=== PATIENT | male | born 1935 | race Caucasian/White ===

== ENCOUNTER 2018-04-04 12:33 | Emergency (ER) | payer OTHER ==
[~2018-04-04] VITALS: Ht 198.1 cm; Wt 116.7 kg
[~2018-04-04 12:33] MED LIST: ASPI81TA28 PO; ATOR-22 PO; DOCU-94 PO; DXY100 PO; FRS/40 PO; METO50TA16 PO; NTRGSL/4 UT; POTA20TA13 PO; PREN1CAP7 PO; SENN-48 PO
[2018-04-04 12:43] VITALS: Ht 198.1 cm; Wt 116.7 kg
--- NOTE | 2018-04-04 12:51 | EMERGENCY ROOM VISIT NOTE ---
History Report prepared by Emyibpa: Prasanna Mckeon Under the Supervision of: Dr. Tio Collins M.D. First contact with patient: 12:43 Chief Complaint: NOSE BLEED (MINOR) Stated Complaint: NOSE BLEED History of Present Illness The patient is a 82 year old male who presents to the Emergency Room with complaints of persistent epistaxis that began an hour ago. The patient states he did have an episode of epistaxis last night, but states that the episode had resolved. The patient states that he was washing his face this morning when he noticed his the right side of his nose began to bleed. He reports that when he was washing his face, he did not hit his nose. The patient states he was not able to get the bleeding to stop for an hour. He reports that he currently takes Aspirin and has not had any blood thinners within the last year. The patient denies chest pain, shortness of breath, a headache, and any other pain. No recent trauma. He denies a history of nasal surgeries. The patient reports a history of Parkinson's disease. 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 A total of ten systems were reviewed and were otherwise negative. Past Medical & Surgical Medical Problems: (1) Elevated troponin (2) Hypoxemia Surgical Problems: (1) Aortocoronary bypass status Family History Patient reports no known family medical history. Social History Smoking Status: Never Smoker Housing Status: lives alone Current/Historical Medications Scheduled Aspirin (Aspirin Ec), 162 MG PO HOLD Atorvastatin (Lipitor), 20 MG PO QPM Carbidopa/Levodopa (Sinemet 10MG/100MG), 1 TAB PO TID Donepezil Hydrochloride (Donepezil Hcl), 5 MG PO BID Furosemide (Lasix), 20 MG PO DAILY Metoprolol Tartrate (Lopressor) (Lopressor), 25 MG PO BID Nitroglycerin (Nitrostat), 0.4 MG UT PRN Potassium Chloride Microencaps (Potassium Chloride Er), 1 TAB PO DAILY Allergies Coded Allergies: No Known Allergies (Unverified , 04/04/18) Physical Exam Vital Signs Date Time Temp Pulse Resp B/P (MAP) Pulse Ox O2 Delivery O2 Flow Rate FiO2 04/04/18 13:52 60 20 117/74 95 04/04/18 12:43 36.9 61 20 142/91 95 Room Air Physical Exam Physical Exam GENERAL: He is oriented to person, place, and time. He appears well-developed and well-nourished. He does not appear distressed. ____ HENT: Exam performed. Head: Normocephalic and atraumatic. Right Ear: External ear normal. No mastoid tenderness. Left Ear: External ear normal. No mastoid tenderness. . Nose: No active bleeding from either nare when examined with nasal speculum and head lamp. Mouth/Throat: The oropharynx is clear and moist. No trismus in the jaw. No dental abscesses or uvula swelling. No oropharyngeal exudate or tonsillar abscesses. No blood in posterior pharynx. ____ EYES: Conjunctivae and EOM are normal. Pupils are equal, round, and reactive to light. Right eye exhibits no discharge. Left eye exhibits no discharge. No scleral icterus. ____ NECK: Normal range of motion. Neck supple. No JVD present. No spinous process tenderness present. No carotid bruit present. No rigidity. No tracheal deviation and normal range of motion present. No Brudzinski's sign and no Kernig 's sign noted. ____ CV: Normal rate, regular rhythm, normal heart sounds and intact distal pulses. There is no peripheral edema. Palpable radial pulses bue. ____ PULM/CHEST: Effort normal and breath sounds normal. No respiratory distress. No stridor. He has no wheezes. He has no rales. Chest Wall: He exhibits no tenderness. ____ ABD: The abdomen is soft. Bowel sounds are normal. He has no distension. No mass is present. There is no tenderness. There is no rebound, no guarding, no Ac's sign and no tenderness at McBurney's point. Rovsig negative MUSC/SKEL: Normal range of motion. There is no peripheral edema, tenderness or deformity. LYMPH: No cervical adenopathy. ____ NEURO: He is alert and oriented to person, place, and time. He has normal strength. No cranial nerve deficit or sensory deficit. Coordination and gait normal. GCS eye subscore is 4. GCS verbal subscore is 5. GCS motor subscore is 6. Cerebellar tests wnl. ____ SKIN: Skin is warm and dry. He is not diaphoretic. ____ PSYCH: He has a normal mood and affect. His behavior is normal. Judgment and thought content normal. ____ Medical Decision & Procedures ED Course 1244: The patient was evaluated in room A02. A complete history and physical exam was performed. No active bleeding at this point, we will continue to monitor the patient. 1327: I reevaluated the patient and he is resting comfortably. He is not having a nose bleed. He states he feels fine. I discussed the treatment plan, which he agrees to. The patient will be discharged with a follow up appointment. DISCHARGE - Plan of care discussed with patient and questions answered. The patient was given both verbal and printed discharge instructions. The patient verbalized understanding and ability to comply. The patient is to seek outpatient follow up as noted in the discharge instructions. The patient verbalized understanding and ability to comply. The patient is discharged in stable condition. The patient was instructed to return for worsening symptoms. Medical Decision I reevaluated the patient and he is resting comfortably. He is not having a nose bleed. He states he feels fine. I discussed the treatment plan, which he agrees to. The patient will be discharged with a follow up appointment. DISCHARGE - Plan of care discussed with patient and questions answered. The patient was given both verbal and printed discharge instructions. The patient verbalized understanding and ability to comply. The patient is to seek outpatient follow up as noted in the discharge instructions. The patient verbalized understanding and ability to comply. The patient is discharged in stable condition. The patient was instructed to return for worsening symptoms. Medication Reconcilliation Current Medication List: was personally reviewed by me Blood Pressure Screening Patient's blood pressure: Elevated blood pressure Blood pressure disposition: Referred to PCP Impression Primary Impression: Epistaxis Scribe Attestation The scribe's documentation has been prepared under my direction and personally reviewed by me in its entirety. I confirm that the note above accurately reflects all work, treatment, procedures, and medical decision making performed by me. The chart was completed utilizing [employer] voice recognition software. Grammatical errors, random word insertions, pronoun errors, and incomplete sentences are an occasional consequence of this system due to software limitations, ambient noise, and hardware issues. Any formal questions or concerns about the content, text, or information contained within the body of this dictation should be directly addressed to the physician for clarification. Departure Information Dispostion Home / Self-Care Referrals No Doctor, Assigned (PCP) Forms HOME CARE DOCUMENTATION FORM, IMPORTANT VISIT INFORMATION, WORK / SCHOOL INSTRUCTIONS Patient Instructions ED Nosebleed, [facility] Additional Instructions Return to the emergency department if you know starts bleeding again and does not resolve after applying 30 minutes of direct pressure.
[2018-04-04] MEDS ORDERED: METO25TA56 PO (13:42)
[2018-04-04] MEDS ORDERED: FURO-85 PO (13:42)
[2018-04-04] MEDS ORDERED: DONE1TAB25 PO (13:45)
[2018-04-04] MEDS ORDERED: CARB10TA5 PO (13:45)
[2018-04-04 13:52] VITALS: BP 117/74; PULSE 60; O2SAT 95
== END 2018-04-04 13:52 | disposition home or self-care (01) ==
LOC: EDBD 12:33 → C.EDA 12:34
DX: R04.0 Epistaxis (principal); G20 Parkinson's disease; Z79.82 Long term (current) use of aspirin; Z79.899 Other long term (current) drug therapy; Z95.1 Presence of aortocoronary bypass graft

== ENCOUNTER 2021-05-26 21:41 | Inpatient (IN) ==
[2021-05-26] MEDS ORDERED: ONDANSETRON INJ 2 MG/ML 2 ML VIAL ONE (21:48)
[2021-05-26] MEDS ORDERED: OPTIRAY 320 125ml IV ONE (22:00)
[2021-05-26] MEDS ORDERED: ACETAMINOPHEN 650 MG SUPP PR STA (22:04)
[2021-05-26] MEDS ORDERED: SODIUM CHLORIDE 0.9% 1000ML 500 ML IV ONE (22:04)
--- NOTE | 2021-05-26 22:11 | CT Scan Report ---
CT head/brain wo con CLINICAL HISTORY: 85 years-old Male with Stroke Like Symptoms. Acute strokelike symptoms TECHNIQUE: Multiple axial CT images of the head were obtained without contrast. A dose lowering tech nique was utilized adhering to the principles of ALARA. COMPARISON: CTA head neck of same day, head CT 08/29/2018 FINDINGS: No acute intracranial hemorrhage, midline shift, intracranial mass, hydrocephalus, territorial ischem ia or abnormal extra-axial collection. Age-related involutional changes. White matter hypodensities s uggestive of chronic microvascular ischemic disease. 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 The calvarium is intact. Chronic nasal bone fractures. Unremarkable soft tissues. The paranasal sinus es, mastoid air cells, and middle ear cavities are clear. IMPRESSION: No acute intracranial abnormality. ACT 112: Negative or not required by law. The above report was generated using voice recognition software. It may contain grammatical, syntax o r spelling errors. Electronically signed by: Mariano Wilcox M.D. 05/26/2021 10:09 PM
--- NOTE | 2021-05-26 22:21 | CT Scan Report ---
CT angio neck with con, CT angio head w con CLINICAL HISTORY: 85 years-old Male with Stroke Like Symptoms. Acute strokelike symptoms COMPARISON STUDY: Head CT of same day TECHNIQUE: Following the IV administration of 120 mL of Optiray, CT angiogram of the head and neck wa s performed from the aortic arch to the skull apex. Images are reviewed in the axial, sagittal, and c oronal planes. 3-D MIPS images are created and assessed. IV contrast was administered without complic ation. All measurements were calculated based on NASCET criteria. A dose lowering technique was util ized adhering to the principles of ALARA. 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 The imaged opacified pulmonary arterial tree is unremarka ble. Left subclavian pacer. Atherosclerosis of the thoracic aortic arch. Patency of the innominate an d imaged subclavian arteries. The common carotid arteries are widely patent. Atherosclerotic plaque o f the left greater than right carotid bulbs and proximal cervical segments of the internal carotid ar teries results in less than 50% stenosis bilaterally. Calcified plaque of the cavernous and supraclin oid segments. The middle and anterior cerebral arteries are patent. Hypoplastic right A1 segment. Cod ominant vertebral arteries. 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 The verte bral, basilar and posterior cerebral arteries are patent. origin of the right posterior cerebra l artery. The cerebral venous sinuses are patent. No pneumothorax. The lung apices are clear. Unremarkable soft tissues of the neck. Degenerative lemus es of the spine. Dental caries are noted within the left first mandibular molar. IMPRESSION: 1. 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 2. Atherosclerosis of the carotid bulbs results in less than 50% stenosis bilaterally. 3. Otherwise unremarkable CTA of the head and neck. ACT 112: Negative or not required by law. The above report was generated using voice recognition software. It may contain grammatical, syntax o r spelling errors. Electronically signed by: Mariano Wilcox M.D. 05/26/2021 10:20 PM
[2021-05-26 22:28] LABS: Basophils # (auto) 0.01 K/uL (0-0.2); Basophils % (auto) 0.1 %; Eosinophils # (auto) 0.03 K/uL (0-0.5); Eosinophils % (auto) 0.3 %; Hematocrit (blood only) 38.9 % (42-52); Hemoglobin 13.2 g/dL (14.0-18.0); Immature Granulocytes # (auto) 0.02 K/uL (0.00-0.02); Immature Granulocytes % (auto) 0.2 %; Lymphocytes # (auto) 0.63 K/uL (1.2-3.4); Lymphocytes % (auto) 6.1 %; Mean Corpuscular Hemoglobin 31.7 pg (25-34); Mean Corpuscular Hgb Conc 33.9 g/dL (32-36); Mean Corpuscular Volume 93.5 fL (80-100); Mean Platelet Volume 10.4 fL (7.4-10.4); Monocytes # (auto) 0.57 K/uL (0.11-0.59); Monocytes % (auto) 5.5 %; Neutrophils # (auto) 9.03 K/uL (1.4-6.5); Neutrophils % (auto) 87.8 %; Platelet Count 179 K/uL (130-400); RDW Coefficient of Variation 13.7 % (11.5-14.5); RDW Standard Deviation 46.9 fL (36.4-46.3); Red Blood Count 4.16 M/uL (4.7-6.1); White Blood Count 10.29 K/uL (4.8-10.8)
[2021-05-26 22:30] LABS: Base Excess VBG 0.5 mEq/L; pH VBG 7.42 (7.36-7.41)
--- NOTE | 2021-05-26 22:36 | Emergency Department Note ---
Impression & Plan AMS (altered mental status), Fever, Hypoxia, Acute UTI (urinary tract infection) ED Provider Note NAME: SHARON FRAGOSO AGE: 85 SEX: M : 1935 ARRIVES VIA: Ambulance INFORMANT: Patient, the patient's significant other, EMS personnel ED PROVIDER(S): Theron Calvin DO CHIEF COMPLAINT: Altered mental status HPI: The patient is an 85-year-old male who presented to the emergency department for an evaluation of altered mental status. The patient was made a stroke alert prior to arrival. Reportedly the patient had nausea vomiting and was falling to the left. The patient's significant other does give most of the history. Apparently the patient was in his normal state of health. He went to lay down at approximately 7 PM. He was then found between 8:20 PM and 8:30 PM by his significant other and was noted to be confused from his baseline. He has had multiple episodes of emesis. He was made a stroke alert prior to arrival and taken directly to CT. The patient himself offers no complaints. He is denying having any chest pain. He denies having any headaches. He denies having any abdominal pain. He said no recent urinary tract symptoms. He was helping his significant other to work earlier in the day and appeared to be at his baseline. The patient's symptoms are moderate to severe. ROS: See above HPI for pertinent positives & negatives. A total of 10 systems reviewed and were otherwise negative. PAST MEDICAL HISTORY: See Below PAST SURGICAL HISTORY: See Below FAMILY HISTORY: See Below SOCIAL HISTORY: See Below HOME MEDICATIONS: See Below ALLERGIES: See Below VITALS: See Below PHYSICAL EXAMINATION: GENERAL: The patient is awake and looking around the room but he seems somewhat listless. He answers questions slowly. EYES: The conjunctivae are clear. The pupils are round and reactive. EARS, NOSE, MOUTH AND THROAT: The nose is without any evidence of any deformity. NECK: The neck is nontender and supple. RESPIRATORY: Diminished breath sounds are noted throughout. There were rales at the right base. CARDIOVASCULAR: Regular rate and rhythm was noted to auscultation. There was a rub noted to auscultation. GASTROINTESTINAL: The abdomen is soft. Abdomen is nontender. MUSCULOSKELETAL/EXTREMITIES: There is no evidence of gross deformity full range of motion is noted in the hips and shoulders. SKIN: Skin was cool and dry. There is pedal edema bilaterally. NEUROLOGIC: Patient is answering questions. He appears to be oriented to person and place. The patient recognizes his and calls her by name. MEDICAL DECISION MAKING: The patient is an 85-year-old male who presented to the emergency department for an evaluation of altered mental status and possible strokelike symptoms. The patient was made a stroke alert prior to arrival. The patient was noted to have a fever. I discussed the patient's laboratory and radiographic studies with him as well as his significant other. The patient was hypoxic and had abnormal lung sounds. Chest x-ray did not show anything that looked consistent with a definite pneumonia. He also appeared to have cloudy urine and hematuria. It is possible this represents urinary tract infection. He was treated with IV fluids as well as IV antibiotics. The IV antibiotic choice was one that would cover both pulmonary as well as urinary source. I discussed the patient's condition with the on-call [facility]. They have agreed to evaluate the patient in the emergency department for further management and disposition. At this time the patient would not be a candidate for TPA once we realized his last known well time was 7 PM. He also does not appear to have a definite large vessel occlusion. Triage Nursing notes reviewed. Prior medical records reviewed Vital Signs: reviewed and remarkable for hypoxia. Differential diagnosis: Infection, hypoglycemia, electrolyte abnormalities, overdose, toxicologic, cardiac sources, intracerebral event, neurologic, trauma, as well as other pathologies. ER treatment provided: See below Diagnostics interpreted by me: ECG: EKG was obtained in the emergency department. My interpretation is sinus rhythm at 79 bpm. There is a first-degree AV block noted. Right bundle branch block pattern was noted. This was compared to a tracing from August 29, 2018. Paced atrial rhythm was noted on the previous tracing otherwise no significant changes are noted. Cardiac Monitoring: An order was placed for continuous cardiac monitoring. The monitor shows a rate of 65 bpm with sinus rhythm. Laboratory studies: As stated above and show below. Imaging studies: See below Consultation(s): I discussed this case with Dr. Alexander who is on-call for the [facility] neurology group. At this time the patient appears to have more of a septic picture. I discussed this case with Dr. Valenzuela who is on-call for the [facility] group. They will evaluate the patient in the emergency department for further management and disposition. Past Med/Surg History Medical History Elevated troponin Hypoxemia Pacemaker Pneumonia Surgical History Aortocoronary bypass status Hx of heart bypass surgery Social History Smoking Status: Never smoker Preferred Language: Pashto Communication Ability: Effective Visual Impairment: No Limitations Hearing Ability: Normal Feels Safe at Home: Yes Allergies Allergies Allergy/AdvReac Type Severity Reaction Status Date / Time No Known Allergies Allergy Unverified 05/26/21 22:15 Home Meds Home Medications Medication Instructions Recorded Confirmed aspirin [Aspir-Low] 81 mg PO DAILY 05/26/21 05/26/21 atorvastatin [Lipitor] 20 mg PO DAILY 05/26/21 05/26/21 carbidopa-levodopa 1 tab PO BID 05/26/21 05/26/21 donepezil 5 mg PO DAILY 05/26/21 05/26/21 furosemide 20 mg PO DAILY 05/26/21 05/26/21 guar gum [Benefiber (guar gum)] 1 tbsp PO DAILY 05/26/21 05/26/21 metoprolol tartrate 25 mg PO DAILY 05/26/21 05/26/21 Results & Data (ED) Vital Signs Vital Signs - 24 hr 05/26/21 22:02 05/26/21 22:17 05/26/21 22:22 Temperature 38.8 C H Temperature Source Temporal Artery Scan Pulse Rate 91 H 81 76 Pulse Rate [Right Finger] Pulse Rate from SpO2 Sensor 76 Respiratory Rate 16 Respiratory Depth Blood Pressure 136/78 138/79 Blood Pressure [Right Arm] Blood Pressure Mean 97 98 Blood Pressure Mean [Right Arm] Blood Pressure Position Lying Blood Pressure Position [Right Arm] Pulse Oximetry 88 L 90 Oxygen Delivery Method Nasal Cannula Oxygen Flow Rate 3 Sepsis Recent Fever Within 48 Hours Yes Sepsis New/Unexplained Change in Mental Status Yes Sepsis Action Taken by Nursing Physician Notified Oxygen Flow Rate - Titration 4 Pulse Oximetry Post Tiitration 90 05/26/21 22:30 05/26/21 22:37 05/26/21 22:45 Temperature Temperature Source Pulse Rate 72 63 Pulse Rate [Right Finger] 71 Pulse Rate from SpO2 Sensor 63 57 L Respiratory Rate 18 Respiratory Depth Normal Blood Pressure 154/82 H 120/68 Blood Pressure [Right Arm] 154/82 H Blood Pressure Mean 106 85 Blood Pressure Mean [Right Arm] 106 Blood Pressure Position Blood Pressure Position [Right Arm] Lying Pulse Oximetry 91 93 92 Oxygen Delivery Method Nasal Cannula Oxygen Flow Rate 3 4 3 Sepsis Recent Fever Within 48 Hours Sepsis New/Unexplained Change in Mental Status Sepsis Action Taken by Nursing Oxygen Flow Rate - Titration Pulse Oximetry Post Tiitration 05/27/21 00:10 Temperature 37.1 C Temperature Source Oral Pulse Rate Pulse Rate [Right Finger] Pulse Rate from SpO2 Sensor Respiratory Rate Respiratory Depth Blood Pressure Blood Pressure [Right Arm] Blood Pressure Mean Blood Pressure Mean [Right Arm] Blood Pressure Position Blood Pressure Position [Right Arm] Pulse Oximetry Oxygen Delivery Method Oxygen Flow Rate Sepsis Recent Fever Within 48 Hours Sepsis New/Unexplained Change in Mental Status Sepsis Action Taken by Nursing Oxygen Flow Rate - Titration Pulse Oximetry Post Tiitration Home Medications Current Medication List: was personally reviewed by me Laboratory Data Attestation: I reviewed the patient's lab results. Result diagrams: 05/26/21 22:05 05/26/21 22:05 Lab Results 05/26/21 05/26/21 05/26/21 Range/Units 22:05 22:05 22:05 WBC 10.29 (4.8-10.8) K/uL RBC 4.16 L (4.7-6.1) M/uL Hgb 13.2 L (14.0-18.0) g/dL Hct 38.9 L (42-52) % MCV 93.5 (80-100) fL MCH 31.7 (25-34) pg MCHC 33.9 (32-36) g/dL RDW Std Deviation 46.9 H (36.4-46.3) fL RDW Coeff of Lacey 13.7 (11.5-14.5) % Plt Count 179 (130-400) K/uL MPV 10.4 (7.4-10.4) fL Immature Gran % (Auto) 0.2 % Neut % (Auto) 87.8 % Lymph % (Auto) 6.1 % [place] % (Auto) 5.5 % Eos % (Auto) 0.3 % Baso % (Auto) 0.1 % Neut # (Auto) 9.03 H (1.4-6.5) K/uL Lymph # (Auto) 0.63 L (1.2-3.4) K/uL [place] # (Auto) 0.57 (0.11-0.59) K/uL Eos # (Auto) 0.03 (0-0.5) K/uL Baso # (Auto) 0.01 (0-0.2) K/uL Immature Gran # (Auto) 0.02 (0.00-0.02) K/uL PT 11.1 (9.0-12.0) Seconds INR 1.1 (0.9-1.1) APTT 24.8 (21.0-31.0) Seconds PTT Ratio 0.9 VBG pH (7.36-7.41) VBG pCO2 (38-50) mmHg VBG pO2 mmHg VBG HCO3 mmol/L VBG O2 Saturation % VBG Base Excess mEq/L Barometric Pressure mm/Hg Sodium 138 (136-145) mmol/L Potassium 3.4 L (3.5-5.1) mmol/L Chloride 105 (98-107) mmol/L Carbon Dioxide 27 (21-32) mmol/L Anion Gap 6.0 (3-11) BUN 18 (7-18) mg/dl Creatinine 0.93 (0.6-1.4) mg/dl Est Cr Clr Drug Dosing 75.1 ml/min Est GFR ( Amer) 86.5 ml/min Est GFR (Non-Af Amer) 74.6 ml/min BUN/Creatinine Ratio 18.7 (10-20) Glucose 126 H (70-99) mg/dl POC Glucose (70-99) mg/dl Lactate (0.4-2.0) mmol/L Calcium 8.5 (8.5-10.1) mg/dl Magnesium 1.6 L (1.8-2.4) mg/dl Total Bilirubin 0.6 (0.2-1) mg/dl AST 16 (15-37) U/L ALT 16 (12-78) U/L Alkaline Phosphatase 76 (45-117) U/L Troponin I 0.016 (0-0.045) ng/ml Total Protein 6.9 (6.4-8.2) gm/dl Albumin 3.2 L (3.4-5.0) gm/dl Globulin 3.6 (2.5-4.0) gm/dl Albumin/Globulin Ratio 0.9 (0.9-2) Urine Color Urine Appearance (Clear) Urine pH (4.5-7.5) Ur Specific [place] (1.000-1.030) Urine Protein (Negative) Urine Glucose (UA) (Negative) Urine Ketones (Negative) Urine Blood (Negative) Urine Nitrite (Negative) Urine Bilirubin (Negative) Urine Urobilinogen (Negative) Ur Leukocyte Esterase (Negative) Urine WBC (Auto) (0-5) /hpf Urine RBC (Auto) (0-4) /hpf U Hyaline Cast (Auto) (0-5) /lpf U Epithel Cells (Auto) (0-5) /lpf Urine Bacteria (Auto) (Negative) Ur Renal Epithelial Cell COVID-19 Eval Order SARS-CoV-2 (PCR) (Negative) 05/26/21 05/26/21 05/26/21 Range/Units 22:18 22:18 22:19 WBC (4.8-10.8) K/uL RBC (4.7-6.1) M/uL Hgb (14.0-18.0) g/dL Hct (42-52) % MCV (80-100) fL MCH (25-34) pg MCHC (32-36) g/dL RDW Std Deviation (36.4-46.3) fL RDW Coeff of Lacey (11.5-14.5) % Plt Count (130-400) K/uL MPV (7.4-10.4) fL Immature Gran % (Auto) % Neut % (Auto) % Lymph % (Auto) % [place] % (Auto) % Eos % (Auto) % Baso % (Auto) % Neut # (Auto) (1.4-6.5) K/uL Lymph # (Auto) (1.2-3.4) K/uL [place] # (Auto) (0.11-0.59) K/uL Eos # (Auto) (0-0.5) K/uL Baso # (Auto) (0-0.2) K/uL Immature Gran # (Auto) (0.00-0.02) K/uL PT (9.0-12.0) Seconds INR (0.9-1.1) APTT (21.0-31.0) Seconds PTT Ratio VBG pH 7.42 H (7.36-7.41) VBG pCO2 39 (38-50) mmHg VBG pO2 45 mmHg VBG HCO3 25 mmol/L VBG O2 Saturation 84.0 % VBG Base Excess 0.5 mEq/L Barometric Pressure 732.7 mm/Hg Sodium (136-145) mmol/L Potassium (3.5-5.1) mmol/L Chloride (98-107) mmol/L Carbon Dioxide (21-32) mmol/L Anion Gap (3-11) BUN (7-18) mg/dl Creatinine (0.6-1.4) mg/dl Est Cr Clr Drug Dosing ml/min Est GFR ( Amer) ml/min Est GFR (Non-Af Amer) ml/min BUN/Creatinine Ratio (10-20) Glucose (70-99) mg/dl POC Glucose 157 H (70-99) mg/dl Lactate 2.1 H* (0.4-2.0) mmol/L Calcium (8.5-10.1) mg/dl Magnesium (1.8-2.4) mg/dl Total Bilirubin (0.2-1) mg/dl AST (15-37) U/L ALT (12-78) U/L Alkaline Phosphatase (45-117) U/L Troponin I (0-0.045) ng/ml Total Protein (6.4-8.2) gm/dl Albumin (3.4-5.0) gm/dl Globulin (2.5-4.0) gm/dl Albumin/Globulin Ratio (0.9-2) Urine Color Urine Appearance (Clear) Urine pH (4.5-7.5) Ur Specific [place] (1.000-1.030) Urine Protein (Negative) Urine Glucose (UA) (Negative) Urine Ketones (Negative) Urine Blood (Negative) Urine Nitrite (Negative) Urine Bilirubin (Negative) Urine Urobilinogen (Negative) Ur Leukocyte Esterase (Negative) Urine WBC (Auto) (0-5) /hpf Urine RBC (Auto) (0-4) /hpf U Hyaline Cast (Auto) (0-5) /lpf U Epithel Cells (Auto) (0-5) /lpf Urine Bacteria (Auto) (Negative) Ur Renal Epithelial Cell COVID-19 Eval Order SARS-CoV-2 (PCR) (Negative) 05/26/21 05/26/21 05/26/21 Range/Units 22:43 Unknown Unknown WBC (4.8-10.8) K/uL RBC (4.7-6.1) M/uL Hgb (14.0-18.0) g/dL Hct (42-52) % MCV (80-100) fL MCH (25-34) pg MCHC (32-36) g/dL RDW Std Deviation (36.4-46.3) fL RDW Coeff of Lacey (11.5-14.5) % Plt Count (130-400) K/uL MPV (7.4-10.4) fL Immature Gran % (Auto) % Neut % (Auto) % Lymph % (Auto) % [place] % (Auto) % Eos % (Auto) % Baso % (Auto) % Neut # (Auto) (1.4-6.5) K/uL Lymph # (Auto) (1.2-3.4) K/uL [place] # (Auto) (0.11-0.59) K/uL Eos # (Auto) (0-0.5) K/uL Baso # (Auto) (0-0.2) K/uL Immature Gran # (Auto) (0.00-0.02) K/uL PT (9.0-12.0) Seconds INR (0.9-1.1) APTT (21.0-31.0) Seconds PTT Ratio VBG pH (7.36-7.41) VBG pCO2 (38-50) mmHg VBG pO2 mmHg VBG HCO3 mmol/L VBG O2 Saturation % VBG Base Excess mEq/L Barometric Pressure mm/Hg Sodium (136-145) mmol/L Potassium (3.5-5.1) mmol/L Chloride (98-107) mmol/L Carbon Dioxide (21-32) mmol/L Anion Gap (3-11) BUN (7-18) mg/dl Creatinine (0.6-1.4) mg/dl Est Cr Clr Drug Dosing ml/min Est GFR ( Amer) ml/min Est GFR (Non-Af Amer) ml/min BUN/Creatinine Ratio (10-20) Glucose (70-99) mg/dl POC Glucose (70-99) mg/dl Lactate (0.4-2.0) mmol/L Calcium (8.5-10.1) mg/dl Magnesium (1.8-2.4) mg/dl Total Bilirubin (0.2-1) mg/dl AST (15-37) U/L ALT (12-78) U/L Alkaline Phosphatase (45-117) U/L Troponin I (0-0.045) ng/ml Total Protein (6.4-8.2) gm/dl Albumin (3.4-5.0) gm/dl Globulin (2.5-4.0) gm/dl Albumin/Globulin Ratio (0.9-2) Urine Color Yellow Urine Appearance Clear (Clear) Urine pH 5.0 (4.5-7.5) Ur Specific [place] 1.045 H (1.000-1.030) Urine Protein Negative (Negative) Urine Glucose (UA) Negative (Negative) Urine Ketones Negative (Negative) Urine Blood 3+ H (Negative) Urine Nitrite Negative (Negative) Urine Bilirubin Negative (Negative) Urine Urobilinogen Negative (Negative) Ur Leukocyte Esterase 1+ H (Negative) Urine WBC (Auto) 5-10 H (0-5) /hpf Urine RBC (Auto) >30 H (0-4) /hpf U Hyaline Cast (Auto) 1-5 (0-5) /lpf U Epithel Cells (Auto) >30 H (0-5) /lpf Urine Bacteria (Auto) Negative (Negative) Ur Renal Epithelial Cell Not Reportable COVID-19 Eval Order Covid19 at [facility] SARS-CoV-2 (PCR) NEGATIVE (Negative) Administered Medications Discontinued Medications Acetaminophen (Acetaminophen 650 Mg Supp) 650 mg LA NOW STA Stop: 05/26/21 22:05 Last Admin: 05/26/21 22:30 Dose: 650 mg Documented by: [id number] Sodium Chloride (Nss 1000ml) 500 mls @ 999 mls/hr IV .Q31M ONE Stop: 05/26/21 22:34 Last Infusion: 05/26/21 23:00 Dose: 0 mls/hr Documented by: [id number] Admin: 05/26/21 22:23 Dose: 999 mls/hr Documented by: [id number] Sodium Chloride (Nss) 500 mls @ 999 mls/hr IV .Q31M ONE Stop: 05/26/21 23:27 Last Infusion: 05/27/21 00:02 Dose: 0 mls/hr Documented by: [id number] Admin: 05/26/21 23:07 Dose: 999 mls/hr Documented by: [id number] Piperacillin Sod/Tazobactam Sod (Zosyn) 4.5 gm in 120 mls @ 240 mls/hr IV NOW ONE Stop: 05/26/21 23:26 Last Infusion: 05/27/21 00:00 Dose: 0 mls/hr Documented by: [id number] Admin: 05/26/21 23:07 Dose: 240 mls/hr Documented by: [id number] Promethazine HCl (Phenergan) 6.25 mg in 50.25 mls @ 201 mls/hr IV NOW STA Stop: 05/26/21 23:16 Last Infusion: 05/27/21 00:01 Dose: 0 mls/hr Documented by: [id number] Admin: 05/26/21 23:30 Dose: 201 mls/hr Documented by: [id number] Ioversol (Optiray 320 125ml) 120 ml IV ONCE ONE Stop: 05/26/21 22:01 Last Admin: 05/26/21 22:01 Dose: 120 ml Documented by: [id number] Ondansetron HCl (Ondansetron Inj 2 Mg/Ml 2 Ml Vial) Confirm Administered Dose 4 mg .ROUTE .STK-MED ONE Stop: 05/26/21 21:49 Last Admin: 05/26/21 22:23 Dose: 4 mg Documented by: [id number] Imaging Data Radiologist's Impression: Chest X-Ray 05/26/21 21:39 XR chest 1V portable HISTORY: 85 years-old Male Stroke Like Symptoms acute strokelike symptoms COMPARISON: Chest radiograph 11/03/2015 TECHNIQUE: Portable AP view of the chest FINDINGS: Cardiac silhouette is enlarged. Prior median sternotomy with CABG. Left subclavian pacer. Chronic interstitial coarsening. No pneumothorax, large pleural effusion or overt pulmonary edema. Lateral left lung base opacity suggests atelectasis/scarring. Surgical clips project over the abdominal left upper quadrant. Degenerative changes of the shoulders and spine. IMPRESSION: Cardiomegaly without acute process. ACT 112: Negative or not required by law. The above report was generated using voice recognition software. It may contain grammatical, syntax or spelling errors. Electronically signed by: Mariano Wilcox M.D. 05/26/2021 10:[address] 05/26/21 21:39 CT head/brain wo con CLINICAL HISTORY: 85 years-old Male with Stroke Like Symptoms. Acute strokelike symptoms TECHNIQUE: Multiple axial CT images of the head were obtained without contrast. A dose lowering technique was utilized adhering to the principles of ALARA. COMPARISON: CTA head neck of same day, head CT 08/29/2018 FINDINGS: No acute intracranial hemorrhage, midline shift, intracranial mass, hydrocephalus, territorial ischemia or abnormal extra-axial collection. Age- related involutional changes. White matter hypodensities suggestive of chronic microvascular ischemic disease. 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 The calvarium is intact. Chronic nasal bone fractures. Unremarkable soft tissues. The paranasal sinuses, mastoid air cells, and middle ear cavities are clear. IMPRESSION: No acute intracranial abnormality. ACT 112: Negative or not required by law. The above report was generated using voice recognition software. It may contain grammatical, syntax or spelling errors. Electronically signed by: Mariano Wilcox M.D. 05/26/2021 10:09 PM Head CTA 05/26/21 21:39 CT angio neck with con, CT angio head w con CLINICAL HISTORY: 85 years-old Male with Stroke Like Symptoms. Acute strokelike symptoms COMPARISON STUDY: Head CT of same day TECHNIQUE: Following the IV administration of 120 mL of Optiray, CT angiogram of the head and neck was performed from the aortic arch to the skull apex. Images are reviewed in the axial, sagittal, and coronal planes. 3-D MIPS images are created and assessed. IV contrast was administered without complication. All measurements were calculated based on NASCET criteria. A dose lowering technique was utilized adhering to the principles of ALARA. 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 The imaged opacified pulmonary arterial tree is unremarkable. Left subclavian pacer. Atherosclerosis of the thoracic aortic arch. Patency of the innominate and imaged subclavian arteries. The common carotid arteries are widely patent. Atherosclerotic plaque of the left greater than right carotid bulbs and proximal cervical segments of the internal carotid arteries results in less than 50% stenosis bilaterally. Calcified plaque of the cavernous and supraclinoid segments. The middle and anterior cerebral arteries are patent. Hypoplastic right A1 segment. Codominant vertebral arteries. 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 The vertebral, basilar and posterior cerebral arteries are patent. origin of the right posterior cerebral artery. The cerebral venous sinuses are patent. No pneumothorax. The lung apices are clear. Unremarkable soft tissues of the neck. Degenerative changes of the spine. Dental caries are noted within the left first mandibular molar. IMPRESSION: 1. 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 2. Atherosclerosis of the carotid bulbs results in less than 50% stenosis bilaterally. 3. Otherwise unremarkable CTA of the head and neck. ACT 112: Negative or not required by law. The above report was generated using voice recognition software. It may contain grammatical, syntax or spelling errors. Electronically signed by: Mariano Wilcox M.D. 05/26/2021 10:20 PM Neck CTA 05/26/21 21:39 CT angio neck with con, CT angio head w con CLINICAL HISTORY: 85 years-old Male with Stroke Like Symptoms. Acute strokelike symptoms COMPARISON STUDY: Head CT of same day TECHNIQUE: Following the IV administration of 120 mL of Optiray, CT angiogram of the head and neck was performed from the aortic arch to the skull apex. Images are reviewed in the axial, sagittal, and coronal planes. 3-D MIPS images are created and assessed. IV contrast was administered without complication. All measurements were calculated based on NASCET criteria. A dose lowering technique was utilized adhering to the principles of ALARA. 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 The imaged opacified pulmonary arterial tree is unremarkable. Left subclavian pacer. Atherosclerosis of the thoracic aortic arch. Patency of the innominate and imaged subclavian arteries. The common carotid arteries are widely patent. Atherosclerotic plaque of the left greater than right carotid bulbs and proximal cervical segments of the internal carotid arteries results in less than 50% stenosis bilaterally. Calcified plaque of the cavernous and supraclinoid segments. The middle and anterior cerebral arteries are patent. Hypoplastic right A1 segment. Codominant vertebral arteries. 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 The vertebral, basilar and posterior cerebral arteries are patent. origin of the right posterior cerebral artery. The cerebral venous sinuses are patent. No pneumothorax. The lung apices are clear. Unremarkable soft tissues of the neck. Degenerative changes of the spine. Dental caries are noted within the left first mandibular molar. IMPRESSION: 1. 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 2. Atherosclerosis of the carotid bulbs results in less than 50% stenosis bilaterally. 3. Otherwise unremarkable CTA of the head and neck. ACT 112: Negative or not required by law. The above report was generated using voice recognition software. It may contain grammatical, syntax or spelling errors. Electronically signed by: Mariano Wilcox M.D. 05/26/2021 10:20 PM Discharge Plan Visit Data Chief Complaint: Stroke/CVA Symptoms Stated Complaint: Stroke Alert ED Provider: Theron Calvin Discharge Problem: AMS (altered mental status), Fever, Hypoxia, Acute UTI (urinary tract infection) Patient Disposition: Admitted As Inpatient Condition: Good Forms Stand Alone Forms: My [facility] Prescriptions Prescriptions: No Action atorvastatin [Lipitor] 20 mg tablet 20 mg PO DAILY RF: 0 donepezil 5 mg tablet 5 mg PO DAILY RF: 0 aspirin [Aspir-Low] 81 mg Tablet,Delayed Release (Dr/Ec) 81 mg PO DAILY RF: 0 Benefiber (guar gum) Packet 1 tbsp PO DAILY RF: 0 furosemide 20 mg tablet 20 mg PO DAILY RF: 0 carbidopa-levodopa 25-100 mg tablet 1 tab PO BID RF: 0 metoprolol tartrate 25 mg tablet 25 mg PO DAILY RF: 0 Referrals Referrals: Claribel Gaines MD [Primary Care Provider] - Discharge Problem: AMS (altered mental status) Qualifiers: Altered mental status type: unspecified Qualified Code(s): R41.82 - Altered mental status, unspecified Fever Qualifiers: Fever type: unspecified Qualified Code(s): R50.9 - Fever, unspecified
[2021-05-26 22:38] LABS: INR 1.1 (0.9-1.1); Partial Thromboplastin Ratio 0.9; Partial Thromboplastin Time 24.8 Seconds (21.0-31.0); Prothrombin Time 11.1 Seconds (9.0-12.0)
[2021-05-26 22:45] LABS: Albumin Level 3.2 gm/dl (3.4-5.0); BUN Creatinine Ratio 18.7 (10-20); Calcium 8.5 mg/dl (8.5-10.1); Creatinine Clr Calc Pharmacy 75.1 ml/min; Est GFR (African American) 86.5 ml/min; Est GFR (Non-African American) 74.6 ml/min; Magnesium 1.6 mg/dl (1.8-2.4); Potassium 3.4 mmol/L (3.5-5.1)
--- NOTE | 2021-05-26 22:46 | XRay Report ---
XR chest 1V portable HISTORY: 85 years-old Male Stroke Like Symptoms acute strokelike symptoms COMPARISON: Chest radiograph 11/03/2015 TECHNIQUE: Portable AP view of the chest FINDINGS: Cardiac silhouette is enlarged. Prior median sternotomy with CABG. Left subclavian pacer. Chronic int erstitial coarsening. No pneumothorax, large pleural effusion or overt pulmonary edema. Lateral left lung base opacity suggests atelectasis/scarring. Surgical clips project over the abdominal left upper quadrant. Degenerative changes of the shoulders and spine. IMPRESSION: Cardiomegaly without acute process. ACT 112: Negative or not required by law. The above report was generated using voice recognition software. It may contain grammatical, syntax o r spelling errors. Electronically signed by: Mariano Wilcox M.D. 05/26/2021 10:45 PM
[2021-05-26 22:49] LABS: Albumin Globulin Ratio 0.9 (0.9-2); Bilirubin,Total 0.6 mg/dl (0.2-1); Globulin 3.6 gm/dl (2.5-4.0); Total Protein 6.9 gm/dl (6.4-8.2); Troponin I 0.016 ng/ml (0-0.045)
[2021-05-26] MEDS ORDERED: SODIUM CHLORIDE 0.9% 500 ML IV ONE (22:57)
[2021-05-26] MEDS ORDERED: PIPERACILL/TAZOBAC CONSULT ACTIVE PRN (22:57)
[2021-05-26] MEDS ORDERED: PIPERACILLIN/TAZOBACTAM 4.5 GM/120 ML BAG IV ONE (22:57)
[2021-05-26] MEDS ORDERED: PROMETHAZINE 6.25 MG/50.25 ML BAG IV STA (23:02)
[2021-05-26 23:11] LABS: Appearance Urine Clear (Clear); Bacteria Urine Automated Negative (Negative); Bilirubin Urine Negative (Negative); Blood Urine 3+ (Negative); Color Urine Yellow; Epithelial Cell Urine Auto >30 /lpf (0-5); Glucose Urine UA Negative (Negative); Ketones Urine Negative (Negative); Leukocyte Esterase Urine 1+ (Negative); Nitrite Urine Negative (Negative); Protein Urine Negative (Negative); RBC Urine Automated >30 /hpf (0-4); Specific Gravity Urine 1.045 (1.000-1.030); Urobilinogen Urine Negative (Negative)
[2021-05-27] MEDS ORDERED: ONDANSETRON INJ 2 MG/ML 2 ML VIAL IV PRN (03:34)
[2021-05-27] MEDS ORDERED: VANCOMYCIN HCL 1,000 MG in SODIUM CHLORIDE 0.9% 250 ML IV SCH (03:34)
[2021-05-27] MEDS ORDERED: VANCOMYCIN CONSULT ACTIVE PRN (03:34)
[2021-05-27] MEDS ORDERED: PHARMACIST DISCHARGE MED REC CONSULT PRN (03:34)
[2021-05-27] MEDS ORDERED: POLYETHYLENE (MIRALAX) 17 GM PACK PO PRN (03:34)
[2021-05-27] MEDS ORDERED: ACETAMINOPHEN 325 MG TAB PO PRN (03:34)
[2021-05-27] MEDS ORDERED: NITROGLYCERIN SL 0.4 MG/TAB TAB SL PRN (03:34)
[2021-05-27] MEDS ORDERED: SODIUM CHLORIDE 0.9% 1000ML 1,000 ML IV SCH (03:34)
--- NOTE | 2021-05-27 03:48 | History and Physical Report ---
DATE OF ADMISSION: 05/27/2021. CHIEF COMPLAINT: Confusion. HISTORY OF PRESENT ILLNESS: This is an 85-year-old male with past medical history significant for hyperlipidemia, dyspnea on exertion, history of pleural effusion, history of VT, history of atrial fibrillation, aortic aneurysm, hypertension, syncope, sinus bradycardia, severe aortic stenosis s/p bioprosthetic valve , aortic replacement for aortic aneurysm ,status post pacemaker/ICD, Lewy body dementia, history of retinal hemorrhage, macular degeneration, acute hemolytic anemia. Lives at home with his . Ambulatory status is not that great as per the . Today he went to see his neurologist for his Lewy body dementia and he also complains of hallucinations at the nighttime, and in the morning. He was advised to take Seroquel, but he declined, and advised to increase his dose of Aricept and also Sinemet, but he seems to have declined, and there is a plan to see neuropsychologist also. After coming home, as per the he was fine. The last she talked to him at 7:00 p.m. After that, the next time she saw him was around 8:20 p.m. and he was very shaky, unsteady, and she could not understand what he was talking and he was brought to the hospital. 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 Currently, the patient is drowsy, not able to get any history from the patient. He can move his extremities to stimuli. says otherwise he did not complain of any headache or neck pain or any chest pain. He has a lot of vomiting during this episode, but no blood in the vomitus. She thinks she saw some hematuria early in the morning when he wiped. No complaints of any pain. Generally, his appetite is okay. He eats regular food. Currently, hemodynamics are stable. ALLERGIES: No known drug allergies. PAST MEDICAL HISTORY: As mentioned above. PAST SURGICAL HISTORY: Balloon angioplasty, CABG, coronary angiography, pacemaker, repair of detached retina. MEDICATIONS: The patient is on aspirin 81 mg p.o. daily, Lipitor 20 mg p.o. daily, carbidopa/levodopa 1 tablet p.o. b.i.d., donepezil 5 mg p.o. daily, Lasix 20 mg p.o. daily, Benefiber 1 tablespoon p.o. daily, metoprolol tartrate 25 mg p.o. daily. FAMILY HISTORY: Significant for sister has stomach cancer; mother has lupus. SOCIAL HISTORY: , no smoking. Alcohol occasionally. No drug use. REVIEW OF SYSTEMS: As per HPI. Review of systems is unobtainable at this time as the patient is drowsy and confused. PHYSICAL EXAMINATION: VITAL SIGNS: Temperature max 38.8, pulse of 63, respiratory rate 18, blood pressure 120/68, oxygen 92% on nasal cannula. HEENT: Head atraumatic. Could not examine the pupils as the patient has difficulty opening the eyes. No obvious facial droop seen. NECK: No JVD. No neck masses seen. CARDIOVASCULAR: S1 and S2 heard. Regular rate and rhythm. No murmur, no gallop. RESPIRATORY SYSTEM: Normal AP diameter. No accessory muscle use. No wheezing, no crackles. ABDOMEN: Soft. Bowel sounds present. No distention. CENTRAL NERVOUS SYSTEM: Very drowsy. Moves extremities on touch stimuli. EXTREMITIES: No edema, no erythema. LABORATORY DATA: WBC 10.2, hemoglobin 13.2, hematocrit 38.9, platelets 179. PT 11.1, INR 1.1, APTT 24.8. Venous blood gas, pH of 7.42, pCO2 of 39, pO2 of 45, oxygen 84%. Sodium 138, potassium 3.4, chloride 105, bicarbonate 27, BUN 18, creatinine 0.9, serum glucose 126. Lactate 1.6, magnesium 1.6, total bilirubin 0.6, AST 16, ALT 16, alkaline phosphatase 76, troponin I of 0.016. Urinalysis, +3 blood, +1 leukocyte esterase. SARS-CoV-2 PCR negative. 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 CT scan of the head without contrast shows no acute intracranial abnormality. Chest x-ray, cardiomegaly without acute process. EKG: Sinus rhythm with first-degree AV block with right bundle-branch block, T- wave inversion seen in inferior leads and anterior leads. ASSESSMENT AND PLAN: This is an 85-year-old male who has Lewy body dementia, history of coronary artery disease, hyperlipidemia, Parkinson's, who was brought in because of altered mental status. 1. Altered mental status: The patient was shaking at home and confused. 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 He was empirically treated with Zosyn. We will also add vancomycin and follow the cultures. Gentle fluids. Monitor in the tele floor. We will also do a full stroke workup with echo. Speech evaluation, PT/OT Evaluation. The patient has pacemaker. We will order MRI scan if pacemaker is mri compatible.. The patient is already on aspirin and statin at home. We will also get a neurology consult in the a.m. for further recommendations. Closely monitor in the tele floor. 2. Hypokalemia and hypomagnesemia: Will replace. 3. History of coronary artery disease: Status post coronary artery bypass graft and on statin, aspirin, and beta ban. Will follow the echocardiogram. 4. History of atrial fibrillation: On metoprolol, not on any anticoagulation. 5. History of Lewy body dementia: On Aricept. Will monitor for any delirium, . 6. Parkinson's: On Sinemet. 7. Hypertension: On metoprolol. Will monitor the blood pressure. 8. Deep venous thrombosis prophylaxis: Sequential compression devices for now. DISPOSITION: Closely monitor in tele floor. Code status DNR/DNI as per the discussion with the . PT/OT prior to discharge. Social service to help with discharge planning, may need help at home. Addendum: Morning labs shows wbc 18, procalcitonin 18. will follow cultures.Ck 1200. Increased fluids to iv ns@125ml/hr.Hold lasix. Follow repeat CK. Job ID: [id number] [facility]
[2021-05-27] MEDS: POTASSIUM CHLORIDE / WTR 10 MEQ/100 ML PLCT IV SCH ×2 (03:53→04:58)
[2021-05-27] MEDS: MAGNESIUM SULFATE / D5W 1 GM/100 ML BAG IV SCH ×2 (03:54→06:05)
[2021-05-27] MEDS ORDERED: VANCOMYCIN HCL 2,250 MG in SODIUM CHLORIDE 0.9% 500 ML IV ONE (04:30)
[2021-05-27 04:49] LABS: Basophils # (auto) 0.01 K/uL (0-0.2); Basophils % (auto) 0.1 %; Hematocrit (blood only) 36.8 % (42-52); Hemoglobin 12.1 g/dL (14.0-18.0); Immature Granulocytes # (auto) 0.04 K/uL (0.00-0.02); Immature Granulocytes % (auto) 0.2 %; Lymphocytes # (auto) 1.32 K/uL (1.2-3.4); Lymphocytes % (auto) 7.5 %; Mean Corpuscular Hemoglobin 31.2 pg (25-34); Mean Corpuscular Hgb Conc 32.9 g/dL (32-36); Mean Corpuscular Volume 94.8 fL (80-100); Mean Platelet Volume 10.3 fL (7.4-10.4); Monocytes # (auto) 1.23 K/uL (0.11-0.59); Neutrophils # (auto) 15.03 K/uL (1.4-6.5); Neutrophils % (auto) 85.2 %; Platelet Count 172 K/uL (130-400); RDW Coefficient of Variation 13.9 % (11.5-14.5); RDW Standard Deviation 47.8 fL (36.4-46.3); Red Blood Count 3.88 M/uL (4.7-6.1); White Blood Count 17.63 K/uL (4.8-10.8)
[2021-05-27 05:28] LABS: BUN Creatinine Ratio 17.5 (10-20); Calcium 7.6 mg/dl (8.5-10.1); Creatinine Clr Calc Pharmacy 65.1 ml/min; Est GFR (African American) 73.8 ml/min; Est GFR (Non-African American) 63.7 ml/min; Magnesium 1.7 mg/dl (1.8-2.4); Potassium 7.7 mmol/L (3.5-5.1)
[2021-05-27] MEDS ORDERED: CALCIUM GLUCONATE 10% 2,000 MG in SODIUM CHLORIDE 0.9% 50 ML IV ONE (05:45)
[2021-05-27] MEDS ORDERED: DEXTROSE 50% 50 ML SYRINGE IV ONE (05:55)
[2021-05-27] MEDS ORDERED: INSULIN HUMAN REGULAR PER UNIT 10 UNITS in SYRINGE 0 ML IV ONE (05:56)
[2021-05-27 06:04] LABS: Estimated Average Glucose 128 mg/dl; Hemoglobin A1C 6.1 % (4.5-5.6)
[2021-05-27] MEDS: PIPERACILLIN/TAZOBACTAM 3.375 GM in DEXTROSE 5% 100 ML IV SCH ×3 (06:06→21:52)
[2021-05-27 06:28] LABS: Potassium 3.6 mmol/L (3.5-5.1)
[2021-05-27 06:39] LABS: Hematocrit (blood only) 37.1 % (42-52); Hemoglobin 12.2 g/dL (14.0-18.0); Immature Granulocytes # (auto) 0.04 K/uL (0.00-0.02); Immature Granulocytes % (auto) 0.2 %; Lymphocytes # (auto) 1.27 K/uL (1.2-3.4); Mean Corpuscular Hemoglobin 31.1 pg (25-34); Mean Corpuscular Volume 94.6 fL (80-100); Mean Platelet Volume 10.6 fL (7.4-10.4); Monocytes # (auto) 1.23 K/uL (0.11-0.59); Monocytes % (auto) 6.8 %; Neutrophils # (auto) 15.55 K/uL (1.4-6.5); Platelet Count 178 K/uL (130-400); RDW Standard Deviation 48.4 fL (36.4-46.3); Red Blood Count 3.92 M/uL (4.7-6.1); White Blood Count 18.09 K/uL (4.8-10.8)
[2021-05-27 06:44] LABS: Mean Corpuscular Hgb Conc 32.9 g/dL (32-36)
[2021-05-27 06:49] LABS: BUN Creatinine Ratio 16.8 (10-20); Calcium 7.8 mg/dl (8.5-10.1); Creatinine Clr Calc Pharmacy 59.5 ml/min; Est GFR (African American) 66.2 ml/min; Est GFR (Non-African American) 57.1 ml/min; Magnesium 2.3 mg/dl (1.8-2.4)
--- NOTE | 2021-05-27 10:22 | Electrocardiogram Report ---
Test Reason : Blood Pressure : / mmHG Vent. Rate : 079 BPM Atrial Rate : 079 BPM P-R Int : 344 ms QRS Dur : 160 ms QT Int : 398 ms P-R-T Axes : 000 102 026 degrees QTc Int : 456 ms Sinus rhythm with 1st degree A-V block Right bundle branch block Abnormal ECG When compared with ECG of 29-AUG-2018 18:13, Sinus rhythm has replaced Electronic atrial pacemaker T wave inversion now evident in Inferior leads T wave inversion more evident in Anterior leads Confirmed by Joon Garcia ([id number]) on 05/27/2021 10:22:42 AM Referred By: REFERRED SELF Confirmed By:Randy Garcia
[2021-05-27] MEDS: ASPIRIN 81 MG ECTAB PO SCH (10:26)
--- NOTE | 2021-05-27 10:26 | Electrocardiogram Report ---
Test Reason : Blood Pressure : / mmHG Vent. Rate : 060 BPM Atrial Rate : 060 BPM P-R Int : 334 ms QRS Dur : 160 ms QT Int : 512 ms P-R-T Axes : -72 003 -23 degrees QTc Int : 512 ms Atrial-paced rhythm with prolonged AV conduction with occasional ventricular-paced complexes Right bundle branch block Possible Inferior infarct , age undetermined Abnormal ECG When compared with ECG of 26-MAY-2021 22:07, (unconfirmed) Electronic ventricular pacemaker has replaced Sinus rhythm Confirmed by Joon Garcia ([id number]) on 05/27/2021 10:26:00 AM Referred By: REFERRED SELF Confirmed By:Randy Garcia
[2021-05-27] MEDS: METOPROLOL TARTRATE 25 MG TAB PO SCH (10:27)
[2021-05-27] MEDS: CARBIDOPA/LEVODOPA 25/100MG TAB PO SCH ×2 (10:27→19:49)
[2021-05-27] MEDS: ATORVASTATIN 20 MG TAB PO SCH (10:27)
[2021-05-27] MEDS: FUROSEMIDE 20 MG TAB PO SCH (10:27)
--- NOTE | 2021-05-27 11:45 | Consultation Report ---
REASON FOR CONSULTATION: Possible stroke. HISTORY OF PRESENT ILLNESS: The patient is an 85-year-old right-handed male who is well known to me. He has Lewy body dementia with parkinsonism. In fact, I saw him in the office yesterday. He is no ncompliant with medications and visits. He is taken care of by his who is finding it increasing ly difficult to care for him. On this background, by report, the patient's last spoke to him at 7:00 p.m. The next time she saw him was at 8:20 and he was very shaky, unsteady and she could not u nderstand what he was saying. The patient indicates that he generally felt unwell and cold. He also acknowledges some dysuria. On the patient's admission, a stroke alert was called initially, but the ER physician canceled it because the patient had a temperature spike and a likely urinary tract infe ction. CT of the head showed bilateral chronic vascular changes. CTA of head and neck showed high-g rade stenosis at the origin of left vert, atherosclerosis of the carotid bulbs resulting in less than 50% stenosis bilaterally, and an otherwise unremarkable CTA of the head and neck. His white count o n admission was 10, H and H 13.2 and 38.9, and platelet count 179. His white count today is 18. PT, PTT of 11.1/24.8. Electrolytes were notable for sodium of 3.4, glucose of 126, lactate of 2.1, magn esium of 1.6. Albumin is 3.2. Procalcitonin is elevated. Urinalysis, 3+ blood, 1+ leukocyte estera se, 5-10 white cells, greater than 30 epithelial cells. COVID negative. Electrocardiogram, sinus rh ythm, first degree AV block, right bundle-branch block, T-wave inversion in inferior and anterior rachele ds. PAST MEDICAL HISTORY: Notable for hyperlipidemia, dyspnea on exertion, pleural effusion, [place], atrial fibrillation, aortic aneurysm, hypertension, syncope, sinus bradycardia, severe aortic stenosis, stat us post bioprosthetic aortic valve replacement for aortic aneurysm, pacemaker, Lewy body dementia, re tinal hemorrhage, macular degeneration, hemolytic anemia. PAST SURGICAL HISTORY: Balloon angioplasty, bypass angiography, valve replacement, pacemaker, repair of detached retina. HOME MEDICATIONS: Aspirin, Lipitor, levodopa/carbidopa, which he takes twice a day instead of 3 time s a day as prescribed, donepezil 5 mg, Lasix, Benefiber, metoprolol. FAMILY HISTORY: Sister has stomach cancer. Mother had lupus. SOCIAL HISTORY: The patient is . Drinks alcohol occasionally. 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 REVIEW OF SYSTEMS: Unobtainable as the patient's mentation is quite slow, but additionally, the rizwana ent has multiple falls. Hallucinations primarily nocturnal. The patient has some delusional thinkin g, believing that his is lying to him. PHYSICAL EXAMINATION: VITAL SIGNS: Blood pressure 117/68, pulse 60, respirations 16, O2 sat 96%. GENERAL: The patient is awake. He is extremely bradyphrenic, hypophonic. He is oriented to [facility], unable to state the month and the year, follows some simple commands without right/left confusion, unable to name the right thumb. NECK: There are no carotid bruits. His neck is supple. HEART: There is a systolic murmur heard throughout the precordium. HEENT: His head is normocephalic, atraumatic. NEUROLOGIC: Pupils are post-surgical. I could not reliably visualize the optic nerves. [place] were full. Motility normal. No facial asymmetry is noted. The tongue is midline without evidence of la ceration. There is some resting tremor with some cogwheel rigidity. Strength while mildly diffusely reduced is symmetric without drift. Slowed, but equal rapid alternating movements. Lower extremity strength is without any asymmetry and legs are antigravity. Sensation is intact to light touch. Re flexes are symmetric. Toes are downgoing. Zkurpn-gr-[id number] is mildly tremulous. Fznq-od-eygc is norm al. Gait was not tested. IMPRESSION AND PLAN: Most likely sepsis rather than a transient ischemic attack. If pacer is MRI co mpatible, would recommend an MRI. Otherwise, I would complete a vascular workup and modify vascular risks. Goal LDL 70 or less. Continue the patient's Aricept provided weight is stable and levodopa/carbidopa b.i.d. It is not zeny ar that the patient has ever had a particularly vigorous response to levodopa/carbidopa, although it would be my preference for him to at least take it twice a day. That having been said, he has resist ed doing so in the past. His dementia and cognition are worsening. Currently, he appears marginally delirious. We have spoken about increasing the dose of Aricept, but he declines. We also discussed using some low-dose Seroquel due to hallucinations and he also refused to do so. The patient's care in general, I think, is more than his can provide at home. I think the patient needs a 24-hour a day care either in home or in a facility. It is not clear to this examiner that the patient has b een competent to make that decision and I lean in the direction that he is not in part because he has exhibited some poor judgment, no longer does his own bill paying, has what I believe to be delusiona l suspicions and hallucinates. We will follow with you. Job ID: [id number]
--- NOTE | 2021-05-27 13:01 | Hospitalist Progress Note ---
Date of Service May 27, 2021 Assessment & Plan (1) AMS (altered mental status): Admitted with unsteadiness, shaky and increasing confusion since the evening prior admission He was evaluated by the neurologist on the same day and was advised medication which the patient was not willing to take He was noted to have high fever of more than 38 C in the emergency room and was started with intravenous Zosyn and vancomycin Chest x-ray did not show any pneumonia and initial UA was fairly unremarkable Blood cultures have been sent He remains pleasantly confused and otherwise hemodynamically stable Possible TIA Besides mild confusion he does not have any other significant symptoms of stroke and/or TIA Appreciate neurology input and recommendation Initial investigation including CT of the head and CTAs are unremarkable He has been waiting for possible MRI to be done to rule out any stroke His symptoms seem to be more in favor of infection rather than stroke (2) Fever: As above (3) Hx of heart bypass surgery: Has significant cardiac disease including history of VT, history of A. fib, aortic aneurysm, severe aortic stenosis status post bioprosthetic valve And had is status post pacemaker/ICD Sees Dr. Nails for cardiac condition We will continue current cardiac medications including statin, aspirin and beta- ban Denies any cardiac symptoms (4) Pacemaker: (5) Lewy body dementia: Has Lewy body dementia and has been under care of neurologist at [facility] Increasing dose of Aricept was advised by the neurologist but the patient refused to take it Small dose of Seroquel is ordered as well (6) Parkinson's disease: Has significant Parkinson's disease Has been getting Sinemet and will continue twice daily as recommended DVT prophylaxis SCDs for now CODE STATUS-DNR/DNI Discussed with the in detail Admission and Anticipated Discharge Date Admission Date: May 27, 2021 Subjective 05/27/2021 The patient was seen and examined in telemetry unit He complains to have generalized weakness and has some difficulty in speaking Remains pleasantly confused without any significant distress Denies any headache, blurred vision, difficulty in swallowing, numbness and or t ingling in the extremities or any weakness involving any side of the body Review of Systems Review of Systems: All systems reviewed and are unremarkable except as noted below Neurologic: + generalized weakness and + confusion (Pleasantly confused); no tingling, no numbness, no paresthesia and no headache(s) Physical Exam Physical Exam: Lying in bed without any acute distress Constitutional: well developed, well nourished, + ill appearing and + obese Eyes: PERRL, conjunctivae normal, anicteric sclerae ENMT: external ear and nose normal, oropharynx normal Neck: trachea midline, no thyromegaly Respiratory: no respiratory distress Auscultation: lungs clear to auscultation bilaterally and + diminished lung sounds; no crackles Cardiovascular: Rate/Rhythm: regular rate and regular rhythm Heart Sounds: + murmur (2/6 ESM over precordium) Extremities: no edema Gastrointestinal (Abdomen): Inspection/Auscultation: normal bowel sounds; abdomen not distended Percussion/Palpation: abdomen soft; abdomen nontender Musculoskeletal: No acute arthritis in any joint Neurologic: Alert and awake. Pleasantly confused. Extremely weak and lethargic. Grossly no focal neurological deficit Psychiatric: Affect: + flat affect Lymphatic: no cervical or axillary lymphadenopathy Results & Data Results & Data ([facility]) Vital Signs (Past 12 Hours) Vital Signs Temp Pulse Pulse Resp BP BP Pulse Ox 05/27/21 12:26 37.0 C 58 L 16 99/61 L 95 05/27/21 08:42 36.8 C 60 16 117/68 05/27/21 07:28 60 05/27/21 03:34 37.2 C 60 16 115/66 96 05/27/21 03:20 72 05/27/21 02:48 62 14 100/56 L 95 05/27/21 01:40 70 12 109/61 93 Laboratory Results Short CBC 05/26/21 05/27/21 05/27/21 Range/Units 22:05 04:36 05:44 WBC 10.29 17.63 H 18.09 H (4.8-10.8) K/uL Hgb 13.2 L 12.1 L 12.2 L (14.0-18.0) g/dL Hct 38.9 L 36.8 L 37.1 L (42-52) % Plt Count 179 172 178 (130-400) K/uL [facility] 05/26/21 05/27/21 05/27/21 22:05 04:36 05:54 Sodium 138 135 L 139 Potassium 3.4 L 7.7 H* D 3.6 D Chloride 105 108 H 108 H Carbon Dioxide 27 30 29 BUN 18 19 H 20 H Creatinine 0.93 1.06 1.16 Glucose 126 H 130 H 150 H Calcium 8.5 7.6 L 7.8 L Cardiac Enzymes 05/26/21 05/27/21 Range/Units 22:05 05:54 Total Creatine Kinase 1209 H (39-308) U/L Troponin I 0.016 (0-0.045) ng/ml Liver Function 05/26/21 Range/Units 22:05 Total Bilirubin 0.6 (0.2-1) mg/dl AST 16 (15-37) U/L ALT 16 (12-78) U/L Alkaline Phosphatase 76 (45-117) U/L Albumin 3.2 L (3.4-5.0) gm/dl Urine 05/26/21 Range/Units 22:43 Urine Color Yellow Urine Appearance Clear (Clear) Urine pH 5.0 (4.5-7.5) Ur Specific [place] 1.045 H (1.000-1.030) Urine Protein Negative (Negative) Urine Glucose (UA) Negative (Negative) Medications Administered Current Inpatient Medications Acetaminophen (Acetaminophen 325 Mg Tab) 650 mg PO Q4H PRN PRN Reason: Pain or Fever Stop: 06/26/21 03:33 Aspirin (Aspirin 81 Mg Ectab) 81 mg PO DAILY FERNIE Stop: 06/26/21 08:59 Last Admin: 05/27/21 10:26 Dose: 81 mg Documented by: Atorvastatin Calcium (Atorvastatin 20 Mg Tab) 20 mg PO DAILY FERNIE Stop: 06/26/21 08:59 Last Admin: 05/27/21 10:27 Dose: 20 mg Documented by: Carbidopa/Levodopa (Carbidopa/Levodopa 25/100mg Tab) 1 tab PO BID FERNIE Stop: 06/26/21 08:59 Last Admin: 05/27/21 10:27 Dose: 1 tab Documented by: Donepezil HCl (Donepezil Hcl 5 Mg Tab) 5 mg PO HS FERNIE Stop: 06/26/21 20:59 Furosemide (Furosemide 20 Mg Tab) 20 mg PO DAILY FERNIE Stop: 06/26/21 08:59 Last Admin: 05/27/21 10:27 Dose: 20 mg Documented by: Sodium Chloride (Nss 1000ml) 1,000 mls @ 125 mls/hr IV .Q8H FERNIE Stop: 05/27/21 13:23 Last Infusion: 05/27/21 09:04 Dose: 125 mls/hr Documented by: Piperacillin Sod/Tazobactam (Sod 3.375 gm/ Dextrose) 115 mls @ 28.75 mls/hr IV Q8H [facility]; Protocol Stop: 05/29/21 05:59 Last Infusion: 05/27/21 10:16 Dose: Infused Documented by: Vancomycin HCl 1,500 mg/ (Sodium Chloride) 530 mls @ 200 mls/hr IV Q24H [facility] Stop: 05/29/21 21:59 Metoprolol Tartrate (Metoprolol Tartrate 25 Mg Tab) 25 mg PO DAILY FERNIE Stop: 06/26/21 08:59 Last Admin: 05/27/21 10:27 Dose: 25 mg Documented by: Miscellaneous Information (Piperacill/Tazobac Consult Active) 1 ea N/A UD PRN PRN Reason: Consult Stop: 06/25/21 22:56 Miscellaneous Information (Pharmacist Discharge Med Rec Consult) 1 ea N/A UD PRN PRN Reason: Consult Stop: 06/26/21 03:33 Miscellaneous Information (Vancomycin Consult Active) 1 ea N/A UD PRN PRN Reason: Consult Stop: 06/26/21 03:33 Nitroglycerin (Nitroglycerin Sl 0.4 Mg/Tab Tab) 0.4 mg SL Q5M PRN PRN Reason: Chest Pain Stop: 06/26/21 03:33 Ondansetron HCl (Ondansetron Inj 2 Mg/Ml 2 Ml Vial) 4 mg IV Q6H PRN PRN Reason: Nausea Stop: 06/26/21 03:33 Polyethylene Glycol (Polyethylene (Miralax) 17 Gm Pack) 17 gm PO DAILY PRN PRN Reason: Constipation Stop: 06/26/21 03:33 (1) Fever Fever type: unspecified Qualified Code(s): R50.9 - Fever, unspecified (2) AMS (altered mental status) Altered mental status type: unspecified Qualified Code(s): R41.82 - Altered mental status, unspecified
--- NOTE | 2021-05-27 15:07 | Pharmacy Report ---
Pharmacy Abx Dose Short Note - Date of Service May 27, 2021 - Assessment & Plan Assessment 85 year old M started on empiric Vancomycin for treatment of Sepsis d/t possible UTI. Day #1 of antimicrobial therapy. Patient is also on Zosyn empirically. Blood and Urine cultures pending. Plan Vancomycin * Vancomycin 2250 mg (22 mg/kg) loading dose given at 0519 today. * Vanco 1500 mg (15 mg/kg) IV q24h ordered to start at 2200 tonight. * Estimated pk parameters: Ke = 0.0385/hr, t1/2 = 18 hrs * Goal trough level for bacteremia: 15 to 20 mcg/mL * Plan to order a trough Vanco level before dose on 05/29 if therapy continues. Pharmacy will continue to follow and will adjust dose/frequency as necessary. Thank you.
[2021-05-27] MEDS: DONEPEZIL HCL 5 MG TAB PO SCH (19:49)
[2021-05-27] MEDS ORDERED: VANCOMYCIN HCL 1,500 MG in SODIUM CHLORIDE 0.9% 500 ML IV SCH (22:00)
[2021-05-28] MEDS: PIPERACILLIN/TAZOBACTAM 3.375 GM in DEXTROSE 5% 100 ML IV SCH ×3 (05:27→21:23)
[2021-05-28 07:29] LABS: Basophils # (auto) 0.02 K/uL (0-0.2); Basophils % (auto) 0.2 %; Eosinophils # (auto) 0.09 K/uL (0-0.5); Eosinophils % (auto) 0.7 %; Hematocrit (blood only) 35.8 % (42-52); Hemoglobin 11.7 g/dL (14.0-18.0); Immature Granulocytes # (auto) 0.03 K/uL (0.00-0.02); Immature Granulocytes % (auto) 0.2 %; Lymphocytes # (auto) 1.18 K/uL (1.2-3.4); Lymphocytes % (auto) 9.8 %; Mean Corpuscular Hemoglobin 31.3 pg (25-34); Mean Corpuscular Hgb Conc 32.7 g/dL (32-36); Mean Corpuscular Volume 95.7 fL (80-100); Mean Platelet Volume 10.5 fL (7.4-10.4); Monocytes # (auto) 1.16 K/uL (0.11-0.59); Monocytes % (auto) 9.6 %; Neutrophils # (auto) 9.57 K/uL (1.4-6.5); Neutrophils % (auto) 79.5 %; Platelet Count 160 K/uL (130-400); RDW Coefficient of Variation 14.1 % (11.5-14.5); RDW Standard Deviation 49.5 fL (36.4-46.3); Red Blood Count 3.74 M/uL (4.7-6.1); White Blood Count 12.05 K/uL (4.8-10.8)
[2021-05-28 07:47] LABS: BUN Creatinine Ratio 22.2 (10-20); Calcium 8.2 mg/dl (8.5-10.1); Creatinine Clr Calc Pharmacy 61.8 ml/min; Est GFR (African American) 67.6 ml/min; Est GFR (Non-African American) 58.3 ml/min; Potassium 3.4 mmol/L (3.5-5.1)
[2021-05-28] MEDS: ASPIRIN 81 MG ECTAB PO SCH (08:14)
[2021-05-28] MEDS: CARBIDOPA/LEVODOPA 25/100MG TAB PO SCH ×2 (08:14→20:31)
[2021-05-28] MEDS: ATORVASTATIN 20 MG TAB PO SCH (08:14)
[2021-05-28] MEDS: FUROSEMIDE 20 MG TAB PO SCH (08:15)
[2021-05-28] MEDS: METOPROLOL TARTRATE 25 MG TAB PO SCH (08:15)
--- NOTE | 2021-05-28 13:22 | Hospitalist Progress Note ---
Date of Service May 28, 2021 Assessment & Plan (1) AMS (altered mental status): Admitted with unsteadiness, shaky and increasing confusion since the evening prior admission He was evaluated by the neurologist on the same day and was advised medication which the patient was not willing to take He was noted to have high fever of more than 38 C in the emergency room and was started with intravenous Zosyn and vancomycin Chest x-ray did not show any pneumonia and initial UA was fairly unremarkable Urine culture is growing less than 1000 colonies per mL and final report is awaiting 1 out of 2 blood culture grew coagulase-negative staph not lugdunensis- vancomycin discontinued We will continue intravenous Zosyn for now White count has improved to 12.05 He remains pleasantly confused and otherwise hemodynamically stable Possible TIA Besides mild confusion he does not have any other significant symptoms of stroke and/or TIA Appreciate neurology input and recommendation Initial investigation including CT of the head and CTAs are unremarkable He has been waiting for possible MRI to be done to rule out any stroke His symptoms seem to be more in favor of infection rather than stroke Will have MRI scan of the head tomorrow PT and OT evaluation (2) Fever: As above (3) Hx of heart bypass surgery: Has significant cardiac disease including history of [place], history of A. fib, aortic aneurysm, severe aortic stenosis status post bioprosthetic valve And had is status post pacemaker/ICD Sees Dr. Nails for cardiac condition We will continue current cardiac medications including statin, aspirin and beta- ban Denies any cardiac symptoms Echo of the heart showed: Injection of contrast documented and interatrial shunt with patent forearm and overall, left and right atria are mildly dilated, mild concentric left ventricular hypertrophy with EF of 55 to 60%, RV systolic function is normal, there is a bioprosthetic aortic valve and the gradient is normal. (4) Pacemaker: (5) Lewy body dementia: Has Lewy body dementia and has been under care of neurologist at [facility] Increasing dose of Aricept was advised by the neurologist but the patient refu sed to take it Small dose of Seroquel is ordered as well Remains pleasantly confused and does not want to go to rehab/personal-long-term/skilled care jail (6) Parkinson's disease: Has significant Parkinson's disease Has been getting Sinemet and will continue twice daily as recommended DVT prophylaxis SCDs for now CODE STATUS-DNR/DNI Discussed with the in detail Admission and Anticipated Discharge Date Admission Date: May 27, 2021 Subjective 05/27/2021 The patient was seen and examined in telemetry unit He complains to have generalized weakness and has some difficulty in speaking Remains pleasantly confused without any significant distress Denies any headache, blurred vision, difficulty in swallowing, numbness and or tingling in the extremities or any weakness involving any side of the body 05/28/2021 The patient was seen and examined in telemetry unit He is back to his baseline and remains slow to speak, generally weak He wants to go home sooner than later He denies any other significant symptoms except weakness Review of Systems Review of Systems: Unobtainable due to cognitive status (But denies any significant symptoms) Physical Exam Physical Exam: Lying in bed without any acute distress Constitutional: well developed, well nourished, + ill appearing and + obese Eyes: PERRL, conjunctivae normal, anicteric sclerae ENMT: external ear and nose normal, oropharynx normal Neck: trachea midline, no thyromegaly Respiratory: no respiratory distress Auscultation: lungs clear to auscultation bilaterally and + diminished lung sounds; no crackles Cardiovascular: Rate/Rhythm: regular rate and regular rhythm Heart Sounds: + murmur (2/6 ESM over precordium) Extremities: no edema Gastrointestinal (Abdomen): Inspection/Auscultation: normal bowel sounds; abdomen not distended Percussion/Palpation: abdomen soft; abdomen nontender Neurologic: Alert and awake. Pleasantly confused. Slow in speech and slow in movements. Moving all the limbs without any facial asymmetry Psychiatric: Affect: + flat affect Lymphatic: no cervical or axillary lymphadenopathy Results & Data Results & Data ([facility]) Vital Signs (Past 12 Hours) Vital Signs Temp Pulse Pulse Resp BP BP Pulse Ox 05/28/21 12:11 36.7 C 59 L 16 159/78 H 94 05/28/21 08:13 36.9 C 59 L 16 160/80 H 99 05/28/21 07:10 60 05/28/21 03:37 146/83 H 05/28/21 03:25 36.5 C 60 16 172/91 H 166/85 H 97 Laboratory Results Short CBC 05/28/21 Range/Units 06:59 WBC 12.05 H (4.8-10.8) K/uL Hgb 11.7 L (14.0-18.0) g/dL Hct 35.8 L (42-52) % Plt Count 160 (130-400) K/uL BMP 05/28/21 06:59 Sodium 140 Potassium 3.4 L Chloride 108 H Carbon Dioxide 30 BUN 25 H Creatinine 1.14 Glucose 92 Calcium 8.2 L Cardiac Enzymes 05/28/21 Range/Units 06:59 Total Creatine Kinase 1669 H (39-308) U/L Medications Administered Current Inpatient Medications Acetaminophen (Acetaminophen 325 Mg Tab) 650 mg PO Q4H PRN PRN Reason: Pain or Fever Stop: 06/26/21 03:33 Last Admin: 05/27/21 19:39 Dose: 650 mg Documented by: Aspirin (Aspirin 81 Mg Ectab) 81 mg PO DAILY FERNIE Stop: 06/26/21 08:59 Last Admin: 05/28/21 08:14 Dose: 81 mg Documented by: Atorvastatin Calcium (Atorvastatin 20 Mg Tab) 20 mg PO DAILY FERNIE Stop: 06/26/21 08:59 Last Admin: 05/28/21 08:14 Dose: 20 mg Documented by: Carbidopa/Levodopa (Carbidopa/Levodopa 25/100mg Tab) 1 tab PO BID FERNIE Stop: 06/26/21 08:59 Last Admin: 05/28/21 08:14 Dose: 1 tab Documented by: Donepezil HCl (Donepezil Hcl 5 Mg Tab) 5 mg PO HS FERNIE Stop: 06/26/21 20:59 Last Admin: 05/27/21 19:49 Dose: 5 mg Documented by: Furosemide (Furosemide 20 Mg Tab) 20 mg PO DAILY FERNIE Stop: 06/26/21 08:59 Last Admin: 05/28/21 08:15 Dose: 20 mg Documented by: Heparin Sodium (Porcine) (Heparin Sod 5,000 Unit/0.5 Ml Vial) 5,000 units SQ Q8 [facility] Stop: 06/27/21 13:59 Piperacillin Sod/Tazobactam (Sod 3.375 gm/ Dextrose) 115 mls @ 28.75 mls/hr IV Q8H [facility]; Protocol Stop: 05/31/21 05:59 Last Infusion: 05/28/21 09:48 Dose: Infused Documented by: Metoprolol Tartrate (Metoprolol Tartrate 25 Mg Tab) 25 mg PO DAILY FERNIE Stop: 06/26/21 08:59 Last Admin: 05/28/21 08:15 Dose: 25 mg Documented by: Miscellaneous Information (Piperacill/Tazobac Consult Active) 1 ea N/A UD PRN PRN Reason: Consult Stop: 06/25/21 22:56 Miscellaneous Information (Pharmacist Discharge Med Rec Consult) 1 ea N/A UD PRN PRN Reason: Consult Stop: 06/26/21 03:33 Nitroglycerin (Nitroglycerin Sl 0.4 Mg/Tab Tab) 0.4 mg SL Q5M PRN PRN Reason: Chest Pain Stop: 06/26/21 03:33 Ondansetron HCl (Ondansetron Inj 2 Mg/Ml 2 Ml Vial) 4 mg IV Q6H PRN PRN Reason: Nausea Stop: 06/26/21 03:33 Polyethylene Glycol (Polyethylene (Miralax) 17 Gm Pack) 17 gm PO DAILY PRN PRN Reason: Constipation Stop: 06/26/21 03:33 (1) AMS (altered mental status) Altered mental status type: unspecified Qualified Code(s): R41.82 - Altered mental status, unspecified (2) Fever Fever type: unspecified Qualified Code(s): R50.9 - Fever, unspecified
[2021-05-28] MEDS: HEPARIN SOD 5,000 UNIT/0.5 ML VIAL SQ SCH ×2 (14:17→21:23)
--- NOTE | 2021-05-28 16:09 | Progress Notes ---
SUBJECTIVE: I am seeing the patient in followup of a fall. The patient was found to have a urinary tract infection. There was a question as to whether or not he was dysarthric. CT of the brain did n ot show an acute infarction. MRI is scheduled to be performed tomorrow. On exam, the patient is katia ke and alert, less bradyphrenic than he was yesterday. He tells me that he does not recall that I sa w him yesterday, but he is otherwise feeling well without any headache or new weakness or numbness. OBJECTIVE: VITAL SIGNS: BP 159/78, pulse is 59, temperature 36.7. NEUROLOGIC: There is facial masking, decreased blink frequency, bradyphrenia, hypophonia and modest generalized bradykinesia with some resting tremor. Strength is antigravity in all 4 extremities. ASSESSMENT: Lewy body dementia with parkinsonism. PLAN: Continue Sinemet. The patient has rejected higher doses of Sinemet. He has rejected Seroquel for bothersome hallucinations. This patient needs 24-hour a day care. I would appreciate the assistance of social work to advise th e patient and his the options. Episode of dysarthria, suspect this was in the setting of sepsis and fever. I still think it is reas onable to do an MRI of the brain. We will follow with you. Job ID: [id number]
[2021-05-28] MEDS: DONEPEZIL HCL 5 MG TAB PO SCH (20:31)
[2021-05-29] MEDS ORDERED: POTASSIUM CHLORIDE 20 MEQ/15 ML UDC PO STA (02:21)
[2021-05-29] MEDS: HEPARIN SOD 5,000 UNIT/0.5 ML VIAL SQ SCH ×3 (05:41→20:39)
[2021-05-29] MEDS: PIPERACILLIN/TAZOBACTAM 3.375 GM in DEXTROSE 5% 100 ML IV SCH ×2 (06:30→14:53)
[2021-05-29 07:29] LABS: Eosinophils # (auto) 0.12 K/uL (0-0.5); Eosinophils % (auto) 1.8 %; Hematocrit (blood only) 35.2 % (42-52); Hemoglobin 11.8 g/dL (14.0-18.0); Immature Granulocytes # (auto) 0.01 K/uL (0.00-0.02); Immature Granulocytes % (auto) 0.1 %; Lymphocytes # (auto) 1.07 K/uL (1.2-3.4); Lymphocytes % (auto) 15.9 %; Mean Corpuscular Hemoglobin 31.1 pg (25-34); Mean Corpuscular Hgb Conc 33.5 g/dL (32-36); Mean Corpuscular Volume 92.6 fL (80-100); Mean Platelet Volume 10.5 fL (7.4-10.4); Monocytes # (auto) 0.89 K/uL (0.11-0.59); Monocytes % (auto) 13.3 %; Neutrophils # (auto) 4.62 K/uL (1.4-6.5); Neutrophils % (auto) 68.9 %; Platelet Count 156 K/uL (130-400); RDW Coefficient of Variation 13.9 % (11.5-14.5); RDW Standard Deviation 46.9 fL (36.4-46.3); White Blood Count 6.71 K/uL (4.8-10.8)
[2021-05-29 07:57] LABS: BUN Creatinine Ratio 23.7 (10-20); Calcium 8.2 mg/dl (8.5-10.1); Creatinine Clr Calc Pharmacy 75.4 ml/min; Est GFR (African American) 84.3 ml/min; Est GFR (Non-African American) 72.7 ml/min; Potassium 3.6 mmol/L (3.5-5.1)
[2021-05-29] MEDS: METOPROLOL TARTRATE 25 MG TAB PO SCH (08:39)
[2021-05-29] MEDS: ASPIRIN 81 MG ECTAB PO SCH (08:39)
[2021-05-29] MEDS: FUROSEMIDE 20 MG TAB PO SCH (08:39)
[2021-05-29] MEDS: ATORVASTATIN 20 MG TAB PO SCH (08:39)
[2021-05-29] MEDS: CARBIDOPA/LEVODOPA 25/100MG TAB PO SCH ×2 (08:39→20:39)
[2021-05-29] MEDS ORDERED: POTASSIUM CHLORIDE 10 MEQ TABCR PO STA (09:11)
--- NOTE | 2021-05-29 15:49 | Hospitalist Progress Note ---
Date of Service May 29, 2021 Assessment & Plan (1) AMS (altered mental status): Admitted with unsteadiness, shaky and increasing confusion since the evening prior admission He was evaluated by the neurologist on the same day and was advised medication which the patient was not willing to take He was noted to have high fever of more than 38 C in the emergency room and was started with intravenous Zosyn and vancomycin Chest x-ray did not show any pneumonia and initial UA was fairly unremarkable Urine culture is growing less than 1000 colonies per mL and final report is awaiting 1 out of 2 blood culture grew coagulase-negative staph not lugdunensis- vancomycin discontinued We will continue intravenous Zosyn for now White count has improved to 12.05 He remains pleasantly confused and otherwise hemodynamically stable PT OT recommended rehab placement Possible TIA Besides mild confusion he does not have any other significant symptoms of stroke and/or TIA Appreciate neurology input and recommendation Initial investigation including CT of the head and CTAs are unremarkable He has been waiting for possible MRI to be done to rule out any stroke His symptoms seem to be more in favor of infection rather than stroke Will have MRI scan of the head tomorrow PT and OT evaluation-recommended rehab placement Awaiting MRI to be done (2) Fever: As above No more fever and no chills Will finish the antibiotic course in 5 days in total (3) Hx of heart bypass surgery: Has significant cardiac disease including history of [place], history of A. fib, aortic aneurysm, severe aortic stenosis status post bioprosthetic valve And had is status post pacemaker/ICD Sees Dr. Naisl for cardiac condition We will continue current cardiac medications including statin, aspirin and beta- ban Denies any cardiac symptoms Echo of the heart showed: Injection of contrast documented and interatrial shunt with patent forearm and overall, left and right atria are mildly dilated, mild concentric left ventricular hypertrophy with EF of 55 to 60%, RV systolic function is normal, there is a bioprosthetic aortic valve and the gradient is normal. (4) Pacemaker: (5) Lewy body dementia: Has Lewy body dementia and has been under care of neurologist at [facility] Increasing dose of Aricept was advised by the neurologist but the patient refused to take it Small dose of Seroquel is ordered as well Remains pleasantly confused and does not want to go to rehab/personal-senior care/skilled care penitentiary (6) Parkinson's disease: Has significant Parkinson's disease Has been getting Sinemet and will continue twice daily as recommended Appreciate neurology evaluation and recommendation DVT prophylaxis Heparin subcu has been started CODE STATUS-DNR/DNI Discussed with the in detail Admission and Anticipated Discharge Date Admission Date: May 27, 2021 Subjective 05/27/2021 The patient was seen and examined in telemetry unit He complains to have generalized weakness and has some difficulty in speaking Remains pleasantly confused without any significant distress Denies any headache, blurred vision, difficulty in swallowing, numbness and or tingling in the extremities or any weakness involving any side of the body 05/28/2021 The patient was seen and examined in telemetry unit He is back to his baseline and remains slow to speak, generally weak He wants to go home sooner than later He denies any other significant symptoms except weakness 05/29/2021 The patient was seen and examined in telemetry unit He remained stable and is back to his baseline Remains pleasantly confused but does not have any acute delirium No fever and no chills He does not want to go to rehab and/or personal care facility Review of Systems Review of Systems: All systems reviewed and are unremarkable except as noted below Neurologic: + generalized weakness and + confusion (Pleasantly confused); no tingling, no numbness, no paresthesia and no headache(s) Physical Exam Physical Exam: Lying in bed without any acute distress Constitutional: well developed, well nourished, + ill appearing and + obese Eyes: PERRL, conjunctivae normal, anicteric sclerae ENMT: external ear and nose normal, oropharynx normal Neck: trachea midline, no thyromegaly Respiratory: no respiratory distress Auscultation: lungs clear to auscultation bilaterally and + diminished lung sounds; no crackles Cardiovascular: Rate/Rhythm: regular rate and regular rhythm Heart Sounds: + murmur (2/6 ESM over precordium) Extremities: no edema Gastrointestinal (Abdomen): Inspection/Auscultation: normal bowel sounds; abdomen not distended Percussion/Palpation: abdomen soft; abdomen nontender Musculoskeletal: No acute arthritis in any joint Neurologic: Alert and awake. Pleasantly confused. Generally weak and lethargic. Slow in speech Psychiatric: Affect: + flat affect Lymphatic: no cervical or axillary lymphadenopathy Results & Data Results & Data ([facility]) Vital Signs (Past 12 Hours) Vital Signs Temp Pulse Pulse Resp BP BP Pulse Ox 05/29/21 15:15 37.0 C 60 17 150/79 H 95 05/29/21 11:40 37.1 C 59 L 20 161/86 H 95 05/29/21 11:12 61 05/29/21 07:39 37.0 C 52 L 18 163/85 H 95 05/29/21 04:00 36.8 C 60 16 159/85 H 93 Laboratory Results Short CBC 05/29/21 Range/Units 07:12 WBC 6.71 (4.8-10.8) K/uL Hgb 11.8 L (14.0-18.0) g/dL Hct 35.2 L (42-52) % Plt Count 156 (130-400) K/uL BMP 05/29/21 07:12 Sodium 139 Potassium 3.6 Chloride 107 Carbon Dioxide 29 BUN 23 H Creatinine 0.95 Glucose 98 Calcium 8.2 L Medications Administered Current Inpatient Medications Acetaminophen (Acetaminophen 325 Mg Tab) 650 mg PO Q4H PRN PRN Reason: Pain or Fever Stop: 06/26/21 03:33 Last Admin: 05/27/21 19:39 Dose: 650 mg Documented by: Aspirin (Aspirin 81 Mg Ectab) 81 mg PO DAILY FERNIE Stop: 06/26/21 08:59 Last Admin: 05/29/21 08:39 Dose: 81 mg Documented by: Atorvastatin Calcium (Atorvastatin 20 Mg Tab) 20 mg PO DAILY FERNIE Stop: 06/26/21 08:59 Last Admin: 05/29/21 08:39 Dose: 20 mg Documented by: Carbidopa/Levodopa (Carbidopa/Levodopa 25/100mg Tab) 1 tab PO BID FERNIE Stop: 06/26/21 08:59 Last Admin: 05/29/21 08:39 Dose: 1 tab Documented by: Donepezil HCl (Donepezil Hcl 5 Mg Tab) 5 mg PO HS FERNIE Stop: 06/26/21 20:59 Last Admin: 05/28/21 20:31 Dose: 5 mg Documented by: Furosemide (Furosemide 20 Mg Tab) 20 mg PO DAILY FERNIE Stop: 06/26/21 08:59 Last Admin: 05/29/21 08:39 Dose: 20 mg Documented by: Heparin Sodium (Porcine) (Heparin Sod 5,000 Unit/0.5 Ml Vial) 5,000 units SQ Q8 FERNIE Stop: 06/27/21 13:59 Last Admin: 05/29/21 14:53 Dose: 5,000 units Documented by: Piperacillin Sod/Tazobactam (Sod 3.375 gm/ Dextrose) 115 mls @ 28.75 mls/hr IV Q8H FERNIE; Protocol Stop: 05/31/21 05:59 Last Admin: 05/29/21 14:53 Dose: 28.8 mls/hr Documented by: Metoprolol Tartrate (Metoprolol Tartrate 25 Mg Tab) 25 mg PO DAILY FERNIE Stop: 06/26/21 08:59 Last Admin: 05/29/21 08:39 Dose: 25 mg Documented by: Miscellaneous Information (Piperacill/Tazobac Consult Active) 1 ea N/A UD PRN PRN Reason: Consult Stop: 06/25/21 22:56 Miscellaneous Information (Pharmacist Discharge Med Rec Consult) 1 ea N/A UD PRN PRN Reason: Consult Stop: 06/26/21 03:33 Nitroglycerin (Nitroglycerin Sl 0.4 Mg/Tab Tab) 0.4 mg SL Q5M PRN PRN Reason: Chest Pain Stop: 06/26/21 03:33 Ondansetron HCl (Ondansetron Inj 2 Mg/Ml 2 Ml Vial) 4 mg IV Q6H PRN PRN Reason: Nausea Stop: 06/26/21 03:33 Polyethylene Glycol (Polyethylene (Miralax) 17 Gm Pack) 17 gm PO DAILY PRN PRN Reason: Constipation Stop: 06/26/21 03:33 (1) AMS (altered mental status) Altered mental status type: unspecified Qualified Code(s): R41.82 - Altered mental status, unspecified (2) Fever Fever type: unspecified Qualified Code(s): R50.9 - Fever, unspecified
[2021-05-29] MEDS ORDERED: GADOBUTROL 65ML VIAL IV ONE (17:42)
--- NOTE | 2021-05-29 18:14 | Progress Notes ---
DATE OF SERVICE: 05/29/2021 This is a communication note. I see that Mr. Ozuna has not yet had his MRI of the brain. I will check back in once that has been p erformed. Job ID: [id number]
--- NOTE | 2021-05-29 18:36 | Magnetic Resonance Report ---
MRI OF THE BRAIN WITHOUT AND WITH IV CONTRAST CLINICAL HISTORY: cva? COMPARISON STUDY: Head CT and CTA of the head May 26, 2021. TECHNIQUE: Utilizing a 1.5 Danielle magnet and dedicated coil, multiplanar, multiecho imaging of the br ain was performed pre and postcontrast administration. IV administration of Gadavist contrast was un eventful. FINDINGS: This exam is mildly compromised by motion artifact. There are no foci of restricted diffusi on to suggest acute infarct. No acute intracranial hemorrhage, midline shift or mass effect is presen t. There is moderate atrophy. Ventricular system is unremarkable. Basal cisterns are patent. There ar e no extra axial collections. White matter T2 hyperintense foci suggest extensive small vessel diseas e. There are no old lacunar infarct within the right internal capsule. Calvarial signal is normal. Or bits are unremarkable. No intracranial mass or pathologic enhancement is present. IMPRESSION: 1. No acute intracranial findings. 2. No intracranial mass or pathologic enhancement. 3. Exam mildly compromised by motion artifact. 4. Moderate atrophy. Extensive small vessel disease. ACT 112: Negative or not required by law. Electronically signed by: Nolberto Alexandre M.D. 05/29/2021 6:34 PM
[2021-05-29] MEDS: DONEPEZIL HCL 5 MG TAB PO SCH (20:39)
[2021-05-30] MEDS: PIPERACILLIN/TAZOBACTAM 3.375 GM in DEXTROSE 5% 100 ML IV SCH ×3 (01:56→19:22)
[2021-05-30] MEDS: HEPARIN SOD 5,000 UNIT/0.5 ML VIAL SQ SCH ×3 (05:47→22:27)
[2021-05-30] MEDS ORDERED: Nursing to Pharmacy Communication SCH (06:45)
[2021-05-30] MEDS: FUROSEMIDE 20 MG TAB PO SCH (08:39)
[2021-05-30] MEDS: ASPIRIN 81 MG ECTAB PO SCH (08:39)
[2021-05-30] MEDS: ATORVASTATIN 20 MG TAB PO SCH (08:39)
[2021-05-30] MEDS: METOPROLOL TARTRATE 25 MG TAB PO SCH (08:40)
[2021-05-30] MEDS: CARBIDOPA/LEVODOPA 25/100MG TAB PO SCH ×2 (08:40→19:58)
--- NOTE | 2021-05-30 15:29 | Hospitalist Progress Note ---
Date of Service May 30, 2021 Assessment & Plan (1) AMS (altered mental status): Admitted with unsteadiness, shaky and increasing confusion since the evening prior admission He was evaluated by the neurologist on the same day and was advised medication which the patient was not willing to take He was noted to have high fever of more than 38 C in the emergency room and was started with intravenous Zosyn and vancomycin Chest x-ray did not show any pneumonia and initial UA was fairly unremarkable Urine culture is growing less than 1000 colonies per mL and final report is awaiting 1 out of 2 blood culture grew coagulase-negative staph not lugdunensis- vancomycin discontinued We will continue intravenous Zosyn for now White count has improved to 12.05 He remains pleasantly confused and otherwise hemodynamically stable PT OT recommended rehab placement Awaiting to go to [facility] and may take a day or 2 before his accepted Maintenance stable medically Possible TIA Besides mild confusion he does not have any other significant symptoms of stroke and/or TIA Appreciate neurology input and recommendation Initial investigation including CT of the head and CTAs are unremarkable He has been waiting for possible MRI to be done to rule out any stroke His symptoms seem to be more in favor of infection rather than stroke Will have MRI scan of the head tomorrow PT and OT evaluation-recommended rehab placement MRI did not show any stroke but did show small vessel disease No more symptoms of TIA Will be transferred to medical telemetry unit before being discharged (2) Fever: As above No more fever and no chills Will finish the antibiotic course in 5 days in total (3) Hx of heart bypass surgery: Has significant cardiac disease including history of AL, history of A. fib, aortic aneurysm, severe aortic stenosis status post bioprosthetic valve And had is status post pacemaker/ICD Sees Dr. Nails for cardiac condition We will continue current cardiac medications including statin, aspirin and beta-ban Denies any cardiac symptoms Echo of the heart showed: Injection of contrast documented and interatrial shunt with patent forearm and overall, left and right atria are mildly dilated, mild concentric left ventricular hypertrophy with EF of 55 to 60%, RV systolic function is normal, there is a bioprosthetic aortic valve and the gradient is normal. (4) Pacemaker: (5) Lewy body dementia: Has Lewy body dementia and has been under care of neurologist at [facility] Increasing dose of Aricept was advised by the neurologist but the patient refuse d to take it Small dose of Seroquel is ordered as well Remains pleasantly confused and does not want to go to rehab/personal-prison/skilled care [facility] (6) Parkinson's disease: Has significant Parkinson's disease Has been getting Sinemet and will continue twice daily as recommended Appreciate neurology evaluation and recommendation DVT prophylaxis Heparin subcu has been started CODE STATUS-DNR/DNI Discussed with the in detail Admission and Anticipated Discharge Date Admission Date: May 27, 2021 Subjective 05/27/2021 The patient was seen and examined in telemetry unit He complains to have generalized weakness and has some difficulty in speaking Remains pleasantly confused without any significant distress Denies any headache, blurred vision, difficulty in swallowing, numbness and or tingling in the extremities or any weakness involving any side of the body 05/28/2021 The patient was seen and examined in telemetry unit He is back to his baseline and remains slow to speak, generally weak He wants to go home sooner than later He denies any other significant symptoms except weakness 05/29/2021 The patient was seen and examined in telemetry unit He remained stable and is back to his baseline Remains pleasantly confused but does not have any acute delirium No fever and no chills He does not want to go to rehab and/or personal care facility 05/30/2021 The patient was seen and examined in telemetry unit He has been stable and does not have any new symptoms Remains pleasantly confused without any acute distress His MRI has been negative for any stroke Review of Systems Review of Systems: All systems reviewed and are unremarkable except as noted below Neurologic: + generalized weakness and + confusion (Pleasantly confused); no tingling, no numbness, no paresthesia and no headache(s) Physical Exam Physical Exam: Lying in bed without any acute distress Constitutional: well developed, well nourished, + ill appearing and + obese Eyes: PERRL, conjunctivae normal, anicteric sclerae ENMT: external ear and nose normal, oropharynx normal Neck: trachea midline, no thyromegaly Respiratory: no respiratory distress Auscultation: lungs clear to auscultation bilaterally and + diminished lung sounds; no crackles Cardiovascular: Rate/Rhythm: regular rate and regular rhythm Heart Sounds: + murmur (2/6 ESM over precordium) Extremities: no edema Gastrointestinal (Abdomen): Inspection/Auscultation: normal bowel sounds; abdomen not distended Percussion/Palpation: abdomen soft; abdomen nontender Neurologic: Alert, awake. Pleasantly confused. Generalized weakness with slowness in activity and speech Psychiatric: Affect: + flat affect Lymphatic: no cervical or axillary lymphadenopathy Results & Data Results & Data ([facility]) Vital Signs (Past 12 Hours) Vital Signs Temp Pulse Pulse Resp BP BP Pulse Ox 05/30/21 12:09 36.7 C 60 18 159/86 H 96 05/30/21 08:17 36.8 C 60 18 177/84 H 177/91 H 94 05/30/21 08:00 60 05/30/21 04:41 36.8 C 59 L 16 161/77 H 93 Medications Administered Current Inpatient Medications Acetaminophen (Acetaminophen 325 Mg Tab) 650 mg PO Q4H PRN PRN Reason: Pain or Fever Stop: 06/26/21 03:33 Last Admin: 05/27/21 19:39 Dose: 650 mg Documented by: Aspirin (Aspirin 81 Mg Ectab) 81 mg PO DAILY FERNIE Stop: 06/26/21 08:59 Last Admin: 05/30/21 08:39 Dose: 81 mg Documented by: Atorvastatin Calcium (Atorvastatin 20 Mg Tab) 20 mg PO DAILY FERNIE Stop: 06/26/21 08:59 Last Admin: 05/30/21 08:39 Dose: 20 mg Documented by: Carbidopa/Levodopa (Carbidopa/Levodopa 25/100mg Tab) 1 tab PO BID FERNIE Stop: 06/26/21 08:59 Last Admin: 05/30/21 08:40 Dose: 1 tab Documented by: Donepezil HCl (Donepezil Hcl 5 Mg Tab) 5 mg PO HS FERNIE Stop: 06/26/21 20:59 Last Admin: 05/29/21 20:39 Dose: 5 mg Documented by: Furosemide (Furosemide 20 Mg Tab) 20 mg PO DAILY FERNIE Stop: 06/26/21 08:59 Last Admin: 05/30/21 08:39 Dose: 20 mg Documented by: Heparin Sodium (Porcine) (Heparin Sod 5,000 Unit/0.5 Ml Vial) 5,000 units SQ Q8 FERNIE Stop: 06/27/21 13:59 Last Admin: 05/30/21 13:50 Dose: 5,000 units Documented by: Piperacillin Sod/Tazobactam (Sod 3.375 gm/ Dextrose) 115 mls @ 28.75 mls/hr IV Q8H FERNIE; Protocol Stop: 05/31/21 05:59 Last Infusion: 05/30/21 13:39 Dose: Infused Documented by: Metoprolol Tartrate (Metoprolol Tartrate 25 Mg Tab) 25 mg PO DAILY FERNIE Stop: 06/26/21 08:59 Last Admin: 05/30/21 08:40 Dose: 25 mg Documented by: Miscellaneous Information (Piperacill/Tazobac Consult Active) 1 ea N/A UD PRN PRN Reason: Consult Stop: 06/25/21 22:56 Miscellaneous Information (Pharmacist Discharge Med Rec Consult) 1 ea N/A UD PRN PRN Reason: Consult Stop: 06/26/21 03:33 Nitroglycerin (Nitroglycerin Sl 0.4 Mg/Tab Tab) 0.4 mg SL Q5M PRN PRN Reason: Chest Pain Stop: 06/26/21 03:33 Ondansetron HCl (Ondansetron Inj 2 Mg/Ml 2 Ml Vial) 4 mg IV Q6H PRN PRN Reason: Nausea Stop: 06/26/21 03:33 Polyethylene Glycol (Polyethylene (Miralax) 17 Gm Pack) 17 gm PO DAILY PRN PRN Reason: Constipation Stop: 06/26/21 03:33 Last Admin: 05/30/21 11:49 Dose: 17 gm Documented by: (1) AMS (altered mental status) Altered mental status type: unspecified Qualified Code(s): R41.82 - Altered mental status, unspecified (2) Fever Fever type: unspecified Qualified Code(s): R50.9 - Fever, unspecified
--- NOTE | 2021-05-30 17:40 | Progress Notes ---
DATE OF SERVICE: 05/30/2021 SUBJECTIVE: I am seeing Mr. Ozuna in followup of Lewy body dementia with parkinsonism. The patient had an MRI of the brain which I have reviewed, and it did not show an acute infarction. It showed mo derate atrophy, extensive small vessel disease. His CTA of the head and neck done on admission showe d high-grade stenosis of the origin of the left vertebral artery, atherosclerosis of the carotid bulb s resulting in less than 50% stenosis, otherwise unremarkable CTA of the head and neck. The patient indicates last night that he felt the hospital was in financial trouble and he needed to get out of b ed and address that. He tells me that he was told that that was a delusion, but it felt very real to him. OBJECTIVE: The patient is awake and alert. Speech is hypophonic. He is bradyphrenic. There is dec reased blink frequency. IMPRESSION AND PLAN: 1. Lewy body dementia with parkinsonism. The patient has delusional thinking and hallucinations, bu t has refused to take Seroquel 12.5 mg when I suggested it to him. This still may be an option. 2. There is no evidence that this patient had a recent stroke. 3. Left vertebral artery stenosis, asymptomatic. Continue risk factor modification and antiplatelet therapy. 4. Dementia. The patient has delusional thoughts, hallucinations and poor judgment. He requires 24 -hour a day care. His indicates to me that he is going to rehabilitation. If the patient were to go home, he would need 24-hour a day in home care. We will sign off at this point. The patient chuyita curtis see me in followup postdischarge. Job ID: [id number]
[2021-05-30] MEDS: DONEPEZIL HCL 5 MG TAB PO SCH (19:57)
[2021-05-31] MEDS: PIPERACILLIN/TAZOBACTAM 3.375 GM in DEXTROSE 5% 100 ML IV SCH (01:27)
[2021-05-31] MEDS: HEPARIN SOD 5,000 UNIT/0.5 ML VIAL SQ SCH ×3 (05:58→21:48)
[2021-05-31 07:37] LABS: Basophils # (auto) 0.01 K/uL (0-0.2); Basophils % (auto) 0.2 %; Eosinophils # (auto) 0.17 K/uL (0-0.5); Eosinophils % (auto) 3.4 %; Hematocrit (blood only) 39.3 % (42-52); Hemoglobin 13.5 g/dL (14.0-18.0); Immature Granulocytes # (auto) 0.01 K/uL (0.00-0.02); Immature Granulocytes % (auto) 0.2 %; Lymphocytes # (auto) 1.17 K/uL (1.2-3.4); Lymphocytes % (auto) 23.3 %; Mean Corpuscular Hemoglobin 31.8 pg (25-34); Mean Corpuscular Hgb Conc 34.4 g/dL (32-36); Mean Corpuscular Volume 92.7 fL (80-100); Monocytes # (auto) 0.67 K/uL (0.11-0.59); Monocytes % (auto) 13.3 %; Neutrophils # (auto) 2.99 K/uL (1.4-6.5); Neutrophils % (auto) 59.6 %; Platelet Count 210 K/uL (130-400); RDW Coefficient of Variation 13.2 % (11.5-14.5); RDW Standard Deviation 44.5 fL (36.4-46.3); Red Blood Count 4.24 M/uL (4.7-6.1); White Blood Count 5.02 K/uL (4.8-10.8)
[2021-05-31 08:12] LABS: BUN Creatinine Ratio 16.6 (10-20); Calcium 8.6 mg/dl (8.5-10.1); Creatinine Clr Calc Pharmacy 80.1 ml/min; Est GFR (African American) 90.4 ml/min; Magnesium 2.2 mg/dl (1.8-2.4); Phosphorus 2.8 mg/dl (2.5-4.9); Potassium 3.6 mmol/L (3.5-5.1)
[2021-05-31] MEDS: ASPIRIN 81 MG ECTAB PO SCH (09:30)
[2021-05-31] MEDS: CARBIDOPA/LEVODOPA 25/100MG TAB PO SCH ×2 (09:31→20:13)
[2021-05-31] MEDS: METOPROLOL TARTRATE 25 MG TAB PO SCH (09:31)
[2021-05-31] MEDS: FUROSEMIDE 20 MG TAB PO SCH (09:32)
[2021-05-31] MEDS: ATORVASTATIN 20 MG TAB PO SCH (09:34)
--- NOTE | 2021-05-31 13:55 | Discharge Summary ---
Date of Service May 31, 2021 Admission HPI Per Admitting Provider 85-year-old male with past medical history significant for hyperlipidemia, dyspnea on exertion, history of pleural effusion, history of PR, history of atrial fibrillation, aortic aneurysm, hypertension, syncope, sinus bradycardia, severe aortic stenosis s/p bioprosthetic valve , aortic replacement for aortic aneurysm ,status post pacemaker/ICD, Lewy body dementia, history of retinal hemorrhage, macular degeneration, acute hemolytic anemia. Lives at home with his . Ambulatory status is not that great as per the . Today he went to see his neurologist for his Lewy body dementia and he also complains of h allucinations at the nighttime, and in the morning. He was advised to take Seroquel, but he declined, and advised to increase his dose of Aricept and also Sinemet, but he seems to have declined, and there is a plan to see neuropsychologist also. After coming home, as per the he was fine. The last she talked to him at 7:00 p.m. After that, the next time she saw him was around 8:20 p.m. and he was very shaky, unsteady, and she could not understand what he was talking and he was brought to the hospital. 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 Currently, the patient is drowsy, not able to get any history from the patient. He can move his extremities to stimuli. says otherwise he did not complain of any headache or neck pain or any chest pain. He has a lot of vomiting during this episode, but no blood in the vomitus. She thinks she saw some hematuria early in the morning when he wiped. No complaints of any pain. Generally, his appetite is okay. He eats regular food. Cu rrently, hemodynamics are stable. Admission Exam Per Admitting Provider PHYSICAL EXAMINATION: VITAL SIGNS: Temperature max 38.8, pulse of 63, respiratory rate 18, blood pressure 120/68, oxygen 92% on nasal cannula. HEENT: Head atraumatic. Could not examine the pupils as the patient has difficulty opening the eyes. No obvious facial droop seen. NECK: No JVD. No neck masses seen. CARDIOVASCULAR: S1 and S2 heard. Regular rate and rhythm. No murmur, no gallop. RESPIRATORY SYSTEM: Normal AP diameter. No accessory muscle use. No wheezing, no crackles. ABDOMEN: Soft. Bowel sounds present. No distention. CENTRAL NERVOUS SYSTEM: Very drowsy. Moves extremities on touch stimuli. EXTREMITIES: No edema, no erythema. Principal Diagnosis (1) AMS (altered mental status): (2) Fever: (3) Hx of heart bypass surgery: (4) Pacemaker: (5) Lewy body dementia: (6) Parkinson's disease: Discharge Exam ROS-No Headache, No Visual Changes, No Nausea, No Vomiting, No Fever, No Chills, No Neck Pain or Stiffness, No Chest Pain, No Palpitations, No SOB, No LUIS, No Cough, No Sputum, No Wheezing, No Abdominal Pain, No Diarrhea, No Hematemesis, No Hemoptysis, No Unexpected Weight Loss, No Flank pain, No Melena, No Hematochezia, No Frequency, No Urgency, No Burning, No Hematuria, No Rashes, No Diaphoresis. Appetite is Normal Physical Exam Gen-AAO x 1, NAD, Afebrile, parkinsonian Head-NCAT, EOMI, PERRLA, Anicteric Sclera, No Posterior Pharyngeal Erythema Neck-Supple, No JVD, No Thyromegaly, No Masses, No LAD, No Bruits Lungs-Clear to Auscultation Bilaterally, No Rales, No Rhonchi, No Wheezing, No Crepitus Chest-No S4, +S1, +S2, No S3, No Murmurs, No Rubs, No Gallops, No Ectopy Abdomen-Soft, Bowel Sounds Present, Non Tender, Non Distended, No Hepatomegaly, No Splenomegaly, No Palpable Masses, No Rebound, No Rigidity, No Guarding Musculoskeletal-Full Range of Motion Bilaterally, No CVAT Extremities-No Cyanosis, No Clubbing, No Edema Nuero-Cranial Nerves II-XII grossly intact, Motor WNL, DTRs WNL, Strength WNL, Non Focal Psych-Demented Discharge Data Allergies Allergy/AdvReac Type Severity Reaction Status Date / Time No Known Allergies Allergy Unverified 05/26/21 22:15 Consultations 05/26/21 23:22 ED Decision to Admit Stat 05/27/21 08:00 Consult Neurology Routine Ordered Studies 05/26/21 21:39 CT angio head w con Stat CT angio neck with con Stat CT head/brain wo con Stat 05/29/21 09:31 MR brain wo/w con Routine Current Diagnoses Dementia in other diseases classified elsewhere without behavioral disturbance (05/27/21) Parkinson's disease (05/27/21) Dementia with Lewy bodies (05/27/21) Altered mental status, unspecified (05/27/21) Fever, unspecified (05/27/21) Presence of cardiac pacemaker (05/27/21) Presence of aortocoronary bypass graft (05/27/21) Allergies No Known Allergies Allergy (Unverified 05/26/21 22:15) Height/Weight/Isolation Height 6 ft 2 in Weight 110.1 kg Chemistry 05/31/21 07:18 Sodium 140 Potassium 3.6 Chloride 106 Carbon Dioxide 28 Anion Gap 5.0 BUN 15 Creatinine 0.89 Glucose 94 Hospital Course (1) AMS (altered mental status): Admitted with unsteadiness, shaky and increasing confusion since the evening prior admission He was evaluated by the neurologist on the same day and was advised medication which the patient was not willing to take He was noted to have high fever of more than 38 C in the emergency room and was started with intravenous Zosyn and vancomycin Chest x-ray did not show any pneumonia and initial UA was fairly unremarkable Urine culture is growing less than 1000 colonies per mL and final report is awaiting 1 out of 2 blood culture grew coagulase-negative staph not lugdunensis- vancomycin discontinued We will continue intravenous Zosyn for now White count is normal He remains pleasantly confused and otherwise hemodynamically stable PT OT recommended rehab placement Awaiting to go to [facility] stable medically No CVA per neurology Besides mild confusion he does not have any other significant symptoms of stroke and/or TIA Appreciate neurology input and recommendation Initial investigation including CT of the head and CTAs are unremarkable He has been waiting for possible MRI to be done to rule out any stroke His symptoms seem to be more in favor of infection rather than stroke MRI negative for cva PT and OT evaluation-recommended rehab placement MRI did not show any stroke but did show small vessel disease (2) Fever: As above No more fever and no chills Will finish the antibiotic course in 5 days in total (3) Hx of heart bypass surgery: Has significant cardiac disease including history of PR, history of A. fib, aortic aneurysm, severe aortic stenosis status post bioprosthetic valve And had is status post pacemaker/ICD Sees Dr. Nails for cardiac condition We will continue current cardiac medications including statin, aspirin and beta- ban Denies any cardiac symptoms Echo of the heart showed: Injection of contrast documented and interatrial shunt with patent forearm and overall, left and right atria are mildly dilated, mild concentric left ventricular hypertrophy with EF of 55 to 60%, RV systolic function is normal, there is a bioprosthetic aortic valve and the gradient is normal. (4) Pacemaker: (5) Lewy body dementia: Has Lewy body dementia and has been under care of neurologist at [facility] Increasing dose of Aricept was advised by the neurologist but the patient refused to take it Small dose of Seroquel is ordered as well Remains pleasantly confused and does not want to go to rehab/personal-custodial/skilled care skilled nursing (6) Parkinson's disease: Has significant Parkinson's disease Has been getting Sinemet and will continue twice daily as recommended Appreciate neurology evaluation and recommendation DVT prophylaxis Heparin subcu has been started labs checked CODE STATUS-DNR/DNI Total Time Total Time Spent Total Time Spent (In Minutes): 45 mins Total Time Includes: Examination of the Patient, Discharge Planning, Medication Reconciliation, Communication With Other Providers and Other Discharge Plan Discharge Items Patient Disposition: Transfer Nursing Home Fac Reason For Visit: CONFUSION, SHAKING Discharge Diagnosis: (1) AMS (altered mental status): (2) Fever: (3) Hx of heart bypass surgery: (4) Pacemaker: (5) Lewy body dementia: (6) Parkinson's disease: Condition on Discharge: Good Health Concerns: progressive dementia Activity: Resume your previous activity Lifting: Gradually increase as tolerated Bathing: No limitations Exercise/Sports: None Weightbearing: Full weightbearing Non-emergency contact: Primary Care Provider Call non-emergency contact if: you have any medication questions Follow-up/Referrals: Claribel Gaines MD [Primary Care Provider] - Stand-Alone Forms: My [facility] [employer] Medications and DC Order Prescriptions: No Action atorvastatin [Lipitor] 20 mg tablet 20 mg PO DAILY RF: 0 donepezil 5 mg tablet 5 mg PO DAILY RF: 0 aspirin [Aspir-Low] 81 mg Tablet,Delayed Release (Dr/Ec) 81 mg PO DAILY RF: 0 Benefiber (guar gum) Packet 1 tbsp PO DAILY RF: 0 furosemide 20 mg tablet 20 mg PO DAILY RF: 0 carbidopa-levodopa 25-100 mg tablet 1 tab PO BID RF: 0 metoprolol tartrate 25 mg tablet 25 mg PO DAILY RF: 0 Admission Data Admit Date/Time: 05/27/21 01:51 Attending Provider: Jamie oJe Admit Provider: Meir Valenzuela Primary Care Provider: Claribel Gaines Other Providers: Maria Isabel Olvera at [place] ; Meir Valenzuela ; Candi Pham ; Farncisco Mcdonald ; Candi Prado ; Jeff Castillo
--- NOTE | 2021-05-31 14:11 | Hospitalist Progress Note ---
Date of Service May 31, 2021 Assessment & Plan (1) AMS (altered mental status): (2) Fever: (3) Hx of heart bypass surgery: (4) Pacemaker: (5) Lewy body dementia: (6) Parkinson's disease: Plan: (1) AMS (altered mental status): Admitted with unsteadiness, shaky and increasing confusion since the evening prior admission He was evaluated by the neurologist on the same day and was advised medication which the patient was not willing to take He was noted to have high fever of more than 38 C in the emergency room and was started with intravenous Zosyn and vancomycin Chest x-ray did not show any pneumonia and initial UA was fairly unremarkable Urine culture is growing less than 1000 colonies per mL and final report is awaiting 1 out of 2 blood culture grew coagulase-negative staph not lugdunensis- vancomycin discontinued We will continue intravenous Zosyn for now White count is normal He remains pleasantly confused and otherwise hemodynamically stable PT OT recommended rehab placement Awaiting to go to [facility] stable medically No CVA per neurology Besides mild confusion he does not have any other significant symptoms of stroke and/or TIA Appreciate neurology input and recommendation Initial investigation including CT of the head and CTAs are unremarkable He has been waiting for possible MRI to be done to rule out any stroke His symptoms seem to be more in favor of infection rather than stroke MRI negative for cva PT and OT evaluation-recommended rehab placement MRI did not show any stroke but did show small vessel disease (2) Fever: As above No more fever and no chills Will finish the antibiotic course in 5 days in total (3) Hx of heart bypass surgery: Has significant cardiac disease including history of [place], history of A. fib, aortic aneurysm, severe aortic stenosis status post bioprosthetic valve And had is status post pacemaker/ICD Sees Dr. Nails for cardiac condition We will continue current cardiac medications including statin, aspirin and beta- ban Denies any cardiac symptoms Echo of the heart showed: Injection of contrast documented and interatrial shunt with patent forearm and overall, left and right atria are mildly dilated, mild concentric left ventricular hypertrophy with EF of 55 to 60%, RV systolic function is normal, there is a bioprosthetic aortic valve and the gradient is normal. (4) Pacemaker: (5) Lewy body dementia: Has Lewy body dementia and has been under care of neurologist at [facility] Increasing dose of Aricept was advised by the neurologist but the patient refused to take it Small dose of Seroquel is ordered as well Remains pleasantly confused and does not want to go to rehab/personal-residential/skilled care retirement (6) Parkinson's disease: Has significant Parkinson's disease Has been getting Sinemet and will continue twice daily as recommended Appreciate neurology evaluation and recommendation DVT prophylaxis Heparin subcu has been started labs checked CODE STATUS-DNR/DNI ROS-No Headache, No Visual Changes, No Nausea, No Vomiting, No Fever, No Chills, No Neck Pain or Stiffness, No Chest Pain, No Palpitations, No SOB, No LUIS, No Cough, No Sputum, No Wheezing, No Abdominal Pain, No Diarrhea, No Hematemesis, No Hemoptysis, No Unexpected Weight Loss, No Flank pain, No Melena, No Hematochezia, No Frequency, No Urgency, No Burning, No Hematuria, No Rashes, No Diaphoresis. Appetite is Normal Physical Exam Gen-AAO x 1, NAD, Afebrile, parkinsonian Head-NCAT, EOMI, PERRLA, Anicteric Sclera, No Posterior Pharyngeal Erythema Neck-Supple, No JVD, No Thyromegaly, No Masses, No LAD, No Bruits Lungs-Clear to Auscultation Bilaterally, No Rales, No Rhonchi, No Wheezing, No Crepitus Chest-No S4, +S1, +S2, No S3, No Murmurs, No Rubs, No Gallops, No Ectopy Abdomen-Soft, Bowel Sounds Present, Non Tender, Non Distended, No Hepatomegaly, No Splenomegaly, No Palpable Masses, No Rebound, No Rigidity, No Guarding Musculoskeletal-Full Range of Motion Bilaterally, No CVAT Extremities-No Cyanosis, No Clubbing, No Edema Nuero-Cranial Nerves II-XII grossly intact, Motor WNL, DTRs WNL, Strength WNL, Non Focal Psych-Demented Admission and Anticipated Discharge Date Admission Date: May 27, 2021 Subjective 05/27/2021 The patient was seen and examined in telemetry unit He complains to have generalized weakness and has some difficulty in speaking Remains pleasantly confused without any significant distress Denies any headache, blurred vision, difficulty in swallowing, numbness and or tingling in the extremities or any weakness involving any side of the body 05/28/2021 The patient was seen and examined in telemetry unit He is back to his baseline and remains slow to speak, generally weak He wants to go home sooner than later He denies any other significant symptoms except weakness 05/29/2021 The patient was seen and examined in telemetry unit He remained stable and is back to his baseline Remains pleasantly confused but does not have any acute delirium No fever and no chills He does not want to go to rehab and/or personal care facility 05/30/2021 The patient was seen and examined in telemetry unit He has been stable and does not have any new symptoms Remains pleasantly confused without any acute distress His MRI has been negative for any stroke 05/31/2021 awaiting placement Results & Data Results & Data ([facility]) Vital Signs (Past 12 Hours) Vital Signs Temp Pulse Resp BP Pulse Ox 05/31/21 10:00 36.6 C 59 L 20 135/86 94 05/31/21 07:00 36.6 C 60 20 180/90 H 91 05/31/21 04:00 36.7 C 59 L 20 170/87 H 93 (1) AMS (altered mental status) Altered mental status type: unspecified Qualified Code(s): R41.82 - Altered mental status, unspecified (2) Fever Fever type: unspecified Qualified Code(s): R50.9 - Fever, unspecified
[2021-05-31] MEDS: DONEPEZIL HCL 5 MG TAB PO SCH (20:13)
[2021-06-01] MEDS: HEPARIN SOD 5,000 UNIT/0.5 ML VIAL SQ SCH (05:33)
--- NOTE | 2021-06-01 07:54 | Hospitalist Progress Note ---
Date of Service June 01, 2021 Assessment & Plan (1) AMS (altered mental status): (2) Fever: (3) Hx of heart bypass surgery: (4) Pacemaker: (5) Lewy body dementia: (6) Parkinson's disease: Plan: (1) AMS (altered mental status): Admitted with unsteadiness, shaky and increasing confusion since the evening prior admission He was evaluated by the neurologist on the same day and was advised medication which the patient was not willing to take He was noted to have high fever of more than 38 C in the emergency room and was started with intravenous Zosyn and vancomycin Chest x-ray did not show any pneumonia and initial UA was fairly unremarkable Urine culture is growing less than 1000 colonies per mL and final report is awaiting 1 out of 2 blood culture grew coagulase-negative staph not lugdunensis- vancomycin discontinued We will continue intravenous Zosyn for now White count is normal He remains pleasantly confused and otherwise hemodynamically stable PT OT recommended rehab placement Awaiting to go to [facility] stable medically No CVA per neurology Besides mild confusion he does not have any other significant symptoms of stroke and/or TIA Appreciate neurology input and recommendation Initial investigation including CT of the head and CTAs are unremarkable He has been waiting for possible MRI to be done to rule out any stroke His symptoms seem to be more in favor of infection rather than stroke MRI negative for cva PT and OT evaluation-recommended rehab placement MRI did not show any stroke but did show small vessel disease (2) Fever: As above No more fever and no chills Will finish the antibiotic course in 5 days in total (3) Hx of heart bypass surgery: Has significant cardiac disease including history of [place], history of A. fib, aortic aneurysm, severe aortic stenosis status post bioprosthetic valve And had is status post pacemaker/ICD Sees Dr. Nails for cardiac condition We will continue current cardiac medications including statin, aspirin and beta- ban Denies any cardiac symptoms Echo of the heart showed: Injection of contrast documented and interatrial shunt with patent forearm and overall, left and right atria are mildly dilated, mild concentric left ventricular hypertrophy with EF of 55 to 60%, RV systolic function is normal, there is a bioprosthetic aortic valve and the gradient is normal. (4) Pacemaker: (5) Lewy body dementia: Has Lewy body dementia and has been under care of neurologist at [facility] Increasing dose of Aricept was advised by the neurologist but the patient refused to take it Small dose of Seroquel is ordered as well Remains pleasantly confused and does not want to go to rehab/personal-skilled nursing/skilled care longterm (6) Parkinson's disease: Has significant Parkinson's disease Has been getting Sinemet and will continue twice daily as recommended Appreciate neurology evaluation and recommendation DVT prophylaxis Heparin subcu has been started labs checked, Await Placement CODE STATUS-DNR/DNI ROS-No Headache, No Visual Changes, No Nausea, No Vomiting, No Fever, No Chills, No Neck Pain or Stiffness, No Chest Pain, No Palpitations, No SOB, No LUIS, No Cough, No Sputum, No Wheezing, No Abdominal Pain, No Diarrhea, No Hematemesis, No Hemoptysis, No Unexpected Weight Loss, No Flank pain, No Melena, No Hematochezia, No Frequency, No Urgency, No Burning, No Hematuria, No Rashes, No Diaphoresis. Appetite is Normal Physical Exam Gen-AAO x 1, NAD, Afebrile, parkinsonian Head-NCAT, EOMI, PERRLA, Anicteric Sclera, No Posterior Pharyngeal Erythema Neck-Supple, No JVD, No Thyromegaly, No Masses, No LAD, No Bruits Lungs-Clear to Auscultation Bilaterally, No Rales, No Rhonchi, No Wheezing, No Crepitus Chest-No S4, +S1, +S2, No S3, No Murmurs, No Rubs, No Gallops, No Ectopy Abdomen-Soft, Bowel Sounds Present, Non Tender, Non Distended, No Hepatomegaly, No Splenomegaly, No Palpable Masses, No Rebound, No Rigidity, No Guarding Musculoskeletal-Full Range of Motion Bilaterally, No CVAT Extremities-No Cyanosis, No Clubbing, No Edema Nuero-Cranial Nerves II-XII grossly intact, Motor WNL, DTRs WNL, Strength WNL, Non Focal Psych-Demented Admission and Anticipated Discharge Date Admission Date: May 27, 2021 Subjective 05/27/2021 The patient was seen and examined in telemetry unit He complains to have generalized weakness and has some difficulty in speaking Remains pleasantly confused without any significant distress Denies any headache, blurred vision, difficulty in swallowing, numbness and or tingling in the extremities or any weakness involving any side of the body 05/28/2021 The patient was seen and examined in telemetry unit He is back to his baseline and remains slow to speak, generally weak He wants to go home sooner than later He denies any other significant symptoms except weakness 05/29/2021 The patient was seen and examined in telemetry unit He remained stable and is back to his baseline Remains pleasantly confused but does not have any acute delirium No fever and no chills He does not want to go to rehab and/or personal care facility 05/30/2021 The patient was seen and examined in telemetry unit He has been stable and does not have any new symptoms Remains pleasantly confused without any acute distress His MRI has been negative for any stroke 05/31& awaiting placement Results & Data Results & Data ([facility]) Vital Signs (Past 12 Hours) Vital Signs Temp Pulse Resp BP BP Pulse Ox 06/01/21 07:00 36.3 C L 61 20 175/96 H 94 06/01/21 03:46 36.7 C 61 18 165/99 H 94 05/31/21 23:36 36.6 C 61 20 187/80 H 95 (1) AMS (altered mental status) Altered mental status type: unspecified Qualified Code(s): R41.82 - Altered mental status, unspecified (2) Fever Fever type: unspecified Qualified Code(s): R50.9 - Fever, unspecified
[2021-06-01] MEDS: ASPIRIN 81 MG ECTAB PO SCH ×2 (07:57→08:58)
[2021-06-01] MEDS: CARBIDOPA/LEVODOPA 25/100MG TAB PO SCH ×2 (07:57→08:58)
[2021-06-01] MEDS: FUROSEMIDE 20 MG TAB PO SCH ×2 (07:58→08:58)
[2021-06-01] MEDS: METOPROLOL TARTRATE 25 MG TAB PO SCH ×2 (07:58→08:58)
[2021-06-01] MEDS ORDERED: lisinopril 20 MG TAB PO SCH (09:00)
--- NOTE | 2021-06-12 17:54 | Coding Query ---
CODING QUERY To promote full compliance with coding requirements relating to patient care, provider participation is requested in all cases of certified medical records coder uncertainty. Please assist us with the question(s) below: Coding Question(s): Pt admitted with altered mental status , fever and positive blood culture, 1-2 cultures positive for staph. Please document, if known or suspected the etiology of the altered mental status, fever, and positive blood culture. Thanks for your help! Jules Harrison [facility] Physician's Response(s): Unable to determine, Likely progressive dementia was the cause of the AMS. 1/2 bottles was likely a contaminant Principal Diagnosis: "that condition established after study, to be chiefly responsible for occasioning the admission of the patient to the hospital for care." Co-Existing Principal Diagnosis: "when two or more diagnoses equally meet the criteria for principal diagnosis as determined by the circumstances of admission, diagnostic work up, and/or therapy provided, and the Alphabetic Index, Tabular List, or another coding guideline does not provide sequencing direction, any one of the diagnoses may be sequenced first." "When the physician has documented what appears to be a current diagnosis in the body of the record, but has not included the diagnosis in the final diagnostic statement, the physician should be asked whether the diagnosis should be added." ([facility] 2 QTR90. p3-4) [facility]
== END 2021-06-01 10:29 | DRG 57 ==
LOC: ED 21:41 → SUATTDRO 05-27 01:51 → 2S 05-27 01:51 → 2N 05-30 11:22

== ENCOUNTER 2021-08-27 15:03 | Inpatient (IN) ==
--- NOTE | 2021-08-27 15:55 | Emergency Department Note ---
Impression & Plan Fall, Weakness, Rhabdomyolysis, Left rib fracture, T12 compression fracture ED Provider Note Provider: Avni Candelario MD DATE OF SERVICE: 08/27/2021 CHIEF COMPLAINT: Weakness, fall HISTORY OF PRESENT ILLNESS: Patient is a 85-year-old gentleman history of Lewy body dementia/parkinsonism's, CAD status post bypass on baby aspirin presenting with today with report that patient suffered a fall down approximately 9 steps on morning. Went to the [facility] for scheduled exam on afternoon and was seen by family medicine. Recommended that he come here for further evaluation but due to the length of wait here patient went home with his . Over the last day or so is been complaining of some mild pain initially across his lower chest and then in his left shoulder. This is moderate some but now he is having diffuse weakness this morning and slid out of bed to the ground again this morning. states that he is weak and not himself. Patient's been drinking but not eating much now. Patient per her report seems to have more of a blank stare. REVIEW OF SYSTEMS: Limited secondary to his mental status/dementia PAST MEDICAL HISTORY: As noted above MEDICATIONS: Reviewed home medication list includes aspirin SOCIAL HISTORY: Lives at home with PHYSICAL EXAM: GENERAL: alert in no acute distress on the stretcher staring ahead with mask in place, fatigued appearing but pleasant Head: normocephalic and atraumatic EYES: No injection, discharge or icterus. PERRL NECK: Trachea midline. Supple without significant posterior midline tenderness ENT: Mucous membranes pink and moist. Pharynx without erythema or exudate. LUNGS: Airway patent. No retractions. Breath sounds clear with good air entry bilaterally. HEART: Regular rate and rhythm. Some mild lower chest wall tenderness towards the left chest, left upper chest wall pacemaker/AICD in place ABDOMEN: Soft and non-tender, without guarding or rebound. No masses SKIN: Acyanotic, warm, dry EXTREMITIES: Without swelling, tenderness or deformity including no pain with ROM of the lower extremities NEUROLOGICAL: No focal deficits and withdraws to pain in all 4 extremities. No facial droop or slurred speech. EK bpm ventricular paced rhythm without PVC. Intraventricular conduction delay consistent with pacing is noted. No acute ST segment elevation is noted of ischemic significance. QTc 536. In comparison to previous from Cher 10 of this year now in a predominantly ventricular paced rhythm as opposed atrially paced CONTINUOUS CARDIAC MONITORING: was ordered and showed a heart rate of 60s bpm in ventricular paced rhythm GCS 14 with some confusion Patient's laboratory studies and imaging reviewed. Differential includes Fracture, dislocation, contusion, intra-abdominal, pneumothorax, intrathoracic, intracranial, neurologic, compartment syndrome, rhabdomyolysis, as well as other pathologies. IMPRESSION/MEDICAL DECISION MAKING: Patient with underlying dementia and parkinsonism suffered a fall now 3 days ago of significance on aspirin. Now not quite acting himself with a blank stare at times according to the . No seizure-like activity reported. Patient suffered another small fall to the floor again this morning from the bed. He is weak and unable to transfer. Patient unable to ride significant history. Some mild lower chest wall tenderness may be some left shoulder tenderness questionably reported. X-rays per radiology without evidence of acute fracture of the left shoulder or the chest. Blood work without significant anemia or leukocytosis. Renal function appears stable. Detectable and abnormal troponin is noted. TSH within normal limits. CPK is elevated at 1147 and question some mild rhabdomyolysis from his fall. Procalcitonin is undetectably low and I have low suspicion for bacterial infection. Covid test negative. Given small amount of IV fluids as well as a small amount of IV Tylenol. CT scans per radiology without evidence of acute intracranial or cervical injury. CT of the chest, abdomen and pelvis per radiology with evidence of a left posterior rib fracture and trace hemothorax with a T12 endplate compression fracture. Again grossly neurologically intact and I do not believe there is any acute intervention beyond pain control for these injuries. Discussed with the patient and at bedside findings and recommended observation overnight given his weakness and falls as well as the evidence of rhabdomyolysis. She was very much in agreement and states he is not being around well enough at home to currently be taking care of. The hospitalist was contacted. DIAGNOSIS: Weakness, fall, rhabdomyolysis, left fourth rib fracture, T12 compression fracture DISPOSITION: Hospitalist will evaluate Past Med/Surg History Medical History Aortic aneurysm Aortic stenosis Atrial fibrillation CAD (coronary artery disease) Dementia Hemolytic anemia HLD (hyperlipidemia) HTN (hypertension) senior care resident Pacemaker Parkinsons disease Surgical History H/O prosthetic heart valve History of cataract surgery right Hx of heart bypass surgery Social History Smoking Status: Never smoker Hx Alcohol Use: No Hx Substance Use: No Preferred Language: Serbian Communication Ability: Impaired Visual Impairment: No Limitations Hearing Ability: Normal Miter Sawyer Required: No Beliefs That Will Affect Care: None marital status: Current Living Situation Comment: resident at [facility] Feels Safe at Home: Yes Allergies Allergies Allergy/AdvReac Type Severity Reaction Status Date / Time No Known Allergies Allergy Verified 08/27/21 19:28 Home Meds Home Medications Medication Instructions Recorded Confirmed aspirin 81 mg tablet,delayed 81 mg PO DAILY 05/26/21 08/27/21 release atorvastatin 20 mg tablet (Lipitor) 20 mg PO QPM 05/26/21 08/27/21 carbidopa 25 mg-levodopa 100 mg 1 tab PO BID 05/26/21 08/27/21 tablet donepezil 5 mg tablet 5 mg PO DAILY 05/26/21 08/27/21 furosemide 20 mg tablet 20 mg PO QAM 05/26/21 08/27/21 metoprolol tartrate 25 mg tablet 25 mg PO DAILY 08/27/21 08/27/21 Results & Data (ED) Vital Signs Vital Signs - 24 hr 08/27/21 15:03 08/27/21 15:36 08/27/21 16:30 Temperature 37.1 C Temperature Source Oral Pulse Rate 66 66 Pulse Rate from SpO2 Sensor Pulse Rhythm Regular Respiratory Rate 18 18 24 Respiratory Effort / Characteristics Non-Labored Respiratory Depth Normal Respiratory Pattern Regular Blood Pressure 165/101 H 151/90 H Blood Pressure Mean 122 110 Pulse Oximetry 95 95 92 Oxygen Delivery Method Room Air Room Air Room Air Sepsis Recent Fever Within 48 Hours No Sepsis New/Unexplained Change in Mental Status No Sepsis Action Taken by Nursing No Action Required 08/27/21 17:00 08/27/21 17:30 08/27/21 18:30 Temperature Temperature Source Pulse Rate 65 65 65 Pulse Rate from SpO2 Sensor 64 65 65 Pulse Rhythm Respiratory Rate 25 H 22 25 H Respiratory Effort / Characteristics Respiratory Depth Respiratory Pattern Blood Pressure 144/101 H 141/89 H 143/95 H Blood Pressure Mean 115 106 111 Pulse Oximetry 92 93 91 Oxygen Delivery Method Sepsis Recent Fever Within 48 Hours Sepsis New/Unexplained Change in Mental Status Sepsis Action Taken by Nursing Laboratory Data Result diagrams: 08/27/21 16:05 08/27/21 16:05 Lab Results 08/27/21 08/27/21 08/27/21 Range/Units 16:05 16:05 16:05 WBC 9.78 (4.8-10.8) K/uL RBC 4.50 L (4.7-6.1) M/uL Hgb 14.1 (14.0-18.0) g/dL Hct 42.1 (42-52) % MCV 93.6 (80-100) fL MCH 31.3 (25-34) pg MCHC 33.5 (32-36) g/dL RDW Std Deviation 48.0 H (36.4-46.3) fL RDW Coeff of Lacey 14.0 (11.5-14.5) % Plt Count 163 (130-400) K/uL MPV 11.7 H (7.4-10.4) fL Immature Gran % (Auto) 0.2 % Neut % (Auto) 74.8 % Lymph % (Auto) 10.1 % Cedar % (Auto) 13.6 % Eos % (Auto) 1.1 % Baso % (Auto) 0.2 % Neut # (Auto) 7.31 H (1.4-6.5) K/uL Lymph # (Auto) 0.99 L (1.2-3.4) K/uL Cedar # (Auto) 1.33 H (0.11-0.59) K/uL Eos # (Auto) 0.11 (0-0.5) K/uL Baso # (Auto) 0.02 (0-0.2) K/uL Immature Gran # (Auto) 0.02 (0.00-0.02) K/uL PT 11.0 (9.0-12.0) Seconds INR 1.1 (0.9-1.1) Sodium 139 (136-145) mmol/L Potassium 3.9 (3.5-5.1) mmol/L Chloride 106 (98-107) mmol/L Carbon Dioxide 27 (21-32) mmol/L Anion Gap 7.0 (3-11) BUN 24 H (7-18) mg/dl Creatinine 1.00 (0.6-1.4) mg/dl Est Cr Clr Drug Dosing 69.8 ml/min Est GFR ( Amer) 79.2 ml/min Est GFR (Non-Af Amer) 68.3 ml/min BUN/Creatinine Ratio 24.2 H (10-20) Glucose 122 H (70-99) mg/dl Calcium 8.6 (8.5-10.1) mg/dl Total Bilirubin 1.3 H (0.2-1) mg/dl AST 61 H (15-37) U/L ALT 20 (12-78) U/L Alkaline Phosphatase 86 (45-117) U/L Total Creatine Kinase 1147 H (39-308) U/L Troponin I 0.031 (0-0.045) ng/ml Total Protein 7.4 (6.4-8.2) gm/dl Albumin 3.0 L (3.4-5.0) gm/dl Globulin 4.4 H (2.5-4.0) gm/dl Albumin/Globulin Ratio 0.7 L (0.9-2) Procalcitonin (0-0.5) ng/ml TSH 2.340 (0.300-4.500) uIu/ml COVID-19 Eval Order SARS-CoV-2 (PCR) (Negative) 08/27/21 08/27/21 08/27/21 Range/Units 16:05 16:15 16:15 WBC (4.8-10.8) K/uL RBC (4.7-6.1) M/uL Hgb (14.0-18.0) g/dL Hct (42-52) % MCV (80-100) fL MCH (25-34) pg MCHC (32-36) g/dL RDW Std Deviation (36.4-46.3) fL RDW Coeff of Lacey (11.5-14.5) % Plt Count (130-400) K/uL MPV (7.4-10.4) fL Immature Gran % (Auto) % Neut % (Auto) % Lymph % (Auto) % Cedar % (Auto) % Eos % (Auto) % Baso % (Auto) % Neut # (Auto) (1.4-6.5) K/uL Lymph # (Auto) (1.2-3.4) K/uL Cedar # (Auto) (0.11-0.59) K/uL Eos # (Auto) (0-0.5) K/uL Baso # (Auto) (0-0.2) K/uL Immature Gran # (Auto) (0.00-0.02) K/uL PT (9.0-12.0) Seconds INR (0.9-1.1) Sodium (136-145) mmol/L Potassium (3.5-5.1) mmol/L Chloride (98-107) mmol/L Carbon Dioxide (21-32) mmol/L Anion Gap (3-11) BUN (7-18) mg/dl Creatinine (0.6-1.4) mg/dl Est Cr Clr Drug Dosing ml/min Est GFR ( Amer) ml/min Est GFR (Non-Af Amer) ml/min BUN/Creatinine Ratio (10-20) Glucose (70-99) mg/dl Calcium (8.5-10.1) mg/dl Total Bilirubin (0.2-1) mg/dl AST (15-37) U/L ALT (12-78) U/L Alkaline Phosphatase (45-117) U/L Total Creatine Kinase (39-308) U/L Troponin I (0-0.045) ng/ml Total Protein (6.4-8.2) gm/dl Albumin (3.4-5.0) gm/dl Globulin (2.5-4.0) gm/dl Albumin/Globulin Ratio (0.9-2) Procalcitonin < 0.05 (0-0.5) ng/ml TSH (0.300-4.500) uIu/ml COVID-19 Eval Order Covid19 at [facility] SARS-CoV-2 (PCR) NEGATIVE (Negative) Administered Medications Discontinued Medications Sodium Chloride (Nss) 500 mls @ 999 mls/hr IV .Q31M ONE Stop: 08/27/21 17:44 Last Infusion: 08/27/21 18:51 Dose: 0 mls/hr Documented by: [id number] Admin: 08/27/21 18:13 Dose: 999 mls/hr Documented by: [id number] Acetaminophen (Ofirmev) 1,000 mg in 100 mls @ 400 mls/hr IV NOW STA Stop: 08/27/21 17:28 Last Infusion: 08/27/21 18:51 Dose: 0 mls/hr Documented by: [id number] Admin: 08/27/21 18:14 Dose: 400 mls/hr Documented by: [id number] Ioversol (Optiray 320 100ml) 90 ml IV ONCE ONE Stop: 08/27/21 18:06 Last Admin: 08/27/21 18:05 Dose: 90 ml Documented by: [id number] Imaging Data Radiologist's Impression: Abdomen/Pelvis CT 08/27/21 15:36 CT SCAN OF THE CHEST, ABDOMEN, AND PELVIS WITH IV CONTRAST CLINICAL HISTORY: Trauma. Fall down stairs. COMPARISON STUDY: Chest CT dated 11/02/2015. TECHNIQUE: Following the IV administration of 90 of Optiray 320, CT scan of the chest, abdomen, and pelvis was performed from the thoracic inlet to the proximal femora. Images are reviewed in the axial, sagittal, and coronal planes. IV contrast was administered without complication. A dose lowering technique was utilized adhering to the principles of ALARA. There is motion artifact, as well as streak artifact from the arms which could not be elevated above the chest or abdomen. CT DOSE: 2740.59 mGy.cm FINDINGS: CHEST: Thyroid: Imaged portions of the thyroid gland are normal in size and attenuation. Thoracic aorta: Postoperative change is noted involving the ascending thoracic aorta. There is atherosclerotic calcification of the thoracic aorta, which is normal in caliber and demonstrates standard 3-vessel arch anatomy. No dissection is seen. Pulmonary vasculature: The pulmonary trunk is normal in caliber. There are no filling defects identified in the central pulmonary vessels to indicate pulmonary embolus. Note that this examination was not protocoled for evaluation of the pulmonary arteries. Heart: A 2-lead cardiac pacemaker is present in the left chest wall. The patient is status post midline sternotomy. The heart is enlarged and without pericardial effusion. Coronary arteries are densely calcified. Lungs and pleural spaces: Trace hemothorax is seen at the left lung base. No pneumothorax is identified. The trachea and central airways are clear. Scarring/atelectasis is noted at both lung bases. There are scattered calcified granulomas. Mediastinum: There is no hematoma. Scattered subcentimeter mediastinal lymph nodes are not pathologically enlarged by size criteria. Vesta: Clear. Axillae: There is no axillary lymphadenopathy. Bony thorax: The skeletal structures are osteopenic. There is an acute left posterior 4th rib fracture. There is a minimal acute superior endplate compression fracture of T12. The remainder of the bony thorax appears intact. Degenerative change and mild hyperkyphosis are noted in the thoracic spine. Arthritic changes seen in the shoulders. No lytic or blastic lesions are identified. ABDOMEN AND PELVIS: Liver: The contrast-enhanced liver is normal in size, contour, and attenuation. There is no intra- or extrahepatic biliary ductal dilatation. The hepatic veins and portal veins are patent. Gallbladder: Unremarkable. Spleen: Normal in size and attenuation. Pancreas: Moderately atrophic and grossly unremarkable. Adrenal glands: Unremarkable. Kidneys: The contrast enhanced kidneys are atrophic and without hydronephrosis. The kidneys enhance symmetrically. There are least 2 right renal cysts which measure up to 2.6 cm. Abdominal vasculature: There is advanced atherosclerotic calcification and mild ectasia of the abdominal aorta. Bowel: Moderate fecal retention is seen throughout the colon. There is no bowel obstruction. The appendix is not visualized. Peritoneum: There is no intraperitoneal free air or abdominal ascites. Lymphadenopathy: None. Pelvic viscera: The prostate gland is markedly enlarged and heterogeneous noting median lobe hypertrophy. The bladder is decompressed. The bladder wall appears thickened and trabeculated indicating chronic outlet obstruction. Skeletal structures: The skeletal structures are osteopenic. The lumbosacral spine, bony pelvis, and proximal femora appear intact. There is [id number] lumbosacral spondylosis. No lytic or blastic lesions are seen. IMPRESSION: 1. Significantly streak and motion compromised examination. 2. There is a mild acute superior endplate compression fracture of T12. 3. There is an acute left posterior 4th rib fracture. 4. Trace hemothorax is seen at the left lung base. 5. No pneumothorax. 6. Cardiomegaly. 7. There is no evidence of solid organ injury in the abdomen or pelvis. 8. Additional findings as above. ACT 112: Negative or not required by law. Electronically signed by: Rancho Roberts M.D. 08/27/2021 6:[address] 08/27/21 15:36 CT SCAN OF THE CERVICAL SPINE CLINICAL HISTORY: Trauma. Fall down stairs. COMPARISON STUDY: CT of the cervical spine dated 08/29/2018. TECHNIQUE: CT scan of the cervical spine is performed from the skull base to the upper thoracic spine. Images are reviewed in the axial, sagittal, and coronal planes. IV contrast was not administered for this examination. A dose lowering technique was utilized adhering to the principles of ALARA. FINDINGS: Skeletal structures: The skeletal structures are osteopenic. There is no evidence of fracture or subluxation involving the cervical spine. Vertebral body height and alignment are maintained. There is straightening of the cervical lordosis. Anterior osteophytes are seen throughout. The odontoid process and lateral masses are intact. The atlantoaxial articulation is preserved noting advanced productive degenerative change. The spinous processes appear intact. There is moderate multilevel cervical spondylosis. Uncovertebral and facet ar thropathy contribute to neural foraminal narrowing at several levels. Intervertebral discs: There is advanced disc space narrowing at C6-C7. Mild to moderate disc space narrowing is noted at the remaining cervical levels. Central canal: Posterior disc osteophyte complexes at C5-C6 and C6-C7 likely contribute to acquired compromise of the central canal. Soft tissues: The prevertebral and paraspinous soft tissues are within normal limits. There is atherosclerotic calcification of the carotid bulbs. Pacemaker leads are noted at the left thoracic inlet. A calcified sialolith is noted in the left parotid gland. Calvarium: The visualized calvarium at the skull base appears intact. Brain parenchyma: Partially visualized brain parenchyma at the skull base is within normal limits. Sinuses and mastoids: The visualized paranasal sinuses are clear. The mastoid air cells are well pneumatized. Lung apices: Clear as visualized. IMPRESSION: 1. There is no evidence of fracture or subluxation involving the cervical spine. 2. Osteopenia and spondylotic change as above. ACT 112: Negative or not required by law. Electronically signed by: Rancho Roberts M.D. 08/27/2021 6:[address] 08/27/21 15:36 CT SCAN OF THE CHEST, ABDOMEN, AND PELVIS WITH IV CONTRAST CLINICAL HISTORY: Trauma. Fall down stairs. COMPARISON STUDY: Chest CT dated 11/02/2015. TECHNIQUE: Following the IV administration of 90 of Optiray 320, CT scan of the chest, abdomen, and pelvis was performed from the thoracic inlet to the proximal femora. Images are reviewed in the axial, sagittal, and coronal planes. IV contrast was administered without complication. A dose lowering technique was utilized adhering to the principles of ALARA. There is motion artifact, as well as streak artifact from the arms which could not be elevated above the chest or abdomen. CT DOSE: 2740.59 mGy.cm FINDINGS: CHEST: Thyroid: Imaged portions of the thyroid gland are normal in size and attenuation. Thoracic aorta: Postoperative change is noted involving the ascending thoracic aorta. There is atherosclerotic calcification of the thoracic aorta, which is normal in caliber and demonstrates standard 3-vessel arch anatomy. No dissection is seen. Pulmonary vasculature: The pulmonary trunk is normal in caliber. There are no filling defects identified in the central pulmonary vessels to indicate pulmonary embolus. Note that this examination was not protocoled for evaluation of the pulmonary arteries. Heart: A 2-lead cardiac pacemaker is present in the left chest wall. The patient is status post midline sternotomy. The heart is enlarged and without pericardial effusion. Coronary arteries are densely calcified. Lungs and pleural spaces: Trace hemothorax is seen at the left lung base. No pneumothorax is identified. The trachea and central airways are clear. Scarring/atelectasis is noted at both lung bases. There are scattered calcified granulomas. Mediastinum: There is no hematoma. Scattered subcentimeter mediastinal lymph nodes are not pathologically enlarged by size criteria. Vesta: Clear. Axillae: There is no axillary lymphadenopathy. Bony thorax: The skeletal structures are osteopenic. There is an acute left posterior 4th rib fracture. There is a minimal acute superior endplate compression fracture of T12. The remainder of the bony thorax appears intact. Degenerative change and mild hyperkyphosis are noted in the thoracic spine. Arthritic changes seen in the shoulders. No lytic or blastic lesions are identified. ABDOMEN AND PELVIS: Liver: The contrast-enhanced liver is normal in size, contour, and attenuation. There is no intra- or extrahepatic biliary ductal dilatation. The hepatic veins and portal veins are patent. Gallbladder: Unremarkable. Spleen: Normal in size and attenuation. Pancreas: Moderately atrophic and grossly unremarkable. Adrenal glands: Unremarkable. Kidneys: The contrast enhanced kidneys are atrophic and without hydronephrosis. The kidneys enhance symmetrically. There are least 2 right renal cysts which measure up to 2.6 cm. Abdominal vasculature: There is advanced atherosclerotic calcification and mild ectasia of the abdominal aorta. Bowel: Moderate fecal retention is seen throughout the colon. There is no bowel obstruction. The appendix is not visualized. Peritoneum: There is no intraperitoneal free air or abdominal ascites. Lymphadenopathy: None. Pelvic viscera: The prostate gland is markedly enlarged and heterogeneous noting median lobe hypertrophy. The bladder is decompressed. The bladder wall appears thickened and trabeculated indicating chronic outlet obstruction. Skeletal structures: The skeletal structures are osteopenic. The lumbosacral spine, bony pelvis, and proximal femora appear intact. There is [id number] lumbosacral spondylosis. No lytic or blastic lesions are seen. IMPRESSION: 1. Significantly streak and motion compromised examination. 2. There is a mild acute superior endplate compression fracture of T12. 3. There is an acute left posterior 4th rib fracture. 4. Trace hemothorax is seen at the left lung base. 5. No pneumothorax. 6. Cardiomegaly. 7. There is no evidence of solid organ injury in the abdomen or pelvis. 8. Additional findings as above. ACT 112: Negative or not required by law. Electronically signed by: Rancho Roberts M.D. 08/27/2021 6:43 PM Chest X-Ray 08/27/21 15:36 SINGLE VIEW CHEST CLINICAL HISTORY: Fall. FINDINGS: An AP, portable, upright chest radiograph is compared to study dated 05/26/2021. A 2-lead cardiac pacemaker is unchanged in position. The patient is st atus post midline sternotomy. The heart is enlarged noting atherosclerotic calcification of the thoracic aorta. The pulmonary vasculature is noncongested. Chronic interstitial thickening is similar to previous. Scarring/atelectasis is noted at the lung bases. No airspace consolidation or large pleural effusion is identified. No pneumothorax is seen. The skeletal structures are osteopenic. The bony thorax is grossly intact. IMPRESSION: 1. Cardiomegaly and cardiac pacemaker. There is no radiographic evidence of congestive failure. 2. No airspace consolidation or large pleural effusion is identified. ACT 112: Negative or not required by law. Electronically signed by: Rancho Roberts M.D. 08/27/2021 4:[address] 08/27/21 15:36 CT SCAN OF THE BRAIN WITHOUT IV CONTRAST CLINICAL HISTORY: Trauma. Fall down stairs. COMPARISON STUDY: CT of the brain dated 05/26/2021. TECHNIQUE: Unenhanced axial CT scan of the brain is performed from the vertex to the skull base. A dose lowering technique was utilized adhering to the principles of ALARA. FINDINGS: Brain parenchyma: There are age-related involutional changes noting moderate to advanced confluent subcortical and periventricular microangiopathic change. There is no hemorrhage, mass effect, or evidence of acute territorial ischemia by CT criteria. 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 Smith-white matter differentiation is preserved. No extra-axial fluid collection is seen. Ventricles, sulci, cisterns: Prominent secondary to involutional change. Intracranial vasculature: There is atherosclerotic calcification of the cavernous carotid and vertebral arteries. Calvarium: The skeletal structures are osteopenic. There is no depressed calvarial fracture. Sinuses and mastoids: The visualized paranasal sinuses are clear. The mastoid air cells are well pneumatized. Orbits: The bony orbits are grossly intact. There are bilateral ocular lens implants. IMPRESSION: There is no hemorrhage, mass effect, or evidence of acute territorial ischemia by CT criteria. ACT 112: Negative or not required by law. Electronically signed by: Rancho Roberts M.D. 08/27/2021 6:17 PM Shoulder X-Ray 08/27/21 15:53 LEFT SHOULDER 3 VIEWS CLINICAL HISTORY: Fall. Left shoulder pain. FINDINGS: 3 views of the left shoulder are obtained. No prior studies are av ailable for comparison at the time of dictation. The skeletal structures are osteopenic. There is no radiographic evidence of left shoulder fracture or dislocation. Productive degenerative change is noted at the acromioclavicular joint. Mild arthritic change is also seen at the glenohumeral articulation. The overlying soft tissues are within normal limits. A cardiac pacemaker is in place. The patient is status post midline sternotomy and the heart is enlarged. Left lung parenchyma is clear as visualized. IMPRESSION: No acute bony abnormality is identified. Electronically signed by: Rancho Roberts M.D. 08/27/2021 4:38 PM Discharge Plan Visit Data Chief Complaint: Fall Stated Complaint: FALL ED Provider: Avni Candelario Discharge Problem: Fall, Weakness, Rhabdomyolysis, Left rib fracture, T12 compression fracture Patient Disposition: Being Evaluated by Hospitalist Forms Stand Alone Forms: [facility] Prescriptions Prescriptions: No Action atorvastatin [Lipitor] 20 mg tablet 20 mg PO QPM RF: 0 donepezil 5 mg tablet 5 mg PO DAILY RF: 0 aspirin 81 mg Tablet,Delayed Release (Dr/Ec) 81 mg PO DAILY RF: 0 furosemide 20 mg tablet 20 mg PO QAM RF: 0 carbidopa-levodopa 25-100 mg tablet 1 tab PO BID RF: 0 metoprolol tartrate 25 mg tablet 25 mg PO DAILY RF: 0 Referrals Referrals: Claribel Gaines MD [Primary Care Provider] - Discharge Problem: Fall Qualifiers: Encounter type: initial encounter Qualified Code(s): W19.XXXA - Unspecified fall, initial encounter Rhabdomyolysis Qualifiers: Rhabdomyolysis type: traumatic Encounter type: initial encounter Qualified Code(s): T79.6XXA - Traumatic ischemia of muscle, initial encounter Left rib fracture Qualifiers: Encounter type: initial encounter Rib fracture type: single rib Fracture type: closed Qualified Code(s): S22.32XA - Fracture of one rib, left side, initial encounter for closed fracture T12 compression fracture Qualifiers: Encounter type: initial encounter Qualified Code(s): S22.080A - Wedge compression fracture of T11-T12 vertebra, initial encounter for closed fracture
--- NOTE | 2021-08-27 16:19 | XRay Report ---
SINGLE VIEW CHEST CLINICAL HISTORY: Fall. FINDINGS: An AP, portable, upright chest radiograph is compared to study dated 05/26/2021. A 2-lead car diac pacemaker is unchanged in position. The patient is status post midline sternotomy. The heart is enlarged noting atherosclerotic calcification of the thoracic aorta. The pulmonary vasculature is non congested. Chronic interstitial thickening is similar to previous. Scarring/atelectasis is noted at t he lung bases. No airspace consolidation or large pleural effusion is identified. No pneumothorax is seen. The skeletal structures are osteopenic. The bony thorax is grossly intact. IMPRESSION: 1. Cardiomegaly and cardiac pacemaker. There is no radiographic evidence of congestive failure. 2. No airspace consolidation or large pleural effusion is identified. ACT 112: Negative or not required by law. Electronically signed by: Rancho Roberts M.D. 08/27/2021 4:18 PM
[2021-08-27 16:31] LABS: Basophils # (auto) 0.02 K/uL (0-0.2); Basophils % (auto) 0.2 %; Eosinophils # (auto) 0.11 K/uL (0-0.5); Eosinophils % (auto) 1.1 %; Hematocrit (blood only) 42.1 % (42-52); Hemoglobin 14.1 g/dL (14.0-18.0); Immature Granulocytes # (auto) 0.02 K/uL (0.00-0.02); Immature Granulocytes % (auto) 0.2 %; Lymphocytes # (auto) 0.99 K/uL (1.2-3.4); Lymphocytes % (auto) 10.1 %; Mean Corpuscular Hemoglobin 31.3 pg (25-34); Mean Corpuscular Hgb Conc 33.5 g/dL (32-36); Mean Corpuscular Volume 93.6 fL (80-100); Mean Platelet Volume 11.7 fL (7.4-10.4); Monocytes # (auto) 1.33 K/uL (0.11-0.59); Monocytes % (auto) 13.6 %; Neutrophils # (auto) 7.31 K/uL (1.4-6.5); Neutrophils % (auto) 74.8 %; Platelet Count 163 K/uL (130-400); White Blood Count 9.78 K/uL (4.8-10.8)
[2021-08-27 16:38] LABS: INR 1.1 (0.9-1.1)
--- NOTE | 2021-08-27 16:39 | XRay Report ---
LEFT SHOULDER 3 VIEWS CLINICAL HISTORY: Fall. Left shoulder pain. FINDINGS: 3 views of the left shoulder are obtained. No prior studies are available for comparison at the time of dictation. The skeletal structures are osteopenic. There is no radiographic evidence of left shoulder fracture or dislocation. Productive degenerative change is noted at the acromioclavicul ar joint. Mild arthritic change is also seen at the glenohumeral articulation. The overlying soft tis sues are within normal limits. A cardiac pacemaker is in place. The patient is status post midline st ernotomy and the heart is enlarged. Left lung parenchyma is clear as visualized. IMPRESSION: No acute bony abnormality is identified. Electronically signed by: Rancho Roberts M.D. 08/27/2021 4:38 PM
[2021-08-27 16:49] LABS: BUN Creatinine Ratio 24.2 (10-20); Calcium 8.6 mg/dl (8.5-10.1); Creatinine Clr Calc Pharmacy 69.8 ml/min; Est GFR (African American) 79.2 ml/min; Est GFR (Non-African American) 68.3 ml/min; Potassium 3.9 mmol/L (3.5-5.1)
[2021-08-27 17:04] LABS: Albumin Globulin Ratio 0.7 (0.9-2); Bilirubin,Total 1.3 mg/dl (0.2-1); Globulin 4.4 gm/dl (2.5-4.0); Thyroid Stimulating Hormone 2.34 uIu/ml (0.300-4.500); Total Protein 7.4 gm/dl (6.4-8.2); Troponin I 0.031 ng/ml (0-0.045)
[2021-08-27] MEDS ORDERED: SODIUM CHLORIDE 0.9% 500 ML IV ONE (17:14)
[2021-08-27] MEDS ORDERED: ACETAMINOPHEN 1,000 MG/100 ML VIAL IV STA (17:14)
[2021-08-27] MEDS ORDERED: OPTIRAY 320 100ml IV ONE (18:05)
--- NOTE | 2021-08-27 18:18 | CT Scan Report ---
CT SCAN OF THE BRAIN WITHOUT IV CONTRAST CLINICAL HISTORY: Trauma. Fall down stairs. COMPARISON STUDY: CT of the brain dated 05/26/2021. TECHNIQUE: Unenhanced axial CT scan of the brain is performed from the vertex to the skull base. A do se lowering technique was utilized adhering to the principles of ALARA. FINDINGS: Brain parenchyma: There are age-related involutional changes noting moderate to advanced confluent s ubcortical and periventricular microangiopathic change. There is no hemorrhage, mass effect, or evide nce of acute territorial ischemia by CT criteria. 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 Smith-white matter differentiation is preserved. No extra-axial fluid collection is see n. Ventricles, sulci, cisterns: Prominent secondary to involutional change. Intracranial vasculature: There is atherosclerotic calcification of the cavernous carotid and vertebr al arteries. Calvarium: The skeletal structures are osteopenic. There is no depressed calvarial fracture. Sinuses and mastoids: The visualized paranasal sinuses are clear. The mastoid air cells are well pneu matized. Orbits: The bony orbits are grossly intact. There are bilateral ocular lens implants. IMPRESSION: There is no hemorrhage, mass effect, or evidence of acute territorial ischemia by CT faustino fenton. ACT 112: Negative or not required by law. Electronically signed by: Rancho Roberts M.D. 08/27/2021 6:17 PM
--- NOTE | 2021-08-27 18:26 | CT Scan Report ---
CT SCAN OF THE CERVICAL SPINE CLINICAL HISTORY: Trauma. Fall down stairs. COMPARISON STUDY: CT of the cervical spine dated 08/29/2018. TECHNIQUE: CT scan of the cervical spine is performed from the skull base to the upper thoracic spine . Images are reviewed in the axial, sagittal, and coronal planes. IV contrast was not administered fo r this examination. A dose lowering technique was utilized adhering to the principles of ALARA. FINDINGS: Skeletal structures: The skeletal structures are osteopenic. There is no evidence of fracture or subl uxation involving the cervical spine. Vertebral body height and alignment are maintained. There is st raightening of the cervical lordosis. Anterior osteophytes are seen throughout. The odontoid process and lateral masses are intact. The atlantoaxial articulation is preserved noting advanced productive degenerative change. The spinous processes appear intact. There is moderate multilevel cervical spond ylosis. Uncovertebral and facet arthropathy contribute to neural foraminal narrowing at several level s. Intervertebral discs: There is advanced disc space narrowing at C6-C7. Mild to moderate disc space na rrowing is noted at the remaining cervical levels. Central canal: Posterior disc osteophyte complexes at C5-C6 and C6-C7 likely contribute to acquired c ompromise of the central canal. Soft tissues: The prevertebral and paraspinous soft tissues are within normal limits. There is athero sclerotic calcification of the carotid bulbs. Pacemaker leads are noted at the left thoracic inlet. A calcified sialolith is noted in the left parotid gland. Calvarium: The visualized calvarium at the skull base appears intact. Brain parenchyma: Partially visualized brain parenchyma at the skull base is within normal limits. Sinuses and mastoids: The visualized paranasal sinuses are clear. The mastoid air cells are well pneu matized. Lung apices: Clear as visualized. IMPRESSION: 1. There is no evidence of fracture or subluxation involving the cervical spine. 2. Osteopenia and spondylotic change as above. ACT 112: Negative or not required by law. Electronically signed by: Rancho Roberts M.D. 08/27/2021 6:25 PM
--- NOTE | 2021-08-27 18:45 | CT Scan Report ---
CT SCAN OF THE CHEST, ABDOMEN, AND PELVIS WITH IV CONTRAST CLINICAL HISTORY: Trauma. Fall down stairs. COMPARISON STUDY: Chest CT dated 11/02/2015. TECHNIQUE: Following the IV administration of 90 of Optiray 320, CT scan of the chest, abdomen, and p jl was performed from the thoracic inlet to the proximal femora. Images are reviewed in the axial, sagittal, and coronal planes. IV contrast was administered without complication. A dose lowering te chnique was utilized adhering to the principles of ALARA. There is motion artifact, as well as streak artifact from the arms which could not be elevated above the chest or abdomen. CT DOSE: 2740.59 mGy.cm FINDINGS: CHEST: Thyroid: Imaged portions of the thyroid gland are normal in size and attenuation. Thoracic aorta: Postoperative change is noted involving the ascending thoracic aorta. There is athero sclerotic calcification of the thoracic aorta, which is normal in caliber and demonstrates standard 3 -vessel arch anatomy. No dissection is seen. Pulmonary vasculature: The pulmonary trunk is normal in caliber. There are no filling defects identif ied in the central pulmonary vessels to indicate pulmonary embolus. Note that this examination was no t protocoled for evaluation of the pulmonary arteries. Heart: A 2-lead cardiac pacemaker is present in the left chest wall. The patient is status post midli ne sternotomy. The heart is enlarged and without pericardial effusion. Coronary arteries are densely calcified. Lungs and pleural spaces: Trace hemothorax is seen at the left lung base. No pneumothorax is identifi ed. The trachea and central airways are clear. Scarring/atelectasis is noted at both lung bases. Ther e are scattered calcified granulomas. Mediastinum: There is no hematoma. Scattered subcentimeter mediastinal lymph nodes are not pathologic ally enlarged by size criteria. Vesta: Clear. Axillae: There is no axillary lymphadenopathy. Bony thorax: The skeletal structures are osteopenic. There is an acute left posterior 4th rib fractur e. There is a minimal acute superior endplate compression fracture of T12. The remainder of the bony thorax appears intact. Degenerative change and mild hyperkyphosis are noted in the thoracic spine. Ar thritic changes seen in the shoulders. No lytic or blastic lesions are identified. ABDOMEN AND PELVIS: Liver: The contrast-enhanced liver is normal in size, contour, and attenuation. There is no intra- or extrahepatic biliary ductal dilatation. The hepatic veins and portal veins are patent. Gallbladder: Unremarkable. Spleen: Normal in size and attenuation. Pancreas: Moderately atrophic and grossly unremarkable. Adrenal glands: Unremarkable. Kidneys: The contrast enhanced kidneys are atrophic and without hydronephrosis. The kidneys enhance s ymmetrically. There are least 2 right renal cysts which measure up to 2.6 cm. Abdominal vasculature: There is advanced atherosclerotic calcification and mild ectasia of the abdomi nal aorta. Bowel: Moderate fecal retention is seen throughout the colon. There is no bowel obstruction. The appe ndix is not visualized. Peritoneum: There is no intraperitoneal free air or abdominal ascites. Lymphadenopathy: None. Pelvic viscera: The prostate gland is markedly enlarged and heterogeneous noting median lobe hypertro phy. The bladder is decompressed. The bladder wall appears thickened and trabeculated indicating sorting and folding supervisor destin outlet obstruction. Skeletal structures: The skeletal structures are osteopenic. The lumbosacral spine, bony pelvis, and proximal femora appear intact. There is [id number] lumbosacral spondylosis. No lytic or blastic lesions are seen. IMPRESSION: 1. Significantly streak and motion compromised examination. 2. There is a mild acute superior endplate compression fracture of T12. 3. There is an acute left posterior 4th rib fracture. 4. Trace hemothorax is seen at the left lung base. 5. No pneumothorax. 6. Cardiomegaly. 7. There is no evidence of solid organ injury in the abdomen or pelvis. 8. Additional findings as above. ACT 112: Negative or not required by law. Electronically signed by: Rancho Roberts M.D. 08/27/2021 6:43 PM
[2021-08-27] MEDS ORDERED: KETOROLAC TROMETHAMINE 15 MG/ML VIAL IV PRN (19:49)
[2021-08-27] MEDS ORDERED: ACETAMINOPHEN 325 MG TAB PO PRN (19:49)
[2021-08-27] MEDS ORDERED: LIDOCAINE 5% 1 PATCH TD STA (21:08)
[2021-08-27 22:03] LABS: Appearance Urine Clear (Clear); Bacteria Urine Automated Negative (Negative); Bilirubin Urine Negative (Negative); Blood Urine 2+ (Negative); Color Urine Dark Yellow; Epithelial Cell Urine Auto >30 /lpf (0-5); Glucose Urine UA Negative (Negative); Ketones Urine Negative (Negative); Leukocyte Esterase Urine Negative (Negative); Nitrite Urine Negative (Negative); Protein Urine Trace (Negative); Specific Gravity Urine 1.033 (1.000-1.030); Urobilinogen Urine Positive (Negative); pH Urine 6.5 (4.5-7.5)
[2021-08-27] MEDS ORDERED: LORazepam 0.25 MG/0.5 ML VIAL IV PRN (22:12)
--- NOTE | 2021-08-27 22:29 | History & Physical Report ---
Date of Service August 27, 2021 Assessment & Plan (1) Rhabdomyolysis: Plan: Traumatic rhabdomyolysis secondary to mechanical fall hx worsening ambulatory/cognitive dysfunction from Parkinson's disease/Lewy body dementia Traumatic hemothorax/rib fractures/thoracic compression fracture secondary to fall Patient currently hemodynamically stable. hx CAD sp CABG/stenting/aortic stenosis sp bioprosthetic AVR/TAA status post surgery SSS sp PPM not on anticoagulation secondary to bleeding, paced rhythm HTN, slightly elevated secondary discomfort Medical telemetry given BP elevation Analgesia, facilitate home BP meds Monitor CPK response to IVF Hold statin for now until CPK within normal limits Follow H&H given hemothorax, transfuse PRBC if hemoglobin less than 8 and or for symptomatic anemia Hold home aspirin until hemoglobin stable Delirium precautions PT OT eval Social service RE discharge planning/placement (Patient unable to care for patient at home.) DVT prophylaxis. SCDs RE hemothorax DNR as per patient's prior wishes. Patient's requesting updates from providers. Ms. Audelia Hdz, contact numbers [phone]. History of Present Illness Chief Complaint: Left-sided chest pain, fall history as per records Primary Care Provider: Claribel Gaines MD History obtained from patient, family, and records. Limited history from patient secondary to dementia. Medical history significant for CAD sp CABG/stenting, aortic stenosis sp bioprosthetic AVR, TAA status post surgery, PFO as per records, SSS sp PPM not on anticoagulation secondary to bleeding, HTN, Parkinson's disease/Lewy body dementia, hemolytic anemia as per records, history of dysphagia, esophageal dysmotility as per records. Last confinement May 2021 for altered mental status. Patient discharged to [facility] rehab facility. Subsequently discharged home after a month of stay. Patient declining at home the last few months as per . Cognitive function and balance worsening. Worsening visual hallucinations. Outpatient providers and some friends have discussed finding a special home for patient. 3 days ago, patient fell down a flight of steps at the basement of his home. Patient complained of achy left-sided chest pain. No LOC as per . Patient was seen at PCPs office. Directed to the ER but patient did not comply. Patient consulted ER today because of worsening pleuritic left-sided chest pain. MEDICAL HISTORY: As above. SURGICAL HISTORY: Laser surgery of the eye, pacemaker placement, CABG, aortic aneurysm repair, aortic valve surgery. FAMILY HISTORY: Heart disease, SLE PERSONAL AND SOCIAL HISTORY: Nonsmoker, no chronic ETOH intake. 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 Lives with Allergies Allergy/AdvReac Type Severity Reaction Status Date / Time No Known Allergies Allergy Verified 08/27/21 19:28 Home Medications Medication Instructions Recorded Confirmed Type aspirin 81 mg tablet,delayed 81 mg PO DAILY 05/26/21 08/27/21 History release atorvastatin 20 mg tablet (Lipitor) 20 mg PO QPM 05/26/21 08/27/21 History carbidopa 25 mg-levodopa 100 mg 1 tab PO BID 05/26/21 08/27/21 History tablet donepezil 5 mg tablet 5 mg PO DAILY 05/26/21 08/27/21 History furosemide 20 mg tablet 20 mg PO QAM 05/26/21 08/27/21 History metoprolol tartrate 25 mg tablet 25 mg PO DAILY 08/27/21 08/27/21 History Past Med/Surg History Medical History (Updated 08/28/21 @ 10:48 by Italia Hewitt PA-C) Aortic aneurysm Aortic stenosis Atrial fibrillation CAD (coronary artery disease) Dementia Hemolytic anemia HLD (hyperlipidemia) HTN (hypertension) [facility] Pacemaker Parkinsons disease Surgical History H/O prosthetic heart valve History of cataract surgery right Hx of heart bypass surgery Social History Smoking Status: Unknown if ever smoked Preferred Language: Lithuanian Communication Ability: Unable Visual Impairment: No Limitations Hearing Ability: Normal Envelope Fold Operator Required: No Beliefs That Will Affect Care: None marital status: Current Living Situation: Spouse Current Living Situation Comment: resident at [facility] Feels Safe at Home: Yes Assistive Devices: Walker Review of Systems Review of Systems: Could not be reliably obtained Physical Exam Physical Exam: GENERAL: Oriented to year, restless, hypophonic, no respiratory distress SKIN: Normal color, warm HEENT: [place] palpebral conjunctivae, no ptosis, dry buccal mucosa NECK : Supple, no tenderness CHEST : Decreased breath sounds, minimal left chest wall tenderness HEART : RRR, no obvious murmurs ABDOMEN: Some distention, nontender EXTREMITIES : No LE swelling/tenderness, no other conspicuous deformities noted NEUROLOGIC : Incoherent, slightly hard of hearing, no facial asymmetry, restless, gait and stance not assessed Results & Data Results & Data ([facility]) Vital Signs (Past 12 Hours) Vital Signs Temp Pulse Resp BP Pulse Ox 08/27/21 20:30 77 27 H 145/74 H 98 08/27/21 20:00 65 21 178/101 H 08/27/21 19:30 15 93 08/27/21 19:00 18 92 08/27/21 18:30 65 25 H 143/95 H 91 08/27/21 17:30 65 22 141/89 H 93 08/27/21 17:00 65 25 H 144/101 H 92 08/27/21 16:30 24 151/90 H 92 08/27/21 15:36 66 18 95 08/27/21 15:03 37.1 C 66 18 165/101 H 95 Laboratory Results Laboratory Results WBC 9.78 K/uL (4.8-10.8) 08/27/21 16:05 RBC 4.50 M/uL (4.7-6.1) L 08/27/21 16:05 Hgb 14.1 g/dL (14.0-18.0) 08/27/21 16:05 Hct 42.1 % (42-52) 08/27/21 16:05 MCV 93.6 fL (80-100) 08/27/21 16:05 MCH 31.3 pg (25-34) 08/27/21 16:05 MCHC 33.5 g/dL (32-36) 08/27/21 16:05 RDW Std Deviation 48.0 fL (36.4-46.3) H 08/27/21 16:05 RDW Coeff of Lacey 14.0 % (11.5-14.5) 08/27/21 16:05 Plt Count 163 K/uL (130-400) 08/27/21 16:05 MPV 11.7 fL (7.4-10.4) H 08/27/21 16:05 Immature Gran % (Auto) 0.2 % 08/27/21 16:05 Neut % (Auto) 74.8 % 08/27/21 16:05 Lymph % (Auto) 10.1 % 08/27/21 16:05 [place] % (Auto) 13.6 % 08/27/21 16:05 Eos % (Auto) 1.1 % 08/27/21 16:05 Baso % (Auto) 0.2 % 08/27/21 16:05 Neut # (Auto) 7.31 K/uL (1.4-6.5) H 08/27/21 16:05 Lymph # (Auto) 0.99 K/uL (1.2-3.4) L 08/27/21 16:05 [place] # (Auto) 1.33 K/uL (0.11-0.59) H 08/27/21 16:05 Eos # (Auto) 0.11 K/uL (0-0.5) 08/27/21 16:05 Baso # (Auto) 0.02 K/uL (0-0.2) 08/27/21 16:05 Immature Gran # (Auto) 0.02 K/uL (0.00-0.02) 08/27/21 16:05 PT 11.0 Seconds (9.0-12.0) 08/27/21 16:05 INR 1.1 (0.9-1.1) 08/27/21 16:05 Sodium 139 mmol/L (136-145) 08/27/21 16:05 Potassium 3.9 mmol/L (3.5-5.1) 08/27/21 16:05 Chloride 106 mmol/L (98-107) 08/27/21 16:05 Carbon Dioxide 27 mmol/L (21-32) 08/27/21 16:05 Anion Gap 7.0 (3-11) 08/27/21 16:05 BUN 24 mg/dl (7-18) H 08/27/21 16:05 Creatinine 1.00 mg/dl (0.6-1.4) 08/27/21 16:05 Est Cr Clr Drug Dosing 69.8 ml/min 08/27/21 16:05 Est GFR ( Amer) 79.2 ml/min 08/27/21 16:05 Est GFR (Non-Af Amer) 68.3 ml/min 08/27/21 16:05 BUN/Creatinine Ratio 24.2 (10-20) H 08/27/21 16:05 Glucose 122 mg/dl (70-99) H 08/27/21 16:05 Calcium 8.6 mg/dl (8.5-10.1) 08/27/21 16:05 Total Bilirubin 1.3 mg/dl (0.2-1) H 08/27/21 16:05 AST 61 U/L (15-37) H 08/27/21 16:05 ALT 20 U/L (12-78) 08/27/21 16:05 Alkaline Phosphatase 86 U/L (45-117) 08/27/21 16:05 Total Creatine Kinase 1147 U/L (39-308) H 08/27/21 16:05 Troponin I 0.031 ng/ml (0-0.045) 08/27/21 16:05 Total Protein 7.4 gm/dl (6.4-8.2) 08/27/21 16:05 Albumin 3.0 gm/dl (3.4-5.0) L 08/27/21 16:05 Globulin 4.4 gm/dl (2.5-4.0) H 08/27/21 16:05 Albumin/Globulin Ratio 0.7 (0.9-2) L 08/27/21 16:05 Procalcitonin < 0.05 ng/ml (0-0.5) 08/27/21 16:05 TSH 2.340 uIu/ml (0.300-4.500) 08/27/21 16:05 Urine Color Dark Yellow 08/27/21 21:48 Urine Appearance Clear (Clear) 08/27/21 21:48 Urine pH 6.5 (4.5-7.5) 08/27/21 21:48 Ur Specific Iva 1.033 (1.000-1.030) H 08/27/21 21:48 Urine Protein Trace (Negative) H 08/27/21 21:48 Urine Glucose (UA) Negative (Negative) 08/27/21 21:48 Urine Ketones Negative (Negative) 08/27/21 21:48 Urine Blood 2+ (Negative) H 08/27/21 21:48 Urine Nitrite Negative (Negative) 08/27/21 21:48 Urine Bilirubin Negative (Negative) 08/27/21 21:48 Urine Urobilinogen Positive (Negative) H 08/27/21 21:48 Ur Leukocyte Esterase Negative (Negative) 08/27/21 21:48 Urine WBC (Auto) 5-10 /hpf (0-5) H 08/27/21 21:48 Urine RBC (Auto) 10-30 /hpf (0-4) H 08/27/21 21:48 U Hyaline Cast (Auto) 1-5 /lpf (0-5) 08/27/21 21:48 U Epithel Cells (Auto) >30 /lpf (0-5) H 08/27/21 21:48 Urine Bacteria (Auto) Negative (Negative) 08/27/21 21:48 COVID-19 Eval Order Covid19 at [facility] 08/27/21 16:15 SARS-CoV-2 (PCR) NEGATIVE (Negative) 08/27/21 16:15 Impressions Abdomen/Pelvis CT 08/27/21 15:36 CT SCAN OF THE CHEST, ABDOMEN, AND PELVIS WITH IV CONTRAST CLINICAL HISTORY: Trauma. Fall down stairs. COMPARISON STUDY: Chest CT dated 11/02/2015. TECHNIQUE: Following the IV administration of 90 of Optiray 320, CT scan of the chest, abdomen, and pelvis was performed from the thoracic inlet to the proximal femora. Images are reviewed in the axial, sagittal, and coronal planes. IV contrast was administered without complication. A dose lowering technique was utilized adhering to the principles of ALARA. There is motion artifact, as well as streak artifact from the arms which could not be elevated above the chest or abdomen. CT DOSE: 2740.59 mGy.cm FINDINGS: CHEST: Thyroid: Imaged portions of the thyroid gland are normal in size and attenuation. Thoracic aorta: Postoperative change is noted involving the ascending thoracic aorta. There is atherosclerotic calcification of the thoracic aorta, which is normal in caliber and demonstrates standard 3-vessel arch anatomy. No dissection is seen. Pulmonary vasculature: The pulmonary trunk is normal in caliber. There are no filling defects identified in the central pulmonary vessels to indicate pulmonary embolus. Note that this examination was not protocoled for evaluation of the pulmonary arteries. Heart: A 2-lead cardiac pacemaker is present in the left chest wall. The patient is status post midline sternotomy. The heart is enlarged and without pericardial effusion. Coronary arteries are densely calcified. Lungs and pleural spaces: Trace hemothorax is seen at the left lung base. No pneumothorax is identified. The trachea and central airways are clear. Scarring/atelectasis is noted at both lung bases. There are scattered calcified granulomas. Mediastinum: There is no hematoma. Scattered subcentimeter mediastinal lymph nodes are not pathologically enlarged by size criteria. Vesta: Clear. Axillae: There is no axillary lymphadenopathy. Bony thorax: The skeletal structures are osteopenic. There is an acute left posterior 4th rib fracture. There is a minimal acute superior endplate compression fracture of T12. The remainder of the bony thorax appears intact. Degenerative change and mild hyperkyphosis are noted in the thoracic spine. Arthritic changes seen in the shoulders. No lytic or blastic lesions are identified. ABDOMEN AND PELVIS: Liver: The contrast-enhanced liver is normal in size, contour, and attenuation. There is no intra- or extrahepatic biliary ductal dilatation. The hepatic veins and portal veins are patent. Gallbladder: Unremarkable. Spleen: Normal in size and attenuation. Pancreas: Moderately atrophic and grossly unremarkable. Adrenal glands: Unremarkable. Kidneys: The contrast enhanced kidneys are atrophic and without hydronephrosis. The kidneys enhance symmetrically. There are least 2 right renal cysts which measure up to 2.6 cm. Abdominal vasculature: There is advanced atherosclerotic calcification and mild ectasia of the abdominal aorta. Bowel: Moderate fecal retention is seen throughout the colon. There is no bowel obstruction. The appendix is not visualized. Peritoneum: There is no intraperitoneal free air or abdominal ascites. Lymphadenopathy: None. Pelvic viscera: The prostate gland is markedly enlarged and heterogeneous noting median lobe hypertrophy. The bladder is decompressed. The bladder wall appears thickened and trabeculated indicating chronic outlet obstruction. Skeletal structures: The skeletal structures are osteopenic. The lumbosacral spine, bony pelvis, and proximal femora appear intact. There is [id number] lumbosacral spondylosis. No lytic or blastic lesions are seen. IMPRESSION: 1. Significantly streak and motion compromised examination. 2. There is a mild acute superior endplate compression fracture of T12. 3. There is an acute left posterior 4th rib fracture. 4. Trace hemothorax is seen at the left lung base. 5. No pneumothorax. 6. Cardiomegaly. 7. There is no evidence of solid organ injury in the abdomen or pelvis. 8. Additional findings as above. ACT 112: Negative or not required by law. Electronically signed by: Rancho Roberts M.D. 08/27/2021 6:[address] 08/27/21 15:36 CT SCAN OF THE CERVICAL SPINE CLINICAL HISTORY: Trauma. Fall down stairs. COMPARISON STUDY: CT of the cervical spine dated 08/29/2018. TECHNIQUE: CT scan of the cervical spine is performed from the skull base to the upper thoracic spine. Images are reviewed in the axial, sagittal, and coronal planes. IV contrast was not administered for this examination. A dose lowering technique was utilized adhering to the principles of ALARA. FINDINGS: Skeletal structures: The skeletal structures are osteopenic. There is no evidence of fracture or subluxation involving the cervical spine. Vertebral body height and alignment are maintained. There is straightening of the cervical lordosis. Anterior osteophytes are seen throughout. The odontoid process and lateral masses are intact. The atlantoaxial articulation is preserved noting advanced productive degenerative change. The spinous processes appear intact. There is moderate multilevel cervical spondylosis. Uncovertebral and facet arthropathy contribute to neural foraminal narrowing at several levels. Intervertebral discs: There is advanced disc space narrowing at C6-C7. Mild to moderate disc space narrowing is noted at the remaining cervical levels. Central canal: Posterior disc osteophyte complexes at C5-C6 and C6-C7 likely contribute to acquired compromise of the central canal. Soft tissues: The prevertebral and paraspinous soft tissues are within normal limits. There is atherosclerotic calcification of the carotid bulbs. Pacemaker leads are noted at the left thoracic inlet. A calcified sialolith is noted in the left parotid gland. Calvarium: The visualized calvarium at the skull base appears intact. Brain parenchyma: Partially visualized brain parenchyma at the skull base is within normal limits. Sinuses and mastoids: The visualized paranasal sinuses are clear. The mastoid air cells are well pneumatized. Lung apices: Clear as visualized. IMPRESSION: 1. There is no evidence of fracture or subluxation involving the cervical spine. 2. Osteopenia and spondylotic change as above. ACT 112: Negative or not required by law. Electronically signed by: Rancho Roberts M.D. 08/27/2021 6:[address] 08/27/21 15:36 CT SCAN OF THE CHEST, ABDOMEN, AND PELVIS WITH IV CONTRAST CLINICAL HISTORY: Trauma. Fall down stairs. COMPARISON STUDY: Chest CT dated 11/02/2015. TECHNIQUE: Following the IV administration of 90 of Optiray 320, CT scan of the chest, abdomen, and pelvis was performed from the thoracic inlet to the proximal femora. Images are reviewed in the axial, sagittal, and coronal planes. IV contrast was administered without complication. A dose lowering technique was utilized adhering to the principles of ALARA. There is motion artifact, as well as streak artifact from the arms which could not be elevated above the chest or abdomen. CT DOSE: 2740.59 mGy.cm FINDINGS: CHEST: Thyroid: Imaged portions of the thyroid gland are normal in size and attenuation. Thoracic aorta: Postoperative change is noted involving the ascending thoracic aorta. There is atherosclerotic calcification of the thoracic aorta, which is normal in caliber and demonstrates standard 3-vessel arch anatomy. No dissection is seen. Pulmonary vasculature: The pulmonary trunk is normal in caliber. There are no filling defects identified in the central pulmonary vessels to indicate pulmonary embolus. Note that this examination was not protocoled for evaluation of the pulmonary arteries. Heart: A 2-lead cardiac pacemaker is present in the left chest wall. The patient is status post midline sternotomy. The heart is enlarged and without pericardial effusion. Coronary arteries are densely calcified. Lungs and pleural spaces: Trace hemothorax is seen at the left lung base. No pneumothorax is identified. The trachea and central airways are clear. Scarring/atelectasis is noted at both lung bases. There are scattered calcified granulomas. Mediastinum: There is no hematoma. Scattered subcentimeter mediastinal lymph nodes are not pathologically enlarged by size criteria. [place]: Clear. Axillae: There is no axillary lymphadenopathy. Bony thorax: The skeletal structures are osteopenic. There is an acute left posterior 4th rib fracture. There is a minimal acute superior endplate compression fracture of T12. The remainder of the bony thorax appears intact. Degenerative change and mild hyperkyphosis are noted in the thoracic spine. Arthritic changes seen in the shoulders. No lytic or blastic lesions are identified. ABDOMEN AND PELVIS: Liver: The contrast-enhanced liver is normal in size, contour, and attenuation. There is no intra- or extrahepatic biliary ductal dilatation. The hepatic veins and portal veins are patent. Gallbladder: Unremarkable. Spleen: Normal in size and attenuation. Pancreas: Moderately atrophic and grossly unremarkable. Adrenal glands: Unremarkable. Kidneys: The contrast enhanced kidneys are atrophic and without hydronephrosis. The kidneys enhance symmetrically. There are least 2 right renal cysts which measure up to 2.6 cm. Abdominal vasculature: There is advanced atherosclerotic calcification and mild ectasia of the abdominal aorta. Bowel: Moderate fecal retention is seen throughout the colon. There is no bowel obstruction. The appendix is not visualized. Peritoneum: There is no intraperitoneal free air or abdominal ascites. Lymphadenopathy: None. Pelvic viscera: The prostate gland is markedly enlarged and heterogeneous noting median lobe hypertrophy. The bladder is decompressed. The bladder wall appears thickened and trabeculated indicating chronic outlet obstruction. Skeletal structures: The skeletal structures are osteopenic. The lumbosacral spine, bony pelvis, and proximal femora appear intact. There is [id number] lumbosacral spondylosis. No lytic or blastic lesions are seen. IMPRESSION: 1. Significantly streak and motion compromised examination. 2. There is a mild acute superior endplate compression fracture of T12. 3. There is an acute left posterior 4th rib fracture. 4. Trace hemothorax is seen at the left lung base. 5. No pneumothorax. 6. Cardiomegaly. 7. There is no evidence of solid organ injury in the abdomen or pelvis. 8. Additional findings as above. ACT 112: Negative or not required by law. Electronically signed by: Rancho Roberts M.D. 08/27/2021 6:43 PM Chest X-Ray 08/27/21 15:36 SINGLE VIEW CHEST CLINICAL HISTORY: Fall. FINDINGS: An AP, portable, upright chest radiograph is compared to study dated 05/26/2021. A 2-lead cardiac pacemaker is unchanged in position. The patient is status post midline sternotomy. The heart is enlarged noting atherosclerotic calcification of the thoracic aorta. The pulmonary vasculature is noncongested. Chronic interstitial thickening is similar to previous. Scarring/atelectasis is noted at the lung bases. No airspace consolidation or large pleural effusion is identified. No pneumothorax is seen. The skeletal structures are osteopenic. The bony thorax is grossly intact. IMPRESSION: 1. Cardiomegaly and cardiac pacemaker. There is no radiographic evidence of congestive failure. 2. No airspace consolidation or large pleural effusion is identified. ACT 112: Negative or not required by law. Electronically signed by: Rancho Roberts M.D. 08/27/2021 4:[address] 08/27/21 15:36 CT SCAN OF THE BRAIN WITHOUT IV CONTRAST CLINICAL HISTORY: Trauma. Fall down stairs. COMPARISON STUDY: CT of the brain dated 05/26/2021. TECHNIQUE: Unenhanced axial CT scan of the brain is performed from the vertex to the skull base. A dose lowering technique was utilized adhering to the principles of ALARA. FINDINGS: Brain parenchyma: There are age-related involutional changes noting moderate to advanced confluent subcortical and periventricular microangiopathic change. There is no hemorrhage, mass effect, or evidence of acute territorial ischemia by CT criteria. 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 Smith-white matter differentiation is preserved. No extra-axial fluid collection is seen. Ventricles, sulci, cisterns: Prominent secondary to involutional change. Intracranial vasculature: There is atherosclerotic calcification of the cavernous carotid and vertebral arteries. Calvarium: The skeletal structures are osteopenic. There is no depressed calvarial fracture. Sinuses and mastoids: The visualized paranasal sinuses are clear. The mastoid air cells are well pneumatized. Orbits: The bony orbits are grossly intact. There are bilateral ocular lens implants. IMPRESSION: There is no hemorrhage, mass effect, or evidence of acute territorial ischemia by CT criteria. ACT 112: Negative or not required by law. Electronically signed by: Rancho Roberts M.D. 08/27/2021 6:17 PM Shoulder X-Ray 08/27/21 15:53 LEFT SHOULDER 3 VIEWS CLINICAL HISTORY: Fall. Left shoulder pain. FINDINGS: 3 views of the left shoulder are obtained. No prior studies are available for comparison at the time of dictation. The skeletal structures are osteopenic. There is no radiographic evidence of left shoulder fracture or dislocation. Productive degenerative change is noted at the acromioclavicular joint. Mild arthritic change is also seen at the glenohumeral articulation. The overlying soft tissues are within normal limits. A cardiac pacemaker is in place. The patient is status post midline sternotomy and the heart is enlarged. Left lung parenchyma is clear as visualized. IMPRESSION: No acute bony abnormality is identified. Electronically signed by: Rancho Roberts M.D. 08/27/2021 4:38 PM Diagnostic Findings EKG as per my interpretation rate 65, paced rhythm (1) Rhabdomyolysis Encounter type: initial encounter Rhabdomyolysis type: traumatic Qualified Code(s): T79.6XXA - Traumatic ischemia of muscle, initial encounter
[2021-08-28] MEDS ORDERED: LIDOCAINE 5% 1 PATCH TD ONE (00:40)
[2021-08-28] MEDS: LACTATED RINGER'S 1,000 ML IV SCH ×2 (00:48→13:18)
[2021-08-28] MEDS: CARBIDOPA/LEVODOPA 25/100MG TAB PO SCH ×3 (00:48→20:18)
[2021-08-28] MEDS ORDERED: MoRPHine SULFATE 2 MG/ML CARP IV PRN (01:14)
[2021-08-28] MEDS ORDERED: PROMETHAZINE HCL 12.5 MG in SODIUM CHLORIDE 0.9% 50 ML IV PRN (01:14)
[2021-08-28] MEDS ORDERED: traMADol HCL 50 MG TABLET PO PRN (01:14)
[2021-08-28 06:08] LABS: Basophils # (auto) 0.02 K/uL (0-0.2); Basophils % (auto) 0.2 %; Eosinophils # (auto) 0.15 K/uL (0-0.5); Eosinophils % (auto) 1.6 %; Hematocrit (blood only) 40.8 % (42-52); Hemoglobin 13.7 g/dL (14.0-18.0); Immature Granulocytes # (auto) 0.02 K/uL (0.00-0.02); Immature Granulocytes % (auto) 0.2 %; Lymphocytes # (auto) 1.33 K/uL (1.2-3.4); Lymphocytes % (auto) 14.5 %; Mean Corpuscular Hemoglobin 31.4 pg (25-34); Mean Corpuscular Hgb Conc 33.6 g/dL (32-36); Mean Corpuscular Volume 93.4 fL (80-100); Mean Platelet Volume 11.4 fL (7.4-10.4); Monocytes # (auto) 1.31 K/uL (0.11-0.59); Monocytes % (auto) 14.3 %; Neutrophils # (auto) 6.36 K/uL (1.4-6.5); Neutrophils % (auto) 69.2 %; Platelet Count 173 K/uL (130-400); RDW Standard Deviation 47.9 fL (36.4-46.3); Red Blood Count 4.37 M/uL (4.7-6.1); White Blood Count 9.19 K/uL (4.8-10.8)
[2021-08-28 06:27] LABS: Calcium 8.5 mg/dl (8.5-10.1); Creatinine Clr Calc Pharmacy 82.1 ml/min; Est GFR (African American) 92.1 ml/min; Est GFR (Non-African American) 79.5 ml/min; Potassium 3.6 mmol/L (3.5-5.1)
[2021-08-28] MEDS ORDERED: PNEUMOCOCCAL POLYSACCHARIDES 25 MCG/0.5 ML VIAL/SYR IM ONE (08:00)
[2021-08-28] MEDS ORDERED: INFLUENZA VACCINE HIGH DOSE PF 65+ 0.7 ML SYR IM ONE (08:00)
[2021-08-28] MEDS: METOPROLOL TARTRATE 25 MG TAB PO SCH (09:52)
[2021-08-28] MEDS: DONEPEZIL HCL 5 MG TAB PO SCH (09:52)
--- NOTE | 2021-08-28 10:56 | Hospitalist Progress Note ---
Date of Service August 28, 2021 Assessment & Plan (1) Fall: (2) Weakness: (3) Rhabdomyolysis: (4) Left rib fracture: (5) T12 compression fracture: (6) Parkinson's disease: (7) Lewy body dementia: (8) CAD (coronary artery disease): (9) Pacemaker: (10) DVT prophylaxis: Plan: This is a 85-year-old male who has significant past medical history of Parkinson's disease, Lewy body dementia, CAD with history of CABG, pacemaker placement, severe aortic stenosis status post AVR, history of aortic aneurysm status post repair, PAF, hypertension, acquired hemolytic anemia who presents to ED after sustaining a fall 3 days prior to arrival as well as a fall on day of admission. He further had increased weakness and inability to care for self and therefore was brought in for evaluation. Patient was found to have rhabdomyolysis, left fourth rib fracture, small pneumothorax and minimal acute superior endplate compression deformity at T12.In ED he received IV fluid and IV Tylenol. Fall Weakness Rhabdomyolysis admit to PCU continue gentle IVF CK trending down 1147 --> 700, mild elevation in AST and t bili PT/OT case management Left Posterior 4th rib fracture Trace hemothorax conservative tx, lidocaine patch ordered schedule APAP tramadol prn encourage incentive spirometry, saturating well on room air Mild acute superior endplate compression fracture of T 12 conservative tx, pain control PT/OT consulted Parkinson disease Lewey body dementia continue sinemet, aricept mood stable, no agitation CAD Hx of CABG PAF - [id number] 3 - not anticoagulated 2/2 to age, falls Severe s/p AVR Pacemaker continue asa, statin, metoprolol follows Dr. Mejia, pt is due for upcoming device gen change DVT ppx: SCD/TEDS for now in setting of trace hemothorax, fall risk and age Dispo: Admit to PCU, likely discharge to rehab or SNF when medically stable PCP: Dr. Claribel Gaines DNR/DNI Pt was seen and examined in collaboration with Dr. Fontanez, please see addendum Admission and Anticipated Discharge Date Admission Date: August 27, 2021 Supervising Physician Co-Signing Physician Notes Patient is a 85-year-old male with history of Parkinson disease, Lewy body dementia, coronary artery disease and other medical problems was seen and examined at bedside. Patient is a very poor historian secondary to dementia. Unable to obtain any history. Blood pressure elevated while in ED. No distress during my encounter. On exam patient is elderly, drowsy, follows simple commands, normocephalic atraumatic, lungs are clear to auscultation, normal breath sounds, S1-S2,+ murmur, abdomen soft, nontender, normal bowel sounds, grossly moves all extremities. Patient is admitted for management of rhabdomyol ysis, left posterior fourth rib fracture, trace hemothorax and generalized weakness. Received gentle IV fluids. Will add hydralazine as needed for blood pressure control. Pain seems to be controlled. Agree with incentive spirometry. Also noted T12 compression fracture. Monitor CBC. Consider repeat imaging if needed if hemoglobin drops. Fall precautions. Reorient frequently given dementia. I personally reviewed the record. Patient is interviewed and examined at bedside. Patient's care is coordinated with Italia Hewitt PA-C. Please refer to the documentation above for details of patient's presentation and for discussion of other issues. Subjective This is a 85-year-old male who has significant past medical history of Parkinson's disease, Lewy body dementia, CAD with history of CABG, pacemaker placement, severe aortic stenosis status post AVR, history of aortic aneurysm status post repair, PAF, hypertension, acquired hemolytic anemia who presents to ED after sustaining a fall 3 days prior to arrival as well as a fall on day of admission. He further had increased weakness and inability to care for self and therefore was brought in for evaluation. Patient was found to have rhabdomyolysis, left fourth rib fracture, small pneumothorax and minimal acute superior endplate compression deformity at T12.In ED he received IV fluid and IV Tylenol. ROS unobtainable given patient's mental status. Review of Systems Review of Systems: Unobtainable due to cognitive status Physical Exam Physical Exam: Gen: WD/WN, elderly, male, demented, drowsy but arouses to tactile stimuli, NAD, A&O x3 HEENT: Normocephalic, atraumatic, conjunctivae moist, sclerae anicteric, mucous membranes dry. Lung: Clear to Auscultation bilaterally, no wheezes/rales/rhonchi Heart: Regular rate, regular rhythm, 2/6 REYNA noted RUSB, rubs, or gallops Abdomen: Soft, NT, ND +BS x 4 Extremities: No edema Skin: Warm, no rash, negative turgor. Results & Data Results & Data ([facility]) Vital Signs (Past 12 Hours) Vital Signs Temp Pulse Pulse Resp BP BP Pulse Ox 08/28/21 01:14 36.6 C 60 16 154/96 H 93 08/28/21 00:49 69 20 154/96 H 95 08/27/21 23:45 36.8 C 70 16 164/70 H 98 Pulse Ox 08/28/21 01:14 93 08/28/21 00:49 08/27/21 23:45 Laboratory Results Short CBC 08/28/21 Range/Units 05:52 WBC 9.19 (4.8-10.8) K/uL Hgb 13.7 L (14.0-18.0) g/dL Hct 40.8 L (42-52) % Plt Count 173 (130-400) K/uL BMP 08/28/21 05:52 Sodium 140 Potassium 3.6 Chloride 106 Carbon Dioxide 27 BUN 19 H Creatinine 0.85 Glucose 112 H Calcium 8.5 Cardiac Enzymes 08/28/21 Range/Units 05:52 Total Creatine Kinase 700 H (39-308) U/L Urine 08/27/21 Range/Units 21:48 Urine Color Dark Yellow Urine Appearance Clear (Clear) Urine pH 6.5 (4.5-7.5) Ur Specific Carson 1.033 H (1.000-1.030) Urine Protein Trace H (Negative) Urine Glucose (UA) Negative (Negative) Diagnostic Findings Abdomen/Pelvis CT 08/27/21 15:36 CT SCAN OF THE CHEST, ABDOMEN, AND PELVIS WITH IV CONTRAST CLINICAL HISTORY: Trauma. Fall down stairs. COMPARISON STUDY: Chest CT dated 11/02/2015. TECHNIQUE: Following the IV administration of 90 of Optiray 320, CT scan of the chest, abdomen, and pelvis was performed from the thoracic inlet to the proximal femora. Images are reviewed in the axial, sagittal, and coronal planes. IV contrast was administered without complication. A dose lowering technique was utilized adhering to the principles of ALARA. There is motion artifact, as well as streak artifact from the arms which could not be elevated above the chest or abdomen. CT DOSE: 2740.59 mGy.cm FINDINGS: CHEST: Thyroid: Imaged portions of the thyroid gland are normal in size and attenuation. Thoracic aorta: Postoperative change is noted involving the ascending thoracic aorta. There is atherosclerotic calcification of the thoracic aorta, which is normal in caliber and demonstrates standard 3-vessel arch anatomy. No dissection is seen. Pulmonary vasculature: The pulmonary trunk is normal in caliber. There are no filling defects identified in the central pulmonary vessels to indicate pulmo nary embolus. Note that this examination was not protocoled for evaluation of the pulmonary arteries. Heart: A 2-lead cardiac pacemaker is present in the left chest wall. The patient is status post midline sternotomy. The heart is enlarged and without pericardial effusion. Coronary arteries are densely calcified. Lungs and pleural spaces: Trace hemothorax is seen at the left lung base. No pneumothorax is identified. The trachea and central airways are clear. Scarring/atelectasis is noted at both lung bases. There are scattered calcified granulomas. Mediastinum: There is no hematoma. Scattered subcentimeter mediastinal lymph nodes are not pathologically enlarged by size criteria. Vesta: Clear. Axillae: There is no axillary lymphadenopathy. Bony thorax: The skeletal structures are osteopenic. There is an acute left posterior 4th rib fracture. There is a minimal acute superior endplate compression fracture of T12. The remainder of the bony thorax appears intact. Degenerative change and mild hyperkyphosis are noted in the thoracic spine. Arthritic changes seen in the shoulders. No lytic or blastic lesions are identified. ABDOMEN AND PELVIS: Liver: The contrast-enhanced liver is normal in size, contour, and attenuation. There is no intra- or extrahepatic biliary ductal dilatation. The hepatic veins and portal veins are patent. Gallbladder: Unremarkable. Spleen: Normal in size and attenuation. Pancreas: Moderately atrophic and grossly unremarkable. Adrenal glands: Unremarkable. Kidneys: The contrast enhanced kidneys are atrophic and without hydronephrosis. The kidneys enhance symmetrically. There are least 2 right renal cysts which measure up to 2.6 cm. Abdominal vasculature: There is advanced atherosclerotic calcification and mild ectasia of the abdominal aorta. Bowel: Moderate fecal retention is seen throughout the colon. There is no bowel obstruction. The appendix is not visualized. Peritoneum: There is no intraperitoneal free air or abdominal ascites. Lymphadenopathy: None. Pelvic viscera: The prostate gland is markedly enlarged and heterogeneous noting median lobe hypertrophy. The bladder is decompressed. The bladder wall appears thickened and trabeculated indicating chronic outlet obstruction. Skeletal structures: The skeletal structures are osteopenic. The lumbosacral spine, bony pelvis, and proximal femora appear intact. There is [id number] lumbosacral spondylosis. No lytic or blastic lesions are seen. IMPRESSION: 1. Significantly streak and motion compromised examination. 2. There is a mild acute superior endplate compression fracture of T12. 3. There is an acute left posterior 4th rib fracture. 4. Trace hemothorax is seen at the left lung base. 5. No pneumothorax. 6. Cardiomegaly. 7. There is no evidence of solid organ injury in the abdomen or pelvis. 8. Additional findings as above. ACT 112: Negative or not required by law. Electronically signed by: Rancho Roberts M.D. 08/27/2021 6:[address] 08/27/21 15:36 CT SCAN OF THE CERVICAL SPINE CLINICAL HISTORY: Trauma. Fall down stairs. COMPARISON STUDY: CT of the cervical spine dated 08/29/2018. TECHNIQUE: CT scan of the cervical spine is performed from the skull base to the upper thoracic spine. Images are reviewed in the axial, sagittal, and coronal planes. IV contrast was not administered for this examination. A dose lowering technique was utilized adhering to the principles of ALARA. FINDINGS: Skeletal structures: The skeletal structures are osteopenic. There is no evidence of fracture or subluxation involving the cervical spine. Vertebral body height and alignment are maintained. There is straightening of the cervical lordosis. Anterior osteophytes are seen throughout. The odontoid process and lateral masses are intact. The atlantoaxial articulation is preserved noting advanced productive degenerative change. The spinous processes appear intact. There is moderate multilevel cervical spondylosis. Uncovertebral and facet arthropathy contribute to neural foraminal narrowing at several levels. Intervertebral discs: There is advanced disc space narrowing at C6-C7. Mild to moderate disc space narrowing is noted at the remaining cervical levels. Central canal: Posterior disc osteophyte complexes at C5-C6 and C6-C7 likely contribute to acquired compromise of the central canal. Soft tissues: The prevertebral and paraspinous soft tissues are within normal limits. There is atherosclerotic calcification of the carotid bulbs. Pacemaker leads are noted at the left thoracic inlet. A calcified sialolith is noted in the left parotid gland. Calvarium: The visualized calvarium at the skull base appears intact. Brain parenchyma: Partially visualized brain parenchyma at the skull base is within normal limits. Sinuses and mastoids: The visualized paranasal sinuses are clear. The mastoid air cells are well pneumatized. Lung apices: Clear as visualized. IMPRESSION: 1. There is no evidence of fracture or subluxation involving the cervical spine. 2. Osteopenia and spondylotic change as above. ACT 112: Negative or not required by law. Electronically signed by: Rancho Roberts M.D. 08/27/2021 6:[address] 08/27/21 15:36 CT SCAN OF THE CHEST, ABDOMEN, AND PELVIS WITH IV CONTRAST CLINICAL HISTORY: Trauma. Fall down stairs. COMPARISON STUDY: Chest CT dated 11/02/2015. TECHNIQUE: Following the IV administration of 90 of Optiray 320, CT scan of the chest, abdomen, and pelvis was performed from the thoracic inlet to the proximal femora. Images are reviewed in the axial, sagittal, and coronal planes. IV contrast was administered without complication. A dose lowering technique was utilized adhering to the principles of ALARA. There is motion artifact, as well as streak artifact from the arms which could not be elevated above the chest or abdomen. CT DOSE: 2740.59 mGy.cm FINDINGS: CHEST: Thyroid: Imaged portions of the thyroid gland are normal in size and attenuation. Thoracic aorta: Postoperative change is noted involving the ascending thoracic aorta. There is atherosclerotic calcification of the thoracic aorta, which is normal in caliber and demonstrates standard 3-vessel arch anatomy. No dissection is seen. Pulmonary vasculature: The pulmonary trunk is normal in caliber. There are no filling defects identified in the central pulmonary vessels to indicate pulmonary embolus. Note that this examination was not protocoled for evaluation of the pulmonary arteries. Heart: A 2-lead cardiac pacemaker is present in the left chest wall. The patient is status post midline sternotomy. The heart is enlarged and without pericardial effusion. Coronary arteries are densely calcified. Lungs and pleural spaces: Trace hemothorax is seen at the left lung base. No pneumothorax is identified. The trachea and central airways are clear. Scarring/atelectasis is noted at both lung bases. There are scattered calcified granulomas. Mediastinum: There is no hematoma. Scattered subcentimeter mediastinal lymph nodes are not pathologically enlarged by size criteria. Vesta: Clear. Axillae: There is no axillary lymphadenopathy. Bony thorax: The skeletal structures are osteopenic. There is an acute left posterior 4th rib fracture. There is a minimal acute superior endplate compression fracture of T12. The remainder of the bony thorax appears intact. Degenerative change and mild hyperkyphosis are noted in the thoracic spine. Arthritic changes seen in the shoulders. No lytic or blastic lesions are identified. ABDOMEN AND PELVIS: Liver: The contrast-enhanced liver is normal in size, contour, and attenuation. There is no intra- or extrahepatic biliary ductal dilatation. The hepatic veins and portal veins are patent. Gallbladder: Unremarkable. Spleen: Normal in size and attenuation. Pancreas: Moderately atrophic and grossly unremarkable. Adrenal glands: Unremarkable. Kidneys: The contrast enhanced kidneys are atrophic and without hydronephrosis. The kidneys enhance symmetrically. There are least 2 right renal cysts which measure up to 2.6 cm. Abdominal vasculature: There is advanced atherosclerotic calcification and mild ectasia of the abdominal aorta. Bowel: Moderate fecal retention is seen throughout the colon. There is no bowel obstruction. The appendix is not visualized. Peritoneum: There is no intraperitoneal free air or abdominal ascites. Lymphadenopathy: None. Pelvic viscera: The prostate gland is markedly enlarged and heterogeneous noting median lobe hypertrophy. The bladder is decompressed. The bladder wall appears thickened and trabeculated indicating chronic outlet obstruction. Skeletal structures: The skeletal structures are osteopenic. The lumbosacral spine, bony pelvis, and proximal femora appear intact. There is [id number] lumbosacral spondylosis. No lytic or blastic lesions are seen. IMPRESSION: 1. Significantly streak and motion compromised examination. 2. There is a mild acute superior endplate compression fracture of T12. 3. There is an acute left posterior 4th rib fracture. 4. Trace hemothorax is seen at the left lung base. 5. No pneumothorax. 6. Cardiomegaly. 7. There is no evidence of solid organ injury in the abdomen or pelvis. 8. Additional findings as above. ACT 112: Negative or not required by law. Electronically signed by: Rancho Roberts M.D. 08/27/2021 6:43 PM Chest X-Ray 08/27/21 15:36 SINGLE VIEW CHEST CLINICAL HISTORY: Fall. FINDINGS: An AP, portable, upright chest radiograph is compared to study dated 05/26/2021. A 2-lead cardiac pacemaker is unchanged in position. The patient is status post midline sternotomy. The heart is enlarged noting atherosclerotic calcification of the thoracic aorta. The pulmonary vasculature is noncongested. Chronic interstitial thickening is similar to previous. Scarring/atelectasis is noted at the lung bases. No airspace consolidation or large pleural effusion is identified. No pneumothorax is seen. The skeletal structures are osteopenic. The bony thorax is grossly intact. IMPRESSION: 1. Cardiomegaly and cardiac pacemaker. There is no radiographic evidence of congestive failure. 2. No airspace consolidation or large pleural effusion is identified. ACT 112: Negative or not required by law. Electronically signed by: Rancho Roberts M.D. 08/27/2021 4:[address] 08/27/21 15:36 CT SCAN OF THE BRAIN WITHOUT IV CONTRAST CLINICAL HISTORY: Trauma. Fall down stairs. COMPARISON STUDY: CT of the brain dated 05/26/2021. TECHNIQUE: Unenhanced axial CT scan of the brain is performed from the vertex to the skull base. A dose lowering technique was utilized adhering to the principles of ALARA. FINDINGS: Brain parenchyma: There are age-related involutional changes noting moderate to advanced confluent subcortical and periventricular microangiopathic change. There is no hemorrhage, mass effect, or evidence of acute territorial ischemia by CT criteria. 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 Smith-white matter differentiation is preserved. No extra-axial fluid collection is seen. Ventricles, sulci, cisterns: Prominent secondary to involutional change. Intracranial vasculature: There is atherosclerotic calcification of the cavernous carotid and vertebral arteries. Calvarium: The skeletal structures are osteopenic. There is no depressed calvar ial fracture. Sinuses and mastoids: The visualized paranasal sinuses are clear. The mastoid air cells are well pneumatized. Orbits: The bony orbits are grossly intact. There are bilateral ocular lens implants. IMPRESSION: There is no hemorrhage, mass effect, or evidence of acute territorial ischemia by CT criteria. ACT 112: Negative or not required by law. Electronically signed by: Rancho Roberts M.D. 08/27/2021 6:17 PM Shoulder X-Ray 08/27/21 15:53 LEFT SHOULDER 3 VIEWS CLINICAL HISTORY: Fall. Left shoulder pain. FINDINGS: 3 views of the left shoulder are obtained. No prior studies are available for comparison at the time of dictation. The skeletal structures are osteopenic. There is no radiographic evidence of left shoulder fracture or dislocation. Productive degenerative change is noted at the acromioclavicular joint. Mild arthritic change is also seen at the glenohumeral articulation. The overlying soft tissues are within normal limits. A cardiac pacemaker is in place. The patient is status post midline sternotomy and the heart is enlarged. Left lung parenchyma is clear as visualized. IMPRESSION: No acute bony abnormality is identified. Electronically signed by: Rancho Roberts M.D. 08/27/2021 4:38 PM Medications Administered Current Inpatient Medications Acetaminophen (Acetaminophen 325 Mg Tab) 650 mg PO Q6H PRN PRN Reason: Fever/pain Stop: 09/26/21 19:48 Carbidopa/Levodopa (Carbidopa/Levodopa 25/100mg Tab) 1 tab PO BID FERNIE Stop: 09/26/21 22:59 Last Admin: 08/28/21 09:51 Dose: 1 tab Documented by: Donepezil HCl (Donepezil Hcl 5 Mg Tab) 5 mg PO DAILY FERNIE Stop: 09/27/21 08:59 Last Admin: 08/28/21 09:52 Dose: 5 mg Documented by: Lorazepam (Ativan) 0.25 mg in 0.5 mls @ 0.5 mls/min IV Q4H PRN PRN Reason: Anxiety/Agitation Stop: 09/26/21 22:11 Lactated Ringer's (Lr) 1,000 mls @ 75 mls/hr IV .[id number] FERNIE Stop: 08/28/21 23:14 Last Admin: 08/28/21 00:48 Dose: 75 mls/hr Documented by: Promethazine HCl 12.5 mg/ (Sodium Chloride) 50.5 mls @ 202 mls/hr IV Q6H PRN PRN Reason: Nausea And Vomiting Stop: 09/27/21 01:13 Lidocaine (Lidocaine 5% 1 Patch) 1 patch TD HS FERNIE Stop: 09/27/21 20:59 Metoprolol Tartrate (Metoprolol Tartrate 25 Mg Tab) 25 mg PO DAILY FERNIE Stop: 09/27/21 08:59 Last Admin: 08/28/21 09:52 Dose: 25 mg Documented by: Miscellaneous (Remove Lidoderm Patch) 1 ea N/A QAM FERNIE Stop: 09/27/21 08:59 Last Admin: 08/28/21 09:52 Dose: 1 ea Documented by: Morphine Sulfate (Morphine Sulfate 2 Mg/Ml Carp) 2 mg IV Q4H PRN PRN Reason: Pain Stop: 09/11/21 01:13 Tramadol HCl (Tramadol Hcl 50 Mg Tablet) 25 mg PO Q4H PRN PRN Reason: Pain Stop: 09/27/21 01:13 COVID-19 Results Results COVID-19 Adm Lab Results: RBC 4.37 M/uL (4.7-6.1) L 08/28/21 WBC 9.19 K/uL (4.8-10.8) 08/28/21 Hgb 13.7 g/dL (14.0-18.0) L 08/28/21 Hct 40.8 % (42-52) L 08/28/21 Plt Count 173 K/uL (130-400) 08/28/21 Neutrophils (%) (Auto) 69.2 % 08/28/21 Lymphocytes (%) (Auto) 14.5 % 08/28/21 Monocytes # (Auto) 1.31 K/uL (0.11-0.59) H 08/28/21 Eosinophils # (Auto) 0.15 K/uL (0-0.5) 08/28/21 Immature Granulocyte % (Auto) 0.2 % 08/28/21 Neutrophils # (Auto) 6.36 K/uL (1.4-6.5) 08/28/21 Lymphocytes # (Auto) 1.33 K/uL (1.2-3.4) 08/28/21 Monocytes # (Auto) 1.31 K/uL (0.11-0.59) H 08/28/21 Eosinophils # (Auto) 0.15 K/uL (0-0.5) 08/28/21 Basophils # (Auto) 0.02 K/uL (0-0.2) 08/28/21 Immature Granulocyte # (Auto) 0.02 K/uL (0.00-0.02) 08/28/21 Na 140 mmol/L (136-145) 08/28/21 K 3.6 mmol/L (3.5-5.1) 08/28/21 Cl 106 mmol/L (98-107) 08/28/21 CO2 27 mmol/L (21-32) 08/28/21 Anion Gap 7.0 (3-11) 08/28/21 BUN 19 mg/dl (7-18) H 08/28/21 Creatinine 0.85 mg/dl (0.6-1.4) 08/28/21 BUN/Creatinine Ratio 22.0 (10-20) H 08/28/21 Glucose Level 112 mg/dl (70-99) H 08/28/21 Ca 8.5 mg/dl (8.5-10.1) 08/28/21 Total Bilirubin 1.3 mg/dl (0.2-1) H 08/27/21 AST/SGOT 61 U/L (15-37) H 08/27/21 ALT/SGPT 20 U/L (12-78) 08/27/21 Alkaline Phosphatase 86 U/L (45-117) 08/27/21 Total Protein 7.4 gm/dl (6.4-8.2) 08/27/21 Albumin 3.0 gm/dl (3.4-5.0) L 08/27/21 Globulin 4.4 gm/dl (2.5-4.0) H 08/27/21 Albumin/Globulin Ratio 0.7 (0.9-2) L 08/27/21 Total CK 700 U/L (39-308) H 08/28/21 Troponin I 0.031 ng/ml (0-0.045) 08/27/21 Procalcitonin < 0.05 ng/ml (0-0.5) 08/27/21 INR 1.1 (0.9-1.1) 08/27/21 COVID-19 PCR NEGATIVE (Negative) 08/27/[address] 08/27/21 Chest X-Ray 08/27/21 (1) Left rib fracture Encounter type: initial encounter Fracture type: closed Rib fracture type: single rib Qualified Code(s): S22.32XA - Fracture of one rib, left side, initial encounter for closed fracture (2) T12 compression fracture Encounter type: initial encounter Qualified Code(s): S22.080A - Wedge compression fracture of T11-T12 vertebra, initial encounter for closed fracture (3) Rhabdomyolysis Encounter type: initial encounter Rhabdomyolysis type: traumatic Qualified Code(s): T79.6XXA - Traumatic ischemia of muscle, initial encounter (4) Fall Encounter type: initial encounter Qualified Code(s): W19.XXXA - Unspecified fall, initial encounter
[2021-08-28] MEDS: ACETAMINOPHEN 500 MG TAB PO SCH ×3 (13:18→20:17)
--- NOTE | 2021-08-28 14:09 | Electrocardiogram Report ---
Test Reason : Blood Pressure : / mmHG Vent. Rate : 065 BPM Atrial Rate : 057 BPM P-R Int : 000 ms QRS Dur : 198 ms QT Int : 516 ms P-R-T Axes : 045 -56 109 degrees QTc Int : 536 ms Ventricular-paced rhythm Abnormal ECG When compared with ECG of 27-MAY-2021 06:39, Vent. rate has increased BY 5 BPM Confirmed by Theron Barron ([id number]) on 08/28/2021 2:09:16 PM Referred By: REFERRED SELF Confirmed By:Theron Barron
[2021-08-28] MEDS: hydrALAZINE 10 MG TAB PO PRN (18:09)
[2021-08-28] MEDS: LIDOCAINE 5% 1 PATCH TD SCH (21:32)
[2021-08-29] MEDS: hydrALAZINE 10 MG TAB PO PRN (05:58)
[2021-08-29 07:07] LABS: Hematocrit (blood only) 40.6 % (42-52); Hemoglobin 13.9 g/dL (14.0-18.0); Mean Corpuscular Hemoglobin 31.4 pg (25-34); Mean Corpuscular Hgb Conc 34.2 g/dL (32-36); Mean Corpuscular Volume 91.6 fL (80-100); Mean Platelet Volume 12.1 fL (7.4-10.4); Platelet Count 196 K/uL (130-400); RDW Standard Deviation 47.2 fL (36.4-46.3); Red Blood Count 4.43 M/uL (4.7-6.1); White Blood Count 8.16 K/uL (4.8-10.8)
[2021-08-29 07:23] LABS: BUN Creatinine Ratio 25.8 (10-20); Calcium 8.7 mg/dl (8.5-10.1); Creatinine Clr Calc Pharmacy 85.1 ml/min; Est GFR (African American) 93.5 ml/min; Est GFR (Non-African American) 80.6 ml/min; Potassium 3.7 mmol/L (3.5-5.1)
[2021-08-29] MEDS: ACETAMINOPHEN 500 MG TAB PO SCH ×4 (08:58→20:39)
[2021-08-29] MEDS: METOPROLOL TARTRATE 25 MG TAB PO SCH (08:58)
[2021-08-29] MEDS: CARBIDOPA/LEVODOPA 25/100MG TAB PO SCH ×2 (08:59→20:39)
[2021-08-29] MEDS: DONEPEZIL HCL 5 MG TAB PO SCH (08:59)
[2021-08-29] MEDS: LOSARTAN POTASSIUM 50 MG TAB PO SCH (10:55)
--- NOTE | 2021-08-29 14:32 | Hospitalist Progress Note ---
Date of Service August 29, 2021 Assessment & Plan (1) Fall: (2) Weakness: (3) Rhabdomyolysis: (4) Left rib fracture: (5) T12 compression fracture: (6) Parkinson's disease: (7) Lewy body dementia: (8) CAD (coronary artery disease): (9) Pacemaker: (10) DVT prophylaxis: Plan: This is a 85-year-old male who has significant past medical history of Parkinson's disease, Lewy body dementia, CAD with history of CABG, pacemaker placement, severe aortic stenosis status post AVR, history of aortic aneurysm status post repair, PAF, hypertension, acquired hemolytic anemia who presents to ED after sustaining a fall 3 days prior to arrival as well as a fall on day of admission. He further had increased weakness and inability to care for self and therefore was brought in for evaluation. Patient was found to have rhabdomyolysis, left fourth rib fracture, small hemothorax and minimal acute superior endplate compression deformity at T12. In ED he received IV fluid and IV Tylenol. Fall Weakness Rhabdomyolysis admit to PCU continue gentle IVF CK trending down 1147 --> 700 --> 302, mild elevation in AST and t bili PT/OT case management Left Posterior 4th rib fracture Trace hemothorax conservative tx, lidocaine patch ordered schedule APAP tramadol prn encourage incentive spirometry, saturating well on room air Mild acute superior endplate compression fracture of T 12 conservative tx, pain control PT/OT consulted Parkinson disease Lewey body dementia continue sinemet, aricept mood stable, no agitation CAD Hx of CABG PAF - [id number] 3 - not anticoagulated 2/2 to age, falls Severe s/p AVR Pacemaker continue asa, statin, metoprolol follows Dr. Mejia, pt is due for upcoming device gen change Hematuria noted in villasenor bag, per nursing staff pt tugging at cath which resulted in blood in urine continue to monitor DVT ppx: SCD/TEDS for now in setting of trace hemothorax, fall risk and age Dispo: Admit to med tele, continue PT/OT, discharge to rehab or SNF when medically stable PCP: Dr. Claribel Gaines DNR/DNI Pt was seen and examined in collaboration with Dr. Fontanez, please see addendum Admission and Anticipated Discharge Date Admission Date: August 27, 2021 Supervising Physician Co-Signing Physician Notes Patient is seen and examined at bedside. Story unreliable secondary to d maria guadalupeentia. Oriented to person only. More alert, awake, able to converse better today. States having left leg pain and back pain. On exam patient is elderly, drowsy, follows simple commands, normocephalic atraumatic, lungs are clear to auscultation, normal breath sounds, S1-S2,+ murmur, abdomen soft, nontender, normal bowel sounds, grossly moves all extremities. Rhabdomyolysis resolved. Will discontinue IV fluids. CK levels normalized. Continue incentive spirometry for left fourth rib fracture. Patient is due for pacemaker generator change. Appreciate cardiology help. Plan for procedure tomorrow. BP elevated. Started on Losartan. I personally reviewed the record. Patient is interviewed and examined at bedside. Patient's care is coordinated with Italia Brown. Please refer to the documentation above for details of patient's presentation and for discussion of other issues. Subjective This is a 85-year-old male who has significant past medical history of Parkinson's disease, Lewy body dementia, CAD with history of CABG, pacemaker placement, severe aortic stenosis status post AVR, history of aortic aneurysm status post repair, PAF, hypertension, acquired hemolytic anemia who presents to ED after sustaining a fall 3 days prior to arrival as well as a fall on day of admission. He further had increased weakness and inability to care for self and therefore was brought in for evaluation. Patient was found to have rhabdomyolysis, left fourth rib fracture, small hemothorax and minimal acute superior endplate compression deformity at T12. ROS unreliable given cognitive status. Review of Systems Review of Systems: Unobtainable due to cognitive status Physical Exam Physical Exam: Gen: WD/WN, elderly, male, demented, lying in bed, answers questions but not appropriate, NAD, A&O x1 HEENT: Normocephalic, atraumatic, conjunctivae moist, sclerae anicteric, mucous membranes dry. Lung: Clear to Auscultation bilaterally, no wheezes/rales/rhonchi Heart: Regular rate, regular rhythm, 2/6 REYNA noted RUSB, rubs, or gallops Abdomen: Soft, NT, ND +BS x 4 Extremities: No edema Skin: Warm, no rash, negative turgor. Results & Data Results & Data ([facility]) Vital Signs (Past 12 Hours) Vital Signs Temp Pulse Pulse Pulse Resp BP BP 08/29/21 12:00 37.2 C 65 18 121/79 08/29/21 08:06 37.4 C 65 62 19 189/69 H 08/29/21 05:40 175/102 H 08/29/21 02:52 36.9 C 65 17 184/70 H Pulse Ox 08/29/21 12:00 91 08/29/21 08:06 91 08/29/21 05:40 08/29/21 02:52 92 Laboratory Results Short CBC 08/29/21 Range/Units 06:13 WBC 8.16 (4.8-10.8) K/uL Hgb 13.9 L (14.0-18.0) g/dL Hct 40.6 L (42-52) % Plt Count 196 (130-400) K/uL BMP 08/29/21 06:13 Sodium 141 Potassium 3.7 Chloride 107 Carbon Dioxide 26 BUN 21 H Creatinine 0.82 Glucose 102 H Calcium 8.7 Cardiac Enzymes 08/29/21 Range/Units 06:13 Total Creatine Kinase 302 (39-308) U/L Medications Administered Current Inpatient Medications Acetaminophen (Acetaminophen 325 Mg Tab) 650 mg PO Q6H PRN PRN Reason: Fever/pain Stop: 09/26/21 19:48 Acetaminophen (Acetaminophen 500 Mg Tab) 500 mg PO QID [facility] Stop: 09/27/21 12:59 Last Admin: 08/29/21 13:29 Dose: 500 mg Documented by: Carbidopa/Levodopa (Carbidopa/Levodopa 25/100mg Tab) 1 tab PO BID [facility] Stop: 09/26/21 22:59 Last Admin: 08/29/21 08:59 Dose: 1 tab Documented by: Donepezil HCl (Donepezil Hcl 5 Mg Tab) 5 mg PO DAILY [facility] Stop: 09/27/21 08:59 Last Admin: 08/29/21 08:59 Dose: 5 mg Documented by: Hydralazine HCl (Hydralazine 10 Mg Tab) 10 mg PO Q6H PRN PRN Reason: Hypertension Stop: 09/27/21 17:29 Last Admin: 08/29/21 05:58 Dose: 10 mg Documented by: Lorazepam (Ativan) 0.25 mg in 0.5 mls @ 0.5 mls/min IV Q4H PRN PRN Reason: Anxiety/Agitation Stop: 09/26/21 22:11 Promethazine HCl 12.5 mg/ (Sodium Chloride) 50.5 mls @ 202 mls/hr IV Q6H PRN PRN Reason: Nausea And Vomiting Stop: 09/27/21 01:13 Lidocaine (Lidocaine 5% 1 Patch) 1 patch TD HS [facility] Stop: 09/27/21 20:59 Last Admin: 08/28/21 21:32 Dose: 1 patch Documented by: Losartan Potassium (Losartan Potassium 50 Mg Tab) 50 mg PO QAM [facility] Stop: 09/28/21 09:14 Last Admin: 08/29/21 10:55 Dose: 50 mg Documented by: Metoprolol Tartrate (Metoprolol Tartrate 25 Mg Tab) 25 mg PO DAILY [facility] Stop: 09/27/21 08:59 Last Admin: 08/29/21 08:58 Dose: 25 mg Documented by: Miscellaneous (Remove Lidoderm Patch) 1 ea N/A QAM [facility] Stop: 09/27/21 08:59 Last Admin: 08/29/21 08:59 Dose: 1 ea Documented by: Morphine Sulfate (Morphine Sulfate 2 Mg/Ml Carp) 2 mg IV Q4H PRN PRN Reason: Pain Stop: 09/11/21 01:13 Tramadol HCl (Tramadol Hcl 50 Mg Tablet) 25 mg PO Q4H PRN PRN Reason: Pain Stop: 09/27/21 01:13 (1) Left rib fracture Encounter type: initial encounter Fracture type: closed Rib fracture type: single rib Qualified Code(s): S22.32XA - Fracture of one rib, left side, initial encounter for closed fracture (2) T12 compression fracture Encounter type: initial encounter Qualified Code(s): S22.080A - Wedge compression fracture of T11-T12 vertebra, initial encounter for closed fracture (3) Rhabdomyolysis Encounter type: initial encounter Rhabdomyolysis type: traumatic Qualified Code(s): T79.6XXA - Traumatic ischemia of muscle, initial encounter (4) Fall Encounter type: initial encounter Qualified Code(s): W19.XXXA - Unspecified fall, initial encounter
[2021-08-29] MEDS: LIDOCAINE 5% 1 PATCH TD SCH (20:42)
[2021-08-30 07:02] LABS: Hematocrit (blood only) 40.1 % (42-52); Hemoglobin 13.3 g/dL (14.0-18.0); Mean Corpuscular Hemoglobin 30.9 pg (25-34); Mean Corpuscular Hgb Conc 33.2 g/dL (32-36); Mean Platelet Volume 11.5 fL (7.4-10.4); Platelet Count 192 K/uL (130-400); RDW Coefficient of Variation 13.8 % (11.5-14.5); RDW Standard Deviation 47.2 fL (36.4-46.3); Red Blood Count 4.31 M/uL (4.7-6.1); White Blood Count 10.09 K/uL (4.8-10.8)
[2021-08-30 07:36] LABS: BUN Creatinine Ratio 25.3 (10-20); Calcium 8.2 mg/dl (8.5-10.1); Creatinine Clr Calc Pharmacy 77.6 ml/min; Est GFR (African American) 89.9 ml/min; Est GFR (Non-African American) 77.6 ml/min; Potassium 3.3 mmol/L (3.5-5.1)
[2021-08-30] MEDS: CARBIDOPA/LEVODOPA 25/100MG TAB PO SCH ×2 (07:49→21:40)
[2021-08-30] MEDS: METOPROLOL TARTRATE 25 MG TAB PO SCH (07:49)
[2021-08-30] MEDS: LOSARTAN POTASSIUM 50 MG TAB PO SCH ×3 (07:50→21:40)
[2021-08-30] MEDS: DONEPEZIL HCL 5 MG TAB PO SCH (07:50)
[2021-08-30] MEDS: ACETAMINOPHEN 500 MG TAB PO SCH ×3 (07:52→17:39)
[2021-08-30] MEDS ORDERED: POTASSIUM CHLORIDE CRTAB 20 MEQ TABCR PO STA (10:32)
--- NOTE | 2021-08-30 10:51 | Hospitalist Progress Note ---
Date of Service August 30, 2021 Assessment & Plan (1) Fall: (2) Weakness: (3) Rhabdomyolysis: (4) Left rib fracture: (5) T12 compression fracture: (6) Parkinson's disease: (7) Lewy body dementia: (8) CAD (coronary artery disease): (9) Pacemaker: (10) DVT prophylaxis: Plan: This is a 85-year-old male who has significant past medical history of Parkinson's disease, Lewy body dementia, CAD with history of CABG, pacemaker placement, severe aortic stenosis status post AVR, history of aortic aneurysm status post repair, PAF, hypertension, acquired hemolytic anemia who presents to ED after sustaining a fall 3 days prior to arrival as well as a fall on day of admission. He further had increased weakness and inability to care for self and therefore was brought in for evaluation. Patient was found to have rhabdomyolysis, left fourth rib fracture, small hemothorax and minimal acute superior endplate compression deformity at T12. In ED he received IV fluid and IV Tylenol. Fall Weakness Rhabdomyolysis admit to PCU CK trending down 1147 --> 700 --> 302, now 112 today, mild elevation in AST and t bili PT/OT case management Elevated temperature T max 37.9, elevated temp x 2 on schedule tylenol CXR: trace pleural effusions, dependent airspace opacity on R likely atelectasis, UA and blood cultures ordered Left Posterior 4th rib fracture Trace hemothorax conservative tx, lidocaine patch ordered schedule APAP tramadol prn encourage incentive spirometry, saturating well on room air Mild acute superior endplate compression fracture of T 12 conservative tx, pain control PT/OT consulted Parkinson disease Lewey body dementia continue sinemet, aricept mood stable, no agitation CAD Hx of CABG PAF - [id number] 3 - not anticoagulated 2/2 to age, falls Severe s/p AVR Pacemaker continue asa, statin, metoprolol follows Dr. Mejia - plan is for generator change today while inpatient, consult placed Pt is NPO HTN pt started on losartan 50mg daily on 08/29, monitor - consider increasing to BID if remains elevated, currently 129/69 labile continue metoprolol follow renal fxn Hematuria noted in villasenor bag, per nursing staff pt tugging at cath which resulted in blood in urine continue to monitor, urine clear today DVT ppx: SCD/TEDS for now in setting of trace hemothorax, fall risk and age Dispo: Pt to transfer to PCU after pacemaker generator change, not medically stable for d/c, d/c to SNF when stable PCP: Dr. Claribel Gaines DNR/DNI Pt was seen and examined in collaboration with Dr. Junior, please see addendum Admission and Anticipated Discharge Date Admission Date: August 27, 2021 Supervising Physician Co-Signing Physician Notes I have seen and examined the patient and have discussed the case with the provider above. I agree with the assessment and plan as stated. Nontraumatic rhabdo? after prolonged period of immobility after a fall. Despite multiple fractures, pain doesn't seem to be uncontrolled. BP is labile, agree with additional losartan in the evening for now. Fever today despite scheduled Tylenol. Concern for ROBERT after villasenor placement, will recheck urine from villasenor catheter. No other clear cause for fever. Will stop scheduled Tylenol so as not to mask a trend. Doing well after PM generator change this afternoon. Denies pain, oriented to self. Thinks it is " two thousand and something." Answering questions appropriately. PM site covered with dry dressing. Lungs CTA bilaterally. Cardiac exam reveals S1/2 without m/g/r. Abdomen soft, NTND. No peripheral edema. Extremities are warm and well perfused. Agree with plan as above. H/O dementia, physican deconditioning and limited mobility 2/2 recent injuries after fall. Awaiting placement in SNF. [place], Subjective This is a 85-year-old male who has significant past medical history of Parkinson's disease, Lewy body dementia, CAD with history of CABG, pacemaker placement, severe aortic stenosis status post AVR, history of aortic aneurysm status post repair, PAF, hypertension, acquired hemolytic anemia who presents to ED after sustaining a fall 3 days prior to arrival as well as a fall on day of admission. He further had increased weakness and inability to care for self and therefore was brought in for evaluation. Patient was found to have rhabdomyolysis, left fourth rib fracture, small hemothorax and minimal acute superior endplate compression deformity at T12. ROS unreliable given cognitive status. Discussed with nursing staff. He did have elevated temperature this morning at 37.9. He received Tylenol and temperature returned to 36.8. He is to undergo generator change by Dr. Mejia today. Review of Systems Review of Systems: Unobtainable due to cognitive status Physical Exam Physical Exam: Gen: WD/WN, elderly, male, demented, lying in bed, sleeping but arouses to verbal stimuli,NAD, A&O to self only HEENT: Normocephalic, atraumatic, conjunctivae moist, sclerae anicteric, mucous membranes dry. Lung: Clear to Auscultation bilaterally, no wheezes/rales/rhonchi Heart: Regular rate, regular rhythm, 2/6 REYNA noted RUSB, rubs, or gallops, pacer site on LACW Abdomen: Soft, NT, ND +BS x 4 Extremities: No edema Skin: Warm, no rash, negative turgor. Per tele Paced 60s over night and this a.m. SR 1degree AVblock in 60s Results & Data Results & Data ([facility]) Vital Signs (Past 12 Hours) Vital Signs Temp Pulse Pulse Resp BP BP Pulse Ox 08/30/21 09:00 36.8 C 68 16 129/68 08/30/21 08:00 60 08/30/21 07:34 37.9 C H 65 16 188/98 H 91 08/30/21 04:11 175/84 H 08/30/21 03:00 37.1 C 53 L 20 190/84 H 92 08/29/21 23:00 36.8 C 60 19 170/80 H 91 Laboratory Results Short CBC 08/27/21 08/28/21 08/29/21 Range/Units 16:05 05:52 06:13 WBC (4.8-10.8) K/uL Hgb (14.0-18.0) g/dL Hct (42-52) % Plt Count (130-400) K/uL Potassium 3.9 3.6 3.7 (3.5-5.1) mmol/L BUN 24 H 19 H 21 H (7-18) mg/dl Creatinine 1.00 0.85 0.82 (0.6-1.4) mg/dl 08/30/21 08/30/21 Range/Units 06:13 06:13 WBC 10.09 (4.8-10.8) K/uL Hgb 13.3 L (14.0-18.0) g/dL Hct 40.1 L (42-52) % Plt Count 192 (130-400) K/uL Potassium 3.3 L (3.5-5.1) mmol/L BUN 23 H (7-18) mg/dl Creatinine 0.90 (0.6-1.4) mg/dl BMP 08/30/21 06:13 Sodium 141 Potassium 3.3 L Chloride 107 Carbon Dioxide 26 BUN 23 H Creatinine 0.90 Glucose 105 H Calcium 8.2 L Cardiac Enzymes 08/30/21 Range/Units 06:13 Total Creatine Kinase 112 (39-308) U/L Medications Administered Current Inpatient Medications Acetaminophen (Acetaminophen 325 Mg Tab) 650 mg PO Q6H PRN PRN Reason: Fever/pain Stop: 09/26/21 19:48 Acetaminophen (Acetaminophen 500 Mg Tab) 500 mg PO QID [facility] Stop: 09/27/21 12:59 Last Admin: 08/30/21 07:52 Dose: 500 mg Documented by: Carbidopa/Levodopa (Carbidopa/Levodopa 25/100mg Tab) 1 tab PO BID [facility] Stop: 09/26/21 22:59 Last Admin: 08/30/21 07:49 Dose: 1 tab Documented by: Donepezil HCl (Donepezil Hcl 5 Mg Tab) 5 mg PO DAILY [facility] Stop: 09/27/21 08:59 Last Admin: 08/30/21 07:50 Dose: 5 mg Documented by: Hydralazine HCl (Hydralazine 10 Mg Tab) 10 mg PO Q6H PRN PRN Reason: Hypertension Stop: 09/27/21 17:29 Last Admin: 08/29/21 05:58 Dose: 10 mg Documented by: Lorazepam (Ativan) 0.25 mg in 0.5 mls @ 0.5 mls/min IV Q4H PRN PRN Reason: Anxiety/Agitation Stop: 09/26/21 22:11 Promethazine HCl 12.5 mg/ (Sodium Chloride) 50.5 mls @ 202 mls/hr IV Q6H PRN PRN Reason: Nausea And Vomiting Stop: 09/27/21 01:13 Lactated Ringer's (Lr) 1,000 mls @ 60 mls/hr IV .[id number] [facility] Stop: 08/30/21 19:19 Lidocaine (Lidocaine 5% 1 Patch) 1 patch TD HS [facility] Stop: 09/27/21 20:59 Last Admin: 08/29/21 20:42 Dose: 1 patch Documented by: Losartan Potassium (Losartan Potassium 50 Mg Tab) 50 mg PO QAM [facility] Stop: 09/28/21 09:14 Last Admin: 08/30/21 07:50 Dose: 50 mg Documented by: Metoprolol Tartrate (Metoprolol Tartrate 25 Mg Tab) 25 mg PO DAILY [facility] Stop: 09/27/21 08:59 Last Admin: 08/30/21 07:49 Dose: 25 mg Documented by: Miscellaneous (Remove Lidoderm Patch) 1 ea N/A QAM [facility] Stop: 09/27/21 08:59 Last Admin: 08/30/21 07:50 Dose: 1 ea Documented by: Morphine Sulfate (Morphine Sulfate 2 Mg/Ml Carp) 2 mg IV Q4H PRN PRN Reason: Pain Stop: 09/11/21 01:13 Tramadol HCl (Tramadol Hcl 50 Mg Tablet) 25 mg PO Q4H PRN PRN Reason: Pain Stop: 09/27/21 01:13 (1) Left rib fracture Encounter type: initial encounter Fracture type: closed Rib fracture type: single rib Qualified Code(s): S22.32XA - Fracture of one rib, left side, initial encounter for closed fracture (2) T12 compression fracture Encounter type: initial encounter Qualified Code(s): S22.080A - Wedge compression fracture of T11-T12 vertebra, initial encounter for closed fracture (3) Rhabdomyolysis Encounter type: initial encounter Rhabdomyolysis type: traumatic Qualified Code(s): T79.6XXA - Traumatic ischemia of muscle, initial encounter (4) Fall Encounter type: initial encounter Qualified Code(s): W19.XXXA - Unspecified fall, initial encounter
[2021-08-30] MEDS ORDERED: LACTATED RINGER'S 1,000 ML IV SCH (11:00)
--- NOTE | 2021-08-30 13:42 | XRay Report ---
SINGLE VIEW CHEST CLINICAL HISTORY: Fever. FINDINGS: An AP, portable, upright chest radiograph is compared to chest x-ray and chest CT dated 08/2021. The patient is status post midline sternotomy. A 2-lead cardiac pacemaker is unchanged in po sition. The heart is enlarged noting atherosclerotic calcification of the thoracic aorta. The pulmona ry vasculature is noncongested. Airspace opacities at the right lung base likely represent atelectasi s. Trace pleural effusions are suspected. No pneumothorax is seen. The skeletal structures are osteop enic. Left fourth rib fracture is again noted. IMPRESSION: 1. Cardiomegaly and cardiac pacemaker with no radiographic evidence of congestive failure. 2. Airspace opacities at the right lung base likely represent atelectasis. Clinical correlation will be required. 3. Suspect trace pleural effusions. ACT 112: Negative or not required by law. Electronically signed by: Rancho Roberts M.D. 08/30/2021 1:40 PM
--- NOTE | 2021-08-30 14:08 | Pre Anesthesia Assessment ---
Date of Service August 30, 2021 Pre Sedation Assessment Vital Signs Temp Pulse Pulse Resp BP BP Pulse Ox 08/30/21 12:00 08/30/21 09:00 36.8 C 68 16 129/68 08/30/21 08:00 60 08/30/21 07:34 37.9 C H 65 16 188/98 H 91 08/30/21 04:11 175/84 H 08/30/21 03:00 37.1 C 53 L 20 190/84 H 92 08/29/21 23:00 36.8 C 60 19 170/80 H 91 08/29/21 22:18 60 08/29/21 21:51 37.4 C 08/29/21 20:38 166/80 H 08/29/21 19:51 37.7 C H 60 20 184/91 H 91 08/29/21 15:20 37.0 C 74 20 143/76 H 96 08/29/21 15:05 60 Pulse Ox 08/30/21 12:00 95 08/30/21 09:00 08/30/21 08:00 08/30/21 07:34 08/30/21 04:11 08/30/21 03:00 08/29/21 23:00 08/29/21 22:18 08/29/21 21:51 08/29/21 20:38 08/29/21 19:51 08/29/21 15:20 08/29/21 15:05 Cardiovascular RRR, no murmur, no edema Respiratory normal respiratory effort, lungs clear to auscultation Pre-Sedation Airway Assessment Smoking Status: Unknown if ever smoked Hx Sleep Apnea: No Hx Difficult Intubation: No Short, Thick Neck: No Thyromental Distance: < 3.5 Finger Breadths ASA: ASA3 NPO Status Date of Last Intake of Fluids: 08/29/21 Date of Last Intake of Solid Food: 08/29/21 Procedure Planning Contraindications for Sedation: none Current Medications Reviewed: Yes Notes The planned sedation has been discussed with the patient. Informed Consent was obtained. I have identified the patient, determined the appropriateness of sedation and have assessed the patient immediately prior to the procedure. All medicine(s) and interventions are by my order.
--- NOTE | 2021-08-30 14:10 | History & Physical Bridge Note ---
Date of Service August 30, 2021 History & Physical Bridge Note I have examined the patient, reviewed the History & Physical and in the interval since the performance of the History & Physical I have noted the following changes of clinical significance: Pt in the hospital awaiting placement and his device has been known to be at [facility] so he was recommended a generator change prior to the discharge. I discussed the procedure and potential risks with the pt's over the phone. consents signed.
[2021-08-30] MEDS ORDERED: MIDAZOLAM HCL 1 MG/ML 2ML VIAL ONE (14:14)
[2021-08-30] MEDS ORDERED: fentaNYL citrate 100 MCG/2 ML VIAL ONE (14:14)
[2021-08-30] MEDS ORDERED: BUPIVACAINE 0.25% 30 ML VIAL ONE (14:23)
[2021-08-30] MEDS ORDERED: WATER, STERILE FOR INJ 10 ML VIAL ONE (14:23)
[2021-08-30] MEDS ORDERED: VANCOMYCIN HCL 1000MG/20ML VIAL ONE (14:23)
[2021-08-30] MEDS ORDERED: LIDOCAINE 1% LOCAL 20 ML VIAL ONE (14:23)
--- NOTE | 2021-08-30 15:34 | Post Anesthesia Assessment ---
Date of Service August 30, 2021 Post Sedation Assessment Vital Signs Temp Pulse Pulse Resp BP BP Pulse Ox 08/30/21 12:00 08/30/21 11:18 37.2 C 60 16 135/75 91 08/30/21 09:00 36.8 C 68 16 129/68 08/30/21 08:00 60 08/30/21 07:34 37.9 C H 65 16 188/98 H 91 08/30/21 04:11 175/84 H 08/30/21 03:00 37.1 C 53 L 20 190/84 H 92 08/29/21 23:00 36.8 C 60 19 170/80 H 91 08/29/21 22:18 60 08/29/21 21:51 37.4 C 08/29/21 20:38 166/80 H 08/29/21 19:51 37.7 C H 60 20 184/91 H 91 Pulse Ox 08/30/21 12:00 95 08/30/21 11:18 08/30/21 09:00 08/30/21 08:00 08/30/21 07:34 08/30/21 04:11 08/30/21 03:00 08/29/21 23:00 08/29/21 22:18 08/29/21 21:51 08/29/21 20:38 08/29/21 19:51 Recovery Score Activity: Moves 4 extremities Respiration: Deep Breath/Cough Circulation: +/-20% PreAnes Value Consciousness: Fully Awake Oxygen Saturation: > 92% On Room Air Discharge Sedation Level of Care: Fast Track Phase II Post Sedation Plan On clinical assessment, the patient appears to have tolerated the sedation without complications. Patient is recovering as anticipated. Patient will continue to be monitored by nursing and may be discharged when sedation discharge criteria are met per below protocol. Upon Completions of procedure up to 15 minutes continue every 5 minute vital signs and the P.A.R. score; then discharge to a Phase I or Fast Track to Phase II per the following guidelines: * Discharge Patient to appropriate Phase II area if PAR is 8 or greater or return to pre- procedure baseline. The post - procedure orders will be as directed. * If PAR score is less than 8 or not return to pre-procedure baseline then patient will follow Phase I monitoring till PAR is reached for Phase II. The Phase I may be done in procedure room or may call to secure a Phase I area. * If naloxone or flumazenil are used for reversal, hold in Phase I for continued monitoring from when last reversal dose was given for a minimum of 60 minutes or longer pending the nurse and/or physician discretion of patient condition before discharge to Phase II. Please call the Sedation Physician to re-evaluate and complete post-note for discharge to Phase II area. Do NOT discharge from procedure sedation or Phase 1 until post- sedation evaluation note is complete by procedure /sedation MD Sedation Discharge Instructions to be given to the patient at discharge to home.
--- NOTE | 2021-08-30 15:35 | Operative Report ---
Post Operative Report Pre & Post Diagnosis SSS, ppm at [facility] Operation Date: 08/30/21 15:00 <No data on this case meets the specified criteria> I identified the patient and participated in the time-out.: Yes Procedure Operation Date: 08/30/21 15:00 Actual Procedures p Pacemaker/ICD Battery Change - Candi Mejia DO Surgeon Candi Mejia, Automation Machine Builder none Estimated Blood Loss 10 Findings Consistent with Post-Op Diagnosis Specimens none Description of Procedure see official report I attest to the content of the Intraoperative Record and any orders documented therein. Any exceptions are noted below.
[2021-08-30] MEDS ORDERED: ceFAZolin 1000MG 1,000 MG/7.5 ML SYR IV ONE (16:00)
[2021-08-30] MEDS: ATORVASTATIN 20 MG TAB PO SCH (21:39)
[2021-08-30] MEDS: LIDOCAINE 5% 1 PATCH TD SCH (21:41)
[2021-08-31 00:32] LABS: Appearance Urine Clear (Clear); Bacteria Urine Automated Negative (Negative); Bilirubin Urine Negative (Negative); Blood Urine 2+ (Negative); Color Urine Dark Yellow; Glucose Urine UA Negative (Negative); Ketones Urine 1+ (Negative); Leukocyte Esterase Urine 1+ (Negative); Nitrite Urine Negative (Negative); Protein Urine Trace (Negative); Specific Gravity Urine 1.023 (1.000-1.030); Urobilinogen Urine Negative (Negative); pH Urine 5.5 (4.5-7.5)
[2021-08-31 05:35] LABS: Basophils # (auto) 0.02 K/uL (0-0.2); Basophils % (auto) 0.2 %; Eosinophils # (auto) 0.07 K/uL (0-0.5); Eosinophils % (auto) 0.7 %; Hematocrit (blood only) 36.5 % (42-52); Hemoglobin 12.5 g/dL (14.0-18.0); Immature Granulocytes # (auto) 0.02 K/uL (0.00-0.02); Immature Granulocytes % (auto) 0.2 %; Lymphocytes # (auto) 0.98 K/uL (1.2-3.4); Mean Corpuscular Hemoglobin 31.4 pg (25-34); Mean Corpuscular Hgb Conc 34.2 g/dL (32-36); Mean Corpuscular Volume 91.7 fL (80-100); Mean Platelet Volume 11.2 fL (7.4-10.4); Monocytes # (auto) 0.95 K/uL (0.11-0.59); Monocytes % (auto) 9.7 %; Neutrophils # (auto) 7.74 K/uL (1.4-6.5); Neutrophils % (auto) 79.2 %; Platelet Count 198 K/uL (130-400); RDW Coefficient of Variation 13.6 % (11.5-14.5); RDW Standard Deviation 45.9 fL (36.4-46.3); Red Blood Count 3.98 M/uL (4.7-6.1); White Blood Count 9.78 K/uL (4.8-10.8)
[2021-08-31 06:07] LABS: Albumin Level 2.5 gm/dl (3.4-5.0); BUN Creatinine Ratio 28.6 (10-20); Bilirubin Direct 0.3 mg/dl (0-0.2); Bilirubin,Total 0.9 mg/dl (0.2-1); Calcium 8.4 mg/dl (8.5-10.1); Creatinine Clr Calc Pharmacy 89.5 ml/min; Est GFR (African American) 95.4 ml/min; Est GFR (Non-African American) 82.3 ml/min; Potassium 3.5 mmol/L (3.5-5.1); Total Protein 6.5 gm/dl (6.4-8.2)
[2021-08-31] MEDS: ASPIRIN 81 MG ECTAB PO SCH (08:49)
[2021-08-31] MEDS: LOSARTAN POTASSIUM 50 MG TAB PO SCH ×2 (08:50→19:58)
[2021-08-31] MEDS: METOPROLOL TARTRATE 25 MG TAB PO SCH (09:27)
[2021-08-31] MEDS: CARBIDOPA/LEVODOPA 25/100MG TAB PO SCH ×2 (09:28→19:58)
[2021-08-31] MEDS: DONEPEZIL HCL 5 MG TAB PO SCH (09:28)
--- NOTE | 2021-08-31 09:49 | Hospitalist Progress Note ---
Date of Service August 31, 2021 Assessment & Plan (1) Fall: (2) Weakness: (3) Rhabdomyolysis: (4) Left rib fracture: (5) T12 compression fracture: (6) Parkinson's disease: (7) Lewy body dementia: (8) CAD (coronary artery disease): (9) Pacemaker: (10) DVT prophylaxis: Plan: This is a 85-year-old male who has significant past medical history of Parkinson's disease, Lewy body dementia, CAD with history of CABG, pacemaker placement, severe aortic stenosis status post AVR, history of aortic aneurysm status post repair, PAF, hypertension, acquired hemolytic anemia who presents to ED after sustaining a fall 3 days prior to arrival as well as a fall on day of admission. He further had increased weakness and inability to care for self and therefore was brought in for evaluation. Patient was found to have rhabdomyolysis, left fourth rib fracture, small hemothorax and minimal acute superior endplate compression deformity at T12. In ED he received IV fluid and IV Tylenol. Fall Weakness Rhabdomyolysis admit to PCU CK trending down 1147 --> 700 --> 302, now 112 today AST and t bili normalized as well PT/OT Case management Elevated temperature T max 37.9, elevated temp x 2 on schedule Tylenol CXR: trace pleural effusions, dependent airspace opacity on R likely atelectasis, UA and blood cultures ordered UA without gross abnormality Urine and blood cultures pending Left Posterior 4th rib fracture Trace hemothorax conservative tx, lidocaine patch ordered schedule APAP tramadol prn encourage incentive spirometry, saturating well on room air Mild acute superior endplate compression fracture of T 12 conservative tx, pain control PT/OT consulted Parkinson disease Lewey body dementia continue sinemet, aricept mood stable, no agitation CAD Hx of CABG PAF - [id number] 3 - not anticoagulated 2/2 to age, falls Severe s/p AVR Pacemaker continue asa, statin, metoprolol follows Dr. Mejia, s/p PM generator replacement HTN pt started on losartan 50mg daily on 08/29, increased to BID labile continue metoprolol follow renal fxn Hematuria noted in villasenor bag, per nursing staff pt tugging at cath which resulted in blood in urine continue to monitor, urine clear today DVT ppx: SCD/TEDS for now in setting of trace hemothorax, fall risk and age Dispo: Patient to transfer to PCU after pacemaker generator change, not medically stable for d/c, d/c to SNF when stable PCP: Dr. Claribel Gaines DNR/DNI Pt was seen and examined in collaboration with Dr. Junior, please see addendum Admission and Anticipated Discharge Date Admission Date: August 27, 2021 Supervising Physician Co-Signing Physician Notes I have seen and examined the patient and have discussed the case with the provider above. I agree with the assessment and plan as stated. Mr. Ozuna appears slightly more interactive today and still at his mental baseline of oriented to self. He denies any pain clearly. He denies SOB, pacer or L shoulder pain. Reports not eating much but I couldn't understand his reasoning. Day nurse had gone home at this time. Still hypertensive-uncertain if there is a white coat hypertension effect going on? or some other secondary cause. We have already started losartan 50mg BID since admission. Will consider villasenor removal to help with possible discomfort. Also consider cardiology consultation for thoughts and help [facility]. Afebrile, and awaiting a bed at [facility]. No bed available per case management until Saturday. My physical exam reflects that above. Pacer site has dressing in place that is c/d/i. Vernon, DO Subjective This is a 85-year-old male who has significant past medical history of Parkinson 's disease, Lewy body dementia, CAD with history of CABG, pacemaker placement, severe aortic stenosis status post AVR, history of aortic aneurysm status post repair, PAF, hypertension, acquired hemolytic anemia who presents to ED after sustaining a fall 3 days prior to arrival as well as a fall on day of admission. He further had increased weakness and inability to care for self and therefore was brought in for evaluation. Patient was found to have rhabdomyolysis, left fourth rib fracture, small hemothorax and minimal acute superior endplate compression deformity at T12. ROS unreliable given cognitive status. Discussed with nursing staff. He did have elevated temperature the evening of 08/29 and morning of 08/30 at 37.9 C. He received Tylenol and temperature returned to 36.8. No fever in over 24 hours. Urine and blood cultures pending. Underwent generator change by Dr. Mejia yesterday 08/30/21. Patient appears comfortable. No acute changes overnight. Unreliable ROS 2/2 cognitive state. Review of Systems Review of Systems: Unobtainable due to cognitive status Physical Exam Physical Exam: Gen: WD/WN, elderly, male, demented, lying in bed, sleeping but arouses to verbal stimuli, NAD, A&O to self only HEENT: Normocephalic, atraumatic, conjunctivae moist, sclerae anicteric, mucous membranes dry. Lung: Clear to Auscultation bilaterally, no wheezes/rales/rhonchi Heart: Regular rate, regular rhythm, +systolic murmur, no rubs or gallops, pacer site on L anterior chest wall c/d/i Abdomen: Soft, NT, ND +BS x 4 Extremities: No edema Skin: Warm, no rash, negative turgor. Results & Data Results & Data ([facility]) Vital Signs (Past 12 Hours) Vital Signs Temp Pulse Pulse Resp BP BP Pulse Ox 08/31/21 08:47 37 C 61 20 180/83 H 92 08/31/21 06:12 153/91 H 08/31/21 03:24 36.9 C 60 18 186/92 H 95 08/30/21 23:07 37.3 C 61 22 172/89 H 96 Laboratory Results Short CBC 08/31/21 Range/Units 05:01 WBC 9.78 (4.8-10.8) K/uL Hgb 12.5 L (14.0-18.0) g/dL Hct 36.5 L (42-52) % Plt Count 198 (130-400) K/uL BMP 08/31/21 05:01 Sodium 143 Potassium 3.5 Chloride 111 H Carbon Dioxide 26 BUN 22 H Creatinine 0.78 Glucose 105 H Calcium 8.4 L Liver Function 08/31/21 Range/Units 05:01 Total Bilirubin 0.9 (0.2-1) mg/dl Direct Bilirubin 0.3 H (0-0.2) mg/dl AST 16 (15-37) U/L ALT 11 L (12-78) U/L Alkaline Phosphatase 77 (45-117) U/L Albumin 2.5 L (3.4-5.0) gm/dl Urine 08/31/21 Range/Units 00:05 Urine Color Dark Yellow Urine Appearance Clear (Clear) Urine pH 5.5 (4.5-7.5) Ur Specific [place] 1.023 (1.000-1.030) Urine Protein Trace H (Negative) Urine Glucose (UA) Negative (Negative) Diagnostic Findings Abdomen/Pelvis CT 08/27/21 15:36 CT SCAN OF THE CHEST, ABDOMEN, AND PELVIS WITH IV CONTRAST CLINICAL HISTORY: Trauma. Fall down stairs. COMPARISON STUDY: Chest CT dated 11/02/2015. TECHNIQUE: Following the IV administration of 90 of Optiray 320, CT scan of the chest, abdomen, and pelvis was performed from the thoracic inlet to the proximal femora. Images are reviewed in the axial, sagittal, and coronal planes. IV contrast was administered without complication. A dose lowering technique was utilized adhering to the principles of ALARA. There is motion artifact, as well as streak artifact from the arms which could not be elevated above the chest or abdomen. CT DOSE: 2740.59 mGy.cm FINDINGS: CHEST: Thyroid: Imaged portions of the thyroid gland are normal in size and attenuation. Thoracic aorta: Postoperative change is noted involving the ascending thoracic aorta. There is atherosclerotic calcification of the thoracic aorta, which is normal in caliber and demonstrates standard 3-vessel arch anatomy. No dissection is seen. Pulmonary vasculature: The pulmonary trunk is normal in caliber. There are no filling defects identified in the central pulmonary vessels to indicate pulmonary embolus. Note that this examination was not protocoled for evaluation of the pulmonary arteries. Heart: A 2-lead cardiac pacemaker is present in the left chest wall. The patient is status post midline sternotomy. The heart is enlarged and without pericardial effusion. Coronary arteries are densely calcified. Lungs and pleural spaces: Trace hemothorax is seen at the left lung base. No pneumothorax is identified. The trachea and central airways are clear. Scarrin g/atelectasis is noted at both lung bases. There are scattered calcified granulomas. Mediastinum: There is no hematoma. Scattered subcentimeter mediastinal lymph nodes are not pathologically enlarged by size criteria. Vesta: Clear. Axillae: There is no axillary lymphadenopathy. Bony thorax: The skeletal structures are osteopenic. There is an acute left posterior 4th rib fracture. There is a minimal acute superior endplate compression fracture of T12. The remainder of the bony thorax appears intact. Degenerative change and mild hyperkyphosis are noted in the thoracic spine. Arthritic changes seen in the shoulders. No lytic or blastic lesions are identified. ABDOMEN AND PELVIS: Liver: The contrast-enhanced liver is normal in size, contour, and attenuation. There is no intra- or extrahepatic biliary ductal dilatation. The hepatic veins and portal veins are patent. Gallbladder: Unremarkable. Spleen: Normal in size and attenuation. Pancreas: Moderately atrophic and grossly unremarkable. Adrenal glands: Unremarkable. Kidneys: The contrast enhanced kidneys are atrophic and without hydronephrosis. The kidneys enhance symmetrically. There are least 2 right renal cysts which measure up to 2.6 cm. Abdominal vasculature: There is advanced atherosclerotic calcification and mild ectasia of the abdominal aorta. Bowel: Moderate fecal retention is seen throughout the colon. There is no bowel obstruction. The appendix is not visualized. Peritoneum: There is no intraperitoneal free air or abdominal ascites. Lymphadenopathy: None. Pelvic viscera: The prostate gland is markedly enlarged and heterogeneous noting median lobe hypertrophy. The bladder is decompressed. The bladder wall appears thickened and trabeculated indicating chronic outlet obstruction. Skeletal structures: The skeletal structures are osteopenic. The lumbosacral spine, bony pelvis, and proximal femora appear intact. There is [id number] lumbosacral spondylosis. No lytic or blastic lesions are seen. IMPRESSION: 1. Significantly streak and motion compromised examination. 2. There is a mild acute superior endplate compression fracture of T12. 3. There is an acute left posterior 4th rib fracture. 4. Trace hemothorax is seen at the left lung base. 5. No pneumothorax. 6. Cardiomegaly. 7. There is no evidence of solid organ injury in the abdomen or pelvis. 8. Additional findings as above. ACT 112: Negative or not required by law. Electronically signed by: Rancho Roberts M.D. 08/27/2021 6:[address] 08/27/21 15:36 CT SCAN OF THE CERVICAL SPINE CLINICAL HISTORY: Trauma. Fall down stairs. COMPARISON STUDY: CT of the cervical spine dated 08/29/2018. TECHNIQUE: CT scan of the cervical spine is performed from the skull base to the upper thoracic spine. Images are reviewed in the axial, sagittal, and coronal planes. IV contrast was not administered for this examination. A dose lowering technique was utilized adhering to the principles of ALARA. FINDINGS: Skeletal structures: The skeletal structures are osteopenic. There is no evidence of fracture or subluxation involving the cervical spine. Vertebral body height and alignment are maintained. There is straightening of the cervical lordosis. Anterior osteophytes are seen throughout. The odontoid process and lateral masses are intact. The atlantoaxial articulation is preserved noting advanced productive degenerative change. The spinous processes appear intact. There is moderate multilevel cervical spondylosis. Uncovertebral and facet arthropathy contribute to neural foraminal narrowing at several levels. Intervertebral discs: There is advanced disc space narrowing at C6-C7. Mild to moderate disc space narrowing is noted at the remaining cervical levels. Central canal: Posterior disc osteophyte complexes at C5-C6 and C6-C7 likely contribute to acquired compromise of the central canal. Soft tissues: The prevertebral and paraspinous soft tissues are within normal limits. There is atherosclerotic calcification of the carotid bulbs. Pacemaker leads are noted at the left thoracic inlet. A calcified sialolith is noted in the left parotid gland. Calvarium: The visualized calvarium at the skull base appears intact. Brain parenchyma: Partially visualized brain parenchyma at the skull base is within normal limits. Sinuses and mastoids: The visualized paranasal sinuses are clear. The mastoid air cells are well pneumatized. Lung apices: Clear as visualized. IMPRESSION: 1. There is no evidence of fracture or subluxation involving the cervical spine. 2. Osteopenia and spondylotic change as above. ACT 112: Negative or not required by law. Electronically signed by: Rancho Roberts M.D. 08/27/2021 6:[address] 08/27/21 15:36 CT SCAN OF THE CHEST, ABDOMEN, AND PELVIS WITH IV CONTRAST CLINICAL HISTORY: Trauma. Fall down stairs. COMPARISON STUDY: Chest CT dated 11/02/2015. TECHNIQUE: Following the IV administration of 90 of Optiray 320, CT scan of the chest, abdomen, and pelvis was performed from the thoracic inlet to the proximal femora. Images are reviewed in the axial, sagittal, and coronal planes. IV contrast was administered without complication. A dose lowering technique was utilized adhering to the principles of ALARA. There is motion artifact, as well as streak artifact from the arms which could not be elevated above the chest or abdomen. CT DOSE: 2740.59 mGy.cm FINDINGS: CHEST: Thyroid: Imaged portions of the thyroid gland are normal in size and attenuation. Thoracic aorta: Postoperative change is noted involving the ascending thoracic aorta. There is atherosclerotic calcification of the thoracic aorta, which is n ormal in caliber and demonstrates standard 3-vessel arch anatomy. No dissection is seen. Pulmonary vasculature: The pulmonary trunk is normal in caliber. There are no filling defects identified in the central pulmonary vessels to indicate pulmonary embolus. Note that this examination was not protocoled for evaluation of the pulmonary arteries. Heart: A 2-lead cardiac pacemaker is present in the left chest wall. The patient is status post midline sternotomy. The heart is enlarged and without pericardial effusion. Coronary arteries are densely calcified. Lungs and pleural spaces: Trace hemothorax is seen at the left lung base. No pneumothorax is identified. The trachea and central airways are clear. Scarring/atelectasis is noted at both lung bases. There are scattered calcified granulomas. Mediastinum: There is no hematoma. Scattered subcentimeter mediastinal lymph nodes are not pathologically enlarged by size criteria. [place]: Clear. Axillae: There is no axillary lymphadenopathy. Bony thorax: The skeletal structures are osteopenic. There is an acute left posterior 4th rib fracture. There is a minimal acute superior endplate compression fracture of T12. The remainder of the bony thorax appears intact. Degenerative change and mild hyperkyphosis are noted in the thoracic spine. Arthritic changes seen in the shoulders. No lytic or blastic lesions are identified. ABDOMEN AND PELVIS: Liver: The contrast-enhanced liver is normal in size, contour, and attenuation. There is no intra- or extrahepatic biliary ductal dilatation. The hepatic veins and portal veins are patent. Gallbladder: Unremarkable. Spleen: Normal in size and attenuation. Pancreas: Moderately atrophic and grossly unremarkable. Adrenal glands: Unremarkable. Kidneys: The contrast enhanced kidneys are atrophic and without hydronephrosis. The kidneys enhance symmetrically. There are least 2 right renal cysts which measure up to 2.6 cm. Abdominal vasculature: There is advanced atherosclerotic calcification and mild ectasia of the abdominal aorta. Bowel: Moderate fecal retention is seen throughout the colon. There is no bowel obstruction. The appendix is not visualized. Peritoneum: There is no intraperitoneal free air or abdominal ascites. Lymphadenopathy: None. Pelvic viscera: The prostate gland is markedly enlarged and heterogeneous noting median lobe hypertrophy. The bladder is decompressed. The bladder wall appears thickened and trabeculated indicating chronic outlet obstruction. Skeletal structures: The skeletal structures are osteopenic. The lumbosacral spine, bony pelvis, and proximal femora appear intact. There is [id number] lumbosacral spondylosis. No lytic or blastic lesions are seen. IMPRESSION: 1. Significantly streak and motion compromised examination. 2. There is a mild acute superior endplate compression fracture of T12. 3. There is an acute left posterior 4th rib fracture. 4. Trace hemothorax is seen at the left lung base. 5. No pneumothorax. 6. Cardiomegaly. 7. There is no evidence of solid organ injury in the abdomen or pelvis. 8. Additional findings as above. ACT 112: Negative or not required by law. Electronically signed by: Rancho Roberts M.D. 08/27/2021 6:43 PM Chest X-Ray 08/27/21 15:36 SINGLE VIEW CHEST CLINICAL HISTORY: Fall. FINDINGS: An AP, portable, upright chest radiograph is compared to study dated 05/26/2021. A 2-lead cardiac pacemaker is unchanged in position. The patient is status post midline sternotomy. The heart is enlarged noting atherosclerotic calcification of the thoracic aorta. The pulmonary vasculature is noncongested. Chronic interstitial thickening is similar to previous. Scarring/atelectasis is noted at the lung bases. No airspace consolidation or large pleural effusion is identified. No pneumothorax is seen. The skeletal structures are osteopenic. The bony thorax is grossly intact. IMPRESSION: 1. Cardiomegaly and cardiac pacemaker. There is no radiographic evidence of congestive failure. 2. No airspace consolidation or large pleural effusion is identified. ACT 112: Negative or not required by law. Electronically signed by: Rancho Roberts M.D. 08/27/2021 4:[address] 08/27/21 15:36 CT SCAN OF THE BRAIN WITHOUT IV CONTRAST CLINICAL HISTORY: Trauma. Fall down stairs. COMPARISON STUDY: CT of the brain dated 05/26/2021. TECHNIQUE: Unenhanced axial CT scan of the brain is performed from the vertex to the skull base. A dose lowering technique was utilized adhering to the principles of ALARA. FINDINGS: Brain parenchyma: There are age-related involutional changes noting moderate to advanced confluent subcortical and periventricular microangiopathic change. There is no hemorrhage, mass effect, or evidence of acute territorial ischemia by CT criteria. 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 Smith-white matter differentiation is preserved. No extra-axial fluid collection is seen. Ventricles, sulci, cisterns: Prominent secondary to involutional change. Intracranial vasculature: There is atherosclerotic calcification of the cavernous carotid and vertebral arteries. Calvarium: The skeletal structures are osteopenic. There is no depressed calvarial fracture. Sinuses and mastoids: The visualized paranasal sinuses are clear. The mastoid air cells are well pneumatized. Orbits: The bony orbits are grossly intact. There are bilateral ocular lens implants. IMPRESSION: There is no hemorrhage, mass effect, or evidence of acute territorial ischemia by CT criteria. ACT 112: Negative or not required by law. Electronically signed by: Rancho Roberts M.D. 08/27/2021 6:17 PM Shoulder X-Ray 08/27/21 15:53 LEFT SHOULDER 3 VIEWS CLINICAL HISTORY: Fall. Left shoulder pain. FINDINGS: 3 views of the left shoulder are obtained. No prior studies are available for comparison at the time of dictation. The skeletal structures are osteopenic. There is no radiographic evidence of left shoulder fracture or dislocation. Productive degenerative change is noted at the acromioclavicular joint. Mild arthritic change is also seen at the glenohumeral articulation. The overlying soft tissues are within normal limits. A cardiac pacemaker is in place. The patient is status post midline sternotomy and the heart is enlarged. Left lung parenchyma is clear as visualized. IMPRESSION: No acute bony abnormality is identified. Electronically signed by: Rancho Roberts M.D. 08/27/2021 4:38 PM Chest X-Ray 08/30/21 12:53 SINGLE VIEW CHEST CLINICAL HISTORY: Fever. FINDINGS: An AP, portable, upright chest radiograph is compared to chest x-ray and chest CT dated 08/27/2021. The patient is status post midline sternotomy. A 2-lead cardiac pacemaker is unchanged in position. The heart is enlarged noting atherosclerotic calcification of the thoracic aorta. The pulmonary vasculature is noncongested. Airspace opacities at the right lung base likely represent atelectasis. Trace pleural effusions are suspected. No pneumothorax is seen. The skeletal structures are osteopenic. Left fourth rib fracture is again noted. IMPRESSION: 1. Cardiomegaly and cardiac pacemaker with no radiographic evidence of congestive failure. 2. Airspace opacities at the right lung base likely represent atelectasis. Clinical correlation will be required. 3. Suspect trace pleural effusions. ACT 112: Negative or not required by law. Electronically signed by: Rancho Roberts M.D. 08/30/2021 1:40 PM (1) Left rib fracture Encounter type: initial encounter Fracture type: closed Rib fracture type: single rib Qualified Code(s): S22.32XA - Fracture of one rib, left side, initial encounter for closed fracture (2) T12 compression fracture Encounter type: initial encounter Qualified Code(s): S22.080A - Wedge compression fracture of T11-T12 vertebra, initial encounter for closed fracture (3) Rhabdomyolysis Encounter type: initial encounter Rhabdomyolysis type: traumatic Qualified Code(s): T79.6XXA - Traumatic ischemia of muscle, initial encounter (4) Fall Encounter type: initial encounter Qualified Code(s): W19.XXXA - Unspecified fall, initial encounter
[2021-08-31] MEDS ORDERED: hydrALAZINE HCL 20 MG/ML VIAL ONE (19:50)
[2021-08-31] MEDS: LIDOCAINE 5% 1 PATCH TD SCH (19:58)
[2021-08-31] MEDS: ATORVASTATIN 20 MG TAB PO SCH (19:58)
[2021-08-31] MEDS ORDERED: hydrALAZINE HCL 20 MG/ML VIAL IV STA (21:31)
[2021-09-01 05:29] LABS: Hematocrit (blood only) 39.4 % (42-52); Hemoglobin 13.2 g/dL (14.0-18.0); Mean Corpuscular Hemoglobin 31.2 pg (25-34); Mean Corpuscular Hgb Conc 33.5 g/dL (32-36); Mean Corpuscular Volume 93.1 fL (80-100); Mean Platelet Volume 11.1 fL (7.4-10.4); Platelet Count 226 K/uL (130-400); RDW Coefficient of Variation 13.6 % (11.5-14.5); RDW Standard Deviation 46.5 fL (36.4-46.3); Red Blood Count 4.23 M/uL (4.7-6.1); White Blood Count 8.72 K/uL (4.8-10.8)
[2021-09-01 05:55] LABS: BUN Creatinine Ratio 27.8 (10-20); Calcium 8.5 mg/dl (8.5-10.1); Creatinine Clr Calc Pharmacy 87.3 ml/min; Est GFR (African American) 94.4 ml/min; Est GFR (Non-African American) 81.5 ml/min; Potassium 3.4 mmol/L (3.5-5.1)
[2021-09-01] MEDS: ASPIRIN 81 MG ECTAB PO SCH (08:30)
[2021-09-01] MEDS: CARBIDOPA/LEVODOPA 25/100MG TAB PO SCH ×2 (08:30→20:33)
[2021-09-01] MEDS: DONEPEZIL HCL 5 MG TAB PO SCH (08:30)
[2021-09-01] MEDS: METOPROLOL TARTRATE 25 MG TAB PO SCH (08:30)
[2021-09-01] MEDS: LOSARTAN POTASSIUM 50 MG TAB PO SCH ×2 (08:30→20:33)
[2021-09-01] MEDS ORDERED: POTASSIUM CHLORIDE CRTAB 20 MEQ TABCR PO STA (09:00)
[2021-09-01] MEDS ORDERED: POTASSIUM CHLORIDE 20 MEQ/15 ML UDC PO STA (11:37)
--- NOTE | 2021-09-01 11:45 | Hospitalist Progress Note ---
Date of Service September 01, 2021 Assessment & Plan (1) Fall: (2) Weakness: (3) Rhabdomyolysis: (4) Left rib fracture: (5) T12 compression fracture: (6) Parkinson's disease: (7) Lewy body dementia: (8) CAD (coronary artery disease): (9) Pacemaker: (10) DVT prophylaxis: Plan: This is a 85-year-old male who has significant past medical history of Parkinson's disease, Lewy body dementia, CAD with history of CABG, pacemaker placement, severe aortic stenosis status post AVR, history of aortic aneurysm status post repair, PAF, hypertension, acquired hemolytic anemia who presents to ED after sustaining a fall 3 days prior to arrival as well as a fall on day of admission. He further had increased weakness and inability to care for self and therefore was brought in for evaluation. Patient was found to have rhabdomyolysis, left fourth rib fracture, small hemothorax and minimal acute superior endplate compression deformity at T12. In ED he received IV fluid and IV Tylenol. Fall Weakness Rhabdomyolysis admit to PCU CK trending down 1147 --> 700 --> 302, now 112 today AST and t bili normalized as well PT/OT Case management Elevated temperature T max 37.9, elevated temp x 2 on schedule Tylenol CXR: trace pleural effusions, dependent airspace opacity on R likely atelectasis, UA and blood cultures ordered UA without gross abnormality Preliminary urine and blood cultures without growth Left Posterior 4th rib fracture Trace hemothorax conservative tx, lidocaine patch ordered schedule APAP tramadol prn encourage incentive spirometry, saturating well on room air Mild acute superior endplate compression fracture of T 12 conservative tx, pain control PT/OT consulted Parkinson disease Lewey body dementia continue sinemet, aricept mood stable, no agitation CAD Hx of CABG PAF - [id number] 3 - not anticoagulated 2/2 to age, falls Severe s/p AVR Pacemaker continue asa, statin, metoprolol follows Dr. Mejia, s/p PM generator replacement HTN Continue metoprolol tartrate 25mg daily Started on losartan 50mg daily on 08/29, increased to BID Discussed persistently elevated BP with production control technologist filling station attendant today. Suggested addition of amlodipine 5mg HS Hydralazine PRN Hematuria Noted in villasenor bag, per nursing staff pt tugging at cath which resulted in blood in urine Continue to monitor, urine clear today Villasenor catheter removed DVT ppx: SCD/TEDS for now in setting of trace hemothorax, fall risk and age Dispo: Patient to transfer to PCU after pacemaker generator change, plan for dc to [facility] on Saturday. Plan discussed with CM, (JEAN PAULA) and patient PCP: Dr. Claribel Gaines DNR/DNI Pt was seen and examined in collaboration with Dr. Junior, please see addendum Admission and Anticipated Discharge Date Admission Date: August 27, 2021 Supervising Physician Co-Signing Physician Notes I have seen and examined the patient and have discussed the case with the provider above. I agree with the assessment and plan as stated. Mr. Ozuna is the most alert and responsive I have seen him this admission. He is very weak and cannot move around in bed by himself. He is hypophonic, but clearly expresses that he is ready to go home. He denies any pain and feels well. We discussed the idea of rehab which he will discuss further with his . Denies chest pain, left shoulder pain, abdominal pain, no SOB, afebrile. reported wound on scrotum which he think is gone. No wound was seen. Urinary catheter removed. Physical reflects a very weak elderly man in NAD. Heart exam reveals S1/2 heard without mgr. Pacer is covered with dressing that is cdi. Lungs are clear to auscultation. Cont efforts at therapy as tolerated and position him for rehab transfer after the weekend. Will add norvasc for persistently elevated blood pressure. Vernon, DO Subjective This is a 85-year-old male who has significant past medical history of Parkinson's disease, Lewy body dementia, CAD with history of CABG, pacemaker placement, severe aortic stenosis status post AVR, history of aortic aneurysm status post repair, PAF, hypertension, acquired hemolytic anemia who presents to ED after sustaining a fall 3 days prior to arrival as well as a fall on day of admission. He further had increased weakness and inability to care for self and therefore was brought in for evaluation. Patient was found to have rhabdomyolysis, left fourth rib fracture, small hemothorax and minimal acute superior endplate compression deformity at T12. ROS unreliable given cognitive status. Discussed with nursing staff. He did have elevated temperature the evening of 08/29 and morning of 08/30 at 37.9 C. He received Tylenol and temperature returned to 36.8. No fever in over 24 hours. Urine and blood cultures pending. Underwent generator change by Dr. Mejia 08/30/21. Patient appears comfortable. No acute changes overnight. Unreliable ROS 2/2 cognitive state. Review of Systems Review of Systems: Unobtainable due to cognitive status Physical Exam Physical Exam: Gen: WD/WN, elderly, male, demented, lying in bed, sleeping but arouses to verbal stimuli, NAD, A&O to self only HEENT: Normocephalic, atraumatic, conjunctivae moist, sclerae anicteric Lung: Clear to Auscultation bilaterally, no wheezes/rales/rhonchi Heart: Regular rate, regular rhythm, +systolic murmur, no rubs or gallops, pacer site on L anterior chest wall c/d/i Abdomen: Soft, NT, ND +BS x 4 Extremities: No edema Skin: Warm, no rash Results & Data Results & Data ([facility]) Vital Signs (Past 12 Hours) Vital Signs Temp Pulse Pulse Pulse Resp BP Pulse Ox 09/01/21 10:33 60 09/01/21 07:41 36.8 C 60 22 202/93 H 96 09/01/21 04:11 36.8 C 61 16 175/90 H 96 08/31/21 23:52 36.6 C 60 18 163/90 H 96 Laboratory Results Short CBC 09/01/21 Range/Units 05:18 WBC 8.72 (4.8-10.8) K/uL Hgb 13.2 L (14.0-18.0) g/dL Hct 39.4 L (42-52) % Plt Count 226 (130-400) K/uL BMP 09/01/21 05:18 Sodium 142 Potassium 3.4 L Chloride 112 H Carbon Dioxide 27 BUN 22 H Creatinine 0.80 Glucose 102 H Calcium 8.5 Diagnostic Findings Abdomen/Pelvis CT 08/27/21 15:36 CT SCAN OF THE CHEST, ABDOMEN, AND PELVIS WITH IV CONTRAST CLINICAL HISTORY: Trauma. Fall down stairs. COMPARISON STUDY: Chest CT dated 11/02/2015. TECHNIQUE: Following the IV administration of 90 of Optiray 320, CT scan of the chest, abdomen, and pelvis was performed from the thoracic inlet to the proximal femora. Images are reviewed in the axial, sagittal, and coronal planes. IV contrast was administered without complication. A dose lowering technique was utilized adhering to the principles of ALARA. There is motion artifact, as well as streak artifact from the arms which could not be elevated above the chest or abdomen. CT DOSE: 2740.59 mGy.cm FINDINGS: CHEST: Thyroid: Imaged portions of the thyroid gland are normal in size and attenuation. Thoracic aorta: Postoperative change is noted involving the ascending thoracic aorta. There is atherosclerotic calcification of the thoracic aorta, which is normal in caliber and demonstrates standard 3-vessel arch anatomy. No dissection is seen. Pulmonary vasculature: The pulmonary trunk is normal in caliber. There are no filling defects identified in the central pulmonary vessels to indicate pulmonary embolus. Note that this examination was not protocoled for evaluation of the pulmonary arteries. Heart: A 2-lead cardiac pacemaker is present in the left chest wall. The patient is status post midline sternotomy. The heart is enlarged and without pericardial effusion. Coronary arteries are densely calcified. Lungs and pleural spaces: Trace hemothorax is seen at the left lung base. No pneumothorax is identified. The trachea and central airways are clear. Scarring/atelectasis is noted at both lung bases. There are scattered calcified granulomas. Mediastinum: There is no hematoma. Scattered subcentimeter mediastinal lymph nodes are not pathologically enlarged by size criteria. Vesta: Clear. Axillae: There is no axillary lymphadenopathy. Bony thorax: The skeletal structures are osteopenic. There is an acute left posterior 4th rib fracture. There is a minimal acute superior endplate compression fracture of T12. The remainder of the bony thorax appears intact. Degenerative change and mild hyperkyphosis are noted in the thoracic spine. Arthritic changes seen in the shoulders. No lytic or blastic lesions are identified. ABDOMEN AND PELVIS: Liver: The contrast-enhanced liver is normal in size, contour, and attenuation. There is no intra- or extrahepatic biliary ductal dilatation. The hepatic veins and portal veins are patent. Gallbladder: Unremarkable. Spleen: Normal in size and attenuation. Pancreas: Moderately atrophic and grossly unremarkable. Adrenal glands: Unremarkable. Kidneys: The contrast enhanced kidneys are atrophic and without hydronephrosis. The kidneys enhance symmetrically. There are least 2 right renal cysts which measure up to 2.6 cm. Abdominal vasculature: There is advanced atherosclerotic calcification and mild ectasia of the abdominal aorta. Bowel: Moderate fecal retention is seen throughout the colon. There is no bowel obstruction. The appendix is not visualized. Peritoneum: There is no intraperitoneal free air or abdominal ascites. Lymphadenopathy: None. Pelvic viscera: The prostate gland is markedly enlarged and heterogeneous noting median lobe hypertrophy. The bladder is decompressed. The bladder wall appears thickened and trabeculated indicating chronic outlet obstruction. Skeletal structures: The skeletal structures are osteopenic. The lumbosacral spine, bony pelvis, and proximal femora appear intact. There is [id number] lumbosacral spondylosis. No lytic or blastic lesions are seen. IMPRESSION: 1. Significantly streak and motion compromised examination. 2. There is a mild acute superior endplate compression fracture of T12. 3. There is an acute left posterior 4th rib fracture. 4. Trace hemothorax is seen at the left lung base. 5. No pneumothorax. 6. Cardiomegaly. 7. There is no evidence of solid organ injury in the abdomen or pelvis. 8. Additional findings as above. ACT 112: Negative or not required by law. Electronically signed by: Rancho Roberts M.D. 08/27/2021 6:[address] 08/27/21 15:36 CT SCAN OF THE CERVICAL SPINE CLINICAL HISTORY: Trauma. Fall down stairs. COMPARISON STUDY: CT of the cervical spine dated 08/29/2018. TECHNIQUE: CT scan of the cervical spine is performed from the skull base to the upper thoracic spine. Images are reviewed in the axial, sagittal, and coronal planes. IV contrast was not administered for this examination. A dose lowering technique was utilized adhering to the principles of ALARA. FINDINGS: Skeletal structures: The skeletal structures are osteopenic. There is no evidence of fracture or subluxation involving the cervical spine. Vertebral body height and alignment are maintained. There is straightening of the cervical lordosis. Anterior osteophytes are seen throughout. The odontoid process and lateral masses are intact. The atlantoaxial articulation is preserved noting advanced productive degenerative change. The spinous processes appear intact. There is moderate multilevel cervical spondylosis. Uncovertebral and facet arthropathy contribute to neural foraminal narrowing at several levels. Intervertebral discs: There is advanced disc space narrowing at C6-C7. Mild to moderate disc space narrowing is noted at the remaining cervical levels. Central canal: Posterior disc osteophyte complexes at C5-C6 and C6-C7 likely contribute to acquired compromise of the central canal. Soft tissues: The prevertebral and paraspinous soft tissues are within normal limits. There is atherosclerotic calcification of the carotid bulbs. Pacemaker leads are noted at the left thoracic inlet. A calcified sialolith is noted in the left parotid gland. Calvarium: The visualized calvarium at the skull base appears intact. Brain parenchyma: Partially visualized brain parenchyma at the skull base is within normal limits. Sinuses and mastoids: The visualized paranasal sinuses are clear. The mastoid air cells are well pneumatized. Lung apices: Clear as visualized. IMPRESSION: 1. There is no evidence of fracture or subluxation involving the cervical spine. 2. Osteopenia and spondylotic change as above. ACT 112: Negative or not required by law. Electronically signed by: Rancho Roberts M.D. 08/27/2021 6:[address] 08/27/21 15:36 CT SCAN OF THE CHEST, ABDOMEN, AND PELVIS WITH IV CONTRAST CLINICAL HISTORY: Trauma. Fall down stairs. COMPARISON STUDY: Chest CT dated 11/02/2015. TECHNIQUE: Following the IV administration of 90 of Optiray 320, CT scan of the chest, abdomen, and pelvis was performed from the thoracic inlet to the proximal femora. Images are reviewed in the axial, sagittal, and coronal planes. IV contrast was administered without complication. A dose lowering technique was utilized adhering to the principles of ALARA. There is motion artifact, as well as streak artifact from the arms which could not be elevated above the chest or abdomen. CT DOSE: 2740.59 mGy.cm FINDINGS: CHEST: Thyroid: Imaged portions of the thyroid gland are normal in size and attenuation. Thoracic aorta: Postoperative change is noted involving the ascending thoracic aorta. There is atherosclerotic calcification of the thoracic aorta, which is normal in caliber and demonstrates standard 3-vessel arch anatomy. No dissection is seen. Pulmonary vasculature: The pulmonary trunk is normal in caliber. There are no filling defects identified in the central pulmonary vessels to indicate pulmonary embolus. Note that this examination was not protocoled for evaluation of the pulmonary arteries. Heart: A 2-lead cardiac pacemaker is present in the left chest wall. The patient is status post midline sternotomy. The heart is enlarged and without pericardial effusion. Coronary arteries are densely calcified. Lungs and pleural spaces: Trace hemothorax is seen at the left lung base. No pneumothorax is identified. The trachea and central airways are clear. Scarring/atelectasis is noted at both lung bases. There are scattered calcified granulomas. Mediastinum: There is no hematoma. Scattered subcentimeter mediastinal lymph nodes are not pathologically enlarged by size criteria. Vesta: Clear. Axillae: There is no axillary lymphadenopathy. Bony thorax: The skeletal structures are osteopenic. There is an acute left posterior 4th rib fracture. There is a minimal acute superior endplate compression fracture of T12. The remainder of the bony thorax appears intact. Degenerative change and mild hyperkyphosis are noted in the thoracic spine. Arthritic changes seen in the shoulders. No lytic or blastic lesions are identified. ABDOMEN AND PELVIS: Liver: The contrast-enhanced liver is normal in size, contour, and attenuation. There is no intra- or extrahepatic biliary ductal dilatation. The hepatic veins and portal veins are patent. Gallbladder: Unremarkable. Spleen: Normal in size and attenuation. Pancreas: Moderately atrophic and grossly unremarkable. Adrenal glands: Unremarkable. Kidneys: The contrast enhanced kidneys are atrophic and without hydronephrosis. The kidneys enhance symmetrically. There are least 2 right renal cysts which measure up to 2.6 cm. Abdominal vasculature: There is advanced atherosclerotic calcification and mild ectasia of the abdominal aorta. Bowel: Moderate fecal retention is seen throughout the colon. There is no bowel obstruction. The appendix is not visualized. Peritoneum: There is no intraperitoneal free air or abdominal ascites. Lymphadenopathy: None. Pelvic viscera: The prostate gland is markedly enlarged and heterogeneous noting median lobe hypertrophy. The bladder is decompressed. The bladder wall appears thickened and trabeculated indicating chronic outlet obstruction. Skeletal structures: The skeletal structures are osteopenic. The lumbosacral spine, bony pelvis, and proximal femora appear intact. There is qwih-[id number] lumbosacral spondylosis. No lytic or blastic lesions are seen. IMPRESSION: 1. Significantly streak and motion compromised examination. 2. There is a mild acute superior endplate compression fracture of T12. 3. There is an acute left posterior 4th rib fracture. 4. Trace hemothorax is seen at the left lung base. 5. No pneumothorax. 6. Cardiomegaly. 7. There is no evidence of solid organ injury in the abdomen or pelvis. 8. Additional findings as above. ACT 112: Negative or not required by law. Electronically signed by: Rancho Roberts M.D. 08/27/2021 6:43 PM Chest X-Ray 08/27/21 15:36 SINGLE VIEW CHEST CLINICAL HISTORY: Fall. FINDINGS: An AP, portable, upright chest radiograph is compared to study dated 05/26/2021. A 2-lead cardiac pacemaker is unchanged in position. The patient is status post midline sternotomy. The heart is enlarged noting atherosclerotic calcification of the thoracic aorta. The pulmonary vasculature is noncongested. Chronic interstitial thickening is similar to previous. Scarring/atelectasis is noted at the lung bases. No airspace consolidation or large pleural effusion is identified. No pneumothorax is seen. The skeletal structures are osteopenic. The bony thorax is grossly intact. IMPRESSION: 1. Cardiomegaly and cardiac pacemaker. There is no radiographic evidence of congestive failure. 2. No airspace consolidation or large pleural effusion is identified. ACT 112: Negative or not required by law. Electronically signed by: Rancho Roberts M.D. 08/27/2021 4:[address] 08/27/21 15:36 CT SCAN OF THE BRAIN WITHOUT IV CONTRAST CLINICAL HISTORY: Trauma. Fall down stairs. COMPARISON STUDY: CT of the brain dated 05/26/2021. TECHNIQUE: Unenhanced axial CT scan of the brain is performed from the vertex to the skull base. A dose lowering technique was utilized adhering to the pr inciples of CHERYL. FINDINGS: Brain parenchyma: There are age-related involutional changes noting moderate to advanced confluent subcortical and periventricular microangiopathic change. There is no hemorrhage, mass effect, or evidence of acute territorial ischemia by CT criteria. 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 Smith-white matter differentiation is preserved. No extra-axial fluid collection is seen. Ventricles, sulci, cisterns: Prominent secondary to involutional change. Intracranial vasculature: There is atherosclerotic calcification of the cavernous carotid and vertebral arteries. Calvarium: The skeletal structures are osteopenic. There is no depressed calvarial fracture. Sinuses and mastoids: The visualized paranasal sinuses are clear. The mastoid air cells are well pneumatized. Orbits: The bony orbits are grossly intact. There are bilateral ocular lens implants. IMPRESSION: There is no hemorrhage, mass effect, or evidence of acute territorial ischemia by CT criteria. ACT 112: Negative or not required by law. Electronically signed by: Rancho Roberts M.D. 08/27/2021 6:17 PM Shoulder X-Ray 08/27/21 15:53 LEFT SHOULDER 3 VIEWS CLINICAL HISTORY: Fall. Left shoulder pain. FINDINGS: 3 views of the left shoulder are obtained. No prior studies are available for comparison at the time of dictation. The skeletal structures are osteopenic. There is no radiographic evidence of left shoulder fracture or dislocation. Productive degenerative change is noted at the acromioclavicular joint. Mild arthritic change is also seen at the glenohumeral articulation. The overlying soft tissues are within normal limits. A cardiac pacemaker is in place. The patient is status post midline sternotomy and the heart is enlarged. Left lung parenchyma is clear as visualized. IMPRESSION: No acute bony abnormality is identified. Electronically signed by: Rancho Roberts M.D. 08/27/2021 4:38 PM Chest X-Ray 08/30/21 12:53 SINGLE VIEW CHEST CLINICAL HISTORY: Fever. FINDINGS: An AP, portable, upright chest radiograph is compared to chest x-ray and chest CT dated 08/27/2021. The patient is status post midline sternotomy. A 2-lead cardiac pacemaker is unchanged in position. The heart is enlarged noting atherosclerotic calcification of the thoracic aorta. The pulmonary vasculature is noncongested. Airspace opacities at the right lung base likely represent atelectasis. Trace pleural effusions are suspected. No pneumothorax is seen. The skeletal structures are osteopenic. Left fourth rib fracture is again noted. IMPRESSION: 1. Cardiomegaly and cardiac pacemaker with no radiographic evidence of congestive failure. 2. Airspace opacities at the right lung base likely represent atelectasis. Clinical correlation will be required. 3. Suspect trace pleural effusions. ACT 112: Negative or not required by law. Electronically signed by: Rancho Roberts M.D. 08/30/2021 1:40 PM (1) Left rib fracture Encounter type: initial encounter Fracture type: closed Rib fracture type: single rib Qualified Code(s): S22.32XA - Fracture of one rib, left side, initial encounter for closed fracture (2) T12 compression fracture Encounter type: initial encounter Qualified Code(s): S22.080A - Wedge compression fracture of T11-T12 vertebra, initial encounter for closed fracture (3) Rhabdomyolysis Encounter type: initial encounter Rhabdomyolysis type: traumatic Qualified Code(s): T79.6XXA - Traumatic ischemia of muscle, initial encounter (4) Fall Encounter type: initial encounter Qualified Code(s): W19.XXXA - Unspecified fall, initial encounter
[2021-09-01] MEDS: hydrALAZINE HCL 20 MG/ML VIAL IV PRN (12:07)
[2021-09-01] MEDS: amLODIPine BESYLATE 5 MG TAB PO SCH (20:33)
[2021-09-01] MEDS: ATORVASTATIN 20 MG TAB PO SCH (20:33)
[2021-09-01] MEDS: LIDOCAINE 5% 1 PATCH TD SCH (20:34)
[2021-09-02] MEDS: hydrALAZINE HCL 20 MG/ML VIAL IV PRN (05:49)
[2021-09-02] MEDS: LOSARTAN POTASSIUM 50 MG TAB PO SCH ×2 (08:35→21:46)
[2021-09-02] MEDS: CARBIDOPA/LEVODOPA 25/100MG TAB PO SCH ×2 (08:37→21:45)
[2021-09-02] MEDS: METOPROLOL TARTRATE 25 MG TAB PO SCH (08:38)
[2021-09-02] MEDS: ASPIRIN 81 MG ECTAB PO SCH (08:38)
[2021-09-02] MEDS: DONEPEZIL HCL 5 MG TAB PO SCH (08:38)
--- NOTE | 2021-09-02 09:20 | Hospitalist Progress Note ---
Date of Service September 02, 2021 Assessment & Plan (1) Fall: (2) Weakness: (3) Pacemaker: (4) Rhabdomyolysis: (5) Left rib fracture: (6) T12 compression fracture: (7) Parkinson's disease: (8) Lewy body dementia: (9) CAD (coronary artery disease): (10) DVT prophylaxis: Plan: This is a 85-year-old male who has significant past medical history of Parkinson's disease, Lewy body dementia, CAD with history of CABG, pacemaker placement, severe aortic stenosis status post AVR, history of aortic aneurysm status post repair, PAF, hypertension, acquired hemolytic anemia who presents to ED after sustaining a fall 3 days prior to arrival as well as a fall on day of admission. He further had increased weakness and inability to care for self and therefore was brought in for evaluation. Patient was found to have rhabdomyolysis, left fourth rib fracture, small hemothorax and minimal acute superior endplate compression deformity at T12. In ED he received IV fluid and IV Tylenol. Fall Weakness Rhabdomyolysis admit to PCU CK resolved to normal, awaiting SNF placement. Elevated temperature T max 37.9, elevated temp x 2 on schedule Tylenol last week. No superimposed bacterial infection. Off abx. Left Posterior 4th rib fracture Trace hemothorax conservative tx,encoaurge IS, pain control methods as needed-currently lidocaine patch and PRN tylenol Mild acute superior endplate compression fracture of T 12 conservative tx, pain control as above. Parkinson disease Lewey body dementia continue sinemet, aricept mood stable, no agitation CAD Hx of CABG PAF - [id number] 3 - not anticoagulated 2/2 to age, falls Severe s/p AVR Pacemaker generator replacement this admission, local wound care. continue asa, statin, metoprolol HTN urgency Continue metoprolol tartrate 25mg daily Started on losartan 50mg daily on 08/29, increased to BID Discussed persistently elevated BP with kitchen supervisor certified lactation counselor today. Suggested addition of amlodipine 5mg HS Hydralazine PRN BP slightly more controlled-concerned to make too many changes too quickly as there may be a component of white coar HTN Hematuria Noted in villasenor bag, per nursing staff pt tugging at cath which resulted in blood in urine this has resolved and urinary catheter has been removed. DVT ppx: SCD/TEDS for now in setting of trace hemothorax, fall risk and age Dispo: Patient to transfer to PCU after pacemaker generator change, plan for dc to [facility] on Saturday. Plan discussed with CM, (POA) and patient PCP: Dr. Claribel Gaines DNR/DNI [facility] Hospital[facility] Admission and Anticipated Discharge Date Admission Date: August 27, 2021 Subjective This is a 85-year-old male who has significant past medical history of Parkinson's disease, Lewy body dementia, CAD with history of CABG, pacemaker placement, severe aortic stenosis status post AVR, history of aortic aneurysm status post repair, PAF, hypertension, acquired hemolytic anemia who presents to ED after sustaining a fall 3 days prior to arrival as well as a fall on day of admission. He further had increased weakness and inability to care for self and therefore was brought in for evaluation. Patient was found to have rhabdomyolysis, left fourth rib fracture, small hemothorax and minimal acute superior endplate compression deformity at T12. ROS unreliable given cognitive status. Discussed with nursing staff. He did have elevated temperature the evening of 08/29 and morning of 08/30 at 37.9 C. He received Tylenol and temperature returned to 36.8. No fever in over 24 hours. Urine and blood cultures negative. Underwent generator change by Dr. Mejia 08/30/21. Patient appears comfortable. No acute changes overnight. Denies any pain and asks if and when he is supposed to transfer to rehab. Review of Systems Review of Systems: At least ten systems were reviewed and negative except as indicated in HPI above. Physical Exam Physical Exam: CONSTITUTIONAL: WNWD, vitals as above, generally well- appearing, elderly, hypophonic EYES: normal conjunctivae, no scleral icterus ENT: external ear and nose normal, MMM, poor dentition NECK: trachea midline RESPIRATORY: clear to auscultation bilaterally, no crackles, rales or wheezes, normal respiratory effort CARDIOVASCULAR: regular rate and rhythm, S1 and 2 heard without murmurs, gallops or rubs, no JVD, no peripheral edema CHEST: inspection of chest revealed pacer pocket which is covered, incision not visualized. Slight swelling to the area. GASTROINTESTINAL: soft, nontender, ND, no guarding MUSCULOSKELETAL: generalized weakness, head is normocephalic and atraumatic SKIN: warm and dry NEUROLOGIC: CN 2-12 grossly intact,hypophonic, normal cognition, no tremor PSYCHIATRIC: alert cooperative and answering questions appropriately. Results & Data Results & Data ([facility] [place]) Vital Signs (Past 12 Hours) Vital Signs Temp Pulse Resp BP BP Pulse Ox 09/02/21 08:59 36.8 C 60 22 143/71 H 96 09/02/21 06:21 163/74 H 09/02/21 04:50 36.3 C L 62 18 172/80 H 96 09/02/21 00:03 36.9 C 61 20 140/93 92 Medications Administered Current Inpatient Medications Acetaminophen (Acetaminophen 325 Mg Tab) 650 mg PO Q6H PRN PRN Reason: Fever/pain Stop: 09/26/21 19:48 Amlodipine Besylate (Amlodipine Besylate 5 Mg Tab) 5 mg PO HS FERNIE Stop: 10/01/21 20:59 Last Admin: 09/01/21 20:33 Dose: 5 mg Documented by: Aspirin (Aspirin 81 Mg Ectab) 81 mg PO DAILY FERNIE Stop: 09/30/21 08:59 Last Admin: 09/02/21 08:38 Dose: 81 mg Documented by: Atorvastatin Calcium (Atorvastatin 20 Mg Tab) 20 mg PO QPM FERNIE Stop: 09/29/21 20:59 Last Admin: 09/01/21 20:33 Dose: 20 mg Documented by: Carbidopa/Levodopa (Carbidopa/Levodopa 25/100mg Tab) 1 tab PO BID FERNIE Stop: 09/26/21 22:59 Last Admin: 09/02/21 08:37 Dose: 1 tab Documented by: Donepezil HCl (Donepezil Hcl 5 Mg Tab) 5 mg PO DAILY FERNIE Stop: 09/27/21 08:59 Last Admin: 09/02/21 08:38 Dose: 5 mg Documented by: Hydralazine HCl (Hydralazine 10 Mg Tab) 10 mg PO Q6H PRN PRN Reason: Hypertension Stop: 09/27/21 17:29 Last Admin: 08/29/21 05:58 Dose: 10 mg Documented by: Hydralazine HCl (Hydralazine Hcl 20 Mg/Ml Vial) 7.5 mg IV Q6H PRN PRN Reason: Hypertension Stop: 09/30/21 21:24 Last Admin: 09/02/21 05:49 Dose: 7.5 mg Documented by: Lorazepam (Ativan) 0.25 mg in 0.5 mls @ 0.5 mls/min IV Q4H PRN PRN Reason: Anxiety/Agitation Stop: 09/26/21 22:11 Lidocaine (Lidocaine 5% 1 Patch) 1 patch TD HS FERNIE Stop: 09/27/21 20:59 Last Admin: 09/01/21 20:34 Dose: 1 patch Documented by: Losartan Potassium (Losartan Potassium 50 Mg Tab) 50 mg PO BID FERNIE Stop: 09/29/21 16:29 Last Admin: 09/02/21 08:35 Dose: 50 mg Documented by: Metoprolol Tartrate (Metoprolol Tartrate 25 Mg Tab) 25 mg PO DAILY FERNIE Stop: 09/27/21 08:59 Last Admin: 09/02/21 08:38 Dose: 25 mg Documented by: Miscellaneous (Remove Lidoderm Patch) 1 ea N/A QAM [facility] Stop: 09/27/21 08:59 Last Admin: 09/01/21 08:30 Dose: 1 ea Documented by: Morphine Sulfate (Morphine Sulfate 2 Mg/Ml Carp) 2 mg IV Q4H PRN PRN Reason: Pain Stop: 09/11/21 01:13 Tramadol HCl (Tramadol Hcl 50 Mg Tablet) 25 mg PO Q4H PRN PRN Reason: Pain Stop: 09/27/21 01:13 (1) Left rib fracture Encounter type: initial encounter Fracture type: closed Rib fracture type: single rib Qualified Code(s): S22.32XA - Fracture of one rib, left side, initial encounter for closed fracture (2) T12 compression fracture Encounter type: initial encounter Qualified Code(s): S22.080A - Wedge compression fracture of T11-T12 vertebra, initial encounter for closed fracture (3) Rhabdomyolysis Encounter type: initial encounter Rhabdomyolysis type: traumatic Qualified Code(s): T79.6XXA - Traumatic ischemia of muscle, initial encounter (4) Fall Encounter type: initial encounter Qualified Code(s): W19.XXXA - Unspecified fall, initial encounter
[2021-09-02] MEDS: LIDOCAINE 5% 1 PATCH TD SCH (21:45)
[2021-09-02] MEDS: amLODIPine BESYLATE 5 MG TAB PO SCH (21:46)
[2021-09-02] MEDS: ATORVASTATIN 20 MG TAB PO SCH (21:46)
[2021-09-03] MEDS: hydrALAZINE 10 MG TAB PO PRN (02:09)
[2021-09-03] MEDS: DONEPEZIL HCL 5 MG TAB PO SCH (09:17)
[2021-09-03] MEDS: LOSARTAN POTASSIUM 50 MG TAB PO SCH ×2 (09:17→20:05)
[2021-09-03] MEDS: CARBIDOPA/LEVODOPA 25/100MG TAB PO SCH ×2 (09:17→20:05)
[2021-09-03] MEDS: ASPIRIN 81 MG ECTAB PO SCH (09:17)
[2021-09-03] MEDS: METOPROLOL TARTRATE 25 MG TAB PO SCH (09:17)
--- NOTE | 2021-09-03 14:46 | Hospitalist Progress Note ---
Date of Service September 03, 2021 Assessment & Plan (1) Fall: (2) Weakness: (3) Pacemaker: (4) Rhabdomyolysis: (5) Left rib fracture: (6) T12 compression fracture: (7) Parkinson's disease: (8) Lewy body dementia: (9) CAD (coronary artery disease): (10) DVT prophylaxis: Plan: This is a 85-year-old male who has significant past medical history of Parkinson's disease, Lewy body dementia, CAD with history of CABG, pacemaker placement, severe aortic stenosis status post AVR, history of aortic aneurysm status post repair, PAF, hypertension, acquired hemolytic anemia who presents to ED after sustaining a fall 3 days prior to arrival as well as a fall on day of admission. He further had increased weakness and inability to care for self and therefore was brought in for evaluation. Patient was found to have rhabdomyolysis, left fourth rib fracture, small hemothorax and minimal acute superior endplate compression deformity at T12. In ED he received IV fluid and IV Tylenol. Fall Weakness Rhabdomyolysis admit to PCU CK resolved to normal, awaiting SNF placement. Elevated temperature T max 37.9, elevated temp x 2 on schedule Tylenol last week. No superimposed bacterial infection. Off abx. Left Posterior 4th rib fracture Trace hemothorax conservative tx,encoaurge IS, pain control methods as needed-currently lidocaine patch and PRN tylenol Mild acute superior endplate compression fracture of T 12 conservative tx, pain control as above. Parkinson disease Lewey body dementia continue sinemet, aricept mood stable, no agitation CAD Hx of CABG PAF - [id number] 3 - not anticoagulated 2/2 to age, falls Severe s/p AVR Pacemaker generator replacement this admission, local wound care. continue asa, statin, metoprolol HTN urgency Continue metoprolol tartrate 25mg daily Started on losartan 50mg daily on 08/29, increased to BID Discussed persistently elevated BP with glove operator instrumentation fitter today. Suggested addition of amlodipine 5mg HS Hydralazine PRN BP slightly more controlled-concerned to make too many changes too quickly as there may be a component of white coar HTN Hematuria Noted in villasenor bag, per nursing staff pt tugging at cath which resulted in blood in urine this has resolved and urinary catheter has been removed. DVT ppx: SCD/TEDS for now in setting of trace hemothorax, fall risk and age Dispo: Patient to transfer to PCU after pacemaker generator change, plan for dc to [facility] on Saturday. Plan discussed with CM, (POA) and patient PCP: Dr. Claribel Gaines DNR/DNI DO [facility] Hospitalist Admission and Anticipated Discharge Date Admission Date: August 27, 2021 Subjective This is a 85-year-old male who has significant past medical history of Parkinson's disease, Lewy body dementia, CAD with history of CABG, pacemaker placement, severe aortic stenosis status post AVR, history of aortic aneurysm status post repair, PAF, hypertension, acquired hemolytic anemia who presents to ED after sustaining a fall 3 days prior to arrival as well as a fall on day of admission. He further had increased weakness and inability to care for self and therefore was brought in for evaluation. Patient was found to have rhabdomyolysis, left fourth rib fracture, small hemothorax and minimal acute superior endplate compression deformity at T12. ROS unreliable given cognitive status. Discussed with nursing staff. He did have elevated temperature the evening of 08/29 and morning of 08/30 at 37.9 C. He received Tylenol and temperature returned to 36.8. No fever in over 24 hours. Urine and blood cultures negative. Underwent generator change by Dr. Mejia 08/30/21. Patient appears comfortable. No acute changes overnight. Denies any pain and asks if and when he is supposed to transfer to rehab. Review of Systems Review of Systems: At least ten systems were reviewed and negative except as indicated in HPI above. Physical Exam Physical Exam: CONSTITUTIONAL: WNWD, vitals as above, generally well- appearing, elderly, hypophonic, no changes. EYES: normal conjunctivae, no scleral icterus ENT: external ear and nose normal, MMM, poor dentition NECK: trachea midline RESPIRATORY: clear to auscultation bilaterally, no crackles, rales or wheezes, normal respiratory effort CARDIOVASCULAR: regular rate and rhythm, S1 and 2 heard without murmurs, gallops or rubs, no JVD, no peripheral edema CHEST: inspection of chest revealed pacer pocket which is covered, incision not visualized. swelling from yesterday apepars to have resolved. GASTROINTESTINAL: soft, nontender, ND, no guarding MUSCULOSKELETAL: generalized weakness, head is normocephalic and atraumatic SKIN: warm and dry NEUROLOGIC: CN 2-12 grossly intact,hypophonic, normal cognition, no tremor PSYCHIATRIC: alert cooperative and answering questions appropriately. Results & Data Results & Data ([facility]) Vital Signs (Past 12 Hours) Vital Signs Temp Pulse Resp BP Pulse Ox 09/03/21 08:02 36.4 C L 88 16 175/77 H 94 09/03/21 05:00 60 16 156/85 H 96 Medications Administered Current Inpatient Medications Acetaminophen (Acetaminophen 325 Mg Tab) 650 mg PO Q6H PRN PRN Reason: Fever/pain Stop: 09/26/21 19:48 Amlodipine Besylate (Amlodipine Besylate 5 Mg Tab) 5 mg PO HS FERNIE Stop: 10/01/21 20:59 Last Admin: 09/02/21 21:46 Dose: 5 mg Documented by: Aspirin (Aspirin 81 Mg Ectab) 81 mg PO DAILY FERNIE Stop: 09/30/21 08:59 Last Admin: 09/03/21 09:17 Dose: 81 mg Documented by: Atorvastatin Calcium (Atorvastatin 20 Mg Tab) 20 mg PO QPM FERNIE Stop: 09/29/21 20:59 Last Admin: 09/02/21 21:46 Dose: 20 mg Documented by: Carbidopa/Levodopa (Carbidopa/Levodopa 25/100mg Tab) 1 tab PO BID FERNIE Stop: 09/26/21 22:59 Last Admin: 09/03/21 09:17 Dose: 1 tab Documented by: Donepezil HCl (Donepezil Hcl 5 Mg Tab) 5 mg PO DAILY FERNIE Stop: 09/27/21 08:59 Last Admin: 09/03/21 09:17 Dose: 5 mg Documented by: Hydralazine HCl (Hydralazine 10 Mg Tab) 10 mg PO Q6H PRN PRN Reason: Hypertension Stop: 09/27/21 17:29 Last Admin: 09/03/21 02:09 Dose: 10 mg Documented by: Hydralazine HCl (Hydralazine Hcl 20 Mg/Ml Vial) 7.5 mg IV Q6H PRN PRN Reason: Hypertension Stop: 09/30/21 21:24 Last Admin: 09/02/21 05:49 Dose: 7.5 mg Documented by: Lorazepam (Ativan) 0.25 mg in 0.5 mls @ 0.5 mls/min IV Q4H PRN PRN Reason: Anxiety/Agitation Stop: 09/26/21 22:11 Lidocaine (Lidocaine 5% 1 Patch) 1 patch TD HS FERNIE Stop: 09/27/21 20:59 Last Admin: 09/02/21 21:45 Dose: 1 patch Documented by: Losartan Potassium (Losartan Potassium 50 Mg Tab) 50 mg PO BID FERNIE Stop: 09/29/21 16:29 Last Admin: 09/03/21 09:17 Dose: 50 mg Documented by: Metoprolol Tartrate (Metoprolol Tartrate 25 Mg Tab) 25 mg PO DAILY FERNIE Stop: 09/27/21 08:59 Last Admin: 09/03/21 09:17 Dose: 25 mg Documented by: Miscellaneous (Remove Lidoderm Patch) 1 ea N/A QAM FERNIE Stop: 09/27/21 08:59 Last Admin: 09/03/21 09:17 Dose: 1 ea Documented by: Morphine Sulfate (Morphine Sulfate 2 Mg/Ml Carp) 2 mg IV Q4H PRN PRN Reason: Pain Stop: 09/11/21 01:13 Tramadol HCl (Tramadol Hcl 50 Mg Tablet) 25 mg PO Q4H PRN PRN Reason: Pain Stop: 09/27/21 01:13 (1) Fall Encounter type: initial encounter Qualified Code(s): W19.XXXA - Unspecified fall, initial encounter (2) Rhabdomyolysis Encounter type: initial encounter Rhabdomyolysis type: traumatic Qualified Code(s): T79.6XXA - Traumatic ischemia of muscle, initial encounter (3) Left rib fracture Encounter type: initial encounter Fracture type: closed Rib fracture type: single rib Qualified Code(s): S22.32XA - Fracture of one rib, left side, initial encounter for closed fracture (4) T12 compression fracture Encounter type: initial encounter Qualified Code(s): S22.080A - Wedge compression fracture of T11-T12 vertebra, initial encounter for closed fracture
[2021-09-03] MEDS: amLODIPine BESYLATE 5 MG TAB PO SCH (20:05)
[2021-09-03] MEDS: ATORVASTATIN 20 MG TAB PO SCH (20:05)
[2021-09-03] MEDS: LIDOCAINE 5% 1 PATCH TD SCH (20:06)
[2021-09-04 06:38] LABS: Hematocrit (blood only) 38.4 % (42-52); Hemoglobin 12.7 g/dL (14.0-18.0); Mean Corpuscular Hgb Conc 33.1 g/dL (32-36); Mean Corpuscular Volume 93.7 fL (80-100); Mean Platelet Volume 10.7 fL (7.4-10.4); Platelet Count 252 K/uL (130-400); RDW Coefficient of Variation 13.6 % (11.5-14.5); White Blood Count 7.96 K/uL (4.8-10.8)
[2021-09-04 07:09] LABS: BUN Creatinine Ratio 24.7 (10-20); Calcium 8.3 mg/dl (8.5-10.1); Creatinine Clr Calc Pharmacy 71.2 ml/min; Est GFR (African American) 81.2 ml/min; Potassium 3.4 mmol/L (3.5-5.1)
[2021-09-04 07:10] LABS: Magnesium 2.2 mg/dl (1.8-2.4)
[2021-09-04] MEDS ORDERED: POTASSIUM CHLORIDE CRTAB 20 MEQ TABCR PO ONE (07:48)
[2021-09-04] MEDS: DONEPEZIL HCL 5 MG TAB PO SCH (09:23)
[2021-09-04] MEDS: CARBIDOPA/LEVODOPA 25/100MG TAB PO SCH ×2 (09:23→20:52)
[2021-09-04] MEDS: LOSARTAN POTASSIUM 50 MG TAB PO SCH ×2 (09:23→20:52)
[2021-09-04] MEDS: METOPROLOL TARTRATE 25 MG TAB PO SCH (09:23)
[2021-09-04] MEDS: ASPIRIN 81 MG ECTAB PO SCH (09:23)
--- NOTE | 2021-09-04 15:03 | Hospitalist Progress Note ---
Date of Service September 04, 2021 Assessment & Plan (1) Fall: (2) Weakness: (3) Pacemaker: (4) Rhabdomyolysis: (5) Left rib fracture: (6) T12 compression fracture: (7) Parkinson's disease: (8) Lewy body dementia: (9) CAD (coronary artery disease): (10) DVT prophylaxis: Plan: This is a 85-year-old male who has significant past medical history of Parkinson's disease, Lewy body dementia, CAD with history of CABG, pacemaker placement, severe aortic stenosis status post AVR, history of aortic aneurysm status post repair, PAF, hypertension, acquired hemolytic anemia who presents to ED after sustaining a fall 3 days prior to arrival as well as a fall on day of admission. He further had increased weakness and inability to care for self and therefore was brought in for evaluation. Patient was found to have rhabdomyolysis, left fourth rib fracture, small hemothorax and minimal acute superior endplate compression deformity at T12. In ED he received IV fluid and IV Tylenol. Fall Weakness Rhabdomyolysis -CK resolved to normal, awaiting SNF placement. Elevated temperature -T max 37.9, elevated temp x 2 on schedule Tylenol last week. -No superimposed bacterial infection. Off abx. Left Posterior 4th rib fracture Trace hemothorax -conservative tx,encoaurge IS, pain control methods as needed-currently lidocaine patch and PRN tylenol Mild acute superior endplate compression fracture of T 12 -conservative tx, pain control as above. Parkinson disease Lewey body dementia -continue sinemet, aricept -mood stable, no agitation CAD Hx of CABG PAF Severe s/p AVR -[id number] 3 - not anticoagulated 2/2 to age, falls -Planned Pacemaker generator replacement 08/30, local wound care. Will reach out to cardiology for wound care instructions and schedule for next pacer check. -continue asa, statin, metoprolol HTN urgency -Continue metoprolol tartrate 25mg daily -Started on losartan 50mg daily on 08/29, increased to BID. BPs remain elevated and amlodipine 5 mg at bedtime was started 09/01 -Hydralazine PRN -BP 135/71 today Hematuria -Noted in villasenor bag, per nursing staff pt tugging at cath which resulted in blood in urine -this has resolved and urinary catheter has been removed. DVT ppx: SCD/TEDS for now in setting of trace hemothorax, fall risk and age Dispo: MedSurg. Planning for [facility], awaiting bed. Noted that patient's travel to [place] today. PCP: Dr. Claribel Gaines DNR/DNI Admission and Anticipated Discharge Date Admission Date: August 27, 2021 Supervising Physician Co-Signing Physician Notes I have seen and examined the patient and have discussed the case with the provider above. I agree with the assessment and plan as stated. My physical exam reflects that above. Cont plan as above. Awaiting placement in SNF. DO [place] Subjective This is a 85-year-old male who has significant past medical history of Parkinson's disease, Lewy body dementia, CAD with history of CABG, pacemaker placement, severe aortic stenosis status post AVR, history of aortic aneurysm status post repair, PAF, hypertension, acquired hemolytic anemia who presents to ED after sustaining a fall 3 days prior to arrival as well as a fall on day of admission. He further had increased weakness and inability to care for self and therefore was brought in for evaluation. Patient was found to have rhabdomyolysis, left fourth rib fracture, small hemothorax and minimal acute superior endplate compression deformity at T12. Underwent planned generator change by Dr. Mejia 08/30/21. Patient seen and examined. Sitting in bed, having breakfast. Offers no complaints. Asked when he is being transferred to rehab. Physical Exam Constitutional: WD/WN, vitals as above no acute distress Respiratory: normal respiratory effort, lungs clear to auscultation Cardiovascular: Rate/Rhythm: regular rate and regular rhythm Vessels: normal peripheral pulses Extremities: no edema Chest (Breasts): Chest: + pacemaker (left chest, dressing and steri strips CDI) Gastrointestinal (Abdomen): Percussion/Palpation: abdomen soft; abdomen nontender Skin: no rashes, warm and dry Neurologic: no focal motor deficits Speech / Cognition: + abnormal speech (hypophonic) Psychiatric: Orientation: alert, oriented to person and oriented to place; + not oriented to time Affect: + flat affect Insight: + limited insight Results & Data Results & Data ([place]) Vital Signs (Past 12 Hours) Vital Signs Temp Pulse Resp BP 09/04/21 07:11 36.4 C L 60 16 135/71 Laboratory Results Short CBC 09/04/21 Range/Units 06:21 WBC 7.96 (4.8-10.8) K/uL Hgb 12.7 L (14.0-18.0) g/dL Hct 38.4 L (42-52) % Plt Count 252 (130-400) K/uL [facility] 09/04/21 06:21 Sodium 142 Potassium 3.4 L Chloride 110 H Carbon Dioxide 26 BUN 24 H Creatinine 0.98 Glucose 110 H Calcium 8.3 L (1) Left rib fracture Encounter type: initial encounter Fracture type: closed Rib fracture type: single rib Qualified Code(s): S22.32XA - Fracture of one rib, left side, initial encounter for closed fracture (2) T12 compression fracture Encounter type: initial encounter Qualified Code(s): S22.080A - Wedge compression fracture of T11-T12 vertebra, initial encounter for closed fracture (3) Rhabdomyolysis Encounter type: initial encounter Rhabdomyolysis type: traumatic Qualified Code(s): T79.6XXA - Traumatic ischemia of muscle, initial encounter (4) Fall Encounter type: initial encounter Qualified Code(s): W19.XXXA - Unspecified fall, initial encounter
[2021-09-04] MEDS: amLODIPine BESYLATE 5 MG TAB PO SCH (20:52)
[2021-09-04] MEDS: LIDOCAINE 5% 1 PATCH TD SCH (20:52)
[2021-09-04] MEDS: ATORVASTATIN 20 MG TAB PO SCH (20:52)
[2021-09-05 07:18] LABS: BUN Creatinine Ratio 24.3 (10-20); Calcium 8.7 mg/dl (8.5-10.1); Creatinine Clr Calc Pharmacy 70.5 ml/min; Est GFR (African American) 80.2 ml/min; Est GFR (Non-African American) 69.2 ml/min; Potassium 3.9 mmol/L (3.5-5.1)
[2021-09-05] MEDS: METOPROLOL TARTRATE 25 MG TAB PO SCH (09:12)
[2021-09-05] MEDS: DONEPEZIL HCL 5 MG TAB PO SCH (09:12)
[2021-09-05] MEDS: CARBIDOPA/LEVODOPA 25/100MG TAB PO SCH ×2 (09:12→21:12)
[2021-09-05] MEDS: LOSARTAN POTASSIUM 50 MG TAB PO SCH ×2 (09:12→21:12)
[2021-09-05] MEDS: ASPIRIN 81 MG ECTAB PO SCH (09:13)
--- NOTE | 2021-09-05 11:45 | Hospitalist Progress Note ---
Date of Service September 05, 2021 Assessment & Plan (1) Fall: (2) Weakness: (3) Pacemaker: (4) Rhabdomyolysis: (5) Left rib fracture: (6) T12 compression fracture: (7) Parkinson's disease: (8) Lewy body dementia: (9) CAD (coronary artery disease): (10) DVT prophylaxis: Plan: This is a 85-year-old male who has significant past medical history of Parkinson's disease, Lewy body dementia, CAD with history of CABG, pacemaker placement, severe aortic stenosis status post AVR, history of aortic aneurysm status post repair, PAF, hypertension, acquired hemolytic anemia who presents to ED after sustaining a fall 3 days prior to arrival as well as a fall on day of admission. He further had increased weakness and inability to care for self and therefore was brought in for evaluation. Patient was found to have rhabdomyolysis, left fourth rib fracture, small hemothorax and minimal acute superior endplate compression deformity at T12. In ED he received IV fluid and IV Tylenol. Fall Weakness Rhabdomyolysis -CK resolved to normal, awaiting SNF placement. Elevated temperature -T max 37.9, elevated temp x 2 on schedule Tylenol last week. -No superimposed bacterial infection. Off abx. Left Posterior 4th rib fracture Trace hemothorax -conservative tx,encoaurge IS, pain control methods as needed-currently lidocaine patch and PRN tylenol Mild acute superior endplate compression fracture of T 12 -conservative tx, pain control as above. Parkinson disease Lewey body dementia -continue sinemet, aricept -mood stable, no agitation CAD Hx of CABG PAF Severe s/p AVR -[id number] 3 - not anticoagulated 2/2 to age, falls -Planned Pacemaker generator replacement 08/30, local wound care. Dr. Mejia requesting picture of pacer wound to be sent via [employer]. She will arrange for rep to do pacer check while still in the hospital. Routine cardiology follow up in 3 months with device check at that time. -continue asa, statin, metoprolol HTN urgency -Continue metoprolol tartrate 25mg daily -Started on losartan 50mg daily on 08/29, increased to BID. BPs remained elevated and amlodipine 5 mg at bedtime was started 09/01 -Hydralazine PRN -BP 177/87 this AM. Would not aggressively treat as there may be some component of white coat HTN. Hematuria -Noted in villasenor bag, per nursing staff pt tugging at cath which resulted in blood in urine -this has resolved and urinary catheter has been removed. DVT ppx: SCD/TEDS for now in setting of trace hemothorax, fall risk and age Dispo: MedSurg. Stable for discharge to rehab. Planning for [facility], awaiting bed. Admission and Anticipated Discharge Date Admission Date: August 27, 2021 Supervising Physician Co-Signing Physician Notes I have seen and examined the patient and have discussed the case with the provider above. I agree with the assessment and plan as stated. My physical exam reflects that above. Cont plan as above. Awaiting placement in SNF. [place], DO Subjective This is a 85-year-old male who has significant past medical history of Parkinson's disease, Lewy body dementia, CAD with history of CABG, pacemaker placement, severe aortic stenosis status post AVR, history of aortic aneurysm status post repair, PAF, hypertension, acquired hemolytic anemia who presents to ED after sustaining a fall 3 days prior to arrival as well as a fall on day of admission. He further had increased weakness and inability to care for self and therefore was brought in for evaluation. Patient was found to have rhabdomyolysis, left fourth rib fracture, small hemothorax and minimal acute superior endplate compression deformity at T12. Underwent planned generator change by Dr. Mejia 08/30/21. Patient seen and examined. Sitting in bed, having breakfast. Offers no complaints. Physical Exam Constitutional: WD/WN, vitals as above Respiratory: normal respiratory effort, lungs clear to auscultation Cardiovascular: Rate/Rhythm: regular rate and regular rhythm Vessels: normal peripheral pulses Extremities: no edema Chest (Breasts): Chest: + pacemaker (left chest, steri strips CDI) Gastrointestinal (Abdomen): Percussion/Palpation: abdomen soft; abdomen nontender Skin: no rashes, warm and dry Neurologic: no focal motor deficits Speech / Cognition: + abnormal speech (hypophonic) Psychiatric: Orientation: alert and oriented to person; + not oriented to place and + not oriented to time Affect: + flat affect Results & Data Results & Data ([facility]) Vital Signs (Past 12 Hours) Vital Signs Temp Pulse Resp BP Pulse Ox 09/05/21 07:30 36.9 C 64 18 177/87 H 95 Laboratory Results BMP 09/05/21 06:40 Sodium 141 Potassium 3.9 Chloride 110 H Carbon Dioxide 25 BUN 24 H Creatinine 0.99 Glucose 109 H Calcium 8.7 (1) Left rib fracture Encounter type: initial encounter Fracture type: closed Rib fracture type: single rib Qualified Code(s): S22.32XA - Fracture of one rib, left side, initial encounter for closed fracture (2) T12 compression fracture Encounter type: initial encounter Qualified Code(s): S22.080A - Wedge compression fracture of T11-T12 vertebra, initial encounter for closed fracture (3) Rhabdomyolysis Encounter type: initial encounter Rhabdomyolysis type: traumatic Qualified Code(s): T79.6XXA - Traumatic ischemia of muscle, initial encounter (4) Fall Encounter type: initial encounter Qualified Code(s): W19.XXXA - Unspecified fall, initial encounter
[2021-09-05] MEDS: amLODIPine BESYLATE 5 MG TAB PO SCH (21:11)
[2021-09-05] MEDS: ATORVASTATIN 20 MG TAB PO SCH (21:11)
[2021-09-05] MEDS: LIDOCAINE 5% 1 PATCH TD SCH (21:12)
[2021-09-06] MEDS: CARBIDOPA/LEVODOPA 25/100MG TAB PO SCH ×2 (09:14→20:21)
[2021-09-06] MEDS: ASPIRIN 81 MG ECTAB PO SCH (09:14)
[2021-09-06] MEDS: LOSARTAN POTASSIUM 50 MG TAB PO SCH ×2 (09:15→20:21)
[2021-09-06] MEDS: METOPROLOL TARTRATE 25 MG TAB PO SCH (09:15)
[2021-09-06] MEDS: DONEPEZIL HCL 5 MG TAB PO SCH (09:15)
--- NOTE | 2021-09-06 13:22 | Hospitalist Progress Note ---
Date of Service September 06, 2021 Assessment & Plan (1) Fall: (2) Weakness: (3) Pacemaker: (4) Rhabdomyolysis: (5) Left rib fracture: (6) T12 compression fracture: (7) Parkinson's disease: (8) Lewy body dementia: (9) CAD (coronary artery disease): (10) DVT prophylaxis: Plan: This is a 85-year-old male who has significant past medical history of Parkinson's disease, Lewy body dementia, CAD with history of CABG, pacemaker placement, severe aortic stenosis status post AVR, history of aortic aneurysm status post repair, PAF, hypertension, acquired hemolytic anemia who presents to ED after sustaining a fall 3 days prior to arrival as well as a fall on day of admission. He further had increased weakness and inability to care for self and therefore was brought in for evaluation. Patient was found to have rhabdomyolysis, left fourth rib fracture, small hemothorax and minimal acute superior endplate compression deformity at T12. In ED he received IV fluid and IV Tylenol. Fall Weakness Rhabdomyolysis -CK resolved to normal, awaiting SNF placement. Elevated temperature -T max 37.9, elevated temp x 2 on schedule Tylenol last week. -No superimposed bacterial infection. Off abx. Left Posterior 4th rib fracture Trace hemothorax -conservative tx,encoaurge IS, pain control methods as needed-currently lidocaine patch and PRN tylenol Mild acute superior endplate compression fracture of T 12 -conservative tx, pain control as above. Parkinson disease Lewey body dementia -continue sinemet, aricept -mood stable, no agitation CAD Hx of CABG PAF Severe s/p AVR -[id number] 3 - not anticoagulated 2/2 to age, falls -Planned Pacemaker generator replacement 08/30, local wound care. Dr. Mejia requesting picture of pacer wound to be sent via [employer] (done 09/05). She will arrange for rep to do pacer check while still in the hospital. Routine c ardiology follow up in 3 months with device check at that time. -Wound care instructions - keep dry until 09/12, may then shower and allow steri strips to gently come off -continue asa, statin, metoprolol HTN urgency -Continue metoprolol tartrate 25mg daily -Started on losartan 50mg daily on 08/29, increased to BID. BPs remained elevated and amlodipine 5 mg at bedtime was started 09/01 -Hydralazine PRN -AM BPs tend to be elevated. Would not aggressively treat as there may be some component of white coat HTN. Hematuria -Noted in villasenor bag, per nursing staff pt tugging at cath which resulted in blood in urine -this has resolved and urinary catheter has been removed. DVT ppx: SCD/TEDS for now in setting of trace hemothorax, fall risk and age Dispo: MedSurg. Stable for discharge to rehab. Planning for [facility], awaiting bed. Admission and Anticipated Discharge Date Admission Date: August 27, 2021 Supervising Physician Co-Signing Physician Notes I have seen and examined the patient and have discussed the case with the provider above. I agree with the assessment and plan as stated. My physical exam reflects that above. Cont plan as above. Awaiting placement in SNF. Subjective This is a 85-year-old male who has significant past medical history of Parkinson's disease, Lewy body dementia, CAD with history of CABG, pacemaker placement, severe aortic stenosis status post AVR, history of aortic aneurysm status post repair, PAF, hypertension, acquired hemolytic anemia who presents to ED after sustaining a fall 3 days prior to arrival as well as a fall on day of admission. He further had increased weakness and inability to care for self and therefore was brought in for evaluation. Patient was found to have rhabdomyolysis, left fourth rib fracture, small hemothorax and minimal acute superior endplate compression deformity at T12. Underwent planned generator change by Dr. Mejia 08/30/21. Patient seen and examined. Resting in bed, offers no complaints. Physical Exam Constitutional: WD/WN, vitals as above Respiratory: normal respiratory effort, lungs clear to auscultation Cardiovascular: Rate/Rhythm: regular rate and regular rhythm Heart Sounds: + murmur (Systolic, grade 2/6) Vessels: normal peripheral pulses Extremities: no edema Chest (Breasts): Chest: + pacemaker (Left chest, Steri-Strips intact, no surrounding erythema or drainage noted) Gastrointestinal (Abdomen): Percussion/Palpation: abdomen soft; abdomen nontender Skin: no rashes, warm and dry Neurologic: no focal motor deficits Speech / Cognition: + abnormal speech (Hypophonic) Psychiatric: Orientation: alert and oriented to person; + not oriented to place and + not oriented to time Results & Data Results & Data ([facility]) Vital Signs (Past 12 Hours) Vital Signs Temp Pulse Resp BP Pulse Ox 09/06/21 08:03 36.6 C 72 18 170/90 H 95 (1) Left rib fracture Encounter type: initial encounter Fracture type: closed Rib fracture type: single rib Qualified Code(s): S22.32XA - Fracture of one rib, left side, initial encounter for closed fracture (2) T12 compression fracture Encounter type: initial encounter Qualified Code(s): S22.080A - Wedge compression fracture of T11-T12 vertebra, initial encounter for closed fracture (3) Rhabdomyolysis Encounter type: initial encounter Rhabdomyolysis type: traumatic Qualified Code(s): T79.6XXA - Traumatic ischemia of muscle, initial encounter (4) Fall Encounter type: initial encounter Qualified Code(s): W19.XXXA - Unspecified fall, initial encounter
[2021-09-06] MEDS: amLODIPine BESYLATE 5 MG TAB PO SCH (20:20)
[2021-09-06] MEDS: ATORVASTATIN 20 MG TAB PO SCH (20:20)
[2021-09-06] MEDS: LIDOCAINE 5% 1 PATCH TD SCH (20:21)
[2021-09-07] MEDS: CARBIDOPA/LEVODOPA 25/100MG TAB PO SCH ×2 (08:59→22:05)
[2021-09-07] MEDS: DONEPEZIL HCL 5 MG TAB PO SCH (08:59)
[2021-09-07] MEDS: ASPIRIN 81 MG ECTAB PO SCH (08:59)
[2021-09-07] MEDS: LOSARTAN POTASSIUM 50 MG TAB PO SCH ×2 (08:59→22:05)
[2021-09-07] MEDS: METOPROLOL TARTRATE 25 MG TAB PO SCH (09:00)
--- NOTE | 2021-09-07 10:49 | Hospitalist Progress Note ---
Date of Service September 07, 2021 Assessment & Plan (1) Fall: (2) Weakness: (3) Pacemaker: (4) Rhabdomyolysis: (5) Left rib fracture: (6) T12 compression fracture: (7) Parkinson's disease: (8) Lewy body dementia: (9) CAD (coronary artery disease): (10) DVT prophylaxis: Plan: This is a 85-year-old male who has significant past medical history of Parkinson's disease, Lewy body dementia, CAD with history of CABG, pacemaker placement, severe aortic stenosis status post AVR, history of aortic aneurysm status post repair, PAF, hypertension, acquired hemolytic anemia who presents to ED after sustaining a fall 3 days prior to arrival as well as a fall on day of admission. He further had increased weakness and inability to care for self and therefore was brought in for evaluation. Patient was found to have rhabdomyolysis, left fourth rib fracture, small hemothorax and minimal acute superior endplate compression deformity at T12. In ED he received IV fluid and IV Tylenol. Fall Weakness Rhabdomyolysis -CK resolved to normal, awaiting SNF placement Elevated temperature -T max 37.9, elevated temp x 2 on schedule Tylenol last week -No superimposed bacterial infection. Off abx Left Posterior 4th rib fracture Trace hemothorax -conservative tx, encourage IS, pain control methods as needed-currently lidocaine patch and PRN tylenol Mild acute superior endplate compression fracture of T 12 -conservative tx, pain control as above. Parkinson disease Lewy body dementia -continue sinemet, aricept -mood stable, no agitation CAD Hx of CABG PAF Severe s/p AVR -[id number] 3 - not anticoagulated 2/2 to age, falls -Planned Pacemaker generator replacement 08/30, local wound care. Dr. Mejia requesting picture of pacer wound to be sent via [employer] (done 09/05). She will arrange for rep to do pacer check while still in the hospital. Routine card iology follow up in 3 months with device check at that time. -Wound care instructions - keep dry until 09/12, may then shower and allow steri strips to gently come off -continue asa, statin, metoprolol Hypertension -Continue metoprolol tartrate 25mg daily -Started on losartan 50mg daily on 08/29, increased to BID. BPs remained elevated and amlodipine 5 mg at bedtime was started 09/01 -Hydralazine PRN -AM BPs tend to be elevated. Would not aggressively treat as there may be some component of white coat HTN. Hematuria -Noted in villasenor bag, per nursing staff pt tugging at cath which resulted in blood in urine -this has resolved and urinary catheter has been removed. DVT ppx: SCD/TEDS for now in setting of trace hemothorax, fall risk and age Dispo: MedSurg. Stable for discharge to rehab. Planning for [facility], awaiting bed. Admission and Anticipated Discharge Date Admission Date: August 27, 2021 Supervising Physician Co-Signing Physician Notes I have seen and examined the patient and have discussed the case with the provider above. I agree with the assessment and plan as stated. My physical exam reflects that above. Cont plan as above. Awaiting placement in SNF. Subjective This is a 85-year-old male who has significant past medical history of Parkinson's disease, Lewy body dementia, CAD with history of CABG, pacemaker placement, severe aortic stenosis status post AVR, history of aortic aneurysm status post repair, PAF, hypertension, acquired hemolytic anemia who presents to ED after sustaining a fall 3 days prior to arrival as well as a fall on day of admission. He further had increased weakness and inability to care for self and therefore was brought in for evaluation. Patient was found to have rhabdomyolysis, left fourth rib fracture, small hemothorax and minimal acute superior endplate compression deformity at T12. Underwent planned generator change by Dr. Mejia 08/30/21. Patient seen and examined in 319-1. Sitting up in bedside chair eating breakfast. Offers no complaints. Review of Systems Review of Systems: Unobtainable due to cognitive status Physical Exam Physical Exam: Gen: WD/WN, elderly, male, demented, sitting in bedside chair, NAD, A&O to self only HEENT: Normocephalic, atraumatic, conjunctivae moist, sclerae anicteric Lung: Clear to Auscultation bilaterally, no wheezes/rales/rhonchi Heart: Regular rate, regular rhythm, +systolic murmur, no rubs or gallops, pacer site on L anterior chest wall c/d/i Abdomen: Soft, NT, ND +BS x 4 Extremities: No edema Skin: Warm, no rash Results & Data Results & Data ([facility]) Vital Signs (Past 12 Hours) Vital Signs Temp Pulse Resp BP BP Pulse Ox 09/07/21 08:57 66 124/73 09/07/21 07:33 36.3 C L 62 17 156/84 H 94 (1) Left rib fracture Encounter type: initial encounter Fracture type: closed Rib fracture type: single rib Qualified Code(s): S22.32XA - Fracture of one rib, left side, initial encounter for closed fracture (2) T12 compression fracture Encounter type: initial encounter Qualified Code(s): S22.080A - Wedge compression fracture of T11-T12 vertebra, initial encounter for closed fracture (3) Rhabdomyolysis Encounter type: initial encounter Rhabdomyolysis type: traumatic Qualified Code(s): T79.6XXA - Traumatic ischemia of muscle, initial encounter (4) Fall Encounter type: initial encounter Qualified Code(s): W19.XXXA - Unspecified fall, initial encounter
[2021-09-07] MEDS: ATORVASTATIN 20 MG TAB PO SCH (22:05)
[2021-09-07] MEDS: LIDOCAINE 5% 1 PATCH TD SCH (22:05)
[2021-09-07] MEDS: amLODIPine BESYLATE 5 MG TAB PO SCH (22:05)
[2021-09-08] MEDS: CARBIDOPA/LEVODOPA 25/100MG TAB PO SCH ×2 (08:09→20:53)
[2021-09-08] MEDS: DONEPEZIL HCL 5 MG TAB PO SCH (08:09)
[2021-09-08] MEDS: ASPIRIN 81 MG ECTAB PO SCH (08:09)
[2021-09-08] MEDS: METOPROLOL TARTRATE 25 MG TAB PO SCH (08:10)
[2021-09-08] MEDS: LOSARTAN POTASSIUM 50 MG TAB PO SCH ×2 (08:10→20:54)
--- NOTE | 2021-09-08 09:26 | Hospitalist Progress Note ---
Date of Service September 08, 2021 Assessment & Plan (1) Fall: (2) Weakness: (3) Pacemaker: (4) Rhabdomyolysis: (5) Left rib fracture: (6) T12 compression fracture: (7) Parkinson's disease: (8) Lewy body dementia: (9) CAD (coronary artery disease): (10) DVT prophylaxis: Plan: This is a 85-year-old male who has significant past medical history of Parkinson's disease, Lewy body dementia, CAD with history of CABG, pacemaker placement, severe aortic stenosis status post AVR, history of aortic aneurysm status post repair, PAF, hypertension, acquired hemolytic anemia who presents to ED after sustaining a fall 3 days prior to arrival as well as a fall on day of admission. He further had increased weakness and inability to care for self and therefore was brought in for evaluation. Patient was found to have rhabdomyolysis, left fourth rib fracture, small hemothorax and minimal acute superior endplate compression deformity at T12. In ED he received IV fluid and IV Tylenol. Fall Weakness Rhabdomyolysis -CK resolved to normal, awaiting SNF placement Elevated temperature -T max 37.9, elevated temp x 2 on schedule Tylenol last week -No superimposed bacterial infection. Off abx Left Posterior 4th rib fracture Trace hemothorax -conservative tx, encourage IS, pain control methods as needed-currently lidocaine patch and PRN tylenol Mild acute superior endplate compression fracture of T 12 -conservative tx, pain control as above Parkinson disease Lewy body dementia -continue sinemet, aricept -mood stable, no agitation CAD Hx of CABG PAF Severe s/p AVR -[id number] 3 - not anticoagulated 2/2 to age, falls -Planned Pacemaker generator replacement 08/30, local wound care. Dr. Mejia requesting picture of pacer wound to be sent via [employer] (done 09/05). She will arrange for rep to do pacer check while still in the hospital. Routine card iology follow up in 3 months with device check at that time. -Wound care instructions - keep dry until 09/12, may then shower and allow steri strips to gently come off -continue asa, statin, metoprolol Hypertension -Continue metoprolol tartrate 25mg daily -Started on losartan 50mg daily on 08/29, increased to BID. BPs remained elevated and amlodipine 5 mg at bedtime was started 09/01 -Hydralazine PRN -AM BPs tend to be elevated. Would not aggressively treat as there may be some component of white coat HTN. Hematuria -Noted in villasenor bag, per nursing staff pt tugging at cath which resulted in blood in urine -this has resolved and urinary catheter has been removed. DVT ppx: SCD/TEDS for now in setting of trace hemothorax, fall risk and age Dispo: MedSurg. Stable for discharge to rehab. Planning for [facility], awaiting bed. Admission and Anticipated Discharge Date Admission Date: August 27, 2021 Supervising Physician Co-Signing Physician Notes I have seen and examined the patient and have discussed the case with the provider above. I agree with the assessment and plan as stated. My physical exam reflects that above. Cont plan as above. Awaiting placement in SNF. Subjective This is a 85-year-old male who has significant past medical history of Parkinson's disease, Lewy body dementia, CAD with history of CABG, pacemaker placement, severe aortic stenosis status post AVR, history of aortic aneurysm status post repair, PAF, hypertension, acquired hemolytic anemia who presents to ED after sustaining a fall 3 days prior to arrival as well as a fall on day of admission. He further had increased weakness and inability to care for self and therefore was brought in for evaluation. Patient was found to have rhabdomyolysis, left fourth rib fracture, small hemothorax and minimal acute superior endplate compression deformity at T12. Underwent planned generator change by Dr. Mejia 08/30/21. Patient seen and examined in 319-1. Sitting up in bedside chair eating breakfast. Offers no complaints. Review of Systems Review of Systems: Unobtainable due to cognitive status Physical Exam Physical Exam: Gen: WD/WN, elderly, male, demented, sitting up eating breakfast, NAD, A&O to self only HEENT: Normocephalic, atraumatic, conjunctivae moist, sclerae anicteric Lung: Clear to Auscultation bilaterally, no wheezes/rales/rhonchi Heart: Regular rate, regular rhythm, +systolic murmur, no rubs or gallops, pacer site on L anterior chest wall c/d/i Abdomen: Soft, NT, ND +BS x 4 Extremities: No edema Skin: Warm, no rash Results & Data Results & Data ([facility]) Vital Signs (Past 12 Hours) Vital Signs Temp Pulse Pulse Resp BP Pulse Ox 09/08/21 07:41 36.8 C 60 20 145/57 H 96 09/07/21 22:13 36.6 C 67 18 150/80 H 98 (1) Left rib fracture Encounter type: initial encounter Fracture type: closed Rib fracture type: single rib Qualified Code(s): S22.32XA - Fracture of one rib, left side, initial encounter for closed fracture (2) T12 compression fracture Encounter type: initial encounter Qualified Code(s): S22.080A - Wedge compression fracture of T11-T12 vertebra, initial encounter for closed fracture (3) Rhabdomyolysis Encounter type: initial encounter Rhabdomyolysis type: traumatic Qualified Code(s): T79.6XXA - Traumatic ischemia of muscle, initial encounter (4) Fall Encounter type: initial encounter Qualified Code(s): W19.XXXA - Unspecified fall, initial encounter
[2021-09-08] MEDS: amLODIPine BESYLATE 5 MG TAB PO SCH (20:53)
[2021-09-08] MEDS: ATORVASTATIN 20 MG TAB PO SCH (20:54)
[2021-09-08] MEDS: LIDOCAINE 5% 1 PATCH TD SCH (20:55)
[2021-09-09] MEDS: ASPIRIN 81 MG ECTAB PO SCH (10:12)
[2021-09-09] MEDS: CARBIDOPA/LEVODOPA 25/100MG TAB PO SCH ×2 (10:12→20:00)
[2021-09-09] MEDS: LOSARTAN POTASSIUM 50 MG TAB PO SCH ×2 (10:12→19:58)
[2021-09-09] MEDS: DONEPEZIL HCL 5 MG TAB PO SCH (10:12)
[2021-09-09] MEDS: METOPROLOL TARTRATE 25 MG TAB PO SCH (10:15)
[2021-09-09] MEDS: HEPARIN SOD 5,000 UNIT/0.5 ML VIAL SQ SCH ×2 (11:14→20:00)
--- NOTE | 2021-09-09 17:50 | Hospitalist Progress Note ---
Date of Service September 09, 2021 Assessment & Plan (1) Fall: (2) Weakness: (3) Pacemaker: (4) Rhabdomyolysis: (5) Left rib fracture: (6) T12 compression fracture: (7) Parkinson's disease: (8) Lewy body dementia: (9) CAD (coronary artery disease): (10) DVT prophylaxis: Plan: This is a 85-year-old male who has significant past medical history of Parkinson's disease, Lewy body dementia, CAD with history of CABG, pacemaker placement, severe aortic stenosis status post AVR, history of aortic aneurysm status post repair, PAF, hypertension, acquired hemolytic anemia who presents to ED after sustaining a fall 3 days prior to arrival as well as a fall on day of admission. He further had increased weakness and inability to care for self and therefore was brought in for evaluation. Patient was found to have rhabdomyolysis, left fourth rib fracture, small hemothorax and minimal acute superior endplate compression deformity at T12. In ED he received IV fluid and IV Tylenol. Fall Weakness Rhabdomyolysis -CK resolved to normal, awaiting SNF placement -OOB every 3-4 hours. Elevated temperature -T max 37.9, elevated temp x 2 on schedule Tylenol last week -No superimposed bacterial infection. Off abx Left Posterior 4th rib fracture Trace hemothorax -conservative tx, encourage IS, pain control methods as needed-currently lidocaine patch and PRN tylenol Mild acute superior endplate compression fracture of T 12 -conservative tx, pain control as above Parkinson disease Lewy body dementia -continue sinemet, aricept -mood stable, no agitation CAD Hx of CABG PAF Severe s/p AVR -[id number] 3 - not anticoagulated 2/2 to age, falls -Planned Pacemaker generator replacement 08/30, local wound care. Dr. Mejia requesting picture of pacer wound to be sent via [employer] (done 09/05). She will arrange for rep to do pacer check while still in the hospital. Routine cardiology follow up in 3 months with device check at that time. -Wound care instructions - keep dry until 09/12, may then shower and allow steri strips to gently come off -continue asa, statin, metoprolol Hypertension -Continue metoprolol tartrate 25mg daily -Started on losartan 50mg daily on 08/29, increased to BID. BPs remained elevated and amlodipine 5 mg at bedtime was started 09/01 -Hydralazine PRN -AM BPs tend to be elevated. Would not aggressively treat as there may be some component of white coat HTN. Hematuria -Noted in villasenor bag, per nursing staff pt tugging at cath which resulted in blood in urine -this has resolved and urinary catheter has been removed. DVT ppx: SCD/TEDS for now in setting of trace hemothorax, fall risk and age Dispo: MedSurg. Stable for discharge to rehab. Planning for [facility], awaiting bed. Admission and Anticipated Discharge Date Admission Date: August 27, 2021 Subjective Patient is lying in bed, on room air, NAD, no acute events overnight. Patient alert to self. Patient denies any discomfort or pain. Other ROS were limited due to patient's hard of hearing and mental condition. Physical Exam Physical Exam: GENERAL: Alert to self. NAD, on RA. Demented elderly male. HEENT: No pallor, no icterus. Pupils equal, round and reactive to light. Oral mucosa moist. NECK: No JVD, no neck masses. HEART: S1 and S2 heard. Regular rate and rhythm. No murmur, no gallop. RESPIRATORY SYSTEM: Normal AP diameter. No accessory muscle use. No wheezing, no crackles. ABDOMEN: Soft, bowel sounds present, nontender, no distention. CENTRAL NERVOUS SYSTEM: No facial droop. Speech is clear. Obeys simple commands. Moves extremities. EXTREMITIES: No edema, no erythema seen. Results & Data Results & Data ([facility]) Vital Signs (Past 12 Hours) Vital Signs Temp Pulse Resp BP Pulse Ox 09/09/21 15:52 36.6 C 60 20 122/68 94 09/09/21 10:14 59 L 109/68 09/09/21 06:30 36.6 C 61 16 123/72 95 (1) Fall Encounter type: initial encounter Qualified Code(s): W19.XXXA - Unspecified fall, initial encounter (2) Rhabdomyolysis Encounter type: initial encounter Rhabdomyolysis type: traumatic Qualified Code(s): T79.6XXA - Traumatic ischemia of muscle, initial encounter (3) Left rib fracture Encounter type: initial encounter Fracture type: closed Rib fracture type: single rib Qualified Code(s): S22.32XA - Fracture of one rib, left side, initial encounter for closed fracture (4) T12 compression fracture Encounter type: initial encounter Qualified Code(s): S22.080A - Wedge compre ssion fracture of T11-T12 vertebra, initial encounter for closed fracture
[2021-09-09] MEDS: ATORVASTATIN 20 MG TAB PO SCH (20:00)
[2021-09-09] MEDS: LIDOCAINE 5% 1 PATCH TD SCH (20:01)
[2021-09-09] MEDS: amLODIPine BESYLATE 5 MG TAB PO SCH (20:01)
[2021-09-10 07:12] LABS: Hematocrit (blood only) 37.8 % (42-52); Hemoglobin 12.5 g/dL (14.0-18.0); Mean Corpuscular Hemoglobin 30.9 pg (25-34); Mean Corpuscular Hgb Conc 33.1 g/dL (32-36); Mean Corpuscular Volume 93.6 fL (80-100); Mean Platelet Volume 10.9 fL (7.4-10.4); Platelet Count 326 K/uL (130-400); RDW Coefficient of Variation 13.4 % (11.5-14.5); RDW Standard Deviation 46.1 fL (36.4-46.3); Red Blood Count 4.04 M/uL (4.7-6.1); White Blood Count 15.91 K/uL (4.8-10.8)
[2021-09-10] MEDS: HEPARIN SOD 5,000 UNIT/0.5 ML VIAL SQ SCH ×2 (09:38→20:40)
[2021-09-10] MEDS: LOSARTAN POTASSIUM 50 MG TAB PO SCH ×2 (09:41→20:40)
[2021-09-10] MEDS: CARBIDOPA/LEVODOPA 25/100MG TAB PO SCH ×2 (09:41→20:40)
[2021-09-10] MEDS: ASPIRIN 81 MG ECTAB PO SCH (09:41)
[2021-09-10] MEDS: DONEPEZIL HCL 5 MG TAB PO SCH (09:41)
[2021-09-10] MEDS: METOPROLOL TARTRATE 25 MG TAB PO SCH (09:44)
--- NOTE | 2021-09-10 12:07 | XRay Report ---
XR chest 1V portable CLINICAL HISTORY: f/u cxr, r/o infection TECHNIQUE: Single frontal radiograph of the chest was obtained. Comparison: Comparison is made to chest one view 08/30/2021 FINDINGS: Redemonstration of median sternotomy wires, cardiac pacemaker, and surgical clips. Cardiomegaly is no heidy. In comparison to prior exam, right lung base airspace opacities no longer seen. No evidence of p leural effusion or pneumothorax. Degenerative changes of the right shoulder. IMPRESSION: No acute chest disease. In particular, previously noted right lung base airspace opacities are longer seen. ACT 112: Negative or not required by law. Electronically signed by: Faisal Moraes M.D. 09/10/2021 12:06 PM
[2021-09-10 13:12] LABS: Appearance Urine Turbid (Clear); Bilirubin Urine Negative (Negative); Blood Urine Negative (Negative); Color Urine Yellow; Glucose Urine UA Negative (Negative); Ketones Urine Negative (Negative); Leukocyte Esterase Urine 3+ (Negative); Nitrite Urine Negative (Negative); Protein Urine 3+ (Negative); Urobilinogen Urine Negative (Negative); pH Urine >= 9.0 (4.5-7.5)
[2021-09-10 13:37] LABS: Triple Phosphate Crystal Urine Present (None Prsent)
[2021-09-10 13:38] LABS: Epithelial Cell Urine 0-5 /lpf (0-5); RBC Urine 0-4 /hpf (0-4)
[2021-09-10 13:39] LABS: Bacteria Urine 4+ (Negative)
--- NOTE | 2021-09-10 18:54 | Hospitalist Progress Note ---
Date of Service September 10, 2021 Assessment & Plan (1) Fall: (2) Weakness: (3) Pacemaker: (4) Rhabdomyolysis: (5) Left rib fracture: (6) T12 compression fracture: (7) Parkinson's disease: (8) Lewy body dementia: (9) CAD (coronary artery disease): (10) DVT prophylaxis: Plan: This is a 85-year-old male who has significant past medical history of Parkinson's disease, Lewy body dementia, CAD with history of CABG, pacemaker placement, severe aortic stenosis status post AVR, history of aortic aneurysm status post repair, PAF, hypertension, acquired hemolytic anemia who presents to ED after sustaining a fall 3 days prior to arrival as well as a fall on day of admission. He further had increased weakness and inability to care for self and therefore was brought in for evaluation. Patient was found to have rhabdomyolysis, left fourth rib fracture, small hemothorax and minimal acute superior endplate compression deformity at T12. In ED he received IV fluid and IV Tylenol. Fall Weakness Rhabdomyolysis -CK resolved to normal, awaiting SNF placement -OOB every 3-4 hours. Elevated temperature Leucocytosis -T max 37.9, elevated temp x 2 on schedule Tylenol last week -No superimposed bacterial infection. Off abx -09/10 Patient's WBC was elevated, patient denies any discomfort, chest x-ray normal, procalcitonin negative, suspect any infectious process, will continue to monitor CBC. Left Posterior 4th rib fracture Trace hemothorax -conservative tx, encourage IS, pain control methods as needed-currently lidocaine patch and PRN tylenol Mild acute superior endplate compression fracture of T 12 -conservative tx, pain control as above Parkinson disease Lewy body dementia -continue sinemet, aricept -mood stable, no agitation CAD Hx of CABG PAF Severe s/p AVR -[id number] 3 - not anticoagulated 2/2 to age, falls -Planned Pacemaker generator replacement 08/30, local wound care. Dr. Mejia requesting picture of pacer wound to be sent via [employer] (done 09/05). She will arrange for rep to do pacer check while still in the hospital. Routine cardiology follow up in 3 months with device check at that time. -Wound care instructions - keep dry until 09/12, may then shower and allow steri strips to gently come off -continue asa, statin, metoprolol Hypertension -Continue metoprolol tartrate 25mg daily -Started on losartan 50mg daily on 08/29, increased to BID. BPs remained elevated and amlodipine 5 mg at bedtime was started 09/01 -Hydralazine PRN -AM BPs tend to be elevated. Would not aggressively treat as there may be some component of white coat HTN. Hematuria -Noted in villasenor bag, per nursing staff pt tugging at cath which resulted in blood in urine -this has resolved and urinary catheter has been removed. DVT ppx: SCD/TEDS for now in setting of trace hemothorax, fall risk and age Dispo: MedSurg. Stable for discharge to rehab. [facility], [facility]. Admission and Anticipated Discharge Date Admission Date: August 27, 2021 Subjective Patient is lying in bed, on room air, NAD, no acute events overnight. Patient alert to self. Patient denies any discomfort or pain. Other ROS were limited due to patient's hard of hearing and mental condition. Patient's WBC was elevated, patient denies any discomfort, chest x-ray normal, procalcitonin neg ative, suspect any infectious process, will continue to monitor CBC. Physical Exam Physical Exam: GENERAL: Alert to self. NAD, on RA. Demented elderly male. HEENT: No pallor, no icterus. Pupils equal, round and reactive to light. Oral mucosa moist. NECK: No JVD, no neck masses. HEART: S1 and S2 heard. Regular rate and rhythm. No murmur, no gallop. RESPIRATORY SYSTEM: Normal AP diameter. No accessory muscle use. No wheezing, no crackles. ABDOMEN: Soft, bowel sounds present, nontender, no distention. CENTRAL NERVOUS SYSTEM: No facial droop. Speech is clear. Obeys simple commands. Moves extremities. EXTREMITIES: No edema, no erythema seen. Results & Data Results & Data ([facility]) Vital Signs (Past 12 Hours) Vital Signs Temp Pulse Pulse Resp BP Pulse Ox 09/10/21 16:15 36.6 C 60 20 114/71 97 09/10/21 09:42 59 L 100/54 L 09/10/21 07:17 36.7 C 60 18 101/50 L 92 (1) Fall Encounter type: initial encounter Qualified Code(s): W19.XXXA - Unspecified fall, initial encounter (2) Rhabdomyolysis Encounter type: initial encounter Rhabdomyolysis type: traumatic Qualified Code(s): T79.6XXA - Traumatic ischemia of muscle, initial encounter (3) Left rib fracture Encounter type: initial encounter Fracture type: closed Rib fracture type: single rib Qualified Code(s): S22.32XA - Fracture of one rib, left side, initial encounter for closed fracture (4) T12 compression fracture Encounter type: initial encounter Qualified Code(s): S22.080A - Wedge compression fracture of T11-T12 vertebra, initial encounter for closed fracture
[2021-09-10] MEDS: LIDOCAINE 5% 1 PATCH TD SCH (20:34)
[2021-09-10] MEDS: amLODIPine BESYLATE 5 MG TAB PO SCH (20:39)
[2021-09-10] MEDS: ATORVASTATIN 20 MG TAB PO SCH (20:39)
[2021-09-11 05:57] LABS: Hemoglobin 11.6 g/dL (14.0-18.0); Mean Corpuscular Hemoglobin 30.6 pg (25-34); Mean Corpuscular Hgb Conc 33.1 g/dL (32-36); Mean Corpuscular Volume 92.3 fL (80-100); Mean Platelet Volume 10.5 fL (7.4-10.4); Platelet Count 310 K/uL (130-400); RDW Coefficient of Variation 13.5 % (11.5-14.5); RDW Standard Deviation 45.4 fL (36.4-46.3); Red Blood Count 3.79 M/uL (4.7-6.1); White Blood Count 7.95 K/uL (4.8-10.8)
[2021-09-11] MEDS ORDERED: cefTRIAXone SODIUM 2,000 MG in DEXTROSE 5% 50 ML IV ONE (08:00)
[2021-09-11] MEDS: DONEPEZIL HCL 5 MG TAB PO SCH (09:29)
[2021-09-11] MEDS: HEPARIN SOD 5,000 UNIT/0.5 ML VIAL SQ SCH (09:29)
[2021-09-11] MEDS: METOPROLOL TARTRATE 25 MG TAB PO SCH (09:29)
[2021-09-11] MEDS: ASPIRIN 81 MG ECTAB PO SCH (09:29)
[2021-09-11] MEDS: CARBIDOPA/LEVODOPA 25/100MG TAB PO SCH (09:29)
[2021-09-11] MEDS: LOSARTAN POTASSIUM 50 MG TAB PO SCH (09:29)
[2021-09-11] MEDS ORDERED: POLYETHYLENE (MIRALAX) 17 GM PACK PO SCH (09:45)
[2021-09-11] MEDS ORDERED: DOCUSATE SODIUM/SENNA 50/8.6MG TAB PO SCH (09:45)
--- NOTE | 2021-09-11 11:19 | Hospitalist Progress Note ---
Date of Service September 11, 2021 Assessment & Plan (1) Fall: (2) Weakness: (3) Pacemaker: (4) Rhabdomyolysis: (5) Left rib fracture: (6) T12 compression fracture: (7) Parkinson's disease: (8) Lewy body dementia: (9) CAD (coronary artery disease): (10) DVT prophylaxis: Plan: This is a 85-year-old male who has significant past medical history of Parkinson's disease, Lewy body dementia, CAD with history of CABG, pacemaker placement, severe aortic stenosis status post AVR, history of aortic aneurysm status post repair, PAF, hypertension, acquired hemolytic anemia who presents to ED after sustaining a fall 3 days prior to arrival as well as a fall on day of admission. He further had increased weakness and inability to care for self and therefore was brought in for evaluation. Patient was found to have rhabdomyolysis, left fourth rib fracture, small hemothorax and minimal acute superior endplate compression deformity at T12. In ED he received IV fluid and IV Tylenol. Fall Weakness Rhabdomyolysis CK resolved to normal, awaiting SNF placement OOB every 3-4 hours. continue PT/OT Elevated temperature Leucocytosis early in admission T max 37.9, elevated temp x 2 on schedule Tylenol last week No superimposed bacterial infection. Off abx, resolved 09/10 Patient's WBC was elevated, patient denies any discomfort, chest x-ray normal, procalcitonin negative UA concerning for infection, culture > 100k gram negative bacilli IV Rocephin 2g started daily, await culture and can transition to oral antibiotics no s/sx of SIRS/Sepsis Left Posterior 4th rib fracture Trace hemothorax conservative tx, encourage IS, pain control methods as needed-currently lidocaine patch and PRN tylenol Mild acute superior endplate compression fracture of T 12 conservative tx, pain control as above Parkinson disease Lewy body dementia continue sinemet, aricept mood stable, no agitation CAD Hx of CABG PAF Severe s/p AVR -[id number] 3 - not anticoagulated 2/2 to age, falls -Planned Pacemaker generator replacement 08/30, local wound care. Dr. Mejia requesting picture of pacer wound to be sent via [employer] (done 09/05). She will arrange for rep to do pacer check while still in the hospital. Routine cardiology follow up in 3 months with device check at that time. Wound care instructions - keep dry until 09/12, may then shower and allow steri strips to gently come off continue asa, statin, metoprolol Hypertension Continue metoprolol tartrate 25mg daily Started on losartan 50mg daily on 08/29, increased to BID. BPs remained elevated and amlodipine 5 mg at bedtime was started 09/01 Hydralazine PRN - which has not been used in several days Bp improving, 115/69 this a.m. caution on aggressive treatment in setting of Parkinson, elderly and concern for orthostasis Hematuria Noted in villasenor bag, per nursing staff pt tugging at cath which resulted in blood in urine this has resolved and urinary catheter has been removed. Bowel prophylaxis miralax and docusate added, hold for loose stool DVT ppx: SCD/TEDS for now in setting of trace hemothorax, fall risk and age Dispo: MedSurg. Stable for discharge to rehab. Planning for [facility], awaiting bed, urine culture pending but can send on oral antibiotics Admission and Anticipated Discharge Date Admission Date: August 27, 2021 Supervising Physician Co-Signing Physician Notes I have seen and examined the patient and have discussed the case with the prov ider above. I agree with the assessment and plan as stated. My physical exam reflects that above. Cont plan as above. Awaiting placement in SNF. Subjective Patient was seen and examined in room 319. Around house, left rib fracture, T12 compression fracture, pacemaker generator change. He is overall doing months. He offers no acute concerns. ROS limited due to underlying mental status. Chills, sweats, chest pain, shortness breath, nausea, vomiting, abdominal pain. Per nursing at bedside patient does have strong smelling urine. He also has not had a bowel movement documented in several days although last report was 2 days ago. Review of Systems Review of Systems: All systems reviewed & are unremarkable except as noted in HPI & below Physical Exam Physical Exam: Gen: WD/WN, elderly, male, demented, lying in bed, alert, answerers questions appropriately NAD, A&O to self only HEENT: Normocephalic, atraumatic, conjunctivae moist, sclerae anicteric, mucous membranes dry. Lung: Clear to Auscultation bilaterally, no wheezes/rales/rhonchi Heart: Regular rate, regular rhythm, 2/6 REYNA noted RUSB, rubs, or gallops, pacer site on LACW Abdomen: Soft, NT, ND +BS x 4 Extremities: No edema Skin: Warm, no rash, negative turgor. Results & Data Results & Data ([facility]) Vital Signs (Past 12 Hours) Vital Signs Temp Pulse Resp BP BP Pulse Ox 09/11/21 09:40 115/69 09/11/21 07:26 36.7 C 60 20 151/81 H 94 Laboratory Results Short CBC 09/11/21 Range/Units 05:34 WBC 7.95 (4.8-10.8) K/uL Hgb 11.6 L (14.0-18.0) g/dL Hct 35.0 L (42-52) % Plt Count 310 (130-400) K/uL Urine 09/10/21 Range/Units 12:30 Urine Color Yellow Urine Appearance Turbid A (Clear) Urine pH >= 9.0 H (4.5-7.5) Ur Specific [place] 1.010 (1.000-1.030) Urine Protein 3+ H (Negative) Urine Glucose (UA) Negative (Negative) Diagnostic Findings UA: > 100k gram negative bacilli Medications Administered Current Inpatient Medications Acetaminophen (Acetaminophen 325 Mg Tab) 650 mg PO Q6H PRN PRN Reason: Fever/pain Stop: 09/26/21 19:48 Amlodipine Besylate (Amlodipine Besylate 5 Mg Tab) 5 mg PO HS FERNIE Stop: 10/01/21 20:59 Last Admin: 09/10/21 20:39 Dose: 5 mg Documented by: Aspirin (Aspirin 81 Mg Ectab) 81 mg PO DAILY FERNIE Stop: 09/30/21 08:59 Last Admin: 09/11/21 09:29 Dose: 81 mg Documented by: Atorvastatin Calcium (Atorvastatin 20 Mg Tab) 20 mg PO QPM FERNIE Stop: 09/29/21 20:59 Last Admin: 09/10/21 20:39 Dose: 20 mg Documented by: Carbidopa/Levodopa (Carbidopa/Levodopa 25/100mg Tab) 1 tab PO BID FERNIE Stop: 09/26/21 22:59 Last Admin: 09/11/21 09:29 Dose: 1 tab Documented by: Donepezil HCl (Donepezil Hcl 5 Mg Tab) 5 mg PO DAILY FERNIE Stop: 09/27/21 08:59 Last Admin: 10/25/21 09:29 Dose: 5 mg Documented by: Heparin Sodium (Porcine) (Heparin Sod 5,000 Unit/0.5 Ml Vial) 5,000 units SQ Q12 FERNIE Stop: 10/09/21 09:34 Last Admin: 09/11/21 09:29 Dose: 5,000 units Documented by: Hydralazine HCl (Hydralazine 10 Mg Tab) 10 mg PO Q6H PRN PRN Reason: Hypertension Stop: 09/27/21 17:29 Last Admin: 09/03/21 02:09 Dose: 10 mg Documented by: Hydralazine HCl (Hydralazine Hcl 20 Mg/Ml Vial) 7.5 mg IV Q6H PRN PRN Reason: Hypertension Stop: 09/30/21 21:24 Last Admin: 09/02/21 05:49 Dose: 7.5 mg Documented by: Lorazepam (Ativan) 0.25 mg in 0.5 mls @ 0.5 mls/min IV Q4H PRN PRN Reason: Anxiety/Agitation Stop: 09/26/21 22:11 Last Admin: 09/03/21 22:36 Dose: 0.5 mls/min Documented by: Lidocaine (Lidocaine 5% 1 Patch) 1 patch TD HS FERNIE Stop: 09/27/21 20:59 Last Admin: 09/10/21 20:34 Dose: 1 patch Documented by: Losartan Potassium (Losartan Potassium 50 Mg Tab) 50 mg PO BID FERNIE Stop: 09/29/21 16:29 Last Admin: 09/11/21 09:29 Dose: 50 mg Documented by: Metoprolol Tartrate (Metoprolol Tartrate 25 Mg Tab) 25 mg PO DAILY FERNIE Stop: 09/27/21 08:59 Last Admin: 09/11/21 09:29 Dose: 25 mg Documented by: Miscellaneous (Remove Lidoderm Patch) 1 ea N/A QAM FERNIE Stop: 09/27/21 08:59 Last Admin: 09/11/21 09:30 Dose: 1 ea Documented by: Polyethylene Glycol (Polyethylene (Miralax) 17 Gm Pack) 17 gm PO DAILY FERNIE Stop: 10/11/21 09:44 Last Admin: 09/11/21 11:18 Dose: 17 gm Documented by: Senna/Docusate Sodium (Docusate Sodium/Senna 50/8.6mg Tab) 1 tab PO QAM FERNIE Stop: 10/11/21 09:44 Last Admin: 09/11/21 11:18 Dose: 1 tab Documented by: Tramadol HCl (Tramadol Hcl 50 Mg Tablet) 25 mg PO Q4H PRN PRN Reason: Pain Stop: 09/27/21 01:13 (1) Left rib fracture Encounter type: initial encounter Fracture type: closed Rib fracture type: single rib Qualified Code(s): S22.32XA - Fracture of one rib, left side, initial encounter for closed fracture (2) T12 compression fracture Encounter type: initial encounter Qualified Code(s): S22.080A - Wedge compression fracture of T11-T12 vertebra, initial encounter for closed fracture (3) Rhabdomyolysis Encounter type: initial encounter Rhabdomyolysis type: traumatic Qualified Code(s): T79.6XXA - Traumatic ischemia of muscle, initial encounter (4) Fall Encounter type: initial encounter Qualified Code(s): W19.XXXA - Unspecified fall, initial encounter
[2021-09-11] MEDS ORDERED: ADVANCED PROBIOTIC 1250 MG CAPSULE PO SCH (12:30)
--- NOTE | 2021-09-11 13:07 | Discharge Summary ---
Date of Service September 11, 2021 Admission HPI Per Admitting Provider History obtained from patient, family, and records. Limited history from patient secondary to dementia. Medical history significant for CAD sp CABG/stenting, aortic stenosis sp bioprosthetic AVR, TAA status post surgery, PFO as per records, SSS sp PPM not on anticoagulation secondary to bleeding, HTN, Parkinson's disease/Lewy body dementia, hemolytic anemia as per records, history of dysphagia, esophageal dysmotility as per records. Last confinement May 2021 for altered mental status. Patient discharged to [facility] rehab facility. Subsequently discharged home after a month of stay. Patient declining at home the last few months as per . Cognitive function and balance worsening. Worsening visual hallucinations. Outpatient providers and some friends have discussed finding a special home for patient. 3 days ago, patient fell down a flight of steps at the basement of his home. Patient complained of achy left-sided chest pain. No LOC as per . Patient was seen at PCPs office. Directed to the ER but patient did not comply. Patient consulted ER today because of worsening pleuritic left-sided chest pain. MEDICAL HISTORY: As above. SURGICAL HISTORY: Laser surgery of the eye, pacemaker placement, CABG, aortic aneurysm repair, aortic valve surgery. FAMILY HISTORY: Heart disease, SLE PERSONAL AND SOCIAL HISTORY: Nonsmoker, no chronic ETOH intake. 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 Lives with Admission Exam Per Admitting Provider GENERAL: Oriented to year, restless, hypophonic, no respiratory distress SKIN: Normal color, warm HEENT: [place] palpebral conjunctivae, no ptosis, dry buccal mucosa NECK : Supple, no tenderness CHEST : Decreased breath sounds, minimal left chest wall tenderness HEART : RRR, no obvious murmurs ABDOMEN: Some distention, nontender EXTREMITIES : No LE swelling/tenderness, no other conspicuous deformities noted NEUROLOGIC : Incoherent, slightly hard of hearing, no facial asymmetry, restless, gait and stance not assessed Principal Diagnosis Fall Weakness Rhabdomyolysis Left posterior fourth rib fracture Trace hemothorax Mild acute superior endplate compression deformity at T12 UTI Discharge Exam Gen: WD/WN, elderly, male, demented, lying in bed, alert, answerers questions appropriately NAD, A&O to self only HEENT: Normocephalic, atraumatic, conjunctivae moist, sclerae anicteric, mucous membranes dry. Lung: Clear to Auscultation bilaterally, no wheezes/rales/rhonchi Heart: Regular rate, regular rhythm, 2/6 REYNA noted RUSB, rubs, or gallops, pacer site on LACW Abdomen: Soft, NT, ND +BS x 4 Extremities: No edema Skin: Warm, no rash, negative turgor. Discharge Data Allergies Allergy/AdvReac Type Severity Reaction Status Date / Time No Known Allergies Allergy Verified 08/27/21 19:28 Vaccinations Consultations 08/27/21 19:04 ED Decision to Admit Stat 08/30/21 10:54 Consult Cardiology Routine Procedures Performed Operation Date: 08/30/21 15:00 Actual Procedures p Pacer Gen Change Dual - Candi Mejia DO Ordered Studies Abdomen/Pelvis CT 08/27/21 15:36 CT SCAN OF THE CHEST, ABDOMEN, AND PELVIS WITH IV CONTRAST CLINICAL HISTORY: Trauma. Fall down stairs. COMPARISON STUDY: Chest CT dated 11/02/2015. TECHNIQUE: Following the IV administration of 90 of Optiray 320, CT scan of the chest, abdomen, and pelvis was performed from the thoracic inlet to the proximal femora. Images are reviewed in the axial, sagittal, and coronal planes. IV contrast was administered without complication. A dose lowering technique was utilized adhering to the principles of ALARA. There is motion artifact, as well as streak artifact from the arms which could not be elevated above the chest or abdomen. CT DOSE: 2740.59 mGy.cm FINDINGS: CHEST: Thyroid: Imaged portions of the thyroid gland are normal in size and attenuation. Thoracic aorta: Postoperative change is noted involving the ascending thoracic aorta. There is atherosclerotic calcification of the thoracic aorta, which is normal in caliber and demonstrates standard 3-vessel arch anatomy. No dissection is seen. Pulmonary vasculature: The pulmonary trunk is normal in caliber. There are no filling defects identified in the central pulmonary vessels to indicate pulmonary embolus. Note that this examination was not protocoled for evaluation of the pulmonary arteries. Heart: A 2-lead cardiac pacemaker is present in the left chest wall. The patient is status post midline sternotomy. The heart is enlarged and without pericardial effusion. Coronary arteries are densely calcified. Lungs and pleural spaces: Trace hemothorax is seen at the left lung base. No pneumothorax is identified. The trachea and central airways are clear. Scarring/atelectasis is noted at both lung bases. There are scattered calcified granulomas. Mediastinum: There is no hematoma. Scattered subcentimeter mediastinal lymph nodes are not pathologically enlarged by size criteria. Vesta: Clear. Axillae: There is no axillary lymphadenopathy. Bony thorax: The skeletal structures are osteopenic. There is an acute left posterior 4th rib fracture. There is a minimal acute superior endplate compression fracture of T12. The remainder of the bony thorax appears intact. Degenerative change and mild hyperkyphosis are noted in the thoracic spine. Arthritic changes seen in the shoulders. No lytic or blastic lesions are identified. ABDOMEN AND PELVIS: Liver: The contrast-enhanced liver is normal in size, contour, and attenuation. There is no intra- or extrahepatic biliary ductal dilatation. The hepatic veins and portal veins are patent. Gallbladder: Unremarkable. Spleen: Normal in size and attenuation. Pancreas: Moderately atrophic and grossly unremarkable. Adrenal glands: Unremarkable. Kidneys: The contrast enhanced kidneys are atrophic and without hydronephrosis. The kidneys enhance symmetrically. There are least 2 right renal cysts which measure up to 2.6 cm. Abdominal vasculature: There is advanced atherosclerotic calcification and mild ectasia of the abdominal aorta. Bowel: Moderate fecal retention is seen throughout the colon. There is no bowel obstruction. The appendix is not visualized. Peritoneum: There is no intraperitoneal free air or abdominal ascites. Lymphadenopathy: None. Pelvic viscera: The prostate gland is markedly enlarged and heterogeneous noting median lobe hypertrophy. The bladder is decompressed. The bladder wall appears thickened and trabeculated indicating chronic outlet obstruction. Skeletal structures: The skeletal structures are osteopenic. The lumbosacral spine, bony pelvis, and proximal femora appear intact. There is [id number] lumbosacral spondylosis. No lytic or blastic lesions are seen. IMPRESSION: 1. Significantly streak and motion compromised examination. 2. There is a mild acute superior endplate compression fracture of T12. 3. There is an acute left posterior 4th rib fracture. 4. Trace hemothorax is seen at the left lung base. 5. No pneumothorax. 6. Cardiomegaly. 7. There is no evidence of solid organ injury in the abdomen or pelvis. 8. Additional findings as above. ACT 112: Negative or not required by law. Electronically signed by: Rancho Roberts M.D. 08/27/2021 6:[address] 08/27/21 15:36 CT SCAN OF THE CERVICAL SPINE CLINICAL HISTORY: Trauma. Fall down stairs. COMPARISON STUDY: CT of the cervical spine dated 08/29/2018. TECHNIQUE: CT scan of the cervical spine is performed from the skull base to the upper thoracic spine. Images are reviewed in the axial, sagittal, and coronal planes. IV contrast was not administered for this examination. A dose lowering technique was utilized adhering to the principles of ALARA. FINDINGS: Skeletal structures: The skeletal structures are osteopenic. There is no evidence of fracture or subluxation involving the cervical spine. Vertebral body height and alignment are maintained. There is straightening of the cervical lordosis. Anterior osteophytes are seen throughout. The odontoid process and lateral masses are intact. The atlantoaxial articulation is preserved noting advanced productive degenerative change. The spinous processes appear intact. There is moderate multilevel cervical spondylosis. Uncovertebral and facet arthropathy contribute to neural foraminal narrowing at several levels. Intervertebral discs: There is advanced disc space narrowing at C6-C7. Mild to moderate disc space narrowing is noted at the remaining cervical levels. Central canal: Posterior disc osteophyte complexes at C5-C6 and C6-C7 likely contribute to acquired compromise of the central canal. Soft tissues: The prevertebral and paraspinous soft tissues are within normal limits. There is atherosclerotic calcification of the carotid bulbs. Pacemaker leads are noted at the left thoracic inlet. A calcified sialolith is noted in the left parotid gland. Calvarium: The visualized calvarium at the skull base appears intact. Brain parenchyma: Partially visualized brain parenchyma at the skull base is within normal limits. Sinuses and mastoids: The visualized paranasal sinuses are clear. The mastoid air cells are well pneumatized. Lung apices: Clear as visualized. IMPRESSION: 1. There is no evidence of fracture or subluxation involving the cervical spine. 2. Osteopenia and spondylotic change as above. ACT 112: Negative or not required by law. Electronically signed by: Rancho Roberts M.D. 08/27/2021 6:[address] 08/27/21 15:36 CT SCAN OF THE CHEST, ABDOMEN, AND PELVIS WITH IV CONTRAST CLINICAL HISTORY: Trauma. Fall down stairs. COMPARISON STUDY: Chest CT dated 11/02/2015. TECHNIQUE: Following the IV administration of 90 of Optiray 320, CT scan of the chest, abdomen, and pelvis was performed from the thoracic inlet to the proximal femora. Images are reviewed in the axial, sagittal, and coronal planes. IV contrast was administered without complication. A dose lowering technique was utilized adhering to the principles of ALARA. There is motion artifact, as well as streak artifact from the arms which could not be elevated above the chest or abdomen. CT DOSE: 2740.59 mGy.cm FINDINGS: CHEST: Thyroid: Imaged portions of the thyroid gland are normal in size and attenuation. Thoracic aorta: Postoperative change is noted involving the ascending thoracic aorta. There is atherosclerotic calcification of the thoracic aorta, which is normal in caliber and demonstrates standard 3-vessel arch anatomy. No dissection is seen. Pulmonary vasculature: The pulmonary trunk is normal in caliber. There are no filling defects identified in the central pulmonary vessels to indicate pulmonary embolus. Note that this examination was not protocoled for evaluation of the pulmonary arteries. Heart: A 2-lead cardiac pacemaker is present in the left chest wall. The patient is status post midline sternotomy. The heart is enlarged and without pericardial effusion. Coronary arteries are densely calcified. Lungs and pleural spaces: Trace hemothorax is seen at the left lung base. No pneumothorax is identified. The trachea and central airways are clear. Scarring/atelectasis is noted at both lung bases. There are scattered calcified granulomas. Mediastinum: There is no hematoma. Scattered subcentimeter mediastinal lymph nodes are not pathologically enlarged by size criteria. Vesta: Clear. Axillae: There is no axillary lymphadenopathy. Bony thorax: The skeletal structures are osteopenic. There is an acute left posterior 4th rib fracture. There is a minimal acute superior endplate compression fracture of T12. The remainder of the bony thorax appears intact. Degenerative change and mild hyperkyphosis are noted in the thoracic spine. Arthritic changes seen in the shoulders. No lytic or blastic lesions are identified. ABDOMEN AND PELVIS: Liver: The contrast-enhanced liver is normal in size, contour, and attenuation. There is no intra- or extrahepatic biliary ductal dilatation. The hepatic veins and portal veins are patent. Gallbladder: Unremarkable. Spleen: Normal in size and attenuation. Pancreas: Moderately atrophic and grossly unremarkable. Adrenal glands: Unremarkable. Kidneys: The contrast enhanced kidneys are atrophic and without hydronephrosis. The kidneys enhance symmetrically. There are least 2 right renal cysts which measure up to 2.6 cm. Abdominal vasculature: There is advanced atherosclerotic calcification and mild ectasia of the abdominal aorta. Bowel: Moderate fecal retention is seen throughout the colon. There is no bowel obstruction. The appendix is not visualized. Peritoneum: There is no intraperitoneal free air or abdominal ascites. Lymphadenopathy: None. Pelvic viscera: The prostate gland is markedly enlarged and heterogeneous noting median lobe hypertrophy. The bladder is decompressed. The bladder wall appears thickened and trabeculated indicating chronic outlet obstruction. Skeletal structures: The skeletal structures are osteopenic. The lumbosacral spine, bony pelvis, and proximal femora appear intact. There is [id number] lumbosacral spondylosis. No lytic or blastic lesions are seen. IMPRESSION: 1. Significantly streak and motion compromised examination. 2. There is a mild acute superior endplate compression fracture of T12. 3. There is an acute left posterior 4th rib fracture. 4. Trace hemothorax is seen at the left lung base. 5. No pneumothorax. 6. Cardiomegaly. 7. There is no evidence of solid organ injury in the abdomen or pelvis. 8. Additional findings as above. ACT 112: Negative or not required by law. Electronically signed by: Rancho Roberts M.D. 08/27/2021 6:43 PM Chest X-Ray 08/27/21 15:36 SINGLE VIEW CHEST CLINICAL HISTORY: Fall. FINDINGS: An AP, portable, upright chest radiograph is compared to study dated 05/26/2021. A 2-lead cardiac pacemaker is unchanged in position. The patient is status post midline sternotomy. The heart is enlarged noting atherosclerotic calcification of the thoracic aorta. The pulmonary vasculature is noncongested. Chronic interstitial thickening is similar to previous. Scarring/atelectasis is noted at the lung bases. No airspace consolidation or large pleural effusion is identified. No pneumothorax is seen. The skeletal structures are osteopenic. The bony thorax is grossly intact. IMPRESSION: 1. Cardiomegaly and cardiac pacemaker. There is no radiographic evidence of congestive failure. 2. No airspace consolidation or large pleural effusion is identified. ACT 112: Negative or not required by law. Electronically signed by: Rancho Roberts M.D. 08/27/2021 4:[address] 08/27/21 15:36 CT SCAN OF THE BRAIN WITHOUT IV CONTRAST CLINICAL HISTORY: Trauma. Fall down stairs. COMPARISON STUDY: CT of the brain dated 05/26/2021. TECHNIQUE: Unenhanced axial CT scan of the brain is performed from the vertex to the skull base. A dose lowering technique was utilized adhering to the principles of ALARA. FINDINGS: Brain parenchyma: There are age-related involutional changes noting moderate to advanced confluent subcortical and periventricular microangiopathic change. There is no hemorrhage, mass effect, or evidence of acute territorial ischemia by CT criteria. 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 Smith-white matter differentiation is preserved. No extra-axial fluid collection is seen. Ventricles, sulci, cisterns: Prominent secondary to involutional change. Intracranial vasculature: There is atherosclerotic calcification of the cavernous carotid and vertebral arteries. Calvarium: The skeletal structures are osteopenic. There is no depressed calvarial fracture. Sinuses and mastoids: The visualized paranasal sinuses are clear. The mastoid air cells are well pneumatized. Orbits: The bony orbits are grossly intact. There are bilateral ocular lens implants. IMPRESSION: There is no hemorrhage, mass effect, or evidence of acute territorial ischemia by CT criteria. ACT 112: Negative or not required by law. Electronically signed by: Rancho Roberts M.D. 08/27/2021 6:17 PM Shoulder X-Ray 08/27/21 15:53 LEFT SHOULDER 3 VIEWS CLINICAL HISTORY: Fall. Left shoulder pain. FINDINGS: 3 views of the left shoulder are obtained. No prior studies are available for comparison at the time of dictation. The skeletal structures are osteopenic. There is no radiographic evidence of left shoulder fracture or dislocation. Productive degenerative change is noted at the acromioclavicular joint. Mild arthritic change is also seen at the glenohumeral articulation. The overlying soft tissues are within normal limits. A cardiac pacemaker is in place. The patient is status post midline sternotomy and the heart is enlarged. Left lung parenchyma is clear as visualized. IMPRESSION: No acute bony abnormality is identified. Electronically signed by: Rancho Roberts M.D. 08/27/2021 4:38 PM Chest X-Ray 08/30/21 12:53 SINGLE VIEW CHEST CLINICAL HISTORY: Fever. FINDINGS: An AP, portable, upright chest radiograph is compared to chest x-ray and chest CT dated 08/27/2021. The patient is status post midline sternotomy. A 2-lead cardiac pacemaker is unchanged in position. The heart is enlarged noting atherosclerotic calcification of the thoracic aorta. The pulmonary vasculature is noncongested. Airspace opacities at the right lung base likely represent atelectasis. Trace pleural effusions are suspected. No pneumothorax is seen. The skeletal structures are osteopenic. Left fourth rib fracture is again noted. IMPRESSION: 1. Cardiomegaly and cardiac pacemaker with no radiographic evidence of congestive failure. 2. Airspace opacities at the right lung base likely represent atelectasis. Clinical correlation will be required. 3. Suspect trace pleural effusions. ACT 112: Negative or not required by law. Electronically signed by: Rancho Roberts M.D. 08/30/2021 1:40 PM Chest X-Ray 09/10/21 09:50 XR chest 1V portable CLINICAL HISTORY: f/u cxr, r/o infection TECHNIQUE: Single frontal radiograph of the chest was obtained. Comparison: Comparison is made to chest one view 08/30/2021 FINDINGS: Redemonstration of median sternotomy wires, cardiac pacemaker, and surgical clips. Cardiomegaly is noted. In comparison to prior exam, right lung base airspace opacities no longer seen. No evidence of pleural effusion or pneumothorax. Degenerative changes of the right shoulder. IMPRESSION: No acute chest disease. In particular, previously noted right lung base airspace opacities are longer seen. ACT 112: Negative or not required by law. Electronically signed by: Faisal Moraes M.D. 09/10/2021 12:06 PM Hospital Course (1) Fall: (2) Weakness: (3) Pacemaker: (4) Rhabdomyolysis: (5) Left rib fracture: (6) T12 compression fracture: (7) Parkinson's disease: (8) Lewy body dementia: (9) CAD (coronary artery disease): (10) DVT prophylaxis: This is a 85-year-old male who has significant past medical history of Parkinson's disease, Lewy body dementia, CAD with history of CABG, pacemaker placement, severe aortic stenosis status post AVR, history of aortic aneurysm status post repair, PAF, hypertension, acquired hemolytic anemia who presents to ED after sustaining a fall 3 days prior to arrival as well as a fall on day of admission. He further had increased weakness and inability to care for self and therefore was brought in for evaluation. Patient was found to have rhabdomyolysis, left fourth rib fracture, small hemothorax and minimal acute superior endplate compression deformity at T12. He received gentle IV fluid and conservative management regarding left fourth rib fracture and T12 compression fracture with scheduled Tylenol and lidocaine patch. Scheduled Tylenol was discontinued secondary to breakthrough fever. He underwent chest x-ray and urine at that time which was negative for infection. Initially during hospitalization due to weakness and increased confusion he required Ferris catheter. This was subsequently removed. He was seen and evaluated by physical occupational therapy. While hospitalized he was due for a pacemaker generator change; therefore Dr. Mejia performed a generator change on 08/30/2021. She performed a wound check remotely. He was recommended to keep Steri-Strips in place and avoid bathing until 09/12. He remained stable throughout hospitalization. He did have hypertension in which losartan 50 mg twice daily and amlodipine 5 mg daily was added to his regimen. His blood pressure was controlled at discharge. On 09/10 he developed transient leukocytosis with WBC 15k. A chest x-ray and procalcitonin were within normal limits. A urinalysis was performed which at the time of discharge was growing greater than 100,000 gram-negative bacilli. He received 1 dose of 2 g IV Rocephin and is being discharged on oral Augmentin with probiotic. On day of discharge he was awake and alert and in good spirits. His vitals were otherwise stable. On day of discharge his WBC was 7.95, H&H 11.6 and 35.0, BP 115/68 and he was afebrile. Total Time Total Time Spent Total Time Spent (In Minutes): 60 min Discharge Plan Discharge Items Patient Disposition: Transfer [facility] Reason For Visit: FALL Discharge Diagnosis: Fall Weakness Rhabdomyoloysis Left Rib Fracture T12 compression fracture UTI Activity: Resume your previous activity Bathing Comment: May bathe starting 09/12 Non-emergency contact: Primary Care Provider and [employer] Call non-emergency contact if: you have any medication questions, your symptoms worsen, your pain is not controlled, your pain is worsening, your pain is concerning for you and you have a fever Follow-up/Referrals: Claribel Gaines MD [Primary Care Provider] - Diet: Heart Healthy Diet Texture: Easy to Chew Diet Comment: Aspiration precautions Addtl Attending Provider Instructions: MEDICATION CHANGES: *You were started on losartan 50 mg twice daily for high blood pressure. *You were started on amlodipine 5 mg daily for high blood pressure. *At time of discharge you are being treated for urinary tract infection and prescribed Augmentin 875 mg twice daily for additional 4 days, to complete on 09/15/2021. *You are discharged on probiotics, 2 capsules daily to be completed at the end of antibiotic course. SUMMARY OF TEST RESULTS/Hospitalization: You were admitted to hospital secondary to fall, weakness, L posterior 4th rib fracture, Mild compression fracture of T12. You were treated conservatively with pain control, mostly tylenol and lidoderm patch. You did not require narcotics. You had evaluations with physical and occupational therapy. During hospitalization you underwent a generator change of your pacemaker by Dr. Mejia. Your blood pressure was elevated during stay and requiring initation of losartan and amlodipine. At time of discharge your urine was positive for infection and you were started on antibotics. PENDING TEST RESULTS: None RECOMMENDATIONS FOR FOLLOW-UP: Arrange follow-up with cardiology Dr. Mejia pacemaker evaluation. Steri-Strips are to remain intact until 09/12 and then allowed to gently come off. You were able to shower starting 09/12. Complete Augmentin 875 mg twice daily x4 days for UTI. Probiotics, 2 tablets daily while on antibiotics. [facility]-up with [facility] provider [facility]. OTHER INSTRUCTIONS: Seek medical attention if you have: * temperature above 101 * chest pain or trouble breathing * abdominal pain, nausea, vomiting * diarrhea, dark stools or bloody stools * any unanswered questions or concerns Call 911 if symptoms are severe. Please take good care of yourself. It has been a pleasure taking care of you. Please take care of yourself. If you have any questions regarding your recent hospitalization please contact [facility] and [facility] Jeniffer[facility] @ [phone]. Italia Hewitt PA-C Pending Studies at Discharge: Yes Studies:: Urine culture Initial culture growing greater than 100,000 gram-negative bacilli 09/10/21 Stand-Alone Forms: [facility] Skilled Items Patient informed of condition?: Yes DNR: Yes Discharge Level of Care: Skilled Communicable Disease: No Discharge Prognosis: Stable Lines: None Urinary Catheter: No Medications and DC Order Prescriptions: New amlodipine [Norvasc] 5 mg Tablet 5 mg PO HS Qty: 30 RF: 0 losartan 50 mg Tablet 50 mg PO BID Qty: 60 RF: 0 polyethylene glycol 3350 [Miralax] 17 gram Powder In Packet 17 g PO DAILY Qty: 30 RF: 0 sennosides-docusate sodium [Senokot-S] 8.6-50 mg Tablet 1 tab PO QAM Qty: 30 RF: 0 Advanced Probiotic 625 mg (10 billion cell) Capsule 2 cap PO DAILY 4 Days Qty: 8 RF: 0 amoxicillin-pot clavulanate [Augmentin] 875-125 mg tablet 1 tab PO BID 4 Days Qty: 8 RF: 0 Continued atorvastatin [Lipitor] 20 mg tablet 20 mg PO QPM Qty: 30 RF: 0 donepezil 5 mg tablet 5 mg PO DAILY Qty: 30 RF: 0 aspirin 81 mg Tablet,Delayed Release (Dr/Ec) 81 mg PO DAILY Qty: 30 RF: 0 carbidopa-levodopa 25-100 mg tablet 1 tab PO BID Qty: 60 RF: 0 metoprolol tartrate 25 mg tablet 25 mg PO DAILY Qty: 30 RF: 0 furosemide 20 mg tablet 20 mg PO QAM Qty: 30 RF: 0 Discontinued furosemide 20 mg tablet 20 mg PO QAM RF: 0 Discharge Orders: Discharge Order (Routine); Ordered 09/11/21 Ordered By: Italia Hewitt Admission Data Admit Date/Time: 08/27/21 22:57 Attending Provider: Marvel Manzanares Admit Provider: Cj Hogan Primary Care Provider: Claribel Gaines Other Providers: Italia Hewitt ; [place] ; [facility] ; Kenna Grey ; Cj Hogan ; Candi Mejia
--- NOTE | 2021-09-13 12:07 | Operative Report (OR) ---
DATE OF PROCEDURE: 08/30/2021. PREOPERATIVE DIAGNOSES: Pacemaker at RAMONITA and sick sinus syndrome. POSTOPERATIVE DIAGNOSES: Pacemaker at RAMONITA and sick sinus syndrome. PROCEDURE: Dual-chamber rate responsive permanent pacemaker generator change. SURGEON: Candi Mejia DO SENIOR BUDGET ANALYST: None. ANESTHESIA: Monitored conscious sedation administered under my supervision by Rosa Sifuentes. Star t time 2:45, end time 3:30. Total of 50 mcg of fentanyl. INTRAVENOUS FLUIDS: 50 mL. ANTIBIOTICS: 2 grams of Ancef. COMPLICATIONS: None. CONDITION: Stable. URINE OUTPUT: Not applicable. SPECIMENS: None. FINDINGS: See below. DRAINS: None. BLOOD LOSS: 5 mL. INDICATIONS: This is an 85-year-old gentleman who has a past medical history for sick sinus syndrome where he underwent a permanent pacemaker back in 2011, hypertension, Parkinson's dementia, hyperlipi demia, history of an AVR, aortic aneurysm repair, history of a CABG. He was found at his most recent pacemaker check to have his device hit RAMONITA. He then was found to be hospitalized after a mechanical fall and was suffering from rhabdomyolysis. During his hospitalization, I opted to do a pacemaker g enerator change prior to him being discharged to the snf. CONSENT: Consent was obtained through just a phone conversation, in talking with his since the patient has Parkinson's dementia. The patient's was informed of the risks, benefits, and altern atives to the procedure. Risks include, but not limited to, sudden cardiac , cardiac arrhythmia s, cerebrovascular accident, myocardial infarction, bleeding, and infection. She understood these ri sks and agreed to go ahead with the procedure as planned. Informed consent was obtained. DESCRIPTION OF PROCEDURE: The patient was brought into electrophysiology lab in a fasting state. He was connected to continuous cardiac monitoring. A timeout was performed to ensure the patient ident ity and procedure correctly. He was prepped and draped over the left infraclavicular space in normal surgical standard fashion. Monitored conscious sedation was given throughout the procedure for the patient's comfort. [place] precautions were maintained throughout the procedure. A 10 mL of 1% lidocaine-bupivacaine mixture was given over the prior surgical incision. An incision was made over the prior surgical incision. Blunt dissection was performed down to the pulse generato r. The pulse generator was removed from the capsule. Leads were tested intraoperatively, see below for results. The capsule was disrupted inferiorly and caudally to allow for new blood flow. The poc ket was then flushed with copious amounts of vancomycin and saline wash and inspected for hemostasis. The new pulse generator was attached to the leads making sure the pins were in appropriate position , passed set screws, and set screws were all tightened. Pulse generator was then placed in the antib iotic pouch followed then by being placed in the pocket, making sure the leads were lying flat beneat h the device. The incision was closed in a 3-layer fashion using a 2-0 Vicryl interrupted suture, fo llowed by 3-0 Vicryl interrupted suture, followed by 4-0 Monocryl running stitch and Dermabond was ap plied followed by Telfa and Tegaderm dressing. EQUIPMENT: 1. Explanted generator is a Rolan GRACE DR [id number], serial number [id number], implanted 10/07/2012, PROJECT MANAGEMENT DIRECTOR on 07/18/2021. 2. The new pulse generator is [employer] Sharita XT DR LESLY Man [id number], serial number [id number]. 3. TYRX pouch, reference [id number], lot number [id number]. 4. Right atrial lead, 5086-52 cm, serial number [id number], implanted 10/07/2012. 5. Right ventricular lead 5086 MRI - 58 cm, [id number], implanted 10/07/2012. INTRAOPERATIVE TESTIN. Right atrial lead, P-waves 2.1 millivolts, impedance 361 ohms, threshold 2 volts at 1 millisecond . 2. Right ventricular lead, R waves 7.1 millivolts, impedance 437 ohms, threshold 2.75 volts at 0.4 m illiseconds. FINAL MEASUREMENTS THROUGH THE DEVICE. 1. Right atrial lead, P-waves 2 millivolts, impedance 361 ohms, threshold 2 volts at 1 millisecond. 2. Right ventricular lead, R waves 9 millivolts, impedance 437 ohms, threshold 1.75 volts at 1 paul second. FINAL PARAMETERS: MVP-R 60/130, right atrial amplitude 4 volts, pulse width is 1.0 milliseconds. Ri ght atrial sensitivity is 0.3 millivolts. Right ventricular amplitude 3.25 volts, pulse width 1 mill isecond, sensitivity 0.9 millivolts. IMPRESSION: Successful dual chamber rate responsive permanent pacemaker generator change secondary t o sick sinus syndrome, pacemaker at elective replacement indicator. PLAN: Transfer the patient back to the inpatient room. He is to keep the dressing on and dry for 1 week. No sponge bath, do not get it wet, and wound check and device check in 1 week's time. Job ID: [id number]
--- NOTE | 2021-09-26 14:36 | Cardiology Consultation ---
Date of Consultation Aug 30, 2021 Assessment & Plan (1) Pacemaker battery depletion: Pacemaker at RAMONITA: recommend pacemaker generator change I had discussed the procedure on the phone with the patient's given the patient's underlying dementia; explained the potential risks which include but not limited to arrhythmia, stroke, heart attack, , bleeding and infection. She expressed an understanding and consent obtained via phone call with a nurse as a witness. Will proceed with pacemaker generator change History of Present Illness Reason for Consultation: pacemaker at [facility]ONITA Requesting Physician: hospitalist Attending Physician: Marvel Manzanares MD History of Present Illness Pt was admitted to [facility] due to mechanical falls and is currently waiting on placement. At his most recent out pt device check for his pacemaker his device was found to hit RAMONITA Since he is stable and in the hospital with transportation and placement issues I thought it was best for his pacemaker to be changed out prior to discharge so EP was consulted. Of note due to pt's underlying dementia he is not the best historian Allergies Allergy/AdvReac Type Severity Reaction Status Date / Time No Known Allergies Allergy Verified 08/27/21 19:28 Home Medications Medication Instructions Recorded Confirmed Type amlodipine 5 mg tablet (Norvasc) 5 mg PO HS #30 tab 09/11/21 Rx aspirin 81 mg tablet,delayed 81 mg PO DAILY #30 tab 09/11/21 Rx release atorvastatin 20 mg tablet (Lipitor) 20 mg PO QPM #30 tab 09/11/21 Rx carbidopa 25 mg-levodopa 100 mg 1 tab PO BID #60 tab 09/11/21 Rx tablet donepezil 5 mg tablet 5 mg PO DAILY #30 tab 09/11/21 Rx furosemide 20 mg tablet 20 mg PO QAM #30 tab 09/11/21 Rx losartan 50 mg tablet 50 mg PO BID #60 tab 09/11/21 Rx metoprolol tartrate 25 mg tablet 25 mg PO DAILY #30 tab 09/11/21 Rx polyethylene glycol 3350 17 gram 17 g PO DAILY #30 ea 09/11/21 Rx oral powder packet (Miralax) sennosides 8.6 mg-docusate sodium 1 tab PO QAM #30 tab 09/11/21 Rx 50 mg tablet (Senokot-S) Patient History Medical History (Updated 09/26/21 @ 14:37 by Candi Mejia DO) Aortic aneurysm Aortic stenosis Atrial fibrillation CAD (coronary artery disease) Dementia Hemolytic anemia HLD (hyperlipidemia) HTN (hypertension) Left rib fracture longterm resident Pacemaker Pacemaker battery depletion Parkinsons disease Rhabdomyolysis T12 compression fracture Surgical History H/O prosthetic heart valve History of cataract surgery right Hx of heart bypass surgery Social History Smoking Status: Unknown if ever smoked Hx Substance Use: No Preferred Language: Turkish Communication Ability: Unable Visual Impairment: No Limitations Hearing Ability: Normal Invoice 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 Required: No Beliefs That Will Affect Care: None marital status: Current Living Situation: Spouse Current Living Situation Comment: resident at [facility] Feels Safe at Home: Yes Assistive Devices: Walker Review of Systems Review of Systems: +weakness, activity change, fatigue, falls No SOB, CP, N/V, Fevers All other ROS unremarkable Physical Exam Physical Exam: awake and alert, NAD NC/AT, EOMI Supple No JVD Nrl S1/S2, No murmur CTA b/l no w/r/r soft nt/nd no LE edema b/l skin intact no focal deficits left pectoral pacemaker site no signs of threatened erosion Results & Data ([facility]) Vital Signs (Past 12 Hours) Reviewed Laboratory Results Lab work reviewed Medications Administered reviewed
== END 2021-09-11 15:07 | DRG 988 ==
LOC: ED 15:03 → SUATTDRO 22:57 → EDINP 22:57 → 2N 08-28 16:44 → 1E 08-30 13:19 → 2S 08-30 13:20 → 3E 09-02 15:19
DX: Z45.010 Encounter for checking and testing of cardiac pacemaker pulse generator [battery]; R31.0 Gross hematuria; W10.9XXA Fall (on) (from) unspecified stairs and steps, initial encounter; I25.10 Atherosclerotic heart disease of native coronary artery without angina pectoris; D58.9 Hereditary hemolytic anemia, unspecified; Y92.018 Other place in single-family (private) house as the place of occurrence of the external cause; J94.2 Hemothorax; S22.32XA Fracture of one rib, left side, initial encounter for closed fracture; Z79.82 Long term (current) use of aspirin; I16.0 Hypertensive urgency; Z95.5 Presence of coronary angioplasty implant and graft; T79.6XXA Traumatic ischemia of muscle, initial encounter; S22.080A Wedge compression fracture of T11-T12 vertebra, initial encounter for closed fracture; I49.5 Sick sinus syndrome; Z95.2 Presence of prosthetic heart valve; N39.0 Urinary tract infection, site not specified; I48.91 Unspecified atrial fibrillation; G20 Parkinson's disease; R29.6 Repeated falls; D59.9 Acquired hemolytic anemia, unspecified; F02.80 Dementia in other diseases classified elsewhere, unspecified severity, without behavioral disturbance, psychotic disturbance, mood disturbance, and anxiety

== ENCOUNTER 2022-06-20 09:36 | Inpatient (IN) ==
[2022-06-20] MEDS ORDERED: SODIUM CHLORIDE 0.9% 500 ML IV ONE (09:40)
[2022-06-20 10:09] LABS: Basophils # (auto) 0.02 K/uL (0-0.2); Basophils % (auto) 0.2 %; Eosinophils # (auto) 0.01 K/uL (0-0.50); Eosinophils % (auto) 0.1 %; Hemoglobin 13.2 g/dl (14.0-18.0); Immature Granulocytes # (auto) 0.05 K/uL (0.00-0.02); Immature Granulocytes % (auto) 0.4 %; Lymphocytes # (auto) 0.56 K/uL (1.2-3.4); Lymphocytes % (auto) 4.4 %; Mean Corpuscular Hemoglobin 30.7 pg (25.0-34.0); Mean Platelet Volume 10.3 fL (9.4-12.4); Monocytes # (auto) 1.05 K/uL (0.24-0.82); Monocytes % (auto) 8.3 %; Neutrophils # (auto) 11.03 K/uL (1.4-6.5); Neutrophils % (auto) 86.6 %; Platelet Count 213 K/uL (130-400); RDW Coefficient of Variation 13.4 % (11.5-14.5); RDW Standard Deviation 45.4 fL (36.4-46.3); White Blood Count 12.72 K/ul (4.8-10.8)
--- NOTE | 2022-06-20 10:12 | XRay Report ---
XR chest 1V portable HISTORY: 86 years-old Male Chest Pain . Acute atypical chest pain COMPARISON: Chest radiograph 09/10/2021, chest CT 08/27/2021 TECHNIQUE: Portable AP view of the chest FINDINGS: The cardiac silhouette is enlarged. Prior median sternotomy with CABG. Left subclavian pacer. Surgica l clips project over the upper abdomen. There is no pneumothorax. Pulmonary vascular congestion with mild interstitial coarsening. Trace pleural effusions with mild bibasilar atelectasis. Chronic left-s ided rib fractures. Degenerative changes of the shoulders and spine. IMPRESSION: 1. Cardiomegaly with pulmonary vascular congestion. 2. Probable trace pleural effusions. ACT 112: Negative or not required by law. The above report was generated using voice recognition software. It may contain grammatical, syntax o r spelling errors. Electronically signed by: Mariano Wilcox M.D. 06/20/2022 10:11 AM
--- NOTE | 2022-06-20 10:30 | Emergency Department Note ---
Impression & Plan Stroke-like symptom, Lewy body dementia, Facial droop ED Provider Note NAME: SHARON FRAGOSO AGE: 86 SEX: M ARRIVES VIA: Ambulance INFORMANT: Patient ED PROVIDER(S): Brannon Reyes MD CHIEF COMPLAINT: Stroke like symptoms PLAN: Disposition: Admit MEDICAL DECISION MAKING: The patient is a pleasant 86-year-old gentleman with a past medical history of Lewy body dementia/parkinsonism, CAD, history of CABG, status post PPM who presents to the emergency department from [facility] for evaluation of concern for strokelike symptoms where they noted right facial droop and felt he was leaning to the right this morning with last known well last night prior to going to sleep. The patient's mentation appears to be at his baseline where he is minimally verbal but will answer questions with simple replies. On arrival the patient is in no acute distress, afebrile stable vital signs. He has masked facies. However there does appear to be subtle right lower facial droop. He will not smile on command but will purse his lips to puff out his cheeks when asked and shows subtle weakness of the right lower face. His eyebrows raise symmetrically. He has no focal extremity weakness and exhibits generalized weakness of bilateral upper and lower extremities. EKG is paced without overt acute ischemia. Chest x-ray with vascular congestion and nonspecific interstitial thickening. WBC 12.7K, nonspecific. H/H similar to prior. Platelets within normal limits. Chemistry without metabolic acidosis. Electrolytes and LFTs without significant abnormality. High-sensitivity troponin 11, within normal limits. Lipase not elevated. TSH within normal limits. COVID-19 RNA, TJ test was negative. CT of the head and CTA of the head and neck were performed and were negative for ICH or severe narrowing or occlusion of large vessels. 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 I did review the patient's presentation with his over the phone and she reports she does not feel that the patient ever had a right lower facial droop in the past. She reports she last saw him last week without a mask. She does agree with plan for admission for further management given change from his sherri lofton. Case was discussed with Dr. Mcginnis, [facility] [address] hospitalist, who will evaluate the patient for admission. Triage Nursing notes reviewed and agree them. Prior medical records reviewed Vital Signs: reviewed and remarkable for no significant abnormalities Differential diagnosis: Infection, dehydration, metabolic abnormality, hypo/hyperglycemia, electrolyte disturbance, anemia, hypoxia, cardiac sources, intracerebral event, toxicologic, neurologic, as well as other pathologies. ER treatment provided: See below. Diagnostics interpreted by me: ECG: Atrial paced rhythm, frequent PVCs, 71 bpm, right bundle branch block, no overt acute ischemia. Cardiac Monitoring: An order for continuous cardiac monitoring was placed and demonstrated Atrial paced rhythm, frequent PVCs, 71 bpm. Laboratory studies: See below Imaging studies: See below Consultation(s): Case was discussed with Dr. Mcginnis, [place] [facility] Hospitalist, who will evaluate the patient for admission. HPI: The patient is a pleasant 86-year-old gentleman with a past medical history of Lewy body dementia/parkinsonism, CAD, history of CABG, status post PPM who presents to the emergency department from [facility] for evaluation of concern for strokelike symptoms where they noted right facial droop and felt he was leaning to the right this morning with last known well last night prior to going to sleep. The patient's mentation appears to be at his baseline where he is minimally verbal but will answer questions with simple replies. ROS: See above HPI for pertinent positives & negatives. A total of 10 systems reviewed and were otherwise negative. VITALS:See Below PHYSICAL EXAMINATION: GENERAL: Awake, alert, chronically-appearing, in no distress HENT: Normocephalic, atraumatic. Oropharynx with dry mucous membranes and otherwise unremarkable. EYES: Normal conjunctiva. Sclera non-icteric. NECK: Supple. No nuchal rigidity. FROM. No JVD. RESPIRATORY: Clear to auscultation. CARDIAC: Regular rate, normal rhythm. Extremities warm and well perfused. Pulses equal. ABDOMEN: Soft, non-distended. No tenderness to palpation. No rebound or guarding. No masses. RECTAL: Deferred. MUSCULOSKELETAL: Chest examination reveals no tenderness. The back is symmetrical on inspection without obvious abnormality. There is no CVA tenderness to palpation. No joint edema. LOWER EXTREMITIES: Calves are equal size bilaterally and non-tender. No edema. No discoloration. NEURO: Masked facies. Subtle resting right lower facial droop. He will not smile on command but will purse his lips to puff out his cheeks when asked with asymmetric weakness of the right lower face. Eyebrows raise symmetrically. No focal extremity weakness and exhibits generalized weakness of bilateral upper and lower extremities. SKIN: No rash or jaundice noted. Brannon Reyes MD Past Med/Surg History Medical History (Updated 06/20/22 @ 22:23 by Brannon Reyes MD) Aortic aneurysm Aortic stenosis Atrial fibrillation CAD (coronary artery disease) Dementia Hemolytic anemia HLD (hyperlipidemia) HTN (hypertension) Left rib fracture group home resident Pacemaker Pacemaker battery depletion Parkinsons disease Rhabdomyolysis T12 compression fracture Surgical History H/O prosthetic heart valve History of cataract surgery right Hx of heart bypass surgery Social History Smoking Status: Never smoker Hx Substance Use: No Preferred Language: Fijian Communication Ability: Unable Visual Impairment: No Limitations Hearing Ability: Normal [employer] 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 Beliefs That Will Affect Care: None marital status: Current Living Situation: Spouse Current Living Situation Comment: resident at [facility] Feels Safe at Home: Yes Assistive Devices: Walker Allergies Allergies Allergy/AdvReac Type Severity Reaction Status Date / Time No Known Allergies Allergy Verified 08/27/21 19:28 Home Meds Previous Rx's Medication Instructions Recorded amlodipine 5 mg tablet (Norvasc) 5 mg PO HS #30 tabs 09/11/21 aspirin 81 mg tablet,delayed 81 mg PO DAILY #30 tabs 09/11/21 release atorvastatin 20 mg tablet (Lipitor) 20 mg PO QPM #30 tabs 09/11/21 carbidopa 25 mg-levodopa 100 mg 1 tab PO BID #60 tabs 09/11/21 tablet donepezil 5 mg tablet 5 mg PO DAILY #30 tabs 09/11/21 furosemide 20 mg tablet 20 mg PO QAM #30 tabs 09/11/21 losartan 50 mg tablet 50 mg PO BID #60 tabs 09/11/21 metoprolol tartrate 25 mg tablet 25 mg PO DAILY #30 tabs 09/11/21 polyethylene glycol 3350 17 gram 17 g PO DAILY #30 ea 09/11/21 oral powder packet (Miralax) sennosides 8.6 mg-docusate sodium 1 tab PO QAM #30 tabs 09/11/21 50 mg tablet (Senokot-S) Results & Data (ED) Vital Signs Vital Signs - 24 hr 06/20/22 09:40 06/20/22 10:02 06/20/22 11:10 Temperature 37.3 C Temperature Source Oral Pulse Rate 106 H 77 Pulse Rate [Apical] Pulse Rhythm Regular Pulse Strength Normal Respiratory Rate 24 20 Respiratory Effort / Characteristics Non-Labored Respiratory Depth Normal Respiratory Pattern Regular Blood Pressure 136/61 122/55 L Blood Pressure [Left Arm] Blood Pressure Mean 86 77 Blood Pressure Mean [Left Arm] Pulse Oximetry 97 95 94 Oxygen Delivery Method Room Air Room Air Room Air Sepsis Recent Fever Within 48 Hours No Sepsis New/Unexplained Change in Mental Status No Sepsis Action Taken by Nursing Physician Notified 06/20/22 11:11 06/20/22 13:10 06/20/22 15:00 Temperature Temperature Source Pulse Rate Pulse Rate [Apical] 71 69 76 Pulse Rhythm Pulse Strength Respiratory Rate 19 20 18 Respiratory Effort / Characteristics Respiratory Depth Respiratory Pattern Blood Pressure Blood Pressure [Left Arm] 122/55 L 133/57 L 125/58 L Blood Pressure Mean Blood Pressure Mean [Left Arm] 77 82 80 Pulse Oximetry 94 95 94 Oxygen Delivery Method Room Air Room Air Room Air Sepsis Recent Fever Within 48 Hours Sepsis New/Unexplained Change in Mental Status Sepsis Action Taken by Nursing Laboratory Data Result diagrams: 06/20/22 09:44 06/20/22 09:44 Lab Results 06/20/22 06/20/22 06/20/22 Range/Units 09:44 09:44 09:44 WBC 12.72 H (4.8-10.8) K/ul RBC 4.30 L (4.63-6.08) M/uL Hgb 13.2 L (14.0-18.0) g/dl Hct 40.0 L (40.1-51.0) % MCV 93.0 (80.0-100.0) fL MCH 30.7 (25.0-34.0) pg MCHC 33.0 (32.0-36.0) g/dL RDW Std Deviation 45.4 (36.4-46.3) fL RDW Coeff of Lacey 13.4 (11.5-14.5) % Plt Count 213 (130-400) K/uL MPV 10.3 (9.4-12.4) fL Immature Gran % (Auto) 0.4 % Neut % (Auto) 86.6 % Lymph % (Auto) 4.4 % Karnes % (Auto) 8.3 % Eos % (Auto) 0.1 % Baso % (Auto) 0.2 % Neut # (Auto) 11.03 H (1.4-6.5) K/uL Lymph # (Auto) 0.56 L (1.2-3.4) K/uL Karnes # (Auto) 1.05 H (0.24-0.82) K/uL Eos # (Auto) 0.01 (0-0.50) K/uL Baso # (Auto) 0.02 (0-0.2) K/uL Immature Gran # (Auto) 0.05 H (0.00-0.02) K/uL Sodium 139 (136-145) mmol/L Potassium 4.0 (3.5-5.1) mmol/L Chloride 103 (98-107) mmol/L Carbon Dioxide 31 (21-32) mmol/L Anion Gap 5 (3-11) BUN 19 (6-23) mg/dl Creatinine 0.96 (0.6-1.4) mg/dl Est Cr Clr Drug Dosing 73.7 ml/min Est GFR ( Amer) 82.6 ml/min Est GFR (Non-Af Amer) 71.3 ml/min BUN/Creatinine Ratio 19.8 (10-20) Glucose 118 H (70-99(Fasting)) mg/dl Calcium 9.0 (8.5-10.1) mg/dl Phosphorus 2.8 (2.5-4.9) mg/dl Magnesium 1.8 (1.7-2.4) mg/dl Total Bilirubin 0.9 (0.2-1.0) mg/dl AST 13 (13-39) U/L ALT < 3 L (7-52) U/L Alkaline Phosphatase 66 (34-104) U/L Troponin I High Sens 11.0 (0-20) pg/ml Total Protein 7.4 (6.0-8.3) gm/dl Albumin 4.0 (3.4-5.0) gm/dl Globulin 3.4 (2.5-4.0) gm/dl Albumin/Globulin Ratio 1.2 (0.9-2) Lipase 36 (11-82) U/L TSH 0.952 (0.300-4.500) uIu/ml SARS-CoV-2, RNA, NAAT (NEGATIVE) 06/20/22 Range/Units 11:09 WBC (4.8-10.8) K/ul RBC (4.63-6.08) M/uL Hgb (14.0-18.0) g/dl Hct (40.1-51.0) % MCV (80.0-100.0) fL MCH (25.0-34.0) pg MCHC (32.0-36.0) g/dL RDW Std Deviation (36.4-46.3) fL RDW Coeff of Lacey (11.5-14.5) % Plt Count (130-400) K/uL MPV (9.4-12.4) fL Immature Gran % (Auto) % Neut % (Auto) % Lymph % (Auto) % Karnes % (Auto) % Eos % (Auto) % Baso % (Auto) % Neut # (Auto) (1.4-6.5) K/uL Lymph # (Auto) (1.2-3.4) K/uL Karnes # (Auto) (0.24-0.82) K/uL Eos # (Auto) (0-0.50) K/uL Baso # (Auto) (0-0.2) K/uL Immature Gran # (Auto) (0.00-0.02) K/uL Sodium (136-145) mmol/L Potassium (3.5-5.1) mmol/L Chloride (98-107) mmol/L Carbon Dioxide (21-32) mmol/L Anion Gap (3-11) BUN (6-23) mg/dl Creatinine (0.6-1.4) mg/dl Est Cr Clr Drug Dosing ml/min Est GFR ( Amer) ml/min Est GFR (Non-Af Amer) ml/min BUN/Creatinine Ratio (10-20) Glucose (70-99(Fasting)) mg/dl Calcium (8.5-10.1) mg/dl Phosphorus (2.5-4.9) mg/dl Magnesium (1.7-2.4) mg/dl Total Bilirubin (0.2-1.0) mg/dl AST (13-39) U/L ALT (7-52) U/L Alkaline Phosphatase (34-104) U/L Troponin I High Sens (0-20) pg/ml Total Protein (6.0-8.3) gm/dl Albumin (3.4-5.0) gm/dl Globulin (2.5-4.0) gm/dl Albumin/Globulin Ratio (0.9-2) Lipase (11-82) U/L TSH (0.300-4.500) uIu/ml SARS-CoV-2, RNA, NAAT NEGATIVE (NEGATIVE) Administered Medications Clopidogrel Bisulfate (Clopidogrel Bisulfate 75 Mg Tab) 75 mg PO QAM FERNIE Stop: 07/20/22 16:44 Last Admin: 06/20/22 17:45 Dose: 75 mg Documented By: JE Discontinued Medications Aspirin (Aspirin 81 Mg Chew) 324 mg PO NOW STA Stop: 06/20/22 15:43 Last Admin: 06/20/22 17:45 Dose: Not Given Documented By: JE Aspirin (Aspirin Chew 324 Mg) Confirm Administered Dose 324 mg .ROUTE .STK-MED ONE Stop: 06/20/22 17:42 Last Admin: 06/20/22 17:45 Dose: 324 mg Documented By: JE Atorvastatin Calcium (Atorvastatin 20 Mg Tab) 20 mg PO NOW STA Stop: 06/20/22 15:43 Last Admin: 06/20/22 17:45 Dose: 20 mg Documented By: JE Sodium Chloride (Nss) 500 mls @ 999 mls/hr IV .Q31M ONE Stop: 06/20/22 10:10 Last Infusion: 06/20/22 12:31 Dose: 0 mls/hr Documented By: Admin: 06/20/22 11:16 Dose: 999 mls/hr Documented By: ML Ioversol (Optiray 320 125ml) 120 ml IV ONCE ONE Stop: 06/20/22 11:52 Last Admin: 06/20/22 11:52 Dose: 120 ml Documented By: ZENAIDA Imaging Data Radiologist's Impression: Head CT 06/20/22 10:[address] OF THE BRAIN; CT ANGIOGRAM OF THE BRAIN; CT ANGIOGRAM OF THE NECK CLINICAL HISTORY: Right-sided facial droop. Dementia. COMPARISON STUDY: CT of the brain dated 08/27/2021. CT angiogram of the head and neck dated 05/26/2021. TECHNIQUE: Unenhanced axial CT scan of the brain is performed. Subsequently, fol lowing the IV administration of 120 of Optiray 320, CT angiogram of the head and neck was performed from the aortic arch to the vertex. Images are reviewed in the axial, sagittal, and coronal planes. 3-D MIPS images are created and assessed. IV contrast was administered without complication. All measurements were calculated based on NASCET criteria. A dose lowering technique was utilized adhering to the principles of ALARA. CT DOSE: 1269.47 mGy.cm FINDINGS: Brain parenchyma: There is age-related involutional change noting moderate to advanced subcortical and periventricular microangiopathic disease. There is no hemorrhage, mass effect, or evidence of acute territorial ischemia by CT criteria. There is no evidence of enhancing mass lesion on the angiogram phase images. The ventricles, sulci, and cisterns are prominent secondary to involutional change. Smith-white matter differentiation is preserved. A chronic lacunar infarct is noted in the right basal ganglia. No extra-axial fluid collection is seen. Thoracic aorta: Postoperative change is suggested involving the ascending thorac ic aorta. There is aneurysmal dilatation of the ascending thoracic aorta which measures up to 4.6 cm in diameter. The aortic arch demonstrates standard 3- vessel anatomy. Right carotid arterial system: The right common carotid artery is widely patent, as are the right internal and external carotid arteries. Calcified plaque is noted in the carotid bulb. Left carotid arterial system: The left common carotid artery is widely patent, as are the left internal and external carotid arteries. Atherosclerotic calcification is noted in the carotid bulb. Vertebral arteries: There is high-grade stenosis the origin of the left vertebral artery, best seen on axial image #139. The vertebral arteries are otherwise widely patent bilaterally and codominant. Subclavian arteries: Widely patent bilaterally. Intracranial vasculature: There is atherosclerotic calcification of the cavernous carotid and vertebral arteries The internal carotid arteries are patent at the skull base, as are the anterior and middle cerebral arteries bilaterally. The vertebrobasilar system and posterior cerebral arteries are widely patent. The vertebral arteries are codominant. There is a large right posterior communicating artery. The right P1 segment is diminutive. There is no aneurysm, high-grade stenosis, or focal vessel cut off seen throughout the intracranial circulation. Jugular veins: Patent bilaterally. Dural sinuses: Patent. Lung apices: Partially visualized upper lobe lung parenchyma appears clear. Soft tissues: The visualized pharyngeal soft tissues are normal in appearance noting angiographic phase technique. The oropharyngeal airway appears widely patent. Calcified sialoliths are noted in the parotid glands. The salivary and thyroid glands are otherwise normal in appearance. No cervical lymphadenopathy is seen. Pacemaker leads are noted at the left thoracic inlet. Skeletal structures: The skeletal structures are osteopenic. The calvarium a ppears intact. The cervical spine is maintained noting multilevel spondylosis. No lytic or blastic lesion is seen. Midline sternotomy wires are noted. Orbits: The bony orbits are intact. Orbital contents are normal as visualized noting bilateral ocular lens implants. Sinuses and mastoids: There is mild mucosal thickening in the sphenoid sinuses. The remaining paranasal sinuses are clear. The mastoid air cells are well pneumatized. IMPRESSION: 1. There is no hemorrhage, mass effect, or evidence of acute territorial ischemia by CT criteria. 2. Unremarkable CT angiogram of the brain. 3. 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 4. Otherwise unremarkable CT angiogram of the neck. ACT 112: Negative or not required by law. Electronically signed by: Rancho Roberts M.D. 06/20/2022 12:13 PM Head CTA 06/20/22 10:[address] OF THE BRAIN; CT ANGIOGRAM OF THE BRAIN; CT ANGIOGRAM OF THE NECK CLINICAL HISTORY: Right-sided facial droop. Dementia. COMPARISON STUDY: CT of the brain dated 08/27/2021. CT angiogram of the head and neck dated 05/26/2021. TECHNIQUE: Unenhanced axial CT scan of the brain is performed. Subsequently, following the IV administration of 120 of Optiray 320, CT angiogram of the head and neck was performed from the aortic arch to the vertex. Images are reviewed in the axial, sagittal, and coronal planes. 3-D MIPS images are created and assessed. IV contrast was administered without complication. All measurements were calculated based on NASCET criteria. A dose lowering technique was utilized adhering to the principles of ALARA. CT DOSE: 1269.47 mGy.cm FINDINGS: Brain parenchyma: There is age-related involutional change noting moderate to advanced subcortical and periventricular microangiopathic disease. There is no hemorrhage, mass effect, or evidence of acute territorial ischemia by CT c riteria. There is no evidence of enhancing mass lesion on the angiogram phase images. The ventricles, sulci, and cisterns are prominent secondary to involutional change. Smith-white matter differentiation is preserved. A chronic lacunar infarct is noted in the right basal ganglia. No extra-axial fluid collection is seen. Thoracic aorta: Postoperative change is suggested involving the ascending thoracic aorta. There is aneurysmal dilatation of the ascending thoracic aorta which measures up to 4.6 cm in diameter. The aortic arch demonstrates standard 3-vessel anatomy. Right carotid arterial system: The right common carotid artery is widely patent, as are the right internal and external carotid arteries. Calcified plaque is noted in the carotid bulb. Left carotid arterial system: The left common carotid artery is widely patent, as are the left internal and external carotid arteries. Atherosclerotic calcification is noted in the carotid bulb. Vertebral arteries: There is high-grade stenosis the origin of the left vertebral artery, best seen on axial image #139. The vertebral arteries are otherwise widely patent bilaterally and codominant. Subclavian arteries: Widely patent bilaterally. Intracranial vasculature: There is atherosclerotic calcification of the cavernous carotid and vertebral arteries The internal carotid arteries are patent at the skull base, as are the anterior and middle cerebral arteries bilaterally. The vertebrobasilar system and posterior cerebral arteries are widely patent. The vertebral arteries are codominant. There is a large right posterior communicating artery. The right P1 segment is diminutive. There is no aneurysm, high-grade stenosis, or focal vessel cut off seen throughout the intracranial circulation. Jugular veins: Patent bilaterally. Dural sinuses: Patent. Lung apices: Partially visualized upper lobe lung parenchyma appears clear. Soft tissues: The visualized pharyngeal soft tissues are normal in appearance noting angiographic phase technique. The oropharyngeal airway appears widely patent. Calcified sialoliths are noted in the parotid glands. The salivary and thyroid glands are otherwise normal in appearance. No cervical lymphadenopathy is seen. Pacemaker leads are noted at the left thoracic inlet. Skeletal structures: The skeletal structures are osteopenic. The calvarium appears intact. The cervical spine is maintained noting multilevel spondylosis. No lytic or blastic lesion is seen. Midline sternotomy wires are noted. Orbits: The bony orbits are intact. Orbital contents are normal as visualized noting bilateral ocular lens implants. Sinuses and mastoids: There is mild mucosal thickening in the sphenoid sinuses. The remaining paranasal sinuses are clear. The mastoid air cells are well pneumatized. IMPRESSION: 1. There is no hemorrhage, mass effect, or evidence of acute territorial ischemia by CT criteria. 2. Unremarkable CT angiogram of the brain. 3. 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 4. Otherwise unremarkable CT angiogram of the neck. ACT 112: Negative or not required by law. Electronically signed by: Rancho Roberts M.D. 06/20/2022 12:13 PM Neck CTA 06/20/22 10:[address] OF THE BRAIN; CT ANGIOGRAM OF THE BRAIN; CT ANGIOGRAM OF THE NECK CLINICAL HISTORY: Right-sided facial droop. Dementia. COMPARISON STUDY: CT of the brain dated 08/27/2021. CT angiogram of the head and neck dated 05/26/2021. TECHNIQUE: Unenhanced axial CT scan of the brain is performed. Subsequently, following the IV administration of 120 of Optiray 320, CT angiogram of the head and neck was performed from the aortic arch to the vertex. Images are reviewed in the axial, sagittal, and coronal planes. 3-D MIPS images are created and assessed. IV contrast was administered without complication. All measurements were calculated based on NASCET criteria. A dose lowering technique was utilized adhering to the principles of ALARA. CT DOSE: 1269.47 mGy.cm FINDINGS: Brain parenchyma: There is age-related involutional change noting moderate to advanced subcortical and periventricular microangiopathic disease. There is no hemorrhage, mass effect, or evidence of acute territorial ischemia by CT criteria. There is no evidence of enhancing mass lesion on the angiogram phase images. The ventricles, sulci, and cisterns are prominent secondary to involutional change. Smith-white matter differentiation is preserved. A chronic lacunar infarct is noted in the right basal ganglia. No extra-axial fluid collection is seen. Thoracic aorta: Postoperative change is suggested involving the ascending thoracic aorta. There is aneurysmal dilatation of the ascending thoracic aorta which measures up to 4.6 cm in diameter. The aortic arch demonstrates standard 3-vessel anatomy. Right carotid arterial system: The right common carotid artery is widely patent, as are the right internal and external carotid arteries. Calcified plaque is noted in the carotid bulb. Left carotid arterial system: The left common carotid artery is widely patent, as are the left internal and external carotid arteries. Atherosclerotic calcification is noted in the carotid bulb. Vertebral arteries: There is high-grade stenosis the origin of the left vertebral artery, best seen on axial image #139. The vertebral arteries are otherwise widely patent bilaterally and codominant. Subclavian arteries: Widely patent bilaterally. Intracranial vasculature: There is atherosclerotic calcification of the cavernous carotid and vertebral arteries The internal carotid arteries are patent at the skull base, as are the anterior and middle cerebral arteries bilaterally. The vertebrobasilar system and posterior cerebral arteries are widely patent. The vertebral arteries are codominant. There is a large right posterior communicating artery. The right P1 segment is diminutive. There is no aneurysm, high-grade stenosis, or focal vessel cut off seen throughout the intracranial circulation. Jugular veins: Patent bilaterally. Dural sinuses: Patent. Lung apices: Partially visualized upper lobe lung parenchyma appears clear. Soft tissues: The visualized pharyngeal soft tissues are normal in appearance noting angiographic phase technique. The oropharyngeal airway appears widely patent. Calcified sialoliths are noted in the parotid glands. The salivary and thyroid glands are otherwise normal in appearance. No cervical lymphadenopathy is seen. Pacemaker leads are noted at the left thoracic inlet. Skeletal structures: The skeletal structures are osteopenic. The calvarium appears intact. The cervical spine is maintained noting multilevel spondylosis. No lytic or blastic lesion is seen. Midline sternotomy wires are noted. Orbits: The bony orbits are intact. Orbital contents are normal as visualized noting bilateral ocular lens implants. Sinuses and mastoids: There is mild mucosal thickening in the sphenoid sinuses. The remaining paranasal sinuses are clear. The mastoid air cells are well pneumatized. IMPRESSION: 1. There is no hemorrhage, mass effect, or evidence of acute territorial ischem ia by CT criteria. 2. Unremarkable CT angiogram of the brain. 3. 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 4. Otherwise unremarkable CT angiogram of the neck. ACT 112: Negative or not required by law. Electronically signed by: Rancho Roberts M.D. 06/20/2022 12:13 PM Discharge Plan Visit Data Chief Complaint: Stroke/CVA Symptoms Stated Complaint: WEAKNESS, STROKE SX ED Provider: Brannon Reyes Discharge Problem: Stroke-like symptom, Lewy body dementia, Facial droop
[2022-06-20 10:35] LABS: Anion Gap 5 (3-11); BUN Creatinine Ratio 19.8 (10-20); Blood Urea Nitrogen 19 mg/dl (6-23); Carbon Dioxide 31 mmol/L (21-32); Chloride 103 mmol/L (98-107); Creatinine Clr Calc Pharmacy 73.7 ml/min; Est GFR (African American) 82.6 ml/min; Est GFR (Non-African American) 71.3 ml/min; Glucose 118 mg/dl (70-99(Fasting)); Sodium 139 mmol/L (136-145)
[2022-06-20 10:38] LABS: Alanine Aminotransferase < 3 U/L (7-52); Albumin Globulin Ratio 1.2 (0.9-2); Alkaline Phosphatase 66 U/L (34-104); Aspartate Aminotransferase 13 U/L (13-39); Bilirubin,Total 0.9 mg/dl (0.2-1.0); Globulin 3.4 gm/dl (2.5-4.0); Lipase 36 U/L (11-82); Magnesium 1.8 mg/dl (1.7-2.4); Phosphorus 2.8 mg/dl (2.5-4.9); Total Protein 7.4 gm/dl (6.0-8.3)
[2022-06-20] MEDS ORDERED: OPTIRAY 320 125ml IV ONE (11:51)
--- NOTE | 2022-06-20 12:15 | CT Scan Report ---
UNENHANCED CT OF THE BRAIN; CT ANGIOGRAM OF THE BRAIN; CT ANGIOGRAM OF THE NECK CLINICAL HISTORY: Right-sided facial droop. Dementia. COMPARISON STUDY: CT of the brain dated 08/27/2021. CT angiogram of the head and neck dated 05/26/2021 . TECHNIQUE: Unenhanced axial CT scan of the brain is performed. Subsequently, following the IV adminis tration of 120 of Optiray 320, CT angiogram of the head and neck was performed from the aortic arch t o the vertex. Images are reviewed in the axial, sagittal, and coronal planes. 3-D MIPS images are cre ated and assessed. IV contrast was administered without complication. All measurements were calculate d based on NASCET criteria. A dose lowering technique was utilized adhering to the principles of ALA RA. 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 There is no hemorrhage, mass effect, or evidence of acute territorial ischemia by CT criteria. There is no evidence of enhancing mass lesion on the angiogram phase images. The ventricles, sulci, and cisterns are prominent secondary to involutional change. Gra y-white matter differentiation is preserved. A chronic lacunar infarct is noted in the right basal ga nglia. No extra-axial fluid collection is seen. Thoracic aorta: Postoperative change is suggested involving the ascending thoracic aorta. 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 The aort ic arch demonstrates standard 3-vessel anatomy. Right carotid arterial system: The right common carotid artery is widely patent, as are the right int ernal and external carotid arteries. Calcified plaque is noted in the carotid bulb. Left carotid arterial system: The left common carotid artery is widely patent, as are the left director internal control al and external carotid arteries. Atherosclerotic calcification is noted in the carotid bulb. Vertebral arteries: There is high-grade stenosis the origin of the left vertebral artery, best seen o n axial image #139. The vertebral arteries are otherwise widely patent bilaterally and codominant. Subclavian arteries: Widely patent bilaterally. Intracranial vasculature: There is atherosclerotic calcification of the cavernous carotid and vertebr al arteries The internal carotid arteries are patent at the skull base, as are the anterior and middl e cerebral arteries bilaterally. The vertebrobasilar system and posterior cerebral arteries are widel y patent. The vertebral arteries are codominant. There is a large right posterior communicating arter y. The right P1 segment is diminutive. There is no aneurysm, high-grade stenosis, or focal vessel cut off seen throughout the intracranial circulation. Jugular veins: Patent bilaterally. Dural sinuses: Patent. Lung apices: Partially visualized upper lobe lung parenchyma appears clear. Soft tissues: The visualized pharyngeal soft tissues are normal in appearance noting angiographic pha se technique. The oropharyngeal airway appears widely patent. Calcified sialoliths are noted in the p arotid glands. The salivary and thyroid glands are otherwise normal in appearance. No cervical lympha denopathy is seen. Pacemaker leads are noted at the left thoracic inlet. Skeletal structures: The skeletal structures are osteopenic. The calvarium appears intact. The cervic al spine is maintained noting multilevel spondylosis. No lytic or blastic lesion is seen. Midline dorian rnotomy wires are noted. Orbits: The bony orbits are intact. Orbital contents are normal as visualized noting bilateral ocular lens implants. Sinuses and mastoids: There is mild mucosal thickening in the sphenoid sinuses. The remaining paranas al sinuses are clear. The mastoid air cells are well pneumatized. IMPRESSION: 1. There is no hemorrhage, mass effect, or evidence of acute territorial ischemia by CT criteria. 2. Unremarkable CT angiogram of the brain. 3. 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 4. Otherwise unremarkable CT angiogram of the neck. ACT 112: Negative or not required by law. Electronically signed by: Rancho Roberts M.D. 06/20/2022 12:13 PM
--- NOTE | 2022-06-20 15:32 | History & Physical Report ---
Date of Service June 20, 2022 Assessment & Plan (1) Stroke or transient ischemic attack (TIA) diagnosed during current adm ission: (2) Lewy body dementia: (3) Parkinson's disease: (4) CAD (coronary artery disease): (5) Pacemaker: Plan Patient is a 86-year-old male with past medical history of Lewy body dementia, sick sinus syndrome with dual-chamber pacemaker, CAD status post CABG, aortic stenosis status post bioprosthetic valve, TAA s/p surgery, hypertension, hyperlipidemia was brought from [facility] with concern of right facial droop. 1) Right sided Facial droop Reported by nursing staff. Examination limited due to mentation Risk factors include hyperlipidemia, hypertension, CAD CT head, CTA head and neck unremarkable EKGatrial paced rhythm Plan; Allow for progressive hypertension for next 24 to 48 hours. Obtain MRI brain without contrast. Patient has a pacemaker placed in 2011; was able to undergo MRI brain in 2020. Obtain echo with bubble study. Continue telemetry monitoring Obtain A1c, lipid panel. Continue aspirin and statin. Diet ordered after patient passed dysphagia screen. Diet as per past admissions [employer] eval. Chronic conditions; Lewy body dementia/Parkinson'scontinue on carbidopa/levodopa and donepezil CAD status post CABGcontinue on aspirin, Lipitor, beta-ban Hypertensionhold losartan and amlodipine. Continue metoprolol. Code status- DNR/DNI Diet- easy to chew DVT prophylaxis- lovenox History of Present Illness Chief Complaint: Right facial droop for 1 day Primary Care Provider: [facility] Patient is a 86-year-old male with past medical history of Lewy body dementia, sick sinus syndrome with dual-chamber pacemaker, CAD status post CABG, aortic stenosis status post bioprosthetic valve, TAA s/p surgery, hypertension, hyperlipidemia was brought from [facility] with concern of right facial droop. As per the staff in the facility, patient was noted to have right facial droop and was leaning to the right side which prompted them to call EMS. His last well- known was last night. Patient was examined and assessed at bedside, he was lying on the bed comfortably. He was not oriented to time, place and person. He was able to tell his name and his date of . He intermittently follows some simple commands including moving his arms and legs. He denies any discomfort at the moment. He was not able to provide any further information. Further information was taken from his ( Ms. Hdz) over the phone. He was last seen by her and her friend 3 to 4 days back. He was at his baseline at that time. Patient requires assistance for most of his ADLs. patient was last admitted in August 2021 for traumatic rhabdomyolysis and left rib fracture.Patient has multiple comorbidities including sick sinus syndrome for which he underwent pacemaker placement in 2011 with degenerative changes in 08/2021, aortic aneurysm repair, CAD status post CABG. Allergies Allergy/AdvReac Type Severity Reaction Status Date / Time No Known Allergies Allergy Verified 08/27/21 19:28 Home Medications Medication Instructions Recorded Confirmed Type amlodipine 5 mg tablet (Norvasc) 5 mg PO HS #30 tabs 09/11/21 06/20/22 Rx aspirin 81 mg tablet,delayed 81 mg PO DAILY #30 tabs 09/11/21 06/20/22 Rx release atorvastatin 20 mg tablet (Lipitor) 20 mg PO QPM #30 tabs 09/11/21 06/20/22 Rx carbidopa 25 mg-levodopa 100 mg 1 tab PO BID #60 tabs 09/11/21 06/20/22 Rx tablet donepezil 5 mg tablet 5 mg PO DAILY #30 tabs 09/11/21 06/20/22 Rx furosemide 20 mg tablet 20 mg PO QAM #30 tabs 09/11/21 06/20/22 Rx losartan 50 mg tablet 50 mg PO BID #60 tabs 09/11/21 06/20/22 Rx metoprolol tartrate 25 mg tablet 25 mg PO DAILY #30 tabs 09/11/21 06/20/22 Rx polyethylene glycol 3350 17 gram 17 g PO DAILY #30 ea 09/11/21 06/20/22 Rx oral powder packet (Miralax) sennosides 8.6 mg-docusate sodium 1 tab PO QAM #30 tabs 09/11/21 06/20/22 Rx 50 mg tablet (Senokot-S) Past Med/Surg History Medical History (Updated 06/20/22 @ 15:36 by Pavel Mcginnis MD) Aortic aneurysm Aortic stenosis Atrial fibrillation CAD (coronary artery disease) Dementia Hemolytic anemia HLD (hyperlipidemia) HTN (hypertension) Left rib fracture care home resident Pacemaker Pacemaker battery depletion Parkinsons disease Rhabdomyolysis T12 compression fracture Surgical History H/O prosthetic heart valve History of cataract surgery right Hx of heart bypass surgery Social History Smoking Status: Never smoker Hx Substance Use: No Preferred Language: [place] Communication Ability: Unable Visual Impairment: No Limitations Hearing Ability: Normal [employer] Required: No Beliefs That Will Affect Care: None marital status: Current Living Situation: Spouse Current Living Situation Comment: resident at [facility] Feels Safe at Home: Yes Assistive Devices: Walker Review of Systems Review of Systems: Unobtainable due to cognitive status Physical Exam Physical Exam: Constitutional: Awake, oriented to self, not oriented to time and place. Head: Normocephalic, Atraumatic Eyes: PERRL, conjunctivae normal, anicteric sclerae ENMT: external ear and nose normal, oropharynx normal Neck: trachea midline, no thyromegaly normal visual inspection Respiratory: normal respiratory effort, lungs clear to auscultation, no wheeze, rales, rhonchi. Normal insp/exp effort, no accessory muscle use Cardiovascular: RRR, no murmur, no edema Vessels: no JVD or carotid bruit Chest: Scar love present from previous surgery. Pacemaker present on left upper chest. Abdomen: normal bowel sounds, soft, nontender, no hepatosplenomegaly Musculoskeletal: no cyanosis or clubbing, Skin: no rashes, warm and dry normal turgor Neurologic: Awake, oriented to self. Not oriented to time place and person Questionable facial droop on right side. Doesn't follow command when asked to smile or puff his cheekcs PERRLA. Able to lift his right and left arm up on command. Unable to follow most of the commands. Psychiatric: A+Ox3, euthymic affect Lymphatic: no cervical or axillary lymphadenopathy : deferred Results & Data Results & Data ([facility]) Vital Signs (Past 12 Hours) Vital Signs Temp Pulse Pulse Resp BP BP Pulse Ox 06/20/22 15:00 76 18 125/58 L 94 06/20/22 13:10 69 20 133/57 L 95 06/20/22 11:11 71 19 122/55 L 94 06/20/22 11:10 94 06/20/22 10:02 77 20 122/55 L 95 06/20/22 09:40 37.3 C 106 H 24 136/61 97 O2 Del Method 06/20/22 15:00 Room Air 06/20/22 13:10 Room Air 06/20/22 11:11 Room Air 06/20/22 11:10 Room Air 06/20/22 10:02 Room Air 06/20/22 09:40 Room Air Diagnostic Findings Chest X-Ray 06/20/22 09:39 XR chest 1V portable HISTORY: 86 years-old Male Chest Pain . Acute atypical chest pain COMPARISON: Chest radiograph 09/10/2021, chest CT 08/27/2021 TECHNIQUE: Portable AP view of the chest FINDINGS: The cardiac silhouette is enlarged. Prior median sternotomy with CABG. Left subclavian pacer. Surgical clips project over the upper abdomen. There is no pneumothorax. Pulmonary vascular congestion with mild interstitial coarsening. Trace pleural effusions with mild bibasilar atelectasis. Chronic left-sided rib fractures. Degenerative changes of the shoulders and spine. IMPRESSION: 1. Cardiomegaly with pulmonary vascular congestion. 2. Probable trace pleural effusions. ACT 112: Negative or not required by law. The above report was generated using voice recognition software. It may contain grammatical, syntax or spelling errors. Electronically signed by: Mariano Wilcox M.D. 06/20/2022 10:[address] 06/20/22 10:[address] OF THE BRAIN; CT ANGIOGRAM OF THE BRAIN; CT ANGIOGRAM OF THE NECK CLINICAL HISTORY: Right-sided facial droop. Dementia. COMPARISON STUDY: CT of the brain dated 08/27/2021. CT angiogram of the head and neck dated 05/26/2021. TECHNIQUE: Unenhanced axial CT scan of the brain is performed. Subsequently, following the IV administration of 120 of Optiray 320, CT angiogram of the head and neck was performed from the aortic arch to the vertex. Images are reviewed in the axial, sagittal, and coronal planes. 3-D MIPS images are created and ass essed. IV contrast was administered without complication. All measurements were calculated based on NASCET criteria. A dose lowering technique was utilized adhering to the principles of ALARA. CT DOSE: 1269.47 mGy.cm FINDINGS: Brain parenchyma: There is age-related involutional change noting moderate to advanced subcortical and periventricular microangiopathic disease. There is no hemorrhage, mass effect, or evidence of acute territorial ischemia by CT criteria. There is no evidence of enhancing mass lesion on the angiogram phase images. The ventricles, sulci, and cisterns are prominent secondary to involutional change. Smith-white matter differentiation is preserved. A chronic lacunar infarct is noted in the right basal ganglia. No extra-axial fluid collection is seen. Thoracic aorta: Postoperative change is suggested involving the ascending thoracic aorta. There is aneurysmal dilatation of the ascending thoracic aorta which measures up to 4.6 cm in diameter. The aortic arch demonstrates standard 3-vessel anatomy. Right carotid arterial system: The right common carotid artery is widely patent, as are the right internal and external carotid arteries. Calcified plaque is n oted in the carotid bulb. Left carotid arterial system: The left common carotid artery is widely patent, as are the left internal and external carotid arteries. Atherosclerotic calcification is noted in the carotid bulb. Vertebral arteries: There is high-grade stenosis the origin of the left vertebral artery, best seen on axial image #139. The vertebral arteries are otherwise widely patent bilaterally and codominant. Subclavian arteries: Widely patent bilaterally. Intracranial vasculature: There is atherosclerotic calcification of the cavernous carotid and vertebral arteries The internal carotid arteries are patent at the skull base, as are the anterior and middle cerebral arteries bilaterally. The vertebrobasilar system and posterior cerebral arteries are widely patent. The vertebral arteries are codominant. There is a large right posterior communicating artery. The right P1 segment is diminutive. There is no aneurysm, high-grade stenosis, or focal vessel cut off seen throughout the intracranial circulation. Jugular veins: Patent bilaterally. Dural sinuses: Patent. Lung apices: Partially visualized upper lobe lung parenchyma appears clear. Soft tissues: The visualized pharyngeal soft tissues are normal in appearance noting angiographic phase technique. The oropharyngeal airway appears widely patent. Calcified sialoliths are noted in the parotid glands. The salivary and thyroid glands are otherwise normal in appearance. No cervical lymphadenopathy is seen. Pacemaker leads are noted at the left thoracic inlet. Skeletal structures: The skeletal structures are osteopenic. The calvarium appears intact. The cervical spine is maintained noting multilevel spondylosis. No lytic or blastic lesion is seen. Midline sternotomy wires are noted. Orbits: The bony orbits are intact. Orbital contents are normal as visualized noting bilateral ocular lens implants. Sinuses and mastoids: There is mild mucosal thickening in the sphenoid sinuses. The remaining paranasal sinuses are clear. The mastoid air cells are well pneumatized. IMPRESSION: 1. There is no hemorrhage, mass effect, or evidence of acute territorial ischemia by CT criteria. 2. Unremarkable CT angiogram of the brain. 3. 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 4. Otherwise unremarkable CT angiogram of the neck. ACT 112: Negative or not required by law. Electronically signed by: Rancho Roberts M.D. 06/20/2022 12:13 PM Head CTA 06/20/22 10:[address] OF THE BRAIN; CT ANGIOGRAM OF THE BRAIN; CT ANGIOGRAM OF THE NECK CLINICAL HISTORY: Right-sided facial droop. Dementia. COMPARISON STUDY: CT of the brain dated 08/27/2021. CT angiogram of the head and neck dated 05/26/2021. TECHNIQUE: Unenhanced axial CT scan of the brain is performed. Subsequently, following the IV administration of 120 of Optiray 320, CT angiogram of the head and neck was performed from the aortic arch to the vertex. Images are reviewed in the axial, sagittal, and coronal planes. 3-D MIPS images are created and assessed. IV contrast was administered without complication. All measurements were calculated based on NASCET criteria. A dose lowering technique was utilized adhering to the principles of ALARA. CT DOSE: 1269.47 mGy.cm FINDINGS: Brain parenchyma: There is age-related involutional change noting moderate to advanced subcortical and periventricular microangiopathic disease. There is no hemorrhage, mass effect, or evidence of acute territorial ischemia by CT criteria. There is no evidence of enhancing mass lesion on the angiogram phase images. The ventricles, sulci, and cisterns are prominent secondary to involutional change. Smith-white matter differentiation is preserved. A chronic lacunar infarct is noted in the right basal ganglia. No extra-axial fluid collection is seen. Thoracic aorta: Postoperative change is suggested involving the ascending thoracic aorta. There is aneurysmal dilatation of the ascending thoracic aorta which measures up to 4.6 cm in diameter. The aortic arch demonstrates standard 3-vessel anatomy. Right carotid arterial system: The right common carotid artery is widely patent, as are the right internal and external carotid arteries. Calcified plaque is noted in the carotid bulb. Left carotid arterial system: The left common carotid artery is widely patent, as are the left internal and external carotid arteries. Atherosclerotic calcification is noted in the carotid bulb. Vertebral arteries: There is high-grade stenosis the origin of the left verteb ral artery, best seen on axial image #139. The vertebral arteries are otherwise widely patent bilaterally and codominant. Subclavian arteries: Widely patent bilaterally. Intracranial vasculature: There is atherosclerotic calcification of the cavernous carotid and vertebral arteries The internal carotid arteries are patent at the skull base, as are the anterior and middle cerebral arteries bila terally. The vertebrobasilar system and posterior cerebral arteries are widely patent. The vertebral arteries are codominant. There is a large right posterior communicating artery. The right P1 segment is diminutive. There is no aneurysm, high-grade stenosis, or focal vessel cut off seen throughout the intracranial circulation. Jugular veins: Patent bilaterally. Dural sinuses: Patent. Lung apices: Partially visualized upper lobe lung parenchyma appears clear. Soft tissues: The visualized pharyngeal soft tissues are normal in appearance noting angiographic phase technique. The oropharyngeal airway appears widely patent. Calcified sialoliths are noted in the parotid glands. The salivary and thyroid glands are otherwise normal in appearance. No cervical lymphadenopathy is seen. Pacemaker leads are noted at the left thoracic inlet. Skeletal structures: The skeletal structures are osteopenic. The calvarium appears intact. The cervical spine is maintained noting multilevel spondylosis. No lytic or blastic lesion is seen. Midline sternotomy wires are noted. Orbits: The bony orbits are intact. Orbital contents are normal as visualized noting bilateral ocular lens implants. Sinuses and mastoids: There is mild mucosal thickening in the sphenoid sinuses. The remaining paranasal sinuses are clear. The mastoid air cells are well pneumatized. IMPRESSION: 1. There is no hemorrhage, mass effect, or evidence of acute territorial ischemia by CT criteria. 2. Unremarkable CT angiogram of the brain. 3. 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 4. Otherwise unremarkable CT angiogram of the neck. ACT 112: Negative or not required by law. Electronically signed by: Rancho Roberts M.D. 06/20/2022 12:13 PM Neck CTA 06/20/22 10:[address] OF THE BRAIN; CT ANGIOGRAM OF THE BRAIN; CT ANGIOGRAM OF THE NECK CLINICAL HISTORY: Right-sided facial droop. Dementia. COMPARISON STUDY: CT of the brain dated 08/27/2021. CT angiogram of the head and neck dated 05/26/2021. TECHNIQUE: Unenhanced axial CT scan of the brain is performed. Subsequently, following the IV administration of 120 of Optiray 320, CT angiogram of the head and neck was performed from the aortic arch to the vertex. Images are reviewed in the axial, sagittal, and coronal planes. 3-D MIPS images are created and assessed. IV contrast was administered without complication. All measurements were calculated based on NASCET criteria. A dose lowering technique was utilized adhering to the principles of ALARA. CT DOSE: 1269.47 mGy.cm FINDINGS: Brain parenchyma: There is age-related involutional change noting moderate to advanced subcortical and periventricular microangiopathic disease. There is no hemorrhage, mass effect, or evidence of acute territorial ischemia by CT criteria. There is no evidence of enhancing mass lesion on the angiogram phase images. The ventricles, sulci, and cisterns are prominent secondary to involutional change. Smith-white matter differentiation is preserved. A chronic lacunar infarct is noted in the right basal ganglia. No extra-axial fluid collection is seen. Thoracic aorta: Postoperative change is suggested involving the ascending thoracic aorta. There is aneurysmal dilatation of the ascending thoracic aorta which measures up to 4.6 cm in diameter. The aortic arch demonstrates standard 3-vessel anatomy. Right carotid arterial system: The right common carotid artery is widely patent, as are the right internal and external carotid arteries. Calcified plaque is noted in the carotid bulb. Left carotid arterial system: The left common carotid artery is widely patent, as are the left internal and external carotid arteries. Atherosclerotic calcification is noted in the carotid bulb. Vertebral arteries: There is high-grade stenosis the origin of the left vertebral artery, best seen on axial image #139. The vertebral arteries are otherwise widely patent bilaterally and codominant. Subclavian arteries: Widely patent bilaterally. Intracranial vasculature: There is atherosclerotic calcification of the cavernous carotid and vertebral arteries The internal carotid arteries are patent at the skull base, as are the anterior and middle cerebral arteries bilaterally. The vertebrobasilar system and posterior cerebral arteries are widely patent. The vertebral arteries are codominant. There is a large right posterior communicating artery. The right P1 segment is diminutive. There is no aneurysm, high-grade stenosis, or focal vessel cut off seen throughout the intracranial circulation. Jugular veins: Patent bilaterally. Dural sinuses: Patent. Lung apices: Partially visualized upper lobe lung parenchyma appears clear. Soft tissues: The visualized pharyngeal soft tissues are normal in appearance noting angiographic phase technique. The oropharyngeal airway appears widely patent. Calcified sialoliths are noted in the parotid glands. The salivary and thyroid glands are otherwise normal in appearance. No cervical lymphadenopathy is seen. Pacemaker leads are noted at the left thoracic inlet. Skeletal structures: The skeletal structures are osteopenic. The calvarium appears intact. The cervical spine is maintained noting multilevel spondylosis. No lytic or blastic lesion is seen. Midline sternotomy wires are noted. Orbits: The bony orbits are intact. Orbital contents are normal as visualized noting bilateral ocular lens implants. Sinuses and mastoids: There is mild mucosal thickening in the sphenoid sinuses. The remaining paranasal sinuses are clear. The mastoid air cells are well pneumatized. IMPRESSION: 1. There is no hemorrhage, mass effect, or evidence of acute territorial ischemia by CT criteria. 2. Unremarkable CT angiogram of the brain. 3. 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 4. Otherwise unremarkable CT angiogram of the neck. ACT 112: Negative or not required by law. Electronically signed by: Rancho Roberts M.D. 06/20/2022 12:13 PM COVID-19 Results Results COVID-19 Adm Lab Results: RBC 4.30 M/uL (4.63-6.08) L 06/20/22 WBC 12.72 K/ul (4.8-10.8) H 06/20/22 Hgb 13.2 g/dl (14.0-18.0) L 06/20/22 Hct 40.0 % (40.1-51.0) L 06/20/22 Plt Count 213 K/uL (130-400) 06/20/22 Neutrophils (%) (Auto) 86.6 % 06/20/22 Lymphocytes (%) (Auto) 4.4 % 06/20/22 Monocytes # (Auto) 1.05 K/uL (0.24-0.82) H 06/20/22 Eosinophils # (Auto) 0.01 K/uL (0-0.50) 06/20/22 Immature Granulocyte % (Auto) 0.4 % 06/20/22 Neutrophils # (Auto) 11.03 K/uL (1.4-6.5) H 06/20/22 Lymphocytes # (Auto) 0.56 K/uL (1.2-3.4) L 06/20/22 Monocytes # (Auto) 1.05 K/uL (0.24-0.82) H 06/20/22 Eosinophils # (Auto) 0.01 K/uL (0-0.50) 06/20/22 Basophils # (Auto) 0.02 K/uL (0-0.2) 06/20/22 Immature Granulocyte # (Auto) 0.05 K/uL (0.00-0.02) H 06/20 Na 139 mmol/L (136-145) 06/20/22 K 4.0 mmol/L (3.5-5.1) 06/20/22 Cl 103 mmol/L (98-107) 06/20/22 CO2 31 mmol/L (21-32) 06/20/22 Anion Gap 5 (3-11) 06/20/22 BUN 19 mg/dl (6-23) 06/20/22 Creatinine 0.96 mg/dl (0.6-1.4) 06/20/22 BUN/Creatinine Ratio 19.8 (10-20) 06/20/22 Glucose Level 118 mg/dl (70-99(Fasting)) H 06/20/22 Ca 9.0 mg/dl (8.5-10.1) 06/20/22 Phosphorus Level 2.8 mg/dl (2.5-4.9) 06/20/22 Total Bilirubin 0.9 mg/dl (0.2-1.0) 06/20/22 AST/SGOT 13 U/L (13-39) 06/20/22 ALT/SGPT < 3 U/L (7-52) L 06/20/22 Alkaline Phosphatase 66 U/L (34-104) 06/20/22 Total Protein 7.4 gm/dl (6.0-8.3) 06/20/22 Albumin 4.0 gm/dl (3.4-5.0) 06/20/22 Globulin 3.4 gm/dl (2.5-4.0) 06/20/22 Albumin/Globulin Ratio 1.2 (0.9-2) 06/20/22 SARS-CoV-2, RNA, NAAT NEGATIVE (NEGATIVE) 06/20/22 Chest X-Ray 06/20/22
[2022-06-20] MEDS ORDERED: ASPIRIN 81 MG CHEW PO STA (15:42)
[2022-06-20] MEDS ORDERED: ATORVASTATIN 20 MG TAB PO STA (15:42)
[2022-06-20] MEDS ORDERED: PHARMACIST DISCHARGE MED REC CONSULT PRN (16:01)
[2022-06-20] MEDS ORDERED: POLYETHYLENE (MIRALAX) 17 GM PACK PO PRN (16:01)
--- NOTE | 2022-06-20 17:39 | Electrocardiogram Report ---
Test Reason : Blood Pressure : / mmHG Vent. Rate : 071 BPM Atrial Rate : 061 BPM P-R Int : 362 ms QRS Dur : 148 ms QT Int : 452 ms P-R-T Axes : 000 019 -24 degrees QTc Int : 491 ms Atrial-paced rhythm with prolonged AV conduction with frequent Premature ventricular complexes Right bundle branch block T wave abnormality, consider inferolateral ischemia Abnormal ECG When compared with ECG of 27-AUG-2021 16:49, Electronic atrial pacemaker has replaced Electronic ventricular pacemaker Confirmed by Joon Garcia ([id number]) on 06/20/2022 5:38:52 PM Referred By: [facility] Confirmed By:Randy Garcia
[2022-06-20] MEDS ORDERED: ASPIRIN CHEW 324 MG ONE (17:41)
[2022-06-20] MEDS: CLOPIDOGREL BISULFATE 75 MG TAB PO SCH (17:45)
[2022-06-20] MEDS: CARBIDOPA/LEVODOPA 25/100MG TAB PO SCH (23:57)
[2022-06-21 05:07] LABS: Basophils # (auto) 0.02 K/uL (0-0.2); Basophils % (auto) 0.1 %; Hematocrit (blood only) 35.5 % (40.1-51.0); Hemoglobin 11.6 g/dl (14.0-18.0); Immature Granulocytes # (auto) 0.22 K/uL (0.00-0.02); Immature Granulocytes % (auto) 1.2 %; Lymphocytes # (auto) 1.08 K/uL (1.2-3.4); Mean Corpuscular Hemoglobin 30.8 pg (25.0-34.0); Mean Corpuscular Hgb Conc 32.7 g/dL (32.0-36.0); Mean Corpuscular Volume 94.2 fL (80.0-100.0); Mean Platelet Volume 10.5 fL (9.4-12.4); Monocytes # (auto) 2.05 K/uL (0.24-0.82); Monocytes % (auto) 11.3 %; Neutrophils # (auto) 14.75 K/uL (1.4-6.5); Neutrophils % (auto) 81.4 %; Platelet Count 173 K/uL (130-400); RDW Coefficient of Variation 13.7 % (11.5-14.5); RDW Standard Deviation 47.1 fL (36.4-46.3); Red Blood Count 3.77 M/uL (4.63-6.08); White Blood Count 18.12 K/ul (4.8-10.8)
[2022-06-21 05:32] LABS: BUN Creatinine Ratio 24.5 (10-20); Calcium 8.3 mg/dl (8.5-10.1); Chol HDL Ratio 3.5 (0-5); Creatinine Clr Calc Pharmacy 69.4 ml/min; Est GFR (African American) 76.8 ml/min; Est GFR (Non-African American) 66.2 ml/min; Potassium 3.5 mmol/L (3.5-5.1)
[2022-06-21 06:40] LABS: Estimated Average Glucose 114 mg/dl; Hemoglobin A1C 5.6 % (4.5-5.6)
[2022-06-21] MEDS: ASPIRIN 81 MG ECTAB PO SCH (08:35)
[2022-06-21] MEDS: CARBIDOPA/LEVODOPA 25/100MG TAB PO SCH ×2 (08:35→19:58)
[2022-06-21] MEDS: ATORVASTATIN 20 MG TAB PO SCH (08:35)
[2022-06-21] MEDS: ENOXAPARIN INJ 40 MG/0.4 ML SYR SQ SCH (08:36)
[2022-06-21] MEDS: DOCUSATE SODIUM/SENNA 50/8.6MG TAB PO SCH (08:36)
[2022-06-21] MEDS: DONEPEZIL HCL 5 MG TAB PO SCH (08:36)
[2022-06-21] MEDS: CLOPIDOGREL BISULFATE 75 MG TAB PO SCH (08:36)
[2022-06-21] MEDS: POLYETHYLENE (MIRALAX) 17 GM PACK PO SCH (08:37)
[2022-06-21] MEDS: METOPROLOL TARTRATE 25 MG TAB PO SCH (08:40)
--- NOTE | 2022-06-21 10:38 | Magnetic Resonance Report ---
MRI OF THE BRAIN WITHOUT CONTRAST CLINICAL HISTORY: Altered mental status. Falls. Evaluate for stroke. COMPARISON STUDY: MRI of the brain May 29, 2021. Head CT and CTA of the head June 20, 2022. TECHNIQUE: Utilizing a 1.5 Danielle magnet and dedicated coil, multiplanar, multiecho imaging of the bra in was performed without IV contrast. FINDINGS: There are no foci of restricted diffusion to suggest acute infarct. No acute intracranial h emorrhage, midline shift or mass effect is present. Moderate atrophy is again noted. Extensive white matter T2 hyperintense foci are similar to MRI of May 29, 2021. This represents small vessel disease . A 1.2 cm old infarct within the right internal capsule is unchanged. No intracranial masses are [place] ntified on this unenhanced exam. A few old lacunar infarcts within the bilateral cerebellar hemispher es are noted. Scattered punctate hypointense foci on the gradient echo sequence are noted. This findi ng is chronic. Calvarial signal is normal. No evidence for sinusitis. IMPRESSION: 1. No acute intracranial findings. 2. Extensive small vessel disease and moderate atrophy. 3. Several old small infarcts, unchanged since MRI of May 29, 2021. 4. Punctate hypointense foci on gradient echo sequence suggestive of trace old blood products or sequ kee of amyloid. ACT 112: Negative or not required by law. Electronically signed by: Nolberto Alexandre M.D. 06/21/2022 10:36 AM
--- NOTE | 2022-06-21 11:41 | Hospitalist Progress Note ---
Date of Service June 21, 2022 Assessment & Plan (1) Stroke-like symptom: (2) Lewy body dementia: (3) Parkinson's disease: (4) CAD (coronary artery disease): (5) Pacemaker: Plan 86-year-old male with past medical history of Lewy body dementia, sick sinus syndrome with dual-chamber pacemaker, CAD status post CABG, aortic stenosis status post bioprosthetic valve, TAA s/p surgery, hypertension, hyperlipidemia was brought from [place] with concern of right facial droop. Stroke like symptoms Reported by nursing staff. CT head did not show any acute abnormality CTA only noted high grade stenosis at left vertebral art origin which is unchanged MRI brain did not show any acute findings but noted several old small infarct unchanged from May 2021 EKGatrial paced rhythm Awaiting Neuro evaluation Continue aspirin and statin. Patient has worsening leukocytosis. UA showed trace leuk est, 10-30WBC Give empirical Abx for now while awaiting urine culture Blood cultures Hypertension BP is normal Continue to hold losartan and amlodipine. Continue metoprolol. Chronic conditions; Lewy body dementia/Parkinson'scontinue on carbidopa/levodopa and donepezil CAD status post CABGcontinue on aspirin, Lipitor, beta-ban Code status- DNR/DNI Diet- easy to chew DVT prophylaxis- lovenox Admission and Anticipated Discharge Date Admission Date: June 20, 2022 Subjective Patient seen and examined Patient was awake, alert, oriented to person only Patient is a very poor historian likely due to his dementia Denied any complaints Review of Systems Review of Systems: Unobtainable due to cognitive status Physical Exam Constitutional: + well hydrated; no acute distress Eyes: PERRL, conjunctivae normal, anicteric sclerae ENMT: external ear and nose normal, oropharynx normal Respiratory: normal respiratory effort, lungs clear to auscultation Cardiovascular: Rate/Rhythm: regular rate and regular rhythm S1 S2 Gastrointestinal (Abdomen): normal bowel sounds, soft, nontender, no hepatosplenomegaly Musculoskeletal: No pedal edema Neurologic: PERRL, EOMI. Slow movements but power is equal in extremities on both side Follows simple commands. Results & Data Results & Data ([facility]) Vital Signs (Past 12 Hours) Vital Signs Temp Pulse Resp BP Pulse Ox O2 Del Method 06/21/22 10:43 37.1 C 60 18 127/69 95 Room Air 06/21/22 08:41 56 L 16 109/53 L 97 Room Air 06/21/22 00:00 60 18 129/69 96 Room Air Laboratory Results Abnormal lab results 06/21/22 06/21/22 06/21/22 Range/Units 04:47 04:47 11:29 WBC 18.12 H (4.8-10.8) K/ul RBC 3.77 L (4.63-6.08) M/uL Hgb 11.6 L (14.0-18.0) g/dl Hct 35.5 L (40.1-51.0) % RDW Std Deviation 47.1 H (36.4-46.3) fL Neut # (Auto) 14.75 H (1.4-6.5) K/uL Lymph # (Auto) 1.08 L (1.2-3.4) K/uL [place] # (Auto) 2.05 H (0.24-0.82) K/uL Immature Gran # (Auto) 0.22 H (0.00-0.02) K/uL BUN 25 H (6-23) mg/dl BUN/Creatinine Ratio 24.5 H (10-20) Glucose 123 H (70-99(Fasting)) mg/dl Calcium 8.3 L (8.5-10.1) mg/dl Ur Specific [place] 1.041 H (1.000-1.030) Urine Protein 1+ H (Negative) Urine Ketones Trace H (Negative) Urine Blood Trace H (Negative) Ur Leukocyte Esterase Trace H (Negative) Urine WBC (Auto) 10-30 H (0-5) /hpf Urine RBC (Auto) 5-10 H (0-4) /hpf U Epithel Cells (Auto) 10-20 H (0-5) /lpf
[2022-06-21 11:44] LABS: Appearance Urine Clear (Clear); Bacteria Urine Automated Negative (Negative); Bilirubin Urine Negative (Negative); Blood Urine Trace (Negative); Color Urine Dark Yellow; Glucose Urine UA Negative (Negative); Ketones Urine Trace (Negative); Leukocyte Esterase Urine Trace (Negative); Nitrite Urine Negative (Negative); Protein Urine 1+ (Negative); Specific Gravity Urine 1.041 (1.000-1.030); Urobilinogen Urine Negative (Negative)
[2022-06-21] MEDS: cefTRIAXone SODIUM 2,000 MG in DEXTROSE 5% 50 ML IV SCH (15:26)
--- NOTE | 2022-06-21 18:10 | Consultation Report ---
DATE OF SERVICE: 06/21/2022 REASON FOR CONSULTATION: Possible transient ischemic attack. HISTORY OF PRESENT ILLNESS: This patient is an 86-year-old male with Lewy body dementia and parkinsonism, sick sinus syndrome, coronary artery disease, status post CABG, aortic stenosis, status post bioprosthetic valve, TAA, status post surgery, hypertension, hyperlipidemia, brought in from [facility] with a concern of right facial droop. the pt is known to me. The right facial droop was reported by nursing staff and it is reported that his last well known day was the night before. Nursing also felt he was also leaning to the right. ,On examination in the Emergency Room, no focal deficit was found. The patient had an MRI of the brain, which I have reviewed, which shows no acute intracranial findings, extensive small vessel disease and moderate atrophy. Several old infarcts, unchanged since 05/2021 including small 1.2 cm infarct in the right internal capsule and bilateral cerebellar hemisphere infarcts with scattered punctate hypointense foci on gradient echo noted, which is chronic and consistent with old blood products or sequelae of amyloid. CTA of the head and neck shows no acute infarction or hemorrhage, unremarkable CTA of the brain and high-grade stenosis of the left vertebral artery, which is unchanged. There are postop changes involving the thoracic aorta without aneurysmal dilatation of the ascending thoracic aorta measuring up to 4.6 cm. The patient's labs on admission, white count was 12.7 and is now 18, H and H 13/40, normal platelet count. There is a left shift. Electrolytes notable for glucose of 118. Normal transaminases. LDL 92. Urinalysis notable for trace ketones, blood, leukocyte esterase, 10-30 white cells, 10-20 epithelial cells. COVID testing is negative. Chest x-ray showed cardiomegaly with pulmonary vascular congestion and probable trace pleural effusions. PAST MEDICAL HISTORY: As above including hypertension, hyperlipidemia, left rib fracture, parkinsonism, rhabdo, T12 compression fracture. PAST SURGICAL HISTORY: Prosthetic heart valve, bypass surgery, cataract surgery. SOCIAL HISTORY: Nonsmoker, nondrinker. As far as I recall, the patient has no biologic children. He had lived with his [facility] HOME MEDICATIONS: Amlodipine, aspirin, atorvastatin, levodopa/carbidopa twice a day (I had attempted to increase the dose of levodopa, but the patient does not comply), Aricept 5 mg, furosemide, losartan, metoprolol, MiraLax, and Senokot. ALLERGIES: No allergies are noted. CURRENT MEDICATIONS: Include ceftriaxone, Plavix in addition to his home medications. PHYSICAL EXAMINATION: GENERAL: He is awake and alert and feeding himself. He refuses to comply with giving history or having a neurologic exam and will not explain why. VITAL SIGNS: His blood pressure is 133/67, pulse is 60, respirations 19, temperature 37.7 Celsius, O2 sat 95% on room air. NEUROLOGIC: Awake and alert. There is no facial asymmetry while he eats speech is very hypophonic. He is using his right hand to feed himself. No abnormal movement is noted.No resting or task-related tremor is noted. IMPRESSION AND PLAN: 1. This patient has Lewy body dementia and parkinsonism. While living at home, he was a very high fall risk and fell many times.. He was impulsive was very resistant to medication changes. On that background, he may have had a transient ischemic attack, although he has significant small vessel vascular disease and a toxic metabolic or infectious etiology, may have unmasked signs of small vessel vascular disease. Reassuringly, the MRI of the brain does not show any new infarction. I would resume aspirin monotherapy and dc Plavix (previously recommended by myself on admission) for stroke prophylaxis. Rec good control of vascular risk factors.. He does have a history of atrial fibrillation, but he is a very poor candidate for anticoagulants. At least while living home, he was impulsive and would get up on his own and fall frequently. I have recommended against the addition of Plavix given no new stroke and the presence of chronic microhemorrhages which could suggest underlying cerebral amyloidis. 2. Lewy body dementia with parkinsonism. He in general has not had hallucinations and does not require any atypical phenothiazines. I do not know that he would get any further benefit from higher dose of levodopa and he is unlikely to take a higher dose as an outpt., Continue Aricept provided no progressive wt loss or diarrhea. L vert stenosis, asymptomatic, risk factor modification The patient can see me post-discharge in the office if he elects to do so. We will sign off. Job ID: [id number] [facility]
[2022-06-21] MEDS ORDERED: ONDANSETRON INJ 2 MG/ML 2 ML VIAL IV PRN (21:51)
[2022-06-22 06:29] LABS: Basophils # (auto) 0.02 K/uL (0-0.2); Basophils % (auto) 0.1 %; Hematocrit (blood only) 34.5 % (40.1-51.0); Hemoglobin 11.6 g/dl (14.0-18.0); Lymphocytes # (auto) 0.96 K/uL (1.2-3.4); Lymphocytes % (auto) 4.9 %; Mean Corpuscular Hemoglobin 30.9 pg (25.0-34.0); Mean Corpuscular Hgb Conc 33.6 g/dL (32.0-36.0); Mean Corpuscular Volume 91.8 fL (80.0-100.0); Mean Platelet Volume 10.9 fL (9.4-12.4); Monocytes # (auto) 1.89 K/uL (0.24-0.82); Monocytes % (auto) 9.7 %; Neutrophils # (auto) 16.45 K/uL (1.4-6.5); Neutrophils % (auto) 84.3 %; Platelet Count 178 K/uL (130-400); RDW Coefficient of Variation 13.7 % (11.5-14.5); RDW Standard Deviation 46.4 fL (36.4-46.3); Red Blood Count 3.76 M/uL (4.63-6.08); White Blood Count 19.52 K/ul (4.8-10.8)
[2022-06-22 06:52] LABS: BUN Creatinine Ratio 31.8 (10-20); Calcium 8.1 mg/dl (8.5-10.1); Creatinine Clr Calc Pharmacy 57.6 ml/min; Est GFR (African American) 70.1 ml/min; Est GFR (Non-African American) 60.5 ml/min; Potassium 3.6 mmol/L (3.5-5.1)
[2022-06-22] MEDS: ENOXAPARIN INJ 40 MG/0.4 ML SYR SQ SCH (10:10)
[2022-06-22] MEDS: CARBIDOPA/LEVODOPA 25/100MG TAB PO SCH ×2 (10:11→20:11)
[2022-06-22] MEDS: DONEPEZIL HCL 5 MG TAB PO SCH ×2 (10:11→11:28)
[2022-06-22] MEDS: METOPROLOL TARTRATE 25 MG TAB PO SCH ×2 (10:11→11:28)
[2022-06-22] MEDS: ATORVASTATIN 20 MG TAB PO SCH ×2 (10:11→11:28)
[2022-06-22] MEDS: ASPIRIN 81 MG ECTAB PO SCH ×2 (10:11→11:28)
[2022-06-22] MEDS: POLYETHYLENE (MIRALAX) 17 GM PACK PO SCH ×2 (10:15→11:28)
[2022-06-22] MEDS: DOCUSATE SODIUM/SENNA 50/8.6MG TAB PO SCH ×2 (10:15→11:28)
[2022-06-22] MEDS: CLOPIDOGREL BISULFATE 75 MG TAB PO SCH (10:16)
[2022-06-22] MEDS ORDERED: ACETAMINOPHEN 1,000 MG/100 ML VIAL IV STA (11:31)
--- NOTE | 2022-06-22 11:32 | Hospitalist Progress Note ---
Date of Service June 22, 2022 Assessment & Plan (1) Stroke-like symptom: (2) Lewy body dementia: (3) Parkinson's disease: (4) CAD (coronary artery disease): (5) Pacemaker: Plan 86-year-old male with past medical history of Lewy body dementia, sick sinus syndrome with dual-chamber pacemaker, CAD status post CABG, aortic stenosis status post bioprosthetic valve, TAA s/p surgery, hypertension, hyperlipidemia was brought from [place] with concern of right facial droop. Stroke like symptoms Reported by nursing staff. 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 Has a previous study with positive microcav study consistent with a PFO Neurologist recommendations noted TIA is possible Continue aspirin. Discontinue plavix per neuro Continue atorvastatin. Not a candidate for anticoagulation Patient has worsening leukocytosis. UA showed trace leuk est, 10-30WBC Continue ceftriaxone Had fever this AM but declined po tylenol. IV tylenol given Follow up urine and blood cultures in lab Hypertension BP is normal Continue to hold losartan and amlodipine. Chronic conditions; Lewy body dementia/Parkinson'scontinue on carbidopa/levodopa and donepezil CAD status post CABGcontinue on aspirin, Lipitor, beta-ban Code status- DNR/DNI Diet- easy to chew DVT prophylaxis- lovenox Admission and Anticipated Discharge Date Admission Date: June 21, 2022 Subjective Patient seen and examined Patient was awake, alert, oriented to person only Patient is a very poor historian likely due to his dementia Limited ROS Patient declined his AM meds Review of Systems Review of Systems: Unobtainable due to cognitive status Physical Exam Constitutional: + well hydrated; no acute distress Eyes: PERRL, conjunctivae normal, anicteric sclerae ENMT: external ear and nose normal, oropharynx normal Respiratory: normal respiratory effort, lungs clear to auscultation Cardiovascular: Rate/Rhythm: regular rate and regular rhythm S1 S2 Gastrointestinal (Abdomen): normal bowel sounds, soft, nontender, no hepatosplenomegaly Musculoskeletal: No pedal edema Neurologic: Limited exam today as he refused to cooperate Results & Data Results & Data ([facility]) Vital Signs (Past 12 Hours) Vital Signs Temp Pulse Pulse Resp BP Pulse Ox O2 Del Method 06/22/22 07:08 86 06/22/22 07:06 36.7 C 79 18 123/58 L 93 Room Air 06/22/22 03:16 36.5 C 82 18 122/63 94 Room Air Laboratory Results Abnormal lab results 06/22/22 06/22/22 Range/Units 05:47 05:47 WBC 19.52 H (4.8-10.8) K/ul RBC 3.76 L (4.63-6.08) M/uL Hgb 11.6 L (14.0-18.0) g/dl Hct 34.5 L (40.1-51.0) % RDW Std Deviation 46.4 H (36.4-46.3) fL Neut # (Auto) 16.45 H (1.4-6.5) K/uL Lymph # (Auto) 0.96 L (1.2-3.4) K/uL [place] # (Auto) 1.89 H (0.24-0.82) K/uL Immature Gran # (Auto) 0.20 H (0.00-0.02) K/uL BUN 35 H (6-23) mg/dl BUN/Creatinine Ratio 31.8 H (10-20) Glucose 127 H (70-99(Fasting)) mg/dl Calcium 8.1 L (8.5-10.1) mg/dl
[2022-06-22] MEDS ORDERED: ACETAMINOPHEN 1000 MG/100 ML IV IV ONE (11:35)
[2022-06-22] MEDS: cefTRIAXone SODIUM 2,000 MG in DEXTROSE 5% 50 ML IV SCH (15:48)
[2022-06-23 05:54] LABS: Basophils # (auto) 0.04 K/uL (0-0.2); Basophils % (auto) 0.3 %; Hematocrit (blood only) 34.7 % (40.1-51.0); Hemoglobin 11.7 g/dl (14.0-18.0); Immature Granulocytes # (auto) 0.09 K/uL (0.00-0.02); Immature Granulocytes % (auto) 0.7 %; Lymphocytes # (auto) 1.23 K/uL (1.2-3.4); Lymphocytes % (auto) 9.4 %; Mean Corpuscular Hemoglobin 31.1 pg (25.0-34.0); Mean Corpuscular Hgb Conc 33.7 g/dL (32.0-36.0); Mean Corpuscular Volume 92.3 fL (80.0-100.0); Mean Platelet Volume 10.9 fL (9.4-12.4); Monocytes # (auto) 1.61 K/uL (0.24-0.82); Monocytes % (auto) 12.3 %; Neutrophils # (auto) 10.17 K/uL (1.4-6.5); Neutrophils % (auto) 77.3 %; Platelet Count 184 K/uL (130-400); RDW Coefficient of Variation 13.6 % (11.5-14.5); RDW Standard Deviation 46.4 fL (36.4-46.3); Red Blood Count 3.76 M/uL (4.63-6.08); White Blood Count 13.14 K/ul (4.8-10.8)
[2022-06-23 06:25] LABS: BUN Creatinine Ratio 36.4 (10-20); Creatinine Clr Calc Pharmacy 59.2 ml/min; Est GFR (African American) 72.5 ml/min; Est GFR (Non-African American) 62.5 ml/min; Potassium 3.5 mmol/L (3.5-5.1)
[2022-06-23] MEDS: CARBIDOPA/LEVODOPA 25/100MG TAB PO SCH ×2 (08:52→21:17)
[2022-06-23] MEDS: DONEPEZIL HCL 5 MG TAB PO SCH (08:52)
[2022-06-23] MEDS: METOPROLOL TARTRATE 25 MG TAB PO SCH (08:52)
[2022-06-23] MEDS: ATORVASTATIN 20 MG TAB PO SCH (08:53)
[2022-06-23] MEDS: ASPIRIN 81 MG ECTAB PO SCH (08:53)
[2022-06-23] MEDS: DOCUSATE SODIUM/SENNA 50/8.6MG TAB PO SCH (08:53)
[2022-06-23] MEDS: ENOXAPARIN INJ 40 MG/0.4 ML SYR SQ SCH (08:53)
[2022-06-23] MEDS: POLYETHYLENE (MIRALAX) 17 GM PACK PO SCH (08:53)
[2022-06-23] MEDS: ACETAMINOPHEN 325 MG TAB PO PRN ×2 (11:15→23:50)
--- NOTE | 2022-06-23 12:03 | Hospitalist Progress Note ---
Date of Service June 23, 2022 Assessment & Plan (1) Stroke-like symptom: (2) Lewy body dementia: (3) Parkinson's disease: (4) CAD (coronary artery disease): (5) Pacemaker: Plan 86-year-old male with past medical history of Lewy body dementia, sick sinus syndrome with dual-chamber pacemaker, CAD status post CABG, aortic stenosis status post bioprosthetic valve, TAA s/p surgery, hypertension, hyperlipidemia was brought from [place] with concern of right facial droop. Stroke like symptoms Reported by nursing staff. 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 Has a previous study with positive microcav study consistent with a PFO Neurologist recommendations noted TIA is possible Continue aspirin. Discontinue plavix per neuro Continue atorvastatin. Not a candidate for anticoagulation Leukocytosis improving. UA showed trace leuk est, 10-30WBC Continue ceftriaxone Continues to have fever Follow up urine and blood cultures in lab Get tick borne labs Hypertension BP remains normal Continue to hold losartan and amlodipine. Chronic conditions; Lewy body dementia/Parkinson'scontinue on carbidopa/levodopa and donepezil CAD status post CABGcontinue on aspirin, Lipitor, beta-ban Code status- DNR/DNI Diet- easy to chew DVT prophylaxis- lovenox Admission and Anticipated Discharge Date Admission Date: June 21, 2022 Subjective Patient seen and examined Patient was awake, alert, oriented to person only Patient is a very poor historian likely due to his dementia Limited ROS Review of Systems Review of Systems: Unobtainable due to cognitive status Physical Exam Constitutional: + well hydrated; no acute distress Eyes: PERRL, conjunctivae normal, anicteric sclerae ENMT: external ear and nose normal, oropharynx normal Respiratory: normal respiratory effort, lungs clear to auscultation Cardiovascular: Rate/Rhythm: regular rate and regular rhythm S1 S2 Gastrointestinal (Abdomen): normal bowel sounds, soft, nontender, no hepatosplenomegaly Musculoskeletal: No pedal edema Neurologic: PERRL, EOMI Obeyed simple commands. No focal weakness in extremities Psychiatric: Orientation: alert and oriented to person; + not oriented to place and + not oriented to time Results & Data Results & Data ([facility]) Vital Signs (Past 12 Hours) Vital Signs Temp Pulse Pulse Resp BP Pulse Ox O2 Del Method 06/23/22 08:00 38.1 C H 51 L 24 122/59 L 92 Room Air 06/23/22 07:23 81 06/23/22 07:23 Room Air 06/23/22 03:45 38.1 C H 77 22 110/49 L 92 Room Air 06/23/22 00:11 76 Laboratory Results Abnormal lab results 06/23/22 06/23/22 Range/Units 05:34 05:34 WBC 13.14 H (4.8-10.8) K/ul RBC 3.76 L (4.63-6.08) M/uL Hgb 11.7 L (14.0-18.0) g/dl Hct 34.7 L (40.1-51.0) % RDW Std Deviation 46.4 H (36.4-46.3) fL Neut # (Auto) 10.17 H (1.4-6.5) K/uL [place] # (Auto) 1.61 H (0.24-0.82) K/uL Immature Gran # (Auto) 0.09 H (0.00-0.02) K/uL BUN 39 H (6-23) mg/dl BUN/Creatinine Ratio 36.4 H (10-20) Glucose 124 H (70-99(Fasting)) mg/dl Calcium 8.0 L (8.5-10.1) mg/dl
[2022-06-23 14:39] LABS: Lyme Ab IgG w/WB Rflx Negative (Negative); Lyme Ab IgM w/WB Rflx Negative (Negative)
[2022-06-24] MEDS: DONEPEZIL HCL 5 MG TAB PO SCH (08:05)
[2022-06-24] MEDS: METOPROLOL TARTRATE 25 MG TAB PO SCH (08:05)
[2022-06-24] MEDS: ENOXAPARIN INJ 40 MG/0.4 ML SYR SQ SCH (08:05)
[2022-06-24] MEDS: CARBIDOPA/LEVODOPA 25/100MG TAB PO SCH ×2 (08:05→20:17)
[2022-06-24] MEDS: ATORVASTATIN 20 MG TAB PO SCH (08:06)
[2022-06-24] MEDS: ASPIRIN 81 MG ECTAB PO SCH (08:06)
[2022-06-24] MEDS: ACETAMINOPHEN 325 MG TAB PO PRN (08:12)
[2022-06-24] MEDS: DOCUSATE SODIUM/SENNA 50/8.6MG TAB PO SCH (08:12)
[2022-06-24] MEDS: POLYETHYLENE (MIRALAX) 17 GM PACK PO SCH (08:12)
[2022-06-24 08:58] LABS: Hematocrit (blood only) 37.7 % (40.1-51.0); Hemoglobin 12.1 g/dl (14.0-18.0); Mean Corpuscular Hemoglobin 30.6 pg (25.0-34.0); Mean Corpuscular Hgb Conc 32.1 g/dL (32.0-36.0); Mean Corpuscular Volume 95.4 fL (80.0-100.0); Mean Platelet Volume 11.3 fL (9.4-12.4); Platelet Count 206 K/uL (130-400); RDW Coefficient of Variation 13.6 % (11.5-14.5); RDW Standard Deviation 48.4 fL (36.4-46.3); Red Blood Count 3.95 M/uL (4.63-6.08); White Blood Count 14.06 K/ul (4.8-10.8)
[2022-06-24 09:32] LABS: BUN Creatinine Ratio 44.3 (10-20); Calcium 8.7 mg/dl (8.5-10.1); Creatinine Clr Calc Pharmacy 65.3 ml/min; Est GFR (African American) 81.6 ml/min; Est GFR (Non-African American) 70.4 ml/min; Potassium 3.6 mmol/L (3.5-5.1)
--- NOTE | 2022-06-24 10:22 | Hospitalist Progress Note ---
Date of Service June 24, 2022 Assessment & Plan (1) Stroke-like symptom: (2) Lewy body dementia: (3) Parkinson's disease: (4) CAD (coronary artery disease): (5) Pacemaker: Plan 86-year-old male with past medical history of Lewy body dementia, sick sinus syndrome with dual-chamber pacemaker, CAD status post CABG, aortic stenosis status post bioprosthetic valve, TAA s/p surgery, hypertension, hyperlipidemia was brought from [place] with concern of right facial droop. Stroke like symptoms Reported by nursing staff. 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 Has a previous study with positive microcav study consistent with a PFO Neurologist recommendations noted TIA is possible Continue aspirin. Discontinue plavix per neuro Continue atorvastatin. Not a candidate for anticoagulation Leukocytosis. UA showed trace leuk est, 10-30WBC Continue ceftriaxone Continues to have occasional fever. Last was yesterday night Infectious workup negative so far Unclear etiology of fever If recurs, reculture Hypertension BP remains normal Continue to hold losartan and amlodipine. Chronic conditions; Lewy body dementia/Parkinson'scontinue on carbidopa/levodopa and donepezil CAD status post CABGcontinue on aspirin, Lipitor, beta-ban Code status- DNR/DNI Diet- easy to chew DVT prophylaxis- lovenox Admission and Anticipated Discharge Date Admission Date: June 21, 2022 Subjective Patient seen and examined Patient was awake, alert, oriented to person, knows he is in a hospital but does not know name, not oriented to time Patient is a very poor historian likely due to his dementia Limited ROS due to dementia. Denied any complaints Physical Exam Constitutional: + well hydrated; no acute distress Eyes: PERRL, conjunctivae normal, anicteric sclerae ENMT: external ear and nose normal, oropharynx normal Respiratory: normal respiratory effort, lungs clear to auscultation Cardiovascular: Rate/Rhythm: regular rate and regular rhythm S1 S2 Gastrointestinal (Abdomen): normal bowel sounds, soft, nontender, no hepatosplenomegaly Musculoskeletal: No pedal edema Neurologic: PERRL, EOMI, accommodation nl, no face palsy, no dysarthria Psychiatric: Orientation: alert and oriented to person; + not oriented to time Results & Data Results & Data ([facility]) Vital Signs (Past 12 Hours) Vital Signs Temp Pulse Pulse Resp BP BP Pulse Ox 06/24/22 07:42 36.4 C L 58 L 20 148/81 H 99 06/24/22 07:30 64 06/24/22 03:13 36.7 C 60 20 114/74 94 06/24/22 00:31 65 06/23/22 23:40 38.5 C H 90 20 138/82 94 O2 Del Method 06/24/22 07:42 Room Air 06/24/22 07:30 06/24/22 03:13 Room Air 06/24/22 00:31 06/23/22 23:40 Room Air Laboratory Results Abnormal lab results 06/24/22 06/24/22 Range/Units 08:33 08:33 WBC 14.06 H (4.8-10.8) K/ul RBC 3.95 L (4.63-6.08) M/uL Hgb 12.1 L (14.0-18.0) g/dl Hct 37.7 L (40.1-51.0) % RDW Std Deviation 48.4 H (36.4-46.3) fL BUN 43 H (6-23) mg/dl BUN/Creatinine Ratio 44.3 H (10-20) Glucose 121 H (70-99(Fasting)) mg/dl
[2022-06-25 06:11] LABS: Hematocrit (blood only) 40.4 % (40.1-51.0); Hemoglobin 13.2 g/dl (14.0-18.0); Mean Corpuscular Hemoglobin 30.8 pg (25.0-34.0); Mean Corpuscular Hgb Conc 32.7 g/dL (32.0-36.0); Mean Corpuscular Volume 94.2 fL (80.0-100.0); Mean Platelet Volume 11.6 fL (9.4-12.4); Platelet Count 225 K/uL (130-400); RDW Coefficient of Variation 13.3 % (11.5-14.5); RDW Standard Deviation 46.3 fL (36.4-46.3); Red Blood Count 4.29 M/uL (4.63-6.08)
[2022-06-25 06:31] LABS: Calcium 8.6 mg/dl (8.5-10.1); Creatinine Clr Calc Pharmacy 73.7 ml/min; Est GFR (Non-African American) 78.5 ml/min; Potassium 3.5 mmol/L (3.5-5.1)
[2022-06-25] MEDS: ASPIRIN 81 MG ECTAB PO SCH (08:07)
[2022-06-25] MEDS: METOPROLOL TARTRATE 25 MG TAB PO SCH (08:07)
[2022-06-25] MEDS: ATORVASTATIN 20 MG TAB PO SCH (08:07)
[2022-06-25] MEDS: CARBIDOPA/LEVODOPA 25/100MG TAB PO SCH ×2 (08:07→20:27)
[2022-06-25] MEDS: DONEPEZIL HCL 5 MG TAB PO SCH (08:07)
[2022-06-25] MEDS: ENOXAPARIN INJ 40 MG/0.4 ML SYR SQ SCH (08:08)
[2022-06-25] MEDS: POLYETHYLENE (MIRALAX) 17 GM PACK PO SCH (08:11)
[2022-06-25] MEDS: DOCUSATE SODIUM/SENNA 50/8.6MG TAB PO SCH (08:11)
--- NOTE | 2022-06-25 14:37 | Hospitalist Progress Note ---
Date of Service June 25, 2022 Assessment & Plan (1) Stroke-like symptom: (2) Lewy body dementia: (3) Parkinson's disease: (4) CAD (coronary artery disease): (5) Pacemaker: Plan 86-year-old male with past medical history of Lewy body dementia, sick sinus syndrome with dual-chamber pacemaker, CAD status post CABG, aortic stenosis status post bioprosthetic valve, TAA s/p surgery, hypertension, hyperlipidemia was brought from [place] with concern of right facial droop. Stroke like symptoms Reported by nursing staff. 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 Has a previous study with positive microcav study consistent with a PFO Neurologist recommendations noted TIA is possible Continue aspirin. Discontinue plavix per neuro Continue atorvastatin. Not a candidate for anticoagulation Leukocytosis. UA showed trace leuk est, 10-30WBC Infectious workup negative so far Got empirical antibiotic for UTI Fever resolved Hypertension BP remains normal Continue to hold losartan and amlodipine. If BP remains stable, may dc on discharge Chronic conditions; Lewy body dementia/Parkinson'scontinue on carbidopa/levodopa and donepezil CAD status post CABGcontinue on aspirin, Lipitor, beta-bna Code status- DNR/DNI Diet- easy to chew DVT prophylaxis- lovenox Patient is stable for discharge. Awaiting facility to take back patient Admission and Anticipated Discharge Date Admission Date: June 21, 2022 Subjective Patient seen and examined Patient was awake, alert, oriented to person only Patient is a very poor historian likely due to his dementia Limited ROS due to dementia. Denied any complaints Physical Exam Constitutional: + well hydrated; no acute distress Eyes: PERRL, conjunctivae normal, anicteric sclerae ENMT: external ear and nose normal, oropharynx normal Respiratory: normal respiratory effort, lungs clear to auscultation Cardiovascular: Rate/Rhythm: regular rate and regular rhythm S1 S2 Gastrointestinal (Abdomen): normal bowel sounds, soft, nontender, no hepatosplenomegaly Musculoskeletal: No pedal edema Neurologic: PERRL, EOMI, accommodation nl, no face palsy, no dysarthria Psychiatric: Orientation: alert and oriented to person; + not oriented to place and + not oriented to time Results & Data Results & Data ([facility]) Vital Signs (Past 12 Hours) Vital Signs Temp Pulse Pulse Resp BP BP Pulse Ox 06/25/22 11:40 36.7 C 60 18 103/61 93 06/25/22 09:58 69 06/25/22 07:42 36.5 C 67 18 117/68 95 06/25/22 04:30 68 06/25/22 03:04 36.7 C 69 16 150/83 H 96 O2 Del Method 06/25/22 11:40 Room Air 06/25/22 09:58 06/25/22 07:42 Room Air 06/25/22 04:30 06/25/22 03:04 Room Air Laboratory Results Abnormal lab results 06/25/22 06/25/22 Range/Units 05:21 05:21 RBC 4.29 L (4.63-6.08) M/uL Hgb 13.2 L (14.0-18.0) g/dl BUN 37 H (6-23) mg/dl BUN/Creatinine Ratio 43.0 H (10-20) Glucose 108 H (70-99(Fasting)) mg/dl
[2022-06-26] MEDS: DONEPEZIL HCL 5 MG TAB PO SCH (08:13)
[2022-06-26] MEDS: METOPROLOL TARTRATE 25 MG TAB PO SCH (08:13)
[2022-06-26] MEDS: ASPIRIN 81 MG ECTAB PO SCH (08:13)
[2022-06-26] MEDS: CARBIDOPA/LEVODOPA 25/100MG TAB PO SCH ×2 (08:13→21:55)
[2022-06-26] MEDS: ATORVASTATIN 20 MG TAB PO SCH (08:14)
[2022-06-26] MEDS: ENOXAPARIN INJ 40 MG/0.4 ML SYR SQ SCH (09:00)
--- NOTE | 2022-06-26 09:50 | Hospitalist Progress Note ---
Date of Service June 26, 2022 Assessment & Plan (1) Stroke-like symptom: (2) Lewy body dementia: (3) Parkinson's disease: (4) CAD (coronary artery disease): (5) Pacemaker: Plan 86-year-old male with past medical history of Lewy body dementia, sick sinus syndrome with dual-chamber pacemaker, CAD status post CABG, aortic stenosis status post bioprosthetic valve, TAA s/p surgery, hypertension, hyperlipidemia was brought from [place] with concern of right facial droop. Stroke like symptoms Reported by nursing staff. 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 Has a previous study with positive microcav study consistent with a PFO Neurologist recommendations noted TIA is possible Continue aspirin. Continue atorvastatin. Not a candidate for anticoagulation Leukocytosis. UA showed trace leuk est, 10-30WBC Infectious workup negative so far Got empirical antibiotic for UTI Fever resolved Hypertension BP remains normal Continue to hold losartan and amlodipine. If BP remains stable, may dc on d ischarge Chronic conditions; Lewy body dementia/Parkinson'scontinue on carbidopa/levodopa and donepezil CAD status post CABGcontinue on aspirin, Lipitor, beta-ban Code status- DNR/DNI Diet- easy to chew DVT prophylaxis- lovenox Patient is stable for discharge. Awaiting facility to take back patient Admission and Anticipated Discharge Date Admission Date: June 21, 2022 Subjective Patient seen and examined Alert and oriented to person only Denied any complaints Review of Systems Review of Systems: Unobtainable due to cognitive status Physical Exam Constitutional: + well hydrated; no acute distress Eyes: PERRL, conjunctivae normal, anicteric sclerae ENMT: external ear and nose normal, oropharynx normal Respiratory: normal respiratory effort, lungs clear to auscultation Cardiovascular: Rate/Rhythm: regular rate and regular rhythm S1 S2 Gastrointestinal (Abdomen): normal bowel sounds, soft, nontender, no hepatosplenomegaly Musculoskeletal: No pedal edema Neurologic: PERRL, EOMI, accommodation nl, no face palsy, no dysarthria Psychiatric: Orientation: alert and oriented to person; + not oriented to place and + not oriented to time Results & Data Results & Data ([facility]) Vital Signs (Past 12 Hours) Vital Signs Temp Pulse Pulse Resp BP BP Pulse Ox 06/26/22 06:36 37.0 C 67 16 137/76 92 06/26/22 02:27 36.9 C 62 18 100/65 93 06/25/22 23:33 71 06/25/22 23:01 36.8 C 72 16 123/73 94 O2 Del Method 06/26/22 06:36 Room Air 06/26/22 02:27 Room Air 06/25/22 23:33 06/25/22 23:01 Room Air
[2022-06-26] MEDS: POLYETHYLENE (MIRALAX) 17 GM PACK PO SCH (14:31)
[2022-06-26] MEDS: DOCUSATE SODIUM/SENNA 50/8.6MG TAB PO SCH (14:31)
[2022-06-27] MEDS: DOCUSATE SODIUM/SENNA 50/8.6MG TAB PO SCH (08:57)
[2022-06-27] MEDS: DONEPEZIL HCL 5 MG TAB PO SCH (08:57)
[2022-06-27] MEDS: METOPROLOL TARTRATE 25 MG TAB PO SCH (08:57)
[2022-06-27] MEDS: ATORVASTATIN 20 MG TAB PO SCH (08:57)
[2022-06-27] MEDS: CARBIDOPA/LEVODOPA 25/100MG TAB PO SCH ×2 (08:58→20:11)
[2022-06-27] MEDS: POLYETHYLENE (MIRALAX) 17 GM PACK PO SCH (08:58)
[2022-06-27] MEDS: ASPIRIN 81 MG ECTAB PO SCH (08:58)
[2022-06-27] MEDS: ENOXAPARIN INJ 40 MG/0.4 ML SYR SQ SCH (08:58)
--- NOTE | 2022-06-27 13:35 | Hospitalist Progress Note ---
Date of Service June 27, 2022 Assessment & Plan (1) Stroke-like symptom: (2) Lewy body dementia: (3) Parkinson's disease: (4) CAD (coronary artery disease): (5) Pacemaker: Plan 86-year-old male with past medical history of Lewy body dementia, sick sinus syndrome with dual-chamber pacemaker, CAD status post CABG, aortic stenosis status post bioprosthetic valve, TAA s/p surgery, hypertension, hyperlipidemia was brought from [place] 06/20 with concern of right facial droop. He is being managed for the following: Stroke like symptoms Reported by nursing staff. 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 Had a previous study with positive microcavitation study consistent with a PFO Neurologist recommendations noted, TIA is possible, c/w aspirin only Continue atorvastatin. Not a candidate for anticoagulation due to frequent falls. Leukocytosis UA showed trace leuk est, 10-30WBC Infectious workup negative Got empirical antibiotic for UTI Fever resolved Hypertension BP remains normal Continue to hold losartan and amlodipine. If BP remains stable, may dc on discharge Chronic conditions; Lewy body dementia/Parkinson'scontinue on carbidopa/levodopa and donepezil CAD status post CABGcontinue on aspirin, Lipitor, beta-ban Code status- DNR/DNI Diet- easy to chew DVT prophylaxis- lovenox Patient is stable for discharge. Awaiting facility to take back patient or SNF placement. Admission and Anticipated Discharge Date Admission Date: June 21, 2022 Subjective Patient seen and examined at bedside as a follow-up of strokelike symptoms, leukocytosis and history of Lewy body dementia. Patient was lying upright in bed, alert, oriented x person only, reports not eating his breakfast but outpatient chart reports good percentage of breakfast intake, patient denies any complaints of discomfort or pain. Per RN, pt eating OK. Physical Exam Physical Exam: GENERAL: Awake and alert. NAD, on RA. Slow reaction time. HEENT: No pallor, no icterus. Pupils equal, round and reactive to light. Oral mucosa moist. NECK: No JVD, no neck masses. HEART: S1 and S2 heard. Regular rate and rhythm. No murmur, no gallop. RESPIRATORY SYSTEM: Normal AP diameter. No accessory muscle use. No wheezing, no crackles. ABDOMEN: Soft, bowel sounds present, nontender, no distention. CENTRAL NERVOUS SYSTEM: No facial droop. Speech is clear. Obeys simple commands. Moves extremities. EXTREMITIES: No edema, no erythema seen. Results & Data Results & Data ([facility]) Vital Signs (Past 12 Hours) Vital Signs Temp Pulse Resp BP BP Pulse Ox O2 Del Method 06/27/22 11:21 36.7 C 64 14 132/71 95 Room Air 06/27/22 07:47 36.5 C 60 18 129/72 93 Room Air 06/27/22 04:14 36.3 C L 79 18 144/86 H 96 Room Air
[2022-06-27 15:07] LABS: Babesia microti DNA Not Detected (Not Detected)
[2022-06-28 07:12] LABS: Hematocrit (blood only) 33.6 % (40.1-51.0); Hemoglobin 10.9 g/dl (14.0-18.0); Mean Corpuscular Hemoglobin 30.7 pg (25.0-34.0); Mean Corpuscular Hgb Conc 32.4 g/dL (32.0-36.0); Mean Corpuscular Volume 94.6 fL (80.0-100.0); Platelet Count 266 K/uL (130-400); RDW Coefficient of Variation 13.3 % (11.5-14.5); RDW Standard Deviation 45.9 fL (36.4-46.3); Red Blood Count 3.55 M/uL (4.63-6.08); White Blood Count 9.04 K/ul (4.8-10.8)
[2022-06-28 07:33] LABS: BUN Creatinine Ratio 35.8 (10-20); Calcium 8.1 mg/dl (8.5-10.1); Creatinine Clr Calc Pharmacy 78.2 ml/min; Est GFR (African American) 93.3 ml/min; Est GFR (Non-African American) 80.5 ml/min; Magnesium 1.9 mg/dl (1.7-2.4); Phosphorus 2.8 mg/dl (2.5-4.9); Potassium 3.6 mmol/L (3.5-5.1)
[2022-06-28] MEDS: LOSARTAN POTASSIUM 50 MG TAB PO SCH ×2 (08:37→20:08)
[2022-06-28] MEDS: METOPROLOL TARTRATE 25 MG TAB PO SCH (08:38)
[2022-06-28] MEDS: ASPIRIN 81 MG ECTAB PO SCH (08:38)
[2022-06-28] MEDS: CARBIDOPA/LEVODOPA 25/100MG TAB PO SCH ×2 (08:38→20:08)
[2022-06-28] MEDS: DOCUSATE SODIUM/SENNA 50/8.6MG TAB PO SCH (08:38)
[2022-06-28] MEDS: DONEPEZIL HCL 5 MG TAB PO SCH (08:38)
[2022-06-28] MEDS: ATORVASTATIN 20 MG TAB PO SCH (08:38)
[2022-06-28] MEDS: ENOXAPARIN INJ 40 MG/0.4 ML SYR SQ SCH (08:38)
[2022-06-28] MEDS: POLYETHYLENE (MIRALAX) 17 GM PACK PO SCH (08:39)
--- NOTE | 2022-06-28 17:34 | Hospitalist Progress Note ---
Date of Service June 28, 2022 Assessment & Plan (1) Stroke-like symptom: (2) Lewy body dementia: (3) Parkinson's disease: (4) CAD (coronary artery disease): (5) Pacemaker: Plan 86-year-old male with past medical history of Lewy body dementia, sick sinus syndrome with dual-chamber pacemaker, CAD status post CABG, aortic stenosis status post bioprosthetic valve, TAA s/p surgery, hypertension, hyperlipidemia was brought from [place] 06/20 with concern of right facial droop. He is being managed for the following: Stroke like symptoms Reported by nursing staff. 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 Had a previous study with positive microcavitation study consistent with a PFO Neurologist recommendations noted, TIA is possible, c/w aspirin only Continue atorvastatin. Not a candidate for anticoagulation due to frequent falls. Leukocytosis UA showed trace leuk est, 10-30WBC Infectious workup negative Got empirical antibiotic for UTI Fever resolved Hypertension BP remains normal Continue to hold amlodipine. BP on higher side, resuming losartan today. Chronic conditions; Lewy body dementia/Parkinson'scontinue on carbidopa/levodopa and donepezil CAD status post CABGcontinue on aspirin, Lipitor, beta-ban Code status- DNR/DNI Diet- easy to chew DVT prophylaxis- lovenox Patient is stable for discharge. Awaiting facility to take back patient or SNF placement. Admission and Anticipated Discharge Date Admission Date: June 21, 2022 Subjective Patient seen and examined at bedside as a follow-up of strokelike symptoms, leukocytosis and history of Lewy body dementia. Patient was lying semi-upright in bed, alert, oriented x self, did not eati his breakfast, patient denies any complaints of discomfort or pain. ROS n/a d/t cognition status. Physical Exam Physical Exam: GENERAL: Awake and alert. NAD, on RA. Slow reaction time. HEENT: No pallor, no icterus. Pupils equal, round and reactive to light. Oral mucosa moist. NECK: No JVD, no neck masses. HEART: S1 and S2 heard. Regular rate and rhythm. No murmur, no gallop. RESPIRATORY SYSTEM: Normal AP diameter. No accessory muscle use. No wheezing, no crackles. ABDOMEN: Soft, bowel sounds present, nontender, no distention. CENTRAL NERVOUS SYSTEM: No facial droop. Speech is clear. Obeys simple commands. Moves extremities. EXTREMITIES: No edema, no erythema seen. Results & Data Results & Data ([facility]) Vital Signs (Past 12 Hours) Vital Signs Temp Pulse Pulse Resp BP Pulse Ox O2 Del Method 06/28/22 15:30 36.8 C 67 18 167/84 H 95 Room Air 06/28/22 14:09 60 06/28/22 06:09 61 06/28/22 11:05 36.8 C 61 17 133/72 95 Room Air 06/28/22 08:15 37.1 C 65 18 165/76 H 93 Room Air
[2022-06-29] MEDS ORDERED: ONDANSETRON 4 MG OD TAB PO PRN (00:49)
[2022-06-29] MEDS: DONEPEZIL HCL 5 MG TAB PO SCH (08:09)
[2022-06-29] MEDS: ASPIRIN 81 MG ECTAB PO SCH (08:09)
[2022-06-29] MEDS: METOPROLOL TARTRATE 25 MG TAB PO SCH (08:09)
[2022-06-29] MEDS: ATORVASTATIN 20 MG TAB PO SCH (08:09)
[2022-06-29] MEDS: LOSARTAN POTASSIUM 50 MG TAB PO SCH ×2 (08:09→21:26)
[2022-06-29] MEDS: ENOXAPARIN INJ 40 MG/0.4 ML SYR SQ SCH (08:10)
[2022-06-29] MEDS: CARBIDOPA/LEVODOPA 25/100MG TAB PO SCH ×2 (08:10→21:26)
[2022-06-29] MEDS: POLYETHYLENE (MIRALAX) 17 GM PACK PO SCH (08:15)
[2022-06-29] MEDS: DOCUSATE SODIUM/SENNA 50/8.6MG TAB PO SCH (08:16)
[2022-06-29] MEDS: FUROSEMIDE 20 MG TAB PO SCH (08:58)
--- NOTE | 2022-06-29 17:03 | Hospitalist Progress Note ---
Date of Service June 29, 2022 Assessment & Plan (1) Stroke-like symptom: (2) Lewy body dementia: (3) Parkinson's disease: (4) CAD (coronary artery disease): (5) Pacemaker: Plan 86-year-old male with past medical history of Lewy body dementia, sick sinus syndrome with dual-chamber pacemaker, CAD status post CABG, aortic stenosis status post bioprosthetic valve, TAA s/p surgery, hypertension, hyperlipidemia was brought from [place] 06/20 with concern of right facial droop. He is being managed for the following: Stroke like symptoms Reported by nursing staff. 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 Had a previous study with positive microcavitation study consistent with a PFO Neurologist recommendations noted, TIA is possible, c/w aspirin only Continue atorvastatin. Not a candidate for anticoagulation due to frequent falls. Leukocytosis UA showed trace leuk est, 10-30WBC Infectious workup negative Got empirical antibiotic for UTI Fever resolved Hypertension BP remains normal , home meds all resumed as BP were on higher side. Chronic conditions; Lewy body dementia/Parkinson'scontinue on carbidopa/levodopa and donepezil CAD status post CABGcontinue on aspirin, Lipitor, beta-ban Code status- DNR/DNI Diet- easy to chew DVT prophylaxis- lovenox Patient is stable for discharge. Awaiting facility to take back patient or SNF placement. Admission and Anticipated Discharge Date Admission Date: June 21, 2022 Subjective Patient seen and examined at bedside as a follow-up of strokelike symptoms, leukocytosis and history of Lewy body dementia. Patient was lying semi-upright in bed, alert, oriented x self, ate 100% of his breakfast, patient denies any complaints of discomfort or pain. ROS n/a d/t cognition status. Physical Exam 2 Physical Exam: GENERAL: Awake and alert. NAD, on RA. Slow reaction time. HEENT: No pallor, no icterus. Pupils equal, round and reactive to light. Oral mucosa moist. NECK: No JVD, no neck masses. HEART: S1 and S2 heard. Regular rate and rhythm. No murmur, no gallop. RESPIRATORY SYSTEM: Normal AP diameter. No accessory muscle use. No wheezing, no crackles. ABDOMEN: Soft, bowel sounds present, nontender, no distention. CENTRAL NERVOUS SYSTEM: No facial droop. Speech is clear. Obeys simple commands. Moves extremities. EXTREMITIES: No edema, no erythema seen. Results & Data Results & Data ([facility]) Vital Signs (Past 12 Hours) Vital Signs Temp Pulse Pulse Resp BP BP Pulse Ox 06/29/22 16:11 36.9 C 60 16 150/79 H 97 06/29/22 12:23 36.8 C 60 17 149/76 H 97 06/29/22 10:00 06/29/22 09:49 36.5 C 61 18 141/72 H 94 06/29/22 07:40 36.9 C 64 18 158/95 H 97 06/29/22 07:16 60 O2 Del Method 06/29/22 16:11 Room Air 06/29/22 12:23 Room Air 06/29/22 10:00 Room Air 06/29/22 09:49 Room Air 06/29/22 07:40 Room Air 06/29/22 07:16
[2022-06-29] MEDS ORDERED: amLODIPine BESYLATE 5 MG TAB PO SCH (21:00)
[2022-06-30] MEDS: METOPROLOL TARTRATE 25 MG TAB PO SCH (07:46)
[2022-06-30] MEDS: LOSARTAN POTASSIUM 50 MG TAB PO SCH (07:46)
[2022-06-30] MEDS: CARBIDOPA/LEVODOPA 25/100MG TAB PO SCH (07:47)
[2022-06-30] MEDS: FUROSEMIDE 20 MG TAB PO SCH (07:47)
[2022-06-30] MEDS: ASPIRIN 81 MG ECTAB PO SCH (07:47)
[2022-06-30] MEDS: DOCUSATE SODIUM/SENNA 50/8.6MG TAB PO SCH (07:47)
[2022-06-30] MEDS: DONEPEZIL HCL 5 MG TAB PO SCH (07:47)
[2022-06-30] MEDS: ATORVASTATIN 20 MG TAB PO SCH (07:47)
[2022-06-30] MEDS: ENOXAPARIN INJ 40 MG/0.4 ML SYR SQ SCH (07:48)
[2022-06-30] MEDS: POLYETHYLENE (MIRALAX) 17 GM PACK PO SCH (07:49)
[2022-06-30] MEDS ORDERED: STROKE PATIENT DISCHARGE STA (16:43)
--- NOTE | 2022-06-30 16:45 | Discharge Summary ---
Date of Service June 30, 2022 Admission HPI Per Admitting Provider Patient is a 86-year-old male with past medical history of Lewy body dementia, sick sinus syndrome with dual-chamber pacemaker, CAD status post CABG, aortic stenosis status post bioprosthetic valve, TAA s/p surgery, hypertension, hyperlipidemia was brought from [place] with concern of right facial droop. As per the staff in the facility, patient was noted to have right facial droop and was leaning to the right side which prompted them to call EMS. His last well- known was last night. Patient was examined and assessed at bedside, he was lying on the bed comfortably. He was not oriented to time, place and person. He was able to tell his name and his date of . He intermittently follows some simple commands including moving his arms and legs. He denies any discomfort at the moment. He was not able to provide any further information. Further information was taken from his ( Ms. Hdz) over the phone. He was last seen by her and her friend 3 to 4 days back. He was at his baseline at that time. Patient requires assistance for most of his ADLs. patient was last admitted in August 2021 for traumatic rhabdomyolysis and left rib fracture.Patient has multiple comorbidities including sick sinus syndrome for which he underwent pacemaker placement in 2011 with degenerative changes in 08/2021, aortic aneurysm repair, CAD status post CABG. Admission Exam Per Admitting Provider Constitutional: Awake, oriented to self, not oriented to time and place. Head: Normocephalic, Atraumatic Eyes: PERRL, conjunctivae normal, anicteric sclerae ENMT: external ear and nose normal, oropharynx normal Neck: trachea midline, no thyromegaly normal visual inspection Respiratory: normal respiratory effort, lungs clear to auscultation, no wheeze, rales, rhonchi. Normal insp/exp effort, no accessory muscle use Cardiovascular: RRR, no murmur, no edema Vessels: no JVD or carotid bruit Chest: Scar love present from previous surgery. Pacemaker present on left upper chest. Abdomen: normal bowel sounds, soft, nontender, no hepatosplenomegaly Musculoskeletal: no cyanosis or clubbing, Skin: no rashes, warm and dry normal turgor Neurologic:Awake, oriented to self. Not oriented to time place and person Questionable facial droop on right side. Doesn't follow command when asked to smile or puff his cheekcs PERRLA. Able to lift his right and left arm up on command. Unable to follow most of the commands. Psychiatric: A+Ox3, euthymic affect Lymphatic: no cervical or axillary lymphadenopathy : deferred Principal Diagnosis Strokelike symptoms Leukocytosis Discharge Exam GENERAL: Awake and alert. NAD, on RA. Slow reaction time. Weak voice HEENT: No pallor, no icterus. Pupils equal, round and reactive to light. Oral mucosa moist. NECK: No JVD, no neck masses. HEART: S1 and S2 heard. Regular rate and rhythm. No murmur, no gallop. RESPIRATORY SYSTEM: Normal AP diameter. No accessory muscle use. No wheezing, no crackles. ABDOMEN: Soft, bowel sounds present, nontender, no distention. CENTRAL NERVOUS SYSTEM: No facial droop. Speech is clear. Obeys simple commands. Moves extremities. EXTREMITIES: No edema, no erythema seen. Discharge Data Allergies Allergy/AdvReac Type Severity Reaction Status Date / Time No Known Allergies Allergy Verified 08/27/21 19:28 Consultations 06/20/22 14:19 ED Decision to Admit Stat 06/20/22 16:01 Consult Neurology Routine Ordered Studies 06/20/22 10:14 CT angio head w con Stat CT angio neck with con Stat CT head/brain wo con Stat 06/21/22 00:00 MR brain wo con Routine Hospital Course (1) Stroke-like symptom: (2) Lewy body dementia: (3) Parkinson's disease: (4) CAD (coronary artery disease): (5) Pacemaker: Plan 86-year-old male with past medical history of Lewy body dementia, sick sinus syndrome with dual-chamber pacemaker, CAD status post CABG, aortic stenosis status post bioprosthetic valve, TAA s/p surgery, hypertension, hyperlipidemia was brought from [place] 06/20 with concern of right facial droop. He was managed for the following: Stroke like symptoms Reported by nursing staff. 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 Had a previous study with positive microcavitation study consistent with a PFO Neurologist recommendations noted, TIA is possible, c/w aspirin only Continue atorvastatin. Not a candidate for anticoagulation due to frequent falls. Patient hemodynamically stable on the day of discharge. Leukocytosis UA showed trace leuk est, 10-30WBC Infectious workup negative Got empirical antibiotic for UTI Fever resolved Hypertension BP remains normal , home meds all resumed as BP were on higher side. Chronic conditions; Lewy body dementia/Parkinson'scontinue on carbidopa/levodopa and donepezil CAD status post CABGcontinue on aspirin, Lipitor, beta-ban Code status- DNR/DNI Diet- easy to chew Patient being discharged to alf with following instructions at the point of discharge: Follow-up with your primary care physician within a week time. Continue with physical therapy at SNF. Take your medications as prescribed. Total Time Total Time Spent Total Time Spent (In Minutes): 35 Discharge Plan Discharge Items Patient Disposition: Transfer Group Home Fac Reason For Visit: STROKE RULE OUT Discharge Diagnosis: Strokelike symptoms Leukocytosis Activity: Resume your previous activity Non-emergency contact: Primary Care Provider Call non-emergency contact if: you have any medication questions, your symptoms worsen and your temperature is above 101 Follow-up/Referrals: Candi Prado MD [Physician] - (Date & Time 07/06/2022 1:00 PM Provider Candi Prado MD Department Neurology [facility] ) Gely [place] [Primary Care Provider] - Diet: Regular Diet Texture: Easy to Chew Addtl Attending Provider Instructions: Follow-up with your primary care physician within a week time. Continue with physical therapy at SNF. Take your medications as prescribed. Pending Studies at Discharge: No Stand-Alone Forms: Medications to Prevent Stroke, My [facility] Skilled Items Patient informed of condition?: Yes DNR: Yes Discharge Level of Care: Skilled Communicable Disease: No Discharge Prognosis: Stable Lines: None Urinary Catheter: No Medications and DC Order Prescriptions: Continued amlodipine [Norvasc] 5 mg Tablet 5 mg PO HS Qty: 30 0RF Rx Instructions: HOLD FOR SBP < 110 losartan 50 mg Tablet 50 mg PO BID Qty: 60 0RF Rx Instructions: hold for sbp < 110 polyethylene glycol 3350 [Miralax] 17 gram Powder In Packet 17 g PO DAILY Qty: 30 0RF Rx Instructions: hold for loose stool sennosides-docusate sodium [Senokot-S] 8.6-50 mg Tablet 1 tab PO QAM Qty: 30 0RF Rx Instructions: hold for loose stool atorvastatin [Lipitor] 20 mg tablet 20 mg PO QPM Qty: 30 0RF donepezil 5 mg tablet 5 mg PO DAILY Qty: 30 0RF aspirin 81 mg Tablet,Delayed Release (Dr/Ec) 81 mg PO DAILY Qty: 30 0RF carbidopa-levodopa 25-100 mg tablet 1 tab PO BID Qty: 60 0RF Rx Instructions: PER metoprolol tartrate 25 mg tablet 25 mg PO DAILY Qty: 30 0RF furosemide 20 mg tablet 20 mg PO QAM Qty: 30 0RF Discharge Orders: Discharge Order (Routine); Ordered 06/30/22 Ordered By: Marvel Manzanares Admission Data Admit Date/Time: 06/21/22 15:42 Attending Provider: Marvel Manzanares Admit Provider: Pavel Mcginnis Primary Care Provider: [place] Other Providers: [employer] ; [facility] [place] ; [facility] ; [facility] ; Pavel Mcginnis ; Candi Prado
--- NOTE | 2022-07-09 07:17 | Coding Query ---
CODING QUERY To promote full compliance with coding requirements relating to patient care, provider participation is requested in all cases of cpc coder uncertainty. Please assist us with the question(s) below: Coding Question(s): Pt admitted with facial droop. Neuro Consult 06/21 documented possible TIA. Please document, if known or suspected, the etiology of the facial droop. Thanks for your help! Jules Harrison [facility] Physician's Response(s): Principal Diagnosis: "that condition established after study, to be chiefly responsible for occasioning the admission of the patient to the hospital for care." Co-Existing Principal Diagnosis: "when two or more diagnoses equally meet the criteria for principal diagnosis as determined by the circumstances of admission, diagnostic work up, and/or therapy provided, and the Alphabetic Index, Tabular List, or another coding guideline does not provide sequencing direction, any one of the diagnoses may be sequenced first." "When the physician has documented what appears to be a current diagnosis in the body of the record, but has not included the diagnosis in the final diagnostic statement, the physician should be asked whether the diagnosis should be added." (Source [facility]oding [facility] 2 QTR90. p3-4) TREVOR
== END 2022-06-30 20:23 | DRG 69 ==
LOC: ED 09:36 → EDINP 09:36 → SUATTDRO 15:13 → EDINP 06-21 08:08 → 2E 06-21 10:24 → SUATTDRO 06-21 15:42 → 2N 06-23 11:33
DX: N39.0 Urinary tract infection, site not specified; Z66 Do not resuscitate; R29.810 Facial weakness; Z95.2 Presence of prosthetic heart valve; I10 Essential (primary) hypertension; G45.9 Transient cerebral ischemic attack, unspecified; Z95.1 Presence of aortocoronary bypass graft; Z95.0 Presence of cardiac pacemaker; I49.5 Sick sinus syndrome; Q21.1 Atrial septal defect; F02.80 Dementia in other diseases classified elsewhere, unspecified severity, without behavioral disturbance, psychotic disturbance, mood disturbance, and anxiety; Z79.82 Long term (current) use of aspirin; I25.10 Atherosclerotic heart disease of native coronary artery without angina pectoris; G31.83 Neurocognitive disorder with Lewy bodies

== ENCOUNTER 2022-12-19 04:10 | Inpatient (IN) ==
--- NOTE | 2022-12-19 04:18 | Emergency Department Note ---
History of Present Illness General Chief complaint: Illness Stated complaint: AMS Time Seen by Provider: 12/19/22 04:15 History of Present Illness 87-year-old male presents emergency department from a dementia unit reportedly at 230 this evening he needed to get up to go to the bathroom and required 3 of the staff members to help him and he was extremely weak. They reportedly took his blood pressure was 180/150 EMS got a blood pressure of 138/74. Patient is unable to give any history he is in the dementia unit with Lewy body dementia. There is been no reported trauma no reported fall this evening EMS states that they were able to have 2 people assist him to the stretcher. Home Medications Medication Instructions Recorded Confirmed Type atorvastatin 20 mg tablet (Lipitor) 20 mg PO QPM #30 tabs 09/11/21 09/12/22 Rx carbidopa 25 mg-levodopa 100 mg 1 tab PO BID #60 tabs 09/11/21 09/12/22 Rx tablet furosemide 20 mg tablet 20 mg PO QAM #30 tabs 09/11/21 09/12/22 Rx losartan 50 mg tablet 50 mg PO BID #60 tabs 09/11/21 09/12/22 Rx sennosides 8.6 mg-docusate sodium 1 tab PO QAM #30 tabs 09/11/21 09/12/22 Rx 50 mg tablet (Senokot-S) acetaminophen 325 mg tablet 650 mg PO Q4H PRN PAIN/FEVER 09/12/22 09/12/22 History (Tylenol) amlodipine 5 mg tablet (Norvasc) 5 mg PO QPM 09/12/22 09/12/22 History aspirin 81 mg tablet,delayed 81 mg PO QAM 09/12/22 09/12/22 History release donepezil 5 mg tablet 5 mg PO QAM 09/12/22 09/12/22 History metoprolol tartrate 25 mg tablet 25 mg PO QAM 09/12/22 09/12/22 History nirmatrelvir 300 mg (150 mg See Rx Instructions PO .COMPLEX 09/12/22 Rx x2)-ritonavir 100 mg tablet,dose #30 ea pack(EUA) (Paxlovid) polyethylene glycol 3350 17 gram 17 g PO QAM 09/12/22 09/12/22 History oral powder packet (Miralax) Allergies Allergy/AdvReac Type Severity Reaction Status Date / Time No Known Allergies Allergy Verified 09/12/22 19:38 Past Med/Surg History Medical History Aortic aneurysm Aortic stenosis Atrial fibrillation CAD (coronary artery disease) Dementia Hemolytic anemia HLD (hyperlipidemia) HTN (hypertension) Left rib fracture [facility] resident Pacemaker Pacemaker battery depletion Parkinsons disease Rhabdomyolysis T12 compression fracture Surgical History H/O prosthetic heart valve History of cataract surgery right Hx of heart bypass surgery Social History Smoking Status: Never smoker Hx Substance Use: No Preferred Language: Polish Communication Ability: Impaired Visual Impairment: No Limitations Hearing Ability: Normal 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 Beliefs That Will Affect Care: None marital status: Current Living Situation: Spouse Current Living Situation Comment: resident at [facility] Feels Safe at Home: Yes Assistive Devices: Walker and Wheelchair Review of Systems Unobtainable due to cognitive status Physical Exam Vital Signs Vital Signs - 24 hr 12/19/22 04:13 12/19/22 04:23 12/19/22 05:03 Temperature 38.2 C H Temperature Source Oral Pulse Rate 63 70 Respiratory Rate 20 16 Blood Pressure 135/74 108/64 Blood Pressure Mean 94 78 Pulse Oximetry 97 97 94 Oxygen Delivery Method Room Air Room Air Sepsis Recent Fever Within 48 Hours Yes Sepsis New/Unexplained Change in Mental Status N/A Sepsis Action Taken by Nursing No Action Required GENERAL: Patient is awake alert in no acute distress EYES: The conjunctivae are clear. The pupils are round and reactive. EARS, NOSE, MOUTH AND THROAT: The nose is without any evidence of any deformity. Mucous membranes are moist. Tongue is midline. NECK: The neck is nontender and supple. RESPIRATORY: Normal respiratory effort is noted there is no evidence of wheezing rhonchi or rales CARDIOVASCULAR: Regular rate and rhythm noted there no murmurs rubs or gallops normal S1 normal S2. GASTROINTESTINAL: The abdomen is soft. Abdomen is nontender. PELVIS: The Pelvis is stable. No tenderness to palpation is noted. BACK: No midline tenderness or or step-off noted range of motion in flexion extension as well as rotation no signs of muscle spasm noted MUSCULOSKELETAL/EXTREMITIES: There is no evidence of gross deformity full range of motion is noted in the hips and shoulders. SKIN: There is no obvious evidence of any rash. There are no petechiae, pallor o r cyanosis noted. NEUROLOGIC: Patient is awake alert oriented x1 Course Reevaluation(s) Reevaluation #1: Patient is resting in no distress he is a poor historian he does not answer questions as to any of his presentation. Patient has an elevated white blood cell count and questionable right lower lobe infiltrate he was started on IV Rocephin. Patient has an elevated troponin but a nonischemic EKG Time: 05:29 Consultations Consultation #1: [facility] accepts the patient for admission Time: 05:29 Administered Medications Ceftriaxone Sodium (Rocephin) 2,000 mg in 70 mls @ 140 mls/hr IV NOW STA Stop: 12/19/22 05:32 Last Admin: 12/19/22 05:13 Dose: 140 mls/hr Documented By: ASTER Sodium Chloride (Nss 1000ml) 1,000 mls @ 999 mls/hr IV .Q1H1M ONE Stop: 12/19/22 06:13 Last Admin: 12/19/22 05:15 Dose: 999 mls/hr Documented By: ASTER Discontinued Medications Acetaminophen (Ofirmev) 1,000 mg in 100 mls @ 400 mls/hr IV NOW STA Stop: 12/19/22 04:37 Last Infusion: 12/19/22 05:01 Dose: 0 mls/hr Documented By: Admin: 12/19/22 04:31 Dose: 400 mls/hr Documented By: ASTER Medical Decision Making Medical Records Attestation: I reviewed the patient's medical records. Home Medications Current Medication List: was personally reviewed by me Laboratory Data Attestation: I reviewed the patient's lab results. Patient has leukocytosis 12/19/22 04:30 12/19/22 04:30 Lab Results 12/19/22 12/19/22 12/19/22 Range/Units 04:30 04:30 04:30 WBC 13.53 H (4.8-10.8) K/ul RBC 4.28 L (4.70-6.10) M/uL Hgb 13.2 L (14.0-18.0) g/dl Hct 39.2 L (42.0-52.0) % MCV 91.6 (80.0-100.0) fL MCH 30.8 (25.0-34.0) pg MCHC 33.7 (32.0-36.0) g/dL RDW Std Deviation 48.3 H (36.4-46.3) fL RDW Coeff of Lacey 14.4 (11.5-14.5) % Plt Count 233 (130-400) K/uL MPV 10.5 (9.4-12.4) fL Immature Gran % (Auto) 2.3 % Neut % (Auto) 80.4 % Lymph % (Auto) 7.8 % [place] % (Auto) 9.2 % Eos % (Auto) 0.1 % Baso % (Auto) 0.2 % Neut # (Auto) 10.88 H (1.40-6.50) K/uL Lymph # (Auto) 1.05 L (1.2-3.4) K/uL [place] # (Auto) 1.24 H (0.11-0.59) K/uL Eos # (Auto) 0.02 (0-0.50) K/uL Baso # (Auto) 0.03 (0-0.2) K/uL Immature Gran # (Auto) 0.31 H (0.01-0.20) K/uL Sodium 141 (136-145) mmol/L Potassium 4.1 (3.5-5.1) mmol/L Chloride 106 (98-107) mmol/L Carbon Dioxide 30 (21-32) mmol/L Anion Gap 5 (3-11) BUN 32 H (6-23) mg/dl Creatinine 1.23 (0.6-1.4) mg/dl Est Cr Clr Drug Dosing 54.7 ml/min Est GFR ( Amer) 60.8 ml/min Est GFR (Non-Af Amer) 52.5 ml/min BUN/Creatinine Ratio 26.0 H (10-20) Glucose 121 H (70-99(Fasting)) mg/dl Lactate 1.3 (0.4-2.0) mmol/L Calcium 9.5 (8.5-10.1) mg/dl Magnesium 1.7 (1.7-2.4) mg/dl Total Bilirubin 1.0 (0.2-1.0) mg/dl Direct Bilirubin 0.0 (0-0.2) mg/dl AST 15 (13-39) U/L ALT 6 L (7-52) U/L Alkaline Phosphatase 72 (34-104) U/L Total Protein 7.4 (6.0-8.3) gm/dl Albumin 3.9 (3.4-5.0) gm/dl Procalcitonin (0-0.5) ng/ml SARS-CoV-2, RNA, NAAT (NEGATIVE) 12/19/22 12/19/22 Range/Units 04:30 04:30 WBC (4.8-10.8) K/ul RBC (4.70-6.10) M/uL Hgb (14.0-18.0) g/dl Hct (42.0-52.0) % MCV (80.0-100.0) fL MCH (25.0-34.0) pg MCHC (32.0-36.0) g/dL RDW Std Deviation (36.4-46.3) fL RDW Coeff of Lacey (11.5-14.5) % Plt Count (130-400) K/uL MPV (9.4-12.4) fL Immature Gran % (Auto) % Neut % (Auto) % Lymph % (Auto) % [place] % (Auto) % Eos % (Auto) % Baso % (Auto) % Neut # (Auto) (1.40-6.50) K/uL Lymph # (Auto) (1.2-3.4) K/uL [place] # (Auto) (0.11-0.59) K/uL Eos # (Auto) (0-0.50) K/uL Baso # (Auto) (0-0.2) K/uL Immature Gran # (Auto) (0.01-0.20) K/uL Sodium (136-145) mmol/L Potassium (3.5-5.1) mmol/L Chloride (98-107) mmol/L Carbon Dioxide (21-32) mmol/L Anion Gap (3-11) BUN (6-23) mg/dl Creatinine (0.6-1.4) mg/dl Est Cr Clr Drug Dosing ml/min Est GFR ( Amer) ml/min Est GFR (Non-Af Amer) ml/min BUN/Creatinine Ratio (10-20) Glucose (70-99(Fasting)) mg/dl Lactate (0.4-2.0) mmol/L Calcium (8.5-10.1) mg/dl Magnesium (1.7-2.4) mg/dl Total Bilirubin (0.2-1.0) mg/dl Direct Bilirubin (0-0.2) mg/dl AST (13-39) U/L ALT (7-52) U/L Alkaline Phosphatase (34-104) U/L Total Protein (6.0-8.3) gm/dl Albumin (3.4-5.0) gm/dl Procalcitonin 0.09 (0-0.5) ng/ml SARS-CoV-2, RNA, NAAT NEGATIVE (NEGATIVE) Imaging Data Attestation: I personally reviewed and interpreted this imaging study as follows: My Impression: Chest x-ray interpreted by me cardiomegaly right lower lobe infiltrate pacemaker ECG Data Attestation: I personally reviewed and interpreted this ECG as follows: Additional Comments: EKG interpreted by me atrial flutter rate of 63 versus paced rhythm left bundle branch block age-indeterminate inferior wall FL poor R wave progression the precordium no obvious ST segment elevation or depression MDM Narrative Medical decision making differential diagnosis includes urinary tract infection, pneumonia, sepsis, deconditioning, dementia Plan is to check labs, sepsis protocol EMS records and bedside report were given to me and reviewed Nursing notes were reviewed by me 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 mcc notes were also reviewed by me Patient has weakness a fever he was given IV Tylenol and was given IV fluids he was started empirically on Rocephin, he has an elevated troponin however no current chest pain he that is a paced rhythm with no obvious ischemia Patient is at risk for sepsis and a cardiac event Case was discussed with Dr[facility] Cast[facility] from [facility] except the patient for admission as an inpatient for weakness elevated troponin and suspected early sepsis Impression & Plan Weakness, Acute UTI (urinary tract infection), Dementia, Elevated troponin, Acute dehydration Discharge Plan Visit Data Chief Complaint: Illness Stated Complaint: AMS ED Provider: Aryan Najera Discharge Problem: Weakness, Acute UTI (urinary tract infection), Dementia, Elevated troponin, Acute dehydration Patient Disposition: Admitted As Inpatient Forms Stand Alone Forms: My [facility] Prescriptions Prescriptions: No Action losartan 50 mg Tablet 50 mg PO BID Qty: 60 0RF Rx Instructions: hold for sbp < 110 sennosides-docusate sodium [Senokot-S] 8.6-50 mg Tablet 1 tab PO QAM Qty: 30 0RF Rx Instructions: hold for loose stool atorvastatin [Lipitor] 20 mg tablet 20 mg PO QPM Qty: 30 0RF carbidopa-levodopa 25-100 mg tablet 1 tab PO BID Qty: 60 0RF furosemide 20 mg tablet 20 mg PO QAM Qty: 30 0RF acetaminophen [Tylenol] 325 mg Tablet 650 mg PO Q4H PRN (Reason: PAIN/FEVER) donepezil 5 mg tablet 5 mg PO QAM polyethylene glycol 3350 [Miralax] 17 gram powder in packet 17 g PO QAM Rx Instructions: hold for loose stool amlodipine [Norvasc] 5 mg tablet 5 mg PO QPM Rx Instructions: HOLD FOR SBP < 110 aspirin 81 mg tablet,delayed release (DR/EC) 81 mg PO QAM metoprolol tartrate 25 mg tablet 25 mg PO QAM Paxlovid (EUA) 300 mg (150 mg x 2)-100 mg tablets,dose pack See Rx Instructions .ROUTE .COMPLEX Qty: 30 0RF Rx Instructions: take TWO 150 mg tablets of nirmatrelvir with ONE 100 mg tablet of ritonavir twice daily for 5 days Referrals Referrals: Gely cowanThompson [Primary Care Provider] -
[2022-12-19] MEDS ORDERED: ACETAMINOPHEN 1,000 MG/100 ML VIAL IV STA (04:23)
[2022-12-19 05:02] LABS: Basophils # (auto) 0.03 K/uL (0-0.2); Basophils % (auto) 0.2 %; Eosinophils # (auto) 0.02 K/uL (0-0.50); Eosinophils % (auto) 0.1 %; Hematocrit (blood only) 39.2 % (42.0-52.0); Hemoglobin 13.2 g/dl (14.0-18.0); Immature Granulocytes # (auto) 0.31 K/uL (0.01-0.20); Immature Granulocytes % (auto) 2.3 %; Lymphocytes # (auto) 1.05 K/uL (1.2-3.4); Lymphocytes % (auto) 7.8 %; Mean Corpuscular Hemoglobin 30.8 pg (25.0-34.0); Mean Corpuscular Hgb Conc 33.7 g/dL (32.0-36.0); Mean Corpuscular Volume 91.6 fL (80.0-100.0); Mean Platelet Volume 10.5 fL (9.4-12.4); Monocytes # (auto) 1.24 K/uL (0.11-0.59); Monocytes % (auto) 9.2 %; Neutrophils # (auto) 10.88 K/uL (1.40-6.50); Neutrophils % (auto) 80.4 %; Platelet Count 233 K/uL (130-400); RDW Coefficient of Variation 14.4 % (11.5-14.5); RDW Standard Deviation 48.3 fL (36.4-46.3); Red Blood Count 4.28 M/uL (4.70-6.10); White Blood Count 13.53 K/ul (4.8-10.8)
[2022-12-19] MEDS ORDERED: cefTRIAXone SODIUM 2,000 MG/70 ML BAG IV STA (05:03)
[2022-12-19 05:10] LABS: Albumin Level 3.9 gm/dl (3.4-5.0); Calcium 9.5 mg/dl (8.5-10.1); Creatinine Clr Calc Pharmacy 54.7 ml/min; Est GFR (African American) 60.8 ml/min; Est GFR (Non-African American) 52.5 ml/min; Magnesium 1.7 mg/dl (1.7-2.4); Potassium 4.1 mmol/L (3.5-5.1); Total Protein 7.4 gm/dl (6.0-8.3)
[2022-12-19] MEDS ORDERED: SODIUM CHLORIDE 0.9% 1000ML 1,000 ML IV ONE ×2 (05:13→06:10)
[2022-12-19 05:29] LABS: Troponin I High Sensitivity 188.9 pg/ml (0-20)
[2022-12-19 05:32] LABS: Appearance Urine Slightly Cloudy (Clear); Bilirubin Urine Negative (Negative); Blood Urine 1+ (Negative); Glucose Urine UA Negative (Negative); Ketones Urine Negative (Negative); Leukocyte Esterase Urine 3+ (Negative); Nitrite Urine Positive (Negative); Protein Urine 2+ (Negative); Specific Gravity Urine 1.015 (1.000-1.030); Urobilinogen Urine Negative (Negative); pH Urine >= 9.0 (4.5-7.5)
[2022-12-19 05:36] LABS: Color Urine Yellow
--- NOTE | 2022-12-19 06:01 | History & Physical Report ---
Date of Service December 19, 2022 Assessment & Plan (1) Sepsis: Plan: Secondary to complicated UTI Troponin elevation secondary to above hx CAD sp CABG/stenting aortic stenosis sp bioprosthetic AVR TAA status post surgery PFO as per records SSS sp PPM not on anticoagulation secondary to bleeding/fall risk hx TIA HTN, BP on the lower side, patient on multiple BP medications hx Parkinson's disease/Lewy body dementia chronic anemia, hemoglobin at baseline hemolytic anemia as per records Medical telemetry given troponin elevation and borderline BP CS, Cefepime Hold other BP medications for now except for low-dose metoprolol Follow troponin, TTE for progression PT OT eval DVT prophylaxis. Lovenox subcu DNR as per patient's prior wishes. Patient's requesting updates from providers. Ms. Audelia Hdz, contact number [phone]. Text document was generated using readfy voice recognition software. It may contain grammatical or spelling errors. Kindly contact undersigned for clarification of any documentation item in question. History of Present Illness Chief Complaint: Weakness as per report Primary Care Provider: [facility] History obtained from patient, family, and records. Limited history from patient secondary to dementia. Medical history significant for CAD sp CABG/stenting, aortic stenosis sp bioprosthetic AVR, TAA status post surgery, PFO as per records, SSS sp PPM not on anticoagulation secondary to bleeding, HTN, TIA, Parkinson's disease/Lewy body dementia, chronic anemia (baseline hemoglobin 11-12 ), hemolytic anemia as per records, history of dysphagia, esophageal dysmotility as per records. Last confinement June 2022 for TIA. Patient noted to be increasingly weak today. Blood pressure noted to be 180s at the dementia unit. Patient brought to the ER for evaluation. IV ceftriaxone administered at the ER. Patient unable to answer questions regarding chest pain, shortness of breath, headache, abdominal pain. MEDICAL HISTORY: As above. SURGICAL HISTORY: Laser surgery of the eye, pacemaker placement, CABG, aortic aneurysm repair, aortic valve surgery. FAMILY HISTORY: Heart disease, SLE PERSONAL AND SOCIAL HISTORY: Nonsmoker, no chronic ETOH intake. 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 resident Allergies Allergy/AdvReac Type Severity Reaction Status Date / Time No Known Allergies Allergy Verified 12/19/22 11:15 Home Medications Medication Instructions Recorded Confirmed Type atorvastatin 20 mg tablet (Lipitor) 20 mg PO QPM #30 tabs 09/11/21 12/19/22 Rx carbidopa 25 mg-levodopa 100 mg 1 tab PO BID #60 tabs 09/11/21 12/19/22 Rx tablet furosemide 20 mg tablet 20 mg PO QAM #30 tabs 09/11/21 12/19/22 Rx losartan 50 mg tablet 50 mg PO BID #60 tabs 09/11/21 12/19/22 Rx sennosides 8.6 mg-docusate sodium 1 tab PO QAM #30 tabs 09/11/21 12/19/22 Rx 50 mg tablet (Senokot-S) acetaminophen 325 mg tablet 650 mg PO Q4H PRN PAIN/FEVER 09/12/22 12/19/22 History (Tylenol) amlodipine 5 mg tablet (Norvasc) 5 mg PO DAILY 09/12/22 12/19/22 History aspirin 81 mg tablet,delayed 81 mg PO QAM 09/12/22 12/19/22 History release donepezil 5 mg tablet 5 mg PO QAM 09/12/22 12/19/22 History metoprolol tartrate 25 mg tablet 25 mg PO QAM 09/12/22 12/19/22 History polyethylene glycol 3350 17 gram 17 g PO QAM 09/12/22 12/19/22 History oral powder packet (Miralax) potassium chloride 20 mEq 20 meq PO DAILY 12/19/22 12/19/22 History tablet,extended release(part/cryst) Past Med/Surg History Medical History Aortic aneurysm Aortic stenosis Atrial fibrillation CAD (coronary artery disease) Dementia Hemolytic anemia HLD (hyperlipidemia) HTN (hypertension) Left rib fracture residential resident Pacemaker Pacemaker battery depletion Parkinsons disease Rhabdomyolysis T12 compression fracture Surgical History H/O prosthetic heart valve History of cataract surgery right Hx of heart bypass surgery Social History Smoking Status: Unknown if ever smoked Hx Substance Use: No Preferred Language: Amharic Communication Ability: Impaired Visual Impairment: No Limitations Hearing Ability: Normal Pearl Cutter Required: No Beliefs That Will Affect Care: None marital status: Current Living Situation: Penitentiary Current Living Situation Comment: resident at [facility] Other Information That Helps Us Care for You: No Feels Safe at Home: Declines to Answer Assistive Devices: Walker and Wheelchair Review of Systems Review of Systems: Could not be reliably obtained secondary to dementia Physical Exam Physical Exam: GENERAL: Demented, no respiratory distress SKIN: Pallor , warm HEENT: Pale palpebral conjunctivae, no ptosis, dry buccal mucosa NECK : Supple, no tenderness CHEST : Decreased breath sounds, no chest wall tenderness HEART : RRR, no obvious murmurs ABDOMEN: Some distention, nontender EXTREMITIES : No LE swelling/tenderness, no other conspicuous deformities noted NEUROLOGIC : Demented, hard of hearing, no facial asymmetry, gait and stance not assessed Results & Data Results & Data ([facility]) Vital Signs (Past 12 Hours) Vital Signs Temp Pulse Resp BP Pulse Ox O2 Del Method 12/19/22 05:15 65 16 105/65 93 12/19/22 05:04 66 14 106/61 94 12/19/22 05:03 70 16 108/64 94 12/19/22 04:23 97 Room Air 12/19/22 04:13 38.2 C H 63 20 135/74 97 Room Air Laboratory Results Laboratory Results WBC 13.53 K/ul (4.8-10.8) H 12/19/22 04:30 RBC 4.28 M/uL (4.70-6.10) L 12/19/22 04:30 Hgb 13.2 g/dl (14.0-18.0) L 12/19/22 04:30 Hct 39.2 % (42.0-52.0) L 12/19/22 04:30 MCV 91.6 fL (80.0-100.0) 12/19/22 04:30 MCH 30.8 pg (25.0-34.0) 12/19/22 04:30 MCHC 33.7 g/dL (32.0-36.0) 12/19/22 04:30 RDW Std Deviation 48.3 fL (36.4-46.3) H 12/19/22 04:30 RDW Coeff of Lacey 14.4 % (11.5-14.5) 12/19/22 04:30 Plt Count 233 K/uL (130-400) 12/19/22 04:30 MPV 10.5 fL (9.4-12.4) 12/19/22 04:30 Immature Gran % (Auto) 2.3 % 12/19/22 04:30 Neut % (Auto) 80.4 % 12/19/22 04:30 Lymph % (Auto) 7.8 % 12/19/22 04:30 [place] % (Auto) 9.2 % 12/19/22 04:30 Eos % (Auto) 0.1 % 12/19/22 04:30 Baso % (Auto) 0.2 % 12/19/22 04:30 Neut # (Auto) 10.88 K/uL (1.40-6.50) H 12/19/22 04:30 Lymph # (Auto) 1.05 K/uL (1.2-3.4) L 12/19/22 04:30 [place] # (Auto) 1.24 K/uL (0.11-0.59) H 12/19/22 04:30 Eos # (Auto) 0.02 K/uL (0-0.50) 12/19/22 04:30 Baso # (Auto) 0.03 K/uL (0-0.2) 12/19/22 04:30 Immature Gran # (Auto) 0.31 K/uL (0.01-0.20) H 12/19/22 04:30 Sodium 141 mmol/L (136-145) 12/19/22 04:30 Potassium 4.1 mmol/L (3.5-5.1) 12/19/22 04:30 Chloride 106 mmol/L (98-107) 12/19/22 04:30 Carbon Dioxide 30 mmol/L (21-32) 12/19/22 04:30 Anion Gap 5 (3-11) 12/19/22 04:30 BUN 32 mg/dl (6-23) H 12/19/22 04:30 Creatinine 1.23 mg/dl (0.6-1.4) 12/19/22 04:30 Est Cr Clr Drug Dosing 54.7 ml/min 12/19/22 04:30 Est GFR ( Amer) 60.8 ml/min 12/19/22 04:30 Est GFR (Non-Af Amer) 52.5 ml/min 12/19/22 04:30 BUN/Creatinine Ratio 26.0 (10-20) H 12/19/22 04:30 Glucose 121 mg/dl (70-99(Fasting)) H 12/19/22 04:30 Lactate 1.3 mmol/L (0.4-2.0) 12/19/22 04:30 Calcium 9.5 mg/dl (8.5-10.1) 12/19/22 04:30 Magnesium 1.7 mg/dl (1.7-2.4) 12/19/22 04:30 Total Bilirubin 1.0 mg/dl (0.2-1.0) 12/19/22 04:30 Direct Bilirubin 0.0 mg/dl (0-0.2) 12/19/22 04:30 AST 15 U/L (13-39) 12/19/22 04:30 ALT 6 U/L (7-52) L 12/19/22 04:30 Alkaline Phosphatase 72 U/L (34-104) 12/19/22 04:30 Troponin I High Sens 188.9 pg/ml (0-20) H* 12/19/22 04:30 Total Protein 7.4 gm/dl (6.0-8.3) 12/19/22 04:30 Albumin 3.9 gm/dl (3.4-5.0) 12/19/22 04:30 Procalcitonin 0.09 ng/ml (0-0.5) 12/19/22 04:30 Urine Color Yellow 12/19/22 04:50 Urine Appearance Slightly Cloudy (Clear) 12/19/22 04:50 Urine pH >= 9.0 (4.5-7.5) H 12/19/22 04:50 Ur Specific [place] 1.015 (1.000-1.030) 12/19/22 04:50 Urine Protein 2+ (Negative) H 12/19/22 04:50 Urine Glucose (UA) Negative (Negative) 12/19/22 04:50 Urine Ketones Negative (Negative) 12/19/22 04:50 Urine Blood 1+ (Negative) H 12/19/22 04:50 Urine Nitrite Positive (Negative) A 12/19/22 04:50 Urine Bilirubin Negative (Negative) 12/19/22 04:50 Urine Urobilinogen Negative (Negative) 12/19/22 04:50 Ur Leukocyte Esterase 3+ (Negative) H 12/19/22 04:50 SARS-CoV-2, RNA, NAAT NEGATIVE (NEGATIVE) 12/19/22 04:30 Diagnostic Findings Chest x-ray as per my interpretation cardiomegaly, minimal congestion EKG as per my interpretation : Rate 65, atrial flutter with paced complexes
[2022-12-19] MEDS ORDERED: PROMETHAZINE HCL 6.25 MG in SODIUM CHLORIDE 0.9% 50 ML IV PRN (06:07)
[2022-12-19] MEDS ORDERED: CEFEPIME 2,000 MG/20 ML VIAL IV STA (06:07)
[2022-12-19] MEDS ORDERED: CEFEPIME 2,000 MG in SYRINGE 0 ML IV ONE (06:15)
--- NOTE | 2022-12-19 06:43 | XRay Report ---
XR chest 1V portable HISTORY: 87 years-old Male Sepsis acute sepsis COMPARISON: Chest radiograph 09/12/2022 TECHNIQUE: AP view of the chest FINDINGS: Cardiac silhouette is enlarged. Prior median sternotomy and CABG. Left subclavian pacer. No pneumotho rax, large pleural effusion or lobar airspace consolidation. Pulmonary vascular congestion with chron ic interstitial coarsening. Degenerative changes of the shoulders and spine. IMPRESSION: 1. Cardiomegaly with pulmonary vascular congestion. 2. No airspace consolidation typical for pneumonia. ACT 112: Negative or not required by law. The above report was generated using voice recognition software. It may contain grammatical, syntax o r spelling errors. Electronically signed by: Mariano Wilcox M.D. 12/19/2022 6:42 AM
[2022-12-19] MEDS: ENOXAPARIN INJ 40 MG/0.4 ML SYR SQ SCH (08:59)
[2022-12-19] MEDS: METOPROLOL TARTRATE 25 MG TAB PO SCH ×2 (09:22→22:41)
[2022-12-19] MEDS: POLYETHYLENE (MIRALAX) 17 GM PACK PO SCH (09:22)
[2022-12-19] MEDS: CARBIDOPA/LEVODOPA 25/100MG TAB PO SCH ×2 (09:22→22:40)
[2022-12-19] MEDS: DONEPEZIL HCL 5 MG TAB PO SCH (09:22)
[2022-12-19] MEDS: DOCUSATE SODIUM/SENNA 50/8.6MG TAB PO SCH (09:22)
[2022-12-19] MEDS: ASPIRIN 81 MG ECTAB PO SCH (09:22)
--- NOTE | 2022-12-19 15:32 | Electrocardiogram Report ---
Test Reason : Blood Pressure : / mmHG Vent. Rate : 063 BPM Atrial Rate : 254 BPM P-R Int : 000 ms QRS Dur : 164 ms QT Int : 500 ms P-R-T Axes : 246 -07 014 degrees QTc Int : 511 ms Poor data quality, interpretation may be adversely affected Probable Atrial fibrillation with frequent ventricular-paced complexes Indeterminate axis Right bundle branch block Cannot rule out Inferior infarct , age undetermined Abnormal ECG When compared with ECG of 12-SEP-2022 18:11, Vent. rate has decreased BY 9 BPM Confirmed by Theron Barron ([id number]) on 12/19/2022 3:32:21 PM Referred By: [facility] Confirmed By:Theron Barron
[2022-12-19] MEDS: CEFEPIME 2,000 MG in SYRINGE 0 ML IV SCH (16:18)
--- NOTE | 2022-12-19 18:15 | Communication Note ---
Date of Service: December 19, 2022 87-year old male with significant past medical history of CAD status post CABG/stent placement, aortic stenosis status post bioprosthetic AVR, TAA s/p rodriguez rgery sick sinus syndrome status post pacemaker placement and not on anticoagulation and other medical condition as mentioned in H&P was sent in from dementia unit with increasing weakness and high blood pressure. Noted to have possible UTI on UA examination with mildly elevated white count. Has been started on intravenous ceftriaxone and the patient has been doing reasonably better and remained stable. His troponin was noted to be minimally elevated and will get third set of troponin this evening. Will have full progress note tomorrow. Discussed with the . Dr Edgar Daley
[2022-12-20] MEDS: ATORVASTATIN 20 MG TAB PO SCH ×2 (00:19→20:16)
[2022-12-20] MEDS: CEFEPIME 2,000 MG in SYRINGE 0 ML IV SCH ×3 (01:41→20:16)
[2022-12-20 06:29] LABS: Calcium 8.4 mg/dl (8.5-10.1); Potassium 4.2 mmol/L (3.5-5.1)
[2022-12-20 06:34] LABS: BUN Creatinine Ratio 28.3 (10-20); Creatinine Clr Calc Pharmacy 73.1 ml/min; Est GFR (African American) 86.4 ml/min; Est GFR (Non-African American) 74.5 ml/min
[2022-12-20 06:55] LABS: Basophils # (auto) 0.03 K/uL (0-0.2); Basophils % (auto) 0.3 %; Eosinophils # (auto) 0.13 K/uL (0-0.50); Eosinophils % (auto) 1.5 %; Hematocrit (blood only) 36.3 % (42.0-52.0); Hemoglobin 11.9 g/dl (14.0-18.0); Immature Granulocytes # (auto) 0.04 K/uL (0.01-0.20); Immature Granulocytes % (auto) 0.4 %; Lymphocytes # (auto) 1.46 K/uL (1.2-3.4); Lymphocytes % (auto) 16.3 %; Mean Corpuscular Hemoglobin 31.2 pg (25.0-34.0); Mean Corpuscular Hgb Conc 32.8 g/dL (32.0-36.0); Mean Corpuscular Volume 95.3 fL (80.0-100.0); Monocytes # (auto) 1.02 K/uL (0.11-0.59); Monocytes % (auto) 11.4 %; Neutrophils # (auto) 6.25 K/uL (1.40-6.50); Neutrophils % (auto) 70.1 %; Platelet Count 171 K/uL (130-400); RDW Coefficient of Variation 14.2 % (11.5-14.5); RDW Standard Deviation 50.4 fL (36.4-46.3); Red Blood Count 3.81 M/uL (4.70-6.10); White Blood Count 8.93 K/ul (4.8-10.8)
[2022-12-20] MEDS: DONEPEZIL HCL 5 MG TAB PO SCH (09:18)
[2022-12-20] MEDS: CARBIDOPA/LEVODOPA 25/100MG TAB PO SCH ×2 (09:18→20:16)
[2022-12-20] MEDS: METOPROLOL TARTRATE 25 MG TAB PO SCH ×2 (09:18→20:16)
[2022-12-20] MEDS: ENOXAPARIN INJ 40 MG/0.4 ML SYR SQ SCH (09:19)
[2022-12-20] MEDS: ASPIRIN 81 MG ECTAB PO SCH (10:05)
[2022-12-20] MEDS: POLYETHYLENE (MIRALAX) 17 GM PACK PO SCH (10:06)
[2022-12-20] MEDS: DOCUSATE SODIUM/SENNA 50/8.6MG TAB PO SCH (10:06)
[2022-12-20] MEDS ORDERED: HALOPERIDOL LACTATE 5 MG/ML 1 ML VIAL IM STA (14:24)
[2022-12-20] MEDS ORDERED: HALOPERIDOL DECANOATE INJ 50 MG/ML VIAL IM ONE (14:42)
[2022-12-20] MEDS ORDERED: HALOPERIDOL LACTATE 5 MG/ML 1 ML VIAL IM ONE (15:00)
--- NOTE | 2022-12-20 15:14 | Urology Consultation ---
Date of Consultation December 20, 2022 Assessment & Plan (1) Paraphimosis: (2) Acute UTI (urinary tract infection): Plan 87 yo M with lewy body dementia admitted due to UTI who also had paraphimosis. -Due to inability to exam patient as he was aggressive and trying to strike myself as well as the staff, he was placed in four point restraints and given 5mg of IM haldol. -I was able to squeeze some edema out of the glans manually and then retract his foreskin into the appropriate position once he was medicated and restrained. -Continue antibiotics and follow up culture. Would not recommend catheter as long as patient continues to improve as he will likely try to remove catheter and cause undue trauma. -Urology to sign off. No urologic follow up needed. History of Present Illness Reason for Consultation: Penile swelling Attending Physician: Ab Daley MD History of Present Illness 87 yo M with lewy body dementia who was admitted last night due to reported weakness and concern for UTI. Urology consulted for penile swelling, which apparently patient presented to hospital with. Unable to get further history due to dementia and no family at bedside. UA was positive and prelim urine culture growing GNR. Allergies Allergy/AdvReac Type Severity Reaction Status Date / Time No Known Allergies Allergy Verified 12/19/22 11:15 Home Medications Medication Instructions Recorded Confirmed Type atorvastatin 20 mg tablet (Lipitor) 20 mg PO QPM #30 tabs 09/11/21 12/19/22 Rx carbidopa 25 mg-levodopa 100 mg 1 tab PO BID #60 tabs 09/11/21 12/19/22 Rx tablet furosemide 20 mg tablet 20 mg PO QAM #30 tabs 09/11/21 12/19/22 Rx losartan 50 mg tablet 50 mg PO BID #60 tabs 09/11/21 12/19/22 Rx sennosides 8.6 mg-docusate sodium 1 tab PO QAM #30 tabs 09/11/21 12/19/22 Rx 50 mg tablet (Senokot-S) acetaminophen 325 mg tablet 650 mg PO Q4H PRN PAIN/FEVER 09/12/22 12/19/22 History (Tylenol) amlodipine 5 mg tablet (Norvasc) 5 mg PO DAILY 09/12/22 12/19/22 History aspirin 81 mg tablet,delayed 81 mg PO QAM 09/12/22 12/19/22 History release donepezil 5 mg tablet 5 mg PO QAM 09/12/22 12/19/22 History metoprolol tartrate 25 mg tablet 25 mg PO QAM 09/12/22 12/19/22 History polyethylene glycol 3350 17 gram 17 g PO QAM 09/12/22 12/19/22 History oral powder packet (Miralax) potassium chloride 20 mEq 20 meq PO DAILY 12/19/22 12/19/22 History tablet,extended release(part/cryst) Patient History Medical History Aortic aneurysm Aortic stenosis Atrial fibrillation CAD (coronary artery disease) Dementia Hemolytic anemia HLD (hyperlipidemia) HTN (hypertension) Left rib fracture [facility] Pacemaker Pacemaker battery depletion Parkinsons disease Rhabdomyolysis T12 compression fracture Surgical History H/O prosthetic heart valve History of cataract surgery right Hx of heart bypass surgery Social History Smoking Status: Unknown if ever smoked Hx Substance Use: No Preferred Language: [place] Communication Ability: Impaired Visual Impairment: No Limitations Hearing Ability: Normal Portfolio Assistant Required: No Beliefs That Will Affect Care: None marital status: Current Living Situation: Skilled Nursing Current Living Situation Comment: resident at [facility] Other Information That Helps Us Care for You: No Feels Safe at Home: Declines to Answer Assistive Devices: Walker and Wheelchair Review of Systems Review of Systems: Unobtainable due to cognitive status Physical Exam Physical Exam: General: Combative, confused HEENT: Normocephalic, mucous membranes moist Pulmonary: Nonlabored respirations Abdomen: Nondistended : Uncircumcised phallus with orthotopic meatus. Distal penile swelling consistent with paraphimosis. Unable to get quality scrotal exam due to patient not cooperative, however grossly normal. Extremities: Moves all 4 spontaneously Results & Data ([place]) Vital Signs (Past 12 Hours) Vital Signs Temp Pulse Pulse Pulse Resp BP BP 12/20/22 10:15 12/20/22 10:19 36.6 C 60 18 132/75 12/20/22 10:17 73 12/20/22 08:20 77 20 119/68 12/20/22 06:13 84 16 96/77 L Pulse Ox O2 Del Method 12/20/22 10:15 Room Air 12/20/22 10:19 96 Room Air 12/20/22 10:17 12/20/22 08:20 95 Room Air 12/20/22 06:13 95 Room Air PG Care Time/CCT Total # of Minutes Spent Total Time Spent with Patient: Total time spent is greater than 50% in coordination of care (as documented) at patient's floor/unit and/or counseling patient: Coding Level of Care Code 89270 INT INP/OBS CARE MIN Diagnoses Paraphimosis N47.2 Acute UTI (urinary tract infection) N39.0
--- NOTE | 2022-12-20 16:09 | Hospitalist Progress Note ---
Date of Service December 20, 2022 Assessment & Plan (1) Sepsis: Plan: Secondary to complicated UTI Started on intravenous cefepime And has been growing gram-negative bacilli further identification and sensitivities are pending Patient seems to be clinically better HTN, BP on the lower side, patient on multiple BP medications Chronic anemia, hemoglobin at baseline hemolytic anemia as per records (2) Acute UTI (urinary tract infection): Plan: As above Laceration of the scrotum Urology consult Appreciate input and recommendation (3) CAD (coronary artery disease): Plan: hx CAD sp CABG/stenting Aortic stenosis sp bioprosthetic AVR TAA status post surgery PFO as per records SSS sp PPM not on anticoagulation secondary to bleeding/fall risk hx TIA (4) Aortocoronary bypass status: (5) Elevated troponin: Plan: Has had chest pain Troponin was mildly elevated and serial troponin while equivocal but elevated Will get echo to evaluate LV function (6) Dementia: Plan: hx Parkinson's disease/Lewy body dementia Continue current medications for dementia and Parkinson disease Has had agitation this afternoon and required IM Haldol (7) Pacemaker: (8) Weakness: Plan: We will get PT and OT evaluation (9) HTN (hypertension): Plan: Blood pressure is controlled and will continue current medication Plan DVT prophylaxis Subcu Lovenox CODE STATUS DNR/DNI Patient's requesting updates from providers. Ms. Audelia Hdz, contact number [phone]. Admission and Anticipated Discharge Date Admission Date: December 19, 2022 Subjective 12/20/2022 The patient was seen and examined in medical telemetry unit He has been out of bed on a chair Denies any significant symptoms during my examination He was noted to be very agitated and combative later on and that required IM Haldol Review of Systems Review of Systems: All systems reviewed and are unremarkable except as noted below Physical Exam Physical Exam: Sitting on a chair without any acute distress Constitutional: well developed, well nourished, + ill appearing and + obese Eyes: PERRL, conjunctivae normal, anicteric sclerae ENMT: external ear and nose normal, oropharynx normal Neck: trachea midline, no thyromegaly Respiratory: no respiratory distress Auscultation: + diminished lung sounds and + crackles (Minimal crackles at the bases) Cardiovascular: Rate/Rhythm: regular rate and regular rhythm; not tachycardic Heart Sounds: normal S1, normal S2 and + murmur (2/6 ESM over precordium) Extremities: no edema Gastrointestinal (Abdomen): Inspection/Auscultation: normal bowel sounds; abdomen not distended Percussion/Palpation: abdomen soft; abdomen nontender Musculoskeletal: No acute arthritis involving any joint Neurologic: Alert, awake . Has been communicating well today. generally weak, Lymphatic: no cervical or axillary lymphadenopathy Results & Data Results & Data ([facility]) Vital Signs (Past 12 Hours) Vital Signs Temp Pulse Pulse Pulse Resp BP BP 12/20/22 15:48 66 12/20/22 10:15 12/20/22 10:19 36.6 C 60 18 132/75 12/20/22 10:17 73 12/20/22 08:20 77 20 119/68 12/20/22 06:13 84 16 96/77 L Pulse Ox O2 Del Method 12/20/22 15:48 12/20/22 10:15 Room Air 12/20/22 10:19 96 Room Air 12/20/22 10:17 12/20/22 08:20 95 Room Air 12/20/22 06:13 95 Room Air Laboratory Results Short CBC 12/20/22 Range/Units 05:52 WBC 8.93 (4.8-10.8) K/ul Hgb 11.9 L (14.0-18.0) g/dl Hct 36.3 L (42.0-52.0) % Plt Count 171 (130-400) K/uL BMP 12/20/22 05:52 Sodium 140 Potassium 4.2 Chloride 109 H Carbon Dioxide 25 BUN 26 H Creatinine 0.92 D Glucose 85 Calcium 8.4 L Medications Administered Current Inpatient Medications Aspirin (Aspirin 81 Mg Ectab) 81 mg PO QAM [facility] Stop: 01/18/23 08:59 Last Admin: 12/20/22 10:05 Dose: Not Given Atorvastatin Calcium (Atorvastatin 20 Mg Tab) 20 mg PO QPM [facility] Stop: 01/18/23 20:59 Last Admin: 12/20/22 00:19 Dose: 20 mg Carbidopa/Levodopa (Carbidopa/Levodopa 25/100mg Tab) 1 tab PO BID [facility] Stop: 01/18/23 08:59 Last Admin: 12/20/22 09:18 Dose: 1 tab Donepezil HCl (Donepezil Hcl 5 Mg Tab) [facility] [place]: 01/18/23 08:59 Last Admin: 12/20/22 09:18 Dose: 5 mg Enoxaparin Sodium (Enoxaparin Inj 40 Mg/0.4 Ml Syr) 40 [facility] [place] 01/18/23 08:59 Last Admin: 12/20/22 09:19 Dose: 40 mg Promethazine HCl 6.25 mg/ (Sodium Chloride) 50.25 mls @ 201 mls/hr IV Q6H PRN PRN Reason: Nausea And Vomiting Stop: 01/18/23 06:06 Cefepime HCl 2,000 mg/ Syringe 20 mls @ 5 mls/min IV Q12H [facility]; Protocol Stop: 12/30/22 15:59 Metoprolol Tartrate (Metoprolol Tartrate 25 Mg Tab) 12.5 mg PO BID [facility] Stop: 01/18/23 08:59 Last Admin: 12/20/22 09:18 Dose: 12.5 mg Polyethylene Glycol (Polyethylene (Miralax) 17 Gm Pack) 17 [facility] [place]: 01/18/23 08:59 Last Admin: 12/20/22 10:06 Dose: Not Given Senna/Docusate Sodium (Docusate Sodium/Senna 50/8.6mg Tab) 1 [facility] [place]: 01/18/23 08:59 Last Admin: 12/20/22 10:06 Dose: Not Given
[2022-12-20 23:00] LABS: A calco-baum cmplx NotReported Not Detected (NotDetected); Bact fragilis Not Reported Not Detected (NotDetected); C auris Not Reported Not Detected (NotDetected); Calbicans Not Reported Not Detected (NotDetected); Candida glabrata Not Reported Not Detected (NotDetected); Candida krusei Not Reported Not Detected (NotDetected); Cneoformans/gatti Not Reported Not Detected (NotDetected); Cparapsilosis Not Reported Not Detected (NotDetected); Ctropicalis Not Reported Not Detected (NotDetected); E cloacae compx Not Reported Not Detected (NotDetected); Efaecalis Not Reported Not Detected (NotDetected); Efaecium Not Reported Not Detected (NotDetected); Enterobacterales Not Reported Not Detected (NotDetected); Escherichia coli Not Reported Not Detected (NotDetected); H influenzae Not Reported Not Detected (NotDetected); K aerogenes Not Reported Not Detected (NotDetected); Koxytoca Not Reported Not Detected (NotDetected); Kpneumoniae grp Not Reported Not Detected (NotDetected); Lmonocyt Not Reported Not Detected (NotDetected); N meningitidis Not Reported Not Detected (NotDetected); P aeruginosa Not Reported Not Detected (NotDetected); Proteus spp Not Reported Not Detected (NotDetected); Salmonella spp Not Reported Not Detected (NotDetected); Smarcescens Not Reported Not Detected (NotDetected); Staph lugdunensis Not Reported Not Detected (NotDetected); Staph spp. Not Reported Not Detected (NotDetected); Staphaureus Not Reported Not Detected (NotDetected); Staphepi Not Reported Not Detected (NotDetected); Stenmaltophilia Not Reported Not Detected (NotDetected); Strep agal(GrpB) Not Reported Not Detected (NotDetected); Strep pneum Not Reported Not Detected (NotDetected); Strep pyog (GrpA) Not Reported Not Detected (NotDetected); Strep spp Not Reported Not Detected (NotDetected)
[2022-12-21] MEDS: CARBIDOPA/LEVODOPA 25/100MG TAB PO SCH ×2 (08:01→20:17)
[2022-12-21] MEDS: METOPROLOL TARTRATE 25 MG TAB PO SCH ×2 (08:01→20:17)
[2022-12-21] MEDS: ENOXAPARIN INJ 40 MG/0.4 ML SYR SQ SCH (08:02)
[2022-12-21] MEDS: DONEPEZIL HCL 5 MG TAB PO SCH (08:02)
[2022-12-21] MEDS: ASPIRIN 81 MG ECTAB PO SCH (08:03)
[2022-12-21] MEDS: DOCUSATE SODIUM/SENNA 50/8.6MG TAB PO SCH (08:04)
[2022-12-21] MEDS: POLYETHYLENE (MIRALAX) 17 GM PACK PO SCH (08:04)
[2022-12-21] MEDS: CEFEPIME 2,000 MG in SYRINGE 0 ML IV SCH ×2 (08:09→20:17)
[2022-12-21 08:33] LABS: Basophils # (auto) 0.02 K/uL (0-0.2); Basophils % (auto) 0.3 %; Eosinophils # (auto) 0.09 K/uL (0-0.50); Eosinophils % (auto) 1.5 %; Hematocrit (blood only) 32.2 % (42.0-52.0); Hemoglobin 10.8 g/dl (14.0-18.0); Immature Granulocytes # (auto) 0.01 K/uL (0.01-0.20); Immature Granulocytes % (auto) 0.2 %; Lymphocytes # (auto) 1.19 K/uL (1.2-3.4); Lymphocytes % (auto) 20.1 %; Mean Corpuscular Hemoglobin 31.1 pg (25.0-34.0); Mean Corpuscular Hgb Conc 33.5 g/dL (32.0-36.0); Mean Corpuscular Volume 92.8 fL (80.0-100.0); Mean Platelet Volume 10.3 fL (9.4-12.4); Monocytes # (auto) 0.76 K/uL (0.11-0.59); Monocytes % (auto) 12.8 %; Neutrophils # (auto) 3.85 K/uL (1.40-6.50); Neutrophils % (auto) 65.1 %; Platelet Count 180 K/uL (130-400); RDW Standard Deviation 48.1 fL (36.4-46.3); Red Blood Count 3.47 M/uL (4.70-6.10); White Blood Count 5.92 K/ul (4.8-10.8)
[2022-12-21 09:25] LABS: BUN Creatinine Ratio 22.3 (10-20); Creatinine Clr Calc Pharmacy 71.6 ml/min; Est GFR (African American) 84.2 ml/min; Est GFR (Non-African American) 72.6 ml/min; Magnesium 1.8 mg/dl (1.7-2.4); Potassium 3.4 mmol/L (3.5-5.1)
[2022-12-21] MEDS ORDERED: POTASSIUM CHLORIDE CRTAB 20 MEQ TABCR PO STA (09:32)
[2022-12-21 12:18] LABS: Calcium 8.5 mg/dl (8.5-10.1)
--- NOTE | 2022-12-21 16:00 | Hospitalist Progress Note ---
Date of Service December 21, 2022 Assessment & Plan (1) Sepsis: Plan: Secondary to complicated UTI Started on intravenous cefepime And has been growing gram-negative bacilli further identification and sensitivities are pending Patient seems to be clinically better Clinically much better Has been growing Proteus sensitive to current antibiotic HTN, BP on the lower side, patient on multiple BP medications Chronic anemia, hemoglobin at baseline hemolytic anemia as per records Hemoglobin remained stable (2) Acute UTI (urinary tract infection): Plan: As above Laceration of the scrotum Urology consult Appreciate input and recommendation (3) CAD (coronary artery disease): Plan: hx CAD sp CABG/stenting Aortic stenosis sp bioprosthetic AVR TAA status post surgery PFO as per records SSS sp PPM not on anticoagulation secondary to bleeding/fall risk hx TIA (4) Aortocoronary bypass status: (5) Elevated troponin: Plan: Has had chest pain Troponin was mildly elevated and serial troponin while equivocal but elevated Will get echo to evaluate LV function Echo -there is mild concentric LVH, septal motion is abnormal consistent with right ventricular pacemaker activation, LV systolic function is low normal at 50 to 55%, there is bioprosthetic aortic valve without suggestive of prosthetic valve stenosis or regurgitation, mild MR Grade 2 diastolic dysfunction there is mild TR No ACS (6) Dementia: Plan: hx Parkinson's disease/Lewy body dementia Continue current medications for dementia and Parkinson disease Has had agitation this afternoon and required IM Haldol We will continue PT and OT (7) Pacemaker: (8) Weakness: Plan: We will get PT and OT evaluation (9) HTN (hypertension): Plan: Blood pressure is controlled and will continue current medication Plan DVT prophylaxis Subcu Lovenox CODE STATUS DNR/DNI Patient's requesting updates from providers. Ms. Audelia Hdz, contact number [phone]. Admission and Anticipated Discharge Date Admission Date: December 19, 2022 Subjective 12/20/2022 The patient was seen and examined in medical telemetry unit He has been out of bed on a chair Denies any significant symptoms during my examination He was noted to be very agitated and combative later on and that required IM Haldol 12/21/2022 The patient was seen and examined in medical telemetry unit Has been feeling much better but he still cannot feed himself No more agitation Ferris has been out No fever and no chills Review of Systems Review of Systems: All systems reviewed and are unremarkable except as noted below Physical Exam Physical Exam: Sitting on a chair without any acute distress Constitutional: well developed, well nourished, + ill appearing and + obese Eyes: PERRL, conjunctivae normal, anicteric sclerae ENMT: external ear and nose normal, oropharynx normal Neck: trachea midline, no thyromegaly Respiratory: no respiratory distress Auscultation: + diminished lung sounds and + crackles (Minimal crackles at the bases) Cardiovascular: Rate/Rhythm: regular rate and regular rhythm; not tachycardic Heart Sounds: normal S1, normal S2 and + murmur (2/6 ESM over precordium) Extremities: no edema Gastrointestinal (Abdomen): Inspection/Auscultation: normal bowel sounds; abdomen not distended Percussion/Palpation: abdomen soft; abdomen nontender Musculoskeletal: No acute arthritis in any of the joint Neurologic: Alert and awake. Pleasantly confused. Generally weak Lymphatic: no cervical or axillary lymphadenopathy Results & Data Results & Data ([facility]) Vital Signs (Past 12 Hours) Vital Signs Temp Pulse Pulse Resp BP Pulse Ox O2 Del Method 12/21/22 15:30 56 L 12/21/22 15:28 36.6 C 60 20 161/93 H 94 Room Air 12/21/22 15:07 36.7 C 62 18 154/71 H 95 Room Air 12/21/22 14:36 36.8 C 60 18 167/83 H 96 Room Air 12/21/22 11:13 Room Air 12/21/22 09:36 36.8 C 71 18 152/78 H 95 Room Air 12/21/22 08:00 36.6 C 68 18 136/79 96 Room Air 12/21/22 07:24 61 Laboratory Results Short CBC 12/21/22 Range/Units 07:58 WBC 5.92 (4.8-10.8) K/ul Hgb 10.8 L (14.0-18.0) g/dl Hct 32.2 L (42.0-52.0) % Plt Count 180 (130-400) K/uL BMP 12/21/22 07:58 Sodium 140 Potassium 3.4 L Chloride 107 Carbon Dioxide 29 BUN 21 Creatinine 0.94 Glucose 92 Calcium 8.5 Medications Administered Current Inpatient Medications Aspirin (Aspirin 81 Mg Ectab) [facility] [place]: 01/18/23 08:59 Last Admin: 12/21/22 08:03 Dose: 81 mg Atorvastatin Calcium (Atorvastatin 20 Mg Tab) 20 mg PO QPM [facility] Stop: 01/18/23 20:59 Last Admin: 12/20/22 20:16 Dose: 20 mg Carbidopa/Levodopa (Carbidopa/Levodopa 25/100mg Tab) 1 tab PO BID [facility] Stop: 01/18/23 08:59 Last Admin: 12/21/22 08:01 Dose: 1 tab Donepezil HCl (Donepezil Hcl 5 Mg Tab) 5 mg PO QAM [facility] Stop: 01/18/23 08:59 Last Admin: 12/21/22 08:02 Dose: 5 mg Enoxaparin Sodium (Enoxaparin Inj 40 Mg/0.4 Ml Syr) 40 mg SQ QAM [facility] Stop: 01/18/23 08:59 Last Admin: 12/21/22 08:02 Dose: 40 mg Promethazine HCl 6.25 mg/ (Sodium Chloride) 50.25 mls @ 201 mls/hr IV Q6H PRN PRN Reason: Nausea And Vomiting Stop: 01/18/23 06:06 Cefepime HCl 2,000 mg/ Syringe 20 mls @ 5 mls/min IV Q12H [facility]; Protocol Stop: 12/30/22 15:59 Last Admin: 12/21/22 08:09 Dose: 5 mls/min Metoprolol Tartrate (Metoprolol Tartrate 25 Mg Tab) 12.5 mg PO BID [facility] Stop: 01/18/23 08:59 Last Admin: 12/21/22 08:01 Dose: 12.5 mg Polyethylene Glycol (Polyethylene (Miralax) 17 Gm Pack) 17 gm PO QAM [facility] Stop: 01/18/23 08:59 Last Admin: 12/21/22 08:04 Dose: 17 gm Senna/Docusate Sodium (Docusate Sodium/Senna 50/8.6mg Tab) 1 tab PO QAM [facility] Stop: 01/18/23 08:59 Last Admin: 12/21/22 08:04 Dose: 1 tab
[2022-12-21] MEDS: ATORVASTATIN 20 MG TAB PO SCH (20:17)
[2022-12-22 06:58] LABS: Basophils # (auto) 0.03 K/uL (0-0.2); Basophils % (auto) 0.5 %; Eosinophils # (auto) 0.12 K/uL (0-0.50); Eosinophils % (auto) 1.9 %; Hemoglobin 11.3 g/dl (14.0-18.0); Immature Granulocytes # (auto) 0.02 K/uL (0.01-0.20); Immature Granulocytes % (auto) 0.3 %; Lymphocytes # (auto) 1.07 K/uL (1.2-3.4); Lymphocytes % (auto) 17.4 %; Mean Corpuscular Hgb Conc 33.2 g/dL (32.0-36.0); Mean Corpuscular Volume 93.2 fL (80.0-100.0); Mean Platelet Volume 10.4 fL (9.4-12.4); Neutrophils # (auto) 4.12 K/uL (1.40-6.50); Neutrophils % (auto) 66.9 %; Platelet Count 185 K/uL (130-400); RDW Coefficient of Variation 13.8 % (11.5-14.5); RDW Standard Deviation 47.5 fL (36.4-46.3); Red Blood Count 3.65 M/uL (4.70-6.10); White Blood Count 6.16 K/ul (4.8-10.8)
[2022-12-22 07:21] LABS: BUN Creatinine Ratio 22.4 (10-20); Creatinine Clr Calc Pharmacy 79.2 ml/min; Est GFR (African American) 90.8 ml/min; Est GFR (Non-African American) 78.3 ml/min; Potassium 3.8 mmol/L (3.5-5.1)
[2022-12-22] MEDS: ASPIRIN 81 MG ECTAB PO SCH (08:02)
[2022-12-22] MEDS: CARBIDOPA/LEVODOPA 25/100MG TAB PO SCH ×2 (08:02→20:00)
[2022-12-22] MEDS: METOPROLOL TARTRATE 25 MG TAB PO SCH ×2 (08:02→20:01)
[2022-12-22] MEDS: DONEPEZIL HCL 5 MG TAB PO SCH (08:03)
[2022-12-22] MEDS: ENOXAPARIN INJ 40 MG/0.4 ML SYR SQ SCH (08:03)
[2022-12-22] MEDS: POLYETHYLENE (MIRALAX) 17 GM PACK PO SCH (08:04)
[2022-12-22] MEDS: DOCUSATE SODIUM/SENNA 50/8.6MG TAB PO SCH (08:06)
[2022-12-22] MEDS: CEFEPIME 2,000 MG in SYRINGE 0 ML IV SCH ×2 (08:06→20:00)
--- NOTE | 2022-12-22 14:24 | Hospitalist Progress Note ---
Date of Service December 22, 2022 Assessment & Plan (1) Sepsis: Plan: Secondary to complicated UTI Started on intravenous cefepime And has been growing gram-negative bacilli further identification and sensitivities are pending Patient seems to be clinically better Clinically much better Has been growing Proteus sensitive to current antibiotic Clinically much better without any evidence of fever and or chills and infection Will change to oral meds on discharge Most likely Pressure ulcers of left gluteal fold/ischium and L scrotum, unstageable, POA Noted to have a small ulcer on the left gluteal area Scrotal edema with chronic skin changes and small ulcers noted as well Wound care consulted Will require cleaning and dressing and was advised to keep it dry HTN, BP on the lower side, patient on multiple BP medications Chronic anemia, hemoglobin at baseline hemolytic anemia as per records Hemoglobin remained stable (2) Acute UTI (urinary tract infection): Plan: As above Laceration of the scrotum Urology consult Appreciate input and recommendation Does not require any follow-up as per the urologist (3) CAD (coronary artery disease): Plan: hx CAD sp CABG/stenting Aortic stenosis sp bioprosthetic AVR TAA status post surgery PFO as per records SSS sp PPM not on anticoagulation secondary to bleeding/fall risk hx TIA (4) Aortocoronary bypass status: (5) Elevated troponin: Plan: Elevated troponin secondary to demand ischemia Presented with chest pain-difficult to pinpoint secondary to mild dementia Troponin was mildly elevated and serial troponin while equivocal but elevated Will get echo to evaluate LV function Echo -there is mild concentric LVH, septal motion is abnormal consistent with right ventricular pacemaker activation, LV systolic function is low normal at 50 to 55%, there is bioprosthetic aortic valve without suggestive of prosthetic valve stenosis or regurgitation, mild MR Grade 2 diastolic dysfunction there is mild TR No ACS (6) Dementia: Plan: hx Parkinson's disease/Lewy body dementia Continue current medications for dementia and Parkinson disease Has had agitation this afternoon and required IM Haldol We will continue PT and OT (7) Pacemaker: (8) Weakness: Plan: We will get PT and OT evaluation (9) HTN (hypertension): Plan: Blood pressure is controlled and will continue current medication Plan DVT prophylaxis Subcu Lovenox CODE STATUS DNR/DNI Patient's requesting updates from providers. Audelia Hdz, contact number [phone]. Admission and Anticipated Discharge Date Admission Date: December 19, 2022 Subjective 12/20/2022 The patient was seen and examined in medical telemetry unit He has been out of bed on a chair Denies any significant symptoms during my examination He was noted to be very agitated and combative later on and that required IM Haldol 12/21/2022 The patient was seen and examined in medical telemetry unit Has been feeling much better but he still cannot feed himself No more agitation Ferris has been out No fever and no chills 12/22/2022 The patient was seen and examined in medical telemetry unit He has had episodes of agitation last evening again but not this morning Has been answering slowly all of my questions Denies any significant symptoms Trying to eat by himself Review of Systems Review of Systems: All systems reviewed and are unremarkable except as noted below Physical Exam Physical Exam: Sitting on a chair without any acute distress Constitutional: well developed, well nourished, + ill appearing and + obese Eyes: PERRL, conjunctivae normal, anicteric sclerae ENMT: external ear and nose normal, oropharynx normal Neck: trachea midline, no thyromegaly Respiratory: no respiratory distress Auscultation: + diminished lung sounds and + crackles (Minimal crackles at the bases) Cardiovascular: Rate/Rhythm: regular rate and regular rhythm; not tachycardic Heart Sounds: normal S1, normal S2 and + murmur (2/6 ESM over precordium) Extremities: no edema Gastrointestinal (Abdomen): Inspection/Auscultation: normal bowel sounds; abdomen not distended Percussion/Palpation: abdomen soft; abdomen nontender Musculoskeletal: No acute arthritis involving any joint Skin: This small sacral decubiti at the left side and scrotal wound and urine the pictures Lymphatic: no cervical or axillary lymphadenopathy Results & Data Results & Data ([facility]) Vital Signs (Past 12 Hours) Vital Signs Temp Pulse Pulse Resp BP BP BP 12/22/22 11:33 36.7 C 60 18 151/85 H 12/22/22 11:08 12/22/22 07:29 36.7 C 60 18 162/94 H 12/22/22 04:15 36.3 C L 52 L 16 148/81 H 12/22/22 03:04 36.3 C L 52 L 18 148/81 H Pulse Ox O2 Del Method 12/22/22 11:33 96 Room Air 12/22/22 11:08 Room Air 12/22/22 07:29 96 Room Air 12/22/22 04:15 94 Room Air 12/22/22 03:04 94 Room Air Laboratory Results Short CBC 12/22/22 Range/Units 06:38 WBC 6.16 (4.8-10.8) K/ul Hgb 11.3 L (14.0-18.0) g/dl Hct 34.0 L (42.0-52.0) % Plt Count 185 (130-400) K/uL BMP 12/22/22 06:38 Sodium 139 Potassium 3.8 Chloride 107 Carbon Dioxide 29 BUN 19 Creatinine 0.85 Glucose 92 Calcium 9.0 Medications Administered Current Inpatient Medications Aspirin (Aspirin 81 Mg Ectab) [facility] [place] [facility]: 01/18/23 08:59 Last Admin: 12/22/22 08:02 Dose: 81 mg Atorvastatin Calcium (Atorvastatin 20 Mg Tab) 20 mg PO QPM [facility] Stop: 01/18/23 20:59 Last Admin: 12/21/22 20:17 Dose: 20 mg Carbidopa/Levodopa (Carbidopa/Levodopa 25/100mg Tab) 1 tab PO BID [facility] Stop: 01/18/23 08:59 Last Admin: 12/22/22 08:02 Dose: 1 tab Donepezil HCl (Donepezil Hcl 5 Mg Tab) [facility] [place] Stop: 01/18/23 08:59 Last Admin: 12/22/22 08:03 Dose: 5 mg Enoxaparin Sodium (Enoxaparin Inj 40 Mg/0.4 Ml Syr) 40 [facility] [place] Stop: 01/18/23 08:59 Last Admin: 12/22/22 08:03 Dose: 40 mg Promethazine HCl 6.25 mg/ (Sodium Chloride) 50.25 mls @ 201 mls/hr IV Q6H PRN PRN Reason: Nausea And Vomiting Stop: 01/18/23 06:06 Cefepime HCl 2,000 mg/ Syringe 20 mls @ 5 mls/min IV Q12H [facility]; Protocol Stop: 12/30/22 15:59 Last Admin: 12/22/22 08:06 Dose: 5 mls/min Metoprolol Tartrate (Metoprolol Tartrate 25 Mg Tab) 12.5 mg PO BID [facility] Stop: 01/18/23 08:59 Last Admin: 12/22/22 08:02 Dose: 12.5 mg Polyethylene Glycol (Polyethylene (Miralax) 17 Gm Pack) 17 gm PO QAM [facility] Stop: 01/18/23 08:59 Last Admin: 12/22/22 08:04 Dose: 17 gm Senna/Docusate Sodium (Docusate Sodium/Senna 50/8.6mg Tab) 1 tab PO QAM [facility] Stop: 01/18/23 08:59 Last Admin: 12/22/22 08:06 Dose: 1 tab
[2022-12-22] MEDS: ATORVASTATIN 20 MG TAB PO SCH (20:01)
[2022-12-23] MEDS: POLYETHYLENE (MIRALAX) 17 GM PACK PO SCH (07:20)
[2022-12-23] MEDS: ENOXAPARIN INJ 40 MG/0.4 ML SYR SQ SCH (07:20)
[2022-12-23] MEDS: DOCUSATE SODIUM/SENNA 50/8.6MG TAB PO SCH (07:21)
[2022-12-23] MEDS: ASPIRIN 81 MG ECTAB PO SCH (07:21)
[2022-12-23] MEDS: CARBIDOPA/LEVODOPA 25/100MG TAB PO SCH ×2 (07:21→20:12)
[2022-12-23] MEDS: METOPROLOL TARTRATE 25 MG TAB PO SCH ×2 (07:21→20:11)
[2022-12-23] MEDS: DONEPEZIL HCL 5 MG TAB PO SCH (07:21)
[2022-12-23] MEDS: CEFEPIME 2,000 MG in SYRINGE 0 ML IV SCH ×2 (07:22→20:14)
--- NOTE | 2022-12-23 13:55 | Hospitalist Progress Note ---
Date of Service December 23, 2022 Assessment & Plan (1) Sepsis: Plan: Secondary to complicated UTI Started on intravenous cefepime And has been growing gram-negative bacilli further identification and sensitivities are pending Patient seems to be clinically better Clinically much better Has been growing Proteus sensitive to current antibiotic Clinically much better without any evidence of fever and or chills and infection Will change to oral meds on discharge Denies any urinary symptoms and no fever and no chills Most likely Pressure ulcers of left gluteal fold/ischium and L scrotum, unstageable, POA Noted to have a small ulcer on the left gluteal area Scrotal edema with chronic skin changes and small ulcers noted as well Wound care consulted Will require cleaning and dressing and was advised to keep it dry HTN, BP on the lower side, patient on multiple BP medications Chronic anemia, hemoglobin at baseline hemolytic anemia as per records Hemoglobin remained stable (2) Acute UTI (urinary tract infection): Plan: As above Laceration of the scrotum Urology consult Appreciate input and recommendation Does not require any follow-up as per the urologist Discussed with the urologist (3) CAD (coronary artery disease): Plan: hx CAD sp CABG/stenting Aortic stenosis sp bioprosthetic AVR TAA status post surgery PFO as per records SSS sp PPM not on anticoagulation secondary to bleeding/fall risk hx TIA No acute cardiac symptoms (4) Aortocoronary bypass status: (5) Elevated troponin: Plan: Elevated troponin secondary to demand ischemia Presented with chest pain-difficult to pinpoint secondary to mild dementia Troponin was mildly elevated and serial troponin while equivocal but elevated Will get echo to evaluate LV function Echo -there is mild concentric LVH, septal motion is abnormal consistent with right ventricular pacemaker activation, LV systolic function is low normal at 50 to 55%, there is bioprosthetic aortic valve without suggestive of prosthetic valve stenosis or regurgitation, mild MR Grade 2 diastolic dysfunction there is mild TR No ACS (6) Dementia: Plan: hx Parkinson's disease/Lewy body dementia Continue current medications for dementia and Parkinson disease Has had agitation this afternoon and required IM Haldol We will continue PT and OT (7) Pacemaker: (8) Weakness: Plan: We will get PT and OT evaluation (9) HTN (hypertension): Plan: Blood pressure is controlled and will continue current medication Plan DVT prophylaxis Subcu Lovenox CODE STATUS DNR/DNI Patient's requesting updates from providers. Ms. Audelia Hdz, contact number [phone]. Admission and Anticipated Discharge Date Admission Date: December 19, 2022 Subjective 12/20/2022 The patient was seen and examined in medical telemetry unit He has been out of bed on a chair Denies any significant symptoms during my examination He was noted to be very agitated and combative later on and that required IM Haldol 12/21/2022 The patient was seen and examined in medical telemetry unit Has been feeling much better but he still cannot feed himself No more agitation Ferris has been out No fever and no chills 12/22/2022 The patient was seen and examined in medical telemetry unit He has had episodes of agitation last evening again but not this morning Has been answering slowly all of my questions Denies any significant symptoms Trying to eat by himself 12/23/2022 The patient was seen and examined in medical telemetry unit He has been stable but has not been eating and drinking enough Denies any symptoms and there is no fever and or chills Likely to go back [facility] tomorrow Review of Systems Review of Systems: All systems reviewed and are unremarkable except as noted below Physical Exam Physical Exam: Sitting on a chair without any acute distress Constitutional: well developed, well nourished, + ill appearing and + obese Eyes: PERRL, conjunctivae normal, anicteric sclerae ENMT: external ear and nose normal, oropharynx normal Neck: trachea midline, no thyromegaly Respiratory: no respiratory distress Auscultation: + diminished lung sounds and + crackles (Minimal crackles at the bases) Cardiovascular: Rate/Rhythm: regular rate and regular rhythm; not tachycardic Heart Sounds: normal S1, normal S2 and + murmur (2/6 ESM over precordium) Extremities: no edema Gastrointestinal (Abdomen): Inspection/Auscultation: normal bowel sounds; abdomen not distended Percussion/Palpation: abdomen soft; abdomen nontender Musculoskeletal: No acute arthritis in any joint Neurologic: Alert and awake. Very slow to answer questions. Generally weak and lethargic Lymphatic: no cervical or axillary lymphadenopathy Results & Data Results & Data ([facility]) Vital Signs (Past 12 Hours) Vital Signs Temp Pulse Resp BP Pulse Ox O2 Del Method 12/23/22 12:00 36.5 C 60 18 153/80 H 96 Room Air 12/23/22 08:00 Room Air 12/23/22 07:11 36.6 C 61 18 155/75 H 94 Room Air 12/23/22 03:00 36.7 C 58 L 18 165/83 H 96 Room Air Medications Administered Current Inpatient Medications Aspirin (Aspirin 81 Mg Ectab) [facility] [place] Stop: 01/18/23 08:59 Last Admin: 12/23/22 07:21 Dose: 81 mg Atorvastatin Calcium (Atorvastatin 20 Mg Tab) 20 mg PO QPM [facility] Stop: 01/18/23 20:59 Last Admin: 12/22/22 20:01 Dose: 20 mg Carbidopa/Levodopa (Carbidopa/Levodopa 25/100mg Tab) 1 tab PO BID [facility] Stop: 01/18/23 08:59 Last Admin: 12/23/22 07:21 Dose: 1 tab Donepezil HCl (Donepezil Hcl 5 Mg Tab) [facility] [place] Stop: 01/18/23 08:59 Last Admin: 12/23/22 07:21 Dose: 5 mg Enoxaparin Sodium (Enoxaparin Inj 40 Mg/0.4 Ml Syr) 40 [facility] [place] Stop: 01/18/23 08:59 Last Admin: 12/23/22 07:20 Dose: 40 mg Promethazine HCl 6.25 mg/ (Sodium Chloride) 50.25 mls @ 201 mls/hr IV Q6H PRN PRN Reason: Nausea And Vomiting Stop: 01/18/23 06:06 Cefepime HCl 2,000 mg/ Syringe 20 mls @ 5 mls/min IV Q12H [facility]; Protocol Stop: 12/30/22 15:59 Last Admin: 12/23/22 07:22 Dose: 5 mls/min Metoprolol Tartrate (Metoprolol Tartrate 25 Mg Tab) 12.5 mg PO BID [facility] Stop: 01/18/23 08:59 Last Admin: 12/23/22 07:21 Dose: 12.5 mg Polyethylene Glycol (Polyethylene (Miralax) 17 Gm Pack) 17 gm PO QAM [facility] Stop: 01/18/23 08:59 Last Admin: 12/23/22 07:20 Dose: 17 gm Senna/Docusate Sodium (Docusate Sodium/Senna 50/8.6mg Tab) 1 tab PO QAM [facility] Stop: 01/18/23 08:59 Last Admin: 12/23/22 07:21 Dose: 1 tab
[2022-12-23] MEDS: ATORVASTATIN 20 MG TAB PO SCH (20:12)
[2022-12-24] MEDS: DONEPEZIL HCL 5 MG TAB PO SCH (08:35)
[2022-12-24] MEDS: METOPROLOL TARTRATE 25 MG TAB PO SCH ×2 (08:35→20:15)
[2022-12-24] MEDS: ASPIRIN 81 MG ECTAB PO SCH (08:35)
[2022-12-24] MEDS: DOCUSATE SODIUM/SENNA 50/8.6MG TAB PO SCH (08:38)
[2022-12-24] MEDS: CARBIDOPA/LEVODOPA 25/100MG TAB PO SCH ×2 (08:38→20:15)
[2022-12-24] MEDS: POLYETHYLENE (MIRALAX) 17 GM PACK PO SCH (08:39)
[2022-12-24] MEDS: ENOXAPARIN INJ 40 MG/0.4 ML SYR SQ SCH (08:40)
[2022-12-24] MEDS: cephALEXin 500 MG CAP PO SCH ×4 (09:13→20:15)
--- NOTE | 2022-12-24 15:51 | Hospitalist Progress Note ---
Date of Service December 24, 2022 Assessment & Plan (1) Sepsis: Plan: Secondary to complicated UTI Started on intravenous cefepime And has been growing gram-negative bacilli further identification and sensitivities are pending Patient seems to be clinically better Clinically much better Has been growing Proteus sensitive to current antibiotic Clinically much better without any evidence of fever and or chills and infection Will change to oral meds on discharge Denies any urinary symptoms and no fever and no chills Will finish the course of antibiotic Most likely Pressure ulcers of left gluteal fold/ischium and L scrotum, unstageable, POA Noted to have a small ulcer on the left gluteal area Scrotal edema with chronic skin changes and small ulcers noted as well Wound care consulted Will require cleaning and dressing and was advised to keep it dry HTN, BP on the lower side, patient on multiple BP medications Chronic anemia, hemoglobin at baseline hemolytic anemia as per records Hemoglobin remained stable (2) Acute UTI (urinary tract infection): Plan: As above Laceration of the scrotum Urology consult Appreciate input and recommendation Does not require any follow-up as per the urologist Discussed with the urologist (3) CAD (coronary artery disease): Plan: hx CAD sp CABG/stenting Aortic stenosis sp bioprosthetic AVR TAA status post surgery PFO as per records SSS sp PPM not on anticoagulation secondary to bleeding/fall risk hx TIA No acute cardiac symptoms (4) Aortocoronary bypass status: (5) Elevated troponin: Plan: Elevated troponin secondary to demand ischemia Presented with chest pain-difficult to pinpoint secondary to mild dementia Troponin was mildly elevated and serial troponin while equivocal but elevated Will get echo to evaluate LV function Echo -there is mild concentric LVH, septal motion is abnormal consistent with right ventricular pacemaker activation, LV systolic function is low normal at 50 to 55%, there is bioprosthetic aortic valve without suggestive of prosthetic valve stenosis or regurgitation, mild MR Grade 2 diastolic dysfunction there is mild TR No ACS (6) Dementia: Plan: hx Parkinson's disease/Lewy body dementia Continue current medications for dementia and Parkinson disease Has had agitation this afternoon and required IM Haldol We will continue PT and OT-could not be done due to agitation-will be tried again Has been combative at times and required one-to-one sitter (7) Pacemaker: (8) Weakness: Plan: We will get PT and OT evaluation (9) HTN (hypertension): Plan: Blood pressure is controlled and will continue current medication Plan DVT prophylaxis Subcu Lovenox CODE STATUS DNR/DNI Patient's requesting updates from providers. Ms. Audelia Hdz, contact number [phone]. Admission and Anticipated Discharge Date Admission Date: December 19, 2022 Subjective 12/20/2022 The patient was seen and examined in medical telemetry unit He has been out of bed on a chair Denies any significant symptoms during my examination He was noted to be very agitated and combative later on and that required IM Haldol 12/21/2022 The patient was seen and examined in medical telemetry unit Has been feeling much better but he still cannot feed himself No more agitation Ferris has been out No fever and no chills 12/22/2022 The patient was seen and examined in medical telemetry unit He has had episodes of agitation last evening again but not this morning Has been answering slowly all of my questions Denies any significant symptoms Trying to eat by himself 12/23/2022 The patient was seen and examined in medical telemetry unit He has been stable but has not been eating and drinking enough Denies any symptoms and there is no fever and or chills Likely to go back to [facility] tomorrow 12/24/2022 The patient was seen and examined in medical telemetry unit He has been stable but he still requiring to be fed Generally weak and lethargic No other acute distress Review of Systems Review of Systems: All systems reviewed and are unremarkable except as noted below Physical Exam Physical Exam: Lying in bed without any acute distress Constitutional: well developed, well nourished, + ill appearing and + obese Eyes: PERRL, conjunctivae normal, anicteric sclerae ENMT: external ear and nose normal, oropharynx normal Neck: trachea midline, no thyromegaly Respiratory: no respiratory distress Auscultation: + diminished lung sounds and + crackles (Minimal crackles at the bases) Cardiovascular: Rate/Rhythm: regular rate and regular rhythm; not tachycardic Heart Sounds: normal S1, normal S2 and + murmur (2/6 ESM over precordium) Extremities: no edema Gastrointestinal (Abdomen): Inspection/Auscultation: normal bowel sounds; abdomen not distended Percussion/Palpation: abdomen soft; abdomen nontender Musculoskeletal: No acute arthritis involving any of the joint Neurologic: Has been communicating very softly and slowly. Pleasantly confused. No parkinsonian tremor Lymphatic: no cervical or axillary lymphadenopathy Results & Data Results & Data ([facility]) Vital Signs (Past 12 Hours) Vital Signs Temp Pulse Pulse Resp BP Pulse Ox O2 Del Method 12/24/22 15:37 66 12/24/22 11:16 37.5 C 54 L 14 133/79 96 Room Air 12/24/22 10:13 Room Air 12/24/22 08:00 60 18 161/93 H 96 Room Air 12/24/22 07:19 66 Medications Administered Current Inpatient Medications Aspirin (A[facility]in 81 Mg Ectab) [facility] [place]: 01/18/23 08:59 Last Admin: 12/24/22 08:35 Dose: 81 mg Atorvastatin Calcium (Atorvastatin 20 Mg Tab) 20 mg PO QPM [facility] Stop: 01/18/23 20:59 Last Admin: 12/23/22 20:12 Dose: 20 mg Carbidopa/Levodopa (Carbidopa/Levodopa 25/100mg Tab) 1 tab PO BID [facility] Stop: 01/18/23 08:59 Last Admin: 12/24/22 08:38 Dose: 1 tab Cephalexin HCl (Cephalexin 500 Mg Cap) 500 mg PO QID [facility] Stop: 12/28/22 23:59 Last Admin: 12/24/22 12:27 Dose: 500 mg Donepezil HCl (Donepezil Hcl 5 Mg Tab) [facility] [place]: 01/18/23 08:59 Last Admin: 12/24/22 08:35 Dose: 5 mg Enoxaparin Sodium (Enoxaparin Inj 40 Mg/0.4 Ml Syr) [facility]: 01/18/23 08:59 Last Admin: 12/24/22 08:40 Dose: 40 mg Promethazine HCl 6.25 mg/ (Sodium Chloride) 50.25 mls @ 201 mls/hr IV Q6H PRN PRN Reason: Nausea And Vomiting Stop: 01/18/23 06:06 Last Infusion: 12/23/22 17:47 Dose: Infused Metoprolol Tartrate (Metoprolol Tartrate 25 Mg Tab) 12.5 mg PO BID [facility] Stop: 01/18/23 08:59 Last Admin: 12/24/22 08:35 Dose: 12.5 mg Polyethylene Glycol (Polyethylene (Miralax) 17 Gm Pack) 17 gm PO QAM [facility] Stop: 01/18/23 08:59 Last Admin: 12/24/22 08:39 Dose: 17 gm Senna/Docusate Sodium (Docusate Sodium/Senna 50/8.6mg Tab) 1 tab PO QAM [facility] Stop: 01/18/23 08:59 Last Admin: 12/24/22 08:38 Dose: 1 tab
[2022-12-24] MEDS: ATORVASTATIN 20 MG TAB PO SCH (20:15)
[2022-12-25 08:23] LABS: Basophils # (auto) 0.02 K/uL (0-0.2); Basophils % (auto) 0.3 %; Eosinophils # (auto) 0.14 K/uL (0-0.50); Eosinophils % (auto) 2.3 %; Hematocrit (blood only) 38.5 % (42.0-52.0); Hemoglobin 12.7 g/dl (14.0-18.0); Immature Granulocytes # (auto) 0.02 K/uL (0.01-0.20); Immature Granulocytes % (auto) 0.3 %; Lymphocytes # (auto) 1.37 K/uL (1.2-3.4); Lymphocytes % (auto) 22.8 %; Mean Corpuscular Hemoglobin 30.7 pg (25.0-34.0); Mean Platelet Volume 10.4 fL (9.4-12.4); Monocytes # (auto) 0.81 K/uL (0.11-0.59); Monocytes % (auto) 13.5 %; Neutrophils # (auto) 3.65 K/uL (1.40-6.50); Neutrophils % (auto) 60.8 %; Platelet Count 245 K/uL (130-400); RDW Coefficient of Variation 13.6 % (11.5-14.5); RDW Standard Deviation 46.7 fL (36.4-46.3); Red Blood Count 4.14 M/uL (4.70-6.10); White Blood Count 6.01 K/ul (4.8-10.8)
[2022-12-25 08:31] LABS: Calcium 9.7 mg/dl (8.5-10.1); Creatinine Clr Calc Pharmacy 65.6 ml/min; Est GFR (African American) 78.1 ml/min; Est GFR (Non-African American) 67.4 ml/min; Potassium 4.1 mmol/L (3.5-5.1)
[2022-12-25] MEDS: CARBIDOPA/LEVODOPA 25/100MG TAB PO SCH ×2 (08:48→20:17)
[2022-12-25] MEDS: ASPIRIN 81 MG ECTAB PO SCH (08:49)
[2022-12-25] MEDS: cephALEXin 500 MG CAP PO SCH ×4 (08:49→20:17)
[2022-12-25] MEDS: DONEPEZIL HCL 5 MG TAB PO SCH (08:49)
[2022-12-25] MEDS: METOPROLOL TARTRATE 25 MG TAB PO SCH ×2 (08:50→20:17)
[2022-12-25] MEDS: ENOXAPARIN INJ 40 MG/0.4 ML SYR SQ SCH (08:50)
[2022-12-25] MEDS: DOCUSATE SODIUM/SENNA 50/8.6MG TAB PO SCH (11:22)
[2022-12-25] MEDS: POLYETHYLENE (MIRALAX) 17 GM PACK PO SCH (11:23)
--- NOTE | 2022-12-25 14:23 | Hospitalist Progress Note ---
Date of Service December 25, 2022 Assessment & Plan (1) Sepsis: Plan: Secondary to complicated UTI Started on intravenous cefepime And has been growing gram-negative bacilli further identification and sensitivities are pending Patient seems to be clinically better Clinically much better Has been growing Proteus sensitive to current antibiotic Clinically much better without any evidence of fever and or chills and infection Will change to oral meds on discharge Denies any urinary symptoms and no fever and no chills Will finish the course of antibiotic Still requiring assistance with feeding which he was doing by himself in the facility Will need PT and OT evaluation prior to discharge Most likely Pressure ulcers of left gluteal fold/ischium and L scrotum, unstageable, POA Noted to have a small ulcer on the left gluteal area Scrotal edema with chronic skin changes and small ulcers noted as well Wound care consulted Will require cleaning and dressing and was advised to keep it dry HTN, BP on the lower side, patient on multiple BP medications Chronic anemia, hemoglobin at baseline hemolytic anemia as per records Hemoglobin remained stable (2) Acute UTI (urinary tract infection): Plan: As above Laceration of the scrotum Urology consult Appreciate input and recommendation Does not require any follow-up as per the urologist Discussed with the urologist (3) CAD (coronary artery disease): Plan: hx CAD sp CABG/stenting Aortic stenosis sp bioprosthetic AVR TAA status post surgery PFO as per records SSS sp PPM not on anticoagulation secondary to bleeding/fall risk hx TIA No acute cardiac symptoms (4) Aortocoronary bypass status: (5) Elevated troponin: Plan: Elevated troponin secondary to demand ischemia Presented with chest pain-difficult to pinpoint secondary to mild dementia Troponin was mildly elevated and serial troponin while equivocal but elevated Will get echo to evaluate LV function Echo -there is mild concentric LVH, septal motion is abnormal consistent with right ventricular pacemaker activation, LV systolic function is low normal at 50 to 55%, there is bioprosthetic aortic valve without suggestive of prosthetic valve stenosis or regurgitation, mild MR Grade 2 diastolic dysfunction there is mild TR No ACS (6) Dementia: Plan: hx Parkinson's disease/Lewy body dementia Continue current medications for dementia and Parkinson disease Has had agitation this afternoon and required IM Haldol We will continue PT and OT-could not be done due to agitation-will be tried again Has been combative at times and required one-to-one sitter Has not been requiring any one-to-one sitter for the last 48 hours or more Does not have any acute behavioral problems (7) Pacemaker: (8) Weakness: Plan: We will get PT and OT evaluation (9) HTN (hypertension): Plan: Blood pressure is controlled and will continue current medication Plan DVT prophylaxis Subcu Lovenox CODE STATUS DNR/DNI Patient's requesting updates from providers. Ms. Audelia Hdz, contact number [phone]. Admission and Anticipated Discharge Date Admission Date: December 19, 2022 Subjective 12/20/2022 The patient was seen and examined in medical telemetry unit He has been out of bed on a chair Denies any significant symptoms during my examination He was noted to be very agitated and combative later on and that required IM Haldol 12/21/2022 The patient was seen and examined in medical telemetry unit Has been feeling much better but he still cannot feed himself No more agitation Ferris has been out No fever and no chills 12/22/2022 The patient was seen and examined in medical telemetry unit He has had episodes of agitation last evening again but not this morning Has been answering slowly all of my questions Denies any significant symptoms Trying to eat by himself 12/23/2022 The patient was seen and examined in medical telemetry unit He has been stable but has not been eating and drinking enough Denies any symptoms and there is no fever and or chills Likely to go back to personal-long-term tomorrow 12/24/2022 The patient was seen and examined in medical telemetry unit He has been stable but he still requiring to be fed Generally weak and lethargic No other acute distress 12/25/2022 Patient was seen and examined in medical telemetry unit He has been stable Very slow to respond but communicating Has not been eating or drinking by himself Advised to do that and he will Continue PT and OT Review of Systems Review of Systems: Unobtainable due to cognitive status Physical Exam Physical Exam: Lying in bed without any acute distress Constitutional: well developed, well nourished, + ill appearing and + obese Eyes: PERRL, conjunctivae normal, anicteric sclerae ENMT: external ear and nose normal, oropharynx normal Neck: trachea midline, no thyromegaly Respiratory: no respiratory distress Auscultation: + diminished lung sounds and + crackles (Minimal crackles at the bases) Cardiovascular: Rate/Rhythm: regular rate and regular rhythm; not tachycardic Heart Sounds: normal S1, normal S2 and + murmur (2/6 ESM over precordium) Extremities: no edema Gastrointestinal (Abdomen): Inspection/Auscultation: normal bowel sounds; abdomen not distended Percussion/Palpation: abdomen soft; abdomen nontender Musculoskeletal: No acute arthritis involving any joint Neurologic: .Alert and awake. Pleasantly confused. Generally very weak and lethargic Lymphatic: no cervical or axillary lymphadenopathy Results & Data Results & Data ([facility]) Vital Signs (Past 12 Hours) Vital Signs Temp Pulse Pulse Resp BP Pulse Ox O2 Del Method 12/25/22 08:00 63 12/25/22 08:00 Room Air 12/25/22 11:25 35 C L 54 L 14 131/83 97 Room Air 12/25/22 07:55 59 L 14 153/84 H 95 Room Air 12/25/22 06:00 36.5 C 60 151/81 H 95 Room Air 12/25/22 04:00 36.7 C 59 L 17 149/76 H 100 Room Air Laboratory Results Short CBC 12/25/22 Range/Units 07:57 WBC 6.01 (4.8-10.8) K/ul Hgb 12.7 L (14.0-18.0) g/dl Hct 38.5 L (42.0-52.0) % Plt Count 245 (130-400) K/uL BMP 12/25/22 07:57 Sodium 141 Potassium 4.1 Chloride 103 Carbon Dioxide 35 H BUN 23 Creatinine 1.00 Glucose 96 Calcium 9.7 Medications Administered Current Inpatient Medications Aspirin (Aspirin 81 Mg Ectab) 81 mg PO QAM [facility] Stop: 01/18/23 08:59 Last Admin: 12/25/22 08:49 Dose: 81 mg Atorvastatin Calcium (Atorvastatin 20 Mg Tab) 20 mg PO QPM [facility] Stop: 01/18/23 20:59 Last Admin: 12/24/22 20:15 Dose: 20 mg Carbidopa/Levodopa (Carbidopa/Levodopa 25/100mg Tab) 1 tab PO BID [facility] Stop: 01/18/23 08:59 Last Admin: 12/25/22 08:48 Dose: 1 tab Cephalexin HCl (Cephalexin 500 Mg Cap) 500 mg PO QID [facility] Stop: 12/28/22 23:59 Last Admin: 12/25/22 12:30 Dose: 500 mg Donepezil HCl (Donepezil Hcl 5 Mg Tab) 5 mg PO QAM [facility] Stop: 01/18/23 08:59 Last Admin: 12/25/22 08:49 Dose: 5 mg Enoxaparin Sodium (Enoxaparin Inj 40 Mg/0.4 Ml Syr) 40 mg SQ QAM [facility] Stop: 01/18/23 08:59 Last Admin: 12/25/22 08:50 Dose: 40 mg Promethazine HCl 6.25 mg/ (Sodium Chloride) 50.25 mls @ 201 mls/hr IV Q6H PRN PRN Reason: Nausea And Vomiting Stop: 01/18/23 06:06 Last Infusion: 12/23/22 17:47 Dose: Infused Metoprolol Tartrate (Metoprolol Tartrate 25 Mg Tab) 12.5 mg PO BID [facility] Stop: 01/18/23 08:59 Last Admin: 12/25/22 08:50 Dose: Not Given Polyethylene Glycol (Polyethylene (Miralax) 17 Gm Pack) 17 gm PO QAM [facility] Stop: 01/18/23 08:59 Last Admin: 12/25/22 11:23 Dose: 17 gm Senna/Docusate Sodium (Docusate Sodium/Senna 50/8.6mg Tab) 1 tab PO QAM [facility] Stop: 01/18/23 08:59 Last Admin: 12/25/22 11:22 Dose: 1 tab
[2022-12-25] MEDS: ATORVASTATIN 20 MG TAB PO SCH (20:17)
[2022-12-26] MEDS: METOPROLOL TARTRATE 25 MG TAB PO SCH ×2 (09:03→20:35)
[2022-12-26] MEDS: cephALEXin 500 MG CAP PO SCH ×4 (09:04→20:35)
[2022-12-26] MEDS: DONEPEZIL HCL 5 MG TAB PO SCH (09:04)
[2022-12-26] MEDS: ASPIRIN 81 MG ECTAB PO SCH (09:04)
[2022-12-26] MEDS: CARBIDOPA/LEVODOPA 25/100MG TAB PO SCH ×2 (09:04→20:35)
[2022-12-26] MEDS: DOCUSATE SODIUM/SENNA 50/8.6MG TAB PO SCH (09:06)
[2022-12-26] MEDS: POLYETHYLENE (MIRALAX) 17 GM PACK PO SCH (09:10)
[2022-12-26] MEDS: ENOXAPARIN INJ 40 MG/0.4 ML SYR SQ SCH (09:11)
--- NOTE | 2022-12-26 16:45 | Hospitalist Progress Note ---
Date of Service December 26, 2022 Assessment & Plan (1) Sepsis: Plan: Secondary to complicated UTI Blood cultures negative to date Urine culture grew Proteus mirabilis Received IV cefepime transition to Keflex Generalized weakness Deconditioning due to comorbidities Refuses PT OT Needs assistance with feeding Most likely Pressure ulcers of left gluteal fold/ischium and L scrotum, unstageable, POA Scrotal edema with chronic skin changes and small ulcers noted as well Continue Wound care Hypertension Continue metoprolol Resume amlodipine, losartan as able Other chronic conditions Chronic anemia, hemoglobin at baseline hemolytic anemia as per records Hemoglobin stable (2) Acute UTI (urinary tract infection): Plan: As above Laceration of the scrotum Urology consulted:Appreciate input and recommendation Does not require any follow-up as per the urologist (3) CAD (coronary artery disease): Plan: H/O CAD sp CABG/stenting Aortic stenosis S/P Bioprosthetic AVR TAA S/P surgery PFO as per records SSS sp PPM not on anticoagulation secondary to bleeding/fall risk H/O TIA No acute cardiac symptoms Continue aspirin, statin, metoprolol (4) Aortocoronary bypass status: (5) Elevated troponin: Plan: Elevated troponin secondary to demand ischemia --Troponin was mildly elevated and serial troponin while equivocal but elevated --Echo -there is mild concentric LVH, septal motion is abnormal consistent with right ventricular pacemaker activation, LV systolic function is low normal at 50 to 55%, there is bioprosthetic aortic valve without suggestive of prosthetic valve stenosis or regurgitation, mild MR. Grade 2 diastolic dysfunction there is mild TR --ACS Less likely (6) Dementia: Plan: H/O Parkinson's disease/Lewy body dementia Continue home meds Reorient frequently to minimize delirium (7) Pacemaker: (8) Weakness: Plan: As above (9) HTN (hypertension): Plan: As above Plan DVT Px: Lovenox SQ CODE STATUS DNR/DNI Admission and Anticipated Discharge Date Admission Date: December 19, 2022 Subjective Patient is seen and examined at bedside Having lunch with help of staff during my encounter Oriented to person only Poor historian Refused PT evaluation earlier today Offers no other complaints Review of Systems Review of Systems: Unobtainable due to cognitive status Physical Exam Physical Exam: Physical Exam: Vitals signs as noted above General Appearance: Chronic ill-appearing, thin, elderly, no apparent distress Head: normocephalic, Atraumatic Eyes: normal inspection, EOMI Neck: supple, Trachea midline Respiratory/Chest: Normal breath sounds, CTA, No accessory muscle use Cardiovascular: S1, S2, + murmur Abdomen/GI:Soft, Non tender, Bowel sounds present Extremities/Musculoskeletal:normal inspection, no edema Neurologic/Psych:AAOX1, grossly no focal neurological deficits Skin: normal color, warm Results & Data Results & Data ([facility]) Vital Signs (Past 12 Hours) Vital Signs Temp Pulse Pulse Resp BP Pulse Ox O2 Del Method 12/26/22 15:22 36.4 C L 60 16 130/76 96 Room Air 12/26/22 15:00 60 12/26/22 11:22 36.5 C 59 L 18 131/79 97 Room Air 12/26/22 09:30 Room Air 12/26/22 07:45 36.0 C L 60 18 157/96 H 99 Room Air 12/26/22 07:00 60
[2022-12-26] MEDS: ATORVASTATIN 20 MG TAB PO SCH (20:35)
[2022-12-27] MEDS: DONEPEZIL HCL 5 MG TAB PO SCH (09:22)
[2022-12-27] MEDS: ENOXAPARIN INJ 40 MG/0.4 ML SYR SQ SCH (09:22)
[2022-12-27] MEDS: ASPIRIN 81 MG ECTAB PO SCH (09:22)
[2022-12-27] MEDS: POLYETHYLENE (MIRALAX) 17 GM PACK PO SCH (09:22)
[2022-12-27] MEDS: cephALEXin 500 MG CAP PO SCH ×4 (09:22→19:44)
[2022-12-27] MEDS: METOPROLOL TARTRATE 25 MG TAB PO SCH ×2 (09:22→19:45)
[2022-12-27] MEDS: CARBIDOPA/LEVODOPA 25/100MG TAB PO SCH ×2 (09:22→19:45)
[2022-12-27] MEDS: DOCUSATE SODIUM/SENNA 50/8.6MG TAB PO SCH (09:24)
[2022-12-27 09:28] LABS: Hematocrit (blood only) 37.5 % (42.0-52.0); Hemoglobin 12.7 g/dl (14.0-18.0); Mean Corpuscular Hemoglobin 31.3 pg (25.0-34.0); Mean Corpuscular Hgb Conc 33.9 g/dL (32.0-36.0); Mean Corpuscular Volume 92.4 fL (80.0-100.0); Mean Platelet Volume 10.3 fL (9.4-12.4); Platelet Count 249 K/uL (130-400); RDW Coefficient of Variation 13.3 % (11.5-14.5); RDW Standard Deviation 45.7 fL (36.4-46.3); Red Blood Count 4.06 M/uL (4.70-6.10); White Blood Count 5.61 K/ul (4.8-10.8)
[2022-12-27 09:37] LABS: BUN Creatinine Ratio 27.5 (10-20); Calcium 8.8 mg/dl (8.5-10.1); Creatinine Clr Calc Pharmacy 84.1 ml/min; Est GFR (African American) 93.1 ml/min; Est GFR (Non-African American) 80.3 ml/min; Potassium 3.9 mmol/L (3.5-5.1)
--- NOTE | 2022-12-27 18:13 | Hospitalist Progress Note ---
Date of Service December 27, 2022 Assessment & Plan (1) Sepsis: Plan: Secondary to complicated UTI Blood cultures negative to date Urine culture grew Proteus mirabilis Received IV cefepime transition to Keflex We will complete antibiotic course tomorrow Delirium In setting of dementia Reorient frequently Generalized weakness Deconditioning due to comorbidities Refuses PT OT Needs assistance with feeding Most likely Pressure ulcers of left gluteal fold/ischium and L scrotum, unstageable, POA Scrotal edema with chronic skin changes and small ulcers noted as well Continue Wound care Hypertension Continue metoprolol Resume amlodipine, losartan as able Other chronic conditions Chronic anemia, hemoglobin at baseline hemolytic anemia as per records Hemoglobin stable (2) Acute UTI (urinary tract infection): Plan: As above Laceration of the scrotum Urology consulted:Appreciate input and recommendation Does not require any follow-up as per the urologist (3) CAD (coronary artery disease): Plan: H/O CAD sp CABG/stenting Aortic stenosis S/P Bioprosthetic AVR TAA S/P surgery PFO as per records SSS sp PPM not on anticoagulation secondary to bleeding/fall risk H/O TIA No acute cardiac symptoms Continue aspirin, statin, metoprolol (4) Aortocoronary bypass status: (5) Elevated troponin: Plan: Elevated troponin secondary to demand ischemia --Troponin was mildly elevated and serial troponin while equivocal but elevated --Echo -there is mild concentric LVH, septal motion is abnormal consistent with right ventricular pacemaker activation, LV systolic function is low normal at 50 to 55%, there is bioprosthetic aortic valve without suggestive of prosthetic valve stenosis or regurgitation, mild MR. Grade 2 diastolic dysfunction there is mild TR --ACS Less likely (6) Dementia: Plan: H/O Parkinson's disease/Lewy body dementia Continue home meds Reorient frequently to minimize delirium (7) Pacemaker: (8) Weakness: Plan: As above (9) HTN (hypertension): Plan: As above Plan DVT Px: Lovenox SQ CODE STATUS DNR/DNI Admission and Anticipated Discharge Date Admission Date: December 19, 2022 Subjective Patient is seen and examined at bedside No complaints during my encounter Discussed with patient's friend at bedside Was delirious towards the evening today Poor historian Denies chest pain, dyspnea, dizziness, nausea Review of Systems Review of Systems: Unobtainable due to cognitive status Physical Exam Physical Exam: Physical Exam: Vitals signs as noted above General Appearance: Chronic ill-appearing, thin, elderly, no apparent distress Head: normocephalic, Atraumatic Eyes: normal inspection, EOMI Neck: supple, Trachea midline Respiratory/Chest: Normal breath sounds, CTA, No accessory muscle use Cardiovascular: S1, S2, + murmur Abdomen/GI:Soft, Non tender, Bowel sounds present Extremities/Musculoskeletal:normal inspection, no edema Neurologic/Psych:AAOX1, grossly no focal neurological deficits Skin: normal color, warm Results & Data Results & Data ([facility]) Vital Signs (Past 12 Hours) Vital Signs Temp Pulse Pulse Resp BP BP Pulse Ox 12/27/22 14:17 60 12/27/22 14:35 36.3 C L 60 20 110/71 97 12/27/22 11:09 36.4 C L 59 L 20 127/67 94 12/27/22 07:40 36.4 C L 60 18 166/84 H 98 O2 Del Method 12/27/22 14:17 12/27/22 14:35 Room Air 12/27/22 11:09 Room Air 12/27/22 07:40 Room Air Laboratory Results Short CBC 12/27/22 Range/Units 08:57 WBC 5.61 (4.8-10.8) K/ul Hgb 12.7 L (14.0-18.0) g/dl Hct 37.5 L (42.0-52.0) % Plt Count 249 (130-400) K/uL BMP 12/27/22 08:57 Sodium 139 Potassium 3.9 Chloride 104 Carbon Dioxide 33 H BUN 22 Creatinine 0.80 Glucose 94 Calcium 8.8
[2022-12-27] MEDS: ATORVASTATIN 20 MG TAB PO SCH (19:43)
[2022-12-28] MEDS: METOPROLOL TARTRATE 25 MG TAB PO SCH ×2 (08:23→21:46)
[2022-12-28] MEDS: DONEPEZIL HCL 5 MG TAB PO SCH (08:24)
[2022-12-28] MEDS: cephALEXin 500 MG CAP PO SCH ×4 (08:24→21:44)
[2022-12-28] MEDS: POLYETHYLENE (MIRALAX) 17 GM PACK PO SCH (08:25)
[2022-12-28] MEDS: CARBIDOPA/LEVODOPA 25/100MG TAB PO SCH ×2 (08:25→21:45)
[2022-12-28] MEDS: ASPIRIN 81 MG ECTAB PO SCH (08:25)
[2022-12-28] MEDS: ENOXAPARIN INJ 40 MG/0.4 ML SYR SQ SCH (08:26)
[2022-12-28] MEDS: DOCUSATE SODIUM/SENNA 50/8.6MG TAB PO SCH (08:33)
--- NOTE | 2022-12-28 18:03 | Hospitalist Progress Note ---
Date of Service December 28, 2022 Assessment & Plan (1) Sepsis: Plan: Secondary to complicated UTI Blood cultures negative to date Urine culture grew Proteus mirabilis Received IV cefepime transition to Keflex Will complete antibiotic course today Needs placement Delirium In setting of dementia Reorient frequently Generalized weakness Deconditioning due to comorbidities Refuses PT OT Needs assistance with feeding Most likely Pressure ulcers of left gluteal fold/ischium and L scrotum, unstageable, POA Scrotal edema with chronic skin changes and small ulcers noted as well Continue Wound care Hypertension Continue metoprolol Resume amlodipine, losartan as able Other chronic conditions Chronic anemia, hemoglobin at baseline hemolytic anemia as per records Hemoglobin stable (2) Acute UTI (urinary tract infection): Plan: As above Laceration of the scrotum Urology consulted:Appreciate input and recommendation Does not require any follow-up as per the urologist (3) CAD (coronary artery disease): Plan: H/O CAD sp CABG/stenting Aortic stenosis S/P Bioprosthetic AVR TAA S/P surgery PFO as per records SSS sp PPM not on anticoagulation secondary to bleeding/fall risk H/O TIA No acute cardiac symptoms Continue aspirin, statin, metoprolol (4) Aortocoronary bypass status: (5) Elevated troponin: Plan: Elevated troponin secondary to demand ischemia --Troponin was mildly elevated and serial troponin while equivocal but elevated --Echo -there is mild concentric LVH, septal motion is abnormal consistent with right ventricular pacemaker activation, LV systolic function is low normal at 50 to 55%, there is bioprosthetic aortic valve without suggestive of prosthetic valve stenosis or regurgitation, mild MR. Grade 2 diastolic dysfunction there is mild TR --ACS Less likely (6) Dementia: Plan: H/O Parkinson's disease/Lewy body dementia Continue home meds Reorient frequently to minimize delirium (7) Pacemaker: (8) Weakness: Plan: As above (9) HTN (hypertension): Plan: As above Plan DVT Px: Lovenox SQ CODE STATUS DNR/DNI Admission and Anticipated Discharge Date Admission Date: December 19, 2022 Subjective Patient is seen and examined at bedside Having OT during my encounter No new complaints Poor historian due to dementia Denies chest pain, dyspnea, dizziness, nausea Review of Systems Review of Systems: All systems reviewed & are unremarkable except as noted in Subjective Physical Exam Physical Exam: Physical Exam: Vitals signs as noted above General Appearance: Chronic ill-appearing, thin, elderly, no apparent distress Head: normocephalic, Atraumatic Eyes: normal inspection, EOMI Neck: supple, Trachea midline Respiratory/Chest: Normal breath sounds, CTA, No accessory muscle use Cardiovascular: S1, S2, + murmur Abdomen/GI:Soft, Non tender, Bowel sounds present Extremities/Musculoskeletal:normal inspection, no edema Neurologic/Psych:AAOX1, grossly no focal neurological deficits Skin: normal color, warm Results & Data Results & Data ([facility]) Vital Signs (Past 12 Hours) Vital Signs Temp Pulse Pulse Resp BP BP Pulse Ox 12/28/22 14:30 61 12/28/22 07:15 65 12/28/22 15:18 36.9 C 57 L 18 137/78 97 12/28/22 12:07 12/28/22 11:25 36.8 C 60 19 117/71 98 12/28/22 08:04 37.1 C 60 19 141/75 H 96 O2 Del Method 12/28/22 14:30 12/28/22 07:15 12/28/22 15:18 Room Air 12/28/22 12:07 Room Air 12/28/22 11:25 Room Air 12/28/22 08:04 Room Air
[2022-12-28] MEDS: ATORVASTATIN 20 MG TAB PO SCH (21:46)
[2022-12-29] MEDS: METOPROLOL TARTRATE 25 MG TAB PO SCH ×2 (09:56→20:35)
[2022-12-29] MEDS: DONEPEZIL HCL 5 MG TAB PO SCH (09:56)
[2022-12-29] MEDS: ASPIRIN 81 MG ECTAB PO SCH (09:57)
[2022-12-29] MEDS: ENOXAPARIN INJ 40 MG/0.4 ML SYR SQ SCH (09:57)
[2022-12-29] MEDS: DOCUSATE SODIUM/SENNA 50/8.6MG TAB PO SCH (09:58)
[2022-12-29] MEDS: POLYETHYLENE (MIRALAX) 17 GM PACK PO SCH (09:58)
[2022-12-29] MEDS: CARBIDOPA/LEVODOPA 25/100MG TAB PO SCH ×2 (09:58→20:35)
--- NOTE | 2022-12-29 17:22 | Hospitalist Progress Note ---
Date of Service December 29, 2022 Assessment & Plan (1) Sepsis: Plan: Secondary to complicated UTI Blood cultures negative to date Urine culture grew Proteus mirabilis Received IV cefepime transition to Keflex Completed antibiotic course Waiting for placement Delirium In setting of dementia Reorient frequently Generalized weakness Deconditioning due to comorbidities Refuses PT OT Needs assistance with feeding Most likely Pressure ulcers of left gluteal fold/ischium and L scrotum, unstageable, POA Scrotal edema with chronic skin changes and small ulcers noted as well Continue Wound care Hypertension Continue metoprolol Resume amlodipine, losartan as able Other chronic conditions Chronic anemia, hemoglobin at baseline hemolytic anemia as per records Hemoglobin stable (2) Acute UTI (urinary tract infection): Plan: As above Laceration of the scrotum Urology consulted:Appreciate input and recommendation Does not require any follow-up as per the urologist (3) CAD (coronary artery disease): Plan: H/O CAD sp CABG/stenting Aortic stenosis S/P Bioprosthetic AVR TAA S/P surgery PFO as per records SSS sp PPM not on anticoagulation secondary to bleeding/fall risk H/O TIA No acute cardiac symptoms Continue aspirin, statin, metoprolol (4) Aortocoronary bypass status: (5) Elevated troponin: Plan: Elevated troponin secondary to demand ischemia --Troponin was mildly elevated and serial troponin while equivocal but elevated --Echo -there is mild concentric LVH, septal motion is abnormal consistent with right ventricular pacemaker activation, LV systolic function is low normal at 50 to 55%, there is bioprosthetic aortic valve without suggestive of prosthetic valve stenosis or regurgitation, mild MR. Grade 2 diastolic dysfunction there is mild TR --ACS Less likely (6) Dementia: Plan: H/O Parkinson's disease/Lewy body dementia Continue home meds Reorient frequently to minimize delirium (7) Pacemaker: (8) Weakness: Plan: As above (9) HTN (hypertension): Plan: As above Plan DVT Px: Lovenox SQ CODE STATUS DNR/DNI Admission and Anticipated Discharge Date Admission Date: December 19, 2022 Subjective Patient is seen and examined at bedside Oriented to person only History limited secondary to dementia Pleasant during my encounter No events overnight Denies chest pain, dyspnea, dizziness, nausea Review of Systems Review of Systems: Unobtainable due to cognitive status Physical Exam Physical Exam: Physical Exam: Vitals signs as noted above General Appearance: Chronic ill-appearing, thin, elderly, no apparent distress Head: normocephalic, Atraumatic Eyes: normal inspection, EOMI Neck: supple, Trachea midline Respiratory/Chest: Normal breath sounds, CTA, No accessory muscle use Cardiovascular: S1, S2, + murmur Abdomen/GI:Soft, Non tender, Bowel sounds present Extremities/Musculoskeletal:normal inspection, no edema Neurologic/Psych:AAOX1, grossly no focal neurological deficits Skin: normal color, warm Results & Data Results & Data ([facility]) Vital Signs (Past 12 Hours) Vital Signs Temp Pulse Pulse Resp BP Pulse Ox O2 Del Method 12/29/22 16:04 36.9 C 64 18 147/57 H 93 Room Air 12/29/22 07:15 60 12/29/22 11:26 36.8 C 60 16 116/65 94 Room Air 12/29/22 09:36 60 12/29/22 09:36 Room Air 12/29/22 07:37 36.7 C 60 18 151/77 H 94 Room Air
[2022-12-29] MEDS: ATORVASTATIN 20 MG TAB PO SCH (20:36)
[2022-12-30] MEDS: ASPIRIN 81 MG ECTAB PO SCH (09:59)
[2022-12-30] MEDS: DONEPEZIL HCL 5 MG TAB PO SCH (09:59)
[2022-12-30] MEDS: METOPROLOL TARTRATE 25 MG TAB PO SCH ×2 (09:59→21:50)
[2022-12-30] MEDS: CARBIDOPA/LEVODOPA 25/100MG TAB PO SCH ×2 (09:59→21:50)
[2022-12-30] MEDS: ENOXAPARIN INJ 40 MG/0.4 ML SYR SQ SCH (10:10)
[2022-12-30] MEDS: DOCUSATE SODIUM/SENNA 50/8.6MG TAB PO SCH (10:14)
[2022-12-30] MEDS: POLYETHYLENE (MIRALAX) 17 GM PACK PO SCH (10:14)
--- NOTE | 2022-12-30 16:57 | Hospitalist Progress Note ---
Date of Service December 30, 2022 Assessment & Plan (1) Sepsis: Plan: Secondary to complicated UTI Blood cultures negative to date Urine culture grew Proteus mirabilis Received IV cefepime transition to Keflex Completed antibiotic course Waiting for placement No change in management Delirium In setting of dementia Reorient frequently Generalized weakness Deconditioning due to comorbidities Refuses PT OT Needs assistance with feeding Most likely Pressure ulcers of left gluteal fold/ischium and L scrotum, unstageable, POA Scrotal edema with chronic skin changes and small ulcers noted as well Continue Wound care Hypertension Continue metoprolol Resume amlodipine, losartan as able BP currently stable Other chronic conditions Chronic anemia, hemoglobin at baseline hemolytic anemia as per records Hemoglobin stable (2) Acute UTI (urinary tract infection): Plan: As above Laceration of the scrotum Urology consulted:Appreciate input and recommendation Does not require any follow-up as per the urologist (3) CAD (coronary artery disease): Plan: H/O CAD sp CABG/stenting Aortic stenosis S/P Bioprosthetic AVR TAA S/P surgery PFO as per records SSS sp PPM not on anticoagulation secondary to bleeding/fall risk H/O TIA No acute cardiac symptoms Continue aspirin, statin, metoprolol (4) Aortocoronary bypass status: (5) Elevated troponin: Plan: Elevated troponin secondary to demand ischemia --Troponin was mildly elevated and serial troponin while equivocal but elevated --Echo -there is mild concentric LVH, septal motion is abnormal consistent with right ventricular pacemaker activation, LV systolic function is low normal at 50 to 55%, there is bioprosthetic aortic valve without suggestive of prosthetic valve stenosis or regurgitation, mild MR. Grade 2 diastolic dysfunction there is mild TR --ACS Less likely (6) Dementia: Plan: H/O Parkinson's disease/Lewy body dementia Continue home meds Reorient frequently to minimize delirium (7) Pacemaker: (8) Weakness: Plan: As above (9) HTN (hypertension): Plan: As above Plan DVT Px: Lovenox SQ CODE STATUS DNR/DNI Admission and Anticipated Discharge Date Admission Date: December 19, 2022 Subjective Patient is seen and examined at bedside Lying comfortably during my encounter History limited secondary to dementia Denies chest pain, dyspnea, dizziness, nausea Waiting for Placement Review of Systems Review of Systems: All systems reviewed & are unremarkable except as noted in Subjective Physical Exam Physical Exam: Physical Exam: Vitals signs as noted above General Appearance: Chronic ill-appearing, thin, elderly, no apparent distress Head: normocephalic, Atraumatic Eyes: normal inspection, EOMI Neck: supple, Trachea midline Respiratory/Chest: Normal breath sounds, CTA, No accessory muscle use Cardiovascular: S1, S2, + murmur Abdomen/GI:Soft, Non tender, Bowel sounds present Extremities/Musculoskeletal:normal inspection, no edema Neurologic/Psych:AAOX1, grossly no focal neurological deficits Skin: normal color, warm Results & Data Results & Data ([facility]) Vital Signs (Past 12 Hours) Vital Signs Temp Pulse Resp BP Pulse Ox O2 Del Method 12/30/22 11:54 36.7 C 60 18 116/61 95 Room Air 12/30/22 11:52 Room Air 12/30/22 07:57 36.4 C L 61 16 131/71 93 Room Air
[2022-12-30] MEDS: ATORVASTATIN 20 MG TAB PO SCH (21:50)
[2022-12-31] MEDS: ASPIRIN 81 MG ECTAB PO SCH (09:28)
[2022-12-31] MEDS: CARBIDOPA/LEVODOPA 25/100MG TAB PO SCH ×2 (09:29→19:51)
[2022-12-31] MEDS: DOCUSATE SODIUM/SENNA 50/8.6MG TAB PO SCH (09:30)
[2022-12-31] MEDS: DONEPEZIL HCL 5 MG TAB PO SCH (09:30)
[2022-12-31] MEDS: METOPROLOL TARTRATE 25 MG TAB PO SCH ×2 (09:30→19:51)
[2022-12-31] MEDS: ENOXAPARIN INJ 40 MG/0.4 ML SYR SQ SCH (09:30)
[2022-12-31] MEDS: POLYETHYLENE (MIRALAX) 17 GM PACK PO SCH (09:31)
--- NOTE | 2022-12-31 14:41 | Hospitalist Progress Note ---
Date of Service December 31, 2022 Assessment & Plan (1) Sepsis: Plan: Secondary to complicated UTI Blood cultures negative to date Urine culture grew Proteus mirabilis Received IV cefepime transition to Keflex Completed antibiotic course Waiting for placement BP low today, monitor Delirium In setting of dementia Reorient frequently Generalized weakness Deconditioning due to comorbidities Refuses PT OT Needs assistance with feeding Most likely Pressure ulcers of left gluteal fold/ischium and L scrotum, unstageable, POA Scrotal edema with chronic skin changes and small ulcers noted as well Continue Wound care Hypertension Continue metoprolol Resume amlodipine, losartan as able BP currently stable Other chronic conditions Chronic anemia, hemoglobin at baseline hemolytic anemia as per records Hemoglobin stable (2) Acute UTI (urinary tract infection): Plan: As above Laceration of the scrotum Urology consulted:Appreciate input and recommendation Does not require any follow-up as per the urologist (3) CAD (coronary artery disease): Plan: H/O CAD sp CABG/stenting Aortic stenosis S/P Bioprosthetic AVR TAA S/P surgery PFO as per records SSS sp PPM not on anticoagulation secondary to bleeding/fall risk H/O TIA No acute cardiac symptoms Continue aspirin, statin, metoprolol (4) Aortocoronary bypass status: (5) Elevated troponin: Plan: Elevated troponin secondary to demand ischemia --Troponin was mildly elevated and serial troponin while equivocal but elevated --Echo -there is mild concentric LVH, septal motion is abnormal consistent with right ventricular pacemaker activation, LV systolic function is low normal at 50 to 55%, there is bioprosthetic aortic valve without suggestive of prosthetic valve stenosis or regurgitation, mild MR. Grade 2 diastolic dysfunction there is mild TR --ACS Less likely (6) Dementia: Plan: H/O Parkinson's disease/Lewy body dementia Continue home meds Reorient frequently to minimize delirium (7) Pacemaker: (8) Weakness: Plan: As above (9) HTN (hypertension): Plan: As above Plan DVT Px: Lovenox SQ CODE STATUS DNR/DNI Admission and Anticipated Discharge Date Admission Date: December 19, 2022 Subjective Patient is seen and examined at bedside No new complaints No distress on exam History limited secondary to dementia Denies chest pain, dyspnea, dizziness, nausea Waiting for Placement Review of Systems Review of Systems: All systems reviewed & are unremarkable except as noted in Subjective Physical Exam Physical Exam: Physical Exam: Vitals signs as noted above General Appearance: Chronic ill-appearing, thin, elderly, no apparent distress Head: normocephalic, Atraumatic Eyes: normal inspection, EOMI Neck: supple, Trachea midline Respiratory/Chest: Normal breath sounds, CTA, No accessory muscle use Cardiovascular: S1, S2, + murmur Abdomen/GI:Soft, Non tender, Bowel sounds present Extremities/Musculoskeletal:normal inspection, no edema Neurologic/Psych:AAOX1, grossly no focal neurological deficits Skin: normal color, warm Results & Data Results & Data ([facility]) Vital Signs (Past 12 Hours) Vital Signs Temp Pulse Pulse Resp BP Pulse Ox O2 Del Method 12/31/22 11:00 36.5 C 60 18 95/59 L 96 Room Air 12/31/22 08:12 60 12/31/22 07:32 37.2 C 60 18 111/61 93 Room Air 12/31/22 03:13 36.8 C 64 18 160/72 H 95 Room Air
[2022-12-31] MEDS: ATORVASTATIN 20 MG TAB PO SCH (19:51)
[2022-12-31] MEDS ORDERED: METOPROLOL TARTRATE 25 MG TAB PO STA (23:42)
[2022-12-31] MEDS ORDERED: POTASSIUM CHLORIDE PWD 20 MEQ PACK PO STA (23:43)
[2023-01-01 00:30] LABS: Calcium 8.5 mg/dl (8.5-10.1); Creatinine Clr Calc Pharmacy 65.8 ml/min; Est GFR (African American) 78.1 ml/min; Est GFR (Non-African American) 67.4 ml/min; Magnesium 1.8 mg/dl (1.7-2.4); Potassium 4.1 mmol/L (3.5-5.1)
[2023-01-01] MEDS: METOPROLOL TARTRATE 25 MG TAB PO SCH ×2 (09:43→19:44)
[2023-01-01] MEDS: CARBIDOPA/LEVODOPA 25/100MG TAB PO SCH ×2 (09:43→19:43)
[2023-01-01] MEDS: DONEPEZIL HCL 5 MG TAB PO SCH (09:44)
[2023-01-01] MEDS: ASPIRIN 81 MG ECTAB PO SCH (09:44)
[2023-01-01] MEDS: ENOXAPARIN INJ 40 MG/0.4 ML SYR SQ SCH (09:45)
[2023-01-01] MEDS: DOCUSATE SODIUM/SENNA 50/8.6MG TAB PO SCH (09:48)
[2023-01-01] MEDS: POLYETHYLENE (MIRALAX) 17 GM PACK PO SCH (09:49)
--- NOTE | 2023-01-01 14:54 | Hospitalist Progress Note ---
Date of Service January 01, 2023 Assessment & Plan (1) Sepsis: Plan: Secondary to complicated UTI Blood cultures negative to date Urine culture grew Proteus mirabilis Received IV cefepime transition to Keflex Completed antibiotic course Waiting for placement Delirium In setting of dementia Reorient frequently Generalized weakness Deconditioning due to comorbidities Refuses PT OT Needs assistance with feeding Most likely Pressure ulcers of left gluteal fold/ischium and L scrotum, unstageable, POA Scrotal edema with chronic skin changes and small ulcers noted as well Continue Wound care Hypertension Continue metoprolol Resume amlodipine, losartan as able if BP rises BP currently stable off Amlodipine, losartan Other chronic conditions Chronic anemia, hemoglobin at baseline hemolytic anemia as per records Hemoglobin stable (2) Acute UTI (urinary tract infection): Plan: As above Laceration of the scrotum Urology consulted:Appreciate input and recommendation Does not require any follow-up as per the urologist (3) CAD (coronary artery disease): Plan: H/O CAD sp CABG/stenting Aortic stenosis S/P Bioprosthetic AVR TAA S/P surgery PFO as per records SSS sp PPM not on anticoagulation secondary to bleeding/fall risk H/O TIA No acute cardiac symptoms Continue aspirin, statin, metoprolol (4) Aortocoronary bypass status: (5) Elevated troponin: Plan: Elevated troponin secondary to demand ischemia --Troponin was mildly elevated and serial troponin while equivocal but elevated --Echo -there is mild concentric LVH, septal motion is abnormal consistent with right ventricular pacemaker activation, LV systolic function is low normal at 50 to 55%, there is bioprosthetic aortic valve without suggestive of prosthetic valve stenosis or regurgitation, mild MR. Grade 2 diastolic dysfunction there is mild TR --ACS Less likely (6) Dementia: Plan: H/O Parkinson's disease/Lewy body dementia Continue home meds Reorient frequently to minimize delirium (7) Pacemaker: (8) Weakness: Plan: As above (9) HTN (hypertension): Plan: As above Plan DVT Px: Lovenox SQ CODE STATUS DNR/DNI Admission and Anticipated Discharge Date Admission Date: December 19, 2022 Subjective Patient is seen and examined at bedside History limited secondary to dementia No distress on exam Denies chest pain, dyspnea, dizziness, nausea Waiting for Placement Review of Systems Review of Systems: All systems reviewed & are unremarkable except as noted in Subjective Physical Exam Physical Exam: Physical Exam: Vitals signs as noted above General Appearance: Chronic ill-appearing, thin, elderly, no apparent distress Head: normocephalic, Atraumatic Eyes: normal inspection, EOMI Neck: supple, Trachea midline Respiratory/Chest: Normal breath sounds, CTA, No accessory muscle use Cardiovascular: S1, S2, + murmur Abdomen/GI:Soft, Non tender, Bowel sounds present Extremities/Musculoskeletal:normal inspection, no edema Neurologic/Psych:AAOX1, grossly no focal neurological deficits Skin: normal color, warm Results & Data Results & Data ([facility]) Vital Signs (Past 12 Hours) Vital Signs Temp Pulse Pulse Resp BP Pulse Ox O2 Del Method 01/01/23 10:40 36.4 C L 60 14 135/73 95 Room Air 01/01/23 09:42 62 146/82 H 95 Room Air 01/01/23 07:29 60 01/01/23 07:25 36.6 C 60 16 124/72 93 Room Air Laboratory Results [facility] 12/31/22 23:58 Sodium 137 Potassium 4.1 Chloride 101 Carbon Dioxide 32 BUN 25 H Creatinine 1.00 Glucose 93 Calcium 8.5
[2023-01-01] MEDS: ATORVASTATIN 20 MG TAB PO SCH (19:44)
[2023-01-02] MEDS: METOPROLOL TARTRATE 25 MG TAB PO SCH ×2 (07:46→20:42)
[2023-01-02] MEDS: ASPIRIN 81 MG ECTAB PO SCH (07:47)
[2023-01-02] MEDS: CARBIDOPA/LEVODOPA 25/100MG TAB PO SCH ×2 (07:47→20:42)
[2023-01-02] MEDS: DONEPEZIL HCL 5 MG TAB PO SCH (07:47)
[2023-01-02] MEDS: ENOXAPARIN INJ 40 MG/0.4 ML SYR SQ SCH (07:47)
[2023-01-02] MEDS: DOCUSATE SODIUM/SENNA 50/8.6MG TAB PO SCH (07:47)
[2023-01-02] MEDS: POLYETHYLENE (MIRALAX) 17 GM PACK PO SCH (07:49)
[2023-01-02] MEDS ORDERED: LOSARTAN POTASSIUM 25 MG TAB PO SCH (09:30)
--- NOTE | 2023-01-02 17:01 | Hospitalist Progress Note ---
Date of Service January 02, 2023 Assessment & Plan (1) Sepsis: Plan: Secondary to complicated UTI Blood cultures negative to date Urine culture grew Proteus mirabilis Received IV cefepime transition to Keflex Completed antibiotic course Waiting for placement Stable for discharge Delirium In setting of dementia Reorient frequently Generalized weakness Deconditioning due to comorbidities Refuses PT OT Needs assistance with feeding Most likely Pressure ulcers of left gluteal fold/ischium and L scrotum, unstageable, POA Scrotal edema with chronic skin changes and small ulcers noted as well Continue Wound care Hypertension Continue metoprolol Resume amlodipine, losartan as able if BP rises Held Amlodipine, losartan BP Variable Other chronic conditions Chronic anemia, hemoglobin at baseline hemolytic anemia as per records Hemoglobin stable (2) Acute UTI (urinary tract infection): Plan: As above Laceration of the scrotum Urology consulted:Appreciate input and recommendation Does not require any follow-up as per the urologist (3) CAD (coronary artery disease): Plan: H/O CAD sp CABG/stenting Aortic stenosis S/P Bioprosthetic AVR TAA S/P surgery PFO as per records SSS sp PPM not on anticoagulation secondary to bleeding/fall risk H/O TIA No acute cardiac symptoms Continue aspirin, statin, metoprolol (4) Aortocoronary bypass status: (5) Elevated troponin: Plan: Elevated troponin secondary to demand ischemia --Troponin was mildly elevated and serial troponin while equivocal but elevated --Echo -there is mild concentric LVH, septal motion is abnormal consistent with right ventricular pacemaker activation, LV systolic function is low normal at 50 to 55%, there is bioprosthetic aortic valve without suggestive of prosthetic valve stenosis or regurgitation, mild MR. Grade 2 diastolic dysfunction there is mild TR --ACS Less likely (6) Dementia: Plan: H/O Parkinson's disease/Lewy body dementia Continue home meds Reorient frequently to minimize delirium (7) Pacemaker: (8) Weakness: Plan: As above (9) HTN (hypertension): Plan: As above Plan DVT Px: Lovenox SQ CODE STATUS DNR/DNI Admission and Anticipated Discharge Date Admission Date: December 19, 2022 Subjective Patient is seen and examined at bedside History limited secondary to dementia Having PT OT evaluation during my encounter Blood pressure variable Offers no complaints Denies chest pain, dyspnea, dizziness, nausea Waiting for Placement Review of Systems Review of Systems: All systems reviewed & are unremarkable except as noted in Subjective Physical Exam Physical Exam: Physical Exam: Vitals signs as noted above General Appearance: Chronic ill-appearing, thin, elderly, no apparent distress Head: normocephalic, Atraumatic Eyes: normal inspection, EOMI Neck: supple, Trachea midline Respiratory/Chest: Normal breath sounds, CTA, No accessory muscle use Cardiovascular: S1, S2, + murmur Abdomen/GI:Soft, Non tender, Bowel sounds present Extremities/Musculoskeletal:normal inspection, no edema Neurologic/Psych:AAOX1, grossly no focal neurological deficits Skin: normal color, warm Results & Data Results & Data ([facility]) Vital Signs (Past 12 Hours) Vital Signs Temp Pulse Pulse Resp BP Pulse Ox O2 Del Method 01/02/23 15:44 62 01/02/23 14:28 36.3 C L 69 18 144/84 H 97 Room Air 01/02/23 10:58 36.6 C 84 18 101/64 97 Room Air 01/02/23 07:21 36.3 C L 65 18 149/80 H 95 Room Air 01/02/23 07:13 62
[2023-01-02] MEDS: ATORVASTATIN 20 MG TAB PO SCH (20:42)
[2023-01-03] MEDS: ASPIRIN 81 MG ECTAB PO SCH (08:29)
[2023-01-03] MEDS: ENOXAPARIN INJ 40 MG/0.4 ML SYR SQ SCH (08:29)
[2023-01-03] MEDS: CARBIDOPA/LEVODOPA 25/100MG TAB PO SCH ×2 (08:29→20:08)
[2023-01-03] MEDS: METOPROLOL TARTRATE 25 MG TAB PO SCH ×2 (08:29→20:08)
[2023-01-03] MEDS: DONEPEZIL HCL 5 MG TAB PO SCH (08:30)
[2023-01-03] MEDS: POLYETHYLENE (MIRALAX) 17 GM PACK PO SCH (08:31)
[2023-01-03] MEDS: DOCUSATE SODIUM/SENNA 50/8.6MG TAB PO SCH (08:32)
--- NOTE | 2023-01-03 16:43 | Hospitalist Progress Note ---
Date of Service January 03, 2023 Assessment & Plan (1) Sepsis: Plan: Secondary to complicated UTI Blood cultures negative to date Urine culture grew Proteus mirabilis Received IV cefepime transition to Keflex Completed antibiotic course Continue current management Waiting for placement Delirium In setting of dementia Reorient frequently Generalized weakness Deconditioning due to comorbidities Refuses PT OT Needs assistance with feeding Most likely Pressure ulcers of left gluteal fold/ischium and L scrotum, unstageable, POA Scrotal edema with chronic skin changes and small ulcers noted as well Continue Wound care Hypertension Continue metoprolol Resume amlodipine, losartan as able if BP rises Held Amlodipine, losartan BP Variable Other chronic conditions Chronic anemia, hemoglobin at baseline hemolytic anemia as per records Hemoglobin stable (2) Acute UTI (urinary tract infection): Plan: As above Laceration of the scrotum Urology consulted:Appreciate input and recommendation Does not require any follow-up as per the urologist (3) CAD (coronary artery disease): Plan: H/O CAD sp CABG/stenting Aortic stenosis S/P Bioprosthetic AVR TAA S/P surgery PFO as per records SSS sp PPM not on anticoagulation secondary to bleeding/fall risk H/O TIA No acute cardiac symptoms Continue aspirin, statin, metoprolol (4) Aortocoronary bypass status: (5) Elevated troponin: Plan: Elevated troponin secondary to demand ischemia --Troponin was mildly elevated and serial troponin while equivocal but elevated --Echo -there is mild concentric LVH, septal motion is abnormal consistent with right ventricular pacemaker activation, LV systolic function is low normal at 50 to 55%, there is bioprosthetic aortic valve without suggestive of prosthetic valve stenosis or regurgitation, mild MR. Grade 2 diastolic dysfunction there is mild TR --ACS Less likely (6) Dementia: Plan: H/O Parkinson's disease/Lewy body dementia Continue home meds Reorient frequently to minimize delirium (7) Pacemaker: (8) Weakness: Plan: As above (9) HTN (hypertension): Plan: As above Plan DVT Px: Lovenox SQ CODE STATUS DNR/DNI Admission and Anticipated Discharge Date Admission Date: December 19, 2022 Subjective Patient is seen and examined at bedside History limited secondary to dementia Offers no complaints Denies chest pain, dyspnea, dizziness, nausea Waiting for Placement Review of Systems Review of Systems: All systems reviewed & are unremarkable except as noted in Subjective Physical Exam Physical Exam: Physical Exam: Vitals signs as noted above General Appearance: Chronic ill-appearing, thin, elderly, no apparent distress Head: normocephalic, Atraumatic Eyes: normal inspection, EOMI Neck: supple, Trachea midline Respiratory/Chest: Normal breath sounds, CTA, No accessory muscle use Cardiovascular: S1, S2, + murmur Abdomen/GI:Soft, Non tender, Bowel sounds present Extremities/Musculoskeletal:normal inspection, no edema Neurologic/Psych:AAOX1, grossly no focal neurological deficits Skin: normal color, warm Results & Data Results & Data ([facility]) Vital Signs (Past 12 Hours) Vital Signs Temp Pulse Pulse Resp BP Pulse Ox O2 Del Method 01/03/23 11:30 36.4 C L 60 20 149/84 H 97 Room Air 01/03/23 10:14 59 L 01/03/23 07:59 36.2 C L 63 16 144/75 H 97 Room Air
[2023-01-03] MEDS: ATORVASTATIN 20 MG TAB PO SCH (20:08)
[2023-01-04] MEDS: METOPROLOL TARTRATE 25 MG TAB PO SCH ×2 (09:18→22:05)
[2023-01-04] MEDS: CARBIDOPA/LEVODOPA 25/100MG TAB PO SCH ×2 (09:18→22:05)
[2023-01-04] MEDS: ENOXAPARIN INJ 40 MG/0.4 ML SYR SQ SCH (09:18)
[2023-01-04] MEDS: DONEPEZIL HCL 5 MG TAB PO SCH (09:18)
[2023-01-04] MEDS: ASPIRIN 81 MG ECTAB PO SCH (09:18)
[2023-01-04] MEDS: DOCUSATE SODIUM/SENNA 50/8.6MG TAB PO SCH (09:24)
[2023-01-04] MEDS: POLYETHYLENE (MIRALAX) 17 GM PACK PO SCH (09:24)
--- NOTE | 2023-01-04 17:49 | Hospitalist Progress Note ---
Date of Service January 04, 2023 Assessment & Plan (1) Sepsis: Plan: Secondary to complicated UTI Blood cultures negative to date Urine culture grew Proteus mirabilis Received IV cefepime transition to Keflex Completed antibiotic course Continue current management Waiting for placement Delirium In setting of dementia Reorient frequently Generalized weakness Deconditioning due to comorbidities Refuses PT OT Needs assistance with feeding Most likely Pressure ulcers of left gluteal fold/ischium and L scrotum, unstageable, POA Scrotal edema with chronic skin changes and small ulcers noted as well Continue Wound care Hypertension Continue metoprolol Resume amlodipine, losartan as able if BP rises Held Amlodipine, losartan BP Variable Other chronic conditions Chronic anemia, hemoglobin at baseline hemolytic anemia as per records Hemoglobin stable (2) Acute UTI (urinary tract infection): Plan: As above Laceration of the scrotum Urology consulted:Appreciate input and recommendation Does not require any follow-up as per the urologist (3) CAD (coronary artery disease): Plan: H/O CAD sp CABG/stenting Aortic stenosis S/P Bioprosthetic AVR TAA S/P surgery PFO as per records SSS sp PPM not on anticoagulation secondary to bleeding/fall risk H/O TIA No acute cardiac symptoms Continue aspirin, statin, metoprolol (4) Aortocoronary bypass status: (5) Elevated troponin: Plan: Elevated troponin secondary to demand ischemia --Troponin was mildly elevated and serial troponin while equivocal but elevated --Echo -there is mild concentric LVH, septal motion is abnormal consistent with right ventricular pacemaker activation, LV systolic function is low normal at 50 to 55%, there is bioprosthetic aortic valve without suggestive of prosthetic valve stenosis or regurgitation, mild MR. Grade 2 diastolic dysfunction there is mild TR --ACS Less likely (6) Dementia: Plan: H/O Parkinson's disease/Lewy body dementia Continue home meds Reorient frequently to minimize delirium (7) Pacemaker: (8) Weakness: Plan: As above (9) HTN (hypertension): Plan: As above Plan DVT Px: Lovenox SQ CODE STATUS DNR/DNI Disposition Waiting for placement Admission and Anticipated Discharge Date Admission Date: December 19, 2022 Subjective Patient was seen and evaluated for follow-up Sitting in chair with no acute distress eating his lunch He is waiting for placement for rehab Denies any chest pain, palpitation, dizziness, shortness of breath Review of Systems Review of Systems: All systems reviewed & are unremarkable except as noted in Subjective Physical Exam Physical Exam: General- No acute distress Head- atraumatic Eyes- PERRL, EOMI, ENT- oropharynx clear Neck- supple, no JVD Lungs- clear to auscultation Heart- regular rhythm; +murmur Abdomen- normal bowel sounds, soft, nontender Extremities- no calf tenderness Neuro- alert, awake, PERRL, EOMI; no facial palsy; no dysarthria Skin- warm & dry Results & Data Results & Data ([facility]) Vital Signs (Past 12 Hours) Vital Signs Temp Pulse Pulse Resp BP Pulse Ox O2 Del Method 01/04/23 15:02 36.6 C 60 18 123/78 98 Room Air 01/04/23 11:22 36.5 C 60 20 104/62 96 Room Air 01/04/23 08:07 60 01/04/23 07:29 36.3 C L 60 20 155/83 H 98 Room Air
[2023-01-04] MEDS: ATORVASTATIN 20 MG TAB PO SCH (22:05)
[2023-01-05] MEDS: CARBIDOPA/LEVODOPA 25/100MG TAB PO SCH ×2 (09:16→21:04)
[2023-01-05] MEDS: METOPROLOL TARTRATE 25 MG TAB PO SCH ×2 (09:17→21:03)
[2023-01-05] MEDS: DONEPEZIL HCL 5 MG TAB PO SCH (09:17)
[2023-01-05] MEDS: ASPIRIN 81 MG ECTAB PO SCH (09:17)
[2023-01-05] MEDS: ENOXAPARIN INJ 40 MG/0.4 ML SYR SQ SCH (09:21)
[2023-01-05] MEDS: POLYETHYLENE (MIRALAX) 17 GM PACK PO SCH (10:29)
[2023-01-05] MEDS: DOCUSATE SODIUM/SENNA 50/8.6MG TAB PO SCH (10:30)
--- NOTE | 2023-01-05 15:39 | Hospitalist Progress Note ---
Date of Service January 05, 2023 Assessment & Plan (1) Sepsis: Plan: Secondary to complicated UTI Blood cultures negative to date Urine culture grew Proteus mirabilis Received IV cefepime transition to Keflex Completed antibiotic course Continue current management Waiting for placement Delirium In setting of dementia Reorient frequently Generalized weakness Deconditioning due to comorbidities Refuses PT OT Needs assistance with feeding Most likely Pressure ulcers of left gluteal fold/ischium and L scrotum, unstageable, POA Scrotal edema with chronic skin changes and small ulcers noted as well Continue Wound care Hypertension Continue metoprolol Resume amlodipine, losartan as able if BP rises Held Amlodipine, losartan BP Variable Other chronic conditions Chronic anemia, hemoglobin at baseline hemolytic anemia as per records Hemoglobin stable (2) Acute UTI (urinary tract infection): Plan: As above Laceration of the scrotum Urology consulted:Appreciate input and recommendation Does not require any follow-up as per the urologist (3) CAD (coronary artery disease): Plan: H/O CAD sp CABG/stenting Aortic stenosis S/P Bioprosthetic AVR TAA S/P surgery PFO as per records SSS sp PPM not on anticoagulation secondary to bleeding/fall risk H/O TIA No acute cardiac symptoms Continue aspirin, statin, metoprolol (4) Aortocoronary bypass status: (5) Elevated troponin: Plan: Elevated troponin secondary to demand ischemia --Troponin was mildly elevated and serial troponin while equivocal but elevated --Echo -there is mild concentric LVH, septal motion is abnormal consistent with right ventricular pacemaker activation, LV systolic function is low normal at 50 to 55%, there is bioprosthetic aortic valve without suggestive of prosthetic valve stenosis or regurgitation, mild MR. Grade 2 diastolic dysfunction there is mild TR --ACS Less likely (6) Dementia: Plan: H/O Parkinson's disease/Lewy body dementia Continue home meds Reorient frequently to minimize delirium (7) Pacemaker: (8) Weakness: Plan: As above (9) HTN (hypertension): Plan: As above Plan DVT Px: Lovenox SQ CODE STATUS DNR/DNI Disposition Waiting for placement Admission and Anticipated Discharge Date Admission Date: December 19, 2022 Subjective Patient was seen and evaluated for follow-up Sitting in bed with no acute distress eating his lunch with assistance by the [employer] He denies any new complaint He is waiting for placement for rehab Denies any chest pain, palpitation, dizziness, shortness of breath Review of Systems Review of Systems: All systems reviewed & are unremarkable except as noted in Subjective Physical Exam Physical Exam: General- No acute distress Head- atraumatic Eyes- PERRL, EOMI, ENT- oropharynx clear Neck- supple, no JVD Lungs- clear to auscultation Heart- regular rhythm; +murmur Abdomen- normal bowel sounds, soft, nontender Extremities- no calf tenderness Neuro- alert, awake, PERRL, EOMI; no facial palsy; no dysarthria Skin- warm & dry Results & Data Results & Data ([facility]) Vital Signs (Past 12 Hours) Vital Signs Temp Pulse Resp BP Pulse Ox O2 Del Method 01/05/23 15:00 36.3 C L 101 H 18 108/66 92 Room Air 01/05/23 07:47 36.0 C L 62 18 163/96 H 98 Room Air
[2023-01-05] MEDS: ATORVASTATIN 20 MG TAB PO SCH (21:04)
[2023-01-06] MEDS: DONEPEZIL HCL 5 MG TAB PO SCH (10:00)
[2023-01-06] MEDS: ASPIRIN 81 MG ECTAB PO SCH (10:00)
[2023-01-06] MEDS: CARBIDOPA/LEVODOPA 25/100MG TAB PO SCH ×2 (10:00→22:29)
[2023-01-06] MEDS: ENOXAPARIN INJ 40 MG/0.4 ML SYR SQ SCH (10:01)
[2023-01-06] MEDS: DOCUSATE SODIUM/SENNA 50/8.6MG TAB PO SCH (10:03)
[2023-01-06] MEDS: METOPROLOL TARTRATE 25 MG TAB PO SCH ×2 (10:03→22:29)
[2023-01-06] MEDS: POLYETHYLENE (MIRALAX) 17 GM PACK PO SCH (10:03)
--- NOTE | 2023-01-06 12:11 | Hospitalist Progress Note ---
Date of Service January 06, 2023 Assessment & Plan (1) Sepsis: Plan: Secondary to complicated UTI Blood cultures negative to date Urine culture grew Proteus mirabilis Received IV cefepime transition to Keflex Completed antibiotic course Continue current management Waiting for placement Pt has Ferris catheter placed - asked RN to clarify when Ferris was placed (as per urology note soon after admission there was no Ferris and urology was consulted for penile edema) Delirium In setting of dementia Reorient frequently Generalized weakness Deconditioning due to comorbidities Refuses PT OT Needs assistance with feeding / however today eating by himself on my eval Most likely Pressure ulcers of left gluteal fold/ischium and L scrotum, unstageable, POA Scrotal edema with chronic skin changes and small ulcers noted as well Continue Wound care Hypertension Continue metoprolol Resume amlodipine, losartan as able if BP rises Held Amlodipine, losartan BP Variable Other chronic conditions Chronic anemia, hemoglobin at baseline hemolytic anemia as per records Hemoglobin stable (2) Acute UTI (urinary tract infection): Plan: As above Laceration of the scrotum Urology consulted:Appreciate input and recommendation Does not require any follow-up as per the urologist (3) CAD (coronary artery disease): Plan: H/O CAD sp CABG/stenting Aortic stenosis S/P Bioprosthetic AVR TAA S/P surgery PFO as per records SSS sp PPM not on anticoagulation secondary to bleeding/fall risk H/O TIA No acute cardiac symptoms Continue aspirin, statin, metoprolol (4) Aortocoronary bypass status: (5) Elevated troponin: Plan: Elevated troponin secondary to demand ischemia --Troponin was mildly elevated and serial troponin while equivocal but elevated --Echo -there is mild concentric LVH, septal motion is abnormal consistent with right ventricular pacemaker activation, LV systolic function is low normal at 50 to 55%, there is bioprosthetic aortic valve without suggestive of prosthetic valve stenosis or regurgitation, mild MR. Grade 2 diastolic dysfunction there is mild TR --ACS Less likely (6) Dementia: Plan: H/O Parkinson's disease/Lewy body dementia Continue home meds Reorient frequently to minimize delirium (7) Pacemaker: (8) Weakness: Plan: As above (9) HTN (hypertension): Plan: As above Plan DVT Px: Lovenox SQ CODE STATUS DNR/DNI Disposition Waiting for placement Admission and Anticipated Discharge Date Admission Date: December 19, 2022 Subjective Patient seen in follow up of UTI, dementia, need for placement pt is sitting in bed in no acute distress eating his lunch He denies any new complaint Does not speak much, denies any pain Denies any chest pain, palpitation, dizziness, shortness of breath Pt has Ferris catheter placed - asked RN to clarify when Ferris was placed (as per urology note soon after admission there was no Ferris and urology was consulted for penile edema) Per RN pt has not had BM in few days and giving stool softeners at this time Review of Systems Review of Systems: All systems reviewed & are unremarkable except as noted in Subjective Physical Exam Physical Exam: General- elderly M chronically ill appearing in No ac lisa distress Head- atraumatic Eyes- PERRL, EOMI, Neck - supple, no JVD L ungs- clear to aus cultation Heart- r egular rhythm; +mu rmur Abdomen- norm al bowel sounds, s oft, nontender Ext remities- no calf tenderness : Fo poornima placed with cl ear yellow urine i n bag Neuro- alert , awake, PERRL, EO CO; no facial asym metry; does not sp eak much to me, mo ves extremities Sk in- warm & dry Results & Data Results & Data ([facility]) Vital Signs (Past 12 Hours) Vital Signs Temp Pulse Resp BP Pulse Ox O2 Del Method 01/06/23 10:02 36.0 C L 60 18 131/80 95 Room Air 01/06/23 10:12 Room Air Medications Administered Current Inpatient Medications Aspirin (Aspirin 81 Mg Ectab) 81 mg PO QAM [facility] Stop: 01/18/23 08:59 Last Admin: 01/06/23 10:00 Dose: 81 mg Atorvastatin Calcium (Atorvastatin 20 Mg Tab) 20 mg PO QPM [facility] Stop: 01/18/23 20:59 Last Admin: 01/05/23 21:04 Dose: 20 mg Carbidopa/Levodopa (Carbidopa/Levodopa 25/100mg Tab) 1 tab PO BID [facility] Stop: 01/18/23 08:59 Last Admin: 01/06/23 10:00 Dose: 1 tab Donepezil HCl (Donepezil Hcl 5 Mg Tab) 5 mg PO QAM [facility] Stop: 01/18/23 08:59 Last Admin: 01/06/23 10:00 Dose: 5 mg Enoxaparin Sodium (Enoxaparin Inj 40 Mg/0.4 Ml Syr) [facility] [place] Stop: 01/18/23 08:59 Last Admin: 01/06/23 10:01 Dose: 40 mg Promethazine HCl 6.25 mg/ (Sodium Chloride) 50.25 mls @ 201 mls/hr IV Q6H PRN PRN Reason: Nausea And Vomiting Stop: 01/18/23 06:06 Last Infusion: 12/23/22 17:47 Dose: Infused Losartan Potassium (Losartan Potassium 25 Mg Tab) [facility] [place] Stop: 02/01/23 09:29 Last Admin: 01/02/23 10:53 Dose: Not Given Metoprolol Tartrate (Metoprolol Tartrate 25 Mg Tab) 12.5 mg PO BID [facility] Stop: 01/18/23 08:59 Last Admin: 01/06/23 10:03 Dose: 12.5 mg Polyethylene Glycol (Polyethylene (Miralax) 17 Gm Pack) 17 gm PO [facility] Stop: 01/18/23 08:59 Last Admin: 01/06/23 10:03 Dose: 17 gm Senna/Docusate Sodium (Docusate Sodium/Senna 50/8.6mg Tab) 1 [facility] [place] Stop: 01/18/23 08:59 Last Admin: 01/06/23 10:03 Dose: 1 tab
[2023-01-06] MEDS: ATORVASTATIN 20 MG TAB PO SCH (22:28)
[2023-01-07] MEDS: DONEPEZIL HCL 5 MG TAB PO SCH (08:44)
[2023-01-07] MEDS: CARBIDOPA/LEVODOPA 25/100MG TAB PO SCH ×2 (08:45→20:07)
[2023-01-07] MEDS: METOPROLOL TARTRATE 25 MG TAB PO SCH ×2 (08:45→20:07)
[2023-01-07] MEDS: ASPIRIN 81 MG ECTAB PO SCH (08:45)
[2023-01-07] MEDS: ENOXAPARIN INJ 40 MG/0.4 ML SYR SQ SCH (08:48)
[2023-01-07] MEDS: DOCUSATE SODIUM/SENNA 50/8.6MG TAB PO SCH (14:40)
[2023-01-07] MEDS: POLYETHYLENE (MIRALAX) 17 GM PACK PO SCH (14:40)
--- NOTE | 2023-01-07 16:54 | Hospitalist Progress Note ---
Date of Service January 07, 2023 Assessment & Plan (1) Sepsis: Plan: Secondary to complicated UTI Blood cultures negative to date Urine culture grew Proteus mirabilis Received IV cefepime transition to Keflex Completed antibiotic course Continue current management Waiting for placement Pt has Ferris catheter placed - was placed on 12/23 (as per urology note soon after admission there was no Ferris and urology was consulted for penile edema) Delirium In setting of dementia Reorient frequently Generalized weakness Deconditioning due to comorbidities Refuses PT OT Needs assistance with feeding / however today eating by himself on my eval Most likely Pressure ulcers of left gluteal fold/ischium and L scrotum, unstageable, POA Scrotal edema with chronic skin changes and small ulcers noted as well Continue Wound care Hypertension Continue metoprolol Resume amlodipine, losartan as able if BP rises Held Amlodipine, losartan BP Variable Other chronic conditions Chronic anemia, hemoglobin at baseline hemolytic anemia as per records Hemoglobin stable (2) Acute UTI (urinary tract infection): Plan: As above Laceration of the scrotum Urology consulted:Appreciate input and recommendation Does not require any follow-up as per the urologist (3) CAD (coronary artery disease): Plan: H/O CAD sp CABG/stenting Aortic stenosis S/P Bioprosthetic AVR TAA S/P surgery PFO as per records SSS sp PPM not on anticoagulation secondary to bleeding/fall risk H/O TIA No acute cardiac symptoms Continue aspirin, statin, metoprolol (4) Aortocoronary bypass status: (5) Elevated troponin: Plan: Elevated troponin secondary to demand ischemia --Troponin was mildly elevated and serial troponin while equivocal but elevated --Echo -there is mild concentric LVH, septal motion is abnormal consistent with right ventricular pacemaker activation, LV systolic function is low normal at 50 to 55%, there is bioprosthetic aortic valve without suggestive of prosthetic valve stenosis or regurgitation, mild MR. Grade 2 diastolic dysfunction there is mild TR --ACS Less likely (6) Dementia: Plan: H/O Parkinson's disease/Lewy body dementia Continue home meds Reorient frequently to minimize delirium (7) Pacemaker: (8) Weakness: Plan: As above (9) HTN (hypertension): Plan: As above Plan DVT Px: Lovenox SQ CODE STATUS DNR/DNI Disposition Waiting for placement Admission and Anticipated Discharge Date Admission Date: December 19, 2022 Subjective Patient seen in follow up of UTI, dementia, need for placement pt is sitting in bed in no acute distress He denies any new complaint Does not speak much, denies any pain Says catheter bothers him Denies any chest pain, palpitation, dizziness, shortness of breath Pt has Ferris catheter placed - was placed on 12/23 Review of Systems Review of Systems: All systems reviewed & are unremarkable except as noted in Subjective Physical Exam Physical Exam: General- elderly M chronically ill appearing in No ac [place] distress Head- atraumatic Eyes- PERRL, EOMI, Neck - supple, no JVD L ungs- clear to aus cultation Heart- r egular rhythm; +mu rmur Abdomen- norm al bowel sounds, s oft, nontender Ext remities- no calf tenderness : Fo poornima placed with cl ear yellow urine i n bag Neuro- alert , awake, PERRL, EO VT; no facial asym metry; does not sp eak much to me, mo ves extremities Sk in- warm & dry Results & Data Results & Data ([facility]) Vital Signs (Past 12 Hours) Vital Signs Temp Pulse Resp BP BP Pulse Ox O2 Del Method 01/07/23 14:58 36.8 C 60 18 113/69 96 Room Air 01/07/23 11:27 36.9 C 61 20 93/57 L 96 Room Air 01/07/23 07:30 36.6 C 60 20 115/68 94 Room Air Medications Administered Current Inpatient Medications Aspirin (Aspirin 81 Mg Ectab) 81 mg PO QAM [facility] Stop: 01/18/23 08:59 Last Admin: 01/07/23 08:45 Dose: 81 mg Atorvastatin Calcium (Atorvastatin 20 Mg Tab) 20 mg PO QPM [facility] Stop: 01/18/23 20:59 Last Admin: 01/06/23 22:28 Dose: Not Given Carbidopa/Levodopa (Carbidopa/Levodopa 25/100mg Tab) 1 tab PO BID [facility] Stop: 01/18/23 08:59 Last Admin: 01/07/23 08:45 Dose: 1 tab Donepezil HCl (Donepezil Hcl 5 Mg Tab) 5 mg PO QAM [facility] Stop: 01/18/23 08:59 Last Admin: 01/07/23 08:44 Dose: 5 mg Enoxaparin Sodium (Enoxaparin Inj 40 Mg/0.4 Ml Syr) [facility] [place] Stop: 01/18/23 08:59 Last Admin: 01/07/23 08:48 Dose: 40 mg Promethazine HCl 6.25 mg/ (Sodium Chloride) 50.25 mls @ 201 mls/hr IV Q6H PRN PRN Reason: Nausea And Vomiting Stop: 01/18/23 06:06 Last Infusion: 12/23/22 17:47 Dose: Infused Losartan Potassium (Losartan Potassium 25 Mg Tab) [facility] [place] Stop: 02/01/23 09:29 Last Admin: 01/02/23 10:53 Dose: Not Given Metoprolol Tartrate (Metoprolol Tartrate 25 Mg Tab) 12.5 mg PO BID [facility] Stop: 01/18/23 08:59 Last Admin: 01/07/23 08:45 Dose: 12.5 mg Polyethylene Glycol (Polyethylene (Miralax) 17 Gm Pack) 17 gm PO [facility] Stop: 01/18/23 08:59 Last Admin: 01/07/23 14:40 Dose: Not Given Senna/Docusate Sodium (Docusate Sodium/Senna 50/8.6mg Tab) 1 tab PO [facility] Stop: 01/18/23 08:59 Last Admin: 01/07/23 14:40 Dose: Not Given
[2023-01-07] MEDS: ATORVASTATIN 20 MG TAB PO SCH (20:07)
[2023-01-08] MEDS: ENOXAPARIN INJ 40 MG/0.4 ML SYR SQ SCH (08:26)
[2023-01-08] MEDS: DONEPEZIL HCL 5 MG TAB PO SCH (08:26)
[2023-01-08] MEDS: CARBIDOPA/LEVODOPA 25/100MG TAB PO SCH ×2 (08:26→20:27)
[2023-01-08] MEDS: METOPROLOL TARTRATE 25 MG TAB PO SCH ×2 (08:27→20:26)
[2023-01-08] MEDS: ASPIRIN 81 MG ECTAB PO SCH (08:27)
[2023-01-08] MEDS: DOCUSATE SODIUM/SENNA 50/8.6MG TAB PO SCH (08:31)
[2023-01-08] MEDS: POLYETHYLENE (MIRALAX) 17 GM PACK PO SCH (08:31)
--- NOTE | 2023-01-08 15:29 | Hospitalist Progress Note ---
Date of Service January 08, 2023 Assessment & Plan (1) Sepsis: Plan: Secondary to complicated UTI Blood cultures negative to date Urine culture grew Proteus mirabilis Received IV cefepime transition to Keflex Completed antibiotic course Continue current management Waiting for placement Pt has Ferris catheter placed - was placed on 12/23 (as per urology note soon after admission there was no Ferris and urology was consulted for penile edema) Delirium In setting of dementia Reorient frequently Generalized weakness Deconditioning due to comorbidities Refuses PT OT Needs assistance with feeding / however sometimes seen to be eating by himself Most likely Pressure ulcers of left gluteal fold/ischium and L scrotum, unstageable, POA Scrotal edema with chronic skin changes and small ulcers noted as well Continue Wound care Hypertension Continue metoprolol Resume amlodipine, losartan as able if BP rises Held Amlodipine, losartan BP Variable Other chronic conditions Chronic anemia, hemoglobin at baseline hemolytic anemia as per records Hemoglobin stable (2) Acute UTI (urinary tract infection): Plan: As above Laceration of the scrotum Urology consulted:Appreciate input and recommendation Does not require any follow-up as per the urologist (3) CAD (coronary artery disease): Plan: H/O CAD sp CABG/stenting Aortic stenosis S/P Bioprosthetic AVR TAA S/P surgery PFO as per records SSS sp PPM not on anticoagulation secondary to bleeding/fall risk H/O TIA No acute cardiac symptoms Continue aspirin, statin, metoprolol (4) Aortocoronary bypass status: (5) Elevated troponin: Plan: Elevated troponin secondary to demand ischemia --Troponin was mildly elevated and serial troponin while equivocal but elevated --Echo -there is mild concentric LVH, septal motion is abnormal consistent with right ventricular pacemaker activation, LV systolic function is low normal at 50 to 55%, there is bioprosthetic aortic valve without suggestive of prosthetic valve stenosis or regurgitation, mild MR. Grade 2 diastolic dysfunction there is mild TR --ACS Less likely (6) Dementia: Plan: H/O Parkinson's disease/Lewy body dementia Continue home meds Reorient frequently to minimize delirium (7) Pacemaker: (8) Weakness: Plan: As above (9) HTN (hypertension): Plan: As above Plan DVT Px: Lovenox SQ CODE STATUS DNR/DNI Disposition Waiting for placement Admission and Anticipated Discharge Date Admission Date: December 19, 2022 Subjective Patient seen in follow up of UTI, dementia, need for placement pt is sitting in bed and being fed by healthcare administrative assistant, cooperative and in no distress He denies any new complaint Does not speak much, denies any pain Denies any chest pain, palpitation, dizziness, shortness of breath Evaluated by Gely earlier today Review of Systems Review of Systems: All systems reviewed & are unremarkable except as noted in Subjective Physical Exam Physical Exam: General- elderly M chronically ill appearing in No ac lisa distress Head- atraumatic Eyes- PERRL, EOMI, Neck - supple, no JVD L ungs- clear to aus cultation Heart- r egular rhythm; +mu rmur Abdomen- norm al bowel sounds, s oft, nontender Ext remities- no calf tenderness : Fo poornima placed with cl ear yellow urine i n bag Neuro- alert , awake, PERRL, EO [place]; no facial asym metry; does not sp eak much to me, mo ves extremities Sk in- warm & dry Results & Data Results & Data ([facility]) Vital Signs (Past 12 Hours) Vital Signs Temp Pulse Resp BP BP Pulse Ox O2 Del Method 01/08/23 14:45 36.5 C 57 L 20 110/64 97 Room Air 01/08/23 07:13 36.5 C 60 20 122/67 96 Room Air Medications Administered Current Inpatient Medications Aspirin (Aspirin 81 Mg Ectab) 81 mg PO QAM [facility] Stop: 01/18/23 08:59 Last Admin: 01/08/23 08:27 Dose: 81 mg Atorvastatin Calcium (Atorvastatin 20 Mg Tab) 20 mg PO QPM [facility] Stop: 01/18/23 20:59 Last Admin: 01/07/23 20:07 Dose: 20 mg Carbidopa/Levodopa (Carbidopa/Levodopa 25/100mg Tab) 1 tab PO BID [facility] Stop: 01/18/23 08:59 Last Admin: 01/08/23 08:26 Dose: 1 tab Donepezil HCl (Donepezil Hcl 5 Mg Tab) 5 mg PO QAM [facility] Stop: 01/18/23 08:59 Last Admin: 01/08/23 08:26 Dose: 5 mg Enoxaparin Sodium (Enoxaparin Inj 40 Mg/0.4 Ml Syr) 40 mg SQ QAM [facility] Stop: 01/18/23 08:59 Last Admin: 01/08/23 08:26 Dose: 40 mg Promethazine HCl 6.25 mg/ (Sodium Chloride) 50.25 mls @ 201 mls/hr IV Q6H PRN PRN Reason: Nausea And Vomiting Stop: 01/18/23 06:06 Last Infusion: 12/23/22 17:47 Dose: Infused Losartan Potassium (Losartan Potassium 25 Mg Tab) [facility]: 02/01/23 09:29 Last Admin: 01/02/23 10:53 Dose: Not Given Metoprolol Tartrate (Metoprolol Tartrate 25 Mg Tab) 12.5 mg PO BID [facility] Stop: 01/18/23 08:59 Last Admin: 01/08/23 08:27 Dose: 12.5 mg Polyethylene Glycol (Polyethylene (Miralax) 17 Gm Pack) 17 [facility]m [facility] [place] Stop: 01/18/23 08:59 Last Admin: 01/08/23 08:31 Dose: 17 gm Senna/Docusate Sodium (Docusate Sodium/Senna 50/8.6mg Tab) 1 [facility] [place] Stop: 01/18/23 08:59 Last Admin: 01/08/23 08:31 Dose: 1 tab
[2023-01-08] MEDS: ATORVASTATIN 20 MG TAB PO SCH (20:25)
[2023-01-08] MEDS ORDERED: MICONAZOLE NITRATE POWDER 43 GM EXT PRN (22:58)
[2023-01-09] MEDS: ENOXAPARIN INJ 40 MG/0.4 ML SYR SQ SCH (07:26)
[2023-01-09] MEDS: DONEPEZIL HCL 5 MG TAB PO SCH (07:26)
[2023-01-09] MEDS: CARBIDOPA/LEVODOPA 25/100MG TAB PO SCH ×2 (07:26→20:31)
[2023-01-09] MEDS: METOPROLOL TARTRATE 25 MG TAB PO SCH ×2 (07:26→20:31)
[2023-01-09] MEDS: ASPIRIN 81 MG ECTAB PO SCH (07:27)
[2023-01-09] MEDS: DOCUSATE SODIUM/SENNA 50/8.6MG TAB PO SCH (07:27)
[2023-01-09] MEDS: POLYETHYLENE (MIRALAX) 17 GM PACK PO SCH (07:27)
--- NOTE | 2023-01-09 08:46 | Hospitalist Progress Note ---
Date of Service January 09, 2023 Assessment & Plan (1) Sepsis: Plan: Secondary to complicated UTI Blood cultures negative to date Urine culture grew Proteus mirabilis Received IV cefepime transition to Keflex Completed antibiotic course Continue current management Waiting for placement Pt has Ferris catheter placed - was placed on 12/23 (as per urology note soon after admission there was no Ferris and urology was consulted for penile edema) Delirium In setting of dementia Reorient frequently Generalized weakness Deconditioning due to comorbidities Refuses PT OT Needs assistance with feeding / however sometimes seen to be eating by himself Most likely Pressure ulcers of left gluteal fold/ischium and L scrotum, unstageable, POA Scrotal edema with chronic skin changes and small ulcers noted as well Continue Wound care Hypertension Continue metoprolol Resume amlodipine, losartan as able if BP rises Held Amlodipine, losartan BP Variable Other chronic conditions Chronic anemia, hemoglobin at baseline hemolytic anemia as per records Hemoglobin stable (2) Acute UTI (urinary tract infection): Plan: As above Laceration of the scrotum Urology consulted:Appreciate input and recommendation Does not require any follow-up as per the urologist (3) CAD (coronary artery disease): Plan: H/O CAD sp CABG/stenting Aortic stenosis S/P Bioprosthetic AVR TAA S/P surgery PFO as per records SSS sp PPM not on anticoagulation secondary to bleeding/fall risk H/O TIA No acute cardiac symptoms Continue aspirin, statin, metoprolol (4) Aortocoronary bypass status: (5) Elevated troponin: Plan: Elevated troponin secondary to demand ischemia --Troponin was mildly elevated and serial troponin while equivocal but elevated --Echo -there is mild concentric LVH, septal motion is abnormal consistent with right ventricular pacemaker activation, LV systolic function is low normal at 50 to 55%, there is bioprosthetic aortic valve without suggestive of prosthetic valve stenosis or regurgitation, mild MR. Grade 2 diastolic dysfunction there is mild TR --ACS Less likely (6) Dementia: Plan: H/O Parkinson's disease/Lewy body dementia Continue home meds Reorient frequently to minimize delirium (7) Pacemaker: (8) Weakness: Plan: As above (9) HTN (hypertension): Plan: As above Plan DVT Px: Lovenox SQ CODE STATUS DNR/DNI Disposition Waiting for placement Admission and Anticipated Discharge Date Admission Date: December 19, 2022 Subjective Patient seen in follow up of UTI, dementia, need for placement pt is sitting up in bed , resting in NAD, calm. Yesterday seen being fed by assistant to the dean, was cooperative and in no distress Pt denies any new complaint Does not speak much, but denies any pain Denies any chest pain, palpitation, dizziness, shortness of breath Evaluated by Gely yesterday Review of Systems Review of Systems: All systems reviewed & are unremarkable except as noted in Subjective Physical Exam Physical Exam: General- elderly M chronically ill appearing in No ac pilot station distress Head- atraumatic Eyes- PERRL, EOMI, Neck - supple, no JVD L ungs- clear to aus cultation Heart- r egular rhythm; +mu rmur Abdomen- norm al bowel sounds, s oft, nontender Ext remities- no calf tenderness : Fo poornima placed with cl ear yellow urine i n bag Neuro- alert , awake, PERRL, EO [place]; no facial asym metry; does not sp eak much to me, mo ves extremities Sk in- warm & dry Results & Data Results & Data ([facility]) Vital Signs (Past 12 Hours) Vital Signs Temp Pulse Resp BP Pulse Ox O2 Del Method 01/09/23 08:06 36.1 C L 63 16 144/80 H 95 Room Air 01/08/23 23:09 36.5 C 61 20 132/78 97 Room Air Medications Administered Current Inpatient Medications Aspirin (Aspirin 81 Mg Ectab) 81 mg PO QAM [facility] Stop: 01/18/23 08:59 Last Admin: 01/09/23 07:27 Dose: 81 mg Atorvastatin Calcium (Atorvastatin 20 Mg Tab) 20 mg PO QPM [facility] Stop: 01/18/23 20:59 Last Admin: 01/08/23 20:25 Dose: 20 mg Carbidopa/Levodopa (Carbidopa/Levodopa 25/100mg Tab) 1 tab PO BID [facility] Stop: 01/18/23 08:59 Last Admin: 01/09/23 07:26 Dose: 1 tab Donepezil HCl (Donepezil Hcl 5 Mg Tab) 5 mg PO QAM [facility] Stop: 01/18/23 08:59 Last Admin: 01/09/23 07:26 Dose: 5 mg Enoxaparin Sodium (Enoxaparin Inj 40 Mg/0.4 Ml Syr) 40 mg SQ QAM [facility] Stop: 01/18/23 08:59 Last Admin: 01/09/23 07:26 Dose: 40 mg Promethazine HCl 6.25 mg/ (Sodium Chloride) 50.25 mls @ 201 mls/hr IV Q6H PRN PRN Reason: Nausea And Vomiting Stop: 01/18/23 06:06 Last Infusion: 12/23/22 17:47 Dose: Infused Losartan Potassium (Losartan Potassium 25 Mg Tab) [facility]: 02/01/23 09:29 Last Admin: 01/02/23 10:53 Dose: Not Given Metoprolol Tartrate (Metoprolol Tartrate 25 Mg Tab) 12.5 mg PO BID [facility] Stop: 01/18/23 08:59 Last Admin: 01/09/23 07:26 Dose: 12.5 mg Miconazole Nitrate (Miconazole Nitrate Powder 43 Gm) 1 appln EXT PRN PRN PRN Reason: Rash Stop: 02/07/23 22:57 Polyethylene Glycol (Polyethylene (Miralax) 17 Gm Pack) 17 gm PO QAM [facility] Stop: 01/18/23 08:59 Last Admin: 01/09/23 07:27 Dose: Not Given Senna/Docusate Sodium (Docusate Sodium/Senna 50/8.6mg Tab) [facility] Stop: 01/18/23 08:59 Last Admin: 01/09/23 07:27 Dose: 1 tab
[2023-01-09] MEDS: ATORVASTATIN 20 MG TAB PO SCH (20:30)
[2023-01-10] MEDS: METOPROLOL TARTRATE 25 MG TAB PO SCH ×2 (09:26→20:19)
[2023-01-10] MEDS: DONEPEZIL HCL 5 MG TAB PO SCH (09:26)
[2023-01-10] MEDS: ASPIRIN 81 MG ECTAB PO SCH (09:27)
[2023-01-10] MEDS: CARBIDOPA/LEVODOPA 25/100MG TAB PO SCH ×2 (09:27→20:19)
[2023-01-10] MEDS: ENOXAPARIN INJ 40 MG/0.4 ML SYR SQ SCH (09:27)
[2023-01-10] MEDS: DOCUSATE SODIUM/SENNA 50/8.6MG TAB PO SCH (09:32)
[2023-01-10] MEDS: POLYETHYLENE (MIRALAX) 17 GM PACK PO SCH (09:32)
--- NOTE | 2023-01-10 10:31 | Hospitalist Progress Note ---
Date of Service January 10, 2023 Assessment & Plan (1) Sepsis: Plan: Secondary to complicated UTI Blood cultures negative to date Urine culture grew Proteus mirabilis Received IV cefepime transition to Keflex Completed antibiotic course Continue current management Waiting for placement Pt has Ferris catheter placed - was placed on 12/23 (as per urology note soon after admission there was no Ferris and urology was consulted for penile edema) Delirium In setting of dementia Reorient frequently Generalized weakness Deconditioning due to comorbidities Refuses PT OT Needs assistance with feeding / however sometimes seen to be eating by himself Most likely Pressure ulcers of left gluteal fold/ischium and L scrotum, unstageable, POA Scrotal edema with chronic skin changes and small ulcers noted as well Continue Wound care Hypertension Continue metoprolol Resume amlodipine, losartan as able if BP rises Held Amlodipine, losartan BP Variable Other chronic conditions Chronic anemia, hemoglobin at baseline hemolytic anemia as per records Hemoglobin stable (2) Acute UTI (urinary tract infection): Plan: As above Laceration of the scrotum Urology consulted:Appreciate input and recommendation Does not require any follow-up as per the urologist (3) CAD (coronary artery disease): Plan: H/O CAD sp CABG/stenting Aortic stenosis S/P Bioprosthetic AVR TAA S/P surgery PFO as per records SSS sp PPM not on anticoagulation secondary to bleeding/fall risk H/O TIA No acute cardiac symptoms Continue aspirin, statin, metoprolol (4) Aortocoronary bypass status: (5) Elevated troponin: Plan: Elevated troponin secondary to demand ischemia --Troponin was mildly elevated and serial troponin while equivocal but elevated --Echo -there is mild concentric LVH, septal motion is abnormal consistent with right ventricular pacemaker activation, LV systolic function is low normal at 50 to 55%, there is bioprosthetic aortic valve without suggestive of prosthetic valve stenosis or regurgitation, mild MR. Grade 2 diastolic dysfunction there is mild TR --ACS Less likely (6) Dementia: Plan: H/O Parkinson's disease/Lewy body dementia Continue home meds Reorient frequently to minimize delirium (7) Pacemaker: (8) Weakness: Plan: As above (9) HTN (hypertension): Plan: As above Plan DVT Px: Lovenox SQ CODE STATUS DNR/DNI Disposition Waiting for placement Admission and Anticipated Discharge Date Admission Date: December 19, 2022 Subjective Patient seen in follow up of UTI, dementia, need for placement pt is sitting up in bed , resting in NAD, calm Pt denies any new complaint Does not speak much, but denies any pain Denies any chest pain, palpitation, dizziness, shortness of breath Evaluated by Gely - plan to DC to Gely w/ hospice possibly tomorrow Review of Systems Review of Systems: All systems reviewed & are unremarkable except as noted in Subjective Physical Exam Physical Exam: General- elderly M chronically ill appearing in No ac lisa distress Head- atraumatic Eyes- PERRL, EOMI, Neck - supple, no JVD L ungs- clear to aus cultation Heart- r egular rhythm; +mu rmur Abdomen- norm al bowel sounds, s oft, nontender Ext remities- no calf tenderness : Fo poornima placed with cl ear yellow urine i n bag Neuro- alert , awake, PERRL, EO [place]; no facial asym metry; does not sp eak much to me, mo ves extremities Sk in- warm & dry Results & Data Results & Data ([facility]) Vital Signs (Past 12 Hours) Vital Signs Temp Pulse Resp BP Pulse Ox O2 Del Method 01/10/23 10:01 Room Air 01/10/23 07:58 36.1 C L 62 16 128/81 97 Room Air 01/09/23 23:18 36.3 C L 60 18 130/79 96 Room Air Medications Administered Current Inpatient Medications Aspirin (Aspirin 81 Mg Ectab) 81 mg PO QAM [facility] Stop: 01/18/23 08:59 Last Admin: 01/10/23 09:27 Dose: 81 mg Atorvastatin Calcium (Atorvastatin 20 Mg Tab) 20 mg PO QPM [facility] Stop: 01/18/23 20:59 Last Admin: 01/09/23 20:30 Dose: 20 mg Carbidopa/Levodopa (Carbidopa/Levodopa 25/100mg Tab) 1 tab PO BID [facility] Stop: 01/18/23 08:59 Last Admin: 01/10/23 09:27 Dose: 1 tab Donepezil HCl (Donepezil Hcl 5 Mg Tab) 5 mg PO QAM [facility] Stop: 01/18/23 08:59 Last Admin: 01/10/23 09:26 Dose: 5 mg Enoxaparin Sodium (Enoxaparin Inj 40 Mg/0.4 Ml Syr) 40 mg SQ QAM [facility] Stop: 01/18/23 08:59 Last Admin: 01/10/23 09:27 Dose: 40 mg Promethazine HCl 6.25 mg/ (Sodium Chloride) 50.25 mls @ 201 mls/hr IV Q6H PRN PRN Reason: Nausea And Vomiting Stop: 01/18/23 06:06 Last Infusion: 12/23/22 17:47 Dose: Infused Losartan Potassium (Losartan Potassium 25 Mg Tab) [facility] Stop: 02/01/23 09:29 Last Admin: 01/02/23 10:53 Dose: Not Given Metoprolol Tartrate (Metoprolol Tartrate 25 Mg Tab) 12.5 mg PO BID [facility] Stop: 01/18/23 08:59 Last Admin: 01/10/23 09:26 Dose: 12.5 mg Miconazole Nitrate (Miconazole Nitrate Powder 43 Gm) 1 appln EXT PRN PRN PRN Reason: Rash Stop: 02/07/23 22:57 Polyethylene Glycol (Polyethylene (Miralax) 17 Gm Pack) 17 gm PO QAM [facility] Stop: 01/18/23 08:59 Last Admin: 01/10/23 09:32 Dose: 17 gm Senna/Docusate Sodium (Docusate Sodium/Senna 50/8.6mg Tab) 1 tab PO QAM [facility] Stop: 01/18/23 08:59 Last Admin: 01/10/23 09:32 Dose: 1 tab
[2023-01-10] MEDS: ATORVASTATIN 20 MG TAB PO SCH (20:20)
[2023-01-11] MEDS: METOPROLOL TARTRATE 25 MG TAB PO SCH (07:10)
[2023-01-11] MEDS: ASPIRIN 81 MG ECTAB PO SCH (07:10)
[2023-01-11] MEDS: CARBIDOPA/LEVODOPA 25/100MG TAB PO SCH (07:10)
[2023-01-11] MEDS: DOCUSATE SODIUM/SENNA 50/8.6MG TAB PO SCH (07:11)
[2023-01-11] MEDS: DONEPEZIL HCL 5 MG TAB PO SCH (07:11)
[2023-01-11] MEDS: ENOXAPARIN INJ 40 MG/0.4 ML SYR SQ SCH (07:11)
[2023-01-11] MEDS: POLYETHYLENE (MIRALAX) 17 GM PACK PO SCH (07:11)
--- NOTE | 2023-01-11 08:35 | Discharge Summary ---
Date of Service January 11, 2023 Admission HPI Per Admitting Provider History obtained from patient, family, and records. Limited history from patient secondary to dementia. Medical history significant for CAD sp CABG/stenting, aortic stenosis sp bioprosthetic AVR, TAA status post surgery, PFO as per records, SSS sp PPM not on anticoagulation secondary to bleeding, HTN, TIA, Parkinson's disease/Lewy body dementia, chronic anemia (baseline hemoglobin 11-12 ), hemolytic anemia as per records, history of dysphagia, esophageal dysmotility as per records. Last confinement June 2022 for TIA. Patient noted to be increasingly weak today. Blood pressure noted to be 180s at the dementia unit. Patient brought to the ER for evaluation. IV ceftriaxone administered at the ER. Patient unable to answer questions regarding chest pain, shortness of breath, headache, abdominal pain. MEDICAL HISTORY: As above. SURGICAL HISTORY: Laser surgery of the eye, pacemaker placement, CABG, aortic aneurysm repair, aortic valve surgery. FAMILY HISTORY: Heart disease, SLE PERSONAL AND SOCIAL HISTORY: Nonsmoker, no chronic ETOH intake. 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 Admission Exam Per Admitting Provider GENERAL: Demented, no respiratory distress SKIN: Pallor , warm HEENT: Pale palpebral conjunctivae, no ptosis, dry buccal mucosa NECK : Supple, no tenderness CHEST : Decreased breath sounds, no chest wall tenderness HEART : RRR, no obvious murmurs ABDOMEN: Some distention, nontender EXTREMITIES : No LE swelling/tenderness, no other conspicuous deformities noted NEUROLOGIC : Demented, hard of hearing, no facial asymmetry, gait and stance not assessed Principal Diagnosis Sepsis secondary to UTI Parkinson's disease/ Lewy's body dementia Discharge Exam General- elderly M chronically ill appearing in No acute distress Head- atraumatic Eyes- PERRL, EOMI, Neck- supple, no JVD Lungs- clear to auscultation Heart- regular rhythm; +murmur Abdomen- normal bowel sounds, soft, nontender Extremities- no calf tenderness : Ferris placed with clear yellow urine in bag Neuro- alert, awake, PERRL, EOMI; no facial asymmetry; does not speak much to me, moves extremities Skin- warm & dry Discharge Data Allergies Allergy/AdvReac Type Severity Reaction Status Date / Time No Known Allergies Allergy Verified 12/19/22 11:15 Consultations 12/19/22 05:22 ED Decision to Admit Stat 12/20/22 08:00 Consult Urology Routine Hospital Course (1) Sepsis: Secondary to complicated UTI Blood cultures negative to date Urine culture grew Proteus mirabilis Received IV cefepime transition to Keflex Completed antibiotic course Continue current management Waiting for placement Pt has Ferris catheter placed - was placed on 12/23 (urology was consulted for penile edema, now resolved) Seems that catheter was placed d/t significant skin changes/ scrotal laceration, as below Delirium In setting of dementia Reorient frequently Generalized weakness Deconditioning due to comorbidities Refuses PT OT Needs assistance with feeding / however sometimes seen to be eating by himself Most likely Pressure ulcers of left gluteal fold/ischium and L scrotum, unstageable, POA Scrotal edema with chronic skin changes and small ulcers noted as well Continue Wound care Hypertension Continue metoprolol Resume amlodipine, losartan as able if BP rises Held Amlodipine, losartan BP Variable Other chronic conditions Chronic anemia, hemoglobin at baseline hemolytic anemia as per records Hemoglobin stable (2) Acute UTI (urinary tract infection): As above Laceration of the scrotum Urology consulted:Appreciate input and recommendation Does not require any follow-up as per the urologist (3) CAD (coronary artery disease): H/O CAD sp CABG/stenting Aortic stenosis S/P Bioprosthetic AVR TAA S/P surgery PFO as per records SSS sp PPM not on anticoagulation secondary to bleeding/fall risk H/O TIA No acute cardiac symptoms Continue aspirin, statin, metoprolol (4) Aortocoronary bypass status: (5) Elevated troponin: Elevated troponin secondary to demand ischemia --Troponin was mildly elevated and serial troponin while equivocal but elevated --Echo -there is mild concentric LVH, septal motion is abnormal consistent with right ventricular pacemaker activation, LV systolic function is low normal at 50 to 55%, there is bioprosthetic aortic valve without suggestive of prosthetic valve stenosis or regurgitation, mild MR. Grade 2 diastolic dysfunction there is mild TR --ACS Less likely (6) Dementia: H/O Parkinson's disease/Lewy body dementia Continue home meds Reorient frequently to minimize delirium (7) Pacemaker: (8) Weakness: As above (9) HTN (hypertension): As above Total Time Total Time Spent Total Time Spent (In Minutes): 40 Discharge Plan Discharge Items Patient Disposition: Hospice - Medical Facility Reason For Visit: SEPSIS Discharge Diagnosis: Sepsis secondary to UTI Parkinson's disease/ Lewy's body dementia Activity: Per Instructions section Non-emergency contact: Primary Care Provider Call non-emergency contact if: you have any medication questions and your symptoms worsen Follow-up/Referrals: Gely cowanWright [Primary Care Provider] - Diet: Regular Diet Texture: Mechanical soft (ground) Addtl Attending Provider Instructions: Patient initially admitted with sepsis secondary to UTI. Patient was treated with antibiotics in the hospital. His blood pressure medications were held, except for metoprolol. Plan to discharge patient back to [place], with hospice services. Pending Studies at Discharge: No Stand-Alone Forms: My [facility] [employer] Skilled Items Patient informed of condition?: Yes DNR: Yes Discharge Level of Care: Other Communicable Disease: No Discharge Prognosis: Other Lines: None Urinary Catheter: Yes Medications and DC Order Prescriptions: Continued sennosides-docusate sodium [Senokot-S] 8.6-50 mg Tablet 1 tab PO QAM Qty: 30 0RF Rx Instructions: hold for loose stool atorvastatin [Lipitor] 20 mg tablet 20 mg PO QPM Qty: 30 0RF carbidopa-levodopa 25-100 mg tablet 1 tab PO BID Qty: 60 0RF acetaminophen [Tylenol] 325 mg Tablet 650 mg PO Q4H PRN (Reason: PAIN/FEVER) donepezil 5 mg tablet 5 mg PO QAM polyethylene glycol 3350 [Miralax] 17 gram powder in packet 17 g PO QAM Rx Instructions: hold for loose stool aspirin 81 mg tablet,delayed release (DR/EC) 81 mg PO QAM metoprolol tartrate 25 mg tablet 25 mg PO QAM Discontinued losartan 50 mg Tablet 50 mg PO BID Qty: 60 0RF Rx Instructions: hold for sbp < 110 furosemide 20 mg tablet 20 mg PO QAM Qty: 30 0RF potassium chloride 20 mEq tablet,ER particles/crystals 20 meq PO DAILY amlodipine [Norvasc] 5 mg tablet 5 mg PO DAILY Rx Instructions: HOLD FOR SBP < 110 Discharge Orders: Discharge Order (Routine); Ordered 01/11/23 Ordered By: Jermaine Benítez Admission Data Admit Date/Time: 12/19/22 06:02 Attending Provider: Jermaine Benítez Admit Provider: Cj Hogan Primary Care Provider: Gely cowanWright Other Providers: [place] ; May,[facility] ; Dada Fontanez ; Sal Figueroa ; Cj Hogan.
== END 2023-01-11 11:24 | disposition hospice, inpatient (51) | DRG 872 ==
LOC: ED 04:10 → EDINP 06:02 → SUATTDRO 06:02 → 2W 12-20 06:48

== ENCOUNTER 2023-02-03 14:10 | Inpatient (IN) ==
[~2023-02-03 14:10] MED LIST changes: -ASPI81TA28 PO; -ATOR-22 PO; -DOCU-94 PO; -DXY100 PO; -FRS/40 PO; +KETAMINE HCL INJ 50 MG/ML 10 ML VIAL IV ONE; -METO50TA16 PO; -NTRGSL/4 UT; -POTA20TA13 PO; -PREN1CAP7 PO; +ROCURONIUM BROMIDE 10 MG/ML 5 ML VIAL IV ONE; -SENN-48 PO
[2023-02-03] MEDS ORDERED: SODIUM CHLORIDE 0.9% 1000ML 1,000 ML IV ONE (14:21)
[2023-02-03] MEDS ORDERED: LACTATED RINGER'S 1,000 ML IV ONE ×2 (14:21→15:14)
[2023-02-03] MEDS ORDERED: PIPERACILLIN/TAZOBACTAM 4.5 GM/120 ML BAG IV ONE (14:21)
[2023-02-03] MEDS: Standard Conc 16mcg/mL; 4mg in 250mL IV SCH ×3 (14:34→22:46)
[2023-02-03] MEDS: NOREPINEPHRINE/D5W 4 MG/250 ML IV ONE ×2 (14:34→14:41)
[2023-02-03] MEDS ORDERED: RAPID SEQUENCE INDUCTION BAG ONE (14:45)
[2023-02-03 14:48] LABS: Hemoglobin 16.5 g/dl (14.0-18.0); Mean Corpuscular Hemoglobin 30.8 pg (25.0-34.0); Mean Corpuscular Hgb Conc 31.7 g/dL (32.0-36.0); Mean Platelet Volume 12.3 fL (9.4-12.4); Platelet Count 237 K/uL (130-400); RDW Coefficient of Variation 14.5 % (11.5-14.5); RDW Standard Deviation 51.4 fL (36.4-46.3); Red Blood Count 5.36 M/uL (4.70-6.10); White Blood Count 26.51 K/ul (4.8-10.8)
--- NOTE | 2023-02-03 15:11 | Emergency Department Note ---
Impression & Plan Acute dehydration, Elevated troponin, Hypoxemia, Acute UTI (urinary tract infection), Sepsis, AMS (altered mental status), Acute hypernatremia, Acute renal failure (ARF) ED Provider Note Provider: Avni Candelario MD DATE OF SERVICE: 02/03/2023 CHIEF COMPLAINT: Hypoxia, unresponsive HISTORY OF PRESENT ILLNESS: Patient is a 87-year-old gentleman history of CAD, Parkinson disease, Lewy body dementia, hypertension, and recent admission for urosepsis presenting here from [facility] where he resides. Patient evidently is been under hospice status but was revoked shortly before arrival by his . Evidently the is out of the country and wishes for everything to be done at this time. Patient is unresponsive upon arrival. Occasionally opens his eyes. Not answering questions or following commands. Hypoxic on room air into the 80s and hypotensive with blood pressure into the 80s. EMS reports the patient has not had anything to eat or drink in several days. PAST MEDICAL HISTORY: As noted above MEDICATIONS: Reviewed available records from the facility SOCIAL HISTORY: resides at [facility] PHYSICAL EXAM: GENERAL: Eyes open staring into space not responding to internal stimuli. Head: normocephalic and atraumatic EYES: No injection, discharge or icterus. NECK: Trachea midline. Supple. ENT: Mucous membranes pink but dry and cracked in nature. LUNGS: Airway patent. No retractions. Breath sounds faint and diminished HEART: Regular rate and rhythm. No chest wall tenderness ABDOMEN: Soft and non-tender, without guarding or rebound. Ferris catheter in place and soiled/defecated depends. Erythema to the glans of the penis is noted with some edema. Some excoriation of the inguinal region with healing sacral decubitus ulceration. SKIN: Patient with decreased capillary perfusion. DuoDERM over a left hip ulcer approximately 3 cm in size. There is a small approximately 2 cm size stage II decubitus ulcer on the left shoulder. EXTREMITIES: Some decreased capillary refill. No large wounds to the extremities noted. No significant edema with some skin tenting noted. NEUROLOGICAL: Withdraws to pain. Not following commands. Not making eye contac t. EK bpm atrially paced rhythm with PACs. No acute ST segment elevation with anterior T wave inversions noted. Right bundle branch block noted. CONTINUOUS CARDIAC MONITORING: was ordered and showed a heart rate of 70s-100s bpm in Atrially paced rhythm with PACs Patient's laboratory studies and imaging reviewed. Differential includes Infection, dehydration, metabolic abnormality, hypo/hyp erglycemia, electrolyte disturbance, anemia, hypoxia, cardiac sources, neurologic, as well as other pathologies. ED Intubation performed by myself Indication altered mental status, airway protection, hypoxic respiratory failure The patient was on 96+% oxygen via NRB prior to the procedure. Suction, airway equipment, RSI drugs, respiratory equipment, and appropriate personnel were prepared prior to the initiation of the procedure. A time out was taken. Induction was performed with 100 mg of ketamine and 50 mg of rocuronium. After observing the clinical benefit of the medications, the airway was easily visualized utilizing a glide scope 3. A 7.0 size ETT tube was placed atraumatically to 25 cm using standard technique. The cuff inflated without signs of malfunction. There were bilateral breath sounds, positive colormetric change, no gastric sounds, a good capnography waveform, and post procedure pulse oximetry was 89%. Post intubation sedation and paralysis was administered using fentanyl. Significant weight and dry oropharyngeal and pharyngeal secretions were noted. Required increased PEEP and O2 for saturations. ET tube back to 24 cm based on chest x-ray IMPRESSION/MEDICAL DECISION MAKING: Patient responsive with decreased intake for several days. Recent mission for urosepsis. Hypotensive and hypoxic here. Placed on nonrebreather. 2 large- bore IVs placed and IV fluid bolus was ordered. Started on Levophed given his low blood pressure. Minimal gag and not responding to commands. Oral mucosa very dry. Lactate minimally elevated 2.8 but significantly was a dose of 26. Extensive discussion shortly after arrival with the patient's via phone who is out of the country in [facility]. Discussed with her the seriousness of his illness. Discussed he is in her wishes regarding his care. Discussed limiting care to possibly fluids antibiotics and medications versus full resuscitation which includes intubation/mechanical ventilation as well as CPR. Patient's states she would feel better if she was there. Discussed with her we need to have a decision on record. He is very ill. She states she is on her way back but may not be here for a day or 2. Extensive discussion on the phone she wished for everything to be done at this time. Patient not protecting his airway. Hypoxic. Hypotensive. Discussed with her we proceed with intubation. Moved to room B1. Intubated uneventfully. Given his altered mental status and his full CODE STATUS we will complete a head CT but likely metabolic and related to sepsis with a poorly appearing Ferris upon arrival. Recent urosepsis. Empiric antibiotics ordered. Blood cultures sent. Vancomycin ordered given his critical sepsis and illness. Ferris changed. Attempted OG placement but unsuccessful, attempts terminated. Labs consistent with dehydration with hypernatremia and acute kidney injury. Troponin elevation 478 but seems to be near his chronic baseline in the 400s based on December labs here. Chest x-ray questions pneumonia. Limited urine output. Negative respiratory viral panel. Discussed with the hospitalist team. They had further discussion with and confirmed no CPR status. Still on a good amount of Levophed but blood pressure somewhat labral. Again utilizing Versed and fentanyl as needed's for comfort/sedation. DIAGNOSIS: Hypoxic respiratory failure, sepsis, altered mental status, dehydration, acute kidney injury/dehydration/acute renal failure, hypernatremia DISPOSITION: Hospitalist will evaluate and continue further discussions with /family. Critical Care I have personally spent 85 minutes of critical care time in the direct manag ement of this patient. This includes bedside care, interpretation of diagnostic studies, and testing, discussion with consultants, patient, and family members, and other required patient management activities. These 85 minutes is in excess of all separately billable procedures. Past Med/Surg History Medical History (Updated 02/03/23 @ 17:06 by Avni Candelario M.D.) Aortic aneurysm Aortic stenosis Atrial fibrillation CAD (coronary artery disease) Dementia Hemolytic anemia HLD (hyperlipidemia) HTN (hypertension) Left rib fracture correction resident Pacemaker Pacemaker battery depletion Parkinsons disease Rhabdomyolysis T12 compression fracture Surgical History H/O prosthetic heart valve History of cataract surgery right Hx of heart bypass surgery Social History Smoking Status: Unknown if ever smoked Hx Substance Use: No Preferred Language: Congolese Communication Ability: Impaired Visual Impairment: No Limitations Hearing Ability: Normal 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 General Required: No Beliefs That Will Affect Care: None marital status: Current Living Situation: Assisted Current Living Situation Comment: resident at [facility] Feels Safe at Home: Yes Assistive Devices: Walker and Wheelchair Allergies Allergies Allergy/AdvReac Type Severity Reaction Status Date / Time No Known Allergies Allergy Verified 12/19/22 11:15 Home Meds Home Medications Medication Instructions Recorded Confirmed acetaminophen 325 mg tablet 650 mg PO Q4H PRN PAIN/FEVER 09/12/22 02/03/23 (Tylenol) aspirin 81 mg tablet,delayed 81 mg PO QAM 09/12/22 02/03/23 release donepezil 5 mg tablet 5 mg PO QAM 09/12/22 02/03/23 metoprolol tartrate 25 mg tablet 25 mg PO QAM 09/12/22 02/03/23 polyethylene glycol 3350 17 gram 17 g PO QAM 09/12/22 02/03/23 oral powder packet (Miralax) Previous Rx's Medication Instructions Recorded atorvastatin 20 mg tablet (Lipitor) 20 mg PO QPM #30 tabs 09/11/21 carbidopa 25 mg-levodopa 100 mg 1 tab PO BID #60 tabs 09/11/21 tablet sennosides 8.6 mg-docusate sodium 1 tab PO QAM #30 tabs 09/11/21 50 mg tablet (Senokot-S) Results & Data (ED) Vital Signs Vital Signs - 24 hr 02/03/23 14:32 02/03/23 14:43 02/03/23 14:02 Pulse Rate 73 74 Pulse Rate [Apical] 76 Pulse Rate from SpO2 Sensor Respiratory Rate 17 18 Respiratory Effort / Characteristics Retracting Accessory Muscle Use Respiratory Depth Retractive Respiratory Pattern Regular Blood Pressure 84/66 L Blood Pressure [Right Arm] 75/62 L Blood Pressure Mean 72 Blood Pressure Mean [Right Arm] 66 Pulse Oximetry 90 87 L Oxygen Delivery Method Non-rebreather Room Air Oxygen Flow Rate 15 Fraction of Inspired Oxygen Sepsis New/Unexplained Change in Mental Status N/A Sepsis Action Taken by Nursing No Action Required End-Tidal CO2 02/03/23 15:22 02/03/23 15:10 02/03/23 15:25 Pulse Rate 84 Pulse Rate [Apical] 102 H Pulse Rate from SpO2 Sensor Respiratory Rate 20 21 Respiratory Effort / Characteristics Mechanically Ventilated Respiratory Depth Respiratory Pattern Blood Pressure Blood Pressure [Right Arm] Blood Pressure Mean Blood Pressure Mean [Right Arm] Pulse Oximetry 96 94 Oxygen Delivery Method Mechanical Vent Oxygen Flow Rate Fraction of Inspired Oxygen 50 80 80 Sepsis New/Unexplained Change in Mental Status Sepsis Action Taken by Nursing End-Tidal CO2 33 02/03/23 14:20 02/03/23 14:30 02/03/23 14:40 Pulse Rate 68 80 80 Pulse Rate [Apical] Pulse Rate from SpO2 Sensor 66 81 81 Respiratory Rate 27 H 23 30 H Respiratory Effort / Characteristics Respiratory Depth Respiratory Pattern Blood Pressure Blood Pressure [Right Arm] Blood Pressure Mean Blood Pressure Mean [Right Arm] Pulse Oximetry 87 L 93 93 Oxygen Delivery Method Oxygen Flow Rate Fraction of Inspired Oxygen Sepsis New/Unexplained Change in Mental Status Sepsis Action Taken by Nursing End-Tidal CO2 02/03/23 14:50 02/03/23 14:52 02/03/23 14:52 Pulse Rate 74 86 Pulse Rate [Apical] Pulse Rate from SpO2 Sensor Respiratory Rate 0 L 0 L Respiratory Effort / Characteristics Respiratory Depth Respiratory Pattern Blood Pressure 95/82 L Blood Pressure [Right Arm] Blood Pressure Mean 86 Blood Pressure Mean [Right Arm] Pulse Oximetry Oxygen Delivery Method Oxygen Flow Rate Fraction of Inspired Oxygen Sepsis New/Unexplained Change in Mental Status Sepsis Action Taken by Nursing End-Tidal CO2 02/03/23 14:56 02/03/23 14:56 02/03/23 15:00 Pulse Rate 95 H Pulse Rate [Apical] Pulse Rate from SpO2 Sensor 75 Respiratory Rate 0 L Respiratory Effort / Characteristics Respiratory Depth Respiratory Pattern Blood Pressure 92/64 L 104/69 Blood Pressure [Right Arm] Blood Pressure Mean 73 80 Blood Pressure Mean [Right Arm] Pulse Oximetry 97 Oxygen Delivery Method Oxygen Flow Rate Fraction of Inspired Oxygen Sepsis New/Unexplained Change in Mental Status Sepsis Action Taken by Nursing End-Tidal CO2 02/03/23 15:00 02/03/23 15:04 02/03/23 15:04 Pulse Rate 89 94 H Pulse Rate [Apical] Pulse Rate from SpO2 Sensor 70 78 Respiratory Rate 0 L 0 L Respiratory Effort / Characteristics Respiratory Depth Respiratory Pattern Blood Pressure 138/116 H Blood Pressure [Right Arm] Blood Pressure Mean 123 Blood Pressure Mean [Right Arm] Pulse Oximetry 94 98 Oxygen Delivery Method Oxygen Flow Rate Fraction of Inspired Oxygen Sepsis New/Unexplained Change in Mental Status Sepsis Action Taken by Nursing End-Tidal CO2 02/03/23 15:05 02/03/23 15:05 02/03/23 15:08 Pulse Rate 86 Pulse Rate [Apical] Pulse Rate from SpO2 Sensor 80 Respiratory Rate 0 L Respiratory Effort / Characteristics Respiratory Depth Respiratory Pattern Blood Pressure 121/88 146/79 H Blood Pressure [Right Arm] Blood Pressure Mean 99 101 Blood Pressure Mean [Right Arm] Pulse Oximetry 99 Oxygen Delivery Method Oxygen Flow Rate Fraction of Inspired Oxygen Sepsis New/Unexplained Change in Mental Status Sepsis Action Taken by Nursing End-Tidal CO2 02/03/23 15:08 02/03/23 15:08 02/03/23 15:10 Pulse Rate 102 H 82 Pulse Rate [Apical] Pulse Rate from SpO2 Sensor 95 H 82 Respiratory Rate 0 L 0 L Respiratory Effort / Characteristics Respiratory Depth Respiratory Pattern Blood Pressure 149/93 H Blood Pressure [Right Arm] Blood Pressure Mean 111 Blood Pressure Mean [Right Arm] Pulse Oximetry 98 95 Oxygen Delivery Method Oxygen Flow Rate Fraction of Inspired Oxygen Sepsis New/Unexplained Change in Mental Status Sepsis Action Taken by Nursing End-Tidal CO2 02/03/23 15:11 02/03/23 15:11 02/03/23 15:15 Pulse Rate 84 87 Pulse Rate [Apical] Pulse Rate from SpO2 Sensor 85 84 Respiratory Rate 26 H 29 H Respiratory Effort / Characteristics Respiratory Depth Respiratory Pattern Blood Pressure 165/97 H Blood Pressure [Right Arm] Blood Pressure Mean 119 Blood Pressure Mean [Right Arm] Pulse Oximetry 97 94 Oxygen Delivery Method Oxygen Flow Rate Fraction of Inspired Oxygen Sepsis New/Unexplained Change in Mental Status Sepsis Action Taken by Nursing End-Tidal CO2 02/03/23 15:15 02/03/23 15:20 02/03/23 15:20 Pulse Rate 87 Pulse Rate [Apical] Pulse Rate from SpO2 Sensor 87 Respiratory Rate 25 H Respiratory Effort / Characteristics Respiratory Depth Respiratory Pattern Blood Pressure 104/60 85/57 L Blood Pressure [Right Arm] Blood Pressure Mean 74 66 Blood Pressure Mean [Right Arm] Pulse Oximetry 88 L Oxygen Delivery Method Oxygen Flow Rate Fraction of Inspired Oxygen Sepsis New/Unexplained Change in Mental Status Sepsis Action Taken by Nursing End-Tidal CO2 02/03/23 15:23 02/03/23 15:23 02/03/23 15:30 Pulse Rate 100 H Pulse Rate [Apical] Pulse Rate from SpO2 Sensor 84 Respiratory Rate 26 H Respiratory Effort / Characteristics Respiratory Depth Respiratory Pattern Blood Pressure 81/62 L 116/69 Blood Pressure [Right Arm] Blood Pressure Mean 68 84 Blood Pressure Mean [Right Arm] Pulse Oximetry 88 L Oxygen Delivery Method Oxygen Flow Rate Fraction of Inspired Oxygen Sepsis New/Unexplained Change in Mental Status Sepsis Action Taken by Nursing End-Tidal CO2 30 02/03/23 15:30 02/03/23 15:35 02/03/23 15:35 Pulse Rate 97 H 97 H Pulse Rate [Apical] Pulse Rate from SpO2 Sensor 71 66 Respiratory Rate 41 H 37 H Respiratory Effort / Characteristics Respiratory Depth Respiratory Pattern Blood Pressure 89/66 L Blood Pressure [Right Arm] Blood Pressure Mean 73 Blood Pressure Mean [Right Arm] Pulse Oximetry 93 92 Oxygen Delivery Method Oxygen Flow Rate Fraction of Inspired Oxygen Sepsis New/Unexplained Change in Mental Status Sepsis Action Taken by Nursing End-Tidal CO2 29 23 02/03/23 15:40 02/03/23 15:40 02/03/23 15:45 Pulse Rate 94 H 90 Pulse Rate [Apical] Pulse Rate from SpO2 Sensor 84 89 Respiratory Rate 42 H 34 H Respiratory Effort / Characteristics Respiratory Depth Respiratory Pattern Blood Pressure 120/68 Blood Pressure [Right Arm] Blood Pressure Mean 85 Blood Pressure Mean [Right Arm] Pulse Oximetry 94 95 Oxygen Delivery Method Oxygen Flow Rate Fraction of Inspired Oxygen Sepsis New/Unexplained Change in Mental Status Sepsis Action Taken by Nursing End-Tidal CO2 25 29 02/03/23 15:45 02/03/23 15:50 02/03/23 15:50 Pulse Rate 84 Pulse Rate [Apical] Pulse Rate from SpO2 Sensor 83 Respiratory Rate 39 H Respiratory Effort / Characteristics Respiratory Depth Respiratory Pattern Blood Pressure 144/86 H 144/89 H Blood Pressure [Right Arm] Blood Pressure Mean 105 107 Blood Pressure Mean [Right Arm] Pulse Oximetry 95 Oxygen Delivery Method Oxygen Flow Rate Fraction of Inspired Oxygen Sepsis New/Unexplained Change in Mental Status Sepsis Action Taken by Nursing End-Tidal CO2 30 02/03/23 15:55 02/03/23 15:55 02/03/23 16:00 Pulse Rate 95 H Pulse Rate [Apical] Pulse Rate from SpO2 Sensor 85 Respiratory Rate 27 H Respiratory Effort / Characteristics Respiratory Depth Respiratory Pattern Blood Pressure 127/93 121/64 Blood Pressure [Right Arm] Blood Pressure Mean 104 83 Blood Pressure Mean [Right Arm] Pulse Oximetry 94 Oxygen Delivery Method Oxygen Flow Rate Fraction of Inspired Oxygen Sepsis New/Unexplained Change in Mental Status Sepsis Action Taken by Nursing End-Tidal CO2 30 02/03/23 16:00 02/03/23 16:05 02/03/23 16:10 Pulse Rate 87 90 Pulse Rate [Apical] Pulse Rate from SpO2 Sensor 85 82 Respiratory Rate 34 H 39 H Respiratory Effort / Characteristics Respiratory Depth Respiratory Pattern Blood Pressure 112/62 Blood Pressure [Right Arm] Blood Pressure Mean 78 Blood Pressure Mean [Right Arm] Pulse Oximetry 94 93 Oxygen Delivery Method Oxygen Flow Rate Fraction of Inspired Oxygen Sepsis New/Unexplained Change in Mental Status Sepsis Action Taken by Nursing End-Tidal CO2 29 28 02/03/23 16:10 02/03/23 16:15 02/03/23 16:15 Pulse Rate 81 81 Pulse Rate [Apical] Pulse Rate from SpO2 Sensor 80 80 Respiratory Rate 39 H 27 H Respiratory Effort / Characteristics Respiratory Depth Respiratory Pattern Blood Pressure 119/65 Blood Pressure [Right Arm] Blood Pressure Mean 83 Blood Pressure Mean [Right Arm] Pulse Oximetry 94 94 Oxygen Delivery Method Oxygen Flow Rate Fraction of Inspired Oxygen Sepsis New/Unexplained Change in Mental Status Sepsis Action Taken by Nursing End-Tidal CO2 29 32 02/03/23 16:20 02/03/23 16:20 02/03/23 16:26 Pulse Rate 86 Pulse Rate [Apical] Pulse Rate from SpO2 Sensor 83 Respiratory Rate 18 Respiratory Effort / Characteristics Respiratory Depth Respiratory Pattern Blood Pressure 147/75 H 148/85 H Blood Pressure [Right Arm] Blood Pressure Mean 99 106 Blood Pressure Mean [Right Arm] Pulse Oximetry 94 Oxygen Delivery Method Oxygen Flow Rate Fraction of Inspired Oxygen Sepsis New/Unexplained Change in Mental Status Sepsis Action Taken by Nursing End-Tidal CO2 33 02/03/23 16:26 02/03/23 16:30 02/03/23 16:30 Pulse Rate 78 91 H Pulse Rate [Apical] Pulse Rate from SpO2 Sensor 77 77 Respiratory Rate 27 H 21 Respiratory Effort / Characteristics Respiratory Depth Respiratory Pattern Blood Pressure 100/69 Blood Pressure [Right Arm] Blood Pressure Mean 79 Blood Pressure Mean [Right Arm] Pulse Oximetry 94 95 Oxygen Delivery Method Oxygen Flow Rate Fraction of Inspired Oxygen Sepsis New/Unexplained Change in Mental Status Sepsis Action Taken by Nursing End-Tidal CO2 32 32 02/03/23 16:35 02/03/23 16:35 02/03/23 16:40 Pulse Rate 77 Pulse Rate [Apical] Pulse Rate from SpO2 Sensor 82 Respiratory Rate 27 H Respiratory Effort / Characteristics Respiratory Depth Respiratory Pattern Blood Pressure 114/63 77/56 L Blood Pressure [Right Arm] Blood Pressure Mean 80 63 Blood Pressure Mean [Right Arm] Pulse Oximetry 95 Oxygen Delivery Method Oxygen Flow Rate Fraction of Inspired Oxygen Sepsis New/Unexplained Change in Mental Status Sepsis Action Taken by Nursing End-Tidal CO2 23 02/03/23 16:40 02/03/23 16:45 02/03/23 16:45 Pulse Rate 81 77 Pulse Rate [Apical] Pulse Rate from SpO2 Sensor 81 75 Respiratory Rate 24 20 Respiratory Effort / Characteristics Respiratory Depth Respiratory Pattern Blood Pressure 100/64 Blood Pressure [Right Arm] Blood Pressure Mean 76 Blood Pressure Mean [Right Arm] Pulse Oximetry 92 92 Oxygen Delivery Method Oxygen Flow Rate Fraction of Inspired Oxygen Sepsis New/Unexplained Change in Mental Status Sepsis Action Taken by Nursing End-Tidal CO2 32 31 Laboratory Data 02/03/23 14:28 02/03/23 14:28 Lab Results 02/03/23 02/03/23 02/03/23 Range/Units 14:28 14:28 14:28 WBC 26.51 H (4.8-10.8) K/ul RBC 5.36 (4.70-6.10) M/uL Hgb 16.5 (14.0-18.0) g/dl Hct 52.0 (42.0-52.0) % MCV 97.0 (80.0-100.0) fL MCH 30.8 (25.0-34.0) pg MCHC 31.7 L (32.0-36.0) g/dL RDW Std Deviation 51.4 H (36.4-46.3) fL RDW Coeff of Lacey 14.5 (11.5-14.5) % Plt Count 237 (130-400) K/uL MPV 12.3 (9.4-12.4) fL Immature Gran % (Auto) 1.1 % Neut % (Auto) 90.8 % Lymph % (Auto) 4.3 % [place] % (Auto) 3.5 % Eos % (Auto) 0.0 % Baso % (Auto) 0.3 % Neut # (Auto) 24.04 H (1.40-6.50) K/uL Lymph # (Auto) 1.15 L (1.2-3.4) K/uL [place] # (Auto) 0.93 H (0.11-0.59) K/uL Eos # (Auto) 0.00 (0-0.50) K/uL Baso # (Auto) 0.09 (0-0.2) K/uL Immature Gran # (Auto) 0.30 H (0.01-0.20) K/uL PT 14.0 H (9.0-12.0) Seconds INR 1.3 H (0.9-1.1) Sodium 164 H* (136-145) mmol/L Potassium 4.6 (3.5-5.1) mmol/L Chloride 121 H (98-107) mmol/L Carbon Dioxide 27 (21-32) mmol/L Anion Gap 16 H (3-11) BUN 119 H (6-23) mg/dl Creatinine 5.93 H* (0.6-1.4) mg/dl Est Cr Clr Drug Dosing Not Reportable Est GFR ( Amer) 9.1 ml/min Est GFR (Non-Af Amer) 7.8 ml/min BUN/Creatinine Ratio 20.1 H (10-20) Glucose 157 H (70-99(Fasting)) mg/dl Lactate (0.4-2.0) mmol/L Calcium 9.0 (8.5-10.1) mg/dl Total Bilirubin 0.6 (0.2-1.0) mg/dl AST 135 H (13-39) U/L ALT 57 H (7-52) U/L Alkaline Phosphatase 80 (34-104) U/L Troponin I High Sens 478.2 H* (0-20) pg/ml Total Protein 8.6 H (6.0-8.3) gm/dl Albumin 3.6 (3.4-5.0) gm/dl Globulin 5.0 H (2.5-4.0) gm/dl Albumin/Globulin Ratio 0.7 L (0.9-2) Lipase 21 (11-82) U/L Procalcitonin (0-0.5) ng/ml Urine Color Urine Appearance (Clear) Urine pH (4.5-7.5) Ur Specific [place] (1.000-1.030) Urine Protein (Negative) Urine Glucose (UA) (Negative) Urine Ketones (Negative) Urine Blood (Negative) Urine Nitrite (Negative) Urine Bilirubin (Negative) Urine Urobilinogen (Negative) Ur Leukocyte Esterase (Negative) Urine WBC (Auto) (0-5) /hpf Urine RBC (Auto) (0-4) /hpf U Hyaline Cast (Auto) (0-5) /lpf U Epithel Cells (Auto) (0-5) /lpf Urine Bacteria (Auto) (Negative) Urine Crystals Urine Yeast Adenovirus (PCR) (NotDetected) B. pertussis DNA (PCR) (NotDetected) B.parapertussis DNA PCR (NotDetected) C. pneumoniae DNA (PCR) (NotDetected) Coronavirus OC43 (PCR) (NotDetected) Coronavirus HKU1 (PCR) (NotDetected) Coronavirus 229E (PCR) (NotDetected) SARS-CoV-2 (PCR) (NotDetected) Coronavirus NL63 (PCR) (NotDetected) Human Metapneumovir PCR (NotDetected) Influenza Type A (PCR) (NotDetected) Influenza Type B (PCR) (NotDetected) M. pneumoniae (PCR) (NotDetected) Parainfluenza 1 (PCR) (NotDetected) Parainfluenza 2 (PCR) (NotDetected) Parainfluenza 3 (PCR) (NotDetected) Parainfluenza 4 (PCR) (NotDetected) RSV (PCR) (NotDetected) Entero/Rhino (PCR) (NotDetected) 02/03/23 02/03/23 02/03/23 Range/Units 14:28 14:28 14:30 WBC (4.8-10.8) K/ul RBC (4.70-6.10) M/uL Hgb (14.0-18.0) g/dl Hct (42.0-52.0) % MCV (80.0-100.0) fL MCH (25.0-34.0) pg MCHC (32.0-36.0) g/dL RDW Std Deviation (36.4-46.3) fL RDW Coeff of Lacey (11.5-14.5) % Plt Count (130-400) K/uL MPV (9.4-12.4) fL Immature Gran % (Auto) % Neut % (Auto) % Lymph % (Auto) % [place] % (Auto) % Eos % (Auto) % Baso % (Auto) % Neut # (Auto) (1.40-6.50) K/uL Lymph # (Auto) (1.2-3.4) K/uL [place] # (Auto) (0.11-0.59) K/uL Eos # (Auto) (0-0.50) K/uL Baso # (Auto) (0-0.2) K/uL Immature Gran # (Auto) (0.01-0.20) K/uL PT (9.0-12.0) Seconds INR (0.9-1.1) Sodium (136-145) mmol/L Potassium (3.5-5.1) mmol/L Chloride (98-107) mmol/L Carbon Dioxide (21-32) mmol/L Anion Gap (3-11) BUN (6-23) mg/dl Creatinine (0.6-1.4) mg/dl Est Cr Clr Drug Dosing Est GFR ( Amer) ml/min Est GFR (Non-Af Amer) ml/min BUN/Creatinine Ratio (10-20) Glucose (70-99(Fasting)) mg/dl Lactate 2.8 H* (0.4-2.0) mmol/L Calcium (8.5-10.1) mg/dl Total Bilirubin (0.2-1.0) mg/dl AST (13-39) U/L ALT (7-52) U/L Alkaline Phosphatase (34-104) U/L Troponin I High Sens (0-20) pg/ml Total Protein (6.0-8.3) gm/dl Albumin (3.4-5.0) gm/dl Globulin (2.5-4.0) gm/dl Albumin/Globulin Ratio (0.9-2) Lipase (11-82) U/L Procalcitonin 9.05 H (0-0.5) ng/ml Urine Color Urine Appearance (Clear) Urine pH (4.5-7.5) Ur Specific [place] (1.000-1.030) Urine Protein (Negative) Urine Glucose (UA) (Negative) Urine Ketones (Negative) Urine Blood (Negative) Urine Nitrite (Negative) Urine Bilirubin (Negative) Urine Urobilinogen (Negative) Ur Leukocyte Esterase (Negative) Urine WBC (Auto) (0-5) /hpf Urine RBC (Auto) (0-4) /hpf U Hyaline Cast (Auto) (0-5) /lpf U Epithel Cells (Auto) (0-5) /lpf Urine Bacteria (Auto) (Negative) Urine Crystals Urine Yeast Adenovirus (PCR) Not Detected (NotDetected) B. pertussis DNA (PCR) Not Detected (NotDetected) B.parapertussis DNA PCR Not Detected (NotDetected) C. pneumoniae DNA (PCR) Not Detected (NotDetected) Coronavirus OC43 (PCR) Not Detected (NotDetected) Coronavirus HKU1 (PCR) Not Detected (NotDetected) Coronavirus 229E (PCR) Not Detected (NotDetected) SARS-CoV-2 (PCR) Not Detected (NotDetected) Coronavirus NL63 (PCR) Not Detected (NotDetected) Human Metapneumovir PCR Not Detected (NotDetected) Influenza Type A (PCR) Not Detected (NotDetected) Influenza Type B (PCR) Not Detected (NotDetected) M. pneumoniae (PCR) Not Detected (NotDetected) Parainfluenza 1 (PCR) Not Detected (NotDetected) Parainfluenza 2 (PCR) Not Detected (NotDetected) Parainfluenza 3 (PCR) Not Detected (NotDetected) Parainfluenza 4 (PCR) Not Detected (NotDetected) RSV (PCR) Not Detected (NotDetected) Entero/Rhino (PCR) Not Detected (NotDetected) 02/03/23 Range/Units 16:12 WBC (4.8-10.8) K/ul RBC (4.70-6.10) M/uL Hgb (14.0-18.0) g/dl Hct (42.0-52.0) % MCV (80.0-100.0) fL MCH (25.0-34.0) pg MCHC (32.0-36.0) g/dL RDW Std Deviation (36.4-46.3) fL RDW Coeff of Lacey (11.5-14.5) % Plt Count (130-400) K/uL MPV (9.4-12.4) fL Immature Gran % (Auto) % Neut % (Auto) % Lymph % (Auto) % [place] % (Auto) % Eos % (Auto) % Baso % (Auto) % Neut # (Auto) (1.40-6.50) K/uL Lymph # (Auto) (1.2-3.4) K/uL [place] # (Auto) (0.11-0.59) K/uL Eos # (Auto) (0-0.50) K/uL Baso # (Auto) (0-0.2) K/uL Immature Gran # (Auto) (0.01-0.20) K/uL PT (9.0-12.0) Seconds INR (0.9-1.1) Sodium (136-145) mmol/L Potassium (3.5-5.1) mmol/L Chloride (98-107) mmol/L Carbon Dioxide (21-32) mmol/L Anion Gap (3-11) BUN (6-23) mg/dl Creatinine (0.6-1.4) mg/dl Est Cr Clr Drug Dosing Est GFR ( Amer) ml/min Est GFR (Non-Af Amer) ml/min BUN/Creatinine Ratio (10-20) Glucose (70-99(Fasting)) mg/dl Lactate (0.4-2.0) mmol/L Calcium (8.5-10.1) mg/dl Total Bilirubin (0.2-1.0) mg/dl AST (13-39) U/L ALT (7-52) U/L Alkaline Phosphatase (34-104) U/L Troponin I High Sens (0-20) pg/ml Total Protein (6.0-8.3) gm/dl Albumin (3.4-5.0) gm/dl Globulin (2.5-4.0) gm/dl Albumin/Globulin Ratio (0.9-2) Lipase (11-82) U/L Procalcitonin (0-0.5) ng/ml Urine Color Dark Yellow Urine Appearance Turbid A (Clear) Urine pH 7.0 (4.5-7.5) Ur Specific [place] 1.022 (1.000-1.030) Urine Protein 3+ H (Negative) Urine Glucose (UA) Negative (Negative) Urine Ketones Trace H (Negative) Urine Blood 3+ H (Negative) Urine Nitrite Positive A (Negative) Urine Bilirubin 1+ H (Negative) Urine Urobilinogen Negative (Negative) Ur Leukocyte Esterase 3+ H (Negative) Urine WBC (Auto) >30 H (0-5) /hpf Urine RBC (Auto) 10-30 H (0-4) /hpf U Hyaline Cast (Auto) 0 (0-5) /lpf U Epithel Cells (Auto) >30 H (0-5) /lpf Urine Bacteria (Auto) 4+ H (Negative) Urine Crystals Not Reportable Urine Yeast Not Reportable Adenovirus (PCR) (NotDetected) B. pertussis DNA (PCR) (NotDetected) B.parapertussis DNA PCR (NotDetected) C. pneumoniae DNA (PCR) (NotDetected) Coronavirus OC43 (PCR) (NotDetected) Coronavirus HKU1 (PCR) (NotDetected) Coronavirus 229E (PCR) (NotDetected) SARS-CoV-2 (PCR) (NotDetected) Coronavirus NL63 (PCR) (NotDetected) Human Metapneumovir PCR (NotDetected) Influenza Type A (PCR) (NotDetected) Influenza Type B (PCR) (NotDetected) M. pneumoniae (PCR) (NotDetected) Parainfluenza 1 (PCR) (NotDetected) Parainfluenza 2 (PCR) (NotDetected) Parainfluenza 3 (PCR) (NotDetected) Parainfluenza 4 (PCR) (NotDetected) RSV (PCR) (NotDetected) Entero/Rhino (PCR) (NotDetected) Administered Medications Norepinephrine Bitartrate (Levophed/D5w) 4 mg in 250 mls @ 13.313 mls/hr IV .[id number] [facility]; Protocol Stop: 03/05/23 14:44 Last Titration: 02/03/23 15:21 Dose: 0.22 mcg/kg/min, 58.6 mls/hr Documented By: Titration: 02/03/23 14:56 Dose: 0.2 mcg/kg/min, 53.3 mls/hr Documented By: Titration: 02/03/23 14:45 Dose: 0.1 mcg/kg/min, 26.6 mls/hr Documented By: Titration: 02/03/23 14:42 Dose: 0.07 mcg/kg/min, 18.6 mls/hr Documented By: Admin: 02/03/23 14:34 Dose: 0.05 mcg/kg/min, 13.3 mls/hr Documented By: BELEN Co-signed By: IHSAN Vancomycin HCl 1,250 mg/ (Sodium Chloride) 525 mls @ 200 mls/hr IV NOW ONE Stop: 02/03/23 17:51 Last Admin: 02/03/23 16:27 Dose: 200 mls/hr Documented By: AM Discontinued Medications Epinephrine HCl (Epinephrine 1.5" Ndl 0.1 Mg/Ml Syr) Confirm Administered Dose 1 mg IV .STK-MED ONE Stop: 02/03/23 14:58 Last Admin: 02/03/23 16:08 Dose: Not Given Documented By: AM Fentanyl Citrate (Fentanyl Citrate 100 Mcg/2 Ml Vial) 100 mcg IV NOW STA Stop: 02/03/23 15:19 Last Admin: 02/03/23 15:53 Dose: 100 mcg Documented By: AM Fentanyl Citrate (Fentanyl Citrate 100 Mcg/2 Ml Vial) 100 mcg IV NOW STA Stop: 02/03/23 16:16 Last Admin: 02/03/23 16:38 Dose: 100 mcg Documented By: AM Sodium Chloride (Nss 1000ml) 1,000 mls @ 999 mls/hr IV .Q1H1M ONE Stop: 02/03/23 15:21 Last Infusion: 02/03/23 15:50 Dose: 0 mls/hr Documented By: Admin: 02/03/23 14:45 Dose: 999 mls/hr Documented By: BELEN Lactated Ringer's (Lr) 1,000 mls @ 999 mls/hr IV .Q1H1M ONE Stop: 02/03/23 15:21 Last Infusion: 02/03/23 16:00 Dose: 0 mls/hr Documented By: Admin: 02/03/23 14:50 Dose: 999 mls/hr Documented By: IHSAN Piperacillin Sod/Tazobactam Sod (Zosyn) 4.5 gm in 120 mls @ 240 mls/hr IV NOW ONE Stop: 02/03/23 14:50 Last Infusion: 02/03/23 16:28 Dose: 0 mls/hr Documented By: Admin: 02/03/23 15:43 Dose: 240 mls/hr Documented By: MARGO Lactated Ringer's (Lr) 1,000 mls @ 999 mls/hr IV .Q1H1M ONE Stop: 02/03/23 16:14 Last Admin: 02/03/23 16:09 Dose: 999 mls/hr Documented By: AM Midazolam HCl (Midazolam Hcl 1 Mg/Ml 2ml Vial) 1 mg IV NOW STA Stop: 02/03/23 16:16 Last Admin: 02/03/23 16:22 Dose: 1 mg Documented By: AM Midazolam HCl (Midazolam Hcl 1 Mg/Ml 2ml Vial) 1 mg IV NOW STA Stop: 02/03/23 16:30 Last Admin: 02/03/23 16:36 Dose: 1 mg Documented By: AM Miscellaneous (Rapid Sequence Induction Bag) Confirm Administered Dose 1 each N/A .STK-MED ONE Stop: 02/03/23 14:46 Last Admin: 02/03/23 16:08 Dose: Not Given Documented By: AM Norepinephrine Bitartrate (Norepinephrine/D5w 4 Mg/250 Ml) Confirm Administered Dose 4 mg IV .STK-MED ONE Stop: 02/03/23 14:31 Last Admin: 02/03/23 14:41 Dose: Not Given Documented By: ROBERTOS Imaging Data Radiologist's Impression: Chest X-Ray 02/03/23 15:13 XR chest 1V not portable HISTORY: Respiratory illness, no prior imaging COMPARISON: Chest 12/19/2022. FINDINGS: Endotracheal tube terminates approximately 1.7 cm from the víctor. Left dual-chamber pacemaker is noted. There are poststernotomy changes. No pneumothorax. No pleural effusions. The cardiac silhouette is mildly enlarged. This remains unchanged. The right lung is clear. There is a new patchy left base airspace opacity. No evidence for pulmonary edema. Slightly rotated study. IMPRESSION: 1. Endotracheal tube terminates 1.7 cm and the víctor. 2. There is new left basilar density which may represent a developing pneumonia. ACT 112: Negative or not required by law. Electronically signed by: Wellington Garcia M.D. 02/03/2023 3:39 PM Discharge Plan Visit Data Chief Complaint: Illness Stated Complaint: ILLNESS ED Provider: Avni Candelario Discharge Problem: Acute dehydration, Elevated troponin, Hypoxemia, Acute UTI (urinary tract infection), Sepsis, AMS (altered mental status), Acute hypernatremia, Acute renal failure (ARF) Patient Disposition: Being Evaluated by Hospitalist Forms Stand Alone Forms: [facility] [employer] Prescriptions Prescriptions: No Action sennosides-docusate sodium [Senokot-S] 8.6-50 mg Tablet 1 tab PO QAM Qty: 30 0RF Rx Instructions: hold for loose stool atorvastatin [Lipitor] 20 mg tablet 20 mg PO QPM Qty: 30 0RF carbidopa-levodopa 25-100 mg tablet 1 tab PO BID Qty: 60 0RF acetaminophen [Tylenol] 325 mg Tablet 650 mg PO Q4H PRN (Reason: PAIN/FEVER) donepezil 5 mg tablet 5 mg PO QAM polyethylene glycol 3350 [Miralax] 17 gram powder in packet 17 g PO QAM Rx Instructions: hold for loose stool aspirin 81 mg tablet,delayed release (DR/EC) 81 mg PO QAM metoprolol tartrate 25 mg tablet 25 mg PO QAM Referrals Referrals: [facility] [Primary Care Provider] -
[2023-02-03 15:13] LABS: Basophils # (auto) 0.09 K/uL (0-0.2); Basophils % (auto) 0.3 %; INR 1.3 (0.9-1.1); Immature Granulocytes % (auto) 1.1 %; Lymphocytes # (auto) 1.15 K/uL (1.2-3.4); Lymphocytes % (auto) 4.3 %; Monocytes # (auto) 0.93 K/uL (0.11-0.59); Monocytes % (auto) 3.5 %; Neutrophils # (auto) 24.04 K/uL (1.40-6.50); Neutrophils % (auto) 90.8 %
[2023-02-03] MEDS ORDERED: VANCOMYCIN HCL 1,250 MG in SODIUM CHLORIDE 0.9% 500 ML IV ONE (15:14)
[2023-02-03] MEDS ORDERED: VANCOMYCIN CONSULT ACTIVE PRN (15:14)
[2023-02-03] MEDS ORDERED: fentaNYL citrate PF 100 MCG/2 ML VIAL IV STA ×2 (15:18→16:15)
[2023-02-03 15:29] LABS: Alanine Aminotransferase 57 U/L (7-52); Albumin Globulin Ratio 0.7 (0.9-2); Albumin Level 3.6 gm/dl (3.4-5.0); Alkaline Phosphatase 80 U/L (34-104); Anion Gap 16 (3-11); Aspartate Aminotransferase 135 U/L (13-39); BUN Creatinine Ratio 20.1 (10-20); Bilirubin,Total 0.6 mg/dl (0.2-1.0); Blood Urea Nitrogen 119 mg/dl (6-23); Carbon Dioxide 27 mmol/L (21-32); Chloride 121 mmol/L (98-107); Est GFR (African American) 9.1 ml/min; Est GFR (Non-African American) 7.8 ml/min; Glucose 157 mg/dl (70-99(Fasting)); Lipase 21 U/L (11-82); Potassium 4.6 mmol/L (3.5-5.1); Sodium 164 mmol/L (136-145); Total Protein 8.6 gm/dl (6.0-8.3); Troponin I High Sensitivity 478.2 pg/ml (0-20)
--- NOTE | 2023-02-03 15:40 | XRay Report ---
XR chest 1V not portable HISTORY: Respiratory illness, no prior imaging COMPARISON: Chest 12/19/2022. FINDINGS: Endotracheal tube terminates approximately 1.7 cm from the víctor. Left dual-chamber pacema ker is noted. There are poststernotomy changes. No pneumothorax. No pleural effusions. The cardiac si lhouette is mildly enlarged. This remains unchanged. The right lung is clear. There is a new patchy l eft base airspace opacity. No evidence for pulmonary edema. Slightly rotated study. IMPRESSION: 1. Endotracheal tube terminates 1.7 cm and the víctor. 2. There is new left basilar density which may represent a developing pneumonia. ACT 112: Negative or not required by law. Electronically signed by: Wellington Garcia M.D. 02/03/2023 3:39 PM
[2023-02-03] MEDS ORDERED: ONDANSETRON INJ 2 MG/ML 2 ML VIAL IV PRN (15:44)
[2023-02-03] MEDS ORDERED: MAGNESIUM HYDROXIDE SUSP 30 ML UDC PO PRN (15:44)
[2023-02-03] MEDS ORDERED: ALUMINUM/MAGNESIUM SUSP 30 ML UDC PO PRN (15:44)
[2023-02-03] MEDS ORDERED: POLYETHYLENE (MIRALAX) 17 GM PACK PO PRN (15:44)
[2023-02-03] MEDS ORDERED: ACETAMINOPHEN 325 MG TAB PO PRN (15:44)
[2023-02-03 16:13] LABS: Adenovirus PCR Not Detected (NotDetected); Bordetella parapertussis PCR Not Detected (NotDetected); Bordetella pertussis PCR Not Detected (NotDetected); Chlamydia pneumoniae PCR Not Detected (NotDetected); Coronavirus 229E PCR Not Detected (NotDetected); Coronavirus CoV-2 (COVID19)PCR Not Detected (NotDetected); Coronavirus HKU1 PCR Not Detected (NotDetected); Coronavirus NL63 PCR Not Detected (NotDetected); Coronavirus OC43PCR Not Detected (NotDetected); Human Metapneumovirus PCR Not Detected (NotDetected); Influenza A PCR Not Detected (NotDetected); Influenza B PCR Not Detected (NotDetected); Mycoplasma pneumoniae PCR Not Detected (NotDetected); Parainfluenza Virus 1 PCR Not Detected (NotDetected); Parainfluenza Virus 2 PCR Not Detected (NotDetected); Parainfluenza Virus 3 PCR Not Detected (NotDetected); Parainfluenza Virus 4 PCR Not Detected (NotDetected); Respiratory Syncytial VirusPCR Not Detected (NotDetected); Rhinovirus/Enterovirus PCR Not Detected (NotDetected)
[2023-02-03] MEDS ORDERED: MIDAZOLAM HCL 1 MG/ML 2ML VIAL IV STA ×2 (16:15→16:29)
[2023-02-03 16:30] LABS: Appearance Urine Turbid (Clear); Bacteria Urine Automated 4+ (Negative); Blood Urine 3+ (Negative); Color Urine Dark Yellow; Epithelial Cell Urine Auto >30 /lpf (0-5); Glucose Urine UA Negative (Negative); Ketones Urine Trace (Negative); Leukocyte Esterase Urine 3+ (Negative); Nitrite Urine Positive (Negative); Protein Urine 3+ (Negative); Specific Gravity Urine 1.022 (1.000-1.030); Urobilinogen Urine Negative (Negative); WBC Urine Automated >30 /hpf (0-5)
[2023-02-03] MEDS ORDERED: PLASMA-LYTE A 1,000 ML IV SCH (16:45)
--- NOTE | 2023-02-03 16:48 | History & Physical Report ---
Date of Service February 03, 2023 Assessment & Plan (1) Septic shock: (2) Acute hypernatremia: (3) Acute renal failure (ARF): (4) Goals of care, counseling/discussion: Plan 87 y/o male from [facility] with septic shock and actively dying. Revoked hospice for ED admission per request who is traveling in [facility]. Pt intubated. confirmed NO CPR, defibrillation, cardioversion in the event of cardia arrest. Continue pressors with hope of arriving from [place] on Saturday at 4PM. Grave prognosis. Septic Shock: Recent month long admission with urosepsis; was recently on Hospice until today. WBC 26.51; started on Zosyn and Vancomycin Lactate: 2.8; will trend Intubated in ED for airway protection; FiO2 75%, PEEP 7. Troponin level 400's; appears to be his baseline; no overt intervention would be beneficial Blood cultures pending I set clear expectations to that he is dying and that CPR or overt aggressive measures would not save him. Now conditional code in case of decline. Ok for continuation of vent and pressors for now. Acute Hypernatremia: Na+ 164; ICU will manage as transferred. Acute Renal Failure: Creatinine 5.93; confirmed with patient , no dialysis Goals of care: Lengthy conversation held with the patients Audelia on the phone while she is in [facility]. Significant time spent discussing goals of care and how she must feel not being at his side knowing that he is actively dying. I did express that while we can continue to perform active treatment measures in the event of further decline or his heart stopping or going into a life-threatening rhythm, CPR, cardioversion or defibrillation would not lead to any meaningful recovery. Discussed that in the event his heart would stop we would transition our focus to a more comfort approach allowing him to with dignity and comfort. She was amenable to a transition to conditional code with continuation of mechanical ventilation and inotropic vasoactive medications. Patient agreeable that she would not want him to pursue hemodialysis. Expressed that he is actively dying, for which she understands. Martin ROSARIO ordered Palliative Medicine to assist with continuation of goals as necessary. Disposition: PCP: Gely Melissa Code Status: Conditional Code VTE prophylaxis: TEDs and SCDs for now I spent a total of 88 minutes coordinating, documenting, and providing care for this patient excluding time spent in the performance of separately billed services. All of the aforementioned completed while collaborating with the assigned attending physician for a full treatment plan. Please see their addendum for further details. History of Present Illness Chief Complaint: unresponsiveness Primary Care Provider: [facility] Mr. Saez is an 87-year-old male that presents to the ED today after being found unresponsive and hypoxic without any PO intake over numerous days and presenting with severe septic shock presenation. Patient is reportedly a hospice patient and resides at [facility]. Patient underwent a recent admission from December 19 through January 11 overtly for treatment for urosepsis. Patient's is reportedly in [place] for the past 3 to 4 weeks and revoked hospice services for him to come to the ED for aggressive treatment until she arrived back in the [place]. Upon arrival to the , he was unresponsive, hypotensive with BPs low 70s and hypoxic with SPO2 in the 70s. He was intubated in the emergency room for airway protection and placed on Levophed for inotropic support. WBC 26.51, Na+ 164, Creatinine 5.93, Lactate 2.8 Vent FiO2 75% PEEP 7. I set clear expectations to that he is dying and that CPR or overt aggressive measures would not save him. Now conditional code in case of decline. Ok for continuation of vent and pressors for now. Troponin in the 400s which appears to be his baseline. PMH of CAD s/p CABG/stenting, TIA, aortic stenosis s/p bioprosthetic AVR, TAA status post surgery, PFO, SSS sp PPM not on anticoagulation secondary to bleeding, HTN, TIA, Parkinson's disease/Lewy body dementia, chronic anemia (baseline hemoglobin 11-12 ), hemolytic anemia, dysphagia, esophageal dysmotility. Lengthy conversation held with the patients , Audelia. Significant time spent discussing goals of care and how she must feel not being at his side knowing that he is actively dying. I did express that while we can continue to perform active treatment measures in the event of further decline or his heart stopping or going into a life-threatening rhythm, CPR, cardioversion or defibrillation would not prolong his life or lead to meaningful recovery. Discussed that in the event his heart would stop we would transition our focus to a more comfort approach allowing him to with dignity and comfort. She was amenable to a transition to conditional code with continuation of mechanical ventilation and inotropic vasoactive medications. Patient agreeable that she would not want him to pursue hemodialysis. Expressed that he is actively dying, for which she understands. Patient planning to be in [place] around 4:30 PM tomorrow, Sunday 02/04. Patient will be admitted for further evaluation and management. Please see A/P for further details. Allergies Allergy/AdvReac Type Severity Reaction Status Date / Time No Known Allergies Allergy Verified 12/19/22 11:15 Home Medications Medication Instructions Recorded Confirmed Type atorvastatin 20 mg tablet (Lipitor) 20 mg PO QPM #30 tabs 09/11/21 02/03/23 Rx carbidopa 25 mg-levodopa 100 mg 1 tab PO BID #60 tabs 09/11/21 02/03/23 Rx tablet sennosides 8.6 mg-docusate sodium 1 tab PO QAM #30 tabs 09/11/21 02/03/23 Rx 50 mg tablet (Senokot-S) acetaminophen 325 mg tablet 650 mg PO Q4H PRN PAIN/FEVER 09/12/22 02/03/23 History (Tylenol) aspirin 81 mg tablet,delayed 81 mg PO QAM 09/12/22 02/03/23 History release donepezil 5 mg tablet 5 mg PO QAM 09/12/22 02/03/23 History metoprolol tartrate 25 mg tablet 25 mg PO QAM 09/12/22 02/03/23 History polyethylene glycol 3350 17 gram 17 g PO QAM 09/12/22 02/03/23 History oral powder packet (Miralax) Past Med/Surg History Medical History (Updated 02/03/23 @ 18:40 by LORENA Isaac) Aortic aneurysm Aortic stenosis Atrial fibrillation CAD (coronary artery disease) Dementia Goals of care, counseling/discussion Hemolytic anemia HLD (hyperlipidemia) HTN (hypertension) Left rib fracture [facility] Pacemaker Pacemaker battery depletion Parkinsons disease Rhabdomyolysis Septic shock T12 compression fracture Surgical History H/O prosthetic heart valve History of cataract surgery right Hx of heart bypass surgery Social History Smoking Status: Unknown if ever smoked Hx Substance Use: No Preferred Language: Urdu Communication Ability: Effective Visual Impairment: No Limitations Hearing Ability: Normal Ampoule Sealer Required: No Beliefs That Will Affect Care: None marital status: Current Living Situation: Jail Current Living Situation Comment: resident at [facility] Feels Safe at Home: Declines to Answer Assistive Devices: Wheelchair Review of Systems Review of Systems: Unobtainable due to endotracheal tube Physical Exam Physical Exam: Neuro: intubated, PERRLA. HEENT: head normocephalic, moist mucus membranes CV: S1/S2, (-) M/G/R, (-) edema, Decreased capillary refill Resp: Lungs CTA in all saldana. Intubated #7.0m 26 cm @ lip. FiO2 75%, PEEP 7. GI: Abdomen S/NT/ND, Ax4 bowel sounds, (-) CVA tenderness Musculoskeletal: 5/5 B/L UE strength, 5/5 B/L LE strength. No gait disturbance Skin: L hip ulcer 3 cm, L shoulder stage II pressure ulcer Psych: euthymic mood Results & Data Results & Data Vital Signs (Past 12 Hours) Vital Signs Pulse Pulse Resp BP BP Pulse Ox O2 Del Method 02/03/23 16:40 81 24 92 02/03/23 16:40 77/56 L 02/03/23 16:35 77 27 H 95 02/03/23 16:35 114/63 02/03/23 16:30 91 H 21 95 02/03/23 16:30 100/69 02/03/23 16:26 78 27 H 94 02/03/23 16:26 148/85 H 02/03/23 16:20 86 18 94 02/03/23 16:20 147/75 H 02/03/23 16:15 81 27 H 94 02/03/23 16:15 119/65 02/03/23 16:10 81 39 H 94 02/03/23 16:10 112/62 02/03/23 16:05 90 39 H 93 02/03/23 16:00 87 34 H 94 02/03/23 16:00 121/64 02/03/23 15:55 127/93 02/03/23 15:55 95 H 27 H 94 02/03/23 15:50 84 39 H 95 02/03/23 15:50 144/89 H 02/03/23 15:45 144/86 H 02/03/23 15:45 90 34 H 95 02/03/23 15:40 94 H 42 H 94 02/03/23 15:40 120/68 02/03/23 15:35 89/66 L 02/03/23 15:35 97 H 37 H 92 02/03/23 15:30 97 H 41 H 93 02/03/23 15:30 116/69 02/03/23 15:23 100 H 26 H 88 L 02/03/23 15:23 81/62 L 02/03/23 15:20 87 25 H 88 L 02/03/23 15:20 85/57 L 02/03/23 15:15 104/60 02/03/23 15:15 87 29 H 94 02/03/23 15:11 84 26 H 97 02/03/23 15:11 165/97 H 02/03/23 15:10 82 0 L 95 02/03/23 15:08 149/93 H 02/03/23 15:08 102 H 0 L 98 02/03/23 15:08 146/79 H 02/03/23 15:05 86 0 L 99 02/03/23 15:05 121/88 02/03/23 15:04 94 H 0 L 98 02/03/23 15:04 138/116 H 02/03/23 15:00 89 0 L 94 02/03/23 15:00 104/69 02/03/23 14:56 95 H 0 L 97 02/03/23 14:56 92/64 L 02/03/23 14:52 86 0 L 02/03/23 14:52 95/82 L 02/03/23 14:50 74 0 L 02/03/23 14:40 80 30 H 93 02/03/23 14:30 80 23 93 02/03/23 14:20 68 27 H 87 L 02/03/23 15:25 02/03/23 15:10 102 H 21 94 Mechanical Vent 02/03/23 15:22 84 20 96 02/03/23 14:02 74 18 84/66 L 87 L Room Air 02/03/23 14:43 76 17 75/62 L 90 Non-rebreather 02/03/23 14:32 73 O2 Flow Rate FiO2 02/03/23 16:40 02/03/23 16:40 03/19/23 16:35 02/03/23 16:35 02/03/23 16:30 02/03/23 16:30 02/03/23 16:26 02/03/23 16:26 02/03/23 16:20 02/03/23 16:20 02/03/23 16:15 02/03/23 16:15 02/03/23 16:10 02/03/23 16:10 02/03/23 16:05 02/03/23 16:00 02/03/23 16:00 02/03/23 15:55 02/03/23 15:55 02/03/23 15:50 02/03/23 15:50 02/03/23 15:45 02/03/23 15:45 02/03/23 15:40 02/03/23 15:40 02/03/23 15:35 02/03/23 15:35 02/03/23 15:30 02/03/23 15:30 02/03/23 15:23 02/03/23 15:23 02/03/23 15:20 02/03/23 15:20 02/03/23 15:15 02/03/23 15:15 02/03/23 15:11 02/03/23 15:11 02/03/23 15:10 02/03/23 15:08 02/03/23 15:08 02/03/23 15:08 02/03/23 15:05 02/03/23 15:05 02/03/23 15:04 02/03/23 15:04 02/03/23 15:00 02/03/23 15:00 02/03/23 14:56 02/03/23 14:56 02/03/23 14:52 02/03/23 14:52 02/03/23 14:50 02/03/23 14:40 02/03/23 14:30 02/03/23 14:20 02/03/23 15:25 80 02/03/23 15:10 80 02/03/23 15:22 50 02/03/23 14:02 02/03/23 14:43 15 02/03/23 14:32 Laboratory Results Short CBC 02/03/23 Range/Units 14:28 WBC 26.51 H (4.8-10.8) K/ul Hgb 16.5 (14.0-18.0) g/dl Hct 52.0 (42.0-52.0) % Plt Count 237 (130-400) K/uL BMP 02/03/23 14:28 Sodium 164 H* Potassium 4.6 Chloride 121 H Carbon Dioxide 27 BUN 119 H Creatinine 5.93 H* Glucose 157 H Calcium 9.0 Liver Function 02/03/23 Range/Units 14:28 Total Bilirubin 0.6 (0.2-1.0) mg/dl AST 135 H (13-39) U/L ALT 57 H (7-52) U/L Alkaline Phosphatase 80 (34-104) U/L Albumin 3.6 (3.4-5.0) gm/dl Urine 02/03/23 Range/Units 16:12 Urine Color Dark Yellow Urine Appearance Turbid A (Clear) Urine pH 7.0 (4.5-7.5) Ur Specific [place] 1.022 (1.000-1.030) Urine Protein 3+ H (Negative) Urine Glucose (UA) Negative (Negative) Diagnostic Findings Head CT 02/03/23 14:[address] DOSE: 884.08 mGy.cm HISTORY: Altered mental status. TECHNIQUE: Multiaxial CT images of the head were performed without the use of intravenous contrast. Automated exposure control was utilized for this study. A dose lowering technique was utilized adhering to the principles of ALARA. Comparison: None. Findings: The paranasal sinuses and mastoid air cells are clear. The calvarium and skull base are intact. There is no mass, hematoma, midline shift, acute infarct. White matter hypodensity is nonspecific but suggestive of microvascular ischemic change. The ventricles and sulci demonstrate mild age-related involutional changes. 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 Impression: No significant change compared to the prior study. No acute intracranial abnormality. ACT 112: Negative or not required by law. Electronically signed by: Wellington Garcia M.D. 02/03/2023 5:18 PM Chest X-Ray 02/03/23 15:13 XR chest 1V not portable HISTORY: Respiratory illness, no prior imaging COMPARISON: Chest 12/19/2022. FINDINGS: Endotracheal tube terminates approximately 1.7 cm from the víctor. Left dual-chamber pacemaker is noted. There are poststernotomy changes. No pneumothorax. No pleural effusions. The cardiac silhouette is mildly enlarged. This remains unchanged. The right lung is clear. There is a new patchy left base airspace opacity. No evidence for pulmonary edema. Slightly rotated study. IMPRESSION: 1. Endotracheal tube terminates 1.7 cm and the víctor. 2. There is new left basilar density which may represent a developing pneumonia. ACT 112: Negative or not required by law. Electronically signed by: Wellington Garcia M.D. 02/03/2023 3:39 PM Code Status & VTE Plan Code Status Conditional code with no CPR, defibrillation, or cardioversion VTE Prophylaxis Plan VTE Prophylaxis will be ordered: Yes Supervising Physician Co-Signing Physician Notes 87 yo M w/ PMH of CAD s/p CABG/stenting, TIA, aortic stenosis s/p bioprosthetic AVR, TAA status post surgery, PFO, SSS sp PPM not on anticoagulation secondary to bleeding, HTN, TIA, Parkinson's disease/Lewy body dementia, chronic anemia (baseline hemoglobin 11-12 ), hemolytic anemia, dysphagia, esophageal dysmotility presented to the ED 02/03 was presented from Hospice status from [facility] as hospice was revoked by his who is [place] and wishes everything to be done at this time. Pt was found unresponsive on arrival w/ occasional eye opening and hypoxic on RA in 80s and hypotensive. Per EMS, pt hadn't eaten or drank anything in last several days. He was intubated in the ED and pressors started, he was receiving boluses of the fentanyl and versed for sedation. ROS not able due to patients' status. Odalis communicated to pt's who stated conditional code for now - no cpr but ok w/ intubation and pressors. Labs all over the place with elevated WBC, lactate, Creatinine, procal, Na, trops (appears chronically elevated). CXR w/ L base pna. Severe sepsis at presentation with shock. Pneumonia. Balanitis. Stage I pressure point ulcer of sacrum and left hip. Hypernatremia likely 2/2 severe dehydration due to decreased po intake. c/w cristi arias. Pt intubated and on pressors. Will be managed per ICU team. Looking at his status where he has not taken food for several days and his multiple organ dysfunction/cachectic appearance, the patient has very poor prognosis. Same has been communicated to his . on Exam: Patient is intubated, sedated, dry oral mucosa, pupils constricted, poor oral hygiene Urinary catheter with scant light yellow urine collection noted Cachectic appearance with scaphoid belly, soft abdomen, decreased bowel sounds. Stage I pressure ulcers at sacrum and left hip Clear to auscultation on lung exam, heart rates regular rate and rhythm/no murmur appreciated. No BLE edema appreciated. I have seen and examined the patient and have discussed the case with the provider above. I agree with the assessment and plan as stated.
[2023-02-03 16:50] LABS: Bilirubin Urine 1+ (Negative)
[2023-02-03 17:03] LABS: Cast Urine Automated 0 /lpf (0-5)
--- NOTE | 2023-02-03 17:20 | CT Scan Report ---
HEAD CT NONCONTRAST CT DOSE: 884.08 mGy.cm HISTORY: Altered mental status. TECHNIQUE: Multiaxial CT images of the head were performed without the use of intravenous contrast. A utomated exposure control was utilized for this study. A dose lowering technique was utilized adheri ng to the principles of ALARA. Comparison: None. Findings: The paranasal sinuses and mastoid air cells are clear. The calvarium and skull base are int act. There is no mass, hematoma, midline shift, acute infarct. White matter hypodensity is nonspecifi c but suggestive of microvascular ischemic change. The ventricles and sulci demonstrate mild age-rela heidy involutional changes. 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 Impression: No significant change compared to the prior study. No acute intracranial abnormality. ACT 112: Negative or not required by law. Electronically signed by: Wellington Garcia M.D. 02/03/2023 5:18 PM
[2023-02-03] MEDS ORDERED: THIAMINE HCL 500 MG in SODIUM CHLORIDE 0.9% 50 ML IV ONE (18:28)
--- NOTE | 2023-02-03 18:32 | Procedure Note ---
Procedure Note Date of Service February 03, 2023 Note INTERNAL JUGULAR CENTRAL LINE PROCEDURE NOTE: Procedure: Internal Jugular Central Line Placement Proceduralist: Brown Shepard Attending: Dr. DA SILVA Indication: Central Drug Administration, Poor Venous Access, Multiple Lab Draws Necessary, etc. Anesthesia: [x]Lidocaine 1% Consent was not obtained as patient requiring increasing dose of vasopressors and no family immediately available. As this procedure deemed urgent for contin ued support of hemodynamics per family wishes Patients LT Neck was cleansed and draped in the typical sterile fashion using Chloraprep, patient was then covered with maximum sterile barrier sheet. The Internal Jugular Vein and Carotid Artery were scouted and identified using ultrasound. The superficial tissue was anesthetized using [5] mL of 1% lidocaine without epinephrine under direct visualization with the ultrasound. After adequate anesthetization was achieved, the Internal Jugular vein was cannulated under direct ultrasound guidance using an introducer needle on a syringe x 1 attempt. Good venous blood return was maintained prior to removal of syringe from introducer needle. Using Seldinger Technique, a guide wire was advanced through the introducer needle without resistance. The introducer needle was removed and ultrasound images were obtained of the guide wire within the Internal Jugular Vein. A small incision was made in penetrating fashion at the guide wire insertion site utilizing an 11 blade scalpel. The dilator was advanced to the vessel without resistance. The dilator was exchanged for the triple lumen catheter which was advanced into the vessel, resistance was met at the 16cm annamarie. The guide wire was removed intact from the catheter without issue. Claves were placed on each catheter tip with confirmation of good blood flow from each lumen. Each port was easily flushed with sterile saline. CXR confirms that line is in central vein however it is higher than optimal position in distal end of the brachiocephalic. The catheter was placed at 16 cm and sut[address] in place. BioPatch was applied to the catheter and a sterile Tegaderm dressing was applied over the catheter with careful attention to sterility. Patient tolerated procedure well. No immediate complications were met. Due to his contracted position and limited other options for access to allow higher dose vasoactive medications. Discussed with my staff attending and will use line. Post procedure x-ray was completed, placement was appropriate and no pneumothorax was noted. Images obtained Procedural Ultrasound Guidance: Procedure Date: 03Feb2023 Indication: Direct Ultrasound Visualization Proceduralist: Brown Shepard Attending: Dr. DA SILVA Artery AND Vein visualized: YES Compressible Vein: YES Guidewire or Short Catheter seen in vein prior to dilation: YES Line confirmed in Vein with ultrasound: YES Images obtained but not saved to record secondary to technical difficulty getting images over. Coding CPT Codes Tubes, Drains, and Vasc Access - Tubes, Drains, and Vasc Access: [id number] Insertion Of Non-tunneled Catheter Age 5 Yrs> ([id number]) Tubes, Drains, and Vasc Access - Tubes, Drains, and Vasc Access: [id number] Ultrasound Guidance For Vascular ([id number]) [facility] [place] Procedure Codes (Charges) Tubes, Drains, and Vasc Access Procedure 1: Tubes, Drains, and Vasc Access: [id number] Insertion Of Non-tunneled Catheter Age 5 Yrs> Procedure 2: Tubes, Drains, and Vasc Access: [id number] Ultrasound Guidance For Vascular
--- NOTE | 2023-02-03 18:32 | Critical Care Consultation ---
Date of Consultation February 03, 2023 Assessment & Plan (1) Septic shock: (2) Acute hypernatremia: (3) Acute renal failure (ARF): (4) CAD (coronary artery disease): (5) Pacemaker battery depletion: (6) Stroke or transient ischemic attack (TIA) diagnosed during current admission: (7) Lewy body dementia: (8) Parkinson's disease: Plan Reason Critically Ill: 87 YOM recently on hospice until to day for end stage parkinson/lewy body dementia with complications of chronic UTI/sepsis. Patient arrive encephalopathic, hypoxic and was subsequently intubated following reported residence of hospice care by spouse. Spouse [place] out of the [place]. Patient requiring increasing needs of vasopressors in the setting of sepsis and hypovolemia hypernatremia. Neuro - Severe end stage Dementia, contractures CAM ICU: MERA secondary to underlying disease - Supported with mechanical ventilation- not fighting ventilator- sedation and pain medication PRN dosing with Fentanyl Cardiac - Shock, CAD with CABG hx, Hypovolemia - Shock multifactorial at this time but predominantly hypovolemic and septic shock - Continue with vasopressor support to maintain MAPS >65mm/hg - Follow volume status- improving - PPM- AAIR with mode switch to DDDR - low rate 60, upper rate 130 Respiratory - Hypoxic respiratory failure in the setting of severe dementia and failure to thrive - Hypoxic respiratory failure in setting of failure to thrive as well as possible LLL Pneumonia - continue ARDSnet ventilatory strategy - ABX as below GI - Transaminitis with increased INR - likely secondary to hypotension as well as some aspect of deficiency from poor PO intake - follow in AM currently 1.3 RENAL/LYTES - ARF, hypovolemic hypernatremia. AGAP Acidosis - Supportive care with crystalloid to euvolemia then transition to D5W - Goal of sodium correction no more than 12mmol in 24 hour- D5W at 110-120 ml/hour - Free water deficit of 6.5 liter for NA goal 140 - AGAP likely secondary to elevated BUN and Lactate - Chronic Villasenor, chronic UTI - Villasenor replaced ENDO - no acute needs - follow BG with hypoglycemic and hyperglycemic protocol HEME - No acute needs ID - Septic shock - Covered sources at this time to include pulmonary (HCAP), and UTI with chronic indwelling Villasenor - respiratory biofire negative - Received dose of Vancomycin and Zosyn- MRSA swab pending - Will add on Doxycycline and renally dose Zosyn- consider atypical coverage pending clinical course LINES/IV ACCESS - - piv X2, central access obtained, villasenor Continue use of these lines Central line terminating at distal left brachiocephalic- resistance met while threading- secured at 16 cm DVT PROPHYLAXIS -SCDS DISPO - ICU level care while intubated and on vasopressors. I have personally spent 45 minutes of critical care time in the direct management of this patient. This is a life/limb threatening event. This includes time spent evaluating patient, direct bedside care, chart review, placing orders, interpretation of diagnostic studies, discussion with consultants, patient, and family members, as well as other required patient management activities. This time is exclusive of all separately billable procedures, and teaching time and separate from and in addition to any other critical care service time. Thank you for allowing us to participate in the care of this patient. Please refer to my attending physician's documentation for any further recommendations. History of Present Illness Reason for Consultation: Intubation, mechanical ventilation, vasopressor support in likely septic patient at end of life Requesting Physician: Griselda Camarillo Attending Physician: Marvel Manzanares MD History of Present Illness 87 YOM previously at [facility] on Hospice care for Parkinson/Lewy body dementia and chronic UTI. Patient arrived to [facility] today per reports of decreased PO intake and failure to thrive over the past few days. He arrived lethargic and was intubated in the EMD secondary to reported residence of hospice by . Discussion was had by admitting team with . She is also reportedly out of the country with return date possibly 02/04/23. Her requests are to keep patient alive until she can be at the bedside with him if possible. He is a limited code at this time - which is essentially do not perform CPR, Defibrillation. He remains intubated with increase vasopressor use. Which is multifactorial at thie time to include septic shock from Urinary and possible Pulmonary source, oscar is severely dehydrated by his labs with notable hypernatremia of 164 and non-oliguric ARF. Medical Problem list with extensive cardiac history to include: CBAG, Bioprosthetic AVR, Thoracic ascending aneurysm, PFO, Sick Sinus Syndrome with PPM, HFpEF, HTN, TIA, Parkinson/Lewy body dementia, and anemia, he also suffers from contractures of upper and lower extremities and multiple decub ulcers. COVID: NEGATIVE CODE Status: Conditional Consults: None Allergies Allergy/AdvReac Type Severity Reaction Status Date / Time No Known Allergies Allergy Verified 12/19/22 11:15 Home Medications Medication Instructions Recorded Confirmed Type atorvastatin 20 mg tablet (Lipitor) 20 mg PO QPM #30 tabs 09/11/21 02/03/23 Rx carbidopa 25 mg-levodopa 100 mg 1 tab PO BID #60 tabs 09/11/21 02/03/23 Rx tablet sennosides 8.6 mg-docusate sodium 1 tab PO QAM #30 tabs 09/11/21 02/03/23 Rx 50 mg tablet (Senokot-S) acetaminophen 325 mg tablet 650 mg PO Q4H PRN PAIN/FEVER 09/12/22 02/03/23 History (Tylenol) aspirin 81 mg tablet,delayed 81 mg PO QAM 09/12/22 02/03/23 History release donepezil 5 mg tablet 5 mg PO QAM 09/12/22 02/03/23 History metoprolol tartrate 25 mg tablet 25 mg PO QAM 09/12/22 02/03/23 History polyethylene glycol 3350 17 gram 17 g PO QAM 09/12/22 02/03/23 History oral powder packet (Miralax) Patient History Medical History Aortic aneurysm Aortic stenosis Atrial fibrillation CAD (coronary artery disease) Dementia Goals of care, counseling/discussion Hemolytic anemia HLD (hyperlipidemia) HTN (hypertension) Left rib fracture prison resident Pacemaker Pacemaker battery depletion Parkinsons disease Rhabdomyolysis Septic shock T12 compression fracture Surgical History H/O prosthetic heart valve History of cataract surgery right Hx of heart bypass surgery Social History Smoking Status: Unknown if ever smoked Hx Substance Use: No Preferred Language: Egyptian Communication Ability: Unable Visual Impairment: No Limitations Hearing Ability: Normal [employer] Manager Required: No Beliefs That Will Affect Care: None marital status: Current Living Situation: Longterm Current Living Situation Comment: resident at [facility] Feels Safe at Home: Declines to Answer Assistive Devices: Wheelchair Review of Systems Review of Systems: Unable to obtain Physical Exam Physical Exam: PHYSICAL EXAM: General: lying in bed intubated, does not follow commands, contracted ENT: PERRLA, mucous membranes dry Neuro: AAO x 0, intubated, strength intact bilaterally 5/5, groans to painful stimuli, upper and lower extremities contracted Chest: equal rise and fall of the chest, decreased breath sounds with scattered rhonchi Cardiac: Regular rate and rhythm, telemetry reviewed- sinus with PAC, skin warm dry, cap refill prolonged seconds, peripheral pulses +2 no JVD, no murmur, no edema GI: NABS x 4 quadrants, soft, : chronic Villasenor with erythema to testicles, and head of penis and groin folds Skin: fungal like excoriation to groins with creams, excoriation with blisters and redness to head of penis, ulcerations to left shoulder, left hip with brusing, pressure injury to buttocks and blistering to testicles. Multiple other bruises and scratches noted on lower extremities. Results & Data Results & Data Vital Signs (Past 12 Hours) Vital Signs Temp Pulse Pulse Resp BP BP Pulse Ox 02/03/23 17:48 90 25 H 94 02/03/23 17:20 96 H 20 94 02/03/23 17:30 36.4 C L 91 H 20 89/59 L 93 02/03/23 17:00 93 H 23 90 02/03/23 17:00 77/48 L 02/03/23 17:00 77/48 L 02/03/23 16:55 92/59 L 02/03/23 16:55 80 22 91 02/03/23 16:50 79 24 89 L 02/03/23 16:50 86/52 L 02/03/23 17:09 87 17 99/75 L 02/03/23 16:45 77 20 92 02/03/23 16:45 100/64 02/03/23 16:40 81 24 92 02/03/23 16:40 77/56 L 02/03/23 16:35 77 27 H 95 02/03/23 16:35 114/63 02/03/23 16:30 91 H 21 95 02/03/23 16:30 100/69 02/03/23 16:26 78 27 H 94 02/03/23 16:26 148/85 H 02/03/23 16:20 86 18 94 02/03/23 16:20 147/75 H 02/03/23 16:15 81 27 H 94 02/03/23 16:15 119/65 02/03/23 16:10 81 39 H 94 02/03/23 16:10 112/62 02/03/23 16:05 90 39 H 93 02/03/23 16:00 87 34 H 94 02/03/23 16:00 121/64 02/03/23 15:55 127/93 02/03/23 15:55 95 H 27 H 94 02/03/23 15:50 84 39 H 95 02/03/23 15:50 144/89 H 02/03/23 15:45 144/86 H 02/03/23 15:45 90 34 H 95 02/03/23 15:40 94 H 42 H 94 02/03/23 15:40 120/68 02/03/23 15:35 89/66 L 02/03/23 15:35 97 H 37 H 92 02/03/23 15:30 97 H 41 H 93 02/03/23 15:30 116/69 02/03/23 15:23 100 H 26 H 88 L 02/03/23 15:23 81/62 L 02/03/23 15:20 87 25 H 88 L 02/03/23 15:20 85/57 L 02/03/23 15:15 104/60 02/03/23 15:15 87 29 H 94 02/03/23 15:11 84 26 H 97 02/03/23 15:11 165/97 H 02/03/23 15:10 82 0 L 95 02/03/23 15:08 149/93 H 02/03/23 15:08 102 H 0 L 98 02/03/23 15:08 146/79 H 02/03/23 15:05 86 0 L 99 02/03/23 15:05 121/88 02/03/23 15:04 94 H 0 L 98 02/03/23 15:04 138/116 H 02/03/23 15:00 89 0 L 94 02/03/23 15:00 104/69 02/03/23 14:56 95 H 0 L 97 02/03/23 14:56 92/64 L 02/03/23 14:52 86 0 L 02/03/23 14:52 95/82 L 02/03/23 14:50 74 0 L 02/03/23 14:40 80 30 H 93 02/03/23 14:30 80 23 93 02/03/23 14:20 68 27 H 87 L 02/03/23 15:25 02/03/23 15:10 102 H 21 94 02/03/23 15:22 84 20 96 02/03/23 14:02 74 18 84/66 L 87 L 02/03/23 14:43 76 17 75/62 L 90 02/03/23 14:32 73 O2 Del Method O2 Flow Rate FiO2 02/03/23 17:48 75 02/03/23 17:20 Mechanical Vent 75 02/03/23 17:30 Mechanical Vent 75 02/03/23 17:00 02/03/23 17:00 02/03/23 17:00 02/03/23 16:55 02/03/23 16:55 02/03/23 16:50 02/03/23 16:50 02/03/23 17:09 Mechanical Vent 02/03/23 16:45 02/03/23 16:45 02/03/23 16:40 02/03/23 16:40 02/03/23 16:35 02/03/23 16:35 02/03/23 16:30 02/03/23 16:30 02/03/23 16:26 02/03/23 16:26 02/03/23 16:20 02/03/23 16:20 02/03/23 16:15 02/03/23 16:15 02/03/23 16:10 02/03/23 16:10 02/03/23 16:05 02/03/23 16:00 02/03/23 16:00 02/03/23 15:55 02/03/23 15:55 02/03/23 15:50 02/03/23 15:50 02/03/23 15:45 02/03/23 15:45 02/03/23 15:40 02/03/23 15:40 02/03/23 15:35 02/03/23 15:35 02/03/23 15:30 02/03/23 15:30 02/03/23 15:23 02/03/23 15:23 02/03/23 15:20 02/03/23 15:20 02/03/23 15:15 02/03/23 15:15 02/03/23 15:11 02/03/23 15:11 02/03/23 15:10 02/03/23 15:08 02/03/23 15:08 02/03/23 15:08 02/03/23 15:05 02/03/23 15:05 02/03/23 15:04 02/03/23 15:04 02/03/23 15:00 02/03/23 15:00 02/03/23 14:56 02/03/23 14:56 02/03/23 14:52 02/03/23 14:52 02/03/23 14:50 02/03/23 14:40 02/03/23 14:30 02/03/23 14:20 02/03/23 15:25 80 02/03/23 15:10 Mechanical Vent 80 02/03/23 15:22 50 02/03/23 14:02 Room Air 02/03/23 14:43 Non-rebreather 15 02/03/23 14:32 Laboratory Results Abnormal lab results 02/03/23 02/03/23 02/03/23 Range/Units 14:28 14:28 14:28 WBC 26.51 H (4.8-10.8) K/ul MCHC 31.7 L (32.0-36.0) g/dL RDW Std Deviation 51.4 H (36.4-46.3) fL Neut # (Auto) 24.04 H (1.40-6.50) K/uL Lymph # (Auto) 1.15 L (1.2-3.4) K/uL [place] # (Auto) 0.93 H (0.11-0.59) K/uL Immature Gran # (Auto) 0.30 H (0.01-0.20) K/uL PT 14.0 H (9.0-12.0) Seconds INR 1.3 H (0.9-1.1) Sodium 164 H* (136-145) mmol/L Chloride 121 H (98-107) mmol/L Anion Gap 16 H (3-11) BUN 119 H (6-23) mg/dl Creatinine 5.93 H* (0.6-1.4) mg/dl BUN/Creatinine Ratio 20.1 H (10-20) Glucose 157 H (70-99(Fasting)) mg/dl Lactate (0.4-2.0) mmol/L AST 135 H (13-39) U/L ALT 57 H (7-52) U/L Troponin I High Sens 478.2 H* (0-20) pg/ml Total Protein 8.6 H (6.0-8.3) gm/dl Globulin 5.0 H (2.5-4.0) gm/dl Albumin/Globulin Ratio 0.7 L (0.9-2) Procalcitonin (0-0.5) ng/ml Urine Appearance (Clear) Urine Protein (Negative) Urine Ketones (Negative) Urine Blood (Negative) Urine Nitrite (Negative) Urine Bilirubin (Negative) Ur Leukocyte Esterase (Negative) Urine WBC (Auto) (0-5) /hpf Urine RBC (Auto) (0-4) /hpf U Epithel Cells (Auto) (0-5) /lpf Urine Bacteria (Auto) (Negative) 02/03/23 02/03/23 02/03/23 Range/Units 14:28 14:28 16:12 WBC (4.8-10.8) K/ul MCHC (32.0-36.0) g/dL RDW Std Deviation (36.4-46.3) fL Neut # (Auto) (1.40-6.50) K/uL Lymph # (Auto) (1.2-3.4) K/uL [place] # (Auto) (0.11-0.59) K/uL Immature Gran # (Auto) (0.01-0.20) K/uL PT (9.0-12.0) Seconds INR (0.9-1.1) Sodium (136-145) mmol/L Chloride (98-107) mmol/L Anion Gap (3-11) BUN (6-23) mg/dl Creatinine (0.6-1.4) mg/dl BUN/Creatinine Ratio (10-20) Glucose (70-99(Fasting)) mg/dl Lactate 2.8 H* (0.4-2.0) mmol/L AST (13-39) U/L ALT (7-52) U/L Troponin I High Sens (0-20) pg/ml Total Protein (6.0-8.3) gm/dl Globulin (2.5-4.0) gm/dl Albumin/Globulin Ratio (0.9-2) Procalcitonin 9.05 H (0-0.5) ng/ml Urine Appearance Turbid A (Clear) Urine Protein 3+ H (Negative) Urine Ketones Trace H (Negative) Urine Blood 3+ H (Negative) Urine Nitrite Positive A (Negative) Urine Bilirubin 1+ H (Negative) Ur Leukocyte Esterase 3+ H (Negative) Urine WBC (Auto) >30 H (0-5) /hpf Urine RBC (Auto) 10-30 H (0-4) /hpf U Epithel Cells (Auto) >30 H (0-5) /lpf Urine Bacteria (Auto) 4+ H (Negative) 02/03/23 Range/Units 16:50 WBC (4.8-10.8) K/ul MCHC (32.0-36.0) g/dL RDW Std Deviation (36.4-46.3) fL Neut # (Auto) (1.40-6.50) K/uL Lymph # (Auto) (1.2-3.4) K/uL [place] # (Auto) (0.11-0.59) K/uL Immature Gran # (Auto) (0.01-0.20) K/uL PT (9.0-12.0) Seconds INR (0.9-1.1) Sodium (136-145) mmol/L Chloride (98-107) mmol/L Anion Gap (3-11) BUN (6-23) mg/dl Creatinine (0.6-1.4) mg/dl BUN/Creatinine Ratio (10-20) Glucose (70-99(Fasting)) mg/dl Lactate 3.9 H* (0.4-2.0) mmol/L AST (13-39) U/L ALT (7-52) U/L Troponin I High Sens (0-20) pg/ml Total Protein (6.0-8.3) gm/dl Globulin (2.5-4.0) gm/dl Albumin/Globulin Ratio (0.9-2) Procalcitonin (0-0.5) ng/ml Urine Appearance (Clear) Urine Protein (Negative) Urine Ketones (Negative) Urine Blood (Negative) Urine Nitrite (Negative) Urine Bilirubin (Negative) Ur Leukocyte Esterase (Negative) Urine WBC (Auto) (0-5) /hpf Urine RBC (Auto) (0-4) /hpf U Epithel Cells (Auto) (0-5) /lpf Urine Bacteria (Auto) (Negative) Diagnostic Findings Head CT 02/03/23 14:[address] DOSE: 884.08 mGy.cm HISTORY: Altered mental status. TECHNIQUE: Multiaxial CT images of the head were performed without the use of intravenous contrast. Automated exposure control was utilized for this study. A dose lowering technique was utilized adhering to the principles of ALARA. Comparison: None. Findings: The paranasal sinuses and mastoid air cells are clear. The calvarium and skull base are intact. There is no mass, hematoma, midline shift, acute infarct. White matter hypodensity is nonspecific but suggestive of microvascular ischemic change. The ventricles and sulci demonstrate mild age-related involutional changes. 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 Impression: No significant change compared to the prior study. No acute intracranial abnormality. ACT 112: Negative or not required by law. Electronically signed by: Wellington Garcia M.D. 02/03/2023 5:18 PM Chest X-Ray 02/03/23 15:13 XR chest 1V not portable HISTORY: Respiratory illness, no prior imaging COMPARISON: Chest 12/19/2022. FINDINGS: Endotracheal tube terminates approximately 1.7 cm from the víctor. Left dual-chamber pacemaker is noted. There are poststernotomy changes. No pneumothorax. No pleural effusions. The cardiac silhouette is mildly enlarged. This remains unchanged. The right lung is clear. There is a new patchy left base airspace opacity. No evidence for pulmonary edema. Slightly rotated study. IMPRESSION: 1. Endotracheal tube terminates 1.7 cm and the víctor. 2. There is new left basilar density which may represent a developing pneumonia. ACT 112: Negative or not required by law. Electronically signed by: Wellington Garcia M.D. 02/03/2023 3:39 PM Medications Administered Fentanyl Citrate (Fentanyl Citrate 100 Mcg/2 Ml Vial) 100 mcg IV Q15M PRN PRN Reason: Pain Stop: 02/17/23 16:42 Last Admin: 02/03/23 19:32 Dose: 100 mcg Documented By: [id number] Norepinephrine Bitartrate (Levophed/D5w) 4 mg in 250 mls @ 13.313 mls/hr IV .[id number] FERNIE; Protocol Stop: 03/05/23 14:44 Last Titration: 02/03/23 19:20 Dose: 0.2 mcg/kg/min, 53.3 mls/hr Documented By: [id number] Admin: 02/03/23 18:55 Dose: 0.26 mcg/kg/min, 69.2 mls/hr Documented By: CB Co-signed By: TP Titration: 02/03/23 18:55 Dose: 0.26 mcg/kg/min, 69.2 mls/hr Documented By: CB Co-signed By: TP Titration: 02/03/23 18:05 Dose: 0.26 mcg/kg/min, 69.2 mls/hr Documented By: [id number] Titration: 02/03/23 18:00 Dose: 0.24 mcg/kg/min, 63.9 mls/hr Documented By: [id number] Titration: 02/03/23 15:21 Dose: 0.22 mcg/kg/min, 58.6 mls/hr Documented By: Titration: 02/03/23 14:56 Dose: 0.2 mcg/kg/min, 53.3 mls/hr Documented By: Titration: 02/03/23 14:45 Dose: 0.1 mcg/kg/min, 26.6 mls/hr Documented By: Titration: 02/03/23 14:42 Dose: 0.07 mcg/kg/min, 18.6 mls/hr Documented By: Admin: 02/03/23 14:34 Dose: 0.05 mcg/kg/min, 13.3 mls/hr Documented By: BELEN Co-signed By: IHSAN Parenteral Electrolytes (Normosol-R) 1,000 mls @ 125 mls/hr IV .Q8H FERNIE Stop: 03/05/23 16:44 Last Admin: 02/03/23 18:11 Dose: 125 mls/hr Documented By: MONTEZ Discontinued Medications Epinephrine HCl (Epinephrine 1.5" Ndl 0.1 Mg/Ml Syr) Confirm Administered Dose 1 mg IV .STK-MED ONE Stop: 02/03/23 14:58 Last Admin: 02/03/23 16:08 Dose: Not Given Documented By: AM Fentanyl Citrate (Fentanyl Citrate 100 Mcg/2 Ml Vial) 100 mcg IV NOW STA Stop: 02/03/23 15:19 Last Admin: 02/03/23 15:53 Dose: 100 mcg Documented By: AM Fentanyl Citrate (Fentanyl Citrate 100 Mcg/2 Ml Vial) 100 mcg IV NOW STA Stop: 02/03/23 16:16 Last Admin: 02/03/23 16:38 Dose: 100 mcg Documented By: AM Sodium Chloride (Nss 1000ml) 1,000 mls @ 999 mls/hr IV .Q1H1M ONE Stop: 02/03/23 15:21 Last Infusion: 02/03/23 15:50 Dose: 0 mls/hr Documented By: Admin: 02/03/23 14:45 Dose: 999 mls/hr Documented By: BELEN Lactated Ringer's (Lr) 1,000 mls @ 999 mls/hr IV .Q1H1M ONE Stop: 02/03/23 15:21 Last Infusion: 02/03/23 16:00 Dose: 0 mls/hr Documented By: Admin: 02/03/23 14:50 Dose: 999 mls/hr Documented By: IHSAN Piperacillin Sod/Tazobactam Sod (Zosyn) 4.5 gm in 120 mls @ 240 mls/hr IV NOW ONE Stop: 02/03/23 14:50 Last Infusion: 02/03/23 16:28 Dose: 0 mls/hr Documented By: Admin: 02/03/23 15:43 Dose: 240 mls/hr Documented By: AM Lactated Ringer's (Lr) 1,000 mls @ 999 mls/hr IV .Q1H1M ONE Stop: 02/03/23 16:14 Last Infusion: 02/03/23 17:43 Dose: 0 mls/hr Documented By: [id number] Admin: 02/03/23 16:09 Dose: 999 mls/hr Documented By: AM Vancomycin HCl 1,250 mg/ (Sodium Chloride) 525 mls @ 200 mls/hr IV NOW ONE Stop: 02/03/23 17:51 Last Admin: 02/03/23 16:27 Dose: 200 mls/hr Documented By: AM Midazolam HCl (Midazolam Hcl 1 Mg/Ml 2ml Vial) 1 mg IV NOW STA Stop: 02/03/23 16:16 Last Admin: 02/03/23 16:22 Dose: 1 mg Documented By: AM Midazolam HCl (Midazolam Hcl 1 Mg/Ml 2ml Vial) 1 mg IV NOW STA Stop: 02/03/23 16:30 Last Admin: 02/03/23 16:36 Dose: 1 mg Documented By: AM Miscellaneous (Rapid Sequence Induction Bag) Confirm Administered Dose 1 each N/A .STK-MED ONE Stop: 02/03/23 14:46 Last Admin: 02/03/23 16:08 Dose: Not Given Documented By: AM Norepinephrine Bitartrate (Norepinephrine/D5w 4 Mg/250 Ml) Confirm Administered Dose 4 mg IV .STK-MED ONE Stop: 02/03/23 14:31 Last Admin: 02/03/23 14:41 Dose: Not Given Documented By: S Coding Level of Care Code 60553 CRITICAL CARE 1ST 30-74M Diagnoses Septic shock A41.9; R65.21 Acute hypernatremia E87.0 Acute renal failure (ARF) N17.9 CAD (coronary artery disease) I25.10 Pacemaker battery depletion Z45.010 Stroke or transient ischemic attack (TIA) diagnosed during current admission Lewy body dementia G31.83; F02.80 Parkinson's disease G20
[2023-02-03] MEDS: fentaNYL citrate PF 100 MCG/2 ML VIAL IV PRN ×5 (19:32→22:42)
--- NOTE | 2023-02-03 20:06 | XRay Report ---
XR chest 1V portable HISTORY: Central line placement COMPARISON: Chest 02/03/2023. FINDINGS: Endotracheal tube terminates approximately 5 cm from the víctor. Nasogastric tube terminate s at the distal esophagus. This should be advanced by approximately 10 cm. A left jugular central anika ous catheter terminates at the distal left brachiocephalic vein. There is a left-sided dual-chamber p acemaker again noted. There are old, healed left-sided rib fractures. Left basilar airspace opacities persist. IMPRESSION: 1. Nasogastric tube terminates at the distal esophagus. This should be advanced by approximately 10 c m. 2. A left jugular central venous catheter terminus at the distal left brachiocephalic vein. 3. No pneumothorax. 4. Left base airspace opacities persist. 5. Endotracheal tube terminates approximately 5 cm from the víctor. ACT 112: Negative or not required by law. Electronically signed by: Wellington Garcia M.D. 02/03/2023 8:04 PM
--- NOTE | 2023-02-03 20:31 | Pharmacy Report ---
Pharmacy PK ABX Note - Date of Service February 03, 2023 - Assessment and Plan Assessment 87 year old M receiving IV Vancomycin, Zosyn, and Doxycycline for treatment of severe sepsis secondary to pneumonia. Day # 1 of antimicrobial therapy. Plan Vancomycin * Loading dose: 1250 mg (~16mg/kg) IV x 1 was given in ED * Given HERSON, will dose Vancomycin prn based on random drug levels * Random level ordered for: 02/04/23 with AM labs Pharmacy will continue to follow and will adjust dose/frequency as necessary. Thank you. Zosyn * Loading dose of 4.5g was given in ED * Given CrCl <20, will give 4.5g IV q12 (extended infusion over 4 hours); higher dose due to critical illness
[2023-02-03 20:37] LABS: BUN Creatinine Ratio 19.7 (10-20); Creatinine Clr Calc Pharmacy 10.2 ml/min; Est GFR (African American) 9.6 ml/min; Est GFR (Non-African American) 8.3 ml/min; Potassium 4.3 mmol/L (3.5-5.1)
[2023-02-03] MEDS: DOXYCYCLINE HYCLATE 100 MG in DEXTROSE 5% 100 ML IV SCH (20:56)
[2023-02-03] MEDS ORDERED: CARBOHYDRATES FOR HYPOGLYCEMIA PO PRN (21:02)
[2023-02-03] MEDS ORDERED: DEXTROSE 50% 50 ML SYRINGE IV PRN (21:02)
[2023-02-03] MEDS ORDERED: GLUCOSE 10 TAB/TUBE PO PRN (21:02)
[2023-02-03] MEDS ORDERED: GLUCOSE 40% GEL 15 GM TUBE PO PRN (21:02)
[2023-02-03] MEDS ORDERED: ICU ELECTROLYTE REPLACEMENT PROTOCOL PRN (21:02)
[2023-02-03] MEDS ORDERED: DEXTROSE 5% 1,000 ML IV SCH (21:15)
[2023-02-03 23:23] LABS: BUN Creatinine Ratio 20.6 (10-20); Calcium 7.6 mg/dl (8.5-10.1); Creatinine Clr Calc Pharmacy 10.6 ml/min; Est GFR (African American) 10.2 ml/min; Est GFR (Non-African American) 8.8 ml/min; Potassium 4.3 mmol/L (3.5-5.1)
[2023-02-04] MEDS ORDERED: PIPERACILLIN/TAZOBACTAM 2.25 GM in DEXTROSE 5% 100 ML IV SCH
[2023-02-04] MEDS: PIPERACILLIN/TAZOBACTAM 4.5 GM CI (over 4 hours) IV SCH ×2 (00:04→12:43)
[2023-02-04] MEDS: fentaNYL citrate PF 100 MCG/2 ML VIAL IV PRN ×7 (00:09→07:37)
[2023-02-04] MEDS ORDERED: STAT IV Infusion **Titration per Protocol STA ×2 (01:07→09:37)
[2023-02-04] MEDS: VASOPRESSIN 20 UNITS in 0.9 % SODIUM CHLORIDE 100 ML IV SCH ×3 (01:28→16:42)
[2023-02-04 02:31] LABS: BUN Creatinine Ratio 20.7 (10-20); Calcium 7.7 mg/dl (8.5-10.1); Creatinine Clr Calc Pharmacy 10.6 ml/min; Est GFR (African American) 10.1 ml/min; Est GFR (Non-African American) 8.8 ml/min; Potassium 4.4 mmol/L (3.5-5.1)
[2023-02-04] MEDS ORDERED: GLUCAGON FOR INJ 1 MG VIAL SQ PRN (02:58)
[2023-02-04] MEDS ORDERED: DEXTROSE 50% 50 ML SYRINGE IV PRN (02:58)
[2023-02-04] MEDS: Standard Conc 16mcg/mL; 4mg in 250mL IV SCH ×4 (03:08→18:42)
[2023-02-04 05:42] LABS: INR 1.4 (0.9-1.1); Prothrombin Time 14.6 Seconds (9.0-12.0)
[2023-02-04 06:08] LABS: Albumin Globulin Ratio 0.7 (0.9-2); Albumin Level 2.6 gm/dl (3.4-5.0); BUN Creatinine Ratio 21.6 (10-20); Bilirubin,Total 0.6 mg/dl (0.2-1.0); Calcium 7.6 mg/dl (8.5-10.1); Est GFR (African American) 10.6 ml/min; Est GFR (Non-African American) 9.1 ml/min; Globulin 3.7 gm/dl (2.5-4.0); Magnesium 2.3 mg/dl (1.7-2.4); Phosphorus 6.4 mg/dl (2.5-4.9); Potassium 4.3 mmol/L (3.5-5.1); Total Protein 6.3 gm/dl (6.0-8.3); Troponin I High Sensitivity 308.5 pg/ml (0-20)
[2023-02-04] MEDS: LACTATED RINGER'S 1,000 ML IV SCH ×2 (06:21→15:22)
[2023-02-04] MEDS: INSULIN ASPART PER UNIT CHARGE SC SCH ×3 (06:24→17:40)
[2023-02-04] MEDS: DOXYCYCLINE HYCLATE 100 MG in DEXTROSE 5% 100 ML IV SCH (06:36)
[2023-02-04 06:38] LABS: Hematocrit (blood only) 39.3 % (42.0-52.0); Hemoglobin 12.3 g/dl (14.0-18.0); Mean Corpuscular Hemoglobin 30.5 pg (25.0-34.0); Mean Corpuscular Hgb Conc 31.3 g/dL (32.0-36.0); Mean Corpuscular Volume 97.5 fL (80.0-100.0); Platelet Count 187 K/uL (130-400); RDW Coefficient of Variation 14.3 % (11.5-14.5); RDW Standard Deviation 51.2 fL (36.4-46.3); Red Blood Count 4.03 M/uL (4.70-6.10); White Blood Count 25.25 K/ul (4.8-10.8)
--- NOTE | 2023-02-04 07:36 | Critical Care Progress Note ---
Date of Service February 04, 2023 Assessment & Plan (1) Septic shock: (2) AMS (altered mental status): (3) Acute hypernatremia: (4) Acute renal failure (ARF): (5) Sepsis: (6) Acute UTI (urinary tract infection): (7) Dementia: (8) Parkinson's disease: (9) Lewy body dementia: Plan Reason Critically Ill: 87 YOM recently on hospice until to day for end stage parkinson/lewy body dementia with complications of chronic UTI/sepsis. Patient arrive encephalopathic, hypoxic and was subsequently intubated following reported residence of hospice care by spouse. [place]. Patient requiring increasing needs of vasopressors in the setting of sepsis and hypovolemia hypernatremia. 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, contractures [facility] ICU: Unable to assess secondary to underlying disease - Supported with mechanical ventilation Sedation-Fentanyl drip Cardiac -Shock, CAD with CABG hx, Hypovolemia - Shock multifactorial at this time but predominantly hypovolemic and septic shock - Continue with vasopressor support to maintain MAPS >65mm/hg - Follow volume status- improving - PPM- AAIR with mode switch to DDDR - low rate 60, upper rate 130 -- Elevated troponins Likely secondary to type II MS Continue to trend Respiratory -Hypoxic respiratory failure in the setting of severe dementia and failure to thrive -- VDRF Likely secondary to left lower lobe pneumonia from aspiration Continue with ventilatory support Keep RASS -1 Daily sedation holidays and SBT's GI -Transaminitis with increased INR - likely secondary to hypotension as well as some aspect of deficiency from poor PO intake - follow in AM currently 1.3 RENAL/LYTES -ARF, hypovolemic hypernatremia. AGAP Acidosis - Supportive care with crystalloid to euvolemia then transition to D5W - Goal of sodium correction no more than 8 meq -- HERSON Likely from dehydration, patient likely in ATN Monitor BUN/creatinine Avoid nephrotoxic medications Strict ins and outs -Chronic Ferris, chronic UTI - Ferris replaced ENDO - no acute needs - follow BG with hypoglycemic and hyperglycemic protocol HEME -No acute needs ID -Septic shock with bacteremia, MRSA - Covered sources at this time to include pulmonary (HCAP), and UTI with chronic indwelling Ferris - respiratory biofire negative -Continue with antibiotic -- DNR --Prophylaxis VTE: Heparin GI: Pantoprazole Lines: Left IJ, right radial Diet: Tube feeds Plan: In/out: +6.2 L, urine output 240 mL Decrease respiratory to 16, decrease FiO2 to 40%. Continue with LR. Goal sodium for today's 152-153. DC D5 water. DC doxycycline. Continue with vancomycin and Zosyn for MRSA positive pneumonia Palliative care did speak with patient's as well as son, there will be no escalation of care. Goal is to see if we are able to continue with current care till is able to come see the patient. Overall prognosis is guarded I have personally spent 45 minutes of critical care time in the direct management of this patient. This is a life/limb threatening event. This includes time spent evaluating patient, direct bedside care, chart review, placing orders, interpretation of diagnostic studies, discussion with consultants, patient, and family members, as well as other required patient management activities. This time is exclusive of all separately billable procedures, and teaching time and separate from and in addition to any other critical care service time. Please note the above document was generated using voice recognition software. It may contain grammatical, syntax or spelling errors. Admission and Anticipated Discharge Date Admission Date: February 03, 2023 Subjective Patient seen and examined at bedside. No acute distress Patient was on vent support. Breathing over the vent He was on Levophed 0.2, vasopressin 0.04. MAP in the high 60s to low 70s Saturating 98% on 50% FiO2 went down to 40%, decreased respiratory rate to 16. Having low-grade temperature. Review of Systems Review of Systems: Unobtainable due to cognitive status and Unobtainable due t o reduced consciousness Physical Exam Physical Exam: Constitutional: No acute distress HEENT: PERRLA, arcus senilis bilaterally Respiratory system: Decreased air entry bilaterally, no wheeze, no rhonchi, positive crackles bilateral lower lobes, more on the left side CVS: S1-S2 positive, 2 out of 6 systolic murmur appreciated best at aorta Abdomen: Soft, nontender, nondistended, positive bowel sounds x4 Extremities: +2 pulses bilaterally radialis/ dorsalis pedis, no cyanosis, +1 pitting edema bilateral lower extremity Neuro: Intubated, sedated Psych: Unable to assess G/U: Positive Ferris Skin: no rashes, warm and dry Lymphatic: no cervical or axillary lymphadenopathy Results & Data Results & Data Vital Signs (Past 12 Hours) Vital Signs Temp Pulse Pulse Resp BP BP BP 02/04/23 06:00 78 25 H 111/76 02/04/23 07:21 70 22 02/04/23 05:40 79 25 H 02/04/23 05:30 79 19 02/04/23 05:30 95/66 L 02/04/23 05:20 82 19 02/04/23 05:15 105/68 02/04/23 05:15 81 19 02/04/23 05:10 72 23 02/04/23 05:00 76 17 02/04/23 05:00 124/69 02/04/23 04:50 81 21 02/04/23 04:45 110/70 02/04/23 04:45 83 21 02/04/23 04:40 80 20 02/04/23 04:30 84 18 02/04/23 04:30 138/97 02/04/23 04:28 80 20 02/04/23 04:28 128/78 02/04/23 04:20 94 H 19 02/04/23 04:15 131/101 H 02/04/23 04:15 70 19 02/04/23 04:10 83 18 02/04/23 04:00 84 17 02/04/23 04:00 118/81 02/04/23 03:50 80 18 02/04/23 03:40 79 18 02/04/23 03:30 78 19 02/04/23 03:30 108/78 02/04/23 03:20 80 16 02/04/23 03:16 107/83 02/04/23 03:16 63 18 02/04/23 03:10 81 21 02/04/23 03:00 83 22 02/04/23 03:00 124/81 02/04/23 02:52 82 16 02/04/23 02:52 106/76 02/04/23 02:50 82 18 02/04/23 02:45 130/102 H 02/04/23 02:45 84 17 02/04/23 02:40 82 19 02/04/23 02:30 85 18 02/04/23 02:30 113/77 02/04/23 02:20 83 22 02/04/23 02:15 80 19 02/04/23 02:15 124/81 02/04/23 02:10 85 22 02/04/23 02:00 75 16 02/04/23 02:00 105/88 02/04/23 01:50 89 17 02/04/23 01:40 88 18 02/04/23 01:30 96 H 15 02/03/23 20:00 02/03/23 20:00 02/04/23 05:00 36.6 C 76 22 105/68 02/04/23 04:00 36.8 C 78 23 138/97 02/04/23 04:00 02/04/23 03:00 108/78 02/04/23 02:35 82 25 H 02/04/23 00:00 02/03/23 20:00 02/03/23 20:00 37 C 02/03/23 23:00 36.5 C 102 H 23 92/63 L 02/03/23 22:50 104 H 22 02/03/23 19:47 94 H 22 Pulse Ox O2 Del Method O2 Del Method FiO2 02/04/23 06:00 98 Mechanical Vent 02/04/23 07:21 96 50 02/04/23 05:40 94 02/04/23 05:30 94 02/04/23 05:30 02/04/23 05:20 96 02/04/23 05:15 02/04/23 05:15 94 02/04/23 05:10 95 02/04/23 05:00 94 02/04/23 05:00 02/04/23 04:50 94 02/04/23 04:45 02/04/23 04:45 95 02/04/23 04:40 96 02/04/23 04:30 96 02/04/23 04:30 02/04/23 04:28 96 02/04/23 04:28 02/04/23 04:20 72 L 02/04/23 04:15 02/04/23 04:15 92 02/04/23 04:10 94 02/04/23 04:00 98 02/04/23 04:00 02/04/23 03:50 98 02/04/23 03:40 94 02/04/23 03:30 97 02/04/23 03:30 02/04/23 03:20 98 02/04/23 03:16 02/04/23 03:16 96 02/04/23 03:10 97 02/04/23 03:00 95 02/04/23 03:00 02/04/23 02:52 96 02/04/23 02:52 02/04/23 02:50 96 02/04/23 02:45 02/04/23 02:45 95 02/04/23 02:40 97 02/04/23 02:30 97 02/04/23 02:30 02/04/23 02:20 94 02/04/23 02:15 95 02/04/23 02:15 02/04/23 02:10 96 02/04/23 02:00 93 02/04/23 02:00 02/04/23 01:50 95 02/04/23 01:40 93 02/04/23 01:30 92 02/03/23 20:00 Mechanical Vent 75 02/03/23 20:00 Mechanical Vent 02/04/23 05:00 93 Mechanical Vent 50 02/04/23 04:00 96 Mechanical Vent 50 02/04/23 04:00 50 02/04/23 03:00 50 02/04/23 02:35 96 60 02/04/23 00:00 60 02/03/23 20:00 75 02/03/23 20:00 02/03/23 23:00 93 Mechanical Vent 60 02/03/23 22:50 96 75 02/03/23 19:47 95 75 Laboratory Results 02/04/23 04:42 Coding Level of Care Code 18774 CRITICAL CARE 1ST 30-74M Diagnoses Septic shock A41.9; R65.21 AMS (altered mental status) R41.82 Acute hypernatremia E87.0 Acute renal failure (ARF) N17.9 Sepsis A41.9 Acute UTI (urinary tract infection) N39.0 Dementia F03.90 Parkinson's disease G20 Lewy body dementia G31.83; F02.80 Time Spent (min) 45
[2023-02-04 07:57] LABS: A calco-baum cmplx NotReported Not Detected (NotDetected); Bact fragilis Not Reported Not Detected (NotDetected); C auris Not Reported Not Detected (NotDetected); Calbicans Not Reported Not Detected (NotDetected); Candida glabrata Not Reported Not Detected (NotDetected); Candida krusei Not Reported Not Detected (NotDetected); Cneoformans/gatti Not Reported Not Detected (NotDetected); Cparapsilosis Not Reported Not Detected (NotDetected); Ctropicalis Not Reported Not Detected (NotDetected); E cloacae compx Not Reported Not Detected (NotDetected); Efaecalis Not Reported Not Detected (NotDetected); Efaecium Not Reported Not Detected (NotDetected); Enterobacterales Not Reported Not Detected (NotDetected); Escherichia coli Not Reported Not Detected (NotDetected); H influenzae Not Reported Not Detected (NotDetected); K aerogenes Not Reported Not Detected (NotDetected); Koxytoca Not Reported Not Detected (NotDetected); Kpneumoniae grp Not Reported Not Detected (NotDetected); Lmonocyt Not Reported Not Detected (NotDetected); N meningitidis Not Reported Not Detected (NotDetected); P aeruginosa Not Reported Not Detected (NotDetected); Proteus spp Not Reported Not Detected (NotDetected); Salmonella spp Not Reported Not Detected (NotDetected); Smarcescens Not Reported Not Detected (NotDetected); Staph lugdunensis Not Reported Not Detected (NotDetected); Staphaureus Not Reported Not Detected (NotDetected); Staphepi Not Reported DETECTED (NotDetected); Stenmaltophilia Not Reported Not Detected (NotDetected); Strep agal(GrpB) Not Reported Not Detected (NotDetected); Strep pneum Not Reported Not Detected (NotDetected); Strep pyog (GrpA) Not Reported Not Detected (NotDetected); Strep spp Not Reported Not Detected (NotDetected)
--- NOTE | 2023-02-04 08:03 | XRay Report ---
XR chest 1V portable HISTORY: 87 years-old Male while intubated- eval tubes/lines/lungs acute respiratory failure COMPARISON: 02/03/2023 TECHNIQUE: AP view of the chest FINDINGS: Cardiac silhouette is mildly enlarged. Prior median sternotomy with suggested CABG. Endotracheal tube overlies the midline, 4.7 cm superior to the víctor. Enteric tube distal tip projects over the proxi mal stomach. Left IJ central venous catheter is noted with distal tip in the expected location of the brachiocephalic SVC confluence. No pneumothorax. Unchanged blunting of the costophrenic angles. Persistent left midlung/left basilar consolidative opacities. Bones appear grossly intact. IMPRESSION: 1. Lines and tubes as above. 2. No pneumothorax. 2. Persistent left midlung/left basilar consolidation. ACT 112: Negative or not required by law. The above report was generated using voice recognition software. It may contain grammatical, syntax o r spelling errors. Electronically signed by: Mariano Wilcox M.D. 02/04/2023 8:01 AM
[2023-02-04 08:04] LABS: BUN Creatinine Ratio 20.7 (10-20); Calcium 7.6 mg/dl (8.5-10.1); Creatinine Clr Calc Pharmacy 10.3 ml/min; Est GFR (African American) 9.8 ml/min; Est GFR (Non-African American) 8.5 ml/min; Potassium 4.4 mmol/L (3.5-5.1)
[2023-02-04 08:05] LABS: Staph spp. Not Reported DETECTED (NotDetected); Staphylococcus epidermidis DETECTED (NotDetected); Staphylococcus spp. DETECTED (NotDetected); mecAC Resistant Gene DETECTED (NotDetected)
[2023-02-04] MEDS ORDERED: VANCOMYCIN HCL 750 MG in SODIUM CHLORIDE 0.9% 250 ML IV STA (08:59)
[2023-02-04] MEDS: THIAMINE HCL 100 MG in SYRINGE 9 ML IV SCH (09:14)
[2023-02-04] MEDS: PANTOprazole 40 MG in SYRINGE 0 ML IV SCH (09:15)
[2023-02-04] MEDS ORDERED: fentaNYL BOLUS from BAG IV PRN (09:37)
[2023-02-04] MEDS ORDERED: fentaNYL citrate 2,500 MCG/250 ML BAG IV SCH (09:45)
--- NOTE | 2023-02-04 10:52 | Electrocardiogram Report ---
Test Reason : Blood Pressure : / mmHG Vent. Rate : 074 BPM Atrial Rate : 074 BPM P-R Int : 182 ms QRS Dur : 140 ms QT Int : 464 ms P-R-T Axes : 000 078 028 degrees QTc Int : 515 ms Atrial-paced rhythm with Premature atrial complexes Right bundle branch block Abnormal ECG When compared with ECG of 19-DEC-2022 04:35, Electronic atrial pacemaker has replaced Electronic ventricular pacemaker Confirmed by Joon Garcia ([id number] on 02/04/2023 10:51:56 AM Referred By: [facility] Confirmed By:Randy Garcia
[2023-02-04] MEDS: ICU Protocol for HYPERglycemia SCH ×4 (11:11→21:08)
[2023-02-04] MEDS: HEPARIN SOD 5,000 UNIT/0.5 ML VIAL SQ SCH ×2 (11:11→20:54)
--- NOTE | 2023-02-04 11:28 | Hospitalist Progress Note ---
Date of Service February 04, 2023 Assessment & Plan (1) Septic shock: (2) Acute hypernatremia: (3) Acute renal failure (ARF): (4) Goals of care, counseling/discussion: Plan 87 y/o male from [facility] with septic shock, renal failure. Revoked hospice for ED admission per request who is traveling from [facility]. Pt intubated. Admitting team confirmed NO CPR, defibrillation, cardioversion in the event of cardiac arrest. Continue pressors with hope of arriving from [place]. Grave prognosis. Septic Shock: Bacteremia - gram positive cocci in clusters Recent month long admission with urosepsis; was recently on Hospice until now. WBC 26.51; started on Zosyn and Vancomycin Lactate: 2.8 on admission Blood cultures - positive for gram positive cocci in cluster Continue w/ vasopressor support, per ICU Hypoxic resp. failure Intubated in ED for airway protection vent. care per ICU team Elev. troponin Troponin level 400's on admission - likely type II IA, secondary to above Acute Hypernatremia: Na+ 164 Current Na down to 152 - care per ICU Acute Renal Failure: Creatinine 5.93; confirmed with patient , no dialysis -likely from dehydration, likely ATN Chronic Ferris - Ferris was replaced - abx to cover poss UTI, as above Goals of care: Admitting team had a lengthy conversation with the patient's , Audelia on the phone while she is in [facility]. Significant time spent discussing goals of care. Discussed that in the event his heart would stop we would transition our focus to a more comfort approach allowing him to with dignity and comfort. She was amenable to a transition to conditional code with continuation of mechanical ventilation and inotropic vasoactive medications. Patient's agreeable that she would not want him to pursue hemodialysis. Palliative Medicine also consulted. Disposition: PCP: [facility] Code Status: Conditional Code. Admitting team discussed goals of care. Now conditional code in case of decline. Ok for continuation of vent and pressors for now. Palliative medicine also consulted. VTE prophylaxis: heparin subq Admission and Anticipated Discharge Date Admission Date: February 03, 2023 Subjective Pt seen in follow up of septic/hypovolemic shock, renal failure, vent. support in ICU ROS not obtainable Friend at the bedside Pt seen by palliative medicine - pt's family was contacted - they will be travelling to [place] to be able to see him Review of Systems Review of Systems: Unobtainable due to cognitive status and Unobtainable due to endotracheal tube Physical Exam Physical Exam: General: elderly frail M intubated, sedated HEENT: head normocephalic, moist mucus membranes CV: S1/S2, (-) M/G/R, (-) edema, Decreased capillary refill Resp: Lungs CTA, intubated on vent support GI: Abdomen S/NT/ND, Ax4 bowel sounds Musculoskeletal: + contractions Skin: L hip w/pressure injury, L shoulder w/pressure injury Neuro: intubated Results & Data Results & Data Vital Signs (Past 12 Hours) Vital Signs Temp Pulse Pulse Resp BP BP BP 02/04/23 11:22 77/57 L 02/04/23 11:22 88/52 L 02/04/23 11:02 81 118/60 02/04/23 10:40 102/61 02/04/23 10:55 79 20 02/04/23 09:25 37.1 C 02/04/23 09:00 91/75 L 02/04/23 08:15 80/52 L 02/04/23 08:00 66 02/04/23 08:00 02/04/23 08:00 02/04/23 08:00 02/04/23 08:00 82 24 89/58 L 02/04/23 06:00 78 25 H 111/76 02/04/23 07:21 70 22 02/04/23 05:40 79 25 H 02/04/23 05:30 79 19 02/04/23 05:30 95/66 L 02/04/23 05:20 82 19 02/04/23 05:15 105/68 02/04/23 05:15 81 19 02/04/23 05:10 72 23 02/04/23 05:00 76 17 02/04/23 05:00 124/69 02/04/23 04:50 81 21 02/04/23 04:45 110/70 02/04/23 04:45 83 21 02/04/23 04:40 80 20 02/04/23 04:30 84 18 02/04/23 04:30 138/97 02/04/23 04:28 80 20 02/04/23 04:28 128/78 02/04/23 04:20 94 H 19 02/04/23 04:15 131/101 H 02/04/23 04:15 70 19 02/04/23 04:10 83 18 02/04/23 04:00 84 17 02/04/23 04:00 118/81 02/04/23 03:50 80 18 02/04/23 03:40 79 18 02/04/23 03:30 78 19 02/04/23 03:30 108/78 02/04/23 03:20 80 16 02/04/23 03:16 107/83 02/04/23 03:16 63 18 02/04/23 03:10 81 21 02/04/23 03:00 83 22 02/04/23 03:00 124/81 02/04/23 02:52 82 16 02/04/23 02:52 106/76 02/04/23 02:50 82 18 02/04/23 02:45 130/102 H 02/04/23 02:45 84 17 02/04/23 02:40 82 19 02/04/23 02:30 85 18 02/04/23 02:30 113/77 02/04/23 02:20 83 22 02/04/23 02:15 80 19 02/04/23 02:15 124/81 02/04/23 02:10 85 22 02/04/23 02:00 75 16 02/04/23 02:00 105/88 02/04/23 01:50 89 17 02/04/23 01:40 88 18 02/04/23 01:30 96 H 15 02/04/23 05:00 36.6 C 76 22 105/68 02/04/23 04:00 36.8 C 78 23 138/97 02/04/23 04:00 02/04/23 03:00 108/78 02/04/23 02:35 82 25 H 02/04/23 00:00 Pulse Ox O2 Del Method FiO2 02/04/23 11:22 02/04/23 11:22 02/04/23 11:02 02/04/23 10:40 97 Mechanical Vent 02/04/23 10:55 97 40 02/04/23 09:25 02/04/23 09:00 81 L Mechanical Vent 02/04/23 08:15 02/04/23 08:00 02/04/23 08:00 Mechanical Vent 02/04/23 08:00 40 02/04/23 08:00 Mechanical Vent 40 02/04/23 08:00 97 Mechanical Vent 50 02/04/23 06:00 98 Mechanical Vent 02/04/23 07:21 96 50 02/04/23 05:40 94 02/04/23 05:30 94 02/04/23 05:30 02/04/23 05:20 96 02/04/23 05:15 02/04/23 05:15 94 02/04/23 05:10 95 02/04/23 05:00 94 02/04/23 05:00 02/04/23 04:50 94 02/04/23 04:45 02/04/23 04:45 95 02/04/23 04:40 96 02/04/23 04:30 96 02/04/23 04:30 02/04/23 04:28 96 02/04/23 04:28 02/04/23 04:20 72 L 02/04/23 04:15 02/04/23 04:15 92 02/04/23 04:10 94 02/04/23 04:00 98 02/04/23 04:00 02/04/23 03:50 98 02/04/23 03:40 94 02/04/23 03:30 97 02/04/23 03:30 02/04/23 03:20 98 02/04/23 03:16 02/04/23 03:16 96 02/04/23 03:10 97 02/04/23 03:00 95 02/04/23 03:00 02/04/23 02:52 96 02/04/23 02:52 02/04/23 02:50 96 02/04/23 02:45 02/04/23 02:45 95 02/04/23 02:40 97 02/04/23 02:30 97 02/04/23 02:30 02/04/23 02:20 94 02/04/23 02:15 95 02/04/23 02:15 02/04/23 02:10 96 02/04/23 02:00 93 02/04/23 02:00 02/04/23 01:50 95 02/04/23 01:40 93 02/04/23 01:30 92 02/04/23 05:00 93 Mechanical Vent 50 02/04/23 04:00 96 Mechanical Vent 50 02/04/23 04:00 50 02/04/23 03:00 50 02/04/23 02:35 96 60 02/04/23 00:00 60 Laboratory Results 02/04/23 02/04/23 02/04/23 Range/Units 14:28 07:13 04:42 WBC (4.8-10.8) K/ul RBC (4.70-6.10) M/uL Hgb (14.0-18.0) g/dl Hct (42.0-52.0) % MCV (80.0-100.0) fL MCH (25.0-34.0) pg MCHC (32.0-36.0) g/dL RDW Std Deviation (36.4-46.3) fL RDW Coeff of Lacey (11.5-14.5) % Plt Count (130-400) K/uL MPV (9.4-12.4) fL Immature Gran % (Auto) % Neut % (Auto) % Lymph % (Auto) % [place] % (Auto) % Eos % (Auto) % Baso % (Auto) % Neut # (Auto) (1.40-6.50) K/uL Lymph # (Auto) (1.2-3.4) K/uL [place] # (Auto) (0.11-0.59) K/uL Eos # (Auto) (0-0.50) K/uL Baso # (Auto) (0-0.2) K/uL Immature Gran # (Auto) (0.01-0.20) K/uL PT 14.6 H (9.0-12.0) Seconds INR 1.4 H (0.9-1.1) Sodium 153 H (136-145) mmol/L Potassium 4.4 (3.5-5.1) mmol/L Chloride 116 H (98-107) mmol/L Carbon Dioxide 24 (21-32) mmol/L Anion Gap 13 H (3-11) BUN 115 H (6-23) mg/dl Creatinine 5.55 H* D (0.6-1.4) mg/dl Est Cr Clr Drug Dosing 10.3 Est GFR ( Amer) 9.8 ml/min Est GFR (Non-Af Amer) 8.5 ml/min BUN/Creatinine Ratio 20.7 H (10-20) Glucose 311 H* (70-99(Fasting)) mg/dl POC Glucose (70-99) mg/dl Lactate (0.4-2.0) mmol/L Calcium 7.6 L (8.5-10.1) mg/dl Phosphorus (2.5-4.9) mg/dl Magnesium (1.7-2.4) mg/dl Total Bilirubin (0.2-1.0) mg/dl AST (13-39) U/L ALT (7-52) U/L Alkaline Phosphatase (34-104) U/L Troponin I High Sens (0-20) pg/ml Total Protein (6.0-8.3) gm/dl Albumin (3.4-5.0) gm/dl Globulin (2.5-4.0) gm/dl Albumin/Globulin Ratio (0.9-2) Lipase (11-82) U/L Procalcitonin (0-0.5) ng/ml Random Cortisol mcg/dl Urine Color Urine Appearance (Clear) Urine pH (4.5-7.5) Ur Specific [place] (1.000-1.030) Urine Protein (Negative) Urine Glucose (UA) (Negative) Urine Ketones (Negative) Urine Blood (Negative) Urine Nitrite (Negative) Urine Bilirubin (Negative) Urine Urobilinogen (Negative) Ur Leukocyte Esterase (Negative) Urine WBC (Auto) (0-5) /hpf Urine RBC (Auto) (0-4) /hpf U Hyaline Cast (Auto) (0-5) /lpf U Epithel Cells (Auto) (0-5) /lpf Urine Bacteria (Auto) (Negative) Urine Crystals Urine Yeast Nasal Screen MRSA (PCR) (Negative) Random Vancomycin (10-20) mcg/ml Adenovirus (PCR) (NotDetected) B. pertussis DNA (PCR) (NotDetected) B.parapertussis DNA PCR (NotDetected) C. pneumoniae DNA (PCR) (NotDetected) Coronavirus OC43 (PCR) (NotDetected) Coronavirus HKU1 (PCR) (NotDetected) Coronavirus 229E (PCR) (NotDetected) SARS-CoV-2 (PCR) (NotDetected) Coronavirus NL63 (PCR) (NotDetected) Human Metapneumovir PCR (NotDetected) Influenza Type A (PCR) (NotDetected) Influenza Type B (PCR) (NotDetected) M. pneumoniae (PCR) (NotDetected) Parainfluenza 1 (PCR) (NotDetected) Parainfluenza 2 (PCR) (NotDetected) Parainfluenza 3 (PCR) (NotDetected) Parainfluenza 4 (PCR) (NotDetected) RSV (PCR) (NotDetected) Entero/Rhino (PCR) (NotDetected) Staphylococcus sp PCR DETECTED A (NotDetected) mecA/C-Methicil Resis Gene DETECTED A (NotDetected) Staph epidermidis (PCR) DETECTED A (NotDetected) Bld Cult ID Panel PCR See PCR Comment (NotDetected) 02/04/23 02/04/23 02/04/23 Range/Units 04:42 04:42 04:42 WBC 25.25 H (4.8-10.8) K/ul RBC 4.03 L (4.70-6.10) M/uL Hgb 12.3 L D (14.0-18.0) g/dl Hct 39.3 L (42.0-52.0) % MCV 97.5 (80.0-100.0) fL MCH 30.5 (25.0-34.0) pg MCHC 31.3 L (32.0-36.0) g/dL RDW Std Deviation 51.2 H (36.4-46.3) fL RDW Coeff of Lacey 14.3 (11.5-14.5) % Plt Count 187 (130-400) K/uL MPV 13.0 H (9.4-12.4) fL Immature Gran % (Auto) % Neut % (Auto) % Lymph % (Auto) % [place] % (Auto) % Eos % (Auto) % Baso % (Auto) % Neut # (Auto) (1.40-6.50) K/uL Lymph # (Auto) (1.2-3.4) K/uL [place] # (Auto) (0.11-0.59) K/uL Eos # (Auto) (0-0.50) K/uL Baso # (Auto) (0-0.2) K/uL Immature Gran # (Auto) (0.01-0.20) K/uL PT (9.0-12.0) Seconds INR (0.9-1.1) Sodium 152 H (136-145) mmol/L Potassium 4.3 (3.5-5.1) mmol/L Chloride 115 H (98-107) mmol/L Carbon Dioxide 23 (21-32) mmol/L Anion Gap 14 H (3-11) BUN 113 H (6-23) mg/dl Creatinine 5.23 H* (0.6-1.4) mg/dl Est Cr Clr Drug Dosing 11.0 Est GFR ( Amer) 10.6 ml/min Est GFR (Non-Af Amer) 9.1 ml/min BUN/Creatinine Ratio 21.6 H (10-20) Glucose 358 H* (70-99(Fasting)) mg/dl POC Glucose (70-99) mg/dl Lactate (0.4-2.0) mmol/L Calcium 7.6 L (8.5-10.1) mg/dl Phosphorus 6.4 H (2.5-4.9) mg/dl Magnesium 2.3 (1.7-2.4) mg/dl Total Bilirubin 0.6 (0.2-1.0) mg/dl AST 92 H (13-39) U/L ALT 49 (7-52) U/L Alkaline Phosphatase 71 (34-104) U/L Troponin I High Sens 308.5 H* D (0-20) pg/ml Total Protein 6.3 D (6.0-8.3) gm/dl Albumin 2.6 L (3.4-5.0) gm/dl Globulin 3.7 (2.5-4.0) gm/dl Albumin/Globulin Ratio 0.7 L (0.9-2) Lipase (11-82) U/L Procalcitonin (0-0.5) ng/ml Random Cortisol mcg/dl Urine Color Urine Appearance (Clear) Urine pH (4.5-7.5) Ur Specific [place] (1.000-1.030) Urine Protein (Negative) Urine Glucose (UA) (Negative) Urine Ketones (Negative) Urine Blood (Negative) Urine Nitrite (Negative) Urine Bilirubin (Negative) Urine Urobilinogen (Negative) Ur Leukocyte Esterase (Negative) Urine WBC (Auto) (0-5) /hpf Urine RBC (Auto) (0-4) /hpf U Hyaline Cast (Auto) (0-5) /lpf U Epithel Cells (Auto) (0-5) /lpf Urine Bacteria (Auto) (Negative) Urine Crystals Urine Yeast Nasal Screen MRSA (PCR) (Negative) Random Vancomycin 9.1 L (10-20) mcg/ml Adenovirus (PCR) (NotDetected) B. pertussis DNA (PCR) (NotDetected) B.parapertussis DNA PCR (NotDetected) C. pneumoniae DNA (PCR) (NotDetected) Coronavirus OC43 (PCR) (NotDetected) Coronavirus HKU1 (PCR) (NotDetected) Coronavirus 229E (PCR) (NotDetected) SARS-CoV-2 (PCR) (NotDetected) Coronavirus NL63 (PCR) (NotDetected) Human Metapneumovir PCR (NotDetected) Influenza Type A (PCR) (NotDetected) Influenza Type B (PCR) (NotDetected) M. pneumoniae (PCR) (NotDetected) Parainfluenza 1 (PCR) (NotDetected) Parainfluenza 2 (PCR) (NotDetected) Parainfluenza 3 (PCR) (NotDetected) Parainfluenza 4 (PCR) (NotDetected) RSV (PCR) (NotDetected) Entero/Rhino (PCR) (NotDetected) Staphylococcus sp PCR (NotDetected) mecA/C-Methicil Resis Gene (NotDetected) Staph epidermidis (PCR) (NotDetected) Bld Cult ID Panel PCR (NotDetected) 02/04/23 02/04/23 02/03/23 Range/Units 01:50 01:50 22:35 WBC (4.8-10.8) K/ul RBC (4.70-6.10) M/uL Hgb (14.0-18.0) g/dl Hct (42.0-52.0) % MCV (80.0-100.0) fL MCH (25.0-34.0) pg MCHC (32.0-36.0) g/dL RDW Std Deviation (36.4-46.3) fL RDW Coeff of Lacey (11.5-14.5) % Plt Count (130-400) K/uL MPV (9.4-12.4) fL Immature Gran % (Auto) % Neut % (Auto) % Lymph % (Auto) % [place] % (Auto) % Eos % (Auto) % Baso % (Auto) % Neut # (Auto) (1.40-6.50) K/uL Lymph # (Auto) (1.2-3.4) K/uL [place] # (Auto) (0.11-0.59) K/uL Eos # (Auto) (0-0.50) K/uL Baso # (Auto) (0-0.2) K/uL Immature Gran # (Auto) (0.01-0.20) K/uL PT (9.0-12.0) Seconds INR (0.9-1.1) Sodium 155 H 156 H* (136-145) mmol/L Potassium 4.4 4.3 (3.5-5.1) mmol/L Chloride 117 H 119 H (98-107) mmol/L Carbon Dioxide 24 24 (21-32) mmol/L Anion Gap 14 H 13 H (3-11) BUN 112 H 111 H (6-23) mg/dl Creatinine 5.41 H* 5.39 H* (0.6-1.4) mg/dl Est Cr Clr Drug Dosing 10.6 10.6 Est GFR ( Amer) 10.1 10.2 ml/min Est GFR (Non-Af Amer) 8.8 8.8 ml/min BUN/Creatinine Ratio 20.7 H 20.6 H (10-20) Glucose 301 H* 274 H (70-99(Fasting)) mg/dl POC Glucose (70-99) mg/dl Lactate (0.4-2.0) mmol/L Calcium 7.7 L 7.6 L (8.5-10.1) mg/dl Phosphorus (2.5-4.9) mg/dl Magnesium (1.7-2.4) mg/dl Total Bilirubin (0.2-1.0) mg/dl AST (13-39) U/L ALT (7-52) U/L Alkaline Phosphatase (34-104) U/L Troponin I High Sens (0-20) pg/ml Total Protein (6.0-8.3) gm/dl Albumin (3.4-5.0) gm/dl Globulin (2.5-4.0) gm/dl Albumin/Globulin Ratio (0.9-2) Lipase (11-82) U/L Procalcitonin (0-0.5) ng/ml Random Cortisol 31.28 mcg/dl Urine Color Urine Appearance (Clear) Urine pH (4.5-7.5) Ur Specific [place] (1.000-1.030) Urine Protein (Negative) Urine Glucose (UA) (Negative) Urine Ketones (Negative) Urine Blood (Negative) Urine Nitrite (Negative) Urine Bilirubin (Negative) Urine Urobilinogen (Negative) Ur Leukocyte Esterase (Negative) Urine WBC (Auto) (0-5) /hpf Urine RBC (Auto) (0-4) /hpf U Hyaline Cast (Auto) (0-5) /lpf U Epithel Cells (Auto) (0-5) /lpf Urine Bacteria (Auto) (Negative) Urine Crystals Urine Yeast Nasal Screen MRSA (PCR) (Negative) Random Vancomycin (10-20) mcg/ml Adenovirus (PCR) (NotDetected) B. pertussis DNA (PCR) (NotDetected) B.parapertussis DNA PCR (NotDetected) C. pneumoniae DNA (PCR) (NotDetected) Coronavirus OC43 (PCR) (NotDetected) Coronavirus HKU1 (PCR) (NotDetected) Coronavirus 229E (PCR) (NotDetected) SARS-CoV-2 (PCR) (NotDetected) Coronavirus NL63 (PCR) (NotDetected) Human Metapneumovir PCR (NotDetected) Influenza Type A (PCR) (NotDetected) Influenza Type B (PCR) (NotDetected) M. pneumoniae (PCR) (NotDetected) Parainfluenza 1 (PCR) (NotDetected) Parainfluenza 2 (PCR) (NotDetected) Parainfluenza 3 (PCR) (NotDetected) Parainfluenza 4 (PCR) (NotDetected) RSV (PCR) (NotDetected) Entero/Rhino (PCR) (NotDetected) Staphylococcus sp PCR (NotDetected) mecA/C-Methicil Resis Gene (NotDetected) Staph epidermidis (PCR) (NotDetected) Bld Cult ID Panel PCR (NotDetected) 02/03/23 02/03/23 02/03/23 Range/Units 21:26 19:37 19:34 WBC (4.8-10.8) K/ul RBC (4.70-6.10) M/uL Hgb (14.0-18.0) g/dl Hct (42.0-52.0) % MCV (80.0-100.0) fL MCH (25.0-34.0) pg MCHC (32.0-36.0) g/dL RDW Std Deviation (36.4-46.3) fL RDW Coeff of Lacey (11.5-14.5) % Plt Count (130-400) K/uL MPV (9.4-12.4) fL Immature Gran % (Auto) % Neut % (Auto) % Lymph % (Auto) % [place] % (Auto) % Eos % (Auto) % Baso % (Auto) % Neut # (Auto) (1.40-6.50) K/uL Lymph # (Auto) (1.2-3.4) K/uL [place] # (Auto) (0.11-0.59) K/uL Eos # (Auto) (0-0.50) K/uL Baso # (Auto) (0-0.2) K/uL Immature Gran # (Auto) (0.01-0.20) K/uL PT (9.0-12.0) Seconds INR (0.9-1.1) Sodium 160 H* (136-145) mmol/L Potassium 4.3 (3.5-5.1) mmol/L Chloride 121 H (98-107) mmol/L Carbon Dioxide 25 (21-32) mmol/L Anion Gap 14 H (3-11) BUN 111 H (6-23) mg/dl Creatinine 5.64 H* (0.6-1.4) mg/dl Est Cr Clr Drug Dosing 10.2 Est GFR ( Amer) 9.6 ml/min Est GFR (Non-Af Amer) 8.3 ml/min BUN/Creatinine Ratio 19.7 (10-20) Glucose 203 H (70-99(Fasting)) mg/dl POC Glucose (70-99) mg/dl Lactate 2.6 H* 2.8 H* (0.4-2.0) mmol/L Calcium 8.0 L (8.5-10.1) mg/dl Phosphorus (2.5-4.9) mg/dl Magnesium (1.7-2.4) mg/dl Total Bilirubin (0.2-1.0) mg/dl AST (13-39) U/L ALT (7-52) U/L Alkaline Phosphatase (34-104) U/L Troponin I High Sens (0-20) pg/ml Total Protein (6.0-8.3) gm/dl Albumin (3.4-5.0) gm/dl Globulin (2.5-4.0) gm/dl Albumin/Globulin Ratio (0.9-2) Lipase (11-82) U/L Procalcitonin (0-0.5) ng/ml Random Cortisol mcg/dl Urine Color Urine Appearance (Clear) Urine pH (4.5-7.5) Ur Specific [place] (1.000-1.030) Urine Protein (Negative) Urine Glucose (UA) (Negative) Urine Ketones (Negative) Urine Blood (Negative) Urine Nitrite (Negative) Urine Bilirubin (Negative) Urine Urobilinogen (Negative) Ur Leukocyte Esterase (Negative) Urine WBC (Auto) (0-5) /hpf Urine RBC (Auto) (0-4) /hpf U Hyaline Cast (Auto) (0-5) /lpf U Epithel Cells (Auto) (0-5) /lpf Urine Bacteria (Auto) (Negative) Urine Crystals Urine Yeast Nasal Screen MRSA (PCR) (Negative) Random Vancomycin (10-20) mcg/ml Adenovirus (PCR) (NotDetected) B. pertussis DNA (PCR) (NotDetected) B.parapertussis DNA PCR (NotDetected) C. pneumoniae DNA (PCR) (NotDetected) Coronavirus OC43 (PCR) (NotDetected) Coronavirus HKU1 (PCR) (NotDetected) Coronavirus 229E (PCR) (NotDetected) SARS-CoV-2 (PCR) (NotDetected) Coronavirus NL63 (PCR) (NotDetected) Human Metapneumovir PCR (NotDetected) Influenza Type A (PCR) (NotDetected) Influenza Type B (PCR) (NotDetected) M. pneumoniae (PCR) (NotDetected) Parainfluenza 1 (PCR) (NotDetected) Parainfluenza 2 (PCR) (NotDetected) Parainfluenza 3 (PCR) (NotDetected) Parainfluenza 4 (PCR) (NotDetected) RSV (PCR) (NotDetected) Entero/Rhino (PCR) (NotDetected) Staphylococcus sp PCR (NotDetected) mecA/C-Methicil Resis Gene (NotDetected) Staph epidermidis (PCR) (NotDetected) Bld Cult ID Panel PCR (NotDetected) 02/03/23 02/03/23 02/03/23 Range/Units 19:33 17:31 16:50 WBC (4.8-10.8) K/ul RBC (4.70-6.10) M/uL Hgb (14.0-18.0) g/dl Hct (42.0-52.0) % MCV (80.0-100.0) fL MCH (25.0-34.0) pg MCHC (32.0-36.0) g/dL RDW Std Deviation (36.4-46.3) fL RDW Coeff of Lacey (11.5-14.5) % Plt Count (130-400) K/uL MPV (9.4-12.4) fL Immature Gran % (Auto) % Neut % (Auto) % Lymph % (Auto) % [place] % (Auto) % Eos % (Auto) % Baso % (Auto) % Neut # (Auto) (1.40-6.50) K/uL Lymph # (Auto) (1.2-3.4) K/uL [place] # (Auto) (0.11-0.59) K/uL Eos # (Auto) (0-0.50) K/uL Baso # (Auto) (0-0.2) K/uL Immature Gran # (Auto) (0.01-0.20) K/uL PT (9.0-12.0) Seconds INR (0.9-1.1) Sodium (136-145) mmol/L Potassium (3.5-5.1) mmol/L Chloride (98-107) mmol/L Carbon Dioxide (21-32) mmol/L Anion Gap (3-11) BUN (6-23) mg/dl Creatinine (0.6-1.4) mg/dl Est Cr Clr Drug Dosing Est GFR ( Amer) ml/min Est GFR (Non-Af Amer) ml/min BUN/Creatinine Ratio (10-20) Glucose (70-99(Fasting)) mg/dl POC Glucose 162 H (70-99) mg/dl Lactate 3.9 H* (0.4-2.0) mmol/L Calcium (8.5-10.1) mg/dl Phosphorus (2.5-4.9) mg/dl Magnesium (1.7-2.4) mg/dl Total Bilirubin (0.2-1.0) mg/dl AST (13-39) U/L ALT (7-52) U/L Alkaline Phosphatase (34-104) U/L Troponin I High Sens (0-20) pg/ml Total Protein (6.0-8.3) gm/dl Albumin (3.4-5.0) gm/dl Globulin (2.5-4.0) gm/dl Albumin/Globulin Ratio (0.9-2) Lipase (11-82) U/L Procalcitonin (0-0.5) ng/ml Random Cortisol mcg/dl Urine Color Urine Appearance (Clear) Urine pH (4.5-7.5) Ur Specific [place] (1.000-1.030) Urine Protein (Negative) Urine Glucose (UA) (Negative) Urine Ketones (Negative) Urine Blood (Negative) Urine Nitrite (Negative) Urine Bilirubin (Negative) Urine Urobilinogen (Negative) Ur Leukocyte Esterase (Negative) Urine WBC (Auto) (0-5) /hpf Urine RBC (Auto) (0-4) /hpf U Hyaline Cast (Auto) (0-5) /lpf U Epithel Cells (Auto) (0-5) /lpf Urine Bacteria (Auto) (Negative) Urine Crystals Urine Yeast Nasal Screen MRSA (PCR) Negative (Negative) Random Vancomycin (10-20) mcg/ml Adenovirus (PCR) (NotDetected) B. pertussis DNA (PCR) (NotDetected) B.parapertussis DNA PCR (NotDetected) C. pneumoniae DNA (PCR) (NotDetected) Coronavirus OC43 (PCR) (NotDetected) Coronavirus HKU1 (PCR) (NotDetected) Coronavirus 229E (PCR) (NotDetected) SARS-CoV-2 (PCR) (NotDetected) Coronavirus NL63 (PCR) (NotDetected) Human Metapneumovir PCR (NotDetected) Influenza Type A (PCR) (NotDetected) Influenza Type B (PCR) (NotDetected) M. pneumoniae (PCR) (NotDetected) Parainfluenza 1 (PCR) (NotDetected) Parainfluenza 2 (PCR) (NotDetected) Parainfluenza 3 (PCR) (NotDetected) Parainfluenza 4 (PCR) (NotDetected) RSV (PCR) (NotDetected) Entero/Rhino (PCR) (NotDetected) Staphylococcus sp PCR (NotDetected) mecA/C-Methicil Resis Gene (NotDetected) Staph epidermidis (PCR) (NotDetected) Bld Cult ID Panel PCR (NotDetected) 02/03/23 02/03/23 02/03/23 Range/Units 16:12 14:30 14:28 WBC (4.8-10.8) K/ul RBC (4.70-6.10) M/uL Hgb (14.0-18.0) g/dl Hct (42.0-52.0) % MCV (80.0-100.0) fL MCH (25.0-34.0) pg MCHC (32.0-36.0) g/dL RDW Std Deviation (36.4-46.3) fL RDW Coeff of Lacey (11.5-14.5) % Plt Count (130-400) K/uL MPV (9.4-12.4) fL Immature Gran % (Auto) % Neut % (Auto) % Lymph % (Auto) % [place] % (Auto) % Eos % (Auto) % Baso % (Auto) % Neut # (Auto) (1.40-6.50) K/uL Lymph # (Auto) (1.2-3.4) K/uL [place] # (Auto) (0.11-0.59) K/uL Eos # (Auto) (0-0.50) K/uL Baso # (Auto) (0-0.2) K/uL Immature Gran # (Auto) (0.01-0.20) K/uL PT (9.0-12.0) Seconds INR (0.9-1.1) Sodium (136-145) mmol/L Potassium (3.5-5.1) mmol/L Chloride (98-107) mmol/L Carbon Dioxide (21-32) mmol/L Anion Gap (3-11) BUN (6-23) mg/dl Creatinine (0.6-1.4) mg/dl Est Cr Clr Drug Dosing Est GFR ( Amer) ml/min Est GFR (Non-Af Amer) ml/min BUN/Creatinine Ratio (10-20) Glucose (70-99(Fasting)) mg/dl POC Glucose (70-99) mg/dl Lactate (0.4-2.0) mmol/L Calcium (8.5-10.1) mg/dl Phosphorus (2.5-4.9) mg/dl Magnesium (1.7-2.4) mg/dl Total Bilirubin (0.2-1.0) mg/dl AST (13-39) U/L ALT (7-52) U/L Alkaline Phosphatase (34-104) U/L Troponin I High Sens (0-20) pg/ml Total Protein (6.0-8.3) gm/dl Albumin (3.4-5.0) gm/dl Globulin (2.5-4.0) gm/dl Albumin/Globulin Ratio (0.9-2) Lipase (11-82) U/L Procalcitonin 9.05 H (0-0.5) ng/ml Random Cortisol mcg/dl Urine Color Dark Yellow Urine Appearance Turbid A (Clear) Urine pH 7.0 (4.5-7.5) Ur Specific [place] 1.022 (1.000-1.030) Urine Protein 3+ H (Negative) Urine Glucose (UA) Negative (Negative) Urine Ketones Trace H (Negative) Urine Blood 3+ H (Negative) Urine Nitrite Positive A (Negative) Urine Bilirubin 1+ H (Negative) Urine Urobilinogen Negative (Negative) Ur Leukocyte Esterase 3+ H (Negative) Urine WBC (Auto) >30 H (0-5) /hpf Urine RBC (Auto) 10-30 H (0-4) /hpf U Hyaline Cast (Auto) 0 (0-5) /lpf U Epithel Cells (Auto) >30 H (0-5) /lpf Urine Bacteria (Auto) 4+ H (Negative) Urine Crystals Not Reportable Urine Yeast Not Reportable Nasal Screen MRSA (PCR) (Negative) Random Vancomycin (10-20) mcg/ml Adenovirus (PCR) Not Detected (NotDetected) B. pertussis DNA (PCR) Not Detected (NotDetected) B.parapertussis DNA PCR Not Detected (NotDetected) C. pneumoniae DNA (PCR) Not Detected (NotDetected) Coronavirus OC43 (PCR) Not Detected (NotDetected) Coronavirus HKU1 (PCR) Not Detected (NotDetected) Coronavirus 229E (PCR) Not Detected (NotDetected) SARS-CoV-2 (PCR) Not Detected (NotDetected) Coronavirus NL63 (PCR) Not Detected (NotDetected) Human Metapneumovir PCR Not Detected (NotDetected) Influenza Type A (PCR) Not Detected (NotDetected) Influenza Type B (PCR) Not Detected (NotDetected) M. pneumoniae (PCR) Not Detected (NotDetected) Parainfluenza 1 (PCR) Not Detected (NotDetected) Parainfluenza 2 (PCR) Not Detected (NotDetected) Parainfluenza 3 (PCR) Not Detected (NotDetected) Parainfluenza 4 (PCR) Not Detected (NotDetected) RSV (PCR) Not Detected (NotDetected) Entero/Rhino (PCR) Not Detected (NotDetected) Staphylococcus sp PCR (NotDetected) mecA/C-Methicil Resis Gene (NotDetected) Staph epidermidis (PCR) (NotDetected) Bld Cult ID Panel PCR (NotDetected) 02/03/23 02/03/23 02/03/23 Range/Units 14:28 14:28 14:28 WBC (4.8-10.8) K/ul RBC (4.70-6.10) M/uL Hgb (14.0-18.0) g/dl Hct (42.0-52.0) % MCV (80.0-100.0) fL MCH (25.0-34.0) pg MCHC (32.0-36.0) g/dL RDW Std Deviation (36.4-46.3) fL RDW Coeff of Lacey (11.5-14.5) % Plt Count (130-400) K/uL MPV (9.4-12.4) fL Immature Gran % (Auto) % Neut % (Auto) % Lymph % (Auto) % [place] % (Auto) % Eos % (Auto) % Baso % (Auto) % Neut # (Auto) (1.40-6.50) K/uL Lymph # (Auto) (1.2-3.4) K/uL Dubois # (Auto) (0.11-0.59) K/uL Eos # (Auto) (0-0.50) K/uL Baso # (Auto) (0-0.2) K/uL Immature Gran # (Auto) (0.01-0.20) K/uL PT 14.0 H (9.0-12.0) Seconds INR 1.3 H (0.9-1.1) Sodium 164 H* (136-145) mmol/L Potassium 4.6 (3.5-5.1) mmol/L Chloride 121 H (98-107) mmol/L Carbon Dioxide 27 (21-32) mmol/L Anion Gap 16 H (3-11) BUN 119 H (6-23) mg/dl Creatinine 5.93 H* (0.6-1.4) mg/dl Est Cr Clr Drug Dosing Not Reportable Est GFR ( Amer) 9.1 ml/min Est GFR (Non-Af Amer) 7.8 ml/min BUN/Creatinine Ratio 20.1 H (10-20) Glucose 157 H (70-99(Fasting)) mg/dl POC Glucose (70-99) mg/dl Lactate 2.8 H* (0.4-2.0) mmol/L Calcium 9.0 (8.5-10.1) mg/dl Phosphorus (2.5-4.9) mg/dl Magnesium (1.7-2.4) mg/dl Total Bilirubin 0.6 (0.2-1.0) mg/dl AST 135 H (13-39) U/L ALT 57 H (7-52) U/L Alkaline Phosphatase 80 (34-104) U/L Troponin I High Sens 478.2 H* (0-20) pg/ml Total Protein 8.6 H (6.0-8.3) gm/dl Albumin 3.6 (3.4-5.0) gm/dl Globulin 5.0 H (2.5-4.0) gm/dl Albumin/Globulin Ratio 0.7 L (0.9-2) Lipase 21 (11-82) U/L Procalcitonin (0-0.5) ng/ml Random Cortisol mcg/dl Urine Color Urine Appearance (Clear) Urine pH (4.5-7.5) Ur Specific [place] (1.000-1.030) Urine Protein (Negative) Urine Glucose (UA) (Negative) Urine Ketones (Negative) Urine Blood (Negative) Urine Nitrite (Negative) Urine Bilirubin (Negative) Urine Urobilinogen (Negative) Ur Leukocyte Esterase (Negative) Urine WBC (Auto) (0-5) /hpf Urine RBC (Auto) (0-4) /hpf U Hyaline Cast (Auto) (0-5) /lpf U Epithel Cells (Auto) (0-5) /lpf Urine Bacteria (Auto) (Negative) Urine Crystals Urine Yeast Nasal Screen MRSA (PCR) (Negative) Random Vancomycin (10-20) mcg/ml Adenovirus (PCR) (NotDetected) B. pertussis DNA (PCR) (NotDetected) B.parapertussis DNA PCR (NotDetected) C. pneumoniae DNA (PCR) (NotDetected) Coronavirus OC43 (PCR) (NotDetected) Coronavirus HKU1 (PCR) (NotDetected) Coronavirus 229E (PCR) (NotDetected) SARS-CoV-2 (PCR) (NotDetected) Coronavirus NL63 (PCR) (NotDetected) Human Metapneumovir PCR (NotDetected) Influenza Type A (PCR) (NotDetected) Influenza Type B (PCR) (NotDetected) M. pneumoniae (PCR) (NotDetected) Parainfluenza 1 (PCR) (NotDetected) Parainfluenza 2 (PCR) (NotDetected) Parainfluenza 3 (PCR) (NotDetected) Parainfluenza 4 (PCR) (NotDetected) RSV (PCR) (NotDetected) Entero/Rhino (PCR) (NotDetected) Staphylococcus sp PCR (NotDetected) mecA/C-Methicil Resis Gene (NotDetected) Staph epidermidis (PCR) (NotDetected) Bld Cult ID Panel PCR (NotDetected) 02/03/23 Range/Units 14:28 WBC 26.51 H (4.8-10.8) K/ul RBC 5.36 (4.70-6.10) M/uL Hgb 16.5 (14.0-18.0) g/dl Hct 52.0 (42.0-52.0) % MCV 97.0 (80.0-100.0) fL MCH 30.8 (25.0-34.0) pg MCHC 31.7 L (32.0-36.0) g/dL RDW Std Deviation 51.4 H (36.4-46.3) fL RDW Coeff of Lacey 14.5 (11.5-14.5) % Plt Count 237 (130-400) K/uL MPV 12.3 (9.4-12.4) fL Immature Gran % (Auto) 1.1 % Neut % (Auto) 90.8 % Lymph % (Auto) 4.3 % Dubois % (Auto) 3.5 % Eos % (Auto) 0.0 % Baso % (Auto) 0.3 % Neut # (Auto) 24.04 H (1.40-6.50) K/uL Lymph # (Auto) 1.15 L (1.2-3.4) K/uL Dubois # (Auto) 0.93 H (0.11-0.59) K/uL Eos # (Auto) 0.00 (0-0.50) K/uL Baso # (Auto) 0.09 (0-0.2) K/uL Immature Gran # (Auto) 0.30 H (0.01-0.20) K/uL PT (9.0-12.0) Seconds INR (0.9-1.1) Sodium (136-145) mmol/L Potassium (3.5-5.1) mmol/L Chloride (98-107) mmol/L Carbon Dioxide (21-32) mmol/L Anion Gap (3-11) BUN (6-23) mg/dl Creatinine (0.6-1.4) mg/dl Est Cr Clr Drug Dosing Est GFR ( Amer) ml/min Est GFR (Non-Af Amer) ml/min BUN/Creatinine Ratio (10-20) Glucose (70-99(Fasting)) mg/dl POC Glucose (70-99) mg/dl Lactate (0.4-2.0) mmol/L Calcium (8.5-10.1) mg/dl Phosphorus (2.5-4.9) mg/dl Magnesium (1.7-2.4) mg/dl Total Bilirubin (0.2-1.0) mg/dl AST (13-39) U/L ALT (7-52) U/L Alkaline Phosphatase (34-104) U/L Troponin I High Sens (0-20) pg/ml Total Protein (6.0-8.3) gm/dl Albumin (3.4-5.0) gm/dl Globulin (2.5-4.0) gm/dl Albumin/Globulin Ratio (0.9-2) Lipase (11-82) U/L Procalcitonin (0-0.5) ng/ml Random Cortisol mcg/dl Urine Color Urine Appearance (Clear) Urine pH (4.5-7.5) Ur Specific [place] (1.000-1.030) Urine Protein (Negative) Urine Glucose (UA) (Negative) Urine Ketones (Negative) Urine Blood (Negative) Urine Nitrite (Negative) Urine Bilirubin (Negative) Urine Urobilinogen (Negative) Ur Leukocyte Esterase (Negative) Urine WBC (Auto) (0-5) /hpf Urine RBC (Auto) (0-4) /hpf U Hyaline Cast (Auto) (0-5) /lpf U Epithel Cells (Auto) (0-5) /lpf Urine Bacteria (Auto) (Negative) Urine Crystals Urine Yeast Nasal Screen MRSA (PCR) (Negative) Random Vancomycin (10-20) mcg/ml Adenovirus (PCR) (NotDetected) B. pertussis DNA (PCR) (NotDetected) B.parapertussis DNA PCR (NotDetected) C. pneumoniae DNA (PCR) (NotDetected) Coronavirus OC43 (PCR) (NotDetected) Coronavirus HKU1 (PCR) (NotDetected) Coronavirus 229E (PCR) (NotDetected) SARS-CoV-2 (PCR) (NotDetected) Coronavirus NL63 (PCR) (NotDetected) Human Metapneumovir PCR (NotDetected) Influenza Type A (PCR) (NotDetected) Influenza Type B (PCR) (NotDetected) M. pneumoniae (PCR) (NotDetected) Parainfluenza 1 (PCR) (NotDetected) Parainfluenza 2 (PCR) (NotDetected) Parainfluenza 3 (PCR) (NotDetected) Parainfluenza 4 (PCR) (NotDetected) RSV (PCR) (NotDetected) Entero/Rhino (PCR) (NotDetected) Staphylococcus sp PCR (NotDetected) mecA/C-Methicil Resis Gene (NotDetected) Staph epidermidis (PCR) (NotDetected) Bld Cult ID Panel PCR (NotDetected) Medications Administered Current Inpatient Medications Acetaminophen (Acetaminophen 325 Mg Tab) 650 mg PO Q4H PRN PRN Reason: Pain or Fever Stop: 03/05/23 15:43 Al Hydrox/Mg Hydrox/Simethicone (Aluminum/Magnesium Susp 30 Ml Udc) 15 ml PO Q4H PRN PRN Reason: Dyspepsia Stop: 03/05/23 15:43 Dextrose (Dextrose 50% 50 Ml Syringe) 25 - 50 ml IV UD PRN; Protocol PRN Reason: Hypoglycemia Protocol Stop: 03/05/23 21:01 Enteral Nutritional Formula (Novasource Renal 2.0 Jeremy 1000ml Bag) 1,000 ml OG UD FERNIE; Protocol Stop: 03/06/23 11:59 Fentanyl Citrate (Fentanyl Bolus From Bag) 50 mcg IV Q60M PRN PRN Reason: Pain or Agitation Stop: 02/18/23 09:36 Glucagon (Glucagon For Inj 1 Mg Vial) 1 mg SQ UD PRN; Protocol PRN Reason: Hypoglycemia Protocol Stop: 03/06/23 02:57 Glucose (Glucose 10 Tab/Tube) 4 - 8 tab PO UD PRN; Protocol PRN Reason: Hypoglycemia Treatment Stop: 03/05/23 21:01 Glucose (Glucose 40% Gel 15 Gm Tube) 15 - 30 gm PO UD PRN; Protocol PRN Reason: Hypoglycemia Protocol Stop: 03/05/23 21:01 Glycopyrrolate (Glycopyrrolate 0.2 Mg/Ml Vial) 0.2 mg IV Q3H PRN PRN Reason: secretions Stop: 03/05/23 16:47 Heparin Sodium (Porcine) (Heparin Sod 5,000 Unit/0.5 Ml Vial) 5,000 units SQ Q12 [facility] Stop: 03/06/23 10:29 Last Admin: 02/04/23 11:11 Dose: 5,000 units Norepinephrine Bitartrate (Levophed/D5w) 4 mg in 250 mls @ 13.313 mls/hr IV .[id number] [facility]; Protocol Stop: 03/05/23 14:44 Last Titration: 02/04/23 07:45 Dose: 0.2 mcg/kg/min, 53.3 mls/hr Thiamine HCl 100 mg/ Syringe 10 mls @ 2 mls/min IV QAM [facility] Stop: 03/06/23 08:59 Last Admin: 02/04/23 09:14 Dose: 2 mls/min Piperacillin Sod/Tazobactam (Sod 4.5 gm/ Dextrose) 120 mls @ 30 mls/hr IV Q12H [facility]; Protocol Stop: 02/10/23 00:00 Last Infusion: 02/04/23 04:14 Dose: Infused Vasopressin 20 units/ Sodium (Chloride) 101 mls @ 12.12 mls/hr IV .Q8H20M FERNIE Stop: 03/06/23 01:14 Last Infusion: 02/04/23 11:23 Dose: 0.04 unit/min, 12.1 mls/hr Lactated Ringer's (Lr) 1,000 mls @ 110 mls/hr IV .Q9H6M [facility] Stop: 03/06/23 06:14 Last Admin: 02/04/23 06:21 Dose: 110 mls/hr Pantoprazole Sodium 40 mg/ (Syringe) 10 mls @ 5 mls/min IV DAILY@1100 [facility] Stop: 03/06/23 10:59 Last Admin: 02/04/23 09:15 Dose: 5 mls/min Fentanyl Citrate (Fentanyl Citrate) 2,500 mcg in 250 mls @ 5 mls/hr IV .Q50H [facility]; Protocol Stop: 02/18/23 09:44 Last Titration: 02/04/23 10:34 Dose: 50 mcg/hr, 5 mls/hr Insulin Aspart (Insulin Aspart Per Unit) 0 units SC Q6 [facility] Stop: 03/06/23 05:59 Last Admin: 02/04/23 06:24 Dose: 8 units Magnesium Hydroxide (Magnesium Hydroxide Susp 30 Ml Udc) 30 ml PO Q12H PRN PRN Reason: Constipation Stop: 03/05/23 15:43 Miscellaneous (Carbohydrates For Hypoglycemia ) 15 - 30 gm PO UD PRN PRN Reason: Hypoglycemia Protocol Stop: 03/05/23 21:01 Miscellaneous (Icu Electrolyte Replacement Protocol) 1 each N/A UD PRN; Protocol PRN Reason: Hypoglycemia Protocol Stop: 03/05/23 21:01 Miscellaneous (Icu Protocol For Hyperglycemia) 1 each N/A ACHS [facility] Stop: 02/06/23 07:29 Last Admin: 02/04/23 11:11 Dose: 1 each Miscellaneous Information (Vancomycin Consult Active) 1 each N/A UD PRN PRN Reason: Consult Stop: 03/05/23 15:13 Ondansetron HCl (Ondansetron Inj 2 Mg/Ml 2 Ml Vial) 4 mg IV Q6H PRN PRN Reason: Nausea Stop: 03/05/23 15:43 Polyethylene Glycol (Polyethylene (Miralax) 17 Gm Pack) 17 gm PO DAILY PRN PRN Reason: Constipation Stop: 03/05/23 15:43 Sterile Water (Tube Feeding Water Flush) 30 ml OG Q4H [facility] Stop: 03/06/23 11:59
--- NOTE | 2023-02-04 11:59 | Palliative Care Consultation ---
Date of Consultation February 04, 2023 Assessment & Plan (1) Palliative care encounter: Septic shock with renal failure on vent support I spoke with his , Audelia, in [facility]. She is leaving shortly to travel to [place], [place] and then [place] but will not arrive until late tomorrow. She understands that her is critically ill and approaching his dying time. She is very hopeful that she will be able to see him before he dies. I explained that if he survives until her arrival, he would be sedated and unable to communicate with her. She is grateful for the care that he is receiving and understands that he is dying. She has requested that any change in status be communicated to her friend, Earl Leary, whose number is on the chart. He will attempt to contact her in transit. With her permission, I spoke to Mr. Ozuna's son, Chase Ozuna, in [place]. I updated him on his father's current status and plan to continue supportive care until Audelia arrives. Per discussion with Audelia, he would not have chest compressions or defibrillation and she has declined dialysis. I also spoke with Clare, at [facility] to determine whether he had an advance directive on file. She tells me that he did not have a living will. He had been DNR, on hospice care, prior to admission. Palliative care will follow. Discussed with RN. History of Present Illness Reason for Consultation: goals of care Requesting Physician: LORENA Elizalde Attending Physician: Jermaine Benítez MD History of Present Illness 87 yo gentleman with Lewy body dementia and Parkinson's disease who resides at [facility]. He also has CAD , SSS with pacemaker and chronic anemia. He was admitted in December with complicated UTI and had been discharged back to [facility] with hospice care. Yesterday he was transferred to ER from [facility] with septic shock and acute renal failure. His is currently in [facility] and had requested revocation of hospice with treatment. He is currently intubated with ventilatory support, as well as pressor support. Per RN, he had been restless earlier but currently appears comfortable on fentanyl infusion. Allergies Allergy/AdvReac Type Severity Reaction Status Date / Time No Known Allergies Allergy Verified 12/19/22 11:15 Home Medications Medication Instructions Recorded Confirmed Type atorvastatin 20 mg tablet (Lipitor) 20 mg PO QPM #30 tabs 09/11/21 02/03/23 Rx carbidopa 25 mg-levodopa 100 mg 1 tab PO BID #60 tabs 09/11/21 02/03/23 Rx tablet sennosides 8.6 mg-docusate sodium 1 tab PO QAM #30 tabs 09/11/21 02/03/23 Rx 50 mg tablet (Senokot-S) acetaminophen 325 mg tablet 650 mg PO Q4H PRN PAIN/FEVER 09/12/22 02/03/23 History (Tylenol) aspirin 81 mg tablet,delayed 81 mg PO QAM 09/12/22 02/03/23 History release donepezil 5 mg tablet 5 mg PO QAM 09/12/22 02/03/23 History metoprolol tartrate 25 mg tablet 25 mg PO QAM 09/12/22 02/03/23 History polyethylene glycol 3350 17 gram 17 g PO QAM 09/12/22 02/03/23 History oral powder packet (Miralax) Patient History Medical History Aortic aneurysm Aortic stenosis Atrial fibrillation CAD (coronary artery disease) Dementia Goals of care, counseling/discussion Hemolytic anemia HLD (hyperlipidemia) HTN (hypertension) Left rib fracture [facility] resident Pacemaker Pacemaker battery depletion Parkinsons disease Rhabdomyolysis Septic shock T12 compression fracture Surgical History H/O prosthetic heart valve History of cataract surgery right Hx of heart bypass surgery Social History Smoking Status: Unknown if ever smoked Hx Substance Use: No Preferred Language: Indian Communication Ability: Effective Visual Impairment: No Limitations Hearing Ability: Normal Underground Conduit Installer Required: No Beliefs That Will Affect Care: None marital status: Current Living Situation: Halfway Current Living Situation Comment: resident at [facility] Feels Safe at Home: Declines to Answer Assistive Devices: Wheelchair Review of Systems Review of Systems: Unobtainable due to cognitive status and Unobtainable due to endotracheal tube Physical Exam Constitutional: + ill appearing and + mechanically ventilated Cardiovascular: Rate/Rhythm: regular rate and regular rhythm hypotension Musculoskeletal: Extremities: + muscle atrophy Neurologic: + obtunded Results & Data Vital Signs (Past 12 Hours) Vital Signs Temp Pulse Pulse Resp BP BP BP 02/04/23 11:29 93/56 L 02/04/23 11:22 77/57 L 02/04/23 11:22 88/52 L 02/04/23 11:02 81 118/60 02/04/23 10:40 102/61 02/04/23 10:55 79 20 02/04/23 09:25 98.8 F 02/04/23 09:00 91/75 L 02/04/23 08:15 80/52 L 02/04/23 08:00 66 02/04/23 08:00 02/04/23 08:00 02/04/23 08:00 02/04/23 08:00 82 24 89/58 L 02/04/23 06:00 78 25 H 111/76 02/04/23 07:21 70 22 02/04/23 05:40 79 25 H 02/04/23 05:30 79 19 02/04/23 05:30 95/66 L 02/04/23 05:20 82 19 02/04/23 05:15 105/68 02/04/23 05:15 81 19 02/04/23 05:10 72 23 02/04/23 05:00 76 17 02/04/23 05:00 124/69 02/04/23 04:50 81 21 02/04/23 04:45 110/70 02/04/23 04:45 83 21 02/04/23 04:40 80 20 02/04/23 04:30 84 18 02/04/23 04:30 138/97 02/04/23 04:28 80 20 02/04/23 04:28 128/78 02/04/23 04:20 94 H 19 02/04/23 04:15 131/101 H 02/04/23 04:15 70 19 02/04/23 04:10 83 18 02/04/23 04:00 84 17 02/04/23 04:00 118/81 02/04/23 03:50 80 18 02/04/23 03:40 79 18 02/04/23 03:30 78 19 02/04/23 03:30 108/78 02/04/23 03:20 80 16 02/04/23 03:16 107/83 02/04/23 03:16 63 18 02/04/23 03:10 81 21 02/04/23 03:00 83 22 02/04/23 03:00 124/81 02/04/23 02:52 82 16 02/04/23 02:52 106/76 02/04/23 02:50 82 18 02/04/23 02:45 130/102 H 02/04/23 02:45 84 17 02/04/23 02:40 82 19 02/04/23 02:30 85 18 02/04/23 02:30 113/77 02/04/23 02:20 83 22 02/04/23 02:15 80 19 02/04/23 02:15 124/81 02/04/23 02:10 85 22 02/04/23 02:00 75 16 02/04/23 02:00 105/88 02/04/23 01:50 89 17 02/04/23 01:40 88 18 02/04/23 01:30 96 H 15 02/04/23 05:00 97.9 F 76 22 105/68 02/04/23 04:00 98.2 F 78 23 138/97 02/04/23 04:00 02/04/23 03:00 108/78 02/04/23 02:35 82 25 H 02/04/23 00:00 Pulse Ox O2 Del Method FiO2 02/04/23 11:29 02/04/23 11:22 02/04/23 11:22 02/04/23 11:02 02/04/23 10:40 97 Mechanical Vent 02/04/23 10:55 97 40 02/04/23 09:25 02/04/23 09:00 81 L Mechanical Vent 02/04/23 08:15 02/04/23 08:00 02/04/23 08:00 Mechanical Vent 02/04/23 08:00 40 02/04/23 08:00 Mechanical Vent 40 02/04/23 08:00 97 Mechanical Vent 50 02/04/23 06:00 98 Mechanical Vent 02/04/23 07:21 96 50 02/04/23 05:40 94 02/04/23 05:30 94 02/04/23 05:30 02/04/23 05:20 96 02/04/23 05:15 02/04/23 05:15 94 02/04/23 05:10 95 02/04/23 05:00 94 02/04/23 05:00 02/04/23 04:50 94 02/04/23 04:45 02/04/23 04:45 95 02/04/23 04:40 96 02/04/23 04:30 96 02/04/23 04:30 02/04/23 04:28 96 02/04/23 04:28 02/04/23 04:20 72 L 02/04/23 04:15 02/04/23 04:15 92 02/04/23 04:10 94 02/04/23 04:00 98 02/04/23 04:00 02/04/23 03:50 98 02/04/23 03:40 94 02/04/23 03:30 97 02/04/23 03:30 02/04/23 03:20 98 02/04/23 03:16 02/04/23 03:16 96 02/04/23 03:10 97 02/04/23 03:00 95 02/04/23 03:00 02/04/23 02:52 96 02/04/23 02:52 02/04/23 02:50 96 02/04/23 02:45 02/04/23 02:45 95 02/04/23 02:40 97 02/04/23 02:30 97 02/04/23 02:30 02/04/23 02:20 94 02/04/23 02:15 95 02/04/23 02:15 02/04/23 02:10 96 02/04/23 02:00 93 02/04/23 02:00 02/04/23 01:50 95 02/04/23 01:40 93 02/04/23 01:30 92 02/04/23 05:00 93 Mechanical Vent 50 02/04/23 04:00 96 Mechanical Vent 50 02/04/23 04:00 50 02/04/23 03:00 50 02/04/23 02:35 96 60 02/04/23 00:00 60 PG Care Time/CCT Total # of Minutes Spent Total Time Spent: 51 Total Time Spent with Patient: Total time spent is greater than 50% in coordination of care (as documented) at patient's floor/unit and/or counseling patient: [id number] goals of care, family education and support, coordination of care Coding Level of Care Code 84881 INT INP/OBS CARE MIN Diagnoses Palliative care encounter Z51.5
[2023-02-04] MEDS: TUBE FEEDING WATER FLUSH OG SCH ×3 (12:45→20:54)
[2023-02-04] MEDS: NOVASOURCE RENAL 2.0 CAL 1000ML BAG OG SCH (13:07)
--- NOTE | 2023-02-04 13:56 | Procedure Note ---
Procedure Note Date of Service February 04, 2023 Note Procedure: Arterial Line Placement Attending: Dr. Gutierrez APC: Cody Loaiza PA-C Indication: Hemodynamic monitoring Anesthesia: Lidocaine 1% Emergent Consent implied in the setting of clinical deterioration and need for close hemodynamic monitoring, ABG monitoring, frequent lab draws, etc. A time-out was completed verifying correct patient, procedure, site, positioning, and implant(s) or special equipment if applicable. Allens test was performed to ensure adequate perfusion. Patients RIGHT wrist was prepped and draped in the usual sterile fashion. Ultrasound guidance was used to aid needle placement. A 20g Arrow arterial line was introduced into the RIGHT Radial artery. Catheter was threaded, and the needle was removed with appropriate blood return. Good waveform was observed. The patient tolerated the procedure well. Confirmation of placement with ultrasound. Blood Loss: Minimal Complications: None Procedural Ultrasound Guidance: Procedure Date: 02/04/2023 Indication: Hemodynamic Monitoring, Frequent ABGs/Lab draws. Attending: Dr. Gutierrez APC: Cody Loaiza PA-C Artery Identified: YES Line confirmed in Artery with ultrasound: YES Complications: NONE Patient tolerated procedure: WELL Coding CPT Codes Tubes, Drains, and Vasc Access - Tubes, Drains, and Vasc Access: [id number] Arterial Cath/Cannulation Sampling/Monitoring/Transfusion ([id number]) [facility] [place] Procedure Codes (Charges) Tubes, Drains, and Vasc Access Procedure 1: Tubes, Drains, and Vasc Access: [id number] Arterial Cath/Cannulation Sampling/Monitoring/Transfusion
--- NOTE | 2023-02-04 14:43 | Pharmacy Report ---
Pharmacy PK ABX Note - Date of Service February 04, 2023 - Assessment and Plan Assessment 87 year old M receiving IV Vancomycin, Zosyn, and Doxycycline for treatment of severe sepsis secondary to pneumonia. Day # 1 of antimicrobial therapy. 02/04: Level this morning was 9.1 ~ 12 hours after loading dose. Patient appears to be clearing more than expected. Another one time dose was administered this morning. Will obtain another random this evening to help guide dosing given renal function. 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 Plan Vancomycin * Random Level this morning was 9.1 mcg/ml. * Redosed with 750mg X 1 this morning. * Repeat random level ordered for: 02/04/23 ~1929 Pharmacy will continue to follow and will adjust dose/frequency as necessary. Thank you. Zosyn * Loading dose of 4.5g was given in ED * Given CrCl <20, will give 4.5g IV q12 (extended infusion over 4 hours); higher dose due to critical illness
[2023-02-04 15:08] LABS: BUN Creatinine Ratio 20.6 (10-20); Creatinine Clr Calc Pharmacy 10.6 ml/min; Est GFR (African American) 10.2 ml/min; Est GFR (Non-African American) 8.8 ml/min; Potassium 4.3 mmol/L (3.5-5.1)
[2023-02-04] MEDS: ACETAMINOPHEN 1,000 MG/100 ML VIAL IV PRN (17:59)
[2023-02-04 19:27] LABS: BUN Creatinine Ratio 22.4 (10-20); Calcium 7.6 mg/dl (8.5-10.1); Creatinine Clr Calc Pharmacy 11.3 ml/min; Est GFR (African American) 10.9 ml/min; Est GFR (Non-African American) 9.4 ml/min
[2023-02-04] MEDS ORDERED: VANCOMYCIN HCL 750 MG in SODIUM CHLORIDE 0.9% 250 ML IV ONE (20:45)
[2023-02-05] MEDS: VASOPRESSIN 20 UNITS in 0.9 % SODIUM CHLORIDE 100 ML IV SCH ×3 (02:23→20:11)
[2023-02-05] MEDS: Standard Conc 16mcg/mL; 4mg in 250mL IV SCH ×2 (02:34→15:52)
[2023-02-05] MEDS: PIPERACILLIN/TAZOBACTAM 4.5 GM CI (over 4 hours) IV SCH ×3 (02:44→23:56)
[2023-02-05] MEDS: INSULIN ASPART PER UNIT CHARGE SC SCH ×5 (02:57→21:06)
[2023-02-05] MEDS: TUBE FEEDING WATER FLUSH OG SCH ×7 (02:59→21:10)
[2023-02-05] MEDS: LACTATED RINGER'S 1,000 ML IV SCH (03:11)
[2023-02-05 05:23] LABS: Hematocrit (blood only) 33.4 % (42.0-52.0); Hemoglobin 10.7 g/dl (14.0-18.0); Mean Corpuscular Hemoglobin 30.7 pg (25.0-34.0); Mean Platelet Volume 13.2 fL (9.4-12.4); Platelet Count 140 K/uL (130-400); Red Blood Count 3.48 M/uL (4.70-6.10); White Blood Count 19.75 K/ul (4.8-10.8)
[2023-02-05 05:38] LABS: Magnesium 2.1 mg/dl (1.7-2.4); Phosphorus 4.8 mg/dl (2.5-4.9)
[2023-02-05 06:16] LABS: Partial Thromboplastin Ratio 1.5
--- NOTE | 2023-02-05 06:55 | XRay Report ---
XR chest 1V portable HISTORY: 87 years-old Male while intubated- eval tubes/lines/lungs acute respiratory failure COMPARISON: Chest radiograph 02/04/2023 TECHNIQUE: AP view of the chest FINDINGS: Endotracheal tube overlies the midline, 4.2 cm superior to the víctor. Left IJ central venous cathete r distal tip is noted within the expected location of the brachiocephalic SVC confluence. Left subcla vian pacer. An enteric tube is noted with distal tip not well visualized. This is likely within the d istal esophagus or stomach. Cardiomegaly with prior median sternotomy and CABG. The lung apices are partially obscured secondary to positioning. No pneumothorax. Small pleural effusions. Pulmonary vascular congestion with intersti tial coarsening. Mild asymmetric left greater than right bibasilar airspace opacities. Bones appear g rossly intact. Chronic appearing fracture of the posterior left fourth rib. IMPRESSION: 1. Lines and tubes as above. 2. Cardiomegaly with pulmonary vascular congestion. 3. Left greater then right bibasilar opacities are again noted suggestive of atelectasis versus pneum onitis. ACT 112: Negative or not required by law. The above report was generated using voice recognition software. It may contain grammatical, syntax o r spelling errors. Electronically signed by: Mariano Wilcox M.D. 02/05/2023 6:53 AM
[2023-02-05 07:09] LABS: Calcium 7.7 mg/dl (8.5-10.1); Potassium 4.1 mmol/L (3.5-5.1)
[2023-02-05] MEDS: ICU Protocol for HYPERglycemia SCH ×4 (07:27→21:10)
[2023-02-05 07:29] LABS: BUN Creatinine Ratio 23.1 (10-20); Creatinine Clr Calc Pharmacy 12.3 ml/min; Est GFR (African American) 12.2 ml/min; Est GFR (Non-African American) 10.5 ml/min
[2023-02-05] MEDS: THIAMINE HCL 100 MG in SYRINGE 9 ML IV SCH (08:16)
[2023-02-05] MEDS: HEPARIN SOD 5,000 UNIT/0.5 ML VIAL SQ SCH ×2 (08:17→21:07)
--- NOTE | 2023-02-05 09:04 | Critical Care Progress Note ---
Date of Service February 05, 2023 Assessment & Plan (1) Septic shock: (2) AMS (altered mental status): (3) Acute hypernatremia: (4) Acute renal failure (ARF): (5) Sepsis: (6) Acute UTI (urinary tract infection): (7) Dementia: (8) Parkinson's disease: (9) Lewy body dementia: Plan Reason Critically Ill: 87 YOM recently on hospice until to day for end stage parkinson/lewy body dementia with complications of chronic UTI/sepsis. Patient arrive encephalopathic, hypoxic and was subsequently intubated following reported residence of hospice care by spouse. Spouse [place] out of the country. Patient requiring increasing needs of vasopressors in the setting of sepsis and hypovolemia hypernatremia. 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, contractures CAM ICU: Unable to assess secondary to underlying disease - Supported with mechanical ventilation Sedation-Fentanyl drip Cardiac -Shock, CAD with CABG hx, Hypovolemia - Shock multifactorial at this time but predominantly hypovolemic and septic shock - Continue with vasopressor support to maintain MAPS >65 - PPM- AAIR with mode switch to DDDR - low rate 60, upper rate 130 -- Elevated troponins Likely secondary to type II IN Continue to trend Respiratory -Hypoxic respiratory failure in the setting of severe dementia and failure to thrive -- VDRF Likely secondary to left lower lobe pneumonia from aspiration Continue with ventilatory support Keep RASS -1 Daily sedation holidays and SBT's GI -Transaminitis with increased INR - likely secondary to hypotension as well as some aspect of deficiency from poor PO intake RENAL/LYTES -ARF, hypovolemic hypernatremia. AGAP Acidosis - Supportive care with crystalloid to euvolemia then transition to D5W - Goal of sodium correction no more than 8 meq -- HERSON --> Improving Likely from dehydration, patient likely in ATN Monitor BUN/creatinine Avoid nephrotoxic medications Strict ins and outs -Chronic Ferris, chronic UTI - Ferris replaced ENDO - no acute needs - follow BG with hypoglycemic and hyperglycemic protocol HEME -No acute needs ID -Septic shock with bacteremia, MRSA - Covered sources at this time to include pulmonary (HCAP), and UTI with chronic indwelling Ferris - respiratory biofire negative -Continue with antibiotic -- DNR --Prophylaxis VTE: Heparin GI: Pantoprazole Lines: Left IJ, right radial Diet: Tube feeds Plan: In/out: +3.4 L, urine output 1925 FiO2 was decreased to 30%. Can take vasopressin off if the need for Levophed is less than 0.1 mcg/kg/min Patient has started to make good amount of urine. Is not on any IV maintenance fluid. Is getting tube feeds, continue with same. In the next 24 hours goal sodium 142. Give free water 150 mL every 4 hours to the OGT Seen with antibiotic. We will repeat blood culture today Overall prognosis is guarded I have personally spent 40 minutes of critical care time in the direct management of this patient. This is a life/limb threatening event. This includes time spent evaluating patient, direct bedside care, chart review, placing orders, interpretation of diagnostic studies, discussion with consultants, patient, and family members, as well as other required patient management activities. This time is exclusive of all separately billable procedures, and teaching time and separate from and in addition to any other critical care service time. Please note the above document was generated using voice recognition software. It may contain grammatical, syntax or spelling errors. Admission and Anticipated Discharge Date Admission Date: February 03, 2023 Subjective Patient seen and examined at bedside. No acute distress, no adverse events overnight Was on Levophed 0.06 at the time of examination and vasopressin 0.04. MAP was 68-70. He was opening his eyes and breathing over the vent. Not following any commands. Tmax 38.4 Review of Systems Review of Systems: All systems reviewed & are unremarkable except as noted in Subjective Physical Exam Physical Exam: Constitutional: No acute distress HEENT: PERRLA, arcus senilis bilaterally Respiratory system: Decreased air entry bilaterally, no wheeze, no rhonchi, positive crackles bilateral lower lobes, more on the left side CVS: S1-S2 positive, 2 out of 6 systolic murmur appreciated best at aorta, bioprosthetic heart sounds, accentuated P2 Abdomen: Soft, nontender, nondistended, positive bowel sounds x4 Extremities: +2 pulses bilaterally radialis/ dorsalis pedis, no cyanosis, +1 pitting edema bilateral lower extremity Neuro: Intubated, sedated Psych: Unable to assess G/U: Positive Ferris Skin: no rashes, warm and dry Lymphatic: no cervical or axillary lymphadenopathy Results & Data Results & Data Vital Signs (Past 12 Hours) Vital Signs Temp Pulse Resp BP Pulse Ox FiO2 02/05/23 07:24 60 26 H 94 40 02/05/23 05:15 37.0 C 61 18 95 02/05/23 05:00 37.0 C 64 18 94 02/05/23 05:00 105/57 L 02/05/23 04:45 36.9 C 63 16 94 02/05/23 04:30 36.9 C 62 17 96 02/05/23 04:15 36.9 C 60 16 96 02/05/23 04:00 36.9 C 65 20 96 02/05/23 04:00 95/56 L 02/05/23 03:45 36.9 C 63 20 98 02/05/23 03:36 36.8 C 66 1 L 100 02/05/23 03:36 120/64 02/05/23 03:30 36.8 C 60 0 L 97 02/05/23 03:15 36.9 C 60 0 L 96 02/05/23 03:00 36.9 C 60 3 L 97 02/05/23 03:00 106/60 02/05/23 02:45 37.0 C 60 0 L 97 02/05/23 02:30 37.1 C 62 1 L 02/05/23 02:15 37.2 C 89 14 98 02/05/23 02:00 37.1 C 14 100 02/05/23 01:45 37.0 C 60 18 95 02/05/23 01:30 37.0 C 60 14 96 02/05/23 01:15 37.0 C 60 13 95 02/05/23 01:00 36.9 C 60 20 96 02/05/23 01:00 128/63 02/05/23 00:45 36.9 C 60 15 96 02/05/23 00:30 36.9 C 60 19 95 02/05/23 00:15 36.9 C 60 16 96 02/05/23 00:00 36.9 C 66 17 96 02/05/23 00:00 149/70 H 02/04/23 23:45 36.8 C 60 18 95 02/04/23 23:30 36.8 C 60 19 95 02/04/23 23:15 36.9 C 60 19 94 02/04/23 23:01 36.8 C 60 13 95 02/04/23 23:01 147/66 H 02/04/23 23:00 36.8 C 60 13 95 02/04/23 22:45 36.9 C 60 14 94 02/04/23 22:30 36.9 C 60 12 94 02/04/23 22:15 36.9 C 60 13 92 02/04/23 22:01 37.0 C 71 16 93 02/04/23 22:01 107/62 02/04/23 22:00 37.0 C 62 16 97 02/04/23 21:45 37.1 C 60 14 93 02/04/23 21:30 37.1 C 60 23 93 02/04/23 21:15 37.1 C 69 21 95 02/04/23 21:00 37.1 C 60 17 96 02/04/23 21:00 152/76 H 02/05/23 04:00 63 105/57 L 02/05/23 04:00 40 02/05/23 00:00 40 02/05/23 03:25 60 18 96 40 02/05/23 00:00 62 02/05/23 00:00 60 149/60 H 02/04/23 23:15 16 40 Laboratory Results 02/05/23 04:49 02/05/23 05:15 Coding Level of Care Code 88994 CRITICAL CARE 1ST 30-74M Diagnoses Septic shock A41.9; R65.21 AMS (altered mental status) R41.82 Acute hypernatremia E87.0 Acute renal failure (ARF) N17.9 Sepsis A41.9 Acute UTI (urinary tract infection) N39.0 Dementia F03.90 Parkinson's disease G20 Lewy body dementia G31.83; F02.80 Time Spent (min) 40
[2023-02-05] MEDS ORDERED: VANCOMYCIN HCL 750 MG in SODIUM CHLORIDE 0.9% 250 ML IV ONE ×2 (10:00→22:00)
[2023-02-05] MEDS: PANTOprazole 40 MG in SYRINGE 0 ML IV SCH (11:14)
[2023-02-05] MEDS ORDERED: INSULIN ASPART PER UNIT CHARGE SC SCH (12:00)
--- NOTE | 2023-02-05 14:34 | Pharmacy Report ---
Pharmacy PK ABX Note - Date of Service February 05, 2023 - Assessment and Plan Assessment 87 year old M receiving IV Vancomyci and Zosyn for treatment of severe sepsis secondary to pneumonia. Day # 1 of antimicrobial therapy. 02/04: Level this morning was 9.1 ~ 12 hours after loading dose. Patient appears to be clearing more than expected. Another one time dose was administered this morning. Will obtain another random this evening to help guide dosing given renal function. 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 02/05: Bcx updates to staph species growing in 3/4 bottles. Biofire indicates MRSE. Gram negative bacilli resulted sputum cx. Scr improved again today and Patient with 2 L urine output yesterday. Given scr, but evident clearance, it continues to be difficult to determine a consistent dosing regimen for vanc omycin. Will continue to dose conservatively, but with frequent levels to ensure maintaining therapeutic levels. Plan Vancomycin * Random Level this morning was 15.7 mcg/ml. * Redosed with 750mg X 1 this morning. * Repeat random level ordered for: 02/04/23 ~2029 Pharmacy will continue to follow and will adjust dose/frequency as necessary. Thank you. Zosyn * Loading dose of 4.5g was given in ED * Given CrCl <20, will give 4.5g IV q12 (extended infusion over 4 hours); higher dose due to critical illness
--- NOTE | 2023-02-05 15:23 | Hospitalist Progress Note ---
Date of Service February 05, 2023 Assessment & Plan (1) Septic shock: (2) Acute hypernatremia: (3) Acute renal failure (ARF): (4) Goals of care, counseling/discussion: Plan 87 y/o male from [facility] with septic shock, renal failure. Revoked hospice for ED admission per request who is traveling from [facility]. Pt intubated. Admitting team confirmed NO CPR, defibrillation, cardioversion in the event of cardiac arrest. Continue pressors with hope of arriving from [place]. Grave prognosis. Septic Shock: Bacteremia - gram positive cocci in clusters/Staph Recent month long admission with urosepsis; was recently on Hospice until now. WBC 26.51; started on Zosyn and Vancomycin Lactate: 2.8 on admission Blood cultures - positive for gram positive cocci in cluster/staph Sputum cultx - pending Ucultx - mixed braulio, hx of chronic Ferris, recent hx of UTI Continue w/ broad spectrum Abx, and vasopressor support, per ICU Hypoxic resp. failure Intubated in ED for airway protection likely secondary to pneumonia, poss. aspiration, and sepsis sputum cultx pending vent. care per ICU team Elev. troponin Troponin level 400's on admission - likely type II AR, secondary to above Acute Hypernatremia: Na+ 164 Current Na down to 152 - care per ICU Acute Renal Failure: Creatinine 5.93; confirmed with patient's , no dialysis -likely from dehydration, likely ATN -Cr now improved, pt is making urine Chronic Ferris - Ferris was replaced - abx to cover poss UTI, as above Goals of care: Admitting team had a lengthy conversation with the patient's , Audelia on the phone while she is in [facility]. Significant time spent discussing goals of care. Discussed that in the event his heart would stop we would transition our focus to a more comfort approach allowing him to with dignity and comfort. She was amenable to a transition to conditional code with continuation of mechanical ventilation and inotropic vasoactive medications. Patient's agreeable that she would not want him to pursue hemodialysis. Palliative Medicine also consulted. 02/05 - met pt's sons (from previous marriage) and his ex- Renae at the bedside (they just arrived to [facility] ([facility] Pt's current not present yet. Disposition: PCP: [facility] Code Status: Conditional Code. Admitting team discussed goals of care. Now conditional code in case of decline. Ok for continuation of vent and pressors for now. Palliative medicine also consulted. VTE prophylaxis: heparin subq Admission and Anticipated Discharge Date Admission Date: February 03, 2023 Subjective Pt seen in follow up of septic/hypovolemic shock, renal failure, vent. support in ICU ROS not obtainable Pt opens eyes but not following commands Pt's 2 sons, and ex- Renae present at the bedside (they just arrived to [facility] ([facility]Pt's current not present yet. Review of Systems Review of Systems: Unobtainable due to cognitive status and Unobtainable due to endotracheal tube Physical Exam Physical Exam: General: elderly frail M intubated, sedated HEENT: head normocephalic, moist mucus membranes CV: S1/S2, (-) M/G/R, (-) edema, Decreased capillary refill Resp: +crackles, intubated on vent support GI: Abdomen S/NT/ND, Ax4 bowel sounds Musculoskeletal: + contractures Skin: L hip w/pressure injury, L shoulder w/pressure injury Neuro: intubated, opens eyes, not following commands Results & Data Results & Data Vital Signs (Past 12 Hours) Vital Signs Temp Pulse Resp BP Pulse Ox O2 Del Method FiO2 02/05/23 10:55 60 21 95 30 02/05/23 09:00 37.2 C 60 17 95 02/05/23 09:00 108/59 L 02/05/23 08:00 37.2 C 60 17 96 02/05/23 08:00 105/60 02/05/23 07:00 37.1 C 60 15 94 02/05/23 07:00 104/60 02/05/23 08:00 Mechanical Vent 30 02/05/23 08:00 30 02/05/23 07:24 60 26 H 94 40 02/05/23 05:15 37.0 C 61 18 95 02/05/23 05:00 37.0 C 64 18 94 02/05/23 05:00 105/57 L 02/05/23 04:45 36.9 C 63 16 94 02/05/23 04:30 36.9 C 62 17 96 02/05/23 04:15 36.9 C 60 16 96 02/05/23 04:00 36.9 C 65 20 96 02/05/23 04:00 95/56 L 02/05/23 03:45 36.9 C 63 20 98 02/05/23 03:36 36.8 C 66 1 L 100 02/05/23 03:36 120/64 02/05/23 03:30 36.8 C 60 0 L 97 02/05/23 04:00 63 105/57 L 02/05/23 04:00 40 02/05/23 03:25 60 18 96 40 Laboratory Results 02/05/23 02/05/23 02/05/23 Range/Units 11:13 06:45 05:15 WBC (4.8-10.8) K/ul RBC (4.70-6.10) M/uL Hgb (14.0-18.0) g/dl Hct (42.0-52.0) % MCV (80.0-100.0) fL MCH (25.0-34.0) pg MCHC (32.0-36.0) g/dL RDW Std Deviation (36.4-46.3) fL RDW Coeff of Lacey (11.5-14.5) % Plt Count (130-400) K/uL MPV (9.4-12.4) fL APTT (21.0-31.0) Seconds PTT Ratio Sodium 152 H (136-145) mmol/L Potassium 4.1 (3.5-5.1) mmol/L Chloride 117 H (98-107) mmol/L Carbon Dioxide 25 (21-32) mmol/L Anion Gap 10 (3-11) BUN 107 H (6-23) mg/dl Creatinine 4.64 H* D (0.6-1.4) mg/dl Est Cr Clr Drug Dosing 12.3 ml/min Est GFR ( Amer) 12.2 ml/min Est GFR (Non-Af Amer) 10.5 ml/min BUN/Creatinine Ratio 23.1 H (10-20) Glucose 196 H (70-99(Fasting)) mg/dl POC Glucose 180 H (70-99) mg/dl POC Glucose (other) 207 H (70-99) mg/dl Calcium 7.7 L (8.5-10.1) mg/dl Phosphorus (2.5-4.9) mg/dl Magnesium (1.7-2.4) mg/dl Random Vancomycin (10-20) mcg/ml 02/05/23 02/05/23 02/05/23 Range/Units 04:49 04:49 04:49 WBC (4.8-10.8) K/ul RBC (4.70-6.10) M/uL Hgb (14.0-18.0) g/dl Hct (42.0-52.0) % MCV (80.0-100.0) fL MCH (25.0-34.0) pg MCHC (32.0-36.0) g/dL RDW Std Deviation (36.4-46.3) fL RDW Coeff of Lacey (11.5-14.5) % Plt Count (130-400) K/uL MPV (9.4-12.4) fL APTT 41.0 H (21.0-31.0) Seconds PTT Ratio 1.5 Sodium (136-145) mmol/L Potassium (3.5-5.1) mmol/L Chloride (98-107) mmol/L Carbon Dioxide (21-32) mmol/L Anion Gap (3-11) BUN (6-23) mg/dl Creatinine (0.6-1.4) mg/dl Est Cr Clr Drug Dosing ml/min Est GFR ( Amer) ml/min Est GFR (Non-Af Amer) ml/min BUN/Creatinine Ratio (10-20) Glucose (70-99(Fasting)) mg/dl POC Glucose (70-99) mg/dl POC Glucose (other) (70-99) mg/dl Calcium (8.5-10.1) mg/dl Phosphorus 4.8 D (2.5-4.9) mg/dl Magnesium 2.1 (1.7-2.4) mg/dl Random Vancomycin 15.7 (10-20) mcg/ml 02/05/23 02/05/23 02/04/23 Range/Units 04:49 02:54 21:05 WBC 19.75 H (4.8-10.8) K/ul RBC 3.48 L (4.70-6.10) M/uL Hgb 10.7 L (14.0-18.0) g/dl Hct 33.4 L (42.0-52.0) % MCV 96.0 (80.0-100.0) fL MCH 30.7 (25.0-34.0) pg MCHC 32.0 (32.0-36.0) g/dL RDW Std Deviation 49.0 H (36.4-46.3) fL RDW Coeff of Lacey 14.0 (11.5-14.5) % Plt Count 140 (130-400) K/uL MPV 13.2 H (9.4-12.4) fL APTT (21.0-31.0) Seconds PTT Ratio Sodium (136-145) mmol/L Potassium (3.5-5.1) mmol/L Chloride (98-107) mmol/L Carbon Dioxide (21-32) mmol/L Anion Gap (3-11) BUN (6-23) mg/dl Creatinine (0.6-1.4) mg/dl Est Cr Clr Drug Dosing ml/min Est GFR ( Amer) ml/min Est GFR (Non-Af Amer) ml/min BUN/Creatinine Ratio (10-20) Glucose (70-99(Fasting)) mg/dl POC Glucose (70-99) mg/dl POC Glucose (other) 196 H 164 H (70-99) mg/dl Calcium (8.5-10.1) mg/dl Phosphorus (2.5-4.9) mg/dl Magnesium (1.7-2.4) mg/dl Random Vancomycin (10-20) mcg/ml 02/04/23 02/04/23 02/04/23 Range/Units 18:50 18:50 17:41 WBC (4.8-10.8) K/ul RBC (4.70-6.10) M/uL Hgb (14.0-18.0) g/dl Hct (42.0-52.0) % MCV (80.0-100.0) fL MCH (25.0-34.0) pg MCHC (32.0-36.0) g/dL RDW Std Deviation (36.4-46.3) fL RDW Coeff of Lacey (11.5-14.5) % Plt Count (130-400) K/uL MPV (9.4-12.4) fL APTT (21.0-31.0) Seconds PTT Ratio Sodium 152 H (136-145) mmol/L Potassium 4.0 (3.5-5.1) mmol/L Chloride 118 H (98-107) mmol/L Carbon Dioxide 23 (21-32) mmol/L Anion Gap 11 (3-11) BUN 114 H (6-23) mg/dl Creatinine 5.09 H* D (0.6-1.4) mg/dl Est Cr Clr Drug Dosing 11.3 ml/min Est GFR ( Amer) 10.9 ml/min Est GFR (Non-Af Amer) 9.4 ml/min BUN/Creatinine Ratio 22.4 H (10-20) Glucose 175 H (70-99(Fasting)) mg/dl POC Glucose (70-99) mg/dl POC Glucose (other) 174 H (70-99) mg/dl Calcium 7.6 L (8.5-10.1) mg/dl Phosphorus (2.5-4.9) mg/dl Magnesium (1.7-2.4) mg/dl Random Vancomycin 13.5 (10-20) mcg/ml Medications Administered Current Inpatient Medications Al Hydrox/Mg Hydrox/Simethicone (Aluminum/Magnesium Susp 30 Ml Udc) 15 ml PO Q4H PRN PRN Reason: Dyspepsia Stop: 03/05/23 15:43 Dextrose (Dextrose 50% 50 Ml Syringe) 25 - 50 ml IV UD PRN; Protocol PRN Reason: Hypoglycemia Protocol Stop: 03/05/23 21:01 Enteral Nutritional Formula (Novasource Renal 2.0 Jeremy 1000ml Bag) 1,000 ml OG UD FERNIE; Protocol Stop: 03/06/23 11:59 Last Admin: 02/04/23 13:07 Dose: 1,000 ml Fentanyl Citrate (Fentanyl Bolus From Bag) 50 mcg IV Q60M PRN PRN Reason: Pain or Agitation Stop: 02/18/23 09:36 Glucagon (Glucagon For Inj 1 Mg Vial) 1 mg SQ UD PRN; Protocol PRN Reason: Hypoglycemia Protocol Stop: 03/06/23 02:57 Glucose (Glucose 10 Tab/Tube) 4 - 8 tab PO UD PRN; Protocol PRN Reason: Hypoglycemia Treatment Stop: 03/05/23 21:01 Glucose (Glucose 40% Gel 15 Gm Tube) 15 - 30 gm PO UD PRN; Protocol PRN Reason: Hypoglycemia Protocol Stop: 03/05/23 21:01 Glycopyrrolate (Glycopyrrolate 0.2 Mg/Ml Vial) 0.2 mg IV Q3H PRN PRN Reason: secretions Stop: 03/05/23 16:47 Heparin Sodium (Porcine) (Heparin Sod 5,000 Unit/0.5 Ml Vial) 5,000 units SQ Q12 [facility] Stop: 03/06/23 10:29 Last Admin: 02/05/23 08:17 Dose: 5,000 units Norepinephrine Bitartrate (Levophed/D5w) 4 mg in 250 mls @ 13.313 mls/hr IV .[id number] [facility]; Protocol Stop: 03/05/23 14:44 Last Titration: 02/05/23 10:50 Dose: 0.06 mcg/kg/min, 16 mls/hr Thiamine HCl 100 mg/ Syringe 10 mls @ 2 mls/min IV QAM [facility] Stop: 03/06/23 08:59 Last Admin: 02/05/23 08:16 Dose: 2 mls/min Piperacillin Sod/Tazobactam (Sod 4.5 gm/ Dextrose) 120 mls @ 30 mls/hr IV Q12H [facility]; Protocol Stop: 02/10/23 00:00 Last Admin: 02/05/23 12:12 Dose: 30 mls/hr Vasopressin 20 units/ Sodium (Chloride) 101 mls @ 12.12 mls/hr IV .Q8H20M [facility] Stop: 03/06/23 01:14 Last Admin: 02/05/23 11:14 Dose: 0.04 unit/min, 12.1 mls/hr Pantoprazole Sodium 40 mg/ (Syringe) 10 mls @ 5 mls/min IV DAILY@1100 [facility] Stop: 03/06/23 10:59 Last Admin: 02/05/23 11:14 Dose: 5 mls/min Fentanyl Citrate (Fentanyl Citrate) 2,500 mcg in 250 mls @ 2.5 mls/hr IV .Q96H [facility]; Protocol Stop: 02/18/23 09:44 Last Titration: 02/05/23 08:37 Dose: 25 mcg/hr, 2.5 mls/hr Acetaminophen (Ofirmev) 1,000 mg in 100 mls @ 400 mls/hr IV Q8H PRN PRN Reason: Fever Stop: 02/07/23 17:46 Last Infusion: 02/04/23 18:18 Dose: Infused Insulin Aspart (Insulin Aspart Per Unit) 0 units SC Q4 [facility] Stop: 03/07/23 15:59 Magnesium Hydroxide (Magnesium Hydroxide Susp 30 Ml Udc) 30 ml PO Q12H PRN PRN Reason: Constipation Stop: 03/05/23 15:43 Miscellaneous (Carbohydrates For Hypoglycemia ) 15 - 30 gm PO UD PRN PRN Reason: Hypoglycemia Protocol Stop: 03/05/23 21:01 Miscellaneous (Icu Electrolyte Replacement Protocol) 1 each N/A UD PRN; Protocol PRN Reason: Hypoglycemia Protocol Stop: 03/05/23 21:01 Miscellaneous (Icu Protocol For Hyperglycemia) 1 each N/A ACHS FERNIE Stop: 02/06/23 07:29 Last Admin: 02/05/23 11:14 Dose: 1 each Miscellaneous Information (Vancomycin Consult Active) 1 each N/A UD PRN PRN Reason: Consult Stop: 03/05/23 15:13 Ondansetron HCl (Ondansetron Inj 2 Mg/Ml 2 Ml Vial) 4 mg IV Q6H PRN PRN Reason: Nausea Stop: 03/05/23 15:43 Polyethylene Glycol (Polyethylene (Miralax) 17 Gm Pack) 17 gm PO DAILY PRN PRN Reason: Constipation Stop: 03/05/23 15:43 Sterile Water (Tube Feeding Water Flush) 150 ml OG Q4H [facility]IE Stop: 03/07/23 13:59
[2023-02-05] MEDS: ACETAMINOPHEN 1,000 MG/100 ML VIAL IV PRN (15:52)
[2023-02-05] MEDS: NOVASOURCE RENAL 2.0 CAL 1000ML BAG OG SCH (16:43)
[2023-02-06] MEDS: INSULIN ASPART PER UNIT CHARGE SC SCH ×6 (00:02→20:02)
[2023-02-06] MEDS: ACETAMINOPHEN 1,000 MG/100 ML VIAL IV PRN ×2 (00:02→19:42)
[2023-02-06] MEDS: TUBE FEEDING WATER FLUSH OG SCH ×4 (02:30→12:13)
[2023-02-06 05:41] LABS: iSTAT Arterial Blood Gas HCO3 26 meg/L (19-24); iSTAT Arterial Blood Gas pCO2 40 mmHg (35-46); iSTAT Arterial Blood Gas pH 7.42 (7.35-7.45); iSTAT Arterial Blood Gas pO2 71 mmHg (80-95); iSTAT Carbon Dioxide 27 mmol/L (24-31); iSTAT FiO2 30 %; iSTAT Site Art Line
[2023-02-06 05:48] LABS: Basophils # (auto) 0.03 K/uL (0-0.2); Basophils % (auto) 0.2 %; Eosinophils # (auto) 0.17 K/uL (0-0.50); Hematocrit (blood only) 32.6 % (42.0-52.0); Hemoglobin 10.5 g/dl (14.0-18.0); Immature Granulocytes # (auto) 0.08 K/uL (0.01-0.20); Immature Granulocytes % (auto) 0.5 %; Lymphocytes # (auto) 0.77 K/uL (1.2-3.4); Lymphocytes % (auto) 4.7 %; Mean Corpuscular Hemoglobin 30.3 pg (25.0-34.0); Mean Corpuscular Hgb Conc 32.2 g/dL (32.0-36.0); Mean Corpuscular Volume 93.9 fL (80.0-100.0); Monocytes # (auto) 0.81 K/uL (0.11-0.59); Neutrophils # (auto) 14.49 K/uL (1.40-6.50); Neutrophils % (auto) 88.6 %; Platelet Count 132 K/uL (130-400); RDW Coefficient of Variation 14.1 % (11.5-14.5); Red Blood Count 3.47 M/uL (4.70-6.10); White Blood Count 16.35 K/ul (4.8-10.8)
[2023-02-06 05:59] LABS: BUN Creatinine Ratio 26.7 (10-20); Calcium 7.6 mg/dl (8.5-10.1); Creatinine Clr Calc Pharmacy 15.4 ml/min; Est GFR (Non-African American) 13.8 ml/min; Magnesium 2.1 mg/dl (1.7-2.4); Phosphorus 3.9 mg/dl (2.5-4.9); Potassium 3.6 mmol/L (3.5-5.1)
[2023-02-06] MEDS: VASOPRESSIN 20 UNITS in 0.9 % SODIUM CHLORIDE 100 ML IV SCH ×2 (06:27→16:06)
[2023-02-06] MEDS: DEXTROSE 5% 1,000 ML IV SCH ×2 (08:20→16:02)
[2023-02-06] MEDS: POTASSIUM CHLORIDE / WTR 20 MEQ/100 ML PLCT IV SCH ×2 (08:20→10:51)
[2023-02-06] MEDS: THIAMINE HCL 100 MG in SYRINGE 9 ML IV SCH (08:20)
[2023-02-06] MEDS: HEPARIN SOD 5,000 UNIT/0.5 ML VIAL SQ SCH ×2 (08:21→21:19)
--- NOTE | 2023-02-06 08:55 | XRay Report ---
XR chest 1V portable CLINICAL HISTORY: while intubated- eval tubes/lines/lungs TECHNIQUE: Single frontal radiograph of the chest was obtained. Comparison: None available at the time of this dictation. FINDINGS: Median sternotomy wires are unchanged. Dual lead pacemaker is seen. Endotracheal tube is unchanged. E nteric tube appears to terminate below the diaphragm. Left IJ venous catheter is unchanged in positio tanya. Cardiomegaly is noted. The aortic arch is calcified. Bilateral lower lung predominant airspace opacities are seen. No evidence of pleural effusion or pneumothorax. IMPRESSION: 1. Satisfactory appearance of lines and tubes were visualized. 2. Bilateral lower lung airspace opacities likely represent atelectasis. Stable cardiomegaly. ACT 112: Negative or not required by law. Electronically signed by: Faisal Moraes M.D. 02/06/2023 8:53 AM
--- NOTE | 2023-02-06 09:11 | Critical Care Progress Note ---
Date of Service February 06, 2023 Assessment & Plan (1) Septic shock: (2) AMS (altered mental status): (3) Acute hypernatremia: (4) Acute renal failure (ARF): (5) Sepsis: (6) Acute UTI (urinary tract infection): (7) Dementia: (8) Parkinson's disease: (9) Lewy body dementia: Plan Reason Critically Ill: 87 YOM recently on hospice until to day for end stage parkinson/lewy body dementia with complications of chronic UTI/sepsis. Patient arrive encephalopathic, hypoxic and was subsequently intubated following reported residence of hospice care by spouse. [place]. Patient requiring increasing needs of vasopressors in the setting of sepsis and hypovolemia hypernatremia. 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, contractures [facility] ICU: Unable to assess secondary to underlying disease - Supported with mechanical ventilation Sedation-Fentanyl drip Cardiac -Shock, CAD with CABG hx, Hypovolemia - Shock multifactorial at this time but predominantly hypovolemic and septic shock - Continue with vasopressor support to maintain MAPS >65 - PPM- AAIR with mode switch to DDDR - low rate 60, upper rate 130 -- Elevated troponins Likely secondary to type II NE Continue to trend Respiratory -Hypoxic respiratory failure in the setting of severe dementia and failure to thrive -- VDRF Likely secondary to left lower lobe pneumonia from aspiration Continue with ventilatory support Keep RASS -1 Daily sedation holidays and SBT's GI -Transaminitis with increased INR - likely secondary to hypotension as well as some aspect of deficiency from poor PO intake RENAL/LYTES -ARF, hypovolemic hypernatremia. AGAP Acidosis - Supportive care with crystalloid to euvolemia then transition to D5W - Goal of sodium correction no more than 8 meq -- HERSON --> Improving Likely from dehydration, patient likely in ATN Monitor BUN/creatinine Avoid nephrotoxic medications Strict ins and outs -Chronic Ferris, chronic UTI - Ferris replaced ENDO - no acute needs - follow BG with hypoglycemic and hyperglycemic protocol HEME -No acute needs ID -Septic shock with bacteremia, MRSE - Covered sources at this time to include pulmonary (HCAP), and UTI with chronic indwelling Ferris - respiratory biofire negative -Continue with antibiotic --Repeat blood cultures 02/05/2023 again positive for gram-positive cocci -- DNR --Prophylaxis VTE: Heparin GI: Pantoprazole Lines: Left IJ, right radial Diet: Tube feeds Plan: In/out: -16 mL, urine output 2640 Patient's vasopressor support has been decreasing. We will try to titrate them off. Trial of extubation today. Tube feeds are on hold. I will give the patient D5 water 125 mill an hour for 1500 mL for the sodium of 151. Potassium being replaced Patient's family and did come by yesterday. Plan for extubation today with no reintubation. Overall prognosis is guarded I discussed the case with patient's and answered all her questions. I spent 38 minutes with [id number] answering all her questions. I did explain to her that the prognosis is poor and if the patient's condition were to decline we would not reintubate the patient. I will try to get the patient off of vasopressors and once the patient is off vasopressors would not restart vasopressor support. She understands and is agreeable to that Her main question was regarding nutrition of the patient and aspiration. I did explain to her that given the severe dementia from Parkinson's as well as Lewy body it is highly unlikely the patient will be able to swallow on his own. Even if he gets a PEG tube, he will still be at risk for aspiration I have personally spent 78 minutes of critical care time in the direct management of this patient. This is a life/limb threatening event. This includes time spent evaluating patient, direct bedside care, chart review, placing orders, interpretation of d iagnostic studies, discussion with consultants, patient, and family members, as well as other required patient management activities. This time is exclusive of all separately billable procedures, and teaching time and separate from and in addition to any other critical care service time. Please note the above document was generated using voice recognition software. It may contain grammatical, syntax or spelling errors. Admission and Anticipated Discharge Date Admission Date: February 03, 2023 Subjective Patient seen and examined at bedside. No acute distress, no adverse events overnight Patient's map was in the 70s while on vasopressin 0.04 and fentanyl 50 He was breathing over the vent. He was alert but not answering any questions I put the patient on pressure support and he was getting good tidal volumes Spiking low-grade fever. Review of Systems Review of Systems: Unobtainable due to cognitive status and Unobtainable due to endotracheal tube Physical Exam Physical Exam: Constitutional: No acute distress HEENT: PERRLA, arcus senilis bilaterally Respiratory system: Decreased air entry bilaterally, no wheeze, no rhonchi, positive crackles bilateral lower lobes, more on the left side CVS: S1-S2 positive, 2 out of 6 systolic murmur appreciated best at aorta, bioprosthetic heart sounds, accentuated P2 Abdomen: Soft, nontender, nondistended, positive bowel sounds x4 Extremities: +2 pulses bilaterally radialis/ dorsalis pedis, no cyanosis, +1 pitting edema bilateral lower extremity Neuro: Intubated, sedated Psych: Unable to assess G/U: Positive Ferris Skin: no rashes, warm and dry Lymphatic: no cervical or axillary lymphadenopathy Results & Data Results & Data Vital Signs (Past 12 Hours) Vital Signs Temp Pulse Resp BP Pulse Ox O2 Del Method FiO2 02/06/23 07:56 60 15 96 35 02/06/23 07:45 60 17 95 35 02/06/23 05:00 37.1 C 60 15 122/73 95 Mechanical Vent 30 02/06/23 04:00 37.1 C 61 17 122/70 93 Mechanical Vent 30 02/06/23 03:00 37.2 C 62 16 121/61 93 Mechanical Vent 30 02/06/23 02:37 37.2 C 62 15 91/57 L 94 02/06/23 04:00 30 02/06/23 04:00 129/55 L 02/06/23 04:21 62 16 98 30 02/06/23 02:00 37.4 C 60 14 102/42 L 93 Mechanical Vent 30 02/06/23 01:00 37.7 C H 60 14 122/64 93 Mechanical Vent 30 02/06/23 00:00 37.8 C H 60 17 109/58 L 91 Mechanical Vent 30 02/05/23 23:00 37.6 C H 60 13 134/71 93 30 02/05/23 22:00 37.6 C H 60 18 121/65 93 30 02/06/23 00:00 60 02/06/23 00:00 30 02/06/23 00:00 102/45 L 02/05/23 23:56 60 18 93 30 Laboratory Results 02/06/23 05:20 02/06/23 05:20 Coding Level of Care Code 89242 CRITICAL CARE 1ST 30-74M Diagnoses Septic shock A41.9; R65.21 AMS (altered mental status) R41.82 Acute hypernatremia E87.0 Acute renal failure (ARF) N17.9 Sepsis A41.9 Acute UTI (urinary tract infection) N39.0 Dementia F03.90 Parkinson's disease G20 Lewy body dementia G31.83; F02.80 Time Spent (min) 78 Comment [id number] plus [id number]
[2023-02-06] MEDS ORDERED: CALCIUM GLUCONATE 10% 1,000 MG in DEXTROSE 5% 50 ML IV ONE (10:00)
--- NOTE | 2023-02-06 10:20 | Pharmacy Report ---
Pharmacy PK ABX Note - Date of Service February 06, 2023 - Assessment and Plan Assessment 87 year old M receiving IV Vancomycin and ceftriaxone for treatment of severe sepsis secondary to pneumonia/bacteremia. Day # 4 of antimicrobial therapy. 02/04: Level this morning was 9.1 ~ 12 hours after loading dose. Patient appears to be clearing more than expected. Another one time dose was administered this morning. Will obtain another random this evening to help guide dosing given re nal function. 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 02/05: Bcx updates to staph species growing in 3/4 bottles. Biofire indicates MRSE. Gram negative bacilli resulted sputum cx. Scr improved again today and Patient with 2 L urine output yesterday. Given scr, but evident clearance, it continues to be difficult to determine a consistent dosing regimen for vancomycin. Will continue to dose conservatively, but with frequent levels to ensure maintaining therapeutic levels. 02/06: BCx from 02/03 (+) Staph spp in /4. Biofire (+) MRSE. Sensitivities are still pending. Sputum cx (+) Klebsiella pneumoniae, riggs-sensitive. Zosyn de- escalated to ceftriaxone. SCr continues to down trend with good UOP. Patient has been receiving vanc 750mg ~ q12h and demonstrating some accumulation. Still unable to determine a consistent dosing strategy given rapidly changing renal function. Will continue to dose by levels. Plan Vancomycin * Random Level this morning was 20.2 mcg/ml. * Redosed with 750mg X 1 ~11 today * Repeat random level ordered for: 02/06/23 ~2199 Pharmacy will continue to follow and will adjust dose/frequency as necessary. Thank you.
[2023-02-06] MEDS ORDERED: VANCOMYCIN HCL 750 MG in SODIUM CHLORIDE 0.9% 250 ML IV ONE (11:00)
[2023-02-06] MEDS: cefTRIAXone SODIUM 2,000 MG in DEXTROSE 5% 50 ML IV SCH (11:05)
[2023-02-06] MEDS: PANTOprazole 40 MG in SYRINGE 0 ML IV SCH (11:05)
[2023-02-06] MEDS ORDERED: Nursing to Pharmacy Communication SCH (14:15)
--- NOTE | 2023-02-06 14:26 | Palliative Care Progress Note ---
Date of Service February 06, 2023 Assessment & Plan (1) Palliative care by specialist: Plan: Met with pt/family. Provided overview of Palliative Medicine, a subspecialty that provides specialized medical care for people living with a serious illness by offering a focus on quality of life. Palliative Medicine is often conflated with hospice: I advised patient/family that Palliative and hospice can be partners but we are not the same. It is important to understand the difference so that we may be informed, and not afraid. Palliative Medicine works to improve QOL through reduction of symptom burden/more control over their illness, for both the patient and family. Palliative medicine clinicians are board certified, specially-trained and another member of the patient's medical care team. We often provide an extra layer of support because our care is based on the needs of the patient, not the prognosis; as such, it's appropriate at any age/advancing stage of a serious illness and can be provided along with curative treatment. Palliative Medicine clinicians are also trained in advanced communication methodologies, to facilitate complex discussions about advanced illness planning, which are needed to help assure that the treatment choices match the patient's goals, aka delivering Goal Concordant care. Finally, we discussed that hospice is a visiting nurse service that focuses on care delivered at the very end of life for patients with terminal illness, with life expectancy less than 6 month. (2) Discussion about advance care planning held with family member: Plan: A very lengthy, detailed and complex face to face ACP meeting was held for 60 min with pt , his sons x2 and his ex /mother of sons. His sons and ex are from [facility]. We reviewed that all chronic/progressive disease has a declining trajectory over time where facets of patient self-identity and independence are lost. Every acute event leads to a further decline, resulting- many times, in a new b aseline. Advised that the greatest priority is to determine what matters most to pt, then family and to develop a plan of care that is aligned with those priorities. Next we spoke about how Lewy Body Dementia (LBD) is a progressive, neurodegenerative disease with unique features and cognitive, motor, sleep, and behavioral symptoms. These symptoms are similar to those of Alzheimers and Parkinsons disease, which may delay diagnosis. It is an incurable, neurodegenerative disease. LBD progression may be slow or rapid, and cognitive and behavioral symptoms worsen temporarily, because of pain, infection or other medical problem, which improves when the problem is resolved. The average duration of LBD (from the time of diagnosis to ) is 5-7 years. He was diagnosed approx 5 years ago. Initial symptoms may include visual hallucinations, acting out dreams or other sleep disturbances, cognitive impairment, or parkinsonian (tremor, rigidity, problems with balance and movement). Anticholinergic or antipsychotic properties should be used cautiously, if at all, and may cause sudden and sometimes severe deterioration. There are seven stages of LBD: 1. No Cognitive Decline 2. Very Mild Cognitive Decline 3. Mild Cognitive Decline 4. Moderate Cognitive Decline 5. Moderately Severe Cognitive Decline 6. Severe Cognitive Decline 7. Very Severe Cognitive Decline In the later stages of the disease, people with LBD are not able to do the basic self-care activities such as bathing, dressing, or toileting and often have increasing difficulties with movement that can affect walking, talking, and swallowing. These more severe problems also make it more difficult for the person with LBD to communicate or participate in activities and may cause weight loss, aspiration pneumonia, or falls that result in broken hips or wrists. Behavior cannot be easily redirected for LBD patients aziza when they become agitated/exhibit aggression, compounded by the fact that their trigger points are a moving target. In the later stages, extreme muscle rigidity and sensitivity to touch develop along with visual hallucinations, poor regulation of body functions (autonomic nervous system), cognitive problems, sleep difficulties, fluctuating attention, depression, apathy. When the LBD patient needs constant/dependent care and QOL is greatly reduced, it is appropriate to offer hospice. Patient's shares that he has been steadily declining for over a year. He cannot performs his ADLs but can sometimes use a spoon or hold onto half a sandwich. He is wheelchair or bed bound. He is contracted. He has worsening trouble swallowing. He has increased secretions. He is known to have impaired swallow. 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 states she believes pt "was really suffering at [facility] with hospice, they were not doing anything for him, just letting him suffer and not helping him." She states he has chronic urinary infections and this time the infection made him septic and in her opinion, "they were trying to kill him", she states she is not happy with [facility] and does not want him going back. She wants [facility]. I advised her this would be information I would pass along to CM. We had a very lengthy conversation about terminal dementia care, about how Dementia meds dont help:based on 45 trials (n=22,431) and three observational studies (n=190,076) that evaluated acetylcholinesterase inhibitors (AChEIs) (i.e., donepezil, galantamine, rivastigmine) and memantine, these medications may improve measures of global cognitive function in the short term, but the magnitude of change is small. (Nani CD, Mandeep LA, Breezy RC, et al. Screening for Cognitive Impairment in Older Adults: An Evidence Update for the U.S. Preventive Services Task Force. [place] (): Agency for Healthcare Research and Quality (); December 2019.) We also reviewed the following Dementia facts Aggressive medical treatment for residents with advanced dementia is often inappropriate for medical reasons, has a low rate of success, and can have negative outcomes that hasten functional decline and . ([place] [employer] Ethics Committee and Clinical Practice and Models of Care Committee. J Am Geriatr Soc. 2014 Jun;62(8):1590-3 and Jaime SL, Edwardo JM, Sorto SC, Mor V. A national study of the location of for older persons with dementia. J Am Geriatr Soc 2005; 53(2):299-305.) Tube feeding in residents with advanced dementia does not increase survival. It does not prevent aspiration pneumonia, malnutrition or pressure ulcers. It does not reduce the risk of infections or improve functional status or comfort of the patient. (from: Osorio ROSALES, Abby T Percutaneous endoscopic gastrostomy does not prolong survival in patients with dementia. Arch Clip On Sunglasses Assembler Med 2003; 163(11):2877-2064 AND Torsten DE, Selvin ABIODUN, Collin J, Tanisha-Roxi S, Manny RS. High short-term mortality in hospitalized patients with advanced dementia - Lack of benefit of tube feeding. Arch Clip [employer] Sunglasses Assembler Med 2001; 161(4):594- 599.) Simple strategies involving hands-on care by well-trained staff such as massage, oral hygiene, changes in diet, and hand-feeding -- can prevent infection and manage feeding problems without resort to tube-feeding. Tube feeding does not prevent aspiration pneumonia and might actually increase its incidence, and does not prevent the consequences of malnutrition Hand feeding can be provided until the beginning of the dying process when all physiological processes shut down, note that cognitively intact cancer patients indicate that dying residents do not feel hunger and thirst. Voluntary refusal of food and liquids is often initiated by hospice patients and does not result in discomfort I recommended home with hospice or hospice at SNF: Hospice is a valuable service for persons with advanced dementia, particularly in management of pain, continuous involvement of the primary physician, and avoidance of hospitalization. Social support provided to caregivers is also important given their high levels of depressive symptoms and anxiety. The goal of care for residents with advanced dementia is primarily maintenance of function and patient should not be transferred to an acute care setting because hospitalization results in decline of functional abilities that do not recover after discharge back into group home had many concerns about hydration and nutrition, stating she wanted "the tube in his nose for nutrition." I advised her of the following: artificial nutrition and hydration (DANNIELLE) were originally developed to provide short-term support for patients who were acutely ill. For patients nearing/transitioning to EOL, DANNIELLE is unlikely to prolong life in addition to which researchers have found that DANNIELLE often leads to complications in patients nearing the end of life. Pat ients with advanced, life-limiting illness often lose the ability to eat and drink and/or interest in food and fluids. Like other medical interventions, it should be evaluated by weighing its benefits and burdens in light of the patient's clinical circumstances and goals of care. DANNIELLE may offer benefits when administered in the setting of acute, reversible illness, or as a component of chronic disease management, when the patient can appreciate the benefits of the treatment and significant burdens are not disproportionate. Near the end of life, some widely assumed benefits of DANNIELLE, such as alleviation of thirst, may be achieved by less invasive measures including good mouth care or providing ice chips. (Kym ROSS, Mamadou ALDANAK, Keny M. after PEG: Results of the National Confidential Enquiry into Patient Outcome and . Gastrointest Endosc. 2008;68:223-227andKate E, Shruthi D, Araseli S, et al. Parenteral hydration in patients with advanced cancer: A multicenter, double-blind, placebo-controlled randomized trial. J Clin Oncol. 2013;31:111-118.) I asked family if pt had ever expressed his wishes. His ex stated "We were for 30 years. We discussed this and he was also very clear that when it was his time to go, he wanted to peacefully and without any machines, tubes or wires. He didn't want to suffer and he didn't want anything to be drawn out." His sons indicated being aware their father would not want to be on prolonged life support but that he had never written anything down or completed a formal AD. Patient's states "I know he doesn't want to suffer, I don't want to see him suffer. I want to see he is comfortable but I want his infection better, his nutrition better." I asked what would better mean to her for this patient and she was unable to give a clear reply other than to tell me she wants his urinary infection resolved and get him to rehab. We spoke about rehab at a group home and she told me she felt he needed more, like [facility]. I advised her pt is not a candidate for the high intensity rehab [facility]. Patient is a PS 4 and unable to follow commands. He cannot participate in 3-4 hr/day of rehab and he cannot follow directions. is not agreeable to comfort care today and advised me to ask her tomorrow, she initially agreed to meet at 10am then later asked me to meet with her at 3pm. We also specifically discussed CPR and how that would not be advisable in context of patient's current illness, PS and frailty. Both she and family (sons x2 + their mom/patient's ex-) were all in agreement for NO CPR and code status was changed to reflect this, he is now DNR/DNI. Patient's demonstrated a clear difficulty reconciling his terminal dementia and the symptoms that present with that terminal stage of illness as well as the changes that occur when someone we love is transitioning from a process of living to a process of dying. She was alternately telling me she wants him to be kept comfortable and then outlining to me the various interventions she feels he needs such as IV fluids, tube feedings, [facility], etc. I gently but consistently advised her that pt is in a terminal/end stage of his progressive and incurable dementia along with all the expected changes we see with this terminal stage of illness. I provided her guidance from the lewy body society as well as routine dementia information for families on alz.org and we discussed the goals of hospice as a patient service and the goals of care; we discussed EOL trajectories and transitions aziza the emotional impact of realizing mortality as a concrete reality from prior abstract considerations. Pt was reassured that no matter where they are along this trajectory, they are not alone - their medical team will remain by their side through their journey. Discussed the pros/cons of accepting help when especially weakened and distressed by pain-whic h would also help provide relief/decrease caregiver burden/strain. Patient's has a formal medicolegal and financial POA. She states patient was given option to add a living will when they completed their estate planning but he refused. She states she POA documents were completed when his dementia worsened. I asked her to bring a copy tomorrow for scanning into the EMR. After the meeting, patient's sons and ex- asked what rights they may have, sons asking "don't we have any say in what happens to our dad?" I advised I could not provide guidance on this matter and perhaps consulting an associate attorney would better provide clarity on [facility] law for these issues, especially in light of POA. I also recommended they ask [employer], a public service of the U.S. Administration on Aging which helps with connecting you to services for older adults and their families. You can reach them at or https://eldercare.[facility].gov/Public/Index.aspx Patient's is high information seeking but does not have a strong clinical base of knowledge. It was also clear that she was not able to comprehend a lot of the discussion without repeated explanation, perhaps due to language barrier. I have offered a vocational rehabilitation teacher for future meetings and encourage all providers to do the same. (3) Lewy body dementia: (4) Parkinson's disease: (5) Septic shock: (6) Weakness: (7) CAD (coronary artery disease): Plan Very lengthy, very detailed family meeting as outlined above. Complex family dynamics and desire from hi adult children to be more engaged in medical surrogate decision making in absence of an advance directive HOWEVER patient's current is medical POA and I am unsure if this would supersede [place] Act 169 Act 169 gives guidance for the Health Care Counter Intelligence Agent in the absence of a proxy or guardian, any member of the following, in descending order of priority, who is reasonably available, may make health care decisions on behalf of the patient: 1. Spouse (unless divorce is pending) 2. An adult child 3. A parent 4. An adult brother or sister 5. An adult grandchild 6. An adult who has knowledge of the patients preferences and values and is able to assess how the patient would make health care decisions. Individuals who are not competent when a medical decision needs to be made, the decision maker should be chosen in the following order: 1. A Health Care Agent 2. A Guardian of the individuals person 3. A Health Care Counter Intelligence Agent 4. The Facility Director: The MH/MR Act of 1965 has been interpreted to allow the patients associated residential services provider to make medical decisions when the patient is not competent and does not have involved family members. Thank you for allowing us to participate in the ongoing care of this patient. Please don't hesitate to call or page with any additional concerns. Dr. Mica Salazar DNP Director, Palliative Care Admission and Anticipated Discharge Date Admission Date: February 03, 2023 Subjective palliative med follow up extubated today at bedside: returned from [facility] overnight Also present: 2 of patient's 3 sons and his ex - of 30 years/mother of the 3 sons - all here from [place] patient remains confused. unable to follow commands. non verbal; no focus and no tracking when entering room or trying to engage brief summary: this 87yo male was reportedly on hospice at [facility] until he presented for evaluation of UTI/sepsis. 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 He came to ED encephalopathic, hypoxic and was subsequently intubated at request of spouse because [place] the time of his admission; when contacted, she wanted him intubated/full code status until she returned. In ICU he showed escalating vasopressor requirement for ongoing mgt of his sepsis with hypovolemia & hypernatremia. Review of Systems Review of Systems: Unobtainable due to cognitive status Physical Exam Physical Exam: Frail, cachectic elderly male bitemp wasting perrla, sluggish, does not track pharynx pink, dentition poor, +drooling secretions neck supple, no stridor lungs with bilat rhonchi, few crackles, no wheeze/limited anterior exam s1s2, +murmur abd scaphoid, BS+ +villasenor contractures BUE/BLE trace edema BLE patient unable to follow commands, non verbal skin pale, cool, scatt ecchymoses Results & Data Vital Signs (Past 12 Hours) Vital Signs Temp Pulse Pulse Resp BP Pulse Ox O2 Del Method 02/06/23 12:00 36.8 C 68 14 95 02/06/23 12:00 99/51 L 02/06/23 11:00 36.8 C 60 19 93 02/06/23 11:00 88/50 L 02/06/23 10:00 37.1 C 67 22 92 02/06/23 10:00 88/48 L 02/06/23 09:00 37.2 C 67 21 94 02/06/23 09:00 124/63 02/06/23 08:00 37.2 C 60 15 95 02/06/23 07:00 37.2 C 60 16 94 02/06/23 07:00 96/56 L 02/06/23 08:00 Mechanical Vent 02/06/23 08:00 02/06/23 09:00 63 95 02/06/23 09:00 61 18 95 Nasal Cannula 02/06/23 07:56 60 15 96 02/06/23 07:45 60 17 95 02/06/23 05:00 37.1 C 60 15 122/73 95 Mechanical Vent 02/06/23 04:00 37.1 C 61 17 122/70 93 Mechanical Vent 02/06/23 03:00 37.2 C 62 16 121/61 93 Mechanical Vent 02/06/23 02:37 37.2 C 62 15 91/57 L 94 02/06/23 04:00 02/06/23 04:00 129/55 L 02/06/23 04:21 62 16 98 02/06/23 02:00 37.4 C 60 14 102/42 L 93 Mechanical Vent O2 Flow Rate FiO2 02/06/23 12:00 02/06/23 12:00 02/06/23 11:00 02/06/23 11:00 02/06/23 10:00 02/06/23 10:00 02/06/23 09:00 02/06/23 09:00 02/06/23 08:00 02/06/23 07:00 02/06/23 07:00 02/06/23 08:00 30 02/06/23 08:00 35 02/06/23 09:00 02/06/23 09:00 2 02/06/23 07:56 35 02/06/23 07:45 35 02/06/23 05:00 30 02/06/23 04:00 30 02/06/23 03:00 30 02/06/23 02:37 02/06/23 04:00 30 02/06/23 04:00 02/06/23 04:21 30 02/06/23 02:00 30 Laboratory Results data reviewed Diagnostic Findings data reviewed PG Care Time/CCT Total # of Minutes Spent Total Time Spent: 120 Total Time Spent with Patient: Total time spent is greater than 50% in coordination of care (as documented) at patient's floor/unit and/or counseling patient: Prolonged Care Time Prolonged Care Time: Yes [place] [address] SUB INP/OBS CARE 3/50MIN Patient Type Established History Comprehensive Exam Comprehensive Medical Decision Making High Complexity Diagnoses Palliative care by specialist Z51.5 Discussion about advance care planning held with family member Z71.0 Lewy body dementia G31.83; F02.80 Parkinson's disease G20 Septic shock A41.9; R65.21 Weakness R53.1 CAD (coronary artery disease) I25.10 Additional Codes Prolonged Care Time - Prolonged Care Time: Yes ([id number])
--- NOTE | 2023-02-06 15:18 | Hospitalist Progress Note ---
Date of Service February 06, 2023 Assessment & Plan (1) Septic shock: (2) Acute hypernatremia: (3) Acute renal failure (ARF): (4) Goals of care, counseling/discussion: Plan Patient is an 87 yr male presents from [facility] with septic shock, renal failure. Revoked hospice for ED admission per request who is traveling from [facility]. Pt intubated. Admitting team confirmed NO CPR, defibrillation, cardioversion in the event of cardiac arrest. Continue pressors with hope of w marcos arriving from [facility]. Grave prognosis. Septic Shock: Staph Bacteremia Left lower lobe pneumonia secondary to aspiration Recent month long admission with urosepsis; was recently on Hospice --Blood Cultures: Staph species -- Sputum culture: Klebsiella pneumoniae, Liliana albicans --ECHO: Mild concentric LVH. Septal motion is abnormal, consistent with right ventricular pacemaker activation, left ventricle systolic function is low normal, EF 50 to 55%, bioprosthetic aortic valve, mild mitral regurgitation, grade 2 diastolic dysfunction, mild tricuspid regurgitation --Urine Culture: Noncontributory (H/O chronic Ferris, recent h/o of UTI) -- Weaned off of pressors IV fluids as per intensive care We will repeat blood cultures tomorrow Continue vancomycin, Rocephin Appreciate intensive care input Poor prognosis Palliative care following Ventilator dependent hypoxic respiratory failure Secondary to left lower lobe pneumonia due to aspiration --CXR:Endotracheal tube terminates 1.7 cm and the víctor. There is new left basilar density which may represent a developing pneumonia. Extubated on 02/06/2023 Currently saturating well on 2 L supplemental oxygen Appreciate intensive care input Acute metabolic encephalopathy Secondary to above, in setting of dementia and Hypernatremia CT head:No significant change compared to the prior study. No acute intracranial abnormality. Reorient frequently Monitor sodium levels IV fluids as per ICU team Elev. 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 Chronic anemia, hemolytic anemia as per records Aortic stenosis S/P Bioprosthetic AVR TAA S/P surgery PFO as per records SSS sp PPM not on anticoagulation secondary to bleeding/fall risk H/O TIA Resume home medications as able DVT Px: Heparin SQ Code Status DNI/DNR Poor prognosis Admission and Anticipated Discharge Date Admission Date: February 03, 2023 Subjective Patient is seen and examined at bedside Extubated this morning Currently off pressors Alert, awake but does not respond to questions Critical care and palliative care following Saturating well on 2 L supplemental oxygen Pressors weaned off Review of Systems Review of Systems: Unobtainable due to cognitive status Physical Exam Physical Exam: Physical Exam: Vitals signs as noted above General Appearance:Elderly, Ill appearing, no apparent distress Head: normocephalic, Atraumatic Eyes: normal inspection, EOMI Neck: supple, Trachea midline Respiratory/Chest: Decreased breath sounds, CTA, No accessory muscle use Cardiovascular: S1, S2, + murmur Abdomen/GI:Soft, Non tender, Bowel sounds present Extremities/Musculoskeletal:normal inspection, 1+ pedal edema Neurologic/Psych:Alert, awake, non responsive, doesn't follow commands Skin: normal color, warm Results & Data Results & Data Vital Signs (Past 12 Hours) Vital Signs Temp Pulse Pulse Resp BP Pulse Ox O2 Del Method 02/06/23 12:00 36.8 C 68 14 95 02/06/23 12:00 99/51 L 02/06/23 11:00 36.8 C 60 19 93 02/06/23 11:00 88/50 L 02/06/23 10:00 37.1 C 67 22 92 02/06/23 10:00 88/48 L 02/06/23 09:00 37.2 C 67 21 94 02/06/23 09:00 124/63 02/06/23 08:00 37.2 C 60 15 95 02/06/23 07:00 37.2 C 60 16 94 02/06/23 07:00 96/56 L 02/06/23 08:00 Mechanical Vent 02/06/23 08:00 02/06/23 09:00 63 95 02/06/23 09:00 61 18 95 Nasal Cannula 02/06/23 07:56 60 15 96 02/06/23 07:45 60 17 95 02/06/23 05:00 37.1 C 60 15 122/73 95 Mechanical Vent 02/06/23 04:00 37.1 C 61 17 122/70 93 Mechanical Vent 02/06/23 04:00 02/06/23 04:00 129/55 L 02/06/23 04:21 62 16 98 O2 Flow Rate FiO2 02/06/23 12:00 02/06/23 12:00 02/06/23 11:00 02/06/23 11:00 02/06/23 10:00 02/06/23 10:00 02/06/23 09:00 02/06/23 09:00 02/06/23 08:00 02/06/23 07:00 02/06/23 07:00 02/06/23 08:00 30 02/06/23 08:00 35 02/06/23 09:00 02/06/23 09:00 2 02/06/23 07:56 35 02/06/23 07:45 35 02/06/23 05:00 30 02/06/23 04:00 30 02/06/23 04:00 30 02/06/23 04:00 02/06/23 04:21 30 Laboratory Results Short CBC 02/06/23 Range/Units 05:20 WBC 16.35 H (4.8-10.8) K/ul Hgb 10.5 L (14.0-18.0) g/dl Hct 32.6 L (42.0-52.0) % Plt Count 132 (130-400) K/uL BMP 02/06/23 05:20 Sodium 151 H Potassium 3.6 Chloride 117 H Carbon Dioxide 25 BUN 99 H Creatinine 3.71 H D Glucose 162 H Calcium 7.6 L
[2023-02-07] MEDS: INSULIN ASPART PER UNIT CHARGE SC SCH ×7 (00:49→23:59)
[2023-02-07 05:27] LABS: Basophils # (auto) 0.02 K/uL (0-0.2); Basophils % (auto) 0.2 %; Eosinophils # (auto) 0.11 K/uL (0-0.50); Eosinophils % (auto) 0.8 %; Hematocrit (blood only) 33.5 % (42.0-52.0); Hemoglobin 10.9 g/dl (14.0-18.0); Immature Granulocytes # (auto) 0.09 K/uL (0.01-0.20); Immature Granulocytes % (auto) 0.7 %; Lymphocytes # (auto) 0.61 K/uL (1.2-3.4); Lymphocytes % (auto) 4.6 %; Mean Corpuscular Hemoglobin 30.7 pg (25.0-34.0); Mean Corpuscular Hgb Conc 32.5 g/dL (32.0-36.0); Mean Corpuscular Volume 94.4 fL (80.0-100.0); Mean Platelet Volume 12.8 fL (9.4-12.4); Monocytes # (auto) 0.75 K/uL (0.11-0.59); Monocytes % (auto) 5.7 %; Neutrophils # (auto) 11.64 K/uL (1.40-6.50); Platelet Count 140 K/uL (130-400); RDW Coefficient of Variation 13.8 % (11.5-14.5); RDW Standard Deviation 47.9 fL (36.4-46.3); Red Blood Count 3.55 M/uL (4.70-6.10); White Blood Count 13.22 K/ul (4.8-10.8)
[2023-02-07 05:28] LABS: BUN Creatinine Ratio 31.2 (10-20); Calcium 7.9 mg/dl (8.6-10.3); Est GFR (African American) 24.6 ml/min; Est GFR (Non-African American) 21.2 ml/min; Magnesium 1.9 mg/dl (1.7-2.4); Phosphorus 3.1 mg/dl (2.5-4.9); Potassium 3.6 mmol/L (3.5-5.1)
[2023-02-07] MEDS: MAGNESIUM SULFATE / D5W 1 GM/100 ML BAG IV SCH ×2 (08:41→10:39)
[2023-02-07] MEDS: POTASSIUM CHLORIDE / WTR 20 MEQ/100 ML PLCT IV SCH ×3 (08:41→13:04)
[2023-02-07] MEDS: DEXTROSE 5% 1,000 ML IV SCH ×2 (08:42→15:30)
[2023-02-07] MEDS: HEPARIN SOD 5,000 UNIT/0.5 ML VIAL SQ SCH ×2 (08:42→20:13)
--- NOTE | 2023-02-07 08:42 | Critical Care Progress Note ---
Date of Service February 07, 2023 Assessment & Plan (1) Septic shock: (2) AMS (altered mental status): (3) Acute hypernatremia: (4) Acute renal failure (ARF): (5) Sepsis: (6) Acute UTI (urinary tract infection): (7) Dementia: (8) Parkinson's disease: (9) Lewy body dementia: Plan Reason Critically Ill: 87 YOM recently on hospice until to day for end stage parkinson/lewy body dementia with complications of chronic UTI/sepsis. Patient arrive encephalopathic, hypoxic and was subsequently intubated following reported residence of hospice care by spouse. [place]. Patient requiring increasing needs of vasopressors in the setting of sepsis and hypovolemia hypernatremia. 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, contractures CAM ICU: Unable to assess secondary to underlying disease Cardiac -Shock, CAD with CABG hx, Hypovolemia - Shock multifactorial at this time but predominantly hypovolemic and septic shock --> off vasopressor support since 02/06/2023 - PPM- AAIR with mode switch to DDDR - low rate 60, upper rate 130 -- Elevated troponins Likely secondary to type II ME Continue to trend Respiratory -Hypoxic respiratory failure in the setting of severe dementia and failure to thrive -- S/p VDRF --> extubated 02/06/2023 Likely secondary to left lower lobe pneumonia from aspiration GI -Transaminitis with increased INR --> trending down - likely secondary to hypotension as well as some aspect of deficiency from poor PO intake RENAL/LYTES - --Hypernatremia Continue with D5 water IV -- HERSON --> Improving Likely from dehydration, patient likely in ATN Monitor BUN/creatinine Avoid nephrotoxic medications Strict ins and outs -Chronic Ferris, chronic UTI - Ferris replaced ENDO - -Continue with ICU hyperglycemic protocol HEME -No acute needs ID -Septic shock with bacteremia, MRSE - Covered sources at this time to include pulmonary (HCAP), and UTI with chronic indwelling Ferris - respiratory biofire negative -Continue with antibiotic --Repeat blood cultures 02/05/2023 a re actually negative, lab corrected their mistake and called on 02/07/2023 to make us aware --Pansensitive Klebsiella in the sputum Continue with antibiotic Liliana in the sputum is likely contaminant -- DNR/DNI --Prophylaxis VTE: Heparin GI: Pantoprazole Lines: Left IJ, right radial Diet: N.p.o. Plan: In/out: -337, urine output 2680 Magnesium and potassium being replaced Give D5 water at 150 mL an hour for total of 2 L, repeat BMP later today Patient stable to be downgraded to medical floor Overall prognosis is guarded DC TLC prior to downgrade. Patient hemodynamically stable to be downgraded out of the ICU. Case was discussed with Dr. Fontanez Please note the above document was generated using voice recognition software. It may contain grammatical, syntax or spelling errors.Any formal questions or concerns about the content, text or information contained within the body of t his dictation should be directly addressed to the provider for clarification. Admission and Anticipated Discharge Date Admission Date: February 03, 2023 Subjective Patient seen and examined at bedside. No acute distress, no adverse events overnight Patient was extubated 02/06/2023. He is on nasal cannula saturating well MAP is in the low 70s. Has been afebrile. Review of Systems Review of Systems: All systems reviewed & are unremarkable except as noted in Subjective Physical Exam Physical Exam: Constitutional: No acute distress HEENT: PERRLA, arcus senilis bilaterally Respiratory system: Decreased air entry bilaterally, no wheeze, no rhonchi, positive crackles bilateral lower lobes, more on the left side CVS: S1-S2 positive, 2 out of 6 systolic murmur appreciated best at aorta, bioprosthetic heart sounds, accentuated P2 Abdomen: Soft, nontender, nondistended, positive bowel sounds x4 Extremities: +2 pulses bilaterally radialis/ dorsalis pedis, no cyanosis, +1 pitting edema bilateral lower extremity Neuro: Awake, alert, not answering any questions Psych: Flat mood and affect G/U: Positive Ferris Skin: no rashes, warm and dry Lymphatic: no cervical or axillary lymphadenopathy Results & Data Results & Data Vital Signs (Past 12 Hours) Vital Signs Temp Pulse Resp BP Pulse Ox O2 Del Method O2 Flow Rate 02/07/23 06:01 37.1 C 61 17 116/67 95 2 02/07/23 06:00 37.1 C 60 17 95 2 02/07/23 05:01 37.0 C 70 18 124/74 94 2 02/07/23 04:01 37.0 C 60 18 109/61 94 Nasal Cannula 2 02/07/23 03:00 60 20 122/74 94 2 02/07/23 02:00 60 18 115/61 94 2 02/07/23 01:01 60 21 130/60 94 2 02/07/23 00:00 37.0 C 62 17 111/57 L 94 2 02/06/23 23:00 37.0 C 62 16 110/59 L 94 2 02/06/23 22:00 37.2 C 64 18 103/60 93 2 02/06/23 21:00 37.5 C 67 27 H 94/54 L 92 2 02/07/23 04:00 129/52 L 02/07/23 00:00 62 02/07/23 00:00 63 131/52 L Laboratory Results 02/07/23 04:47 02/07/23 04:47 Coding Level of Care Code 20756 SUB INP/OBS CARE 3/50MIN Diagnoses Septic shock A41.9; R65.21 AMS (altered mental status) R41.82 Acute hypernatremia E87.0 Acute renal failure (ARF) N17.9 Sepsis A41.9 Acute UTI (urinary tract infection) N39.0 Dementia F03.90 Parkinson's disease G20 Lewy body dementia G31.83; F02.80
[2023-02-07] MEDS: THIAMINE HCL 100 MG in SYRINGE 9 ML IV SCH (08:43)
[2023-02-07] MEDS ORDERED: CALCIUM GLUCONATE 10% 1,000 MG in DEXTROSE 5% 50 ML IV ONE (10:00)
--- NOTE | 2023-02-07 10:22 | Pharmacy Report ---
Pharmacy PK ABX Note - Date of Service February 07, 2023 - Assessment and Plan Assessment 87 year old M receiving IV Vancomycin and ceftriaxone for treatment of severe sepsis secondary to pneumonia/bacteremia. Day # 4 of antimicrobial therapy. 02/04: Level this morning was 9.1 ~ 12 hours after loading dose. Patient appears to be clearing more than expected. Another one time dose was administered this morning. Will obtain another random this evening to help guide dosing given re nal function. 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 02/05: Bcx updates to staph species growing in 3/4 bottles. Biofire indicates MRSE. Gram negative bacilli resulted sputum cx. Scr improved again today and Patient with 2 L urine output yesterday. Given scr, but evident clearance, it continues to be difficult to determine a consistent dosing regimen for vancomycin. Will continue to dose conservatively, but with frequent levels to ensure maintaining therapeutic levels. 02/06: BCx from 02/03 (+) Staph spp in /. Biofire (+) MRSE. Sensitivities are still pending. Sputum cx (+) Klebsiella pneumoniae, riggs-sensitive. Zosyn de- escalated to ceftriaxone. SCr continues to down trend with good UOP. Patient has been receiving vanc 750mg ~ q12h and demonstrating some accumulation. Still unable to determine a consistent dosing strategy given rapidly changing renal function. Will continue to dose by levels. 02/07: Blood culture from 02/03 now finalized as 2 separate Coag Negative Staph not lugdunensis, one MRSE and other is pansensitive (likely Staph epi as well). 02/05 blood cultures were updated this morning to no longer be growing anything. Discussed on rounds and provider would like 10-14 days from first set of negative blood cultures for vancomycin (last dose 02/17/23) and 10 days for ceftriaxone (last dose 02/15/23). SCr improved today which was expected secondary to good UOP yesterday. Random level this AM was 16.2 mcg/mL, which is therapeutic. Will continue to dose per levels for now given changing renal function. Plan Vancomycin * Random Level this morning was 16.2 mcg/ml. * Redosed with 750mg X 1 @ ~11 today * Repeat random level ordered for: 02/08/23 w/ AM labs Pharmacy will continue to follow and will adjust dose/frequency as necessary. Thank you.
[2023-02-07] MEDS ORDERED: VANCOMYCIN HCL 750 MG in SODIUM CHLORIDE 0.9% 250 ML IV ONE (10:30)
[2023-02-07] MEDS: PANTOprazole 40 MG in SYRINGE 0 ML IV SCH (10:40)
[2023-02-07] MEDS: cefTRIAXone SODIUM 2,000 MG in DEXTROSE 5% 50 ML IV SCH (11:06)
[2023-02-07] MEDS ORDERED: fentaNYL citrate PF 100 MCG/2 ML VIAL IV PRN (13:42)
[2023-02-07 16:01] LABS: BUN Creatinine Ratio 31.1 (10-20); Calcium 8.2 mg/dl (8.6-10.3); Creatinine Clr Calc Pharmacy 25.5 ml/min; Est GFR (African American) 27.8 ml/min; Magnesium 2.4 mg/dl (1.7-2.4)
--- NOTE | 2023-02-07 17:00 | Hospitalist Progress Note ---
Date of Service February 07, 2023 Assessment & Plan (1) Septic shock: (2) Acute hypernatremia: (3) Acute renal failure (ARF): (4) Goals of care, counseling/discussion: Plan Patient is an 87 yr male presents from [facility] with septic shock, renal failure. Revoked hospice for ED admission per request who is traveling from [facility]. Pt intubated. Admitting team confirmed NO CPR, defibrillation, cardioversion in the event of cardiac arrest. Continue pressors with hope of w marcos arriving from [facility]. Grave prognosis. Septic Shock: Staph Bacteremia Left lower lobe pneumonia secondary to aspiration Recent month long admission with urosepsis; was recently on Hospice --Blood Cultures: Coagulase-negative staph -- Sputum culture: Klebsiella pneumoniae, Liliana albicans --Repeat blood cultures negative to date --ECHO: Mild concentric LVH. Septal motion is abnormal, consistent with right ventricular pacemaker activation, left ventricle systolic function is low normal, EF 50 to 55%, bioprosthetic aortic valve, mild mitral regurgitation, grade 2 diastolic dysfunction, mild tricuspid regurgitation --Urine Culture: Noncontributory (H/O chronic Ferris, recent h/o of UTI) -- Weaned off of pressors Continue IV fluids Continue vancomycin (For 2 weeks), Rocephin (For 7 days) Appreciate intensive care input Poor prognosis Palliative care following Likely poor candidate for PEG tube placement given history of esophageal dysmotility Ventilator dependent hypoxic respiratory failure Secondary to left lower lobe pneumonia due to aspiration --CXR:Endotracheal tube terminates 1.7 cm and the víctor. There is new left basilar density which may represent a developing pneumonia. Extubated on 02/06/2023 Currently saturating well on 2 L supplemental oxygen Appreciate intensive care input Acute metabolic encephalopathy Secondary to above, in setting of dementia and Hypernatremia CT head:No significant change compared to the prior study. No acute intracranial abnormality. Reorient frequently Monitor sodium levels IV fluids as per ICU team No improvement in mental status We will consider nephrology tomorrow if hypernatremia persists Elev. 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 Chronic anemia, hemolytic anemia as per records Aortic stenosis S/P Bioprosthetic AVR TAA S/P surgery PFO as per records SSS sp PPM not on anticoagulation secondary to bleeding/fall risk H/O TIA Resume home medications as able DVT Px: Heparin SQ Code Status DNI/DNR Poor prognosis Admission and Anticipated Discharge Date Admission Date: February 03, 2023 Subjective Patient is seen and examined at bedside Unable to obtain any history No distress on exam Discussed with [facility] team and patient's at bedside Electrolytes replaced renal function improving Review of Systems Review of Systems: All systems reviewed & are unremarkable except as noted in Subjective Physical Exam Physical Exam: Physical Exam: Vitals signs as noted above General Appearance:Elderly, Ill appearing, no apparent distress Head: normocephalic, Atraumatic Eyes: normal inspection, EOMI Neck: supple, Trachea midline Respiratory/Chest: Decreased breath sounds, CTA, No accessory muscle use Cardiovascular: S1, S2, + murmur Abdomen/GI:Soft, Non tender, Bowel sounds present Extremities/Musculoskeletal:normal inspection, 1+ pedal edema Neurologic/Psych:Alert, awake, non responsive, doesn't follow commands Skin: normal color, warm Results & Data Results & Data Vital Signs (Past 12 Hours) Vital Signs Temp Pulse Resp BP Pulse Ox O2 Del Method O2 Flow Rate 02/07/23 08:00 Nasal Cannula 2 02/07/23 13:01 143/72 H 02/07/23 13:01 60 21 90 02/07/23 13:00 64 19 91 02/07/23 12:00 62 20 93 02/07/23 12:00 126/66 02/07/23 11:00 73 20 95 02/07/23 11:00 130/71 02/07/23 10:02 72 21 92 02/07/23 10:02 121/68 02/07/23 10:00 66 24 93 02/07/23 09:02 106/71 02/07/23 09:02 36.9 C 72 23 94 02/07/23 09:00 36.9 C 60 23 94 02/07/23 08:01 36.9 C 60 20 95 02/07/23 08:01 122/59 L 02/07/23 08:00 36.9 C 65 19 95 02/07/23 07:01 117/63 02/07/23 07:01 37.0 C 65 18 95 02/07/23 07:00 37.0 C 60 26 H 95 02/07/23 08:00 61 116/67 02/07/23 06:01 37.1 C 61 17 116/67 95 2 02/07/23 06:00 37.1 C 60 17 95 2 02/07/23 05:01 37.0 C 70 18 124/74 94 2 Laboratory Results Short CBC 02/07/23 Range/Units 04:47 WBC 13.22 H (4.8-10.8) K/ul Hgb 10.9 L (14.0-18.0) g/dl Hct 33.5 L (42.0-52.0) % Plt Count 140 (130-400) K/uL BMP 02/07/23 02/07/23 02/07/23 04:47 15:09 15:09 Sodium 152 H 153 H Cancelled Potassium 3.6 4.0 Cancelled Chloride 119 H 118 H Cancelled Carbon Dioxide 24 26 Cancelled BUN 81 H 73 H Cancelled Creatinine 2.60 H D 2.35 H Cancelled Glucose 131 H 164 H Cancelled Calcium 7.9 L 8.2 L Cancelled
[2023-02-08] MEDS: INSULIN ASPART PER UNIT CHARGE SC SCH ×5 (04:52→21:19)
[2023-02-08] MEDS ORDERED: D5W AND 1/2NSS 1,000 ML IV ONE (05:13)
[2023-02-08 06:10] LABS: Basophils # (auto) 0.01 K/uL (0-0.2); Basophils % (auto) 0.1 %; Eosinophils % (auto) 1.2 %; Immature Granulocytes # (auto) 0.05 K/uL (0.01-0.20); Immature Granulocytes % (auto) 0.6 %; Lymphocytes % (auto) 9.3 %; Mean Corpuscular Hemoglobin 29.9 pg (25.0-34.0); Mean Corpuscular Hgb Conc 32.3 g/dL (32.0-36.0); Mean Corpuscular Volume 92.8 fL (80.0-100.0); Mean Platelet Volume 12.9 fL (9.4-12.4); Monocytes # (auto) 0.73 K/uL (0.11-0.59); Monocytes % (auto) 8.4 %; Neutrophils # (auto) 6.95 K/uL (1.40-6.50); Neutrophils % (auto) 80.4 %; Platelet Count 152 K/uL (130-400); RDW Coefficient of Variation 13.8 % (11.5-14.5); RDW Standard Deviation 46.5 fL (36.4-46.3); Red Blood Count 3.34 M/uL (4.70-6.10); White Blood Count 8.64 K/ul (4.8-10.8)
[2023-02-08 06:28] LABS: BUN Creatinine Ratio 31.4 (10-20); Calcium 7.8 mg/dl (8.6-10.3); Creatinine Clr Calc Pharmacy 31.3 ml/min; Est GFR (African American) 35.7 ml/min; Est GFR (Non-African American) 30.8 ml/min; Magnesium 2.2 mg/dl (1.7-2.4); Phosphorus 2.6 mg/dl (2.5-4.9); Potassium 3.6 mmol/L (3.5-5.1)
[2023-02-08] MEDS ORDERED: CALCIUM GLUCONATE 10% 1,000 MG in DEXTROSE 5% 50 ML IV ONE (08:09)
[2023-02-08] MEDS ORDERED: STAT IV STA (08:09)
--- NOTE | 2023-02-08 08:16 | Nephrology Consultation ---
Date of Consultation February 08, 2023 Assessment & Plan (1) Hypernatremia: agree with current D5W and 1/2 NS w/ 20 mEq / L K at 150 ml/hr >looks as though in the course of the day tube feeds were started along with free water flushes > advance free water flushes as tolerated -daily bmp (2) Acute renal failure (ARF): prerenal and improving daily; baseline creatinine 0.9. -cont IV fluids -avoid nephrotoxins -daily bmp History of Present Illness Reason for Consultation: hypernatremia Requesting Physician: Dr Fontanez Attending Physician: Dada Fontanez MD History of Present Illness 87 y/o M whom I'm asked to see for hypernatremia was admitted here 02/03 w/ multifactorial septic shock attributed to healthcare acquired/aspiration pneumonia and urinary tract infection in setting of chronic villasenor. His sodium on presentation was 164, down to 153 today. This facility resident has advanced Parkinson's disease and Lewy body dementia with failure to thrive. Other PMH includes CAD s/p CABG/stenting, TIA, aortic stenosis s/p bioprosthetic AVR, thoracic aortic aneurysm status post repair, PFO, sick sinus syndrome s/p pacer not on AC, HTN, TIA, chronic anemia (baseline hemoglobin 11-12 ), esophageal dysmotility/dysphagia. He had been on hospice but spouse revoked this so he could come to ER. Prior to presentation in ER he'd had very little po intake for several days. He was intubated in ER for airway protection and started on pressors for hypotension. His baseline creatinine is 0.9-1.0; it was 5.9 on presentation w/ steady improvement to 1.9 today. He is slated to start D5 1/2 NS w/ 20 mEq/L potassium chloride at 150 ml/hr today, in part b/c her blood pressure has been rather soft overnight through this am. Prior to this for the past 36-48 hrs had been receiving D5W. Allergies Allergy/AdvReac Type Severity Reaction Status Date / Time No Known Allergies Allergy Verified 12/19/22 11:15 Home Medications Medication Instructions Recorded Confirmed Type atorvastatin 20 mg tablet (Lipitor) 20 mg PO QPM #30 tabs 09/11/21 02/03/23 Rx carbidopa 25 mg-levodopa 100 mg 1 tab PO BID #60 tabs 09/11/21 02/03/23 Rx tablet sennosides 8.6 mg-docusate sodium 1 tab PO QAM #30 tabs 09/11/21 02/03/23 Rx 50 mg tablet (Senokot-S) acetaminophen 325 mg tablet 650 mg PO Q4H PRN PAIN/FEVER 09/12/22 02/03/23 History (Tylenol) aspirin 81 mg tablet,delayed 81 mg PO QAM 09/12/22 02/03/23 History release donepezil 5 mg tablet 5 mg PO QAM 09/12/22 02/03/23 History metoprolol tartrate 25 mg tablet 25 mg PO QAM 09/12/22 02/03/23 History polyethylene glycol 3350 17 gram 17 g PO QAM 09/12/22 02/03/23 History oral powder packet (Miralax) Patient History Medical History Aortic aneurysm Aortic stenosis Atrial fibrillation CAD (coronary artery disease) Dementia Discussion about advance care planning held with family member Goals of care, counseling/discussion Hemolytic anemia HLD (hyperlipidemia) HTN (hypertension) Left rib fracture [facility] resident Pacemaker Pacemaker battery depletion Palliative care by specialist Parkinsons disease Rhabdomyolysis Septic shock T12 compression fracture Surgical History H/O prosthetic heart valve History of cataract surgery right Hx of heart bypass surgery Social History Smoking Status: Unknown if ever smoked Hx Substance Use: No Preferred Language: Tajik Communication Ability: Unable Visual Impairment: No Limitations Hearing Ability: Normal Mirror Framer Required: No Beliefs That Will Affect Care: None marital status: Current Living Situation: [facility] Current Living Situation Comment: resident at [facility] Feels Safe at Home: Declines to Answer Assistive Devices: Wheelchair Review of Systems Review of Systems: Unobtainable due to cognitive status Physical Exam Constitutional: well developed, + thin, + frail appearing and + lethargic; no acute distress lying on his R side in position ENMT: Ears: no external ear abnormality Nose: no external nose abnormality Mouth: + dry oral mucous membranes Neck: no nuchal rigidity Respiratory: normal respiratory effort Auscultation: + diminished lung sounds Cardiovascular: RRR, no murmur, no edema Gastrointestinal (Abdomen): Inspection/Auscultation: normal bowel sounds Percussion/Palpation: abdomen soft; abdomen nontender Musculoskeletal: Extremities: strength 5/5 throughout Skin: no rashes, warm and dry pressure points w/ sores (hips) Neurologic: no tremor, opens eyes briefly after extended interaction, does not track/move/follow cds Genitourinary: villasenor w/ light yellow urine Results & Data Vital Signs (Past 12 Hours) Vital Signs Temp Pulse Resp BP Pulse Ox O2 Del Method O2 Flow Rate 02/08/23 06:00 37.2 C 66 20 94 02/08/23 06:00 94/56 L 02/08/23 05:58 37.2 C 65 21 95 02/08/23 05:58 94/43 L 02/08/23 05:28 37.3 C 71 24 94 02/08/23 05:28 79/59 L 02/08/23 05:06 83/48 L 02/08/23 05:06 37.3 C 69 23 94 02/08/23 05:02 37.3 C 63 24 94 02/08/23 05:02 81/44 L 02/08/23 05:00 37.3 C 68 22 94 02/08/23 05:00 77/53 L 02/08/23 04:00 37.4 C 69 21 95 02/08/23 04:00 100/54 L 02/08/23 00:00 60 02/08/23 03:47 18 02/08/23 03:00 37.4 C 72 21 95 02/08/23 03:00 121/66 02/08/23 02:00 37.4 C 67 21 95 02/08/23 02:00 113/66 02/08/23 01:01 37.6 C H 70 22 94 02/08/23 01:01 121/81 02/08/23 01:00 37.6 C H 74 20 91 02/08/23 00:45 37.7 C H 76 24 02/08/23 00:45 123/75 02/08/23 00:00 37.8 C H 60 20 91 02/08/23 00:00 106/55 L 02/07/23 23:00 109/57 L 02/07/23 20:15 Nasal Cannula 2 02/07/23 23:00 37.8 C H 60 20 92 02/07/23 22:00 37.7 C H 61 22 93 02/07/23 22:00 121/61 02/07/23 21:00 37.7 C H 62 23 92 Laboratory Results 02/08/23 05:43 02/08/23 05:43
[2023-02-08] MEDS: D5W AND 1/2NSS + 20MEQ KCL 20 MEQ/1,000 ML BAG IV SCH ×2 (09:04→16:46)
[2023-02-08] MEDS: POTASSIUM CHLORIDE / WTR 10 MEQ/100 ML PLCT IV SCH ×3 (09:06→11:04)
[2023-02-08] MEDS: VANCOMYCIN HCL 750 MG in DEXTROSE 5% 250 ML IV SCH (09:12)
--- NOTE | 2023-02-08 09:25 | Palliative Care Progress Note ---
Date of Service February 07, 2023 This is a late entry note for visit completed 02/07/2023 Assessment & Plan (1) Palliative care by specialist: (2) Discussion about advance care planning held with family member: Plan: I had a 45min follow-up, detailed, goals of care discussion with patient's at the bedside today. She continues to perseverate on "he needs nutrition, the IV for hydrating, and the infection must be managed." She appears unable to fully comprehend what it means to have a terminal or end-stage Lewy body dementia. Because of her struggles understanding the progressive changes of end-stage Lewy body dementia, I brought for her today patient and family resources for education about the progression of Lewy body dementia printed out from the Lewy body dementia Society's website. I also provided her from the same website a Lewy body symptom checklist so that she may use this on her own to assess his stage of Lewy body dementia. Finally I provided her with an article about end-of-life care and decisions for Lewy body dementia. Unfortunately, patient's continues to perseverate on wanting him to have treatment for his infection, nutrition and hydration. She says that if he cannot eat, then he needs to be evaluated for his swallow and he should have swallow therapy. 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 I advised her that it is unlikely he would be able to participate in a swallow exam much less swallow therapy. I asked her with sincerity to please read the educational materials and I provided so that she may begin to develop a better understanding of Lewy body dementia and the changes that patient is experiencing which from a medical perspective is normal for the process of a late stage or terminal end- stage Lewy body dementia. I advised her that it is my medical opinion patient is in an end-of-life process and that the most compassionate plan of action would be to pursue a comfort focused plan of care. She then reiterated all of her many complaints about the care he was receiving at [facility] along with her complaints about the hospice agency. I advised her that she can speak with care management with regards to seeking placement at another nursing facility and perhaps they have a contract with a different hospice. I also provided her with in-depth and detailed education about bringing him home with hospice at which point she could choose the agency she wants to use but she advised me that she does not want to bring him home with hospice and does not want to provide his care around the clock. Patient's shared a relatively recent traumatic loss of approximately a year ago: Her mother became sick and so she traveled to [facility] to help care for her. This was during COVID. Unfortunately her mother's illness progressed and ultimately required hospitalization and during the course of the hospitalization, no visitation was allowed due to COVID restrictions. Her mother subsequently during that admission, from respiratory related complications, but her happened overnight and while she was sleeping. She feels that this was an acceptable because "my mother had treatment for her infection and then in her sleep." She continues to struggle however with the fact that she was not there when her mother and that she could not be with her through her dying process. She tells me that this is in part why she insisted everything be done when patient became ill because she was away in [facility] and knew she would need time to come home and she did not want him to without her being here. She tells me alternately that she wants him to be comfortable and she understands this is end-stage but that also she wants things treated. I do not feel she has a good understanding of the complexity or the terminal nature of his illness. I hope that she will read the educational materials that I have provided for her. Additionally it may be helpful to have a future meeting with the use of a translating service to help assure that everything we are saying is very clearly being communicated. Although she tells me she understands what we are discussing, she will perseverate on certain issues and often repeat things back to me before then asking a question about a previously discussed topic which to me demonstrates that she did not grasp the material we discussed. Patient's struggles with letting him go with what she feels may be treatable problems. She is unable to define what "getting better" actually looks like to her and her expectations for him to dramatically improve with speech therapy or artificial nutrition and hydration are not aligned with the reality of his medical condition. She also notes that there are significant family dynamics and that she does not have a very close or personal relationship with his adult children. She shares with me that she is known patient for over 20 years. They were in the last 6 years. During that time she states that his children had no contact with him for nearly a decade. 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 He emigrated from the [place] and was at various institutions through the [place]. In his 600+ publications including textbooks and other writings, Dr. Ozuna introduced a new concept of immunology, Immunogenetics, was the first to include in an immunology textbook sections emphasizing the importance of the so-called non-adaptive immune system (NAIS; he preferred to call it non-anticipatory) and gave immunology a logical internal structure. He organized it as a science operating with specialized organs, cells, genes, molecules, mechanisms, phenotypes, and functions. His work redefined immunogenetics: he spent 25 years as director of the Immunogenetics Division of the [facility] [employer] in [place] as well as leading book editor of the journal Immunogenetics. Due to his efforts, he was awarded the [employer] Add[employer]ar Medal in 2002. 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 His , Natty who has published with him as well, shares that he was a very analytical and philosophical person, who provided himself on his intelligence and he very much enjoyed his career in the field of genetics. She tells me that it is very hard to see him in this condition knowing that others may not be is aware of his intelligence in his current state. I concluded the meeting by asking her to please read the education materials that I provided for her today. I advised her again that he is in an end-stage of a disease that is not fixable or improvable. I also advised her that the symptoms we are seeing him suffer from such as chronic aspiration, weakness and lack of eating and drinking are all consistent with an end-stage or terminal illness. This can be seen across the board and all medical illnesses as they reach their terminal stages however it becomes more profound and more dramatic and dementia. I have asked her to consider what he would want in this situation knowing that he is at an end-stage of an illness that is not curable or reversible. She tells me that she will do her best to try and review the materials and think about everything we have discussed. (3) Lewy body dementia: Plan: Patient has reached stage VII, or end-stage Lewy body dementia. At this stage patient's demonstrate the following: Severe cognitive decline, urine and bowel incontinence, loss ability to communicate, increased frailty, trouble taking p .o., chronically aspirating, sleep more, unable to walk and full care for all ADLs, personal hygiene, toileting etc. additionally, patients at this stage have in general a profound weakening of their immune system which predisposes them to a higher risk of infections and will often be the most common cause of for patients with dementia. Symptoms of the dying process for patients with dementia include a rapid deterioration, loss of consciousness, loss of the ability to swallow, restlessness or agitation, changes in breathing pattern, respiratory secretions/rattling breath sounds, and coolness or coldness of the lower extremities. (4) Parkinson's disease: (5) Septic shock: (6) Weakness: (7) CAD (coronary artery disease): Plan Lewy body dementia is the second most common neurodegenerative dementia in the [place] despite which little remains known of its end-of-life experiences for individuals and their families. Ongoing counseling, support, symptom management for patients and their families with Lewy body dementia comprise essential end-of-life care. I have had extensive discussions with pt as well as his sons and ex , documented previously. The sons and ex report prior wishes expressed by patient for no aggressive or heroic end-of-life care. More specifically, his ex-, to whom he was for almost 30 years, he expressed a clear desire for compassionate and comfort focused end-of-life care. Patient's current states that they had no such discussions about his desires or preferences for end-of-life care. In fact when they were having some estate planning completed, he refused to address advance care planning at that time. In the interim, his dementia rapidly progressed and he is no longer decisional. She then had to pursue legal power of senior attorney status for his medical, legal and financial decision making. She remains his medical healthcare surrogate per his medical POA documentation. She provided a copy of this for us today which I have handed over to nursing for inclusion in the EMR. Patient's struggles with letting him go with what she feels may be treat able problems. She is unable to define what "getting better" actually looks like to her and her expectations for him to dramatically improve with speech therapy or artificial nutrition and hydration are not aligned with the reality of his medical condition. She also notes that there are significant family dynamics and that she does not have a very close or personal relationship with his adult children. She shares with me that she is known patient for over 20 years. They were in the last 6 years. During that time she states that his children had no contact with him for nearly a decade. 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 He emigrated from the [place] and was at various institutions through the . In his 600+ publications including textbooks and other writings, Dr. Ozuna introduced a new concept of immunology, Immunogenetics, was the first to include in an immunology textbook sections emphasizing the importance of the so-called non-adaptive immune system (NAIS; he preferred to call it non-anticipatory) and gave immunology a logical internal structure. He organized it as a science operating with specialized organs, cells, genes, molecules, mechanisms, phenotypes, and functions. His work redefined immunogenetics: he spent 25 years as director of the Immunogenetics Division of the [employer] [employer] of [employer] in [place] as well as leading book editor of the journal Immunogenetics. Due to his efforts, he was awarded the V[employer] Mason Medal in 2002. 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 His , Natty who has published with him as well, shares that he was a very analytical and philosophic al person, who provided himself on his intelligence and he very much enjoyed his career in the field of genetics. She tells me that it is very hard to see him in this condition knowing that others may not be is aware of his intelligence in his current state. Ongoing dialogue and education with patient's is necessary to assist with her comprehension of where patient is at with an end-stage terminal dementia. It may be worthwhile to consider a multidisciplinary family meeting with her, her supports and perhaps patient's sons as well along with them medical teams caring for him via entertainment centre manager support to assure that all of the medical communication is expressed to her in a clear and concise manner and that her comprehension can be better assured without the complexity of a language barrier. Thank you for allowing us to participate in the ongoing care of this patient. Please don't hesitate to call or page with any additional concerns. Dr. Mica Salazar DNP Director, Palliative Care Admission and Anticipated Discharge Date Admission Date: February 03, 2023 Subjective Mr. Ozuna is an 87-year-old gentleman who presented from [facility] with septic shock and renal failure. At the time of his admission, [facility] was [facility] by his when notified of his illness by the [facility] because she was in [place] and wanted time [place] the [place] and to be with him in case anything happened. As result he was admitted to the hospital, intubated, required pressor support in the ICU. He is now extubated and continues to recover from his staph bacteremia. He has a left lower lobe pneumonia noted secondary to aspiration which is chronic and longstanding. He has end-stage Lewy body dementia which has been steadily worsening over the last 5 years. He [facility] because his needs cannot be managed at home by his . I have had family meetings previous to today and it is noted that patient has complex family dynamics, please see our previous note for additional details. At this time he has been downgraded from ICU status and has been approved for transfer to a [facility] floor. Overall his prognosis is extremely poor given his terminal stage of Lewy body dementia, his poor performance status of 4+, his overall progressing weakness, multiple wounds, contractures, chronic aspiration, chronic respiratory failure, chronic UTI. Review of Systems Review of Systems: Unobtainable due to cognitive status Physical Exam Physical Exam: Chronically ill-appearing elderly male, lying in bed, nonverbal. Eyes occasionally open but not purposeful and do not track. Patient with significant upper and lower body contractures. Multiple wounds, skin abrasions, skin breakdown noted. Respiratory effort mildly increased, remains on nasal oxygen. Skin is pale and cool to touch. Results & Data Vital Signs (Past 12 Hours) Vital Signs Temp Pulse Resp BP Pulse Ox 02/08/23 06:00 37.2 C 66 20 94 02/08/23 06:00 94/56 L 02/08/23 05:58 37.2 C 65 21 95 02/08/23 05:58 94/43 L 02/08/23 05:28 37.3 C 71 24 94 02/08/23 05:28 79/59 L 02/08/23 05:06 83/48 L 02/08/23 05:06 37.3 C 69 23 94 02/08/23 05:02 37.3 C 63 24 94 02/08/23 05:02 81/44 L 02/08/23 05:00 37.3 C 68 22 94 02/08/23 05:00 77/53 L 02/08/23 04:00 37.4 C 69 21 95 02/08/23 04:00 100/54 L 02/08/23 00:00 60 02/08/23 03:47 18 02/08/23 03:00 37.4 C 72 21 95 02/08/23 03:00 121/66 02/08/23 02:00 37.4 C 67 21 95 02/08/23 02:00 113/66 02/08/23 01:01 37.6 C H 70 22 94 02/08/23 01:01 121/81 02/08/23 01:00 37.6 C H 74 20 91 02/08/23 00:45 37.7 C H 76 24 02/08/23 00:45 123/75 02/08/23 00:00 37.8 C H 60 20 91 02/08/23 00:00 106/55 L 02/07/23 23:00 109/57 L 02/07/23 23:00 37.8 C H 60 20 92 02/07/23 22:00 37.7 C H 61 22 93 02/07/23 22:00 121/61 Laboratory Results Data reviewed Diagnostic Findings data reviewed PG Care Time/CCT Total # of Minutes Spent Total Time Spent: 78 Total Time Spent with Patient: Total time spent is greater than 50% in coordination of care (as documented) at patient's floor/unit and/or counseling patient: Advanced Care Planning 52224 Advanced Care Planning 30 Min C[place] [address] SUB INP/OBS CARE 3/50MIN Patient Type Established Medical Decision Making High Complexity Diagnoses Palliative care by specialist Z51.5 Discussion about advance care planning held with family member Z71.0 Lewy body dementia G31.83; F02.80 Parkinson's disease G20 Septic shock A41.9; R65.21 Weakness R53.1 CAD (coronary artery disease) I25.10 Additional Codes Advanced Care Planning - 79594 Advanced Care Planning 30 Min: 54248 Advanced Care Planning 30 Min ([id number])
[2023-02-08] MEDS ORDERED: ALBUMIN 25% 12.5 GM/50 ML VIAL IV ONE (10:00)
[2023-02-08] MEDS: HEPARIN SOD 5,000 UNIT/0.5 ML VIAL SQ SCH ×2 (10:05→21:21)
[2023-02-08] MEDS: cefTRIAXone SODIUM 2,000 MG in DEXTROSE 5% 50 ML IV SCH (10:31)
[2023-02-08] MEDS: PANTOprazole 40 MG in SYRINGE 0 ML IV SCH (10:31)
--- NOTE | 2023-02-08 10:39 | Pharmacy Report ---
Pharmacy PK ABX Note - Date of Service February 08, 2023 - Assessment and Plan Assessment 87 year old M receiving IV Vancomycin and ceftriaxone for treatment of severe sepsis secondary to pneumonia/bacteremia. Day # 4 of antimicrobial therapy. 02/04: Level this morning was 9.1 ~ 12 hours after loading dose. Patient appears to be clearing more than expected. Another one time dose was administered this morning. Will obtain another random this evening to help guide dosing given re nal function. 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 02/05: Bcx updates to staph species growing in 3/4 bottles. Biofire indicates MRSE. Gram negative bacilli resulted sputum cx. Scr improved again today and Patient with 2 L urine output yesterday. Given scr, but evident clearance, it continues to be difficult to determine a consistent dosing regimen for vancomycin. Will continue to dose conservatively, but with frequent levels to ensure maintaining therapeutic levels. 02/06: BCx from 02/03 (+) Staph spp in /. Biofire (+) MRSE. Sensitivities are still pending. Sputum cx (+) Klebsiella pneumoniae, riggs-sensitive. Zosyn de- escalated to ceftriaxone. SCr continues to down trend with good UOP. Patient has been receiving vanc 750mg ~ q12h and demonstrating some accumulation. Still unable to determine a consistent dosing strategy given rapidly changing renal function. Will continue to dose by levels. 02/07: Blood culture from 02/03 now finalized as 2 separate Coag Negative Staph not lugdunensis, one MRSE and other is pansensitive (likely Staph epi as well). 02/05 blood cultures were updated this morning to no longer be growing anything. Discussed on rounds and provider would like 10-14 days from first set of negative blood cultures for vancomycin (last dose 02/17/23) and 10 days for ceftriaxone (last dose 02/15/23). SCr improved today which was expected secondary to good UOP yesterday. Random level this AM was 16.2 mcg/mL, which is therapeutic. Will continue to dose per levels for now given changing renal function. 02/08: Remains with low grade fevers today, 24 hr Tmax of 37.8oC. Blood cx's from 02/05/23 remain with no growth to date. Random vanc level was 16.1 mcg/mL this AM. SCr improved to 1.9 today. Improvement in SCr lags behind improvement in UOP, and UOP has remained stable for last 48 hours. Therefore, will schedule vancomycin dosing every 24 hours starting this AM. Will order another random lab for tomorrow AM to ensure level remains stable around 16 which is therapeutic. If trough level less than 15, then would consider a dose increase tomorrow. Plan Vancomycin * Random Level this morning was 16.1 mcg/ml. * Maintenance dose: 750 mg IV every 24 hours * Repeat random level ordered for: 02/09/23 w/ AM labs Pharmacy will continue to follow and will adjust dose/frequency as necessary. Thank you.
--- NOTE | 2023-02-08 15:08 | XRay Report ---
KUB CLINICAL HISTORY: NG tube placement COMPARISON STUDY: CT of the abdomen and pelvis August 27, 2021. FINDINGS: The tip of the nasogastric tube is within the body of the stomach. Median sternotomy wires are noted. Interstitial thickening and airspace opacities are better depicted on recent chest radiogr aph. IMPRESSION: Tip of nasogastric tube within the body of the stomach. ACT 112: Negative or not required by law. Electronically signed by: Nolberto Alexandre M.D. 02/08/2023 3:06 PM
[2023-02-08] MEDS: FIBERSOURCE HN 1.2 CAL 1000 ML BAG NG SCH (15:35)
[2023-02-08] MEDS: TUBE FEEDING WATER FLUSH GT SCH ×3 (15:35→21:41)
--- NOTE | 2023-02-08 15:58 | Hospitalist Progress Note ---
Date of Service February 08, 2023 Assessment & Plan (1) Septic shock: (2) Acute hypernatremia: (3) Acute renal failure (ARF): (4) Goals of care, counseling/discussion: Plan Patient is an 87 yr male presents from [facility] with septic shock, renal failure. Revoked hospice for ED admission per request who is traveling from [facility]. Pt intubated. Admitting team confirmed NO CPR, defibrillation, cardioversion in the event of cardiac arrest. Continue pressors with hope of w marcos arriving from [facility]. Grave prognosis. Septic Shock: Staph Bacteremia Left lower lobe pneumonia secondary to aspiration Recent month long admission with urosepsis; was recently on Hospice --Blood Cultures: Coagulase-negative staph -- Sputum culture: Klebsiella pneumoniae, Liliana albicans --Repeat blood cultures negative to date --ECHO: Mild concentric LVH. Septal motion is abnormal, consistent with right ventricular pacemaker activation, left ventricle systolic function is low normal, EF 50 to 55%, bioprosthetic aortic valve, mild mitral regurgitation, grade 2 diastolic dysfunction, mild tricuspid regurgitation --Urine Culture: Noncontributory (H/O chronic Ferris, recent h/o of UTI) -- Weaned off of pressors Continue IV fluids Continue vancomycin (For 2 weeks), Rocephin (For 7-10 days) Appreciate intensive care input Poor prognosis Palliative care following Likely poor candidate for PEG tube placement given history of esophageal dysmotility/Advanced dementia Start on Tube feeds until final decision made by family Patient's POA agrees to no escalation of care Ventilator dependent hypoxic respiratory failure Secondary to left lower lobe pneumonia due to aspiration --CXR:Endotracheal tube terminates 1.7 cm and the víctor. There is new left basilar density which may represent a developing pneumonia. Extubated on 02/06/2023 Currently saturating well on 2 L supplemental oxygen Appreciate intensive care input Acute metabolic encephalopathy Secondary to above, in setting of dementia and Hypernatremia CT head:No significant change compared to the prior study. No acute intracranial abnormality. Reorient frequently Monitor sodium levels IV fluids as per ICU team No improvement in mental status Elev. troponin Troponin level 400's on admission - likely type II CT, secondary to above Monitor Acute Hypernatremia: Na: 164>>155>153 Continue IV fluids Monitor Sodium levels Consulted Nephrology Acute Renal Failure: Creatinine 5.93; Prior provider confirmed with patient's , no dialysis -HERSON due to dehydration, ATN -Cr 3.71>2.35> 1.91 Monitor renal function H/O Esophageal dysmotility H/O dementia Goals of care need to be addressed Consulted speech therapy Likely poor candidate for PEG tube Ng Tube feeds for now Hypocalcemia Replace electrolytes as needed Monitor Chronic Ferris - Ferris was replaced 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 Chronic anemia, hemolytic anemia as per records Aortic stenosis S/P Bioprosthetic AVR TAA S/P surgery PFO as per records SSS sp PPM not on anticoagulation secondary to bleeding/fall risk H/O TIA Resume home medications as able DVT Px: Heparin SQ Code Status DNI/DNR Poor prognosis Admission and Anticipated Discharge Date Admission Date: February 03, 2023 Subjective Patient is seen and examined at bedside Patient unable to obtain any history Discussed with patient's at bedside Hypernatremia un improved Family prefers to continue current medications Will start on Tube feeds Was hypotensive this morning which improved with IV fluids Palliative care following Review of Systems Review of Systems: Unobtainable due to cognitive status Physical Exam Physical Exam: Physical Exam: Vitals signs as noted above General Appearance:Elderly, Ill appearing, no apparent distress Head: normocephalic, Atraumatic Eyes: normal inspection, EOMI Neck: supple, Trachea midline Respiratory/Chest: Decreased breath sounds, CTA, No accessory muscle use Cardiovascular: S1, S2, + murmur Abdomen/GI:Soft, Non tender, Bowel sounds present Extremities/Musculoskeletal:normal inspection, 1+ pedal edema Neurologic/Psych:Alert, awake, non responsive, doesn't follow commands Skin: normal color, warm Results & Data Results & Data Vital Signs (Past 12 Hours) Vital Signs Temp Pulse Resp BP Pulse Ox O2 Del Method O2 Flow Rate 02/08/23 15:01 37.4 C 60 23 117/73 91 Room Air 02/08/23 15:00 37.4 C 65 22 91 Room Air 02/08/23 14:00 37.3 C 60 24 148/75 H 95 Nasal Cannula 2 02/08/23 13:00 37.2 C 62 20 119/70 95 Nasal Cannula 2 02/08/23 12:00 37.1 C 60 17 139/72 96 Room Air 02/08/23 11:01 37.1 C 60 16 122/66 96 Room Air 02/08/23 08:00 Nasal Cannula 2 02/08/23 10:01 37.1 C 72 20 154/77 H 94 Room Air 02/08/23 09:00 37.0 C 63 18 134/57 L 96 Room Air 02/08/23 08:00 37.0 C 63 21 104/61 96 Room Air 02/08/23 07:38 37.0 C 62 16 96/49 L 96 Room Air 02/08/23 06:00 37.2 C 66 20 94 02/08/23 06:00 94/56 L 02/08/23 05:58 37.2 C 65 21 95 02/08/23 05:58 94/43 L 02/08/23 05:28 37.3 C 71 24 94 02/08/23 05:28 79/59 L 02/08/23 05:06 83/48 L 02/08/23 05:06 37.3 C 69 23 94 02/08/23 05:02 37.3 C 63 24 94 02/08/23 05:02 81/44 L 02/08/23 05:00 37.3 C 68 22 94 02/08/23 05:00 77/53 L 02/08/23 04:00 37.4 C 69 21 95 02/08/23 04:00 100/54 L Laboratory Results Short CBC 02/08/23 Range/Units 05:43 WBC 8.64 (4.8-10.8) K/ul Hgb 10.0 L (14.0-18.0) g/dl Hct 31.0 L (42.0-52.0) % Plt Count 152 (130-400) K/uL BMP 02/07/23 02/08/23 15:09 05:43 Sodium 153 H 153 H Potassium 4.0 3.6 Chloride 118 H 121 H Carbon Dioxide 26 26 BUN 73 H 60 H Creatinine 2.35 H 1.91 H D Glucose 164 H 165 H Calcium 8.2 L 7.8 L
[2023-02-08] MEDS ORDERED: ACETAMINOPHEN 1,000 MG/100 ML VIAL IV PRN (21:28)
[2023-02-09] MEDS: D5W AND 1/2NSS + 20MEQ KCL 20 MEQ/1,000 ML BAG IV SCH ×2 (00:15→04:51)
[2023-02-09] MEDS: INSULIN ASPART PER UNIT CHARGE SC SCH ×6 (00:40→19:56)
[2023-02-09] MEDS: TUBE FEEDING WATER FLUSH GT SCH ×6 (02:15→23:19)
[2023-02-09 06:50] LABS: Basophils # (auto) 0.01 K/uL (0-0.2); Basophils % (auto) 0.1 %; Eosinophils # (auto) 0.22 K/uL (0-0.50); Eosinophils % (auto) 2.5 %; Hematocrit (blood only) 34.9 % (42.0-52.0); Hemoglobin 11.1 g/dl (14.0-18.0); Immature Granulocytes # (auto) 0.04 K/uL (0.01-0.20); Immature Granulocytes % (auto) 0.4 %; Lymphocytes # (auto) 0.99 K/uL (1.2-3.4); Mean Corpuscular Hemoglobin 30.3 pg (25.0-34.0); Mean Corpuscular Hgb Conc 31.8 g/dL (32.0-36.0); Mean Corpuscular Volume 95.4 fL (80.0-100.0); Mean Platelet Volume 12.9 fL (9.4-12.4); Monocytes # (auto) 0.69 K/uL (0.11-0.59); Monocytes % (auto) 7.7 %; Neutrophils # (auto) 7.02 K/uL (1.40-6.50); Neutrophils % (auto) 78.3 %; Platelet Count 183 K/uL (130-400); RDW Standard Deviation 48.4 fL (36.4-46.3); Red Blood Count 3.66 M/uL (4.70-6.10); White Blood Count 8.97 K/ul (4.8-10.8)
[2023-02-09 07:15] LABS: BUN Creatinine Ratio 26.5 (10-20); Calcium 7.9 mg/dl (8.6-10.3); Creatinine Clr Calc Pharmacy 38.4 ml/min; Est GFR (African American) 43.6 ml/min; Est GFR (Non-African American) 37.6 ml/min; Phosphorus 2.1 mg/dl (2.5-4.9); Potassium 4.3 mmol/L (3.5-5.1)
[2023-02-09] MEDS: VANCOMYCIN HCL 750 MG in DEXTROSE 5% 250 ML IV SCH (08:38)
[2023-02-09] MEDS: HEPARIN SOD 5,000 UNIT/0.5 ML VIAL SQ SCH ×2 (08:38→20:00)
[2023-02-09] MEDS ORDERED: STAT IV STA (09:39)
[2023-02-09] MEDS ORDERED: POTASSIUM PHOS 3 MMOL/1 ML INFUSION IV ONE (09:39)
[2023-02-09] MEDS ORDERED: VANCOMYCIN HCL 250 MG in DEXTROSE 5% 100 ML IV ONE (09:45)
--- NOTE | 2023-02-09 09:59 | Pharmacy Report ---
Pharmacy PK ABX Note - Date of Service February 09, 2023 - Assessment and Plan Assessment 87 year old M receiving IV Vancomycin and ceftriaxone for treatment of severe sepsis secondary to pneumonia/bacteremia. Day # 7 of antimicrobial therapy. 02/04: Level this morning was 9.1 ~ 12 hours after loading dose. Patient appears to be clearing more than expected. Another one time dose was administered this morning. Will obtain another random this evening to help guide dosing given re nal function. 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 02/05: Bcx updates to staph species growing in 3/4 bottles. Biofire indicates MRSE. Gram negative bacilli resulted sputum cx. Scr improved again today and Patient with 2 L urine output yesterday. Given scr, but evident clearance, it continues to be difficult to determine a consistent dosing regimen for vancomycin. Will continue to dose conservatively, but with frequent levels to ensure maintaining therapeutic levels. 02/06: BCx from 02/03 (+) Staph spp in /. Biofire (+) MRSE. Sensitivities are still pending. Sputum cx (+) Klebsiella pneumoniae, riggs-sensitive. Zosyn de- escalated to ceftriaxone. SCr continues to down trend with good UOP. Patient has been receiving vanc 750mg ~ q12h and demonstrating some accumulation. Still unable to determine a consistent dosing strategy given rapidly changing renal function. Will continue to dose by levels. 02/07: Blood culture from 02/03 now finalized as 2 separate Coag Negative Staph not lugdunensis, one MRSE and other is pansensitive (likely Staph epi as well). 02/05 blood cultures were updated this morning to no longer be growing anything. Discussed on rounds and provider would like 10-14 days from first set of negative blood cultures for vancomycin (last dose 02/17/23) and 10 days for ceftriaxone (last dose 02/15/23). SCr improved today which was expected secondary to good UOP yesterday. Random level this AM was 16.2 mcg/mL, which is therapeutic. Will continue to dose per levels for now given changing renal function. 02/08: Remains with low grade fevers today, 24 hr Tmax of 37.8oC. Blood cx's from 02/05/23 remain with no growth to date. Random vanc level was 16.1 mcg/mL this AM. SCr improved to 1.9 today. Improvement in SCr lags behind improvement in UOP, and UOP has remained stable for last 48 hours. Therefore, will schedule vancomycin dosing every 24 hours starting this AM. Will order another random lab for tomorrow AM to ensure level remains stable around 16 which is therapeutic. If trough level less than 15, then would consider a dose increase tomorrow. 02/09: Renal function improving to 1.62 today. Stable UOP. Random level this AM (~21hr level) - 14.3mcg/mL; true trough even lower. Given improving renal function, will give an additional 250mg IV X 1 dose this AM and increase the dose to 1gm q24h. Will continue with AM levels given ongoing changes in renal function and SCr lagging behind true renal function. Plan Vancomycin * Random Level this morning was 14.3 mcg/ml. * Maintenance dose: 1000mg IV every 24 hours * Repeat random level ordered for: 02/10/23 w/ AM labs Pharmacy will continue to follow and will adjust dose/frequency as necessary. Thank you.
[2023-02-09] MEDS ORDERED: CALCIUM GLUCONATE 10% 1,000 MG in DEXTROSE 5% 50 ML IV ONE (10:00)
[2023-02-09] MEDS ORDERED: POTASSIUM PHOSPHATE 21 MMOL in SODIUM CHLORIDE 0.9% 500 ML IV ONE (10:00)
[2023-02-09] MEDS: PANTOprazole 40 MG in SYRINGE 0 ML IV SCH (12:00)
[2023-02-09] MEDS: POTASSIUM CHLORIDE 20 MEQ in DEXTROSE 5% 1,000 ML IV SCH ×2 (12:01→17:24)
[2023-02-09] MEDS: cefTRIAXone SODIUM 2,000 MG in DEXTROSE 5% 50 ML IV SCH (12:04)
--- NOTE | 2023-02-09 16:44 | Hospitalist Progress Note ---
Date of Service February 09, 2023 Assessment & Plan (1) Septic shock: (2) Acute hypernatremia: (3) Acute renal failure (ARF): (4) Goals of care, counseling/discussion: Plan Patient is an 87 yr male presents from [facility] with septic shock, renal failure. Revoked hospice for ED admission per request who is traveling from [facility]. Pt intubated. Admitting team confirmed NO CPR, defibrillation, cardioversion in the event of cardiac arrest. Continue pressors with hope of w marcos arriving from [facility]. Grave prognosis. Septic Shock: Staph Bacteremia Left lower lobe pneumonia secondary to aspiration Recent month long admission with urosepsis; was recently on Hospice --Blood Cultures: Coagulase-negative staph -- Sputum culture: Klebsiella pneumoniae, Liliana albicans --Repeat blood cultures negative to date --ECHO: Mild concentric LVH. Septal motion is abnormal, consistent with right ventricular pacemaker activation, left ventricle systolic function is low normal, EF 50 to 55%, bioprosthetic aortic valve, mild mitral regurgitation, grade 2 diastolic dysfunction, mild tricuspid regurgitation --Urine Culture: Noncontributory (H/O chronic Ferris, recent h/o of UTI) -- Weaned off of pressors Continue vancomycin (For 2 weeks), Rocephin (For 7-10 days) Appreciate intensive care input Poor prognosis Palliative care following Likely poor candidate for PEG tube placement given history of esophageal dysmotility/Advanced dementia Patient's POA agrees to no escalation of care Continue tube feeds Continue IV fluids Blood pressure stable Ventilator dependent hypoxic respiratory failure Secondary to left lower lobe pneumonia due to aspiration --CXR:Endotracheal tube terminates 1.7 cm and the víctor. There is new left basilar density which may represent a developing pneumonia. Extubated on 02/06/2023 Currently saturating well on 2 L supplemental oxygen Appreciate intensive care input Acute metabolic encephalopathy Secondary to above, in setting of dementia and Hypernatremia CT head:No significant change compared to the prior study. No acute intracranial abnormality. Reorient frequently Monitor sodium levels No significant improvement in mental status Elev. troponin Troponin level 400's on admission - likely type II [place], secondary to above Monitor Acute Hypernatremia: Na: 164>>155>152 Appreciate nephrology input Started on D5 water Monitor sodium levels closely Acute Renal Failure: Creatinine 5.93; Prior provider confirmed with patient's , no dialysis -HERSON due to dehydration, ATN -Cr 3.71>2.35> 1.91>1.6 Monitor renal function H/O Esophageal dysmotility H/O dementia Goals of care need to be addressed Consulted speech therapy Likely poor candidate for PEG tube Continue NG tube feeds for now Hypocalcemia Replace electrolytes as needed Monitor Chronic Ferris - Ferris was replaced 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 Chronic anemia, hemolytic anemia as per records Aortic stenosis S/P Bioprosthetic AVR TAA S/P surgery PFO as per records SSS sp PPM not on anticoagulation secondary to bleeding/fall risk H/O TIA Resume home medications as able DVT Px: Heparin SQ Code Status DNI/DNR Poor prognosis Admission and Anticipated Discharge Date Admission Date: February 03, 2023 Subjective Patient is seen and examined at bedside Patient unable to obtain any history Patient's family disease mental status slowly improving On tube feeds Febrile overnight Started on D5 water for hypernatremia Discussed with patient's at bedside BP stable Review of Systems Review of Systems: All systems reviewed & are unremarkable except as noted in Subjective Physical Exam Physical Exam: Physical Exam: Vitals signs as noted above General Appearance:Elderly, Ill appearing, no apparent distress Head: normocephalic, Atraumatic Eyes: normal inspection, EOMI Neck: supple, Trachea midline Respiratory/Chest: Decreased breath sounds, CTA, No accessory muscle use Cardiovascular: S1, S2, + murmur Abdomen/GI:Soft, Non tender, Bowel sounds present Extremities/Musculoskeletal:normal inspection, 1+ pedal edema Neurologic/Psych:Alert, awake, non responsive, doesn't follow commands Skin: normal color, warm Results & Data Results & Data Vital Signs (Past 12 Hours) Vital Signs Temp Pulse Resp BP Pulse Ox O2 Del Method O2 Flow Rate 02/09/23 15:49 36.4 C L 77 18 132/71 99 02/09/23 11:45 37.6 C H 67 23 147/80 H 95 02/09/23 08:00 71 02/09/23 08:00 Nasal Cannula 2 02/09/23 07:32 36.6 C 71 19 154/74 H 95 02/09/23 05:34 Nasal Cannula 2 02/09/23 05:33 37.2 C 61 20 136/73 61 L 02/09/23 04:49 37 C 60 22 142/80 H 95 Nasal Cannula 2 Laboratory Results Short CBC 02/09/23 Range/Units 06:19 WBC 8.97 (4.8-10.8) K/ul Hgb 11.1 L (14.0-18.0) g/dl Hct 34.9 L (42.0-52.0) % Plt Count 183 (130-400) K/uL BMP 02/09/23 06:19 Sodium 152 H Potassium 4.3 Chloride 122 H Carbon Dioxide 25 BUN 43 H Creatinine 1.62 H Glucose 141 H Calcium 7.9 L
--- NOTE | 2023-02-09 19:07 | Nephrology Progress Note ---
Date of Service February 09, 2023 Assessment & Plan (1) Hypernatremia: Plan: changed IVF this am to D5W w/ 20 K at 150 ml/hr w/ recheck labs this PM > these are stillpending > advance free water flushes as tolerated -daily bmp (2) Acute renal failure (ARF): Plan: prerenal and improving daily; baseline creatinine 0.9. -cont IV fluids -avoid nephrotoxins -daily bmp Admission and Anticipated Discharge Date Admission Date: February 03, 2023 Subjective seen on afternoon rounds; eyes open but not interactive; has new NG (new to me on exam) and getting TF and FWF Review of Systems Review of Systems: Unobtainable due to cognitive status Physical Exam 2 Constitutional: well developed, + thin, + frail appearing and + lethargic; no acute distress ENMT: Ears: no external ear abnormality Nose: no external nose abnormality Mouth: + dry oral mucous membranes and + poor dentition Neck: no nuchal rigidity Respiratory: normal respiratory effort Auscultation: + diminished lung sounds Cardiovascular: RRR, no murmur, no edema Gastrointestinal (Abdomen): Inspection/Auscultation: normal bowel sounds Percussion/Palpation: abdomen soft; abdomen nontender Musculoskeletal: Extremities: strength 5/5 throughout Skin: no rashes, warm and dry Results & Data Vital Signs (Past 12 Hours) Vital Signs Temp Pulse Resp BP Pulse Ox O2 Del Method O2 Flow Rate 02/09/23 18:54 36.4 C L 63 18 137/67 98 02/09/23 15:49 36.4 C L 77 18 132/71 99 02/09/23 11:45 37.6 C H 67 23 147/80 H 95 02/09/23 08:00 71 02/09/23 08:00 Nasal Cannula 2 02/09/23 07:32 36.6 C 71 19 154/74 H 95 Laboratory Results 02/09/23 06:19
[2023-02-09 19:19] LABS: BUN Creatinine Ratio 24.2 (10-20); Calcium 7.9 mg/dl (8.6-10.3); Creatinine Clr Calc Pharmacy 40.7 ml/min; Est GFR (African American) 46.7 ml/min; Est GFR (Non-African American) 40.3 ml/min; Phosphorus 2.4 mg/dl (2.5-4.9); Potassium 4.4 mmol/L (3.5-5.1)
[2023-02-10] MEDS: POTASSIUM CHLORIDE 20 MEQ in DEXTROSE 5% 1,000 ML IV SCH ×4 (00:11→20:09)
[2023-02-10] MEDS: INSULIN ASPART PER UNIT CHARGE SC SCH ×6 (00:17→21:16)
[2023-02-10] MEDS: TUBE FEEDING WATER FLUSH GT SCH ×6 (02:36→21:17)
[2023-02-10] MEDS: FIBERSOURCE HN 1.2 CAL 1000 ML BAG NG SCH ×2 (04:39→23:09)
[2023-02-10 06:33] LABS: Basophils # (auto) 0.02 K/uL (0-0.2); Basophils % (auto) 0.2 %; Eosinophils % (auto) 2.1 %; Hematocrit (blood only) 32.2 % (42.0-52.0); Hemoglobin 10.2 g/dl (14.0-18.0); Immature Granulocytes # (auto) 0.06 K/uL (0.01-0.20); Immature Granulocytes % (auto) 0.6 %; Lymphocytes # (auto) 0.91 K/uL (1.2-3.4); Lymphocytes % (auto) 9.5 %; Mean Corpuscular Hemoglobin 30.4 pg (25.0-34.0); Mean Corpuscular Hgb Conc 31.7 g/dL (32.0-36.0); Mean Corpuscular Volume 96.1 fL (80.0-100.0); Mean Platelet Volume 12.5 fL (9.4-12.4); Monocytes # (auto) 0.75 K/uL (0.11-0.59); Monocytes % (auto) 7.8 %; Neutrophils # (auto) 7.65 K/uL (1.40-6.50); Neutrophils % (auto) 79.8 %; Platelet Count 187 K/uL (130-400); RDW Standard Deviation 48.2 fL (36.4-46.3); Red Blood Count 3.35 M/uL (4.70-6.10); White Blood Count 9.59 K/ul (4.8-10.8)
[2023-02-10 06:54] LABS: BUN Creatinine Ratio 24.3 (10-20); Calcium 7.4 mg/dl (8.6-10.3); Creatinine Clr Calc Pharmacy 45.7 ml/min; Est GFR (African American) 53.8 ml/min; Est GFR (Non-African American) 46.5 ml/min; Magnesium 1.8 mg/dl (1.7-2.4); Phosphorus 2.2 mg/dl (2.5-4.9); Potassium 4.3 mmol/L (3.5-5.1)
[2023-02-10] MEDS ORDERED: VANCOMYCIN LEVEL ONE (07:00)
[2023-02-10] MEDS ORDERED: VANCOMYCIN HCL 1,000 MG in DEXTROSE 5% 250 ML IV SCH (08:00)
[2023-02-10] MEDS: HEPARIN SOD 5,000 UNIT/0.5 ML VIAL SQ SCH ×2 (08:06→19:57)
[2023-02-10] MEDS ORDERED: POTASSIUM PHOS 3 MMOL/1 ML INFUSION IV ONE (09:34)
[2023-02-10] MEDS ORDERED: STAT IV STA (09:35)
--- NOTE | 2023-02-10 09:58 | Pharmacy Report ---
Pharmacy PK ABX Note - Date of Service February 10, 2023 - Assessment and Plan Assessment 87 year old M receiving IV Vancomycin and ceftriaxone for treatment of severe sepsis secondary to pneumonia/bacteremia. Day # 7 of antimicrobial therapy. 02/04: Level this morning was 9.1 ~ 12 hours after loading dose. Patient appears to be clearing more than expected. Another one time dose was administered this morning. Will obtain another random this evening to help guide dosing given re nal function. 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 02/05: Bcx updates to staph species growing in 3/4 bottles. Biofire indicates MRSE. Gram negative bacilli resulted sputum cx. Scr improved again today and Patient with 2 L urine output yesterday. Given scr, but evident clearance, it continues to be difficult to determine a consistent dosing regimen for vancomycin. Will continue to dose conservatively, but with frequent levels to ensure maintaining therapeutic levels. 02/06: BCx from 02/03 (+) Staph spp in /. Biofire (+) MRSE. Sensitivities are still pending. Sputum cx (+) Klebsiella pneumoniae, riggs-sensitive. Zosyn de- escalated to ceftriaxone. SCr continues to down trend with good UOP. Patient has been receiving vanc 750mg ~ q12h and demonstrating some accumulation. Still unable to determine a consistent dosing strategy given rapidly changing renal function. Will continue to dose by levels. 02/07: Blood culture from 02/03 now finalized as 2 separate Coag Negative Staph not lugdunensis, one MRSE and other is pansensitive (likely Staph epi as well). 02/05 blood cultures were updated this morning to no longer be growing anything. Discussed on rounds and provider would like 10-14 days from first set of negative blood cultures for vancomycin (last dose 02/17/23) and 10 days for ceftriaxone (last dose 02/15/23). SCr improved today which was expected secondary to good UOP yesterday. Random level this AM was 16.2 mcg/mL, which is therapeutic. Will continue to dose per levels for now given changing renal function. 02/08: Remains with low grade fevers today, 24 hr Tmax of 37.8oC. Blood cx's from 02/05/23 remain with no growth to date. Random vanc level was 16.1 mcg/mL this AM. SCr improved to 1.9 today. Improvement in SCr lags behind improvement in UOP, and UOP has remained stable for last 48 hours. Therefore, will schedule vancomycin dosing every 24 hours starting this AM. Will order another random lab for tomorrow AM to ensure level remains stable around 16 which is therapeutic. If trough level less than 15, then would consider a dose increase tomorrow. 02/09: Renal function improving to 1.62 today. Stable UOP. Random level this AM (~21hr level) - 14.3mcg/mL; true trough even lower. Given improving renal function, will give an additional 250mg IV X 1 dose this AM and increase the dose to 1gm q24h. Will continue with AM levels given ongoing changes in renal function and SCr lagging behind true renal function. 02/10: Renal function continues to improve, SCr 1.36. Stable UOP. Random level this AM (~ 19hr level)- 13.9mcg/mL predicted to achieve a steady state AUC of 313 which is subtherapeutic. Given renal function approaching baseline, will give a supplemental dose of vanc this AM for total 1500mg and schedule 1500mg q24h. Plan Vancomycin * Random Level this morning was 13.9 mcg/ml * Maintenance dose: Increase to 1500mg IV every 24 hours * Predicted to achieve steady state AUC 453mg/L.hr and ss trough 15.2mcg/mL * Will obtain a level at steady state of this regimen, or sooner if clinically indicated Pharmacy will continue to follow and will adjust dose/frequency as necessary. Thank you.
[2023-02-10] MEDS ORDERED: VANCOMYCIN HCL 500 MG in DEXTROSE 5% 100 ML IV ONE (10:00)
[2023-02-10] MEDS ORDERED: CALCIUM GLUCONATE 10% 1,000 MG in DEXTROSE 5% 50 ML IV ONE (10:15)
[2023-02-10] MEDS ORDERED: POTASSIUM PHOSPHATE 21 MMOL in SODIUM CHLORIDE 0.9% 500 ML IV ONE (10:30)
[2023-02-10] MEDS: cefTRIAXone SODIUM 2,000 MG in DEXTROSE 5% 50 ML IV SCH (11:24)
[2023-02-10] MEDS: PANTOprazole 40 MG in SYRINGE 0 ML IV SCH (11:55)
--- NOTE | 2023-02-10 15:24 | Hospitalist Progress Note ---
Date of Service February 10, 2023 Assessment & Plan (1) Septic shock: (2) Acute hypernatremia: (3) Acute renal failure (ARF): (4) Goals of care, counseling/discussion: Plan Patient is an 87 yr male presents from [facility] with septic shock, renal failure. Revoked hospice for ED admission per request who is traveling from [facility]. Pt intubated. Admitting team confirmed NO CPR, defibrillation, cardioversion in the event of cardiac arrest. Continue pressors with hope of w marcos arriving from [facility]. Grave prognosis. Septic Shock: Staph Bacteremia Left lower lobe pneumonia secondary to aspiration Recent month long admission with urosepsis; was recently on Hospice --Blood Cultures: Coagulase-negative staph -- Sputum culture: Klebsiella pneumoniae, Liliana albicans --Repeat blood cultures negative to date --ECHO: Mild concentric LVH. Septal motion is abnormal, consistent with right ventricular pacemaker activation, left ventricle systolic function is low normal, EF 50 to 55%, bioprosthetic aortic valve, mild mitral regurgitation, grade 2 diastolic dysfunction, mild tricuspid regurgitation --Urine Culture: Noncontributory (H/O chronic Ferris, recent h/o of UTI) -- Weaned off of pressors Continue vancomycin (For 2 weeks), Rocephin (For 7-10 days) Appreciate intensive care input Palliative care following Likely poor candidate for PEG tube placement given history of esophageal dysmotility/Advanced dementia Patient's POA agrees to no escalation of care Continue tube feeds Continue current management Prognosis remains guarded Ventilator dependent hypoxic respiratory failure Secondary to left lower lobe pneumonia due to aspiration --CXR:Endotracheal tube terminates 1.7 cm and the víctor. There is new left basilar density which may represent a developing pneumonia. Extubated on 02/06/2023 Appreciate intensive care input Currently saturating well on 2 L supplemental oxygen Acute metabolic encephalopathy Secondary to above, in setting of dementia and Hypernatremia CT head:No significant change compared to the prior study. No acute intracranial abnormality. Reorient frequently Monitor sodium levels No significant improvement in mental status Elev. troponin Troponin level 400's on admission - likely type II AL, secondary to above Monitor Acute Hypernatremia: Na: 164>>155>152>146 Appreciate nephrology input Received D5 water Monitor sodium levels Acute Renal Failure: Creatinine 5.93; Prior provider confirmed with patient's , no dialysis -HERSON due to dehydration, ATN -Cr 3.71>2.35> 1.91>1.6>1.36 Monitor renal function H/O Esophageal dysmotility H/O dementia Goals of care need to be addressed Consulted speech therapy Likely poor candidate for PEG tube Continue NG tube feeds Hypocalcemia Replace electrolytes as needed Monitor Chronic Ferris - Ferris was replaced 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 Oriented to person only No significant change from yesterday On tube feeds Afebrile today Sodium levels improving Review of Systems Review of Systems: All systems reviewed & are unremarkable except as noted in Subjective Physical Exam Physical Exam: Physical Exam: Vitals signs as noted above General Appearance:Elderly, Ill appearing, no apparent distress Head: normocephalic, Atraumatic Eyes: normal inspection, EOMI Neck: supple, Trachea midline Respiratory/Chest: Decreased breath sounds, CTA, No accessory muscle use Cardiovascular: S1, S2, + murmur Abdomen/GI:Soft, Non tender, Bowel sounds present Extremities/Musculoskeletal:normal inspection, 1+ pedal edema Neurologic/Psych:Alert, awake, non verbal, doesn't follow commands Skin: normal color, warm Results & Data Results & Data Vital Signs (Past 12 Hours) Vital Signs Temp Pulse Resp BP Pulse Ox O2 Del Method O2 Flow Rate 02/10/23 11:11 36.9 C 65 21 138/72 92 Nasal Cannula 2 02/10/23 08:00 Nasal Cannula 2 02/10/23 07:35 37.1 C 65 21 122/64 95 Nasal Cannula 2 Laboratory Results Short CBC 02/10/23 Range/Units 05:49 WBC 9.59 (4.8-10.8) K/ul Hgb 10.2 L (14.0-18.0) g/dl Hct 32.2 L (42.0-52.0) % Plt Count 187 (130-400) K/uL BMP 02/09/23 02/10/23 18:20 05:49 Sodium 151 H 146 H Potassium 4.4 4.3 Chloride 121 H 118 H Carbon Dioxide 25 23 BUN 37 H 33 H Creatinine 1.53 H 1.36 Glucose 166 H 179 H Calcium 7.9 L 7.4 L
--- NOTE | 2023-02-10 16:30 | Nephrology Progress Note ---
Date of Service February 10, 2023 Assessment & Plan (1) Hypernatremia: Plan: Improving and due to his inability to maintain p.o. intake -Changed IVF this am to D5W w/ 20 K but lowered rate from 150 mL hourly to 50 mL hourly Increase free water flushes to 150 mL every 4 hours and would continue to advance free water flushes as tolerated; he should be advanced to maximal free water flush that he can tolerate and will need this indefinitely -daily bmp (2) Acute renal failure (ARF): Plan: prerenal and improving daily; baseline creatinine 0.9. -cont IV fluids -avoid nephrotoxins -daily bmp Some issues with low phos as tube feeds are started; continue to replete and to monitor Phos and calcium daily Admission and Anticipated Discharge Date Admission Date: February 03, 2023 Subjective no interval events. pt more alert but not interactive and does not track does not follow commands Review of Systems Review of Systems: Unobtainable due to cognitive status Physical Exam Constitutional: well developed, + thin, + frail appearing and + lethargic; no acute distress ENMT: Ears: no external ear abnormality Nose: no external nose abnormality Mouth: + dry oral mucous membranes and + poor dentition Neck: no nuchal rigidity Respiratory: normal respiratory effort Auscultation: + diminished lung sounds Cardiovascular: RRR, no murmur, no edema Gastrointestinal (Abdomen): Inspection/Auscultation: normal bowel sounds Percussion/Palpation: abdomen soft; abdomen nontender Musculoskeletal: Extremities: strength 5/5 throughout Skin: no rashes, warm and dry Results & Data Vital Signs (Past 12 Hours) Vital Signs Temp Pulse Resp BP Pulse Ox O2 Del Method O2 Flow Rate 02/10/23 15:28 36.6 C 60 18 143/68 H 94 Nasal Cannula 2 02/10/23 11:11 36.9 C 65 21 138/72 92 Nasal Cannula 2 02/10/23 08:00 Nasal Cannula 2 02/10/23 07:35 37.1 C 65 21 122/64 95 Nasal Cannula 2 Laboratory Results 02/10/23 05:49 02/10/23 05:49
[2023-02-10] MEDS: ATORVASTATIN 20 MG TAB PO SCH (19:56)
[2023-02-10] MEDS: CARBIDOPA/LEVODOPA 25/100MG TAB PO SCH (19:56)
[2023-02-11] MEDS: INSULIN ASPART PER UNIT CHARGE SC SCH ×7 (00:22→23:25)
[2023-02-11] MEDS: TUBE FEEDING WATER FLUSH GT SCH ×7 (00:29→23:26)
[2023-02-11] MEDS: POTASSIUM CHLORIDE 20 MEQ in DEXTROSE 5% 1,000 ML IV SCH ×2 (03:07→22:47)
[2023-02-11] MEDS: HEPARIN SOD 5,000 UNIT/0.5 ML VIAL SQ SCH ×2 (08:23→20:51)
[2023-02-11] MEDS: DONEPEZIL HCL 5 MG TAB PO SCH (08:23)
[2023-02-11] MEDS: VANCOMYCIN HCL 1,500 MG in DEXTROSE 5% 500 ML IV SCH (08:23)
[2023-02-11] MEDS: CARBIDOPA/LEVODOPA 25/100MG TAB PO SCH ×2 (08:24→20:33)
[2023-02-11 08:48] LABS: BUN Creatinine Ratio 24.1 (10-20); Creatinine Clr Calc Pharmacy 46.8 ml/min; Est GFR (African American) 55.3 ml/min; Est GFR (Non-African American) 47.7 ml/min; Phosphorus 2.6 mg/dl (2.5-4.9); Potassium 4.5 mmol/L (3.5-5.1)
[2023-02-11] MEDS ORDERED: ASPIRIN 81 MG ECTAB PO SCH (09:00)
[2023-02-11] MEDS ORDERED: Nursing to Pharmacy Communication SCH (09:30)
[2023-02-11] MEDS ORDERED: STAT IV STA (09:44)
[2023-02-11] MEDS ORDERED: CALCIUM GLUCONATE 10% 1,000 MG in DEXTROSE 5% 50 ML IV ONE (09:44)
--- NOTE | 2023-02-11 10:33 | Nephrology Progress Note ---
Date of Service February 11, 2023 Assessment & Plan Admission and Anticipated Discharge Date Admission Date: February 03, 2023 Subjective Assessment & Plan (1) Hypernatremia: Plan: Improving and due to his inability to maintain p.o. intake na now normal so can try to maintain with just Free h20 flushes at 200 ml q4hr. ARF and Hypernatremia because of terminal dementia caused by lack of PO intake is an absolutely feature of end stage dementia . I will speak with family tomorrow. (2) Acute renal failure (ARF): Plan: Severe prerenal type on Admission and improving daily almost close to baseline of 0.9. maintain consistent Hydration to avoid future ARF. Subjective no new issues. Labs better. Review of Systems Review of Systems: Unobtainable due to cognitive status Physical Exam Constitutional: well developed, + thin, + frail appearing and + lethargic; no acute distress ENMT: Ears: no external ear abnormality Nose: no external nose abnormality Mouth: + dry oral mucous membranes and + poor dentition Neck: no nuchal rigidity Respiratory: normal respiratory effort Auscultation: + diminished lung sounds Cardiovascular: RRR, no murmur, no edema Gastrointestinal (Abdomen): Inspection/Auscultation: normal bowel sounds Percussion/Palpation: abdomen soft; abdomen nontender Musculoskeletal: Extremities: strength 5/5 throughout Skin: no rashes, warm and dry Results & Data Vital Signs (Past 12 Hours) Vital Signs Temp Pulse Pulse Resp BP Pulse Ox O2 Del Method 02/11/23 06:00 71 02/11/23 09:30 Nasal Cannula 02/11/23 07:42 37.5 C 68 21 102/54 L 96 Room Air 02/11/23 04:59 62 93/52 L 94 Nasal Cannula 02/11/23 04:04 37.7 C H 70 18 139/76 92 Nasal Cannula 02/11/23 00:03 69 02/10/23 23:10 37.4 C 66 22 117/65 96 Nasal Cannula O2 Flow Rate 02/11/23 06:00 02/11/23 09:30 2 02/11/23 07:42 02/11/23 04:59 2 02/11/23 04:04 2 02/11/23 00:03 02/10/23 23:10 2
[2023-02-11] MEDS: ASPIRIN 81 MG CHEW PO SCH (10:36)
[2023-02-11] MEDS: ACETAMINOPHEN 325 MG TAB PO PRN (10:39)
[2023-02-11] MEDS: cefTRIAXone SODIUM 2,000 MG in DEXTROSE 5% 50 ML IV SCH (11:39)
[2023-02-11] MEDS: PANTOprazole 40 MG in SYRINGE 0 ML IV SCH (11:39)
[2023-02-11] MEDS ORDERED: INSULIN ASPART PER UNIT CHARGE SC SCH (12:00)
--- NOTE | 2023-02-11 15:16 | Palliative Care Progress Note ---
Date of Service February 11, 2023 Assessment & Plan (1) Palliative care encounter: Plan: I met with Mr. Ozuna's , Audelia, at bedside. She is grateful for the care that he is receiving. She tells me that she is a dentist and that she understands the severity of his disease. She realizes that he is likely to from a complication related to his dementia. She has spoken with multiple providers and is comfortable with the decision not to restart pressors, intubate or do CPR, if his condition would worsen. However, she feels that him starving and being dehydrated is the cause of his suffering. She is not at all comfortable with him not having artificial nutrition. She tells me that Jules had a face time visit with his niece in the [place]. As [place] is his [place] language, she asked his niece to talk with him about the idea of feeding tube. She tells me that he was very animated for this conversation and that he was in agreement with use of artificial feeding. I did not personally witness this conversation and he is not able to discuss this today. I did talk with Audelia about the use of NG feeding as a temporary solution. She acknowledges this and is insistent that she would want PEG tube despite the risks and concerns about efficacy that were discussed with her. She understands that he is approaching his dying time and does not want other life prolonging measures, but feeding is a fundamental comfort issue for her and she believes that Jules supports decision for PEG. Discussed with RN. Admission and Anticipated Discharge Date Admission Date: February 03, 2023 Subjective Lethargic, opens eyes briefly with discussion. Does not respond to discussion. Review of Systems Review of Systems: Unobtainable due to cognitive status Physical Exam Constitutional: + ill appearing Respiratory: no respiratory distress Neurologic: Speech / Cognition: + abnormal cognition Results & Data Vital Signs (Past 12 Hours) Vital Signs Temp Pulse Pulse Resp BP Pulse Ox O2 Del Method 02/11/23 11:20 99.7 F H 71 19 92/46 L 92 Nasal Cannula 02/11/23 10:39 100.6 F H 02/11/23 06:00 71 02/11/23 09:30 Nasal Cannula 02/11/23 07:42 99.5 F 68 21 102/54 L 96 Room Air 02/11/23 04:59 62 93/52 L 94 Nasal Cannula 02/11/23 04:04 99.9 F H 70 18 139/76 92 Nasal Cannula O2 Flow Rate 02/11/23 11:20 2 02/11/23 10:39 02/11/23 06:00 02/11/23 09:30 2 02/11/23 07:42 02/11/23 04:59 2 02/11/23 04:04 2 PG Care Time/CCT Total # of Minutes Spent Total Time Spent: 45 Total Time Spent with Patient: Total time spent is greater than 50% in coordination of care (as documented) at patient's floor/unit and/or counseling patient: Coding Level of Care Code 90167 SUB INP/OBS CARE 2/35MIN Diagnoses Palliative care encounter Z51.5
--- NOTE | 2023-02-11 17:46 | Hospitalist Progress Note ---
Date of Service February 11, 2023 Assessment & Plan (1) Septic shock: (2) Acute hypernatremia: (3) Acute renal failure (ARF): (4) Goals of care, counseling/discussion: Plan Patient is an 87 yr male presents from [facility] with septic shock, renal failure. Revoked hospice for ED admission per request who is traveling from [facility]. Pt intubated. Admitting team confirmed NO CPR, defibrillation, cardioversion in the event of cardiac arrest. Continue pressors with hope of w marcos arriving from [facility]. Grave prognosis. Septic Shock: Staph Bacteremia Left lower lobe pneumonia secondary to aspiration Recent month long admission with urosepsis; was recently on Hospice --Blood Cultures: Coagulase-negative staph -- Sputum culture: Klebsiella pneumoniae, Liliana albicans --Repeat blood cultures negative to date --ECHO: Mild concentric LVH. Septal motion is abnormal, consistent with right ventricular pacemaker activation, left ventricle systolic function is low normal, EF 50 to 55%, bioprosthetic aortic valve, mild mitral regurgitation, grade 2 diastolic dysfunction, mild tricuspid regurgitation --Urine Culture: Noncontributory (H/O chronic Ferris, recent h/o of UTI) -- Weaned off of pressors Continue vancomycin (For 2 weeks), Rocephin (For 7-10 days) Appreciate intensive care input Palliative care following Likely poor candidate for PEG tube placement given history of esophageal dysmotility/Advanced dementia, current infection status Patient's POA agrees to no escalation of care (pressors, CPR, intubation) Continue tube feeds Prognosis remains guarded Discussed with patient's in detail-she understands patient is deteriorating but requests to continue current treatment Palliative care following Ventilator dependent hypoxic respiratory failure Secondary to left lower lobe pneumonia due to aspiration --CXR:Endotracheal tube terminates 1.7 cm and the víctor. There is new left basilar density which may represent a developing pneumonia. Extubated on 02/06/2023 Appreciate intensive care input Currently saturating well on 2 L supplemental oxygen Acute metabolic encephalopathy Secondary to above, in setting of dementia and Hypernatremia CT head:No significant change compared to the prior study. No acute intracranial abnormality. Reorient frequently Monitor sodium levels No significant improvement in mental status Elev. troponin Troponin level 400's on admission - likely type II CA, secondary to above Monitor Acute Hypernatremia: Na: 164>>155>152>146>141 Appreciate nephrology input Received D5 water Monitor sodium levels Continue free water flushes between tube feeds Acute Renal Failure: Creatinine 5.93; Prior provider confirmed with patient's , no dialysis -[facility] due to dehydration, ATN -Cr 3.71>2.35> 1.91>1.6>1.3 Monitor renal function Appreciate nephrology input H/O Esophageal dysmotility H/O dementia Goals of care need to be addressed Consulted speech therapy Likely poor candidate for PEG tube Continue NG tube feeds Hypocalcemia Replace electrolytes as needed Monitor Chronic Ferris - Ferris was replaced 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 Chronic anemia, hemolytic anemia as per records Aortic stenosis S/P Bioprosthetic AVR TAA S/P surgery PFO as per records SSS sp PPM not on anticoagulation secondary to bleeding/fall risk H/O TIA Resumed home medications DVT Px: Heparin SQ Code Status DNI/DNR Poor prognosis Admission and Anticipated Discharge Date Admission Date: February 03, 2023 Subjective Patient is seen and examined at bedside Obtunded today Patient unable to provide any history Discussed with patient's in detail-she understands patient is deteriorating but requests to continue current treatment On tube feeds Febrile today Renal function and Sodium levels improved Review of Systems Review of Systems: Unobtainable due to reduced consciousness Physical Exam Physical Exam: Physical Exam: Vitals signs as noted above General Appearance:Elderly, Ill appearing, no apparent distress Head: normocephalic, Atraumatic Eyes: normal inspection, EOMI Neck: supple, Trachea midline Respiratory/Chest: Decreased breath sounds, CTA, No accessory muscle use Cardiovascular: S1, S2, + murmur Abdomen/GI:Soft, Non tender, Bowel sounds present Extremities/Musculoskeletal:normal inspection, 1+ pedal edema Neurologic/Psych: Obtunded Skin: normal color, warm Results & Data Results & Data Vital Signs (Past 12 Hours) Vital Signs Temp Pulse Pulse Resp BP Pulse Ox O2 Del Method 02/11/23 16:33 60 02/11/23 16:01 36.7 C 64 20 130/69 99 Nasal Cannula 02/11/23 11:20 37.6 C H 71 19 92/46 L 92 Nasal Cannula 02/11/23 10:39 38.1 C H 02/11/23 06:00 71 02/11/23 09:30 Nasal Cannula 02/11/23 07:42 37.5 C 68 21 102/54 L 96 Room Air O2 Flow Rate 02/11/23 16:33 02/11/23 16:01 2 02/11/23 11:20 2 02/11/23 10:39 02/11/23 06:00 02/11/23 09:30 2 02/11/23 07:42 Laboratory Results [facility] 02/11/23 07:34 Sodium 141 Potassium 4.5 Chloride 114 H Carbon Dioxide 23 BUN 32 H Creatinine 1.33 Glucose 170 H Calcium 7.0 L
[2023-02-11] MEDS: ATORVASTATIN 20 MG TAB PO SCH (20:33)
[2023-02-12] MEDS: INSULIN ASPART PER UNIT CHARGE SC SCH ×5 (03:55→20:34)
[2023-02-12] MEDS: TUBE FEEDING WATER FLUSH GT SCH ×5 (03:56→20:34)
[2023-02-12 06:40] LABS: Hematocrit (blood only) 30.6 % (42.0-52.0); Hemoglobin 9.7 g/dl (14.0-18.0); Mean Corpuscular Hemoglobin 30.1 pg (25.0-34.0); Mean Corpuscular Hgb Conc 31.7 g/dL (32.0-36.0); Mean Platelet Volume 12.3 fL (9.4-12.4); Platelet Count 208 K/uL (130-400); RDW Coefficient of Variation 14.1 % (11.5-14.5); RDW Standard Deviation 47.7 fL (36.4-46.3); Red Blood Count 3.22 M/uL (4.70-6.10); White Blood Count 9.42 K/ul (4.8-10.8)
[2023-02-12 07:05] LABS: BUN Creatinine Ratio 26.7 (10-20); Calcium 7.2 mg/dl (8.6-10.3); Creatinine Clr Calc Pharmacy 47.5 ml/min; Est GFR (African American) 56.3 ml/min; Est GFR (Non-African American) 48.6 ml/min; Phosphorus 3.5 mg/dl (2.5-4.9); Potassium 4.2 mmol/L (3.5-5.1)
[2023-02-12] MEDS: VANCOMYCIN HCL 1,500 MG in DEXTROSE 5% 500 ML IV SCH (07:48)
[2023-02-12] MEDS: HEPARIN SOD 5,000 UNIT/0.5 ML VIAL SQ SCH ×2 (09:04→20:33)
[2023-02-12] MEDS: CARBIDOPA/LEVODOPA 25/100MG TAB PO SCH ×2 (09:04→20:33)
[2023-02-12] MEDS: DONEPEZIL HCL 5 MG TAB PO SCH (09:05)
[2023-02-12] MEDS: ASPIRIN 81 MG CHEW PO SCH (09:15)
[2023-02-12] MEDS ORDERED: STAT IV STA (09:40)
[2023-02-12] MEDS ORDERED: CALCIUM GLUCONATE 10% 1,000 MG in DEXTROSE 5% 50 ML IV ONE (09:45)
[2023-02-12] MEDS ORDERED: INSULIN ASPART PER UNIT CHARGE SC ONE (09:56)
[2023-02-12] MEDS: cefTRIAXone SODIUM 2,000 MG in DEXTROSE 5% 50 ML IV SCH (10:26)
[2023-02-12] MEDS: PANTOprazole 40 MG in SYRINGE 0 ML IV SCH (10:26)
--- NOTE | 2023-02-12 10:34 | Nephrology Progress Note ---
Date of Service February 12, 2023 Assessment & Plan Admission and Anticipated Discharge Date Admission Date: February 03, 2023 Subjective Assessment & Plan (1) Hypernatremia: Plan: Improving and due to his inability to maintain p.o. intake na now normal so can try to maintain with just Free h20 flushes at 200 ml q4hr. continue same ARF and Hypernatremia because of terminal dementia caused by lack of PO intake is an absolutely feature of end stage dementia . Reviewed Palliative med note and noted Family strong desire to Place PEG tube and maintain hydration. (2) Acute renal failure (ARF): Plan: Severe prerenal type on Admission and improving daily almost close to baseline of 0.9 maintain consistent Hydration to avoid future ARF. Subjective no new issues. Labs better. mental status is same Review of Systems Review of Systems: Unobtainable due to cognitive status Physical Exam Constitutional: well developed, + thin, + frail appearing and + lethargic; no acute distress ENMT: Ears: no external ear abnormality Nose: no external nose abnormality Mouth: + dry oral mucous membranes and + poor dentition Neck: no nuchal rigidity Respiratory: normal respiratory effort Auscultation: + diminished lung sounds Cardiovascular: RRR, no murmur, no edema Gastrointestinal (Abdomen): Inspection/Auscultation: normal bowel sounds Percussion/Palpation: abdomen soft; abdomen nontender Musculoskeletal: Extremities: strength 5/5 throughout Skin: no rashes, warm and dry Results & Data Vital Signs (Past 12 Hours) Vital Signs Temp Pulse Pulse Resp BP Pulse Ox O2 Del Method 02/12/23 08:00 36.8 C 60 20 101/63 96 Nasal Cannula 02/12/23 03:40 37.1 C 59 L 20 98/56 L 95 Nasal Cannula 02/11/23 23:42 65 02/11/23 23:23 37 C 64 20 144/74 H 95 Nasal Cannula O2 Flow Rate 02/12/23 08:00 2 02/12/23 03:40 2 02/11/23 23:42 02/11/23 23:23 2
--- NOTE | 2023-02-12 12:57 | XRay Report ---
KUB HISTORY: Pt pulled NGT out, had to reinsert COMPARISON: KUB 02/08/2023. FINDINGS: Nasogastric tube terminates in the mid stomach. There is a left-sided pacemaker and postste rnotomy changes. Patchy bibasilar densities are noted. Mildly dilated gas-filled loops of bowel are p artially visualized. No pneumoperitoneum or pneumatosis. IMPRESSION: Nasogastric tube terminates in the stomach. ACT 112: Negative or not required by law. Electronically signed by: Wellington Garcia M.D. 02/12/2023 12:55 PM
--- NOTE | 2023-02-12 14:34 | Pharmacy Report ---
Pharmacy PK ABX Note - Date of Service February 12, 2023 - Assessment and Plan Assessment 87 year old M receiving IV Vancomycin and ceftriaxone for treatment of severe sepsis secondary to pneumonia/bacteremia. Day # 7 of antimicrobial therapy. 02/04: Level this morning was 9.1 ~ 12 hours after loading dose. Patient appears to be clearing more than expected. Another one time dose was administered this morning. Will obtain another random this evening to help guide dosing given thaddeus al function. 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 02/05: Bcx updates to staph species growing in 3/4 bottles. Biofire indicates MRSE. Gram negative bacilli resulted sputum cx. Scr improved again today and Patient with 2 L urine output yesterday. Given scr, but evident clearance, it continues to be difficult to determine a consistent dosing regimen for vancomycin. Will continue to dose conservatively, but with frequent levels to ensure maintaining therapeutic levels. 02/06: BCx from 02/03 (+) Staph spp in /. Biofire (+) MRSE. Sensitivities are still pending. Sputum cx (+) Klebsiella pneumoniae, riggs-sensitive. Zosyn de- escalated to ceftriaxone. SCr continues to down trend with good UOP. Patient has been receiving vanc 750mg ~ q12h and demonstrating some accumulation. Still unable to determine a consistent dosing strategy given rapidly changing renal function. Will continue to dose by levels. 02/07: Blood culture from 02/03 now finalized as 2 separate Coag Negative Staph not lugdunensis, one MRSE and other is pansensitive (likely Staph epi as well). 02/05 blood cultures were updated this morning to no longer be growing anything. Discussed on rounds and provider would like 10-14 days from first set of negative blood cultures for vancomycin (last dose 02/17/23) and 10 days for ceftriaxone (last dose 02/15/23). SCr improved today which was expected secondary to good UOP yesterday. Random level this AM was 16.2 mcg/mL, which is therapeutic. Will continue to dose per levels for now given changing renal function. 02/08: Remains with low grade fevers today, 24 hr Tmax of 37.8oC. Blood cx's from 02/05/23 remain with no growth to date. Random vanc level was 16.1 mcg/mL this AM. SCr improved to 1.9 today. Improvement in SCr lags behind improvement in UOP, and UOP has remained stable for last 48 hours. Therefore, will schedule vancomycin dosing every 24 hours starting this AM. Will order another random lab for tomorrow AM to ensure level remains stable around 16 which is therapeutic. If trough level less than 15, then would consider a dose increase tomorrow. 02/09: Renal function improving to 1.62 today. Stable UOP. Random level this AM (~21hr level) - 14.3mcg/mL; true trough even lower. Given improving renal function, will give an additional 250mg IV X 1 dose this AM and increase the dose to 1gm q24h. Will continue with AM levels given ongoing changes in renal function and SCr lagging behind true renal function. 02/10: Renal function continues to improve, SCr 1.36. Stable UOP. Random level this AM (~ 19hr level)- 13.9mcg/mL predicted to achieve a steady state AUC of 313 which is subtherapeutic. Given renal function approaching baseline, will give a supplemental dose of vanc this AM for total 1500mg and schedule 1500mg q24h. 02/12: Renal function has been stable for the past several days. Random vanc level this morning indicates that current regimen remains appropriate and should achieve target Auc. No changes indicated at this time. Plan Vancomycin * Random Level this morning was 16.9 mcg/ml * Maintenance dose: Continue 1500mg IV every 24 hours * Predicted to achieve steady state AUC 475mg/L.hr and ss trough 16.4 mcg/mL * No further levels have been ordered at this time. Will consider the need for additional monitoring in 1-2 days if pt remains hospitalized and is still receiving IV vancomycin. Pharmacy will continue to follow and will adjust dose/frequency as necessary. Thank you.
--- NOTE | 2023-02-12 17:01 | Hospitalist Progress Note ---
Date of Service February 12, 2023 Assessment & Plan (1) Septic shock: (2) Acute hypernatremia: (3) Acute renal failure (ARF): (4) Goals of care, counseling/discussion: Plan Patient is an 87 yr male presents from [facility] with septic shock, renal failure. Revoked hospice for ED admission per request who is traveling from [facility]. Pt intubated. Admitting team confirmed NO CPR, defibrillation, cardioversion in the event of cardiac arrest. Continue pressors with hope of w marcos arriving from [facility]. Grave prognosis. Septic Shock: Staph Bacteremia Left lower lobe pneumonia secondary to aspiration Recent month long admission with urosepsis; was recently on Hospice --Blood Cultures: Coagulase-negative staph -- Sputum culture: Klebsiella pneumoniae, Liliana albicans --Repeat blood cultures negative to date --ECHO: Mild concentric LVH. Septal motion is abnormal, consistent with right ventricular pacemaker activation, left ventricle systolic function is low normal, EF 50 to 55%, bioprosthetic aortic valve, mild mitral regurgitation, grade 2 diastolic dysfunction, mild tricuspid regurgitation --Urine Culture: Noncontributory (H/O chronic Ferris, recent h/o of UTI) -- Weaned off of pressors Continue vancomycin (For 2 weeks), Rocephin (For 7-10 days) Appreciate intensive care input Palliative care following Likely poor candidate for PEG tube placement given history of esophageal dysmotility/Advanced dementia, current infection status Patient's POA agrees to no escalation of care (pressors, CPR, intubation) Continue tube feeds Prognosis remains guarded Discussed with patient's in detail-she understands patient is deteriorating but requests to continue current treatment Palliative care following BP low but stable off IV fluids Afebrile today Ventilator dependent hypoxic respiratory failure Secondary to left lower lobe pneumonia due to aspiration --CXR:Endotracheal tube terminates 1.7 cm and the víctor. There is new left basilar density which may represent a developing pneumonia. Extubated on 02/06/2023 Appreciate intensive care input Saturating well on room air Acute metabolic encephalopathy Secondary to above, in setting of dementia and Hypernatremia CT head:No significant change compared to the prior study. No acute intracranial abnormality. Reorient frequently Monitor sodium levels No significant improvement in mental status Elev. troponin Troponin level 400's on admission - likely type II [place], secondary to above Monitor Acute Hypernatremia: Na: 164>>155>152>146>142 Appreciate nephrology input Received D5 water Continue free water flushes between tube feeds Monitor sodium levels off IV fluids Acute Renal Failure: Creatinine 5.93; Prior provider confirmed with patient's , no dialysis -[facility]ERSON due to dehydration, ATN -Cr 3.71>2.35> 1.91>1.6>1.3 Monitor renal function Appreciate nephrology input H/O Esophageal dysmotility H/O dementia Goals of care need to be addressed Consulted speech therapy Likely poor candidate for PEG tube Continue NG tube feeds Hypocalcemia Replace electrolytes as needed Monitor Chronic Ferris - Ferris was replaced 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 Chronic anemia, hemolytic anemia as per records Aortic stenosis S/P Bioprosthetic AVR TAA S/P surgery PFO as per records SSS sp PPM not on anticoagulation secondary to bleeding/fall risk H/O TIA Continue home medications DVT Px: Heparin SQ Code Status DNI/DNR Poor prognosis Admission and Anticipated Discharge Date Admission Date: February 03, 2023 Subjective Patient is seen and examined at bedside Mostly non verbal Doesn't follow commands Self Pulled NG tube today, replaced Afebrile today Review of Systems Review of Systems: All systems reviewed & are unremarkable except as noted in Subjective Physical Exam Physical Exam: Physical Exam: Vitals signs as noted above General Appearance:Elderly, Ill appearing, no apparent distress Head: normocephalic, Atraumatic Eyes: normal inspection, EOMI Neck: supple, Trachea midline Respiratory/Chest: Decreased breath sounds, CTA, No accessory muscle use Cardiovascular: S1, S2, + murmur Abdomen/GI:Soft, Non tender, Bowel sounds present Extremities/Musculoskeletal:normal inspection, 1+ pedal edema Neurologic/Psych: Obtunded Skin: normal color, warm Results & Data Results & Data Vital Signs (Past 12 Hours) Vital Signs Temp Pulse Pulse Resp BP Pulse Ox O2 Del Method 02/12/23 16:00 36.5 C 66 16 115/66 97 Room Air 02/12/23 14:52 60 02/12/23 11:58 36.9 C 64 18 98/54 L 92 Nasal Cannula 02/12/23 06:00 60 02/12/23 07:45 Nasal Cannula 02/12/23 08:00 36.8 C 60 20 101/63 96 Nasal Cannula O2 Flow Rate 02/12/23 16:00 02/12/23 14:52 02/12/23 11:58 2 02/12/23 06:00 02/12/23 07:45 2 02/12/23 08:00 2 Laboratory Results Short CBC 02/12/23 Range/Units 06:04 WBC 9.42 (4.8-10.8) K/ul Hgb 9.7 L (14.0-18.0) g/dl Hct 30.6 L (42.0-52.0) % Plt Count 208 (130-400) K/uL BMP 02/12/23 06:04 Sodium 142 Potassium 4.2 Chloride 113 H Carbon Dioxide 24 BUN 35 H Creatinine 1.31 Glucose 118 H Calcium 7.2 L
[2023-02-12] MEDS: ATORVASTATIN 20 MG TAB PO SCH (20:34)
[2023-02-13] MEDS: TUBE FEEDING WATER FLUSH GT SCH ×6 (03:27→21:33)
[2023-02-13] MEDS: FIBERSOURCE HN 1.2 CAL 1000 ML BAG NG SCH ×2 (03:47→19:36)
[2023-02-13] MEDS: INSULIN ASPART PER UNIT CHARGE SC SCH ×5 (03:47→21:33)
[2023-02-13] MEDS: ACETAMINOPHEN 325 MG TAB PO PRN (06:15)
[2023-02-13 07:49] LABS: BUN Creatinine Ratio 29.1 (10-20); Calcium 7.2 mg/dl (8.6-10.3); Est GFR (African American) 58.5 ml/min; Est GFR (Non-African American) 50.5 ml/min; Phosphorus 2.8 mg/dl (2.5-4.9); Potassium 4.5 mmol/L (3.5-5.1)
[2023-02-13] MEDS: HEPARIN SOD 5,000 UNIT/0.5 ML VIAL SQ SCH ×2 (08:16→21:33)
[2023-02-13] MEDS: DONEPEZIL HCL 5 MG TAB PO SCH (08:16)
[2023-02-13] MEDS: CARBIDOPA/LEVODOPA 25/100MG TAB PO SCH ×2 (08:16→21:33)
[2023-02-13] MEDS: VANCOMYCIN HCL 1,500 MG in DEXTROSE 5% 500 ML IV SCH (08:17)
[2023-02-13] MEDS: ASPIRIN 81 MG CHEW PO SCH (08:21)
[2023-02-13] MEDS: PANTOprazole 40 MG in SYRINGE 0 ML IV SCH (11:44)
[2023-02-13] MEDS: cefTRIAXone SODIUM 2,000 MG in DEXTROSE 5% 50 ML IV SCH (11:59)
--- NOTE | 2023-02-13 13:46 | Gastrointestinal Consultation ---
Date of Consultation February 13, 2023 Assessment & Plan (1) Protein calorie malnutrition: Secondary to dysphagia. (2) Dysphagia: Speech path eval on 02/08 mentions that he has had many previously evals during prior admissions w silent aspiration of all consistencies and that he has been permissively aspirating. Now, he has neurologically deteriorated and does not have the ability to swallow. Plan Discussed pros/cons of PEG tube placement with the who would like to go forward w PEG. It is concerning that according to nursing, the pt has attempted to pull his NG. His tells me that he will not attempt to pull a PEG. She tells me that she plans to take him home with her and have 24 hr nursing care for him. With an abd binder on and 24 hr nursing to observe him, it is reasonable to believe that the PEG will not be pulled by the pt. The next concern is whether he is a candidate for anesthesia, as this would be needed to endoscopically place a PEG tube. I have placed an anesthesia consult, asking for their opinion. If cleared by anesthesia, we will go forward w PEG tube placement. Please keep the pt NPO after midnight and hold heparin. Supervising Physician Co-Signing Physician Notes I performed a history and physical examination of the patient today, including specifically on physical exam - soft abdomen. I have discussed the patient's management with the advanced practitioner. Please refer to the nurse practitioner's note for the documented findings and plan of care. wants PEG tube and she is his POA. Discussed risk and benefit and alternatives. Plan for PEG tomorrow. History of Present Illness Reason for Consultation: Family request for PEG tube Requesting Physician: Dr. Fontanez Attending Physician: Dada Fontanez MD History of Present Illness Mr. Jules Ozuna is an 87 yr old male resident at [facility] a hx of CAD S/P bypass surgery and stenting and pacemaker TIA, S/P bioprosthetic AVR, TIA, Parkinson's, Lewy body dementia who was previously hospice status, but his condition worsened while [place] was [place] of the [place]. When she was notified, she revoked hospice, but the pt remains a DNR. She has since returned to the and is at the bedside. The pt has been tx for aspiration pneumonia, UTI sepsis and hemodynamically improved but is not interactive. He is currently supported by IV fluids/antibiotics and feedings by NG tube. He is now breathing independently w/o any O2 requirements and no longer needs vasopressors. He is laying the position with extremities drawn up and mouth open. His is present. She explains that she is a dentist who works in the anatomy lab at [facility] [employer] [employer]. She believes that he deserves a chance to improve and that he needs nutrition to improve. She believes that he became ill because he had an infection and was not given food/nutrition by other means at [facility]. She tells me that the pt understands and wants the PEG tube. She shows me a video of him taken a few days ago, when he was attempting to respond to her questions and she explains that in the video, he was agreeing to PEG. She is sure that he wants the PEG. We talked about the PEG procedure, that he would need to be sedated for the procedure and that he should not get the PEG placement if he is not reliable - that it is very important that the tube not be pulled out by him as that would life threatening complications including sepsis if this occurs in the first 2 months after placement. She tells me that she explained to him that he is not to pull on his NG and that he has been good about not pulling the NG. However, the pt's RN tells me that he has pulled the NG. I also explained that PEG tubes statistically do no prolong life and that they do not prevent aspiration, that aspiration can occur by stomach contents refluxing up and into the airways. She indicates understanding and is very sure that the pt should undergo PEG placement. Our palliative care providers have spoken w the pt and has documented similar statements by the pt's . There is also clear documentation by the ED provider that the pt was at that time actively dying. The pt's tells me about that situation, stating that he was dying but that he has gotten much better and that she believes he will continue to improve if he has nutrition. He is on Q 12hr SQ heparin but no other antiplatelet or anticoagulants. Allergies Allergy/AdvReac Type Severity Reaction Status Date / Time No Known Allergies Allergy Verified 12/19/22 11:15 Home Medications Medication Instructions Recorded Confirmed Type atorvastatin 20 mg tablet (Lipitor) 20 mg PO QPM #30 tabs 09/11/21 02/03/23 Rx carbidopa 25 mg-levodopa 100 mg 1 tab PO BID #60 tabs 09/11/21 02/03/23 Rx tablet sennosides 8.6 mg-docusate sodium 1 tab PO QAM #30 tabs 09/11/21 02/03/23 Rx 50 mg tablet (Senokot-S) acetaminophen 325 mg tablet 650 mg PO Q4H PRN PAIN/FEVER 09/12/22 02/03/23 History (Tylenol) aspirin 81 mg tablet,delayed 81 mg PO QAM 09/12/22 02/03/23 History release donepezil 5 mg tablet 5 mg PO QAM 09/12/22 02/03/23 History metoprolol tartrate 25 mg tablet 25 mg PO QAM 09/12/22 02/03/23 History polyethylene glycol 3350 17 gram 17 g PO QAM 09/12/22 02/03/23 History oral powder packet (Miralax) Patient History Medical History Aortic aneurysm Aortic stenosis Atrial fibrillation CAD (coronary artery disease) Dementia Discussion about advance care planning held with family member Goals of care, counseling/discussion Hemolytic anemia HLD (hyperlipidemia) HTN (hypertension) Left rib fracture senior living resident Pacemaker Pacemaker battery depletion Palliative care by specialist Parkinsons disease Rhabdomyolysis Septic shock T12 compression fracture Surgical History H/O prosthetic heart valve History of cataract surgery right Hx of heart bypass surgery Social History Smoking Status: Unknown if ever smoked Hx Substance Use: No Preferred Language: Romanian Communication Ability: Unable Visual Impairment: No Limitations Hearing Ability: Normal 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 Physical Exam Constitutional: + ill appearing (very chronically ill appearing, w dementia appearance) Eyes: PERRL, conjunctivae normal, anicteric sclerae ENMT: External ears, nose normal. Mouth open, mouth mucosa dry from mouth breathing, Pharynx appears normal, NG in place. Respiratory: normal respiratory effort; no respiratory distress mild scattered wheezes and rhonchi Cardiovascular: RRR, 2/6 systolic murmur noted. Gastrointestinal (Abdomen): Abd is firm but not taunt and not distended, I believe the firm abdomen reflects that pt's globally tense muscle tone as he also has tense muscles of the neck, arms, legs. He does not seem uncomfortable w palpation of the abdomen. There are no surgical scars visible on the abdomen. Musculoskeletal: Holding his arms, legs drawn up, rigid, elbows/knees bent, hands in fists Skin: Evidence of pressure injuries (redness on dependent surfaces) but no obvious skin ulcerations. Neurologic: Is awake but only minimally interactive - attempting some speech if asked a question by his . Does not follow commands. Psychiatric: Orientation: alert Eye Contact: + poor eye contact Motor Behavior: n tremor not ambulatory; does not seem agitated or irritated. Lymphatic: no cervical or axillary lymphadenopathy Results & Data Vital Signs (Past 12 Hours) Vital Signs Temp Pulse Pulse Resp BP Pulse Ox O2 Del Method 02/13/23 11:48 36.9 C 83 18 122/70 97 Room Air 02/13/23 07:59 36.8 C 75 18 115/61 97 Room Air 02/13/23 07:48 Nasal Cannula 02/13/23 06:03 60 02/13/23 03:22 36.8 C 72 18 110/58 L 97 Nasal Cannula O2 Flow Rate 02/13/23 11:48 02/13/23 07:59 02/13/23 07:48 2 02/13/23 06:03 02/13/23 03:22 2 Laboratory Results Na 141, K 4.5, Cl 111, CO2 26, BUN 37, Cr 1.27, glucose 179. Diagnostic Findings KUB 02/08/23
--- NOTE | 2023-02-13 16:50 | Hospitalist Progress Note ---
Date of Service February 13, 2023 Assessment & Plan (1) Septic shock: (2) Acute hypernatremia: (3) Acute renal failure (ARF): (4) Goals of care, counseling/discussion: Plan Patient is an 87 yr male presents from [facility] with septic shock, renal failure. Revoked hospice for ED admission per request who is traveling from [facility]. Pt intubated. Admitting team confirmed NO CPR, defibrillation, cardioversion in the event of cardiac arrest. Continue pressors with hope of w marcos arriving from [facility]. Grave prognosis. Septic Shock: Staph Bacteremia Left lower lobe pneumonia secondary to aspiration Recent month long admission with urosepsis; was recently on Hospice --Blood Cultures: Coagulase-negative staph -- Sputum culture: Klebsiella pneumoniae, Liliana albicans --Repeat blood cultures negative to date --ECHO: Mild concentric LVH. Septal motion is abnormal, consistent with right ventricular pacemaker activation, left ventricle systolic function is low normal, EF 50 to 55%, bioprosthetic aortic valve, mild mitral regurgitation, grade 2 diastolic dysfunction, mild tricuspid regurgitation --Urine Culture: Noncontributory (H/O chronic Ferris, recent h/o of UTI) -- Weaned off of pressors Continue vancomycin (For 2 weeks), Rocephin (For 7-10 days) Appreciate intensive care input Palliative care following Patient's POA agrees to no escalation of care (pressors, CPR, intubation) Continue NG tube feeds Prognosis remains guarded Palliative care following BP better today GI consulted for possible PEG placed as requested by family Ventilator dependent hypoxic respiratory failure Secondary to left lower lobe pneumonia due to aspiration --CXR:Endotracheal tube terminates 1.7 cm and the víctor. There is new left basilar density which may represent a developing pneumonia. Extubated on 02/06/2023 Appreciate intensive care input Saturating well on room air Acute metabolic encephalopathy Secondary to above, in setting of dementia and Hypernatremia CT head:No significant change compared to the prior study. No acute intracranial abnormality. Reorient frequently Monitor sodium levels More alert, awake today Severe protein calorie malnutrition Dysphagia Family request PEG tube placement Appreciate GI input Plan for PEG tube placement if cleared by anesthesiology Elev. troponin Troponin level 400's on admission - likely type II [place], secondary to above Monitor Acute Hypernatremia: Na: 164>>155>152>146>141 Appreciate nephrology input Received D5 water Continue free water flushes between tube feeds Monitor sodium levels off IV fluids Acute Renal Failure: Creatinine 5.93; Prior provider confirmed with patient's , no dialysis -[facility] due to dehydration, ATN -Cr 3.71>2.35> 1.91>1.6>1.27 Monitor renal function Appreciate nephrology input H/O Esophageal dysmotility H/O dementia Goals of care need to be addressed Consulted speech therapy Likely poor candidate for PEG tube Continue NG tube feeds Hypocalcemia Replace electrolytes as needed Monitor Chronic Ferris - Ferris was replaced 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 Chronic anemia, hemolytic anemia as per records Aortic stenosis S/P Bioprosthetic AVR TAA S/P surgery PFO as per records SSS sp PPM not on anticoagulation secondary to bleeding/fall risk H/O TIA Continue home medications DVT Px: Heparin SQ Code Status DNI/DNR Poor prognosis Admission and Anticipated Discharge Date Admission Date: February 03, 2023 Subjective Patient is seen and examined at bedside Mostly non verbal More alert, awake today Review of Systems Review of Systems: Unobtainable due to cognitive status and Unobtainable due to reduced consciousness Physical Exam Physical Exam: Physical Exam: Vitals signs as noted above General Appearance:Elderly, Ill appearing, no apparent distress Head: normocephalic, Atraumatic Eyes: normal inspection, EOMI Neck: supple, Trachea midline Respiratory/Chest: Decreased breath sounds, CTA, No accessory muscle use Cardiovascular: S1, S2, + murmur Abdomen/GI:Soft, Non tender, Bowel sounds present Extremities/Musculoskeletal:normal inspection, 1+ pedal edema Neurologic/Psych: Alert, awake, mostly nonverbal, does not follow commands Skin: normal color, warm Results & Data Results & Data Vital Signs (Past 12 Hours) Vital Signs Temp Pulse Pulse Resp BP Pulse Ox O2 Del Method 02/13/23 16:00 36.8 C 75 18 131/67 97 Nasal Cannula 02/13/23 11:48 36.9 C 83 18 122/70 97 Room Air 02/13/23 07:59 36.8 C 75 18 115/61 97 Room Air 02/13/23 07:48 Nasal Cannula 02/13/23 06:03 60 O2 Flow Rate 02/13/23 16:00 2 02/13/23 11:48 02/13/23 07:59 02/13/23 07:48 2 02/13/23 06:03 Laboratory Results BMP 02/13/23 06:25 Sodium 141 Potassium 4.5 Chloride 111 H Carbon Dioxide 26 BUN 37 H Creatinine 1.27 Glucose 144 H Calcium 7.2 L
--- NOTE | 2023-02-13 20:39 | Communication Note ---
Date of Service: February 13, 2023 pt is a poor candidate for anesthesia because of the multiple medical problems, but this does not mean it is contraindicated. Pt will need to be evaluated day of to see how appropriate he is that day for it (labs) He will most likely need to be done in the main OR because of his aspiration risks.
[2023-02-13] MEDS: ATORVASTATIN 20 MG TAB PO SCH (21:32)
[2023-02-14] MEDS: TUBE FEEDING WATER FLUSH GT SCH ×7 (05:47→23:56)
[2023-02-14] MEDS: INSULIN ASPART PER UNIT CHARGE SC SCH ×6 (05:48→20:11)
[2023-02-14 07:34] LABS: BUN Creatinine Ratio 29.3 (10-20); Calcium 7.3 mg/dl (8.6-10.3); Creatinine Clr Calc Pharmacy 50.6 ml/min; Est GFR (African American) 60.8 ml/min; Est GFR (Non-African American) 52.5 ml/min; Potassium 4.3 mmol/L (3.5-5.1)
[2023-02-14] MEDS: VANCOMYCIN HCL 1,500 MG in DEXTROSE 5% 500 ML IV SCH (08:34)
[2023-02-14] MEDS: ASPIRIN 81 MG CHEW PO SCH (08:34)
[2023-02-14] MEDS: DONEPEZIL HCL 5 MG TAB PO SCH (08:35)
[2023-02-14] MEDS: CARBIDOPA/LEVODOPA 25/100MG TAB PO SCH ×2 (08:35→19:40)
[2023-02-14] MEDS: HEPARIN SOD 5,000 UNIT/0.5 ML VIAL SQ SCH ×2 (08:35→20:12)
[2023-02-14] MEDS ORDERED: STAT IV STA (09:11)
[2023-02-14] MEDS ORDERED: CALCIUM GLUCONATE 10% 1,000 MG in DEXTROSE 5% 50 ML IV ONE (09:11)
--- NOTE | 2023-02-14 09:19 | Anesthesiology Consultation ---
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 History Surgery Operation Date: 02/14/23 07:00 Proposed Procedures p Esophagogastroduodenoscopy - Josie Erazo MD s PEG Tube Placement - Josie Erazo MD Operation Date: 02/14/23 16:45 Proposed Procedures p Esophagogastroduodenoscopy Dr Erazo - Josie Erazo MD Height/Weight Height: 6 ft 3 in Weight: 91.1 kg Allergies Allergy/AdvReac Type Severity Reaction Status Date / Time No Known Allergies Allergy Verified 12/19/22 11:15 Medications Home Medications Medication Instructions Recorded Confirmed Last Taken atorvastatin 20 mg tablet (Lipitor) 20 mg PO QPM #30 tabs 09/11/21 02/03/23 09/11/22 carbidopa 25 mg-levodopa 100 mg 1 tab PO BID #60 tabs 09/11/21 02/03/23 09/12/22 08:00 tablet sennosides 8.6 mg-docusate sodium 1 tab PO QAM #30 tabs 09/11/21 02/03/23 09/12/22 50 mg tablet (Senokot-S) acetaminophen 325 mg tablet 650 mg PO Q4H PRN PAIN/FEVER 09/12/22 02/03/23 08/21/22 (Tylenol) aspirin 81 mg tablet,delayed 81 mg PO QAM 09/12/22 02/03/23 09/12/22 release donepezil 5 mg tablet 5 mg PO QAM 09/12/22 02/03/23 09/12/22 metoprolol tartrate 25 mg tablet 25 mg PO QAM 09/12/22 02/03/23 09/12/22 polyethylene glycol 3350 17 gram 17 g PO QAM 09/12/22 02/03/23 09/12/22 oral powder packet (Miralax) Active Medications Generic Name Dose Route Start Last Admin Trade Name Freq PRN Reason Stop Dose Admin Acetaminophen 650 mg 02/11/23 10:35 02/13/23 06:15 Acetaminophen 325 Mg Tab PO 03/13/23 10:34 650 mg Q4H PRN Administration Pain or Fever Aspirin 81 mg 02/11/23 09:30 02/14/23 08:34 Aspirin 81 Mg Chew PO 03/14/23 08:59 81 mg QAM FERNIE Administration Atorvastatin Calcium 20 mg 02/10/23 21:00 02/13/23 21:32 Atorvastatin 20 Mg Tab PO 03/12/23 20:59 20 mg QPM FERNIE Administration Carbidopa/Levodopa 1 tab 02/10/23 21:00 02/14/23 08:35 Carbidopa/Levodopa 25/100mg Tab PO 03/12/23 20:59 1 tab BID FERNIE Administration Donepezil HCl 5 mg 02/11/23 09:00 02/14/23 08:35 Donepezil Hcl 5 Mg Tab PO 03/13/23 08:59 5 mg QAM FERNIE Administration Enteral Nutritional Formula 1,000 ml 02/08/23 14:15 02/13/23 19:36 Fibersource Hn 1.2 Jeremy 1000 Ml Bag NG 03/10/23 14:14 1,000 ml UD FERNIE Administration Protocol Heparin Sodium (Beef Lung) 5 ml 02/06/23 16:08 02/06/23 21:35 Heparin 10 Unit/Ml 5 Ml Flush FLUSH 03/08/23 16:07 5 ml PRN PRN Administration Flush Heparin Sodium (Porcine) 5,000 units 02/04/23 10:30 02/14/23 08:35 Heparin Sod 5,000 Unit/0.5 Ml Vial SQ 03/06/23 10:29 Not Given Q12 FERNIE Pantoprazole Sodium 40 mg/ 10 mls @ 5 mls/min 02/04/23 11:00 02/13/23 11:44 Syringe IV 03/06/23 10:59 5 mls/min DAILY@1100 FERNIE Administration Ceftriaxone Sodium 2,000 mg/ 70 mls @ 140 mls/hr 02/06/23 11:00 02/13/23 12:25 Dextrose IV 02/15/23 11:29 Infused Q24H FERNIE Infusion Vancomycin HCl 1,500 mg/ 530 mls @ 200 mls/hr 02/11/23 08:00 02/14/23 08:34 Dextrose IV 02/17/23 23:59 200 mls/hr Q24H FERNIE Administration Protocol Insulin Aspart 0 units 02/06/23 16:00 02/14/23 07:57 Insulin Aspart Per Unit Charge SC 03/08/23 15:59 Not Given Q4 FERNIE Sterile Water 150 ml 02/10/23 16:15 02/14/23 08:34 Tube Feeding Water Flush GT 03/12/23 16:14 150 ml Q4H FERNIE Administration Past Medical History Medical History Aortic aneurysm Aortic stenosis Atrial fibrillation CAD (coronary artery disease) Dementia Discussion about advance care planning held with family member Goals of care, counseling/discussion Hemolytic anemia HLD (hyperlipidemia) HTN (hypertension) Left rib fracture snf resident Pacemaker Pacemaker battery depletion Palliative care by specialist Parkinsons disease Rhabdomyolysis Septic shock T12 compression fracture Past Surgical History Surgical History H/O prosthetic heart valve History of cataract surgery right Hx of heart bypass surgery Social History Smoking Status: Unknown if ever smoked Hx Substance Use: No Physical Exam Vital Signs Last Vital Signs Temp 98.6 F 02/14/23 07:47 Pulse 67 02/14/23 07:47 Resp 18 02/14/23 07:47 BP 123/60 02/14/23 07:47 Pulse Ox 96 02/14/23 07:47 O2 Del Method Nasal Cannula 02/14/23 07:47 O2 Flow Rate 2 02/14/23 07:47 FiO2 28 02/10/23 20:16 Testing Laboratory Results 02/12/23 06:04 02/14/23 06:28 PT 14.6 Seconds (9.0-12.0) H 02/04/23 04:42 INR 1.4 (0.9-1.1) H 02/04/23 04:42 APTT 41.0 Seconds (21.0-31.0) H 02/05/23 04:49 Urine Color Dark Yellow 02/03/23 16:12 Urine Appearance Turbid (Clear) A 02/03/23 16:12 Urine pH 7.0 (4.5-7.5) 02/03/23 16:12 Ur Specific [place] 1.022 (1.000-1.030) 02/03/23 16:12 Urine Protein 3+ (Negative) H 02/03/23 16:12 Urine Glucose (UA) Negative (Negative) 02/03/23 16:12 Urine Ketones Trace (Negative) H 02/03/23 16:12 Urine Nitrite Positive (Negative) A 02/03/23 16:12 Ur Leukocyte Esterase 3+ (Negative) H 02/03/23 16:12 Urine WBC (Auto) >30 /hpf (0-5) H 02/03/23 16:12 Urine RBC (Auto) 10-30 /hpf (0-4) H 02/03/23 16:12 U Hyaline Cast (Auto) 0 /lpf (0-5) 02/03/23 16:12 U Epithel Cells (Auto) >30 /lpf (0-5) H 02/03/23 16:12 Urine Bacteria (Auto) 4+ (Negative) H 02/03/23 16:12 02/07/23 04:47 Aerobic Blood Culture - Final Blood No growth in Aerobic bottle after 5 days. Anaerobic Blood Culture - Final No growth in Anaerobic bottle after 5 days. 02/07/23 04:47 Aerobic Blood Culture - Final Blood No growth in Aerobic bottle after 5 days. Anaerobic Blood Culture - Final No growth in Anaerobic bottle after 5 days. 02/05/23 14:57 Aerobic Blood Culture - Final Blood No growth in Aerobic bottle after 5 days. Anaerobic Blood Culture - Final No growth in Anaerobic bottle after 5 days. 02/05/23 15:00 Aerobic Blood Culture - Final Blood No growth in Aerobic bottle after 5 days. Anaerobic Blood Culture - Preliminary No growth in Anaerobic bottle after 48 hours. 02/03/23 14:28 Aerobic Blood Culture - Final Blood Coag neg staph not lugdunensis Coag neg staph not lugdunensis#2 Anaerobic Blood Culture - Final Coag neg staph not lugdunensis Coag neg staph not lugdunensis#2 02/03/23 14:28 Aerobic Blood Culture - Final Blood Coag neg staph not lugdunensis Coag neg staph not lugdunensis#2 Anaerobic Blood Culture - Final Coag neg staph not lugdunensis Coag neg staph not lugdunensis#2 02/04/23 Unknown Gram Stain - Final Sputum,Vent Suction Sputum Culture - Final Klebsiella pneumoniae Liliana albicans/dubliniensis 02/03/23 16:12 Urine Culture - Final Urine,Clean Catch Three types of organisms present, all high counts. Repeat collection recommended. No further identifications or sensitivities to follow. 02/14/23 02/14/23 02/14/23 07:21 03:18 00:09 POC Glucose 110 H 105 H 127 H Electrocardiogram Date: 02/03/23 Atrial-paced rhythm with Premature atrial complexes, rate 74 bpm Right bundle branch block Abnormal ECG When compared with ECG of 19-DEC-2022 04:35, Electronic atrial pacemaker has replaced Electronic ventricular pacemaker Confirmed by Joon Garcia ([id number]) on 02/04/2023 10:51:56 AM Chest X-Ray Date: 02/06/23 IMPRESSION: 1. Satisfactory appearance of lines and tubes were visualized. 2. Bilateral lower lung airspace opacities likely represent atelectasis. Stable cardiomegaly. Echocardiogram Date: 12/20/22 Mild concentric LVH Septal motion is abnormal, consistent with RV pacemaker activation LV systolic function is low normal EF 50-55% There is a bioprosthetic AV without suggestion of prosthetic valve stenosis or regurgitation Diastolic dysfunction, grade 2 There is mild TR
--- NOTE | 2023-02-14 10:14 | Communication Note ---
Date of Service: February 14, 2023 Pt seen and examined. Today, saturating well at 96% on 2L O2, + rhonchi, no evidence of respiratory effort, abdomen soft, non distended; pt is normotensive and HR 63. Na/K normal. Ca low at 7.3. Pt's eyes open, looking at , at bedside, holding his hand; pt is non verbal. Plan is for PEG tube insertion today in the OR by Dr. Velásquez, per request. He goal is for him to have good hydration and nutrition and she believes he will improve. Risks benefits were discussed in detail and consent obtained yesterday by Dr. Erazo; I acted as witness. ing.
[2023-02-14] MEDS ORDERED: ePHEDrine sulfate 50 MG/ML AMP IV PRN (10:31)
[2023-02-14] MEDS ORDERED: ATROPINE SULFATE 0.1 MG/ML 10ML SYR IV PRN (10:31)
--- NOTE | 2023-02-14 10:34 | History & Physical Bridge Note ---
Date of Service February 14, 2023 History & Physical Bridge Note I have examined the patient, reviewed the History & Physical and in the interval since the performance of the History & Physical I have noted the following changes of clinical significance: no changes noted EGD with PEG Patient's was explained in detail regarding risks, benefits, limitations and alternatives of the above endoscopic procedure. Risks of intravenous sedation used for procedure were also explained. Risks include, but not limited to perforation, bleeding, infection, respiratory distress, cardiac arrest and .
[2023-02-14] MEDS ORDERED: PROPOFOL IV EMULSION 10 MG/ML 20 ML VIAL IV ONE (10:54)
[2023-02-14] MEDS ORDERED: LIDOCAINE 2% MPF LOCAL 5 ML VIAL ONE (10:54)
--- NOTE | 2023-02-14 11:19 | Operative Report ---
Post Operative Report Pre & Post Diagnosis Operation Date: 02/14/23 16:45 <No data on this case meets the specified criteria> I identified the patient and participated in the time-out.: Yes Procedure Operation Date: 02/14/23 16:45 <No data on this case meets the specified criteria> Surgeon Josie Erazo MD Certified Medical Records Coder None Estimated Blood Loss 0 Findings See Below (PEG tuibe placed) Specimens None Description of Procedure EGD I attest to the content of the Intraoperative Record and any orders documented therein. Any exceptions are noted below.
--- NOTE | 2023-02-14 11:33 | GI REPORT ---
Patient Name: Jules Ozuna Procedure Date: 02/14/2023 9:53 AM Date of : 1935 Admit Type: Inpatient Age: 87 Gender: Male Attending MD: Josie Erazo MD, Procedure: Upper GI endoscopy Providers: Josie rEazo MD Referring MD: [facility], Dada Fontanez Md Indications: Place PEG because patient is unable to eat Medicines: Propofol per Anesthesia Complications: No immediate complications. Estimated Blood Loss: Estimated blood loss: none. Procedure: Pre-Anesthesia Assessment: - Prior to the procedure, a History and Physical was performed, and patient medications, allergies and sensitivities were reviewed. The patient's tolerance of previous anesthesia was reviewed. - Patient identification and proposed procedure were verified prior to the procedure by the physician and the nurse. The procedure was verified in the procedure room. - Pre-procedure physical examination revealed no contraindications to sedation. - The alternatives, risks and benefits of the procedure were discussed at length with the patient's spouse. The patient's proxy verbalized understanding of the risks as well as the alternatives and wished to proceed with the procedure. After obtaining informed consent, the endoscope was passed under direct vision. Throughout the procedure, the patient's blood pressure, pulse, and oxygen saturations were monitored continuously. The Endoscope was introduced through the mouth, and advanced to the second part of duodenum. The upper GI endoscopy was accomplished without difficulty. The patient tolerated the procedure well. Findings: The examined esophagus was normal. The entire examined stomach was normal. The patient was placed in the supine position for PEG placement. The stomach was insufflated to appose gastric and abdominal farias. A site was located in the body of the stomach with excellent transillumination and manual external pressure for placement. The abdominal wall was marked and prepped in a sterile manner. The area was anesthetized with 2 mL of 1% lidocaine. The trocar needle was introduced through the abdominal wall and into the stomach under direct endoscopic view. A snare was introduced through the endoscope and opened in the gastric lumen. The guide wire was passed through the trocar and into the open snare. The snare was closed around the guide wire. The endoscope and snare were removed, pulling the wire out through the mouth. A skin incision was made at the site of needle insertion. The externally removable 20 Fr [employer] gastrostomy tube was lubricated. The G-tube was tied to the guide wire and pulled through the mouth and into the stomach. The trocar needle was removed, and the gastrostomy tube was pulled out from the stomach through the skin. The external bumper was attached to the gastrostomy tube, and the tube was cut to remove the guide wire. The final position of the gastrostomy tube was confirmed by relook endoscopy, and skin marking noted to be 2.5 cm at the external bumper. The final tension and compression of the abdominal wall by the PEG tube and external bumper were checked and revealed that the bumper was moderately tight and mildly deforming the skin. The feeding tube was capped, and the tube site cleaned and dressed. The duodenal bulb and second portion of the duodenum were normal. Impression: - Normal esophagus. - Normal stomach. - Normal duodenal bulb and second portion of the duodenum. - An externally removable PEG placement was successfully completed. - No specimens collected. Recommendation: - Return patient to hospital phan for ongoing care. - Please follow the post-PEG recommendations including: Nutrition consult for formula and volume, external bolster 1 cm from abdominal wall, dry dressing only and may use PEG tomorrow for feedings. Josie Erazo MD 02/14/2023 11:33:02 AM This report has been signed electronically. Note Initiated On: 02/14/2023 9:53 AM Number of Addenda: 0 I attest to the content of the Intraoperative Record and orders documented therein, exceptions below {[id number]}
--- NOTE | 2023-02-14 12:01 | Anesthesiology Progress Note ---
Date of Service February 14, 2023 Anesthesia Post Procedure Vital Signs Vital Signs: Temp Pulse Pulse Resp BP BP Pulse Ox 02/14/23 11:27 98.4 F 94 H 22 125/69 97 02/14/23 10:39 98.6 F 69 20 114/55 L 95 02/14/23 09:18 63 02/14/23 07:47 98.6 F 67 18 123/60 96 02/14/23 07:37 02/13/23 23:00 62 02/14/23 03:16 99.0 F 60 18 138/60 97 02/13/23 23:39 98.4 F 67 18 125/74 96 02/13/23 23:28 02/13/23 19:32 99.7 F H 60 20 130/76 97 02/13/23 14:08 60 02/13/23 16:00 98.2 F 75 18 131/67 97 O2 Del Method O2 Flow Rate 02/14/23 11:27 Nasal Cannula 4 02/14/23 10:39 Nasal Cannula 2 02/14/23 09:18 02/14/23 07:47 Nasal Cannula 2 02/14/23 07:37 Nasal Cannula 02/13/23 23:00 02/14/23 03:16 Nasal Cannula 02/13/23 23:39 Nasal Cannula 2 02/13/23 23:28 Nasal Cannula 02/13/23 19:32 Nasal Cannula 2.0 02/13/23 14:08 02/13/23 16:00 Nasal Cannula 2 Transfer of Care Handoff Completed per policy Notes Mental Status: alert / awake / arousable and participated in evaluation Patient Amnestic to Procedure: Yes Nausea / Vomiting: adequately controlled Pain: adequately controlled Airway Patency, RR, SpO2: stable & adequate BP & HR: stable & adequate Hydration State: stable & adequate Anesthetic Complications: no major complications apparent and Pt Satisfied with anesthetic care
[2023-02-14] MEDS: cefTRIAXone SODIUM 2,000 MG in DEXTROSE 5% 50 ML IV SCH (12:27)
[2023-02-14] MEDS: PANTOprazole 40 MG in SYRINGE 0 ML IV SCH (13:14)
--- NOTE | 2023-02-14 16:30 | Hospitalist Progress Note ---
Date of Service February 14, 2023 Assessment & Plan (1) Septic shock: (2) Acute hypernatremia: (3) Acute renal failure (ARF): (4) Goals of care, counseling/discussion: Plan Patient is an 87 yr male presents from [facility] with septic shock, renal failure. Revoked hospice for ED admission per request who is traveling from [facility]. Pt intubated. Admitting team confirmed NO CPR, defibrillation, cardioversion in the event of cardiac arrest. Continue pressors with hope of w marcos arriving from [facility]. Grave prognosis. Septic Shock: Staph Bacteremia Left lower lobe pneumonia secondary to aspiration Recent month long admission with urosepsis; was recently on Hospice --Blood Cultures: Coagulase-negative staph -- Sputum culture: Klebsiella pneumoniae, Liliana albicans --Repeat blood cultures negative to date --ECHO: Mild concentric LVH. Septal motion is abnormal, consistent with right ventricular pacemaker activation, left ventricle systolic function is low normal, EF 50 to 55%, bioprosthetic aortic valve, mild mitral regurgitation, grade 2 diastolic dysfunction, mild tricuspid regurgitation --Urine Culture: Noncontributory (H/O chronic Ferris, recent h/o of UTI) -- Weaned off of pressors Continue vancomycin (For 2 weeks), Rocephin (For 7-10 days) Appreciate intensive care input Palliative care following Patient's POA agrees to no escalation of care (pressors, CPR, intubation) Continue NG tube feeds Prognosis remains guarded Palliative care following S/P PEG placement on 02/14/23 Appreciate GI help May use PEG tomorrow for feeds as per GI Ventilator dependent hypoxic respiratory failure Secondary to left lower lobe pneumonia due to aspiration --CXR:Endotracheal tube terminates 1.7 cm and the víctor. There is new left basilar density which may represent a developing pneumonia. Extubated on 02/06/2023 Appreciate intensive care input Saturating well on room air Acute metabolic encephalopathy Secondary to above, in setting of dementia and Hypernatremia CT head:No significant change compared to the prior study. No acute intracranial abnormality. Reorient frequently Monitor sodium levels More alert, awake but remains non verbal Severe protein calorie malnutrition Dysphagia Family request PEG tube placement Appreciate GI input We will resume tube feeds tomorrow Elev. troponin Troponin level 400's on admission - likely type II VA, secondary to above Monitor Acute Hypernatremia: Na: 164>>155>152>146>142 Appreciate nephrology input Received D5 water Continue free water flushes between tube feeds Monitor sodium levels off IV fluids Acute Renal Failure: Creatinine 5.93; Prior provider confirmed with patient's , no dialysis -[facility]ERSON due to dehydration, ATN -Cr 3.71>2.35> 1.91>1.6>1.2 Monitor renal function Appreciate nephrology input H/O Esophageal dysmotility H/O dementia Goals of care need to be addressed Consulted speech therapy Continue NG tube feeds Hypocalcemia Replace electrolytes as needed Monitor Chronic Ferris - Ferris was replaced 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 Chronic anemia, hemolytic anemia as per records Aortic stenosis S/P Bioprosthetic AVR TAA S/P surgery PFO as per records SSS sp PPM not on anticoagulation secondary to bleeding/fall risk H/O TIA Continue home medications DVT Px: Heparin SQ Code Status DNI/DNR Poor prognosis Admission and Anticipated Discharge Date Admission Date: February 03, 2023 Subjective Patient is seen and examined at bedside prior to PEG placement Mostly non verbal More alert, awake today Discussed with patient's family at bedside Plan for PEG placement today Review of Systems Review of Systems: All systems reviewed & are unremarkable except as noted in Subjective Physical Exam Physical Exam: Physical Exam: Vitals signs as noted above General Appearance:Elderly, Ill appearing, no apparent distress Head: normocephalic, Atraumatic Eyes: normal inspection, EOMI Neck: supple, Trachea midline Respiratory/Chest: Decreased breath sounds, CTA, No accessory muscle use Cardiovascular: S1, S2, + murmur Abdomen/GI:Soft, Non tender, Bowel sounds present Extremities/Musculoskeletal:normal inspection, 1+ pedal edema Neurologic/Psych: Alert, awake, mostly nonverbal, does not follow commands Skin: normal color, warm Results & Data Results & Data Vital Signs (Past 12 Hours) Vital Signs Temp Pulse Pulse Resp BP Pulse Ox O2 Del Method 02/14/23 16:14 36.9 C 62 18 142/71 H 100 Room Air 02/14/23 14:54 68 02/14/23 11:55 76 22 120/66 95 Nasal Cannula 02/14/23 11:45 79 22 124/70 96 Nasal Cannula 02/14/23 12:05 37 C 75 22 119/63 97 Nasal Cannula 02/14/23 11:35 79 21 123/65 98 Nasal Cannula 02/14/23 11:27 36.9 C 94 H 22 125/69 97 Nasal Cannula 02/14/23 10:39 37 C 69 20 114/55 L 95 Nasal Cannula 02/14/23 09:18 63 02/14/23 07:47 37.0 C 67 18 123/60 96 Nasal Cannula 02/14/23 07:37 Nasal Cannula O2 Flow Rate 02/14/23 16:14 02/14/23 14:54 02/14/23 11:55 2 02/14/23 11:45 2 02/14/23 12:05 2 02/14/23 11:35 4 02/14/23 11:27 4 02/14/23 10:39 2 02/14/23 09:18 02/14/23 07:47 2 02/14/23 07:37 Laboratory Results [facility] 02/14/23 06:28 Sodium 142 Potassium 4.3 Chloride 110 H Carbon Dioxide 29 BUN 36 H Creatinine 1.23 Glucose 111 H Calcium 7.3 L
[2023-02-14] MEDS: ATORVASTATIN 20 MG TAB PO SCH (19:40)
[2023-02-15] MEDS: INSULIN ASPART PER UNIT CHARGE SC SCH ×6 (00:18→20:08)
[2023-02-15] MEDS: TUBE FEEDING WATER FLUSH GT SCH ×5 (03:20→20:09)
[2023-02-15 06:54] LABS: Hematocrit (blood only) 30.1 % (42.0-52.0); Hemoglobin 9.7 g/dl (14.0-18.0); Mean Corpuscular Hemoglobin 30.3 pg (25.0-34.0); Mean Corpuscular Hgb Conc 32.2 g/dL (32.0-36.0); Mean Corpuscular Volume 94.1 fL (80.0-100.0); Mean Platelet Volume 12.6 fL (9.4-12.4); Platelet Count 288 K/uL (130-400); RDW Standard Deviation 47.2 fL (36.4-46.3); White Blood Count 8.93 K/ul (4.8-10.8)
[2023-02-15 07:05] LABS: BUN Creatinine Ratio 27.6 (10-20); Calcium 7.8 mg/dl (8.6-10.3); Est GFR (African American) 58.5 ml/min; Est GFR (Non-African American) 50.5 ml/min; Potassium 4.4 mmol/L (3.5-5.1)
[2023-02-15] MEDS ORDERED: VANCOMYCIN LEVEL ONE (07:30)
[2023-02-15] MEDS: VANCOMYCIN HCL 1,500 MG in DEXTROSE 5% 500 ML IV SCH (08:38)
--- NOTE | 2023-02-15 09:30 | Hospitalist Progress Note ---
Date of Service February 15, 2023 Assessment & Plan (1) Septic shock: (2) Acute hypernatremia: (3) Acute renal failure (ARF): (4) Goals of care, counseling/discussion: Plan Patient is an 87 yr male presents from [facility] with septic shock, renal failure. Revoked hospice for ED admission per request who was traveling from [facility]. Pt was intubated. Admitting team confirmed NO CPR, defibrillation, cardioversion in the event of cardiac arrest. Continue pressors with hope of arriving from [facility]. Grave prognosis. Septic Shock with staph ([employer] not lugdunensis) bacteremia, possible sources include pneumonia and UTI wtih indwelling Ferris. Pansensitive Klebsiella in sputum Liliana in sputum likely a contaminant High risk for aspiration pneumonia. Known recent month long admission with urosepsis; was recently on Hospice Repeat blood cultures were negative. He continues on Vanc and Rocephin (Initially admitted on Vanc/Zosyn 02/03) --ECHO: Mild concentric LVH. Septal motion is abnormal, consistent with right ventricular pacemaker activation, left ventricle systolic function is low normal, EF 50 to 55%, bioprosthetic aortic valve, mild mitral regurgitation, grade 2 diastolic dysfunction, mild tricuspid regurgitation --Urine Culture: Noncontributory (H/O chronic Ferris, recent h/o of UTI) -- Weaned off of pressors and extubated 02/06 Continue vancomycin/Rocephin and await ID recommendations for abx Palliative care following Patient's POA now agreeing to no escalation of care (pressors, CPR, intubation) She declines COURT. However, POA would like PEG feeds. PEG placed 02/14-started feeds today, 02/15 Remains high risk for aspiration [facility] cannot accept him back with PEG in place Case management is assisting with new disposition option. Acute hypoxic respiratory failure Secondary to left lower lobe pneumonia likely due to aspiration Extubated on 02/06/2023 and now oxygenating 94% on 2LPM via [place] Acute metabolic encephalopathy Secondary to above, in setting of Lewy body dementia and Hypernatremia (Na was 164 on admission 02/03) CT head:No significant change compared to the prior study. No acute intracranial abnormality. Reorient frequently Monitor sodium levels More alert, awake but remains non verbal Severe protein calorie malnutrition Dysphagia PEG placed and will start TFs today Keep HOB at 30 degrees/aspiration precautions. Elev. troponin Troponin level 400's on admission - likely type II NC, secondary to above No further workup at this time. Acute Hypernatremia: Na: 164>>155>152>146>142 Nephrology assisted with correction with dextrose infusion Continue free water flushes between tube feeds Acute Renal Failure: Creatinine 5.93; Prior provider confirmed with patient's , no dialysis -HERSON due to dehydration, ATN -Cr 3.71>2.35> 1.91>1.6>1.2 Monitor renal function Nephrology following H/O Esophageal dysmotility H/O dementia Goals of care addressed with palliative team Speech therapy involved in his care this admission. Chronic Ferris - Ferris was replaced this admission. would like to try a TOV. Will plan to do that in am. 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 Physical Exam Physical Exam: CONSTITUTIONAL: WNWD, vitals as above, generally ill appearing, NAD EYES: normal conjunctivae, no scleral icterus ENT: external ear and nose normal, NECK: trachea midline RESPIRATORY: clear to auscultation bilaterally, no crackles, rales or wheezes, normal respiratory effort CARDIOVASCULAR: regular rate and rhythm, S1 and 2 heard without murmurs, gallops or rubs, no JVD, no peripheral edema. CHEST: inspection of chest was normal (+pacemaker, +port) GASTROINTESTINAL: normal bowel sounds, soft, nontender, no hepatomegaly, no guarding MUSCULOSKELETAL: generalized weakness with stiffened arms and legs and resistance to repositioning, head is normocephalic and atraumatic, neck supple, normal palpation of chest wall without tenderness SKIN: warm and dry, no rashes NEUROLOGIC: normal cognition, no tremor PSYCHIATRIC: alert cooperative and oriented to none. Results & Data Results & Data Vital Signs (Past 12 Hours) Vital Signs Temp Pulse Pulse Resp BP Pulse Ox O2 Del Method 02/15/23 07:58 36.7 C 71 18 160/81 H 94 Nasal Cannula 02/15/23 03:20 36.6 C 60 16 149/80 H 100 Nasal Cannula 02/14/23 23:43 62 02/14/23 23:39 36.8 C 60 18 138/75 100 Nasal Cannula O2 Flow Rate 02/15/23 07:58 2 02/15/23 03:20 2 02/14/23 23:43 02/14/23 23:39 2 Laboratory Results Short CBC 02/15/23 Range/Units 06:00 WBC 8.93 (4.8-10.8) K/ul Hgb 9.7 L (14.0-18.0) g/dl Hct 30.1 L (42.0-52.0) % Plt Count 288 (130-400) K/uL BMP 02/15/23 06:00 Sodium 143 Potassium 4.4 Chloride 109 H Carbon Dioxide 29 BUN 35 H Creatinine 1.27 Glucose 95 Calcium 7.8 L Medications Administered Current Inpatient Medications Acetaminophen (Acetaminophen 325 Mg Tab) 650 mg PO Q4H PRN PRN Reason: Pain or Fever Stop: 03/13/23 10:34 Last Admin: 02/13/23 06:15 Dose: 650 mg Al Hydrox/Mg Hydrox/Simethicone (Aluminum/Magnesium Susp 30 Ml Udc) 15 ml PO Q4H PRN PRN Reason: Dyspepsia Stop: 03/05/23 15:43 Aspirin (Aspirin 81 Mg Chew) 81 mg PO QAM FERNIE Stop: 03/14/23 08:59 Last Admin: 02/14/23 08:34 Dose: 81 mg Atorvastatin Calcium (Atorvastatin 20 Mg Tab) 20 mg PO QPM FERNIE Stop: 03/12/23 20:59 Last Admin: 02/14/23 19:40 Dose: Not Given Carbidopa/Levodopa (Carbidopa/Levodopa 25/100mg Tab) 1 tab PO BID FERNIE Stop: 03/12/23 20:59 Last Admin: 02/14/23 19:40 Dose: Not Given Dextrose (Dextrose 50% 50 Ml Syringe) 25 - 50 ml IV UD PRN; Protocol PRN Reason: Hypoglycemia Protocol Stop: 03/05/23 21:01 Donepezil HCl (Donepezil Hcl 5 Mg Tab) 5 mg PO QAM FERNIE Stop: 03/13/23 08:59 Last Admin: 02/14/23 08:35 Dose: 5 mg Enteral Nutritional Formula (Fibersource Hn 1.2 Jeremy 1000 Ml Bag) 1,000 ml NG UD FERNIE; Protocol Stop: 03/10/23 14:14 Last Admin: 02/13/23 19:36 Dose: 1,000 ml Glucagon (Glucagon For Inj 1 Mg Vial) 1 mg SQ UD PRN; Protocol PRN Reason: Hypoglycemia Protocol Stop: 03/06/23 02:57 Glucose (Glucose 10 Tab/Tube) 4 - 8 tab PO UD PRN; Protocol PRN Reason: Hypoglycemia Treatment Stop: 03/05/23 21:01 Glucose (Glucose 40% Gel 15 Gm Tube) 15 - 30 gm PO UD PRN; Protocol PRN Reason: Hypoglycemia Protocol Stop: 03/05/23 21:01 Glycopyrrolate (Glycopyrrolate 0.2 Mg/Ml Vial) 0.2 mg IV Q3H PRN PRN Reason: secretions Stop: 03/05/23 16:47 Heparin Sodium (Beef Lung) (Heparin 10 Unit/Ml 5 Ml Flush) 5 ml FLUSH PRN PRN PRN Reason: Flush Stop: 03/08/23 16:07 Last Admin: 02/06/23 21:35 Dose: 5 ml Heparin Sodium (Porcine) (Heparin Sod 5,000 Unit/0.5 Ml Vial) 5,000 units SQ Q12 FERNIE Stop: 03/06/23 10:29 Last Admin: 02/14/23 20:12 Dose: 5,000 units Pantoprazole Sodium 40 mg/ (Syringe) 10 mls @ 5 mls/min IV DAILY@1100 [facility] Stop: 03/06/23 10:59 Last Admin: 02/14/23 13:14 Dose: 5 mls/min Ceftriaxone Sodium 2,000 mg/ (Dextrose) 70 mls @ 140 mls/hr IV Q24H [facility] Stop: 02/15/23 11:29 Last Infusion: 02/14/23 12:54 Dose: Infused Vancomycin HCl 1,500 mg/ (Dextrose) 530 mls @ 200 mls/hr IV Q24H [facility]; Protocol Stop: 02/17/23 23:59 Last Admin: 02/15/23 08:38 Dose: 200 mls/hr Insulin Aspart (Insulin Aspart Per Unit Charge) 0 units SC Q4 FERNIE Stop: 03/08/23 15:59 Last Admin: 02/15/23 08:38 Dose: Not Given Magnesium Hydroxide (Magnesium Hydroxide Susp 30 Ml Udc) 30 ml PO Q12H PRN PRN Reason: Constipation Stop: 03/05/23 15:43 Miscellaneous (Carbohydrates For Hypoglycemia ) 15 - 30 gm PO UD PRN PRN Reason: Hypoglycemia Protocol Stop: 03/05/23 21:01 Miscellaneous Information (Vancomycin Consult Active) 1 each N/A UD PRN PRN Reason: Consult Stop: 02/17/23 23:59 Ondansetron HCl (Ondansetron Inj 2 Mg/Ml 2 Ml Vial) 4 mg IV Q6H PRN PRN Reason: Nausea Stop: 03/05/23 15:43 Polyethylene Glycol (Polyethylene (Miralax) 17 Gm Pack) 17 gm PO DAILY PRN PRN Reason: Constipation Stop: 03/05/23 15:43 Sterile Water (Tube Feeding Water Flush) 150 ml GT Q4H FERNIE Stop: 03/12/23 16:14 Last Admin: 02/15/23 08:39 Dose: Not Given
[2023-02-15] MEDS: HEPARIN SOD 5,000 UNIT/0.5 ML VIAL SQ SCH ×2 (10:31→20:16)
--- NOTE | 2023-02-15 12:39 | Communication Note ---
Date of Service: February 15, 2023 87-year-old male with advanced Parkinson's and dementia, underwent PEG yesterday. Dressing dry, removed, PEG tube intact, able to be turned freely, sits snug. OK to use PEG for feedings. GI will sign off. Please notify us of new/worsening GI issues. I performed a history and physical examination of the patient today, including specifically on physical exam - soft abdomen. I have discussed the patient's management with the advanced practitioner. Please refer to the nurse practitioner's note for the documented findings and plan of care. PEG intact. Please keep the bumper to avoid dislodgement. Recall GI if needed.
[2023-02-15] MEDS: cefTRIAXone SODIUM 2,000 MG in DEXTROSE 5% 50 ML IV SCH (12:59)
[2023-02-15] MEDS: PANTOprazole 40 MG in SYRINGE 0 ML IV SCH (13:00)
[2023-02-15] MEDS: CARBIDOPA/LEVODOPA 25/100MG TAB PO SCH ×2 (13:00→20:16)
[2023-02-15] MEDS: ASPIRIN 81 MG CHEW PO SCH (13:01)
[2023-02-15] MEDS: DONEPEZIL HCL 5 MG TAB PO SCH (13:01)
--- NOTE | 2023-02-15 14:14 | Pharmacy Report ---
Pharmacy PK ABX Note - Date of Service February 15, 2023 - Assessment and Plan Assessment 87 year old M receiving IV Vancomycin and ceftriaxone for treatment of severe sepsis secondary to pneumonia/bacteremia. Day # 7 of antimicrobial therapy. 02/04: Level this morning was 9.1 ~ 12 hours after loading dose. Patient appears to be clearing more than expected. Another one time dose was administered this morning. Will obtain another random this evening to help guide dosing given thaddeus al function. 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 02/05: Bcx updates to staph species growing in 3/4 bottles. Biofire indicates MRSE. Gram negative bacilli resulted sputum cx. Scr improved again today and Patient with 2 L urine output yesterday. Given scr, but evident clearance, it continues to be difficult to determine a consistent dosing regimen for vancomycin. Will continue to dose conservatively, but with frequent levels to ensure maintaining therapeutic levels. 02/06: BCx from 02/03 (+) Staph spp in /. Biofire (+) MRSE. Sensitivities are still pending. Sputum cx (+) Klebsiella pneumoniae, riggs-sensitive. Zosyn de- escalated to ceftriaxone. SCr continues to down trend with good UOP. Patient has been receiving vanc 750mg ~ q12h and demonstrating some accumulation. Still unable to determine a consistent dosing strategy given rapidly changing renal function. Will continue to dose by levels. 02/07: Blood culture from 02/03 now finalized as 2 separate Coag Negative Staph not lugdunensis, one MRSE and other is pansensitive (likely Staph epi as well). 02/05 blood cultures were updated this morning to no longer be growing anything. Discussed on rounds and provider would like 10-14 days from first set of negative blood cultures for vancomycin (last dose 02/17/23) and 10 days for ceftriaxone (last dose 02/15/23). SCr improved today which was expected secondary to good UOP yesterday. Random level this AM was 16.2 mcg/mL, which is therapeutic. Will continue to dose per levels for now given changing renal function. 02/08: Remains with low grade fevers today, 24 hr Tmax of 37.8oC. Blood cx's from 02/05/23 remain with no growth to date. Random vanc level was 16.1 mcg/mL this AM. SCr improved to 1.9 today. Improvement in SCr lags behind improvement in UOP, and UOP has remained stable for last 48 hours. Therefore, will schedule vancomycin dosing every 24 hours starting this AM. Will order another random lab for tomorrow AM to ensure level remains stable around 16 which is therapeutic. If trough level less than 15, then would consider a dose increase tomorrow. 02/09: Renal function improving to 1.62 today. Stable UOP. Random level this AM (~21hr level) - 14.3mcg/mL; true trough even lower. Given improving renal function, will give an additional 250mg IV X 1 dose this AM and increase the dose to 1gm q24h. Will continue with AM levels given ongoing changes in renal function and SCr lagging behind true renal function. 02/10: Renal function continues to improve, SCr 1.36. Stable UOP. Random level this AM (~ 19hr level)- 13.9mcg/mL predicted to achieve a steady state AUC of 313 which is subtherapeutic. Given renal function approaching baseline, will give a supplemental dose of vanc this AM for total 1500mg and schedule 1500mg q24h. 02/12: Renal function has been stable for the past several days. Random vanc level this morning indicates that current regimen remains appropriate and should achieve target Auc. No changes indicated at this time. 02/15: Random level drawn this AM suggestive that current vancomycin regimen (1500mg Q24H) remains appropriate to target optimal AUC; low probability of nephrotoxicity at 11%. Renal labs otherwise stable. Plan to continue through 02/17 dose, per Dr Gutierrez. Plan Vancomycin * Random Level this morning was 18.9 mcg/ml * Maintenance dose: Continue 1500mg IV every 24 hours * Predicted to achieve steady state AUC 520mg/L.hr and ss trough 16.4 mcg/mL * No further levels have been ordered at this time. Last day of Vanco ant icipated to be 02/17/23. Pharmacy will continue to follow and will adjust dose/frequency as necessary. Thank you.
[2023-02-15] MEDS: ATORVASTATIN 20 MG TAB PO SCH (20:16)
[2023-02-16] MEDS: INSULIN ASPART PER UNIT CHARGE SC SCH ×6 (00:09→22:02)
[2023-02-16] MEDS: TUBE FEEDING WATER FLUSH GT SCH ×6 (00:10→21:33)
[2023-02-16 08:04] LABS: BUN Creatinine Ratio 28.9 (10-20); Calcium 7.9 mg/dl (8.6-10.3); Creatinine Clr Calc Pharmacy 51.4 ml/min; Est GFR (Non-African American) 53.5 ml/min
[2023-02-16] MEDS: VANCOMYCIN HCL 1,500 MG in DEXTROSE 5% 500 ML IV SCH (08:05)
[2023-02-16] MEDS: ASPIRIN 81 MG CHEW PO SCH (08:11)
[2023-02-16] MEDS: DONEPEZIL HCL 5 MG TAB PO SCH (08:11)
[2023-02-16] MEDS: CARBIDOPA/LEVODOPA 25/100MG TAB PO SCH (08:11)
[2023-02-16] MEDS: HEPARIN SOD 5,000 UNIT/0.5 ML VIAL SQ SCH ×2 (08:11→21:38)
--- NOTE | 2023-02-16 09:48 | Hospitalist Progress Note ---
Date of Service February 16, 2023 Assessment & Plan (1) Septic shock: (2) Acute hypernatremia: (3) Acute renal failure (ARF): (4) Goals of care, counseling/discussion: Plan Patient is an 87 yr male presents from [facility] with septic shock, renal failure. Revoked hospice for ED admission per request who was traveling from [facility]. Pt was intubated. Admitting team confirmed NO CPR, defibrillation, cardioversion in the event of cardiac arrest. Continue pressors with hope of arriving from [facility]. Grave prognosis. Septic Shock with staph ([employer] not lugdunensis) bacteremia, possible sources include pneumonia and UTI wtih indwelling Villasenor. Pansensitive Klebsiella in sputum Liliana in sputum likely a contaminant High risk for aspiration pneumonia. Known recent month long admission with urosepsis; was recently on Hospice Repeat blood cultures were negative. He continues on Vanc and Rocephin (Initially admitted on Vanc/Zosyn 02/03) Will change abx to Vanc Rimfampin 600mg PEG. Plan will be total 6 weeks of Vancomycin with rifampin added from 02/16/23 with surveillance cultures (2 sets from the periphery) 5-7 days post completion of abx therapy. --ECHO: Mild concentric LVH. Septal motion is abnormal, consistent with right ventricular pacemaker activation, left ventricle systolic function is low normal, EF 50 to 55%, bioprosthetic aortic valve, mild mitral regurgitation, grade 2 diastolic dysfunction, mild tricuspid regurgitation --Urine Culture: Noncontributory (H/O chronic Villasenor, recent h/o of UTI) -- Weaned off of pressors and extubated 02/06 Continue vancomycin/Rocephin and await ID recommendations for abx Palliative care following Patient's POA now agreeing to no escalation of care (pressors, CPR, intubation) She declines COURT. However, POA would like PEG feeds. PEG placed 02/14-started feeds today, 02/15 Remains high risk for aspiration [facility] cannot accept him back with PEG in place Case management is assisting with new disposition option. Acute hypoxic respiratory failure Secondary to left lower lobe pneumonia likely due to aspiration Extubated on 02/06/2023 and now oxygenating 99% on 2LPM via [place] Acute metabolic encephalopathy Secondary to above, in setting of Lewy body dementia and Hypernatremia (Na was 164 on admission 02/03) CT head:No significant change compared to the prior study. No acute intracranial abnormality. Reorient frequently Monitor sodium levels More alert, awake but remains non verbal --appears to be his baseline per . Severe protein calorie malnutrition Dysphagia PEG placed and will start TFs today Keep HOB at 30 degrees/aspiration precautions. Elev. troponin Troponin level 400's on admission - likely type II MS, secondary to above No further workup at this time. Acute Hypernatremia: Na: 164>>155>152>146>142 Nephrology assisted with correction with dextrose infusion Continue free water flushes between tube feeds Acute Renal Failure: Creatinine 5.93; Prior provider confirmed with patient's , no dialysis -HERSON due to dehydration, ATN -Cr 3.71>2.35> 1.91>1.6>1.2 Monitor renal function Nephrology following H/O Esophageal dysmotility H/O dementia Goals of care addressed with palliative team Speech therapy involved in his care this admission. Chronic Villasenor/urinary retention - Villasenor was replaced this admission. would like to try a TOV. Will plan to do that in am. 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 Neda Junior DO [facility] Hospitalist Admission and Anticipated Discharge Date Admission Date: February 03, 2023 Subjective 87 christopher M with dementia presents with septic shock Nonverbal today unable to perform a history He doesn't make eye contact or cooperate with exam. Review of Systems Review of Systems: ROS could not be performed 2/2 dementia. Physical Exam Physical Exam: CONSTITUTIONAL: WNWD, vitals as above, position in bed with knees drawn up to abdomen in tight ball, generally ill appearing, NAD EYES: normal conjunctivae, no scleral icterus ENT: external ear and nose normal, NECK: trachea midline RESPIRATORY: clear to auscultation bilaterally, no crackles, rales or wheezes, normal respiratory effort (limited exam as patient not cooperative) CARDIOVASCULAR: regular rate and rhythm, S1 and 2 heard without murmurs, gallops or rubs, no JVD, no peripheral edema. CHEST: +pacemaker present. GASTROINTESTINAL: (exam very limited as patient is in position and resists repositioning) soft, nontender, +PEG tube and abdominal binder, no guarding MUSCULOSKELETAL: generalized weakness with stiffened arms and legs and resistance to repositioning, head is normocephalic and atraumatic, neck supple, normal palpation of chest wall without tenderness SKIN: warm and dry, no rashes : villasenor catheter (later removed by RN) NEUROLOGIC: normal cognition, no tremor PSYCHIATRIC: alert cooperative and oriented to none. Results & Data Results & Data Vital Signs (Past 12 Hours) Vital Signs Temp Pulse Pulse Resp BP Pulse Ox O2 Del Method 02/16/23 07:52 37.2 C 70 19 143/73 H 94 Nasal Cannula 02/16/23 03:25 36.9 C 76 15 149/76 H 100 Nasal Cannula 02/16/23 00:29 71 02/15/23 23:49 36.7 C 73 16 147/90 H 93 Nasal Cannula O2 Flow Rate 02/16/23 07:52 2 02/16/23 03:25 2.5 02/16/23 00:29 02/15/23 23:49 2.5 Laboratory Results [facility] 02/16/23 06:48 Sodium 141 Potassium 5.0 Chloride 109 H Carbon Dioxide 29 BUN 35 H Creatinine 1.21 Glucose 159 H Calcium 7.9 L Medications Administered Current Inpatient Medications Acetaminophen (Acetaminophen 325 Mg Tab) 650 mg PO Q4H PRN PRN Reason: Pain or Fever Stop: 03/13/23 10:34 Last Admin: 02/13/23 06:15 Dose: 650 mg Al Hydrox/Mg Hydrox/Simethicone (Aluminum/Magnesium Susp 30 Ml Udc) 15 ml PO Q4H PRN PRN Reason: Dyspepsia Stop: 03/05/23 15:43 Aspirin (Aspirin 81 Mg Chew) 81 mg PO QAM [facility] Stop: 03/14/23 08:59 Last Admin: 02/16/23 08:11 Dose: 81 mg Atorvastatin Calcium (Atorvastatin 20 Mg Tab) 20 mg PO QPM [facility] Stop: 03/12/23 20:59 Last Admin: 02/15/23 20:16 Dose: 20 mg Carbidopa/Levodopa (Carbidopa/Levodopa 25/100mg Tab) 1 tab PO BID FERNIE Stop: 03/12/23 20:59 Last Admin: 02/16/23 08:11 Dose: 1 tab Dextrose (Dextrose 50% 50 Ml Syringe) 25 - 50 ml IV UD PRN; Protocol PRN Reason: Hypoglycemia Protocol Stop: 03/05/23 21:01 Donepezil HCl (Donepezil Hcl 5 Mg Tab) 5 mg PO QAM FERNIE Stop: 03/13/23 08:59 Last Admin: 02/16/23 08:11 Dose: 5 mg Enteral Nutritional Formula (Fibersource Hn 1.2 Jeremy 1000 Ml Bag) 1,000 ml NG UD FERNIE; Protocol Stop: 03/10/23 14:14 Last Admin: 02/13/23 19:36 Dose: 1,000 ml Glucagon (Glucagon For Inj 1 Mg Vial) 1 mg SQ UD PRN; Protocol PRN Reason: Hypoglycemia Protocol Stop: 03/06/23 02:57 Glucose (Glucose 10 Tab/Tube) 4 - 8 tab PO UD PRN; Protocol PRN Reason: Hypoglycemia Treatment Stop: 03/05/23 21:01 Glucose (Glucose 40% Gel 15 Gm Tube) 15 - 30 gm PO UD PRN; Protocol PRN Reason: Hypoglycemia Protocol Stop: 03/05/23 21:01 Glycopyrrolate (Glycopyrrolate 0.2 Mg/Ml Vial) 0.2 mg IV Q3H PRN PRN Reason: secretions Stop: 03/05/23 16:47 Heparin Sodium (Beef Lung) (Heparin 10 Unit/Ml 5 Ml Flush) 5 ml FLUSH PRN PRN PRN Reason: Flush Stop: 03/08/23 16:07 Last Admin: 02/06/23 21:35 Dose: 5 ml Heparin Sodium (Porcine) (Heparin Sod 5,000 Unit/0.5 Ml Vial) 5,000 units SQ Q12 FERNIE Stop: 03/06/23 10:29 Last Admin: 02/16/23 08:11 Dose: 5,000 units Pantoprazole Sodium 40 mg/ (Syringe) 10 mls @ 5 mls/min IV DAILY@1100 [facility] Stop: 03/06/23 10:59 Last Admin: 02/15/23 13:00 Dose: 5 mls/min Vancomycin HCl 1,500 mg/ (Dextrose) 530 mls @ 200 mls/hr IV Q24H FERNIE; Protocol Stop: 02/17/23 23:59 Last Admin: 02/16/23 08:05 Dose: 200 mls/hr Insulin Aspart (Insulin Aspart Per Unit Charge) 0 units SC Q4 FERNIE Stop: 03/08/23 15:59 Last Admin: 02/16/23 08:04 Dose: Not Given Magnesium Hydroxide (Magnesium Hydroxide Susp 30 Ml Udc) 30 ml PO Q12H PRN PRN Reason: Constipation Stop: 03/05/23 15:43 Miscellaneous (Carbohydrates For Hypoglycemia ) 15 - 30 gm PO UD PRN PRN Reason: Hypoglycemia Protocol Stop: 03/05/23 21:01 Miscellaneous Information (Vancomycin Consult Active) 1 each N/A UD PRN PRN Reason: Consult Stop: 02/17/23 23:59 Ondansetron HCl (Ondansetron Inj 2 Mg/Ml 2 Ml Vial) 4 mg IV Q6H PRN PRN Reason: Nausea Stop: 03/05/23 15:43 Polyethylene Glycol (Polyethylene (Miralax) 17 Gm Pack) 17 gm PO DAILY PRN PRN Reason: Constipation Stop: 03/05/23 15:43 Sterile Water (Tube Feeding Water Flush) 150 ml GT Q4H [facility]ERNIE Stop: 03/12/23 16:14 Last Admin: 02/16/23 08:05 Dose: 150 ml
[2023-02-16] MEDS: FIBERSOURCE HN 1.2 CAL 1000 ML BAG NG SCH (10:28)
[2023-02-16] MEDS: PANTOprazole 40 MG in SYRINGE 0 ML IV SCH (12:49)
[2023-02-16] MEDS ORDERED: FIBERSOURCE HN 1.2 CAL 1000 ML BAG GT SCH (17:30)
[2023-02-16] MEDS ORDERED: RIFAMPIN PO SCH (17:30)
[2023-02-16] MEDS: RIFAMPIN PO SCH (21:37)
[2023-02-16] MEDS: CARBIDOPA/LEVODOPA 25/100MG TAB PEG SCH (21:37)
[2023-02-16] MEDS: ATORVASTATIN 20 MG TAB PEG SCH (21:37)
[2023-02-17] MEDS: TUBE FEEDING WATER FLUSH GT SCH ×6 (00:23→19:41)
[2023-02-17] MEDS: INSULIN ASPART PER UNIT CHARGE SC SCH ×7 (00:47→23:28)
[2023-02-17 08:01] LABS: BUN Creatinine Ratio 29.1 (10-20); Calcium 7.3 mg/dl (8.6-10.3); Creatinine Clr Calc Pharmacy 53.2 ml/min; Est GFR (African American) 64.6 ml/min; Est GFR (Non-African American) 55.7 ml/min; Magnesium 1.8 mg/dl (1.7-2.4); Phosphorus 2.6 mg/dl (2.5-4.9); Potassium 4.1 mmol/L (3.5-5.1)
[2023-02-17] MEDS: ASPIRIN 81 MG CHEW PEG SCH (08:20)
[2023-02-17] MEDS: CARBIDOPA/LEVODOPA 25/100MG TAB PEG SCH ×2 (08:20→20:07)
[2023-02-17] MEDS: HEPARIN SOD 5,000 UNIT/0.5 ML VIAL SQ SCH ×2 (08:21→20:08)
[2023-02-17] MEDS: DONEPEZIL HCL 5 MG TAB PO SCH (08:21)
--- NOTE | 2023-02-17 08:22 | Hospitalist Progress Note ---
Date of Service February 17, 2023 Assessment & Plan (1) Septic shock: (2) Acute hypernatremia: (3) Acute renal failure (ARF): (4) Goals of care, counseling/discussion: Plan Patient is an 87 yr male presents from [facility] with septic shock, renal failure. Revoked hospice for ED admission per request who was traveling from [facility]. Pt was intubated. Admitting team confirmed NO CPR, defibrillation, cardioversion in the event of cardiac arrest. Continue pressors with hope of arriving from [facility]. Grave prognosis. 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 Pansensitive Klebsiella in sputum Liliana in sputum likely a contaminant High risk for aspiration pneumonia. Known recent month long admission with urosepsis; was recently on Hospice Repeat blood cultures were negative. He continues on Vanc and Rocephin (Initially admitted on Vanc/Zosyn 02/03) Will change abx to Vanc Rimfampin 600mg PEG. Plan will be total 6 weeks of Vancomycin with rifampin added from 02/16/23 with surveillance cultures (2 sets from the periphery) 5-7 days post completion of abx therapy. --ECHO: Mild concentric LVH. Septal motion is abnormal, consistent with right ventricular pacemaker activation, left ventricle systolic function is low normal, EF 50 to 55%, bioprosthetic aortic valve, mild mitral regurgitation, grade 2 diastolic dysfunction, mild tricuspid regurgitation --Urine Culture: Noncontributory (H/O chronic Villasenor, recent h/o of UTI) -- Weaned off of pressors and extubated 02/06 Continue vancomycin/Rocephin and await ID recommendations for abx Palliative care following Patient's POA now agreeing to no escalation of care (pressors, CPR, intubation) She declines COURT. However, POA would like PEG feeds. PEG placed 02/14-started feeds today, 02/15 Remains high risk for aspiration [facility] cannot accept him back with PEG in place Case management is assisting with new disposition option. Acute hypoxic respiratory failure Secondary to left lower lobe pneumonia likely due to aspiration Extubated on 02/06/2023 and now oxygenating 99% on 2LPM via [place] Acute metabolic encephalopathy/known Dementia Secondary to above, in setting of Lewy body dementia and Hypernatremia (Na was 164 on admission 02/03) CT head:No significant change compared to the prior study. No acute intracranial abnormality. Reorient frequently Monitor sodium levels More alert, awake but remains non verbal --appears to be his baseline per . Severe protein calorie malnutrition Dysphagia PEG placed and will start TFs today Keep HOB at 30 degrees/aspiration precautions. Elev. troponin Troponin level 400's on admission - likely type II [place], secondary to above No further workup at this time. Acute Hypernatremia: Na: 164>>155>152>146>142 Nephrology assisted with correction with dextrose infusion Continue free water flushes between tube feeds Acute Renal Failure: Creatinine 5.93; Prior provider confirmed with patient's , no dialysis -[facility] due to dehydration, ATN -Cr 3.71>2.35> 1.91>1.6>1.2 Monitor renal function Nephrology following H/O Esophageal dysmotility H/O dementia Goals of care addressed with palliative team Speech therapy involved in his care this admission. Chronic Villasenor/urinary retention - Villasenor was replaced this admission. would like to try a TOV. Will plan to do that in am. 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 [facility] Hospital[facility] Admission and Anticipated Discharge Date Admission Date: February 03, 2023 Subjective 87 yo M with dementia presents with septic shock Nonverbal today unable to perform a history He doesn't make eye contact or cooperate with exam. Per she was very concerned about his urinary retention She was so happy that he was having some spontaneous urination There was some urinary retention and will proceed with CIC PRN Patient was consented for PICC and IV team tried twice but end of catheter kept getting coiled so midline was placed instead for plans to continue vancomycin for the next 4 weeks. 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 She confirmed to me that he is not someone for Hospice, that was a mistake and she doesn't want to be overly aggressive, but does want to keep treating him. She is hoping that he might get back to transferring independently and able to be at home. Will ask neurology for some help with medications to help with rigidity that we are seeing. Review of Systems Review of Systems: ROS could not be performed 2/2 dementia. Physical Exam Physical Exam: CONSTITUTIONAL: WNWD, vitals as above, position in bed with knees drawn up to abdomen in tight ball, generally ill appearing, NAD EYES: normal conjunctivae, no scleral icterus ENT: external ear and nose normal, NECK: trachea midline RESPIRATORY: clear to auscultation bilaterally, no crackles, rales or wheezes, normal respiratory effort (limited exam as patient not cooperative) CARDIOVASCULAR: regular rate and rhythm, S1 and 2 heard without murmurs, gallops or rubs, no JVD, no peripheral edema. CHEST: +pacemaker present. GASTROINTESTINAL: (exam very limited as patient is in position and resists repositioning) soft, nontender, +PEG tube and abdominal binder, no guarding MUSCULOSKELETAL: generalized weakness with stiffened arms and legs and resistance to repositioning, head is normocephalic and atraumatic, neck supple, normal palpation of chest wall without tenderness SKIN: warm and dry, no rashes : villasenor catheter (later removed by RN) NEUROLOGIC: normal cognition, no tremor PSYCHIATRIC: alert cooperative and oriented to none. Results & Data Results & Data Vital Signs (Past 12 Hours) Vital Signs Temp Pulse Resp BP Pulse Ox O2 Del Method O2 Flow Rate 02/17/23 07:15 37.0 C 66 18 109/62 96 Nasal Cannula 2 02/16/23 22:47 Nasal Cannula 2 02/16/23 21:28 37.5 C 86 16 144/74 H 97 Nasal Cannula 2 Laboratory Results BMP 02/17/23 07:31 Sodium 139 Potassium 4.1 Chloride 107 Carbon Dioxide 29 BUN 34 H Creatinine 1.17 Glucose 161 H Calcium 7.3 L Medications Administered Current Inpatient Medications Acetaminophen (Acetaminophen 325 Mg Tab) 650 mg PEG Q4H PRN PRN Reason: Pain or Fever Stop: 03/13/23 10:34 Aspirin (Aspirin 81 Mg Chew) 81 mg PEG QAM FERNIE Stop: 03/19/23 08:59 Atorvastatin Calcium (Atorvastatin 20 Mg Tab) 20 mg PEG QPM FERNIE Stop: 03/18/23 20:59 Last Admin: 02/16/23 21:37 Dose: 20 mg Carbidopa/Levodopa (Carbidopa/Levodopa 25/100mg Tab) 1 tab PEG BID FERNIE Stop: 03/18/23 20:59 Last Admin: 02/16/23 21:37 Dose: 1 tab Dextrose (Dextrose 50% 50 Ml Syringe) 25 - 50 ml IV UD PRN; Protocol PRN Reason: Hypoglycemia Protocol Stop: 03/05/23 21:01 Donepezil HCl (Donepezil Hcl 5 Mg Tab) 5 mg PO QAM FERNIE Stop: 03/13/23 08:59 Last Admin: 02/16/23 08:11 Dose: 5 mg Enteral Nutritional Formula (Fibersource Hn 1.2 Jeremy 1000 Ml Bag) 1,000 ml GT UD FERNIE; Protocol Stop: 03/18/23 17:29 Glucagon (Glucagon For Inj 1 Mg Vial) 1 mg SQ UD PRN; Protocol PRN Reason: Hypoglycemia Protocol Stop: 03/06/23 02:57 Glucose (Glucose 40% Gel 15 Gm Tube) 15 - 30 gm PO UD PRN; Protocol PRN Reason: Hypoglycemia Protocol Stop: 03/05/23 21:01 Glycopyrrolate (Glycopyrrolate 0.2 Mg/Ml Vial) 0.2 mg IV Q3H PRN PRN Reason: secretions Stop: 03/05/23 16:47 Heparin Sodium (Beef Lung) (Heparin 10 Unit/Ml 5 Ml Flush) 5 ml FLUSH PRN PRN PRN Reason: Flush Stop: 03/08/23 16:07 Last Admin: 02/06/23 21:35 Dose: 5 ml Heparin Sodium (Porcine) (Heparin Sod 5,000 Unit/0.5 Ml Vial) 5,000 units SQ Q12 FERNIE Stop: 03/06/23 10:29 Last Admin: 02/16/23 21:38 Dose: 5,000 units Vancomycin HCl 1,500 mg/ (Dextrose) 530 mls @ 200 mls/hr IV Q24H FERNIE; Protocol Stop: 02/17/23 23:59 Last Infusion: 02/16/23 11:02 Dose: Infused Insulin Aspart (Insulin Aspart Per Unit Charge) 0 units SC Q4 FERNIE Stop: 03/08/23 15:59 Last Admin: 02/17/23 04:05 Dose: Not Given Lansoprazole (Lansoprazole 30 Mg Soltab) 30 mg PEG QAM FERNIE Stop: 03/19/23 08:59 Miscellaneous Information (Vancomycin Consult Active) 1 each N/A UD PRN PRN Reason: Consult Stop: 02/17/23 23:59 Polyethylene Glycol (Polyethylene (Miralax) 17 Gm Pack) 17 gm PO DAILY PRN PRN Reason: Constipation Stop: 03/05/23 15:43 Rifampin (Rifampin 600mg/60ml Udp) 600 mg PO Q24H FERNIE Stop: 03/02/23 17:59 Last Admin: 02/16/23 21:37 Dose: 600 mg Sterile Water (Tube Feeding Water Flush) 150 ml GT Q4H FERNIE Stop: 03/12/23 16:14 Last Admin: 02/17/23 04:06 Dose: 150 ml
[2023-02-17] MEDS: VANCOMYCIN HCL 1,500 MG in DEXTROSE 5% 500 ML IV SCH ×2 (09:07→19:41)
[2023-02-17] MEDS: LANSOPRAZOLE 30 MG SOLTAB PEG SCH (09:07)
--- NOTE | 2023-02-17 14:11 | XRay Report ---
XR chest 1V portable CLINICAL HISTORY: PICC placement TECHNIQUE: Single frontal radiograph of the chest was obtained. Comparison: Comparison is made to chest radiograph 02/06/2023 FINDINGS: Right PICC tip is looped and is oriented towards the internal carotid artery. Median sternotomy wires are seen. Dual-lead pacemaker is noted. Cardiomegaly is noted. The aortic arch is calcified. Bilater al lower lung airspace opacities are again seen. No evidence of pleural effusion or pneumothorax. IMPRESSION: 1. The PICC is looped with the tip oriented superiorly into the internal carotid artery, repositioni ng is recommended. 2. Stable cardiomegaly and bilateral lower lung airspace opacities likely reflecting atelectasis. ACT 112: Negative or not required by law. Electronically signed by: Faisal Moraes M.D. 02/17/2023 2:09 PM
--- NOTE | 2023-02-17 15:43 | XRay Report ---
XR chest 1V portable CLINICAL HISTORY: confirm picc placement TECHNIQUE: Single frontal radiograph of the chest was obtained. Comparison: Comparison is made to chest radiograph 02/17/2023 FINDINGS: The right PICC is again noted to be looped with the tip oriented superiorly in the right carotid chasidy ry. Median sternotomy wires are unchanged. Dual-lead pacemaker is seen. Cardiomegaly is noted. The ao rtic arch is calcified. Bilateral lower lung predominant airspace opacities are seen. No evidence of pleural effusion or pneumothorax. IMPRESSION: Again noted is a looped PICC catheter, repositioning is recommended. Stable cardiomegaly and bilatera l lower lung airspace opacities. ACT 112: Negative or not required by law. Electronically signed by: Faisal Moraes M.D. 02/17/2023 3:42 PM
--- NOTE | 2023-02-17 18:09 | CT Scan Report ---
CT facial bones wo con CLINICAL HISTORY: septic shock, dental dz, r/o dental infxn/abscess TECHNIQUE: Multidetector row helical CT of the maxillofacial bones was performed without administrati on of intravenous contrast, and processed with bone and soft tissue algorithms. Coronal and sagittal reformations were obtained. Automated dose lowering techniques and/or adjustment according to patient size were utilized for this exam. CT DOSE: 673.88 mGycm Comparison: Comparison is made to CT facial bones 08/29/2022 FINDINGS: Old-appearing nasal fracture is seen. Exam of the dentition is limited by streak artifact however no definite periapical abscess oral breakthrough is seen. The temporomandibular joints are anatomically aligned. Pterygoid plates are intact. Zygomatic arches are intact. The globes are normal and symmetric, without proptosis, obvious disruption or lens dislocation. Ther e is no orbital radiopaque foreign body. The orbital farias are intact. The retrobulbar fat is without evidence of disruption. Extraocular muscles are normal and symmetric. Optic nerve sheath complexes are normal in course and caliber. Imaged portions of the paranasal sinuses and mastoid air cells are clear. IMPRESSION: Limited exam due to dental amalgam. No evidence of periapical abscesses is seen. No drainable soft ti ssue collection. Old nasal bone fracture is seen. ACT 112: Negative or not required by law. Electronically signed by: Faisal Moraes M.D. 02/17/2023 6:08 PM
[2023-02-17] MEDS: RIFAMPIN PO SCH (19:07)
[2023-02-17] MEDS: ATORVASTATIN 20 MG TAB PEG SCH (20:07)
[2023-02-18] MEDS: TUBE FEEDING WATER FLUSH GT SCH ×6 (00:10→20:47)
[2023-02-18] MEDS: INSULIN ASPART PER UNIT CHARGE SC SCH ×5 (03:46→20:46)
[2023-02-18] MEDS ORDERED: VANCOMYCIN CONSULT ACTIVE PRN (06:48)
[2023-02-18] MEDS ORDERED: VANCOMYCIN HCL 1,000 MG in SODIUM CHLORIDE 0.9% 250 ML IV SCH (07:00)
--- NOTE | 2023-02-18 07:38 | Hospitalist Progress Note ---
Date of Service February 18, 2023 Assessment & Plan (1) Septic shock: (2) Acute hypernatremia: (3) Acute renal failure (ARF): (4) Goals of care, counseling/discussion: (5) Anemia: Plan Patient is an 87 yr male presents from [facility] with septic shock, renal failure. Revoked hospice for ED admission per request who was traveling from [facility]. Pt was intubated. Admitting team confirmed NO CPR, defibrillation, cardioversion in the event of cardiac arrest. Continue pressors with hope of arriving from [facility]. Grave prognosis. Anemia: worsening since admission No active bleeding Hb16.5 on admission-->12.5 after sepsis resuscitation. Now is 8.0 Iron deficiency present Peripheral smear without schistocytes, normal retic count-->hemolysis less likely Anemia of chronic disease, complicated by acute infection and frequent phlebotomy in setting of prolonged hospital stay Starting iron supplementation now. 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 Pansensitive Klebsiella in sputum Liliana in sputum likely a contaminant High risk for aspiration pneumonia. Known recent month long admission with urosepsis; was recently on Hospice Repeat blood cultures were negative. Initially admitted on Vanc/Zosyn 02/03 Plan will be total 6 weeks of Vancomycin with rifampin added from 02/16/23 with surveillance cultures (2 sets from the periphery) 5-7 days post completion of abx therapy. --ECHO: Mild concentric LVH. Septal motion is abnormal, consistent with right ventricular pacemaker activation, left ventricle systolic function is low normal, EF 50 to 55%, bioprosthetic aortic valve, mild mitral regurgitation, grade 2 diastolic dysfunction, mild tricuspid regurgitation --Urine Culture: Noncontributory (H/O chronic Ferris, recent h/o of UTI) -- Weaned off of pressors and extubated 02/06 Continue vancomycin/Rocephin and await ID recommendations for abx Palliative care following Patient's POA now agreeing to no escalation of care (pressors, CPR, intubation) She declines COURT. However, POA would like PEG feeds. PEG placed 02/14-tolerating feeds without residual Remains high risk for aspiration [facility] cannot accept him back with PEG in place Case management is assisting with new disposition option-->to centre care Acute hypoxic respiratory failure Secondary to left lower lobe pneumonia likely due to aspiration Extubated on 02/06/2023 and now oxygenating 99% on 2LPM via [place] Acute metabolic encephalopathy/known Dementia Secondary to above, in setting of Lewy body dementia and Hypernatremia (Na was 164 on admission 02/03) CT head: No significant change compared to the prior study. No acute intracranial abnormality. Reorient frequently Monitor sodium levels More alert, awake but remains non verbal --appears to be his baseline per . Severe protein calorie malnutrition Dysphagia PEG placed and tolerating TFs Keep HOB at 30 degrees/aspiration precautions. Elev. troponin Troponin level 400's on admission - likely type II [place], secondary to above No further workup at this time. Acute Hypernatremia: Na: 164>>155>152>146>142 Nephrology assisted with correction with dextrose infusion Continue free water flushes between tube feeds Acute Renal Failure: Creatinine 5.93; Prior provider confirmed with patient's , no dialysis -[facility] due to dehydration, ATN -Cr 3.71>2.35> 1.91>1.6>1.2 Monitor renal function Nephrology following H/O Esophageal dysmotility H/O dementia Goals of care addressed with palliative team Speech therapy involved in his care this admission. Chronic Ferris/urinary retention - Ferris was replaced this admission. would like to try a TOV. Will plan to do that in am. 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 I spent a total [id number] coordinating, documenting, and providing care for this patient excluding time spent in the performance of separately billed services DO Linda Solis Hospitalist Admission and Anticipated Discharge Date Admission Date: February 03, 2023 Subjective 87 yo M with dementia presents with septic shock Nonverbal today unable to perform a history He does appear more interactive today, however. . at bedside, discussed plan to continue CIC at [facility]. Discussed stopping Aricept and starting alpha-ban and she is happy with these decisions I coordinated with Urology CLINICAL NURSE LEADER this am and they will set him up for followup in the clinic in a couple of months to re-evaluate his AUR issues. was interested in considering TURP at that time and discussed this today. Midline site evaluated and is intact. Discussed pressure injuries and how to prevent these Reviewed CT scan with -no dental infection present. Review of Systems Review of Systems: ROS could not be performed 2/2 dementia. Physical Exam Physical Exam: CONSTITUTIONAL: WNWD, vitals as above, generally ill appearing, elderly, deconditioned, NAD EYES: normal conjunctivae, no scleral icterus ENT: external ear and nose normal, NECK: trachea midline RESPIRATORY: clear to auscultation bilaterally, no crackles, rales or wheezes, normal respiratory effort (limited exam as patient not cooperative) CARDIOVASCULAR: regular rate and rhythm, S1 and 2 heard without murmurs, gallops or rubs, no JVD, no peripheral edema. CHEST: +pacemaker present. GASTROINTESTINAL: (exam very limited as patient is in position and resists repositioning) soft, nontender, +PEG tube and abdominal binder, no guarding MUSCULOSKELETAL: generalized weakness with stiffened arms and legs and resistance to repositioning, head is normocephalic and atraumatic, neck supple, normal palpation of chest wall without tenderness SKIN: warm and dry, no rashes NEUROLOGIC: normal cognition, no tremor PSYCHIATRIC: alert cooperative and oriented to none. Results & Data Results & Data Vital Signs (Past 12 Hours) Vital Signs Temp Pulse Resp BP Pulse Ox O2 Del Method O2 Flow Rate 02/17/23 23:25 36.4 C L 74 16 116/57 L 95 Room Air 02/17/23 20:27 Nasal Cannula 2 Laboratory Results [facility] 02/17/23 07:31 Sodium 139 Potassium 4.1 Chloride 107 Carbon Dioxide 29 BUN 34 H Creatinine 1.17 Glucose 161 H Calcium 7.3 L Medications Administered Current Inpatient Medications Acetaminophen (Acetaminophen 325 Mg Tab) 650 mg PEG Q4H PRN PRN Reason: Pain or Fever Stop: 03/13/23 10:34 Aspirin (Aspirin 81 Mg Chew) 81 mg PEG QAM [facility] Stop: 03/19/23 08:59 Last Admin: 02/17/23 08:20 Dose: 81 mg Atorvastatin Calcium (Atorvastatin 20 Mg Tab) 20 mg PEG QPM [facility] Stop: 03/18/23 20:59 Last Admin: 02/17/23 20:07 Dose: 20 mg Carbidopa/Levodopa (Carbidopa/Levodopa 25/100mg Tab) 1 tab PEG BID FERNIE Stop: 03/18/23 20:59 Last Admin: 02/17/23 20:07 Dose: 1 tab Dextrose (Dextrose 50% 50 Ml Syringe) 25 - 50 ml IV UD PRN; Protocol PRN Reason: Hypoglycemia Protocol Stop: 03/05/23 21:01 Donepezil HCl (Donepezil Hcl 5 Mg Tab) 5 mg PO QAM FERNIE Stop: 03/13/23 08:59 Last Admin: 02/17/23 08:21 Dose: 5 mg Enteral Nutritional Formula (Fibersource Hn 1.2 Jeremy 1000 Ml Bag) 1,000 ml GT UD FERNIE; Protocol Stop: 03/18/23 17:29 Glucagon (Glucagon For Inj 1 Mg Vial) 1 mg SQ UD PRN; Protocol PRN Reason: Hypoglycemia Protocol Stop: 03/06/23 02:57 Glucose (Glucose 40% Gel 15 Gm Tube) 15 - 30 gm PO UD PRN; Protocol PRN Reason: Hypoglycemia Protocol Stop: 03/05/23 21:01 Glycopyrrolate (Glycopyrrolate 0.2 Mg/Ml Vial) 0.2 mg IV Q3H PRN PRN Reason: secretions Stop: 03/05/23 16:47 Heparin Sodium (Beef Lung) (Heparin 10 Unit/Ml 5 Ml Flush) 5 ml FLUSH PRN PRN PRN Reason: Flush Stop: 03/08/23 16:07 Last Admin: 02/06/23 21:35 Dose: 5 ml Heparin Sodium (Porcine) (Heparin Sod 5,000 Unit/0.5 Ml Vial) 5,000 units SQ Q12 FERNIE Stop: 03/06/23 10:29 Last Admin: 02/17/23 20:08 Dose: 5,000 units Vancomycin HCl 1,500 mg/ (Dextrose) 530 mls @ 200 mls/hr IV Q24H FERNIE; Protocol Stop: 03/17/23 18:59 Insulin Aspart (Insulin Aspart Per Unit Charge) 0 units SC Q4 FERNIE Stop: 03/08/23 15:59 Last Admin: 02/18/23 03:46 Dose: Not Given Lansoprazole (Lansoprazole 30 Mg Soltab) 30 mg PEG QAM FERNIE Stop: 03/19/23 08:59 Last Admin: 02/17/23 09:07 Dose: 30 mg Miscellaneous Information (Vancomycin Consult Active) 1 each N/A UD PRN PRN Reason: Consult Stop: 03/20/23 06:47 Polyethylene Glycol (Polyethylene (Miralax) 17 Gm Pack) 17 gm PO DAILY PRN PRN Reason: Constipation Stop: 03/05/23 15:43 Rifampin (Rifampin 600mg/60ml Udp) 600 mg PO Q24H FERNIE Stop: 03/02/23 17:59 Last Admin: 02/17/23 19:07 Dose: 600 mg Sterile Water (Tube Feeding Water Flush) 150 ml GT Q4H FERNIE Stop: 03/12/23 16:14 Last Admin: 02/18/23 04:23 Dose: 150 ml
[2023-02-18 08:38] LABS: Hematocrit (blood only) 23.5 % (42.0-52.0); Hemoglobin 7.8 g/dl (14.0-18.0); Mean Corpuscular Hemoglobin 30.7 pg (25.0-34.0); Mean Corpuscular Hgb Conc 33.2 g/dL (32.0-36.0); Mean Corpuscular Volume 92.5 fL (80.0-100.0); Mean Platelet Volume 11.4 fL (9.4-12.4); Platelet Count 286 K/uL (130-400); RDW Coefficient of Variation 14.4 % (11.5-14.5); RDW Standard Deviation 47.8 fL (36.4-46.3); Red Blood Count 2.54 M/uL (4.70-6.10); White Blood Count 8.88 K/ul (4.8-10.8)
[2023-02-18 10:05] LABS: BUN Creatinine Ratio 30.3 (10-20); Est GFR (African American) 61.4 ml/min; Magnesium 1.7 mg/dl (1.7-2.4); Phosphorus 2.4 mg/dl (2.5-4.9); Potassium 4.2 mmol/L (3.5-5.1)
[2023-02-18] MEDS: HEPARIN SOD 5,000 UNIT/0.5 ML VIAL SQ SCH (10:42)
[2023-02-18] MEDS: CARBIDOPA/LEVODOPA 25/100MG TAB PEG SCH ×2 (10:44→20:47)
[2023-02-18] MEDS: LANSOPRAZOLE 30 MG SOLTAB PEG SCH (10:46)
[2023-02-18 10:52] LABS: Reticulocyte % 2.1 % (0.5-2.0); Reticulocytes # 0.05 10^6/uL (0.02-0.10)
[2023-02-18 11:27] LABS: INR 1.2 (0.9-1.1); Prothrombin Time 12.2 Seconds (9.0-12.0)
[2023-02-18] MEDS: ASPIRIN 81 MG CHEW PEG SCH (13:28)
[2023-02-18] MEDS: TAMSULOSIN HCL 0.4 MG CAP PO SCH (13:28)
[2023-02-18] MEDS: GLYCOPYRROLATE 0.2 MG/ML VIAL IV PRN (13:34)
[2023-02-18 17:02] LABS: Hematocrit (blood only) 24.4 % (42.0-52.0); Mean Corpuscular Hemoglobin 30.5 pg (25.0-34.0); Mean Corpuscular Hgb Conc 32.8 g/dL (32.0-36.0); Mean Corpuscular Volume 93.1 fL (80.0-100.0); Mean Platelet Volume 12.3 fL (9.4-12.4); Platelet Count 290 K/uL (130-400); RDW Coefficient of Variation 14.4 % (11.5-14.5); RDW Standard Deviation 48.4 fL (36.4-46.3); Red Blood Count 2.62 M/uL (4.70-6.10); White Blood Count 9.98 K/ul (4.8-10.8)
[2023-02-18] MEDS: VANCOMYCIN HCL 1,500 MG in DEXTROSE 5% 500 ML IV SCH (18:37)
[2023-02-18] MEDS: RIFAMPIN PO SCH (20:19)
[2023-02-18] MEDS: ATORVASTATIN 20 MG TAB PEG SCH (21:10)
[2023-02-19] MEDS: TUBE FEEDING WATER FLUSH GT SCH ×6 (00:31→22:13)
[2023-02-19] MEDS: INSULIN ASPART PER UNIT CHARGE SC SCH ×3 (00:31→09:45)
[2023-02-19 07:12] LABS: Hematocrit (blood only) 24.7 % (42.0-52.0); Hemoglobin 8.4 g/dl (14.0-18.0); Mean Corpuscular Volume 91.1 fL (80.0-100.0); Mean Platelet Volume 11.6 fL (9.4-12.4); Platelet Count 289 K/uL (130-400); RDW Coefficient of Variation 14.4 % (11.5-14.5); RDW Standard Deviation 47.7 fL (36.4-46.3); Red Blood Count 2.71 M/uL (4.70-6.10)
[2023-02-19 07:24] LABS: BUN Creatinine Ratio 30.3 (10-20); Creatinine Clr Calc Pharmacy 52.3 ml/min; Est GFR (African American) 63.3 ml/min; Est GFR (Non-African American) 54.6 ml/min; Potassium 4.3 mmol/L (3.5-5.1)
[2023-02-19] MEDS: TAMSULOSIN HCL 0.4 MG CAP PO SCH (08:34)
--- NOTE | 2023-02-19 09:07 | Pharmacy Report ---
Pharmacy PK ABX Note - Date of Service February 19, 2023 - Assessment and Plan Assessment 87 year old M receiving IV Vancomycin and rifampin for treatment of severe sepsis secondary to pneumonia/bacteremia. Day # 17 of antimicrobial therapy. 02/18: ID consulted, 6 weeks of vancomycin/rifampin therapy. Reviewed random level this AM, Predicted to achieve steady state AUC 542mg/L.hr and ss trough 16 mcg/mL. Continue vancomycin 1500mg Q24H. Recheck level in 5-7 days, unless there is significant changes in serum creatinine. 02/04: Level this morning was 9.1 ~ 12 hours after loading dose. Patient appears to be clearing more than expected. Another one time dose was administered this morning. Will obtain another random this evening to help guide dosing given renal function. 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 02/05: Bcx updates to staph species growing in 01/19 bottles. Biofire indicates MRSE. Gram negative bacilli resulted sputum cx. Scr improved again today and Patient with 2 L urine output yesterday. Given scr, but evident clearance, it continues to be difficult to determine a consistent dosing regimen for vancomycin. Will continue to dose conservatively, but with frequent levels to ensure maintaining therapeutic levels. 02/06: BCx from 02/03 (+) Staph spp in 02/19. Biofire (+) MRSE. Sensitivities are still pending. Sputum cx (+) Klebsiella pneumoniae, riggs-sensitive. Zosyn de-escalated to ceftriaxone. SCr continues to down trend with good UOP. Patient has been receiving vanc 750mg ~ q12h and demonstrating some accumulation. Still unable to determine a consistent dosing strategy given rapidly changing renal function. Will continue to dose by levels. 02/07: Blood culture from 02/03 now finalized as 2 separate Coag Negative Staph not lugdunensis, one MRSE and other is pansensitive (likely Staph epi as well). 02/05 blood cultures were updated this morning to no longer be growing anything. Discussed on rounds and provider would like 10-14 days from first set of negative blood cultures for vancomycin (last dose 02/17/23) and 10 days for ceftriaxone (last dose 02/15/23). SCr improved today which was expected secondary to good UOP yesterday. Random level this AM was 16.2 mcg/mL, which is therapeutic. Will continue to dose per levels for now given changing renal function. 02/08: Remains with low grade fevers today, 24 hr Tmax of 37.8oC. Blood cx's from 02/05/23 remain with no growth to date. Random vanc level was 16.1 mcg/mL this AM. SCr improved to 1.9 today. Improvement in SCr lags behind improvement in UOP, and UOP has remained stable for last 48 hours. Therefore, will schedule vancomycin dosing every 24 hours starting this AM. Will order another random lab for tomorrow AM to ensure level remains stable around 16 which is therapeutic. If trough level less than 15, then would consider a dose increase tomorrow. 02/09: Renal function improving to 1.62 today. Stable UOP. Random level this AM (~21hr level) - 14.3mcg/mL; true trough even lower. Given improving renal function, will give an additional 250mg IV X 1 dose this AM and increase the dose to 1gm q24h. Will continue with AM levels given ongoing changes in renal function and SCr lagging behind true renal function. 02/10: Renal function continues to improve, SCr 1.36. Stable UOP. Random level this AM (~ 19hr level)- 13.9mcg/mL predicted to achieve a steady state AUC of 313 which is subtherapeutic. Given renal function approaching baseline, will give a supplemental dose of vanc this AM for total 1500mg and schedule 1500mg q24h. 02/12: Renal function has been stable for the past several days. Random vanc level this morning indicates that current regimen remains appropriate and should achieve target Auc. No changes indicated at this time. 02/15: Random level drawn this AM suggestive that current vancomycin regimen (1500mg Q24H) remains appropriate to target optimal AUC; low probability of nephrotoxicity at 11%. Renal labs otherwise stable. Plan to continue through 02/17 dose, per Dr Gutierrez. Plan Vancomycin * Random Level this morning was 22.3 mcg/ml * Maintenance dose: Continue 1500mg IV every 24 hours * Predicted to achieve steady state AUC 542mg/L.hr and ss trough 16 mcg/mL. * No further levels have been ordered at this time. Recheck level in 5-7 days, unless there is significant changes in renal function. Pharmacy will continue to follow and will adjust dose/frequency as necessary. Thank you.
[2023-02-19] MEDS: ASPIRIN 81 MG CHEW PEG SCH (09:40)
[2023-02-19] MEDS: CARBIDOPA/LEVODOPA 25/100MG TAB PEG SCH ×2 (09:43→19:41)
[2023-02-19] MEDS: LANSOPRAZOLE 30 MG SOLTAB PEG SCH (09:44)
[2023-02-19] MEDS ORDERED: TERAZOSIN HCL 1 MG CAP PO ONE (15:43)
[2023-02-19] MEDS: RIFAMPIN PO SCH (18:30)
--- NOTE | 2023-02-19 19:06 | Hospitalist Progress Note ---
Date of Service February 19, 2023 Assessment & Plan (1) Septic shock: (2) Acute hypernatremia: (3) Acute renal failure (ARF): (4) Goals of care, counseling/discussion: (5) Anemia: (6) Wounds and injuries: Plan Patient is an 87 yr male presents from [facility] with septic shock, renal failure. Revoked hospice for ED admission per request who was traveling from [facility]. Pt was intubated. Admitting team confirmed NO CPR, defibrillation, cardioversion in the event of cardiac arrest. Continue pressors with hope of arriving from [facility]. Grave prognosis. Anemia: worsening since admission No active bleeding Hb16.5 on admission-->12.5 after sepsis resuscitation. 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 Pansensitive Klebsiella in sputum Liliana in sputum likely a contaminant High risk for aspiration pneumonia. Known recent month long admission with urosepsis; was recently on Hospice Repeat blood cultures were negative. Initially admitted on Vanc/Zosyn 02/03 Plan will be total 6 weeks of Vancomycin with rifampin added from 02/16/23 with surveillance cultures (2 sets from the periphery) 5-7 days post completion of abx therapy. --ECHO: Mild concentric LVH. Septal motion is abnormal, consistent with right ventricular pacemaker activation, left ventricle systolic function is low norm al, EF 50 to 55%, bioprosthetic aortic valve, mild mitral regurgitation, grade 2 diastolic dysfunction, mild tricuspid regurgitation --Urine Culture: Noncontributory (H/O chronic Ferris, recent h/o of UTI) -- Weaned off of pressors and extubated 02/06 Continue vancomycin/Rocephin and await ID recommendations for abx Palliative care following Patient's POA now agreeing to no escalation of care (pressors, CPR, intubation) She declines COURT. However, POA would like PEG feeds. PEG placed 02/14-tolerating feeds without residual Remains high risk for aspiration [facility] cannot accept him back with PEG in place Case management is assisting with new disposition option-->to centre care 02/19: PEG feedings held with vomiting today.. Cont with free water flushes and discuss with case finishing machine adjuster regarding options for bolus feedings. Acute hypoxic respiratory failure Secondary to left lower lobe pneumonia likely due to aspiration Extubated on 02/06/2023 and now oxygenating 99% on 2LPM via NC Oxygenating well on room air. Acute metabolic encephalopathy/known Dementia Secondary to above, in setting of Lewy body dementia and Hypernatremia (Na was 164 on admission 02/03) CT head: No significant change compared to the prior study. No acute intracranial abnormality. Reorient frequently Monitor sodium levels More alert, awake but remains non verbal --appears to be his baseline per . Severe protein calorie malnutrition Dysphagia PEG placed and tolerating TFs Keep HOB at 30 degrees/aspiration precautions. Plan as above to hold TFs with new vomiting and discuss bolus feeds with RD. Elev. troponin Troponin level 400's on admission - likely type II AK, secondary to above No further workup at this time. Acute Hypernatremia: Na: 164>>155>152>146>142 Nephrology assisted with correction with dextrose infusion Continue free water flushes between tube feeds Acute Renal Failure: Creatinine 5.93; Prior provider confirmed with patient's , no dialysis -[facility] due to dehydration, ATN -Cr 3.71>2.35> 1.91>1.6>1.2 Monitor renal function H/O Esophageal dysmotility H/O dementia Goals of care addressed with palliative team Speech therapy involved in his care this admission. Chronic Ferris/urinary retention - Ferris was replaced this admission. would like to try a TOV. Ferris removed and he continues with clean intermittent catheterization Would write for three times daily on discharge and [facility] urology is aware of his need for follow-up. would like to consider TURP or other prostate surgery in the future For now, will cont with alpha-ban. The only one that will go through the PEG is terazosin This capsule has to be melted in warm water for 15 minutes and then given as a solution through the PEG. This was discussed with the RN today at bedside. WOUNDS: Multiple sites of ulceration with necrosis There are multiple pressure sites for skin breakdown This was a possible source for his sepsis this admission Wound care nurse consulted. Cont keeping him off these sites. 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 Aortic stenosis S/P Bioprosthetic AVR TAA S/P surgery PFO as per records SSS sp PPM not on anticoagulation secondary to bleeding/fall risk H/O TIA Continue home medications DVT Px: Heparin SQ Code Status DNI/DNR Poor prognosis, plans to DC to [place] care I spent a total [id number] coordinating, documenting, and providing care for this patient excluding time spent in the performance of separately billed services DO Linda Solis Hospitalist Admission and Anticipated Discharge Date Admission Date: February 03, 2023 Subjective 87 yo M with dementia presents with septic shock Nonverbal today but appears more awake While rolling him to evaluate all his skin ulcers, he vomited a couple of times off the side of the bed No respiratory distress but tube feeds were stopped. Went through multiple things with at bedside, all questions answered . Review of Systems Review of Systems: ROS could not be performed 2/2 dementia. Physical Exam Physical Exam: CONSTITUTIONAL: WNWD, vitals as above, generally ill appearing, elderly, deconditioned, NAD EYES: normal conjunctivae, no scleral icterus ENT: external ear and nose normal, NECK: trachea midline RESPIRATORY: clear to auscultation bilaterally, no crackles, rales or wheezes, normal respiratory effort (limited exam as patient not cooperative) CARDIOVASCULAR: regular rate and rhythm, S1 and 2 heard without murmurs, gallops or rubs, no JVD, no peripheral edema. CHEST: +pacemaker present. GASTROINTESTINAL: (exam very limited as patient is in position and resists repositioning) soft, nontender, +PEG tube and abdominal binder, no guarding MUSCULOSKELETAL: generalized weakness with stiffened arms and legs and resistance to repositioning, head is normocephalic and atraumatic, neck supple, normal palpation of chest wall without tenderness SKIN: warm and dry, no rashes NEUROLOGIC: normal cognition, no tremor PSYCHIATRIC: alert cooperative and oriented to none. Results & Data Results & Data Vital Signs (Past 12 Hours) Vital Signs Temp Pulse Resp BP Pulse Ox O2 Del Method O2 Flow Rate 02/19/23 15:49 37.3 C 74 18 120/70 99 Room Air 02/19/23 08:41 36.9 C 59 L 18 107/63 94 Nasal Cannula 2 02/19/23 08:00 Nasal Cannula 2 Laboratory Results Short CBC 02/19/23 Range/Units 06:49 WBC 9.70 (4.8-10.8) K/ul Hgb 8.4 L (14.0-18.0) g/dl Hct 24.7 L (42.0-52.0) % Plt Count 289 (130-400) K/uL BMP 02/19/23 06:49 Sodium 136 Potassium 4.3 Chloride 102 Carbon Dioxide 30 BUN 36 H Creatinine 1.19 Glucose 115 H Calcium 7.0 L Medications Administered Current Inpatient Medications Acetaminophen (Acetaminophen 325 Mg Tab) 650 mg PEG Q4H PRN PRN Reason: Pain or Fever Stop: 03/13/23 10:34 Aspirin (Aspirin 81 Mg Chew) 81 mg PEG QAM FERNIE Stop: 03/19/23 08:59 Last Admin: 02/19/23 09:40 Dose: 81 mg Atorvastatin Calcium (Atorvastatin 20 Mg Tab) 20 mg PEG QPM FERNIE Stop: 03/18/23 20:59 Last Admin: 02/18/23 21:10 Dose: 20 mg Carbidopa/Levodopa (Carbidopa/Levodopa 25/100mg Tab) 1 tab PEG BID FERNIE Stop: 03/18/23 20:59 Last Admin: 02/19/23 09:43 Dose: 1 tab Donepezil HCl (Donepezil Hcl 5 Mg Tab) 5 mg PO QAM FERNIE Stop: 03/13/23 08:59 Last Admin: 02/17/23 08:21 Dose: 5 mg Enteral Nutritional Formula (Fibersource Hn 1.2 Jeremy 1000 Ml Bag) 1,000 ml GT UD FERNIE; Protocol Stop: 03/18/23 17:29 Glucagon (Glucagon For Inj 1 Mg Vial) 1 mg SQ UD PRN; Protocol PRN Reason: Hypoglycemia Protocol Stop: 03/06/23 02:57 Glycopyrrolate (Glycopyrrolate 0.2 Mg/Ml Vial) 0.2 mg IV Q3H PRN PRN Reason: secretions Stop: 03/05/23 16:47 Last Admin: 02/18/23 13:34 Dose: 0.2 mg Heparin Sodium (Beef Lung) (Heparin 10 Unit/Ml 5 Ml Flush) 5 ml FLUSH PRN PRN PRN Reason: Flush Stop: 03/08/23 16:07 Last Admin: 02/06/23 21:35 Dose: 5 ml Vancomycin HCl 1,500 mg/ (Dextrose) 530 mls @ 200 mls/hr IV Q24H FERNIE; Protocol Stop: 03/17/23 18:59 Last Infusion: 02/18/23 21:23 Dose: Infused Lansoprazole (Lansoprazole 30 Mg Soltab) 30 mg PEG QAM FERNIE Stop: 03/19/23 08:59 Last Admin: 02/19/23 09:44 Dose: 30 mg Miscellaneous Information (Vancomycin Consult Active) 1 each N/A UD PRN PRN Reason: Consult Stop: 03/20/23 06:47 Polyethylene Glycol (Polyethylene (Miralax) 17 Gm Pack) 17 gm PO DAILY PRN PRN Reason: Constipation Stop: 03/05/23 15:43 Rifampin (Rifampin 600mg/60ml Udp) 600 mg PO Q24H FERNIE Stop: 03/02/23 17:59 Last Admin: 02/19/23 18:30 Dose: 600 mg Sterile Water (Tube Feeding Water Flush) 150 ml GT Q4H FERNIE Stop: 03/12/23 16:14 Last Admin: 02/19/23 16:40 Dose: 150 ml Terazosin HCl (Terazosin Hcl 1 Mg Cap) 2 mg PO HS FERNIE Stop: 03/22/23 20:59
[2023-02-19] MEDS: VANCOMYCIN HCL 1,500 MG in DEXTROSE 5% 500 ML IV SCH (19:59)
[2023-02-19] MEDS: ATORVASTATIN 20 MG TAB PEG SCH (22:16)
--- NOTE | 2023-02-19 22:19 | XRay Report ---
SINGLE VIEW CHEST CLINICAL HISTORY: Aspiration FINDINGS: 2 AP, portable, upright chest radiographs are compared to study dated 02/17/2023. Correlation is made with chest CT dated 08/27/2021. The patient is status post midline sternotomy. A 2-lead card iac pacemaker is unchanged in position. The heart is enlarged noting atherosclerotic calcification of the thoracic aorta. Pulmonary vascular congestion. There are patchy airspace opacities in the left m id to lower lung. Scarring/atelectasis is noted at the right lung base. No large pleural effusion or pneumothorax is seen. The skeletal structures are osteopenic. There are chronic/healed bilateral rib fractures. A gastrostomy tube projects over the left upper quadrant. IMPRESSION: 1. Cardiomegaly and cardiac pacemaker with pulmonary vascular congestion. 2. Patchy airspace opacities are seen in the left mid to lower lung. Correlate clinically for evidenc e of pneumonia/aspiration pneumonitis. Radiographic follow-up to resolution is recommended. ACT 112: Negative or not required by law. Electronically signed by: Rancho Roberts M.D. 02/19/2023 10:18 PM
[2023-02-19] MEDS ORDERED: ALBUT/IPRATROP 3MG/0.5MG NEB 3 ML VIAL ONE (23:19)
[2023-02-19] MEDS: ALBUT/IPRATROP 3MG/0.5MG NEB 3 ML VIAL NEB PRN (23:20)
[2023-02-19] MEDS ORDERED: FUROSEMIDE INJ 20 MG/2 ML VIAL IV ONE (23:30)
[2023-02-19] MEDS: AMPICILLIN/SULBACTAM SOD 1,500 MG in 0.9 % SODIUM CHLORIDE 100 ML IV SCH (23:41)
[2023-02-20] MEDS: TUBE FEEDING WATER FLUSH GT SCH ×4 (02:40→11:25)
[2023-02-20] MEDS ORDERED: OPTIRAY 350 100ml IV ONE (04:05)
[2023-02-20 04:44] LABS: Basophils # (auto) 0.04 K/uL (0-0.2); Basophils % (auto) 0.2 %; Hematocrit (blood only) 26.5 % (42.0-52.0); Hemoglobin 8.7 g/dl (14.0-18.0); Immature Granulocytes % (auto) 0.6 %; Lymphocytes # (auto) 0.73 K/uL (1.2-3.4); Lymphocytes % (auto) 4.2 %; Mean Corpuscular Hemoglobin 30.9 pg (25.0-34.0); Mean Corpuscular Hgb Conc 32.8 g/dL (32.0-36.0); Mean Platelet Volume 11.3 fL (9.4-12.4); Monocytes # (auto) 1.37 K/uL (0.11-0.59); Monocytes % (auto) 7.9 %; Neutrophils # (auto) 15.06 K/uL (1.40-6.50); Neutrophils % (auto) 87.1 %; Platelet Count 330 K/uL (130-400); RDW Coefficient of Variation 14.4 % (11.5-14.5); RDW Standard Deviation 48.4 fL (36.4-46.3); Red Blood Count 2.82 M/uL (4.70-6.10)
[2023-02-20 05:01] LABS: BUN Creatinine Ratio 27.1 (10-20); Creatinine Clr Calc Pharmacy 35.1 ml/min; Est GFR (African American) 39.2 ml/min; Est GFR (Non-African American) 33.8 ml/min; Magnesium 1.8 mg/dl (1.7-2.4); Potassium 4.8 mmol/L (3.5-5.1)
[2023-02-20] MEDS: AMPICILLIN/SULBACTAM SOD 1,500 MG in 0.9 % SODIUM CHLORIDE 100 ML IV SCH ×4 (06:59→23:31)
--- NOTE | 2023-02-20 07:24 | CT Scan Report ---
CT OF THE ABDOMEN AND PELVIS WITH CONTRAST CLINICAL HISTORY: Persistent nausea and vomiting, dark emesis COMPARISON STUDY: CT of the abdomen and pelvis August 27, 2021 8 KUB February 12, 2023. TECHNIQUE: Following IV administration of 83 mL of Optiray, axial images of the abdomen and pelvis we re obtained from the lung bases to the proximal femurs. Images were reviewed in the axial, sagittal, and coronal planes. IV contrast was administered without complication. Automated exposure control wa s utilized for the study. A dose lowering technique was utilized adhering to the principles of ALARA . CT DOSE: 1281.20 mGy.cm FINDINGS: Pacer leads are partially imaged. Trace left pleural effusion. Note is made of dependent co nsolidation within the posterior basal segments of the lower lobes. There are additional scattered ai rspace opacities within the lower lungs. Exam is compromised by motion artifact. There is anasarca. N o pneumatosis, free air or portal venous gas is present. A gastrostomy tube is in place. There is dilcia pected mild distal esophageal wall thickening. There is no evidence for a bowel obstruction. The live r, spleen, adrenal glands, left kidney and pancreas are unremarkable. There are several suspected rig ht renal cyst. There is no hydronephrosis. The prostate is enlarged, measuring 6.8 cm in transverse d imension. Bladder wall thickening is probably chronic. A large amount stool within the sigmoid colon and rectum is present. There is no lymphadenopathy. No fluid collection is present. A 3.3 cm infraren al abdominal aortic aneurysm is present. An old T12 compression deformity is present. There are no ac [place] fractures. IMPRESSION: 1. No evidence for a bowel obstruction. Exam mildly compromised by motion artifact. 2. Large amount of stool within the sigmoid colon and rectum. 3. Bilateral lower lobe airspace opacities. Although the left lower lobe opacity could reflect atelec tasis/round atelectasis, consolidation within the right lower lobe and lingula favor an infectious pr ocess such as pneumonia or aspiration pneumonitis. 4. Distal esophageal wall thickening which may reflect esophagitis. 5. Anasarca. 6. 3.3 cm infrarenal abdominal aortic aneurysm. ACT 112: Negative or not required by law. Electronically signed by: Nolberto Alexandre M.D. 02/20/2023 7:22 AM
[2023-02-20] MEDS: ASPIRIN 81 MG CHEW PEG SCH (07:42)
[2023-02-20] MEDS: CARBIDOPA/LEVODOPA 25/100MG TAB PEG SCH ×2 (07:42→20:13)
[2023-02-20] MEDS: LANSOPRAZOLE 30 MG SOLTAB PEG SCH (07:42)
--- NOTE | 2023-02-20 07:52 | Communication Note ---
Date of Service: February 20, 2023 last night patient had n/v and his oxygen requirements increased. Cxr possible aspiration pneumonitis. Started on unasyn and gave a dose of Lasix and ordered nebs prn. Again he vomited and nursing staff thought dark colored vomits. Ordered Hemoccult of gastric contents if positive can consult GI. CT abd/pelvis ordered which showed oesopagitis. ordred iv protonix bid. HB stable.Close monitor.
[2023-02-20] MEDS: PANTOprazole 40 MG in SYRINGE 0 ML IV SCH ×2 (08:28→20:20)
--- NOTE | 2023-02-20 13:54 | Pharmacy Report ---
Pharmacy PK ABX Note - Date of Service February 20, 2023 - Assessment and Plan Assessment 87 year old M receiving IV Vancomycin and rifampin for treatment of severe sepsis secondary to pneumonia/bacteremia. Day # 18 of antimicrobial therapy. 02/20: SCr 1.77 mg/dL this morning (significant elevation from yesterday 1.19 mg/dL). Significant increase in WBC today as well (9 -> 17.3) Originally did not plan a level for today, but will obtain additional random level in light of these findings. Chest x-ray shows possible aspiration pneumonitis - Unasyn initiated overnight. 02/18: ID consulted, 6 weeks of vancomycin/rifampin therapy. Reviewed random level this AM, Predicted to achieve steady state AUC 542mg/L.hr and ss trough 16 mcg/mL. Continue vancomycin 1500mg Q24H. Recheck level in 5-7 days, unless there is significant changes in serum creatinine. 02/04: Level this morning was 9.1 ~ 12 hours after loading dose. Patient appears to be clearing more than expected. Another one time dose was administered this morning. Will obtain another random this evening to help guide dosing given renal function. 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 02/05: Bcx updates to staph species growing in / bottles. Biofire indicates MRSE. Gram negative bacilli resulted sputum cx. Scr improved again today and Patient with 2 L urine output yesterday. Given scr, but evident clearance, it continues to be difficult to determine a consistent dosing regimen for vancomycin. Will continue to dose conservatively, but with frequent levels to ensure maintaining therapeutic levels. 02/06: BCx from 02/03 (+) Staph spp in /. Biofire (+) MRSE. Sensitivities are still pending. Sputum cx (+) Klebsiella pneumoniae, riggs-sensitive. Zosyn de- escalated to ceftriaxone. SCr continues to down trend with good UOP. Patient has been receiving vanc 750mg ~ q12h and demonstrating some accumulation. Still unable to determine a consistent dosing strategy given rapidly changing renal function. Will continue to dose by levels. 02/07: Blood culture from 02/03 now finalized as 2 separate Coag Negative Staph not lugdunensis, one MRSE and other is pansensitive (likely Staph epi as well). 02/05 blood cultures were updated this morning to no longer be growing anything. Discussed on rounds and provider would like 10-14 days from first set of negative blood cultures for vancomycin (last dose 02/17/23) and 10 days for ceftriaxone (last dose 02/15/23). SCr improved today which was expected secondary to good UOP yesterday. Random level this AM was 16.2 mcg/mL, which is therapeutic. Will continue to dose per levels for now given changing renal function. 02/08: Remains with low grade fevers today, 24 hr Tmax of 37.8oC. Blood cx's from 02/05/23 remain with no growth to date. Random vanc level was 16.1 mcg/mL this AM. SCr improved to 1.9 today. Improvement in SCr lags behind improvement in UOP, and UOP has remained stable for last 48 hours. Therefore, will schedule vancomycin dosing every 24 hours starting this AM. Will order another random lab for tomorrow AM to ensure level remains stable around 16 which is therapeutic. If trough level less than 15, then would consider a dose increase tomorrow. 02/09: Renal function improving to 1.62 today. Stable UOP. Random level this AM (~21hr level) - 14.3mcg/mL; true trough even lower. Given improving renal function, will give an additional 250mg IV X 1 dose this AM and increase the dose to 1gm q24h. Will continue with AM levels given ongoing changes in renal function and SCr lagging behind true renal function. 02/10: Renal function continues to improve, SCr 1.36. Stable UOP. Random level this AM (~ 19hr level)- 13.9mcg/mL predicted to achieve a steady state AUC of 313 which is subtherapeutic. Given renal function approaching baseline, will give a supplemental dose of vanc this AM for total 1500mg and schedule 1500mg q24h. 02/12: Renal function has been stable for the past several days. Random vanc level this morning indicates that current regimen remains appropriate and should achieve target Auc. No changes indicated at this time. 02/15: Random level drawn this AM suggestive that current vancomycin regimen (1500mg Q24H) remains appropriate to target optimal AUC; low probability of nephrotoxicity at 11%. Renal labs otherwise stable. Plan to continue through 02/17 dose, per Dr Gutierrez. Plan Vancomycin * Current regimen: 1500 mg IV every 24 hours * Random level obtained 02/20/23 resulted as 25.1 mcg/mL. This is predicted to achieve supratherapeutic AUC/ABI of 400-600 mg/L.hr * Predicted AUC at steady state: 725 mg/L.hr * Change to 1000 mg IV every 24 hours starting at 2200 tonight * Will repeat level in the next 48 hours or sooner pending renal function tomorrow morning Unasyn * 1.5 g IV q6h - appropriate for indication/renal function Pharmacy will continue to follow and will adjust dose/frequency as necessary. Thank you.
--- NOTE | 2023-02-20 15:49 | Nephrology Progress Note ---
Date of Service February 20, 2023 Assessment & Plan (1) Acute renal failure (ARF): Plan: earlier this admission he had prerenal HERSON; now with recurrent HERSON w/ creatinine going from 1 > 1.7 in 24 hrs; not oliguric but struggling w/ retention. despite CT report/findings, PE not c/w anasarca. calcium likely ok given low albumin; other chemistries acceptable prior to admission baseline creatinine 0.9. -hold vancomycin for tonight and dose by level -avoid further IV contrast for now unless life/limb saving -would not give lasix at this time unless respiratory status worsening -would not give IV fluids at this time -agree w/ resuming tube feeds, free water flushes > latter at 40 mL q 4hr >>treat constipation -avoid NSAID >ordered liver enzymes for am >continue to discuss goals of care >continue to bladder scan/ straight cath per routine care coordinated w/ Dr Manzanares Admission and Anticipated Discharge Date Admission Date: February 03, [address] Manzanares to reevaluate pt d/t worsening creatinine and anasarca. is at bedside - tells me he had emesis yesterday at 1700 and again after taking pills at 1800 w/ emesis of pills as well. also 900 mL retained urine this am on bladder scan and str cat'd; then 400 mL at 11 AM. Review of Systems Review of Systems: Unobtainable due to reduced consciousness Physical Exam Constitutional: well developed, + thin, + frail appearing and + lethargic; no acute distress ENMT: Ears: no external ear abnormality Nose: no external nose abnormality Mouth: + dry oral mucous membranes and + poor dentition Neck: no nuchal rigidity Respiratory: normal respiratory effort Auscultation: + diminished lung sounds Cardiovascular: RRR, no murmur, no edema Gastrointestinal (Abdomen): Inspection/Auscultation: normal bowel sounds Percussion/Palpation: abdomen soft; abdomen nontender Musculoskeletal: Extremities: + abnormal strength, + abnormal muscle tone (contractures) and + muscle atrophy Skin: no rashes, warm and dry Results & Data Vital Signs (Past 12 Hours) Vital Signs Temp Pulse Resp BP Pulse Ox O2 Del Method O2 Flow Rate 02/20/23 15:29 37.2 C 84 20 136/66 90 Oxymask 10 02/20/23 08:45 Oxymask 11 02/20/23 07:30 36.5 C 88 20 97/57 L 90 Oxymask 11 Laboratory Results 02/20/23 04:13 02/20/23 04:13
[2023-02-20] MEDS: TUBE FEEDING WATER FLUSH PEG SCH ×3 (17:19→23:31)
[2023-02-20] MEDS: RIFAMPIN PO SCH (17:20)
[2023-02-20] MEDS: NUTREN LIQD 2.0 1,000 ML BAG PEG SCH (17:29)
--- NOTE | 2023-02-20 18:07 | Hospitalist Progress Note ---
Date of Service February 20, 2023 Assessment & Plan (1) Septic shock: (2) Acute hypernatremia: (3) Acute renal failure (ARF): (4) Goals of care, counseling/discussion: (5) Anemia: (6) Wounds and injuries: Plan Patient is an 87 yr male presents from [facility] with septic shock, renal failure. Revoked hospice for ED admission per request who was traveling from [facility]. Pt was intubated. Admitting team confirmed NO CPR, defibrillation, cardioversion in the event of cardiac arrest. Palliative care evaled. He was managed for the following: Anemia: Hemoglobin has stabilized around 8.5, no active bleeding. PBS without Schistocytes, normal reticulocyte count, hemolysis less likely. Iron deficiency present. Poor nutrition does not help. Cont iron supplementation and proper nutrition. 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 Weaned off pressors and extubated 02/06. Pansensitive Klebsiella in sputum. Liliana in sputum likely a contaminant Urine Culture: Noncontributory (H/O chronic Villasenor, recent h/o of UTI) ECHO: EF 50 to 55%, bioprosthetic aortic valve, mild mitral regurgitation, grade 2 diastolic dysfunction, mild tricuspid regurgitation High risk for aspiration pneumonia. Known recent month long admission with urosepsis; was recently on Hospice Repeat blood cultures were negative. Initially admitted on Vanc/Zosyn 02/03 Plan will be total 6 weeks of Vancomycin with rifampin added from 02/16/23 with surveillance cultures (2 sets from the periphery) 5-7 days post completion of abx therapy. Severe protein calorie malnutrition H/O Esophageal dysmotility Dysphagia: Speech therapy involved in his care this admission. Palliative care evaled, Patient's POA now agreeing to no escalation of care (pressors, CPR, intubation). She declines COURT. However, POA would like PEG feeds. PEG placed 02/14-tolerating feeds without residual Remains high risk for aspiration [facility] cannot accept him back with PEG in place PEG feed held due to vomiting, resume peg feed at low rate, and upto 50% of goal for now. Will use pr bowel regimen to help w/ constipation noted in CTAP. Keep HOB at 30 degrees/aspiration precautions. Acute hypoxic respiratory failure Secondary to left lower lobe pneumonia likely due to aspiration Was weaned down to 2L NC O2, had vomiting and aspiration event 02/19, TF was held, and unasyn added 02/20. Now on 11 L O2 via OM, wean down O2 as james. Acute metabolic encephalopathy/known Dementia Secondary to above, in setting of Lewy body dementia and Hypernatremia (Na was 164 on admission 02/03) CT head: No significant change compared to the prior study. No acute intracranial abnormality. Reorient frequently Monitor sodium levels More alert, awake but remains non verbal --appears to be his baseline per . Elev. troponin: Troponin level 400's on admission - likely type II NM, secondary to above. No further workup at this time. Acute Hypernatremia: resolved. Acute Renal Failure: present at admission which was resolved. Had another bump in Cr on 02/20, d/w nephro - no ivf/avoid nephrotoxics/hold vanc until acceptable trough level achieved. appreciate recs. Pt's doesn't want villasenor cath, c/w intermittent st cath to avoid obstruction. Chronic Villasenor/urinary retention: Villasenor was replaced this admission. doesn't want villasenor, TOV done, currently on intermittent cath- would write for three times daily on discharge and [facility] is aware of his need for follow-up. would like to consider TURP or other prostate surgery in the future For now, will cont with alpha-ban. The only one that will go through the PEG is terazosin This capsule has to be melted in warm water for 15 minutes and then given as a solution through the PEG. WOUNDS: Multiple sites of ulceration with necrosis There are multiple pressure sites for skin breakdown This was a possible source for his sepsis this admission Wound care nurse consulted. Cont keeping him off these sites. 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 Admission and Anticipated Discharge Date Admission Date: February 03, 2023 Subjective Patient seen and examined at bedside as a follow-up of septic shock with staph bacteremia, acute hypoxic respiratory failure, acute metabolic encephalo rosa/known dementia, severe protein calorie malnutrition and many other issues. Patient is very weak and ill and has very poor prognosis. Patient was lying on bed, on 11 L oxygen via oxygen mask. Patient's at bedside who was explaining things that happened yesterday in detail and at length. Patient's current condition was discussed with the patient and I expressed that the patient does not have a good prognosis. Pt had emesis yesterday evening, and worsening of resp status. CTAP revealed likely RLL asp pna. Pt was started on unasyn. D/w Nephro, diffuse crackles on exam, CTAP w anasarca and pt w/ HERSON, asked nephro re-eval, no ivf for now. Will encourage enteral nutrition, at slower rate. Physical Exam Physical Exam: GENERAL: lethargic, doesn't communicate back, chronically ill appearing/sick/weak/frail. HEENT: No pallor, no icterus. Pupils equal, round and reactive to light. Oral mucosa moist. NECK: No JVD, no neck masses. HEART: S1 and S2 heard. Regular rate and rhythm. No murmur, no gallop. RESPIRATORY SYSTEM: Normal AP diameter. No accessory muscle use. No wheezing, diffuse b/l crackles. ABDOMEN: Soft, bowel sounds present, nontender, no distention. CENTRAL NERVOUS SYSTEM: No facial droop. not able to cooperate for exam Presser point ulcers noted, pt in contracted position w/ stiffened extremities. EXTREMITIES: No edema, no erythema seen. Results & Data Results & Data Vital Signs (Past 12 Hours) Vital Signs Temp Pulse Resp BP Pulse Ox O2 Del Method O2 Flow Rate 02/20/23 16:44 Oxymask 11 02/20/23 15:29 37.2 C 84 20 136/66 90 Oxymask 10 02/20/23 08:45 Oxymask 11 02/20/23 07:30 36.5 C 88 20 97/57 L 90 Oxymask 11
[2023-02-20] MEDS ORDERED: POLYETHYLENE (MIRALAX) 17 GM PACK PEG PRN (18:09)
[2023-02-20] MEDS: bisacodyL 10 MG SUPP PR SCH (20:12)
[2023-02-20] MEDS: ATORVASTATIN 20 MG TAB PEG SCH (20:13)
[2023-02-20] MEDS: TERAZOSIN HCL 1 MG CAP PO SCH (20:14)
[2023-02-20] MEDS ORDERED: VANCOMYCIN HCL 1,000 MG in DEXTROSE 5% 250 ML IV SCH (22:00)
[2023-02-20] MEDS: ACETAMINOPHEN 325 MG TAB PEG PRN (23:32)
[2023-02-21] MEDS: TUBE FEEDING WATER FLUSH PEG SCH ×6 (03:53→21:44)
[2023-02-21] MEDS: AMPICILLIN/SULBACTAM SOD 1,500 MG in 0.9 % SODIUM CHLORIDE 100 ML IV SCH ×4 (05:13→23:47)
[2023-02-21 07:10] LABS: Hematocrit (blood only) 24.5 % (42.0-52.0); Mean Corpuscular Hemoglobin 30.2 pg (25.0-34.0); Mean Corpuscular Hgb Conc 32.7 g/dL (32.0-36.0); Mean Corpuscular Volume 92.5 fL (80.0-100.0); Mean Platelet Volume 11.4 fL (9.4-12.4); Platelet Count 279 K/uL (130-400); RDW Coefficient of Variation 14.4 % (11.5-14.5); RDW Standard Deviation 47.8 fL (36.4-46.3); Red Blood Count 2.65 M/uL (4.70-6.10); White Blood Count 13.19 K/ul (4.8-10.8)
[2023-02-21 07:20] LABS: BUN Creatinine Ratio 27.8 (10-20); Calcium 7.2 mg/dl (8.6-10.3); Creatinine Clr Calc Pharmacy 33.3 ml/min; Est GFR (African American) 36.6 ml/min; Est GFR (Non-African American) 31.6 ml/min; Phosphorus 3.8 mg/dl (2.5-4.9); Potassium 4.6 mmol/L (3.5-5.1)
[2023-02-21] MEDS: CARBIDOPA/LEVODOPA 25/100MG TAB PEG SCH ×2 (08:47→21:55)
[2023-02-21] MEDS: bisacodyL 10 MG SUPP PR SCH ×2 (08:47→09:32)
[2023-02-21] MEDS: LANSOPRAZOLE 30 MG SOLTAB PEG SCH (08:47)
--- NOTE | 2023-02-21 09:12 | Pharmacy Report ---
Pharmacy PK ABX Note - Date of Service February 21, 2023 - Assessment and Plan Assessment 87 year old M receiving IV Vancomycin and rifampin for treatment of severe sepsis secondary to pneumonia/bacteremia. Day # 18 of antimicrobial therapy. 02/21: Patient in HERSON, SCr continues to worsen, 1.87 mg/dL today. Vancomycin was held on 02/20. Last dose was administered 02/19 @ 1999. Random level this morning resulted at 18 mcg/mL. Will administer one time doses based on random levels until HERSON resolves. Discussed plan with Hospitalist. 02/20: SCr 1.77 mg/dL this morning (significant elevation from yesterday 1.19 mg/dL). Significant increase in WBC today as well (9 -> 17.3) Originally did not plan a level for today, but will obtain additional random level in light of these findings. Chest x-ray shows possible aspiration pneumonitis - Unasyn initiated overnight. 02/18: ID consulted, 6 weeks of vancomycin/rifampin therapy. Reviewed random level this AM, Predicted to achieve steady state AUC 542mg/L.hr and ss trough 16 mcg/mL. Continue vancomycin 1500mg Q24H. Recheck level in 5-7 days, unless there is significant changes in serum creatinine. 02/15: Random level drawn this AM suggestive that current vancomycin regimen (1500mg Q24H) remains appropriate to target optimal AUC; low probability of nephrotoxicity at 11%. Renal labs otherwise stable. Plan to continue through 02/17 dose, per Dr Gutierrez. Refer to previous notes for additional background. Plan Vancomycin * Continue to hold vancomycin. * Random level ordered for 02/21 @ 1999 * Per [facility], vanc level predicted to be ~ 13 mcg/mL at this time Rifampin * 600 mg PO daily Unasyn * 1.5 g IV q6h - appropriate for indication/renal function Pharmacy will continue to follow and will adjust dose/frequency as necessary. Thank you.
--- NOTE | 2023-02-21 09:12 | Nephrology Progress Note ---
Date of Service February 21, 2023 Assessment & Plan (1) Acute renal failure (ARF): Plan: earlier this admission he had prerenal HERSON; now with recurrent HERSON w/ creatinine going from 1 > 1.7 in 24 hrs and up to 1.9 today; not oliguric but struggling w/ retention and now w/ Ferris replaced. despite CT report/findings, PE not c/w anasarca. calcium likely ok given low albumin; other chemistries acceptable prior to admission baseline creatinine 0.9. >>if vancomycin to be continued, would dose by level -avoid further IV contrast for now unless life/limb saving -would not give lasix at this time unless respiratory status worsening -would not give IV fluids at this time -agree w/ resuming tube feeds, free water flushes > reasonable plans above re TF concentration and FWF amounts >>treat constipation -avoid NSAID >ordered liver enzymes for am >continue to discuss goals of care >likely fever is from PNA but would have low threshold for blood cultures >if needing more 02, can consider low dose lasix IV but would try to avoid Admission and Anticipated Discharge Date Admission Date: February 03, 2023 Subjective febrile overnight to 38.7; pt unable to give hx/ROS; diet Luis considering more concentrated tube feed formula which would require increased volume/uptitration gradually of free water flush amount Review of Systems Review of Systems: Unobtainable due to cognitive status Physical Exam Constitutional: well developed, + thin, + frail appearing and + lethargic; no acute distress ENMT: Ears: no external ear abnormality Nose: no external nose abnormality Mouth: + dry oral mucous membranes and + poor dentition Neck: no nuchal rigidity Respiratory: normal respiratory effort; no cough Auscultation: + diminished lung sounds (anterior exam) Cardiovascular: RRR, no murmur, no edema Gastrointestinal (Abdomen): Inspection/Auscultation: normal bowel sounds Percussion/Palpation: abdomen soft (PEG present); abdomen nontender Musculoskeletal: Extremities: + abnormal strength, + abnormal muscle tone (contractures) and + muscle atrophy Skin: no rashes, warm and dry Results & Data Vital Signs (Past 12 Hours) Vital Signs Temp Pulse Resp BP Pulse Ox O2 Del Method O2 Flow Rate 02/21/23 08:32 37.6 C H 78 24 113/69 94 Oxymask 12 02/21/23 07:21 37.5 C 82 22 116/61 92 Oxymask 11 02/21/23 01:02 37 C 02/21/23 00:08 38.2 C H 02/20/23 23:08 38.7 C H 76 20 121/62 98 Oxymask 10 Laboratory Results 02/21/23 06:41 02/21/23 06:41 Diagnostic Findings cxr 1. Cardiomegaly and cardiac pacemaker with pulmonary vascular congestion. 2. Patchy airspace opacities are seen in the left mid to lower lung. Correlate clinically for evidence of pneumonia/aspiration pneumonitis. Radiographic fol low-up to resolution is recommended.
[2023-02-21] MEDS: ASPIRIN 81 MG CHEW PEG SCH (09:31)
[2023-02-21] MEDS: PANTOprazole 40 MG in SYRINGE 0 ML IV SCH ×2 (09:31→21:55)
[2023-02-21] MEDS: RIFAMPIN PEG SCH (16:56)
--- NOTE | 2023-02-21 17:38 | Hospitalist Progress Note ---
Date of Service February 21, 2023 Assessment & Plan (1) Septic shock: (2) Acute hypernatremia: (3) Acute renal failure (ARF): (4) Goals of care, counseling/discussion: (5) Anemia: (6) Wounds and injuries: Plan Patient is an 87 yr male presents from [facility] with septic shock, renal failure. Revoked hospice for ED admission per request who was traveling from [facility]. Pt was intubated. Admitting team confirmed NO CPR, defibrillation, cardioversion in the event of cardiac arrest. Palliative care evaled. He was managed for the following: Anemia: Hemoglobin has stabilized around 8.5, no active bleeding. PBS without Schistocytes, normal reticulocyte count, hemolysis less likely. Iron deficiency present. Poor nutrition does not help. Cont iron supplementation and proper nutrition. 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 Weaned off pressors and extubated 02/06. Pansensitive Klebsiella in sputum. Liliana in sputum likely a contaminant Urine Culture: Noncontributory (H/O chronic Villasenor, recent h/o of UTI) ECHO: EF 50 to 55%, bioprosthetic aortic valve, mild mitral regurgitation, grade 2 diastolic dysfunction, mild tricuspid regurgitation High risk for aspiration pneumonia. Known recent month long admission with urosepsis; was recently on Hospice Repeat blood cultures were negative. Initially admitted on Vanc/Zosyn 02/03 Plan will be total 6 weeks of Vancomycin with rifampin added from 02/16/23 with surveillance cultures (2 sets from the periphery) 5-7 days post completion of abx therapy. Severe protein calorie malnutrition H/O Esophageal dysmotility Dysphagia: Speech therapy involved in his care this admission. Palliative care evaled, Patient's POA now agreeing to no escalation of care (pressors, CPR, intubation). She declines COURT. However, POA would like PEG feeds. PEG placed 02/14-tolerating feeds without residual Remains high risk for aspiration [facility] cannot accept him back with PEG in place PEG feed held due to vomiting, resume peg feed at low rate, and upto 50% of goal for now. Consider pr bowel regimen to help w/ constipation as needed, moved large bowel per RN. Keep HOB at 30 degrees/aspiration precautions. Acute hypoxic respiratory failure Secondary to left lower lobe pneumonia likely due to aspiration Was weaned down to 2L NC O2, had vomiting and aspiration event 02/19, TF was held, and unasyn added 02/20. Now on 11 L O2 via OM, wean down O2 as james. Acute metabolic encephalopathy/known Dementia Secondary to above, in setting of Lewy body dementia and Hypernatremia (Na was 164 on admission 02/03) CT head: No significant change compared to the prior study. No acute int racranial abnormality. Reorient frequently Monitor sodium levels More alert, awake but remains non verbal --appears to be his baseline per . Elev. troponin: Troponin level 400's on admission - likely type II DC, secondary to above. No further workup at this time. Acute Hypernatremia: resolved. Acute Renal Failure: present at admission which was resolved. Had another bump in Cr on 02/20, d/w nephro - no ivf/avoid nephrotoxics/hold vanc until acceptable trough level achieved. appreciate recs. Pt's doesn't want villasenor cath, c/w intermittent st cath to avoid obstruction. Chronic Villasenor/urinary retention: Villasenor was replaced this admission. doesn't want villasenor, TOV done, currently on intermittent cath- would write for three times daily on discharge and [facility] is aware of his need for follow-up. would like to consider TURP or other prostate surgery in the future For now, will cont with alpha-ban. The only one that will go through the PEG is terazosin This capsule has to be melted in warm water for 15 minutes and then given as a solution through the PEG. WOUNDS: Multiple sites of ulceration with necrosis There are multiple pressure sites for skin breakdown This was a possible source for his sepsis this admission Wound care nurse consulted. Cont keeping him off these sites. 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 Pt give phone call and updated, answered all her questions. Admission and Anticipated Discharge Date Admission Date: February 03, 2023 Subjective Patient seen and examined at bedside as a follow-up of septic shock with staph bacteremia, acute hypoxic respiratory failure, acute metabolic encephalopathy/known dementia, severe protein calorie malnutrition and many other issues. Patient is very weak and ill and has very poor prognosis. Patient was lying on bed, on 12 L oxygen via oxygen mask. Pt opening eyes, can tell his first name and didn't converse anything else. No further vomiting per RN. d/w java tech, TF changed to concentrated form, at low rate now, pt seems to be tolerating well. c/w aspiration precaution. Physical Exam Physical Exam: GENERAL: lethargic, doesn't communicate back, chronically ill appearing/sick/weak/frail. HEENT: No pallor, no icterus. Pupils equal, round and reactive to light. Oral mucosa moist. NECK: No JVD, no neck masses. HEART: S1 and S2 heard. Regular rate and rhythm. No murmur, no gallop. RESPIRATORY SYSTEM: Normal AP diameter. No accessory muscle use. No wheezing, diffuse b/l crackles - improving ABDOMEN: Soft, bowel sounds present, nontender, no distention. CENTRAL NERVOUS SYSTEM: No facial droop. not able to cooperate for exam Presser point ulcers noted, pt in contracted position w/ stiffened extremities. EXTREMITIES: No edema, no erythema seen. Results & Data Results & Data Vital Signs (Past 12 Hours) Vital Signs Temp Pulse Resp BP Pulse Ox O2 Del Method O2 Flow Rate 02/21/23 15:00 37.7 C H 78 18 102/59 L 92 Oxymask 12 02/21/23 10:16 102/60 02/21/23 10:12 37.8 C H 73 24 100/53 L 93 Oxymask 12 02/21/23 08:32 37.6 C H 78 24 113/69 94 Oxymask 12 02/21/23 07:21 37.5 C 82 22 116/61 92 Oxymask 11
[2023-02-21] MEDS: GLYCOPYRROLATE 0.2 MG/ML VIAL IV PRN (17:55)
[2023-02-21] MEDS: ATORVASTATIN 20 MG TAB PEG SCH (21:55)
[2023-02-21] MEDS: HEPARIN SOD 5,000 UNIT/0.5 ML VIAL SQ SCH (21:55)
[2023-02-21] MEDS: TERAZOSIN HCL 1 MG CAP PO SCH (21:55)
[2023-02-22] MEDS: TUBE FEEDING WATER FLUSH PEG SCH ×7 (01:44→23:20)
[2023-02-22] MEDS: AMPICILLIN/SULBACTAM SOD 1,500 MG in 0.9 % SODIUM CHLORIDE 100 ML IV SCH ×2 (05:40→10:49)
[2023-02-22 07:02] LABS: Hemoglobin 7.2 g/dl (14.0-18.0); Mean Corpuscular Hemoglobin 30.3 pg (25.0-34.0); Mean Corpuscular Hgb Conc 32.7 g/dL (32.0-36.0); Mean Corpuscular Volume 92.4 fL (80.0-100.0); Mean Platelet Volume 11.8 fL (9.4-12.4); Platelet Count 268 K/uL (130-400); RDW Coefficient of Variation 14.6 % (11.5-14.5); Red Blood Count 2.38 M/uL (4.70-6.10); White Blood Count 12.38 K/ul (4.8-10.8)
[2023-02-22 07:19] LABS: Albumin Level 1.9 gm/dl (3.4-5.0); BUN Creatinine Ratio 29.9 (10-20); Bilirubin Direct 0.4 mg/dl (0-0.2); Bilirubin,Total 0.8 mg/dl (0.2-1.0); Creatinine Clr Calc Pharmacy 33.3 ml/min; Est GFR (African American) 36.6 ml/min; Est GFR (Non-African American) 31.6 ml/min; Potassium 4.6 mmol/L (3.5-5.1); Total Protein 5.3 gm/dl (6.0-8.3)
[2023-02-22] MEDS: HEPARIN SOD 5,000 UNIT/0.5 ML VIAL SQ SCH (07:56)
[2023-02-22] MEDS: CARBIDOPA/LEVODOPA 25/100MG TAB PEG SCH ×2 (07:56→20:34)
[2023-02-22] MEDS: ASPIRIN 81 MG CHEW PEG SCH (07:56)
[2023-02-22] MEDS: bisacodyL 10 MG SUPP PR SCH (07:57)
[2023-02-22] MEDS: PANTOprazole 40 MG in SYRINGE 0 ML IV SCH ×2 (07:57→20:34)
[2023-02-22] MEDS: ACETAMINOPHEN 325 MG TAB PEG PRN (08:23)
--- NOTE | 2023-02-22 09:58 | Nephrology Progress Note ---
Date of Service February 22, 2023 Assessment & Plan (1) Acute renal failure (ARF): Plan: earlier this admission he had prerenal HERSON; now with recurrent HERSON w/ creatinine going from 1 > 1.7 in 24 hrs and now plateau'd at 1.9 past 48 hrs; not oliguric but notably borderline UOP after Ferris replaced (450 mL past 24hr). despite CT report/findings, PE not c/w anasarca. calcium likely ok given low albumin; other chemistries acceptable prior to admission baseline creatinine 0.9. >>if vancomycin to be continued, would dose by level; could redose now if indicated -avoid further IV contrast for now unless life/limb saving -would not give lasix at this time unless respiratory status worsening > if needed would give 40 mg IV -would not give IV fluids at this time -agree w/ resuming tube feeds, free water flushes > monitor UOP after increase in FWF amounts >>treat constipation -avoid NSAID >ordered liver enzymes for am > acceptable >continue to discuss goals of care >likely fever is from PNA but continues to spike; f/u pending blood cultures Admission and Anticipated Discharge Date Admission Date: February 03, 2023 Subjective no interval clinical events. low grade F this AM after I evaluated him. Review of Systems Review of Systems: Unobtainable due to reduced consciousness Physical Exam Constitutional: well developed, + thin, + frail appearing and + lethargic; no acute distress ENMT: Ears: no external ear abnormality Nose: no external nose abnormality Mouth: + dry oral mucous membranes and + poor dentition Neck: no nuchal rigidity Respiratory: normal respiratory effort; no cough Auscultation: + diminished lung sounds (anterior exam) Cardiovascular: Rate/Rhythm: regular rate and regular rhythm Heart Sounds: + murmur Extremities: + edema (1+ dependent) Gastrointestinal (Abdomen): Inspection/Auscultation: normal bowel sounds Percussion/Palpation: abdomen soft (PEG present); abdomen nontender Musculoskeletal: Extremities: strength 5/5 throughout, + abnormal strength, + abnormal muscle tone (contractures) and + muscle atrophy Skin: no rashes, warm and dry Neurologic: not interactive/responsive except to withdraw from noxious stimuli, no speech/utterances Results & Data Vital Signs (Past 12 Hours) Vital Signs Temp Pulse Resp BP Pulse Ox O2 Del Method O2 Flow Rate 02/22/23 08:09 38.4 C H 78 18 112/58 L 95 Oxymask 12 02/21/23 21:55 Oxymask 12 Laboratory Results 02/22/23 06:15 02/22/23 06:15
--- NOTE | 2023-02-22 10:30 | Pharmacy Report ---
Pharmacy PK ABX Note - Date of Service February 22, 2023 - Assessment and Plan Assessment 87 year old M receiving IV Vancomycin and rifampin for treatment of severe sepsis secondary to pneumonia/bacteremia. Day # 18 of antimicrobial therapy. 02/22: SCr remains elevated at 1.87 mg/dL. Random level obtained last evening demonstrated no clearance of vancomycin. This level was repeated out of concern for error. Repeat level slightly increased, which is unusual given last dose of vanco was administered on 02/19 PM. Random levels: 02/20 @ 1032 - 25.1 mcg/mL 02/21 @ 0641 - 18 mcg/mL 02/21 @ 2027 - 18.9 mcg/mL 02/21 @ 2240 - 19.1 mcg/mL ?? 02/22 @ 0615 - 16.5 mcg/mL 02/21: Patient in H[place], SCr continues to worsen, 1.87 mg/dL today. Vancomycin was held on 02/20. Last dose was administered 02/19 @ 1999. Random level this morning resulted at 18 mcg/mL. Will administer one time doses based on random levels until HERSON resolves. Discussed plan with Hospitalist. 02/20: SCr 1.77 mg/dL this morning (significant elevation from yesterday 1.19 mg/dL). Significant increase in WBC today as well (9 -> 17.3) Originally did not plan a level for today, but will obtain additional random level in light of these findings. Chest x-ray shows possible aspiration pneumonitis - Unasyn initiated overnight. 02/18: ID consulted, 6 weeks of vancomycin/rifampin therapy. Reviewed random level this AM, Predicted to achieve steady state AUC 542mg/L.hr and ss trough 16 mcg/mL. Continue vancomycin 1500mg Q24H. Recheck level in 5-7 days, unless there is significant changes in serum creatinine. 02/15: Random level drawn this AM suggestive that current vancomycin regimen (1500mg Q24H) remains appropriate to target optimal AUC; low probability of nephrotoxicity at 11%. Renal labs otherwise stable. Plan to continue through 02/17 dose, per Dr Gutierrez. Refer to previous notes for additional background. Plan Vancomycin * 750 mg IV x 1 dose ordered for today at 1100 * Random level ordered for 02/23 with AM labs Rifampin * 600 mg PO daily Unasyn * 1.5 g IV q6h - appropriate for indication/renal function Pharmacy will continue to follow and will adjust dose/frequency as necessary. Thank you.
[2023-02-22] MEDS ORDERED: VANCOMYCIN HCL 750 MG in DEXTROSE 5% 250 ML IV ONE (11:00)
[2023-02-22 15:41] LABS: Hematocrit (blood only) 23.1 % (42.0-52.0); Hemoglobin 7.5 g/dl (14.0-18.0)
--- NOTE | 2023-02-22 15:50 | Hospitalist Progress Note ---
Date of Service February 22, 2023 Assessment & Plan (1) Septic shock: (2) Acute hypernatremia: (3) Acute renal failure (ARF): (4) Goals of care, counseling/discussion: (5) Anemia: (6) Wounds and injuries: Plan Patient is an 87 yr male presents from [facility] with septic shock, renal failure. Revoked hospice for ED admission per request who was traveling from [facility]. Pt was intubated. Admitting team confirmed No CPR, defibrillation, cardioversion in the event of cardiac arrest. Palliative care evaluated. He is being managed for the following: Fever- continues to spike fever despite being on vanc/unasyn/rifampin. Blood clx is negative from yesterday at day 1. Will change to unasyn to zosyn, renally dosed and monitor. Anemia: Hemoglobin >7, no active bleeding. PBS without Schistocytes, normal reticulocyte count, hemolysis less likely. Iron deficiency present. Poor nutrition does not help. Cont iron supplementation and proper nutrition. Septic Shock with staph (REIMBURSEMENT SPEC not lugdunensis) bacteremia: possible sources include skin vs pneumonia and UTI with indwelling Villasenor. Weaned off pressors and extubated 02/06. Pansensitive Klebsiella in sputum. Liliana in sputum likely a contaminant Urine Culture: Noncontributory (H/O chronic Villasenor, recent h/o of UTI) ECHO: EF 50 to 55%, bioprosthetic aortic valve, mild mitral regurgitation, grade 2 diastolic dysfunction, mild tricuspid regurgitation High risk for aspiration pneumonia. Known recent month long admission with urosepsis; was recently on Hospice Repeat blood cultures were negative. Initially admitted on Vanc/Zosyn 02/03 Plan will be total 6 weeks of Vancomycin with rifampin added from 02/16/23 with surveillance cultures (2 sets from the periphery) 5-7 days post completion of abx therapy. Severe protein calorie malnutrition H/O Esophageal dysmotility Dysphagia: Speech therapy involved in his care this admission. Palliative care evaled, Patient's POA now agreeing to no escalation of care (pressors, CPR, intubation). She declines COURT. However, POA would like PEG feeds. PEG placed 02/14-tolerating feeds without residual Remains high risk for aspiration [facility] cannot accept him back with PEG in place PEG feed held due to vomiting, resume peg feed at low rate, and upto 50% of goal for now. Consider pr bowel regimen to help w/ constipation as needed, moved large bowel per RN. Keep HOB at 30 degrees/aspiration precautions. Acute hypoxic respiratory failure Secondary to left lower lobe pneumonia likely due to aspiration Was weaned down to 2L NC O2, had vomiting and aspiration event 02/19, TF was held, and unasyn added 02/20. Now on 12 L O2 via oxymask, wean down O2 as james. Acute metabolic encephalopathy/known Dementia Secondary to above, in setting of Lewy body dementia and Hypernatremia (Na was 164 on admission 02/03), sodium now normal CT head: No significant change compared to the prior study. No acute intracranial abnormality. Elev. troponin: Troponin level 400's on admission - likely type II [place], secondary to above. No further workup at this time. Acute Hypernatremia: resolved. Acute Renal Failure: present at admission which was resolved. Had another bump in Cr on 02/20, d/w nephro - no ivf/avoid nephrotoxics/hold vanc until acceptable trough level achieved. appreciate recs. Pt's doesn't want villasenor cath, c/w intermittent st cath to avoid obstruction. Nephro managing Chronic Villasenor/urinary retention: Villasenor was replaced this admission. doesn't want villasenor, TOV done, currently on intermittent cath- would write for three times daily on discharge and [facility] urology is aware of his need for follow-up. would like to consider TURP or other prostate surgery in the future For now, will cont with alpha-ban. The only one that will go through the PEG is terazosin This capsule has to be melted in warm water for 15 minutes and then given as a solution through the PEG. WOUNDS: Multiple sites of ulceration with necrosis There are multiple pressure sites for skin breakdown This was a possible source for his sepsis this admission Wound care nurse consulted. Cont keeping him off these sites. 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 Admission and Anticipated Discharge Date Admission Date: February 03, 2023 Subjective Patient was seen and examined at bedside in presence of . Patient is minimally responsive, not even opening his eyes but squeeze hands lightly on command. Still has fever. Still on OxyMask. Review of Systems Review of Systems: All systems reviewed & are unremarkable except as noted in Subjective Physical Exam Physical Exam: General: Frail elderly male, lethargic, minimally responsive, ill-appearing Chest: Fair breath sounds with mild crackles CVS: Regular rate and rhythm, normal heart sounds, no murmur Abdomen: Soft, non tender, not distended, normal bowel sounds. PEG tube in place with tube feed Neuro: Lethargic, minimally responsive Extremities: No edema, contracted/stiff extremities Skin: Pressure ulcers noted Results & Data Results & Data Vital Signs (Past 12 Hours) Vital Signs Temp Pulse Resp BP Pulse Ox O2 Del Method O2 Flow Rate 02/22/23 08:15 Oxymask 12 02/22/23 08:09 38.4 C H 78 18 112/58 L 95 Oxymask 12 Laboratory Results Short CBC 02/22/23 02/22/23 Range/Units 06:15 14:28 WBC 12.38 H (4.8-10.8) K/ul Hgb 7.2 L 7.5 L (14.0-18.0) g/dl Hct 22.0 L 23.1 L (42.0-52.0) % Plt Count 268 (130-400) K/uL BMP 02/22/23 06:15 Sodium 142 Potassium 4.6 Chloride 107 Carbon Dioxide 29 BUN 56 H Creatinine 1.87 H Glucose 148 H Calcium 7.0 L Liver Function 02/22/23 Range/Units 06:15 Total Bilirubin 0.8 (0.2-1.0) mg/dl Direct Bilirubin 0.4 H (0-0.2) mg/dl AST 44 H (13-39) U/L ALT 18 (7-52) U/L Alkaline Phosphatase 126 H (34-104) U/L Albumin 1.9 L (3.4-5.0) gm/dl Medications Administered Current Inpatient Medications Acetaminophen (Acetaminophen 325 Mg Tab) 650 mg PEG Q4H PRN PRN Reason: Pain or Fever Stop: 03/13/23 10:34 Last Admin: 02/22/23 08:23 Dose: 650 mg Albuterol (Albut/Ipratrop 3mg/0.5mg Neb 3 Ml Vial) 3 ml NEB Q4R PRN; Protocol PRN Reason: Shortness Of Breath Or Wheezing Stop: 03/22/23 02:59 Last Admin: 02/19/23 23:20 Dose: 3 ml Aspirin (Aspirin 81 Mg Chew) 81 mg PEG QAM FERNIE Stop: 03/19/23 08:59 Last Admin: 02/22/23 07:56 Dose: 81 mg Atorvastatin Calcium (Atorvastatin 20 Mg Tab) 20 mg PEG QPM FERNIE Stop: 03/18/23 20:59 Last Admin: 02/21/23 21:55 Dose: 20 mg Carbidopa/Levodopa (Carbidopa/Levodopa 25/100mg Tab) 1 tab PEG BID FERNIE Stop: 03/18/23 20:59 Last Admin: 02/22/23 07:56 Dose: 1 tab Donepezil HCl (Donepezil Hcl 5 Mg Tab) 5 mg PO QAM FERNIE Stop: 03/13/23 08:59 Last Admin: 02/17/23 08:21 Dose: 5 mg Glucagon (Glucagon For Inj 1 Mg Vial) 1 mg SQ UD PRN; Protocol PRN Reason: Hypoglycemia Protocol Stop: 03/06/23 02:57 Glycopyrrolate (Glycopyrrolate 0.2 Mg/Ml Vial) 0.2 mg IV Q3H PRN PRN Reason: secretions Stop: 03/05/23 16:47 Last Admin: 02/21/23 17:55 Dose: 0.2 mg Heparin Sodium (Beef Lung) (Heparin 10 Unit/Ml 5 Ml Flush) 5 ml FLUSH PRN PRN PRN Reason: Flush Stop: 03/08/23 16:07 Last Admin: 02/22/23 05:40 Dose: 5 ml Ampicillin Sodium/Sulbactam Sodium 1,500 mg/ Sodium Chloride 104 mls @ 200 mls/hr IV Q6H FERNIE; Protocol Stop: 02/27/23 00:00 Last Infusion: 02/22/23 11:36 Dose: Infused Pantoprazole Sodium 40 mg/ (Syringe) 10 mls @ 5 mls/min IV BID FERNIE Stop: 03/22/23 08:59 Last Admin: 02/22/23 07:57 Dose: 5 mls/min Lansoprazole (Lansoprazole 30 Mg Soltab) 30 mg PEG QAM FERNIE Stop: 03/19/23 08:59 Last Admin: 02/21/23 08:47 Dose: 30 mg Miscellaneous Information (Vancomycin Consult Active) 1 each N/A UD PRN PRN Reason: Consult Stop: 03/20/23 06:47 Nutritional Formula (Nutren Liqd 2.0 1,000 Ml Bag) 1,000 ml PEG UD FERNIE; Protocol Stop: 03/22/23 15:44 Last Admin: 02/20/23 17:29 Dose: 1,000 ml Polyethylene Glycol (Polyethylene (Miralax) 17 Gm Pack) 17 gm PEG DAILY PRN PRN Reason: Constipation Stop: 03/05/23 15:43 Rifampin (Rifampin 600mg/60ml Udp) 600 mg PEG Q24H FERINE Stop: 03/07/23 17:59 Last Admin: 02/21/23 16:56 Dose: 600 mg Sterile Water (Tube Feeding Water Flush) 150 ml PEG Q4H FERNIE Stop: 03/24/23 11:14 Last Admin: 02/22/23 15:36 Dose: 150 ml Terazosin HCl (Terazosin Hcl 1 Mg Cap) 2 mg PO HS FERNIE Stop: 03/22/23 20:59 Last Admin: 02/21/23 21:55 Dose: 2 mg
[2023-02-22] MEDS ORDERED: PIPERACILLIN/TAZOBACTAM 4.5 GM in DEXTROSE 5% 100 ML IV ONE (16:15)
[2023-02-22] MEDS: RIFAMPIN PEG SCH (17:06)
[2023-02-22] MEDS: TERAZOSIN HCL 1 MG CAP PO SCH (20:34)
[2023-02-22] MEDS: ATORVASTATIN 20 MG TAB PEG SCH (20:34)
[2023-02-22] MEDS: PIPERACILLIN/TAZOBACTAM 4.5 GM CI (over 4 hours) IV SCH (21:29)
[2023-02-23] MEDS: TUBE FEEDING WATER FLUSH PEG SCH ×6 (03:15→23:15)
[2023-02-23] MEDS: PIPERACILLIN/TAZOBACTAM 4.5 GM CI (over 4 hours) IV SCH ×3 (05:39→22:38)
[2023-02-23 06:17] LABS: Hematocrit (blood only) 21.4 % (42.0-52.0); Hemoglobin 7.1 g/dl (14.0-18.0); Mean Corpuscular Hemoglobin 30.3 pg (25.0-34.0); Mean Corpuscular Hgb Conc 33.2 g/dL (32.0-36.0); Mean Corpuscular Volume 91.5 fL (80.0-100.0); Mean Platelet Volume 11.5 fL (9.4-12.4); Platelet Count 266 K/uL (130-400); RDW Coefficient of Variation 14.7 % (11.5-14.5); RDW Standard Deviation 48.7 fL (36.4-46.3); Red Blood Count 2.34 M/uL (4.70-6.10); White Blood Count 12.12 K/ul (4.8-10.8)
[2023-02-23] MEDS: NUTREN LIQD 2.0 1,000 ML BAG PEG SCH (06:31)
[2023-02-23 06:39] LABS: BUN Creatinine Ratio 28.6 (10-20); Calcium 6.8 mg/dl (8.6-10.3); Creatinine Clr Calc Pharmacy 32.9 ml/min; Est GFR (African American) 36.2 ml/min; Est GFR (Non-African American) 31.2 ml/min; Magnesium 2.1 mg/dl (1.7-2.4); Phosphorus 2.9 mg/dl (2.5-4.9); Potassium 3.9 mmol/L (3.5-5.1)
--- NOTE | 2023-02-23 08:08 | Hospitalist Progress Note ---
Date of Service February 23, 2023 Assessment & Plan (1) Septic shock: (2) Acute hypernatremia: (3) Acute renal failure (ARF): (4) Goals of care, counseling/discussion: (5) Anemia: (6) Wounds and injuries: Plan Patient is an 87 yr male presents from [facility] with septic shock, renal failure. Revoked hospice for ED admission per request who was traveling from [facility]. Pt was intubated. Admitting team confirmed No CPR, defibrillation, cardioversion in the event of cardiac arrest. Palliative care evaluated. He is being managed for the following: Fever- continued to spike fever despite being on vanc/unasyn/rifampin. Blood clx is so far negative. Change unasyn to zosyn, renally dosed and monitor. Anemia: Hemoglobin >7, no active bleeding. PBS without Schistocytes, normal reticulocyte count, hemolysis less likely. Iron deficiency present. Poor nutrition does not help. Cont iron supplementation and proper nutrition. 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 Weaned off pressors and extubated 02/06. Pansensitive Klebsiella in sputum. Liliana in sputum likely a contaminant Urine Culture: Noncontributory (H/O chronic Villasenor, recent h/o of UTI) ECHO: EF 50 to 55%, bioprosthetic aortic valve, mild mitral regurgitation, grade 2 diastolic dysfunction, mild tricuspid regurgitation High risk for aspiration pneumonia. Known recent month long admission with urosepsis; was recently on Hospice Repeat blood cultures were negative. Initially admitted on Vanc/Zosyn 02/03 Plan will be total 6 weeks of Vancomycin with rifampin added from 02/16/23 with surveillance cultures (2 sets from the periphery) 5-7 days post completion of abx therapy. Severe protein calorie malnutrition H/O Esophageal dysmotility Dysphagia: Speech therapy involved in his care this admission. Palliative care involved, Patient's POA now agreeing to no escalation of care (pressors, CPR, intubation). She declines COURT. However, POA would like PEG feeds. PEG placed 02/14-tolerating feeds without residual Remains high risk for aspiration [facility] cannot accept him back with PEG in place PEG feed held due to vomiting, resume peg feed at low rate, and upto 50% of goal for now. Consider pr bowel regimen to help w/ constipation as needed, moved large bowel per RN. Keep HOB at 30 degrees/aspiration precautions. Acute hypoxic respiratory failure Secondary to left lower lobe pneumonia likely due to aspiration Was weaned down to 2L NC O2, had vomiting and aspiration event 02/19, TF was held, and unasyn added 02/20. Now on 12 L O2 via oxymask, wean down O2 as james. Acute metabolic encephalopathy/known Dementia Secondary to above, in setting of Lewy body dementia and Hypernatremia (Na was 164 on admission 02/03), sodium now normal CT head: No significant change compared to the prior study. No acute intracran ial abnormality. Elev. troponin: Troponin level 400's on admission - likely type II [place], secondary to above. No further workup at this time. Acute Hypernatremia: resolved. Acute Renal Failure: present at admission which was resolved. Had another bump in Cr on 02/20, d/w nephro - no ivf/avoid nephrotoxics/hold vanc until acceptable trough level achieved. appreciate recs. Pt's doesn't want villasenor cath, c/w intermittent st cath to avoid obstruction. Nephro managing Chronic Villasenor/urinary retention: Villasenor was replaced this admission. doesn't want villasenor, TOV done, currently on intermittent cath- would write for three times daily on discharge and [facility] urology is aware of his need for follow-up. would like to consider TURP or other prostate surgery in the future For now, will cont with alpha-ban. The only one that will go through the PEG is terazosin This capsule has to be melted in warm water for 15 minutes and then given as a solution through the PEG. WOUNDS: Multiple sites of ulceration with necrosis There are multiple pressure sites for skin breakdown This was a possible source for his sepsis this admission Wound care nurse consulted. Cont keeping him off these sites. 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 failure, aspiration Currently RN at the bedside, pt being re-positioned His eyes are open and he coughs (nonproductive) however not answering He is Still on OxyMask Review of Systems Review of Systems: Unobtainable due to cognitive status Physical Exam Physical Exam: General: Frail elderly male, chronically ill-appearing lethargic, minimally responsive Chest: +rhonchi, + min. crackles, no wheezing CVS: Regular rate and rhythm, normal heart sounds, no murmur Abdomen: Soft, non tender, not distended, normal bowel sounds. PEG tube in place with tube feed Neuro: Lethargic, minimally responsive Extremities: No edema, contracted/stiff extremities Skin: Pressure ulcers noted Results & Data Results & Data Vital Signs (Past 12 Hours) Vital Signs Temp Pulse Resp BP Pulse Ox O2 Del Method O2 Flow Rate 02/23/23 07:21 37.8 C H 68 18 108/58 L 97 Oxymask 12 02/22/23 20:34 Oxymask 12 02/22/23 22:29 37.4 C 68 18 113/51 L 97 Oxymask 12 Laboratory Results 02/23/23 02/23/23 02/23/23 Range/Units 05:20 05:20 05:20 WBC 12.12 H (4.8-10.8) K/ul RBC 2.34 L (4.70-6.10) M/uL Hgb 7.1 L (14.0-18.0) g/dl Hct 21.4 L (42.0-52.0) % MCV 91.5 (80.0-100.0) fL MCH 30.3 (25.0-34.0) pg MCHC 33.2 (32.0-36.0) g/dL RDW Std Deviation 48.7 H (36.4-46.3) fL RDW Coeff of Lacey 14.7 H (11.5-14.5) % Plt Count 266 (130-400) K/uL MPV 11.5 (9.4-12.4) fL Sodium 143 (136-145) mmol/L Potassium 3.9 (3.5-5.1) mmol/L Chloride 107 (98-107) mmol/L Carbon Dioxide 29 (21-32) mmol/L Anion Gap 7 (3-11) BUN 54 H (6-23) mg/dl Creatinine 1.89 H (0.6-1.4) mg/dl Est Cr Clr Drug Dosing 32.9 ml/min Est GFR ( Amer) 36.2 ml/min Est GFR (Non-Af Amer) 31.2 ml/min BUN/Creatinine Ratio 28.6 H (10-20) Glucose 144 H (70-99(Fasting)) mg/dl Calcium 6.8 L (8.6-10.3) mg/dl Phosphorus 2.9 (2.5-4.9) mg/dl Magnesium 2.1 (1.7-2.4) mg/dl Procalcitonin 1.76 H (0-0.5) ng/ml Random Vancomycin (10-20) mcg/ml 02/23/23 02/22/23 Range/Units 05:20 14:28 WBC (4.8-10.8) K/ul RBC (4.70-6.10) M/uL Hgb 7.5 L (14.0-18.0) g/dl Hct 23.1 L (42.0-52.0) % MCV (80.0-100.0) fL MCH (25.0-34.0) pg MCHC (32.0-36.0) g/dL RDW Std Deviation (36.4-46.3) fL RDW Coeff of Lacey (11.5-14.5) % Plt Count (130-400) K/uL MPV (9.4-12.4) fL Sodium (136-145) mmol/L Potassium (3.5-5.1) mmol/L Chloride (98-107) mmol/L Carbon Dioxide (21-32) mmol/L Anion Gap (3-11) BUN (6-23) mg/dl Creatinine (0.6-1.4) mg/dl Est Cr Clr Drug Dosing ml/min Est GFR ( Amer) ml/min Est GFR (Non-Af Amer) ml/min BUN/Creatinine Ratio (10-20) Glucose (70-99(Fasting)) mg/dl Calcium (8.6-10.3) mg/dl Phosphorus (2.5-4.9) mg/dl Magnesium (1.7-2.4) mg/dl Procalcitonin (0-0.5) ng/ml Random Vancomycin 16.9 (10-20) mcg/ml Medications Administered Current Inpatient Medications Acetaminophen (Acetaminophen 325 Mg Tab) 650 mg PEG Q4H PRN PRN Reason: Pain or Fever Stop: 03/13/23 10:34 Last Admin: 02/22/23 08:23 Dose: 650 mg Albuterol (Albut/Ipratrop 3mg/0.5mg Neb 3 Ml Vial) 3 ml NEB Q4R PRN; Protocol PRN Reason: Shortness Of Breath Or Wheezing Stop: 03/22/23 02:59 Last Admin: 02/19/23 23:20 Dose: 3 ml Aspirin (Aspirin 81 Mg Chew) 81 mg PEG QAM FERNIE Stop: 03/19/23 08:59 Last Admin: 02/22/23 07:56 Dose: 81 mg Atorvastatin Calcium (Atorvastatin 20 Mg Tab) 20 mg PEG QPM FERNIE Stop: 03/18/23 20:59 Last Admin: 02/22/23 20:34 Dose: 20 mg Carbidopa/Levodopa (Carbidopa/Levodopa 25/100mg Tab) 1 tab PEG BID FERNIE Stop: 03/18/23 20:59 Last Admin: 02/22/23 20:34 Dose: 1 tab Donepezil HCl (Donepezil Hcl 5 Mg Tab) 5 mg PO QAM FERNIE Stop: 03/13/23 08:59 Last Admin: 02/17/23 08:21 Dose: 5 mg Glucagon (Glucagon For Inj 1 Mg Vial) 1 mg SQ UD PRN; Protocol PRN Reason: Hypoglycemia Protocol Stop: 03/06/23 02:57 Glycopyrrolate (Glycopyrrolate 0.2 Mg/Ml Vial) 0.2 mg IV Q3H PRN PRN Reason: secretions Stop: 03/05/23 16:47 Last Admin: 02/21/23 17:55 Dose: 0.2 mg Heparin Sodium (Beef Lung) (Heparin 10 Unit/Ml 5 Ml Flush) 5 ml FLUSH PRN PRN PRN Reason: Flush Stop: 03/08/23 16:07 Last Admin: 02/23/23 05:40 Dose: 5 ml Pantoprazole Sodium 40 mg/ (Syringe) 10 mls @ 5 mls/min IV BID FERNIE Stop: 03/22/23 08:59 Last Admin: 02/22/23 20:34 Dose: 5 mls/min Piperacillin Sod/Tazobactam (Sod 4.5 gm/ Dextrose) 120 mls @ 30 mls/hr IV Q8H [facility]; Protocol Stop: 03/01/23 21:59 Last Admin: 02/23/23 05:39 Dose: 30 mls/hr Lansoprazole (Lansoprazole 30 Mg Soltab) 30 mg PEG QAM FERNIE Stop: 03/19/23 08:59 Last Admin: 02/21/23 08:47 Dose: 30 mg Miscellaneous Information (Vancomycin Consult Active) 1 each N/A UD PRN PRN Reason: Consult Stop: 03/20/23 06:47 Nutritional Formula (Nutren Liqd 2.0 1,000 Ml Bag) 1,000 ml PEG UD [facility]; Protocol Stop: 03/22/23 15:44 Last Admin: 02/23/23 06:31 Dose: 1,000 ml Polyethylene Glycol (Polyethylene (Miralax) 17 Gm Pack) 17 gm PEG DAILY PRN PRN Reason: Constipation Stop: 03/05/23 15:43 Rifampin (Rifampin 600mg/60ml Udp) 600 mg PEG Q24H FERNIE Stop: 03/07/23 17:59 Last Admin: 02/22/23 17:06 Dose: 600 mg Sterile Water (Tube Feeding Water Flush) 150 ml PEG Q4H FERNIE Stop: 03/24/23 11:14 Last Admin: 02/23/23 03:15 Dose: 150 ml Terazosin HCl (Terazosin Hcl 1 Mg Cap) 2 mg PO HS FERNIE Stop: 03/22/23 20:59 Last Admin: 02/22/23 20:34 Dose: 2 mg
[2023-02-23] MEDS: CARBIDOPA/LEVODOPA 25/100MG TAB PEG SCH ×2 (09:31→20:21)
[2023-02-23] MEDS: ASPIRIN 81 MG CHEW PEG SCH (09:31)
[2023-02-23] MEDS: PANTOprazole 40 MG in SYRINGE 0 ML IV SCH ×2 (09:31→20:21)
--- NOTE | 2023-02-23 10:17 | Pharmacy Report ---
Pharmacy PK ABX Note - Date of Service February 23, 2023 - Assessment and Plan Assessment 87 year old M receiving IV Vancomycin and rifampin for treatment of severe sepsis secondary to pneumonia/bacteremia. Day # 18 of antimicrobial therapy. 02/23:Scr remains consistent again today 1.89. Random level this morning was 16.9, was 16.5 yesterday morning prior to one time dose. Will repeat same one time dose today and obtain a random level tomorrow. If scr and level continue to remain consistent could consider this dose on a scheduled basis. Unasyn was changed to zosyn yesterday. 02/22: SCr remains elevated at 1.87 mg/dL. Random level obtained last evening demonstrated no clearance of vancomycin. This level was repeated out of concern for error. Repeat level slightly increased, which is unusual given last dose of vanco was administered on 02/19 PM. Random levels: 02/20 @ 1032 - 25.1 mcg/mL 02/21 @ 0641 - 18 mcg/mL 02/21 @ 8 - 18.9 mcg/mL 02/21 @ 2240 - 19.1 mcg/mL ?? 02/22 @ 0615 - 16.5 mcg/mL 02/21: Patient in H[place], SCr continues to worsen, 1.87 mg/dL today. Vancomycin was held on 02/20. Last dose was administered 02/19 @ 1999. Random level this morning resulted at 18 mcg/mL. Will administer one time doses based on random levels until HERSON resolves. Discussed plan with Hospitalist. 02/20: SCr 1.77 mg/dL this morning (significant elevation from yesterday 1.19 mg/dL). Significant increase in WBC today as well (9 -> 17.3) Originally did not plan a level for today, but will obtain additional random level in light of these findings. Chest x-ray shows possible aspiration pneumonitis - Unasyn initiated overnight. 02/18: ID consulted, 6 weeks of vancomycin/rifampin therapy. Reviewed random level this AM, Predicted to achieve steady state AUC 542mg/L.hr and ss trough 16 mcg/mL. Continue vancomycin 1500mg Q24H. Recheck level in 5-7 days, unless there is significant changes in serum creatinine. 02/15: Random level drawn this AM suggestive that current vancomycin regimen (1500mg Q24H) remains appropriate to target optimal AUC; low probability of nephrotoxicity at 11%. Renal labs otherwise stable. Plan to continue through 02/17 dose, per Dr Gutierrez. Refer to previous notes for additional background. Plan Vancomycin * 750 mg IV x 1 dose ordered for today at 1100 * Random level ordered for 02/24 with AM labs Rifampin * 600 mg PO daily Zosyn * 4.5 g q8 - appropriate for indication/renal function Pharmacy will continue to follow and will adjust dose/frequency as necessary. Thank you.
[2023-02-23] MEDS ORDERED: VANCOMYCIN HCL 750 MG in DEXTROSE 5% 250 ML IV ONE (11:00)
--- NOTE | 2023-02-23 15:43 | Nephrology Progress Note ---
Date of Service February 23, 2023 Assessment & Plan (1) Acute renal failure (ARF): Plan: earlier this admission he had prerenal HERSON; now with recurrent HERSON w/ creatinine going from 1 > 1.7 in 24 hrs and now plateau'd at 1.9 past 48 hrs; not oliguric but notably borderline UOP after Ferris replaced (450 mL past 24hr). despite CT report/findings, PE not c/w anasarca. calcium likely ok given low albumin; other chemistries acceptable prior to admission baseline creatinine 0.9. >>continue to dose vanco by level -avoid further IV contrast for now unless life/limb saving -would not give lasix at this time unless respiratory status worsening > if needed would give 40 mg IV -would not give IV fluids at this time -continue as tolerated tube feeds, free water flushes > monitor UOP which is improving -avoid NSAID >continue to discuss goals of care >likely fever is from PNA but continues to spike Admission and Anticipated Discharge Date Admission Date: February 03, 2023 Subjective seen on rounds early this AM; febrile overnight. remains obtunded Review of Systems Review of Systems: Unobtainable due to reduced consciousness Physical Exam Constitutional: well developed, + thin, + frail appearing and + lethargic; no acute distress ENMT: Ears: no external ear abnormality Nose: no external nose abnormality Mouth: + dry oral mucous membranes and + poor dentition Neck: no nuchal rigidity Respiratory: normal respiratory effort; no cough Auscultation: + diminished lung sounds Cardiovascular: RRR, no murmur, no edema Rate/Rhythm: regular rate and regular rhythm Heart Sounds: + murmur Extremities: no edema Gastrointestinal (Abdomen): Inspection/Auscultation: normal bowel sounds Percussion/Palpation: abdomen soft (PEG present); abdomen nontender Musculoskeletal: Extremities: strength 5/5 throughout, + abnormal strength, + abnormal muscle tone (contractures) and + muscle atrophy Skin: no rashes, warm and dry Results & Data Vital Signs (Past 12 Hours) Vital Signs Temp Pulse Resp BP Pulse Ox O2 Del Method O2 Flow Rate 02/23/23 12:46 36.5 C 61 20 117/71 94 Oxymask 12 02/23/23 08:10 Oxymask 12 02/23/23 07:21 37.8 C H 68 18 108/58 L 97 Oxymask 12 Laboratory Results 02/23/23 05:20 02/23/23 05:20
[2023-02-23] MEDS: RIFAMPIN PEG SCH (17:52)
[2023-02-23] MEDS: ATORVASTATIN 20 MG TAB PEG SCH (20:21)
[2023-02-23] MEDS: TERAZOSIN HCL 1 MG CAP PO SCH (20:21)
[2023-02-24] MEDS: TUBE FEEDING WATER FLUSH PEG SCH ×6 (03:15→23:15)
[2023-02-24] MEDS: PIPERACILLIN/TAZOBACTAM 4.5 GM CI (over 4 hours) IV SCH ×3 (05:15→22:39)
[2023-02-24 06:38] LABS: Hematocrit (blood only) 22.6 % (42.0-52.0); Hemoglobin 7.4 g/dl (14.0-18.0); Mean Corpuscular Hemoglobin 30.1 pg (25.0-34.0); Mean Corpuscular Hgb Conc 32.7 g/dL (32.0-36.0); Mean Corpuscular Volume 91.9 fL (80.0-100.0); Mean Platelet Volume 11.4 fL (9.4-12.4); Platelet Count 263 K/uL (130-400); RDW Coefficient of Variation 14.6 % (11.5-14.5); RDW Standard Deviation 49.2 fL (36.4-46.3); Red Blood Count 2.46 M/uL (4.70-6.10); White Blood Count 11.17 K/ul (4.8-10.8)
[2023-02-24 06:58] LABS: BUN Creatinine Ratio 26.3 (10-20); Creatinine Clr Calc Pharmacy 31.4 ml/min; Est GFR (African American) 34.2 ml/min; Est GFR (Non-African American) 29.5 ml/min; Magnesium 2.1 mg/dl (1.7-2.4); Phosphorus 3.1 mg/dl (2.5-4.9)
[2023-02-24] MEDS: CARBIDOPA/LEVODOPA 25/100MG TAB PEG SCH ×2 (09:04→20:03)
[2023-02-24] MEDS: ASPIRIN 81 MG CHEW PEG SCH (09:04)
[2023-02-24] MEDS: PANTOprazole 40 MG in SYRINGE 0 ML IV SCH ×2 (09:04→20:03)
--- NOTE | 2023-02-24 09:36 | Pharmacy Report ---
Pharmacy PK ABX Note - Date of Service February 24, 2023 - Assessment and Plan Assessment 87 year old M receiving IV Zosyn, vancomycin and PO rifampin for treatment of severe sepsis secondary to bacteremia with HAP/aspiration PNA. 02/24 Day # 22 of antimicrobial therapy. SCr mostly stable, with very slight increase only. Will schedule vancomycin but obtain early level in 48 hours 2nd risk of further HERSON with Zosyn plus vanco. May need to re-assess tomorrow AM if SCr changes significantly. 02/23:Scr remains consistent again today 1.89. Random level this morning was 16.9, was 16.5 yesterday morning prior to one time dose. Will repeat same one time dose today and obtain a random level tomorrow. If scr and level continue to remain consistent could consider this dose on a scheduled basis. Unasyn was changed to zosyn yesterday. 02/22: SCr remains elevated at 1.87 mg/dL. Random level obtained last evening demonstrated no clearance of vancomycin. This level was repeated out of concern for error. Repeat level slightly increased, which is unusual given last dose of vanco was administered on 02/19 PM. Random levels: 02/20 @ 1032 - 25.1 mcg/mL 02/21 @ 0641 - 18 mcg/mL 02/21 @ 8 - 18.9 mcg/mL 02/21 @ 2240 - 19.1 mcg/mL ?? 02/22 @ 0615 - 16.5 mcg/mL 02/21: Patient in HERSON, SCr continues to worsen, 1.87 mg/dL today. Vancomycin was held on 02/20. Last dose was administered 02/19 @ 1999. Random level this morning resulted at 18 mcg/mL. Will administer one time doses based on random levels until HERSON resolves. Discussed plan with Hospitalist. 02/20: SCr 1.77 mg/dL this morning (significant elevation from yesterday 1.19 mg/dL). Significant increase in WBC today as well (9 -> 17.3) Originally did not plan a level for today, but will obtain additional random level in light of these findings. Chest x-ray shows possible aspiration pneumonitis - Unasyn initiated overnight. 02/18: ID consulted, 6 weeks of vancomycin/rifampin therapy. Reviewed random level this AM, Predicted to achieve steady state AUC 542mg/L.hr and ss trough 16 mcg/mL. Continue vancomycin 1500mg Q24H. Recheck level in 5-7 days, unless there is significant changes in serum creatinine. 02/15: Random level drawn this AM suggestive that current vancomycin regimen (1500mg Q24H) remains appropriate to target optimal AUC; low probability of nephrotoxicity at 11%. Renal labs otherwise stable. Plan to continue through 02/17 dose, per Dr Gutierrez. Refer to previous notes for additional background. Plan Vancomycin * 750 mg IV q24h * Random level ordered for 02/26 with AM labs Rifampin * 600 mg PO daily Zosyn * 4.5g IV q8 (extended infusion) Pharmacy will continue to follow and will adjust dose/frequency as necessary. Thank you.
--- NOTE | 2023-02-24 10:12 | Hospitalist Progress Note ---
Date of Service February 24, 2023 Assessment & Plan (1) Septic shock: (2) Acute hypernatremia: (3) Acute renal failure (ARF): (4) Goals of care, counseling/discussion: (5) Anemia: (6) Wounds and injuries: Plan Patient is an 87 yr male presents from [facility] with septic shock, renal failure. Revoked hospice for ED admission per request who was traveling from [facility]. Pt was intubated. Admitting team confirmed No CPR, defibrillation, cardioversion in the event of cardiac arrest. Palliative care evaluated. He is being managed for the following: Fever- continued to spike fever despite being on vanc/unasyn/rifampin. Blood clx is so far negative. Changed unasyn to zosyn, renally dosed and monitor. Anemia: Hemoglobin >7, no active bleeding. PBS without Schistocytes, normal reticulocyte count, hemolysis less likely. Iron deficiency present. Poor nutrition does not help. Cont iron supplementation and proper nutrition. Septic Shock with staph (BLADDER BLOWER not lugdunensis) bacteremia: possible sources include skin vs pneumonia and UTI with indwelling Villasenor. Weaned off pressors and extubated 02/06. Pansensitive Klebsiella in sputum. Liliana in sputum likely a contaminant Urine Culture: Noncontributory (H/O chronic Villasenor, recent h/o of UTI) ECHO: EF 50 to 55%, bioprosthetic aortic valve, mild mitral regurgitation, grade 2 diastolic dysfunction, mild tricuspid regurgitation High risk for aspiration pneumonia. Known recent month long admission with urosepsis; was recently on Hospice Repeat blood cultures were negative. Initially admitted on Vanc/Zosyn 02/03 Plan will be total 6 weeks of Vancomycin with rifampin added from 02/16/23 with surveillance cultures (2 sets from the periphery) 5-7 days post completion of abx therapy. Severe protein calorie malnutrition H/O Esophageal dysmotility Dysphagia: Speech therapy involved in his care this admission. Palliative care involved, Patient's POA now agreeing to no escalation of care (pressors, CPR, intubation). She declines COURT. However, POA would like PEG feeds. PEG placed 02/14-tolerating feeds without residual Remains high risk for aspiration [facility] cannot accept him back with PEG in place PEG feed held due to vomiting, resume peg feed at low rate, and upto 50% of goal for now. Consider pr bowel regimen to help w/ constipation as needed, moved large bowel per RN. Keep HOB at 30 degrees/aspiration precautions. Acute hypoxic respiratory failure Secondary to left lower lobe pneumonia likely due to aspiration Was weaned down to 2L NC O2, had vomiting and aspiration event 02/19, TF was held, and unasyn added 02/20. Now on 12 L O2 via oxymask, wean down O2 as james. Acute metabolic encephalopathy/known Dementia Secondary to above, in setting of Lewy body dementia and Hypernatremia (Na was 164 on admission 02/03), sodium now normal - 144 CT head: No significant change compared to the prior study. No acute in tracranial abnormality. Elev. troponin: Troponin level 400's on admission - likely type II IA, secondary to above. No further workup at this time. Acute Hypernatremia: resolved. Acute Renal Failure: present at admission which was resolved. Had another bump in Cr on 02/20, d/w nephro - no ivf/avoid nephrotoxics/hold vanc until acceptable trough level achieved. appreciate recs. Pt's doesn't want villasenor cath, c/w intermittent st cath to avoid obstruction. Nephro managing Chronic Villasenor/urinary retention: Villasenor was replaced this admission. doesn't want villasenor, TOV done, currently on intermittent cath- would write for three times daily on discharge and [facility] [place] aware of his need for follow-up. would like to consider TURP or other prostate surgery in the future For now, will cont with alpha-ban. The only one that will go through the PEG is terazosin This capsule has to be melted in warm water for 15 minutes and then given as a solution through the PEG. WOUNDS: Multiple sites of ulceration with necrosis There are multiple pressure sites for skin breakdown This was a possible source for his sepsis this admission Wound care nurse consulted. Cont keeping him off these sites. 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 failure, aspiration Currently in bed, in no acute distress, however still on OxyMask He does not respond to voice or touch, keeps his eyes closed today Prognosis remains poor Review of Systems Review of Systems: Unobtainable due to cognitive status Physical Exam Physical Exam: General: Frail elderly male, chronically ill-appearing lethargic, minimally responsive Chest: +rhonchi, + min. crackles, no wheezing CVS: Regular rate and rhythm, normal heart sounds, no murmur Abdomen: Soft, non tender, not distended, normal bowel sounds. PEG tube in place with tube feed Neuro: Lethargic, minimally responsive Extremities: + UE edema noted, contracted/stiff extremities Skin: Pressure ulcers noted Results & Data Results & Data Vital Signs (Past 12 Hours) Vital Signs Temp Pulse Resp BP Pulse Ox O2 Del Method O2 Flow Rate 02/24/23 09:02 96 Oxymask 12 02/24/23 08:04 37.1 C 75 18 101/61 91 Oxymask 12 Laboratory Results 02/24/23 02/24/23 02/24/23 Range/Units 05:46 05:46 05:46 WBC 11.17 H (4.8-10.8) K/ul RBC 2.46 L (4.70-6.10) M/uL Hgb 7.4 L (14.0-18.0) g/dl Hct 22.6 L (42.0-52.0) % MCV 91.9 (80.0-100.0) fL MCH 30.1 (25.0-34.0) pg MCHC 32.7 (32.0-36.0) g/dL RDW Std Deviation 49.2 H (36.4-46.3) fL RDW Coeff of Lacey 14.6 H (11.5-14.5) % Plt Count 263 (130-400) K/uL MPV 11.4 (9.4-12.4) fL Sodium 144 (136-145) mmol/L Potassium 4.0 (3.5-5.1) mmol/L Chloride 106 (98-107) mmol/L Carbon Dioxide 30 (21-32) mmol/L Anion Gap 8 (3-11) BUN 52 H (6-23) mg/dl Creatinine 1.98 H (0.6-1.4) mg/dl Est Cr Clr Drug Dosing 31.4 ml/min Est GFR ( Amer) 34.2 ml/min Est GFR (Non-Af Amer) 29.5 ml/min BUN/Creatinine Ratio 26.3 H (10-20) Glucose 141 H (70-99(Fasting)) mg/dl Calcium 7.0 L (8.6-10.3) mg/dl Phosphorus 3.1 (2.5-4.9) mg/dl Magnesium 2.1 (1.7-2.4) mg/dl Random Vancomycin 16.9 (10-20) mcg/ml Medications Administered Current Inpatient Medications Acetaminophen (Acetaminophen 325 Mg Tab) 650 mg PEG Q4H PRN PRN Reason: Pain or Fever Stop: 03/13/23 10:34 Last Admin: 02/22/23 08:23 Dose: 650 mg Albuterol (Albut/Ipratrop 3mg/0.5mg Neb 3 Ml Vial) 3 ml NEB Q4R PRN; Protocol PRN Reason: Shortness Of Breath Or Wheezing Stop: 03/22/23 02:59 Last Admin: 02/19/23 23:20 Dose: 3 ml Aspirin (Aspirin 81 Mg Chew) 81 mg PEG QAM [facility] Stop: 03/19/23 08:59 Last Admin: 02/24/23 09:04 Dose: 81 mg Atorvastatin Calcium (Atorvastatin 20 Mg Tab) 20 mg PEG QPM [facility] Stop: 03/18/23 20:59 Last Admin: 02/23/23 20:21 Dose: 20 mg Carbidopa/Levodopa (Carbidopa/Levodopa 25/100mg Tab) 1 tab PEG BID FERNIE Stop: 03/18/23 20:59 Last Admin: 02/24/23 09:04 Dose: 1 tab Donepezil HCl (Donepezil Hcl 5 Mg Tab) 5 mg PO QAM [facility] Stop: 03/13/23 08:59 Last Admin: 02/17/23 08:21 Dose: 5 mg Glucagon (Glucagon For Inj 1 Mg Vial) 1 mg SQ UD PRN; Protocol PRN Reason: Hypoglycemia Protocol Stop: 03/06/23 02:57 Glycopyrrolate (Glycopyrrolate 0.2 Mg/Ml Vial) 0.2 mg IV Q3H PRN PRN Reason: secretions Stop: 03/05/23 16:47 Last Admin: 02/21/23 17:55 Dose: 0.2 mg Heparin Sodium (Beef Lung) (Heparin 10 Unit/Ml 5 Ml Flush) 5 ml FLUSH PRN PRN PRN Reason: Flush Stop: 03/08/23 16:07 Last Admin: 02/24/23 02:53 Dose: 5 ml Pantoprazole Sodium 40 mg/ (Syringe) 10 mls @ 5 mls/min IV BID FERNIE Stop: 03/22/23 08:59 Last Admin: 02/24/23 09:04 Dose: 5 mls/min Piperacillin Sod/Tazobactam (Sod 4.5 gm/ Dextrose) 120 mls @ 30 mls/hr IV Q8H [facility]ERNIE; Protocol Stop: 03/01/23 21:59 Last Infusion: 02/24/23 09:16 Dose: Infused Vancomycin HCl 750 mg/ (Dextrose) 265 mls @ 200 mls/hr IV DAILY@1000 FERNIE; Protocol Stop: 03/17/23 09:59 Lansoprazole (Lansoprazole 30 Mg Soltab) 30 mg PEG QAM [facility] Stop: 03/19/23 08:59 Last Admin: 02/21/23 08:47 Dose: 30 mg Miscellaneous Information (Vancomycin Consult Active) 1 each N/A UD PRN PRN Reason: Consult Stop: 03/20/23 06:47 Nutritional Formula (Nutren Liqd 2.0 1,000 Ml Bag) 1,000 ml PEG UD [facility]ERN[facility]; Protocol Stop: 03/22/23 15:44 Last Admin: 02/23/23 06:31 Dose: 1,000 ml Polyethylene Glycol (Polyethylene (Miralax) 17 Gm Pack) 17 gm PEG DAILY PRN PRN Reason: Constipation Stop: 03/05/23 15:43 Last Admin: 02/23/23 09:31 Dose: 17 gm Rifampin (Rifampin 600mg/60ml Udp) 600 mg PEG Q24H [facility] Stop: 03/07/23 17:59 Last Admin: 02/23/23 17:52 Dose: 600 mg Sterile Water (Tube Feeding Water Flush) 150 ml PEG Q4H [facility] Stop: 03/24/23 11:14 Last Admin: 02/24/23 07:15 Dose: 150 ml Terazosin HCl (Terazosin Hcl 1 Mg Cap) 2 mg PO HS [facility] Stop: 03/22/23 20:59 Last Admin: 02/23/23 20:21 Dose: 2 mg
[2023-02-24] MEDS: VANCOMYCIN HCL 750 MG in DEXTROSE 5% 250 ML IV SCH (10:53)
[2023-02-24] MEDS: NUTREN LIQD 2.0 1,000 ML BAG PEG SCH (13:05)
[2023-02-24] MEDS: RIFAMPIN PEG SCH (18:03)
[2023-02-24] MEDS: ATORVASTATIN 20 MG TAB PEG SCH (20:02)
[2023-02-24] MEDS: TERAZOSIN HCL 1 MG CAP PO SCH (20:11)
[2023-02-24] MEDS ORDERED: ALBUMIN 25% 25 GM/100 ML VIAL IV ONE (20:30)
[2023-02-25] MEDS: TUBE FEEDING WATER FLUSH PEG SCH ×6 (03:15→23:00)
[2023-02-25] MEDS: PIPERACILLIN/TAZOBACTAM 4.5 GM CI (over 4 hours) IV SCH ×3 (05:57→21:17)
[2023-02-25] MEDS: CARBIDOPA/LEVODOPA 25/100MG TAB PEG SCH ×2 (08:14→20:10)
[2023-02-25] MEDS: PANTOprazole 40 MG in SYRINGE 0 ML IV SCH ×2 (08:15→20:09)
[2023-02-25] MEDS: ASPIRIN 81 MG CHEW PEG SCH (08:15)
[2023-02-25 09:24] LABS: BUN Creatinine Ratio 25.1 (10-20); Calcium 6.9 mg/dl (8.6-10.3); Creatinine Clr Calc Pharmacy 30.6 ml/min; Est GFR (African American) 33.2 ml/min; Est GFR (Non-African American) 28.6 ml/min; Potassium 3.8 mmol/L (3.5-5.1)
[2023-02-25] MEDS: VANCOMYCIN HCL 750 MG in DEXTROSE 5% 250 ML IV SCH (09:32)
[2023-02-25] MEDS: CEFEPIME 2,000 MG in SYRINGE 0 ML IV SCH (14:39)
[2023-02-25] MEDS: RIFAMPIN PEG SCH (17:08)
--- NOTE | 2023-02-25 18:08 | Hospitalist Progress Note ---
Date of Service February 25, 2023 Assessment & Plan (1) Septic shock: (2) Acute hypernatremia: (3) Acute renal failure (ARF): (4) Goals of care, counseling/discussion: (5) Anemia: (6) Wounds and injuries: Plan Patient is an 87 yr male presents from [facility] with septic shock, renal failure. Revoked hospice for ED admission per request who was traveling from [facility]. Pt was intubated. Admitting team confirmed No CPR, defibrillation, cardioversion in the event of cardiac arrest. Palliative care evaluated. He is being managed for the following: Fever- continued to spike fever despite being on vanc/unasyn/rifampin. Blood clx is so far negative. Changed unasyn to zosyn, renally dosed and monitor. No more fever since eighth of this month We will continue current antibiotic We will order blood cultures as advised Anemia: Hemoglobin >7, no active bleeding. PBS without Schistocytes, normal reticulocyte count, hemolysis less likely. Iron deficiency present. Poor nutrition does not help. Cont iron supplementation and proper nutrition. Hemoglobin is 7.4 as of 02/25/2023 Septic Shock with staph (KEEPER HELPER not lugdunensis) bacteremia: possible sources include skin vs pneumonia and UTI with indwelling Villasenor. Weaned off pressors and extubated 02/06. Pansensitive Klebsiella in sputum. Liliana in sputum likely a contaminant Urine Culture: Noncontributory (H/O chronic Villasenor, recent h/o of UTI) ECHO: EF 50 to 55%, bioprosthetic aortic valve, mild mitral regurgitation, grade 2 diastolic dysfunction, mild tricuspid regurgitation High risk for aspiration pneumonia. Known recent month long admission with urosepsis; was recently on Hospice Repeat blood cultures were negative. Initially admitted on Vanc/Zosyn 02/03 Plan will be total 6 weeks of Vancomycin with rifampin added from 02/16/23 with surveillance cultures (2 sets from the periphery) 5-7 days post completion of abx therapy. Severe protein calorie malnutrition H/O Esophageal dysmotility Dysphagia: Speech therapy involved in his care this admission. Palliative care involved, Patient's POA now agreeing to no escalation of care (pressors, CPR, intubation). She declines COURT. However, POA would like PEG feeds. PEG placed 02/14-tolerating feeds without residual Remains high risk for aspiration [facility] cannot accept him back with PEG in place PEG feed held due to vomiting, resume peg feed at low rate, and upto 50% of goal for now. Consider pr bowel regimen to help w/ constipation as needed, moved large bowel per RN. Keep HOB at 30 degrees/aspiration precautions. Acute hypoxic respiratory failure Secondary to left lower lobe pneumonia likely due to aspiration Was weaned down to 2L NC O2, had vomiting and aspiration event 02/19, TF was held, and unasyn added 02/20. Now on 12 L O2 via oxymask, wean down O2 as james. Acute metabolic encephalopathy/known Dementia Secondary to above, in setting of Lewy body dementia and Hypernatremia (Na was 164 on admission 02/03), sodium now normal - 144 CT head: No significant change compared to the prior study. No acute intracranial abnormality. Elev. troponin: Troponin level 400's on admission - likely type II AR, secondary to above. No further workup at this time. Acute Hypernatremia: resolved. Acute Renal Failure: present at admission which was resolved. Had another bump in Cr on 02/20, d/w nephro - no ivf/avoid nephrotoxics/hold vanc until acceptable trough level achieved. appreciate recs. Pt's doesn't want villasenor cath, c/w intermittent st cath to avoid obstruction. Nephro managing Chronic Villasenor/urinary retention: Villasenor was replaced this admission. doesn't want villasenor, TOV done, currently on intermittent cath- would write for three times daily on discharge and [facility] is aware of his need for follow-up. would like to consider TURP or other prostate surgery in the future For now, will cont with alpha-ban. The only one that will go through the PEG is terazosin This capsule has to be melted in warm water for 15 minutes and then given as a solution through the PEG. WOUNDS: Multiple sites of ulceration with necrosis There are multiple pressure sites for skin breakdown This was a possible source for his sepsis this admission Wound care nurse consulted. 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 Aortic stenosis S/P Bioprosthetic AVR TAA S/P surgery PFO as per records SSS sp PPM not on anticoagulation secondary to bleeding/fall risk H/O TIA Continue home medications DVT ppx: Heparin SQ Code Status-DNI/DNR Guarded prognosis Discussed with the in detail and answered all of her questions She will try to do passive movements of the extremities of the patient Admission and Anticipated Discharge Date Admission Date: February 03, 2023 Subjective 02/25/2023 Patient was seen and examined in presence of the He remains nonverbal but stable Looks brighter today as per the Not in any distress Review of Systems Review of Systems: Unobtainable due to cognitive status Physical Exam Physical Exam: Lying in bed comfortably Constitutional: well developed, well nourished, + ill appearing and average body habitus Eyes: PERRL, conjunctivae normal, anicteric sclerae ENMT: external ear and nose normal, oropharynx normal Neck: trachea midline, no thyromegaly Respiratory: no respiratory distress Auscultation: + diminished lung sounds; no crackles Cardiovascular: Rate/Rhythm: regular rate and regular rhythm; not tachycardic Heart Sounds: normal S1 and normal S2; no murmur Extremities: + edema (Trace edema bilaterally) Gastrointestinal (Abdomen): Inspection/Auscultation: normal bowel sounds; abdomen not distended Percussion/Palpation: abdomen soft; abdomen nontender PEG tube in situ Musculoskeletal: Flexural deformities involving the extremities Skin: Bedsores involving the buttocks and also early stages in the heels Neurologic: Alert and awake. Nonverbal. Not moving extremities on command Lymphatic: no cervical or axillary lymphadenopathy Results & Data Results & Data Vital Signs (Past 12 Hours) Vital Signs Temp Pulse Resp BP Pulse Ox O2 Del Method O2 Flow Rate 02/25/23 15:39 36.7 C 62 16 110/62 99 Oxymask 12 02/25/23 07:45 Oxymask 12 02/25/23 07:56 37 C 68 30 H 113/46 L 98 Oxymask 12 Laboratory Results [facility] 02/25/23 08:23 Sodium 143 Potassium 3.8 Chloride 107 Carbon Dioxide 31 BUN 51 H Creatinine 2.03 H Glucose 180 H Calcium 6.9 L Medications Administered Current Inpatient Medications Acetaminophen (Acetaminophen 325 Mg Tab) 650 mg PEG Q4H PRN PRN Reason: Pain or Fever Stop: 03/13/23 10:34 Last Admin: 02/22/23 08:23 Dose: 650 mg Albuterol (Albut/Ipratrop 3mg/0.5mg Neb 3 Ml Vial) 3 ml NEB Q4R PRN; Protocol PRN Reason: Shortness Of Breath Or Wheezing Stop: 03/22/23 02:59 Last Admin: 02/19/23 23:20 Dose: 3 ml Aspirin (Aspirin 81 Mg Chew) 81 mg PEG QAM [facility] Stop: 03/19/23 08:59 Last Admin: 02/25/23 08:15 Dose: 81 mg Atorvastatin Calcium (Atorvastatin 20 Mg Tab) 20 mg PEG QPM [facility] Stop: 03/18/23 20:59 Last Admin: 02/24/23 20:02 Dose: 20 mg Carbidopa/Levodopa (Carbidopa/Levodopa 25/100mg Tab) 1 tab PEG BID [facility]ERNIE Stop: 03/18/23 20:59 Last Admin: 02/25/23 08:14 Dose: 1 tab Donepezil HCl (Donepezil Hcl 5 Mg Tab) 5 mg PO QAM [facility] Stop: 03/13/23 08:59 Last Admin: 02/17/23 08:21 Dose: 5 mg Glucagon (Glucagon For Inj 1 Mg Vial) 1 mg SQ UD PRN; Protocol PRN Reason: Hypoglycemia Protocol Stop: 03/06/23 02:57 Glycopyrrolate (Glycopyrrolate 0.2 Mg/Ml Vial) 0.2 mg IV Q3H PRN PRN Reason: secretions Stop: 03/05/23 16:47 Last Admin: 02/21/23 17:55 Dose: 0.2 mg Heparin Sodium (Beef Lung) (Heparin 10 Unit/Ml 5 Ml Flush) 5 ml FLUSH PRN PRN PRN Reason: Flush Stop: 03/08/23 16:07 Last Admin: 02/25/23 02:36 Dose: 5 ml Pantoprazole Sodium 40 mg/ (Syringe) 10 mls @ 5 mls/min IV BID FERNIE Stop: 03/22/23 08:59 Last Admin: 02/25/23 08:15 Dose: 5 mls/min Piperacillin Sod/Tazobactam (Sod 4.5 gm/ Dextrose) 120 mls @ 30 mls/hr IV Q8H [facility]ERNIE; Protocol Stop: 03/01/23 21:59 Last Admin: 02/25/23 14:20 Dose: 30 mls/hr Vancomycin HCl 750 mg/ (Dextrose) 265 mls @ 200 mls/hr IV DAILY@1000 [facility]ERNIE; Protocol Stop: 03/17/23 09:59 Last Infusion: 02/25/23 10:59 Dose: Infused Cefepime HCl 2,000 mg/ Syringe 20 mls @ 5 mls/min IV Q12H [facility]; Protocol Stop: 03/01/23 13:59 Last Admin: 02/25/23 14:39 Dose: 5 mls/min Lansoprazole (Lansoprazole 30 Mg Soltab) 30 mg PEG QAM [facility] Stop: 03/19/23 08:59 Last Admin: 02/21/23 08:47 Dose: 30 mg Miscellaneous Information (Vancomycin Consult Active) 1 each N/A UD PRN PRN Reason: Consult Stop: 03/20/23 06:47 Nutritional Formula (Nutren Liqd 2.0 1,000 Ml Bag) 1,000 ml PEG UD [facility]; Protocol Stop: 03/22/23 15:44 Last Admin: 02/24/23 13:05 Dose: 1,000 ml Polyethylene Glycol (Polyethylene (Miralax) 17 Gm Pack) 17 gm PEG DAILY PRN PRN Reason: Constipation Stop: 03/05/23 15:43 Last Admin: 02/23/23 09:31 Dose: 17 gm Rifampin (Rifampin 600mg/60ml Udp) 600 mg PEG Q24H [facility] Stop: 03/07/23 17:59 Last Admin: 02/25/23 17:08 Dose: 600 mg Sterile Water (Tube Feeding Water Flush) 200 ml PEG Q4H [facility] Stop: 03/27/23 14:59 Last Admin: 02/25/23 15:14 Dose: 200 ml Terazosin HCl (Terazosin Hcl 1 Mg Cap) 2 mg PO HS [facility] Stop: 03/22/23 20:59 Last Admin: 02/24/23 20:11 Dose: Not Given
[2023-02-25] MEDS: TERAZOSIN HCL 1 MG CAP PO SCH (20:09)
[2023-02-25] MEDS: ATORVASTATIN 20 MG TAB PEG SCH (20:10)
[2023-02-26] MEDS: CEFEPIME 2,000 MG in SYRINGE 0 ML IV SCH ×2 (01:18→15:15)
[2023-02-26] MEDS: TUBE FEEDING WATER FLUSH PEG SCH ×5 (03:00→18:35)
[2023-02-26] MEDS: PIPERACILLIN/TAZOBACTAM 4.5 GM CI (over 4 hours) IV SCH ×3 (05:25→21:28)
[2023-02-26] MEDS: CARBIDOPA/LEVODOPA 25/100MG TAB PEG SCH ×2 (07:43→20:16)
[2023-02-26] MEDS: ASPIRIN 81 MG CHEW PEG SCH (07:43)
[2023-02-26] MEDS: PANTOprazole 40 MG in SYRINGE 0 ML IV SCH ×2 (07:43→20:17)
[2023-02-26 07:54] LABS: Basophils # (auto) 0.02 K/uL (0-0.2); Basophils % (auto) 0.2 %; Eosinophils # (auto) 0.51 K/uL (0-0.50); Eosinophils % (auto) 5.4 %; Hematocrit (blood only) 21.8 % (42.0-52.0); Hemoglobin 7.2 g/dl (14.0-18.0); Immature Granulocytes # (auto) 0.07 K/uL (0.01-0.20); Immature Granulocytes % (auto) 0.7 %; Lymphocytes # (auto) 0.92 K/uL (1.2-3.4); Lymphocytes % (auto) 9.8 %; Mean Corpuscular Hemoglobin 30.4 pg (25.0-34.0); Mean Platelet Volume 10.8 fL (9.4-12.4); Monocytes # (auto) 0.93 K/uL (0.11-0.59); Monocytes % (auto) 9.9 %; Neutrophils # (auto) 6.94 K/uL (1.40-6.50); Platelet Count 279 K/uL (130-400); RDW Coefficient of Variation 14.7 % (11.5-14.5); RDW Standard Deviation 49.3 fL (36.4-46.3); Red Blood Count 2.37 M/uL (4.70-6.10); White Blood Count 9.39 K/ul (4.8-10.8)
[2023-02-26 08:16] LABS: Albumin Globulin Ratio 0.6 (0.9-2); BUN Creatinine Ratio 24.9 (10-20); Bilirubin,Total 0.5 mg/dl (0.2-1.0); Calcium 6.9 mg/dl (8.6-10.3); Creatinine Clr Calc Pharmacy 32.2 ml/min; Est GFR (African American) 35.3 ml/min; Est GFR (Non-African American) 30.4 ml/min; Globulin 3.2 gm/dl (2.5-4.0); Phosphorus 2.5 mg/dl (2.5-4.9); Potassium 4.1 mmol/L (3.5-5.1); Total Protein 5.2 gm/dl (6.0-8.3)
[2023-02-26 08:33] LABS: Ovalocytes 1+; Polychromasia 1+
[2023-02-26] MEDS ORDERED: VANCOMYCIN LEVEL ONE (09:30)
[2023-02-26] MEDS: VANCOMYCIN HCL 750 MG in DEXTROSE 5% 250 ML IV SCH (10:07)
--- NOTE | 2023-02-26 10:40 | Pharmacy Report ---
Pharmacy PK ABX Note - Date of Service February 26, 2023 - Assessment and Plan Assessment 87 year old M receiving IV cefepime, vancomycin and PO rifampin for treatment of severe sepsis secondary to bacteremia with HAP/aspiration PNA. 02/26/23 Day 24 of antimicrobial therapy. SCr is stable. Zosyn changed to cefepime yesterday. Random level of 16.2 mcg/mL is stable. Continue current dosing. 02/24 Day # 22 of antimicrobial therapy. SCr mostly stable, with very slight increase only. Will schedule vancomycin but obtain early level in 48 hours 2nd risk of further HERSON with Zosyn plus vanco. May need to re-assess tomorrow AM if SCr changes significantly. 02/23:Scr remains consistent again today 1.89. Random level this morning was 16.9, was 16.5 yesterday morning prior to one time dose. Will repeat same one time dose today and obtain a random level tomorrow. If scr and level continue to remain consistent could consider this dose on a scheduled basis. Unasyn was changed to zosyn yesterday. 02/22: SCr remains elevated at 1.87 mg/dL. Random level obtained last evening demonstrated no clearance of vancomycin. This level was repeated out of concern for error. Repeat level slightly increased, which is unusual given last dose of vanco was administered on 02/19 PM. Random levels: 02/20 @ 1032 - 25.1 mcg/mL 02/21 @ 0641 - 18 mcg/mL 02/21 @ 2028 - 18.9 mcg/mL 02/21 @ 2240 - 19.1 mcg/mL ?? 02/22 @ 0615 - 16.5 mcg/mL 02/21: Patient in HERSON, SCr continues to worsen, 1.87 mg/dL today. Vancomycin was held on 02/20. Last dose was administered 02/19 @ 1999. Random level this morning resulted at 18 mcg/mL. Will administer one time doses based on random levels until HERSON resolves. Discussed plan with Hospitalist. 02/20: SCr 1.77 mg/dL this morning (significant elevation from yesterday 1.19 mg/dL). Significant increase in WBC today as well (9 -> 17.3) Originally did not plan a level for today, but will obtain additional random level in light of these findings. Chest x-ray shows possible aspiration pneumonitis - Unasyn initiated overnight. 02/18: ID consulted, 6 weeks of vancomycin/rifampin therapy. Reviewed random level this AM, Predicted to achieve steady state AUC 542mg/L.hr and ss trough 16 mcg/mL. Continue vancomycin 1500mg Q24H. Recheck level in 5-7 days, unless there is significant changes in serum creatinine. 02/15: Random level drawn this AM suggestive that current vancomycin regimen (1500mg Q24H) remains appropriate to target optimal AUC; low probability of nephrotoxicity at 11%. Renal labs otherwise stable. Plan to continue through 02/17 dose, per Dr Gutierrez. Refer to previous notes for additional background. Plan Vancomycin * 750 mg IV q24h Rifampin * 600 mg PO daily Cefepime * 2 gm IV q12 (target dose of 2 gm IV q8) Pharmacy will continue to follow and will adjust dose/frequency as necessary. Thank you.
--- NOTE | 2023-02-26 17:26 | Hospitalist Progress Note ---
Date of Service February 26, 2023 Assessment & Plan (1) Septic shock: (2) Acute hypernatremia: (3) Acute renal failure (ARF): (4) Goals of care, counseling/discussion: (5) Anemia: (6) Wounds and injuries: Plan Patient is an 87 yr male presents from [facility] with septic shock, renal failure. Revoked hospice for ED admission per request who was traveling from [facility]. Pt was intubated. Admitting team confirmed No CPR, defibrillation, cardioversion in the event of cardiac arrest. Palliative care evaluated. He is being managed for the following: Fever- continued to spike fever despite being on vanc/unasyn/rifampin. Blood clx is so far negative. Changed unasyn to zosyn, renally dosed and monitor. No more fever since eighth of this month We will continue current antibiotic We will order blood cultures as advised No more fever and or signs of infection Anemia: Hemoglobin >7, no active bleeding. PBS without Schistocytes, normal reticulocyte count, hemolysis less likely. Iron deficiency present. Poor nutrition does not help. Cont iron supplementation and proper nutrition. 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 Weaned off pressors and extubated 02/06. Pansensitive Klebsiella in sputum. Liliana in sputum likely a contaminant Urine Culture: Noncontributory (H/O chronic Villasenor, recent h/o of UTI) ECHO: EF 50 to 55%, bioprosthetic aortic valve, mild mitral regurgitation, grade 2 diastolic dysfunction, mild tricuspid regurgitation High risk for aspiration pneumonia. Known recent month long admission with urosepsis; was recently on Hospice Repeat blood cultures were negative. Initially admitted on Vanc/Zosyn 02/03 Plan will be total 6 weeks of Vancomycin with rifampin added from 02/16/23 with surveillance cultures (2 sets from the periphery) 5-7 days post completion of abx therapy. Continue current antibiotics and will change according to the plan Severe protein calorie malnutrition H/O Esophageal dysmotility Dysphagia: Speech therapy involved in his care this admission. Palliative care involved, Patient's POA now agreeing to no escalation of care (pressors, CPR, intubation). She declines COURT. However, POA would like PEG feeds. PEG placed 02/14-tolerating feeds without residual Remains high risk for aspiration Gely Melissa cannot accept him back with PEG in place PEG feed held due to vomiting, resume peg feed at low rate, and upto 50% of goal for now. Consider pr bowel regimen to help w/ constipation as needed, moved large bowel per RN. Keep HOB at 30 degrees/aspiration precautions. No problem with the PEG feeding Acute hypoxic respiratory failure Secondary to left lower lobe pneumonia likely due to aspiration Was weaned down to 2L NC O2, had vomiting and aspiration event 02/19, TF was held, and unasyn added 02/20. Now on 12 L O2 via oxymask, wean down O2 as james. Still requiring high flow oxygen to maintain saturation We will repeat chest x-ray tomorrow Acute metabolic encephalopathy/known Dementia Secondary to above, in setting of Lewy body dementia and Hypernatremia (Na was 164 on admission 02/03), sodium now normal - 144 CT head: No significant change compared to the prior study. No acute intracranial abnormality. Elev. troponin: Troponin level 400's on admission - likely type II MD, secondary to above. No further workup at this time. Acute Hypernatremia: resolved. Acute Renal Failure: present at admission which was resolved. Had another bump in Cr on 02/20, d/w nephro - no ivf/avoid nephrotoxics/hold vanc until acceptable trough level achieved. appreciate recs. Pt's doesn't want villasenor cath, c/w intermittent st cath to avoid obstruction. Nephro managing Chronic Villasenor/urinary retention: Villasenor was replaced this admission. doesn't want villasenor, TOV done, currently on intermittent cath- would write for three times daily on discharge and [facility] urology is aware of his need for follow-up. would like to consider TURP or other prostate surgery in the future For now, will cont with alpha-ban. The only one that will go through the PEG is terazosin This capsule has to be melted in warm water for 15 minutes and then given as a solution through the PEG. WOUNDS: Multiple sites of ulceration with necrosis There are multiple pressure sites for skin breakdown This was a possible source for his sepsis this admission Wound care nurse consulted. 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 Aortic stenosis S/P Bioprosthetic AVR TAA S/P surgery PFO as per records SSS sp PPM not on anticoagulation secondary to bleeding/fall risk H/O TIA Continue home medications DVT ppx: Heparin SQ Code Status-DNI/DNR Guarded prognosis Discussed with the in detail and answered all of her questions She will try to do passive movements of the extremities of the patient Admission and Anticipated Discharge Date Admission Date: February 03, 2023 Subjective 02/25/2023 Patient was seen and examined in presence of the He remains nonverbal but stable Looks brighter today as per the Not in any distress 02/26/2023 The patient was seen and examined in medical floor He has been brighter today and not in any acute distress Review of Systems Review of Systems: Unobtainable due to cognitive status Physical Exam Physical Exam: Lying in bed comfortably Constitutional: well developed, well nourished, + ill appearing and average body habitus Eyes: PERRL, conjunctivae normal, anicteric sclerae ENMT: external ear and nose normal, oropharynx normal Neck: trachea midline, no thyromegaly Respiratory: no respiratory distress Auscultation: + diminished lung sounds; no crackles Cardiovascular: Rate/Rhythm: regular rate and regular rhythm; not tachycardic Heart Sounds: normal S1 and normal S2; no murmur Extremities: + edema (Trace edema bilaterally) Gastrointestinal (Abdomen): Inspection/Auscultation: normal bowel sounds; abdomen not distended Percussion/Palpation: abdomen soft; abdomen nontender Musculoskeletal: Has flexural deformities involving the extremities. And DC use atrophy of the muscles Neurologic: Alert and awake. Nonverbal. Minimal movements of the upper extremities and almost none with the lower extremities Lymphatic: no cervical or axillary lymphadenopathy Results & Data Results & Data Vital Signs (Past 12 Hours) Vital Signs Temp Pulse Resp BP Pulse Ox O2 Del Method O2 Flow Rate 02/26/23 15:23 36.5 C 73 20 117/59 L 99 Oxymask 12 02/26/23 08:00 Oxymask 12 02/26/23 07:50 37.0 C 72 18 107/59 L 96 Oxymask 12 Laboratory Results Short CBC 02/26/23 Range/Units 07:33 WBC 9.39 (4.8-10.8) K/ul Hgb 7.2 L (14.0-18.0) g/dl Hct 21.8 L (42.0-52.0) % Plt Count 279 (130-400) K/uL BMP 02/26/23 07:33 Sodium 143 Potassium 4.1 Chloride 106 Carbon Dioxide 32 BUN 48 H Creatinine 1.93 H Glucose 155 H Calcium 6.9 L Liver Function 02/26/23 Range/Units 07:33 Total Bilirubin 0.5 (0.2-1.0) mg/dl AST 19 (13-39) U/L ALT 11 (7-52) U/L Alkaline Phosphatase 122 H (34-104) U/L Albumin 2.0 L (3.4-5.0) gm/dl Medications Administered Current Inpatient Medications Acetaminophen (Acetaminophen 325 Mg Tab) 650 mg PEG Q4H PRN PRN Reason: Pain or Fever Stop: 03/13/23 10:34 Last Admin: 02/22/23 08:23 Dose: 650 mg Albuterol (Albut/Ipratrop 3mg/0.5mg Neb 3 Ml Vial) 3 ml NEB Q4R PRN; Protocol PRN Reason: Shortness Of Breath Or Wheezing Stop: 03/22/23 02:59 Last Admin: 02/19/23 23:20 Dose: 3 ml Aspirin (Aspirin 81 Mg Chew) 81 mg PEG QAM FERNIE Stop: 03/19/23 08:59 Last Admin: 02/26/23 07:43 Dose: 81 mg Atorvastatin Calcium (Atorvastatin 20 Mg Tab) 20 mg PEG QPM FERNIE Stop: 03/18/23 20:59 Last Admin: 02/25/23 20:10 Dose: 20 mg Carbidopa/Levodopa (Carbidopa/Levodopa 25/100mg Tab) 1 tab PEG BID FERNIE Stop: 03/18/23 20:59 Last Admin: 02/26/23 07:43 Dose: 1 tab Donepezil HCl (Donepezil Hcl 5 Mg Tab) 5 mg PO QAM FERNIE Stop: 03/13/23 08:59 Last Admin: 02/17/23 08:21 Dose: 5 mg Glucagon (Glucagon For Inj 1 Mg Vial) 1 mg SQ UD PRN; Protocol PRN Reason: Hypoglycemia Protocol Stop: 03/06/23 02:57 Glycopyrrolate (Glycopyrrolate 0.2 Mg/Ml Vial) 0.2 mg IV Q3H PRN PRN Reason: secretions Stop: 03/05/23 16:47 Last Admin: 02/21/23 17:55 Dose: 0.2 mg Heparin Sodium (Beef Lung) (Heparin 10 Unit/Ml 5 Ml Flush) 5 ml FLUSH PRN PRN PRN Reason: Flush Stop: 03/08/23 16:07 Last Admin: 02/25/23 02:36 Dose: 5 ml Pantoprazole Sodium 40 mg/ (Syringe) 10 mls @ 5 mls/min IV BID FERNIE Stop: 03/22/23 08:59 Last Admin: 02/26/23 07:43 Dose: 5 mls/min Piperacillin Sod/Tazobactam (Sod 4.5 gm/ Dextrose) 120 mls @ 30 mls/hr IV Q8H FERNIE; Protocol Stop: 03/01/23 21:59 Last Admin: 02/26/23 15:15 Dose: 30 mls/hr Vancomycin HCl 750 mg/ (Dextrose) 265 mls @ 200 mls/hr IV DAILY@1000 FERNIE; Protocol Stop: 03/17/23 09:59 Last Infusion: 02/26/23 11:27 Dose: Infused Cefepime HCl 2,000 mg/ Syringe 20 mls @ 5 mls/min IV Q12H FERNIE; Protocol Stop: 03/01/23 13:59 Last Admin: 02/26/23 15:15 Dose: 5 mls/min Lansoprazole (Lansoprazole 30 Mg Soltab) 30 mg PEG QAM [facility] Stop: 03/19/23 08:59 Last Admin: 02/21/23 08:47 Dose: 30 mg Miscellaneous Information (Vancomycin Consult Active) 1 each N/A UD PRN PRN Reason: Consult Stop: 03/20/23 06:47 Nutritional Formula (Nutren Liqd 2.0 1,000 Ml Bag) 1,000 ml PEG UD FERNIE; Protocol Stop: 03/22/23 15:44 Last Admin: 02/24/23 13:05 Dose: 1,000 ml Polyethylene Glycol (Polyethylene (Miralax) 17 Gm Pack) 17 gm PEG DAILY PRN PRN Reason: Constipation Stop: 03/05/23 15:43 Last Admin: 02/23/23 09:31 Dose: 17 gm Rifampin (Rifampin 600mg/60ml Udp) 600 mg PEG Q24H FERNIE Stop: 03/07/23 17:59 Last Admin: 02/25/23 17:08 Dose: 600 mg Sterile Water (Tube Feeding Water Flush) 200 ml PEG Q4H FERNIE Stop: 03/27/23 14:59 Last Admin: 02/26/23 15:15 Dose: 200 ml Terazosin HCl (Terazosin Hcl 1 Mg Cap) 2 mg PO HS FERNIE Stop: 03/22/23 20:59 Last Admin: 02/25/23 20:09 Dose: 2 mg
[2023-02-26] MEDS: RIFAMPIN PEG SCH (17:31)
[2023-02-26] MEDS: ATORVASTATIN 20 MG TAB PEG SCH (20:17)
[2023-02-26] MEDS: TERAZOSIN HCL 1 MG CAP PO SCH (20:17)
[2023-02-27] MEDS: TUBE FEEDING WATER FLUSH PEG SCH ×6 (02:19→23:04)
[2023-02-27] MEDS: CEFEPIME 2,000 MG in SYRINGE 0 ML IV SCH ×2 (02:41→14:47)
[2023-02-27] MEDS: PIPERACILLIN/TAZOBACTAM 4.5 GM CI (over 4 hours) IV SCH (06:03)
--- NOTE | 2023-02-27 08:08 | XRay Report ---
XR chest 1V portable HISTORY: 87 years-old Male r/o pneumonia acute shortness of breath COMPARISON: 02/19/2023 TECHNIQUE: AP view of the chest FINDINGS: Cardiac silhouette is enlarged. Prior median sternotomy and CABG. Left subclavian pacer. Lung apices are partially obscured by the patient's chin. No pneumothorax. Small pleural effusions with bibasilar consolidation. Pulmonary vascular congestion with interstitial coarsening. Bones of the chest appear grossly intact. IMPRESSION: 1. Cardiomegaly with pulmonary edema. 2. Small pleural effusions with mild bibasilar consolidation. ACT 112: Negative or not required by law. The above report was generated using voice recognition software. It may contain grammatical, syntax o r spelling errors. Electronically signed by: Mariano Wilcox M.D. 02/27/2023 8:07 AM
[2023-02-27 08:44] LABS: Hematocrit (blood only) 20.5 % (42.0-52.0); Hemoglobin 6.6 g/dl (14.0-18.0); Mean Corpuscular Hemoglobin 30.1 pg (25.0-34.0); Mean Corpuscular Hgb Conc 32.2 g/dL (32.0-36.0); Mean Corpuscular Volume 93.6 fL (80.0-100.0); Mean Platelet Volume 11.3 fL (9.4-12.4); Platelet Count 281 K/uL (130-400); RDW Coefficient of Variation 14.7 % (11.5-14.5); RDW Standard Deviation 49.8 fL (36.4-46.3); Red Blood Count 2.19 M/uL (4.70-6.10); White Blood Count 8.98 K/ul (4.8-10.8)
[2023-02-27] MEDS ORDERED: SODIUM CHLORIDE 0.9% 250 ML IV PRN (08:51)
[2023-02-27 08:55] LABS: Basophils # (auto) 0.02 K/uL (0-0.2); Basophils % (auto) 0.2 %; Eosinophils # (auto) 0.46 K/uL (0-0.50); Eosinophils % (auto) 5.1 %; Immature Granulocytes # (auto) 0.09 K/uL (0.01-0.20); Lymphocytes # (auto) 0.92 K/uL (1.2-3.4); Lymphocytes % (auto) 10.2 %; Monocytes # (auto) 0.76 K/uL (0.11-0.59); Monocytes % (auto) 8.5 %; Neutrophils # (auto) 6.73 K/uL (1.40-6.50); Toxic Granulation 1+
[2023-02-27 08:57] LABS: BUN Creatinine Ratio 26.7 (10-20); Calcium 6.9 mg/dl (8.6-10.3); Creatinine Clr Calc Pharmacy 31.9 ml/min; Est GFR (African American) 34.8 ml/min; Potassium 4.2 mmol/L (3.5-5.1)
[2023-02-27] MEDS: CARBIDOPA/LEVODOPA 25/100MG TAB PEG SCH ×2 (09:20→23:04)
[2023-02-27] MEDS: PANTOprazole 40 MG in SYRINGE 0 ML IV SCH ×2 (09:20→23:04)
[2023-02-27] MEDS: ASPIRIN 81 MG CHEW PEG SCH (09:21)
[2023-02-27] MEDS: VANCOMYCIN HCL 750 MG in DEXTROSE 5% 250 ML IV SCH (11:10)
[2023-02-27] MEDS ORDERED: FUROSEMIDE 40 MG/4 ML VIAL IV ONE (16:06)
--- NOTE | 2023-02-27 16:06 | Hospitalist Progress Note ---
Date of Service February 27, 2023 Assessment & Plan (1) Septic shock: (2) Acute hypernatremia: (3) Acute renal failure (ARF): (4) Goals of care, counseling/discussion: (5) Anemia: (6) Wounds and injuries: Plan Patient is an 87 yr male presents from [facility] with septic shock, renal failure. Revoked hospice for ED admission per request who was traveling from [place]. Pt was intubated. Admitting team confirmed No CPR, defibrillation, cardioversion in the event of cardiac arrest. Palliative care evaluated. He is being managed for the following: Fever- continued to spike fever despite being on vanc/unasyn/rifampin. Blood clx is so far negative. Changed unasyn to zosyn, renally dosed and monitor. No more fever since eighth of this month We will continue current antibiotic We will order blood cultures as advised No more fever and or signs of infection We will continue current antibiotic as per instruction from the ID Anemia: Hemoglobin >7, no active bleeding. PBS without Schistocytes, normal reticulocyte count, hemolysis less likely. Iron deficiency present. Poor nutrition does not help. Cont iron supplementation and proper nutrition. Hemoglobin is 7.4 as of 02/25/2023 Will check hemoglobin if it is less than 7 will transfuse Hemoglobin dropped down to 6.6 and will give 2 units of blood transfusion Septic Shock with staph (RISK ANALYST not lugdunensis) bacteremia: possible sources include skin vs pneumonia and UTI with indwelling Villasenor. Weaned off pressors and extubated 02/06. Pansensitive Klebsiella in sputum. Liliana in sputum likely a contaminant Urine Culture: Noncontributory (H/O chronic Villasenor, recent h/o of UTI) ECHO: EF 50 to 55%, bioprosthetic aortic valve, mild mitral regurgitation, grade 2 diastolic dysfunction, mild tricuspid regurgitation High risk for aspiration pneumonia. Known recent month long admission with urosepsis; was recently on Hospice Repeat blood cultures were negative. Initially admitted on Vanc/Zosyn 02/03 Plan will be total 6 weeks of Vancomycin with rifampin added from 02/16/23 with surveillance cultures (2 sets from the periphery) 5-7 days post completion of abx therapy. Continue current antibiotics and will change according to the plan Severe protein calorie malnutrition H/O Esophageal dysmotility Dysphagia: Speech therapy involved in his care this admission. Palliative care involved, Patient's POA now agreeing to no escalation of care (pressors, CPR, intubation). She declines COURT. However, POA would like PEG feeds. PEG placed 02/14-tolerating feeds without residual Remains high risk for aspiration Gely Melissa cannot accept him back with PEG in place PEG feed held due to vomiting, resume peg feed at low rate, and upto 50% of goal for now. Consider pr bowel regimen to help w/ constipation as needed, moved large bowel per RN. Keep HOB at 30 degrees/aspiration precautions. No problem with the PEG feeding-electrolytes unremarkable Acute hypoxic respiratory failure Secondary to left lower lobe pneumonia likely due to aspiration Was weaned down to 2L NC O2, had vomiting and aspiration event 02/19, TF was held, and unasyn added 02/20. Now on 12 L O2 via oxymask, wean down O2 as james. Still requiring high flow oxygen to maintain saturation We will repeat chest x-ray tomorrow-chest x-ray showing cardiomegaly with pulmonary edema and a small pleural effusion Will give 1 dose of Lasix today Acute metabolic encephalopathy/known Dementia Secondary to above, in setting of Lewy body dementia and Hypernatremia (Na was 164 on admission 02/03), sodium now normal - 144 CT head: No significant change compared to the prior study. No acute intracranial abnormality. Elev. troponin: Troponin level 400's on admission - likely type II [place], secondary to above. No further workup at this time. Acute Hypernatremia: resolved. Acute Renal Failure: present at admission which was resolved. Had another bump in Cr on 02/20, d/w nephro - no ivf/avoid nephrotoxics/hold vanc until acceptable trough level achieved. appreciate recs. Pt's doesn't want villasenor cath, c/w i ntermittent st cath to avoid obstruction. Nephro managing Chronic Villasenor/urinary retention: Vlilasenor was replaced this admission. doesn't want villasenor, TOV done, currently on intermittent cath- would write for three times daily on discharge and [facility] urology is aware of his need for follow-up. would like to consider TURP or other prostate surgery in the future For now, will cont with alpha-ban. The only one that will go through the PEG is terazosin This capsule has to be melted in warm water for 15 minutes and then given as a solution through the PEG. WOUNDS: Multiple sites of ulceration with necrosis There are multiple pressure sites for skin breakdown This was a possible source for his sepsis this admission Wound care nurse consulted. 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 Aortic stenosis S/P Bioprosthetic AVR TAA S/P surgery PFO as per records SSS sp PPM not on anticoagulation secondary to bleeding/fall risk H/O TIA Continue home medications DVT ppx: Heparin SQ Code Status-DNI/DNR Guarded prognosis Discussed with the in detail and answered all of her questions She will try to do passive movements of the extremities of the patient Admission and Anticipated Discharge Date Admission Date: February 03, 2023 Subjective 02/25/2023 Patient was seen and examined in presence of the He remains nonverbal but stable Looks brighter today as per the Not in any distress 02/26/2023 The patient was seen and examined in medical floor He has been brighter today and not in any acute distress 02/27/2023 The patient was seen and examined in medical floor He noted to have a low hemoglobin of 6.5 without any other symptoms He will up to unit of blood transfusion Looks much better Review of Systems Review of Systems: ROS could not be performed 2/2 dementia. Physical Exam Physical Exam: Lying in bed comfortably Constitutional: well developed, well nourished, + ill appearing and average body habitus Eyes: PERRL, conjunctivae normal, anicteric sclerae ENMT: external ear and nose normal, oropharynx normal Neck: trachea midline, no thyromegaly Respiratory: no respiratory distress Auscultation: + diminished lung sounds; no crackles Cardiovascular: Rate/Rhythm: regular rate and regular rhythm; not tachycardic Heart Sounds: normal S1 and normal S2; no murmur Extremities: + edema (Trace edema bilaterally) Gastrointestinal (Abdomen): Inspection/Auscultation: normal bowel sounds; abdomen not distended Percussion/Palpation: abdomen soft; abdomen nontender Musculoskeletal: Has flexural deformities involving the extremities Neurologic: awake; + does not move all extremities (Minimal movement involving the right upper extremity only) Flexural deformities involving the other extremities Lymphatic: no cervical or axillary lymphadenopathy Results & Data Results & Data Vital Signs (Past 12 Hours) Vital Signs Temp Pulse Pulse Resp BP BP Pulse Ox 02/27/23 15:38 36.6 C 62 18 129/61 99 02/27/23 14:35 36.8 C 60 16 118/52 L 100 02/27/23 09:17 02/27/23 11:45 36.6 C 59 L 16 117/63 99 02/27/23 11:33 36.7 C 65 16 105/62 98 02/27/23 07:07 37.0 C 65 16 112/63 97 O2 Del Method O2 Flow Rate 02/27/23 15:38 12 02/27/23 14:35 Oxymask 9 02/27/23 09:17 Oxymask 12 02/27/23 11:45 11 02/27/23 11:33 12 02/27/23 07:07 Oxymask 13 Laboratory Results Short CBC 02/27/23 Range/Units 07:43 WBC 8.98 (4.8-10.8) K/ul Hgb 6.6 L* (14.0-18.0) g/dl Hct 20.5 L* (42.0-52.0) % Plt Count 281 (130-400) K/uL BMP 02/27/23 07:43 Sodium 143 Potassium 4.2 Chloride 107 Carbon Dioxide 32 BUN 52 H Creatinine 1.95 H Glucose 156 H Calcium 6.9 L Medications Administered Current Inpatient Medications Acetaminophen (Acetaminophen 325 Mg Tab) 650 mg PEG Q4H PRN PRN Reason: Pain or Fever Stop: 03/13/23 10:34 Last Admin: 02/22/23 08:23 Dose: 650 mg Albuterol (Albut/Ipratrop 3mg/0.5mg Neb 3 Ml Vial) 3 ml NEB Q4R PRN; Protocol PRN Reason: Shortness Of Breath Or Wheezing Stop: 03/22/23 02:59 Last Admin: 02/19/23 23:20 Dose: 3 ml Aspirin (Aspirin 81 Mg Chew) 81 mg PEG QAM [facility] Stop: 03/19/23 08:59 Last Admin: 02/27/23 09:21 Dose: 81 mg Atorvastatin Calcium (Atorvastatin 20 Mg Tab) 20 mg PEG QPM [facility]ERNIE Stop: 03/18/23 20:59 Last Admin: 02/26/23 20:17 Dose: 20 mg Carbidopa/Levodopa (Carbidopa/Levodopa 25/100mg Tab) 1 tab PEG BID FERNIE Stop: 03/18/23 20:59 Last Admin: 02/27/23 09:20 Dose: 1 tab Donepezil HCl (Donepezil Hcl 5 Mg Tab) 5 mg PO QAM [facility] Stop: 03/13/23 08:59 Last Admin: 02/17/23 08:21 Dose: 5 mg Glucagon (Glucagon For Inj 1 Mg Vial) 1 mg SQ UD PRN; Protocol PRN Reason: Hypoglycemia Protocol Stop: 03/06/23 02:57 Glycopyrrolate (Glycopyrrolate 0.2 Mg/Ml Vial) 0.2 mg IV Q3H PRN PRN Reason: secretions Stop: 03/05/23 16:47 Last Admin: 02/21/23 17:55 Dose: 0.2 mg Heparin Sodium (Beef Lung) (Heparin 10 Unit/Ml 5 Ml Flush) 5 ml FLUSH PRN PRN PRN Reason: Flush Stop: 03/08/23 16:07 Last Admin: 02/25/23 02:36 Dose: 5 ml Pantoprazole Sodium 40 mg/ (Syringe) 10 mls @ 5 mls/min IV BID FERNIE Stop: 03/22/23 08:59 Last Admin: 02/27/23 09:20 Dose: 5 mls/min Vancomycin HCl 750 mg/ (Dextrose) 265 mls @ 200 mls/hr IV DAILY@1000 FERNIE; Protocol Stop: 03/17/23 09:59 Last Admin: 02/27/23 11:10 Dose: 200 mls/hr Cefepime HCl 2,000 mg/ Syringe 20 mls @ 5 mls/min IV Q12H FERNIE; Protocol Stop: 03/01/23 13:59 Last Admin: 02/27/23 14:47 Dose: 5 mls/min Sodium Chloride (Nss) 250 mls @ 15 mls/hr IV .[id number] PRN PRN Reason: For Transfusion Duration Stop: 02/27/23 18:52 Lansoprazole (Lansoprazole 30 Mg Soltab) 30 mg PEG QAM [facility] Stop: 03/19/23 08:59 Last Admin: 02/21/23 08:47 Dose: 30 mg Miscellaneous Information (Vancomycin Consult Active) 1 each N/A UD PRN PRN Reason: Consult Stop: 03/20/23 06:47 Nutritional Formula (Nutren Liqd 2.0 1,000 Ml Bag) 1,000 ml PEG UD [facility]; Protocol Stop: 03/22/23 15:44 Last Admin: 02/24/23 13:05 Dose: 1,000 ml Polyethylene Glycol (Polyethylene (Miralax) 17 Gm Pack) 17 gm PEG DAILY PRN PRN Reason: Constipation Stop: 03/05/23 15:43 Last Admin: 02/23/23 09:31 Dose: 17 gm Rifampin (Rifampin 600mg/60ml Udp) 600 mg PEG Q24H [facility]ERNIE Stop: 03/07/23 17:59 Last Admin: 02/26/23 17:31 Dose: 600 mg Sterile Water (Tube Feeding Water Flush) 200 ml PEG Q4H [facility]ERNIE Stop: 03/27/23 14:59 Last Admin: 02/27/23 11:00 Dose: 200 ml Terazosin HCl (Terazosin Hcl 1 Mg Cap) 2 mg PO HS FERNIE Stop: 03/22/23 20:59 Last Admin: 02/26/23 20:17 Dose: 2 mg
[2023-02-27] MEDS: RIFAMPIN PEG SCH (16:32)
[2023-02-27] MEDS: TERAZOSIN HCL 1 MG CAP PO SCH (23:05)
[2023-02-27] MEDS: ATORVASTATIN 20 MG TAB PEG SCH (23:05)
[2023-02-27] MEDS: NUTREN LIQD 2.0 1,000 ML BAG PEG SCH (23:05)
[2023-02-28] MEDS: TUBE FEEDING WATER FLUSH PEG SCH ×6 (00:12→20:28)
[2023-02-28] MEDS: CEFEPIME 2,000 MG in SYRINGE 0 ML IV SCH ×2 (02:47→15:09)
[2023-02-28 08:05] LABS: Basophils # (auto) 0.02 K/uL (0-0.2); Basophils % (auto) 0.2 %; Eosinophils # (auto) 0.38 K/uL (0-0.50); Eosinophils % (auto) 3.7 %; Hemoglobin 8.7 g/dl (14.0-18.0); Immature Granulocytes # (auto) 0.08 K/uL (0.01-0.20); Immature Granulocytes % (auto) 0.8 %; Lymphocytes % (auto) 7.8 %; Mean Corpuscular Hemoglobin 29.9 pg (25.0-34.0); Mean Corpuscular Hgb Conc 33.5 g/dL (32.0-36.0); Mean Corpuscular Volume 89.3 fL (80.0-100.0); Mean Platelet Volume 10.6 fL (9.4-12.4); Monocytes # (auto) 0.76 K/uL (0.11-0.59); Monocytes % (auto) 7.4 %; Neutrophils # (auto) 8.25 K/uL (1.40-6.50); Neutrophils % (auto) 80.1 %; Platelet Count 309 K/uL (130-400); RDW Coefficient of Variation 15.3 % (11.5-14.5); Red Blood Count 2.91 M/uL (4.70-6.10); White Blood Count 10.29 K/ul (4.8-10.8)
[2023-02-28 08:24] LABS: BUN Creatinine Ratio 26.6 (10-20); Calcium 7.3 mg/dl (8.6-10.3); Creatinine Clr Calc Pharmacy 32.4 ml/min; Est GFR (African American) 35.5 ml/min; Est GFR (Non-African American) 30.6 ml/min
[2023-02-28] MEDS: PANTOprazole 40 MG in SYRINGE 0 ML IV SCH ×2 (09:21→20:53)
[2023-02-28] MEDS: CARBIDOPA/LEVODOPA 25/100MG TAB PEG SCH ×2 (09:21→20:53)
[2023-02-28] MEDS: ASPIRIN 81 MG CHEW PEG SCH (09:22)
[2023-02-28] MEDS: VANCOMYCIN HCL 750 MG in DEXTROSE 5% 250 ML IV SCH (09:22)
[2023-02-28] MEDS ORDERED: FUROSEMIDE INJ 20 MG/2 ML VIAL IV ONE (11:49)
--- NOTE | 2023-02-28 16:46 | Hospitalist Progress Note ---
Date of Service February 28, 2023 Assessment & Plan (1) Septic shock: (2) Acute hypernatremia: (3) Acute renal failure (ARF): (4) Goals of care, counseling/discussion: (5) Anemia: (6) Wounds and injuries: Plan Patient is an 87 yr male presents from [facility] with septic shock, renal failure. Revoked hospice for ED admission per request who was traveling from [facility]. Pt was intubated. Admitting team confirmed No CPR, defibrillation, cardioversion in the event of cardiac arrest. Palliative care evaluated. He is being managed for the following: Fever- continued to spike fever despite being on vanc/unasyn/rifampin. Blood clx is so far negative. Changed unasyn to zosyn, renally dosed and monitor. No more fever since eighth of this month We will continue current antibiotic We will order blood cultures as advised No more fever and or signs of infection We will continue current antibiotic as per instruction from the ID No more fever and or chills Anemia: Hemoglobin >7, no active bleeding. PBS without Schistocytes, normal reticulocyte count, hemolysis less likely. Iron deficiency present. Poor nutrition does not help. Cont iron supplementation and proper nutrition. Hemoglobin is 7.4 as of 02/25/2023 Will check hemoglobin if it is less than 7 will transfuse Hemoglobin dropped down to 6.6 and will give 2 units of blood transfusion Hemoglobin went up to more than 9 and the patient has been feeling better Septic Shock with staph (YARN INSPECTOR not lugdunensis) bacteremia: possible sources include skin vs pneumonia and UTI with indwelling Villasenor. Weaned off pressors and extubated 02/06. Pansensitive Klebsiella in sputum. Liliana in sputum likely a contaminant Urine Culture: Noncontributory (H/O chronic Villasenor, recent h/o of UTI) ECHO: EF 50 to 55%, bioprosthetic aortic valve, mild mitral regurgitation, grade 2 diastolic dysfunction, mild tricuspid regurgitation High risk for aspiration pneumonia. Known recent month long admission with urosepsis; was recently on Hospice Repeat blood cultures were negative. Initially admitted on Vanc/Zosyn 02/03 Plan will be total 6 weeks of Vancomycin with rifampin added from 02/16/23 with surveillance cultures (2 sets from the periphery) 5-7 days post completion of abx therapy. Continue current antibiotics and will change according to the plan Severe protein calorie malnutrition H/O Esophageal dysmotility Dysphagia: Speech therapy involved in his care this admission. Palliative care involved, Patient's POA now agreeing to no escalation of care (pressors, CPR, intubation). She declines COURT. However, POA would like PEG feeds. PEG placed 02/14-tolerating feeds without residual Remains high risk for aspiration Gely Melissa cannot accept him back with PEG in place PEG feed held due to vomiting, resume peg feed at low rate, and upto 50% of goal for now. Consider pr bowel regimen to help w/ constipation as needed, moved large bowel per RN. Keep HOB at 30 degrees/aspiration precautions. No problem with the PEG feeding-electrolytes unremarkable Acute hypoxic respiratory failure Secondary to left lower lobe pneumonia likely due to aspiration Was weaned down to 2L NC O2, had vomiting and aspiration event 02/19, TF was held, and unasyn added 02/20. Now on 12 L O2 via oxymask, wean down O2 as james. Still requiring high flow oxygen to maintain saturation We will repeat chest x-ray tomorrow-chest x-ray showing cardiomegaly with pulmonary edema and a small pleural effusion Will give 1 dose of Lasix today We will give another dose of Lasix today and discussed with the Acute metabolic encephalopathy/known Dementia Secondary to above, in setting of Lewy body dementia and Hypernatremia (Na was 164 on admission 02/03), sodium now normal - 144 CT head: No significant change compared to the prior study. No acute intracranial abnormality. Elev. troponin: Troponin level 400's on admission - likely type II [place], secondary to above. No further workup at this time. Acute Hypernatremia: resolved. Acute Renal Failure: present at admission which was resolved. Had another bump in Cr on 02/20, d/w nephro - no ivf/avoid nephrotoxics/hold vanc until acceptable trough level achieved. appreciate recs. Pt's doesn't want villasenor cath, c/w intermittent st cath to avoid obstruction. Nephro managing Chronic Villasenor/urinary retention: Villasenor was replaced this admission. doesn't want villasenor, TOV done, currently on intermittent cath- would write for three times daily on discharge and [facility] [place] [place] urology is aware of his need for follow-up. would like to consider TURP or other prostate surgery in the future For now, will cont with alpha-ban. The only one that will go through the PEG is terazosin This capsule has to be melted in warm water for 15 minutes and then given as a solution through the PEG. Villasenor were changed and urine will be sent for repeat culture and sensitivity WOUNDS: Multiple sites of ulceration with necrosis There are multiple pressure sites for skin breakdown This was a possible source for his sepsis this admission Wound care nurse consulted. 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 Aortic stenosis S/P Bioprosthetic AVR TAA S/P surgery PFO as per records SSS sp PPM not on anticoagulation secondary to bleeding/fall risk H/O TIA Continue home medications DVT ppx: Heparin SQ Code Status-DNI/DNR Guarded prognosis Discussed with the in detail and answered all of her questions She will try to do passive movements of the extremities of the patient Admission and Anticipated Discharge Date Admission Date: February 03, 2023 Subjective 02/25/2023 Patient was seen and examined in presence of the He remains nonverbal but stable Looks brighter today as per the Not in any distress 02/26/2023 The patient was seen and examined in medical floor He has been brighter today and not in any acute distress 02/27/2023 The patient was seen and examined in medical floor He noted to have a low hemoglobin of 6.5 without any other symptoms He will up to unit of blood transfusion Looks much better 02/28/2023 The patient was seen and examined in medical floor He remains stable and does not have any distress at rest He has had enough diuresis and requiring about 5 L of oxygen to maintain saturation now Oral relations have resolved Review of Systems Review of Systems: ROS could not be performed 2/2 dementia. Physical Exam Physical Exam: Lying in bed comfortably Constitutional: well developed, well nourished, + ill appearing and average body habitus Eyes: PERRL, conjunctivae normal, anicteric sclerae ENMT: external ear and nose normal, oropharynx normal Neck: trachea midline, no thyromegaly Respiratory: no respiratory distress Auscultation: + diminished lung sounds; no crackles Cardiovascular: Rate/Rhythm: regular rate and regular rhythm; not tachycardic Heart Sounds: normal S1 and normal S2; no murmur Extremities: + edema (Trace edema bilaterally) Gastrointestinal (Abdomen): Inspection/Auscultation: normal bowel sounds; abdomen not distended Percussion/Palpation: abdomen soft; abdomen nontender Musculoskeletal: Extremities: no lower leg abnormality (Bilateral lower EXTR flexural deformities) Neurologic: awake; + does not move all extremities (Minimal movement involving the right upper extremity only) Lymphatic: no cervical or axillary lymphadenopathy Results & Data Results & Data Vital Signs (Past 12 Hours) Vital Signs Temp Pulse Resp BP Pulse Ox O2 Del Method O2 Flow Rate 02/28/23 14:41 36.5 C 65 15 110/56 L 95 Oxymask 5 02/28/23 09:00 Oxymask 5 02/28/23 07:42 36.6 C 69 16 115/53 L 95 Oxymask 5 Laboratory Results Short CBC 02/28/23 Range/Units 07:51 WBC 10.29 (4.8-10.8) K/ul Hgb 8.7 L (14.0-18.0) g/dl Hct 26.0 L (42.0-52.0) % Plt Count 309 (130-400) K/uL BMP 02/28/23 07:51 Sodium 142 Potassium 4.0 Chloride 106 Carbon Dioxide 30 BUN 51 H Creatinine 1.92 H Glucose 167 H Calcium 7.3 L Medications Administered Current Inpatient Medications Acetaminophen (Acetaminophen 325 Mg Tab) 650 mg PEG Q4H PRN PRN Reason: Pain or Fever Stop: 03/13/23 10:34 Last Admin: 02/22/23 08:23 Dose: 650 mg Albuterol (Albut/Ipratrop 3mg/0.5mg Neb 3 Ml Vial) 3 ml NEB Q4R PRN; Protocol PRN Reason: Shortness Of Breath Or Wheezing Stop: 03/22/23 02:59 Last Admin: 02/19/23 23:20 Dose: 3 ml Aspirin (Aspirin 81 Mg Chew) 81 mg PEG QAM [facility] Stop: 03/19/23 08:59 Last Admin: 02/28/23 09:22 Dose: 81 mg Atorvastatin Calcium (Atorvastatin 20 Mg Tab) 20 mg PEG QPM [facility]ERNIE Stop: 03/18/23 20:59 Last Admin: 02/27/23 23:05 Dose: 20 mg Carbidopa/Levodopa (Carbidopa/Levodopa 25/100mg Tab) 1 tab PEG BID FERNIE Stop: 03/18/23 20:59 Last Admin: 02/28/23 09:21 Dose: 1 tab Donepezil HCl (Donepezil Hcl 5 Mg Tab) 5 mg PO QAM [facility] Stop: 03/13/23 08:59 Last Admin: 02/17/23 08:21 Dose: 5 mg Glucagon (Glucagon For Inj 1 Mg Vial) 1 mg SQ UD PRN; Protocol PRN Reason: Hypoglycemia Protocol Stop: 03/06/23 02:57 Glycopyrrolate (Glycopyrrolate 0.2 Mg/Ml Vial) 0.2 mg IV Q3H PRN PRN Reason: secretions Stop: 03/05/23 16:47 Last Admin: 02/21/23 17:55 Dose: 0.2 mg Heparin Sodium (Beef Lung) (Heparin 10 Unit/Ml 5 Ml Flush) 5 ml FLUSH PRN PRN PRN Reason: Flush Stop: 03/08/23 16:07 Last Admin: 02/25/23 02:36 Dose: 5 ml Pantoprazole Sodium 40 mg/ (Syringe) 10 mls @ 5 mls/min IV BID FERNIE Stop: 03/22/23 08:59 Last Admin: 02/28/23 09:21 Dose: 5 mls/min Vancomycin HCl 750 mg/ (Dextrose) 265 mls @ 200 mls/hr IV DAILY@1000 [facility]; Protocol Stop: 03/17/23 09:59 Last Infusion: 02/28/23 10:42 Dose: Infused Cefepime HCl 2,000 mg/ Syringe 20 mls @ 5 mls/min IV Q12H [facility]; Protocol Stop: 03/01/23 13:59 Last Admin: 02/28/23 15:09 Dose: 5 mls/min Lansoprazole (Lansoprazole 30 Mg Soltab) 30 mg PEG QAM [facility] Stop: 03/19/23 08:59 Last Admin: 02/21/23 08:47 Dose: 30 mg Miscellaneous Information (Vancomycin Consult Active) 1 each N/A UD PRN PRN Reason: Consult Stop: 03/20/23 06:47 Nutritional Formula (Nutren Liqd 2.0 1,000 Ml Bag) 1,000 ml PEG UD [facility]; Protocol Stop: 03/22/23 15:44 Last Admin: 02/27/23 23:05 Dose: 1,000 ml Polyethylene Glycol (Polyethylene (Miralax) 17 Gm Pack) 17 gm PEG DAILY PRN PRN Reason: Constipation Stop: 03/05/23 15:43 Last Admin: 02/23/23 09:31 Dose: 17 gm Rifampin (Rifampin 600mg/60ml Udp) 600 mg PEG Q24H [facility]ERNIE Stop: 03/07/23 17:59 Last Admin: 02/27/23 16:32 Dose: 600 mg Sterile Water (Tube Feeding Water Flush) 200 ml PEG Q4H [facility]IE Stop: 03/27/23 14:59 Last Admin: 02/28/23 15:09 Dose: 200 ml Terazosin HCl (Terazosin Hcl 1 Mg Cap) 2 mg PO HS FERNIE Stop: 03/22/23 20:59 Last Admin: 02/27/23 23:05 Dose: 2 mg
[2023-02-28] MEDS: RIFAMPIN PEG SCH (17:09)
[2023-02-28] MEDS: ATORVASTATIN 20 MG TAB PEG SCH (20:54)
[2023-02-28] MEDS: TERAZOSIN HCL 1 MG CAP PO SCH (20:54)
[2023-02-28 20:58] LABS: Appearance Urine Cloudy (Clear); Bilirubin Urine Negative (Negative); Blood Urine 1+ (Negative); Color Urine Yellow; Epithelial Cell Urine Auto 20-30 /lpf (0-5); Glucose Urine UA Negative (Negative); Ketones Urine Negative (Negative); Leukocyte Esterase Urine 2+ (Negative); Nitrite Urine Negative (Negative); Protein Urine 2+ (Negative); RBC Urine Automated 0-4 /hpf (0-4); Specific Gravity Urine 1.014 (1.000-1.030); Urobilinogen Urine Negative (Negative); WBC Urine Automated >30 /hpf (0-5); pH Urine 5.5 (4.5-7.5)
[2023-02-28 21:10] LABS: Bacteria Urine Automated 1+ (Negative)
[2023-03-01] MEDS: NUTREN LIQD 2.0 1,000 ML BAG PEG SCH (02:49)
[2023-03-01] MEDS: CEFEPIME 2,000 MG in SYRINGE 0 ML IV SCH (02:49)
[2023-03-01] MEDS: TUBE FEEDING WATER FLUSH PEG SCH ×7 (03:26→22:49)
[2023-03-01] MEDS: ASPIRIN 81 MG CHEW PEG SCH (09:07)
[2023-03-01] MEDS: PANTOprazole 40 MG in SYRINGE 0 ML IV SCH ×2 (09:07→19:59)
[2023-03-01] MEDS: CARBIDOPA/LEVODOPA 25/100MG TAB PEG SCH ×2 (09:07→19:59)
[2023-03-01] MEDS: VANCOMYCIN HCL 750 MG in DEXTROSE 5% 250 ML IV SCH (09:09)
--- NOTE | 2023-03-01 10:14 | Pharmacy Report ---
Pharmacy PK ABX Note - Date of Service March 01, 2023 - Assessment and Plan Assessment 87 year old M receiving IV cefepime, vancomycin and PO rifampin for treatment of severe sepsis secondary to bacteremia with HAP/aspiration PNA. 03/01: * Day #27 of antimicrobial therapy. 6 weeks of Vancomycin per ID recommendations. * Renal fxn stable. Afebrile. Plan Vancomycin * Current regimen: 750 mg IV every 24 hours * Random level obtained 03/01/23 resulted as 18.0 mcg/mL. This is predicted to achieve target AUC/ABI of 400-600 mg/L.hr * Predicted AUC at steady state: 479 mg/L.hr * Continue 750 mg IV every 24 hours * No repeat level ordered at this time. Can likely starting monitoring once or twice weekly. Will order SCr q3days. Rifampin * 600 mg PO daily Cefepime * 2 gm IV q12 (target dose of 2 gm IV q8) Pharmacy will continue to follow and will adjust dose/frequency as necessary. Thank you.
[2023-03-01 11:19] LABS: BUN Creatinine Ratio 25.4 (10-20); Calcium 7.8 mg/dl (8.6-10.3); Creatinine Clr Calc Pharmacy 30.3 ml/min; Est GFR (African American) 32.8 ml/min; Est GFR (Non-African American) 28.3 ml/min; Potassium 4.1 mmol/L (3.5-5.1)
--- NOTE | 2023-03-01 15:31 | Hospitalist Progress Note ---
Date of Service March 01, 2023 Assessment & Plan (1) Septic shock: (2) Acute hypernatremia: (3) Acute renal failure (ARF): (4) Goals of care, counseling/discussion: (5) Anemia: (6) Wounds and injuries: Plan Patient is an 87 yr male presents from [facility] with septic shock, renal failure. Revoked hospice for ED admission per request who was traveling from [facility]. Pt was intubated. Admitting team confirmed No CPR, defibrillation, cardioversion in the event of cardiac arrest. Palliative care evaluated. He is being managed for the following: Fever- continued to spike fever despite being on vanc/unasyn/rifampin. Blood clx is so far negative. Changed unasyn to zosyn, renally dosed and monitor. No more fever since eighth of this month We will continue current antibiotic We will order blood cultures as advised No more fever and or signs of infection We will continue current antibiotic as per instruction from the ID No more fever and or chills Condition remains stable without any signs and or symptoms of active infection Plan to discharge the patient in [facility] when there is a bed Anemia: Hemoglobin >7, no active bleeding. PBS without Schistocytes, normal reticulocyte count, hemolysis less likely. Iron deficiency present. Poor nutrition does not help. Cont iron supplementation and proper nutrition. 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 Weaned off pressors and extubated 02/06. Pansensitive Klebsiella in sputum. Liliana in sputum likely a contaminant Urine Culture: Noncontributory (H/O chronic Villasenor, recent h/o of UTI) ECHO: EF 50 to 55%, bioprosthetic aortic valve, mild mitral regurgitation, grade 2 diastolic dysfunction, mild tricuspid regurgitation High risk for aspiration pneumonia. Known recent month long admission with urosepsis; was recently on Hospice Repeat blood cultures were negative. Initially admitted on Vanc/Zosyn 02/03 Plan will be total 6 weeks of Vancomycin with rifampin added from 02/16/23 with surveillance cultures (2 sets from the periphery) 5-7 days post completion of abx therapy. Continue current antibiotics and will change according to the plan Discussed with the about discharging him on approval to go to the [facility] Severe protein calorie malnutrition H/O Esophageal dysmotility Dysphagia: Speech therapy involved in his care this admission. Palliative care involved, Patient's POA now agreeing to no escalation of care (pressors, CPR, intubation). She declines COURT. However, POA would like PEG feeds. PEG placed 02/14-tolerating feeds without residual Remains high risk for aspiration Gely Melissa cannot accept him back with PEG in place PEG feed held due to vomiting, resume peg feed at low rate, and upto 50% of goal for now. Consider pr bowel regimen to help w/ constipation as needed, moved large bowel per RN. Keep HOB at 30 degrees/aspiration precautions. No problem with the PEG feeding-electrolytes unremarkable Acute hypoxic respiratory failure Secondary to left lower lobe pneumonia likely due to aspiration Was weaned down to 2L NC O2, had vomiting and aspiration event 02/19, TF was held, and unasyn added 02/20. Now on 12 L O2 via oxymask, wean down O2 as james. Still requiring high flow oxygen to maintain saturation We will repeat chest x-ray tomorrow-chest x-ray showing cardiomegaly with pulmonary edema and a small pleural effusion Will give 1 dose of Lasix today We will give another dose of Lasix today and discussed with the He is requiring about 5 L of oxygen to maintain saturation Acute metabolic encephalopathy/known Dementia Secondary to above, in setting of Lewy body dementia and Hypernatremia (Na was 164 on admission 02/03), sodium now normal - 144 CT head: No significant change compared to the prior study. No acute intracranial abnormality. Elev. troponin: Troponin level 400's on admission - likely type II [place], secondary to above. No further workup at this time. Acute Hypernatremia: resolved. Acute Renal Failure: present at admission which was resolved. Had another bump in Cr on 02/20, d/w nephro - no ivf/avoid nephrotoxics/hold vanc until acceptable trough level achieved. appreciate recs. Pt's doesn't want villasenor cath, c/w intermittent st cath to avoid obstruction. Nephro managing Chronic Villasenor/urinary retention: Villasenor was replaced this admission. doesn't want villasenor, TOV done, currently on intermittent cath- would write for three times daily on discharge and [facility] urology is aware of his need for follow-up. would like to consider TURP or other prostate surgery in the future For now, will cont with alpha-ban. The only one that will go through the PEG is terazosin This capsule has to be melted in warm water for 15 minutes and then given as a solution through the PEG. Villasenor were changed and urine will be sent for repeat culture and sensitivity Repeat urine culture is not showing any growth WOUNDS: Multiple sites of ulceration with necrosis There are multiple pressure sites for skin breakdown This was a possible source for his sepsis this admission Wound care nurse consulted. 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 She is agreeable for her to go to rehab and get more physical therapy on top of continuing the current management Admission and Anticipated Discharge Date Admission Date: February 03, 2023 Subjective 02/25/2023 Patient was seen and examined in presence of the He remains nonverbal but stable Looks brighter today as per the Not in any distress 02/26/2023 The patient was seen and examined in medical floor He has been brighter today and not in any acute distress 02/27/2023 The patient was seen and examined in medical floor He noted to have a low hemoglobin of 6.5 without any other symptoms He will up to unit of blood transfusion Looks much better 02/28/2023 The patient was seen and examined in medical floor He remains stable and does not have any distress at rest He has had enough diuresis and requiring about 5 L of oxygen to maintain saturation now Oral relations have resolved 03/01/2023 The patient was seen and examined in medical floor He has been stable and not in any acute distress He requires 5 L of oxygen to maintain saturation Discussed with the for possible palliative care consult but the was not agreeable Review of Systems Review of Systems: ROS could not be performed 2/2 dementia. Physical Exam Physical Exam: Lying in bed comfortably Constitutional: well developed, well nourished, + ill appearing and average body habitus Eyes: PERRL, conjunctivae normal, anicteric sclerae ENMT: external ear and nose normal, oropharynx normal Neck: trachea midline, no thyromegaly Respiratory: no respiratory distress Auscultation: + diminished lung sounds; no crackles Cardiovascular: Rate/Rhythm: regular rate and regular rhythm; not tachycardic Heart Sounds: normal S1 and normal S2; no murmur Extremities: + edema (Trace edema bilaterally) Gastrointestinal (Abdomen): Inspection/Auscultation: normal bowel sounds; abdomen not distended Percussion/Palpation: abdomen soft; abdomen nontender Musculoskeletal: Extremities: no lower leg abnormality (Bilateral lower EXTR flexural deformities) Neurologic: awake; + does not move all extremities (Minimal movement involving the right upper extremity only) Lymphatic: no cervical or axillary lymphadenopathy Results & Data Results & Data Vital Signs (Past 12 Hours) Vital Signs Temp Pulse Resp BP Pulse Ox O2 Del Method O2 Flow Rate 03/01/23 08:00 Oxymask 5 03/01/23 08:05 96/52 L 03/01/23 08:00 37.1 C 69 18 98/43 L 94 Nasal Cannula 5 Laboratory Results [facility] 03/01/23 08:29 Sodium 142 Potassium 4.1 Chloride 104 Carbon Dioxide 30 BUN 52 H Creatinine 2.05 H Glucose 135 H Calcium 7.8 L Urine 02/28/23 Range/Units 20:15 Urine Color Yellow Urine Appearance Cloudy A (Clear) Urine pH 5.5 (4.5-7.5) Ur Specific [place] 1.014 (1.000-1.030) Urine Protein 2+ H (Negative) Urine Glucose (UA) Negative (Negative) Medications Administered Current Inpatient Medications Acetaminophen (Acetaminophen 325 Mg Tab) 650 mg PEG Q4H PRN PRN Reason: Pain or Fever Stop: 03/13/23 10:34 Last Admin: 02/22/23 08:23 Dose: 650 mg Albuterol (Albut/Ipratrop 3mg/0.5mg Neb 3 Ml Vial) 3 ml NEB Q4R PRN; Protocol PRN Reason: Shortness Of Breath Or Wheezing Stop: 03/22/23 02:59 Last Admin: 02/19/23 23:20 Dose: 3 ml Aspirin (Aspirin 81 Mg Chew) 81 mg PEG QAM FERNIE Stop: 03/19/23 08:59 Last Admin: 03/01/23 09:07 Dose: 81 mg Atorvastatin Calcium (Atorvastatin 20 Mg Tab) 20 mg PEG QPM FERNIE Stop: 03/18/23 20:59 Last Admin: 02/28/23 20:54 Dose: 20 mg Carbidopa/Levodopa (Carbidopa/Levodopa 25/100mg Tab) 1 tab PEG BID FERNIE Stop: 03/18/23 20:59 Last Admin: 03/01/23 09:07 Dose: 1 tab Donepezil HCl (Donepezil Hcl 5 Mg Tab) 5 mg PO QAM FERNIE Stop: 03/13/23 08:59 Last Admin: 02/17/23 08:21 Dose: 5 mg Glucagon (Glucagon For Inj 1 Mg Vial) 1 mg SQ UD PRN; Protocol PRN Reason: Hypoglycemia Protocol Stop: 03/06/23 02:57 Glycopyrrolate (Glycopyrrolate 0.2 Mg/Ml Vial) 0.2 mg IV Q3H PRN PRN Reason: secretions Stop: 03/05/23 16:47 Last Admin: 02/21/23 17:55 Dose: 0.2 mg Heparin Sodium (Beef Lung) (Heparin 10 Unit/Ml 5 Ml Flush) 5 ml FLUSH PRN PRN PRN Reason: Flush Stop: 03/08/23 16:07 Last Admin: 02/25/23 02:36 Dose: 5 ml Pantoprazole Sodium 40 mg/ (Syringe) 10 mls @ 5 mls/min IV BID FERNIE Stop: 03/22/23 08:59 Last Admin: 03/01/23 09:07 Dose: 5 mls/min Vancomycin HCl 750 mg/ (Dextrose) 265 mls @ 200 mls/hr IV DAILY@1000 FERNIE; Protocol Stop: 03/17/23 09:59 Last Infusion: 03/01/23 10:47 Dose: Infused Lansoprazole (Lansoprazole 30 Mg Soltab) [address] [facility] Stop: 03/19/23 08:59 Last Admin: 02/21/23 08:47 Dose: 30 mg Miscellaneous Information (Vancomycin Consult Active) 1 each N/A UD PRN PRN Reason: Consult Stop: 03/20/23 06:47 Nutritional Formula (Nutren Liqd 2.0 1,000 Ml Bag) 1,[address] [facility]; Protocol Stop: 03/22/23 15:44 Last Admin: 03/01/23 02:49 Dose: 1,000 ml Polyethylene Glycol (Polyethylene (Miralax) 17 Gm Pack) 17 gm PEG DAILY PRN PRN Reason: Constipation Stop: 03/05/23 15:43 Last Admin: 02/23/23 09:31 Dose: 17 gm Rifampin (Rifampin 600mg/60ml Udp) 600 mg PEG Q24H FERNIE Stop: 03/07/23 17:59 Last Admin: 02/28/23 17:09 Dose: 600 mg Sterile Water (Tube Feeding Water Flush) 200 ml PEG Q4H FERNIE Stop: 03/27/23 14:59 Last Admin: 03/01/23 14:32 Dose: 200 ml Terazosin HCl (Terazosin Hcl 1 Mg Cap) [address] [facility] Stop: 03/22/23 20:59 Last Admin: 02/28/23 20:54 Dose: 2 mg
[2023-03-01] MEDS: RIFAMPIN PEG SCH (18:05)
[2023-03-01] MEDS: ATORVASTATIN 20 MG TAB PEG SCH (19:59)
[2023-03-01] MEDS: ACETAMINOPHEN 325 MG TAB PEG PRN (21:02)
[2023-03-01] MEDS: TERAZOSIN HCL 1 MG CAP PO SCH (21:02)
[2023-03-02] MEDS: TUBE FEEDING WATER FLUSH PEG SCH ×6 (04:18→22:40)
[2023-03-02] MEDS: PANTOprazole 40 MG in SYRINGE 0 ML IV SCH ×2 (08:17→20:14)
[2023-03-02] MEDS: NUTREN LIQD 2.0 1,000 ML BAG PEG SCH (08:17)
[2023-03-02] MEDS: CARBIDOPA/LEVODOPA 25/100MG TAB PEG SCH ×2 (08:18→20:14)
[2023-03-02] MEDS: ASPIRIN 81 MG CHEW PEG SCH (08:18)
[2023-03-02] MEDS: VANCOMYCIN HCL 750 MG in DEXTROSE 5% 250 ML IV SCH (11:05)
[2023-03-02] MEDS: ACETAMINOPHEN 325 MG TAB PEG PRN (15:09)
--- NOTE | 2023-03-02 17:02 | Hospitalist Progress Note ---
Date of Service March 02, 2023 Assessment & Plan (1) Septic shock: (2) Acute hypernatremia: (3) Acute renal failure (ARF): (4) Goals of care, counseling/discussion: (5) Anemia: (6) Wounds and injuries: Plan Patient is an 87 yr male presents from [facility] with septic shock, renal failure. Revoked hospice for ED admission per request who was traveling from [place]. Pt was intubated. Admitting team confirmed No CPR, defibrillation, cardioversion in the event of cardiac arrest. Palliative care evaluated. He is being managed for the following: Fever- continued to spike fever despite being on vanc/unasyn/rifampin. Blood clx is so far negative. Changed unasyn to zosyn, renally dosed and monitor. No more fever since eighth of this month We will continue current antibiotic We will order blood cultures as advised No more fever and or signs of infection We will continue current antibiotic as per instruction from the ID No more fever and or chills Condition remains stable without any signs and or symptoms of active infection Plan to discharge the patient in [facility] when there is a bed Minimal fever noted-we will get repeat blood cultures No more shortness of breath-will not do any chest x-ray right now Anemia: Hemoglobin >7, no active bleeding. PBS without Schistocytes, normal reticulocyte count, hemolysis less likely. Iron deficiency present. Poor nutrition does not help. Cont iron supplementation and proper nutrition. 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 Weaned off pressors and extubated 02/06. Pansensitive Klebsiella in sputum. Liliana in sputum likely a contaminant Urine Culture: Noncontributory (H/O chronic Villasenor, recent h/o of UTI) ECHO: EF 50 to 55%, bioprosthetic aortic valve, mild mitral regurgitation, grade 2 diastolic dysfunction, mild tricuspid regurgitation High risk for aspiration pneumonia. Known recent month long admission with urosepsis; was recently on Hospice Repeat blood cultures were negative. Initially admitted on Vanc/Zosyn 02/03 Plan will be total 6 weeks of Vancomycin with rifampin added from 02/16/23 with surveillance cultures (2 sets from the periphery) 5-7 days post completion of abx therapy. Continue current antibiotics and will change according to the plan Discussed with the about discharging him on approval to go to the [facility] Severe protein calorie malnutrition H/O Esophageal dysmotility Dysphagia: Speech therapy involved in his care this admission. Palliative care involved, Patient's POA now agreeing to no escalation of care (pressors, CPR, intubation). She declines COURT. However, POA would like PEG feeds. PEG placed 02/14-tolerating feeds without residual Remains high risk for aspiration Gely Melissa cannot accept him back with PEG in place PEG feed held due to vomiting, resume peg feed at low rate, and upto 50% of goal for now. Consider pr bowel regimen to help w/ constipation as needed, moved large bowel per RN. Keep HOB at 30 degrees/aspiration precautions. No problem with the PEG feeding-electrolytes unremarkable Acute hypoxic respiratory failure Secondary to left lower lobe pneumonia likely due to aspiration Was weaned down to 2L NC O2, had vomiting and aspiration event 02/19, TF was held, and unasyn added 02/20. Now on 12 L O2 via oxymask, wean down O2 as james. Still requiring high flow oxygen to maintain saturation We will repeat chest x-ray tomorrow-chest x-ray showing cardiomegaly with pulmonary edema and a small pleural effusion Will give 1 dose of Lasix today We will give another dose of Lasix today and discussed with the He is requiring about 5 L of oxygen to maintain saturation Surprisingly has been saturating normally on room air Acute metabolic encephalopathy/known Dementia Secondary to above, in setting of Lewy body dementia and Hypernatremia (Na was 164 on admission 02/03), sodium now normal - 144 CT head: No significant change compared to the prior study. No acute intracranial abnormality. Elev. troponin: Troponin level 400's on admission - likely type II [place], secondary to above. No further workup at this time. Acute Hypernatremia: resolved. Acute Renal Failure: present at admission which was resolved. Had another bump in Cr on 02/20, d/w nephro - no ivf/avoid nephrotoxics/hold vanc until acceptable trough level achieved. appreciate recs. Pt's doesn't want villasenor cath, c/w intermittent st cath to avoid obstruction. Nephro managing Chronic Villasenor/urinary retention: Villasenor was replaced this admission. doesn't want villasenor, TOV done, currently on intermittent cath- would write for three times daily on discharge and [facility] is aware of his need for follow-up. would like to consider TURP or other prostate surgery in the future For now, will cont with alpha-ban. The only one that will go through the PEG is terazosin This capsule has to be melted in warm water for 15 minutes and then given as a solution through the PEG. Villasenor were changed and urine will be sent for repeat culture and sensitivity Repeat urine culture is not showing any growth WOUNDS: Multiple sites of ulceration with necrosis There are multiple pressure sites for skin breakdown This was a possible source for his sepsis this admission Wound care nurse consulted. 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 She is agreeable for her to go to rehab and get more physical therapy on top of continuing the current management Admission and Anticipated Discharge Date Admission Date: February 03, 2023 Subjective 02/25/2023 Patient was seen and examined in presence of the He remains nonverbal but stable Looks brighter today as per the Not in any distress 02/26/2023 The patient was seen and examined in medical floor He has been brighter today and not in any acute distress 02/27/2023 The patient was seen and examined in medical floor He noted to have a low hemoglobin of 6.5 without any other symptoms He will up to unit of blood transfusion Looks much better 02/28/2023 The patient was seen and examined in medical floor He remains stable and does not have any distress at rest He has had enough diuresis and requiring about 5 L of oxygen to maintain saturation now Oral relations have resolved 03/01/2023 The patient was seen and examined in medical floor He has been stable and not in any acute distress He requires 5 L of oxygen to maintain saturation Discussed with the for possible palliative care consult but the was not agreeable 03/02/2023 Patient was seen and examined in medical floor He has minimal fever with sweating No other acute distress Review of Systems Review of Systems: ROS could not be performed 12/20 dementia. Physical Exam Physical Exam: Lying in bed comfortably Constitutional: well developed, well nourished, + ill appearing and average body habitus Eyes: PERRL, conjunctivae normal, anicteric sclerae ENMT: external ear and nose normal, oropharynx normal Neck: trachea midline, no thyromegaly Respiratory: no respiratory distress Auscultation: + diminished lung sounds; no crackles Cardiovascular: Rate/Rhythm: regular rate and regular rhythm; not tachycardic Heart Sounds: normal S1 and normal S2; no murmur Extremities: + edema (Trace edema bilaterally) Gastrointestinal (Abdomen): Inspection/Auscultation: normal bowel sounds; abdomen not distended Percussion/Palpation: abdomen soft; abdomen nontender Musculoskeletal: Extremities: no lower leg abnormality (Bilateral lower EXTR flexural deformities) Neurologic: awake; + does not move all extremities (Minimal movement involving the right upper extremity only) Lymphatic: no cervical or axillary lymphadenopathy Results & Data Results & Data Vital Signs (Past 12 Hours) Vital Signs Temp Pulse Resp BP Pulse Ox O2 Del Method O2 Flow Rate 03/02/23 14:15 37.6 C H 65 17 120/66 94 Room Air 03/02/23 07:40 Oxymask 5 03/02/23 07:10 36.8 C 64 18 114/61 98 Oxymask 5 Medications Administered Current Inpatient Medications Acetaminophen (Acetaminophen 325 Mg Tab) 650 mg PEG Q4H PRN PRN Reason: Pain or Fever Stop: 03/13/23 10:34 Last Admin: 03/02/23 15:09 Dose: 650 mg Albuterol (Albut/Ipratrop 3mg/0.5mg Neb 3 Ml Vial) 3 ml NEB Q4R PRN; Protocol PRN Reason: Shortness Of Breath Or Wheezing Stop: 03/22/23 02:59 Last Admin: 02/19/23 23:20 Dose: 3 ml Aspirin (Aspirin 81 Mg Chew) 81 mg PEG QAM [facility]ERNIE Stop: 03/19/23 08:59 Last Admin: 03/02/23 08:18 Dose: 81 mg Atorvastatin Calcium (Atorvastatin 20 Mg Tab) 20 mg PEG QPM FERNIE Stop: 03/18/23 20:59 Last Admin: 03/01/23 19:59 Dose: 20 mg Carbidopa/Levodopa (Carbidopa/Levodopa 25/100mg Tab) 1 tab PEG BID FERNIE Stop: 03/18/23 20:59 Last Admin: 03/02/23 08:18 Dose: 1 tab Donepezil HCl (Donepezil Hcl 5 Mg Tab) 5 mg PO QAM [facility] Stop: 03/13/23 08:59 Last Admin: 02/17/23 08:21 Dose: 5 mg Glucagon (Glucagon For Inj 1 Mg Vial) 1 mg SQ UD PRN; Protocol PRN Reason: Hypoglycemia Protocol Stop: 03/06/23 02:57 Glycopyrrolate (Glycopyrrolate 0.2 Mg/Ml Vial) 0.2 mg IV Q3H PRN PRN Reason: secretions Stop: 03/05/23 16:47 Last Admin: 02/21/23 17:55 Dose: 0.2 mg Heparin Sodium (Beef Lung) (Heparin 10 Unit/Ml 5 Ml Flush) 5 ml FLUSH PRN PRN PRN Reason: Flush Stop: 03/08/23 16:07 Last Admin: 02/25/23 02:36 Dose: 5 ml Pantoprazole Sodium 40 mg/ (Syringe) 10 mls @ 5 mls/min IV BID FERNIE Stop: 03/22/23 08:59 Last Admin: 03/02/23 08:17 Dose: 5 mls/min Vancomycin HCl 750 mg/ (Dextrose) 265 mls @ 200 mls/hr IV DAILY@1000 FERNIE; Protocol Stop: 03/17/23 09:59 Last Infusion: 03/02/23 12:39 Dose: Infused Lansoprazole (Lansoprazole 30 Mg Soltab) 30 mg PEG QAM [facility] Stop: 03/19/23 08:59 Last Admin: 02/21/23 08:47 Dose: 30 mg Miscellaneous Information (Vancomycin Consult Active) 1 each N/A UD PRN PRN Reason: Consult Stop: 03/20/23 06:47 Nutritional Formula (Nutren Liqd 2.0 1,000 Ml Bag) 1,000 ml PEG UD [facility]ERNIE; Protocol Stop: 03/22/23 15:44 Last Admin: 03/02/23 08:17 Dose: 1,000 ml Polyethylene Glycol (Polyethylene (Miralax) 17 Gm Pack) 17 gm PEG DAILY PRN PRN Reason: Constipation Stop: 03/05/23 15:43 Last Admin: 02/23/23 09:31 Dose: 17 gm Rifampin (Rifampin 600mg/60ml Udp) 600 mg PEG Q24H FERNIE Stop: 03/07/23 17:59 Last Admin: 03/01/23 18:05 Dose: 600 mg Sterile Water (Tube Feeding Water Flush) 200 ml PEG Q4H FERNIE Stop: 03/27/23 14:59 Last Admin: 03/02/23 15:09 Dose: 200 ml Terazosin HCl (Terazosin Hcl 1 Mg Cap) 2 mg PO HS [facility]ERNIE Stop: 03/22/23 20:59 Last Admin: 03/01/23 21:02 Dose: Not Given
[2023-03-02] MEDS: RIFAMPIN PEG SCH (17:30)
[2023-03-02] MEDS: TERAZOSIN HCL 1 MG CAP PO SCH (20:14)
[2023-03-02] MEDS: ATORVASTATIN 20 MG TAB PEG SCH (20:14)
[2023-03-03] MEDS: TUBE FEEDING WATER FLUSH PEG SCH ×6 (03:01→23:00)
[2023-03-03 06:26] LABS: Basophils # (auto) 0.03 K/uL (0-0.2); Basophils % (auto) 0.2 %; Eosinophils # (auto) 0.36 K/uL (0-0.50); Eosinophils % (auto) 2.8 %; Hematocrit (blood only) 24.7 % (42.0-52.0); Immature Granulocytes # (auto) 0.08 K/uL (0.01-0.20); Immature Granulocytes % (auto) 0.6 %; Lymphocytes # (auto) 1.06 K/uL (1.2-3.4); Lymphocytes % (auto) 8.3 %; Mean Corpuscular Hgb Conc 32.4 g/dL (32.0-36.0); Mean Corpuscular Volume 92.5 fL (80.0-100.0); Mean Platelet Volume 10.8 fL (9.4-12.4); Monocytes # (auto) 0.97 K/uL (0.11-0.59); Monocytes % (auto) 7.6 %; Neutrophils # (auto) 10.29 K/uL (1.40-6.50); Neutrophils % (auto) 80.5 %; Platelet Count 309 K/uL (130-400); RDW Coefficient of Variation 14.7 % (11.5-14.5); RDW Standard Deviation 48.8 fL (36.4-46.3); Red Blood Count 2.67 M/uL (4.70-6.10); White Blood Count 12.79 K/ul (4.8-10.8)
[2023-03-03 06:40] LABS: BUN Creatinine Ratio 27.3 (10-20); Calcium 7.3 mg/dl (8.6-10.3); Creatinine Clr Calc Pharmacy 29.8 ml/min; Est GFR (Non-African American) 27.6 ml/min; Potassium 4.4 mmol/L (3.5-5.1)
[2023-03-03] MEDS: ASPIRIN 81 MG CHEW PEG SCH (07:40)
[2023-03-03] MEDS: CARBIDOPA/LEVODOPA 25/100MG TAB PEG SCH ×2 (07:40→21:03)
[2023-03-03] MEDS: PANTOprazole 40 MG in SYRINGE 0 ML IV SCH ×2 (07:40→21:03)
[2023-03-03] MEDS: VANCOMYCIN HCL 750 MG in DEXTROSE 5% 250 ML IV SCH (09:52)
[2023-03-03] MEDS ORDERED: FLUCONAZOLE 100 MG TAB PO SCH (10:15)
[2023-03-03] MEDS: NUTREN LIQD 2.0 1,000 ML BAG PEG SCH (11:03)
[2023-03-03] MEDS: FLUCONAZOLE 100 MG TAB PEG SCH (11:04)
--- NOTE | 2023-03-03 13:44 | Hospitalist Progress Note ---
Date of Service March 03, 2023 Assessment & Plan (1) Septic shock: (2) Acute hypernatremia: (3) Acute renal failure (ARF): (4) Goals of care, counseling/discussion: (5) Anemia: (6) Wounds and injuries: Plan Patient is an 87 yr male presents from [facility] with septic shock, renal failure. Revoked hospice for ED admission per request who was traveling from [place]. Pt was intubated. Admitting team confirmed No CPR, defibrillation, cardioversion in the event of cardiac arrest. Palliative care evaluated. He is being managed for the following: Fever- continued to spike fever despite being on vanc/unasyn/rifampin. Blood clx is so far negative. Changed unasyn to zosyn, renally dosed and monitor. No more fever since eighth of this month We will continue current antibiotic We will order blood cultures as advised No more fever and or signs of infection We will continue current antibiotic as per instruction from the ID No more fever and or chills Condition remains stable without any signs and or symptoms of active infection Plan to discharge the patient in [facility] when there is a bed Minimal fever noted-we will get repeat blood cultures No more shortness of breath-will not do any chest x-ray right now No more fever and repeat blood culture is pending Liliana infection in the urine Catheter changed and repeat test came back positive for Liliana Discussed with the pharmacist Started on Diflucan through the G-tube Anemia: Hemoglobin >7, no active bleeding. PBS without Schistocytes, normal reticulocyte count, hemolysis less likely. Iron deficiency present. Poor nutrition does not help. Cont iron supplementation and proper nutrition. Hemoglobin is 7.4 as of 02/25/2023 Will check hemoglobin if it is less than 7 will transfuse Hemoglobin dropped down to 6.6 and will give 2 units of blood transfusion Hemoglobin went up to more than 9 and the patient has been feeling better Septic Shock with staph ([employer]IST[employer] not lugdunensis) bacteremia: possible sources include skin vs pneumonia and UTI with indwelling Villasenor. Weaned off pressors and extubated 02/06. Pansensitive Klebsiella in sputum. Liliana in sputum likely a contaminant Urine Culture: Noncontributory (H/O chronic Villasenor, recent h/o of UTI) ECHO: EF 50 to 55%, bioprosthetic aortic valve, mild mitral regurgitation, grade 2 diastolic dysfunction, mild tricuspid regurgitation High risk for aspiration pneumonia. Known recent month long admission with urosepsis; was recently on Hospice Repeat blood cultures were negative. Initially admitted on Vanc/Zosyn 02/03 Plan will be total 6 weeks of Vancomycin with rifampin added from 02/16/23 with surveillance cultures (2 sets from the periphery) 5-7 days post completion of abx therapy. Continue current antibiotics and will change according to the plan Discussed with the about discharging him on approval to go to the [facility] Severe protein calorie malnutrition H/O Esophageal dysmotility Dysphagia: Speech therapy involved in his care this admission. Palliative care involved, Patient's POA now agreeing to no escalation of care (pressors, CPR, intubation). She declines COURT. However, POA would like PEG feeds. PEG placed 02/14-tolerating feeds without residual Remains high risk for aspiration Gely Melissa cannot accept him back with PEG in place PEG feed held due to vomiting, resume peg feed at low rate, and upto 50% of goal for now. Consider pr bowel regimen to help w/ constipation as needed, moved large bowel per RN. Keep HOB at 30 degrees/aspiration precautions. No problem with the PEG feeding-electrolytes unremarkable Acute hypoxic respiratory failure Secondary to left lower lobe pneumonia likely due to aspiration Was weaned down to 2L NC O2, had vomiting and aspiration event 02/19, TF was held, and unasyn added 02/20. Now on 12 L O2 via oxymask, wean down O2 as james. Still requiring high flow oxygen to maintain saturation We will repeat chest x-ray tomorrow-chest x-ray showing cardiomegaly with pulmonary edema and a small pleural effusion Will give 1 dose of Lasix today We will give another dose of Lasix today and discussed with the He is requiring about 5 L of oxygen to maintain saturation Requiring 5 L to maintain saturation Acute metabolic encephalopathy/known Dementia Secondary to above, in setting of Lewy body dementia and Hypernatremia (Na was 164 on admission 02/03), sodium now normal - 144 CT head: No significant change compared to the prior study. No acute intracranial abnormality. Elev. troponin: Troponin level 400's on admission - likely type II ND, secondary to above. No further workup at this time. Acute Hypernatremia: resolved. Acute Renal Failure: present at admission which was resolved. Had another bump in Cr on 02/20, d/w nephro - no ivf/avoid nephrotoxics/hold vanc until acceptable trough level achieved. appreciate recs. Pt's doesn't want villasenor cath, c/w intermittent st cath to avoid obstruction. Nephro managing Chronic Villasenor/urinary retention: Villasenor was replaced this admission. doesn't want villasenor, TOV done, currently on intermittent cath- would write for three times daily on discharge and [facility] urology is aware of his need for follow-up. would like to consider TURP or other prostate surgery in the future For now, will cont with alpha-ban. The only one that will go through the PEG is terazosin This capsule has to be melted in warm water for 15 minutes and then given as a solution through the PEG. Villasenor were changed and urine will be sent for repeat culture and sensitivity Repeat urine culture is not showing any growth WOUNDS: Multiple sites of ulceration with necrosis There are multiple pressure sites for skin breakdown This was a possible source for his sepsis this admission Wound care nurse consulted. 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 She is agreeable for her to go to rehab and get more physical therapy on top of continuing the current management Admission and Anticipated Discharge Date Admission Date: February 03, 2023 Subjective 02/25/2023 Patient was seen and examined in presence of the He remains nonverbal but stable Looks brighter today as per the Not in any distress 02/26/2023 The patient was seen and examined in medical floor He has been brighter today and not in any acute distress 02/27/2023 The patient was seen and examined in medical floor He noted to have a low hemoglobin of 6.5 without any other symptoms He will up to unit of blood transfusion Looks much better 02/28/2023 The patient was seen and examined in medical floor He remains stable and does not have any distress at rest He has had enough diuresis and requiring about 5 L of oxygen to maintain saturation now Oral relations have resolved 03/01/2023 The patient was seen and examined in medical floor He has been stable and not in any acute distress He requires 5 L of oxygen to maintain saturation Discussed with the for possible palliative care consult but the was not agreeable 03/02/2023 Patient was seen and examined in medical floor He has minimal fever with sweating No other acute distress 03/03/2023 The patient was seen and examined in medical floor He has been nonverbal but alert and awake Does not follow any commands No fever and or chills Review of Systems Review of Systems: ROS could not be performed 2/2 dementia. Physical Exam Physical Exam: Lying in bed comfortably Constitutional: well developed, well nourished, + ill appearing and average body habitus Eyes: PERRL, conjunctivae normal, anicteric sclerae ENMT: external ear and nose normal, oropharynx normal Neck: trachea midline, no thyromegaly Respiratory: no respiratory distress Auscultation: + diminished lung sounds; no crackles Cardiovascular: Rate/Rhythm: regular rate and regular rhythm; not tachycardic Heart Sounds: normal S1 and normal S2; no murmur Extremities: + edema (Trace edema bilaterally) Gastrointestinal (Abdomen): Inspection/Auscultation: normal bowel sounds; abdomen not distended Percussion/Palpation: abdomen soft; abdomen nontender Musculoskeletal: Extremities: no lower leg abnormality (Bilateral lower EXTR flexural deformities) Neurologic: awake; + does not move all extremities (Minimal movement involving the right upper extremity only) Lymphatic: no cervical or axillary lymphadenopathy Results & Data Results & Data Vital Signs (Past 12 Hours) Vital Signs Temp Pulse Resp BP Pulse Ox O2 Del Method O2 Flow Rate 03/03/23 07:40 Oxymask 5 03/03/23 07:11 37.0 C 73 16 123/61 97 Oxymask Laboratory Results Short CBC 03/03/23 Range/Units 06:02 WBC 12.79 H (4.8-10.8) K/ul Hgb 8.0 L (14.0-18.0) g/dl Hct 24.7 L (42.0-52.0) % Plt Count 309 (130-400) K/uL BMP 03/03/23 06:02 Sodium 140 Potassium 4.4 Chloride 104 Carbon Dioxide 31 BUN 57 H Creatinine 2.09 H Glucose 157 H Calcium 7.3 L Medications Administered Current Inpatient Medications Acetaminophen (Acetaminophen 325 Mg Tab) 650 mg PEG Q4H PRN PRN Reason: Pain or Fever Stop: 03/13/23 10:34 Last Admin: 03/02/23 15:09 Dose: 650 mg Albuterol (Albut/Ipratrop 3mg/0.5mg Neb 3 Ml Vial) 3 ml NEB Q4R PRN; Protocol PRN Reason: Shortness Of Breath Or Wheezing Stop: 03/22/23 02:59 Last Admin: 02/19/23 23:20 Dose: 3 ml Aspirin (Aspirin 81 Mg Chew) 81 mg PEG QAM [facility] Stop: 03/19/23 08:59 Last Admin: 03/03/23 07:40 Dose: 81 mg Atorvastatin Calcium (Atorvastatin 20 Mg Tab) 20 mg PEG QPM FERNIE Stop: 03/18/23 20:59 Last Admin: 03/02/23 20:14 Dose: 20 mg Carbidopa/Levodopa (Carbidopa/Levodopa 25/100mg Tab) 1 tab PEG BID FERNIE Stop: 03/18/23 20:59 Last Admin: 03/03/23 07:40 Dose: 1 tab Donepezil HCl (Donepezil Hcl 5 Mg Tab) 5 mg PO QAM FERNIE Stop: 03/13/23 08:59 Last Admin: 02/17/23 08:21 Dose: 5 mg Fluconazole (Fluconazole 100 Mg Tab) 200 mg PEG QAM FERNIE; Protocol Stop: 03/13/23 10:14 Last Admin: 03/03/23 11:04 Dose: 200 mg Glucagon (Glucagon For Inj 1 Mg Vial) 1 mg SQ UD PRN; Protocol PRN Reason: Hypoglycemia Protocol Stop: 03/06/23 02:57 Glycopyrrolate (Glycopyrrolate 0.2 Mg/Ml Vial) 0.2 mg IV Q3H PRN PRN Reason: secretions Stop: 03/05/23 16:47 Last Admin: 02/21/23 17:55 Dose: 0.2 mg Heparin Sodium (Beef Lung) (Heparin 10 Unit/Ml 5 Ml Flush) 5 ml FLUSH PRN PRN PRN Reason: Flush Stop: 03/08/23 16:07 Last Admin: 02/25/23 02:36 Dose: 5 ml Pantoprazole Sodium 40 mg/ (Syringe) 10 mls @ 5 mls/min IV BID FERNIE Stop: 03/22/23 08:59 Last Admin: 03/03/23 07:40 Dose: 5 mls/min Vancomycin HCl 750 mg/ (Dextrose) 265 mls @ 200 mls/hr IV DAILY@1000 FERNIE; Protocol Stop: 03/17/23 09:59 Last Infusion: 03/03/23 11:13 Dose: Infused Lansoprazole (Lansoprazole 30 Mg Soltab) 30 mg PEG QAM FERNIE Stop: 03/19/23 08:59 Last Admin: 02/21/23 08:47 Dose: 30 mg Miscellaneous Information (Vancomycin Consult Active) 1 each N/A UD PRN PRN Reason: Consult Stop: 03/20/23 06:47 Nutritional Formula (Nutren Liqd 2.0 1,000 Ml Bag) 1,000 ml PEG UD FERNIE; Protocol Stop: 03/22/23 15:44 Last Admin: 03/03/23 11:03 Dose: 1,000 ml Polyethylene Glycol (Polyethylene (Miralax) 17 Gm Pack) 17 gm PEG DAILY PRN PRN Reason: Constipation Stop: 03/05/23 15:43 Last Admin: 02/23/23 09:31 Dose: 17 gm Rifampin (Rifampin 600mg/60ml Udp) 600 mg PEG Q24H FERNIE Stop: 03/07/23 17:59 Last Admin: 03/02/23 17:30 Dose: 600 mg Sterile Water (Tube Feeding Water Flush) 200 ml PEG Q4H FERNIE Stop: 03/27/23 14:59 Last Admin: 03/03/23 11:12 Dose: 200 ml Terazosin HCl (Terazosin Hcl 1 Mg Cap) 2 mg PO HS FERNIE Stop: 03/22/23 20:59 Last Admin: 03/02/23 20:14 Dose: 2 mg
[2023-03-03] MEDS: GLYCOPYRROLATE 0.2 MG/ML VIAL IV PRN (14:25)
[2023-03-03] MEDS: RIFAMPIN PEG SCH (17:58)
[2023-03-03] MEDS: ATORVASTATIN 20 MG TAB PEG SCH (21:03)
[2023-03-03] MEDS: TERAZOSIN HCL 1 MG CAP PO SCH (21:04)
[2023-03-04] MEDS: TUBE FEEDING WATER FLUSH PEG SCH ×6 (03:58→22:54)
[2023-03-04] MEDS: CARBIDOPA/LEVODOPA 25/100MG TAB PEG SCH ×2 (08:48→22:54)
[2023-03-04] MEDS: FLUCONAZOLE 100 MG TAB PEG SCH (08:48)
[2023-03-04] MEDS: PANTOprazole 40 MG in SYRINGE 0 ML IV SCH (08:49)
[2023-03-04] MEDS: VANCOMYCIN HCL 750 MG in DEXTROSE 5% 250 ML IV SCH (11:24)
[2023-03-04] MEDS: ASPIRIN 81 MG CHEW PEG SCH (13:00)
--- NOTE | 2023-03-04 15:51 | Hospitalist Progress Note ---
Date of Service March 04, 2023 Assessment & Plan (1) Septic shock: (2) Acute hypernatremia: (3) Acute renal failure (ARF): (4) Goals of care, counseling/discussion: (5) Anemia: (6) Wounds and injuries: Plan Patient is an 87 yr male presents from [facility] with septic shock, renal failure. Revoked hospice for ED admission per request who was traveling from [place]. Pt was intubated. Admitting team confirmed No CPR, defibrillation, cardioversion in the event of cardiac arrest. Palliative care evaluated. He is being managed for the following: Fever- continued to spike fever despite being on vanc/unasyn/rifampin. Blood clx is so far negative. Changed unasyn to zosyn, renally dosed and monitor. No more fever since eighth of this month We will continue current antibiotic We will order blood cultures as advised No more fever and or signs of infection We will continue current antibiotic as per instruction from the ID No more fever and or chills Condition remains stable without any signs and or symptoms of active infection Plan to discharge the patient in [facility] when there is a bed Minimal fever noted-we will get repeat blood cultures No more shortness of breath-will not do any chest x-ray right now Repeat blood cultures have been negative Liliana infection in the urine Catheter changed and repeat test came back positive for Liliana Discussed with the pharmacist Started on Diflucan through the G-tube Remains stable Anemia: Hemoglobin >7, no active bleeding. PBS without Schistocytes, normal reticulocyte count, hemolysis less likely. Iron deficiency present. Poor nutrition does not help. Cont iron supplementation and proper nutrition. Hemoglobin is 7.4 as of 02/25/2023 Will check hemoglobin if it is less than 7 will transfuse Hemoglobin dropped down to 6.6 and will give 2 units of blood transfusion Hemoglobin went up to more than 9 and the patient has been feeling better We will check his blood counts tomorrow again Septic Shock with staph (ENERGY RATER not lugdunensis) bacteremia: possible sources include skin vs pneumonia and UTI with indwelling Villasenor. Weaned off pressors and extubated 02/06. Pansensitive Klebsiella in sputum. Liliana in sputum likely a contaminant Urine Culture: Noncontributory (H/O chronic Villasenor, recent h/o of UTI) ECHO: EF 50 to 55%, bioprosthetic aortic valve, mild mitral regurgitation, grade 2 diastolic dysfunction, mild tricuspid regurgitation High risk for aspiration pneumonia. Known recent month long admission with urosepsis; was recently on Hospice Repeat blood cultures were negative. Initially admitted on Vanc/Zosyn 02/03 Plan will be total 6 weeks of Vancomycin with rifampin added from 02/16/23 with surveillance cultures (2 sets from the periphery) 5-7 days post completion of abx therapy. Continue current antibiotics and will change according to the plan Discussed with the about discharging him on approval to go to the [facility]-awaiting placement Severe protein calorie malnutrition H/O Esophageal dysmotility Dysphagia: Speech therapy involved in his care this admission. Palliative care involved, Patient's POA now agreeing to no escalation of care (pressors, CPR, intubation). She declines COURT. However, POA would like PEG feeds. PEG placed 02/14-tolerating feeds without residual Remains high risk for aspiration [facility] cannot accept him back with PEG in place PEG feed held due to vomiting, resume peg feed at low rate, and upto 50% of goal for now. Consider pr bowel regimen to help w/ constipation as needed, moved large bowel per RN. Keep HOB at 30 degrees/aspiration precautions. No problem with the PEG feeding-electrolytes unremarkable Continue with the PEG tube feeding Acute hypoxic respiratory failure Secondary to left lower lobe pneumonia likely due to aspiration Was weaned down to 2L NC O2, had vomiting and aspiration event 02/19, TF was held, and unasyn added 02/20. Now on 12 L O2 via oxymask, wean down O2 as james. Still requiring high flow oxygen to maintain saturation We will repeat chest x-ray tomorrow-chest x-ray showing cardiomegaly with pulmonary edema and a small pleural effusion Will give 1 dose of Lasix today We will give another dose of Lasix today and discussed with the He is requiring about 5 L of oxygen to maintain saturation Requiring 5 L to maintain saturation Acute metabolic encephalopathy/known Dementia Secondary to above, in setting of Lewy body dementia and Hypernatremia (Na was 164 on admission 02/03), sodium now normal - 144 CT head: No significant change compared to the prior study. No acute intracranial abnormality. Elev. troponin: Troponin level 400's on admission - likely type II CO, secondary to above. No further workup at this time. Acute Hypernatremia: resolved. Acute Renal Failure: present at admission which was resolved. Had another bump in Cr on 02/20, d/w nephro - no ivf/avoid nephrotoxics/hold vanc until acceptable trough level achieved. appreciate recs. Pt's doesn't want villasenor cath, c/w intermittent st cath to avoid obstruction. Nephro managing Chronic Villasenor/urinary retention: Villasenor was replaced this admission. doesn't want villasenor, TOV done, currently on intermittent cath- would write for three times daily on discharge and [facility] urology is aware of his need for follow-up. would like to consider TURP or other prostate surgery in the future For now, will cont with alpha-ban. The only one that will go through the PEG is terazosin This capsule has to be melted in warm water for 15 minutes and then given as a solution through the PEG. Villasenor were changed and urine will be sent for repeat culture and sensitivity Repeat urine culture is not showing any growth WOUNDS: Multiple sites of ulceration with necrosis There are multiple pressure sites for skin breakdown This was a possible source for his sepsis this admission Wound care nurse consulted. 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 She is agreeable for her to go to rehab and get more physical therapy on top of continuing the current management Admission and Anticipated Discharge Date Admission Date: February 03, 2023 Subjective 02/25/2023 Patient was seen and examined in presence of the He remains nonverbal but stable Looks brighter today as per the Not in any distress 02/26/2023 The patient was seen and examined in medical floor He has been brighter today and not in any acute distress 02/27/2023 The patient was seen and examined in medical floor He noted to have a low hemoglobin of 6.5 without any other symptoms He will up to unit of blood transfusion Looks much better 02/28/2023 The patient was seen and examined in medical floor He remains stable and does not have any distress at rest He has had enough diuresis and requiring about 5 L of oxygen to maintain saturation now Oral relations have resolved 03/01/2023 The patient was seen and examined in medical floor He has been stable and not in any acute distress He requires 5 L of oxygen to maintain saturation Discussed with the for possible palliative care consult but the was not agreeable 03/02/2023 Patient was seen and examined in medical floor He has minimal fever with sweating No other acute distress 03/03/2023 The patient was seen and examined in medical floor He has been nonverbal but alert and awake Does not follow any commands No fever and or chills 05/04/2023 The patient was seen and examined in medical floor in presence of the He has been stable and did not have any more fever and no chills No other distress at rest Review of Systems Review of Systems: ROS could not be performed 2/2 dementia. Physical Exam Physical Exam: Lying in bed comfortably Constitutional: well developed, well nourished, + ill appearing and average body habitus Eyes: PERRL, conjunctivae normal, anicteric sclerae ENMT: external ear and nose normal, oropharynx normal Neck: trachea midline, no thyromegaly Respiratory: no respiratory distress Auscultation: + diminished lung sounds; no crackles Cardiovascular: Rate/Rhythm: regular rate and regular rhythm; not tachycardic Heart Sounds: normal S1 and normal S2; no murmur Extremities: + edema (Trace edema bilaterally) Gastrointestinal (Abdomen): Inspection/Auscultation: normal bowel sounds; abdomen not distended Percussion/Palpation: abdomen soft; abdomen nontender Musculoskeletal: Extremities: no lower leg abnormality (Bilateral lower EXTR flexural deformities) Neurologic: awake; + does not move all extremities (Minimal movement involving the right upper extremity only) Lymphatic: no cervical or axillary lymphadenopathy Results & Data Results & Data Vital Signs (Past 12 Hours) Vital Signs Temp Pulse Resp BP BP Pulse Ox O2 Del Method 03/04/23 15:21 144/65 H 03/04/23 15:00 37.1 C 62 16 151/69 H 96 Oxymask 03/04/23 10:42 Oxymask 03/04/23 07:25 37.0 C 65 16 118/55 L 99 Oxymask O2 Flow Rate 03/04/23 15:21 03/04/23 15:00 5 03/04/23 10:42 5 03/04/23 07:25 5 Medications Administered Current Inpatient Medications Acetaminophen (Acetaminophen 325 Mg Tab) 650 mg PEG Q4H PRN PRN Reason: Pain or Fever Stop: 03/13/23 10:34 Last Admin: 03/02/23 15:09 Dose: 650 mg Albuterol (Albut/Ipratrop 3mg/0.5mg Neb 3 Ml Vial) 3 ml NEB Q4R PRN; Protocol PRN Reason: Shortness Of Breath Or Wheezing Stop: 03/22/23 02:59 Last Admin: 02/19/23 23:20 Dose: 3 ml Aspirin (Aspirin 81 Mg Chew) 81 mg PEG QAM FERNIE Stop: 03/19/23 08:59 Last Admin: 03/03/23 07:40 Dose: 81 mg Atorvastatin Calcium (Atorvastatin 20 Mg Tab) 20 mg PEG QPM FERNIE Stop: 03/18/23 20:59 Last Admin: 03/03/23 21:03 Dose: 20 mg Carbidopa/Levodopa (Carbidopa/Levodopa 25/100mg Tab) 1 tab PEG BID FERNIE Stop: 03/18/23 20:59 Last Admin: 03/04/23 08:48 Dose: 1 tab Donepezil HCl (Donepezil Hcl 5 Mg Tab) 5 mg PO QAM FERNIE Stop: 03/13/23 08:59 Last Admin: 02/17/23 08:21 Dose: 5 mg Fluconazole (Fluconazole 100 Mg Tab) 200 mg PEG QAM FERNIE; Protocol Stop: 03/13/23 10:14 Last Admin: 03/04/23 08:48 Dose: 200 mg Glucagon (Glucagon For Inj 1 Mg Vial) 1 mg SQ UD PRN; Protocol PRN Reason: Hypoglycemia Protocol Stop: 03/06/23 02:57 Glycopyrrolate (Glycopyrrolate 0.2 Mg/Ml Vial) 0.2 mg IV Q3H PRN PRN Reason: secretions Stop: 03/05/23 16:47 Last Admin: 03/03/23 14:25 Dose: 0.2 mg Heparin Sodium (Beef Lung) (Heparin 10 Unit/Ml 5 Ml Flush) 5 ml FLUSH PRN PRN PRN Reason: Flush Stop: 03/08/23 16:07 Last Admin: 03/03/23 14:25 Dose: 5 ml Vancomycin HCl 750 mg/ (Dextrose) 265 mls @ 200 mls/hr IV DAILY@1000 FERNIE; Protocol Stop: 03/17/23 09:59 Last Infusion: 03/04/23 13:08 Dose: Infused Lansoprazole (Lansoprazole 30 Mg Soltab) 30 mg PEG QAM [facility] Stop: 03/19/23 08:59 Last Admin: 02/21/23 08:47 Dose: 30 mg Lansoprazole (Lansoprazole 30 Mg Soltab) 30 mg PEG BID [facility] Stop: 04/03/23 20:59 Miscellaneous Information (Vancomycin Consult Active) 1 each N/A UD PRN PRN Reason: Consult Stop: 03/20/23 06:47 Nutritional Formula (Nutren Liqd 2.0 1,000 Ml Bag) 1,000 ml PEG UD [facility]; Protocol Stop: 03/22/23 15:44 Last Admin: 03/03/23 11:03 Dose: 1,000 ml Polyethylene Glycol (Polyethylene (Miralax) 17 Gm Pack) 17 gm PEG DAILY PRN PRN Reason: Constipation Stop: 03/05/23 15:43 Last Admin: 02/23/23 09:31 Dose: 17 gm Rifampin (Rifampin 600mg/60ml Udp) 600 mg PEG Q24H FERNIE Stop: 03/07/23 17:59 Last Admin: 03/03/23 17:58 Dose: 600 mg Sterile Water (Tube Feeding Water Flush) 200 ml PEG Q4H [facility] Stop: 03/27/23 14:59 Last Admin: 03/04/23 11:26 Dose: 200 ml Terazosin HCl (Terazosin Hcl 1 Mg Cap) 2 mg PO HS [facility] Stop: 03/22/23 20:59 Last Admin: 03/03/23 21:04 Dose: 2 mg
[2023-03-04] MEDS: RIFAMPIN PEG SCH (19:59)
[2023-03-04] MEDS: LANSOPRAZOLE 30 MG SOLTAB PEG SCH (22:54)
[2023-03-04] MEDS: TERAZOSIN HCL 1 MG CAP PO SCH (22:54)
[2023-03-04] MEDS: ATORVASTATIN 20 MG TAB PEG SCH (22:54)
[2023-03-05] MEDS: TUBE FEEDING WATER FLUSH PEG SCH ×6 (03:35→22:30)
[2023-03-05] MEDS: CARBIDOPA/LEVODOPA 25/100MG TAB PEG SCH ×2 (08:17→20:31)
[2023-03-05] MEDS: ASPIRIN 81 MG CHEW PEG SCH (08:17)
[2023-03-05] MEDS: FLUCONAZOLE 100 MG TAB PEG SCH (08:17)
[2023-03-05] MEDS: LANSOPRAZOLE 30 MG SOLTAB PEG SCH ×2 (08:18→20:32)
[2023-03-05 10:04] LABS: Basophils # (auto) 0.04 K/uL (0-0.2); Basophils % (auto) 0.3 %; Eosinophils # (auto) 0.26 K/uL (0-0.50); Eosinophils % (auto) 2.2 %; Hematocrit (blood only) 25.2 % (42.0-52.0); Hemoglobin 8.3 g/dl (14.0-18.0); Immature Granulocytes # (auto) 0.06 K/uL (0.01-0.20); Immature Granulocytes % (auto) 0.5 %; Lymphocytes # (auto) 0.94 K/uL (1.2-3.4); Mean Corpuscular Hemoglobin 30.1 pg (25.0-34.0); Mean Corpuscular Hgb Conc 32.9 g/dL (32.0-36.0); Mean Corpuscular Volume 91.3 fL (80.0-100.0); Mean Platelet Volume 10.8 fL (9.4-12.4); Monocytes # (auto) 1.08 K/uL (0.11-0.59); Monocytes % (auto) 9.2 %; Neutrophils # (auto) 9.34 K/uL (1.40-6.50); Neutrophils % (auto) 79.8 %; Platelet Count 341 K/uL (130-400); RDW Coefficient of Variation 14.8 % (11.5-14.5); RDW Standard Deviation 49.1 fL (36.4-46.3); Red Blood Count 2.76 M/uL (4.70-6.10); White Blood Count 11.72 K/ul (4.8-10.8)
[2023-03-05 10:18] LABS: Albumin Globulin Ratio 0.5 (0.9-2); Albumin Level 1.9 gm/dl (3.4-5.0); Bilirubin,Total 0.3 mg/dl (0.2-1.0); Calcium 7.4 mg/dl (8.6-10.3); Creatinine Clr Calc Pharmacy 31.1 ml/min; Est GFR (African American) 33.8 ml/min; Est GFR (Non-African American) 29.1 ml/min; Globulin 3.6 gm/dl (2.5-4.0); Potassium 4.4 mmol/L (3.5-5.1); Total Protein 5.5 gm/dl (6.0-8.3)
[2023-03-05] MEDS: VANCOMYCIN HCL 750 MG in DEXTROSE 5% 250 ML IV SCH (11:12)
--- NOTE | 2023-03-05 11:48 | Nephrology Progress Note ---
Date of Service March 05, 2023 Assessment & Plan (1) Acute renal failure (ARF): Plan: Nephrology following intermittently for multiple episodes of acute kidney injury this admission. Earlier this admission he had prerenal HERSON with peak creatinine 5.6 February 04; improved to approximately 1.2-1.3 creatinine then recurrent acute kidney injury in the setting of aspiration pneumonia diagnosis and therapy February 20 w/ creatinine going from 1 > 1.7 in 24 hrs and now plateau'd at about 2 since February 21; not oliguric; did require Ferris replacement in this timeframe. Per infectious diseases recommendations, he is on 6 weeks of empiric vancomycin with rifampin with trough level 15-20 and this to be followed indefinitely with antibiotic suppression doxycycline 100 mg twice daily due to concern for possible CIED infection or endocarditis prior to admission baseline creatinine 0.9; was 1.3 when infectious diseases evaluated him on February 15. Currently on daily vancomycin and rifampin and fluconazole; also on free water flushes 200 mL every 4 hours and 1 L of tube feeds daily >>recommend lowering fluconazole dose to 100 mg daily for rest of his course; will d/w Dr Daley >>continue to dose vanco by level: Next trough planned for prior to dose for tomorrow morning -avoid further IV contrast for now unless life/limb saving -would not give lasix at this time unless respiratory status worsening > if needed would give 40 mg IV -would not give IV fluids at this time -continue as tolerated tube feeds, free water flushes -avoid NSAID >continue to discuss goals of care Admission and Anticipated Discharge Date Admission Date: February 03, 2023 Subjective seen on rounds late morning. no acute interval clinical events. remains unable to communicate. had been concerned about scrotal hilary and scrotal edema but feels these are improving. Review of Systems Review of Systems: Unobtainable due to cognitive status Physical Exam Constitutional: well developed, + thin, + frail appearing and + lethargic; no acute distress Eyes: opens eyes briefly today; does not track ENMT: Ears: no external ear abnormality Nose: no external nose abnormality Mouth: + dry oral mucous membranes and + poor dentition Neck: no nuchal rigidity Respiratory: normal respiratory effort; no cough Auscultation: + diminished lung sounds Cardiovascular: Rate/Rhythm: regular rate and regular rhythm Heart Sounds: + murmur Extremities: no edema Gastrointestinal (Abdomen): Inspection/Auscultation: normal bowel sounds Percussion/Palpation: abdomen soft (PEG present); abdomen nontender Musculoskeletal: Extremities: strength 5/5 throughout, + abnormal strength, + abnormal muscle tone (contractures) and + muscle atrophy Skin: no rashes, warm and dry Results & Data Vital Signs (Past 12 Hours) Vital Signs Temp Pulse Resp BP Pulse Ox O2 Del Method O2 Flow Rate 03/05/23 07:24 37.4 C 72 20 111/43 L 97 Oxymask 5 Laboratory Results 03/05/23 09:27 03/05/23 09:27 [place] running in the mid to high teens February 22 through the
--- NOTE | 2023-03-05 18:07 | Hospitalist Progress Note ---
Date of Service March 05, 2023 Assessment & Plan (1) Septic shock: (2) Acute hypernatremia: (3) Acute renal failure (ARF): (4) Goals of care, counseling/discussion: (5) Anemia: (6) Wounds and injuries: Plan Patient is an 87 yr male presents from [facility] with septic shock, renal failure. Revoked hospice for ED admission per request who was traveling from [place]. Pt was intubated. Admitting team confirmed No CPR, defibrillation, cardioversion in the event of cardiac arrest. Palliative care evaluated. He is being managed for the following: Fever- continued to spike fever despite being on vanc/unasyn/rifampin. Blood clx is so far negative. Changed unasyn to zosyn, renally dosed and monitor. No more fever since eighth of this month We will continue current antibiotic We will order blood cultures as advised No more fever and or signs of infection We will continue current antibiotic as per instruction from the ID No more fever and or chills Condition remains stable without any signs and or symptoms of active infection Plan to discharge the patient in [facility] when there is a bed Minimal fever noted-we will get repeat blood cultures Temperature noted to be 37.8 yesterday No sweating and no more increase in temperature and the white count remains minimally elevated at 11.72 We will continue current antibiotic and if any more fever will get blood cultures Liliana infection in the urine Catheter changed and repeat test came back positive for Liliana Discussed with the pharmacist Started on Diflucan through the G-tube Remains stable-we will continue Diflucan for about 10 days Anemia: Hemoglobin >7, no active bleeding. PBS without Schistocytes, normal reticulocyte count, hemolysis less likely. Iron deficiency present. Poor nutrition does not help. Cont iron supplementation and proper nutrition. Hemoglobin is 7.4 as of 02/25/2023 Will check hemoglobin if it is less than 7 will transfuse Hemoglobin dropped down to 6.6 and will give 2 units of blood transfusion Hemoglobin went up to more than 9 and the patient has been feeling better Hemoglobin remains stable at 8.3 as of 03/05/2023 Septic Shock with staph ([employer] not lugdunensis) bacteremia: possible sources include skin vs pneumonia and UTI with indwelling Villasenor. Weaned off pressors and extubated 02/06. Pansensitive Klebsiella in sputum. Liliana in sputum likely a contaminant Urine Culture: Noncontributory (H/O chronic Villasenor, recent h/o of UTI) ECHO: EF 50 to 55%, bioprosthetic aortic valve, mild mitral regurgitation, grade 2 diastolic dysfunction, mild tricuspid regurgitation High risk for aspiration pneumonia. Known recent month long admission with urosepsis; was recently on Hospice Repeat blood cultures were negative. Initially admitted on Vanc/Zosyn 02/03 Plan will be total 6 weeks of Vancomycin with rifampin added from 02/16/23 with surveillance cultures (2 sets from the periphery) 5-7 days post completion of abx therapy. Continue current antibiotics and will change according to the plan Discussed with the about discharging him on approval to go to the [facility]-awaiting placement We will get detailed instruction from the wound care nurse about care of decubiti He will have an air mattress Severe protein calorie malnutrition H/O Esophageal dysmotility Dysphagia: Speech therapy involved in his care this admission. Palliative care involved, Patient's POA now agreeing to no escalation of care (pressors, CPR, intubation). She declines COURT. However, POA would like PEG feeds. PEG placed 02/14-tolerating feeds without residual Remains high risk for aspiration [facility] cannot accept him back with PEG in place PEG feed held due to vomiting, resume peg feed at low rate, and upto 50% of goal for now. Consider pr bowel regimen to help w/ constipation as needed, moved large bowel per RN. Keep HOB at 30 degrees/aspiration precautions. No problem with the PEG feeding-electrolytes unremarkable Continue with the PEG tube feeding Acute hypoxic respiratory failure Secondary to left lower lobe pneumonia likely due to aspiration Was weaned down to 2L NC O2, had vomiting and aspiration event 02/19, TF was held, and unasyn added 02/20. Now on 12 L O2 via oxymask, wean down O2 as james. Still requiring high flow oxygen to maintain saturation We will repeat chest x-ray tomorrow-chest x-ray showing cardiomegaly with pulmonary edema and a small pleural effusion Will give 1 dose of Lasix today We will give another dose of Lasix today and discussed with the He is requiring about 5 L of oxygen to maintain saturation Requiring 5 L to maintain saturation Acute metabolic encephalopathy/known Dementia Secondary to above, in setting of Lewy body dementia and Hypernatremia (Na was 164 on admission 02/03), sodium now normal - 144 CT head: No significant change compared to the prior study. No acute intracranial abnormality. Elev. troponin: Troponin level 400's on admission - likely type II PA, secondary to above. No further workup at this time. Acute Hypernatremia: resolved. Acute Renal Failure: present at admission which was resolved. Had another bump in Cr on 02/20, d/w nephro - no ivf/avoid nephrotoxics/hold vanc until acceptable trough level achieved. appreciate recs. Pt's doesn't want villasenor cath, c/w intermittent st cath to avoid obstruction. Nephro managing Chronic Villasenor/urinary retention: Villasenor was replaced this admission. doesn't want villasenor, TOV done, currently on intermittent cath- would write for three times daily on discharge and [facility] is aware of his need for follow-up. would like to consider TURP or other prostate surgery in the future For now, will cont with alpha-ban. The only one that will go through the PEG is terazosin This capsule has to be melted in warm water for 15 minutes and then given as a solution through the PEG. Villasenor were changed and urine will be sent for repeat culture and sensitivity With culture grew Liliana albicans and started on oral Diflucan WOUNDS: Multiple sites of ulceration with necrosis There are multiple pressure sites for skin breakdown This was a possible source for his sepsis this admission Wound care nurse consulted. 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 She is agreeable for her to go to rehab and get more physical therapy on top of continuing the current management Discussed with the and possible discharge to rehab when there is a bed Admission and Anticipated Discharge Date Admission Date: February 03, 2023 Subjective 02/25/2023 Patient was seen and examined in presence of the He remains nonverbal but stable Looks brighter today as per the Not in any distress 02/26/2023 The patient was seen and examined in medical floor He has been brighter today and not in any acute distress 02/27/2023 The patient was seen and examined in medical floor He noted to have a low hemoglobin of 6.5 without any other symptoms He will up to unit of blood transfusion Looks much better 02/28/2023 The patient was seen and examined in medical floor He remains stable and does not have any distress at rest He has had enough diuresis and requiring about 5 L of oxygen to maintain saturation now Oral relations have resolved 03/01/2023 The patient was seen and examined in medical floor He has been stable and not in any acute distress He requires 5 L of oxygen to maintain saturation Discussed with the for possible palliative care consult but the was not agreeable 03/02/2023 Patient was seen and examined in medical floor He has minimal fever with sweating No other acute distress 03/03/2023 The patient was seen and examined in medical floor He has been nonverbal but alert and awake Does not follow any commands No fever and or chills 03/04/2023 The patient was seen and examined in medical floor in presence of the He has been stable and did not have any more fever and no chills No other distress at rest 03/05/2023 Patient was seen and examined in medical floor in presence of the He has been stable No acute distress The is worried about developing significant infection and sepsis from the decubitus Review of Systems Review of Systems: ROS could not be performed 2/2 dementia. Physical Exam Physical Exam: Lying in bed comfortably Constitutional: well developed, well nourished, + ill appearing and average body habitus Eyes: PERRL, conjunctivae normal, anicteric sclerae ENMT: external ear and nose normal, oropharynx normal Neck: trachea midline, no thyromegaly Respiratory: no respiratory distress Auscultation: + diminished lung sounds; no crackles Cardiovascular: Rate/Rhythm: regular rate and regular rhythm; not tachycardic Heart Sounds: normal S1 and normal S2; no murmur Extremities: + edema (Trace edema bilaterally) Gastrointestinal (Abdomen): Inspection/Auscultation: normal bowel sounds; abdomen not distended Percussion/Palpation: abdomen soft; abdomen nontender Musculoskeletal: Extremities: no lower leg abnormality (Bilateral lower EXTR flexural deformities) Neurologic: awake; + does not move all extremities (Minimal movement involving the right upper extremity only) Lymphatic: no cervical or axillary lymphadenopathy Results & Data Results & Data Vital Signs (Past 12 Hours) Vital Signs Temp Pulse Resp BP Pulse Ox O2 Del Method O2 Flow Rate 03/05/23 16:01 37.2 C 71 20 119/51 L 97 Oxymask 5 03/05/23 07:30 Oxymask 5 03/05/23 07:24 37.4 C 72 20 111/43 L 97 Oxymask 5 Laboratory Results Short CBC 03/05/23 Range/Units 09:27 WBC 11.72 H (4.8-10.8) K/ul Hgb 8.3 L (14.0-18.0) g/dl Hct 25.2 L (42.0-52.0) % Plt Count 341 (130-400) K/uL BMP 03/05/23 09:27 Sodium 140 Potassium 4.4 Chloride 105 Carbon Dioxide 31 BUN 64 H Creatinine 2.00 H Glucose 148 H Calcium 7.4 L Liver Function 03/05/23 Range/Units 09:27 Total Bilirubin 0.3 (0.2-1.0) mg/dl AST 19 (13-39) U/L ALT 4 L (7-52) U/L Alkaline Phosphatase 117 H (34-104) U/L Albumin 1.9 L (3.4-5.0) gm/dl Medications Administered Current Inpatient Medications Acetaminophen (Acetaminophen 325 Mg Tab) 650 mg PEG Q4H PRN PRN Reason: Pain or Fever Stop: 03/13/23 10:34 Last Admin: 03/02/23 15:09 Dose: 650 mg Albuterol (Albut/Ipratrop 3mg/0.5mg Neb 3 Ml Vial) 3 ml NEB Q4R PRN; Protocol PRN Reason: Shortness Of Breath Or Wheezing Stop: 03/22/23 02:59 Last Admin: 02/19/23 23:20 Dose: 3 ml Aspirin (Aspirin 81 Mg Chew) 81 mg PEG QAM [facility] Stop: 03/19/23 08:59 Last Admin: 03/05/23 08:17 Dose: 81 mg Atorvastatin Calcium (Atorvastatin 20 Mg Tab) 20 mg PEG QPM [facility] Stop: 03/18/23 20:59 Last Admin: 03/04/23 22:54 Dose: 20 mg Carbidopa/Levodopa (Carbidopa/Levodopa 25/100mg Tab) 1 tab PEG BID [facility] Stop: 03/18/23 20:59 Last Admin: 03/05/23 08:17 Dose: 1 tab Donepezil HCl (Donepezil Hcl 5 Mg Tab) 5 mg PO QAM [facility] Stop: 03/13/23 08:59 Last Admin: 02/17/23 08:21 Dose: 5 mg Fluconazole (Fluconazole 100 Mg Tab) 200 mg PEG QAM [facility]; Protocol Stop: 03/13/23 10:14 Last Admin: 03/05/23 08:17 Dose: 200 mg Glucagon (Glucagon For Inj 1 Mg Vial) 1 mg SQ UD PRN; Protocol PRN Reason: Hypoglycemia Protocol Stop: 03/06/23 02:57 Heparin Sodium (Beef Lung) (Heparin 10 Unit/Ml 5 Ml Flush) 5 ml FLUSH PRN PRN PRN Reason: Flush Stop: 03/08/23 16:07 Last Admin: 03/05/23 08:16 Dose: 5 ml Vancomycin HCl 750 mg/ (Dextrose) 265 mls @ 200 mls/hr IV DAILY@1000 FERNIE; Protocol Stop: 03/17/23 09:59 Last Infusion: 03/05/23 12:53 Dose: Infused Lansoprazole (Lansoprazole 30 Mg Soltab) 30 mg PEG QAM [facility] Stop: 03/19/23 08:59 Last Admin: 02/21/23 08:47 Dose: 30 mg Lansoprazole (Lansoprazole 30 Mg Soltab) 30 mg PEG BID [facility] Stop: 04/03/23 20:59 Last Admin: 03/05/23 08:18 Dose: 30 mg Miscellaneous Information (Vancomycin Consult Active) 1 each N/A UD PRN PRN Reason: Consult Stop: 03/20/23 06:47 Nutritional Formula (Nutren Liqd 2.0 1,000 Ml Bag) 1,000 ml PEG UD [facility]; Protocol Stop: 03/22/23 15:44 Last Admin: 03/03/23 11:03 Dose: 1,000 ml Rifampin (Rifampin 600mg/60ml Udp) 600 mg PEG Q24H [facility] Stop: 03/07/23 17:59 Last Admin: 03/04/23 19:59 Dose: 600 mg Sterile Water (Tube Feeding Water Flush) 250 ml PEG Q4H [facility]ERNIE Stop: 04/04/23 14:31 Last Admin: 03/05/23 15:42 Dose: 250 ml Terazosin HCl (Terazosin Hcl 1 Mg Cap) 2 mg PO HS FERNIE Stop: 03/22/23 20:59 Last Admin: 03/04/23 22:54 Dose: 2 mg
[2023-03-05] MEDS: RIFAMPIN PEG SCH (20:30)
[2023-03-05] MEDS: ATORVASTATIN 20 MG TAB PEG SCH (20:31)
[2023-03-05] MEDS: TERAZOSIN HCL 1 MG CAP PO SCH (20:32)
[2023-03-05] MEDS: NUTREN LIQD 2.0 1,000 ML BAG PEG SCH (21:45)
[2023-03-06] MEDS: TUBE FEEDING WATER FLUSH PEG SCH ×6 (02:32→22:09)
[2023-03-06] MEDS: FLUCONAZOLE 100 MG TAB PEG SCH (08:32)
[2023-03-06] MEDS: CARBIDOPA/LEVODOPA 25/100MG TAB PEG SCH ×2 (08:32→22:09)
[2023-03-06] MEDS: LANSOPRAZOLE 30 MG SOLTAB PEG SCH ×2 (08:33→22:09)
[2023-03-06] MEDS: ASPIRIN 81 MG CHEW PEG SCH (08:33)
[2023-03-06] MEDS ORDERED: VANCOMYCIN LEVEL ONE (09:30)
[2023-03-06] MEDS: VANCOMYCIN HCL 750 MG in DEXTROSE 5% 250 ML IV SCH (10:38)
--- NOTE | 2023-03-06 10:47 | Pharmacy Report ---
Pharmacy PK ABX Note - Date of Service March 06, 2023 - Assessment and Plan Assessment 87 year old M receiving vancomycin/rifampin x 6 weeks for bacteremia/concerns for endocarditis. Also receiving fluconazole po for hilary in urine. Per notes total therapy for vancomycin/rifampin will be 6 weeks added from 02/16/23 Vancomycin * Level this morning came back therapeutic at ~18 mcg/ml - this dosing of 750 mg iv daily is predicted to maintain trough level of ~17 mcg/ml and reach AUC/ABI of 400-600 and may be associated with a 13% risk of nephrotoxicity * Reasonable to continue to check Scr every 2-3 days. Could consider rechecking another vancomycin level in 4-5 days or sooner if renal function is changing Pharmacy will continue to follow and will adjust dose/frequency as necessary. Thank you.
[2023-03-06] MEDS: RIFAMPIN PEG SCH (17:36)
--- NOTE | 2023-03-06 19:28 | Hospitalist Progress Note ---
Date of Service March 06, 2023 Assessment & Plan (1) Septic shock: (2) Acute hypernatremia: (3) Acute renal failure (ARF): (4) Goals of care, counseling/discussion: (5) Anemia: (6) Wounds and injuries: Plan Patient is an 87 yr male presents from [facility] with septic shock, renal failure. Revoked hospice for ED admission per request who was traveling from [facility]. Pt was intubated. Admitting team confirmed No CPR, defibrillation, cardioversion in the event of cardiac arrest. Palliative care evaluated. He is being managed for the following: Intermittent fever Despite treating with multiple antibiotics Appreciate ID input Continue current antibiotics Repeat blood cultures negative to date Candiduria Catheter changed and repeat test came back positive for Liliana Urine culture growing Liliana albicans Discussed with the pharmacist Started on Diflucan through the G-tube Plan to complete Diflucan for 14 day course As per prior hospitalist Anemia: Hemoglobin >7, no active bleeding. PBS without Schistocytes, normal reticulocyte count, hemolysis less likely. Iron deficiency present. Poor nutrition does not help. Cont iron supplementation and proper nutrition. Hemoglobin is 7.4 as of 02/25/2023 Will check hemoglobin if it is less than 7 will transfuse Hemoglobin dropped down to 6.6 and will give 2 units of blood transfusion Hemoglobin went up to more than 9 and the patient has been feeling better Hemoglobin remains stable at 8.3 as of 03/05/2023 As per prior hospitalist Septic Shock with staph ([employer] not lugdunensis) bacteremia: possible sources include skin vs pneumonia and UTI with indwelling Villasenor. Weaned off pressors and extubated 02/06. Pansensitive Klebsiella in sputum. Liliana in sputum likely a contaminant Urine Culture: Noncontributory (H/O chronic Villasenor, recent h/o of UTI) ECHO: EF 50 to 55%, bioprosthetic aortic valve, mild mitral regurgitation, grade 2 diastolic dysfunction, mild tricuspid regurgitation High risk for aspiration pneumonia. Known recent month long admission with urosepsis; was recently on Hospice Repeat blood cultures were negative. Initially admitted on Vanc/Zosyn 02/03 Plan will be total 6 weeks of Vancomycin with rifampin added from 02/16/23 with surveillance cultures (2 sets from the periphery) 5-7 days post completion of abx therapy. Continue current antibiotics and will change according to the plan Discussed with the about discharging him on approval to go to the [facility]-awaiting placement We will get detailed instruction from the wound care nurse about care of decubitus Continue air mattress Severe protein calorie malnutrition H/O Esophageal dysmotility Dysphagia: Speech therapy involved in his care this admission. Palliative care involved, Patient's POA now agreeing to no escalation of care (pressors, CPR, intubation). She declines COURT. However, POA would like PEG feeds. PEG placed 02/14-tolerating feeds without residual Remains high risk for aspiration [facility] cannot accept him back with PEG in place PEG feed held due to vomiting, resume peg feed at low rate, and upto 50% of goal for now. Consider pr bowel regimen to help w/ constipation as needed, moved large bowel per RN. Keep HOB at 30 degrees/aspiration precautions. No problem with the PEG feeding-electrolytes unremarkable Continue with the PEG tube feeding Acute hypoxic respiratory failure Secondary to left lower lobe pneumonia likely due to aspiration Was weaned down to 2L NC O2, had vomiting and aspiration event 02/19, TF was held, and unasyn added 02/20. Repeat chest x-ray tomorrow-chest x-ray showing cardiomegaly with pulmonary edema and a small pleural effusion Given Lasix as needed Wean off of supplemental oxygen as able Currently on 4 L supplemental oxygen Acute metabolic encephalopathy/known Dementia Secondary to above, in setting of Lewy body dementia and Hypernatremia (Na was 164 on admission 02/03), sodium now normal - 144 CT head: No significant change compared to the prior study. No acute intracranial abnormality. Elev. troponin: Troponin level 400's on admission - likely type II MA, secondary to above. No further workup at this time. Acute Hypernatremia: resolved. Acute Renal Failure: present at admission which was resolved. Had another bump in Cr on 02/20, d/w nephro - no ivf/avoid nephrotoxics/hold vanc until acceptable trough level achieved. appreciate recs. Pt's doesn't want villasenor cath, c/w intermittent st cath to avoid obstruction. Nephro managing Chronic Villasenor/urinary retention: Villasenor was replaced this admission. doesn't want villasenor, TOV done, currently on intermittent cath- would write for three times daily on discharge and [facility] is aware of his need for follow-up. would like to consider TURP or other prostate surgery in the future For now, will cont with alpha-ban. The only one that will go through the PEG is terazosin This capsule has to be melted in warm water for 15 minutes and then given as a solution through the PEG. Villasenor were changed and urine will be sent for repeat culture and sensitivity With culture grew Liliana albicans and started on oral Diflucan Per prior hospitalist WOUNDS: Multiple sites of ulceration with necrosis There are multiple pressure sites for skin breakdown This was a possible source for his sepsis this admission Wound care nurse consulted. 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 secondary to bleeding/fall risk H/O TIA Continue home medications DVT px: SCDs Code Status DNI/DNR Guarded prognosis Likely Needs LTAC placement Admission and Anticipated Discharge Date Admission Date: February 03, 2023 Subjective Patient is seen and examined at bedside Obtunded during my encounter Unable to obtain any history Hemodynamically stable Review of Systems Review of Systems: Unobtainable due to reduced consciousness Physical Exam Physical Exam: Physical Exam: Vitals signs as noted above General Appearance:Elderly, Ill appearing, no apparent distress Head: normocephalic, Atraumatic Eyes: normal inspection, EOMI Neck: supple, Trachea midline Respiratory/Chest: Decreased breath sounds, CTA, No accessory muscle use Cardiovascular: S1, S2, + murmur Abdomen/GI:Soft, Non tender, +Peg tube, Bowel sounds present Extremities/Musculoskeletal:normal inspection, 1+ Trace pedal edema Neurologic/Psych: nonverbal, does not follow commands, Obtunded Skin: normal color, warm Results & Data Results & Data Vital Signs (Past 12 Hours) Vital Signs Temp Pulse Resp BP Pulse Ox O2 Del Method O2 Flow Rate 03/06/23 15:04 36.4 C L 72 22 116/59 L 94 Oxymask 4 03/06/23 11:49 Oxymask 5 03/06/23 07:34 36.8 C 72 20 114/58 L 95 Oxymask 5
[2023-03-06] MEDS: NUTREN LIQD 2.0 1,000 ML BAG PEG SCH (22:00)
[2023-03-06] MEDS: ATORVASTATIN 20 MG TAB PEG SCH (22:09)
[2023-03-06] MEDS: TERAZOSIN HCL 1 MG CAP PO SCH (22:09)
[2023-03-07] MEDS: ACETAMINOPHEN 325 MG TAB PEG PRN ×2 (00:36→05:32)
[2023-03-07] MEDS: TUBE FEEDING WATER FLUSH PEG SCH ×6 (02:58→22:34)
[2023-03-07 06:19] LABS: Hematocrit (blood only) 25.8 % (42.0-52.0); Hemoglobin 8.4 g/dl (14.0-18.0); Mean Corpuscular Hgb Conc 32.6 g/dL (32.0-36.0); Mean Corpuscular Volume 92.1 fL (80.0-100.0); Mean Platelet Volume 10.9 fL (9.4-12.4); Platelet Count 324 K/uL (130-400); RDW Coefficient of Variation 14.8 % (11.5-14.5); RDW Standard Deviation 49.8 fL (36.4-46.3); White Blood Count 9.96 K/ul (4.8-10.8)
[2023-03-07 06:59] LABS: Calcium 7.2 mg/dl (8.6-10.3); Potassium 4.7 mmol/L (3.5-5.1)
[2023-03-07 07:04] LABS: BUN Creatinine Ratio 33.5 (10-20); Creatinine Clr Calc Pharmacy 30.6 ml/min; Est GFR (African American) 33.2 ml/min; Est GFR (Non-African American) 28.6 ml/min
[2023-03-07] MEDS: VANCOMYCIN HCL 750 MG in DEXTROSE 5% 250 ML IV SCH (09:21)
[2023-03-07] MEDS: FLUCONAZOLE 100 MG TAB PEG SCH (09:22)
[2023-03-07] MEDS: CARBIDOPA/LEVODOPA 25/100MG TAB PEG SCH ×2 (09:22→22:32)
[2023-03-07] MEDS: LANSOPRAZOLE 30 MG SOLTAB PEG SCH ×2 (09:22→22:33)
[2023-03-07] MEDS: ASPIRIN 81 MG CHEW PEG SCH (09:23)
--- NOTE | 2023-03-07 17:03 | Hospitalist Progress Note ---
Date of Service March 07, 2023 Assessment & Plan (1) Septic shock: (2) Acute hypernatremia: (3) Acute renal failure (ARF): (4) Goals of care, counseling/discussion: (5) Anemia: (6) Wounds and injuries: Plan Patient is an 87 yr male presents from [facility] with septic shock, renal failure. Revoked hospice for ED admission per request who was traveling from [facility]. Pt was intubated. Admitting team confirmed No CPR, defibrillation, cardioversion in the event of cardiac arrest. Palliative care evaluated. He is being managed for the following: Intermittent fever Despite treating with multiple antibiotics Appreciate ID input Continue current antibiotics Repeat blood cultures negative to date Continue current management Poor prognosis Plan to discharge to rehab facility when accepted Candiduria Catheter changed and repeat test came back positive for Liliana Urine culture growing Liliana albicans Discussed with the pharmacist Started on Diflucan through the G-tube Plan to complete Diflucan for 14 day course As per prior hospitalist Anemia: Hemoglobin >7, no active bleeding. PBS without Schistocytes, normal reticulocyte count, hemolysis less likely. Iron deficiency present. Poor nutrition does not help. Cont iron supplementation and proper nutrition. 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 Weaned off pressors and extubated 02/06. Pansensitive Klebsiella in sputum. Liliana in sputum likely a contaminant Urine Culture: Noncontributory (H/O chronic Villasenor, recent h/o of UTI) ECHO: EF 50 to 55%, bioprosthetic aortic valve, mild mitral regurgitation, grade 2 diastolic dysfunction, mild tricuspid regurgitation High risk for aspiration pneumonia. Known recent month long admission with urosepsis; was recently on Hospice Repeat blood cultures were negative. Initially admitted on Vanc/Zosyn 02/03 Plan will be total 6 weeks of Vancomycin with rifampin added from 02/16/23 with surveillance cultures (2 sets from the periphery) 5-7 days post completion of abx therapy. Continue current antibiotics and will change according to the plan Discussed with the about discharging him on approval to go to the [facility]-awaiting placement We will get detailed instruction from the wound care nurse about care of decubitus Continue air mattress Severe protein calorie malnutrition H/O Esophageal dysmotility Dysphagia: Speech therapy involved in his care this admission. Palliative care involved, Patient's POA now agreeing to no escalation of care (pressors, CPR, intubation). She declines COURT. However, POA would like PEG feeds. PEG placed 02/14-tolerating feeds without residual Remains high risk for aspiration [facility] cannot accept him back with PEG in place PEG feed held due to vomiting, resume peg feed at low rate, and upto 50% of goal for now. Consider pr bowel regimen to help w/ constipation as needed, moved la rge bowel per RN. Keep HOB at 30 degrees/aspiration precautions. No problem with the PEG feeding-electrolytes unremarkable Continue with the PEG tube feeding Acute hypoxic respiratory failure Secondary to left lower lobe pneumonia likely due to aspiration Was weaned down to 2L NC O2, had vomiting and aspiration event 02/19, TF was held, and unasyn added 02/20. Repeat chest x-ray tomorrow-chest x-ray showing cardiomegaly with pulmonary edema and a small pleural effusion Given Lasix as needed Wean off of supplemental oxygen as able Currently on 5 L supplemental oxygen Acute metabolic encephalopathy/known Dementia Secondary to above, in setting of Lewy body dementia and Hypernatremia (Na was 164 on admission 02/03), sodium now normal - 144 CT head: No significant change compared to the prior study. No acute intracranial abnormality. Elev. troponin: Troponin level 400's on admission - likely type II [place], secondary to above. No further workup at this time. Acute Hypernatremia: resolved. Acute Renal Failure: present at admission which was resolved. Had another bump in Cr on 02/20, d/w nephro - no ivf/avoid nephrotoxics/hold vanc until acceptable trough level achieved. appreciate recs. Pt's doesn't want villasenor cath, c/w intermittent st cath to avoid obstruction. Nephro managing Chronic Villasenor/urinary retention: Villasenor was replaced this admission. doesn't want villasenor, TOV done, currently on intermittent cath- would write for three times daily on discharge and [facility] urology is aware of his need for follow-up. would like to consider TURP or other prostate surgery in the future For now, will cont with alpha-ban. The only one that will go through the PEG is terazosin This capsule has to be melted in warm water for 15 minutes and then given as a solution through the PEG. Villasenor were changed and urine will be sent for repeat culture and sensitivity With culture grew Liliana albicans and started on oral Diflucan Per prior hospitalist WOUNDS: Multiple sites of ulceration with necrosis There are multiple pressure sites for skin breakdown This was a possible source for his sepsis this admission Wound care nurse consulted. 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 secondary to bleeding/fall risk H/O TIA Continue home medications DVT px: SCDs Code Status DNI/DNR Guarded prognosis Likely Needs LTAC placement Admission and Anticipated Discharge Date Admission Date: February 03, 2023 Subjective Patient is seen and examined at bedside Remains obtunded Discussed with patient's at bedside Febrile overnight, afebrile this morning No distress on exam Waiting for placement Review of Systems Review of Systems: Other Physical Exam Physical Exam: Physical Exam: Vitals signs as noted above General Appearance:Elderly, Ill appearing, no apparent distress Head: normocephalic, Atraumatic Eyes: normal inspection, EOMI Neck: supple, Trachea midline Respiratory/Chest: Decreased breath sounds, CTA, No accessory muscle use Cardiovascular: S1, S2, + murmur Abdomen/GI:Soft, Non tender, +Peg tube, Bowel sounds present Extremities/Musculoskeletal:normal inspection, 1+ Trace pedal edema Neurologic/Psych: nonverbal, does not follow commands, Obtunded Skin: normal color, warm Results & Data Results & Data Vital Signs (Past 12 Hours) Vital Signs Temp Pulse Resp BP Pulse Ox O2 Del Method O2 Flow Rate 03/07/23 15:45 Oxymask 5 03/07/23 15:42 36.7 C 72 18 126/62 98 Oxymask 5 03/07/23 08:00 Oxymask 5 03/07/23 07:29 36.7 C 61 18 112/62 96 Oxymask 5 Laboratory Results Short CBC 03/07/23 Range/Units 05:32 WBC 9.96 (4.8-10.8) K/ul Hgb 8.4 L (14.0-18.0) g/dl Hct 25.8 L (42.0-52.0) % Plt Count 324 (130-400) K/uL BMP 03/07/23 05:32 Sodium 142 Potassium 4.7 Chloride 106 Carbon Dioxide 31 BUN 68 H Creatinine 2.03 H Glucose 146 H Calcium 7.2 L
[2023-03-07] MEDS: RIFAMPIN PEG SCH (18:09)
[2023-03-07] MEDS: TERAZOSIN HCL 1 MG CAP PO SCH (22:31)
[2023-03-07] MEDS: ATORVASTATIN 20 MG TAB PEG SCH (22:32)
[2023-03-08] MEDS: TUBE FEEDING WATER FLUSH PEG SCH ×6 (02:32→23:32)
[2023-03-08] MEDS: ACETAMINOPHEN 325 MG TAB PEG PRN (07:38)
[2023-03-08] MEDS: ASPIRIN 81 MG CHEW PEG SCH (07:43)
[2023-03-08] MEDS: CARBIDOPA/LEVODOPA 25/100MG TAB PEG SCH ×2 (07:43→20:53)
[2023-03-08] MEDS: FLUCONAZOLE 100 MG TAB PEG SCH (07:43)
[2023-03-08] MEDS: ALBUT/IPRATROP 3MG/0.5MG NEB 3 ML VIAL NEB PRN (07:46)
[2023-03-08] MEDS ORDERED: FUROSEMIDE INJ 20 MG/2 ML VIAL IV ONE (07:54)
[2023-03-08] MEDS: LANSOPRAZOLE 30 MG SOLTAB PEG SCH ×2 (08:12→20:52)
--- NOTE | 2023-03-08 09:25 | XRay Report ---
XR chest 1V portable HISTORY: hypoxia COMPARISON: Chest 02/27/2023. FINDINGS: No pneumothorax. No pleural effusions. The heart remains enlarged. There is left-sided dual -chamber pacemaker and poststernotomy changes again noted. Mild interstitial pulmonary edema and patc hy bibasilar densities have improved. No new focal lung consolidations identified. A small left pleur al effusion is again noted. IMPRESSION: 1. Slight improvement in the mild interstitial pulmonary edema and patchy bibasilar densities. 2. Small left pleural effusion, unchanged. ACT 112: Negative or not required by law. Electronically signed by: Wellington Garcia M.D. 03/08/2023 9:23 AM
[2023-03-08] MEDS: VANCOMYCIN HCL 750 MG in DEXTROSE 5% 250 ML IV SCH (09:44)
[2023-03-08] MEDS: PIPERACILLIN/TAZOBACTAM 4.5 GM in DEXTROSE 5% 100 ML IV SCH ×3 (09:45→23:32)
[2023-03-08 10:01] LABS: Basophils # (auto) 0.06 K/uL (0-0.2); Basophils % (auto) 0.5 %; Eosinophils # (auto) 0.18 K/uL (0-0.50); Eosinophils % (auto) 1.6 %; Hematocrit (blood only) 24.2 % (42.0-52.0); Hemoglobin 7.8 g/dl (14.0-18.0); Immature Granulocytes # (auto) 0.05 K/uL (0.01-0.20); Immature Granulocytes % (auto) 0.4 %; Lymphocytes # (auto) 1.07 K/uL (1.2-3.4); Lymphocytes % (auto) 9.6 %; Mean Corpuscular Hemoglobin 30.2 pg (25.0-34.0); Mean Corpuscular Hgb Conc 32.2 g/dL (32.0-36.0); Mean Corpuscular Volume 93.8 fL (80.0-100.0); Mean Platelet Volume 11.2 fL (9.4-12.4); Monocytes # (auto) 1.23 K/uL (0.11-0.59); Monocytes % (auto) 11.1 %; Neutrophils # (auto) 8.54 K/uL (1.40-6.50); Neutrophils % (auto) 76.8 %; Platelet Count 373 K/uL (130-400); RDW Coefficient of Variation 14.8 % (11.5-14.5); RDW Standard Deviation 50.7 fL (36.4-46.3); Red Blood Count 2.58 M/uL (4.70-6.10); White Blood Count 11.13 K/ul (4.8-10.8)
[2023-03-08 10:17] LABS: Rouleaux 1+
[2023-03-08 10:18] LABS: BUN Creatinine Ratio 32.5 (10-20); Calcium 7.1 mg/dl (8.6-10.3); Creatinine Clr Calc Pharmacy 26.9 ml/min; Est GFR (African American) 28.4 ml/min; Est GFR (Non-African American) 24.5 ml/min; Magnesium 2.1 mg/dl (1.7-2.4); Potassium 5.2 mmol/L (3.5-5.1)
--- NOTE | 2023-03-08 10:28 | Nephrology Progress Note ---
Date of Service March 08, 2023 Assessment & Plan (1) Acute renal failure (ARF): Plan: Nephrology following intermittently for multiple episodes of acute kidney injury this admission. Earlier this admission he had prerenal HERSON with peak creatinine 5.6 February 04; improved to approximately 1.2-1.3 creatinine then recurrent acute kidney injury in the setting of aspiration pneumonia diagnosis and therapy February 20 w/ creatinine going from 1 > 1.7 in 24 hrs and then plateau'd at about 2 since February 21; not oliguric; did require Ferris replacement in this timeframe. >>today creat up to 2.3 and worsening F to 39.1 repeat blood cultures pending >> recommend reeval urine as well; CXR reassuring would dose vanco by level - troughs have salty ok Per infectious diseases recommendations, he is on 6 weeks of empiric vancomycin with rifampin with trough level 15-20 and this to be followed indefinitely with antibiotic suppression doxycycline 100 mg twice daily due to concern for possible CIED infection or endocarditis prior to admission baseline creatinine 0.9; was 1.3 when infectious diseases evaluated him on February 15. Currently on daily vancomycin and rifampin and fluconazole; also on free water flushes 250 mL every 4 hours and 1 L of tube feeds daily >>cont lower fluconazole dose to 100 mg daily for rest of his course; will d/w Dr Daley >>continue to dose vanco by level: Next trough planned for prior to dose for tomorrow morning -avoid further IV contrast for now unless life/limb saving -would not give lasix at this time unless respiratory status worsening > if needed would give 40 mg IV -would not give IV fluids at this time -continue as tolerated tube feeds, free water flushes -avoid NSAID >continue to discuss goals of care Admission and Anticipated Discharge Date Admission Date: February 03, 2023 Physical Exam Constitutional: well developed, + thin, + frail appearing and + lethargic; no acute distress ENMT: Ears: no external ear abnormality Nose: no external nose abnormality Mouth: + dry oral mucous membranes and + poor dentition Neck: no nuchal rigidity Respiratory: normal respiratory effort; no cough Auscultation: + diminished lung sounds Cardiovascular: RRR, no murmur, no edema Rate/Rhythm: regular rate and regular rhythm Heart Sounds: + murmur Extremities: no edema Gastrointestinal (Abdomen): Inspection/Auscultation: normal bowel sounds Percussion/Palpation: abdomen soft (PEG present); abdomen nontender Musculoskeletal: Extremities: strength 5/5 throughout, + abnormal strength, + abnormal muscle tone (contractures) and + muscle atrophy Skin: no rashes, warm and dry Results & Data Vital Signs (Past 12 Hours) Vital Signs Temp Pulse Resp BP Pulse Ox O2 Del Method O2 Flow Rate 03/08/23 07:40 Oxymask 10 03/08/23 09:43 37.4 C 75 32 H 105/57 L 91 Oxymask 10 03/08/23 07:37 39.1 C H 74 40 H 110/59 L 91 Oxymask 10 03/08/23 07:46 78 18 90 Oxymask 10 03/07/23 22:28 37.6 C H 73 18 113/56 L 96 Oxymask 5 Laboratory Results 03/08/23 09:24 03/08/23 09:24 Diagnostic Findings cxr 1. Slight improvement in the mild interstitial pulmonary edema and patchy bibasilar densities. 2. Small left pleural effusion, unchanged.
[2023-03-08] MEDS: RIFAMPIN PEG SCH (18:17)
--- NOTE | 2023-03-08 18:57 | Nephrology Progress Note ---
Date of Service March 08, 2023 Assessment & Plan (1) Acute renal failure (ARF): Plan: Nephrology following intermittently for multiple episodes of acute kidney injury this admission. Earlier this admission he had prerenal HERSON with peak creatinine 5.6 February 04; improved to approximately 1.2-1.3 creatinine then recurrent acute kidney injury in the setting of aspiration pneumonia diagnosis and therapy February 20 w/ creatinine going from 1 > 1.7 in 24 hrs and then plateau'd at about 2 since February 21; not oliguric; did require Villasenor replacement in this timeframe. >>today creat up to 2.3 and worsening F to 39.1 repeat blood cultures pending >> recommend reeval urine as well; CXR reassuring would dose vanco by level- troughs have salty uriostegui Per infectious diseases recommendations, he is on 6 weeks of empiric vancomycin with rifampin with trough level 15-20 and this to be followed indefinitely with antibiotic suppression doxycycline 100 mg twice daily due to concern for possible CIED infection or endocarditis prior to admission baseline creatinine 0.9; was 1.3 when infectious diseases evaluated him on February 15. Currently on daily vancomycin and rifampin and fluconazole; also on free water flushes 250 mL every 4 hours and 1 L of tube feeds daily >>cont lower fluconazole dose to 100 mg daily for rest of his course >>continue to dose vanco by level -avoid further IV contrast for now unless life/limb saving -would not give lasix at this time unless respiratory status worsening > if needed would give 40 mg IV -would not give IV fluids at this time -continue as tolerated tube feeds, free water flushes -avoid NSAID >continue to discuss goals of care Admission and Anticipated Discharge Date Admission Date: February 03, 2023 Physical Exam Constitutional: well developed (contracted; lies in position), + cachectic and + frail appearing; no acute distress Eyes: eyes open; minimal eomi/ does not track ENMT: Mouth: + dry oral mucous membranes and + poor dentition Respiratory: normal respiratory effort Auscultation: + diminished lung sounds and + crackles Cardiovascular: Rate/Rhythm: regular rate and regular rhythm Extremities: no edema Gastrointestinal (Abdomen): Inspection/Auscultation: normal bowel sounds and + scaphoid (PEG present) Musculoskeletal: contracted/ rigid > full assist to turn in bed Skin: several areas of breakdown Neurologic: aphasic, resting tremor; eyes open does not track or follow commands Genitourinary: villasenor w/ ample urine Results & Data Vital Signs (Past 12 Hours) Vital Signs Temp Pulse Resp BP Pulse Ox O2 Del Method O2 Flow Rate 03/08/23 16:33 20 97 Oxymask 5 03/08/23 13:47 37.0 C 67 20 112/57 L 100 Oxymask 7 03/08/23 13:15 26 H 92 Oxymask 10 03/08/23 07:40 Oxymask 10 03/08/23 09:43 37.4 C 75 32 H 105/57 L 91 Oxymask 10 03/08/23 07:37 39.1 C H 74 40 H 110/59 L 91 Oxymask 10 03/08/23 07:46 78 18 90 Oxymask 10 Laboratory Results 03/08/23 09:24 03/08/23 09:24
--- NOTE | 2023-03-08 19:13 | Hospitalist Progress Note ---
Date of Service March 08, 2023 Assessment & Plan (1) Septic shock: (2) Acute hypernatremia: (3) Acute renal failure (ARF): (4) Goals of care, counseling/discussion: (5) Anemia: (6) Wounds and injuries: Plan Patient is an 87 yr male presents from [facility] with septic shock, renal failure. Revoked hospice for ED admission per request who was traveling from [facility]. Pt was intubated. Admitting team confirmed No CPR, defibrillation, cardioversion in the event of cardiac arrest. Palliative care evaluated. He is being managed for the following: Intermittent fever Despite treating with multiple antibiotics Appreciate ID input Poor prognosis Plan to discharge to rehab facility when accepted Repeat blood cultures Started on Zosyn, continue vancomycin Candiduria Catheter changed and repeat test came back positive for Liliana Urine culture growing Liliana albicans Discussed with the pharmacist Started on Diflucan through the G-tube Plan to complete Diflucan for 14 day course As per prior hospitalist Anemia: Hemoglobin >7, no active bleeding. PBS without Schistocytes, normal reticulocyte count, hemolysis less likely. Iron deficiency present. Poor nutrition does not help. Cont iron supplementation and proper nutrition. 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 Weaned off pressors and extubated 02/06. Pansensitive Klebsiella in sputum. Liliana in sputum likely a contaminant Urine Culture: Noncontributory (H/O chronic Villasenor, recent h/o of UTI) ECHO: EF 50 to 55%, bioprosthetic aortic valve, mild mitral regurgitation, grade 2 diastolic dysfunction, mild tricuspid regurgitation High risk for aspiration pneumonia. Known recent month long admission with urosepsis; was recently on Hospice Repeat blood cultures were negative. Initially admitted on Vanc/Zosyn 02/03 Plan will be total 6 weeks of Vancomycin with rifampin added from 02/16/23 with surveillance cultures (2 sets from the periphery) 5-7 days post completion of abx therapy. Continue current antibiotics and will change according to the plan Discussed with the about discharging him on approval to go to the [facility]-awaiting placement We will get detailed instruction from the wound care nurse about care of decubitus Continue air mattress Severe protein calorie malnutrition H/O Esophageal dysmotility Dysphagia: Speech therapy involved in his care this admission. Palliative care involved, Patient's POA now agreeing to no escalation of care (pressors, CPR, intubation). She declines COURT. However, POA would like PEG feeds. PEG placed 02/14-tolerating feeds without residual Remains high risk for aspiration [facility] cannot accept him back with PEG in place PEG feed held due to vomiting, resume peg feed at low rate, and upto 50% of goal for now. Consider pr bowel regimen to help w/ constipation as needed, moved large bowel per RN. Keep HOB at 30 degrees/aspiration precautions. No problem with the PEG feeding-electrolytes unremarkable Continue with the PEG tube feeding Acute hypoxic respiratory failure Secondary to left lower lobe pneumonia likely due to aspiration Was weaned down to 2L NC O2, had vomiting and aspiration event 02/19, TF was held, and unasyn added 02/20. Repeat chest x-ray tomorrow-chest x-ray showing cardiomegaly with pulmonary edema and a small pleural effusion Given Lasix as needed Wean off of supplemental oxygen as able Currently on 5 L supplemental oxygen Acute metabolic encephalopathy/known Dementia Secondary to above, in setting of Lewy body dementia and Hypernatremia (Na was 164 on admission 02/03), sodium now normal - 144 CT head: No significant change compared to the prior study. No acute i ntracranial abnormality. Elev. troponin: Troponin level 400's on admission - likely type II [place], secondary to above. No further workup at this time. Acute Hypernatremia: resolved. Acute Renal Failure: present at admission which was resolved. Had another bump in Cr on 02/20, d/w nephro - no ivf/avoid nephrotoxics/hold vanc until acceptable trough level achieved. appreciate recs. Pt's doesn't want villasenor cath, c/w intermittent st cath to avoid obstruction. Nephro managing Chronic Villasenor/urinary retention: Villasenor was replaced this admission. doesn't want villasenor, TOV done, currently on intermittent cath- would write for three times daily on discharge and [facility] u[facility] is aware of his need for follow-up. would like to consider TURP or other prostate surgery in the future For now, will cont with alpha-ban. The only one that will go through the PEG is terazosin This capsule has to be melted in warm water for 15 minutes and then given as a solution through the PEG. Villasenor were changed and urine will be sent for repeat culture and sensitivity With culture grew Liliana albicans and started on oral Diflucan Per prior hospitalist WOUNDS: Multiple sites of ulceration with necrosis There are multiple pressure sites for skin breakdown This was a possible source for his sepsis this admission Wound care nurse consulted. 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 secondary to bleeding/fall risk H/O TIA Continue home medications DVT px: SCDs Code Status DNI/DNR Guarded prognosis Likely Needs LTAC placement Admission and Anticipated Discharge Date Admission Date: February 03, 2023 Subjective Patient is seen and examined at bedside Febrile, in respiratory distress this morning Supplemental oxygen requirement improved with a dose of IV Lasix Remains obtunded Repeated blood cultures, started on Zosyn No family at bedside Review of Systems Review of Systems: Other Physical Exam Physical Exam: Physical Exam: Vitals signs as noted above General Appearance:Elderly, Ill appearing, no apparent distress Head: normocephalic, Atraumatic Eyes: normal inspection, EOMI Neck: supple, Trachea midline Respiratory/Chest: Decreased breath sounds, CTA, No accessory muscle use Cardiovascular: S1, S2, + murmur Abdomen/GI:Soft, Non tender, +Peg tube, Bowel sounds present Extremities/Musculoskeletal:normal inspection, 1+ Trace pedal edema Neurologic/Psych: nonverbal, does not follow commands, Obtunded Skin: normal color, warm Results & Data Results & Data Vital Signs (Past 12 Hours) Vital Signs Temp Pulse Resp BP Pulse Ox O2 Del Method O2 Flow Rate 03/08/23 16:33 20 97 Oxymask 5 03/08/23 13:47 37.0 C 67 20 112/57 L 100 Oxymask 7 03/08/23 13:15 26 H 92 Oxymask 10 03/08/23 07:40 Oxymask 10 03/08/23 09:43 37.4 C 75 32 H 105/57 L 91 Oxymask 10 03/08/23 07:37 39.1 C H 74 40 H 110/59 L 91 Oxymask 10 03/08/23 07:46 78 18 90 Oxymask 10 Laboratory Results Short CBC 03/08/23 Range/Units 09:24 WBC 11.13 H (4.8-10.8) K/ul Hgb 7.8 L (14.0-18.0) g/dl Hct 24.2 L (42.0-52.0) % Plt Count 373 (130-400) K/uL BMP 03/08/23 09:24 Sodium 142 Potassium 5.2 H Chloride 105 Carbon Dioxide 31 BUN 75 H Creatinine 2.31 H Glucose 140 H Calcium 7.1 L
[2023-03-08] MEDS: TERAZOSIN HCL 1 MG CAP PO SCH (20:52)
[2023-03-08] MEDS: ATORVASTATIN 20 MG TAB PEG SCH (20:53)
[2023-03-09] MEDS: TUBE FEEDING WATER FLUSH PEG SCH ×6 (02:32→22:00)
[2023-03-09 05:40] LABS: Hematocrit (blood only) 24.1 % (42.0-52.0); Hemoglobin 7.8 g/dl (14.0-18.0); Mean Corpuscular Hemoglobin 30.2 pg (25.0-34.0); Mean Corpuscular Hgb Conc 32.4 g/dL (32.0-36.0); Mean Corpuscular Volume 93.4 fL (80.0-100.0); Mean Platelet Volume 10.6 fL (9.4-12.4); Platelet Count 326 K/uL (130-400); RDW Coefficient of Variation 14.8 % (11.5-14.5); RDW Standard Deviation 50.7 fL (36.4-46.3); Red Blood Count 2.58 M/uL (4.70-6.10); White Blood Count 10.06 K/ul (4.8-10.8)
[2023-03-09 05:53] LABS: Calcium 7.1 mg/dl (8.6-10.3); Creatinine Clr Calc Pharmacy 24.9 ml/min; Est GFR (African American) 25.8 ml/min; Est GFR (Non-African American) 22.3 ml/min
[2023-03-09] MEDS: FLUCONAZOLE 100 MG TAB PEG SCH (07:55)
[2023-03-09] MEDS: CARBIDOPA/LEVODOPA 25/100MG TAB PEG SCH ×2 (07:55→22:01)
[2023-03-09] MEDS: LANSOPRAZOLE 30 MG SOLTAB PEG SCH ×2 (07:55→22:01)
[2023-03-09] MEDS: ASPIRIN 81 MG CHEW PEG SCH (07:56)
[2023-03-09] MEDS: PIPERACILLIN/TAZOBACTAM 4.5 GM in DEXTROSE 5% 100 ML IV SCH ×2 (08:07→15:47)
[2023-03-09] MEDS: VANCOMYCIN HCL 750 MG in DEXTROSE 5% 250 ML IV SCH (09:53)
[2023-03-09] MEDS ORDERED: VANCOMYCIN HCL 500 MG in DEXTROSE 5% 100 ML IV ONE (10:00)
--- NOTE | 2023-03-09 10:02 | Pharmacy Report ---
Pharmacy PK ABX Note - Date of Service March 09, 2023 - Assessment and Plan Assessment 87 year old M receiving vancomycin/rifampin x 6 weeks for bacteremia/concerns for endocarditis. Also receiving fluconazole po for hilary in urine. Per notes total therapy for vancomycin/rifampin will be 6 weeks added from 02/16/23 Vancomycin * Current regimen: 750mg IV q24h * Random vancomycin level this AM, 20.5mcg/mL (~19.5hr level) predicted to achieve a steady state AUC of 585mg/L.hr which is therapeutic, although at the high end of therapeutic range. * Renal function is declining- SCr 2.03-->2.31-->2.5mg/dL today. Given HERSON, will reduce today's dose to 500mg IV X 1 and repeat a random level tomorrow AM to evaluate clearance. Pharmacy will continue to follow and will adjust dose/frequency as necessary. Thank you.
[2023-03-09 10:06] LABS: A calco-baum cmplx NotReported Not Detected (NotDetected); Bact fragilis Not Reported Not Detected (NotDetected); C auris Not Reported Not Detected (NotDetected); Calbicans Not Reported Not Detected (NotDetected); Candida glabrata Not Reported Not Detected (NotDetected); Candida krusei Not Reported Not Detected (NotDetected); Cneoformans/gatti Not Reported Not Detected (NotDetected); Cparapsilosis Not Reported Not Detected (NotDetected); Ctropicalis Not Reported Not Detected (NotDetected); E cloacae compx Not Reported Not Detected (NotDetected); Efaecalis Not Reported Not Detected (NotDetected); Efaecium Not Reported Not Detected (NotDetected); Enterobacterales Not Reported Not Detected (NotDetected); Escherichia coli Not Reported Not Detected (NotDetected); H influenzae Not Reported Not Detected (NotDetected); K aerogenes Not Reported Not Detected (NotDetected); Koxytoca Not Reported Not Detected (NotDetected); Kpneumoniae grp Not Reported Not Detected (NotDetected); Lmonocyt Not Reported Not Detected (NotDetected); N meningitidis Not Reported Not Detected (NotDetected); P aeruginosa Not Reported Not Detected (NotDetected); Proteus spp Not Reported Not Detected (NotDetected); Salmonella spp Not Reported Not Detected (NotDetected); Smarcescens Not Reported Not Detected (NotDetected); Staph lugdunensis Not Reported Not Detected (NotDetected); Staph spp. Not Reported DETECTED (NotDetected); Staphaureus Not Reported Not Detected (NotDetected); Staphepi Not Reported DETECTED (NotDetected); Stenmaltophilia Not Reported Not Detected (NotDetected); Strep agal(GrpB) Not Reported Not Detected (NotDetected); Strep pneum Not Reported Not Detected (NotDetected); Strep pyog (GrpA) Not Reported Not Detected (NotDetected); Strep spp Not Reported Not Detected (NotDetected)
[2023-03-09 10:24] LABS: Staphylococcus epidermidis DETECTED (NotDetected); Staphylococcus spp. DETECTED (NotDetected); mecAC Resistant Gene DETECTED (NotDetected)
[2023-03-09] MEDS: RIFAMPIN PEG SCH (17:46)
--- NOTE | 2023-03-09 18:13 | Hospitalist Progress Note ---
Date of Service March 09, 2023 Assessment & Plan (1) Septic shock: (2) Acute hypernatremia: (3) Acute renal failure (ARF): (4) Goals of care, counseling/discussion: (5) Anemia: (6) Wounds and injuries: Plan Patient is an 87 yr male presents from [facility] with septic shock, renal failure. Revoked hospice for ED admission per request who was traveling from [facility]. Pt was intubated. Admitting team confirmed No CPR, defibrillation, cardioversion in the event of cardiac arrest. Palliative care evaluated. He is being managed for the following: Intermittent fever Despite treating with multiple antibiotics Appreciate ID input Poor prognosis Plan to discharge to rehab facility when accepted Started on Zosyn-on 03/08/23, continue vancomycin Repeat blood cultures 11/19: Gram-positive cocci in clusters; BioFire Staph epidermidis Patient's prefers to continue current management despite explaining very poor prognosis Candiduria Catheter changed and repeat test came back positive for Liliana Urine culture growing Liliana albicans Discussed with the pharmacist Started on Diflucan through the G-tube Plan to complete Diflucan for 14 day course As per prior hospitalist Anemia: Hemoglobin >7, no active bleeding. PBS without Schistocytes, normal reticulocyte count, hemolysis less likely. Iron deficiency present. Poor nutrition does not help. Cont iron supplementation and proper nutrition. 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 Weaned off pressors and extubated 02/06. Pansensitive Klebsiella in sputum. Liliana in sputum likely a contaminant Urine Culture: Noncontributory (H/O chronic Villasenor, recent h/o of UTI) ECHO: EF 50 to 55%, bioprosthetic aortic valve, mild mitral regurgitation, grade 2 diastolic dysfunction, mild tricuspid regurgitation High risk for aspiration pneumonia. Known recent month long admission with urosepsis; was recently on Hospice Repeat blood cultures were negative. Initially admitted on Vanc/Zosyn 02/03 Plan will be total 6 weeks of Vancomycin with rifampin added from 02/16/23 with surveillance cultures (2 sets from the periphery) 5-7 days post completion of abx therapy. Continue current antibiotics and will change according to the plan Discussed with the about discharging him on approval to go to the [facility]-awaiting placement Continue wound care for decubitus ulcers Continue air mattress Severe protein calorie malnutrition H/O Esophageal dysmotility Dysphagia: Speech therapy involved in his care this admission. Palliative care involved, Patient's POA now agreeing to no escalation of care (pressors, CPR, intubation). She declines COURT. However, POA would like PEG feeds. PEG placed 02/14-tolerating feeds without residual Remains high risk for aspiration [facility] cannot accept him back with PEG in place PEG feed held due to vomiting, resume peg feed at low rate, and upto 50% of goal for now. Consider pr bowel regimen to help w/ constipation as needed, moved large bowel per RN. Keep HOB at 30 degrees/aspiration precautions. No problem with the PEG feeding-electrolytes unremarkable Continue with the PEG tube feeding Acute hypoxic respiratory failure Secondary to left lower lobe pneumonia likely due to aspiration Was weaned down to 2L NC O2, had vomiting and aspiration event 02/19, TF was held, and unasyn added 02/20. Repeat chest x-ray tomorrow-chest x-ray showing cardiomegaly with pulmonary edema and a small pleural effusion Given Lasix as needed Wean off of supplemental oxygen as able Currently on 5 L supplemental oxygen Acute metabolic encephalopathy/known Dementia Secondary to above, in setting of Lewy body dementia and Hypernatremia (Na was 164 on admission 02/03), sodium now normal - 144 CT head: No significant change compared to the prior study. No acute intracranial abnormality. Elev. troponin: Troponin level 400's on admission - likely type II [place], secondary to above. No further workup at this time. Acute Hypernatremia: resolved. Acute Renal Failure: present at admission which was resolved. Had another bump in Cr on 02/20, d/w nephro - no ivf/avoid nephrotoxics/hold vanc until acceptable trough level achieved. appreciate recs. Pt's doesn't want villasenor cath, c/w intermittent st cath to avoid obstruction. Nephro managing Renal function slowly worsening Chronic Villasenor/urinary retention: Villasenor was replaced this admission. doesn't want villasenor, TOV done, currently on intermittent cath- would write for three times daily on discharge and [facility] [place] is aware of his need for follow-up. would like to consider TURP or other prostate surgery in the future For now, will cont with alpha-ban. The only one that will go through the PEG is terazosin This capsule has to be melted in warm water for 15 minutes and then given as a solution through the PEG. Villasenor were changed and urine will be sent for repeat culture and sensitivity With culture grew Liliana albicans and started on oral Diflucan Per prior hospitalist WOUNDS: Multiple sites of ulceration with necrosis There are multiple pressure sites for skin breakdown This was a possible source for his sepsis this admission Wound care nurse consulted. 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 secondary to bleeding/fall risk H/O TIA Continue home medications DVT px: SCDs Code Status DNI/DNR Guarded prognosis Likely Needs LTAC placement Admission and Anticipated Discharge Date Admission Date: February 03, 2023 Subjective Patient is seen and examined at bedside Remains obtunded Had low-grade fever overnight, afebrile this morning Discussed with patient's at bedside in detail No distress on exam during my encounter Leukocytosis resolved Renal function slightly worse today Review of Systems Review of Systems: Unobtainable due to reduced consciousness Physical Exam Physical Exam: Physical Exam: Vitals signs as noted above General Appearance:Elderly, Ill appearing, no apparent distress Head: normocephalic, Atraumatic Eyes: normal inspection, EOMI Neck: supple, Trachea midline Respiratory/Chest: Decreased breath sounds, CTA, No accessory muscle use Cardiovascular: S1, S2, + murmur Abdomen/GI:Soft, Non tender, +Peg tube, Bowel sounds present Extremities/Musculoskeletal:normal inspection, 1+ Trace pedal edema Neurologic/Psych: nonverbal, does not follow commands, Obtunded Skin: normal color, warm Results & Data Results & Data Vital Signs (Past 12 Hours) Vital Signs Temp Pulse Resp BP Pulse Ox O2 Del Method O2 Flow Rate 03/09/23 08:23 Oxymask 5 03/09/23 08:16 36 H 03/09/23 07:50 37.5 C 70 44 H 122/81 98 Oxymask 5 Laboratory Results Short CBC 03/09/23 Range/Units 05:17 WBC 10.06 (4.8-10.8) K/ul Hgb 7.8 L (14.0-18.0) g/dl Hct 24.1 L (42.0-52.0) % Plt Count 326 (130-400) K/uL BMP 03/09/23 05:17 Sodium 139 Potassium 5.0 Chloride 106 Carbon Dioxide 29 BUN 85 H Creatinine 2.50 H Glucose 166 H Calcium 7.1 L
[2023-03-09] MEDS: ATORVASTATIN 20 MG TAB PEG SCH (22:00)
[2023-03-09] MEDS: TERAZOSIN HCL 1 MG CAP PO SCH (22:01)
[2023-03-10] MEDS: PIPERACILLIN/TAZOBACTAM 4.5 GM in DEXTROSE 5% 100 ML IV SCH ×2 (00:08→08:58)
[2023-03-10] MEDS: TUBE FEEDING WATER FLUSH PEG SCH ×7 (00:09→21:44)
[2023-03-10 05:30] LABS: Hematocrit (blood only) 23.9 % (42.0-52.0); Hemoglobin 7.8 g/dl (14.0-18.0); Mean Corpuscular Hemoglobin 30.4 pg (25.0-34.0); Mean Corpuscular Hgb Conc 32.6 g/dL (32.0-36.0); Mean Platelet Volume 10.4 fL (9.4-12.4); Platelet Count 311 K/uL (130-400); RDW Standard Deviation 51.1 fL (36.4-46.3); Red Blood Count 2.57 M/uL (4.70-6.10); White Blood Count 11.57 K/ul (4.8-10.8)
[2023-03-10 05:47] LABS: BUN Creatinine Ratio 29.4 (10-20); Calcium 7.1 mg/dl (8.6-10.3); Creatinine Clr Calc Pharmacy 19.4 ml/min; Est GFR (African American) 19.1 ml/min; Est GFR (Non-African American) 16.5 ml/min
[2023-03-10] MEDS: CARBIDOPA/LEVODOPA 25/100MG TAB PEG SCH ×2 (08:30→21:44)
[2023-03-10] MEDS: DONEPEZIL HCL 5 MG TAB PO SCH (08:30)
[2023-03-10] MEDS: FLUCONAZOLE 100 MG TAB PEG SCH (08:31)
[2023-03-10] MEDS: LANSOPRAZOLE 30 MG SOLTAB PEG SCH ×2 (08:31→21:45)
[2023-03-10] MEDS: ASPIRIN 81 MG CHEW PEG SCH (08:33)
[2023-03-10] MEDS ORDERED: SODIUM CHLORIDE 0.9% 1000ML 1,000 ML IV ONE (09:24)
[2023-03-10] MEDS ORDERED: VANCOMYCIN HCL 500 MG in DEXTROSE 5% 100 ML IV ONE (13:00)
--- NOTE | 2023-03-10 13:19 | Pharmacy Report ---
Pharmacy PK ABX Note - Date of Service March 10, 2023 - Assessment and Plan Assessment 87 year old M receiving vancomycin/rifampin x 6 weeks for bacteremia/concerns for endocarditis. Also receiving fluconazole po for hilary in urine and cefepime empirically as was spiking fevers. Per notes total therapy for vancomycin/rifampin will be 6 weeks added from 02/16/23. Renal function is declining- SCr 2.03-->2.31-->2.5 -->3.2mg/dL today. Vancomycin * Current regimen: Dosing by levels * Random vancomycin level this AM, 23.5mcg/mL (~18hr level). A second level was repeated 7hr later to ensure clearance and was 18.5mcg/mL (~25hr level, t 1/2~20h). Level is therapeutic and is safe to re-dose. * Vancomycin 500mg IV X 1 * Random level ordered for tomorrow @ 10 to guide further dosing. Pharmacy will continue to follow and will adjust dose/frequency as necessary. Thank you.
--- NOTE | 2023-03-10 16:52 | Hospitalist Progress Note ---
Date of Service March 10, 2023 Assessment & Plan (1) Septic shock: (2) Acute hypernatremia: (3) Acute renal failure (ARF): (4) Goals of care, counseling/discussion: (5) Anemia: (6) Wounds and injuries: Plan Patient is an 87 yr male presents from [facility] with septic shock, renal failure. Revoked hospice for ED admission per request who was traveling from [facility]. Pt was intubated. Admitting team confirmed No CPR, defibrillation, cardioversion in the event of cardiac arrest. Palliative care evaluated. He is being managed for the following: Intermittent fever Despite treating with multiple antibiotics Appreciate ID input Poor prognosis Plan to discharge to rehab facility when accepted Started on Zosyn-on 03/08/23, continue vancomycin>> transition to Vanco, cefepime Repeat blood cultures 11/19: Coagulase-negative staph not lugdunensis Patient's prefers to continue current management despite explaining very poor prognosis Afebrile today Candiduria Catheter changed and repeat test came back positive for Liliana Urine culture growing Liliana albicans Discussed with the pharmacist Started on Diflucan through the G-tube Plan to complete Diflucan for 14 day course As per prior hospitalist Anemia: Hemoglobin >7, no active bleeding. PBS without Schistocytes, normal reticulocyte count, hemolysis less likely. Iron deficiency present. Poor nutrition does not help. Cont iron supplementation and proper nutrition. 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 Weaned off pressors and extubated 02/06. Pansensitive Klebsiella in sputum. Liliana in sputum likely a contaminant Urine Culture: Noncontributory (H/O chronic Villasenor, recent h/o of UTI) ECHO: EF 50 to 55%, bioprosthetic aortic valve, mild mitral regurgitation, grade 2 diastolic dysfunction, mild tricuspid regurgitation High risk for aspiration pneumonia. Known recent month long admission with urosepsis; was recently on Hospice Repeat blood cultures were negative. Initially admitted on Vanc/Zosyn 02/03 Plan will be total 6 weeks of Vancomycin with rifampin added from 02/16/23 with surveillance cultures (2 sets from the periphery) 5-7 days post completion of abx therapy. Continue current antibiotics and will change according to the plan Discussed with the about discharging him on approval to go to the [facility]-awaiting placement Continue wound care for decubitus ulcers Continue air mattress Severe protein calorie malnutrition H/O Esophageal dysmotility Dysphagia: Speech therapy involved in his care this admission. Palliative care involved, Patient's POA now agreeing to no escalation of care (pressors, CPR, intubation). She declines COURT. However, POA would like PEG feeds. PEG placed 02/14-tolerating feeds without residual Remains high risk for aspiration [facility] cannot [facility] back with PEG in place PEG feed held due to vomiting, resume peg feed at low rate, and upto 50% of goal for now. Consider pr bowel regimen to help w/ constipation as needed, moved large bowel per RN. Keep HOB at 30 degrees/aspiration precautions. No problem with the PEG feeding-electrolytes unremarkable Continue with the PEG tube feeding Acute hypoxic respiratory failure Secondary to left lower lobe pneumonia likely due to aspiration Was weaned down to 2L NC O2, had vomiting and aspiration event 02/19, TF was held, and unasyn added 02/20. Repeat chest x-ray tomorrow-chest x-ray showing cardiomegaly with pulmonary edema and a small pleural effusion Given Lasix as needed Wean off of supplemental oxygen as able Currently on 4 L supplemental oxygen Acute metabolic encephalopathy/known Dementia Secondary to above, in setting of Lewy body dementia and Hypernatremia (Na was 1 64 on admission 02/03), sodium now normal - 144 CT head: No significant change compared to the prior study. No acute intracranial abnormality. Elev. troponin: Troponin level 400's on admission - likely type II [place], secondary to above. No further workup at this time. Acute Hypernatremia: resolved. Acute Renal Failure: present at admission which was resolved. Had another bump in Cr on 02/20, d/w nephro - no ivf/avoid nephrotoxics/hold vanc until acceptable trough level achieved. appreciate recs. Pt's doesn't want villasenor cath, c/w intermittent st cath to avoid obstruction. Nephro managing Renal function slowly worsening Chronic Villasenor/urinary retention: Villasenor was replaced this admission. doesn't want villasenor, TOV done, currently on intermittent cath- would write for three times daily on discharge and [facility] urology is aware of his need for follow-up. would like to consider TURP or other prostate surgery in the future For now, will cont with alpha-ban. The only one that will go through the PEG is terazosin This capsule has to be melted in warm water for 15 minutes and then given as a solution through the PEG. Villasenor were changed and urine will be sent for repeat culture and sensitivity With culture grew Liliana albicans and started on oral Diflucan Per prior hospitalist WOUNDS: Multiple sites of ulceration with necrosis There are multiple pressure sites for skin breakdown This was a possible source for his sepsis this admission Wound care nurse consulted. 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 secondary to bleeding/fall risk H/O TIA Continue home medications DVT px: SCDs Code Status DNI/DNR Guarded prognosis Likely Needs LTAC placement Admission and Anticipated Discharge Date Admission Date: February 03, 2023 Subjective Patient is seen and examined at bedside Remains obtunded Afebrile today Discussed with patient's in detail at bedside Renal function worsening Discussed with nephrology today We will give gentle IV fluids Review of Systems Review of Systems: Unobtainable due to reduced consciousness Physical Exam Physical Exam: Physical Exam: Vitals signs as noted above General Appearance:Elderly, Ill appearing, no apparent distress Head: normocephalic, Atraumatic Eyes: normal inspection, EOMI Neck: supple, Trachea midline Respiratory/Chest: Decreased breath sounds, CTA, No accessory muscle use Cardiovascular: S1, S2, + murmur Abdomen/GI:Soft, Non tender, +Peg tube, Bowel sounds present Extremities/Musculoskeletal:normal inspection, 1+ Trace pedal edema Neurologic/Psych: nonverbal, does not follow commands, Obtunded Skin: normal color, warm Results & Data Results & Data Vital Signs (Past 12 Hours) Vital Signs Temp Pulse Resp BP BP Pulse Ox O2 Del Method 03/10/23 15:50 37.3 C 73 18 120/71 96 Room Air 03/10/23 07:30 Nasal Cannula 03/10/23 07:29 37.0 C 73 18 94/50 L 96 Nasal Cannula O2 Flow Rate 03/10/23 15:50 4 03/10/23 07:30 4 03/10/23 07:29 4 Laboratory Results Short CBC 03/10/23 Range/Units 05:15 WBC 11.57 H (4.8-10.8) K/ul Hgb 7.8 L (14.0-18.0) g/dl Hct 23.9 L (42.0-52.0) % Plt Count 311 (130-400) K/uL BMP 03/10/23 05:15 Sodium 139 Potassium 5.0 Chloride 105 Carbon Dioxide 29 BUN 94 H Creatinine 3.20 H D Glucose 170 H Calcium 7.1 L
[2023-03-10] MEDS ORDERED: PIPERACILLIN/TAZOBACTAM 4.5 GM in DEXTROSE 5% 100 ML IV SCH (21:00)
[2023-03-10] MEDS: RIFAMPIN PEG SCH (21:44)
[2023-03-10] MEDS: ATORVASTATIN 20 MG TAB PEG SCH (21:44)
[2023-03-10] MEDS: TERAZOSIN HCL 1 MG CAP PO SCH (21:45)
[2023-03-10] MEDS: CEFEPIME 1,000 MG in SYRINGE 0 ML IV SCH (21:46)
[2023-03-11] MEDS: NUTREN LIQD 2.0 1,000 ML BAG PEG SCH (00:19)
[2023-03-11] MEDS: TUBE FEEDING WATER FLUSH PEG SCH ×6 (00:20→20:28)
[2023-03-11 07:50] LABS: Hematocrit (blood only) 24.5 % (42.0-52.0); Hemoglobin 7.9 g/dl (14.0-18.0); Mean Corpuscular Hemoglobin 30.3 pg (25.0-34.0); Mean Corpuscular Hgb Conc 32.2 g/dL (32.0-36.0); Mean Corpuscular Volume 93.9 fL (80.0-100.0); Mean Platelet Volume 10.9 fL (9.4-12.4); Platelet Count 280 K/uL (130-400); RDW Coefficient of Variation 14.9 % (11.5-14.5); RDW Standard Deviation 51.1 fL (36.4-46.3); Red Blood Count 2.61 M/uL (4.70-6.10); White Blood Count 9.67 K/ul (4.8-10.8)
[2023-03-11] MEDS: CEFEPIME 1,000 MG in SYRINGE 0 ML IV SCH ×2 (08:00→20:42)
[2023-03-11] MEDS: CARBIDOPA/LEVODOPA 25/100MG TAB PEG SCH ×2 (08:00→20:28)
[2023-03-11] MEDS: LANSOPRAZOLE 30 MG SOLTAB PEG SCH ×2 (08:00→20:28)
[2023-03-11] MEDS: DONEPEZIL HCL 5 MG TAB PO SCH (08:00)
[2023-03-11] MEDS: ASPIRIN 81 MG CHEW PEG SCH (08:00)
[2023-03-11] MEDS: FLUCONAZOLE 100 MG TAB PEG SCH (08:01)
[2023-03-11 08:04] LABS: BUN Creatinine Ratio 28.8 (10-20); Calcium 7.2 mg/dl (8.6-10.3); Creatinine Clr Calc Pharmacy 17.4 ml/min; Est GFR (African American) 16.7 ml/min; Est GFR (Non-African American) 14.4 ml/min
[2023-03-11] MEDS ORDERED: VANCOMYCIN HCL 500 MG in DEXTROSE 5% 100 ML IV ONE (12:00)
[2023-03-11] MEDS: RIFAMPIN PEG SCH (17:47)
--- NOTE | 2023-03-11 18:32 | Hospitalist Progress Note ---
Date of Service March 11, 2023 Assessment & Plan (1) Septic shock: (2) Acute hypernatremia: (3) Acute renal failure (ARF): (4) Goals of care, counseling/discussion: (5) Anemia: (6) Wounds and injuries: Plan Patient is an 87 yr male presents from [facility] with septic shock, renal failure. Revoked hospice for ED admission per request who was traveling from [facility]. Pt was intubated. Admitting team confirmed No CPR, defibrillation, cardioversion in the event of cardiac arrest. Palliative care evaluated. He is being managed for the following: Intermittent fever Despite treating with multiple antibiotics Appreciate ID input Poor prognosis Plan to discharge to rehab facility when accepted Started on Zosyn-on 03/08/23, continue vancomycin>> transition to Vanco, cefepime Repeat blood cultures 11/19: Coagulase-negative staph not lugdunensis Patient's prefers to continue current management despite explaining very poor prognosis Repeat blood cultures11/21 growing coagulase-negative staph Candiduria Catheter changed and repeat test came back positive for Liliana Urine culture growing Liliana albicans Discussed with the pharmacist Started on Diflucan through the G-tube Plan to complete Diflucan for 14 day course As per prior hospitalist Anemia: Hemoglobin >7, no active bleeding. PBS without Schistocytes, normal reticulocyte count, hemolysis less likely. Iron deficiency present. Poor nutrition does not help. Cont iron supplementation and proper nutrition. 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 Weaned off pressors and extubated 02/06. Pansensitive Klebsiella in sputum. Liliana in sputum likely a contaminant Urine Culture: Noncontributory (H/O chronic Villasenor, recent h/o of UTI) ECHO: EF 50 to 55%, bioprosthetic aortic valve, mild mitral regurgitation, grade 2 diastolic dysfunction, mild tricuspid regurgitation High risk for aspiration pneumonia. Known recent month long admission with urosepsis; was recently on Hospice Repeat blood cultures were negative. Initially admitted on Vanc/Zosyn 02/03 Plan will be total 6 weeks of Vancomycin with rifampin added from 02/16/23 with surveillance cultures (2 sets from the periphery) 5-7 days post completion of abx therapy. Continue current antibiotics and will change according to the plan Discussed with the about discharging him on approval to go to the [facility]-awaiting placement Continue wound care for decubitus ulcers Continue air mattress Severe protein calorie malnutrition H/O Esophageal dysmotility Dysphagia: Speech therapy involved in his care this admission. Palliative care involved, Patient's POA now agreeing to no escalation of care (pressors, CPR, intubation). She declines COURT. However, POA would like PEG feeds. PEG placed 02/14-tolerating feeds without residual Remains high risk for aspiration [facility] cannot accept him back with PEG in place PEG feed held due to vomiting, resume peg feed at low rate, and upto 50% of goal for now. Consider pr bowel regimen to help w/ constipation as needed, moved large bowel per RN. Keep HOB at 30 degrees/aspiration precautions. No problem with the PEG feeding-electrolytes unremarkable Continue with the PEG tube feeding Acute hypoxic respiratory failure Secondary to left lower lobe pneumonia likely due to aspiration Was weaned down to 2L NC O2, had vomiting and aspiration event 02/19, TF was held, and unasyn added 02/20. Repeat chest x-ray tomorrow-chest x-ray showing cardiomegaly with pulmonary edema and a small pleural effusion Given Lasix as needed Wean off of supplemental oxygen as able Currently on 4 L supplemental oxygen Acute metabolic encephalopathy/known Dementia Secondary to above, in setting of Lewy body dementia and Hypernatremia (Na was 164 on admission 02/03), sodium now normal - 144 CT head: No significant change compared to the prior study. No acute intracranial abnormality. Elev. troponin: Troponin level 400's on admission - likely type II ID, secondary to above. No further workup at this time. Acute Hypernatremia: resolved. Acute Renal Failure: present at admission which was resolved. Had another bump in Cr on 02/20, d/w nephro - no ivf/avoid nephrotoxics/hold vanc until acceptable trough level achieved. appreciate recs. Pt's doesn't want villasenor cath, c/w intermittent st cath to avoid obstruction. Nephro managing Renal function slowly worsening Cr 3.58 today Cautious use of IV fluids given tendency to overload easily Received IV fluids Continue oral fluids via PEG tube Chronic Villasenor/urinary retention: Villasenor was replaced this admission. doesn't want villasenor, TOV done, currently on intermittent cath- would write for three times daily on discharge and [facility] urology is aware of his need for follow-up. would like to consider TURP or other prostate surgery in the future For now, will cont with alpha-ban. The only one that will go through the PEG is terazosin This capsule has to be melted in warm water for 15 minutes and then given as a solution through the PEG. Villasenor were changed and urine will be sent for repeat culture and sensitivity With culture grew Liliana albicans and started on oral Diflucan Per prior hospitalist WOUNDS: Multiple sites of ulceration with necrosis There are multiple pressure sites for skin breakdown This was a possible source for his sepsis this admission Wound care nurse consulted. 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 secondary to bleeding/fall risk H/O TIA Continue home medications DVT px: SCDs Code Status DNI/DNR Guarded prognosis Likely Needs LTAC placement Admission and Anticipated Discharge Date Admission Date: February 03, 2023 Subjective Patient is seen and examined at bedside Remains obtunded Blood pressure relatively soft today Discussed with patient's family at bedside Coarse breath sounds on exam Saturating well on 4 L supplemental oxygen Creatinine continues to peak Review of Systems Review of Systems: Other Physical Exam Physical Exam: Physical Exam: Vitals signs as noted above General Appearance:Elderly, Ill appearing, no apparent distress Head: normocephalic, Atraumatic Eyes: normal inspection, EOMI Neck: supple, Trachea midline Respiratory/Chest: Decreased coarse breath sounds, No accessory muscle use Cardiovascular: S1, S2, + murmur Abdomen/GI:Soft, Non tender, +Peg tube, Bowel sounds present Extremities/Musculoskeletal:normal inspection, 1+ Trace pedal edema Neurologic/Psych: nonverbal, does not follow commands, Obtunded Skin: normal color, warm Results & Data Results & Data Vital Signs (Past 12 Hours) Vital Signs Temp Pulse Resp BP BP Pulse Ox O2 Del Method 03/11/23 07:50 Nasal Cannula 03/11/23 15:02 37.1 C 72 18 120/64 94 Nasal Cannula 03/11/23 08:27 37.1 C 73 18 99/54 L 95 Nasal Cannula O2 Flow Rate 03/11/23 07:50 4 03/11/23 15:02 4 03/11/23 08:27 4 Laboratory Results Short CBC 03/11/23 Range/Units 07:26 WBC 9.67 (4.8-10.8) K/ul Hgb 7.9 L (14.0-18.0) g/dl Hct 24.5 L (42.0-52.0) % Plt Count 280 (130-400) K/uL BMP 03/11/23 07:26 Sodium 143 Potassium 5.0 Chloride 106 Carbon Dioxide 29 BUN 103 H Creatinine 3.58 H D Glucose 154 H Calcium 7.2 L
[2023-03-11] MEDS: ATORVASTATIN 20 MG TAB PEG SCH (20:29)
[2023-03-11] MEDS: TERAZOSIN HCL 1 MG CAP PO SCH (20:31)
[2023-03-12] MEDS: TUBE FEEDING WATER FLUSH PEG SCH ×6 (00:12→20:05)
[2023-03-12] MEDS: NUTREN LIQD 2.0 1,000 ML BAG PEG SCH (05:44)
[2023-03-12 07:23] LABS: Hemoglobin 7.5 g/dl (14.0-18.0); Mean Corpuscular Hemoglobin 29.5 pg (25.0-34.0); Mean Corpuscular Hgb Conc 32.6 g/dL (32.0-36.0); Mean Corpuscular Volume 90.6 fL (80.0-100.0); Mean Platelet Volume 11.3 fL (9.4-12.4); Platelet Count 300 K/uL (130-400); RDW Coefficient of Variation 14.8 % (11.5-14.5); RDW Standard Deviation 48.9 fL (36.4-46.3); Red Blood Count 2.54 M/uL (4.70-6.10); White Blood Count 9.98 K/ul (4.8-10.8)
[2023-03-12 07:43] LABS: BUN Creatinine Ratio 27.8 (10-20); Calcium 7.2 mg/dl (8.6-10.3); Creatinine Clr Calc Pharmacy 15.7 ml/min; Est GFR (African American) 14.8 ml/min; Est GFR (Non-African American) 12.8 ml/min
[2023-03-12] MEDS: CARBIDOPA/LEVODOPA 25/100MG TAB PEG SCH ×2 (09:38→21:11)
[2023-03-12] MEDS: DONEPEZIL HCL 5 MG TAB PO SCH (09:39)
[2023-03-12] MEDS: FLUCONAZOLE 100 MG TAB PEG SCH (09:39)
[2023-03-12] MEDS: LANSOPRAZOLE 30 MG SOLTAB PEG SCH ×2 (09:40→21:13)
[2023-03-12] MEDS: CEFEPIME 1,000 MG in SYRINGE 0 ML IV SCH ×2 (09:42→21:14)
[2023-03-12] MEDS: ASPIRIN 81 MG CHEW PEG SCH (09:42)
--- NOTE | 2023-03-12 09:47 | Nephrology Progress Note ---
Date of Service March 12, 2023 Assessment & Plan Admission and Anticipated Discharge Date Admission Date: February 03, 2023 Subjective Assessment & Plan (1) Acute renal failure (ARF): Plan: Nephrology following intermittently for multiple episodes of acute kidney injury this admission. Earlier this admission he had prerenal HERSON with peak creatinine 5.6 February 04; improved to approximately 1.2-1.3 creatinine then recurrent acute kidney injury in the setting of aspiration pneumonia diagnosis and therapy February 20 w/ creatinine going from 1 > 1.7 in 24 hrs and then plateau'd at about 2 since February 21; not oliguric; did require Villasenor replacement in this timeframe. Now having another episode of ARF from ATN in the setting of new bacteremia on Blood C/s from 03/08. has some pulm congestion and has been getting enough iv fluids so this is not a case of prerenal type of ARF. Revisit Abx choice and dose given rising creat. This is not good. At this rate he will be in dialysis needing type of Numbers in few days. However doing Dialysis on him would be absolutely not advised. No iv fluid and no lasix. S--Unable to get any history. Physical Exam Constitutional: well developed (contracted; lies in position), + cachectic and + frail appearing; no acute distress Eyes: eyes open; minimal eomi/ does not track ENMT: Mouth: + dry oral mucous membranes and + poor dentition Respiratory: normal respiratory effort Auscultation: + diminished lung sounds and + crackles Cardiovascular: Rate/Rhythm: regular rate and regular rhythm Extremities: no edema Gastrointestinal (Abdomen): Inspection/Auscultation: normal bowel sounds and + scaphoid (PEG present) Musculoskeletal: contracted/ rigid > full assist to turn in bed Skin: several areas of breakdown Neurologic: aphasic, resting tremor; eyes open does not track or follow commands Genitourinary: villasenor w/ ample urine Results & Data Vital Signs (Past 12 Hours) Vital Signs Temp Pulse Resp BP Pulse Ox O2 Del Method O2 Flow Rate 03/12/23 07:11 36.9 C 76 20 109/67 94 Nasal Cannula 4
--- NOTE | 2023-03-12 11:00 | Pharmacy Report ---
Pharmacy PK ABX Note - Date of Service March 12, 2023 - Assessment and Plan Assessment * 87 year old M receiving vancomycin/rifampin x 6 weeks for bacteremia/concerns for endocarditis. Also receiving fluconazole po for hilary in urine and cefepime empirically as was spiking fevers. Per notes total therapy for vancomycin/rifampin will be 6 weeks added from 02/16/23. * Renal function continues to decline: SCr 2.31--> 2.5--> 3.2--> 3.58--> 3.95 mg/dL today. * Have been dosing vanc based on random vanc levels. Random level this morning is supratherapeutic. Given rising SCr which potentially has not yet peaked, will hold off on vancomycin dosing for today. Will re-check random level tomorrow morning and re-dose vancomycin at that time if appropriate. Vancomycin * Current regimen: Dosing by levels * Random vancomycin level this AM, 22.2mcg/mL (~22hr level). * Random level ordered for tomorrow @ 06 to guide further dosing. Pharmacy will continue to follow and will adjust dose/frequency as necessary. Thank you.
--- NOTE | 2023-03-12 16:40 | Palliative Care Progress Note ---
Date of Service March 12, 2023 Assessment & Plan (1) Palliative care by specialist: (2) Wounds and injuries: (3) Dysphagia: (4) Protein calorie malnutrition: (5) Lewy body dementia: (6) Parkinson's disease: Plan Chart reviewed. Please consider an ethics consult, contact his sons for additional framework regarding prior known advanced illness wishes (see my early family meetings notes when ex was present at initial family meetings) and I recommend consideration for court appointed guardianship. While patient preferences should generally be honored, clinical judgment must still be exercised to maximize benefit and minimize harm. "Doing everything" does not mean everything beyond which there is no medical benefit - this falls into a best interest standard: Do that which will maximize good and limit harm. This requires a heavy dependence on Quality of Life issues. Providers are under no obligation to provide/offer treatments that will not meet the humanistic goals of medicine: to make better or cure. Also will note that multiple organizations, including the [employer] and the [employer], have released statements endorsing the following approach to nutritional support in advanced dementia: Do not recommend percutaneous feeding tubes in patients with advanced dementia; instead, offer oral assisted feeding. May also consider: contacting [employer], a public service of the [place] [employer] which helps with connecting you to services for older adults and their families. You can reach them at or https://[employer]gov/Public/Index.aspx Case d/w Kevin Felipe/case mgt. Thank you for allowing us to participate in the ongoing care of this patient. Please don't hesitate to call or page with any additional concerns. Dr. Mica Salazar DNP Director, Palliative Care Admission and Anticipated Discharge Date Admission Date: February 03, 2023 Subjective Contacted by JEOVANY/Kevin Felipe seeking palliative re engagement/chart review. Patient continues steady decline and remains adamant for levels of care and post acute care which are unreasonable for his condition. See prior notes/. Results & Data Vital Signs (Past 12 Hours) Vital Signs Temp Pulse Resp BP Pulse Ox O2 Del Method O2 Flow Rate 03/12/23 15:01 36.7 C 65 17 138/74 97 Room Air 03/12/23 09:40 Nasal Cannula 4 03/12/23 07:11 36.9 C 76 20 109/67 94 Nasal Cannula 4 PG Care Time/CCT Total # of Minutes Spent Total Time Spent with Patient: Total time spent is greater than 50% in coordination of care (as documented) at patient's floor/unit and/or counseling patient: Coding Level of Care Code 14090 SUB INP/OBS CARE 2/35MIN Diagnoses Palliative care by specialist Z51.5 Wounds and injuries T14.90XA Dysphagia R13.10 Protein calorie malnutrition E46 Lewy body dementia G31.83; F02.80 Parkinson's disease G20
[2023-03-12] MEDS: RIFAMPIN PEG SCH (17:00)
--- NOTE | 2023-03-12 17:36 | Hospitalist Progress Note ---
Date of Service March 12, 2023 Assessment & Plan (1) Septic shock: (2) Acute hypernatremia: (3) Acute renal failure (ARF): (4) Goals of care, counseling/discussion: (5) Anemia: (6) Wounds and injuries: Plan Patient is an 87 yr male presents from [facility] with septic shock, renal failure. Revoked hospice for ED admission per request who was traveling from [facility]. Pt was intubated. Admitting team confirmed No CPR, defibrillation, cardioversion in the event of cardiac arrest. Palliative care evaluated. He is being managed for the following: Intermittent fever Despite treating with multiple antibiotics Appreciate ID input Poor prognosis Plan to discharge to rehab facility when accepted Started on Zosyn-on 03/08/23, continue vancomycin>> transition to Vanco, cefepime Repeat blood cultures 11/19: Coagulase-negative staph not lugdunensis Patient's prefers to continue current management despite explaining very poor prognosis Repeat blood cultures11/21 growing coagulase-negative staph Persistent bacteremia despite aggressive IV antibiotics We will consider to reconsult ID Candiduria Catheter changed and repeat test came back positive for Liliana Urine culture growing Liliana albicans Discussed with the pharmacist Started on Diflucan through the G-tube Plan to complete Diflucan for 14 day course As per prior hospitalist Anemia: Hemoglobin >7, no active bleeding. PBS without Schistocytes, normal reticulocyte count, hemolysis less likely. Iron deficiency present. Poor nutrition does not help. Cont iron supplementation and proper nutrition. 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 Weaned off pressors and extubated 02/06. Pansensitive Klebsiella in sputum. Liliana in sputum likely a contaminant Urine Culture: Noncontributory (H/O chronic Villasenor, recent h/o of UTI) ECHO: EF 50 to 55%, bioprosthetic aortic valve, mild mitral regurgitation, grade 2 diastolic dysfunction, mild tricuspid regurgitation High risk for aspiration pneumonia. Known recent month long admission with urosepsis; was recently on Hospice Repeat blood cultures were negative. Initially admitted on Vanc/Zosyn 02/03 Plan will be total 6 weeks of Vancomycin with rifampin added from 02/16/23 with surveillance cultures (2 sets from the periphery) 5-7 days post completion of abx therapy. Continue current antibiotics and will change according to the plan Discussed with the about discharging him on approval to go to the [facility]-awaiting placement Continue wound care for decubitus ulcers Continue air mattress Severe protein calorie malnutrition H/O Esophageal dysmotility Dysphagia: Speech therapy involved in his care this admission. Palliative care involved, Patient's POA now agreeing to no escalation of care (pressors, CPR, intubation). She declines COURT. However, POA would like PEG feeds. PEG placed 02/14-tolerating feeds without residual Remains high risk for aspiration [facility] cannot accept him back with PEG in place PEG feed held due to vomiting, resume peg feed at low rate, and upto 50% of goal for now. Consider pr bowel regimen to help w/ constipation as needed, moved large bowel per RN. Keep HOB at 30 degrees/aspiration precautions. No problem with the PEG feeding-electrolytes unremarkable Continue with the PEG tube feeding Acute hypoxic respiratory failure Secondary to left lower lobe pneumonia likely due to aspiration Was weaned down to 2L NC O2, had vomiting and aspiration event 02/19, TF was held, and unasyn added 02/20. Repeat chest x-ray tomorrow-chest x-ray showing cardiomegaly with pulmonary edema and a small pleural effusion Given Lasix as needed Wean off of supplemental oxygen as able Currently on 4 L supplemental oxygen Acute metabolic encephalopathy/known Dementia Secondary to above, in setting of Lewy body dementia and Hypernatremia (Na was 164 on admission 02/03), sodium now normal - 144 CT head: No significant change compared to the prior study. No acute intracranial abnormality. Elev. troponin: Troponin level 400's on admission - likely type II CA, secondary to above. No further workup at this time. Acute Hypernatremia: resolved. Acute Renal Failure: present at admission which was resolved. Had another bump in Cr on 02/20, d/w nephro - no ivf/avoid nephrotoxics/hold vanc until acceptable trough level achieved. appreciate recs. Pt's doesn't want villasenor cath, c/w intermittent st cath to avoid obstruction. Nephro managing Renal function slowly worsening ATN Cr 3.95 today Cautious use of IV fluids given tendency to overload easily Received IV fluids Continue oral fluids via PEG tube Chronic Villasenor/urinary retention: Villasenor was replaced this admission. doesn't want villasenor, TOV done, currently on intermittent cath- would write for three times daily on discharge and [facility] urology is aware of his need for follow-up. would like to consider TURP or other prostate surgery in the future For now, will cont with alpha-ban. The only one that will go through the PEG is terazosin This capsule has to be melted in warm water for 15 minutes and then given as a solution through the PEG. Villasenor were changed and urine will be sent for repeat culture and sensitivity With culture grew Liliana albicans and started on oral Diflucan Per prior hospitalist WOUNDS: Multiple sites of ulceration with necrosis There are multiple pressure sites for skin breakdown This was a possible source for his sepsis this admission Wound care nurse consulted. 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 secondary to bleeding/fall risk H/O TIA Continue home medications DVT px: SCDs Code Status DNI/DNR Guarded prognosis Likely Needs LTAC placement Admission and Anticipated Discharge Date Admission Date: February 03, 2023 Subjective Patient is seen and examined at bedside Remains Normal Opens eyes with stimulus intermittently Renal functioning worsening Discussed with nephrology today Persistent bacteremia despite aggressive antibiotics Poor Prognosis Discussed with patient's at bedside on multiple occasions who understands his critical condition but prefers to continue current management Review of Systems Review of Systems: Other Physical Exam Physical Exam: Physical Exam: Vitals signs as noted above General Appearance:Elderly, Ill appearing, no apparent distress Head: normocephalic, Atraumatic Eyes: normal inspection, EOMI Neck: supple, Trachea midline Respiratory/Chest: Decreased coarse breath sounds, No accessory muscle use Cardiovascular: S1, S2, + murmur Abdomen/GI:Soft, Non tender, +Peg tube, Bowel sounds present Extremities/Musculoskeletal:normal inspection, 1+ Trace pedal edema Neurologic/Psych: nonverbal, does not follow commands, Obtunded Skin: normal color, warm Results & Data Results & Data Vital Signs (Past 12 Hours) Vital Signs Temp Pulse Resp BP Pulse Ox O2 Del Method O2 Flow Rate 03/12/23 15:01 36.7 C 65 17 138/74 97 Room Air 03/12/23 09:40 Nasal Cannula 4 03/12/23 07:11 36.9 C 76 20 109/67 94 Nasal Cannula 4 Laboratory Results Short CBC 03/12/23 Range/Units 06:37 WBC 9.98 (4.8-10.8) K/ul Hgb 7.5 L (14.0-18.0) g/dl Hct 23.0 L (42.0-52.0) % Plt Count 300 (130-400) K/uL BMP 03/12/23 06:37 Sodium 142 Potassium 5.0 Chloride 106 Carbon Dioxide 28 BUN 110 H Creatinine 3.95 H D Glucose 131 H Calcium 7.2 L
[2023-03-12] MEDS: ATORVASTATIN 20 MG TAB PEG SCH (21:11)
[2023-03-12] MEDS: TERAZOSIN HCL 1 MG CAP PO SCH (21:11)
[2023-03-13] MEDS: TUBE FEEDING WATER FLUSH PEG SCH ×7 (01:03→23:49)
[2023-03-13 06:34] LABS: Hematocrit (blood only) 22.7 % (42.0-52.0); Hemoglobin 7.4 g/dl (14.0-18.0)
--- NOTE | 2023-03-13 08:58 | Hospitalist Progress Note ---
Date of Service March 13, 2023 Assessment & Plan (1) Septic shock: (2) Acute hypernatremia: (3) Acute renal failure (ARF): (4) Goals of care, counseling/discussion: (5) Anemia: (6) Wounds and injuries: Plan Per previous hospitalist w/ addendum Patient is an 87 yr male presents from [facility] with septic shock, renal failure. Revoked hospice for ED admission per request who was traveling from [facility]. Pt was intubated. Admitting team confirmed No CPR, defibrillation, cardioversion in the event of cardiac arrest. Palliative care evaluated. He is being managed for the following: Intermittent fever Despite treating with multiple antibiotics Appreciate ID input Poor prognosis Plan to discharge to rehab facility when accepted Started on Zosyn-on 03/08/23, continue vancomycin>> transition to Vanco, cefepime Repeat blood cultures /: Coagulase-negative staph not lugdunensis Patient's prefers to continue current management despite explaining very poor prognosis Repeat blood cultures11/21 growing coagulase-negative staph Persistent bacteremia despite aggressive IV antibiotics We will consider to reconsult ID Candiduria Catheter changed and repeat test came back positive for Liliana Urine culture growing Liliana albicans Discussed with the pharmacist Started on Diflucan through the G-tube Plan to complete Diflucan for 14 day course As per prior hospitalist Anemia: Hemoglobin >7, no active bleeding. PBS without Schistocytes, normal reticulocyte count, hemolysis less likely. Iron deficiency present. Poor nutrition does not help. Cont iron supplementation and proper nutrition. Hemoglobin is 7.4 as of 02/25/2023 Will check hemoglobin if it is less than 7 will transfuse Hemoglobin dropped down to 6.6 and gave 2 units of blood transfusion Hemoglobin went up to more than 9 and the patient has been feeling better Hb 7.4 today As per prior hospitalist Septic Shock with staph (SEAM HAMMERER not lugdunensis) bacteremia: possible sources include skin vs pneumonia and UTI with indwelling Villasenor. Weaned off pressors and extubated 02/06. Pansensitive Klebsiella in sputum. Liliana in sputum likely a contaminant Urine Culture: Noncontributory (H/O chronic Villasenor, recent h/o of UTI) ECHO: EF 50 to 55%, bioprosthetic aortic valve, mild mitral regurgitation, grade 2 diastolic dysfunction, mild tricuspid regurgitation High risk for aspiration pneumonia. Known recent month long admission with urosepsis; was recently on Hospice Repeat blood cultures were negative. Initially admitted on Vanc/Zosyn 02/03 Plan will be total 6 weeks of Vancomycin with rifampin added from 02/16/23 with surveillance cultures (2 sets from the periphery) 5-7 days post completion of abx therapy. Continue current antibiotics and will change according to the plan Discussed with the about discharging him on approval to go to the [facility]-awaiting placement Continue wound care for decubitus ulcers Continue air mattress Severe protein calorie malnutrition H/O Esophageal dysmotility Dysphagia: Speech therapy involved in his care this admission. Palliative care involved, Patient's POA now agreeing to no escalation of care (pressors, CPR, intubation). She declines COURT. However, POA would like PEG feeds. PEG placed 02/14-tolerating feeds without residual Remains high risk for aspiration [facility] cannot accept him back with PEG in place PEG feed held due to vomiting, resume peg feed at low rate, and upto 50% of goal for now. Consider pr bowel regimen to help w/ constipation as needed, moved large bowel per RN. Keep HOB at 30 degrees/aspiration precautions. No problem with the PEG feeding-electrolytes unremarkable Continue with the PEG tube feeding Acute hypoxic respiratory failure Secondary to left lower lobe pneumonia likely due to aspiration Was weaned down to 2L NC O2, had vomiting and aspiration event 02/19, TF was held, and unasyn added 02/20. Repeat -chest x-ray showing cardiomegaly with pulmonary edema and a small pleural effusion Given Lasix as needed Wean off of supplemental oxygen as able Currently on 4 L supplemental oxygen Acute metabolic encephalopathy/known Dementia Secondary to above, in setting of Lewy body dementia and Hypernatremia (Na was 164 on admission 02/03), sodium now normal - 144 CT head: No significant change compared to the prior study. No acute intracranial abnormality. Elev. troponin: Troponin level 400's on admission - likely type II LA, secondary to above. No further workup at this time. Acute Hypernatremia: resolved. Acute Renal Failure: present at admission which was resolved. Had another bump in Cr on 02/20, d/w nephro - no ivf/avoid nephrotoxics/hold vanc until acceptable trough level achieved. appreciate recs. Pt's doesn't want villasenor cath, c/w intermittent st cath to avoid obstruction. Nephro managing Renal function slowly worsening ATN Cr 4.2 today - 1lL of NS ordered by nephrology - BUN also rising and HD not advi sed- may need ethics consultation. Discussed w/ Dr. sr - palliative med. today (03/13/23) - plan to meet pt's together to further discuss, Cautious use of IV fluids given tendency to overload easily Received IV fluids Continue oral fluids via PEG tube Chronic Villasenor/urinary retention: Villasenor was replaced this admission. doesn't want villasenor, TOV done, currently on intermittent cath- would write for three times daily on discharge and [facility] urology is aware of his need for follow-up. would like to consider TURP or other prostate surgery in the future For now, will cont with alpha-ban. The only one that will go through the PEG is terazosin This capsule has to be melted in warm water for 15 minutes and then given as a solution through the PEG. Villasenor were changed With culture grew Liliana albicans and started on oral Diflucan Per prior hospitalist WOUNDS: Multiple sites of ulceration with necrosis There are multiple pressure sites for skin breakdown This was a possible source for his sepsis this admission Wound care nurse consulted. 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 failure, s/p aspiration post PEG tube , poss. endocarditis Laying in bed in NAD, does not respond to voice or touch. Appears in NAD. Renal functioning worsening Poor Prognosis Previous hospitalist discussed with patient's at bedside on multiple occasions who understands his critical condition but prefers to continue current management. I have seen pt today with Dr. Sr (from palliative med) at the bedside and discussed - plan to meet with the pt's in person and discuss together. Review of Systems Review of Systems: Unobtainable due to cognitive status Physical Exam Physical Exam: General Appearance:Elderly frail, chronically Ill appearing, no apparent distress, on suppl. oxygen Head: normocephalic, Atraumatic Eyes: normal inspection Neck: supple Respiratory/Chest: Decreased breath sounds, + rhonchi, No accessory muscle use Cardiovascular: S1, S2, + murmur Abdomen/GI:Soft, Non tender, +Peg tube, Bowel sounds present Extremities/Musculoskeletal:normal inspection, 1+ Trace pedal edema Neurologic/Psych: nonverbal, does not follow commands, Obtunded Skin: normal color, warm Results & Data Results & Data Vital Signs (Past 12 Hours) Vital Signs Temp Pulse Resp BP Pulse Ox O2 Del Method O2 Flow Rate 03/13/23 07:29 37.1 C 71 38 H 96/55 L 93 Nasal Cannula 4 03/12/23 21:14 Nasal Cannula 4 03/12/23 22:25 36.6 C 71 17 100/60 94 Nasal Cannula 4 Laboratory Results 03/13/23 03/13/23 03/13/23 Range/Units 05:58 05:58 05:58 Hgb 7.4 L (14.0-18.0) g/dl Hct 22.7 L (42.0-52.0) % Sodium 143 (136-145) mmol/L Potassium 5.0 (3.5-5.1) mmol/L Chloride 106 (98-107) mmol/L Carbon Dioxide 28 (21-32) mmol/L Anion Gap 9 (3-11) BUN 117 H (6-23) mg/dl Creatinine 4.29 H D (0.6-1.4) mg/dl Est Cr Clr Drug Dosing 14.5 ml/min Est GFR ( Amer) 13.4 ml/min Est GFR (Non-Af Amer) 11.6 ml/min BUN/Creatinine Ratio 27.3 H (10-20) Glucose 144 H (70-99(Fasting)) mg/dl Calcium 7.3 L (8.6-10.3) mg/dl Random Vancomycin 19.3 (10-20) mcg/ml Medications Administered Current Inpatient Medications Acetaminophen (Acetaminophen 325 Mg Tab) 650 mg PEG Q4H PRN PRN Reason: Pain or Fever Stop: 03/13/23 10:34 Last Admin: 03/08/23 07:38 Dose: 650 mg Albuterol (Albut/Ipratrop 3mg/0.5mg Neb 3 Ml Vial) 3 ml NEB Q4R PRN; Protocol PRN Reason: Shortness Of Breath Or Wheezing Stop: 03/22/23 02:59 Last Admin: 03/08/23 07:46 Dose: 3 ml Aspirin (Aspirin 81 Mg Chew) 81 mg PEG QAM FERNIE Stop: 03/19/23 08:59 Last Admin: 03/12/23 09:42 Dose: 81 mg Atorvastatin Calcium (Atorvastatin 20 Mg Tab) 20 mg PEG QPM FERNIE Stop: 03/18/23 20:59 Last Admin: 03/12/23 21:11 Dose: 20 mg Carbidopa/Levodopa (Carbidopa/Levodopa 25/100mg Tab) 1 tab PEG BID FERNIE Stop: 03/18/23 20:59 Last Admin: 03/12/23 21:11 Dose: 1 tab Donepezil HCl (Donepezil Hcl 5 Mg Tab) 5 mg PO QAM FERNIE Stop: 03/13/23 08:59 Last Admin: 03/12/23 09:39 Dose: 5 mg Fluconazole (Fluconazole 100 Mg Tab) 100 mg PEG QAM FERNIE; Protocol Stop: 03/16/23 08:59 Last Admin: 03/12/23 09:39 Dose: 100 mg Heparin Sodium (Beef Lung) (Heparin 10 Unit/Ml 5 Ml Flush) 5 ml FLUSH PRN PRN PRN Reason: Flush Stop: 04/08/23 15:32 Last Admin: 03/12/23 21:14 Dose: 5 ml Cefepime HCl 1,000 mg/ Syringe 10 mls @ 5 mls/min IV Q12H FERNIE; Protocol Stop: 03/15/23 20:59 Last Admin: 03/12/23 21:14 Dose: 5 mls/min Lansoprazole (Lansoprazole 30 Mg Soltab) 30 mg PEG QAM FERNIE Stop: 03/19/23 08:59 Last Admin: 02/21/23 08:47 Dose: 30 mg Lansoprazole (Lansoprazole 30 Mg Soltab) 30 mg PEG BID FERNIE Stop: 04/03/23 20:59 Last Admin: 03/12/23 21:13 Dose: 30 mg Miscellaneous Information (Vancomycin Consult Active) 1 each N/A UD PRN PRN Reason: Consult Stop: 03/20/23 06:47 Nutritional Formula (Nutren Liqd 2.0 1,000 Ml Bag) 1,000 ml PEG UD [facility]; Protocol Stop: 03/22/23 15:44 Last Admin: 03/12/23 05:44 Dose: 1,000 ml Rifampin (Rifampin 600mg/60ml Udp) 600 mg PEG Q24H FERNIE Stop: 03/30/23 17:59 Last Admin: 03/12/23 17:00 Dose: 600 mg Sterile Water (Tube Feeding Water Flush) 250 ml PEG Q4 FERNIE Stop: 04/09/23 09:29 Last Admin: 03/13/23 05:00 Dose: 250 ml Terazosin HCl (Terazosin Hcl 1 Mg Cap) 2 mg PO HS FERNIE Stop: 03/22/23 20:59 Last Admin: 03/12/23 21:11 Dose: 2 mg
[2023-03-13] MEDS: LANSOPRAZOLE 30 MG SOLTAB PEG SCH ×2 (09:30→20:54)
[2023-03-13] MEDS: ASPIRIN 81 MG CHEW PEG SCH (09:30)
[2023-03-13] MEDS: FLUCONAZOLE 100 MG TAB PEG SCH (09:30)
[2023-03-13] MEDS: CEFEPIME 1,000 MG in SYRINGE 0 ML IV SCH ×2 (09:30→20:55)
[2023-03-13] MEDS: CARBIDOPA/LEVODOPA 25/100MG TAB PEG SCH ×2 (09:30→20:54)
[2023-03-13 09:39] LABS: BUN Creatinine Ratio 27.3 (10-20); Calcium 7.3 mg/dl (8.6-10.3); Creatinine Clr Calc Pharmacy 14.5 ml/min; Est GFR (African American) 13.4 ml/min; Est GFR (Non-African American) 11.6 ml/min
--- NOTE | 2023-03-13 09:49 | Nephrology Progress Note ---
Date of Service March 13, 2023 Assessment & Plan Admission and Anticipated Discharge Date Admission Date: February 03, 2023 Subjective Subjective Assessment & Plan (1) Acute renal failure (ARF): Plan: Nephrology following intermittently for multiple episodes of acute kidney injury this admission. Earlier this admission he had prerenal HERSON with peak creatinine 5.6 February 04; improved to approximately 1.2-1.3 creatinine then recurrent acute kidney injury in the setting of aspiration pneumonia diagnosis and therapy February 20 w/ creatinine going from 1 > 1.7 in 24 hrs and then plateau'd at about 2 since February 21; not oliguric; did require Villasenor replacement in this timeframe. Now having another episode of ARF from ATN in the setting of new bacteremia on Blood C/s from 03/08. Has some pulm congestion and has been getting enough fluids--through tube feed and free water flushes every day so this is not a case of prerenal type of ARF. But out of desperation i will give 1000 ml NS to help raise the BP a bit. Revisit Abx choice and dose given rising creat. This is not good. At this rate he will be in dialysis needing type of Numbers in few days. BUN already 120 and creat rising every day and now 4.3. However doing Dialysis on him would be absolutely not advised and would fall under the category of ethics Consult and review. Reviewed Palliative med note and agree with her plan. S--Unable to get any history. Physical Exam Constitutional: well developed (contracted; lies in position), + cachectic and + frail appearing; no acute distress Eyes: eyes open; minimal eomi/ does not track ENMT: Mouth: + dry oral mucous membranes and + poor dentition Respiratory: normal respiratory effort Auscultation: + diminished lung sounds and + crackles Cardiovascular: Rate/Rhythm: regular rate and regular rhythm Extremities: no edema Gastrointestinal (Abdomen): Inspection/Auscultation: normal bowel sounds and + scaphoid (PEG present) Musculoskeletal: contracted/ rigid > full assist to turn in bed Skin: several areas of breakdown Neurologic: aphasic, resting tremor; eyes open does not track or follow commands Genitourinary: villasenor w/ ample urine Results & Data Vital Signs (Past 12 Hours) Vital Signs Temp Pulse Resp BP Pulse Ox O2 Del Method O2 Flow Rate 03/13/23 07:29 37.1 C 71 38 H 96/55 L 93 Nasal Cannula 4 03/12/23 22:25 36.6 C 71 17 100/60 94 Nasal Cannula 4
[2023-03-13] MEDS: SODIUM CHLORIDE 0.9% 1000ML 1,000 ML IV SCH ×2 (10:15→20:50)
--- NOTE | 2023-03-13 11:09 | Pharmacy Report ---
Pharmacy PK ABX Note - Date of Service March 13, 2023 - Assessment and Plan Assessment * 87 year old M receiving vancomycin/rifampin x 6 weeks for bacteremia/concerns for endocarditis. Also receiving fluconazole po for hilary in urine and cefepime empirically as was spiking fevers. Per notes total therapy for vancomycin/rifampin will be 6 weeks added from 02/16/23. * Renal function continues to decline: SCr 2.31--> 2.5--> 3.2--> 3.58--> 3.95 --> 4.29 mg/dL today. * Have been dosing vanc based on random vanc levels. Random level this morning, 19.3mcg/mL which is therapeutic. Given rising SCr which potentially has not yet peaked, as well as decrease in concentration by 3mcg/mL in 24h without drug, will hold off on vancomycin dosing again today. Will re-check random level tomorrow morning and re-dose vancomycin at that time if appropriate. Vancomycin * Current regimen: Dosing by levels * Random vancomycin level this AM, 19.3mcg/mL (~ 42h since last vancomycin dose) * Random level ordered for tomorrow with AM labs to guide further dosing. Pharmacy will continue to follow and will adjust dose/frequency as necessary. Thank you.
--- NOTE | 2023-03-13 15:54 | Palliative Care Progress Note ---
Date of Service March 13, 2023 Assessment & Plan (1) Palliative care encounter: Plan: Extensive family meeting with Jules's , Audelia, Dr. Benítez and department of sociology chair on [employer]. Current medical challenges reviewed including progressive renal failure. His severe protein calorie malnutrition is actually worse after one month of PEG feedings with 5lb weight loss and albumin decreased from 2.6 to 1.9. He has had difficulty tolerating PEG feedings at times with aspiration and respiratory failure. His respiratory status has had some improvement but he remains on 4L O2. He continues on 6 week course of antibiotics for sepsis and concern for endocarditis which were started in January. His vancomycin is currently on hold due to renal function. Despite treatment, he has intermittent fevers with Tmax of 102.4 on 03/08. He has had progressive increase in creatinine up to 4.29 today with BUN of 117. This was explained to his with concern that despite our best efforts, his prognosis is poor and he is likely approaching his dying time. We discussed options to continue current level of care and monitor creatinine, though per nephrology, he would not be a candidate for dialysis. We also discussed comfort focused approach to care and exactly what that would look like. Answered specific questions about what medications would be used, use of oxygen, continued feedings. His states that she is not ready to make a decision on this and would like to discuss further with nephrology about dialysis. She will be in his room on Saturday am by 830, hoping to meet with nephrology and discuss further. Palliative care will f/u after she has an opportunity to discuss with nephrology. Admission and Anticipated Discharge Date Admission Date: February 03, 2023 Subjective Opens eyes at times. Does not follow commands. Review of Systems Review of Systems: Unobtainable due to cognitive status Physical Exam Constitutional: + ill appearing Neck: tracheostomy Respiratory: normal respiratory effort; no labored breathing Gastrointestinal (Abdomen): PEG with continuous feed at 40cc/hr Musculoskeletal: Extremities: + muscle atrophy Neurologic: Speech / Cognition: normal cognition lethargic Genitourinary: villasenor catheter Results & Data Vital Signs (Past 12 Hours) Vital Signs Temp Pulse Resp BP Pulse Ox O2 Del Method O2 Flow Rate 03/13/23 08:00 98.1 F 70 18 102/52 L 96 Nasal Cannula 4 03/13/23 07:35 Nasal Cannula 4 03/13/23 07:29 98.8 F 71 38 H 96/55 L 93 Nasal Cannula 4 PG Care Time/CCT Total # of Minutes Spent Total Time Spent: 99 Total Time Spent with Patient: Total time spent is greater than 50% in coordination of care (as documented) at patient's floor/unit and/or counseling patient: [id number] family education and support, prognosis, goals of care Coding Level of Care Code 35673 Prolonged Care (int'l) Diagnoses Palliative care encounter Z51.5
[2023-03-13] MEDS: RIFAMPIN PEG SCH (18:11)
[2023-03-13] MEDS: ATORVASTATIN 20 MG TAB PEG SCH (20:54)
[2023-03-13] MEDS: TERAZOSIN HCL 1 MG CAP PO SCH (20:55)
[2023-03-14] MEDS: TUBE FEEDING WATER FLUSH PEG SCH ×5 (04:00→21:01)
[2023-03-14 06:34] LABS: BUN Creatinine Ratio 26.2 (10-20); Creatinine Clr Calc Pharmacy 13.8 ml/min; Est GFR (African American) 12.6 ml/min; Est GFR (Non-African American) 10.9 ml/min; Magnesium 2.2 mg/dl (1.7-2.4); Phosphorus 4.2 mg/dl (2.5-4.9)
--- NOTE | 2023-03-14 07:50 | Hospitalist Progress Note ---
Date of Service March 14, 2023 Assessment & Plan (1) Septic shock: (2) Acute hypernatremia: (3) Acute renal failure (ARF): (4) Goals of care, counseling/discussion: (5) Anemia: (6) Wounds and injuries: Plan Per previous hospitalist w/ addendum Patient is an 87 yr male presents from [facility] with septic shock, renal failure. Revoked hospice for ED admission per request who was traveling from [facility]. Pt was intubated. Admitting team confirmed No CPR, defibrillation, cardioversion in the event of cardiac arrest. Palliative care evaluated. He is being managed for the following: Intermittent fever Despite treating with multiple antibiotics Appreciate ID input Poor prognosis Plan to discharge to rehab facility when accepted Started on Zosyn-on 03/08/23, continue vancomycin>> transition to Vanco, cefepime Repeat blood cultures /: Coagulase-negative staph not lugdunensis Patient's prefers to continue current management despite explaining very poor prognosis Repeat blood cultures11/21 growing coagulase-negative staph Persistent bacteremia despite aggressive IV antibiotics We will consider to reconsult ID - plan to discuss w/ Dr. Delgado tomorrow (not available today) Candiduria Catheter changed and repeat test came back positive for Liliana Urine culture growing Liliana albicans Discussed with the pharmacist Started on Diflucan through the G-tube Plan to complete Diflucan for 14 day course As per prior hospitalist Anemia: Hemoglobin >7, no active bleeding. PBS without Schistocytes, normal reticulocyte count, hemolysis less likely. Iron deficiency present. Poor nutrition does not help. Cont iron supplementation and proper nutrition. Hemoglobin is 7.4 as of 02/25/2023 Will check hemoglobin if it is less than 7 will transfuse Hemoglobin dropped down to 6.6 and gave 2 units of blood transfusion Hemoglobin went up to more than 9 and the patient has been feeling better Hb 7.4 As per prior hospitalist Septic Shock with staph (BOLT LOADER not lugdunensis) bacteremia: possible sources include skin vs pneumonia and UTI with indwelling Villasenor. Weaned off pressors and extubated 02/06. Pansensitive Klebsiella in sputum. Liliana in sputum likely a contaminant Urine Culture: Noncontributory (H/O chronic Villasenor, recent h/o of UTI) ECHO: EF 50 to 55%, bioprosthetic aortic valve, mild mitral regurgitation, grade 2 diastolic dysfunction, mild tricuspid regurgitation High risk for aspiration pneumonia. Known recent month long admission with urosepsis; was recently on Hospice Repeat blood cultures were negative. Initially admitted on Vanc/Zosyn 02/03 Plan will be total 6 weeks of Vancomycin with rifampin added from 02/16/23 with surveillance cultures (2 sets from the periphery) 5-7 days post completion of abx therapy. Continue current antibiotics and will change according to the plan Discussed with the about discharging him on approval to go to the [facility]-awaiting placement Continue wound care for decubitus ulcers Continue air mattress Severe protein calorie malnutrition H/O Esophageal dysmotility Dysphagia: Speech therapy involved in his care this admission. Palliative care involved, Patient's POA now agreeing to no escalation of care (pressors, CPR, intubation). She declines COURT. However, POA would like PEG feeds. PEG placed 02/14-tolerating feeds without residual Remains high risk for aspiration [facility] cannot accept him back with PEG in place PEG feed held due to vomiting, resume peg feed at low rate, and upto 50% of goal for now. Consider pr bowel regimen to help w/ constipation as needed, moved large bowel per RN. Keep HOB at 30 degrees/aspiration precautions. No problem with the PEG feeding-electrolytes unremarkable Continue with the PEG tube feeding Acute hypoxic respiratory failure Secondary to left lower lobe pneumonia likely due to aspiration Was weaned down to 2L NC O2, had vomiting and aspiration event 02/19, TF was held, and unasyn added 02/20. Repeat -chest x-ray showing cardiomegaly with pulmonary edema and a small pleural effusion Given Lasix as needed Wean off of supplemental oxygen as able Currently on 4 L supplemental oxygen Acute metabolic encephalopathy/known Dementia Secondary to above, in setting of Lewy body dementia and Hypernatremia (Na was 164 on admission 02/03), sodium now normal - 144 CT head: No significant change compared to the prior study. No acute intracranial abnormality. Elev. troponin: Troponin level 400's on admission - likely type II [place], secondary to above. No further workup at this time. Acute Hypernatremia: resolved. Acute Renal Failure: present at admission which was resolved. Had another bump in Cr on 02/20, d/w nephro - no ivf/avoid nephrotoxics/hold vanc until acceptable trough level achieved. appreciate recs. Pt's doesn't want villasenor cath, c/w intermittent st cath to avoid obstruction. Nephro managing Renal function slowly worsening ATN Cr 4.5 today - 1/2 NS with 75 meq bicarb at 80 ml/hr ordered by nephrology today, pls see nephrology note for further detail - BUN also rising and HD not advised- may need ethics consultation. Discussed w/ Dr. Sr - palliative med. (03/13/23) and pt's Cautious use of IV fluids given tendency to overload easily Received IV fluids, as above Continue oral fluids via PEG tube Chronic Villasenor/urinary retention: Villasenor was replaced this admission. doesn't want villasenor, TOV done, currently on intermittent cath- would write for three times daily on discharge and [facility] urology is aware of his need for follow-up. would like to consider TURP or other prostate surgery in the future For now, will cont with alpha-ban. The only one that will go through the PEG is terazosin This capsule has to be melted in warm water for 15 minutes and then given as a solution through the PEG. Villasenor were changed With culture grew Liliana albicans and started on oral Diflucan Per prior hospitalist WOUNDS: Multiple sites of ulceration with necrosis There are multiple pressure sites for skin breakdown This was a possible source for his sepsis this admission Wound care nurse consulted. 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 failure, s/p aspiration post PEG tube , poss. endocarditis Laying in bed in NAD, does not respond to voice or touch. Appears in NAD. Renal functioning worsening Poor Prognosis Previous hospitalist discussed with patient's at bedside on multiple occasions who understands his critical condition but prefers to continue current management. I met with pt's yesterday with Dr. Sr (from palliative med) at the bedside and discussed goals of care. (meeting at least 1 hr long) Today met with the pt's again at the bedside (meeting at least 1 hr long) Review of Systems Review of Systems: All systems reviewed & are unremarkable except as noted in Subjective Physical Exam Physical Exam: General Appearance: Elderly frail, chronically Ill appearing, no apparent distress, on suppl. oxygen Head: normocephalic, Atraumatic Eyes: normal inspection Neck: supple Respiratory/Chest: Decreased breath sounds, + rhonchi, No accessory muscle use Cardiovascular: S1, S2, + murmur Abdomen/GI:Soft, Non tender, +Peg tube, Bowel sounds present Extremities/Musculoskeletal: normal inspection, 1+ Trace pedal edema Neurologic/Psych: nonverbal, does not follow commands, Obtunded Skin: normal color, warm Results & Data Results & Data Vital Signs (Past 12 Hours) Vital Signs Temp Pulse Resp BP Pulse Ox O2 Del Method O2 Flow Rate 03/14/23 07:37 36.5 C 66 16 126/73 97 Nasal Cannula 4 03/14/23 00:14 Nasal Cannula 4 03/13/23 21:06 36.5 C 65 20 119/67 97 Nasal Cannula 4 Laboratory Results 03/14/23 03/14/23 03/13/23 Range/Units 05:36 05:36 05:58 Sodium 141 143 (136-145) mmol/L Potassium 5.0 5.0 (3.5-5.1) mmol/L Chloride 107 106 (98-107) mmol/L Carbon Dioxide 26 28 (21-32) mmol/L Anion Gap 8 9 (3-11) BUN 118 H 117 H (6-23) mg/dl Creatinine 4.51 H* 4.29 H D (0.6-1.4) mg/dl Est Cr Clr Drug Dosing 13.8 14.5 ml/min Est GFR ( Amer) 12.6 13.4 ml/min Est GFR (Non-Af Amer) 10.9 11.6 ml/min BUN/Creatinine Ratio 26.2 H 27.3 H (10-20) Glucose 160 H 144 H (70-99(Fasting)) mg/dl Calcium 7.0 L 7.3 L (8.6-10.3) mg/dl Phosphorus 4.2 (2.5-4.9) mg/dl Magnesium 2.2 (1.7-2.4) mg/dl Random Vancomycin 17.2 (10-20) mcg/ml 03/13/23 Range/Units 05:58 Sodium (136-145) mmol/L Potassium (3.5-5.1) mmol/L Chloride (98-107) mmol/L Carbon Dioxide (21-32) mmol/L Anion Gap (3-11) BUN (6-23) mg/dl Creatinine (0.6-1.4) mg/dl Est Cr Clr Drug Dosing ml/min Est GFR ( Amer) ml/min Est GFR (Non-Af Amer) ml/min BUN/Creatinine Ratio (10-20) Glucose (70-99(Fasting)) mg/dl Calcium (8.6-10.3) mg/dl Phosphorus (2.5-4.9) mg/dl Magnesium (1.7-2.4) mg/dl Random Vancomycin 19.3 (10-20) mcg/ml Medications Administered Current Inpatient Medications Albuterol (Albut/Ipratrop 3mg/0.5mg Neb 3 Ml Vial) 3 ml NEB Q4R PRN; Protocol PRN Reason: Shortness Of Breath Or Wheezing Stop: 03/22/23 02:59 Last Admin: 03/08/23 07:46 Dose: 3 ml Aspirin (Aspirin 81 Mg Chew) 81 mg PEG QAM [facility] Stop: 03/19/23 08:59 Last Admin: 03/13/23 09:30 Dose: 81 mg Atorvastatin Calcium (Atorvastatin 20 Mg Tab) 20 mg PEG QPM FERNIE Stop: 03/18/23 20:59 Last Admin: 03/13/23 20:54 Dose: 20 mg Carbidopa/Levodopa (Carbidopa/Levodopa 25/100mg Tab) 1 tab PEG BID [facility] Stop: 03/18/23 20:59 Last Admin: 03/13/23 20:54 Dose: 1 tab Fluconazole (Fluconazole 100 Mg Tab) 100 mg PEG QAM [facility]; Protocol Stop: 03/16/23 08:59 Last Admin: 03/13/23 09:30 Dose: 100 mg Heparin Sodium (Beef Lung) (Heparin 10 Unit/Ml 5 Ml Flush) 5 ml FLUSH PRN PRN PRN Reason: Flush Stop: 04/08/23 15:32 Last Admin: 03/12/23 21:14 Dose: 5 ml Cefepime HCl 1,000 mg/ Syringe 10 mls @ 5 mls/min IV Q12H [facility]; Protocol Stop: 03/15/23 20:59 Last Admin: 03/13/23 20:55 Dose: 5 mls/min Sodium Chloride (Nss 1000ml) 1,000 mls @ 80 mls/hr IV .[id number] [facility] Stop: 04/12/23 09:44 Last Admin: 03/13/23 20:50 Dose: 80 mls/hr Lansoprazole (Lansoprazole 30 Mg Soltab) 30 mg PEG QAM [facility] Stop: 03/19/23 08:59 Last Admin: 02/21/23 08:47 Dose: 30 mg Lansoprazole (Lansoprazole 30 Mg Soltab) 30 mg PEG BID [facility] Stop: 04/03/23 20:59 Last Admin: 03/13/23 20:54 Dose: 30 mg Miscellaneous Information (Vancomycin Consult Active) 1 each N/A UD PRN PRN Reason: Consult Stop: 03/20/23 06:47 Nutritional Formula (Nutren Liqd 2.0 1,000 Ml Bag) 1,000 ml PEG UD [facility]; Protocol Stop: 03/22/23 15:44 Last Admin: 03/12/23 05:44 Dose: 1,000 ml Rifampin (Rifampin 600mg/60ml Udp) 600 mg PEG Q24H [facility] Stop: 03/30/23 17:59 Last Admin: 03/13/23 18:11 Dose: 600 mg Sterile Water (Tube Feeding Water Flush) 250 ml PEG Q4 FERNIE Stop: 04/09/23 09:29 Last Admin: 03/14/23 04:00 Dose: 250 ml Terazosin HCl (Terazosin Hcl 1 Mg Cap) 2 mg PO HS [facility] Stop: 03/22/23 20:59 Last Admin: 03/13/23 20:55 Dose: 2 mg
[2023-03-14] MEDS: CARBIDOPA/LEVODOPA 25/100MG TAB PEG SCH ×2 (08:32→20:59)
[2023-03-14] MEDS: FLUCONAZOLE 100 MG TAB PEG SCH (08:32)
[2023-03-14] MEDS: LANSOPRAZOLE 30 MG SOLTAB PEG SCH ×2 (08:32→21:01)
[2023-03-14] MEDS: CEFEPIME 1,000 MG in SYRINGE 0 ML IV SCH ×2 (08:44→21:08)
[2023-03-14] MEDS: ASPIRIN 81 MG CHEW PEG SCH (08:44)
[2023-03-14] MEDS: SODIUM CHLORIDE 0.9% 1000ML 1,000 ML IV SCH (08:45)
[2023-03-14] MEDS ORDERED: VANCOMYCIN HCL 500 MG in DEXTROSE 5% 100 ML IV ONE (09:00)
[2023-03-14] MEDS ORDERED: STAT IV STA (09:41)
--- NOTE | 2023-03-14 10:00 | Nephrology Progress Note ---
Date of Service March 14, 2023 Assessment & Plan Admission and Anticipated Discharge Date Admission Date: February 03, 2023 Subjective Assessment & Plan (1) Acute renal failure (ARF): Plan: Nephrology following intermittently for multiple episodes of acute kidney injury this admission. Earlier this admission he had prerenal HERSON with peak creatinine 5.6 February 04; improved to approximately 1.2-1.3 creatinine then recurrent acute kidney injury in the setting of aspiration pneumonia diagnosis and therapy February 20 w/ creatinine going from 1 > 1.7 in 24 hrs and then plateau'd at about 2 since February 21; not oliguric; did require Villasenor replacement in this timeframe. Now having another episode of ARF from ATN in the setting of new bacteremia on Blood C/s from 03/08. Has some pulm congestion and has been getting enough fluids--through tube feed and free water flushes every day so this is not a case of prerenal type of ARF. But to give benefit of doubt will conitnue 1/ NS with 75 meq bicarb at 80 ml/hr.. Revisit Abx choice and dose given rising creat. At this rate he will be in dialysis needing type of Numbers in few days. creat rising slowly every day and now 4.5. He had creat of 6 on admission which recovered so there is a chance that he may recover again. As of today he does not need dialysis. However doing Dialysis if such need arise would be absolutely not advised and would fall under the category of ethics Consult and review. Reviewed Palliative med note and agree with her plan. Discussed with Palliative med, Primary team. I have called and left voice mail to risk management and also Ethics committee. Will need to Discuss this further. I spent 1 hr 30 min in coordinating and discussing with various persons listed above. S--Unable to get any history. on PEG tube and Iv fluid. Physical Exam Constitutional: well developed (contracted; lies in position), + cachectic and + frail appearing; no acute distress Eyes: eyes open; minimal eomi/ does not track ENMT: Mouth: + dry oral mucous membranes and + poor dentition Respiratory: normal respiratory effort Auscultation: + diminished lung sounds and + crackles Cardiovascular: Rate/Rhythm: regular rate and regular rhythm Extremities: no edema Gastrointestinal (Abdomen): Inspection/Auscultation: normal bowel sounds and + scaphoid (PEG present) Musculoskeletal: contracted/ rigid > full assist to turn in bed Skin: several areas of breakdown Neurologic: aphasic, resting tremor; eyes open does not track or follow commands Genitourinary: villasenor w/ ample urine Results & Data Vital Signs (Past 12 Hours) Vital Signs Temp Pulse Resp BP Pulse Ox O2 Del Method O2 Flow Rate 03/14/23 07:37 36.5 C 66 16 126/73 97 Nasal Cannula 4 03/14/23 00:14 Nasal Cannula 4
[2023-03-14] MEDS: SODIUM BICARBONATE 8.4% 75 MEQ in SODIUM CHLORIDE 0.45 % 1,000 ML IV SCH (11:22)
--- NOTE | 2023-03-14 12:52 | Pharmacy Report ---
Pharmacy PK ABX Note - Date of Service March 14, 2023 - Assessment and Plan Assessment * 87 year old M receiving vancomycin/rifampin x 6 weeks for bacteremia/concerns for endocarditis. Also receiving fluconazole po for hilary in urine and cefepime empirically as was spiking fevers. Per notes total therapy for vancomycin/rifampin will be 6 weeks added from 02/16/23. * Renal function continues to decline: SCr 2.31--> 2.5--> 3.2--> 3.58--> 3.95 --> 4.29 --> 4.51 mg/dL today. * Have been dosing vanc based on random vanc levels. Random level this morning, 17.2 mcg/mL which is therapeutic. * Patient can safely receive low dose of Vancomycin 500 mg IV x 1 today morning. * Will re-check random level on 03/16 morning and re-dose vancomycin as appropriate. Vancomycin * Current regimen: Dosing by levels * Random vancomycin level this AM, 17.2 mcg/mL (~ 66hr since last vancomycin dose) * Vancomycin 500 mg IV x1 given this morning at 10 AM * Random level ordered for 03/16 with AM labs to guide further dosing. Pharmacy will continue to follow and will adjust dose/frequency as necessary. Thank you.
[2023-03-14] MEDS: guaiFENesin SUGAR FREE 200 MG/10 ML UDC PO SCH ×3 (13:57→21:01)
[2023-03-14] MEDS: RIFAMPIN PEG SCH (18:28)
[2023-03-14] MEDS: ATORVASTATIN 20 MG TAB PEG SCH (20:59)
[2023-03-14] MEDS: TERAZOSIN HCL 1 MG CAP PO SCH (21:00)
[2023-03-15] MEDS: TUBE FEEDING WATER FLUSH PEG SCH ×6 (00:11→20:19)
[2023-03-15] MEDS: SODIUM BICARBONATE 8.4% 75 MEQ in SODIUM CHLORIDE 0.45 % 1,000 ML IV SCH (00:12)
[2023-03-15] MEDS: guaiFENesin SUGAR FREE 200 MG/10 ML UDC PO SCH ×4 (03:27→20:19)
[2023-03-15 06:51] LABS: Hematocrit (blood only) 21.1 % (42.0-52.0); Hemoglobin 6.7 g/dl (14.0-18.0)
[2023-03-15 06:56] LABS: BUN Creatinine Ratio 28.1 (10-20); Calcium 7.2 mg/dl (8.6-10.3); Creatinine Clr Calc Pharmacy 14.5 ml/min; Est GFR (African American) 13.4 ml/min; Est GFR (Non-African American) 11.6 ml/min; Magnesium 2.1 mg/dl (1.7-2.4); Phosphorus 4.2 mg/dl (2.5-4.9); Potassium 4.8 mmol/L (3.5-5.1)
--- NOTE | 2023-03-15 08:29 | XRay Report ---
SINGLE VIEW CHEST CLINICAL HISTORY: Dyspnea. FINDINGS: An AP, portable, upright chest radiograph is compared to study dated 03/08/2023 and correlat ed with chest CT dated 08/27/2021. A 2-lead cardiac pacemaker is unchanged in position. The patient i s status post midline sternotomy. The heart is enlarged noting atherosclerotic calcification of the t horacic aorta. There is pulmonary vascular congestion. There are small layering pleural effusions wit h bibasilar airspace opacities. No pneumothorax is seen. The skeletal structures are osteopenic. Ther e are chronic/old left-sided rib fractures. Surgical clips are noted in the upper abdomen. IMPRESSION: 1. Cardiomegaly and cardiac pacemaker with evidence of congestive failure. 2. Layering pleural effusions with bibasilar opacities. This could represent increasing pulmonary bushra ma, atelectasis, and/or an infectious/inflammatory pneumonitis. Clinical correlation would be require d and radiographic follow-up to resolution is recommended ACT 112: Negative or not required by law. Electronically signed by: Rancho Roberts M.D. 03/15/2023 8:27 AM
[2023-03-15] MEDS: FLUCONAZOLE 100 MG TAB PEG SCH (08:45)
[2023-03-15] MEDS: ASPIRIN 81 MG CHEW PEG SCH (08:45)
[2023-03-15] MEDS: CARBIDOPA/LEVODOPA 25/100MG TAB PEG SCH ×2 (08:45→20:20)
[2023-03-15] MEDS: LANSOPRAZOLE 30 MG SOLTAB PEG SCH ×2 (08:46→20:20)
[2023-03-15] MEDS: CEFEPIME 1,000 MG in SYRINGE 0 ML IV SCH (09:03)
--- NOTE | 2023-03-15 09:03 | Palliative Care Progress Note ---
Date of Service March 15, 2023 Assessment & Plan (1) Palliative care encounter: Plan: Family meeting with palliative care and nephrology planned this morning. I spoke with Jules's , Audelia, on the phone. She is unable to attend family meeting this morning. She tells me that she does not feel like she needs to talk with the kidney doctor. Offered to meet with her later today if she's available but she declined. Palliative care will follow peripherally for now. Admission and Anticipated Discharge Date Admission Date: February 03, 2023 Subjective No response to voice or touch. Opened eyes earlier per RN. Review of Systems Review of Systems: Unobtainable due to cognitive status and Unobtainable due to reduced consciousness Physical Exam Constitutional: + ill appearing Respiratory: + tachypneic Auscultation: + rhonchi Cardiovascular: Extremities: + edema Gastrointestinal (Abdomen): PEG tube Neurologic: Speech / Cognition: + abnormal cognition Results & Data Vital Signs (Past 12 Hours) Vital Signs Temp Pulse Resp BP Pulse Ox O2 Del Method O2 Flow Rate 03/15/23 07:55 32 H 03/15/23 07:39 98.2 F 76 18 139/73 96 Nasal Cannula 4 03/14/23 22:19 98.1 F 69 18 122/56 L 95 Nasal Cannula 5 PG Care Time/CCT Total # of Minutes Spent Total Time Spent with Patient: Total time spent is greater than 50% in coordination of care (as documented) at patient's floor/unit and/or counseling patient: Coding Level of Care Code 96281 SUB INP/OBS CARE 1/25MIN Diagnoses Palliative care encounter Z51.5
--- NOTE | 2023-03-15 09:57 | Nephrology Progress Note ---
Date of Service March 15, 2023 Assessment & Plan Admission and Anticipated Discharge Date Admission Date: February 03, 2023 Subjective Assessment & Plan (1) Acute renal failure (ARF): Plan: Nephrology following intermittently for multiple episodes of acute kidney injury this admission. Earlier this admission he had prerenal HERSON with peak creatinine 5.6 February 04; improved to approximately 1.2-1.3 creatinine then recurrent acute kidney injury in the setting of aspiration pneumonia diagnosis and therapy February 20 w/ creatinine going from 1 > 1.7 in 24 hrs and then plateau'd at about 2 since February 21; not oliguric; did require Villasenor replacement in this timeframe. Now having another episode of ARF from ATN in the setting of new bacteremia on Blood C/s from 03/08. He had creat of 6 on admission which recovered so there is a chance that he may recover again. As of today he does not need dialysis.Creat did go down a bit. Also urine output picked up a bit--some hopeful signs. but hgb is low and he now has some Pulm edema + Aspiration pneumonitis on CXR done earlier today. No iv fluid. give lasix 40 mg iv x 1 if he gets PRBC. However doing Dialysis if such need arise would be absolutely not advised and would fall under the category of ethics Consult and review. after discussing with ethics committee it seems if he gets to the point of needing dialysis and if the POA says to do dialysis we will do dialysis even though I personally would not agree with this Treatment. I spent 45 mins in coordinating and discussing and plan of care. S--Unable to get any history. on PEG tube and Iv fluid. Physical Exam Constitutional: well developed (contracted; lies in position), + cachectic and + frail appearing; no acute distress Eyes: eyes open; minimal eomi/ does not track ENMT: Mouth: + dry oral mucous membranes and + poor dentition Respiratory: normal respiratory effort Auscultation: + diminished lung sounds and + crackles Cardiovascular: Rate/Rhythm: regular rate and regular rhythm Extremities: no edema Gastrointestinal (Abdomen): Inspection/Auscultation: normal bowel sounds and + scaphoid (PEG present) Musculoskeletal: contracted/ rigid > full assist to turn in bed Skin: several areas of breakdown Neurologic: aphasic, resting tremor; eyes open does not track or follow commands Genitourinary: villasenor w/ ample urine Results & Data Vital Signs (Past 12 Hours) Vital Signs Temp Pulse Resp BP Pulse Ox O2 Del Method O2 Flow Rate 03/15/23 07:55 32 H 03/15/23 07:39 36.8 C 76 18 139/73 96 Nasal Cannula 4 03/14/23 22:19 36.7 C 69 18 122/56 L 95 Nasal Cannula 5
--- NOTE | 2023-03-15 10:50 | Hospitalist Progress Note ---
Date of Service March 15, 2023 Assessment & Plan (1) Septic shock: (2) Acute hypernatremia: (3) Acute renal failure (ARF): (4) Goals of care, counseling/discussion: (5) Anemia: (6) Wounds and injuries: Plan Per previous hospitalist w/ addendum Patient is an 87 yr male presents from [facility] with septic shock, renal failure. Revoked hospice for ED admission per request who was traveling from [facility]. Pt was intubated. Admitting team confirmed No CPR, defibrillation, cardioversion in the event of cardiac arrest. Palliative care evaluated. He is being managed for the following: Intermittent fever Despite treating with multiple antibiotics Appreciate ID input Poor prognosis Plan to discharge to rehab facility when accepted Started on Zosyn-on 03/08/23, continue vancomycin>> transition to Vanco, cefepime Repeat blood cultures 11/19: Coagulase-negative staph not lugdunensis Patient's prefers to continue current management despite explaining very poor prognosis Repeat blood cultures11/21 growing coagulase-negative staph Persistent bacteremia despite aggressive IV antibiotics Discussed w/ Dr. Delgado today 03/15 - given worsening renal function - will switch to daptomycin - dose was discussed w/ pharmacy as well Candiduria Catheter changed and repeat test came back positive for Liliana Urine culture growing Liliana albicans Discussed with the pharmacist Started on Diflucan through the G-tube Plan to complete Diflucan for 14 day course As per prior hospitalist Anemia: Hemoglobin >7, no active bleeding. PBS without Schistocytes, normal reticulocyte count, hemolysis less likely. Iron deficiency present. Poor nutrition does not help. Cont iron supplementation and proper nutrition. Hemoglobin is 7.4 as of 02/25/2023 Will check hemoglobin if it is less than 7 will transfuse Hemoglobin dropped down to 6.6 and gave 2 units of blood transfusion Hemoglobin went up to more than 9 and the patient has been feeling better Hb 6.7 - will transfuse 1 unit of pRBC (will give IV lasix w/ transfusion) As per prior hospitalist Septic Shock with staph ([employer] not lugdunensis) bacteremia: possible sources include skin vs pneumonia and UTI with indwelling Villasenor. Weaned off pressors and extubated 02/06. Pansensitive Klebsiella in sputum. Liliana in sputum likely a contaminant Urine Culture: Noncontributory (H/O chronic Villasenor, recent h/o of UTI) ECHO: EF 50 to 55%, bioprosthetic aortic valve, mild mitral regurgitation, grade 2 diastolic dysfunction, mild tricuspid regurgitation High risk for aspiration pneumonia. Known recent month long admission with urosepsis; was recently on Hospice Repeat blood cultures were negative. Initially admitted on Vanc/Zosyn 02/03 Plan will be total 6 weeks of Vancomycin with rifampin added from 02/16/23 with surveillance cultures (2 sets from the periphery) 5-7 days post completion of abx therapy. Continue current antibiotics and will change according to the plan Discussed with the about discharging him on approval to go to the [facility]-awaiting placement Continue wound care for decubitus ulcers Continue air mattress Severe protein calorie malnutrition H/O Esophageal dysmotility Dysphagia: Speech therapy involved in his care this admission. Palliative care involved, Patient's POA now agreeing to no escalation of care (pressors, CPR, intubation). She declines COURT. However, POA would like PEG feeds. PEG placed 02/14-tolerating feeds without residual Remains high risk for aspiration [facility] cannot accept him back with PEG in place PEG feed held due to vomiting, resume peg feed at low rate, and upto 50% of goal for now. Consider pr bowel regimen to help w/ constipation as needed, moved large bowel per RN. Keep HOB at 30 degrees/aspiration precautions. No problem with the PEG feeding-electrolytes unremarkable Continue with the PEG tube feeding Acute hypoxic respiratory failure Secondary to left lower lobe pneumonia likely due to aspiration Was weaned down to 2L NC O2, had vomiting and aspiration event 02/19, TF was held, and unasyn added 02/20. Repeat -chest x-ray showing cardiomegaly with pulmonary edema and a small pleural effusion Given Lasix as needed Wean off of supplemental oxygen as able Currently on 4 L supplemental oxygen Today 03/15 - tachypneic pulm congestion on CXR (pt received IVF to see if it helps with his worsening renal function). IVF stopped, and frr water decreased. Pt will also need blood transfusion and so IV lasix will be given as well. Cont. to closely monitor Acute metabolic encephalopathy/known Dementia Secondary to above, in setting of Lewy body dementia and Hypernatremia (Na was 164 on admission 02/03), sodium now normal - 144 CT head: No significant change compared to the prior study. No acute intracranial abnormality. Elev. troponin: Troponin level 400's on admission - likely type II MD, secondary to above. No further workup at this time. Acute Hypernatremia: resolved. Acute Renal Failure: present at admission which was resolved. Had another bump in Cr on 02/20, d/w nephro - no ivf/avoid nephrotoxics/hold vanc until acceptable trough level achieved. appreciate recs. Pt's doesn't want villasenor cath, c/w intermittent st cath to avoid obstruction. Nephro managing Renal function slowly worsening ATN Cr 4.3 today - nephrology following closely, stopped IVF d/t pulm. congestion. pls see nephrology note for further detail - BUN also rising and HD not advised Cautious use of IV fluids given tendency to overload easily Received IV fluids, as above Continue oral fluids via PEG tube Chronic Villasenor/urinary retention: Villasenor was replaced this admission. [facility] urology is aware of his need for follow-up. would like to consider TURP or other prostate surgery in the future For now, will cont with alpha-ban. The only one that will go through the PEG is terazosin This capsule has to be melted in warm water for 15 minutes and then given as a solution through the PEG. Villasenor were changed With culture grew Liliana albicans and started on oral Diflucan Per prior hospitalist WOUNDS: Multiple sites of ulceration with necrosis There are multiple pressure sites for skin breakdown This was a possible source for his sepsis this admission Wound care nurse consulted. 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 failure, s/p aspiration post PEG tube , poss. endocarditis Laying in bed in NAD, opens eyes intermittently. Increased respiration rate today, otherwise looks comfortable. Chest x-ray obtained. IVF stopped. Nephrology also notified. Hgb below 7 - discussed w/ Dr. Bone - will give IV lasix w/ blood transfusion. Also discussed w/ Dr. Delgado (ID) re: current Abx therapy Previous hospitalist discussed with patient's at bedside on multiple occasions who understands his critical condition but prefers to continue current management. I met with pt's and with Dr. Sr (from palliative med) at the bedside and discussed goals of care. (meeting at least 1 hr long) on 03/13. On 03/14 met with the pt's again at the bedside (meeting at least 1 hr long), very interested in trying high dose IV vit. C therapy - discussed that this would not be advised however she would like to pursue this. Contacted pharmacy and discussed this further. Renal function has been poor and Prognosis remains poor. Pt's was supposed to meet with Dr. Sr, and Dr. Bone from nephrology today, however she did not come to the meeting and when she was called on her phone, reportedly, she said she does not need to talk to them. Review of Systems Review of Systems: All systems reviewed & are unremarkable except as noted in Subjective Physical Exam Physical Exam: General Appearance: Elderly frail, chronically Ill appearing, no apparent distress however tachtpneic, on suppl. oxygen Head: normocephalic, Atraumatic Eyes: normal inspection Neck: supple Respiratory/Chest: Decreased breath sounds, + rhonchi, No accessory muscle use Cardiovascular: S1, S2, + murmur Abdomen/GI:Soft, Non tender, +Peg tube, Bowel sounds present Extremities/Musculoskeletal: normal inspection, 1+ Trace pedal edema Neurologic/Psych: nonverbal, does not follow commands, Obtunded Skin: normal color, warm Results & Data Results & Data Vital Signs (Past 12 Hours) Vital Signs Temp Pulse Resp BP Pulse Ox O2 Del Method O2 Flow Rate 03/15/23 07:55 32 H 03/15/23 07:39 36.8 C 76 18 139/73 96 Nasal Cannula 4 Laboratory Results 03/15/23 03/15/23 Range/Units 06:01 06:01 Hgb 6.7 L* (14.0-18.0) g/dl Hct 21.1 L (42.0-52.0) % Sodium 143 (136-145) mmol/L Potassium 4.8 (3.5-5.1) mmol/L Chloride 107 (98-107) mmol/L Carbon Dioxide 25 (21-32) mmol/L Anion Gap 11 (3-11) BUN 121 H (6-23) mg/dl Creatinine 4.30 H (0.6-1.4) mg/dl Est Cr Clr Drug Dosing 14.5 ml/min Est GFR ( Amer) 13.4 ml/min Est GFR (Non-Af Amer) 11.6 ml/min BUN/Creatinine Ratio 28.1 H (10-20) Glucose 143 H (70-99(Fasting)) mg/dl Calcium 7.2 L (8.6-10.3) mg/dl Phosphorus 4.2 (2.5-4.9) mg/dl Magnesium 2.1 (1.7-2.4) mg/dl Medications Administered Current Inpatient Medications Albuterol (Albut/Ipratrop 3mg/0.5mg Neb 3 Ml Vial) 3 ml NEB Q4R PRN; Protocol PRN Reason: Shortness Of Breath Or Wheezing Stop: 03/22/23 02:59 Last Admin: 03/08/23 07:46 Dose: 3 ml Aspirin (Aspirin 81 Mg Chew) 81 mg PEG QAM [facility] Stop: 03/19/23 08:59 Last Admin: 03/15/23 08:45 Dose: 81 mg Atorvastatin Calcium (Atorvastatin 20 Mg Tab) 20 mg PEG QPM FERNIE Stop: 03/18/23 20:59 Last Admin: 03/14/23 20:59 Dose: 20 mg Carbidopa/Levodopa (Carbidopa/Levodopa 25/100mg Tab) 1 tab PEG BID FERNIE Stop: 03/18/23 20:59 Last Admin: 03/15/23 08:45 Dose: 1 tab Fluconazole (Fluconazole 100 Mg Tab) 100 mg PEG QAM [facility]; Protocol Stop: 03/16/23 08:59 Last Admin: 03/15/23 08:45 Dose: 100 mg Guaifenesin (Guaifenesin Sugar Free 200 Mg/10 Ml Udc) 200 mg PO Q6H FERNIE Stop: 04/13/23 09:59 Last Admin: 03/15/23 09:08 Dose: 200 mg Heparin Sodium (Beef Lung) (Heparin 10 Unit/Ml 5 Ml Flush) 5 ml FLUSH PRN PRN PRN Reason: Flush Stop: 04/08/23 15:32 Last Admin: 03/12/23 21:14 Dose: 5 ml Cefepime HCl 1,000 mg/ Syringe 10 mls @ 5 mls/min IV Q12H FERNIE; Protocol Stop: 03/15/23 20:59 Last Admin: 03/15/23 09:03 Dose: 5 mls/min Ascorbic Acid 1,500 mg/ Sodium (Chloride) 103 mls @ 100 mls/hr IV Q8H [facility]; Protocol Stop: 03/19/23 10:59 Lansoprazole (Lansoprazole 30 Mg Soltab) 30 mg PEG QAM FERNIE Stop: 03/19/23 08:59 Last Admin: 02/21/23 08:47 Dose: 30 mg Lansoprazole (Lansoprazole 30 Mg Soltab) 30 mg PEG BID FERNIE Stop: 04/03/23 20:59 Last Admin: 03/15/23 08:46 Dose: 30 mg Miscellaneous Information (Vancomycin Consult Active) 1 each N/A UD PRN PRN Reason: Consult Stop: 03/20/23 06:47 Nutritional Formula (Nutren Liqd 2.0 1,000 Ml Bag) 1,000 ml PEG UD [facility]; Protocol Stop: 03/22/23 15:44 Last Admin: 03/12/23 05:44 Dose: 1,000 ml Rifampin (Rifampin 600mg/60ml Udp) 600 mg PEG Q24H FERNIE Stop: 03/30/23 17:59 Last Admin: 03/14/23 18:28 Dose: 600 mg Sterile Water (Tube Feeding Water Flush) 150 ml PEG Q4 FERNIE Stop: 04/14/23 11:59 Terazosin HCl (Terazosin Hcl 1 Mg Cap) 2 mg PO HS FERNIE Stop: 03/22/23 20:59 Last Admin: 03/14/23 21:00 Dose: 2 mg
[2023-03-15] MEDS ORDERED: ASCORBIC ACID 1,500 MG in 0.9 % SODIUM CHLORIDE 100 ML IV SCH (11:00)
[2023-03-15] MEDS ORDERED: SODIUM CHLORIDE 0.9% 250 ML IV PRN ×2 (11:34→12:33)
[2023-03-15] MEDS ORDERED: FUROSEMIDE 40 MG/4 ML VIAL IV PRN (11:36)
--- NOTE | 2023-03-15 12:48 | Communication Note ---
Date of Service: March 15, 2023 Met with Audelia at her request. She tells me that Jules never really talked about what he would want for his medical care if he were seriously ill. She feels very strongly that Jules chose her as his POA because he respected and trusted the [place] philosophy and approach to care. She explained that in [place], the idea of comfort care would not be presented as an option unless the patient requested it. Jules is not able to speak for himself at this point and has chosen her to speak for him. She has been with Jules for 30 years and feels that they have a deep spiritual connection that is guiding her as she makes decisions for his care. She realizes that he is in the end stage of his illness and that he will . She tells me that when his heart stops, she does not want resuscitation. She feels that is God's will. In the meantime, her wish is that he receive any care necessary to prolong his life. That would included transfusion, dialysis, enteral feeding.
[2023-03-15] MEDS: DAPTOmycin 800 MG in SYRINGE 0 ML IV SCH (14:47)
[2023-03-15] MEDS: NUTREN LIQD 2.0 1,000 ML BAG PEG SCH (17:01)
[2023-03-15] MEDS: RIFAMPIN PEG SCH (18:00)
[2023-03-15] MEDS: TERAZOSIN HCL 1 MG CAP PO SCH (20:19)
[2023-03-15] MEDS: ATORVASTATIN 20 MG TAB PEG SCH (20:20)
[2023-03-16] MEDS: TUBE FEEDING WATER FLUSH PEG SCH ×7 (00:47→23:39)
[2023-03-16] MEDS: ASCORBIC ACID IV SCH ×2 (00:50→13:25)
[2023-03-16] MEDS: SODIUM CHLORIDE 0.9% IV SCH ×2 (00:50→13:25)
[2023-03-16] MEDS: guaiFENesin SUGAR FREE 200 MG/10 ML UDC PO SCH ×4 (03:40→21:18)
[2023-03-16 06:14] LABS: BUN Creatinine Ratio 26.8 (10-20); Calcium 7.2 mg/dl (8.6-10.3); Creatinine Clr Calc Pharmacy 13.3 ml/min; Est GFR (African American) 12.1 ml/min; Est GFR (Non-African American) 10.5 ml/min; Magnesium 2.1 mg/dl (1.7-2.4); Phosphorus 4.3 mg/dl (2.5-4.9); Potassium 4.7 mmol/L (3.5-5.1)
[2023-03-16 06:27] LABS: Hematocrit (blood only) 22.3 % (42.0-52.0); Hemoglobin 7.2 g/dl (14.0-18.0); Mean Corpuscular Hgb Conc 32.3 g/dL (32.0-36.0); Mean Corpuscular Volume 92.9 fL (80.0-100.0); Mean Platelet Volume 11.2 fL (9.4-12.4); Platelet Count 326 K/uL (130-400); RDW Coefficient of Variation 14.7 % (11.5-14.5); RDW Standard Deviation 49.7 fL (36.4-46.3); White Blood Count 8.65 K/ul (4.8-10.8)
--- NOTE | 2023-03-16 07:58 | Hospitalist Progress Note ---
Date of Service March 16, 2023 Assessment & Plan (1) Septic shock: (2) Acute hypernatremia: (3) Acute renal failure (ARF): (4) Goals of care, counseling/discussion: (5) Anemia: (6) Wounds and injuries: Plan Per previous hospitalist w/ addendum Patient is an 87 yr male presents from [facility] with septic shock, renal failure. Revoked hospice for ED admission per request who was traveling from [place]. Pt was intubated. Admitting team confirmed No CPR, defibrillation, cardioversion in the event of cardiac arrest. Palliative care evaluated. He is being managed for the following: Intermittent fever Despite treating with multiple antibiotics Appreciate ID input Poor prognosis Plan to discharge to rehab facility when accepted Started on Zosyn-on 03/08/23, continue vancomycin>> transition to Vanco, cefepime Repeat blood cultures 11/19: Coagulase-negative staph not lugdunensis Patient's prefers to continue current management despite explaining very poor prognosis Repeat blood cultures11/21 growing coagulase-negative staph Persistent bacteremia despite aggressive IV antibiotics Discussed w/ Dr. Delgado today 03/15 - given worsening renal function - switched to daptomycin - dose was discussed w/ pharmacy as well Candiduria Catheter changed and repeat test came back positive for Liliana Urine culture growing Liliana albicans Started on Diflucan through the G-tube Discussed w/ ID - do not believe this needs treatment - diflucan stopped As per prior hospitalist Anemia: Hemoglobin >7, no active bleeding. PBS without Schistocytes, normal reticulocyte count, hemolysis less likely. Iron deficiency present. Poor nutrition does not help. Cont iron supplementation and proper nutrition. Will check hemoglobin if it is less than 7 will transfuse Hemoglobin dropped down to 6.6 and gave 2 units of blood transfusion Hb 6.7 (03/15) - transfused 1 unit of pRBC (w/ IV lasix w/ transfusion) As per prior hospitalist Septic Shock with staph ([employer] not lugdunensis) bacteremia: possible sources include skin vs pneumonia and UTI with indwelling Villasenor. Weaned off pressors and extubated 02/06. Pansensitive Klebsiella in sputum. Liliana in sputum likely a contaminant Urine Culture: Noncontributory (H/O chronic Villasenor, recent h/o of UTI) ECHO: EF 50 to 55%, bioprosthetic aortic valve, mild mitral regurgitation, grade 2 diastolic dysfunction, mild tricuspid regurgitation High risk for aspiration pneumonia. Known recent month long admission with urosepsis; was recently on Hospice Repeat blood cultures were negative. Initially admitted on Vanc/Zosyn 02/03 Plan will be total 6 weeks of Vancomycin with rifampin added from 02/16/23 with surveillance cultures (2 sets from the periphery) 5-7 days post completion of abx therapy. End date 04/02/2023. Switched vanco to daptomycin, as above Continue current antibiotics and will change according to the plan Discussed with the about discharging him on approval to go to the [facility]-awaiting placement Continue wound care for decubitus ulcers Continue air mattress Severe protein calorie malnutrition H/O Esophageal dysmotility Dysphagia: Speech therapy involved in his care this admission. Palliative care involved, Patient's POA now agreeing to no escalation of care (pressors, CPR, intubation). She declines COURT. However, POA would like PEG feeds. PEG placed 02/14-tolerating feeds without res idual Remains high risk for aspiration [facility] cannot accept him back with PEG in place PEG feed held due to vomiting, resume peg feed at low rate, and upto 50% of goal for now. Consider pr bowel regimen to help w/ constipation as needed, moved large bowel per RN. Keep HOB at 30 degrees/aspiration precautions. No problem with the PEG feeding-electrolytes unremarkable Continue with the PEG tube feeding Acute hypoxic respiratory failure Secondary to left lower lobe pneumonia likely due to aspiration Was weaned down to 2L NC O2, had vomiting and aspiration event 02/19, TF was held, and unasyn added 02/20. Repeat -chest x-ray showing cardiomegaly with pulmonary edema and a small pleural effusion Given Lasix as needed Wean off of supplemental oxygen as able Currently on 4 L supplemental oxygen 03/15 - tachypneic pulm congestion on CXR (pt received IVF earlier to see if it helps with his worsening renal function). IVF stopped, and free water decreased. Pt also needed blood transfusion and so IV lasix given as well. Cont. to closely monitor Acute metabolic encephalopathy/known Dementia Secondary to above, in setting of Lewy body dementia and Hypernatremia (Na was 164 on admission 02/03), sodium now normal - 144 CT head: No significant change compared to the prior study. No acute intracranial abnormality. Elev. troponin: Troponin level 400's on admission - likely type II DC, secondary to above. No further workup at this time. Acute Hypernatremia: resolved. Acute Renal Failure: present at admission which was resolved. Had another bump in Cr on 02/20, d/w nephro - no ivf/avoid nephrotoxics/hold vanc until acceptable trough level achieved. appreciate recs. Pt's doesn't want villasenor cath, c/w intermittent st cath to avoid obstruction. Nephro managing Renal function slowly worsening ATN Cr 4.6 today - nephrology following closely, stopped IVF d/t pulm. congestion. pls see nephrology note for further detail - BUN also rising and HD not advised Cautious use of IV fluids given tendency to overload easily Received IV fluids, as above Continue oral fluids via PEG tube Chronic Villasenor/urinary retention: Villasenor was replaced this admission. [facility] urology is aware of his need for follow-up. would like to consider TURP or other prostate surgery in the future For now, will cont with alpha-ban. The only one that will go through the PEG is terazosin This capsule has to be melted in warm water for 15 minutes and then given as a solution through the PEG. Villasenor were changed With culture grew Liliana albicans and started on oral Diflucan Per prior hospitalist WOUNDS: Multiple sites of ulceration with necrosis There are multiple pressure sites for skin breakdown This was a possible source for his sepsis this admission Wound care nurse consulted. 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 failure, s/p aspiration post PEG tube , poss. endocarditis Laying in bed in NAD, does not opens eyes today. Been tachypneic. Previous hospitalist discussed with patient's at bedside on multiple occasions who understands his critical condition but prefers to continue current management. I met with pt's and with Dr. Sr (from palliative med) as well to discuss goal of care. Pt's very interested in trying high dose IV vit. C therapy - discussed that this would not be advised however she would like to pursue this. Today discussed again and she is ok to hold vit. C therapy for now. Renal function has been poor and Prognosis remains poor. Review of Systems Review of Systems: All systems reviewed & are unremarkable except as noted in Subjective Physical Exam Physical Exam: General Appearance: Elderly frail, chronically Ill appearing, no apparent distress however tachypneic, on suppl. oxygen Head: normocephalic, Atraumatic Eyes: normal inspection Neck: supple Respiratory/Chest: Decreased breath sounds, + rhonchi, No accessory muscle use Cardiovascular: S1, S2, + murmur Abdomen/GI:Soft, Non tender, +Peg tube, Bowel sounds present Extremities/Musculoskeletal: normal inspection, + some upper extremity edema, pedal edema Neurologic/Psych: nonverbal, does not follow commands, Obtunded Skin: normal color, warm Results & Data Results & Data Vital Signs (Past 12 Hours) Vital Signs Temp Pulse Resp BP Pulse Ox O2 Del Method O2 Flow Rate 03/16/23 07:21 36.7 C 69 36 H 112/53 L 97 Nasal Cannula 4 03/15/23 22:17 Nasal Cannula 4 03/15/23 21:22 36.8 C 69 38 H 97/57 L 96 Nasal Cannula 4 Laboratory Results 03/16/23 03/16/23 03/16/23 Range/Units 05:26 05:26 05:26 WBC 8.65 (4.8-10.8) K/ul RBC 2.40 L (4.70-6.10) M/uL Hgb 7.2 L (14.0-18.0) g/dl Hct 22.3 L (42.0-52.0) % MCV 92.9 (80.0-100.0) fL MCH 30.0 (25.0-34.0) pg MCHC 32.3 (32.0-36.0) g/dL RDW Std Deviation 49.7 H (36.4-46.3) fL RDW Coeff of Lacey 14.7 H (11.5-14.5) % Plt Count 326 (130-400) K/uL MPV 11.2 (9.4-12.4) fL Sodium 143 (136-145) mmol/L Potassium 4.7 (3.5-5.1) mmol/L Chloride 107 (98-107) mmol/L Carbon Dioxide 25 (21-32) mmol/L Anion Gap 11 (3-11) BUN 125 H (6-23) mg/dl Creatinine 4.66 H* D (0.6-1.4) mg/dl Est Cr Clr Drug Dosing 13.3 ml/min Est GFR ( Amer) 12.1 ml/min Est GFR (Non-Af Amer) 10.5 ml/min BUN/Creatinine Ratio 26.8 H (10-20) Glucose 144 H (70-99(Fasting)) mg/dl Calcium 7.2 L (8.6-10.3) mg/dl Phosphorus 4.3 (2.5-4.9) mg/dl Magnesium 2.1 (1.7-2.4) mg/dl Random Vancomycin 17.2 (10-20) mcg/ml Blood Type Antibody Screen Crossmatch 03/15/23 Range/Units 06:01 WBC (4.8-10.8) K/ul RBC (4.70-6.10) M/uL Hgb (14.0-18.0) g/dl Hct (42.0-52.0) % MCV (80.0-100.0) fL MCH (25.0-34.0) pg MCHC (32.0-36.0) g/dL RDW Std Deviation (36.4-46.3) fL RDW Coeff of Lacey (11.5-14.5) % Plt Count (130-400) K/uL MPV (9.4-12.4) fL Sodium (136-145) mmol/L Potassium (3.5-5.1) mmol/L Chloride (98-107) mmol/L Carbon Dioxide (21-32) mmol/L Anion Gap (3-11) BUN (6-23) mg/dl Creatinine (0.6-1.4) mg/dl Est Cr Clr Drug Dosing ml/min Est GFR ( Amer) ml/min Est GFR (Non-Af Amer) ml/min BUN/Creatinine Ratio (10-20) Glucose (70-99(Fasting)) mg/dl Calcium (8.6-10.3) mg/dl Phosphorus (2.5-4.9) mg/dl Magnesium (1.7-2.4) mg/dl Random Vancomycin (10-20) mcg/ml Blood Type A Negative Antibody Screen NEGATIVE Crossmatch See Detail Medications Administered Current Inpatient Medications Albuterol (Albut/Ipratrop 3mg/0.5mg Neb 3 Ml Vial) 3 ml NEB Q4R PRN; Protocol PRN Reason: Shortness Of Breath Or Wheezing Stop: 03/22/23 02:59 Last Admin: 03/08/23 07:46 Dose: 3 ml Aspirin (Aspirin 81 Mg Chew) 81 mg PEG QAM FERNIE Stop: 03/19/23 08:59 Last Admin: 03/15/23 08:45 Dose: 81 mg Atorvastatin Calcium (Atorvastatin 20 Mg Tab) 20 mg PEG QPM FERNIE Stop: 03/18/23 20:59 Last Admin: 03/15/23 20:20 Dose: 20 mg Carbidopa/Levodopa (Carbidopa/Levodopa 25/100mg Tab) 1 tab PEG BID FERNIE Stop: 03/18/23 20:59 Last Admin: 03/15/23 20:20 Dose: 1 tab Fluconazole (Fluconazole 100 Mg Tab) 100 mg PEG QAM FERNIE; Protocol Stop: 03/16/23 08:59 Last Admin: 03/15/23 08:45 Dose: 100 mg Furosemide (Furosemide 40 Mg/4 Ml Vial) 40 mg IV ONE PRN PRN Reason: prior to blood transfusion Stop: 04/14/23 11:35 Guaifenesin (Guaifenesin Sugar Free 200 Mg/10 Ml Udc) 200 mg PO Q6H FERNIE Stop: 04/13/23 09:59 Last Admin: 03/16/23 03:40 Dose: 200 mg Heparin Sodium (Beef Lung) (Heparin 10 Unit/Ml 5 Ml Flush) 5 ml FLUSH PRN PRN PRN Reason: Flush Stop: 04/08/23 15:32 Last Admin: 03/12/23 21:14 Dose: 5 ml Ascorbic Acid 1,000 mg/ Sodium (Chloride) 102 mls @ 100 mls/hr IV Q12H FERNIE; Protocol Stop: 03/19/23 11:59 Last Infusion: 03/16/23 02:07 Dose: Infused Daptomycin 800 mg/ Syringe 16 mls @ 8 mls/min IV Q48H FERNIE; Protocol Stop: 03/30/23 23:59 Last Admin: 03/15/23 14:47 Dose: 8 mls/min Lansoprazole (Lansoprazole 30 Mg Soltab) 30 mg PEG QAM FERNIE Stop: 03/19/23 08:59 Last Admin: 02/21/23 08:47 Dose: 30 mg Lansoprazole (Lansoprazole 30 Mg Soltab) 30 mg PEG BID FERNIE Stop: 04/03/23 20:59 Last Admin: 03/15/23 20:20 Dose: Not Given Nutritional Formula (Nutren Liqd 2.0 1,000 Ml Bag) 1,000 ml PEG UD FERNIE; Protocol Stop: 03/22/23 15:44 Last Admin: 03/15/23 17:01 Dose: 1,000 ml Rifampin (Rifampin 600mg/60ml Udp) 600 mg PEG Q24H FERNIE Stop: 03/30/23 17:59 Last Admin: 03/15/23 18:00 Dose: 600 mg Sterile Water (Tube Feeding Water Flush) 150 ml PEG Q4 FERNIE Stop: 04/14/23 11:59 Last Admin: 03/16/23 03:39 Dose: 150 ml Terazosin HCl (Terazosin Hcl 1 Mg Cap) 2 mg PO HS FERNIE Stop: 03/22/23 20:59 Last Admin: 03/15/23 20:19 Dose: 2 mg
[2023-03-16] MEDS: CARBIDOPA/LEVODOPA 25/100MG TAB PEG SCH ×2 (09:14→21:18)
[2023-03-16] MEDS: LANSOPRAZOLE 30 MG SOLTAB PEG SCH ×2 (09:14→21:16)
[2023-03-16] MEDS: ASPIRIN 81 MG CHEW PEG SCH (09:15)
--- NOTE | 2023-03-16 10:53 | Nephrology Progress Note ---
Date of Service March 16, 2023 Assessment & Plan Admission and Anticipated Discharge Date Admission Date: February 03, 2023 Subjective Assessment & Plan (1) Acute renal failure (ARF): Plan: Nephrology following intermittently for multiple episodes of acute kidney injury this admission. Earlier this admission he had prerenal HERSON with peak creatinine 5.6 February 04; improved to approximately 1.2-1.3 creatinine then recurrent acute kidney injury in the setting of aspiration pneumonia diagnosis and therapy February 20 w/ creatinine going from 1 > 1.7 in 24 hrs and then plateau'd at about 2 since February 21; not oliguric; did require Villasenor replacement in this timeframe. Now having another episode of ARF from ATN in the setting of new bacteremia on Blood C/s from 03/08. He had creat of 6 on admission which recovered so there is a chance that he may recover again. As of today he does not need dialysis.Creat up a bit again. but hgb is low and he now has some Pulm edema + Aspiration pneumonitis on CXR No iv fluid. No lasix but can be given if He gets SOB. Patient getting Vit C infusion as per POA demand. However doing Dialysis if such need arise would be absolutely not be advised and would fall under the category of ethics Consult and review. After discussing with ethics committee it seems if he gets to the point of needing dialysis and if the POA says to do dialysis we will be obligated to do dialysis even though I personally would not agree with this Treatment. S--Unable to get any history. on PEG tube and Iv fluid. Physical Exam Constitutional: well developed (contracted; lies in position), + cachectic and + frail appearing; no acute distress Eyes: eyes open; minimal eomi/ does not track ENMT: Mouth: + dry oral mucous membranes and + poor dentition Respiratory: normal respiratory effort Auscultation: + diminished lung sounds and + crackles Cardiovascular: Rate/Rhythm: regular rate and regular rhythm Extremities: no edema Gastrointestinal (Abdomen): Inspection/Auscultation: normal bowel sounds and + scaphoid (PEG present) Musculoskeletal: contracted/ rigid > full assist to turn in bed Skin: several areas of breakdown Neurologic: aphasic, resting tremor; eyes open does not track or follow commands Genitourinary: villasenor w/ ample urine Results & Data Vital Signs (Past 12 Hours) Vital Signs Temp Pulse Resp BP Pulse Ox O2 Del Method O2 Flow Rate 03/16/23 07:30 Nasal Cannula 4 03/16/23 07:21 36.7 C 69 36 H 112/53 L 97 Nasal Cannula 4
[2023-03-16] MEDS: RIFAMPIN PEG SCH (17:12)
[2023-03-16] MEDS: TERAZOSIN HCL 1 MG CAP PO SCH (21:18)
[2023-03-16] MEDS: ATORVASTATIN 20 MG TAB PEG SCH (21:19)
[2023-03-17] MEDS: TUBE FEEDING WATER FLUSH PEG SCH ×5 (03:29→21:56)
[2023-03-17] MEDS: guaiFENesin SUGAR FREE 200 MG/10 ML UDC PO SCH ×4 (03:29→21:56)
[2023-03-17 07:55] LABS: BUN Creatinine Ratio 26.4 (10-20); Calcium 7.1 mg/dl (8.6-10.3); Creatinine Clr Calc Pharmacy 13.2 ml/min; Est GFR (African American) 11.9 ml/min; Est GFR (Non-African American) 10.3 ml/min; Potassium 4.7 mmol/L (3.5-5.1)
[2023-03-17] MEDS: CARBIDOPA/LEVODOPA 25/100MG TAB PEG SCH ×2 (09:16→21:57)
[2023-03-17] MEDS: ASPIRIN 81 MG CHEW PEG SCH (09:16)
[2023-03-17] MEDS: LANSOPRAZOLE 30 MG SOLTAB PEG SCH ×2 (09:17→21:56)
[2023-03-17] MEDS: DAPTOmycin 800 MG in SYRINGE 0 ML IV SCH (13:35)
--- NOTE | 2023-03-17 13:40 | Hospitalist Progress Note ---
Date of Service March 17, 2023 Assessment & Plan (1) Septic shock: (2) Acute hypernatremia: (3) Acute renal failure (ARF): (4) Goals of care, counseling/discussion: (5) Anemia: (6) Wounds and injuries: Plan Per previous hospitalist w/ addendum Patient is an 87 yr male presents from [facility] with septic shock, renal failure. Revoked hospice for ED admission per request who was traveling from [place]. Pt was intubated. Admitting team confirmed No CPR, defibrillation, cardioversion in the event of cardiac arrest. Palliative care evaluated. He is being managed for the following: Intermittent fever Despite treating with multiple antibiotics Appreciate ID input Poor prognosis Plan to discharge to rehab facility when accepted Started on Zosyn-on 03/08/23, continue vancomycin>> transition to Vanco, cefepime Repeat blood cultures 11/19: Coagulase-negative staph not lugdunensis Patient's prefers to continue current management despite explaining very poor prognosis Repeat blood cultures11/21 growing coagulase-negative staph Persistent bacteremia despite aggressive IV antibiotics Discussed w/ Dr. Delgado today 03/15 - given worsening renal function - switched to daptomycin - dose was discussed w/ pharmacy as well Candiduria Catheter changed and repeat test came back positive for Liliaan Urine culture growing Liliana albicans Started on Diflucan through the G-tube Discussed w/ ID - do not believe this needs treatment - diflucan stopped As per prior hospitalist Anemia: Hemoglobin >7, no active bleeding. PBS without Schistocytes, normal reticulocyte count, hemolysis less likely. Iron deficiency present. Poor nutrition does not help. Cont iron supplementation and proper nutrition. Will check hemoglobin if it is less than 7 will transfuse Hemoglobin dropped down to 6.6 and gave 2 units of blood transfusion Hb 6.7 (03/15) - transfused 1 unit of pRBC (w/ IV lasix w/ transfusion) As per prior hospitalist Septic Shock with staph ([employer] not lugdunensis) bacteremia: possible sources include skin vs pneumonia and UTI with indwelling Villasenor. Weaned off pressors and extubated 02/06. Pansensitive Klebsiella in sputum. Liliana in sputum likely a contaminant Urine Culture: Noncontributory (H/O chronic Villasenor, recent h/o of UTI) ECHO: EF 50 to 55%, bioprosthetic aortic valve, mild mitral regurgitation, grade 2 diastolic dysfunction, mild tricuspid regurgitation High risk for aspiration pneumonia. Known recent month long admission with urosepsis; was recently on Hospice Repeat blood cultures were negative. Initially admitted on Vanc/Zosyn 02/03 Plan will be total 6 weeks of Vancomycin with rifampin added from 02/16/23 with surveillance cultures (2 sets from the periphery) 5-7 days post completion of abx therapy. End date 04/02/2023. Switched vanco to daptomycin, as above Continue current antibiotics and will change according to the plan Discussed with the about discharging him on approval to go to the [facility]-awaiting placement Continue wound care for decubitus ulcers Continue air mattress Severe protein calorie malnutrition H/O Esophageal dysmotility Dysphagia: Speech therapy involved in his care this admission. Palliative care involved, Patient's POA now agreeing to no escalation of care (pressors, CPR, intubation). She declines COURT. However, POA would like PEG feeds. PEG placed 02/14-tolerating feeds without residual Remains high risk for aspiration [facility] cannot accept him back with PEG in place PEG feed held due to vomiting, resume peg feed at low rate, and upto 50% of goal for now. Consider pr bowel regimen to help w/ constipation as needed, moved large bowel per RN. Keep HOB at 30 degrees/aspiration precautions. No problem with the PEG feeding-electrolytes unremarkable Continue with the PEG tube feeding Acute hypoxic respiratory failure Secondary to left lower lobe pneumonia likely due to aspiration Was weaned down to 2L NC O2, had vomiting and aspiration event 02/19, TF was held, and unasyn added 02/20. Repeat -chest x-ray showing cardiomegaly with pulmonary edema and a small pleural effusion Given Lasix as needed Wean off of supplemental oxygen as able Currently on 4 L supplemental oxygen 03/15 - tachypneic pulm congestion on CXR (pt received IVF earlier to see if it helps with his worsening renal function). IVF stopped, and free water decreased. Pt also needed blood transfusion and so IV lasix given as well. Cont. to closely monitor Acute metabolic encephalopathy/known Dementia Secondary to above, in setting of Lewy body dementia and Hypernatremia (Na was 164 on admission 02/03), sodium now normal - 144 CT head: No significant change compared to the prior study. No acute intracranial abnormality. Elev. troponin: Troponin level 400's on admission - likely type II IN, secondary to above. No further workup at this time. Acute Hypernatremia: resolved. Acute Renal Failure: present at admission which was resolved. Had another bump in Cr on 02/20, d/w nephro - no ivf/avoid nephrotoxics/hold vanc until acceptable trough level achieved. appreciate recs. Pt's doesn't want villasenor cath, c/w intermittent st cath to avoid obstruction. Nephro managing Renal function slowly worsening ATN Cr 4.7 today - nephrology following closely, stopped IVF d/t pulm. congestion. pls see nephrology note for further detail - BUN also rising and HD not advised Cautious use of IV fluids given tendency to overload easily Received IV fluids, as above Continue oral fluids via PEG tube Chronic Villasenor/urinary retention: Villasenor was replaced this admission. [facility] is aware of his need for follow-up. would like to consider TURP or other prostate surgery in the future For now, will cont with alpha-ban. The only one that will go through the PEG is terazosin This capsule has to be melted in warm water for 15 minutes and then given as a solution through the PEG. Villasenor were changed With culture grew Liliana albicans and started on oral Diflucan Per prior hospitalist WOUNDS: Multiple sites of ulceration with necrosis There are multiple pressure sites for skin breakdown This was a possible source for his sepsis this admission Wound care nurse consulted. 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 failure, s/p aspiration post PEG tube , poss. endocarditis Laying in bed in NAD, does not opens eyes today. Been tachypneic. Discussed with patient's at bedside on multiple occasions who understands his critical condition but prefers to continue current management. Renal function has been poor and Prognosis remains poor. Nephrology following closely as well. Palliative medicine involved. Review of Systems Review of Systems: All systems reviewed & are unremarkable except as noted in Subjective Physical Exam Physical Exam: General Appearance: Elderly frail, chronically Ill appearing, no apparent distress however tachypneic, on suppl. oxygen Head: normocephalic, Atraumatic Eyes: normal inspection Neck: supple Respiratory/Chest: Decreased breath sounds, + rhonchi, No accessory muscle use Cardiovascular: S1, S2, + murmur Abdomen/GI:Soft, Non tender, +Peg tube, Bowel sounds present Extremities/Musculoskeletal: normal inspection, + some upper extremity edema b/l, pedal edema Neurologic/Psych: nonverbal, does not follow commands, Obtunded Skin: normal color, warm Results & Data Results & Data Vital Signs (Past 12 Hours) Vital Signs Temp Pulse Resp BP Pulse Ox O2 Del Method O2 Flow Rate 03/17/23 08:00 Nasal Cannula 4 03/17/23 07:37 36.8 C 72 36 H 122/68 94 Nasal Cannula 4 Laboratory Results 03/17/23 Range/Units 06:56 Sodium 143 (136-145) mmol/L Potassium 4.7 (3.5-5.1) mmol/L Chloride 107 (98-107) mmol/L Carbon Dioxide 27 (21-32) mmol/L Anion Gap 9 (3-11) BUN 125 H (6-23) mg/dl Creatinine 4.73 H* (0.6-1.4) mg/dl Est Cr Clr Drug Dosing 13.2 ml/min Est GFR ( Amer) 11.9 ml/min Est GFR (Non-Af Amer) 10.3 ml/min BUN/Creatinine Ratio 26.4 H (10-20) Glucose 146 H (70-99(Fasting)) mg/dl Calcium 7.1 L (8.6-10.3) mg/dl Medications Administered Current Inpatient Medications Albuterol (Albut/Ipratrop 3mg/0.5mg Neb 3 Ml Vial) 3 ml NEB Q4R PRN; Protocol PRN Reason: Shortness Of Breath Or Wheezing Stop: 03/22/23 02:59 Last Admin: 03/08/23 07:46 Dose: 3 ml Aspirin (Aspirin 81 Mg Chew) 81 mg PEG QAM FERNIE Stop: 03/19/23 08:59 Last Admin: 03/17/23 09:16 Dose: 81 mg Atorvastatin Calcium (Atorvastatin 20 Mg Tab) 20 mg PEG QPM FERNIE Stop: 03/18/23 20:59 Last Admin: 03/16/23 21:19 Dose: 20 mg Carbidopa/Levodopa (Carbidopa/Levodopa 25/100mg Tab) 1 tab PEG BID FERNIE Stop: 03/18/23 20:59 Last Admin: 03/17/23 09:16 Dose: 1 tab Furosemide (Furosemide 40 Mg/4 Ml Vial) 40 mg IV ONE PRN PRN Reason: prior to blood transfusion Stop: 04/14/23 11:35 Guaifenesin (Guaifenesin Sugar Free 200 Mg/10 Ml Udc) 200 mg PO Q6H FERNIE Stop: 04/13/23 09:59 Last Admin: 03/17/23 09:15 Dose: 200 mg Heparin Sodium (Beef Lung) (Heparin 10 Unit/Ml 5 Ml Flush) 5 ml FLUSH PRN PRN PRN Reason: Flush Stop: 04/08/23 15:32 Last Admin: 03/12/23 21:14 Dose: 5 ml Ascorbic Acid 1,000 mg/ Sodium (Chloride) 102 mls @ 100 mls/hr IV Q12H FERNIE; Protocol Stop: 03/19/23 11:59 Last Infusion: 03/16/23 14:43 Dose: Infused Daptomycin 800 mg/ Syringe 16 mls @ 8 mls/min IV Q48H FERNIE; Protocol Stop: 03/30/23 23:59 Last Admin: 03/17/23 13:35 Dose: 8 mls/min Lansoprazole (Lansoprazole 30 Mg Soltab) 30 mg PEG QAM FERNIE Stop: 03/19/23 08:59 Last Admin: 02/21/23 08:47 Dose: 30 mg Lansoprazole (Lansoprazole 30 Mg Soltab) 30 mg PEG BID FERNIE Stop: 04/03/23 20:59 Last Admin: 03/17/23 09:17 Dose: 30 mg Nutritional Formula (Nutren Liqd 2.0 1,000 Ml Bag) 1,000 ml PEG UD FERNIE; Protocol Stop: 03/22/23 15:44 Last Admin: 03/15/23 17:01 Dose: 1,000 ml Rifampin (Rifampin 600mg/60ml Udp) 600 mg PEG Q24H FERNIE Stop: 03/30/23 17:59 Last Admin: 03/16/23 17:12 Dose: 600 mg Sterile Water (Tube Feeding Water Flush) 150 ml PEG Q4 FERNIE Stop: 04/14/23 11:59 Last Admin: 03/17/23 12:00 Dose: 150 ml Terazosin HCl (Terazosin Hcl 1 Mg Cap) 2 mg PO HS FERNIE Stop: 03/22/23 20:59 Last Admin: 03/16/23 21:18 Dose: 2 mg
[2023-03-17] MEDS: ALBUT/IPRATROP 3MG/0.5MG NEB 3 ML VIAL NEB PRN (14:00)
--- NOTE | 2023-03-17 14:51 | Nephrology Progress Note ---
Date of Service March 17, 2023 Assessment & Plan Admission and Anticipated Discharge Date Admission Date: February 03, 2023 Subjective Assessment & Plan (1) Acute renal failure (ARF): Plan: Nephrology following intermittently for multiple episodes of acute kidney injury this admission. Earlier this admission he had prerenal HERSON with peak creatinine 5.6 February 04; improved to approximately 1.2-1.3 creatinine then recurrent acute kidney injury in the setting of aspiration pneumonia diagnosis and therapy February 20 w/ creatinine going from 1 > 1.7 in 24 hrs and then plateau'd at about 2 since February 21; not oliguric; did require Ferris replacement in this timeframe. Now having another episode of ARF from ATN in the setting of new bacteremia on Blood C/s from 03/08. He had creat of 6 on admission which recovered so there is a chance that he may recover again. As of today he does not need dialysis.Creat up a bit again from yesterday and up to 4.7 now Hgb is low and he now has some Pulm edema + Aspiration pneumonitis on CXR No iv fluid. No lasix but can be given if He gets SOB. Patient getting Vit C infusion as per POA demand. Doing Dialysis if such need arise would be absolutely not be advised and would fall under the category of ethics Consult and review. After discussing with ethics committee it seems if he gets to the point of needing dialysis and if the POA says to do dialysis we will be obligated to do dialysis even though I personally would not agree with this Treatment. S--Unable to get any history. on PEG tube and Iv fluid. patient seen earlier today. Results & Data Vital Signs (Past 12 Hours) Vital Signs Temp Pulse Resp BP Pulse Ox O2 Del Method O2 Flow Rate 03/17/23 14:00 71 25 H 95 Nasal Cannula 5 03/17/23 08:00 Nasal Cannula 4 03/17/23 07:37 36.8 C 72 36 H 122/68 94 Nasal Cannula 4
[2023-03-17] MEDS: RIFAMPIN PEG SCH (18:44)
[2023-03-17] MEDS: TERAZOSIN HCL 1 MG CAP PO SCH (21:57)
[2023-03-17] MEDS: ATORVASTATIN 20 MG TAB PEG SCH (21:57)
[2023-03-17] MEDS: NUTREN LIQD 2.0 1,000 ML BAG PEG SCH (22:40)
[2023-03-18] MEDS: TUBE FEEDING WATER FLUSH PEG SCH ×6 (00:01→20:00)
[2023-03-18] MEDS: guaiFENesin SUGAR FREE 200 MG/10 ML UDC PO SCH ×4 (05:24→21:32)
[2023-03-18 06:54] LABS: Hematocrit (blood only) 22.3 % (42.0-52.0); Hemoglobin 7.3 g/dl (14.0-18.0)
[2023-03-18 07:27] LABS: Calcium 7.2 mg/dl (8.6-10.3); Creatinine Clr Calc Pharmacy 12.7 ml/min; Est GFR (African American) 11.5 ml/min; Est GFR (Non-African American) 9.9 ml/min; Magnesium 2.2 mg/dl (1.7-2.4); Phosphorus 4.2 mg/dl (2.5-4.9)
[2023-03-18] MEDS: CARBIDOPA/LEVODOPA 25/100MG TAB PEG SCH (08:42)
[2023-03-18] MEDS: LANSOPRAZOLE 30 MG SOLTAB PEG SCH ×2 (08:42→21:31)
[2023-03-18] MEDS: ASPIRIN 81 MG CHEW PEG SCH (08:42)
--- NOTE | 2023-03-18 12:20 | Hospitalist Progress Note ---
Date of Service March 18, 2023 Assessment & Plan (1) Septic shock: (2) Acute hypernatremia: (3) Acute renal failure (ARF): (4) Goals of care, counseling/discussion: (5) Anemia: (6) Wounds and injuries: Plan Per previous hospitalist w/ addendum Patient is an 87 yr male presents from [facility] with septic shock, renal failure. Revoked hospice for ED admission per request who was traveling from [facility]. Pt was intubated. Admitting team confirmed No CPR, defibrillation, cardioversion in the event of cardiac arrest. Palliative care evaluated. He is being managed for the following: Intermittent fever Despite treating with multiple antibiotics Appreciate ID input Poor prognosis Plan to discharge to rehab facility when accepted Started on Zosyn-on 03/08/23, continue vancomycin>> transition to Vanco, cefepime Repeat blood cultures 11/19: Coagulase-negative staph not lugdunensis Patient's prefers to continue current management despite explaining very poor prognosis Repeat blood cultures11/21 growing coagulase-negative staph Persistent bacteremia despite aggressive IV antibiotics Discussed w/ Dr. Delgado (ID) again on 03/15 - given worsening renal function - switched to daptomycin - dose was discussed w/ pharmacy as well Candiduria Catheter changed and repeat test came back positive for Liliana Urine culture growing Liliana albicans Started on Diflucan through the G-tube Discussed w/ ID - do not believe this needs treatment - diflucan stopped As per prior hospitalist Septic Shock with staph ([employer] not lugdunensis) bacteremia: possible sources include skin vs pneumonia and UTI with indwelling Ferris. Weaned off pressors and extubated 02/06. Pansensitive Klebsiella in sputum. Liliana in sputum likely a contaminant Urine Culture: Noncontributory (H/O chronic Ferris, recent h/o of UTI) ECHO: EF 50 to 55%, bioprosthetic aortic valve, mild mitral regurgitation, grade 2 diastolic dysfunction, mild tricuspid regurgitation High risk for aspiration pneumonia. Known recent month long admission with urosepsis; was recently on Hospice Repeat blood cultures were negative. Initially admitted on Vanc/Zosyn 02/03 Plan will be total 6 weeks of Vancomycin with rifampin added from 02/16/23 with surveillance cultures (2 sets from the periphery) 5-7 days post completion of abx therapy. End date 04/02/2023. Switched vanco to daptomycin, as above Continue current antibiotics and will change according to the plan Discussed with the about discharging him on approval to go to the [facility]-awaiting placement Continue wound care for decubitus ulcers Continue air mattress Acute Renal Failure: present at admission which was resolved. Had another bump in Cr on 02/20, d/w nephro - no ivf/avoid nephrotoxics/hold vanc until acceptable trough level achieved. appreciate recs. Nephrology managing Renal function slowly worsening ATN Cr 4.9 today - nephrology following closely, stopped IVF d/t pulm. congestion. pls see nephrology note for further detail - BUN also rising and HD not advised - discussed w/ nephrology and on multiple occasions Cautious use of IV fluids given tendency to overload easily Received IV fluids, as above Continue fluids via PEG tube As per prior hospitalist Anemia: Hemoglobin >7, no active bleeding. PBS without Schistocytes, normal reticulocyte count, hemolysis less likely. Iron deficiency present. Poor nutrition does not help. Cont iron supplementation and proper nutrition. Will check hemoglobin if it is less than 7 will transfuse Hemoglobin dropped down to 6.6 and gave 2 units of blood transfusion Hb 6.7 (03/15) - transfused 1 unit of pRBC (w/ IV lasix w/ transfusion) Monitor H&H Severe protein calorie malnutrition H/O Esophageal dysmotility Dysphagia: Speech therapy involved in his care this admission. Palliative care involved, Patient's POA now agreeing to no escalation of care (pressors, CPR, intubation). She declines COURT. However, POA would like PEG feeds. PEG placed 02/14-tolerating feeds without residual Remains high risk for aspiration [facility] cannot accept him back with PEG in place PEG feed held due to vomiting, resume peg feed at low rate, and upto 50% of goal for now. Consider pr bowel regimen to help w/ constipation as needed, moved large bowel per RN. Keep HOB at 30 degrees/aspiration precautions. No problem with the PEG feeding-electrolytes unremarkable Continue with the PEG tube feeding Acute hypoxic respiratory failure Secondary to left lower lobe pneumonia likely due to aspiration Was weaned down to 2L NC O2, had vomiting and aspiration event 02/19, TF was held, and unasyn added 02/20. Repeat -chest x-ray showing cardiomegaly with pulmonary edema and a small pleural effusion Given Lasix as needed Wean off of supplemental oxygen as able Currently on 4 L supplemental oxygen 03/15 - tachypneic pulm congestion on CXR (pt received IVF earlier to see if it helps with his worsening renal function). IVF stopped, and free water decreased. Pt also needed blood transfusion and so IV lasix given as well. Cont. to closely monitor 03/18 pt continues to be tachypneic, oxygen requirement unchanged - 4L Acute metabolic encephalopathy/known Dementia Secondary to above, in setting of Lewy body dementia and Hypernatremia (Na was 164 on admission 02/03), sodium now normal - 144 CT head: No significant change compared to the prior study. No acute intracranial abnormality. Elev. troponin: Troponin level 400's on admission - likely type II DE, secondary to above. No further workup at this time. Acute Hypernatremia: resolved. Chronic Ferris/urinary retention: Ferris was replaced this admission. [facility] urology is aware of his need for follow-up. would like to consider TURP or other prostate surgery in the future For now, will cont with alpha-ban. The only one that will go through the PEG is terazosin This capsule has to be melted in warm water for 15 minutes and then given as a solution through the PEG. Ferris were changed With culture grew Liliana albicans and started on oral Diflucan Per prior hospitalist WOUNDS: Multiple sites of ulceration with necrosis There are multiple pressure sites for skin breakdown This was a possible source for his sepsis this admission Wound care nurse consulted. 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 failure, s/p aspiration post PEG tube , poss. endocarditis Laying in bed in NAD, does not opens eyes today for me. Been tachypneic. Discussed with patient's at bedside on multiple occasions who understands his critical condition but prefers to continue current management. Renal function has been poor and Prognosis remains poor. Nephrology following closely as well. HD not advised - this was again discussed w/ nephrology today and previously with pt's . Palliative medicine involved. Review of Systems Review of Systems: Unobtainable due to cognitive status Physical Exam Physical Exam: General Appearance: Elderly frail, chronically Ill appearing, no apparent distress however tachypneic, on suppl. oxygen Head: normocephalic, Atraumatic Eyes: normal inspection Neck: supple Respiratory/Chest: Decreased breath sounds, + rhonchi, No accessory muscle use Cardiovascular: S1, S2, + murmur Abdomen/GI:Soft, Non tender, +Peg tube, Bowel sounds present Extremities/Musculoskeletal: normal inspection, + some upper extremity edema b/l, pedal edema Neurologic/Psych: nonverbal, does not follow commands, Obtunded Skin: normal color, warm Results & Data Results & Data Vital Signs (Past 12 Hours) Vital Signs Temp Pulse Resp BP BP Pulse Ox O2 Del Method 03/18/23 11:39 36.9 C 77 36 H 94 Oxymask 03/18/23 10:40 37.6 C H 77 38 H 127/54 L 91 Oxymask 03/18/23 07:39 37.4 C 72 22 127/63 95 Nasal Cannula O2 Flow Rate 03/18/23 11:39 4 03/18/23 10:40 4 03/18/23 07:39 4 Laboratory Results 03/18/23 03/18/23 03/16/23 Range/Units 06:37 06:37 05:26 Hgb 7.3 L (14.0-18.0) g/dl Hct 22.3 L (42.0-52.0) % Sodium 144 143 (136-145) mmol/L Potassium 5.0 4.7 (3.5-5.1) mmol/L Chloride 108 H 107 (98-107) mmol/L Carbon Dioxide 25 25 (21-32) mmol/L Anion Gap 11 11 (3-11) BUN 127 H 125 H (6-23) mg/dl Creatinine 4.88 H* 4.66 H* D (0.6-1.4) mg/dl Est Cr Clr Drug Dosing 12.7 13.3 ml/min Est GFR ( Amer) 11.5 12.1 ml/min Est GFR (Non-Af Amer) 9.9 10.5 ml/min BUN/Creatinine Ratio 26.0 H 26.8 H (10-20) Glucose 142 H 144 H (70-99(Fasting)) mg/dl Calcium 7.2 L 7.2 L (8.6-10.3) mg/dl Phosphorus 4.2 4.3 (2.5-4.9) mg/dl Magnesium 2.2 2.1 (1.7-2.4) mg/dl Medications Administered Current Inpatient Medications Albuterol (Albut/Ipratrop 3mg/0.5mg Neb 3 Ml Vial) 3 ml NEB Q4R PRN; Protocol PRN Reason: Shortness Of Breath Or Wheezing Stop: 03/22/23 02:59 Last Admin: 03/17/23 14:00 Dose: 3 ml Aspirin (Aspirin 81 Mg Chew) 81 mg PEG QAM [facility] Stop: 03/19/23 08:59 Last Admin: 03/18/23 08:42 Dose: 81 mg Atorvastatin Calcium (Atorvastatin 20 Mg Tab) 20 mg PEG QPM [facility] Stop: 03/18/23 20:59 Last Admin: 03/17/23 21:57 Dose: 20 mg Carbidopa/Levodopa (Carbidopa/Levodopa 25/100mg Tab) 1 tab PEG BID [facility] Stop: 03/18/23 20:59 Last Admin: 03/18/23 08:42 Dose: 1 tab Furosemide (Furosemide 40 Mg/4 Ml Vial) 40 mg IV ONE PRN PRN Reason: prior to blood transfusion Stop: 04/14/23 11:35 Guaifenesin (Guaifenesin Sugar Free 200 Mg/10 Ml Udc) 200 mg PO Q6H [facility] Stop: 04/13/23 09:59 Last Admin: 03/18/23 10:06 Dose: 200 mg Heparin Sodium (Beef Lung) (Heparin 10 Unit/Ml 5 Ml Flush) 5 ml FLUSH PRN PRN PRN Reason: Flush Stop: 04/08/23 15:32 Last Admin: 03/12/23 21:14 Dose: 5 ml Ascorbic Acid 1,000 mg/ Sodium (Chloride) 102 mls @ 100 mls/hr IV Q12H [facility]; Protocol Stop: 03/19/23 11:59 Last Infusion: 03/16/23 14:43 Dose: Infused Daptomycin 800 mg/ Syringe 16 mls @ 8 mls/min IV Q48H [facility]ERN[facility]; Protocol Stop: 03/30/23 23:59 Last Admin: 03/17/23 13:35 Dose: 8 mls/min Lansoprazole (Lansoprazole 30 Mg Soltab) 30 mg PEG QAM [facility] Stop: 03/19/23 08:59 Last Admin: 02/21/23 08:47 Dose: 30 mg Lansoprazole (Lansoprazole 30 Mg Soltab) 30 mg PEG BID [facility] Stop: 04/03/23 20:59 Last Admin: 03/18/23 08:42 Dose: 30 mg Nutritional Formula (Nutren Liqd 2.0 1,000 Ml Bag) 1,000 ml PEG UD [facility]ERNIE; Protocol Stop: 03/22/23 15:44 Last Admin: 03/17/23 22:40 Dose: 1,000 ml Rifampin (Rifampin 600mg/60ml Udp) 600 mg PEG Q24H [facility] Stop: 03/30/23 17:59 Last Admin: 03/17/23 18:44 Dose: 600 mg Sterile Water (Tube Feeding Water Flush) 150 ml PEG Q4 [facility] Stop: 04/14/23 11:59 Last Admin: 03/18/23 08:42 Dose: 150 ml Terazosin HCl (Terazosin Hcl 1 Mg Cap) 2 mg PO HS [facility] Stop: 03/22/23 20:59 Last Admin: 03/17/23 21:57 Dose: 2 mg
--- NOTE | 2023-03-18 16:13 | Nephrology Progress Note ---
Date of Service March 18, 2023 Assessment & Plan (1) Acute renal failure (ARF): Plan: Nephrology following intermittently for multiple episodes of acute kidney injury this admission. Earlier this admission he had prerenal HERSON with peak creatinine 5.6 February 04; improved to approximately 1.2-1.3 creatinine then recurrent acute kidney injury in the setting of aspiration pneumonia diagnosis and therapy February 20 w/ creatinine going from 1 > 1.7 in 24 hrs and then plateau'd at about 2 since February 21; not oliguric; did require Ferris replacement in this timeframe. Now having another episode of ARF suspect from ischemic ATN related to anemia and to hypotension 03/14 and 03/15 He had creat of 6 on admission which recovered so there is a chance that he may recover again. Not oliguric As of today he does not need dialysis.Creat up a bit again from yesterday and up to 4.9 now Hgb is low and he now has some Pulm edema + Aspiration pneumonitis on CXR No iv fluid. No lasix for now but can be given if He gets SOB/worse hypoxia exceptionally poor dialysis candidate should the need arise > risk of recurrent bacteremia, bleeding, challenges maintaining dialysis access/ patient position for treatment. pt was not there when I evaluated him today. Per infectious diseases recommendations, he is on 6 weeks of empiric vancomycin with rifampin > daptomycin through April 02; had planned also after this to follow indefinitely with antibiotic suppression doxycycline 100 mg twice daily due to concern for possible CIED infection or endocarditis -avoid further IV contrast for now unless life/limb saving -would not give lasix at this time unless respiratory status worsening > if needed would give 40 mg IV -would not give IV fluids at this time -continue as tolerated tube feeds, free water flushes -avoid NSAID >continue to discuss goals of care Admission and Anticipated Discharge Date Admission Date: February 03, 2023 Subjective creatinine slowly worsening; BUN slowly uptrending; hgb remains lowbut steady since 03/16 Review of Systems Review of Systems: Unobtainable due to cognitive status Physical Exam Constitutional: well developed, + cachectic and + frail appearing; no acute distress ENMT: Mouth: + dry oral mucous membranes and + poor dentition Respiratory: normal respiratory effort Auscultation: + diminished lung sounds Cardiovascular: Rate/Rhythm: regular rate and regular rhythm Extremities: no edema Gastrointestinal (Abdomen): Inspection/Auscultation: normal bowel sounds and + scaphoid (PEG present) Results & Data Vital Signs (Past 12 Hours) Vital Signs Temp Pulse Resp BP BP Pulse Ox O2 Del Method 03/18/23 14:51 36.5 C 68 22 128/74 95 Nasal Cannula 03/18/23 13:00 36.9 C 71 26 H 137/76 96 Nasal Cannula 03/18/23 10:00 Nasal Cannula 03/18/23 11:39 36.9 C 77 36 H 94 Oxymask 03/18/23 10:40 37.6 C H 77 38 H 127/54 L 91 Oxymask 03/18/23 07:39 37.4 C 72 22 127/63 95 Nasal Cannula O2 Flow Rate 03/18/23 14:51 4 03/18/23 13:00 4 03/18/23 10:00 4 03/18/23 11:39 4 03/18/23 10:40 4 03/18/23 07:39 4 Laboratory Results 03/18/23 06:37 03/18/23 06:37
[2023-03-18] MEDS: RIFAMPIN PEG SCH (17:41)
[2023-03-18] MEDS: TERAZOSIN HCL 1 MG CAP PO SCH (21:31)
[2023-03-19] MEDS: TUBE FEEDING WATER FLUSH PEG SCH ×6 (00:42→20:05)
[2023-03-19] MEDS: guaiFENesin SUGAR FREE 200 MG/10 ML UDC PO SCH ×4 (04:23→22:06)
--- NOTE | 2023-03-19 07:37 | Hospitalist Progress Note ---
Date of Service March 19, 2023 Assessment & Plan (1) Septic shock: (2) Acute hypernatremia: (3) Acute renal failure (ARF): (4) Goals of care, counseling/discussion: (5) Anemia: (6) Wounds and injuries: Plan Per previous hospitalist w/ addendum Patient is an 87 yr male presents from [facility] with septic shock, renal failure. Revoked hospice for ED admission per request who was traveling from [facility]. Pt was intubated. Admitting team confirmed No CPR, defibrillation, cardioversion in the event of cardiac arrest. Palliative care evaluated. He is being managed for the following: Intermittent fever Despite treating with multiple antibiotics Appreciate ID input Poor prognosis Plan to discharge to rehab facility when accepted Started on Zosyn-on 03/08/23, continue vancomycin>> transition to Vanco, cefepime Repeat blood cultures 11/19: Coagulase-negative staph not lugdunensis Patient's prefers to continue current management despite explaining very poor prognosis Repeat blood cultures11/21 growing coagulase-negative staph Persistent bacteremia despite aggressive IV antibiotics Discussed w/ Dr. 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 Weaned off pressors and extubated 02/06. Pansensitive Klebsiella in sputum. Liliana in sputum likely a contaminant Urine Culture: Noncontributory (H/O chronic Ferris, recent h/o of UTI) ECHO: EF 50 to 55%, bioprosthetic aortic valve, mild mitral regurgitation, grade 2 diastolic dysfunction, mild tricuspid regurgitation High risk for aspiration pneumonia. Known recent month long admission with urosepsis; was recently on Hospice Repeat blood cultures were negative. Initially admitted on Vanc/Zosyn 02/03 Plan will be total 6 weeks of Vancomycin with rifampin added from 02/16/23 with surveillance cultures (2 sets from the periphery) 5-7 days post completion of abx therapy. End date 04/02/2023. Switched vanco to daptomycin, as above Continue current antibiotics and will change according to the plan Discussed with the about discharging him on approval to go to the [facility]-awaiting placement Continue wound care for decubitus ulcers Continue air mattress Acute Renal Failure: present at admission which was resolved. Had another bump in Cr on 02/20, d/w nephro - no ivf/avoid nephrotoxics/hold vanc until acceptable trough level achieved. appreciate recs. Nephrology managing Renal function slowly worsening ATN Cr 4.9 today - nephrology following closely, stopped IVF d/t pulm. congestion. pls see nephrology note for further detail - BUN also rising and HD not advised - discussed w/ nephrology and on multiple occasions Cautious use of IV fluids given tendency to overload easily Received IV fluids, as above Continue fluids via PEG tube As per prior hospitalist Anemia: Hemoglobin >7, no active bleeding. PBS without Schistocytes, normal reticulocyte count, hemolysis less likely. Iron deficiency present. Poor nutrition does not help. Cont iron supplementation and proper nutrition. Will check hemoglobin if it is less than 7 will transfuse Hemoglobin dropped down to 6.6 and gave 2 units of blood transfusion Hb 6.7 (03/15) - transfused 1 unit of pRBC (w/ IV lasix w/ transfusion) Monitor H&H Severe protein calorie malnutrition H/O Esophageal dysmotility Dysphagia: Speech therapy involved in his care this admission. Palliative care involved, Patient's POA now agreeing to no escalation of care (pressors, CPR, intubation). She declines COURT. However, POA would like PEG feeds. PEG placed 02/14-tolerating feeds without residual Remains high risk for aspiration [facility] cannot accept him back with PEG in place PEG feed held due to vomiting, resume peg feed at low rate, and upto 50% of goal for now. Consider pr bowel regimen to help w/ constipation as needed, moved large bowel per RN. Keep HOB at 30 degrees/aspiration precautions. No problem with the PEG feeding-electrolytes unremarkable Continue with the PEG tube feeding Acute hypoxic respiratory failure Secondary to left lower lobe pneumonia likely due to aspiration Was weaned down to 2L NC O2, had vomiting and aspiration event 02/19, TF was held, and unasyn added 02/20. Repeat -chest x-ray showing cardiomegaly with pulmonary edema and a small pleural effusion Given Lasix as needed Wean off of supplemental oxygen as able Currently on 4 L supplemental oxygen 03/15 - tachypneic pulm congestion on CXR (pt received IVF earlier to see if it helps with his worsening renal function). IVF stopped, and free water decreased. Pt also needed blood transfusion and so IV lasix given as well. Cont. to closely monitor 03/19 pt continues to be tachypneic, oxygen requirement unchanged - 4L Acute metabolic encephalopathy/known Dementia Secondary to above, in setting of Lewy body dementia and Hypernatremia (Na was 164 on admission 02/03), sodium now normal - 144 CT head: No significant change compared to the prior study. No acute intracranial abnormality. Elev. troponin: Troponin level 400's on admission - likely type II CA, secondary to above. No further workup at this time. Acute Hypernatremia: resolved. Chronic Ferris/urinary retention: Ferris was replaced this admission. [facility] urology is aware of his need for follow-up. would like to consider TURP or other prostate surgery in the future For now, will cont with alpha-ban. The only one that will go through the PEG is terazosin This capsule has to be melted in warm water for 15 minutes and then given as a solution through the PEG. Ferris changed With culture grew Liliana albicans and started on oral Diflucan (now stopped) Per prior hospitalist WOUNDS: Multiple sites of ulceration with necrosis There are multiple pressure sites for skin breakdown This was a possible source for his sepsis this admission Wound care nurse consulted. 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 failure, s/p aspiration post PEG tube , poss. endocarditis Laying in bed in NAD, barely opens eyes to voice and touch. Been tachypneic. Discussed with patient's at bedside on multiple occasions who understands his critical condition but prefers to continue current management. Renal function has been poor and Prognosis remains poor. Nephrology following closely as well. HD not advised - this was again discussed w/ nephrology yesterday and previously with pt's . Palliative medicine involved. Review of Systems Review of Systems: All systems reviewed & are unremarkable except as noted in Subjective Physical Exam Physical Exam: General Appearance: Elderly frail, chronically Ill appearing, no apparent distress however tachypneic, on suppl. oxygen Head: normocephalic, Atraumatic Eyes: normal inspection Neck: supple Respiratory/Chest: Decreased breath sounds, + rhonchi, No accessory muscle use Cardiovascular: S1, S2, + murmur Abdomen/GI:Soft, Non tender, +Peg tube, Bowel sounds present Extremities/Musculoskeletal: normal inspection, + some upper extremity edema b/l, pedal edema Neurologic/Psych: nonverbal, does not follow commands, Obtunded Skin: normal color, warm Results & Data Results & Data Vital Signs (Past 12 Hours) Vital Signs Temp Pulse Resp BP Pulse Ox O2 Del Method O2 Flow Rate 03/18/23 20:00 Nasal Cannula 4 03/18/23 20:55 37.0 C 71 18 122/70 96 Nasal Cannula 4.0 Laboratory Results 03/19/23 03/16/23 Range/Units 06:47 05:26 Sodium 144 143 (136-145) mmol/L Potassium 5.0 4.7 (3.5-5.1) mmol/L Chloride 107 107 (98-107) mmol/L Carbon Dioxide 27 25 (21-32) mmol/L Anion Gap 10 11 (3-11) BUN 134 H 125 H (6-23) mg/dl Creatinine 5.09 H* 4.66 H* D (0.6-1.4) mg/dl Est Cr Clr Drug Dosing 12.2 13.3 ml/min Est GFR ( Amer) 10.9 12.1 ml/min Est GFR (Non-Af Amer) 9.4 10.5 ml/min BUN/Creatinine Ratio 26.3 H 26.8 H (10-20) Glucose 143 H 144 H (70-99(Fasting)) mg/dl Calcium 7.2 L 7.2 L (8.6-10.3) mg/dl Phosphorus 4.3 (2.5-4.9) mg/dl Magnesium 2.1 (1.7-2.4) mg/dl Medications Administered Current Inpatient Medications Albuterol (Albut/Ipratrop 3mg/0.5mg Neb 3 Ml Vial) 3 ml NEB Q4R PRN; Protocol PRN Reason: Shortness Of Breath Or Wheezing Stop: 03/22/23 02:59 Last Admin: 03/17/23 14:00 Dose: 3 ml Aspirin (Aspirin 81 Mg Chew) 81 mg PEG QAM FERNIE Stop: 03/19/23 08:59 Last Admin: 03/18/23 08:42 Dose: 81 mg Furosemide (Furosemide 40 Mg/4 Ml Vial) 40 mg IV ONE PRN PRN Reason: prior to blood transfusion Stop: 04/14/23 11:35 Guaifenesin (Guaifenesin Sugar Free 200 Mg/10 Ml Udc) 200 mg PO Q6H FERNIE Stop: 04/13/23 09:59 Last Admin: 03/19/23 04:23 Dose: 200 mg Heparin Sodium (Beef Lung) (Heparin 10 Unit/Ml 5 Ml Flush) 5 ml FLUSH PRN PRN PRN Reason: Flush Stop: 04/08/23 15:32 Last Admin: 03/12/23 21:14 Dose: 5 ml Ascorbic Acid 1,000 mg/ Sodium (Chloride) 102 mls @ 100 mls/hr IV Q12H FERNIE; Protocol Stop: 03/19/23 11:59 Last Infusion: 03/16/23 14:43 Dose: Infused Daptomycin 800 mg/ Syringe 16 mls @ 8 mls/min IV Q48H FERNIE; Protocol Stop: 03/30/23 23:59 Last Admin: 03/17/23 13:35 Dose: 8 mls/min Lansoprazole (Lansoprazole 30 Mg Soltab) 30 mg PEG QAM FERNIE Stop: 03/19/23 08:59 Last Admin: 02/21/23 08:47 Dose: 30 mg Lansoprazole (Lansoprazole 30 Mg Soltab) 30 mg PEG BID FERNIE Stop: 04/03/23 20:59 Last Admin: 03/18/23 21:31 Dose: 30 mg Nutritional Formula (Nutren Liqd 2.0 1,000 Ml Bag) 1,000 ml PEG UD [facility]; Protocol Stop: 03/22/23 15:44 Last Admin: 03/17/23 22:40 Dose: 1,000 ml Rifampin (Rifampin 600mg/60ml Udp) 600 mg PEG Q24H FERNIE Stop: 03/30/23 17:59 Last Admin: 03/18/23 17:41 Dose: 600 mg Sterile Water (Tube Feeding Water Flush) 150 ml PEG Q4 FERNIE Stop: 04/14/23 11:59 Last Admin: 03/19/23 04:22 Dose: 150 ml Terazosin HCl (Terazosin Hcl 1 Mg Cap) 2 mg PO HS FERNIE Stop: 03/22/23 20:59 Last Admin: 03/18/23 21:31 Dose: 2 mg
[2023-03-19 08:21] LABS: Calcium 7.2 mg/dl (8.6-10.3); Creatinine Clr Calc Pharmacy 12.2 ml/min; Est GFR (African American) 10.9 ml/min; Est GFR (Non-African American) 9.4 ml/min
[2023-03-19 08:34] LABS: BUN Creatinine Ratio 26.3 (10-20)
[2023-03-19] MEDS: LANSOPRAZOLE 30 MG SOLTAB PEG SCH ×2 (09:04→22:05)
--- NOTE | 2023-03-19 09:27 | Nephrology Progress Note ---
Date of Service March 19, 2023 Assessment & Plan (1) Acute renal failure (ARF): Plan: Nephrology following for multiple episodes of acute kidney injury this admission. Earlier this admission he had prerenal HERSON with peak creatinine 5.6 February 04; improved to approximately 1.2-1.3 creatinine then recurrent acute kidney injury in the setting of aspiration pneumonia diagnosis and therapy February 20 w/ creatinine going from 1 > 1.7 in 24 hrs and then plateau'd at about 2 since February 21; not oliguric; did require Ferris replacement in this timeframe. Now having another episode of ARF suspect from ischemic ATN related to anemia and to hypotension 03/14 and 03/15 He had creat of 6 on admission which recovered so there is a chance that he may recover again. Not oliguric As of today he does not need dialysis.Creat up a bit again from yesterday and up to 5.1 now Hgb is low and he now has some Pulm edema + Aspiration pneumonitis on CXR No iv fluid. No lasix for now but can be given if He gets SOB/worse hypoxia exceptionally poor dialysis candidate should the need arise > risk of recurrent bacteremia, bleeding, challenges maintaining dialysis access/ patient position for treatment. that said, there is no strict contraindication to INTERCHANGE AGENT though I personally believe it will diminish further the already poor quality of the time he has left. I spent >30 minutes discussing these concerns w/ today. her ultimate decision is for INTERCHANGE AGENT > "if the only possibility to live is with dialysis then that is what I choose;" will continue to discuss. >consider change in TF to novasource >> would hope to lower total volume but concern that this increased protein may worsen bun further Per infectious diseases recommendations, he is on 6 weeks of empiric vancomycin with rifampin > daptomycin through April 02; had planned also after this to follow indefinitely with antibiotic suppression doxycycline 100 mg twice daily due to concern for possible CIED infection or endocarditis -avoid further IV contrast for now unless life/limb saving -appreciate nutrition /dietary close follow up > continue current TF for now w/ low threshold to change if K/phos worsen; cont current TF -would not give lasix at this time unless respiratory status worsening > if needed would give 40 mg IV -would not give IV fluids at this time -avoid NSAID >>ensure recheck of CBC in AM > so ordered >continue to discuss goals of care Admission and Anticipated Discharge Date Admission Date: February 03, 2023 Subjective no acute interval events. at bedside w/ many questions. Review of Systems Review of Systems: unable to obtain Physical Exam Constitutional: well developed, + cachectic and + frail appearing; no acute distress ENMT: Mouth: + dry oral mucous membranes and + poor dentition Respiratory: normal respiratory effort Auscultation: + diminished lung sounds and + crackles Cardiovascular: Rate/Rhythm: regular rate and regular rhythm Extremities: + edema (trace on R; no L) Gastrointestinal (Abdomen): Inspection/Auscultation: normal bowel sounds and + scaphoid (PEG present) Results & Data Vital Signs (Past 12 Hours) Vital Signs Temp Pulse Resp BP Pulse Ox O2 Del Method O2 Flow Rate 03/19/23 08:12 36.6 C 71 18 115/66 96 Nasal Cannula 4 Laboratory Results 03/18/23 06:37 03/19/23 06:47
[2023-03-19] MEDS: DAPTOmycin 800 MG in SYRINGE 0 ML IV SCH (14:01)
[2023-03-19] MEDS: RIFAMPIN PEG SCH (17:25)
[2023-03-19] MEDS: TERAZOSIN HCL 1 MG CAP PO SCH (22:05)
[2023-03-20] MEDS: TUBE FEEDING WATER FLUSH PEG SCH ×6 (00:10→23:33)
[2023-03-20] MEDS: NUTREN LIQD 2.0 1,000 ML BAG PEG SCH ×2 (02:09→20:40)
[2023-03-20] MEDS: guaiFENesin SUGAR FREE 200 MG/10 ML UDC PO SCH ×4 (04:57→20:40)
[2023-03-20 07:46] LABS: Hemoglobin 7.2 g/dl (14.0-18.0); Mean Corpuscular Hemoglobin 29.5 pg (25.0-34.0); Mean Corpuscular Hgb Conc 31.3 g/dL (32.0-36.0); Mean Corpuscular Volume 94.3 fL (80.0-100.0); Mean Platelet Volume 10.3 fL (9.4-12.4); Platelet Count 317 K/uL (130-400); RDW Coefficient of Variation 15.6 % (11.5-14.5); RDW Standard Deviation 53.2 fL (36.4-46.3); Red Blood Count 2.44 M/uL (4.70-6.10); White Blood Count 9.67 K/ul (4.8-10.8)
[2023-03-20] MEDS: LANSOPRAZOLE 30 MG SOLTAB PEG SCH ×2 (07:57→20:39)
[2023-03-20 08:12] LABS: Calcium 7.4 mg/dl (8.6-10.3); Creatinine Clr Calc Pharmacy 11.6 ml/min; Est GFR (African American) 10.3 ml/min; Est GFR (Non-African American) 8.8 ml/min; Potassium 5.1 mmol/L (3.5-5.1)
[2023-03-20 08:28] LABS: BUN Creatinine Ratio 27.4 (10-20)
--- NOTE | 2023-03-20 09:58 | Nephrology Progress Note ---
Date of Service March 20, 2023 Assessment & Plan (1) Acute renal failure (ARF): Plan: Nephrology following for multiple episodes of acute kidney injury this admission. Earlier this admission he had prerenal HERSON with peak creatinine 5.6 February 04; improved to approximately 1.2-1.3 creatinine then recurrent acute kidney injury in the setting of aspiration pneumonia diagnosis and therapy February 20 w/ creatinine going from 1 > 1.7 in 24 hrs and then plateau'd at about 2 since February 21; not oliguric; did require Ferris replacement in this timeframe. Now having another episode of ARF suspect from ischemic ATN related to anemia and to hypotension 03/14 and 03/15 He had creat of 6 on admission which recovered but there is no improvement only slow decline since insult Not oliguric Creat up again from yesterday and BUN continues to climb >> POA wants dialysis for this patientn Hgb is low and he now has some Pulm edema + Aspiration pneumonitis on CXR No iv fluid. No lasix for now but can be given if He gets SOB/worse hypoxia exceptionally poor dialysis candidate > risk of recurrent bacteremia, bleeding, challenges maintaining dialysis access/ patient position for treatment particularly w/ his contractures. that said, there is no strict contraindica tion to RESEARCH SCIENTIST though I personally believe it will diminish further the already poor quality of the time he has left. her ultimate decision is for RESEARCH SCIENTIST > "if the only possibility to live is with dialysis then that is what I choose;" with labs worse today will move forward with RESEARCH SCIENTIST per her wishes >attempted to reach POA for formal dialysis consent today w/o success > consent by phone later obtained on chart for RESEARCH SCIENTIST HD today and again tomorrow, Saturday, then rest depending on clinical status -no heparin or epo today >consider change in TF to novasource >> would hope to lower total volume but concern that this increased protein may worsen bun further Per infectious diseases recommendations, he is on 6 weeks of empiric vancomycin with rifampin > daptomycin through April 02; had planned also after this to follow indefinitely with antibiotic suppression doxycycline 100 mg twice daily due to concern for possible CIED infection or endocarditis -avoid further IV contrast for now unless life/limb saving -appreciate nutrition /dietary close follow up > continue current TF for now w/ low threshold to change if K/phos worsen; cont current TF -would not give lasix at this time unless respiratory status worsening > if needed would give 40 mg IV -would not give IV fluids at this time -avoid NSAID >>ensure recheck of CBC in AM > pRBC PRN >continue to discuss goals of care Admission and Anticipated Discharge Date Admission Date: February 03, 2023 Subjective no interval events; renal function worsening and per POA preference we are moving forward w/ RESEARCH SCIENTIST. vascular consulted; for TDC today. Review of Systems Review of Systems: Unobtainable due to cognitive status Physical Exam Constitutional: well developed, + cachectic and + frail appearing; no acute distress Eyes: eyes stare; do not track ENMT: Mouth: + dry oral mucous membranes and + poor dentition Respiratory: normal respiratory effort Auscultation: + diminished lung sounds Cardiovascular: Rate/Rhythm: regular rate and regular rhythm Extremities: + edema (trace on R at most; no L) Gastrointestinal (Abdomen): Inspection/Auscultation: normal bowel sounds and + scaphoid (PEG present) Musculoskeletal: contractures Skin: some pressure wounds Neurologic: obtunded, little voluntary mvt, no speech or ability to communicate Results & Data Vital Signs (Past 12 Hours) Vital Signs Temp Pulse Resp BP Pulse Ox O2 Del Method O2 Flow Rate 03/20/23 07:36 36.9 C 68 20 134/68 92 Nasal Cannula 4 Laboratory Results 03/20/23 07:28 03/20/23 07:28
--- NOTE | 2023-03-20 09:59 | Consultation ---
Date of Consultation March 20, 2023 Assessment & Plan (1) Acute renal failure (ARF): Pt with ARF, but also with multiple chronic severe comorbidities, including severe dementia and malnutrition and chronic decubiti. Unable to discuss permcath insertion with pt. Pt also seen by Dr Lynn today, planning on permc ath insertion later this AM. He will discuss with pt's by phone. Patient was seen, examined, and chart reviewed. Agree with exam and treatment plan of the Vascular PA. Discussed permcath insertion with . I have discussed the risks options and benefits of the procedure with the patient's . The patient's understands the risks options and benefits and agrees to the procedure. History of Present Illness Reason for Consultation: HERSON Attending Physician: Jermaine Benítez MD History of Present Illness 87 yo m with hx of CKD, HTN, CAD s/p CABG, pacemaker, Parkinson's disease, lewy body dementia, protein malnutrition, anemia, admitted with worsening decubitus ulcers and developed worsening renal fx, currently in palliative care, seen in consultation today for permcath insertion for HD initiation. Pt unable to answer any questions, remains sleeping throughout exam. Review of chart indicates pt with severe chronic, progressive dementia and multiple chronic decubiti. He has a G tube d/t dysphagia. Nephrology had discussion with pt's regarding his worsening renal fxn, and wishes to have him undergo permcath insertion and initiation of HD. Allergies Allergy/AdvReac Type Severity Reaction Status Date / Time No Known Allergies Allergy Verified 12/19/22 11:15 Home Medications Medication Instructions Recorded Confirmed Type atorvastatin 20 mg tablet (Lipitor) 20 mg PO QPM #30 tabs 09/11/21 02/03/23 Rx carbidopa 25 mg-levodopa 100 mg 1 tab PO BID #60 tabs 09/11/21 02/03/23 Rx tablet sennosides 8.6 mg-docusate sodium 1 tab PO QAM #30 tabs 09/11/21 02/03/23 Rx 50 mg tablet (Senokot-S) acetaminophen 325 mg tablet 650 mg PO Q4H PRN PAIN/FEVER 09/12/22 02/03/23 History (Tylenol) aspirin 81 mg tablet,delayed 81 mg PO QAM 09/12/22 02/03/23 History release donepezil 5 mg tablet 5 mg PO QAM 09/12/22 02/03/23 History metoprolol tartrate 25 mg tablet 25 mg PO QAM 09/12/22 02/03/23 History polyethylene glycol 3350 17 gram 17 g PO QAM 09/12/22 02/03/23 History oral powder packet (Miralax) Patient History Medical History Aortic aneurysm Aortic stenosis Atrial fibrillation CAD (coronary artery disease) Dementia Discussion about advance care planning held with family member Goals of care, counseling/discussion Hemolytic anemia HLD (hyperlipidemia) HTN (hypertension) Left rib fracture long term resident Pacemaker Pacemaker battery depletion Palliative care by specialist Parkinsons disease Rhabdomyolysis Septic shock T12 compression fracture Surgical History H/O prosthetic heart valve History of cataract surgery right Hx of heart bypass surgery Social History Smoking Status: Unknown if ever smoked Hx Substance Use: No Preferred Language: Andorran Communication Ability: Unable Visual Impairment: No Limitations Hearing Ability: Normal Etcher Aircraft Required: No Beliefs That Will Affect Care: None marital status: Current Living Situation: [facility] Current Living Situation Comment: resident at [facility] Feels Safe at Home: Declines to Answer Assistive Devices: Wheelchair Review of Systems Review of Systems: Unobtainable due to cognitive status Physical Exam Constitutional: + ill appearing, + cachectic, + frail appearing and + malnourished; + uncooperative and not in distress (but does not wake for examination) Neck: trachea midline Respiratory: normal respiratory effort Auscultation: lungs clear to auscultation bilaterally and + diminished lung sounds Cardiovascular: Rate/Rhythm: regular rate and regular rhythm Vessels: femoral pulses present (unable to examine d/t contractures), posterior tibial pulses present, dorsalis pedis pulses present and radial pulses present; + abnormal peripheral pulses Extremities: normal capillary refill pacemaker noted L chest Gastrointestinal (Abdomen): Inspection/Auscultation: + abdomen abnormal to inspection (unable to examine) Musculoskeletal: Extremities: + extremities abnormal to inspection (pt with multiple decubiti and contractures) Skin: + ulcer (multiple) and + eschar (multiple) Neurologic: + obtunded; + not awake Psychiatric: Orientation: + not alert, + not oriented x 3 and + uncooperative Results & Data Vital Signs (Past 12 Hours) Vital Signs Temp Pulse Resp BP Pulse Ox O2 Del Method O2 Flow Rate 03/20/23 07:36 36.9 C 68 20 134/68 92 Nasal Cannula 4
--- NOTE | 2023-03-20 10:16 | Anesthesiology Consultation ---
Date of Service March 20, 2023 Assessment & Plan Chart Review Chart Review: Acceptable Risk for Surgery and Patient NOT seen in Pre Admission Testing Consults Requested none ASA ASA5 Proposed Anesthesia Anesthesia Type: MAC History Surgery Operation Date: 02/14/23 07:00 Proposed Procedures p Esophagogastroduodenoscopy - Josie Erazo MD s PEG Tube Placement - Josie Erazo MD Operation Date: 02/14/23 16:45 Proposed Procedures p Esophagogastroduodenoscopy Dr Erazo - Josie Erazo MD Operation Date: 03/20/23 10:30 Proposed Procedures p Insertion of Perm Catheter - Michael Lynn MD Height/Weight Height: 6 ft 3 in Weight: 88.6 kg Allergies Allergy/AdvReac Type Severity Reaction Status Date / Time No Known Allergies Allergy Verified 12/19/22 11:15 Medications Home Medications Medication Instructions Recorded Confirmed Last Taken atorvastatin 20 mg tablet (Lipitor) 20 mg PO QPM #30 tabs 09/11/21 02/03/23 09/11/22 carbidopa 25 mg-levodopa 100 mg 1 tab PO BID #60 tabs 09/11/21 02/03/23 09/12/22 08:00 tablet sennosides 8.6 mg-docusate sodium 1 tab PO QAM #30 tabs 09/11/21 02/03/23 09/12/22 50 mg tablet (Senokot-S) acetaminophen 325 mg tablet 650 mg PO Q4H PRN PAIN/FEVER 09/12/22 02/03/23 08/21/22 (Tylenol) aspirin 81 mg tablet,delayed 81 mg PO QAM 09/12/22 02/03/23 09/12/22 release donepezil 5 mg tablet 5 mg PO QAM 09/12/22 02/03/23 09/12/22 metoprolol tartrate 25 mg tablet 25 mg PO QAM 09/12/22 02/03/23 09/12/22 polyethylene glycol 3350 17 gram 17 g PO QAM 09/12/22 02/03/23 09/12/22 oral powder packet (Miralax) Active Medications Generic Name Dose Route Start Last Admin Trade Name Freq PRN Reason Stop Dose Admin Albuterol 3 ml 02/19/23 23:08 03/17/23 14:00 Albut/Ipratrop 3mg/0.5mg Neb 3 Ml Vial NEB 03/22/23 02:59 3 ml Q4R PRN Administration Shortness Of Breath Or Wheezing Protocol Guaifenesin 200 mg 03/14/23 10:00 03/20/23 04:57 Guaifenesin Sugar Free 200 Mg/10 Ml Udc PO 04/13/23 09:59 200 mg Q6H FERNIE Administration Heparin Sodium (Beef Lung) 5 ml 03/09/23 15:33 03/19/23 14:01 Heparin 10 Unit/Ml 5 Ml Flush FLUSH 04/08/23 15:32 5 ml PRN PRN Administration Flush Daptomycin 800 mg/ Syringe 16 mls @ 8 mls/min 03/15/23 14:00 03/19/23 14:01 IV 03/30/23 23:59 8 mls/min Q48H FERNIE Administration Protocol Lansoprazole 30 mg 03/04/23 21:00 03/20/23 07:57 Lansoprazole 30 Mg Soltab PEG 04/03/23 20:59 30 mg BID FERNIE Administration Nutritional Formula 1,000 ml 02/20/23 15:45 03/20/23 02:09 Nutren Liqd 2.0 1,000 Ml Bag PEG 03/22/23 15:44 1,000 ml UD FERNIE Administration Protocol Rifampin 600 mg 02/21/23 18:00 03/19/23 17:25 Rifampin 600mg/60ml Udp PEG 03/30/23 17:59 600 mg Q24H FERNIE Administration Sterile Water 150 ml 03/15/23 12:00 03/20/23 07:36 Tube Feeding Water Flush PEG 04/14/23 11:59 Not Given Q4 FERNIE Terazosin HCl 2 mg 02/20/23 21:00 03/19/23 22:05 Terazosin Hcl 1 Mg Cap PO 03/22/23 20:59 2 mg HS FERNIE Administration Past Medical History Medical History Aortic aneurysm Aortic stenosis Atrial fibrillation CAD (coronary artery disease) Dementia Discussion about advance care planning held with family member Goals of care, counseling/discussion Hemolytic anemia HLD (hyperlipidemia) HTN (hypertension) Left rib fracture longterm resident Pacemaker Pacemaker battery depletion Palliative care by specialist Parkinsons disease Rhabdomyolysis Septic shock T12 compression fracture Exercise / Class Metabolic Activity IV < 2 Limit ADL/Bedbound Past Surgical History Surgical History H/O prosthetic heart valve History of cataract surgery right Hx of heart bypass surgery Past Anesthesia History No Hx of Anesthesia Complications and No Family Hx of Anesthesia Complications History of PONV No Hx of PONV and No Hx of Motion Sickness Social History Smoking Status: Unknown if ever smoked Hx Substance Use: No Physical Exam Vital Signs Last Vital Signs Temp 36.9 C 03/20/23 07:36 Pulse 68 03/20/23 07:36 Resp 20 03/20/23 07:36 BP 134/68 03/20/23 07:36 Pulse Ox 92 03/20/23 07:36 O2 Del Method Nasal Cannula 03/20/23 07:36 O2 Flow Rate 4 03/20/23 07:36 FiO2 28 02/10/23 20:16 Testing Laboratory Results 03/20/23 07:28 03/20/23 07:28 PT 12.2 Seconds (9.0-12.0) H 02/18/23 10:31 INR 1.2 (0.9-1.1) H 02/18/23 10:31 APTT 41.0 Seconds (21.0-31.0) H 02/05/23 04:49 Urine Color Yellow 02/28/23 20:15 Urine Appearance Cloudy (Clear) A 02/28/23 20:15 Urine pH 5.5 (4.5-7.5) 02/28/23 20:15 Ur Specific [place] 1.014 (1.000-1.030) 02/28/23 20:15 Urine Protein 2+ (Negative) H 02/28/23 20:15 Urine Glucose (UA) Negative (Negative) 02/28/23 20:15 Urine Ketones Negative (Negative) 02/28/23 20:15 Urine Nitrite Negative (Negative) 02/28/23 20:15 Ur Leukocyte Esterase 2+ (Negative) H 02/28/23 20:15 Urine WBC (Auto) >30 /hpf (0-5) H 02/28/23 20:15 Urine RBC (Auto) 0-4 /hpf (0-4) 02/28/23 20:15 U Hyaline Cast (Auto) 1-5 /lpf (0-5) 02/28/23 20:15 U Epithel Cells (Auto) 20-30 /lpf (0-5) H 02/28/23 20:15 Urine Bacteria (Auto) 1+ (Negative) H 02/28/23 20:15 Blood Type A Negative 03/15/23 06:01 Antibody Screen NEGATIVE 03/15/23 06:01 03/08/23 09:24 Aerobic Blood Culture - Final Blood Coag neg staph not lugdunensis Anaerobic Blood Culture - Final 03/08/23 09:24 Aerobic Blood Culture - Final Blood No growth in Aerobic bottle after 5 days. Anaerobic Blood Culture - Final 03/02/23 17:40 Aerobic Blood Culture - Final Blood No growth in Aerobic bottle after 5 days. Anaerobic Blood Culture - Final No growth in Anaerobic bottle after 5 days. 03/02/23 17:44 Aerobic Blood Culture - Final Blood No growth in Aerobic bottle after 5 days. Anaerobic Blood Culture - Final No growth in Anaerobic bottle after 5 days. 02/28/23 20:15 Urine Culture - Final Urine,Clean Catch Liliana albicans/dubliniensis 02/21/23 14:33 Aerobic Blood Culture - Final Blood No growth in Aerobic bottle after 5 days. Anaerobic Blood Culture - Final No growth in Anaerobic bottle after 5 days. 02/21/23 14:25 Aerobic Blood Culture - Final Blood No growth in Aerobic bottle after 5 days. Anaerobic Blood Culture - Final No growth in Anaerobic bottle after 5 days. 02/05/23 15:00 Aerobic Blood Culture - Final Blood No growth in Aerobic bottle after 5 days. Anaerobic Blood Culture - Final No growth in Anaerobic bottle after 5 days. 02/24/23 13:03 Urine Culture - Final Urine,Indwelling Cath Liliana albicans/dubliniensis 02/07/23 04:47 Aerobic Blood Culture - Final Blood No growth in Aerobic bottle after 5 days. Anaerobic Blood Culture - Final No growth in Anaerobic bottle after 5 days. 02/07/23 04:47 Aerobic Blood Culture - Final Blood No growth in Aerobic bottle after 5 days. Anaerobic Blood Culture - Final No growth in Anaerobic bottle after 5 days. 02/05/23 14:57 Aerobic Blood Culture - Final Blood No growth in Aerobic bottle after 5 days. Anaerobic Blood Culture - Final No growth in Anaerobic bottle after 5 days. 02/03/23 14:28 Aerobic Blood Culture - Final Blood Coag neg staph not lugdunensis Coag neg staph not lugdunensis#2 Anaerobic Blood Culture - Final Coag neg staph not lugdunensis Coag neg staph not lugdunensis#2 02/03/23 14:28 Aerobic Blood Culture - Final Blood Coag neg staph not lugdunensis Coag neg staph not lugdunensis#2 Anaerobic Blood Culture - Final Coag neg staph not lugdunensis Coag neg staph not lugdunensis#2 02/04/23 Unknown Gram Stain - Final Sputum,Vent Suction Sputum Culture - Final Klebsiella pneumoniae Liliana albicans/dubliniensis 02/03/23 16:12 Urine Culture - Final Urine,Clean Catch Three types of organisms present, all high counts. Repeat collection recommended. No further identifications or sensitivities to follow. Electrocardiogram Date: 02/03/23 Atrial-paced rhythm with Premature atrial complexes, rate 74 bpm Right bundle branch block Abnormal ECG When compared with ECG of 19-DEC-2022 04:35, Electronic atrial pacemaker has replaced Electronic ventricular pacemaker Confirmed by Joon Garcia ([id number]) on 02/04/2023 10:51:56 AM Chest X-Ray Date: 03/15/23 Findings: + cardiomegaly, + pulmonary vascular congestion (evidence of CHF) and + pleural effusion (layering pleural effusion w/ bibasilar opacities) IMPRESSION: 1. Satisfactory appearance of lines and tubes were visualized. 2. Bilateral lower lung airspace opacities likely represent atelectasis. Stable cardiomegaly. Echocardiogram Date: 12/20/22 EF: 50% LV Function: low normal RWMA: + none Other Findings: + atrial enlargement (LA moderately dilated), + LVH (mild) and + diastolic dysfunction (Grade 2) Mild concentric LVH Septal motion is abnormal, consistent with RV pacemaker activation LV systolic function is low normal EF 50-55% There is a bioprosthetic AV without suggestion of prosthetic valve stenosis or regurgitation Diastolic dysfunction, grade 2 There is mild TR
[2023-03-20] MEDS ORDERED: MIDAZOLAM HCL 1 MG/ML 2ML VIAL ONE (10:17)
[2023-03-20] MEDS ORDERED: fentaNYL citrate PF 100 MCG/2 ML VIAL ONE (10:17)
[2023-03-20] MEDS ORDERED: PROPOFOL IV EMULSION 10 MG/ML 20 ML VIAL IV ONE (10:18)
[2023-03-20] MEDS ORDERED: HEPARIN SOD (PORCINE) 5,000 UNITS/ML VIAL ONE (10:38)
[2023-03-20] MEDS ORDERED: LIDOCAINE 1% LOCAL 20 ML VIAL ONE (10:38)
--- NOTE | 2023-03-20 10:48 | Hospitalist Progress Note ---
Date of Service March 20, 2023 Assessment & Plan (1) Septic shock: (2) Acute hypernatremia: (3) Acute renal failure (ARF): (4) Goals of care, counseling/discussion: (5) Anemia: (6) Wounds and injuries: Plan Per previous hospitalist w/ addendum Patient is an 87 yr male presents from [facility] with septic shock, renal failure. Revoked hospice for ED admission per request who was traveling from [facility]. Pt was intubated. Admitting team confirmed No CPR, defibrillation, cardioversion in the event of cardiac arrest. Palliative care evaluated. He is being managed for the following: Intermittent fever Despite treating with multiple antibiotics Appreciate ID input Poor prognosis Plan to discharge to rehab facility when accepted Started on Zosyn-on 03/08/23, continue vancomycin>> transition to Vanco, cefepime Repeat blood cultures 11/19: Coagulase-negative staph not lugdunensis Patient's prefers to continue current management despite explaining very poor prognosis Repeat blood cultures11/21 growing coagulase-negative staph Persistent bacteremia despite aggressive IV antibiotics Discussed w/ Dr. 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 Weaned off pressors and extubated 02/06. Pansensitive Klebsiella in sputum. Liliana in sputum likely a contaminant Urine Culture: Noncontributory (H/O chronic Ferris, recent h/o of UTI) ECHO: EF 50 to 55%, bioprosthetic aortic valve, mild mitral regurgitation, grade 2 diastolic dysfunction, mild tricuspid regurgitation High risk for aspiration pneumonia. Known recent month long admission with urosepsis; was recently on Hospice Repeat blood cultures were negative. Initially admitted on Vanc/Zosyn 02/03 Plan will be total 6 weeks of Vancomycin with rifampin added from 02/16/23 with surveillance cultures (2 sets from the periphery) 5-7 days post completion of abx therapy. End date 04/02/2023. Switched vanco to daptomycin, as above Continue current antibiotics and will change according to the plan Discussed with the about discharging him on approval to go to the [facility]-awaiting placement Continue wound care for decubitus ulcers Continue air mattress Acute Renal Failure: present at admission which was resolved. Had another bump in Cr on 02/20, d/w nephro - no ivf/avoid nephrotoxics/hold vanc until acceptable trough level achieved. appreciate recs. Nephrology managing Renal function slowly worsening ATN Cr 5.3 today - nephrology following closely, pls see nephrology note for further detail - BUN also rising and HD not advised - discussed w/ nephrology and on multiple occasions- pt's wishes to proceed w/ HD - HD catheter placed this AM (03/20/2023), plan for HD today and tmrw Cautious use of IV fluids given tendency to overload easily Received IV fluids, as above Continue fluids via PEG tube As per prior hospitalist Anemia: Hemoglobin >7, no active bleeding. PBS without Schistocytes, normal reticulocyte count, hemolysis less likely. Iron deficiency present. Poor nutrition does not help. Cont iron supplementation and proper nutrition. Will check hemoglobin if it is less than 7 will transfuse Hemoglobin dropped down to 6.6 and gave 2 units of blood transfusion Hb 6.7 (03/15) - transfused 1 unit of pRBC (w/ IV lasix w/ transfusion) Monitor H&H Severe protein calorie malnutrition H/O Esophageal dysmotility Dysphagia: Speech therapy involved in his care this admission. Palliative care involved, Patient's POA now agreeing to no escalation of care (pressors, CPR, intubation). She declines COURT. However, POA would like PEG feeds. PEG placed 02/14-tolerating feeds without residual Remains high risk for aspiration [facility] cannot accept him back with PEG in place PEG feed held due to vomiting, resume peg feed at low rate, and upto 50% of goal for now. Consider pr bowel regimen to help w/ constipation as needed, moved large bowel per RN. Keep HOB at 30 degrees/aspiration precautions. No problem with the PEG feeding-electrolytes unremarkable Continue with the PEG tube feeding Acute hypoxic respiratory failure Secondary to left lower lobe pneumonia likely due to aspiration Was weaned down to 2L NC O2, had vomiting and aspiration event 02/19, TF was held, and unasyn added 02/20. Repeat -chest x-ray showing cardiomegaly with pulmonary edema and a small pleural effusion Given Lasix as needed Wean off of supplemental oxygen as able Currently on 4 L supplemental oxygen 03/15 - tachypneic pulm congestion on CXR (pt received IVF earlier to see if it helps with his worsening renal function). IVF stopped, and free water decreased. Pt also needed blood transfusion and so IV lasix given as well. Cont. to closely monitor 03/19 pt continues to be tachypneic, oxygen requirement unchanged - 4L 03/20 after catheter placed - pt more rhonchous, suctioning provided by nursing staff, placed on oxymask Acute metabolic encephalopathy/known Dementia Secondary to above, in setting of Lewy body dementia and Hypernatremia (Na was 164 on admission 02/03), sodium now normal - 144 CT head: No significant change compared to the prior study. No acute intracranial abnormality. Elev. troponin: Troponin level 400's on admission - likely type II IN, secondary to above. No further workup at this time. Acute Hypernatremia: resolved. Chronic Ferris/urinary retention: Ferris was replaced this admission. [facility] [place] aware of his need for follow-up. would like to consider TURP or other prostate surgery in the future For now, will cont with alpha-ban. The only one that will go through the PEG is terazosin This capsule has to be melted in warm water for 15 minutes and then given as a solution through the PEG. Ferris changed With culture grew Liliana albicans and started on oral Diflucan (now stopped) Per prior hospitalist WOUNDS: Multiple sites of ulceration with necrosis There are multiple pressure sites for skin breakdown This was a possible source for his sepsis this admission Wound care nurse consulted. 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 failure, s/p aspiration post PEG tube , poss. endocarditis Pt seen in PACU after dialysis catheter placed. RN at the bedside suctioning the pt. Laying in bed in NAD. Been tachypneic. Does not follow commands. Discussed with patient's at bedside on multiple occasions who understands his critical condition but prefers to continue current management. Renal function has been poor and Prognosis remains poor. Nephrology following closely as well. HD not advised - this was discussed w/ nephrology and pt's - would like to proceed regardless. Discussed w/ Dr. Renteria this AM - plan for dialysis cath placement by vas. surgery, HD today and tmrw. Palliative medicine involved. Review of Systems Review of Systems: All systems reviewed & are unremarkable except as noted in Subjective Physical Exam Physical Exam: General Appearance: Elderly frail, chronically Ill appearing, no apparent distress however tachypneic, on suppl. oxygen Head: normocephalic, Atraumatic Eyes: normal inspection Neck: supple Respiratory/Chest: Decreased breath sounds, + rhonchi, No accessory muscle use Cardiovascular: S1, S2, + murmur Abdomen/GI: Soft, Non tender, +Peg tube, Bowel sounds present Extremities/Musculoskeletal: normal inspection, + some upper extremity edema b/l, pedal edema Neurologic/Psych: nonverbal, does not follow commands Skin: normal color, warm Results & Data Results & Data Vital Signs (Past 12 Hours) Vital Signs Temp Pulse Resp BP Pulse Ox O2 Del Method O2 Flow Rate 03/20/23 07:36 36.9 C 68 20 134/68 92 Nasal Cannula 4 Laboratory Results 03/20/23 03/20/23 Range/Units 07:28 07:28 WBC 9.67 (4.8-10.8) K/ul RBC 2.44 L (4.70-6.10) M/uL Hgb 7.2 L (14.0-18.0) g/dl Hct 23.0 L (42.0-52.0) % MCV 94.3 (80.0-100.0) fL MCH 29.5 (25.0-34.0) pg MCHC 31.3 L (32.0-36.0) g/dL RDW Std Deviation 53.2 H (36.4-46.3) fL RDW Coeff of Lacey 15.6 H (11.5-14.5) % Plt Count 317 (130-400) K/uL MPV 10.3 (9.4-12.4) fL Sodium 144 (136-145) mmol/L Potassium 5.1 (3.5-5.1) mmol/L Chloride 108 H (98-107) mmol/L Carbon Dioxide 27 (21-32) mmol/L Anion Gap 9 (3-11) BUN 147 H (6-23) mg/dl Creatinine 5.36 H* (0.6-1.4) mg/dl Est Cr Clr Drug Dosing 11.6 ml/min Est GFR ( Amer) 10.3 ml/min Est GFR (Non-Af Amer) 8.8 ml/min BUN/Creatinine Ratio 27.4 H (10-20) Glucose 134 H (70-99(Fasting)) mg/dl Calcium 7.4 L (8.6-10.3) mg/dl Medications Administered Current Inpatient Medications Albuterol (Albut/Ipratrop 3mg/0.5mg Neb 3 Ml Vial) 3 ml NEB Q4R PRN; Protocol PRN Reason: Shortness Of Breath Or Wheezing Stop: 03/22/23 02:59 Last Admin: 03/17/23 14:00 Dose: 3 ml Furosemide (Furosemide 40 Mg/4 Ml Vial) 40 mg IV ONE PRN PRN Reason: prior to blood transfusion Stop: 04/14/23 11:35 Guaifenesin (Guaifenesin Sugar Free 200 Mg/10 Ml Udc) 200 mg PO Q6H FERNIE Stop: 04/13/23 09:59 Last Admin: 03/20/23 04:57 Dose: 200 mg Heparin Sodium (Beef Lung) (Heparin 10 Unit/Ml 5 Ml Flush) 5 ml FLUSH PRN PRN PRN Reason: Flush Stop: 04/08/23 15:32 Last Admin: 03/19/23 14:01 Dose: 5 ml Daptomycin 800 mg/ Syringe 16 mls @ 8 mls/min IV Q48H FERNIE; Protocol Stop: 03/30/23 23:59 Last Admin: 03/19/23 14:01 Dose: 8 mls/min Lansoprazole (Lansoprazole 30 Mg Soltab) 30 mg PEG BID FERNIE Stop: 04/03/23 20:59 Last Admin: 03/20/23 07:57 Dose: 30 mg Nutritional Formula (Nutren Liqd 2.0 1,000 Ml Bag) 1,000 ml PEG UD FERNIE; Protocol Stop: 03/22/23 15:44 Last Admin: 03/20/23 02:09 Dose: 1,000 ml Rifampin (Rifampin 600mg/60ml Udp) 600 mg PEG Q24H FERNIE Stop: 03/30/23 17:59 Last Admin: 03/19/23 17:25 Dose: 600 mg Sterile Water (Tube Feeding Water Flush) 150 ml PEG Q4 FERNIE Stop: 04/14/23 11:59 Last Admin: 03/20/23 07:36 Dose: Not Given Terazosin HCl (Terazosin Hcl 1 Mg Cap) 2 mg PO HS FERNIE Stop: 03/22/23 20:59 Last Admin: 03/19/23 22:05 Dose: 2 mg
[2023-03-20] MEDS ORDERED: SODIUM CHLORIDE 0.9% 1000ML 1,000 ML IV PRN (11:04)
--- NOTE | 2023-03-20 11:43 | Operative Report ---
Post Operative Report Pre & Post Diagnosis Operation Date: 03/20/23 10:30 Pre-Op Diagnosis: Acute Renal Failure Post-Op Diagnosis: Acute Renal Failure I identified the patient and participated in the time-out.: Yes Procedure Operation Date: 03/20/23 10:30 Actual Procedures p Insertion of Perm Catheter, Right Jugular Approach, Ultrasound Localization of Right Jugular Vein, Fluoroscopy for Positioning(Right) - Michael Lynn MD Surgeon Michael Lynn MD Planning Feeder None Estimated Blood Loss 5 Findings Consistent with Post-Op Diagnosis Specimens none Anesthesia Type MAC Complications none Disposition Accompanied Patient To Recovery: No Disposition: Recovery Room Indications This is an 87-year-old gentleman with acute renal injury. His spouse wants dialysis for his renal failure. PermCath access was recommended for dialysis. I have discussed the risks options and benefits of the procedure with the patient's . The patient's understands the risks options and benefits and agrees to the procedure. Description of Procedure Patient was taken to the angio suite and placed in the supine position. The right side of the neck and chest wall were prepped and draped in a sterile manner. The patient was identified and a timeout performed. Local anesthesia was then administered to the appropriate areas of the neck and chest wall. Ultrasound was then used to locate the right internal jugular vein. The vein compressed easily, had no filing defects, and was patent. The vein was then punctured under direct ultrasound imaging. A guidewire was then passed centrally under fluoroscopic imaging. A stab wound was then made in the anterior chest wall and a 19 cm permcath was passed from the stab wound on the chest wall to the puncture site on the neck. The puncture site was then dilated till the 14Fr peel away sheath was inserted. The permcath was then inserted through the sheath to a central position in the distal superior vena cava. The peel away sheath was then removed. The catheter was then sutured in place using nylon sutures. The puncture was then closed using a 4-0 Vicryl subcuticular suture. Dermabond was used for a dressing on the puncture site. Both ports aspirated and flushed easily and were then packed with heparin. A sterile dressing was applied to the catheter. The patient left the operation room in satisfactory condition and tolerated the procedure well. All needle and sponge counts were correct at the end of the procedure. I attest to the content of the Intraoperative Record and any orders documented therein. Any exceptions are noted below.
--- NOTE | 2023-03-20 12:08 | Anesthesiology Progress Note ---
Date of Service March 20, 2023 Anesthesia Post Procedure Vital Signs Vital Signs: Temp Pulse Pulse Resp BP Pulse Ox O2 Del Method 03/20/23 11:55 71 28 H 126/68 95 Nasal Cannula 03/20/23 11:47 36.6 C 72 28 H 131/75 97 Oxymask 03/20/23 07:45 Nasal Cannula 03/20/23 07:36 36.9 C 68 20 134/68 92 Nasal Cannula 03/19/23 21:15 Nasal Cannula 03/19/23 21:27 37.0 C 74 18 105/57 L 92 Nasal Cannula 03/19/23 15:06 36.4 C L 79 20 149/70 H 90 Nasal Cannula O2 Flow Rate 03/20/23 11:55 4 03/20/23 11:47 13 03/20/23 07:45 4 03/20/23 07:36 4 03/19/23 21:15 4 03/19/23 21:27 4.0 03/19/23 15:06 4 Pain Intensity Bilateral Generalized: Pain Intensity: 0 Transfer of Care Handoff Completed per policy Notes Mental Status: see notes below (patient has severe lewy body dementia) Patient Amnestic to Procedure: Yes Nausea / Vomiting: adequately controlled Pain: adequately controlled Airway Patency, RR, SpO2: stable & adequate BP & HR: stable & adequate Hydration State: stable & adequate Anesthetic Complications: no major complications apparent
[2023-03-20] MEDS: RIFAMPIN PEG SCH (20:39)
[2023-03-20] MEDS: TERAZOSIN HCL 1 MG CAP PO SCH (20:39)
[2023-03-20] MEDS ORDERED: METOPROLOL TARTRATE 1 MG/ML VIAL IV STA (21:51)
[2023-03-20 22:47] LABS: Magnesium 2.1 mg/dl (1.7-2.4)
[2023-03-21] MEDS: TUBE FEEDING WATER FLUSH PEG SCH ×6 (03:50→23:41)
[2023-03-21] MEDS: guaiFENesin SUGAR FREE 200 MG/10 ML UDC PO SCH ×4 (03:50→21:40)
[2023-03-21] MEDS ORDERED: EPOETIN ALFA 10,000 UNITS/ML VIAL IV SCH (08:00)
[2023-03-21] MEDS ORDERED: IRON SUCROSE 100 MG in SYRINGE 0 ML IV SCH (08:00)
[2023-03-21] MEDS ORDERED: SODIUM CHLORIDE 0.9% 1000ML 1,000 ML IV PRN (08:00)
[2023-03-21 08:01] LABS: Anion Gap 9 (3-11); BUN Creatinine Ratio 25.2 (10-20); Blood Urea Nitrogen 114 mg/dl (6-23); Calcium 7.3 mg/dl (8.6-10.3); Carbon Dioxide 27 mmol/L (21-32); Chloride 107 mmol/L (98-107); Creatinine Clr Calc Pharmacy 13.7 ml/min; Est GFR (African American) 12.6 ml/min; Est GFR (Non-African American) 10.8 ml/min; Glucose 150 mg/dl (70-99(Fasting)); Iron 19 mcg/dl (35-175); Sodium 143 mmol/L (136-145); Unsaturated Iron Binding Cap < 55 mcg/dl (155-355)
[2023-03-21] MEDS: LANSOPRAZOLE 30 MG SOLTAB PEG SCH ×2 (08:26→20:06)
--- NOTE | 2023-03-21 09:13 | Hospitalist Progress Note ---
Date of Service March 21, 2023 Assessment & Plan (1) Septic shock: (2) Acute hypernatremia: (3) Acute renal failure (ARF): (4) Anemia: (5) Wounds and injuries: (6) Severe protein-calorie malnutrition: Plan Patient is an 87 yr male presents from [facility] with septic shock, renal failure. Pt was intubated. Admitting team confirmed No CPR, defibrillation, cardioversion in the event of cardiac arrest. Palliative care evaluated. He is being managed for the following: Septic Shock with staph ([employer] not lugdunensis) bacteremia: possible sources include skin vs pneumonia and UTI with indwelling Ferris. Weaned off pressors and extubated 02/06. Pansensitive Klebsiella in sputum. Liliana in sputum likely a contaminant Urine Culture: Noncontributory (H/O chronic Ferris, recent h/o of UTI) ECHO: EF 50 to 55%, bioprosthetic aortic valve, mild mitral regurgitation, grade 2 diastolic dysfunction, mild tricuspid regurgitation High risk for aspiration pneumonia. Known recent month long admission with urosepsis Repeat blood cultures were negative. Initially admitted on Vanc/Zosyn 02/03 Plan will be total 6 weeks of Vancomycin with rifampin added from 02/16/23 with surveillance cultures (2 sets from the periphery) 5-7 days post completion of abx therapy. End date 04/02/2023. Switched vanco to daptomycin, given worsened renal function. This was discussed with Dr. Delgado on 03/15 Discussed with the about discharging him on approval to go to the [facility]-awaiting placement Continue wound care for decubitus ulcers Continue air mattress Candiduria Catheter changed and repeat test came back positive for Liliana Urine culture growing Liliana albicans Started on Diflucan through the G-tube Discussed w/ ID - do not believe this needs treatment - diflucan stopped Acute Renal Failure: present at admission which was resolved. Had another bump in Cr on 02/20, d/w nephro - no ivf/avoid nephrotoxics/hold vanc until acceptable trough level achieved. Renal function slowly worsened likely related to ATN - BUN also rising and HD not advised - discussed w/ nephrology and on multiple occasions- pt's wishes to proceed w/ HD - HD catheter placed this AM (03/20/2023), cont HD per nephrology. Daily labs Anemia: Hemoglobin >6.8, likely multifactorial etiology. Iron deficiency present. Poor nutrition does not help. Cont iron supplementation and proper nutrition. He notably remains very malnourished evidenced by wasting and edema of feet/hands Hb has periodically dropped in the last week and he has received multiple blood transfusions. He is requiring an additional unit of blood today, that was given through dialysis. Severe protein calorie malnutrition H/O Esophageal dysmotility Dysphagia: Speech therapy involved in his care this admission. Palliative care involved, Patient's POA now agreeing to no escalation of care (pressors, CPR, intubation). She declined COURT. However, POA would like PEG feeds. PEG placed 02/14-tolerating feeds without residual Remains high risk for aspiration [facility] cannot accept him back with PEG in place PEG feed held due to vomiting, then resumed at low rate Keep HOB at 30 degrees/aspiration precautions. No problem with the PEG feeding-electrolytes unremarkable Continue with the PEG tube feeding Acute hypoxic respiratory failure Secondary to left lower lobe pneumonia likely due to aspiration Was weaned down to 2L NC O2, had vomiting and aspiration event 02/19, TF was held, and unasyn added 02/20. Repeat -chest x-ray showing cardiomegaly with pulmonary edema and a small pleural effusion Given Lasix as needed Wean off of supplemental oxygen as able Currently on 4 L supplemental oxygen 03/15 - tachypneic pulm congestion on CXR (pt received IVF earlier to see if it helps with his worsening renal function). IVF stopped, and free water decreased. Pt also needed blood transfusion and so IV lasix given as well. Cont. to closely monitor / pt continues to be tachypneic, oxygen requirement unchanged - 4L 5/ after catheter placed - pt more rhonchous, suctioning provided by nursing staff, placed on oxymask 03/21 breathing comfortably post HD but still with a significant oxygen requirement. Remains a very high aspiration risk. Acute metabolic encephalopathy/known Dementia Secondary to above, in setting of Lewy body dementia and Hypernatremia (Na was 164 on admission 02/03), sodium now normal - 144 CT head: No significant change compared to the prior study. No acute intracranial abnormality. Elev. troponin: Troponin level 400's on admission - likely type II VT, secondary to above. No further workup at this time. Acute Hypernatremia: resolved. Chronic Ferris/urinary retention: Ferris was replaced this admission. [facility] urology is aware of his need for follow-up. would like to consider TURP or other prostate surgery in the future For now, will cont with alpha-ban. The only one that will go through the PEG is terazosin This capsule has to be melted in warm water for 15 minutes and then given as a solution through the PEG. Ferris changed With culture grew Liliana albicans and started on oral Diflucan (now stopped) Decubitus ulcers: Multiple sites of ulceration with necrosis There are multiple pressure sites for skin breakdown This was a possible source for his sepsis this admission Wound care nurse consulted. 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 He continues to be nonverbal with very limited movements He is now on renal replacement therapy and underwent dialysis this afternoon Received 1 unit of blood while on the dialyzer He is oxygenating 90% on 6 LPM via oxymask He continues to eat via tube feeds and had a BM when he returned from dialysis this evening. Review of Systems Review of Systems: unable to determine ROS as patient is nonverbal Physical Exam Physical Exam: CONSTITUTIONAL: WNWD, vitals as above, generally ill appearing, elderly, deconditioned, NAD EYES: normal conjunctivae, no scleral icterus ENT: external ear and nose normal, oral mucosa is dry, poor dentition. NECK: trachea midline RESPIRATORY: clear to auscultation bilaterally, no crackles, rales or wheezes, normal respiratory effort (limited exam as patient not cooperative) CARDIOVASCULAR: regular rate and rhythm, S1 and 2 heard without murmurs, gallops or rubs, no JVD, no peripheral edema. CHEST: +pacemaker present. GASTROINTESTINAL: (exam very limited as patient is in position and resists repositioning) soft, nontender, +PEG tube MUSCULOSKELETAL: generalized weakness with stiffened arms and legs and resistance to repositioning, head is normocephalic and atraumatic, neck supple, normal palpation of chest wall without tenderness SKIN: warm and dry, multiple areas of skin breakdown on back area over pressure points. NEUROLOGIC: normal cognition, no tremor PSYCHIATRIC: alert but not tracking me with his eyes when I engage with him. Results & Data Results & Data Vital Signs (Past 12 Hours) Vital Signs Temp Pulse Pulse Resp BP BP Pulse Ox 03/21/23 07:33 37.1 C 72 24 119/67 91 03/21/23 03:51 37.8 C H 71 24 119/66 93 03/21/23 02:03 93 03/21/23 01:02 96 03/21/23 00:26 37.4 C 68 18 116/65 97 03/20/23 22:26 63 03/20/23 22:08 72 118/63 O2 Del Method O2 Flow Rate 03/21/23 07:33 Oxymask 6 03/21/23 03:51 Oxymask 6 03/21/23 02:03 Oxymask 6 03/21/23 01:02 Oxymask 10 03/21/23 00:26 Oxymask 03/20/23 22:26 03/20/23 22:08 Laboratory Results BMP 03/21/23 06:42 Sodium 143 Potassium 5.0 Chloride 107 Carbon Dioxide 27 BUN 114 H D Creatinine 4.53 H* D Glucose 150 H Calcium 7.3 L Medications Administered Current Inpatient Medications Albuterol (Albut/Ipratrop 3mg/0.5mg Neb 3 Ml Vial) 3 ml NEB Q4R PRN; Protocol PRN Reason: Shortness Of Breath Or Wheezing Stop: 03/22/23 02:59 Last Admin: 03/17/23 14:00 Dose: 3 ml Epoetin Oziel (Epoetin Oziel 10,000 Units/Ml Vial) 10,000 units IV 0800 FERNIE Stop: 03/21/23 16:00 Furosemide (Furosemide 40 Mg/4 Ml Vial) 40 mg IV ONE PRN PRN Reason: prior to blood transfusion Stop: 04/14/23 11:35 Guaifenesin (Guaifenesin Sugar Free 200 Mg/10 Ml Udc) 200 mg PO Q6H FERNIE Stop: 04/13/23 09:59 Last Admin: 03/21/23 03:50 Dose: 200 mg Heparin Sodium (Beef Lung) (Heparin 10 Unit/Ml 5 Ml Flush) 5 ml FLUSH PRN PRN PRN Reason: Flush Stop: 04/08/23 15:32 Last Admin: 03/19/23 14:01 Dose: 5 ml Daptomycin 800 mg/ Syringe 16 mls @ 8 mls/min IV Q48H FERNIE; Protocol Stop: 03/30/23 23:59 Last Admin: 03/19/23 14:01 Dose: 8 mls/min Sodium Chloride (Nss 1000ml) 1,000 mls @ 0 mls/hr IV .Q0M PRN PRN Reason: For Hemodialysis Use ONLY Stop: 03/21/23 13:59 Iron Sucrose 100 mg/ Syringe 5 mls @ 1 mls/min IV 0800 FERNIE Stop: 03/21/23 16:00 Lansoprazole (Lansoprazole 30 Mg Soltab) 30 mg PEG BID FERNIE Stop: 04/03/23 20:59 Last Admin: 03/21/23 08:26 Dose: 30 mg Nutritional Formula (Nutren Liqd 2.0 1,000 Ml Bag) 1,000 ml PEG UD FERNIE; Protocol Stop: 03/22/23 15:44 Last Admin: 03/20/23 20:40 Dose: 1,000 ml Rifampin (Rifampin 600mg/60ml Udp) 600 mg PEG Q24H FERNIE Stop: 03/30/23 17:59 Last Admin: 03/20/23 20:39 Dose: 600 mg Sterile Water (Tube Feeding Water Flush) 150 ml PEG Q4 FERNIE Stop: 04/14/23 11:59 Last Admin: 03/21/23 08:26 Dose: 150 ml Terazosin HCl (Terazosin Hcl 1 Mg Cap) 2 mg PO HS FERNIE Stop: 03/22/23 20:59 Last Admin: 03/20/23 20:39 Dose: 2 mg
--- NOTE | 2023-03-21 10:04 | Nephrology Progress Note ---
Date of Service March 21, 2023 Assessment & Plan (1) Acute renal failure (ARF): Plan: Nephrology following for multiple episodes of acute kidney injury this admission. Earlier this admission he had prerenal HERSON with peak creatinine 5.6 February 04; improved to approximately 1.2-1.3 creatinine then recurrent acute kidney injury in the setting of aspiration pneumonia diagnosis and therapy February 20 w/ creatinine going from 1 > 1.7 in 24 hrs and then plateau'd at about 2 since February 21; not oliguric; did require Ferris replacement in this timeframe. Now having another episode of ARF suspect from ischemic ATN related to anemia and to hypotension 03/14 and 03/15 >> unfortunately progressed to need for acute dialysis, first tx 03/20 Hgb is low and he now has some Pulm edema + Aspiration pneumonitis on CXR No iv fluid. exceptionally poor dialysis candidate > risk of recurrent bacteremia, bleeding, challenges maintaining dialysis access/ patient position for treatment particularly w/ his contractures and wounds. that said, there is no strict contraindication to [employer] though I personally believe it will diminish further the already poor quality of the time he has left. >> POA states that this pt would want dialysis in current clinical circumstances; emphasizes moving forward with [employer] woudl accord w/ his wishes duration of dialysis need unclear; monitor for recovery though I have concerns he may not recover easily >HD today and evaluate for tx again tomorrow then rest depending on clinical status -mini heparin and epo w/ HD >don't see much I can concentrate in terms of meds >> dapto is only 16 ml/48 hrs; will discuss lower FW flushes w/ dietary at least temporarily Per infectious diseases recommendations, he is on 6 weeks of empiric vancomycin with rifampin > daptomycin through April 02; had planned also after this to follow indefinitely with antibiotic suppression doxycycline 100 mg twice daily due to concern for possible CIED infection or endocarditis -avoid further IV contrast for now unless life/limb saving -appreciate nutrition /dietary close follow up -would not give lasix at this time unless respiratory status worsening > if needed would give 100 mg IV -avoid NSAID >daily bmp, cbc and continue to quantify UOP >continue to discuss goals of care Admission and Anticipated Discharge Date Admission Date: February 03, 2023 Subjective tolerated first HD tx yesterday; t max ON 37.8 but RN reported F as well. hospitalist attrib to aspiration PNA Review of Systems Review of Systems: Unobtainable due to cognitive status Physical Exam Constitutional: well developed, + cachectic and + frail appearing; no acute distress (moans first ever for me) ENMT: Mouth: + dry oral mucous membranes and + poor dentition Respiratory: normal respiratory effort Auscultation: + diminished lung sounds, + crackles and + rhonchi (wet) Cardiovascular: Rate/Rhythm: regular rate and regular rhythm Extremities: + edema (trace on R at most; no L) Gastrointestinal (Abdomen): Inspection/Auscultation: normal bowel sounds and + scaphoid (PEG present) Results & Data Vital Signs (Past 12 Hours) Vital Signs Temp Pulse Pulse Resp BP BP Pulse Ox 03/21/23 07:33 37.1 C 72 24 119/67 91 03/21/23 03:51 37.8 C H 71 24 119/66 93 03/21/23 02:03 93 03/21/23 01:02 96 03/21/23 00:26 37.4 C 68 18 116/65 97 03/20/23 22:26 63 03/20/23 22:08 72 118/63 O2 Del Method O2 Flow Rate 03/21/23 07:33 Oxymask 6 03/21/23 03:51 Oxymask 6 03/21/23 02:03 Oxymask 6 03/21/23 01:02 Oxymask 10 03/21/23 00:26 Oxymask 03/20/23 22:26 03/20/23 22:08 Laboratory Results 03/20/23 07:28 03/21/23 06:42 Diagnostic Findings cxr 1. Significant increase in left hemithorax opacification which likely reflects a left pleural effusion, at least moderate in size and possibly loculated, and associated pneumonia or atelectasis. 2. Interstitial thickening within the right lung. This favors pulmonary edema. 3. Right infrahilar opacity which could reflect superimposed pneumonia.
[2023-03-21 11:06] LABS: Basophils # (auto) 0.04 K/uL (0-0.2); Basophils % (auto) 0.4 %; Eosinophils # (auto) 0.29 K/uL (0-0.50); Eosinophils % (auto) 2.6 %; Immature Granulocytes # (auto) 0.08 K/uL (0.01-0.20); Immature Granulocytes % (auto) 0.7 %; Lymphocytes # (auto) 0.94 K/uL (1.2-3.4); Lymphocytes % (auto) 8.6 %; Mean Platelet Volume 11.1 fL (9.4-12.4); Monocytes # (auto) 0.85 K/uL (0.11-0.59); Monocytes % (auto) 7.7 %; Neutrophils # (auto) 8.77 K/uL (1.40-6.50); Platelet Count 294 K/uL (130-400); White Blood Count 10.97 K/ul (4.8-10.8)
[2023-03-21 11:08] LABS: Hematocrit (blood only) 21.5 % (42.0-52.0); Hemoglobin 6.8 g/dl (14.0-18.0); Mean Corpuscular Hemoglobin 30.2 pg (25.0-34.0); Mean Corpuscular Hgb Conc 31.6 g/dL (32.0-36.0); Mean Corpuscular Volume 95.6 fL (80.0-100.0); RDW Coefficient of Variation 15.9 % (11.5-14.5); RDW Standard Deviation 54.2 fL (36.4-46.3); Red Blood Count 2.25 M/uL (4.70-6.10)
[2023-03-21 11:30] LABS: RBC Morphology Unremarkable
[2023-03-21] MEDS ORDERED: SODIUM CHLORIDE 0.9% 250 ML IV PRN (11:47)
[2023-03-21] MEDS: NOVASOURCE RENAL 2.0 CAL 1000ML BAG GT SCH (14:00)
[2023-03-21] MEDS: DAPTOmycin 800 MG in SYRINGE 0 ML IV SCH (16:22)
[2023-03-21] MEDS ORDERED: FUROSEMIDE 10 MG/ML 10 ML VIAL IV ONE (17:39)
--- NOTE | 2023-03-21 17:39 | Dialysis Progress Note ---
Date of Service March 21, 2023 Assessment & Plan (1) Acute renal failure (ARF): Plan: Nephrology following for multiple episodes of acute kidney injury this admission. Earlier this admission he had prerenal HERSON with peak creatinine 5.6 February 04; improved to approximately 1.2-1.3 creatinine then recurrent acute kidney injury in the setting of aspiration pneumonia diagnosis and therapy February 20 w/ creatinine going from 1 > 1.7 in 24 hrs and then plateau'd at about 2 since February 21; not oliguric; did require Ferris replacement in this timeframe. Now having another episode of ARF suspect from ischemic ATN related to anemia and to hypotension 03/14 and 03/15 >> unfortunately progressed to need for acute dialysis, first tx 03/20 He had creat of 6 on admission which recovered initially then worsened again Not oliguric so far but UOP has dropped some Hgb is low again and he now has some Pulm edema + Aspiration pneumonitis on CXR No iv fluid. w/ worse /ongoing hypoxia will give lasix this evening exceptionally poor dialysis candidate > risk of recurrent bacteremia, bleeding, challenges maintaining dialysis access/ patient position for treatment pa rticularly w/ his contractures. that said, there is no strict contraindication to NOCTURNIST though I personally believe it will diminish further the already poor quality of the time he has left. I spent about 20 minutes reviewing renal care w/ POA today >> she takes pains to tell me that she believes the patient would have wanted dialysis in the current circumstances; also mentions her dismay at patient's "suffering" after surgery yesterday w/ increased hypoxia > moving forward with NOCTURNIST as per her directive duration of dialysis need unclear; monitor for recovery though I have concerns he may not recover easily >HD today and again either tomorrow or Saturday then rest depending on clinical status -epo w/ HD >for pRBC today d/t recurrent anemia >>will also give lasix given ongoing hypoxia after pRBC this evening >agree w/ change in TF to novasource >> would hope to lower total volume and give more protein Per infectious diseases recommendations, he is on 6 weeks of empiric vancomycin with rifampin > daptomycin through April 02; had planned also after this to follow indefinitely with antibiotic suppression doxycycline 100 mg twice daily due to concern for possible CIED infection or endocarditis -avoid further IV contrast for now unless life/limb saving -appreciate nutrition /dietary close follow up -would not give lasix at this time unless respiratory status worsening > if needed would give 40 mg IV -would not give IV fluids at this time -avoid NSAID >daily bmp, cbc and continue to quantify UOP >continue to discuss goals of care Admission and Anticipated Discharge Date Admission Date: February 03, 2023 Subjective pt seen and evaluated on HD at approximately noon; tolerating procedure well at time I saw him; for pRBC today Review of Systems Review of Systems: All systems reviewed & are unremarkable except as noted in Subjective Physical Exam Constitutional: well developed, + cachectic and + frail appearing; no acute distress ENMT: Mouth: + dry oral mucous membranes and + poor dentition Respiratory: normal respiratory effort Auscultation: + diminished lung sounds Cardiovascular: Rate/Rhythm: regular rate and regular rhythm Extremities: + edema (trace on R at most; no L) Gastrointestinal (Abdomen): Inspection/Auscultation: normal bowel sounds and + scaphoid (PEG present) Results & Data Vital Signs (Past 12 Hours) Vital Signs Temp Pulse Pulse Pulse Resp BP BP 03/21/23 16:00 74 03/21/23 16:06 37.1 C 72 20 03/21/23 15:26 36.6 C 67 119/61 03/21/23 15:00 36.6 C 67 130/67 03/21/23 15:00 36.6 C 67 18 130/67 03/21/23 14:45 36.6 C 63 18 110/68 03/21/23 14:30 36.6 C 69 18 111/66 03/21/23 14:30 36.6 C 69 111/66 03/21/23 14:15 36.6 C 75 18 105/62 03/21/23 14:00 36.8 C 71 18 114/68 03/21/23 14:00 71 114/68 03/21/23 13:30 71 97/57 L 03/21/23 13:00 68 100/53 L 03/21/23 12:30 79 112/61 03/21/23 13:50 36.8 C 71 18 110/69 03/21/23 12:18 36.8 C 68 03/21/23 08:00 70 03/21/23 07:33 37.1 C 72 24 119/67 BP Pulse Ox O2 Del Method O2 Flow Rate 05/04/23 16:00 03/21/23 16:06 140/73 90 Oxymask 6 03/21/23 15:26 03/21/23 15:00 03/21/23 15:00 91 6 03/21/23 14:45 91 6 03/21/23 14:30 91 6 03/21/23 14:30 03/21/23 14:15 91 6 03/21/23 14:00 91 6 03/21/23 14:00 03/21/23 13:30 03/21/23 13:00 03/21/23 12:30 03/21/23 13:50 91 6 03/21/23 12:18 03/21/23 08:00 03/21/23 07:33 91 Oxymask 6 Laboratory Results 03/21/23 06:56 03/21/23 06:42
[2023-03-21] MEDS ORDERED: FUROSEMIDE 40 MG/4 ML VIAL IV ONE (18:30)
[2023-03-21] MEDS: RIFAMPIN PEG SCH (20:05)
[2023-03-21] MEDS: TERAZOSIN HCL 1 MG CAP PO SCH (20:07)
[2023-03-21] MEDS ORDERED: ACETAMINOPHEN 325 MG TAB PO PRN (23:54)
[2023-03-22] MEDS ORDERED: ERTAPENEM SODIUM 500 MG in SYRINGE 0 ML IV SCH (01:00)
[2023-03-22 01:17] LABS: Appearance Urine Turbid (Clear); Bacteria Urine Automated Negative (Negative); Bilirubin Urine Negative (Negative); Blood Urine 2+ (Negative); Color Urine Dark Yellow; Epithelial Cell Urine Auto >30 /lpf (0-5); Glucose Urine UA Negative (Negative); Ketones Urine Negative (Negative); Leukocyte Esterase Urine 3+ (Negative); Nitrite Urine Negative (Negative); Protein Urine 2+ (Negative); Urobilinogen Urine Negative (Negative); WBC Urine Automated >30 /hpf (0-5)
[2023-03-22 01:30] LABS: RBC Urine Automated 0-4 /hpf (0-4)
[2023-03-22] MEDS: ACETAMINOPHEN SUSP 325 MG/10.15 ML UDC PEG PRN ×2 (01:37→23:56)
[2023-03-22 01:46] LABS: Hematocrit (blood only) 22.7 % (42.0-52.0); Hemoglobin 7.3 g/dl (14.0-18.0); Mean Corpuscular Hemoglobin 29.9 pg (25.0-34.0); Mean Corpuscular Hgb Conc 32.2 g/dL (32.0-36.0); Platelet Count 274 K/uL (130-400); RDW Coefficient of Variation 16.3 % (11.5-14.5); RDW Standard Deviation 53.8 fL (36.4-46.3); Red Blood Count 2.44 M/uL (4.70-6.10); White Blood Count 10.38 K/ul (4.8-10.8)
[2023-03-22 02:04] LABS: BUN Creatinine Ratio 25.7 (10-20); Calcium 7.3 mg/dl (8.6-10.3); Creatinine Clr Calc Pharmacy 18.3 ml/min; Est GFR (African American) 17.8 ml/min; Est GFR (Non-African American) 15.4 ml/min; Potassium 4.2 mmol/L (3.5-5.1)
[2023-03-22] MEDS ORDERED: HYDROmorphone INJ 0.5 MG/0.5 ML SYR IV STA (02:42)
[2023-03-22] MEDS ORDERED: ALBUT/IPRATROP 3MG/0.5MG NEB 3 ML VIAL NEB STA (02:49)
[2023-03-22] MEDS ORDERED: methylPREDNISolone 20 MG in SYRINGE 0 ML IV ONE (03:00)
[2023-03-22 03:31] LABS: Base Excess ABG 3.7 mEq/L (-9-1.8); HCO3 ABG 28 mmol/L (19-24); Oxygen Saturation ABG 99.2 % (90-95); PCO2 ABG 39 mmHg (35-46); PO2 ABG 139 mmHg (80-95); pH ABG 7.46 (7.35-7.45)
[2023-03-22 03:38] LABS: Allen Test Pos (Pos)
[2023-03-22 04:38] LABS: Magnesium 1.9 mg/dl (1.7-2.4)
[2023-03-22] MEDS: TUBE FEEDING WATER FLUSH PEG SCH ×6 (05:02→23:51)
[2023-03-22] MEDS: guaiFENesin SUGAR FREE 200 MG/10 ML UDC PO SCH ×4 (05:02→22:10)
--- NOTE | 2023-03-22 06:52 | Communication Note ---
Date of Service: March 22, 2023 Patient noted to be febrile as per RN. No diarrhea as per RN. Increasing O2 sat requirement and some shortness of breath. Patient with cough symptoms. RN able to suction thick light millan sputum. Chest x-ray as per my interpretation : cardiomegaly; infiltrate progressive atelectasis, pleural effusion left AP Sepsis secondary to HCAP likely aspiration Patient known to be aspiration risk. CS, Ertapenem Suction secretions as needed
--- NOTE | 2023-03-22 06:58 | XRay Report ---
XR chest 1V portable CLINICAL HISTORY: fever, low o2 COMPARISON STUDY: Chest radiograph March 15, 2023. Chest CT August 27, 2021. FINDINGS: Dual lumen right internal jugular [id number], left subclavian pacer and median sternotom y wires are noted. There is no pneumothorax. Left hemithoracic opacification has significantly increa sed since prior examination. This favors a left pleural effusion, at least moderate in size. This may be loculated. Interstitial thickening is noted within the lungs. There is right infrahilar opacity. Cardiomegaly is unchanged. IMPRESSION: 1. Significant increase in left hemithorax opacification which likely reflects a left pleural effusio n, at least moderate in size and possibly loculated, and associated pneumonia or atelectasis. 2. Interstitial thickening within the right lung. This favors pulmonary edema. 3. Right infrahilar opacity which could reflect superimposed pneumonia. ACT 112: Negative or not required by law. Electronically signed by: Nolberto Alexandre M.D. 03/22/2023 6:56 AM
[2023-03-22] MEDS ORDERED: SODIUM CHLORIDE 0.9% 1000ML 1,000 ML IV PRN (07:20)
[2023-03-22] MEDS ORDERED: EPOETIN ALFA 10,000 UNITS/ML VIAL IV ONE (07:20)
[2023-03-22] MEDS ORDERED: HEPARIN SOD (PORCINE) 1000 UNIT/ML IV ONE (07:20)
[2023-03-22] MEDS ORDERED: IRON SUCROSE 100 MG in SYRINGE 0 ML IV ONE (07:30)
[2023-03-22] MEDS: LANSOPRAZOLE 30 MG SOLTAB PEG SCH ×2 (08:29→20:20)
[2023-03-22] MEDS: NOVASOURCE RENAL 2.0 CAL 1000ML BAG GT SCH (11:31)
[2023-03-22] MEDS: CARBIDOPA/LEVODOPA 25/100MG TAB PEG SCH ×2 (12:07→20:20)
[2023-03-22] MEDS: DONEPEZIL HCL 5 MG TAB PO SCH (12:07)
[2023-03-22 13:17] LABS: HBSAG NON-REACTIVE (NON-REACTIVE); Hepatitis B Core Antibody Total REACTIVE (NON-REACTIVE); Hepatitis B Surface Ab, Quant 35 mIU/mL (> OR = 10)
[2023-03-22] MEDS ORDERED: SCOPOLAMINE 1 MG TDSY TD SCH (14:00)
--- NOTE | 2023-03-22 15:11 | Palliative Care Progress Note ---
Date of Service March 22, 2023 Assessment & Plan (1) Palliative care encounter: Plan: I met with Audelia at bedside. She is pleased that he is getting dialysis and has seen improvement in labs. She feels that he is more able to interact with her. We discussed concern that he is still very ill and that there will be bad days and better days. She tells me that she realizes that if Jules is unable to tolerate dialysis, that is the end of his life. She tells me that if his heart stops, she accepts that he will and does not want resuscitation. She expressed concern about him suffering if he is unable to tolerate dialysis and we discussed comfort measures. I assured her that we will do everything we can to relieve his discomfort and help him peacefully. She feels that if he is unable to tolerate dialysis, she will know that she has done everything she can for him. Discussed with Dr. Junior. Admission and Anticipated Discharge Date Admission Date: February 03, 2023 Subjective No response to voice or touch. No facial grimace. Tachpnea at times. Review of Systems Review of Systems: Unobtainable due to cognitive status Physical Exam Constitutional: + ill appearing ENMT: Mouth: + dry oral mucous membranes Respiratory: normal respiratory effort; no labored breathing Results & Data Vital Signs (Past 12 Hours) Vital Signs Temp Pulse Pulse Resp BP Pulse Ox O2 Del Method 03/22/23 12:26 97.7 F 64 20 143/83 H 96 Oxymask 03/22/23 10:11 Oxymask 03/22/23 08:51 72 03/22/23 08:13 97.9 F 66 20 109/56 L 96 Oxymask 03/22/23 03:39 77 28 H 97 Nasal Cannula O2 Flow Rate 03/22/23 12:26 4.0 03/22/23 10:11 4 03/22/23 08:51 03/22/23 08:13 4.0 03/22/23 03:39 4 PG Care Time/CCT Total # of Minutes Spent Total Time Spent with Patient: Total time spent is greater than 50% in coordination of care (as documented) at patient's floor/unit and/or counseling patient: Coding Level of Care Code 81951 SUB INP/OBS CARE 2/35MIN Diagnoses Palliative care encounter Z51.5
[2023-03-22] MEDS: CHECK SCOPOLAMINE PATCH PLACEMENT SCH ×2 (15:35→23:51)
[2023-03-22] MEDS: HEPARIN SOD (PORCINE) 1000 UNIT/ML IV SCH (17:07)
--- NOTE | 2023-03-22 17:26 | Hospitalist Progress Note ---
Date of Service March 22, 2023 Assessment & Plan (1) Septic shock: (2) Acute hypernatremia: (3) Acute renal failure (ARF): (4) Anemia: (5) Wounds and injuries: (6) Severe protein-calorie malnutrition: Plan 03/22: Pt appears more tachypneic and diaphoretic today. He appears to be in distress with air hunger. He is not able to communicate. Going for hemodialysis this afternoon. Asked palliative to continue to readdress goals of care with as he appears significantly worse today. As a result of fever overnight, he was placed on ertapenem. ID is unavailable for consultation or recs at this time. Will transition ertapenem to renal dosed cefepime. Cont daptomycin and rifampin per prior ID recs. Also, several medications auto- stopped in the last couple of days and these were restarted today. Patient is an 87 yr male presents from [facility] with septic shock, renal failure. Pt was intubated. Admitting team confirmed No CPR, defibrillation, cardioversion in the event of cardiac arrest. Palliative care evaluated. He is being managed for the following: Septic Shock with staph ([employer] not lugdunensis) bacteremia: possible sources include skin vs pneumonia and UTI with indwelling Ferris. Weaned off pressors and extubated 02/06. Pansensitive Klebsiella in sputum. Liliana in sputum likely a contaminant Urine Culture: Noncontributory (H/O chronic Ferris, recent h/o of UTI) ECHO: EF 50 to 55%, bioprosthetic aortic valve, mild mitral regurgitation, grade 2 diastolic dysfunction, mild tricuspid regurgitation High risk for aspiration pneumonia. Known recent month long admission with urosepsis Repeat blood cultures were negative. Initially admitted on Vanc/Zosyn 02/03 Plan will be total 6 weeks of Vancomycin with rifampin added from 02/16/23 with surveillance cultures (2 sets from the periphery) 5-7 days post completion of abx therapy. End date 04/02/2023. Switched vanco to daptomycin, given worsened renal function. This was discussed with Dr. Delgado on 03/15 Discussed with the about discharging him on approval to go to the [facility]-awaiting placement Continue wound care for decubitus ulcers Continue air mattress Candiduria Catheter changed and repeat test came back positive for Liliana Urine culture growing Liliana albicans Started on Diflucan through the G-tube Discussed w/ ID - do not believe this needs treatment - diflucan stopped Acute Renal Failure: present at admission which was resolved. Had another bump in Cr on 02/20, d/w nephro - no ivf/avoid nephrotoxics/hold vanc until acceptable trough level achieved. Renal function slowly worsened likely related to ATN - BUN also rising and HD not advised - discussed w/ nephrology and on multiple occasions- pt's wishes to proceed w/ HD - HD catheter placed this AM (03/20/2023), cont HD per nephrology. Daily labs Anemia: Hemoglobin >6.8, likely multifactorial etiology. Iron deficiency present. Poor nutrition does not help. Cont iron supplementation and proper nutrition. He notably remains very malnourished evidenced by wasting and edema of feet/hands Hb has periodically dropped in the last week and he has received multiple blood transfusions. He is requiring an additional unit of blood today, that was given through dialysis. Severe protein calorie malnutrition H/O Esophageal dysmotility Dysphagia: Speech therapy involved in his care this admission. Palliative care involved, Patient's POA now agreeing to no escalation of care (pressors, CPR, intubation). She declined COURT. However, POA would like PEG feeds. PEG placed 02/14-tolerating feeds without residual Remains high risk for aspiration [facility] cannot accept him back with PEG in place PEG feed held due to vomiting, then resumed at low rate Keep HOB at 30 degrees/aspiration precautions. No problem with the PEG feeding-electrolytes unremarkable Continue with the PEG tube feeding Acute hypoxic respiratory failure Secondary to left lower lobe pneumonia likely due to aspiration Was weaned down to 2L NC O2, had vomiting and aspiration event 02/19, TF was held, and unasyn added 02/20. Repeat -chest x-ray showing cardiomegaly with pulmonary edema and a small pleural effusion Given Lasix as needed Wean off of supplemental oxygen as able Currently on 4 L supplemental oxygen 03/15 - tachypneic pulm congestion on CXR (pt received IVF earlier to see if it helps with his worsening renal function). IVF stopped, and free water decreased. Pt also needed blood transfusion and so IV lasix given as well. Cont. to closely monitor 03/19 pt continues to be tachypneic, oxygen requirement unchanged - 4L 03/20 after catheter placed - pt more rhonchous, suctioning provided by nursing staff, placed on oxymask / breathing comfortably post HD but still with a significant oxygen requirement. Remains a very high aspiration risk. Acute metabolic encephalopathy/known Dementia Secondary to above, in setting of Lewy body dementia and Hypernatremia (Na was 164 on admission 02/03), sodium now normal - 144 CT head: No significant change compared to the prior study. No acute intracranial abnormality. Elev. troponin: Troponin level 400's on admission - likely type II [place], secondary to above. No further workup at this time. Acute Hypernatremia: resolved. Chronic Ferris/urinary retention: Ferris was replaced this admission. [facility] urology is aware of his need for follow-up. would like to consider TURP or other prostate surgery in the future For now, will cont with alpha-ban. The only one that will go through the PEG is terazosin This capsule has to be melted in warm water for 15 minutes and then given as a solution through the PEG. Ferris changed With culture grew Liliana albicans and started on oral Diflucan (now stopped) Decubitus ulcers: Multiple sites of ulceration with necrosis There are multiple pressure sites for skin breakdown This was a possible source for his sepsis this admission Wound care nurse consulted. 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 Hospitalist Admission and Anticipated Discharge Date Admission Date: February 03, 2023 Subjective 87 yo M admitted for prolonged hospital stay after sepsis. He continues to be nonverbal with very limited movements He is now on renal replacement therapy and underwent dialysis this afternoon He continues to have hypoxia, oxygenating 96% on 4LPM and he is now tachypneic and diaphoretic He is unable to respond meaningfully at all during exam I had an extensive conversation with his regarding his dying state I told her I felt strongly that we were prolonging his suffering She said "yes, ok" multiple times but remains fixated on providing him frequent deep suctionin gand dental care at the bedside because she is a dentist I explained to her that she may not perform dental cleanings or procedures on him as she is not a credentialed provider at this hospital. She seemed to understand my communication, but states that she wants at least one week more to see how the hemodiaysis will help things. I explained to her it will be important to take things one day at a time. Review of Systems Review of Systems: unable to determine ROS as patient is nonverbal Physical Exam Physical Exam: CONSTITUTIONAL: WNWD, vitals as above, ill appearing, ,tachypneic. Diaphoretic. EYES: normal conjunctivae, no scleral icterus ENT: external ear and nose normal, oral mucosa is dry, poor dentition. NECK: trachea midline RESPIRATORY: clear to auscultation bilaterally, no crackles, rales or wheezes, normal respiratory effort (limited exam as patient not cooperative) CARDIOVASCULAR: regular rate and rhythm, S1 and 2 heard without murmurs, gallops or rubs, no JVD, peripheral edema present in bilateral hands and feet. CHEST: +pacemaker present. GASTROINTESTINAL: (exam very limited as patient is in position and resists repositioning) soft, nontender, +PEG tube MUSCULOSKELETAL: generalized weakness with stiffened arms and legs and re sistance to repositioning, head is normocephalic and atraumatic, neck supple, normal palpation of chest wall without tenderness SKIN: warm and dry, multiple areas of skin breakdown on back area over pressure points. NEUROLOGIC: awake but no meaningful communication with him, he will not follow commands, very limited exam as a result. PSYCHIATRIC: alert but not tracking me with his eyes when I engage with him. Results & Data Results & Data Vital Signs (Past 12 Hours) Vital Signs Temp Pulse Pulse Pulse Resp BP BP 03/22/23 17:00 66 141/74 H 03/22/23 16:30 71 133/80 03/22/23 16:00 68 138/72 03/22/23 15:30 68 147/78 H 03/22/23 15:11 71 136/80 03/22/23 15:04 36.6 C 79 03/22/23 12:26 36.5 C 64 20 143/83 H 03/22/23 10:11 03/22/23 08:51 72 03/22/23 08:13 36.6 C 66 20 109/56 L Pulse Ox O2 Del Method O2 Flow Rate 03/22/23 17:00 03/22/23 16:30 03/22/23 16:00 03/22/23 15:30 03/22/23 15:11 03/22/23 15:04 03/22/23 12:26 96 Oxymask 4.0 03/22/23 10:11 Oxymask 4 03/22/23 08:51 03/22/23 08:13 96 Oxymask 4.0 Laboratory Results Short CBC 03/22/23 Range/Units 01:26 WBC 10.38 (4.8-10.8) K/ul Hgb 7.3 L (14.0-18.0) g/dl Hct 22.7 L (42.0-52.0) % Plt Count 274 (130-400) K/uL BMP 03/22/23 01:26 Sodium 140 Potassium 4.2 Chloride 105 Carbon Dioxide 27 BUN 87 H D Creatinine 3.39 H D Glucose 126 H Calcium 7.3 L Cardiac Enzymes 03/22/23 Range/Units 11:13 Total Creatine Kinase 34 (30-223) U/L Urine 03/22/23 Range/Units 00:54 Urine Color Dark Yellow Urine Appearance Turbid A (Clear) Urine pH 6.0 (4.5-7.5) Ur Specific [place] 1.010 (1.000-1.030) Urine Protein 2+ H (Negative) Urine Glucose (UA) Negative (Negative) Diagnostic Findings Chest X-Ray 03/22/23 00:07 XR chest 1V portable CLINICAL HISTORY: fever, low o2 COMPARISON STUDY: Chest radiograph March 15, 2023. Chest CT August 27, 2021. FINDINGS: Dual lumen right internal jugular [id number], left subclavian pacer and median sternotomy wires are noted. There is no pneumothorax. Left hemithoracic opacification has significantly increased since prior examination. This favors a left pleural effusion, at least moderate in size. This may be loculated. Interstitial thickening is noted within the lungs. There is right infrahilar opacity. Cardiomegaly is unchanged. IMPRESSION: 1. Significant increase in left hemithorax opacification which likely reflects a left pleural effusion, at least moderate in size and possibly loculated, and associated pneumonia or atelectasis. 2. Interstitial thickening within the right lung. This favors pulmonary edema. 3. Right infrahilar opacity which could reflect superimposed pneumonia. ACT 112: Negative or not required by law. Electronically signed by: Nolberto Alexandre M.D. 03/22/2023 6:56 AM Medications Administered Current Inpatient Medications Acetaminophen (Acetaminophen Susp 325 Mg/10.15 Ml Udc) 650 mg PEG Q6H PRN PRN Reason: fever/pain Stop: 04/20/23 23:54 Last Admin: 03/22/23 01:37 Dose: 650 mg Aspirin (Aspirin 81 Mg Chew) 81 mg PEG DAILY FERNIE Stop: 04/22/23 08:59 Carbidopa/Levodopa (Carbidopa/Levodopa 25/100mg Tab) 1 tab PEG BID FERNIE Stop: 04/21/23 10:59 Last Admin: 03/22/23 12:07 Dose: 1 tab Donepezil HCl (Donepezil Hcl 5 Mg Tab) 5 mg PO QAM FERNIE Stop: 04/21/23 10:59 Last Admin: 03/22/23 12:07 Dose: 5 mg Enteral Nutritional Formula (Novasource Renal 2.0 Jeremy 1000ml Bag) 0 ml GT UD FERNIE; Protocol Stop: 04/20/23 10:59 Last Admin: 03/22/23 11:31 Dose: 45 ml Furosemide (Furosemide 40 Mg/4 Ml Vial) 40 mg IV ONE PRN PRN Reason: prior to blood transfusion Stop: 04/14/23 11:35 Guaifenesin (Guaifenesin Sugar Free 200 Mg/10 Ml Udc) 200 mg PO Q6H FERNIE Stop: 04/13/23 09:59 Last Admin: 03/22/23 15:51 Dose: Not Given Heparin Sodium (Beef Lung) (Heparin 10 Unit/Ml 5 Ml Flush) 5 ml FLUSH PRN PRN PRN Reason: Flush Stop: 04/08/23 15:32 Last Admin: 03/21/23 21:52 Dose: 5 ml Daptomycin 800 mg/ Syringe 16 mls @ 8 mls/min IV Q48H FERNIE; Protocol Stop: 03/30/23 23:59 Last Admin: 03/21/23 16:22 Dose: 8 mls/min Ertapenem 500 mg/ Syringe 5 mls @ 2 mls/min IV Q24H FERNIE Stop: 03/29/23 00:59 Last Admin: 03/22/23 01:37 Dose: 2 mls/min Lansoprazole (Lansoprazole 30 Mg Soltab) 30 mg PEG BID FERNIE Stop: 04/03/23 20:59 Last Admin: 03/22/23 08:29 Dose: 30 mg Miscellaneous (Remove Transderm-Scop Patch) 1 each N/A Q72H FERNIE Stop: 04/24/23 13:44 Miscellaneous (Check Scopolamine Patch Placement) 1 each N/A QS FERNIE Stop: 04/21/23 15:59 Last Admin: 03/22/23 15:35 Dose: 1 each Rifampin (Rifampin 600mg/60ml Udp) 600 mg PEG Q24H FERNIE Stop: 03/30/23 17:59 Last Admin: 03/21/23 20:05 Dose: 600 mg Scopolamine (Scopolamine 1 Mg Tdsy) 1 mg TD Q72H FERNIE Stop: 04/21/23 13:59 Last Admin: 03/22/23 14:35 Dose: 1 mg Sterile Water (Tube Feeding Water Flush) 150 ml PEG Q4 FERNIE Stop: 04/14/23 11:59 Last Admin: 03/22/23 15:35 Dose: 150 ml Terazosin HCl (Terazosin Hcl 1 Mg Cap) 2 mg PO HS FERNIE Stop: 04/21/23 20:59 Last Admin: 03/21/23 20:07 Dose: 2 mg
[2023-03-22] MEDS: RIFAMPIN PEG SCH (18:35)
[2023-03-22] MEDS: CEFEPIME 1,000 MG in SYRINGE 0 ML IV SCH (18:35)
[2023-03-22] MEDS: TERAZOSIN HCL 1 MG CAP PO SCH (20:20)
[2023-03-23] MEDS: TUBE FEEDING WATER FLUSH PEG SCH ×6 (03:35→23:58)
[2023-03-23] MEDS: guaiFENesin SUGAR FREE 200 MG/10 ML UDC PO SCH ×4 (03:35→22:09)
[2023-03-23 07:00] LABS: Hematocrit (blood only) 23.3 % (42.0-52.0); Hemoglobin 7.4 g/dl (14.0-18.0); Mean Corpuscular Hgb Conc 31.8 g/dL (32.0-36.0); Mean Corpuscular Volume 94.3 fL (80.0-100.0); Mean Platelet Volume 10.6 fL (9.4-12.4); Platelet Count 251 K/uL (130-400); RDW Coefficient of Variation 16.2 % (11.5-14.5); RDW Standard Deviation 54.7 fL (36.4-46.3); Red Blood Count 2.47 M/uL (4.70-6.10); White Blood Count 13.04 K/ul (4.8-10.8)
[2023-03-23 07:16] LABS: BUN Creatinine Ratio 21.5 (10-20); Calcium 7.1 mg/dl (8.6-10.3); Creatinine Clr Calc Pharmacy 19.1 ml/min; Est GFR (African American) 18.8 ml/min; Est GFR (Non-African American) 16.2 ml/min; Potassium 4.2 mmol/L (3.5-5.1)
[2023-03-23] MEDS ORDERED: SODIUM CHLORIDE 0.9% 1000ML 1,000 ML IV PRN (07:31)
[2023-03-23] MEDS: ASPIRIN 81 MG CHEW PEG SCH (07:42)
[2023-03-23] MEDS: DONEPEZIL HCL 5 MG TAB PO SCH (07:43)
[2023-03-23] MEDS: CARBIDOPA/LEVODOPA 25/100MG TAB PEG SCH ×2 (07:43→21:44)
[2023-03-23] MEDS: LANSOPRAZOLE 30 MG SOLTAB PEG SCH ×2 (07:43→21:44)
[2023-03-23] MEDS: CHECK SCOPOLAMINE PATCH PLACEMENT SCH ×3 (07:44→23:58)
[2023-03-23] MEDS ORDERED: EPOETIN ALFA 10,000 UNITS/ML VIAL IV SCH (08:00)
[2023-03-23] MEDS ORDERED: IRON SUCROSE 100 MG in SYRINGE 0 ML IV SCH (08:00)
[2023-03-23] MEDS ORDERED: HEPARIN SOD (PORCINE) 1000 UNIT/ML IV SCH (08:00)
--- NOTE | 2023-03-23 08:34 | Hospitalist Progress Note ---
Date of Service March 23, 2023 Assessment & Plan (1) Septic shock: (2) Acute hypernatremia: (3) Acute renal failure (ARF): (4) Anemia: (5) Wounds and injuries: (6) Severe protein-calorie malnutrition: Plan 03/22: Pt appears more tachypneic and diaphoretic today. He appears to be in distress with air hunger. He is not able to communicate. Going for hemodialysis this afternoon. Asked palliative to continue to readdress goals of care with as he appears significantly worse today. As a result of fever overnight, he was placed on ertapenem. ID is unavailable for consultation or recs at this time. Will transition ertapenem to renal dosed cefepime. Cont daptomycin and rifampin per prior ID recs. Also, several medications auto- stopped in the last couple of days and these were restarted today. 03/23: Continues on broad spectrum abx, oxygen needs are still present but have stabilized. He continues to appear diaphoretic and tachypneic today. Cont hemodialysis per 's wishes and nephro recs. Transfer out of PCU with stable oxygen needs at this time. Patient is an 87 yr male presents from [facility] with septic shock, renal failure. Pt was intubated. Admitting team confirmed No CPR, defibrillation, cardioversion in the event of cardiac arrest. Palliative care evaluated. He is being managed for the following: Septic Shock with staph (MECHANICAL MAINTENANCE not lugdunensis) bacteremia: possible sources include skin vs pneumonia and UTI with indwelling Ferris. Weaned off pressors and extubated 02/06. Pansensitive Klebsiella in sputum. Liliana in sputum likely a contaminant Urine Culture: Noncontributory (H/O chronic Ferris, recent h/o of UTI) ECHO: EF 50 to 55%, bioprosthetic aortic valve, mild mitral regurgitation, grade 2 diastolic dysfunction, mild tricuspid regurgitation High risk for aspiration pneumonia. Known recent month long admission with urosepsis Repeat blood cultures were negative. Initially admitted on Vanc/Zosyn 02/03 Plan will be total 6 weeks of Vancomycin with rifampin added from 02/16/23 with surveillance cultures (2 sets from the periphery) 5-7 days post completion of abx therapy. End date 04/02/2023. Switched vanco to daptomycin, given worsened renal function. This was discussed with Dr. Delgado on 03/15 Discussed with the about discharging him on approval to go to the [facility]-awaiting placement Continue wound care for decubitus ulcers Continue air mattress Candiduria Catheter changed and repeat test came back positive for Liliana Urine culture growing Liliana albicans Started on Diflucan through the G-tube Discussed w/ ID - do not believe this needs treatment - diflucan stopped Acute Renal Failure: present at admission which was resolved. Had another bump in Cr on 02/20, d/w nephro - no ivf/avoid nephrotoxics/hold vanc until acceptable trough level achieved. Renal function slowly worsened likely related to ATN - BUN also rising and HD not advised - discussed w/ nephrology and on multiple occasions- pt's wishes to proceed w/ HD - HD catheter placed this AM (03/20/2023), cont HD per nephrology. Daily labs Anemia: Hemoglobin >6.8, likely multifactorial etiology. Iron deficiency present. Poor nutrition does not help. Cont iron supplementation and proper nutrition. He notably remains very malnourished evidenced by wasting and edema of feet/hands Hb has periodically dropped in the last week and he has received multiple blood transfusions. He is requiring an additional unit of blood today, that was given through dialysis. Severe protein calorie malnutrition H/O Esophageal dysmotility Dysphagia: Speech therapy involved in his care this admission. Palliative care involved, Patient's POA now agreeing to no escalation of care (pressors, CPR, intubation). She declined COURT. However, POA would like PEG feeds. PEG placed 02/14-tolerating feeds without residual Remains high risk for aspiration [facility] cannot accept him back with PEG in place PEG feed held due to vomiting, then resumed at low rate Keep HOB at 30 degrees/aspiration precautions. No problem with the PEG feeding-electrolytes unremarkable Continue with the PEG tube feeding Acute hypoxic respiratory failure Secondary to left lower lobe pneumonia likely due to aspiration Was weaned down to 2L NC O2, had vomiting and aspiration event 02/19, TF was held, and unasyn added 02/20. Repeat -chest x-ray showing cardiomegaly with pulmonary edema and a small pleural effusion Given Lasix as needed Wean off of supplemental oxygen as able Currently on 4 L supplemental oxygen 03/15 - tachypneic pulm congestion on CXR (pt received IVF earlier to see if it helps with his worsening renal function). IVF stopped, and free water decreased. Pt also needed blood transfusion and so IV lasix given as well. Cont. to closely monitor 5/2 pt continues to be tachypneic, oxygen requirement unchanged - 4L 5/3 after catheter placed - pt more rhonchous, suctioning provided by nursing staff, placed on oxymask / breathing comfortably post HD but still with a significant oxygen requirement. Remains a very high aspiration risk--overnight started on ertapenem, de-escalated to cefepime for pseudomonas coverage and to avoid carbapenem usage from antibiotic stewardship perspective. Acute metabolic encephalopathy/known Dementia Secondary to above, in setting of Lewy body dementia and Hypernatremia (Na was 164 on admission 02/03), sodium now normal - 144 CT head: No significant change compared to the prior study. No acute intracranial abnormality. Elev. troponin: Troponin level 400's on admission - likely type II MT, secondary to above. No further workup at this time. Acute Hypernatremia: resolved. Chronic Ferris/urinary retention: Ferris was replaced this admission. [facility] [place] aware of his need for follow-up. would like to consider TURP or other prostate surgery in the future For now, will cont with alpha-ban. The only one that will go through the PEG is terazosin This capsule has to be melted in warm water for 15 minutes and then given as a solution through the PEG. Ferris changed With culture grew Liliana albicans and started on oral Diflucan (now stopped) Decubitus ulcers: Multiple sites of ulceration with necrosis There are multiple pressure sites for skin breakdown This was a possible source for his sepsis this admission Wound care nurse consulted. 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 Patient has eyes closed in semi upright position in bed. He is diaphoretic and tachypneic He is not responding to verbal or physical stimulus No significant needs on PCU and oxygen needs have been relatively stable. Transferring to medical with telemetry capability. Review of Systems Review of Systems: unable to determine ROS as patient is nonverbal Physical Exam Physical Exam: CONSTITUTIONAL: WNWD, vitals as above, ill appearing, ,tachypneic. Diaphoretic. EYES: normal conjunctivae, no scleral icterus ENT: external ear and nose normal, oral mucosa is dry, poor dentition. NECK: trachea midline RESPIRATORY: clear to auscultation bilaterally, no crackles, rales or wheezes, normal respiratory effort (limited exam as patient not cooperative) CARDIOVASCULAR: regular rate and rhythm, S1 and 2 heard without murmurs, gallops or rubs, no JVD, peripheral edema present in bilateral hands and feet. CHEST: +pacemaker present. GASTROINTESTINAL: (exam very limited as patient is in position and resists repositioning) soft, nontender, +PEG tube MUSCULOSKELETAL: generalized weakness with stiffened arms and legs and resistance to repositioning, head is normocephalic and atraumatic, neck supple, normal palpation of chest wall without tenderness SKIN: warm and dry, multiple areas of skin breakdown on back area over pressure points (unable to be examined as patient is unable to participate in exam) NEUROLOGIC: asleep, no meaningful communication with him, he will not follow commands, very limited exam as a result. PSYCHIATRIC: asleep and not responsive to verbal or physical stimuli Results & Data Results & Data Vital Signs (Past 12 Hours) Vital Signs Temp Pulse Pulse Resp BP Pulse Ox O2 Del Method 03/23/23 03:36 36.7 C 68 32 H 123/62 95 Oxymask 03/23/23 00:00 66 03/22/23 23:52 37.4 C 68 28 H 147/78 H 96 Oxymask O2 Flow Rate 03/23/23 03:36 4 03/23/23 00:00 03/22/23 23:52 4 Laboratory Results Short CBC 03/23/23 Range/Units 06:26 WBC 13.04 H (4.8-10.8) K/ul Hgb 7.4 L (14.0-18.0) g/dl Hct 23.3 L (42.0-52.0) % Plt Count 251 (130-400) K/uL BMP 03/23/23 06:26 Sodium 139 Potassium 4.2 Chloride 103 Carbon Dioxide 27 BUN 70 H Creatinine 3.25 H Glucose 127 H Calcium 7.1 L Cardiac Enzymes 03/22/23 Range/Units 11:13 Total Creatine Kinase 34 (30-223) U/L Medications Administered Current Inpatient Medications Acetaminophen (Acetaminophen Susp 325 Mg/10.15 Ml Udc) 650 mg PEG Q6H PRN PRN Reason: fever/pain Stop: 04/20/23 23:54 Last Admin: 03/22/23 23:56 Dose: 650 mg Aspirin (Aspirin 81 Mg Chew) 81 mg PEG DAILY FERNIE Stop: 04/22/23 08:59 Last Admin: 03/23/23 07:42 Dose: 81 mg Carbidopa/Levodopa (Carbidopa/Levodopa 25/100mg Tab) 1 tab PEG BID FERNIE Stop: 04/21/23 10:59 Last Admin: 03/23/23 07:43 Dose: 1 tab Donepezil HCl (Donepezil Hcl 5 Mg Tab) 5 mg PO QAM FERNIE Stop: 04/21/23 10:59 Last Admin: 03/23/23 07:43 Dose: 5 mg Enteral Nutritional Formula (Novasource Renal 2.0 Jeremy 1000ml Bag) 0 ml GT UD FERNIE; Protocol Stop: 04/20/23 10:59 Last Admin: 03/22/23 11:31 Dose: 45 ml Epoetin Oziel (Epoetin Oziel 10,000 Units/Ml Vial) 10,000 units IV TODAY@0800 [facility] Stop: 03/23/23 23:59 Furosemide (Furosemide 40 Mg/4 Ml Vial) 40 mg IV ONE PRN PRN Reason: prior to blood transfusion Stop: 04/14/23 11:35 Guaifenesin (Guaifenesin Sugar Free 200 Mg/10 Ml Udc) 200 mg PO Q6H FERNIE Stop: 04/13/23 09:59 Last Admin: 03/23/23 03:35 Dose: 200 mg Heparin Sodium (Beef Lung) (Heparin 10 Unit/Ml 5 Ml Flush) 5 ml FLUSH PRN PRN PRN Reason: Flush Stop: 04/08/23 15:32 Last Admin: 03/21/23 21:52 Dose: 5 ml Heparin Sodium (Porcine) (Heparin Sod (Porcine) 1000 Unit/Ml) 1,000 units IV TODAY@0800 [facility] Stop: 03/23/23 23:59 Heparin Sodium (Porcine) (Heparin Sod (Porcine) 1000 Unit/Ml) 400 units IV TODAY@0800,0900,1000 [facility] Stop: 03/23/23 23:59 Daptomycin 800 mg/ Syringe 16 mls @ 8 mls/min IV Q48H [facility]; Protocol Stop: 03/30/23 23:59 Last Admin: 03/21/23 16:22 Dose: 8 mls/min Cefepime HCl 1,000 mg/ Syringe 10 mls @ 5 mls/min IV Q24H [facility]; Protocol Stop: 03/29/23 17:59 Last Admin: 03/22/23 18:35 Dose: 5 mls/min Iron Sucrose 100 mg/ Syringe 5 mls @ 1 mls/min IV TODAY@0800 [facility] Stop: 03/23/23 23:59 Sodium Chloride (Nss 1000ml) 1,000 mls @ 0 mls/hr IV .Q0M PRN PRN Reason: For Hemodialysis Use ONLY Stop: 03/23/23 13:30 Lansoprazole (Lansoprazole 30 Mg Soltab) 30 mg PEG BID [facility] Stop: 04/03/23 20:59 Last Admin: 03/23/23 07:43 Dose: 30 mg Miscellaneous (Remove Transderm-Scop Patch) 1 each N/A Q72H [facility] Stop: 04/24/23 13:44 Miscellaneous (Check Scopolamine Patch Placement) 1 each N/A QS [facility] Stop: 04/21/23 15:59 Last Admin: 03/23/23 07:44 Dose: 1 each Rifampin (Rifampin 600mg/60ml Udp) 600 mg PEG Q24H [facility] Stop: 03/30/23 17:59 Last Admin: 03/22/23 18:35 Dose: 600 mg Scopolamine (Scopolamine 1 Mg Tdsy) 1 mg TD Q72H [facility] Stop: 04/21/23 13:59 Last Admin: 03/22/23 14:35 Dose: 1 mg Sterile Water (Tube Feeding Water Flush) 150 ml PEG Q4 [facility] Stop: 04/14/23 11:59 Last Admin: 03/23/23 07:43 Dose: 150 ml Terazosin HCl (Terazosin Hcl 1 Mg Cap) 2 mg PO HS [facility] Stop: 04/21/23 20:59 Last Admin: 03/22/23 20:20 Dose: 2 mg
--- NOTE | 2023-03-23 08:57 | Pulmonary Consultation ---
Date of Consultation March 23, 2023 Assessment & Plan (1) Acute renal failure (ARF): (2) Sepsis: (3) Dementia: (4) Parkinson's disease: (5) Lewy body dementia: (6) Pleural effusion: Plan -- Acute hypoxic respiratory failure Multifactorial Fluid overload Left-sided pleural effusion along with possible new left-sided pneumonia from aspiration Continue with antibiotic --Left-sided pleural effusion Significantly increased compared with the time of presentation -- S/p VDRF --> extubated 02/06/2023 Likely secondary to left lower lobe pneumonia from aspiration --Pansensitive Klebsiella in the sputum 02/04/23 Continue with antibiotic Liliana in the sputum is likely contaminant -- Severe end stage Dementia secondary to Parkinson's/Lewy body, contractures and decubitus ulcers -- DNR/DNI Plan: Patient has been in the hospital for the last 48 days. There has been decline in patient's condition since admssion. He has been started on hemodialysisand now has PEG tube. I had a talk with patient's when he was initially admitted to the ICU . Patient himself did not want any measures which would prolong his life as per patient's children and ex-. Current and POA seems to be in denial/guilt of patient's status and does not seem to comprehend the suffering which patient is likely going through. Patient does have significant left-sided pleural effusion and thoracentesis would be the next step but given the end-stage renal disease the fluid is most likely going to come back. I will get IR involved to have the procedure done Saturday Case was discussed with RN at bedside Please note the above document was generated using voice recognition software. It may contain grammatical, syntax or spelling errors.Any formal questions or concerns about the content, text or information contained within the body of this dictation should be directly addressed to the provider for clarification. History of Present Illness Attending Physician: Neda Junior DO History of Present Illness 87-year-old male who was initially admitted to the hospital because of aspiration pneumonia and UTI sepsis Past medical history: Lewy body dementia, Parkinson's disease, chronic UTI During the hospital stay patient went into renal failure and now is on hemodialysis Pulmonary consulted because of left-sided pleural effusion Unfortunately history is not able to obtain given the severe Parkinson's and Lewy body dementia. History obtained from previous chart At the time of examination patient was on oxygen mask Saturating 95% on 5 L, we went down to 3 L. Patient is nonverbal. Did not seem to be in any acute respiratory distress He has been spiking fevers though. Allergies Allergy/AdvReac Type Severity Reaction Status Date / Time No Known Allergies Allergy Verified 12/19/22 11:15 Home Medications Medication Instructions Recorded Confirmed Type atorvastatin 20 mg tablet (Lipitor) 20 mg PO QPM #30 tabs 09/11/21 02/03/23 Rx carbidopa 25 mg-levodopa 100 mg 1 tab PO BID #60 tabs 09/11/21 02/03/23 Rx tablet sennosides 8.6 mg-docusate sodium 1 tab PO QAM #30 tabs 09/11/21 02/03/23 Rx 50 mg tablet (Senokot-S) acetaminophen 325 mg tablet 650 mg PO Q4H PRN PAIN/FEVER 09/12/22 02/03/23 History (Tylenol) aspirin 81 mg tablet,delayed 81 mg PO QAM 09/12/22 02/03/23 History release donepezil 5 mg tablet 5 mg PO QAM 09/12/22 02/03/23 History metoprolol tartrate 25 mg tablet 25 mg PO QAM 09/12/22 02/03/23 History polyethylene glycol 3350 17 gram 17 g PO QAM 09/12/22 02/03/23 History oral powder packet (Miralax) Patient History Medical History Aortic aneurysm Aortic stenosis Atrial fibrillation CAD (coronary artery disease) Dementia Discussion about advance care planning held with family member Goals of care, counseling/discussion Hemolytic anemia HLD (hyperlipidemia) HTN (hypertension) Left rib fracture halfway resident Pacemaker Pacemaker battery depletion Palliative care by specialist Parkinsons disease Rhabdomyolysis Septic shock T12 compression fracture Surgical History H/O prosthetic heart valve History of cataract surgery right Hx of heart bypass surgery Social History Smoking Status: Unknown if ever smoked Hx Substance Use: No Preferred Language: Honduran Communication Ability: Unable Visual Impairment: No Limitations Hearing Ability: Normal Sorter Upholstery Parts Required: No Beliefs That Will Affect Care: None marital status: Current Living Situation: Halfway Current Living Situation Comment: resident at [facility] Feels Safe at Home: Declines to Answer Assistive Devices: Wheelchair Review of Systems Review of Systems: Unobtainable due to cognitive status Physical Exam Physical Exam: Constitutional: No acute distress HEENT: PERRLA, arcus senilis bilaterally Respiratory system: Decreased air entry bilaterally, no wheeze, no rhonchi, positive crackles bilateral lower lobes, more on the left side CVS: S1-S2 positive, 2 out of 6 systolic murmur appreciated best at aorta, bioprosthetic heart sounds, accentuated P2 Abdomen: Soft, nontender, nondistended, positive bowel sounds x4, positive PEG Extremities: +2 pulses bilaterally radialis/ dorsalis pedis, no cyanosis, +1 pitting edema bilateral lower extremity Neuro: Somnolent, not answering any questions Psych: Unable to assess G/U: Positive Ferris Skin: no rashes, warm and dry Lymphatic: no cervical or axillary lymphadenopathy Results & Data Results & Data Vital Signs (Past 12 Hours) Vital Signs Temp Pulse Pulse Pulse Resp BP BP 03/23/23 07:25 37.9 C H 69 20 113/64 03/23/23 03:36 36.7 C 68 32 H 123/62 03/23/23 00:00 66 03/22/23 23:52 37.4 C 68 28 H 147/78 H Pulse Ox O2 Del Method O2 Flow Rate 03/23/23 07:25 96 Oxymask 4.0 03/23/23 03:36 95 Oxymask 4 03/23/23 00:00 03/22/23 23:52 96 Oxymask 4 Laboratory Results 03/23/23 06:26 03/23/23 06:26 PG Care Time/CCT Total # of Minutes Spent Total Time Spent with Patient: Total time spent is greater than 50% in coordination of care (as documented) at patient's floor/unit and/or counseling patient: Coding Level of Care Code 86246 INT INP/OBS CARE 3/75MIN Diagnoses Acute renal failure (ARF) N17.9 Sepsis A41.9 Dementia F03.90 Parkinson's disease G20 Lewy body dementia G31.83; F02.80 Pleural effusion J90
--- NOTE | 2023-03-23 11:45 | Nephrology Progress Note ---
Date of Service March 23, 2023 Assessment & Plan (1) Acute renal failure (ARF): Plan: Nephrology following for multiple episodes of acute kidney injury this admission. Earlier this admission he had prerenal HERSON with peak creatinine 5.6 February 04; improved to approximately 1.2-1.3 creatinine then recurrent acute kidney injury in the setting of aspiration pneumonia diagnosis and therapy February 20 w/ creatinine going from 1 > 1.7 in 24 hrs and then plateau'd at about 2 since February 21; not oliguric; did require Ferris replacement in this timeframe. Now having another episode of ARF suspect from ischemic ATN related to anemia and to hypotension 03/14 and 03/15 >> unfortunately progressed to need for acute dialysis, first tx 03/20 Hgb is low and he now has some Pulm edema + Aspiration pneumonitis on CXR No iv fluid. exceptionally poor dialysis candidate > risk of recurrent bacteremia, bleeding, challenges maintaining dialysis access/ patient position for treatment particularly w/ his contractures and wounds. that said, there is no strict contraindication to [employer] though I personally believe it will diminish further the already poor quality of the time he has left and feel we are prolonging his suffering; I must say that it pains me to proceed with this therapy for this patient at this time >> POA stated that this pt would want dialysis in current clinical circumstances though it sounds as though in discussion w/ palliative she does not want him to suffer; did not see POA today; she has emphasized to me that moving forward with [employer]NICIAN aligns w/ the patient's wishes duration of dialysis need unclear; monitor for recovery though I have concerns he may not recover easily; his UOP is dropping/ now anuric >HD today and evaluate for tx Saturday -mini heparin and epo w/ HD >don't see much I can concentrate in terms of meds >> dapto is only 16 ml/48 hrs; will discuss lower FW flushes w/ dietary at least temporarily Per infectious diseases recommendations, he is on 6 weeks of empiric vancomycin with rifampin > daptomycin through April 02; had planned also after this to follow indefinitely with antibiotic suppression doxycycline 100 mg twice daily due to concern for possible CIED infection or endocarditis -avoid further IV contrast for now unless life/limb saving -appreciate nutrition /dietary close follow up -do not believe he will respond to lasix at this point -avoid NSAID >daily bmp, cbc and continue to quantify UOP >continue to discuss goals of care Admission and Anticipated Discharge Date Admission Date: February 03, 2023 Subjective tolerated 1.5L UF yesterday; oxygen needs may be starting to lessen Review of Systems Review of Systems: Unobtainable due to cognitive status Physical Exam Constitutional: well developed, + cachectic and + frail appearing; no acute distress ENMT: Mouth: + dry oral mucous membranes and + poor dentition Respiratory: normal respiratory effort and + tachypneic Auscultation: + diminished lung sounds and + crackles; no rhonchi Cardiovascular: Rate/Rhythm: regular rate and regular rhythm Extremities: + edema (trace on R at most; no L) Gastrointestinal (Abdomen): Inspection/Auscultation: normal bowel sounds and + scaphoid (PEG present) Musculoskeletal: abnormal strength / generalized weakness Skin: skin breakdown/bandages on back/hips Results & Data Vital Signs (Past 12 Hours) Vital Signs Temp Pulse Pulse Pulse Resp BP BP 03/23/23 10:00 71 131/59 L 03/23/23 10:30 72 127/63 03/23/23 09:57 76 130/58 L 03/23/23 09:51 37 C 69 03/23/23 08:00 03/23/23 07:25 37.9 C H 69 20 113/64 03/23/23 03:36 36.7 C 68 32 H 03/23/23 00:00 66 03/22/23 23:52 37.4 C 68 28 H BP Pulse Ox O2 Del Method O2 Flow Rate 03/23/23 10:00 03/23/23 10:30 03/23/23 09:57 03/23/23 09:51 03/23/23 08:00 Oxymask 3 03/23/23 07:25 96 Oxymask 4.0 03/23/23 03:36 123/62 95 Oxymask 4 03/23/23 00:00 03/22/23 23:52 147/78 H 96 Oxymask 4 Laboratory Results 03/23/23 06:26 03/23/23 06:26
[2023-03-23] MEDS: HEPARIN SOD (PORCINE) 1000 UNIT/ML IV SCH ×2 (14:22→14:23)
[2023-03-23] MEDS: DAPTOmycin 800 MG in SYRINGE 0 ML IV SCH (15:17)
[2023-03-23] MEDS: CEFEPIME 1,000 MG in SYRINGE 0 ML IV SCH (17:29)
[2023-03-23] MEDS: RIFAMPIN PEG SCH (17:40)
[2023-03-23] MEDS: TERAZOSIN HCL 1 MG CAP PO SCH (21:55)
[2023-03-24] MEDS ORDERED: ALBUT/IPRATROP 3MG/0.5MG NEB 3 ML VIAL NEB STA (01:01)
[2023-03-24] MEDS: guaiFENesin SUGAR FREE 200 MG/10 ML UDC PO SCH ×4 (04:04→20:43)
[2023-03-24] MEDS: TUBE FEEDING WATER FLUSH PEG SCH ×5 (04:05→20:42)
[2023-03-24 06:30] LABS: Base Excess ABG 3.1 mEq/L (-9-1.8); HCO3 ABG 30 mmol/L (19-24); PCO2 ABG 51 mmHg (35-46); PO2 ABG 51 mmHg (80-95); pH ABG 7.37 (7.35-7.45)
[2023-03-24 06:32] LABS: Allen Test Pos (Pos); Oxygen Saturation ABG 85.6 % (90-95)
--- NOTE | 2023-03-24 07:15 | XRay Report ---
XR chest 1V portable CLINICAL HISTORY: low o2 COMPARISON STUDY: Chest radiograph March 22, 2023. FINDINGS: Dual lumen right internal jugular central venous catheter, left-sided pacer, median sternot ariadne wires and mediastinal surgical clips are noted. Left lung aeration has improved. Left pleural eff usion has decreased. There are small bilateral pleural effusions. There are bibasilar opacities. Pulm onary edema persists. 3.5 x 1.9 cm right upper lobe nodular density has developed. No pneumothorax. C ardiomegaly is again noted. IMPRESSION: 1. Interval improvement in left lung aeration with decrease in the left pleural effusion. No pneumoth orax. 2. Small bilateral pleural effusions with bibasilar opacities. 3. Persistent pulmonary edema. 4. Interval development of a 3.5 x 1.9 cm nodular right upper lung opacity. This may be infectious. ACT 112: Negative or not required by law. Electronically signed by: Nolberto Alexandre M.D. 03/24/2023 7:13 AM
--- NOTE | 2023-03-24 07:54 | Hospitalist Progress Note ---
Date of Service March 24, 2023 Assessment & Plan (1) Septic shock: (2) Acute hypernatremia: (3) Acute renal failure (ARF): (4) Anemia: (5) Wounds and injuries: (6) Severe protein-calorie malnutrition: Plan 03/22: Pt appears more tachypneic and diaphoretic today. He appears to be in distress with air hunger. He is not able to communicate. Going for hemodialysis this afternoon. Asked palliative to continue to readdress goals of care with as he appears significantly worse today. As a result of fever overnight, he was placed on ertapenem. ID is unavailable for consultation or recs at this time. Will transition ertapenem to renal dosed cefepime. Cont daptomycin and rifampin per prior ID recs. Also, several medications auto- stopped in the last couple of days and these were restarted today. 03/23: Continues on broad spectrum abx, oxygen needs are still present but have stabilized. He continues to appear diaphoretic and tachypneic today. Cont hemodialysis per 's wishes and nephro recs. Transfer out of PCU with stable oxygen needs at this time. 03/24: Left pleural effusion noted yesterday, repeat CXR this am reveals this is improved. I do not believe he is stable enough for an IR procedure tomorrow, which may be deferred given the improvement on today's CXR. The patient continues to decline and may even within the next 24 hours. He appears to be in pain now as he is crying out intermittently. Will give additional pain medication now with a goal of comfort without respiratory depression. Scopolamine patch switched to atropine drops as patient sounds as if he is drowning in his own secretions. If this isn't effective will consider Robinol IV. Patient is an 87 yr male presents from [facility] with septic shock, renal failure. Pt was intubated. Admitting team confirmed No CPR, defibrillation, cardioversion in the event of cardiac arrest. Palliative care evaluated. He is being managed for the following: Septic Shock with staph ([employer] not lugdunensis) bacteremia: possible sources include skin vs pneumonia and UTI with indwelling Ferris. Weaned off pressors and extubated 02/06. Pansensitive Klebsiella in sputum. Liliana in sputum likely a contaminant Urine Culture: Noncontributory (H/O chronic Ferris, recent h/o of UTI) ECHO: EF 50 to 55%, bioprosthetic aortic valve, mild mitral regurgitation, grade 2 diastolic dysfunction, mild tricuspid regurgitation High risk for aspiration pneumonia. Known recent month long admission with urosepsis Repeat blood cultures were negative. Initially admitted on Vanc/Zosyn 02/03 Plan will be total 6 weeks of Vancomycin with rifampin added from 02/16/23 with surveillance cultures (2 sets from the periphery) 5-7 days post completion of abx therapy. End date 04/02/2023. Switched vanco to daptomycin, given worsened renal function. This was discussed with Dr. Delgado on 03/15 Discussed with the about discharging him on approval to go to the [facility]-awaiting placement Continue wound care for decubitus ulcers Continue air mattress Candiduria Catheter changed and repeat test came back positive for Liliana Urine culture growing Liliana albicans Started on Diflucan through the G-tube Discussed w/ ID - do not believe this needs treatment - diflucan stopped Acute Renal Failure: present at admission which was resolved. Had another bump in Cr on 02/20, d/w nephro - no ivf/avoid nephrotoxics/hold vanc until acceptable trough level achieved. Renal function slowly worsened likely related to ATN - BUN also rising and HD not advised - discussed w/ nephrology and on multiple occasions- pt's wishes to proceed w/ HD - HD catheter placed this AM (03/20/2023), cont HD per nephrology. Daily labs Anemia: Hemoglobin >6.8, likely multifactorial etiology. Iron deficiency present. Poor nutrition does not help. Cont iron supplementation and proper nutrition. He notably remains very malnourished evidenced by wasting and edema of feet/hands Hb has periodically dropped in the last week and he has received multiple blood transfusions. He is requiring an additional unit of blood today, that was given through dialysis. Severe protein calorie malnutrition H/O Esophageal dysmotility Dysphagia: Speech therapy involved in his care this admission. Palliative care involved, Patient's POA now agreeing to no escalation of care (pressors, CPR, intubation). She declined COURT. However, POA would like PEG feeds. PEG placed 02/14-tolerating feeds without residual Remains high risk for aspiration [facility] cannot accept him back with PEG in place PEG feed held due to vomiting, then resumed at low rate Keep HOB at 30 degrees/aspiration precautions. No problem with the PEG feeding-electrolytes unremarkable Continue with the PEG tube feeding Acute hypoxic respiratory failure Secondary to left lower lobe pneumonia likely due to aspiration Was weaned down to 2L NC O2, had vomiting and aspiration event 02/19, TF was held, and unasyn added 02/20. Repeat -chest x-ray showing cardiomegaly with pulmonary edema and a small pleural effusion Given Lasix as needed Wean off of supplemental oxygen as able Currently on 4 L supplemental oxygen 03/15 - tachypneic pulm congestion on CXR (pt received IVF earlier to see if it helps with his worsening renal function). IVF stopped, and free water decreased. Pt also needed blood transfusion and so IV lasix given as well. Cont. to closely monitor 03/19 pt continues to be tachypneic, oxygen requirement unchanged - 4L 03/20 after catheter placed - pt more rhonchous, suctioning provided by nursing staff, placed on oxymask 03/21 breathing comfortably post HD but still with a significant oxygen requirement. Remains a very high aspiration risk--overnight started on ertapenem, de-escalated to cefepime for pseudomonas coverage and to avoid carbapenem usage from antibiotic stewardship perspective. Acute metabolic encephalopathy/known Dementia Secondary to above, in setting of Lewy body dementia and Hypernatremia (Na was 164 on admission 02/03), sodium now normal - 144 CT head: No significant change compared to the prior study. No acute intracranial abnormality. Elev. troponin: Troponin level 400's on admission - likely type II AR, secondary to above. No further workup at this time. Acute Hypernatremia: resolved. Chronic Ferris/urinary retention: Ferris was replaced this admission. [facility] urology is aware of his need for follow-up. would like to consider TURP or other prostate surgery in the future For now, will cont with alpha-ban. The only one that will go through the PEG is terazosin This capsule has to be melted in warm water for 15 minutes and then given as a solution through the PEG. Ferris changed With culture grew Liliana albicans and started on oral Diflucan (now stopped) Decubitus ulcers: Multiple sites of ulceration with necrosis There are multiple pressure sites for skin breakdown This was a possible source for his sepsis this admission Wound care nurse consulted. 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 Patient has eyes closed in semi upright position in bed. He is diaphoretic and tachypneic He is now appearing to cry out intermittently and appears to be in pain He is not responding or following commands. Repeat CXR reveals an improvement in left pleural effusion and new RUL airspace opacity. Review of Systems Review of Systems: unable to determine ROS as patient is nonverbal Physical Exam Physical Exam: CONSTITUTIONAL: malnourished, frail, vitals as above, ill appearing, ,tachypneic. Diaphoretic. No making crying sounds intermittently as if in pain. EYES: normal conjunctivae, no scleral icterus ENT: external ear and nose normal, oral mucosa is dry, poor dentition. NECK: trachea midline RESPIRATORY: coarse crackles throughout mixed in with coarse upper airway gurgling from him not managing his secretions, increased respiratory effort CARDIOVASCULAR: regular rate and rhythm, S1 and 2 heard without murmurs, gallops or rubs, no JVD, peripheral edema present in bilateral hands and feet. CHEST: +pacemaker present. GASTROINTESTINAL: (exam very limited as patient is in position and resists repositioning) soft, nontender, ND, +PEG tube MUSCULOSKELETAL: generalized weakness with stiffened arms and legs and resistance to repositioning, head is normocephalic and atraumatic SKIN: warm and dry, multiple areas of skin breakdown on back area over pressure points (unable to be examined as patient is unable to participate in exam) NEUROLOGIC: no meaningful communication with him, he will not follow commands, very limited exam as a result. PSYCHIATRIC: eyes partly open but he is not showing any meaningful communication. Results & Data Results & Data Vital Signs (Past 12 Hours) Vital Signs Temp Pulse Pulse Pulse Resp BP Pulse Ox 03/24/23 07:46 36.5 C 65 24 136/70 94 03/24/23 06:01 62 03/23/23 22:00 03/23/23 22:39 61 03/23/23 23:46 36.3 C L 72 18 158/76 H 92 03/23/23 21:51 64 30 H 117/53 L 96 03/23/23 20:01 36.4 C L 59 L 18 105/47 L 95 O2 Del Method O2 Flow Rate 03/24/23 07:46 Oxymask 3 03/24/23 06:01 03/23/23 22:00 Oxymask 3 03/23/23 22:39 03/23/23 23:46 Oxymask 3 03/23/23 21:51 Oxymask 3 03/23/23 20:01 Oxymask 3 Diagnostic Findings Chest X-Ray 03/24/23 06:11 XR chest 1V portable CLINICAL HISTORY: low o2 COMPARISON STUDY: Chest radiograph March 22, 2023. FINDINGS: Dual lumen right internal jugular central venous catheter, left-sided pacer, median sternotomy wires and mediastinal surgical clips are noted. Left lung aeration has improved. Left pleural effusion has decreased. There are small bilateral pleural effusions. There are bibasilar opacities. Pulmonary edema pers ists. 3.5 x 1.9 cm right upper lobe nodular density has developed. No pneumothorax. Cardiomegaly is again noted. IMPRESSION: 1. Interval improvement in left lung aeration with decrease in the left pleural effusion. No pneumothorax. 2. Small bilateral pleural effusions with bibasilar opacities. 3. Persistent pulmonary edema. 4. Interval development of a 3.5 x 1.9 cm nodular right upper lung opacity. This may be infectious. ACT 112: Negative or not required by law. Electronically signed by: Nolberto Alexandre M.D. 03/24/2023 7:13 AM
[2023-03-24] MEDS: ASPIRIN 81 MG CHEW PEG SCH (08:22)
[2023-03-24] MEDS: CARBIDOPA/LEVODOPA 25/100MG TAB PEG SCH ×2 (08:23→20:43)
[2023-03-24] MEDS: DONEPEZIL HCL 5 MG TAB PO SCH (08:23)
[2023-03-24] MEDS: LANSOPRAZOLE 30 MG SOLTAB PEG SCH ×2 (08:24→20:45)
[2023-03-24] MEDS: MoRPHine SULFATE 10 MG/0.5 ML UDP PO PRN ×3 (08:28→15:35)
[2023-03-24 08:41] LABS: Basophils # (auto) 0.04 K/uL (0-0.2); Basophils % (auto) 0.3 %; Eosinophils # (auto) 0.23 K/uL (0-0.50); Eosinophils % (auto) 1.5 %; Hematocrit (blood only) 23.7 % (42.0-52.0); Hemoglobin 7.6 g/dl (14.0-18.0); Immature Granulocytes # (auto) 0.09 K/uL (0.01-0.20); Immature Granulocytes % (auto) 0.6 %; Lymphocytes # (auto) 0.71 K/uL (1.2-3.4); Lymphocytes % (auto) 4.7 %; Mean Corpuscular Hemoglobin 30.2 pg (25.0-34.0); Mean Corpuscular Hgb Conc 32.1 g/dL (32.0-36.0); Mean Platelet Volume 10.6 fL (9.4-12.4); Monocytes # (auto) 0.89 K/uL (0.11-0.59); Monocytes % (auto) 5.9 %; Neutrophils # (auto) 13.14 K/uL (1.40-6.50); Platelet Count 235 K/uL (130-400); RDW Coefficient of Variation 16.4 % (11.5-14.5); RDW Standard Deviation 54.4 fL (36.4-46.3); Red Blood Count 2.52 M/uL (4.70-6.10)
[2023-03-24 08:56] LABS: Calcium 7.2 mg/dl (8.6-10.3); Creatinine Clr Calc Pharmacy 21.4 ml/min; Est GFR (African American) 21.5 ml/min; Est GFR (Non-African American) 18.5 ml/min
[2023-03-24 09:03] LABS: Anisocytosis Present
[2023-03-24] MEDS: ATROPINE SULFATE 1% OP SOLN 5 ML BTL SL PRN ×4 (09:23→20:38)
--- NOTE | 2023-03-24 09:41 | Pulmonology Progress Note ---
Date of Service March 24, 2023 Assessment & Plan (1) Acute renal failure (ARF): (2) Sepsis: (3) Dementia: (4) Parkinson's disease: (5) Lewy body dementia: (6) Pleural effusion: Plan -- Acute hypoxic respiratory failure Multifactorial Fluid overload Left-sided pleural effusion along with possible new left-sided pneumonia from aspiration Continue with antibiotic --Left-sided pleural effusion Significantly improved on the chest x-ray 03/24/2023 -- S/p VDRF --> extubated 02/06/2023 Likely secondary to left lower lobe pneumonia from aspiration --Pansensitive Klebsiella in the sputum 02/04/23 Continue with antibiotic Liliana in the sputum is likely contaminant -- Severe end stage Dementia secondary to Parkinson's/Lewy body, contractures and decubitus ulcers -- DNR/DNI There has been decline in patient's condition since admssion. He has been started on hemodialysis and PEG tube has been placed. PEG tube does not prevent aspirations which patient is at high risk for. I had a talk with patient's when he was initially admitted to the ICU . Patient himself did not want any measures which would prolong his life as per patient's children and ex-. Current who is POA seems to be in denial/guilt of patient's status and does not seem to comprehend the suffering which patient is likely going through. Consider print shop helper while discussing patient's condition with POA going forward Plan: Chest x-ray from today shows significant improvement in the left-sided pleural effusion It seems that most likely patient had atelectasis on the left side yesterday along with small effusion. As I do not expect the pleural effusion to improve significantly in 1 day. No indication for thoracentesis as of now. Would recommend continue with antibiotics. Patient is at risk for infection including but not limited to decubitus ulcers and recurrent aspiration. Case was discussed with RN and Dr. Junior Please note the above document was generated using voice recognition software. It may contain grammatical, syntax or spelling errors.Any formal questions or concerns about the content, text or information contained within the body of this dictation should be directly addressed to the provider for clarification. Admission and Anticipated Discharge Date Admission Date: February 03, 2023 Subjective Patient seen and examined at bedside. Seems to be in distress secondary to pain He was getting cleaned. Tmax 37.9. Patient is unfortunately nonverbal Review of Systems Review of Systems: Unobtainable due to cognitive status Physical Exam Physical Exam: Constitutional: No acute distress HEENT: PERRLA, arcus senilis bilaterally Respiratory system: Decreased air entry bilaterally, no wheeze, no rhonchi, positive crackles bilateral lower lobes, more on the left side CVS: S1-S2 positive, 2 out of 6 systolic murmur appreciated best at aorta, bioprosthetic heart sounds, accentuated P2 Abdomen: Soft, nontender, nondistended, positive bowel sounds x4, positive PEG Extremities: +2 pulses bilaterally radialis/ dorsalis pedis, no cyanosis, +1 pitting edema bilateral lower extremity Neuro: Somnolent, not answering any questions Psych: Unable to assess G/U: Positive Ferris Skin: no rashes, warm and dry Lymphatic: no cervical or axillary lymphadenopathy Results & Data Results & Data Vital Signs (Past 12 Hours) Vital Signs Temp Pulse Pulse Pulse Resp BP Pulse Ox 03/24/23 07:46 36.5 C 65 24 136/70 94 03/24/23 07:45 03/24/23 06:01 62 03/23/23 22:00 03/23/23 22:39 61 03/23/23 23:46 36.3 C L 72 18 158/76 H 92 03/23/23 21:51 64 30 H 117/53 L 96 O2 Del Method O2 Flow Rate 03/24/23 07:46 Oxymask 3 03/24/23 07:45 Oxymask 3 03/24/23 06:01 03/23/23 22:00 Oxymask 3 03/23/23 22:39 03/23/23 23:46 Oxymask 3 03/23/23 21:51 Oxymask 3 Laboratory Results 03/24/23 08:07 03/24/23 08:07 PG Care Time/CCT Total # of Minutes Spent Total Time Spent with Patient: Total time spent is greater than 50% in coordination of care (as documented) at patient's floor/unit and/or counseling patient: Coding Level of Care Code 50620 SUB INP/OBS CARE 3/50MIN Diagnoses Acute renal failure (ARF) N17.9 Sepsis A41.9 Dementia F03.90 Parkinson's disease G20 Lewy body dementia G31.83; F02.80 Pleural effusion J90
[2023-03-24] MEDS: ACETAMINOPHEN SUSP 325 MG/10.15 ML UDC PEG PRN (10:53)
[2023-03-24] MEDS: HYDROmorphone INJ 0.5 MG/0.5 ML SYR IV PRN ×3 (12:24→20:38)
[2023-03-24] MEDS: ACETAMINOPHEN 1,000 MG/100 ML VIAL IV SCH (17:24)
[2023-03-24] MEDS: CEFEPIME 1,000 MG in SYRINGE 0 ML IV SCH (17:24)
[2023-03-24] MEDS: RIFAMPIN PEG SCH (17:25)
[2023-03-24] MEDS: TERAZOSIN HCL 1 MG CAP PO SCH (20:10)
[2023-03-25] MEDS: TUBE FEEDING WATER FLUSH PEG SCH (01:03)
[2023-03-25] MEDS: ACETAMINOPHEN 1,000 MG/100 ML VIAL IV SCH (01:03)
--- NOTE | 2023-03-25 10:52 | Discharge Summary ---
Discharge Summary Date of Service March 24, 2023 Notes For Next Care Provider n/a patient Medication Changes From Visit n/a pt Admission HPI Per Admitting Provider Mr. Saez is an 87-year-old male that presents to the ED today after being found unresponsive and hypoxic without any PO intake over numerous days and presenting with severe septic shock presenation. Patient is reportedly a hospice patient and resides at [facility]. Patient underwent a recent admission from December 19 through January 11 overtly for treatment for urosepsis. Patient's is reportedly in [place] for the past 3 to 4 weeks and revoked hospice services for him to come to the ED for aggressive treatment until she arrived back in the [place]. Upon arrival to the , he was unresponsive, hypotensive with BPs low 70s and hypoxic with SPO2 in the 70s. He was intubated in the emergency room for airway protection and placed on Levophed for inotropic support. WBC 26.51, Na+ 164, Creatinine 5.93, Lactate 2.8 Vent FiO2 75% PEEP 7. I set clear expectations to that he is dying and that CPR or overt aggressive measures would not save him. Now conditional code in case of decline. Ok for continuation of vent and pressors for now. Troponin in the 400s which appears to be his baseline. PMH of CAD s/p CABG/stenting, TIA, aortic stenosis s/p bioprosthetic AVR, TAA status post surgery, PFO, SSS sp PPM not on anticoagulation secondary to bleeding, HTN, TIA, Parkinson's disease/Lewy body dementia, chronic anemia (baseline hemoglobin 11-12 ), hemolytic anemia, dysphagia, esophageal dysmotility. Lengthy conversation held with the patients Audelia. Significant time spent discussing goals of care and how she must feel not being at his side knowing that he is actively dying. I did express that while we can continue to perform active treatment measures in the event of further decline or his heart stopping or going into a life-threatening rhythm, CPR, cardioversion or defibrillation would not prolong his life or lead to meaningful recovery. Discussed that in the event his heart would stop we would transition our focus to a more comfort approach allowing him to with dignity and comfort. She was amenable to a transition to conditional code with continuation of mechanical ventilation and inotropic vasoactive medications. Patient agreeable that she would not want him to pursue hemodialysis. Expressed that he is actively dying, for which she understands. Patient planning to be in [facility] around 4:30 PM tomorrow, Sunday 02/04. Patient will be admitted for further evaluation and management. Please see A/P for further details. Principal Dx & Hospital Course #1 = Principal Diagnosis (1) Acute respiratory failure: (2) Acute renal failure (ARF): (3) Dependence on renal dialysis: (4) Septic shock: (5) Bacteremia: (6) Pneumonia: (7) Acute hypernatremia: (8) Anemia: (9) Wounds and injuries: (10) Severe protein-calorie malnutrition: (11) Dementia: (12) CAD (coronary artery disease): (13) Pacemaker: (14) Hx of heart bypass surgery: (15) Aortic stenosis: (16) Parkinson's disease: Plan 87-year-old man admitted from [facility] with septic shock and renal failure. He was intubated on admission and treated for septic shock with staph bacteremia with possible sources including his skin versus pneumonia. On 02/06 he was weaned off pressors and extubated. Pansensitive Klebsiella was noted in sputum and Liliana in sputum was likely a contaminant. Infectious disease was following patient. UTI was ruled out. Echocardiogram was performed. The patient was noted to be high risk for aspiration pneumonia. He had a known recent month-long admission for urosepsis. Repeat blood cultures were negative. He was initially admitted and placed on vancomycin and Zosyn on 02/03 and was continued on vancomycin with rifampin added with a goal end date of 04/02 totaling 6 weeks of antibiotics. During this period around 03/15 he was switched from vancomycin to daptomycin given worsening renal function. This was discussed with Dr. Delgado from infectious diseases. As a result of candiduria he was started on Diflucan through his G-tube but after discussing further with infectious disease Diflucan was stopped as this was not thought to be an acute infection. Kidney function was initially improved but then he had another bump in creatinine on 02/20. Nephrology was consulted but his renal flow function slowly worsened likely related to ATN. BUN was also rising and after multiple discussions with nephrology and the patient's hemodialysis catheter was placed on 03/20/2023 and he was started on dialysis. Significant anemia which was multifactorial including secondary to severe protein calorie malnutrition and chronic diseases and now kidney dysfunction required him to have blood transfusions during this admission. He was continually fed through a PEG tube and had multiple issues with this including vomiting at times. During the week prior to his he apparently aspirated and ertapenem was started for presumed aspiration pneumonia. His hypoxia worsened and he became tachypneic and diaphoretic. Despite his worsened clinical condition and multiple staff and providers giving his education that his situation is terminal and he was suffering, she refused to transition him to palliative care. He was treated with pain medication when he started making verbal cries and tears were seen in his eyes. This was in the setting of tachypnea and diaphoresis and significant dementia causing him to be nonverbal for the last few weeks of his life. During this time it should be noted there was no significant or meaningful communication with the patient and therefore his was making all of his decisions. Although he had children there was a falling out and the children were not involved in the decision-making process during this hospital stay. Given his known history of dementia he did have hyponatremia and periods of confusion that were worse than others, as expected with this diagnosis. Multiple sites of ulceration with necrosis were seen on skin pressure sites along his back. These were managed supportively. He had other chronic stable conditions including coronary disease status post CABG, aortic stenosis status post bioprosthetic aortic valve replacement, TAA status post surgery, PFO, sick sinus syndrome status post pacemaker, and history of TIA. He on 03/25 at 2140. Discharge Exam see exam performed overnight Updated Medication List Medication Instructions Recorded Confirmed Type atorvastatin 20 mg tablet (Lipitor) 20 mg PO QPM #30 tabs 09/11/21 02/03/23 Rx carbidopa 25 mg-levodopa 100 mg 1 tab PO BID #60 tabs 09/11/21 02/03/23 Rx tablet sennosides 8.6 mg-docusate sodium 1 tab PO QAM #30 tabs 09/11/21 02/03/23 Rx 50 mg tablet (Senokot-S) acetaminophen 325 mg tablet 650 mg PO Q4H PRN PAIN/FEVER 09/12/22 02/03/23 History (Tylenol) aspirin 81 mg tablet,delayed 81 mg PO QAM 09/12/22 02/03/23 History release donepezil 5 mg tablet 5 mg PO QAM 09/12/22 02/03/23 History metoprolol tartrate 25 mg tablet 25 mg PO QAM 09/12/22 02/03/23 History polyethylene glycol 3350 17 gram 17 g PO QAM 09/12/22 02/03/23 History oral powder packet (Miralax) Hospital Stay Data Consultations 02/03/23 15:43 ED Decision to Admit Stat 02/03/23 15:44 Consult Tank House Operator Helper Routine Consult Palliative Care Routine 02/08/23 08:06 Consult Nephrology Routine 02/13/23 12:43 Consult Gastroenterology Routine 02/13/23 13:41 Consult Anesthesiology Routine 02/15/23 09:18 Consult Infectious Diseases Routine 03/20/23 08:00 Consult Vascular Surgery Routine 03/23/23 08:43 Consult Pulmonology Routine Procedures Performed Operation Date: 03/20/23 10:30 Actual Procedures p Insertion of Perm Catheter, Right Jugular Approach, Ultrasound Localization of Right Jugular Vein, Fluoroscopy for Positioning(Right) - Michael Lynn MD Diagnostic Imagining Performed 02/03/23 14:20 CT head/brain wo con Stat 02/17/23 13:03 CT facial bones wo con Routine 02/20/23 03:35 CT Abd and Pelvis [CT abd pelvis IV con only] Urgent 03/20/23 10:05 EV cvc insrt tunnel wo prt/chart computer Urgent US EV guide vascular access Routine 03/24/23 09:39 US point of care ultrasound Urgent Total Time Total Time Spent Total Time Spent (In Minutes): 60
== END 2023-03-24 21:40 | disposition expired | DRG 871 ==
LOC: ED 14:10 → SUATTDRO 15:44 → 1E 15:44 → 2S 02-09 04:19 → 3W 02-16 18:44 → 2E 03-20 13:14 → 2N 03-23 12:45
DX: R74.01 Elevation of levels of liver transaminase levels; R13.10 Dysphagia, unspecified; Z79.82 Long term (current) use of aspirin; I21.A1 Myocardial infarction type 2; J96.21 Acute and chronic respiratory failure with hypoxia; K20.90 Esophagitis, unspecified without bleeding; R33.9 Retention of urine, unspecified; Z66 Do not resuscitate; Z99.11 Dependence on respirator [ventilator] status; J90 Pleural effusion, not elsewhere classified; L89.892 Pressure ulcer of other site, stage 2; E86.0 Dehydration; R62.7 Adult failure to thrive; J69.0 Pneumonitis due to inhalation of food and vomit; E87.0 Hyperosmolality and hypernatremia; D50.9 Iron deficiency anemia, unspecified; R57.1 Hypovolemic shock; J96.01 Acute respiratory failure with hypoxia; J15.212 Pneumonia due to Methicillin resistant Staphylococcus aureus; E87.1 Hypo-osmolality and hyponatremia; B37.49 Other urogenital candidiasis; Z86.73 Personal history of transient ischemic attack (TIA), and cerebral infarction without residual deficits; Z95.2 Presence of prosthetic heart valve; I25.10 Atherosclerotic heart disease of native coronary artery without angina pectoris; A41.02 Sepsis due to Methicillin resistant Staphylococcus aureus; Z95.1 Presence of aortocoronary bypass graft; L89.151 Pressure ulcer of sacral region, stage 1; R77.8 Other specified abnormalities of plasma proteins; G31.83 Neurocognitive disorder with Lewy bodies; R65.21 Severe sepsis with septic shock; G93.41 Metabolic encephalopathy; Z95.0 Presence of cardiac pacemaker; E87.20 Acidosis, unspecified; F02.80 Dementia in other diseases classified elsewhere, unspecified severity, without behavioral disturbance, psychotic disturbance, mood disturbance, and anxiety; K22.4 Dyskinesia of esophagus; E43 Unspecified severe protein-calorie malnutrition; N17.0 Acute kidney failure with tubular necrosis